=== PATIENT | male | born 1970 | race Caucasian/White ===

== ENCOUNTER 2020-05-02 12:05 | Outpatient (REF) | payer MEDICARE, MEDICAID, SELFPAY ==
--- NOTE | 2020-05-02 12:14 | XR_ITS ---
EXAMINATION: XR HIP, RIGHT CLINICAL INFORMATION: Evaluate for arthritis COMPARISON: Previous x-ray most recent March 2018 TECHNIQUE: Two views the of the right hip and one view of the pelvis. FINDINGS: No fracture or dislocation is seen. There is increasing moderate to severe arthritis of the right hip joint with joint space narrowing, osteophyte formation and subchondral cyst formation. This is significantly increased from 2018 exam. There is mild arthritis at the left hip joint with joint space narrowing and osteophyte formation. Bones of the pelvis are unremarkable. There may be a transitional vertebral body segment or sacralization of the L5 transverse processes. Soft tissues are unremarkable. IMPRESSION: Significant interval increase in right hip arthritis from 2018 exam.
== END 2020-05-02 12:06 | disposition home or self-care (01) ==
LOC: HO.XRAY 12:05
PROVIDERS: PCP Family Medicine; Visit Provider Physical Medicine & Rehabilitation
DX: M16.11 Unilateral primary osteoarthritis, right hip (principal)
CPT/HCPCS: 73502

== ENCOUNTER → 2020-05-22 14:23 | Outpatient (BNVA) | payer MEDICARE, MEDICAID, SELFPAY | PROVIDERS: PCP Family Medicine; Visit Provider Surgery | DX: M25.551 Pain in right hip (principal); G89.29 Other chronic pain; Z87.19 Personal history of other diseases of the digestive system | CPT/HCPCS: 99212 ==

== ENCOUNTER 2020-07-26 19:37 | Emergency (ER) | payer MEDICARE, MEDICAID, SELFPAY ==
--- NOTE | 2020-07-26 | ECG_ITS ---
Test Reason : CP Blood Pressure : / mmHG Vent. Rate : 058 BPM Atrial Rate : 058 BPM P-R Int : 150 ms QRS Dur : 102 ms QT Int : 444 ms P-R-T Axes : 066 044 035 degrees QTc Int : 435 ms Sinus bradycardia Possible Left atrial enlargement Incomplete right bundle branch block Borderline ECG When compared with ECG of 29-SEP-2015 12:39, No significant change was found Referred By: Klesie Bolanos Electronically Signed By:Vin Wright
[2020-07-26 19:41] VITALS: BP 137/79; PULSE 63; RESP 16; TEMP 36.5; O2SAT 97; BMI 25.2
--- NOTE | 2020-07-26 19:42 | XR_ITS ---
EXAMINATION: XR CHEST CLINICAL INFORMATION: Chest pain. COMPARISON: Chest and rib radiographs dated 03/19/2010. TECHNIQUE: Frontal view of the chest was obtained. FINDINGS: No focal airspace consolidation. No pleural effusion or pneumothorax. Unremarkable cardiomediastinal silhouette. No acute osseous abnormality. XR/XR chest 1V IMPRESSION: Unremarkable examination.
--- NOTE | 2020-07-26 19:44 | ED_ITS ---
HPI - Chest Pain General Chief Complaint: Chest Pain Stated Complaint: CP Time Seen by Provider: 07/26/20 19:44 Source: patient and EMS Mode of arrival: EMS Limitations: no limitations History of Present Illness MD complaint: chest pain Pertinent past history: other (started 2 hours after using cocaine) Onset (ago): minute(s) (20 minutes prior to arrival ) Timing of current episode: constant Prior episodes: No Onset: associated with drug use Pain location: left chest Pain radiation: none Severity: moderate Quality: heaviness Relieving factors: nothing Exacerbating factors: nothing Associated symptoms: dyspnea Treatment prior to arrival: aspirin (324mg with EMS) Related Data Home Medications Medication Instructions Recorded Confirmed clonazepam 1 mg tablet 1 mg PO QAM 05/22/20 gabapentin 600 mg tablet 600 mg PO TID 05/22/20 methadone 40 mg soluble tablet 50 mg PO DAILY tab 05/22/20 Allergies Allergy/AdvReac Type Severity Reaction Status Date / Time No Known Allergies Allergy Verified 05/22/20 14:32 Review of Systems Review of Systems: Constitutional : No Weight loss, No Fever, No Chills ENT/Mouth : No sore throat, No Rhinorrhea Eyes: No Eye Pain, No Swelling Cardiovascular : pos Chest Pain, pos SOB, no Dyspnea on Exertion, No Orthopnea, No Edema, No Palpitations Respiratory : No Cough, No Sputum Gastrointestinal : pos Nausea, No Vomiting, No Diarrhea, No abdominal Pain, No Hematochezia, No Melena Genitourinary : No Dysuria, No Urinary Frequency Musculoskeletal : No joint pain, No Myalgias, No Joint Swelling Skin : No Skin Lesions, No rash Neuro : No Weakness, No Numbness, No Dizziness, No Headache Psych : pos Anxiety/Panic, No Depression Heme/Lymph: No Bruising, No Lymphadenopathy Endocrine : No Polyuria, No Polydipsia All other systems reviewed and are negative PMFSH Past Medical History Attestation statement: The following information was validated with the patient. Source: old records reviewed Medical History Anxiety Chronic anemia Chronic back pain Chronic right hip pain Degenerative disc disease History of alcohol abuse History of hepatitis C Surgical History History of laminectomy History of right inguinal hernia repair Social History Social History (Updated 07/26/20 @ 19:45 by Kelsie Bolanos DO) Alcohol intake: former Smoking Status: Current every day smoker Use of substances other than those prescribed or required for medical reasons: Yes Substance Use Type: Amphetamines and Crack/Cocaine Advance Directives: No Advance Directives Information Provided: Yes Physical Exam Vital Signs: Vital Signs: Last Vital Signs Temp 97.5 F 07/26/20 22:36 Pulse 46 L 07/26/20 22:36 Resp 16 07/26/20 22:36 BP 134/74 07/26/20 22:36 Pulse Ox 100 07/26/20 22:36 Body Mass Index 25.2 Appearance: Alert. Oriented X3. No acute distress. Anxious intermittent a gitation Eyes: Pupils equal, round and reactive to light. ENT: Pharynx normal. Neck: Normal inspection. Neck supple. CVS: Normal heart rate and rhythm. Pulses normal. Respiratory: No respiratory distress. Breath sounds normal. Abdomen: Soft and non-tender. Skin: Skin warm and dry. Normal skin color. Normal skin turgor. Extremities: No lower extremity edema. No calf ttp Neuro: Oriented X 3. No motor deficit. No sensory deficit. Course Course Course Narrative: delta troponin negative, stable for DC, improved with ativan MDM - Chest Pain MDM Narrative Medical decision making narrative: 50 yo male with substance abuse issues, chronic pain syndrome, here with chest pain after using cocaine 2 hours ago - his lung are clear VS stable, not tachycardic, given ASA by EMS at this time will obtain troponin x 2, CXR, ddimer, CXR, IV ativan for anxiety, no radiation to pain distal pulses intact dissection seems unlikey and he is not HTNive or tachycardic on arrival Lab Data Result diagrams: 07/26/20 19:50 07/26/20 19:50 Labs: Lab Results 07/26/20 07/26/20 07/26/20 Range/Units 19:50 19:50 19:50 WBC 4.6 L (4.8-10.8) X10*3/uL RBC 4.62 (4.60-5.80) X10*6/uL Hgb 13.8 L (14.0-18.0) g/dl Hct 42.5 (42-52) % MCV 92.0 (80-98) fL MCH 29.9 (27.0-33.0) pg MCHC 32.5 (31.0-36.0) g/dl RDW 11.8 (11.0-16.0) % Plt Count 117 L (160-400) X10*3/uL MPV 10.7 (9.4-12.4) fL Immature Gran % (Auto) 0.7 H (0.0-0.4) % Neut % (Auto) 71.7 (45-73) % Lymph % (Auto) 17.1 L (20-40) % [place] % (Auto) 9.9 (2-11) % Eos % (Auto) 0.4 (0-4) % Baso % (Auto) 0.2 (0-2) % Lymph # (Auto) 0.8 L (1.2-4.9) X10*3/uL [place] # (Auto) 0.5 (0.1-1.2) X10*3/uL Eos # (Auto) 0.0 (0.0-0.4) X10*3/uL Baso # (Auto) 0.0 (0.0-0.2) X10*3/uL Abs Immat Gran (auto) 0.03 (0.00-0.03) X10*3/uL Absolute Neuts (auto) 3.3 (2.0-8.3) X10*3/uL Absolute Nucleated RBC 0.000 (0.0-0.012) X10*3/uL Nucleated RBC % (auto) 0.0 (0.0-0.2) /100WBC Smear Tech's Comments VERIFIED PT Cancelled INR Cancelled APTT Cancelled D-Dimer Cancelled Sodium 141 (135-145) mmol/L Potassium 4.0 (3.3-5.1) mmol/l Chloride 102 (96-108) mmol/L Carbon Dioxide 30 H (22-29) mmol/L Anion Gap 13 (12-20) BUN 14 (9-16) mg/dL Creatinine 1.00 (0.5-1.4) mg/dL Estim Creat Clear Calc 92.0 Estimated GFR > 60 Random Glucose 106 (60-115) mg/dL Calcium 8.8 (8.4-10.2) mg/dL Magnesium 1.6 (1.6-2.6) mg/dL Total Bilirubin < 0.2 (0.0-1.0) mg/dL Direct Bilirubin < 0.2 (0.0-0.5) mg/dL AST 22 (5-37) U/L ALT 17 (0-40) U/L Alkaline Phosphatase 134 H (39-117) U/L Total Creatine Kinase 102 (38-174) U/L Troponin I High Sens (<3.5-35.0) ng/L Total Protein 7.4 (6.5-8.0) g/dL Albumin 4.7 (3.5-5.0) g/dL Lipase 22 (8-78) U/L Ethyl Alcohol mg/dL COVID-19 ([facility]) (Negative) COVID-19 Clin Com 07/26/20 07/26/20 07/26/20 Range/Units 19:50 19:50 19:50 WBC (4.8-10.8) X10*3/uL RBC (4.60-5.80) X10*6/uL Hgb (14.0-18.0) g/dl Hct (42-52) % MCV (80-98) fL MCH (27.0-33.0) pg MCHC (31.0-36.0) g/dl RDW (11.0-16.0) % Plt Count (160-400) X10*3/uL MPV (9.4-12.4) fL Immature Gran % (Auto) (0.0-0.4) % Neut % (Auto) (45-73) % Lymph % (Auto) (20-40) % [place] % (Auto) (2-11) % Eos % (Auto) (0-4) % Baso % (Auto) (0-2) % Lymph # (Auto) (1.2-4.9) X10*3/uL [place] # (Auto) (0.1-1.2) X10*3/uL Eos # (Auto) (0.0-0.4) X10*3/uL Baso # (Auto) (0.0-0.2) X10*3/uL Abs Immat Gran (auto) (0.00-0.03) X10*3/uL Absolute Neuts (auto) (2.0-8.3) X10*3/uL Absolute Nucleated RBC (0.0-0.012) X10*3/uL Nucleated RBC % (auto) (0.0-0.2) /100WBC Smear Tech's Comments PT INR APTT D-Dimer Sodium (135-145) mmol/L Potassium (3.3-5.1) mmol/l Chloride (96-108) mmol/L Carbon Dioxide (22-29) mmol/L Anion Gap (12-20) BUN (9-16) mg/dL Creatinine (0.5-1.4) mg/dL Estim Creat Clear Calc Estimated GFR Random Glucose (60-115) mg/dL Calcium (8.4-10.2) mg/dL Magnesium (1.6-2.6) mg/dL Total Bilirubin (0.0-1.0) mg/dL Direct Bilirubin (0.0-0.5) mg/dL AST (5-37) U/L ALT (0-40) U/L Alkaline Phosphatase (39-117) U/L Total Creatine Kinase (38-174) U/L Troponin I High Sens 4.8 (<3.5-35.0) ng/L Total Protein (6.5-8.0) g/dL Albumin (3.5-5.0) g/dL Lipase (8-78) U/L Ethyl Alcohol < 10 mg/dL COVID-19 ([facility]) Positive A (Negative) COVID-19 Clin Com See Note 07/26/20 07/26/20 Range/Units 20:45 22:43 WBC (4.8-10.8) X10*3/uL RBC (4.60-5.80) X10*6/uL Hgb (14.0-18.0) g/dl Hct (42-52) % MCV (80-98) fL MCH (27.0-33.0) pg MCHC (31.0-36.0) g/dl RDW (11.0-16.0) % Plt Count (160-400) X10*3/uL MPV (9.4-12.4) fL Immature Gran % (Auto) (0.0-0.4) % Neut % (Auto) (45-73) % Lymph % (Auto) (20-40) % [place] % (Auto) (2-11) % Eos % (Auto) (0-4) % Baso % (Auto) (0-2) % Lymph # (Auto) (1.2-4.9) X10*3/uL [place] # (Auto) (0.1-1.2) X10*3/uL Eos # (Auto) (0.0-0.4) X10*3/uL Baso # (Auto) (0.0-0.2) X10*3/uL Abs Immat Gran (auto) (0.00-0.03) X10*3/uL Absolute Neuts (auto) (2.0-8.3) X10*3/uL Absolute Nucleated RBC (0.0-0.012) X10*3/uL Nucleated RBC % (auto) (0.0-0.2) /100WBC Smear Tech's Comments PT 14.4 H INR 1.2 H APTT 32.8 D-Dimer < 200 Sodium (135-145) mmol/L Potassium (3.3-5.1) mmol/l Chloride (96-108) mmol/L Carbon Dioxide (22-29) mmol/L Anion Gap (12-20) BUN (9-16) mg/dL Creatinine (0.5-1.4) mg/dL Estim Creat Clear Calc Estimated GFR Random Glucose (60-115) mg/dL Calcium (8.4-10.2) mg/dL Magnesium (1.6-2.6) mg/dL Total Bilirubin (0.0-1.0) mg/dL Direct Bilirubin (0.0-0.5) mg/dL AST (5-37) U/L ALT (0-40) U/L Alkaline Phosphatase (39-117) U/L Total Creatine Kinase (38-174) U/L Troponin I High Sens 7.0 (<3.5-35.0) ng/L Total Protein (6.5-8.0) g/dL Albumin (3.5-5.0) g/dL Lipase (8-78) U/L Ethyl Alcohol mg/dL COVID-19 ([facility]) (Negative) COVID-19 Clin Com ECG Data ECG #1: Attestation: I personally reviewed and interpreted this ECG as follows: ECG interpretation date: 07/26/20 ECG interpretation time: 19:48 Interpretation: Rate: 58 Rhythm: sinus bradycardia [facility]: normal Normal P waves. Normal EMIR. incomplete RBBB ST T wave : no KARO qTC: normal prior studies: no acute ischemia The study has been interpreted contemporaneously by me. . Discharge Plan Discharge Clinical Impression: Atypical chest pain, COVID-19, Cocaine abuse Patient Disposition: Home, Self-Care Instructions: Chest Pain (ED), Cocaine Abuse (ED), COVID-19 (Coronavirus D isease 2019) (ED) Additional Instructions: return to ED for any worsening symptoms or concerns Prescriptions: No Action clonazepam 1 mg tablet 1 mg PO QAM RF: 0 gabapentin 600 mg tablet 600 mg PO TID RF: 0 methadone 40 mg tablet,soluble 50 mg PO DAILY RF: 0 Stand Alone Forms: Work/School Release
[2020-07-26] MEDS: ondansetron HCL 4 MG/2 ML VIAL IVPUSH (19:52)
[2020-07-26] MEDS: 0.9 % Sodium Chloride 1,000 ML 999 ML IVCONT ×2 (19:52→22:12)
[2020-07-26] MEDS: LORazepam 2 MG/ML VIAL 1 MG IVPUSH (19:53)
[2020-07-26 20:00] LABS: Basophils Percent Auto 0.2 % (0-2); Eosinophils Percent Auto 0.4 % (0-4); Hemoglobin 13.8 g/dl (14.0-18.0); MANUAL DIFF FLAG SCAN; PLT CLUMP 1; Red Cell Distribution Width 11.8 % (11.0-16.0); SCAN SMEAR FLAG 1
[2020-07-26 20:03] LABS: Hematocrit 42.5 % (42-52); Imm Gran Abs Auto 0.03 X10*3/uL (0.00-0.03); Imm Gran Pct Auto 0.7 % (0.0-0.4); Lymphocytes Absolute Auto 0.8 X10*3/uL (1.2-4.9); Lymphocytes Percent Auto 17.1 % (20-40); Mean Corpuscular HGB Conc 32.5 g/dl (31.0-36.0); Mean Corpuscular Hemoglobin 29.9 pg (27.0-33.0); Mean Platelet Volume 10.7 fL (9.4-12.4); Monocytes Absolute Auto 0.5 X10*3/uL (0.1-1.2); Monocytes Percent Auto 9.9 % (2-11); Neutrophils Absolute Auto 3.3 X10*3/uL (2.0-8.3); Neutrophils Percent Auto 71.7 % (45-73); Platelet Count 117 X10*3/uL (160-400); Red Blood Count 4.62 X10*6/uL (4.60-5.80); White Blood Count 4.6 X10*3/uL (4.8-10.8)
[2020-07-26 20:04] LABS: COVID-19 Test Positive (Negative)
[2020-07-26 20:20] LABS: Ethanol < 10 mg/dL
--- NOTE | 2020-07-26 20:21 | MHC.RECOVSUP ---
Reason for consult o Current location: o Identified substance use concern: Cocaine - - - - Support ? Intervention: o o o Community resources provided o Harm reduction discussion ? Plan: o o o Follow up tomorrow o o Patient to follow up with H after discharge ? Additional information: I was able to speak with pt about recovery and harm reduction. pt came in with medical conditions but requested to speak with someone who could identify with him pertaining to his drug use. pt not interested in ATS but was receptive to recovery information and is open to vivitrol. couldn't continue talking with him because he was taken to Covid section.
[2020-07-26 20:31] LABS: Alanine Aminotransferase 17 U/L (0-40); Albumin Level 4.7 g/dL (3.5-5.0); Alkaline Phosphatase 134 U/L (39-117); Anion Gap 13 (12-20); Aspartate Amino Transferase 22 U/L (5-37); Bilirubin Direct < 0.2 mg/dL (0.0-0.5); Bilirubin Total < 0.2 mg/dL (0.0-1.0); Blood Urea Nitrogen 14 mg/dL (9-16); Calcium 8.8 mg/dL (8.4-10.2); Carbon Dioxide 30 mmol/L (22-29); Chloride 102 mmol/L (96-108); Estimated Glomerular Filt Rate > 60; Glucose Random 106 mg/dL (60-115); Lipase 22 U/L (8-78); Magnesium 1.6 mg/dL (1.6-2.6); Sodium 141 mmol/L (135-145); Total Protein 7.4 g/dL (6.5-8.0)
[2020-07-26 20:35] LABS: SLIDE REVIEW VERIFIED; Troponin-I High Sensitivity 4.8 ng/L (<3.5-35.0)
[2020-07-26 20:36] VITALS: BP 112/61; PULSE 45; RESP 14
--- NOTE | 2020-07-26 20:38 | PC.NURSE ---
sleeping after arrival to E3, covid isolation. SB on monitor. skin pwd. no diahoresis. arousable to light touch. pupils 5mm, sluggish. aware of need for lab redraw.
[2020-07-26 20:58] LABS: INTERNATIONAL NORM RATIO 1.2 (0.9-1.1); Prothrombin Time 14.4 SEC (10.8-13.0)
[2020-07-26 21:01] LABS: Partial Thromboplastin Time 32.8 SEC (24.1-38.0)
[2020-07-26 21:06] LABS: D Dimer < 200 NG/ML
[2020-07-26 21:30] VITALS: BP 103/55; PULSE 41; RESP 16; O2SAT 98
--- NOTE | 2020-07-26 22:08 | PC.NURSE ---
sleeping. skin pwd/ arrousable to light touch.
[2020-07-26 22:36] VITALS: BP 134/74; PULSE 46; RESP 16; TEMP 36.4; O2SAT 100
[2020-07-26 23:34] VITALS: BP 126/68; PULSE 47; RESP 16; O2SAT 97
== END 2020-07-26 23:30 | disposition home or self-care (01) ==
PROVIDERS: Emergency Provider Emergency Medicine
DX: U07.1 COVID-19 (principal); R07.89 Other chest pain; F14.10 Cocaine abuse, uncomplicated; F17.200 Nicotine dependence, unspecified, uncomplicated
CPT/HCPCS: 36415; 71045; 80048; 80076; 80320; 82550; 83690; 83735; 84484; 85025; 85379; 85610; 85730; 87635; 93005; 96361; 96374; 96375; 99284; J2060; J2405

== ENCOUNTER 2021-05-29 10:01 | Outpatient (REF) | payer MEDICARE, MEDICAID, SELFPAY | END 2021-05-29 10:02 | disposition home or self-care (01) | LOC: HO.HOSX 10:01 | PROVIDERS: Visit Provider Physician Assistant | DX: Z13.89 Encounter for screening for other disorder (principal) ==

== ENCOUNTER 2021-06-15 13:27 | Emergency (ER) | payer MEDICARE, MEDICAID, SELFPAY ==
--- NOTE | ~2021-06-15 | CT_ITS ---
EXAMINATION: CT HIP WITHOUT CONTRAST, RIGHT CLINICAL INFORMATION: Right hip pain, status post fall. COMPARISON: None TECHNIQUE: 2 minutes thin axial and reformatted 1 mm thin sagittal and coronal images of right hip were obtained. This CT examination was performed using dose optimization techniques as appropriate, variously including the following: *Automated exposure control *Adjustment of mA and/or kV according to patient size (this includes techniques or standardized protocols for targeted exams where dose is matched to indication/reason for exam; i.e. extremities or head) *Use of iterative reconstruction technique DLP: 311 mGy-cm FINDINGS: There is mild loss of right hip joint space with subchondral cystic changes consistent with advanced osteoarthritis. There is no visible acute fracture, dislocation or deformity involving the femoral head. Visualized right pelvic bones and pubic symphysis appears normal. There are hyperdense areas seen in the right lateral hip musculature likely tensor fascia nkechi consistent with hemorrhagic contusion. Also visualized is mild soft tissue edema lateral hip. CT/CT hip RT wo con IMPRESSION: Degenerative arthritic changes right hip joint. No visible acute fracture or dislocation. Hemorrhagic contusion right tensor fascia nkechi and mild soft tissue swelling lateral hip.
[2021-06-15 13:39] VITALS: BP 148/70; PULSE 86; RESP 18; TEMP 36.8; O2SAT 98; BMI 25.1
--- NOTE | 2021-06-15 13:41 | ED_ITS ---
HPI - Fall General Chief Complaint: Fall Stated Complaint: FALL W/R HIP PAIN, HX OF HIP PAIN W/PLANNED SURG Time Seen by Provider: 06/15/21 13:40 Source: patient Mode of arrival: ambulatory Limitations: no limitations History of Present Illness complaint: fall Onset (ago): day(s) (3) Fall from: standing Fall witnessed: no Place fall occurred: home Loss of consciousness: none Prolonged down time: no Symptoms prior to fall: none Context: tripped/slipped Location of injury: pelvis (R hip/ buttock) Severity: moderate Quality: aching Associated symptoms (after fall): other (hard to walk now reports a big bruise in area) Related Data Home Medications Medication Instructions Recorded Confirmed clonazepam 1 mg tablet 1 mg PO QAM 05/22/20 gabapentin 600 mg tablet 600 mg PO TID 05/22/20 methadone 40 mg soluble tablet 50 mg PO DAILY tab 05/22/20 Previous Rx's Medication Instructions Recorded morphine 15 mg immediate release 15 mg PO Q6H PRN 2 Days #8 tab 06/15/21 tablet Allergies Allergy/AdvReac Type Severity Reaction Status Date / Time No Known Allergies Allergy Verified 05/22/20 14:32 Review of Systems Review of Systems: Constitutional : No Fever, No Chills ENT/Mouth : No Ear Pain, No Hoarseness, No sore throat Eyes: No Eye Pain, No Swelling, No Redness, No Foreign Body Cardiovascular : No Chest Pain, No SOB Respiratory : No Cough, No Dyspnea Gastrointestinal : No Nausea, No Vomiting, No Diarrhea, No abdominal Pain Genitourinary : No Dysuria, No Hematuria Musculoskeletal : positive joint pain, No Myalgias, No Joint Swelling Skin : No Skin lacerations, No rash, pos contusion Neuro : No Weakness, No Numbness, No Loss of Consciousness, No Dizziness, No Headache Psych : No Anxiety/Panic, No Depression Heme/Lymph: no easy bruising, no Lymphadenopathy Endocrine : No Polyuria, No Polydipsia All other systems reviewed and are negative [facility] Past Medical History Attestation statement: The following information was validated with the patient. Medical History Anxiety Chronic anemia Chronic back pain Chronic right hip pain Degenerative disc disease History of alcohol abuse History of hepatitis C Surgical History History of laminectomy History of right inguinal hernia repair Social History Social History (Updated 06/15/21 @ 13:42 by Kelsie Bolanos DO) Alcohol intake: never Patient Tobacco Use Status: Tobacco use Unknown Use of substances other than those prescribed or required for medical reasons: No Substance Use Type: Amphetamines and Crack/Cocaine Advance Directives: No Advance Directives Information Provided: No Physical Exam Vital Signs: Vital Signs: Last Vital Signs Temp 98.3 F 06/15/21 13:39 Pulse 86 06/15/21 13:39 Resp 18 06/15/21 13:39 BP 148/70 H 06/15/21 13:39 Pulse Ox 98 06/15/21 13:39 Body Mass Index 25.1 Appearance: Alert. Oriented X3. No acute distress. Eyes: Pupils equal, round and reactive to light. ENT: Pharynx normal. Neck: Normal inspection. Neck supple. CVS: Normal heart rate and rhythm. Pulses normal. Respiratory: No respiratory distress. Breath sounds normal. Abdomen: Soft and nontender. Buttock: large contusion on R buttock near sacrum as well Skin: Skin warm and dry. Normal skin color. Normal skin turgor. Extremities: No lower extremity edema. R hip moderate ttp limping gait Neuro: Oriented X 3. No motor deficit. No sensory deficit. Course Course Course Narrative: no fracture it is a hip contusion, H/H 10.6 no need for transfusion will DC him home and instruct repeat CBC in 48 hours with PCP MDM - Fall MDM Narrative Medical decision making narrative: 51 yo male with PMH of arthritis, hep C, anxiety here after mechanical fall at this time reports R hip pain with contusion will need cbc, CT scan for fracture / hematoma size PO medications he is on methadone at this time. Dispo per results and findings. Lab Data Result diagrams: 06/15/21 13:58 Labs: Lab Results 06/15/21 Range/Units 13:58 WBC 6.0 (4.8-10.8) X10*3/uL RBC 3.63 L (4.60-5.80) X10*6/uL Hgb 10.6 L (14.0-18.0) g/dl Hct 33.2 L (42.0-52.0) % MCV 91.5 (80.0-98.0) fL MCH 29.2 (27.0-33.0) pg MCHC 31.9 (31.0-36.0) g/dl RDW 11.9 (11.0-16.0) % Plt Count 187 (160-400) X10*3/uL MPV 9.8 (9.4-12.4) fL Absolute Nucleated RBC 0.000 (0.0-0.012) X10*3/uL Nucleated RBC % (auto) 0.0 (0.0-0.2) /100WBC Discharge Plan Discharge Clinical Impression: Contusion of hip Qualifiers: Encounter type: initial encounter Laterality: right Qualified Code(s): S70.01XA - Contusion of right hip, initial encounter Patient Disposition: Home, Self-Care Instructions: Hip Contusion (ED) Additional Instructions: return to ED for any worsening symptoms or concerns hemoglobin 10.6 - repeat CBC with primary care in 2 days Prescriptions: New morphine 15 mg tablet 15 mg PO Q6H PRN (Reason: pain) 2 Days Qty: 8 RF: 0 No Action clonazepam 1 mg tablet 1 mg PO QAM RF: 0 gabapentin 600 mg tablet 600 mg PO TID RF: 0 methadone 40 mg tablet,soluble 50 mg PO DAILY RF: 0 Referrals: Zahraa Roca DO [Primary Care Provider] - 2 days
[2021-06-15] MEDS: Morphine Sulfate Immed Release 15 MG TABLET PO (13:54)
[2021-06-15 14:03] LABS: Hematocrit 33.2 % (42.0-52.0); Hemoglobin 10.6 g/dl (14.0-18.0); Mean Corpuscular HGB Conc 31.9 g/dl (31.0-36.0); Mean Corpuscular Hemoglobin 29.2 pg (27.0-33.0); Mean Corpuscular Volume 91.5 fL (80.0-98.0); Mean Platelet Volume 9.8 fL (9.4-12.4); Platelet Count 187 X10*3/uL (160-400); Red Blood Count 3.63 X10*6/uL (4.60-5.80); Red Cell Distribution Width 11.9 % (11.0-16.0)
[2021-06-15] MEDS: clonazePAM 1 MG TABLET PO (15:56)
== END 2021-06-15 17:09 | disposition home or self-care (01) ==
PROVIDERS: Emergency Provider Emergency Medicine; PCP Family Medicine
DX: S70.01XA Contusion of right hip, initial encounter (principal); W19.XXXA Unspecified fall, initial encounter; Y93.9 Activity, unspecified; Y92.039 Unspecified place in apartment as the place of occurrence of the external cause; Y99.9 Unspecified external cause status
CPT/HCPCS: 36415; 73700; 85027; 99284

== ENCOUNTER 2021-06-29 08:33 | Outpatient (REF) | payer MEDICARE, MEDICAID, SELFPAY | END 2021-06-29 08:34 | disposition home or self-care (01) | LOC: HO.HOSX 08:33 | PROVIDERS: Visit Provider Orthopaedic Surgery | DX: Z13.89 Encounter for screening for other disorder (principal) ==

== ENCOUNTER → 2021-07-16 12:51 | Outpatient (BNVA) | payer MEDICARE, MEDICAID, SELFPAY | PROVIDERS: PCP Family Medicine; Visit Provider Orthopaedic Surgery | DX: M16.11 Unilateral primary osteoarthritis, right hip (principal) | CPT/HCPCS: 99202 ==

== ENCOUNTER 2021-10-05 10:59 | Emergency (ER) | payer MEDICARE, MEDICAID, SELFPAY ==
--- NOTE | ~2021-10-05 | XR_ITS ---
EXAMINATION: XR WRIST, RIGHT CLINICAL INFORMATION: Fall. Pain. COMPARISON: Previous x-ray March 2019 TECHNIQUE: PA, lateral, and oblique views of the right wrist. FINDINGS: No acute fracture or dislocation is seen. There is accessory ossification center versus old ununited fracture of the ulnar styloid. There is arthritis at the radiocarpal joint with joint space narrowing and osteophyte formation. There may be dorsal tilt of the lunate and ulnar minus variance. Soft tissues are unremarkable. XR/XR wrist RT 2V IMPRESSION: No acute fracture or dislocation. Degenerative changes at the radiocarpal joint. Question dorsal tilt of the lunate.
[2021-10-05 11:40] VITALS: BP 113/58; RESP 16; TEMP 36.3; O2SAT 97; BMI 25.1
--- NOTE | 2021-10-05 11:41 | ED_ITS ---
HPI - Extremity Problem General Chief complaint: Extremity Injury, Upper Stated complaint: r wrist inj Time Seen by Provider: 10/05/21 11:41 Source: patient Mode of arrival: ambulatory Limitations: no limitations History of Present Illness HPI Narrative: wrist pain 5 months ago, patient fell 5 months ago Complaint: extremity pain Onset (ago): month(s) Pain Consistency: constant Location: right Associated symptoms: denies other symptoms Related Data Home Medications Medication Instructions Recorded Confirmed clonazepam 1 mg tablet 1 mg PO QAM 05/22/20 gabapentin 600 mg tablet 600 mg PO TID 05/22/20 methadone 40 mg soluble tablet 50 mg PO DAILY tab 05/22/20 Previous Rx's Medication Instructions Recorded morphine 15 mg immediate release 15 mg PO Q6H PRN 2 Days #8 tab 06/15/21 tablet naproxen 500 mg tablet (Naprosyn) 500 mg PO BID #20 tab 10/05/21 Allergies Allergy/AdvReac Type Severity Reaction Status Date / Time No Known Allergies Allergy Verified 07/16/21 13:00 Review of Systems Constitutional: Constitutional: Reports no additional constitutional complaints Eyes: Eyes: Reports no additional eye complaints ENT: Denies dizziness Cardiovascular: Cardiovascular: Reports no additional cardiovascular complaints Respiratory: Respiratory: Reports as per HPI Gastrointestinal: Gastrointestinal: Reports no additional gastrointestinal complaints Musculoskeletal: Musculoskeletal: Reports no additional musculoskeletal complaints Integumentary/Breasts: Skin/Breast: Denies rash Neurologic: Reports system reviewed and no additional complaints, except as documented, Denies dizziness and Denies Sensory deficit (Neuro) Psychiatric: Psychiatric: Denies anxiety PMFSH Past Medical History Medical History Anxiety Chronic anemia Chronic back pain Chronic right hip pain Degenerative disc disease History of alcohol abuse History of hepatitis C Surgical History History of laminectomy History of right inguinal hernia repair Social History Social History Alcohol intake: never Patient Tobacco Use Status: Tobacco use Unknown Substance Use Type: Amphetamines and Crack/Cocaine Advance Directives: No Advance Directives Information Provided: No Physical Exam Vital Signs: Vital Signs: Last Vital Signs Temp 97.4 F 10/05/21 11:40 Resp 16 10/05/21 11:40 BP 113/58 L 10/05/21 11:40 Pulse Ox 97 10/05/21 11:40 BMI result Body Mass Index 25.1 Const: General: healthy appearing Nutritional Appearance: average body hab itus Orientation/consciousness: oriented to person and patient oriented x3 Limitations: no limitations HENMT: Head: Yes normal to inspection Ears: external ears normal General nose exam: Normal external nose present Mouth: Normal oral and palatal mucosa present and oropharynx normal Throat: Yes posterior oropharynx normal Eyes: General: appearance normal, both eyes and all related structures Neck: Other: supple Neck: Yes normal visual inspection GI: Inspection: Yes normal to inspection Palpation (GI): Soft to palpation, nontender and No hepatosplenomegaly present Auscultation: normal bowel sounds : General: Yes no CVA tenderness Back/Spine/Pelvis: Back: no CVA tenderness Skin: General skin exam: no rashes or lesions noted Neuro: General: oriented to person and patient oriented x3 Cranial nerves: Yes CN's II-XII intact bilaterally Motor exam (neuro): 5/5 motor strength present throughout Sensory Exam: No Sensory deficit (Neuro) Extrem: Other: right wrist with slight swelling and tenderness, no erythema Psych: Appearance: grossly normal Course Reevaluation(s) Reevaluation #1: No healed fracture. There is arthritis to the wrist Time: 12:37 MDM - Extremity (Nontraumatic) Imaging Data wrist: Radiologist's impression: IMPRESSION: No acute fracture or dislocation. Degenerative changes at the radiocarpal joint. Question dorsal tilt of the lunate. Discharge Plan Discharge Clinical Impression: Arthritis of right wrist Patient Disposition: Home, Self-Care Instructions: Osteoarthritis (DC) Prescriptions: New naproxen [Naprosyn] 500 mg tablet 500 mg PO BID Qty: 20 0RF No Action morphine 15 mg tablet 15 mg PO Q6H PRN (Reason: pain) 2 Days Qty: 8 0RF clonazepam 1 mg tablet 1 mg PO QAM 0RF gabapentin 600 mg tablet 600 mg PO TID 0RF methadone 40 mg tablet,soluble 50 mg PO DAILY 0RF Referrals: Zahraa Roca DO [Primary Care Provider] - 10 days Jones Nichols MD [Physician] - 10 days
== END 2021-10-05 13:10 | disposition home or self-care (01) ==
PROVIDERS: Emergency Provider Emergency Medicine; PCP Family Medicine
DX: M19.031 Primary osteoarthritis, right wrist (principal); M25.531 Pain in right wrist; B19.20 Unspecified viral hepatitis C without hepatic coma; F10.10 Alcohol abuse, uncomplicated; Y90.9 Presence of alcohol in blood, level not specified
CPT/HCPCS: 73100; 99283

== ENCOUNTER → 2021-10-06 09:42 | Outpatient (BNVA) | payer MEDICARE, MEDICAID, SELFPAY | PROVIDERS: PCP Family Medicine; Visit Provider Orthopaedic Surgery | DX: Z13.89 Encounter for screening for other disorder (principal) ==

== ENCOUNTER → 2021-10-22 09:41 | Outpatient (BNVA) | payer MEDICARE, MEDICAID, SELFPAY | PROVIDERS: PCP Family Medicine; Visit Provider Physician Assistant | DX: Z13.89 Encounter for screening for other disorder (principal) ==

== ENCOUNTER 2021-12-23 | Outpatient (REF) | payer MEDICARE, MEDICAID, SELFPAY | END 2021-12-23 00:01 | LOC: CF | PROVIDERS: PCP Family Medicine; Visit Provider Physician Assistant | DX: M16.11 Unilateral primary osteoarthritis, right hip (principal); G89.29 Other chronic pain; M54.9 Dorsalgia, unspecified; F10.11 Alcohol abuse, in remission; F14.20 Cocaine dependence, uncomplicated; Z86.19 Personal history of other infectious and parasitic diseases | CPT/HCPCS: 99212 ==

== ENCOUNTER 2022-04-12 10:55 | Outpatient (REF) | payer MEDICARE, MEDICAID, SELFPAY ==
[2022-04-12 11:17] LABS: MANUAL DIFF FLAG NO
[2022-04-12 11:43] LABS: Basophils Percent Auto 0.3 % (0-2); Eosinophils Percent Auto 0.3 % (0-4); Hemoglobin 12.9 g/dl (14.0-18.0); Imm Gran Abs Auto 0.07 X10*3/uL (0.00-0.03); Imm Gran Pct Auto 0.6 % (0.0-0.4); Lymphocytes Absolute Auto 0.9 X10*3/uL (1.2-4.9); Lymphocytes Percent Auto 7.9 % (20-40); Mean Corpuscular HGB Conc 33.1 g/dl (31.0-36.0); Mean Corpuscular Hemoglobin 29.5 pg (27.0-33.0); Mean Corpuscular Volume 89.2 fL (80.0-98.0); Mean Platelet Volume 10.6 fL (9.4-12.4); Monocytes Absolute Auto 0.6 X10*3/uL (0.1-1.2); Neutrophils Absolute Auto 10.1 x10*3/uL (2.0-8.3); Neutrophils Percent Auto 85.9 % (45-73); Platelet Count 157 X10*3/uL (160-400); Red Blood Count 4.37 X10*6/uL (4.60-5.80); White Blood Count 11.7 X10*3/uL (4.8-10.8)
[2022-04-12 12:08] LABS: Anion Gap 15 (12-20); Blood Urea Nitrogen 16 mg/dL (9-16); Calcium 9.1 mg/dL (8.4-10.2); Carbon Dioxide 25 mmol/L (22-29); Chloride 101 mmol/L (96-108); Estimated Glomerular Filt Rate > 60; Glucose Random 120 mg/dL (60-115); Sodium 137 mmol/L (135-145)
[2022-04-12 12:30] LABS: Amphetamine Screen Urine Not Detected (Not Detect); Barbiturates, Urine Not Detected (Not Detect); Benzodiazepines Screen Urine Not Detected (Not Detect); Cannabinoid Screen Urine POSITIVE (Not Detect); Cocaine Screen Urine Not Detected (Not Detect); Fentanyl, urine Not Detected (Not Detect); Opiate Screen Urine Not Detected (Not Detect); Phencyclidine Screen Urine Not Detected (Not Detect)
== END 2022-04-12 10:56 | disposition home or self-care (01) ==
LOC: HO.LAB 10:55
PROVIDERS: PCP Family Medicine; Visit Provider Orthopaedic Surgery
DX: Z13.89 Encounter for screening for other disorder (principal)
CPT/HCPCS: 80048; 80307; 85025

== ENCOUNTER 2022-04-12 11:26 | Emergency (ER) | payer MEDICARE, MEDICAID, SELFPAY ==
[2022-04-12 11:57] VITALS: BP 112/70; PULSE 65; RESP 18; TEMP 36.6; O2SAT 97; BMI 26.4
[2022-04-12 13:42] LABS: Appearance Urine Cloudy; Color Urine Yellow; Glucose Urine UA Negative (Negative); Leukocyte Esterase Urine Moderate (2+) (Negative); Nitrite Urine Negative (Negative); PH 5.5 (5.0-9.0); Specific Gravity - Urine >= 1.030 (1.005-1.025); UMIC TRIGGER UACC YES; Urine Blood Large (3+) (Negative); Urine Ketones Negative (Negative); Urine Protein 30 (1+) mg/dL (Neg-Trace)
--- NOTE | 2022-04-12 13:57 | ED.MALEGU ---
HPI - Male Genitourinary General Chief complaint: Urogenital-Male Stated complaint: Blood in urine Time Seen by Provider: 04/12/22 13:54 Source: patient Mode of arrival: ambulatory Limitations: no limitations History of Present Illness HPI Narrative: 52-year-old male presents to the ER for evaluation of painless hematuria that started yesterday. He reports his urine was light pain without any clots. He reports increased urinary frequency and urgency but denies any pain or burning sensation when he urinates. He denies any urethral discharge. No abdominal pain, nausea, vomiting, diarrhea, fever, chills. He has never had hematuria before. He is not on anticoagulation. He is anxious and it may be a cancer in his bladder. His roommate had history of the same. He denies any sexual activity. MD Complaint: other ( Hematuria with increased urinary frequency and urgency.) Onset (ago): hour(s) Duration: intermittent Location: penis Severity: moderate Relieving factors: none Exacerbating factors: urination Associated symptoms: Reports blood in urine Related Data Sexually active: No Home Medications Medication Instructions Recorded Confirmed clonazepam 1 mg tablet 1 mg PO QAM 05/22/20 10/06/21 gabapentin 600 mg tablet 600 mg PO TID 05/22/20 10/06/21 acetaminophen 650 mg 650 mg PO Q6H PRN fever 10/06/21 10/06/21 tablet,extended release amitriptyline 50 mg tablet 50 mg PO BEDTIME 10/06/21 10/06/21 cyclobenzaprine 10 mg tablet 10 mg PO TID PRN muscle spasm 10/06/21 10/06/21 diclofenac sodium 1 % topical gel 2 g topical BID pain 10/06/21 10/06/21 melatonin 5 mg tablet 10 mg PO 10/06/21 10/06/21 methadone 40 mg soluble tablet 70 mg PO DAILY 10/06/21 10/06/21 Previous Rx's Medication Instructions Recorded morphine 15 mg immediate release 15 mg PO Q6H PRN pain 2 days #8 06/15/21 tablet tabs naproxen 500 mg tablet (Naprosyn) 500 mg PO BID #20 tabs 10/05/21 cefuroxime axetil 250 mg tablet 250 mg PO BID 7 days #20 tabs 04/12/22 Allergies Allergy/AdvReac Type Severity Reaction Status Date / Time No Known Allergies Allergy Verified 10/22/21 10:00 Review of Systems Review of Systems: Constitutional: No Fever, No Chills Cardiovascular: No Chest Pain, No SOB Gastrointestinal: No Nausea, No Vomiting, No Diarrhea, No abdominal Pain, No Hematochezia, No Melena Genitourinary: No Dysuria, No Urinary Frequency, + Hematuria Musculoskeletal: No joint pain, No Myalgias Skin: No Skin Lesions, No rash Neuro: No Weakness, No Numbness, No Dizziness, No Headache Psych: + Anxiety/Panic, No Depression Heme/Lymph: No Bruising, No Lymphadenopathy Endocrine: No Polyuria, No Polydipsia [facility] Past Medical History Medical History (Updated 04/12/22 @ 14:49 by ENOC Holman) Anxiety Chronic anemia Chronic back pain Chronic right hip pain COVID-19 vaccine series completed Degenerative disc disease History of alcohol abuse History of COVID-19 History of hepatitis C Hx of substance abuse Surgical History History of laminectomy History of right inguinal hernia repair Social History Social History Alcohol intake: never Patient Tobacco Use Status: Tobacco use Unknown Substance Use Type: Amphetamines and Crack/Cocaine Advance Directives: No Advance Directives Information Provided: No Physical Exam Vital Signs: Vital Signs: Last Vital Signs Temp 97.9 F 04/12/22 11:57 Pulse 65 04/12/22 11:57 Resp 18 04/12/22 11:57 BP 112/70 04/12/22 11:57 Pulse Ox 97 04/12/22 11:57 O2 Del Method 04/12/22 11:57 BMI result Body Mass Index 26.4 Appearance: Alert. Oriented X3. No acute distress. HEENT: normal inspection CVS: Normal heart rate and rhythm. Pulses normal. Respiratory: No respiratory distress. Skin: Skin warm and dry. Normal skin color. Normal skin turgor. No rashes. ABD: Soft, nontender, no suprapubic tenderness. Extremities: Normal inspection, no lower extremity edema Neuro: Oriented X 3. No motor deficit. No sensory deficit. Ambulates with a limp due to left hip pain. Course Course Course Narrative: 52-year-old male presents to the ER for evaluation of painless hematuria that started today. He reports his urine is light pink and does not have any clots. He has no dysuria or pain with urination but reports having to urinate more frequently and with more urgency. He has no other symptoms. He is not sexually active. His lab workup today shows a mild leukocytosis with WBC 11.7. He has normal kidney function. His urinalysis is consistent with infection with 3+ blood and 2+ leukocyte esterase. Will plan to treat for UTI. Unable to get to the pharmacy today, so will give 1st dose here. He is worried he may to have bladder cancer so will give him Dr. Bell number to arrange Urology follow-up if symptoms persist despite treatment with antibiotics. He does not want to stay for a CT scan and needs to be at the bus for 3pm. He was counseled to return to the ER or call his doctor if symptoms persist. Stable for d/c home with PO abx and outpatient follow up. MDM - Male Genitourinary Lab Data Labs: Lab Results 04/12/22 Range/Units 13:32 Urine Color Yellow Urine Appearance Cloudy Urine pH 5.5 (5.0-9.0) Ur Specific [place] >= 1.030 H (1.005-1.025) Urine Protein 30 (1+) H (Neg-Trace) mg/dL Urine Glucose (UA) Negative (Negative) mg/dL Urine Ketones Negative (Negative) mg/dL Urine Blood Large (3+) H (Negative) Urine Nitrite Negative (Negative) Ur Leukocyte Esterase Moderate (2+) H (Negative) Discharge Plan Discharge Clinical Impression: Urinary tract infection, Hematuria Patient Disposition: Home, Self-Care Instructions: Urinary Tract Infection in Men (ED), Hematuria (ED) Additional Instructions: Take the prescribed antibiotic as directed. 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 Your given 1st dose today in the ER. Drink plenty of water and stay hydrated. If this does not resolve with antibiotics, recommend following up with Urology for further evaluation. If you develop any new or worsening symptoms call 911 or come back to the ER for further evaluation Prescriptions: New cefuroxime axetil 250 mg tablet 250 mg PO BID 7 Days Qty: 20 0RF No Action morphine 15 mg tablet 15 mg PO Q6H PRN (Reason: pain) 2 Days Qty: 8 0RF naproxen [Naprosyn] 500 mg tablet 500 mg PO BID Qty: 20 0RF clonazepam 1 mg tablet 1 mg PO QAM gabapentin 600 mg tablet 600 mg PO TID methadone 40 mg tablet,soluble 70 mg PO DAILY amitriptyline 50 mg tablet 50 mg PO BEDTIME cyclobenzaprine 10 mg tablet 10 mg PO TID PRN (Reason: muscle spasm) melatonin 5 mg tablet 10 mg PO diclofenac sodium 1 % gel 2 g topical BID acetaminophen 650 mg tablet extended release 650 mg PO Q6H PRN (Reason: fever) Referrals: Eulalio Bell MD [Physician] - Interventions: ED Discharge Assessment Last Done: 04/12/22 15:12 Discharge Date/Time: 04/12/22 15:14
[2022-04-12 15:41] LABS: Bacteria Urine 4+ (None Seen); RBC Urine >20 /HPF (0-2); UACC Culture Trigger YES; WBC Urine >50 /HPF (0-5)
== END 2022-04-12 15:14 | disposition home or self-care (01) ==
PROVIDERS: Emergency Provider Emergency Medicine; PCP Family Medicine
DX: N39.0 Urinary tract infection, site not specified (principal); B96.20 Unspecified Escherichia coli [E. coli] as the cause of diseases classified elsewhere; R31.9 Hematuria, unspecified; F41.9 Anxiety disorder, unspecified; F11.20 Opioid dependence, uncomplicated; F10.11 Alcohol abuse, in remission; Z86.19 Personal history of other infectious and parasitic diseases; Z79.899 Other long term (current) drug therapy
CPT/HCPCS: 80048; 80307; 81001; 85025; 87086; 87088; 87186; 99282; 99283

== ENCOUNTER 2022-06-04 08:58 | Outpatient (REF) | payer MEDICARE, MEDICAID, SELFPAY ==
[2022-06-04 09:17] LABS: MANUAL DIFF FLAG NO
--- NOTE | 2022-06-04 09:21 | ECG_ITS ---
Test Reason : preop Blood Pressure : / mmHG Vent. Rate : 054 BPM Atrial Rate : 054 BPM P-R Int : 150 ms QRS Dur : 096 ms QT Int : 468 ms P-R-T Axes : 073 056 018 degrees QTc Int : 443 ms Sinus bradycardia RSR' or QR pattern in V1 suggests right ventricular conduction delay Otherwise normal ECG When compared with ECG of 26-JUL-2020 19:44, No significant change was found Referred By: Jones Nichols Electronically Signed By:CATIA TRIPATHI MD
[2022-06-04 09:37] LABS: Basophils Percent Auto 0.5 % (0-2); Eosinophils Absolute Auto 0.1 X10*3/uL (0.0-0.4); Eosinophils Percent Auto 2.3 % (0-4); Hematocrit 36.4 % (42.0-52.0); Hemoglobin 11.8 g/dl (14.0-18.0); Imm Gran Abs Auto 0.01 X10*3/uL (0.00-0.03); Imm Gran Pct Auto 0.2 % (0.0-0.4); Lymphocytes Absolute Auto 0.9 X10*3/uL (1.2-4.9); Lymphocytes Percent Auto 20.4 % (20-40); Mean Corpuscular HGB Conc 32.4 g/dl (31.0-36.0); Mean Corpuscular Hemoglobin 28.6 pg (27.0-33.0); Mean Corpuscular Volume 88.3 fL (80.0-98.0); Monocytes Absolute Auto 0.3 X10*3/uL (0.1-1.2); Monocytes Percent Auto 6.1 % (2-11); Neutrophils Absolute Auto 3.1 x10*3/uL (2.0-8.3); Neutrophils Percent Auto 70.5 % (45-73); Platelet Count 194 X10*3/uL (160-400); Red Blood Count 4.12 X10*6/uL (4.60-5.80); Red Cell Distribution Width 12.1 % (11.0-16.0); White Blood Count 4.4 X10*3/uL (4.8-10.8)
[2022-06-04 10:02] LABS: Anion Gap 14 (12-20); Blood Urea Nitrogen 12 mg/dL (9-16); Calcium 9.2 mg/dL (8.4-10.2); Carbon Dioxide 29 mmol/L (22-29); Chloride 100 mmol/L (96-108); Estimated Glomerular Filt Rate > 60; Glucose Random 107 mg/dL (60-115); Potassium 4.1 mmol/L (3.3-5.1); Sodium 139 mmol/L (135-145)
[2022-06-04 10:09] LABS: Amphetamine Screen Urine Not Detected (Not Detect); Barbiturates, Urine Not Detected (Not Detect); Benzodiazepines Screen Urine Not Detected (Not Detect); Cannabinoid Screen Urine POSITIVE (Not Detect); Cocaine Screen Urine Not Detected (Not Detect); Fentanyl, urine Not Detected (Not Detect); Opiate Screen Urine Not Detected (Not Detect); Phencyclidine Screen Urine Not Detected (Not Detect)
== END 2022-06-04 08:59 | disposition home or self-care (01) ==
LOC: HO.LAB 08:58
PROVIDERS: Visit Provider Orthopaedic Surgery
DX: Z01.818 Encounter for other preprocedural examination (principal); F19.11 Other psychoactive substance abuse, in remission
CPT/HCPCS: 80048; 80307; 85025; 93005

== ENCOUNTER 2022-06-15 09:43 | Outpatient (REF) | payer MEDICARE, MEDICAID, SELFPAY ==
[2022-06-15 11:20] LABS: Hematocrit 33.4 % (42.0-52.0); Hemoglobin 10.6 g/dl (14.0-18.0); Mean Corpuscular HGB Conc 31.7 g/dl (31.0-36.0); Mean Corpuscular Hemoglobin 28.5 pg (27.0-33.0); Mean Corpuscular Volume 89.8 fL (80.0-98.0); Mean Platelet Volume 11.5 fL (9.4-12.4); Platelet Count 143 X10*3/uL (160-400); Red Blood Count 3.72 X10*6/uL (4.60-5.80); Red Cell Distribution Width 12.3 % (11.0-16.0); White Blood Count 5.2 X10*3/uL (4.8-10.8)
[2022-06-15 12:01] LABS: Estimated Average Glucose 103 mg/dL; Hemoglobin A1c % 5.2 %
[2022-06-15 12:15] LABS: HBS Num1 5.27 mIU/mL (0-7.99); HIV AB/AG Nonreactive (Nonreactive); HIV Num 1 0.07 S/CO (0.00-0.99); Hepatitis B Surface Antigen Negative (Negative); ~Hepatitis B Surface Antibody NONREACTIVE (Nonreactive)
[2022-06-15 12:56] LABS: Folate 17.6 ng/mL (> or = 4.0); Vitamin B12 656 pg/mL (200-900)
[2022-06-15 13:26] LABS: Alanine Aminotransferase 18 U/L (0-40); Albumin Level 3.6 g/dL (3.5-5.0); Alkaline Phosphatase 104 U/L (39-117); Anion Gap 10 (12-20); Aspartate Amino Transferase 20 U/L (5-37); Bilirubin Direct < 0.2 mg/dL (0.0-0.5); Bilirubin Total 0.3 mg/dL (0.0-1.0); Blood Urea Nitrogen 9 mg/dL (9-16); Calcium 8.6 mg/dL (8.4-10.2); Carbon Dioxide 31 mmol/L (22-29); Chloride 104 mmol/L (96-108); Cholesterol 145 mg/dL; Estimated Glomerular Filt Rate > 60; Ferritin 151 ng/mL (20-250); Glucose Random 94 mg/dL (60-115); HDL Cholesterol 42 mg/dL; Iron 68 mcg/dL (45-160); LDL Cholesterol Calculated 81 mg/dl; Percent Iron Saturation 32 % (15-50); Potassium 3.9 mmol/L (3.3-5.1); Prostate Specific Antigen 0.19 ng/mL (<0.05-4.0); Sodium 141 mmol/L (135-145); Thyroid Stimulating Hormone 0.92 uIU/mL (0.32-4.0); Total Iron Binding Capacity 213 mcg/dL (228-428); Total Protein 6.2 g/dL (6.5-8.0); Triglycerides 113 mg/dL; Unsaturated Iron Binding 145 ug/dL; Vitamin D 25-OH Total 25.8 ng/mL (>30)
[2022-06-15 13:56] LABS: CT PCR NOT DETECTED (Not Detect.); NG PCR NOT DETECTED (Not Detect.)
[2022-06-16 04:22] LABS: Syphilis Screen Nonreactive (Nonreactive)
[2022-06-16 16:46] LABS: HCV Log PCR <1.18 NOT DETECTED Log IU/mL (NOT DETECTED); HepC Viral Load <15 NOT DETECTED IU/mL (NOT DETECTED)
== END 2022-06-15 09:44 | disposition home or self-care (01) ==
LOC: HO.LAB 09:43
PROVIDERS: PCP Family Medicine; Visit Provider Family Medicine
DX: Z01.818 Encounter for other preprocedural examination (principal); Z12.5 Encounter for screening for malignant neoplasm of prostate; Z11.3 Encounter for screening for infections with a predominantly sexual mode of transmission; Z11.4 Encounter for screening for human immunodeficiency virus [HIV]; D64.9 Anemia, unspecified; E55.9 Vitamin D deficiency, unspecified
CPT/HCPCS: 80048; 80061; 80076; 82306; 82607; 82728; 82746; 83036; 83540; 84153; 84439; 84443; 85027; 86706; 86780; 87086; 87340; 87389; 87491; 87522; 87591

== ENCOUNTER 2022-06-24 07:58 | Outpatient (REF) | payer MEDICARE, MEDICAID, SELFPAY ==
--- NOTE | ~2022-06-24 | XR_ITS ---
EXAMINATION: XR HIP, RIGHT CLINICAL INFORMATION: Pain COMPARISON: Previous x-ray April [address] May 2021 TECHNIQUE: Two views of the right hip and one view of the pelvis. FINDINGS: No fracture or dislocation. There is severe arthritis at the right hip joint with joint space narrowing, osteophyte formation and subchondral cyst formation. There is mild to moderate arthritis at the left hip joint. Bones of the pelvis are normal. There are degenerative changes of the lower lumbar spine. There is a linear soft tissue density that projects lateral to the right hip joint or in the buttock on 2 of the 3 views questionable for soft tissue foreign body, a broken needle. This is is not seen on previous exams. XR/XR hip RT w [id number] IMPRESSION: Severe right hip arthritis. Question soft tissue foreign body/broken needle.
== END 2022-06-24 07:59 | disposition home or self-care (01) ==
LOC: HO.HOSX 07:58
PROVIDERS: Visit Provider Physician Assistant
DX: Z01.818 Encounter for other preprocedural examination (principal); M16.11 Unilateral primary osteoarthritis, right hip; Z79.899 Other long term (current) drug therapy
CPT/HCPCS: 73502; 99212

== ENCOUNTER 2022-06-29 07:27 | Inpatient (IN) | payer MEDICARE, MEDICAID, SELFPAY ==
[2022-06-22 12:09] VITALS: BP 98/52; PULSE 78; RESP 20; O2SAT 97; BMI 26.6
--- NOTE | 2022-06-22 12:24 | HO.ANESPROP2 ---
Documented by User: Kathleen Patino NP 06/28/22 08:43 HPI - Anesthesia Eval Consult details Narrative: 52yo M for Right Hip Total Replacement PCP cleared Hx polysub abuse - methadone daily Facial rash and right shoulder rash after shingles vaccine 06/18/22 Mom with pseudocholinesterase deficiency. Pt has had surgery without issue. PMFSH Active Problems Active Problems: All Active Problems (Updated 06/22/22 @ 12:02 by Marbella De La Torre RN) COVID-19 (Acute) Primary osteoarthritis of right hip (Acute) Hx of substance abuse (Acute) Chronic right hip pain (Acute) Degenerative disc disease (Acute) Chronic back pain (Acute) History of hepatitis C (Acute) Chronic anemia (Acute) History of alcohol abuse (Acute) Anxiety (Acute) Past Medical History Medical History Alcohol dependence in remission Anxiety Chronic anemia Chronic back pain Chronic right hip pain Degenerative disc disease Family history of pseudocholinesterase deficiency History of alcohol abuse History of COVID-19 History of hepatitis C Hx of substance abuse Rash Family History Family History Mother Osteoarthritis Family history of problems with anesthesia: Yes (Mother with succinylcholine allergy - difficult to wake up and reverse) Surgical History Surgical History History of laminectomy History of right inguinal hernia repair History of surgery History of Problems with Anesthesia: No Social History Social History Are you a primary career services coordinator to a significant other at home: No Do you presently have visiting nurse or other home services: No Alcohol intake: never Patient Tobacco Use Status: Current everyday Tobacco user Tobacco use type: Cigarette Cigarettes Per Day: 3 Years Smoked: 38 Use of substances other than those prescribed or required for medical reasons: Yes Substance Use Type: Amphetamines and Crack/Cocaine Substance Use Type Other:: current marijuana, prior opiates, heroin, cocaine-on methadone now Have you been hit, kicked, punched, or otherwise hurt by someone within the past year? If so, by whom?: No Are you DNR?: No Advance Directives: No Advance Directives Information Provided: Yes (brochure given) Advance Directives on File: No Recently lost weight without trying: No Eating poorly because of decreased appetite: No Nutrition Risks: No Nutritional Risk Poor oral hygiene: No Narrative Narrative: No recent illness No CP/SOB within limits of pain. Ambulates with crutchs Meds Allergies Allergy/AdvReac Type Severity Reaction Status Date / Time No Known Allergies Allergy Verified 06/24/22 10:34 Home Medications Medication Instructions Recorded Confirmed Last Taken Type clonazepam 1 mg tablet 1 mg PO QAM 05/22/20 06/24/22 06/29/22 04:30 History gabapentin 600 mg tablet 600 mg PO TID 05/22/20 06/24/22 Unknown History acetaminophen 650 mg 650 mg PO Q6H PRN fever 10/06/21 06/24/22 Unknown History tablet,extended release amitriptyline 50 mg tablet 50 mg PO BEDTIME 10/06/21 06/24/22 Unknown History cyclobenzaprine 10 mg tablet 20 mg PO BEDTIME PRN muscle spasm 10/06/21 06/24/22 Unknown History diclofenac sodium 1 % topical gel 2 g topical BID pain 10/06/21 06/24/22 Unknown History melatonin 5 mg tablet 10 mg PO BEDTIME 10/06/21 06/24/22 Unknown History methadone 40 mg soluble tablet 92 mg PO DAILY 10/06/21 06/29/22 06/29/22 04:30 History docusate sodium 100 mg capsule 1 cap PO BID PRN Constipation 06/22/22 06/24/22 Unknown History sennosides 8.6 mg tablet (senna) 2 tab PO DAILY PRN Constipation 06/22/22 06/24/22 Unknown History Exam Exam Date and Time: June 22, 2022 1224 Height,Weight and Vital Signs: Height 5 ft 11 in Weight 86.6 kg Last Vital Signs Pulse 78 06/22/22 12:09 Resp 20 06/22/22 12:09 BP 98/52 L 06/22/22 12:09 Pulse Ox 97 06/22/22 12:09 O2 Del Method 06/22/22 12:09 Pertinent Lab Results Pertinent Lab Results: Laboratory Tests 06/15/22 06/15/22 10:07 10:07 WBC 5.2 Hgb 10.6 L Hct 33.4 L Plt Count 143 L D Sodium 141 Potassium 3.9 Chloride 104 Carbon Dioxide 31 H BUN 9 Creatinine 0.76 Narrative Narrative: EKG 05/2022 Vent. Rate : 054 BPM ? ? Atrial Rate : 054 BPM ?? P-R Int : 150 ms? QRS Dur : 096 ms ? ? QT Int : 468 ms ? ? ? P-R-T Axes : 073 056 018 degrees ?? QTc Int : 443 ms ? Sinus bradycardia RSR' or QR pattern in V1 suggests right ventricular conduction delay Otherwise normal ECG When compared with ECG of 26-JUL-2020 19:44, No significant change was found Airway Mallampati Class: II TM Dist: >3cm Neck ROM: Full Loose/Missing/Broken Teeth: Yes (Molars missing) Heart: RRR Lungs: CTAB Assessment and Plan Assessment Anesthesia Assessment: Anesthesia Plan Discussed, Smoking Cess. Discussed and PAT Visit Final Anesthetic Review Family History of Problems with Anesthesia: Yes (Mother with succinylcholine allergy - difficult to wake up and reverse) History of Problems with Anesthesia: No Documented by User: Jey Oglesby MD 06/29/22 19:34 PMFSH Past Medical History Medical History Alcohol dependence in remission Anxiety Chronic anemia Chronic back pain Chronic right hip pain Degenerative disc disease Family history of pseudocholinesterase deficiency History of alcohol abuse History of COVID-19 History of hepatitis C Hx of substance abuse Rash Family History Family History Mother Osteoarthritis Surgical History Surgical History History of laminectomy History of right inguinal hernia repair History of surgery Social History Social History Are you a primary career services coordinator to a significant other at home: No Do you presently have visiting nurse or other home services: No Alcohol intake: never Patient Tobacco Use Status: Current everyday Tobacco user Tobacco use type: Cigarette Cigarettes Per Day: 3 Years Smoked: 38 Use of substances other than those prescribed or required for medical reasons: Yes Substance Use Type: Amphetamines and Crack/Cocaine Substance Use Type Other:: current marijuana, prior opiates, heroin, cocaine-on methadone now Have you been hit, kicked, punched, or otherwise hurt by someone within the past year? If so, by whom?: No Are you DNR?: No Advance Directives: No Advance Directives Information Provided: Yes (brochure given) Advance Directives on File: No Recently lost weight without trying: No Eating poorly because of decreased appetite: No Nutrition Risks: No Nutritional Risk Poor oral hygiene: No Meds Allergies Allergy/AdvReac Type Severity Reaction Status Date / Time No Known Allergies Allergy Verified 06/24/22 10:34 Home Medications Medication Instructions Recorded Confirmed Last Taken Type clonazepam 1 mg tablet 1 mg PO QAM 05/22/20 06/24/22 06/29/22 04:30 History gabapentin 600 mg tablet 600 mg PO TID 05/22/20 06/24/22 Unknown History acetaminophen 650 mg 650 mg PO Q6H PRN fever 10/06/21 06/24/22 Unknown History tablet,extended release amitriptyline 50 mg tablet 50 mg PO BEDTIME 10/06/21 06/24/22 Unknown History cyclobenzaprine 10 mg tablet 20 mg PO BEDTIME PRN muscle spasm 10/06/21 06/24/22 Unknown History diclofenac sodium 1 % topical gel 2 g topical BID pain 10/06/21 06/24/22 Unknown History melatonin 5 mg tablet 10 mg PO BEDTIME 10/06/21 06/24/22 Unknown History methadone 40 mg soluble tablet 92 mg PO DAILY 10/06/21 06/29/22 06/29/22 04:30 History docusate sodium 100 mg capsule 1 cap PO BID PRN Constipation 06/22/22 06/24/22 Unknown History sennosides 8.6 mg tablet (senna) 2 tab PO DAILY PRN Constipation 06/22/22 06/24/22 Unknown History Exam Airway Loose/Missing/Broken Teeth: Yes (multiple missing teeth , poor dentition overall ) Assessment and Plan Assessment Anesthesia Assessment: Chart Reviewed Final Anesthetic Review NPO: Yes ASA Class: III Final Preanesthetic Review: Meds/Allgs Chart Reviewed, Consent Obtained/Reviewed and Anes Risks/Benef Reviewed Patient Risk: High Procedure Risk: Intermediate Anesthetic Plan Anesthetic Plan: GA Disposition: Standard PACU
[2022-06-22 14:11] LABS: MRSA Nasal PCR NEGATIVE (Negative); SA Nasal PCR POSITIVE (Negative)
[2022-06-22 14:52] LABS: Amphetamine Screen Urine Not Detected (Not Detect); Barbiturates, Urine Not Detected (Not Detect); Benzodiazepines Screen Urine Not Detected (Not Detect); Cannabinoid Screen Urine POSITIVE (Not Detect); Cocaine Screen Urine Not Detected (Not Detect); Fentanyl, urine Not Detected (Not Detect); Opiate Screen Urine Not Detected (Not Detect); Phencyclidine Screen Urine Not Detected (Not Detect)
[2022-06-29] VITALS (12 sets, daily range): BP systolic 82–127; BP diastolic 49–77; PULSE 52–69; RESP 10–18; TEMP 36.2–36.6; O2SAT 95–99
--- NOTE | ~2022-06-29 | XR_ITS ---
EXAMINATION: XR PELVIS CLINICAL INFORMATION: Right hip replacement COMPARISON: Previous x-ray most recent from earlier the same day TECHNIQUE: AP view of the pelvis. FINDINGS: There is a right hip replacement in satisfactory position. No fracture or dislocation. There are postoperative changes to the soft tissues. XR/XR pelvis 1-2V IMPRESSION: Satisfactory appearance of right hip replacement.
--- NOTE | ~2022-06-29 | XR_ITS ---
EXAMINATION: XR PELVIS CLINICAL INFORMATION: Postop COMPARISON: Previous x-ray 06/24/2022 TECHNIQUE: AP view of the pelvis. FINDINGS: There is a new right hip replacement in satisfactory position. No fracture or dislocation. There are postoperative changes to the soft tissues. XR/XR pelvis 1-2V IMPRESSION: Satisfactory appearance of right hip replacement.
--- NOTE | 2022-06-29 06:13 | HE.PHANOTE ---
RE METHADONE FORM RECEIVED. PT GETS 92MG DAILY FROM [facility]MON[facility]
[2022-06-29 08:21] LABS: COVID-19 Test Negative (Negative); IDNOW Serial# 16C4AD1C
[2022-06-29 08:33] LABS: Amphetamine Screen Urine Not Detected (Not Detect); Barbiturates, Urine Not Detected (Not Detect); Benzodiazepines Screen Urine Not Detected (Not Detect); Cannabinoid Screen Urine POSITIVE (Not Detect); Cocaine Screen Urine Not Detected (Not Detect); Fentanyl, urine Not Detected (Not Detect); Opiate Screen Urine Not Detected (Not Detect); Phencyclidine Screen Urine Not Detected (Not Detect)
[2022-06-29 08:51] LABS: Hematocrit 34.7 % (42.0-52.0); Hemoglobin 11.4 g/dl (14.0-18.0)
[2022-06-29] MEDS: oxyCODONE HCl ER 10 MG TAB.ER.12H PO ×2 (10:26→21:19)
[2022-06-29] MEDS: Lactated Ringers 1,000 ML 100 ML IVCONT ×2 (10:56→15:50)
--- NOTE | 2022-06-29 12:39 | P.BOP_ITS ---
Brief Operative Note Date of Service: 06/29/22 Pre-op diagnosis: Right hip OA Post-op diagnosis: same Procedure: Right CORWIN Implants: Sukhdeep Trident2 58/20 deg liner [place] Accolade2 132 deg #7 with +0 36 ceramic femoral head Surgeon: Jones Nichols MD Anesthesia: GETA and local Was an Communications Clerk used for this Procedure?: Yes Communications Clerk: Francisco Crooks Estimated blood loss (mL): 250 IV fluids (mL): 1,000 Pathology: other Condition: stable Disposition: PACU
--- NOTE | 2022-06-29 12:52 | W.PM.OPN ---
Operative Note Operative Note Date of Service: 06/29/22 Narrative: Date of Service: 06/29/22 Pre-op diagnosis: Right hip OA Post-op diagnosis: same Procedure: Right CORWIN Implants: [place] Trident2 58/20 deg liner Sukhdeep Accolade2 132 deg #7 with +0 36 ceramic femoral head? Surgeon: Jones Nichols MD Anesthesia: GETA and local Was an Sales Representative Supervisor used for this Procedure?: Yes Sales Representative Supervisor: Francisco Crooks Estimated blood loss (mL): 250 IV fluids (mL): 1,000 Pathology: other Condition: stable Disposition: PACU Procedure in detail: Patient was brought into the operating room and placed in the left lateral decubitus position. All bony prominences were well padded and the limb was prepped and draped in standard sterile fashion. A time-out was called to identify proper site procedure proper surgeon IV antibiotics and 1 g of transaxemic acid were administered. His hip was chronically flexed approxiamtely 15 deg and It was difficult to extend it when controlling pelvis tile. I began by making a curvilinear incision over the posterolateral aspect of the greater trochanter. Dissection was taken down to the tensor fascia which was incised in line with the incision and a Charnley retractor was placed. Cautery was used to maintain hemostasis. The hip was internally rotated and the external rotators were identified. The vessels were cauterized and a full-thickness capsular/external rotator layer was developed starting just proximal to the piriformis. This layer was tagged and a dull Hohmann retractor was placed underneath the neck in the hip was dislocated. A neck cut was made 1.5 cm proximal to the lesser trochanter and the head and neck were removed and measured 54mm on the back table. The head was defromed and eburnated. then removed the labrum and cauterized the fovea. I started with a 44 reamer and medialized to the inner table. I sequentially reamed up to a size 57 and impacted a 58mm cup at 45 degrees of inclination and 25 degrees of version. I then placed a 20 deg posterior lipped liner and turned my attention to the femur. I identified the piriformis insertion and used this as a starting point for my laury cutter. The medius tendon was protected with a Hibs retractor. A Charnley awl was inserted in the canal and a curved curette used to remove the lateral bone. I irrigated copiously. I then sequentially broached in the patient's natural version to a size 7 and placed my trial implants. I used a #5/132/+0 based on my pre-operative template. Using a trail head I took the hip through range of motion. I was satisfied with the stability. He was still stiff in extension but stable. I removed all instrumentation and copiously irrigated. I placed my final femoral implant and again took the hip through range of motion and was satisfied with the stability and length. The final +0 implant was impacted in place and the hip reduced. I then irrigated for 3 minutes with iodine and placed 1 g of local transaxemic acid. I performed a capsular closure with 2.0 fiberwire, Paulina's fascia with 0 Vicryl, subcuticular with 2-0 Vicryl and the skin with dave. Patient was placed into a sterile dressing. Patient was extubated brought to the recovery room in stable condition. There were no known complications.
[2022-06-29] MEDS: Acetaminophen 1,000 MG/100 ML PIGGYBACK 400 MG IV ×2 (15:50→21:19)
[2022-06-29] MEDS: oxyCODONE HCl Immed Release 5 MG TABLET 10 MG PO (15:50)
[2022-06-29] MEDS: 0.9 % Sodium Chloride Flush 3 ML SYRINGE IVFLUSH (15:51)
--- NOTE | 2022-06-29 15:57 | P.CONIM_ITS ---
History of Present Illness Data of Consult Service Date: 06/29/22 Primary Care Provider: Zahraa Roca DO HPI Reason for consult: opiate dependence 52M with pmh polysbstance dependence, etoh dependence, hcv, presented for elective right hip arthroplasty. Patient is feeling well postoperatively. Denies chest pain, shortness of breath, fever, chills. Review of Systems Review of Systems: Yes all other systems are reviewed and are negative [facility] Medical History Alcohol dependence in remission Anxiety Chronic anemia Chronic back pain Chronic right hip pain Degenerative disc disease Family history of pseudocholinesterase deficiency History of alcohol abuse History of COVID-19 History of hepatitis C Hx of substance abuse Rash Family History Mother Osteoarthritis Surgical History History of laminectomy History of right inguinal hernia repair History of surgery Social History Are you a primary care clinician to a significant other at home: No Do you presently have visiting nurse or other home services: No Alcohol intake: never Patient Tobacco Use Status: Current everyday Tobacco user Tobacco use type: Cigarette Cigarettes Per Day: 3 Years Smoked: 38 Use of substances other than those prescribed or required for medical reasons: Yes Substance Use Type: Amphetamines and Crack/Cocaine Substance Use Type Other:: current marijuana, prior opiates, heroin, cocaine-on methadone now Have you been hit, kicked, punched, or otherwise hurt by someone within the past year? If so, by whom?: No Are you DNR?: No Advance Directives: No Advance Directives Information Provided: Yes (brochure given) Advance Directives on File: No Recently lost weight without trying: No Eating poorly because of decreased appetite: No Nutrition Risks: No Nutritional Risk Poor oral hygiene: No Meds Allergies Allergy/AdvReac Type Severity Reaction Status Date / Time No Known Allergies Allergy Verified 06/24/22 10:34 Active Medications: Current Medications Amitriptyline HCl (Amitriptyline Hcl 50 Mg Tablet) 50 mg PO BEDTIME JAZZY Celecoxib (Celecoxib 200 Mg Capsule) 200 mg PO BID JAZZY Clonazepam (Clonazepam 1 Mg Tablet) 1 mg PO DAILY JAZZY Cyclobenzaprine HCl (Cyclobenzaprine Hcl 10 Mg Tablet) 10 mg PO BEDTIME PRN PRN Reason: muscle spasm Docusate Sodium (Docusate Sodium 100 Mg Capsule) 100 mg PO BID [facility] Gabapentin (Gabapentin 600 Mg Tablet) 600 mg PO DAILY [facility] Hydromorphone HCl (Hydromorphone Hcl 0.5 Mg/0.5 Ml Syringe) 0.25 mg IVPUSH Q5M PRN; Protocol PRN Reason: Pain, Severe (Pain Scale 7-10) Hydromorphone HCl (Hydromorphone Hcl 0.5 Mg/0.5 Ml Syringe) 0.5 mg IVPUSH Q4H PRN; Protocol PRN Reason: Pain, Severe (Pain Scale 7-10) Promethazine HCl 6.25 mg/ (Sodium Chloride) 50.25 mls @ 201 mls/hr IV ONCE PRN PRN Reason: Nausea and Vomiting Lactated Ringer's (Lr) 1,000 mls @ 100 mls/hr IVCONT .Q10H [facility] Stop: 06/30/22 14:58 Last Admin: 06/29/22 15:50 Dose: 100 mls/hr Cefazolin Sodium/Dextrose (Ancef) 2 gm in 50 mls @ 100 mls/hr IV POSTOP ONE Stop: 06/29/22 17:44 Acetaminophen (Ofirmev) 1,000 mg in 100 mls @ 400 mls/hr IV Q6H [facility] Last Admin: 06/29/22 15:50 Dose: 400 mls/hr Melatonin (Melatonin 3 Mg Tablet) 9 mg PO BEDTIME [facility] Methadone HCl (Methadone Hcl 20 Mg/2 Ml Oral.Conc) 92 mg PO DAILY [facility] Ondansetron HCl (Ondansetron Hcl 4 Mg/2 Ml Vial) 4 mg IVPUSH Q8H PRN PRN Reason: Nausea and Vomiting Oxycodone HCl (Oxycodone Hcl Immed Release 5 Mg Tablet) 10 mg PO Q4H PRN PRN Reason: Pain, Moderate (Pain Scale 4-6 Last Admin: 06/29/22 15:50 Dose: 10 mg Oxycodone HCl (Oxycodone Hcl Er 10 Mg Tab.Er.12h) 10 mg PO BID [facility] Sodium Chloride (0.9 % Sodium Chloride Flush 3 Ml Syringe) 3 ml IVFLUSH QSHIFT [facility] Last Admin: 06/29/22 15:51 Dose: 3 ml Home Medications Medication Instructions Recorded Confirmed Last Taken Type clonazepam 1 mg tablet 1 mg PO QAM 05/22/20 06/24/22 06/29/22 04:30 History gabapentin 600 mg tablet 600 mg PO TID 05/22/20 06/24/22 Unknown History acetaminophen 650 mg 650 mg PO Q6H PRN fever 10/06/21 06/24/22 Unknown History tablet,extended release amitriptyline 50 mg tablet 50 mg PO BEDTIME 10/06/21 06/24/22 Unknown History cyclobenzaprine 10 mg tablet 20 mg PO BEDTIME PRN muscle spasm 10/06/21 06/24/22 Unknown History diclofenac sodium 1 % topical gel 2 g topical BID pain 10/06/21 06/24/22 Unknown History melatonin 5 mg tablet 10 mg PO BEDTIME 10/06/21 06/24/22 Unknown History methadone 40 mg soluble tablet 92 mg PO DAILY 10/06/21 06/29/22 06/29/22 04:30 History docusate sodium 100 mg capsule 1 cap PO BID PRN Constipation 06/22/22 06/24/22 Unknown History sennosides 8.6 mg tablet (senna) 2 tab PO DAILY PRN Constipation 06/22/22 06/24/22 Unknown History Physical Exam Vital Signs and Narrative: Vital Signs: Last Vital Signs Temp 97.5 F 06/29/22 14:30 Pulse 59 06/29/22 14:30 Resp 16 06/29/22 14:30 BP 110/57 L 06/29/22 14:30 Pulse Ox 99 06/29/22 14:30 O2 Del Method 06/29/22 14:30 O2 Flow Rate 2 06/29/22 14:00 BMI result Body Mass Index 26.6 General: no acute distress HEENT: atraumatic Neck: normal to visual inspection CVS: S1, S2, RRR Resp: CTA bilateral Chest: non tender GI: soft, non tender, non distended : no CVA tenderness Skin: no rashes Extremities: no edema Neuro: Oriented X3, grossly intact Psych: cooperative Results Labs CBC and Chem 7: 06/29/22 08:30 Labs: Laboratory Results - last 24 hr 06/29/22 06/29/22 07:56 07:56 Urine Opiates Screen Not Detected Urine Fentanyl Screen Not Detected Ur Barbiturates Screen Not Detected Ur Phencyclidine Scrn Not Detected Ur Amphetamines Screen Not Detected U Benzodiazepines Scrn Not Detected Urine Cocaine Screen Not Detected U Marijuana (THC) Screen POSITIVE H COVID-19 (HARLAN) Negative COVID-19 Clin Com See Note Assessment and Plan (1) History of hepatitis C: Status: Acute Plan 52M with pmh polysbstance dependence, etoh dependence, hcv, presented for elective right hip arthroplasty Right hip arthroplasty Management per Orthopedics Alcohol dependence Monitor for withdrawal Polysubstance dependence Resume opiate replacement therapy once confirmed HCV Outpatient management
[2022-06-29] MEDS: clonazePAM 1 MG TABLET PO (18:24)
[2022-06-29] MEDS: ceFAZolin Sodium/Dextrose,Iso 2 GM/50 ML PIGGYBACK IV (18:24)
[2022-06-29] MEDS: HYDROmorphone HCl 0.5 MG/0.5 ML SYRINGE IVPUSH ×2 (19:56→23:56)
[2022-06-29] MEDS: Melatonin 3 MG TABLET 9 MG PO (21:18)
[2022-06-29] MEDS: Amitriptyline HCl 50 MG TABLET PO (21:19)
[2022-06-29] MEDS: Celecoxib 200 MG CAPSULE PO (21:19)
[2022-06-29] MEDS: Docusate Sodium 100 MG CAPSULE PO (21:19)
[2022-06-29] MEDS: Cyclobenzaprine HCl 10 MG TABLET PO (21:22)
[2022-06-30] VITALS (7 sets, daily range): BP systolic 109–149; BP diastolic 58–75; PULSE 65–85; RESP 16–18; TEMP 36.3–36.8; O2SAT 95–100
[2022-06-30] MEDS: Lactated Ringers 1,000 ML 100 ML IVCONT (03:02)
[2022-06-30] MEDS: oxyCODONE HCl Immed Release 5 MG TABLET 10 MG PO ×4 (03:02→16:40)
[2022-06-30] MEDS: Acetaminophen 1,000 MG/100 ML PIGGYBACK 400 MG IV ×3 (03:02→20:24)
[2022-06-30] MEDS: Cyclobenzaprine HCl 10 MG TABLET PO (04:05)
[2022-06-30] MEDS: HYDROmorphone HCl 0.5 MG/0.5 ML SYRINGE IVPUSH ×2 (04:05→22:54)
[2022-06-30 07:12] LABS: MANUAL DIFF FLAG NO
[2022-06-30 07:17] LABS: Basophils Percent Auto 0.1 % (0-2); Hematocrit 30.9 % (42.0-52.0); Imm Gran Abs Auto 0.04 X10*3/uL (0.00-0.03); Imm Gran Pct Auto 0.3 % (0.0-0.4); Lymphocytes Absolute Auto 0.8 X10*3/uL (1.2-4.9); Lymphocytes Percent Auto 7.3 % (20-40); Mean Corpuscular HGB Conc 32.4 g/dl (31.0-36.0); Mean Corpuscular Hemoglobin 28.4 pg (27.0-33.0); Mean Corpuscular Volume 87.8 fL (80.0-98.0); Mean Platelet Volume 10.5 fL (9.4-12.4); Monocytes Absolute Auto 0.8 X10*3/uL (0.1-1.2); Monocytes Percent Auto 7.1 % (2-11); Neutrophils Absolute Auto 9.7 x10*3/uL (2.0-8.3); Neutrophils Percent Auto 85.2 % (45-73); Platelet Count 186 X10*3/uL (160-400); Red Blood Count 3.52 X10*6/uL (4.60-5.80); Red Cell Distribution Width 12.2 % (11.0-16.0); White Blood Count 11.4 X10*3/uL (4.8-10.8)
[2022-06-30] MEDS: clonazePAM 1 MG TABLET PO (07:23)
[2022-06-30] MEDS: Docusate Sodium 100 MG CAPSULE PO ×2 (07:24→20:25)
[2022-06-30] MEDS: Gabapentin 600 MG TABLET PO (07:24)
[2022-06-30] MEDS: Celecoxib 200 MG CAPSULE PO ×2 (07:24→20:25)
[2022-06-30] MEDS: methADONE HCl 20 MG/2 ML ORAL.CONC 92 MG PO (07:25)
[2022-06-30 07:38] LABS: Anion Gap 13 (12-20); Blood Urea Nitrogen 14 mg/dL (9-16); Calcium 8.7 mg/dL (8.4-10.2); Carbon Dioxide 27 mmol/L (22-29); Chloride 103 mmol/L (96-108); Creatinine Clr Calc Pharmacy 118.3; Estimated Glomerular Filt Rate > 60; Glucose Fasting 101 mg/dL (60-99); Potassium 4.2 mmol/L (3.3-5.1); Sodium 139 mmol/L (135-145)
--- NOTE | 2022-06-30 07:51 | P.PNOP_ITS ---
Subjective Subjective Date of Service: 06/30/22 Interval history: POD1 s/p RTHA patient is sitting at the edge of bed. No overnight events. Pain is challenging to manage. However, he reports that he just received his Methadone and is hopeful that this will help with pain. No additional co mplaints. Physical Exam Vital Signs: Vital Signs: Last Vital Signs Temp 97.3 F 06/30/22 07:38 Pulse 80 06/30/22 07:38 Resp 18 06/30/22 07:38 BP 149/75 H 06/30/22 07:38 Pulse Ox 100 06/30/22 07:38 O2 Del Method 06/30/22 07:38 O2 Flow Rate 2 06/29/22 14:00 BMI result Body Mass Index 26.6 Const: General: cooperative, healthy appearing and no acute distress Resp: Effort & Inspection: normal respiratory effort and able to speak in complete sentences Cardio: Rate: regular rate Peripheral pulses: Peripheral pulses 2+ throughout GI: Palpation (GI): Soft to palpation Skin: Lesions: no lesions Rashes: no rashes Extrem: Other: Right hip Aquacel is c/d/i. NVI Procedures Date of Service Date of Service: 06/30/22 Progress Note: A&P Assessment and plan (1) S/P total right hip arthroplasty: Status: Acute Assessment and Plan: Continue pain mgmnt Begin ASA for dvt ppx begin PT for RTHA Dispo planning-Pending PT eval, pain mgmnt Time Spent With Patient Time: Total time spent is greater than 50% in coordination of care (as documented) at patient's floor/unit and/or counseling patient: Quality Stroke Does the patient have a stroke diagnosis?: No VTE Prior VTE?: No VTE Risk Level:: Medical - moderate - high VTE Device Contraindication: N/A - Device Ordered VTE Drug Contraindication: N/A - Med Ordered
[2022-06-30] MEDS: oxyCODONE HCl ER 10 MG TAB.ER.12H PO ×2 (09:01→20:25)
--- NOTE | 2022-06-30 09:10 | HO.POSTANES ---
Post Anesthesia Evaluation Post Anesthesia Evaluation Vital Signs: Vital Signs Temp Pulse Resp BP Pulse Ox O2 Del Method 06/30/22 08:44 80 149/75 H 100 06/30/22 07:38 97.3 F 80 18 149/75 H 100 Room Air 06/30/22 03:17 97.3 F 75 16 128/66 95 Room Air Anesthesia: General Mental Status: Awake Pain Control: Satisfactory Nausea/Vomiting: None Hydration: Adequate Anesthesia-Related Issues: No Anes. Related Issues
--- NOTE | 2022-06-30 10:35 | P.PNIM_ITS ---
Subjective Subjective Date of Service: 06/30/22 Interval History: cc: elective right hip arthroplasty interval history:pain controlled Cardiovascular Cardiovascular: Reports no additional cardiovascular complaints Respiratory Respiratory: Reports no additional respiratory complaints Physical Exam Vital Signs: Vital Signs: Last Vital Signs Temp 97.3 F 06/30/22 07:38 Pulse 80 06/30/22 08:44 Resp 18 06/30/22 07:38 BP 149/75 H 06/30/22 08:44 Pulse Ox 100 06/30/22 08:44 O2 Del Method 06/30/22 07:38 O2 Flow Rate 2 06/29/22 14:00 BMI result Body Mass Index 26.6 General: AO X 3, no acute distress Resp: CTA bilateral, no accessory muscles used CVS: S1,S2,RRR GI: soft, non tender, non distended Neuro: motor grossly intact, alert Psych: appropriate affect, appropriate insight Objective Data Active Medications Amitriptyline HCl (Amitriptyline Hcl 50 Mg Tablet) 50 mg PO BEDTIME [facility] Last Admin: 06/29/22 21:19 Dose: 50 mg Documented By: KILO Aspirin (Aspirin 325 Mg Tablet) 325 mg PO BID [facility] Celecoxib (Celecoxib 200 Mg Capsule) 200 mg PO BID [facility] Last Admin: 06/30/22 07:24 Dose: 200 mg Documented By: FAISAL Clonazepam (Clonazepam 1 Mg Tablet) 1 mg PO DAILY [facility] Last Admin: 06/30/22 07:23 Dose: 1 mg Documented By: FAISAL Cyclobenzaprine HCl (Cyclobenzaprine Hcl 10 Mg Tablet) 10 mg PO BEDTIME PRN PRN Reason: muscle spasm Last Admin: 06/29/22 21:22 Dose: 10 mg Documented By: KILO Docusate Sodium (Docusate Sodium 100 Mg Capsule) 100 mg PO BID [facility] Last Admin: 06/30/22 07:24 Dose: 100 mg Documented By: FAISAL Gabapentin (Gabapentin 600 Mg Tablet) 600 mg PO DAILY [facility] Last Admin: 06/30/22 07:24 Dose: 600 mg Documented By: FAISAL Hydromorphone HCl (Hydromorphone Hcl 0.5 Mg/0.5 Ml Syringe) 0.25 mg IVPUSH Q5M PRN; Protocol PRN Reason: Pain, Severe (Pain Scale 7-10) Hydromorphone HCl (Hydromorphone Hcl 0.5 Mg/0.5 Ml Syringe) 0.5 mg IVPUSH Q4H PRN; Protocol PRN Reason: Pain, Severe (Pain Scale 7-10) Last Admin: 06/30/22 04:05 Dose: 0.5 mg Documented By: KILO Promethazine HCl 6.25 mg/ (Sodium Chloride) 50.25 mls @ 201 mls/hr IV ONCE PRN PRN Reason: Nausea and Vomiting Acetaminophen (Ofirmev) 1,000 mg in 100 mls @ 400 mls/hr IV Q6H [facility] Last Infusion: 06/30/22 08:22 Dose: 400 mls/hr Documented By: FAISAL Melatonin (Melatonin 3 Mg Tablet) 9 mg PO BEDTIME [facility] Last Admin: 06/29/22 21:18 Dose: 9 mg Documented By: KILO Methadone HCl (Methadone Hcl 20 Mg/2 Ml Oral.Conc) 92 mg PO DAILY [facility] Last Admin: 06/30/22 07:25 Dose: 92 mg Documented By: FAISAL Ondansetron HCl (Ondansetron Hcl 4 Mg/2 Ml Vial) 4 mg IVPUSH Q8H PRN PRN Reason: Nausea and Vomiting Oxycodone HCl (Oxycodone Hcl Immed Release 5 Mg Tablet) 10 mg PO Q4H PRN PRN Reason: Pain, Moderate (Pain Scale 4-6 Last Admin: 06/30/22 07:22 Dose: 10 mg Documented By: FAISAL Oxycodone HCl (Oxycodone Hcl Er 10 Mg Tab.Er.12h) 10 mg PO BID [facility] Last Admin: 06/30/22 09:01 Dose: 10 mg Documented By: FAISAL Sodium Chloride (0.9 % Sodium Chloride Flush 3 Ml Syringe) 3 ml IVFLUSH QSHIFT [facility] Last Admin: 06/30/22 08:23 Dose: Not Given Documented By: FAISAL Non-Admin Reason: IV Running Labs CBC & Chem 7: 06/30/22 06:02 06/30/22 06:02 Labs: Laboratory Results - last 24 hr 06/30/22 06/30/22 06:02 06:02 MCV 87.8 MCH 28.4 MCHC 32.4 RDW 12.2 Plt Count 186 D MPV 10.5 Immature Gran % (Auto) 0.3 Neut % (Auto) 85.2 H Lymph % (Auto) 7.3 L [place] % (Auto) 7.1 Eos % (Auto) 0.0 Baso % (Auto) 0.1 Lymph # (Auto) 0.8 L [place] # (Auto) 0.8 Eos # (Auto) 0.0 Baso # (Auto) 0.0 Abs Immat Gran (auto) 0.04 H Absolute Neuts (auto) 9.7 H Absolute Nucleated RBC 0.000 Nucleated RBC % (auto) 0.0 Anion Gap 13 Estim Creat Clear Calc 118.3 Estimated GFR > 60 Fasting Glucose 101 H Calcium 8.7 Assessment and Plan (1) S/P total right hip arthroplasty: Status: Acute Plan 52M with pmh polysbstance dependence, etoh dependence, hcv, presented for elective right hip arthroplasty Right hip arthroplasty pod 1 Management per Orthopedics Alcohol dependence Monitor for withdrawal Polysubstance dependence Resume opiate replacement therapy once confirmed HCV Outpatient management patient appears medically stable, will sign off for now, please recall if needed Quality Stroke Does the patient have a stroke diagnosis?: No VTE Prior VTE?: No VTE Risk Level:: Medical - moderate - high VTE Device Contraindication: N/A - Device Ordered VTE Drug Contraindication: N/A - Med Ordered
[2022-06-30] MEDS: Aspirin 325 MG TABLET PO ×2 (12:37→20:25)
[2022-06-30] MEDS: 0.9 % Sodium Chloride Flush 3 ML SYRINGE IVFLUSH ×2 (16:06→20:26)
[2022-06-30] MEDS: Melatonin 3 MG TABLET 9 MG PO (20:24)
[2022-06-30] MEDS: Amitriptyline HCl 50 MG TABLET PO (20:25)
[2022-07-01 04:00] VITALS: BP 113/64; PULSE 75; RESP 14; TEMP 36.7; O2SAT 99
[2022-07-01] MEDS: HYDROmorphone HCl 0.5 MG/0.5 ML SYRINGE IVPUSH (04:26)
[2022-07-01] MEDS: Acetaminophen 1,000 MG/100 ML PIGGYBACK 400 MG IV ×2 (04:28→08:42)
[2022-07-01 07:19] VITALS: BP 114/59; PULSE 73; RESP 18; TEMP 36.2; O2SAT 99
[2022-07-01 07:27] LABS: MANUAL DIFF FLAG NO
[2022-07-01 07:34] LABS: Basophils Percent Auto 0.3 % (0-2); Eosinophils Absolute Auto 0.2 X10*3/uL (0.0-0.4); Eosinophils Percent Auto 1.6 % (0-4); Hematocrit 30.3 % (42.0-52.0); Hemoglobin 9.7 g/dl (14.0-18.0); Imm Gran Abs Auto 0.05 X10*3/uL (0.00-0.03); Imm Gran Pct Auto 0.5 % (0.0-0.4); Lymphocytes Percent Auto 11.2 % (20-40); Mean Corpuscular Volume 90.4 fL (80.0-98.0); Mean Platelet Volume 10.6 fL (9.4-12.4); Monocytes Absolute Auto 0.8 X10*3/uL (0.1-1.2); Monocytes Percent Auto 8.2 % (2-11); Neutrophils Absolute Auto 7.3 x10*3/uL (2.0-8.3); Neutrophils Percent Auto 78.2 % (45-73); Platelet Count 176 X10*3/uL (160-400); Red Blood Count 3.35 X10*6/uL (4.60-5.80); Red Cell Distribution Width 12.6 % (11.0-16.0); White Blood Count 9.3 X10*3/uL (4.8-10.8)
[2022-07-01 08:18] LABS: Anion Gap 12 (12-20); Blood Urea Nitrogen 16 mg/dL (9-16); Calcium 8.6 mg/dL (8.4-10.2); Carbon Dioxide 27 mmol/L (22-29); Chloride 102 mmol/L (96-108); Creatinine Clr Calc Pharmacy 119.9; Estimated Glomerular Filt Rate > 60; Glucose Fasting 104 mg/dL (60-99); Potassium 4.2 mmol/L (3.3-5.1); Sodium 137 mmol/L (135-145)
[2022-07-01] MEDS: Aspirin 325 MG TABLET PO (08:28)
[2022-07-01] MEDS: Gabapentin 600 MG TABLET PO (08:29)
[2022-07-01] MEDS: Celecoxib 200 MG CAPSULE PO (08:29)
[2022-07-01] MEDS: clonazePAM 1 MG TABLET PO (08:29)
[2022-07-01] MEDS: oxyCODONE HCl ER 10 MG TAB.ER.12H PO (08:29)
[2022-07-01] MEDS: Docusate Sodium 100 MG CAPSULE PO (08:29)
[2022-07-01] MEDS: oxyCODONE HCl Immed Release 5 MG TABLET 10 MG PO (08:30)
[2022-07-01] MEDS: methADONE HCl 20 MG/2 ML ORAL.CONC 92 MG PO (08:31)
[2022-07-01] MEDS: 0.9 % Sodium Chloride Flush 3 ML SYRINGE IVFLUSH (08:42)
[2022-07-01 09:15] VITALS: BP 114/59; PULSE 73; O2SAT 99
--- NOTE | 2022-07-01 12:56 | PM.DS ---
DS: Providers Provider Date of Service: 07/01/22 Date of admission: 06/29/22 07:27 Primary care physician: Zahraa Roca DO Consults: 06/29/22 14:59 Consult to Hospitalist Routine Consulting Provider: Hospitalist Reason For Exam: h/o substance abuse DS: Diagnosis Discharge Diagnosis (1) S/P total right hip arthroplasty: Status: Acute DS: Summary Hospital Course Hospital Course: The patient underwent a successful right total hip arthroplasty, they were transferred to PACU and then to the floor to recover. During their stay, their vitals were stable, afebrile at 97.2. Labs were unremarkable, H/H 9.7/30.3. POD 1 they were started on Aspirin 325mg po bid for DVT ppx, they also received Physical Therapy services twice a day. Prior to discharge, their dressing was changed, incision clean dry and intact, new Aquacel dressing applied and the plan was to be discharged home with VNA services. Time Spent with Patient Time attestation: Total time spent providing and/or coordinating discharge services: Discharge coordination time: Less than 30 minutes Quality: Safe Use of Opioids Does Pt have an Active Cancer Diagnosis on the Problem List?: No Quality: Stroke Does the patient have a stroke diagnosis?: No Physical Exam Vital Signs: Vital Signs: Last Vital Signs Temp 97.2 F 07/01/22 07:19 Pulse 73 07/01/22 09:15 Resp 18 07/01/22 07:19 BP 114/59 L 07/01/22 09:15 Pulse Ox 99 07/01/22 09:15 O2 Del Method 07/01/22 07:19 O2 Flow Rate 2 06/29/22 14:00 BMI result Body Mass Index 26.6 Const: General: cooperative, healthy appearing and no acute distress Resp: Effort & Inspection: normal respiratory effort and able to speak in complete sentences Cardio: Rate: regular rate Peripheral pulses: Peripheral pulses 2+ throughout GI: Palpation (GI): Soft to palpation Skin: Lesions: no lesions Rashes: no rashes Extrem: Other: Right hip incision site is c/d/i. Anjelica intact. No erythema or drainage. NVI. DS: Data Data Completed and Pending Pending studies at discharge: Pending at discharge 06/29/22 12:22 Surgical [PTH] Routine Labs on day of discharge: Laboratory Results - last 24 hr 07/01/22 07/01/22 06:28 06:28 WBC 9.3 RBC 3.35 L Hgb 9.7 L Hct 30.3 L MCV 90.4 MCH 29.0 MCHC 32.0 RDW 12.6 Plt Count 176 MPV 10.6 Immature Gran % (Auto) 0.5 H Neut % (Auto) 78.2 H Lymph % (Auto) 11.2 L [place] % (Auto) 8.2 Eos % (Auto) 1.6 Baso % (Auto) 0.3 Lymph # (Auto) 1.0 L [place] # (Auto) 0.8 Eos # (Auto) 0.2 Baso # (Auto) 0.0 Abs Immat Gran (auto) 0.05 H Absolute Neuts (auto) 7.3 Absolute Nucleated RBC 0.000 Nucleated RBC % (auto) 0.0 Sodium 137 Potassium 4.2 Chloride 102 Carbon Dioxide 27 Anion Gap 12 BUN 16 Creatinine 0.75 Estim Creat Clear Calc 119.9 Estimated GFR > 60 Fasting Glucose 104 H Calcium 8.6 Discharge Plan Discharge Anticipated Discharge Date/Time: 07/01/22 12:56 Patient Disposition: Home Health Service Discharge Diagnosis: s/p RTHA Referrals: Francisco Crooks PA-C [Physician Audio Video Technician] - 2 Weeks (07/15/22 1:30 [facility] Francisco Crooks PA-C) Discharge Medications: New celecoxib 200 mg Capsule 200 mg PO BID 30 Days Qty: 60 0RF aspirin 325 mg Tablet 325 mg PO BID 42 Days Qty: 84 0RF oxycodone 10 mg tablet 10 mg PO Q4H PRN (Reason: Pain, Moderate (Pain Scale 4-6) 7 Days Qty: 42 0RF Rx Instructions: Partial Fill upon patient request. docusate sodium 100 mg Capsule 100 mg PO BID 30 Days Qty: 60 0RF Continued sennosides [senna] 8.6 mg tablet 2 tab PO DAILY PRN (Reason: Constipation) clonazepam 1 mg tablet 1 mg PO QAM gabapentin 600 mg tablet 600 mg PO TID methadone 40 mg tablet,soluble 92 mg PO DAILY amitriptyline 50 mg tablet 50 mg PO BEDTIME cyclobenzaprine 10 mg tablet 20 mg PO BEDTIME PRN (Reason: muscle spasm) melatonin 5 mg tablet 10 mg PO BEDTIME diclofenac sodium 1 % gel 2 g topical BID (DME[facility] See Rx Instructions .MEDSUPPLY Qty: 1 0RF Rx Instructions: Folding Front wheeled walker Discontinued docusate sodium 100 mg capsule 1 cap PO BID PRN (Reason: Constipation) naproxen [Naprosyn] 500 mg tablet 500 mg PO BID Qty: 20 0RF acetaminophen 650 mg tablet extended release 650 mg PO Q6H PRN (Reason: fever) Discharge Orders: Discharge Order (Routine); Ordered 07/01/22 Ordered By: Clara Mckinney Diet: Regular diet Activity on Discharge: Use cane or walker Stand Alone Forms: Patient Portal Discharge page Care Plan Goals: Restore function of joint Health Concerns: none Plan of Treatment: Physical Therapy Pain management DVT prophylaxis Assessment: Physical Therapy for Total hip arthroplasty: wbat, posterior precautions, gait training, ROM, strength Limit stair climbing No showering, no tub bath-keep dressing clean, dry and intact No driving x6 weeks Continue Aspirin twice a day x 6 weeks Follow up with [facility] in 2 weeks: --you will also have your first out patient PT eval on the day of your post op appt-so please plan on being in the office that day for an extended period of time.
--- NOTE | 2022-07-01 12:58 | P.F2F_ITS ---
Service Date Service Date: 07/01/22 Encounter Date of encounter: 07/01/22 Reasons for Services Signs and symptoms assessed: Pt. is considered homebound due to recent surgery. Unable to drive, poor balance, poor gait mechanics. S/p RTHA. Reason for physical therapy: home safety and mobility, therapeutic exercises, restore joint function, gait/transfer training, assess need for DME and ADL training Reason for occupational therapy: home safety and mobility, therapeutic exercises, restore joint function, gait/transfer training, assess need for DME and ADL training Homebound: Leaving the home is medically contraindicated at this time without the asist of a device and/or another person due th the listed conditions above and below. Reason homebound: unsteady gait / fall risk, leg weakness, pain with ambulation, pain with transfers, poor balance / fall risk and unable to drive Certification: Based on the above findings, I certify that this patient is confined to the home and needs intermittent [facility] care, physical therapy and/or speech therapy, or continues to need occupational therapy. The patient is under my care, and I have initiated the establishment of the plan of care. The patient will be followed by a physician who will periodically review the plan of care.
--- NOTE | 2022-07-01 13:20 | MHC.CM.PN ---
PATIENT IS DC HOME WITH [facility]. RN AWARE OF PLAN.
== END 2022-07-01 14:05 | disposition home health service (06) | DRG 470 ==
LOC: HO.SSSA 07:34 → HO.S3 13:27
PROVIDERS: Nurse Practitioner; Physician Assistant; Admitting Provider Orthopaedic Surgery; PCP Family Medicine; Visit Provider Orthopaedic Surgery
PROC: 0SR903A Replacement of Right Hip Joint with Ceramic Synthetic Substitute, Uncemented, Open Approach (ICD-10-PCS; CPT 27130; principal; 2022-06-29 09:40)
DX: M16.11 Unilateral primary osteoarthritis, right hip (principal); F11.20 Opioid dependence, uncomplicated; F19.20 Other psychoactive substance dependence, uncomplicated; F41.9 Anxiety disorder, unspecified; F10.21 Alcohol dependence, in remission; Z20.822 Contact with and (suspected) exposure to COVID-19; Z86.19 Personal history of other infectious and parasitic diseases; Z86.16 Personal history of COVID-19; Z79.899 Other long term (current) drug therapy
CPT/HCPCS: 36415; 72170; 80048; 80307; 85014; 85018; 85025; 86850; 86900; 86901; 87635; 87640; 87641; 88304; 88305; 88311; 97110; 97116; 97162; 97166; C1776; J0131; J0690; J1100; J1170; J2250; J2405; J2795; J3010

== ENCOUNTER → 2022-07-15 13:34 | Outpatient (BNVA) | payer MEDICARE, MEDICAID, SELFPAY | PROVIDERS: PCP Family Medicine; Visit Provider Physician Assistant | DX: Z13.89 Encounter for screening for other disorder (principal) | CPT/HCPCS: 99212 ==

== ENCOUNTER 2022-07-28 13:00 | Outpatient (RCR) | payer MEDICARE, MEDICAID, SELFPAY ==
--- NOTE | 2022-07-15 14:44 | MHC.PT.EP ---
[facility] [place] [facility] [address] Office [place] Office [address] Christina Conner [address] [phone] F: [phone] F: [phone] F: [phone] F: [phone] Physical Therapy Plan of Care Date of Evaluation: Date of Surgery: 06/29/22 Diagnosis: S/P RIGHT POSTERIOR APPROACH CORWIN Assessment: 52 YO MALE REF TO PT S/P RIGHT THR, POSTERIOR APPROACH, ON 06/29/22- HE RESIDES ALONE IN A 2ND FLOOR APT. HE HAS A H/O CERV LAMINECTOMY AND A H/O Rt LE SOFT TISSUE CONTRACTURES TH/OUT. HE IS CURRENTLY AMB W JOCELYNE AXILLARY CRUTCHES . OBJECTIVE FINDINGS: LIMITED SOFT TISSUE MOBILITY IN HIS TRUNK/ Rt HIP/ KNEE/ ANKLE SOFT TISSUES, SIGNIF TIGHT PSOAS MM JOCELYNE AND DECR ANKLE DF JOCELYNE; DECR STRENGTH IN PROX / LUMBOPELVIC AND Rt LE, POST-OP PAIN IN RIGHT KNEE (PER Pt Rt HIP PAIN SIGNIF REDUCED) ,AND HEALING Rt HIP INCISION. FUNCTIONALLY, Pt IS AMB W JOCELYNE CRUTCHES, WBAT Rt LE W Rt LE HIP FLEX AND IR- HE HAS COMPENSATORY GAIT, MODIFIED STAIR MGMT, DECR STANDING, SLEEPING, AND DECR LI TO ADLs . Pt IS A VERY GOOD PT CANDIDATE TO GUIDE HIM IN HIS POST-OP TKR COURSE, ADDRESSING THE ABOVE FINDINGS- ESPEC SOFT TISSUE MOBILIZATION W RESPECT TO POSTERIOR CORWIN, PAIN MGMT, AND MAXIMIZING FUNCTIONAL INDEPENDENCE. Frequency and Duration: The patient will be seen 2 x WK x 10 WKS Short Term Goals: *Pt WILL DEMON EFFICIENT GAIT MECHANICS W LEAST RESTRICTIVE ASST DEVICE ON LEVEL GROUND AND STAIRS *Pt'S RIGHT HIP PAIN WILL DECR TO 2-10/01 *Pt DEMON APPROP BED MOB/ POSITIONING/ SIT <-> STAND/ CAR TRANSFERS, WITH RESPECT TO CORWIN RESTRICTIONS *Pt DEMON IMPROVED Rt HIP EXT/ Rt KNEE AND ANKLE AROM AND REDUCE INFLUENCE OF Rt HIP FLEXOR TISSUE TIGHTNESS W RESPECT TO Rt POSTERIOR APPROACH CORWIN PRECAUTIONS [place] Goals: *Pt WILL IMPROVE LUMBOPELVIC/ Rt LE STRENGTH TO AT LEAST 5-/5 *Pt DEMON OVERALL IMPROVED FUNCTIONAL INDEP/ MOB EVIDENT W IMPROVED LEFI SCORE (AT EVAL 32/80 ) *Pt INDEP W PROGR HEP AND SELF-SX MGMT TECHN Treatment Plan: Modalities to reduce pain, spasms and effusion. Manual therapy to restore motion and function. Therapeutic exercise to improve strength and flexibility. Neuromuscular re-education for posture and balance. Therapeutic activities to return to functional activities of daily living. Electronically signed by: ARI STOCKTON,PT Please sign and return to therapist. Thank you for your referral.
--- NOTE | 2022-09-21 09:30 | MHC.PT.DC ---
[facility] [place] Office [place] Office [place] Office [address] Christina Conner [address] [phone] F: [phone] F: [phone] F: [phone] F: [phone] Physical Therapy Discharge Report Diagnosis: S/P RIGHT POSTERIOR APPROACH CORWIN Date of Surgery: 06/29/22 Date of Evaluation: 07/15/22 Date of Discharge: 09/21/22 Treatments to Date: 3 Cancellations to Date: 4 No Shows to Date: 2 Discharge Status: Visit Non-compliance Discharge Summary: Pt BENEFITTED FROM PT TO ADDRESS HIS GAIT MECH, DEV A HEP, AND ADDRESS SOFT TISSUE MOBILITY- Pt DISCHARGED CURRENTLY DUE TO POOR ATTENDANCE TO SCHED PT APPTS-> A FORMAL REASSESSMENT WAS NOT COMPLETED . Electronically signed by: ARI STOCKTON,PT Please sign and return to therapist. Thank you for your referral.
== END 2022-09-21 09:29 | disposition home or self-care (01) ==
LOC: HO.PT 13:00
PROVIDERS: Visit Provider Physician Assistant
DX: Z96.641 Presence of right artificial hip joint (principal)
CPT/HCPCS: 97110; 97116; 97140; 97163

== ENCOUNTER 2022-12-23 08:42 | Outpatient (REF) | payer MEDICARE, MEDICAID, SELFPAY ==
--- NOTE | ~2022-12-23 | XR_ITS ---
EXAMINATION: XR PELVIS CLINICAL INFORMATION: Hip pain COMPARISON: AP pelvis 06/29/2022 TECHNIQUE: AP view of the pelvis. FINDINGS: There is a total right hip prosthesis in alignment. No periprostatic loosening or fracture. There is moderate loss of left hip joint space with mild deformity of femoral head and subchondral cystic changes suggestive of advanced degenerative arthritic changes. The SI joints are normal. The pelvic bones are grossly unremarkable. XR/XR pelvis 1-2V IMPRESSION: 1. Total right hip prosthesis in alignment. No periprosthetic loosening or fracture. 2. Advanced degenerative arthritic changes left hip joint.
== END 2022-12-23 08:43 | disposition home or self-care (01) ==
LOC: HO.HOSX 08:42
PROVIDERS: Visit Provider Orthopaedic Surgery
DX: M25.551 Pain in right hip (principal); Z96.641 Presence of right artificial hip joint
CPT/HCPCS: 72170; 99212

== ENCOUNTER 2023-01-12 09:05 | Outpatient (REF) | payer MEDICARE, MEDICAID, SELFPAY ==
[2023-01-12 09:55] LABS: MANUAL DIFF FLAG NO
[2023-01-12 10:08] LABS: Basophils Percent Auto 0.5 % (0-2); Eosinophils Absolute Auto 0.2 X10*3/uL (0.0-0.4); Eosinophils Percent Auto 3.3 % (0-4); Hematocrit 37.8 % (42.0-52.0); Hemoglobin 12.1 g/dl (14.0-18.0); Imm Gran Abs Auto 0.03 X10*3/uL (0.00-0.03); Imm Gran Pct Auto 0.5 % (0.0-0.4); Lymphocytes Absolute Auto 1.3 X10*3/uL (1.2-4.9); Lymphocytes Percent Auto 22.8 % (20-40); Mean Corpuscular Hemoglobin 28.3 pg (27.0-33.0); Mean Corpuscular Volume 88.3 fL (80.0-98.0); Mean Platelet Volume 9.7 fL (9.4-12.4); Monocytes Absolute Auto 0.4 X10*3/uL (0.1-1.2); Monocytes Percent Auto 6.8 % (2-11); Neutrophils Absolute Auto 3.8 x10*3/uL (2.0-8.3); Neutrophils Percent Auto 66.1 % (45-73); Platelet Count 192 X10*3/uL (160-400); Red Blood Count 4.28 X10*6/uL (4.60-5.80); Red Cell Distribution Width 12.7 % (11.0-16.0); White Blood Count 5.7 X10*3/uL (4.8-10.8)
[2023-01-12 11:45] LABS: Ferritin 35 ng/mL (20-250); Iron 86 mcg/dL (45-160); Percent Iron Saturation 32 % (15-50); Total Iron Binding Capacity 272 mcg/dL (228-428); Unsaturated Iron Binding 186 ug/dL
== END 2023-01-12 09:06 | disposition home or self-care (01) ==
LOC: HO.LAB 09:05
PROVIDERS: PCP Family Medicine; Visit Provider Physician Assistant
DX: D64.9 Anemia, unspecified (principal)
CPT/HCPCS: 36415; 82728; 83540; 85025; 99202

== ENCOUNTER 2023-01-12 11:00 | Outpatient (RCR) | payer MEDICARE, MEDICAID, SELFPAY ==
--- NOTE | 2023-01-06 13:03 | MHC.PT.EP ---
[facility] [place] Office [place] Office [place] Office [address] Christina Conner [address] [phone] F: [phone] F: [phone] F: [phone] F: [phone] Physical Therapy Plan of Care Date of Evaluation: Date of Surgery: 06/29/22 Diagnosis: Degenerative disc disease S/P R CORWIN 06/29/23 Assessment: Cristobal is a 52 yo male referred to PT for degenerative disc disease S/P R CORWIN 06/29/23. On PT examination, he presented with following impairments- gross limitation in B hip ROM, B gross hip weakness, impaired gait, severe hip flexor tightness, anterior pelvic tilt, LBP, LE tightness, and lateral shift. Functional impairments include difficulty ambulating, difficulty with hip ROM due to tight hip flexors, and difficulty rolling in bed. Pt to benefit from skilled PT to address aforementioned impairments and functional limitations. PT to include LE ROM activities, gait training, pt edu, HEP, LE strengthening, balance activities, providing shoe lift, and postural education. Frequency and Duration: The patient will be seen 2x per week for 6 weeks Short Term Goals: In 3 weeks... 1. Pt will be independent with HEP demonstrated by 100% return demonstration of provided HEP 2. Pt will improved hip extension ROM in order to reduce anterior pelvic tilt to improve gait Fdc Goals: In 6 weeks... 1. Pt will present with increase in hip strength by 1 grade which will help ambulation with less pain and with less deviations 2. Pt will have better seated/standing posture in order to decrease strain and pain in LB. Treatment Plan: Modalities to reduce pain, spasms and effusion. Manual therapy to restore motion and function. Therapeutic exercise to improve strength and flexibility. Neuromuscular re-education for posture and balance. Therapeutic activities to return to functional activities of daily living. Electronically signed by: Cari Ramachandran PT DPT Please sign and return to therapist. Thank you for your referral.
--- NOTE | 2023-02-02 15:38 | MHC.PT.DC ---
[facility] [place] [facility] [place] [employer] [facility] [place] Office [address] Christina Conner [address] [phone] F: [phone] F: [phone] F: [phone] F: [phone] Physical Therapy Discharge Report Diagnosis: Degenerative disc disease S/P R CORWIN 06/29/23 Date of Surgery: 06/29/22 Date of Evaluation: 01/06/23 Date of Discharge: 02/02/23 Treatments to Date: 2 Cancellations to Date: 1 No Shows to Date: 4 Discharge Status: Visit Non-compliance Discharge Summary: Cristobal canceled 1 appointment and no showed for 4 after. He is therefore being d/c from PT for non compliance. Electronically signed by: Cari Ramachandran PT DPT Please sign and return to therapist. Thank you for your referral.
== END 2023-02-02 15:39 | disposition home or self-care (01) ==
LOC: HO.PT 11:00
PROVIDERS: PCP Family Medicine; Visit Provider Orthopaedic Surgery
DX: Z96.641 Presence of right artificial hip joint (principal)
CPT/HCPCS: 97110; 97140; 97162

== ENCOUNTER 2023-03-16 10:25 | Day surgery (SDC) | payer MEDICARE, MEDICAID, SELFPAY ==
[2023-03-14 13:33] VITALS: BMI 25.8
--- NOTE | 2023-03-15 11:56 | HO.ANESPROP2 ---
Documented by User: Kathleen Patino NP 03/15/23 11:57 HPI - Anesthesia Eval Consult details Narrative: 52yo M for Colonoscopy Methadone daily. Hx polysubstance PMFSH Active Problems Active Problems: All Active Problems (Updated 01/12/23 @ 09:25 by Lyric Rodriguez PA-C) Encounter for screening colonoscopy (Acute) S/P total right hip arthroplasty (Acute) COVID-19 (Acute) Primary osteoarthritis of right hip (Acute) Hx of substance abuse (Acute) Chronic right hip pain (Acute) Degenerative disc disease (Acute) Chronic back pain (Acute) Chronic anemia (Acute) History of alcohol abuse (Acute) Anxiety (Acute) Past Medical History Medical History Alcohol dependence in remission Anxiety Chronic anemia Chronic back pain Chronic right hip pain Degenerative disc disease Family history of pseudocholinesterase deficiency History of alcohol abuse History of COVID-19 History of hepatitis C Hx of substance abuse Rash Family History Family History Mother Osteoarthritis Family history of problems with anesthesia: Yes (Mother with succinylcholine allergy - difficult to wake up and reverse) Surgical History Surgical History History of laminectomy History of right inguinal hernia repair History of surgery History of Problems with Anesthesia: No Social History Social History (Updated 01/12/23 @ 09:25 by Lyric Rodriguez PA-C) Are you a primary mall plant caretaker to a significant other at home: No Do you presently have visiting nurse or other home services: No Alcohol intake: never Patient Tobacco Use Status: Current everyday Tobacco user Tobacco use type: Cigarette Cigarettes Per Day: 3 Years Smoked: 38 Substance Use Type: Amphetamines and Crack/Cocaine Advance Directives: No Advance Directives Information Provided: Yes Current occupational status: disabled Meds Allergies Allergy/AdvReac Type Severity Reaction Status Date / Time No Known Allergies Allergy Verified 01/12/23 09:16 Home Medications Medication Instructions Recorded Confirmed Last Taken Type clonazepam 1 mg tablet 1 mg PO QAM 05/22/20 06/24/22 06/29/22 04:30 History gabapentin 600 mg tablet 600 mg PO TID 05/22/20 06/24/22 Unknown History amitriptyline 50 mg tablet 50 mg PO BEDTIME 10/06/21 06/24/22 Unknown History cyclobenzaprine 10 mg tablet 20 mg PO BEDTIME PRN muscle spasm 10/06/21 06/24/22 Unknown History diclofenac sodium 1 % topical gel 2 g topical BID pain 10/06/21 06/24/22 Unknown History melatonin 5 mg tablet 10 mg PO BEDTIME 10/06/21 06/24/22 Unknown History methadone 40 mg soluble tablet 84 mg PO DAILY 12/23/22 Unknown History Exam Exam Date and Time: March 15, 2023 1156 Height,Weight and Vital Signs: Height 5 ft 10 in Weight 81.647 kg Assessment and Plan Assessment Anesthesia Assessment: Chart Reviewed Final Anesthetic Review Family History of Problems with Anesthesia: Yes (Mother with succinylcholine allergy - difficult to wake up and reverse) History of Problems with Anesthesia: No Documented by User: Deon Michaud MD 03/16/23 11:28 [facility] Past Medical History Medical History Alcohol dependence in remission Anxiety Chronic anemia Chronic back pain Chronic right hip pain Degenerative disc disease Family history of pseudocholinesterase deficiency History of alcohol abuse History of COVID-19 History of hepatitis C Hx of substance abuse Rash Family History Family History Mother Osteoarthritis Surgical History Surgical History History of laminectomy History of right inguinal hernia repair History of surgery Social History Social History (Updated 01/12/23 @ 09:25 by Lyric Rodriguez PA-C) Are you a primary mall plant caretaker to a significant other at home: No Do you presently have visiting nurse or other home services: No Alcohol intake: never Patient Tobacco Use Status: Current everyday Tobacco user Tobacco use type: Cigarette Cigarettes Per Day: 3 Years Smoked: 38 Substance Use Type: Amphetamines and Crack/Cocaine Advance Directives: No Advance Directives Information Provided: Yes Current occupational status: disabled Meds Allergies Allergy/AdvReac Type Severity Reaction Status Date / Time No Known Allergies Allergy Verified 01/12/23 09:16 Home Medications Medication Instructions Recorded Confirmed Last Taken Type clonazepam 1 mg tablet 1 mg PO QAM 05/22/20 06/24/22 06/29/22 04:30 History gabapentin 600 mg tablet 600 mg PO TID 05/22/20 06/24/22 Unknown History amitriptyline 50 mg tablet 50 mg PO BEDTIME 10/06/21 06/24/22 Unknown History cyclobenzaprine 10 mg tablet 20 mg PO BEDTIME PRN muscle spasm 10/06/21 06/24/22 Unknown History diclofenac sodium 1 % topical gel 2 g topical BID pain 10/06/21 06/24/22 Unknown History melatonin 5 mg tablet 10 mg PO BEDTIME 10/06/21 06/24/22 Unknown History methadone 40 mg soluble tablet 84 mg PO DAILY 12/23/22 Unknown History Exam Airway Mallampati Class: II TM Dist: >3cm Heart: rrr Lungs: cta cta Assessment and Plan Assessment Anesthesia Assessment: Anesthesia Plan Discussed Final Anesthetic Review NPO: Yes ASA Class: III Final Preanesthetic Review: No Changes in Pt Med Stat, Meds/Allgs Chart Reviewed, Consent Obtained/Reviewed and Anes Risks/Benef Reviewed Patient Risk: Intermediate Procedure Risk: Low Anesthetic Plan Anesthetic Plan: MAC: and Agree w/ Assess. and Plan Disposition: Standard PACU
[2023-03-16 11:37] VITALS: BP 127/95; PULSE 60; RESP 16; TEMP 36.5; O2SAT 94; BMI 25.8
[2023-03-16] MEDS: Lactated Ringers 1,000 ML 100 ML IVCONT (12:10)
--- NOTE | 2023-03-16 12:30 | MHC.SHP ---
Pre-Procedural Eval Section A Date of Service: 03/16/23 Section B Chief Complaint: Screening Relevant Family History (Specify if Yes): No Relevant Social History: Tobacco Use Present Medications: see Short Stay Collaborative assessment Medical History: Significant History (Alcohol dependence in remission Anxiety Chronic anemia Chronic back pain Chronic right hip pain Degenerative disc disease Family history of pseudocholinesterase deficiency History of alcohol abuse History of COVID-19 History of hepatitis C Hx of substance abuse Rash) History of Previous Operations: Relevant previous surgery/procedure and date(s) (History of laminectomy History of right inguinal hernia repair History of surgery) Allergies: Allergies Allergy/AdvReac Type Severity Reaction Status Date / Time No Known Allergies Allergy Verified 01/12/23 09:16 Review of Systems Sugical H&P ROS: Negative: Constitution, Cardiovascular, Respiratory, Neurological, Psychiatric, Hem-Onc, Allergic/Immunologic, Gastrointestinal, Genitourinary, Musculoskeletal, Integumentary, Endocrine and Eyes/Ears/Nose/Throat Exam Surgical H&P Exam: Normal: HEENT, Normal: Heart, Normal: Lungs, Normal: Extremities, Normal: Abdomen, Normal: Skin and Normal: Neurological Plan Diagnosis/Plan: Unchanged I have reviewed the history and physical and performed a pertinent physical examination on my patient. No changes have occurred unless specified. Time Spent With Patient Time: Total time managing care of this patient today ____ minutes.
--- NOTE | 2023-03-16 12:46 | P.OP_ITS ---
Operative Note Operative Note Date of Service: 03/16/23 Narrative: Operative Information Procedure Description: Colonoscopy Indication: screening Anesthesia: MAC COLONOSCOPY Instrument: Olympus variable stiffness pediatric scope 190L Colonoscopy Monitoring: Vital signs and clinical assessment, continuous EKG monitoring, Pulse oximetry, Carbon Dioxide monitoring and blood pressure monitoring were done throughout the procedure. Colon withdrawal time was 11 minutes. Procedure: The patient was placed in the left lateral decubitis position and pre-procedure medications were administered. After a digital rectal examination of the ano-rectum, the video colonoscope was inserted into the rectum and advanced through the colon to the cecum/TI. The colonoscope was slowly withdrawn in a retrograde panoramic fashion and the colon mucosa was carefully examined including a retroflexed view of the rectum. Findings and interventions are described below. Procedure Difficulty: easy Findings: Terminal Ileum-normal Cecum: 4-6 mm sessile polyp removed with cold forceps Ascending Colon: normal Transverse Colon -normal Descending Colon:normal Sigmoid Colon: normal Rectum: Retroflexion with medium sized internal hemorrhoids, grade I, 10 mm sessile polyp at rectosigmoid junction removed with cold snare Anorectum - normal Colon preparation: [place] Bowel Preparation Scale Right colon; 2 Transverse colon: 2 Left colon; 1-2 (0 = Unprepared colon segment with mucosa not seen due to solid stool that cannot be cleared. 1 = Portion of mucosa of the colon segment seen, but other areas of the colon segment not well seen due to staining, residual stool and/or opaque liquid. 2 = Minor amount of residual staining, small fragments of stool and/or opaque liquid, but mucosa of colon segment seen well. 3 = Entire mucosa of colon segment seen well with no residual staining, small fragments of stool or opaque liquid) Impression and Post Procedure Diagnosis: polyps internal hemorrhoids Plan: High fiber diet leaflet Avoid straining at stool, epsom salts and sitz bath, anusol supps or cream Repeat Colonoscopy in 2-3 years due to areas of fair to poor prep in left colon or earlier if clinically indicated Above findings were reviewed with the patient and relevant handouts were provided if indicated.
[2023-03-16 13:15] VITALS: BP 95/52; PULSE 56; RESP 16; TEMP 36.2; O2SAT 95
[2023-03-16 13:30] VITALS: BP 102/57; PULSE 71; RESP 16; O2SAT 99
[2023-03-16 13:45] VITALS: BP 116/74; PULSE 59; RESP 16; TEMP 36.3; O2SAT 99
== END 2023-03-16 14:14 | disposition home or self-care (01) ==
PROVIDERS: PCP Family Medicine; Visit Provider Internal Medicine Gastroenterology
PROC: 0DJD8ZZ Inspection of Lower Intestinal Tract, Via Natural or Artificial Opening Endoscopic (ICD-10-PCS; CPT 45378; principal; 2023-03-16 15:00)
DX: Z12.11 Encounter for screening for malignant neoplasm of colon (principal); D12.0 Benign neoplasm of cecum; K62.1 Rectal polyp; K64.0 First degree hemorrhoids; D64.9 Anemia, unspecified; F11.20 Opioid dependence, uncomplicated; F10.21 Alcohol dependence, in remission; F17.210 Nicotine dependence, cigarettes, uncomplicated; Z86.19 Personal history of other infectious and parasitic diseases; Z79.899 Other long term (current) drug therapy
CPT/HCPCS: 45380; 45385; 88305

== ENCOUNTER → 2023-03-16 10:25 | Outpatient (BNV) | payer MEDICARE, MEDICAID, SELFPAY | PROVIDERS: PCP Family Medicine; Visit Provider Internal Medicine Gastroenterology | DX: Z12.11 Encounter for screening for malignant neoplasm of colon (principal); D12.0 Benign neoplasm of cecum; D12.8 Benign neoplasm of rectum; K64.0 First degree hemorrhoids | CPT/HCPCS: 45380; 45385 ==

== ENCOUNTER 2023-04-11 12:21 | Outpatient (AMB) | payer MEDICARE, MEDICAID, SELFPAY ==
--- NOTE | 2023-04-11 12:24 | A.OFFVIS_ITS ---
Intake Vital Signs 04/11/23 12:25 Height 5 ft 10 in Intake Visit Reasons: NEW PROB- LEFT HIP PAIN Intake Note: The patient agreed to use of a medical record assistant during this encounter. Scribed for Dr. Jones Nichols by Carrie Chapa, medical record assistant, on 04/11/2023 at 12:30 pm EST. Jain is a 53 year old male who presents today for a follow up of his left hip pain. He continues to have pain in the hip that makes daily activities difficult. Allergies No Known Allergies Allergy (Verified 01/12/23 09:16) HPI NEW PROB- LEFT HIP PAIN HPI Details Cristobal Enriquez is a 53 year old male who presents today for a follow up of his left hip pain. He states that he is healing well from his right CORWIN but still is having slight pressure. He is walking better everyday but limited by his left hip. He has groin pain and feels that he cannot engage in daily activities without pain. [facility] Medical History Rash Family history of pseudocholinesterase deficiency Alcohol dependence in remission Hx of substance abuse History of COVID-19 Chronic right hip pain Degenerative disc disease Chronic back pain History of hepatitis C Chronic anemia History of alcohol abuse Anxiety Surgical History Hx of colonoscopy History of surgery History of right inguinal hernia repair History of laminectomy Family History Mother Osteoarthritis Social History Are you a primary career and technology education teacher to a significant other at home: No Do you presently have visiting nurse or other home services: No Alcohol intake: never Patient Tobacco Use Status: Current everyday Tobacco user Tobacco use type: Cigarette Cigarettes Per Day: 3 Years Smoked: 38 Substance Use Type: Amphetamines and Crack/Cocaine Current occupational status: disabled Physical Exam Const Other: Continues to walk with a gate and lower back pain with hyperextension; flexion past 90 degrees. His radiographs on the right show normal or expected position. Extrem Other: No groin pain with right hip ROM Left hip with + impingement and severely limited motion right hip Results Reviewed Results Reviewed: I personally reviewed relevant radiographs. Right CORWIN in expected post operative position with no hardware complications or evidence of loosening Left hip OA Assessment & Plan Assessment & Plan (1) S/P total right hip arthroplasty: Code(s): Z96.641 - Presence of right artificial hip joint Plan: Cristobal is a 53 yo M who has bilateral hip[ OA. He is in recovery and has done very well after his right CORWIN. He would benefit from left CORWIN. I discussed this with him. He continue to wean off Methadone and is taking NSAIDs without benefit. I discussed the risks benefits and alternatives including but not limited to the risk of pain, infection, stiffness, need for further surgery as well as potential medical complications such as blood clots, pulmonary embolism and cardiac complications. We will proceed forward with left CORWIN. (2) Primary osteoarthritis of right hip: Code(s): M16.11 - Unilateral primary osteoarthritis, right hip Coding Level of Care Code Est Pt Level 4 (87887) Diagnoses S/P total right hip arthroplasty Z96.641 Primary osteoarthritis of right hip M16.11
== END 2023-04-11 12:45 | disposition home or self-care (01) ==
PROVIDERS: PCP Family Medicine; Visit Provider Orthopaedic Surgery
DX: M16.11 Unilateral primary osteoarthritis, right hip (principal); Z96.641 Presence of right artificial hip joint
CPT/HCPCS: 99214

== ENCOUNTER → 2023-04-11 12:21 | Outpatient (BNVA) | payer MEDICARE, MEDICAID, SELFPAY | PROVIDERS: PCP Family Medicine; Visit Provider Orthopaedic Surgery | DX: M16.11 Unilateral primary osteoarthritis, right hip (principal); Z96.641 Presence of right artificial hip joint | CPT/HCPCS: 99212 ==

== ENCOUNTER 2023-07-12 10:26 | Outpatient (REF) | payer MEDICARE, MEDICAID, SELFPAY ==
[2023-07-12 11:18] LABS: MANUAL DIFF FLAG NO
[2023-07-12 11:29] LABS: Basophils Percent Auto 0.4 % (0-2); Eosinophils Absolute Auto 0.2 X10*3/uL (0.0-0.4); Eosinophils Percent Auto 4.3 % (0-4); Hematocrit 37.5 % (42.0-52.0); Imm Gran Abs Auto 0.03 X10*3/uL (0.00-0.03); Imm Gran Pct Auto 0.6 % (0.0-0.4); Lymphocytes Absolute Auto 1.4 X10*3/uL (1.2-4.9); Lymphocytes Percent Auto 28.4 % (20-40); Mean Corpuscular Hemoglobin 28.8 pg (27.0-33.0); Mean Corpuscular Volume 89.9 fL (80.0-98.0); Mean Platelet Volume 10.6 fL (9.4-12.4); Monocytes Absolute Auto 0.3 X10*3/uL (0.1-1.2); Monocytes Percent Auto 6.5 % (2-11); Neutrophils Percent Auto 59.8 % (45-73); Platelet Count 158 X10*3/uL (160-400); Red Blood Count 4.17 X10*6/uL (4.60-5.80); Red Cell Distribution Width 12.4 % (11.0-16.0); White Blood Count 5.1 X10*3/uL (4.8-10.8)
[2023-07-12 12:19] LABS: Anion Gap 13 (12-20); Blood Urea Nitrogen 12 mg/dL (9-16); Calcium 8.8 mg/dL (8.4-10.2); Carbon Dioxide 27 mmol/L (22-29); Chloride 105 mmol/L (96-108); Estimated Glomerular Filt Rate > 60; Glucose Random 119 mg/dL (60-115); Potassium 4.3 mmol/L (3.3-5.1); Sodium 141 mmol/L (135-145)
== END 2023-07-12 10:27 | disposition home or self-care (01) ==
LOC: HO.HHCL 10:26
PROVIDERS: Visit Provider Family Medicine
DX: Z01.818 Encounter for other preprocedural examination (principal)
CPT/HCPCS: 36415; 80048; 85025

== ENCOUNTER → 2023-07-15 12:49 | Outpatient (BNV) | payer MEDICARE, MEDICAID, SELFPAY | PROVIDERS: Admitting Provider Orthopaedic Surgery; PCP Family Medicine; Visit Provider Internal Medicine Cardiovascular Disease | DX: R00.1 Bradycardia, unspecified (principal) | CPT/HCPCS: 93010 ==

== ENCOUNTER → 2023-07-21 13:04 | Outpatient (BNVA) | payer MEDICARE, MEDICAID, SELFPAY | PROVIDERS: PCP Family Medicine; Visit Provider Physician Assistant ==

== ENCOUNTER 2023-07-26 06:52 | Inpatient (IN) | payer MEDICARE, MEDICAID, SELFPAY ==
[2023-07-15 12:20] VITALS: BP 123/67; PULSE 63; RESP 20; O2SAT 98; BMI 28.3
--- NOTE | 2023-07-15 12:49 | ECG_ITS ---
Test Reason : preop Blood Pressure : / mmHG Vent. Rate : 057 BPM Atrial Rate : 057 BPM P-R Int : 154 ms QRS Dur : 102 ms QT Int : 440 ms P-R-T Axes : 057 037 029 degrees QTc Int : 428 ms Sinus bradycardia Incomplete right bundle branch block Borderline ECG When compared with ECG of 04-JUN-2022 09:35, No significant change was found Referred By: Francisco Crooks Electronically Signed By:JAY RHOADES MD
[2023-07-15 14:41] LABS: MRSA Nasal PCR NEGATIVE (Negative); SA Nasal PCR NEGATIVE (Negative)
--- NOTE | 2023-07-22 09:22 | HO.ANESPROP2 ---
HPI - Anesthesia Eval Consult details Narrative: 52yo M for Left Hip Total Replacement s/p Right CORWIN 2021 without issue PCP cleared Hx polysub abuse - methadone daily Mom with pseudocholinesterase deficiency. Pt never tested but no hx anesthesia issue. Pt seen in PAT 07/15/[address] Sewell [facility] Active Problems Active Problems: All Active Problems (Updated 07/21/23 @ 13:52 by Francisco Crooks PA-C) Osteoarthritis of left hip (Acute) Encounter for screening colonoscopy (Acute) S/P total right hip arthroplasty (Acute) Primary osteoarthritis of right hip (Acute) COVID-19 (Acute) Hx of substance abuse (Acute) Chronic right hip pain (Acute) Degenerative disc disease (Acute) Chronic back pain (Acute) Chronic anemia (Acute) History of alcohol abuse (Acute) Anxiety (Acute) Past Medical History Medical History Rash Family history of pseudocholinesterase deficiency Alcohol dependence in remission Hx of substance abuse History of COVID-19 Chronic right hip pain Degenerative disc disease Chronic back pain History of hepatitis C Chronic anemia History of alcohol abuse Anxiety Family History Family History Mother Osteoarthritis Family history of problems with anesthesia: Yes (Mother with succinylcholine allergy - difficult to wake up and reverse) Surgical History Surgical History History of total right hip arthroplasty Hx of colonoscopy History of surgery History of right inguinal hernia repair History of laminectomy History of Problems with Anesthesia: No Social History Social History Household Members: None Housing: Apartment Housing Other:: second floor Are you a primary occasional caregiver to a significant other at home: No Do you presently have visiting nurse or other home services: No Alcohol intake: never Comment: Pt. refused supervision/ steady walking with crutches. Patient Tobacco Use Status: Current someday Tobacco user Tobacco use type: Cigarette Cigarettes Per Day: 3 Years Smoked: 39 Substance Use Type: Amphetamines and Crack/Cocaine service: No Current occupational status: disabled Meds Allergies Allergy/AdvReac Type Severity Reaction Status Date / Time No Known Allergies Allergy Verified 07/21/23 13:11 Home Medications Medication Instructions Recorded Confirmed Last Taken Type clonazepam 1 mg tablet 1 mg PO DAILY 05/22/20 07/26/23 07/26/23 06:00 History gabapentin 600 mg tablet 600 mg PO BEDTIME 05/22/20 07/26/23 07/21/23 History cyclobenzaprine 10 mg tablet 20 mg PO BEDTIME PRN muscle spasm 10/06/21 07/26/23 07/21/23 History methadone 40 mg soluble tablet 75 mg PO DAILY 12/23/22 07/15/23 03/16/23 06:30 History amitriptyline 75 mg tablet 75 mg PO BEDTIME 07/26/23 07/26/23 Unknown History calcium polycarbophil 625 mg 625 mg PO DAILY 07/26/23 07/26/23 Unknown History tablet (Fiber-Lax) [id number] 1 tab PO DAILY 07/26/23 07/26/23 Unknown History fumarate 7.5 mg-folic acid 400 mcg tablet oxycodone 5 mg tablet 5 mg PO BEDTIME PRN severe pain 07/26/23 07/26/23 Unknown History Exam Height,Weight and Vital Signs: Height 5 ft 10 in Weight 89.358 kg Last Vital Signs Pulse 63 07/15/23 12:20 Resp 20 07/15/23 12:20 BP 123/67 07/15/23 12:20 Pulse Ox 98 07/15/23 12:20 O2 Del Method Room Air 07/15/23 12:20 Pertinent Lab Results Pertinent Lab Results: Laboratory Tests 07/15/23 07/15/23 12:30 12:58 Nasal Screen MRSA (PCR) NEGATIVE Nasal S. aureus Screen NEGATIVE Nasal MRSA/S.aureus Interp SEE NOTE Blood Type O Positive Antibody Screen NEGATIVE Laboratory Tests 07/12/23 10:32 WBC 5.1 Hgb 12.0 L Hct 37.5 L Plt Count 158 L Sodium 141 Potassium 4.3 Chloride 105 Carbon Dioxide 27 BUN 12 Creatinine 0.83 Narrative Narrative: EKG 06/2023 Vent. Rate : 057 BPM Atrial Rate : 057 BPM P-R Int : 154 ms QRS Dur : 102 ms QT Int : 440 ms P-R-T Axes : 057 037 029 degrees QTc Int : 428 ms Sinus bradycardia Incomplete right bundle branch block Borderline ECG When compared with ECG of 04-JUN-2022 09:35, No significant change was found Assessment and Plan Assessment Anesthesia Assessment: Chart Reviewed Final Anesthetic Review Family History of Problems with Anesthesia: Yes (Mother with succinylcholine allergy - difficult to wake up and reverse) History of Problems with Anesthesia: No
[2023-07-26] VITALS (19 sets, daily range): BP systolic 103–158; BP diastolic 70–109; PULSE 76–100; RESP 10–18; TEMP 36.1–36.9; O2SAT 92–100; BMI 28.3; BMI 28.4
[2023-07-26] MEDS: Lactated Ringers 1,000 ML 100 ML IVCONT ×5 (06:56→22:55)
[2023-07-26] MEDS: oxyCODONE HCl ER 10 MG TAB.ER.12H PO ×2 (06:57→20:15)
--- NOTE | 2023-07-26 07:01 | PHA.MEDREC ---
Pharmacy Consult ? Medication Reconciliation Pharmacy has completed the medication reconciliation. Reviewed med rec done by nursing
--- NOTE | 2023-07-26 07:07 | PC.NURSE ---
called and left message for confirmation of methadone last taken dr sood sts he should get in pacu when he wakes up or in admission room
--- NOTE | 2023-07-26 07:12 | HO.ANESPROP2 ---
ON LICENSE OF [facility] Active Problems Active Problems: All Active Problems (Updated 07/21/23 @ 13:52 by Francisco Crooks PA-C) Osteoarthritis of left hip (Acute) Encounter for screening colonoscopy (Acute) S/P total right hip arthroplasty (Acute) Primary osteoarthritis of right hip (Acute) COVID-19 (Acute) Hx of substance abuse (Acute) Chronic right hip pain (Acute) Degenerative disc disease (Acute) Chronic back pain (Acute) Chronic anemia (Acute) History of alcohol abuse (Acute) Anxiety (Acute) Past Medical History Medical History Rash Family history of pseudocholinesterase deficiency Alcohol dependence in remission Hx of substance abuse History of COVID-19 Chronic right hip pain Degenerative disc disease Chronic back pain History of hepatitis C Chronic anemia History of alcohol abuse Anxiety Functional capacity: independent ambulation Family History Family History Mother Osteoarthritis Family history of problems with anesthesia: Yes (Mother with succinylcholine allergy - difficult to wake up and reverse) Surgical History Surgical History History of total right hip arthroplasty Hx of colonoscopy History of surgery History of right inguinal hernia repair History of laminectomy History of Problems with Anesthesia: No Social History Social History Are you a primary customer care assistant to a significant other at home: No Do you presently have visiting nurse or other home services: No Alcohol intake: never Patient Tobacco Use Status: Current everyday Tobacco user Tobacco use type: Cigarette Cigarettes Per Day: 2 Years Smoked: 39 Use of substances other than those prescribed or required for medical reasons: Yes Substance Use Type: Amphetamines and Crack/Cocaine Substance Use Type Other:: clean since 2010 other than marijuana-taking methadone Substance Use Frequency: Chronic Longstanding Have you been hit, kicked, punched, or otherwise hurt by someone within the past year? If so, by whom?: No Are you DNR?: No Advance Directives: No Advance Directives Information Provided: No (declined form) Advance Directives on File: No Recently lost weight without trying: No Eating poorly because of decreased appetite: No Nutrition Risks: No Nutritional Risk Poor oral hygiene: No (missing teeth-molars) Current occupational status: disabled Meds Allergies Allergy/AdvReac Type Severity Reaction Status Date / Time No Known Allergies Allergy Verified 07/21/23 13:11 Active Medications: Current Medications Cefazolin Sodium/Dextrose (Ancef) 2 gm in 50 mls @ 100 mls/hr IV PREOP ONE Stop: 07/26/23 07:21 Lactated Ringer's (Lr) 1,000 mls @ 100 mls/hr IVCONT .Q10H JAZZY Last Admin: 07/26/23 06:56 Dose: 100 mls/hr Home Medications Medication Instructions Recorded Confirmed Last Taken Type clonazepam 1 mg tablet 1 mg PO QAM 05/22/20 07/15/23 07/26/23 06:00 History gabapentin 600 mg tablet 600 mg PO BEDTIME 05/22/20 07/15/23 07/21/23 History amitriptyline 50 mg tablet 50 mg PO BEDTIME 10/06/21 07/15/23 07/21/23 History cyclobenzaprine 10 mg tablet 20 mg PO BEDTIME PRN muscle spasm 10/06/21 07/15/23 07/21/23 History methadone 40 mg soluble tablet 75 mg PO DAILY 12/23/22 07/15/23 03/16/23 06:30 History aspirin 325 mg tablet 325 mg PO QAM 07/15/23 07/15/23 07/12/23 History Exam Height,Weight and Vital Signs: Height 5 ft 10 in Weight 89.4 kg Last Vital Signs Temp 97 F 07/26/23 06:28 Pulse 90 07/26/23 06:28 Resp 18 07/26/23 06:28 BP 131/93 H 07/26/23 06:28 Pulse Ox 98 07/26/23 06:28 O2 Del Method Room Air 07/26/23 06:28 Pertinent Lab Results Pertinent Lab Results: Laboratory Tests 07/15/23 07/15/23 12:30 12:58 Nasal Screen MRSA (PCR) NEGATIVE Nasal S. aureus Screen NEGATIVE Nasal MRSA/S.aureus Interp SEE NOTE Blood Type O Positive Antibody Screen NEGATIVE Airway Mallampati Class: II TM Dist: >3cm Neck ROM: Full Heart: RRR Lungs: CTA Assessment and Plan Assessment Anesthesia Assessment: Anesthesia Plan Discussed, Smoking Cess. Discussed and Chart Reviewed Final Anesthetic Review Family History of Problems with Anesthesia: Yes (Mother with succinylcholine allergy - difficult to wake up and reverse) History of Problems with Anesthesia: No ASA Class: II Final Preanesthetic Review: Meds/Allgs Chart Reviewed, Consent Obtained/Reviewed and Anes Risks/Benef Reviewed Patient Risk: Intermediate Procedure Risk: Intermediate Anesthetic Plan Anesthetic Plan: GA Disposition: Standard PACU
--- NOTE | 2023-07-26 09:43 | P.BOP_ITS ---
Brief Operative Note Date of Service: 07/26/23 Pre-op diagnosis: Left hip OA Post-op diagnosis: same Procedure: Left CORWIN Implants: [place] Trident2 56/20 deg lip[ Sukhdeep Accolade2#6 132 deg with +2.5 36 ceramic Surgeon: Jones Nichols MD Anesthesia: GETA Was an Lithographic Printing Machinist used for this Procedure?: Yes Lithographic Printing Machinist: Clara Mckinney Estimated blood loss (mL): 250 IV fluids (mL): 1,000 Pathology: other Condition: stable Disposition: PACU
[2023-07-26] MEDS: HYDROmorphone HCl 0.5 MG/0.5 ML SYRINGE IVPUSH ×6 (10:19→20:15)
--- NOTE | 2023-07-26 10:32 | HE.PHANOTE ---
METHADONE CONFIRMATION FORM 75 MG FROM TAKE HOME BOTTLES LAST DOSE 07/25/2023
[2023-07-26] MEDS: methADONE HCl 20 MG/2 ML ORAL.CONC 75 MG PO (10:55)
[2023-07-26] MEDS: oxyCODONE HCl Immed Release 5 MG TABLET 10 MG PO ×3 (12:21→22:54)
[2023-07-26] MEDS: clonazePAM 1 MG TABLET PO (13:08)
[2023-07-26] MEDS: Celecoxib 200 MG CAPSULE PO ×2 (13:08→20:16)
[2023-07-26] MEDS: ceFAZolin Sodium/Dextrose,Iso 2 GM/50 ML PIGGYBACK IV (13:31)
--- NOTE | 2023-07-26 14:54 | PHA.MEDREC ---
Pharmacy Consult ? Medication Reconciliation Pharmacy has completed the medication reconciliation. Spoke to patient.
--- NOTE | 2023-07-26 15:37 | HO.PM.IMCN ---
History of Present Illness Data of Consult Service Date: 07/26/23 Primary Care Provider: Zahraa Roca DO HPI Reason for consult: Medical management postop hip replacement Routine medical consultation for medical management of 53-year-old male with essentially no severe comorbidities who underwent an elective left total hip replacement today without issue. Patient seen in the immediate postop period and was ambulating with walker with physical therapy. Pain control acceptable Review of Systems Review of Systems: Denies chest pain Denies shortness of breath Denies nausea vomiting diarrhea Denies fever chills PMFSH Medical History Rash Family history of pseudocholinesterase deficiency Alcohol dependence in remission Hx of substance abuse History of COVID-19 Chronic right hip pain Degenerative disc disease Chronic back pain History of hepatitis C Chronic anemia History of alcohol abuse Anxiety Functional capacity: independent ambulation Family History Mother Osteoarthritis Surgical History History of total right hip arthroplasty Hx of colonoscopy History of surgery History of right inguinal hernia repair History of laminectomy Social History Are you a primary toddler caregiver to a significant other at home: No Do you presently have visiting nurse or other home services: No Alcohol intake: never Patient Tobacco Use Status: Current everyday Tobacco user Tobacco use type: Cigarette Cigarettes Per Day: 2 Years Smoked: 39 Use of substances other than those prescribed or required for medical reasons: Yes Substance Use Type: Amphetamines and Crack/Cocaine Substance Use Type Other:: clean since 2010 other than marijuana-taking methadone Substance Use Frequency: Chronic Longstanding Have you been hit, kicked, punched, or otherwise hurt by someone within the past year? If so, by whom?: No Are you DNR?: No Advance Directives: No Advance Directives Information Provided: No (declined form) Advance Directives on File: No Recently lost weight without trying: No Eating poorly because of decreased appetite: No Nutrition Risks: No Nutritional Risk Poor oral hygiene: No (missing teeth-molars) Current occupational status: disabled Meds Allergies Allergy/AdvReac Type Severity Reaction Status Date / Time No Known Allergies Allergy Verified 07/21/23 13:11 Active Medications: Current Medications Acetaminophen (Acetaminophen 325 Mg Tablet) 650 mg PO Q6H PRN PRN Reason: Pain, Mild (Pain Scale 1-3) Amitriptyline HCl (Amitriptyline Hcl 50 Mg Tablet) 50 mg PO BEDTIME [facility] Aspirin (Aspirin 325 Mg Tablet) 325 mg PO Q12H [facility] Celecoxib (Celecoxib 200 Mg Capsule) 200 mg PO BID [facility] Last Admin: 07/26/23 13:08 Dose: 200 mg Clonazepam (Clonazepam 1 Mg Tablet) 1 mg PO DAILY [facility] Last Admin: 07/26/23 13:08 Dose: 1 mg Cyclobenzaprine HCl (Cyclobenzaprine Hcl 10 Mg Tablet) 20 mg PO BEDTIME PRN PRN Reason: muscle spasm Gabapentin (Gabapentin 600 Mg Tablet) 600 mg PO BEDTIME [facility] Hydromorphone HCl (Hydromorphone Hcl 0.5 Mg/0.5 Ml Syringe) 0.5 mg IVPUSH Q4H PRN; Protocol PRN Reason: Pain, Severe (Pain Scale 7-10) Lactated Ringer's (Lr) 1,000 mls @ 100 mls/hr IVCONT .Q10H [facility] Last Admin: 07/26/23 13:45 Dose: 100 mls/hr Methadone HCl (Methadone Hcl 20 Mg/2 Ml Oral.Conc) 75 mg PO DAILY [facility] Ondansetron HCl (Ondansetron Hcl 4 Mg/2 Ml Vial) 4 mg IVPUSH ONCE PRN PRN Reason: Nausea and Vomiting Ondansetron HCl (Ondansetron Hcl 4 Mg/2 Ml Vial) 4 mg IVPUSH Q8H PRN PRN Reason: Nausea and Vomiting Oxycodone HCl (Oxycodone Hcl Immed Release 5 Mg Tablet) 10 mg PO Q4H PRN PRN Reason: Pain, Moderate(Pain Scale 4-6) Last Admin: 07/26/23 12:21 Dose: 10 mg Oxycodone HCl (Oxycodone Hcl Er 10 Mg Tab.Er.12h) 10 mg PO BID [facility] Last Admin: 07/26/23 13:03 Dose: Not Given Sodium Chloride (0.9 % Sodium Chloride Flush 3 Ml Syringe) 3 ml IVFLUSH QSHIFT [facility] Last Admin: 07/26/23 14:03 Dose: Not Given Home Medications Medication Instructions Recorded Confirmed Last Taken Type clonazepam 1 mg tablet 1 mg PO DAILY 05/22/20 07/26/23 07/26/23 06:00 History gabapentin 600 mg tablet 600 mg PO BEDTIME 05/22/20 07/26/23 07/21/23 History cyclobenzaprine 10 mg tablet 20 mg PO BEDTIME PRN muscle spasm 10/06/21 07/26/23 07/21/23 History methadone 40 mg soluble tablet 75 mg PO DAILY 12/23/22 07/15/23 03/16/23 06:30 History amitriptyline 75 mg tablet 75 mg PO BEDTIME 07/26/23 07/26/23 Unknown History calcium polycarbophil 625 mg 625 mg PO DAILY 07/26/23 07/26/23 Unknown History tablet (Fiber-Lax) [id number] 1 tab PO DAILY 07/26/23 07/26/23 Unknown History fumarate 7.5 mg-folic acid 400 mcg tablet oxycodone 5 mg tablet 5 mg PO BEDTIME PRN severe pain 07/26/23 07/26/23 Unknown History Physical Exam Vital Signs and Narrative: Vital Signs: Last Vital Signs Temp 97.9 F 07/26/23 15:30 Pulse 81 07/26/23 15:30 Resp 16 07/26/23 15:30 BP 117/77 07/26/23 15:30 Pulse Ox 92 07/26/23 15:30 O2 Del Method Room Air 07/26/23 15:30 O2 Flow Rate 2 07/26/23 11:51 BMI result Body Mass Index 28.4 Assessment and Plan (1) S/P total left hip arthroplasty: Status: Acute Plan 53-year-old male status post elective left hip arthroplasty seen in consultation for routine medical management history is include chronic anemia that is stable and history of substance abuse managed with methadone 1. S/P left hip arthroplasty -no acute issues in the immediate postoperative. -further treatment as per Orthopedics 2. History of opioid abuse -has been stable on 75 mg of methadone daily -continue same 3. Anxiety Will control current therapies -continue Klonopin as ordered
[2023-07-26] MEDS: Amitriptyline HCl 50 MG TABLET PO (20:16)
[2023-07-26] MEDS: Gabapentin 600 MG TABLET PO (20:16)
[2023-07-26] MEDS: Acetaminophen 325 MG TABLET 650 MG PO (23:00)
[2023-07-26] MEDS: Cyclobenzaprine HCl 10 MG TABLET 20 MG PO (23:00)
[2023-07-27] VITALS (9 sets, daily range): BP systolic 93–119; BP diastolic 54–75; PULSE 73–98; RESP 16–20; TEMP 36.2–36.8; O2SAT 94–98
[2023-07-27] MEDS: HYDROmorphone HCl 0.5 MG/0.5 ML SYRINGE IVPUSH ×3 (00:30→05:08)
[2023-07-27] MEDS: LORazepam 2 MG/ML VIAL 1 MG IVPUSH (01:00)
[2023-07-27] MEDS: oxyCODONE HCl Immed Release 5 MG TABLET 10 MG PO (03:04)
[2023-07-27 06:08] LABS: MANUAL DIFF FLAG NO
[2023-07-27 06:17] LABS: Basophils Percent Auto 0.1 % (0-2); Eosinophils Percent Auto 0.4 % (0-4); Hematocrit 27.2 % (42.0-52.0); Hemoglobin 9.1 g/dl (14.0-18.0); Imm Gran Abs Auto 0.03 X10*3/uL (0.00-0.03); Imm Gran Pct Auto 0.3 % (0.0-0.4); Lymphocytes Absolute Auto 1.3 X10*3/uL (1.2-4.9); Lymphocytes Percent Auto 13.9 % (20-40); Mean Corpuscular HGB Conc 33.5 g/dl (31.0-36.0); Mean Corpuscular Hemoglobin 29.2 pg (27.0-33.0); Mean Corpuscular Volume 87.2 fL (80.0-98.0); Mean Platelet Volume 9.8 fL (9.4-12.4); Monocytes Absolute Auto 0.8 X10*3/uL (0.1-1.2); Monocytes Percent Auto 8.1 % (2-11); Neutrophils Absolute Auto 7.2 x10*3/uL (2.0-8.3); Neutrophils Percent Auto 77.2 % (45-73); Platelet Count 128 X10*3/uL (160-400); Red Blood Count 3.12 X10*6/uL (4.60-5.80); Red Cell Distribution Width 12.1 % (11.0-16.0); White Blood Count 9.3 X10*3/uL (4.8-10.8)
[2023-07-27 06:31] LABS: Anion Gap 8 (12-20); Blood Urea Nitrogen 15 mg/dL (9-16); Calcium 8.3 mg/dL (8.4-10.2); Carbon Dioxide 29 mmol/L (22-29); Chloride 105 mmol/L (96-108); Creatinine Clr Calc Pharmacy 109.3; Estimated Glomerular Filt Rate > 60; Glucose Fasting 111 mg/dL (60-99); Potassium 3.5 mmol/L (3.3-5.1); Sodium 138 mmol/L (135-145)
--- NOTE | 2023-07-27 07:27 | PM.PNORT ---
Subjective Subjective Date of Service: 07/27/23 Interval history: POD1 s/p Patient is resting in bed comfortably No overnight events Pain is difficult to control No additional complaints Physical Exam Vital Signs: Vital Signs: Last Vital Signs Temp 97.3 F 07/27/23 03:00 Pulse 73 07/27/23 03:00 Resp 18 07/27/23 03:00 BP 119/67 07/27/23 03:00 Pulse Ox 97 07/27/23 03:00 O2 Del Method Room Air 07/27/23 03:00 O2 Flow Rate 2 07/26/23 11:51 BMI result Body Mass Index 28.4 Const: General: cooperative, healthy appearing and no acute distress Resp: Effort & Inspection: normal respiratory effort and able to speak in complete sentences Cardio: Rate: regular rate Peripheral pulses: Peripheral pulses 2+ throughout GI: Palpation (GI): Soft to palpation Skin: Lesions: no lesions Rashes: no rashes Extrem: Other: left hip dressing is c/d/i. Able to dorsi/plantar flex. Calf is supple and nontender. Sensation intact. Pedal pulse intact. Procedures Date of Service Date of Service: 07/27/23 Progress Note: A&P Assessment and plan (1) S/P total left hip arthroplasty: Status: Acute Plan Continue pain mgmnt Begin ASA for dvt ppx begin PT for LTHA -Posterior precautions Dispo planning- PT, pain mgmnt continued gait training with walker Time Spent With Patient Time: Total time managing care of this patient today ____ minutes. Quality Stroke Does the patient have a stroke diagnosis?: No VTE Prior VTE?: No VTE Risk Level:: Surgical - high VTE Device Contraindication: N/A - Device Ordered VTE Drug Contraindication: N/A - Med Ordered
--- NOTE | 2023-07-27 08:03 | HO.POSTANES ---
Post Anesthesia Evaluation Post Anesthesia Evaluation Date of Service: 07/27/23 Vital Signs: Vital Signs Temp Pulse Resp BP Pulse Ox O2 Del Method 07/27/23 07:30 73 119/67 97 07/27/23 07:29 98 Room Air 07/27/23 07:00 97.3 F 90 20 115/75 94 Room Air 07/27/23 03:00 97.3 F 73 18 119/67 97 Room Air 07/26/23 23:00 98.4 F 76 18 122/72 94 Room Air Anesthesia: General Mental Status: Awake Pain Control: Satisfactory (pain difficult to control. On daily methadone) Nausea/Vomiting: Mild Hydration: Adequate Anesthesia-Related Issues: No Anes. Related Issues
[2023-07-27] MEDS: methADONE HCl 20 MG/2 ML ORAL.CONC 75 MG PO (08:50)
[2023-07-27] MEDS: clonazePAM 1 MG TABLET PO (08:51)
--- NOTE | 2023-07-27 10:29 | MHC.CM.PN ---
PATIENT IS INDEPENDENT WITH CARE. HIS SISTER IS PLANNING TO PROVIDER TRANSPORT HOME AT [place]. HE HAS A WALKER IN PREP FOR THIS SURGERY. REFERRAL TO [facility] PER PROTOCOL, WHO HAVE ACCEPTED. LAST DOSE LETTER COMPLETED. PLAN IS FOR DC TODAY IMM 1/ IN CHART PATIENT DOES NOT WISH TO APPEAL THE DECISION FOR DC.
--- NOTE | 2023-07-27 13:06 | PM.EVENT ---
Event Note Date of Service: 07/27/23 Event Note: No acute medical issues at this time. Will sign off. Call if assistance needed Time Spent With Patient Time: Total time managing care of this patient today ____ minutes.
--- NOTE | 2023-07-27 13:43 | MHC.CM.PN ---
MESSAGE LEFT FOR [facility] @ [phone] AND [facility] @ [phone] FOR A CALL BACK TO THIS SPECIAL EDUCATION TUTOR. ATTEMPTS BEING MADE TO SECURE METHADONE DELIVERY AND HOME P.T. [facility] HAS OFFERED HOME P.T. BUT CANNOT OFFER METHADONE DELIVERY.
--- NOTE | 2023-07-27 13:49 | MHC.CM.PN ---
CALL TO [facility] @ [phone] TO INQUIRE ABOUT HOME P.T. AND METHADONE SERVICES. CM AWAITING CALL BACK.
--- NOTE | 2023-07-27 14:23 | W.PM.OPN ---
Operative Note Operative Note Date of Service: 07/26/23 Narrative: Date of Service: 07/26/23 Pre-op diagnosis: Left hip OA Post-op diagnosis: same Procedure: Left CORWIN Implants: [place] Trident2 56/20 deg lip Sukhdeep Accolade2#6 132 deg with +2.5 36 ceramic Surgeon: Jones Nichols MD Anesthesia: GETA Was an Restaurant Crew Member used for this Procedure?: Yes Restaurant Crew Member: Clara Mckinney Estimated blood loss (mL): 250 IV fluids (mL): 1,000 Pathology: other Condition: stable Disposition: PACU Procedure in detail: Patient was brought into the operating room and placed in the right lateral decubitus position. All bony prominences were well padded and the limb was prepped and draped in standard sterile fashion. A time-out was called to identify proper site procedure proper surgeon IV antibiotics and 1 g of transaxemic acid were administered. I began by making a curvilinear incision over the posterolateral aspect of the greater trochanter. Dissection was taken down to the tensor fascia which was incised in line with the incision and a Charnley retractor was placed. Cautery was used to maintain hemostasis. The hip was internally rotated and the external rotators were identified. The vessels were cauterized and a full-thickness capsular/external rotator layer was developed starting just proximal to the piriformis. This layer was tagged and a dull Hohmann retractor was placed underneath the neck in the hip was dislocated. A neck cut was made 1 cm proximal to the lesser trochanter and the head and neck were removed and measured 52mm on the back table. The head was eburnated. I then removed the labrum and cauterized the fovea. I started with a 46 reamer and medialized to the inner table. I sequentially reamed up to a size 56and impacted a 56mm cup at 45 degrees of inclination and 25 degrees of version. I placed one acetabular screw using standard AO technique. I then placed a 20 deg posterior lipped liner and turned my attention to the femur. I identified the piriformis insertion and used this as a starting point for my laury cutter. The medius tendon was protected with a Hibs retractor. A Charnley awl was inserted in the canal and a curved curette used to remove the lateral bone. I irrigated copiously. I then sequentially broached in the patient's natural version to a size 6and placed my trial implants. I used a #6/132/+2.5 based on my pre-operative template. Using a trail head I took the hip through range of motion. I was satisfied with the stability. I removed all instrumentation and copiously irrigated. I placed my final femoral implant and again took the hip through range of motion and was satisfied with the stability and length. The final 2.5 implant was impacted in place and the hip reduced. I then irrigated for 3 minutes with iodine and placed 1 g of local transaxemic acid. I performed a capsular closure with 2.0 fiberwire, Paulina's fascia with 0 Vicryl, subcuticular with 2-0 Vicryl and the skin with dave. Patient was placed into a sterile dressing. Patient was extubated brought to the recovery room in stable condition. There were no known complications.
--- NOTE | 2023-07-27 15:33 | MHC.CM.PN ---
DETAILED MESSAGE LEFT FOR [facility] @ [phone] CASE MANAGEMENT TRYING TO SECURE HOME P.T. AND 75 MG OF METHADONE DELIVERY THROUGH [facility] , THEY HAVE DONE IN PAST FOR PATIENT. CALL BACK NUMBER LEFT FOR [facility]. PLAN IS DC HOME ON Tuesday07/28/2023
--- NOTE | 2023-07-27 15:55 | MHC.CM.PN ---
[facility] IS ACCEPTING FOR HOME PT AND METHADONE DELIVERY THEY ARE AWARE OF HIS PLANNED DC TUESDAY THEY WILL CONTACT HIS METHADONE CLINIC TOMORROW MORNING AND MAKE ARRANGEMENTS
--- NOTE | 2023-07-27 18:31 | PM.DS ---
DS: Providers Provider Date of Service: 07/28/23 Date of admission: 07/26/23 06:52 Primary care physician: Zahraa Roca DO Consults: 07/26/23 11:51 Consult to Hospitalist Routine Comment: Consulting Provider: Hospitalist Reason For Exam: Routine medical management DS: Diagnosis Discharge Diagnosis (1) S/P total left hip arthroplasty: Status: Acute DS: Summary Hospital Course Hospital Course: The patient underwent a successful left total hip arthroplasty, they were transferred to PACU and then to the floor to recover. During their stay, their vitals were stable, afebrile at 97.8. Labs were unremarkable, H/H 8.3/24.8. POD 1 they were started on Aspirin 325mg po bid for DVT ppx, they also received Physical Therapy services twice a day. Prior to discharge, their dressing was clean dry and intact, and the plan was to be discharged home with VNA services. Time Attestation Discharge coordination time: Less than 30 minutes Quality: Safe Use of Opioids Does Pt have an Active Cancer Diagnosis on the Problem List?: No Quality: Stroke Does the patient have a stroke diagnosis?: No Physical Exam Vital Signs: Vital Signs: Last Vital Signs Temp 98.3 F 07/27/23 15:34 Pulse 80 07/27/23 15:34 Resp 18 07/27/23 15:34 BP 94/54 L 07/27/23 15:34 Pulse Ox 94 07/27/23 15:34 O2 Del Method Room Air 07/27/23 15:34 O2 Flow Rate 2 07/26/23 11:51 BMI result Body Mass Index 28.4 Const: General: cooperative, healthy appearing and no acute distress Resp: Effort & Inspection: normal respiratory effort and able to speak in complete sentences Cardio: Rate: regular rate Peripheral pulses: Peripheral pulses 2+ throughout GI: Palpation (GI): Soft to palpation Skin: Lesions: no lesions Rashes: no rashes Extrem: Other: left hip dressing is c/d/i. Able to dorsi/plantar flex. Calf is supple and nontender. Sensation intact. Pedal pulse intact. DS: Data Data Completed and Pending Completed studies during hospitalization [Text1]: Pending at discharge 07/26/23 09:28 Surgical [PTH] Routine Procedures Replacement of Right Hip Joint with Ceramic Synthetic Substitute, Uncemented, Open Approach (06/29/22) Labs on day of discharge: Laboratory Results - last 24 hr 07/27/23 06:03 WBC 9.3 RBC 3.12 L D Hgb 9.1 L D Hct 27.2 L D MCV 87.2 MCH 29.2 MCHC 33.5 RDW 12.1 Plt Count 128 L MPV 9.8 Immature Gran % (Auto) 0.3 Neut % (Auto) 77.2 H Lymph % (Auto) 13.9 L Jay % (Auto) 8.1 Eos % (Auto) 0.4 Baso % (Auto) 0.1 Lymph # (Auto) 1.3 Jay # (Auto) 0.8 Eos # (Auto) 0.0 Baso # (Auto) 0.0 Abs Immat Gran (auto) 0.03 Absolute Neuts (auto) 7.2 Absolute Nucleated RBC 0.000 Nucleated RBC % (auto) 0.0 Sodium 138 Potassium 3.5 Chloride 105 Carbon Dioxide 29 Anion Gap 8 L BUN 15 Creatinine 0.86 Estim Creat Clear Calc 109.3 Estimated GFR > 60 Fasting Glucose 111 H Calcium 8.3 L Discharge Plan Discharge Anticipated Discharge Date/Time: 07/28/23 15:00 Patient Disposition: Home Health Service Discharge Diagnosis: s/p LT Referrals: Francisco Crooks PA-C [Physician Ships Equipment Engineer] - 08/11/23 12:30 pm Discharge Medications: New celecoxib 200 mg Capsule 200 mg PO BID 30 Days Qty: 60 0RF acetaminophen 325 mg Tablet 650 mg PO Q6H PRN (Reason: Pain, Mild (Pain Scale 1-3)) 30 Days Qty: 240 0RF aspirin 325 mg Tablet 325 mg PO Q12H 42 Days Qty: 84 0RF oxycodone 10 mg tablet 10 mg PO Q4H PRN (Reason: Pain, Moderate(Pain Scale 4-6)) 7 Days Qty: 42 0RF Rx Instructions: Partial Fill upon patient request. Continued amitriptyline 75 mg tablet 75 mg PO BEDTIME calcium polycarbophil [Fiber-Lax] 625 mg tablet 625 mg PO DAILY oxycodone 5 mg tablet 5 mg PO BEDTIME PRN (Reason: severe pain) ywufyery-ulh-kxoe fum-folic ac 7.5 mg iron-400 mcg tablet 1 tab PO DAILY clonazepam 1 mg tablet 1 mg PO DAILY gabapentin 600 mg tablet 600 mg PO BEDTIME methadone 40 mg tablet,soluble 75 mg PO DAILY cyclobenzaprine 10 mg tablet 20 mg PO BEDTIME PRN (Reason: muscle spasm) Discharge Orders: Discharge Order (Routine); Ordered 07/28/23 Ordered By: Clara Mckinney Diet: Advance to usual diet Activity on Discharge: Use cane or walker Stand Alone Forms: Patient Portal Discharge page Care Plan Goals: Restore fxn to left hip Health Concerns: None Plan of Treatment: Physical Therapy for total hip arthroplasty: posterior precautions, gait training, ROM, strength Limit stair climbing No showering, no tub bath-keep dressing clean, dry and intact No driving x6 weeks Continue Aspirin tabs twice a day x 6 weeks Follow up with [facility] in 2 weeks Assessment: Stable for discharge
--- NOTE | 2023-07-27 18:32 | W.MHC.F2F ---
Service Date Service Date: 07/27/23 Encounter Date of encounter: 07/28/23 Reasons for Services Signs and symptoms assessed: s/p LTHA. Pt. is considered homebound due to recent surgery. Unable to drive, poor balance, poor gait mechanics. Reason for physical therapy: home safety and mobility, therapeutic exercises, restore joint function, gait/transfer training, assess need for DME and ADL training Reason for occupational therapy: home safety and mobility, therapeutic exercises, restore joint function, gait/transfer training, assess need for DME and ADL training Homebound: Leaving the home is medically contraindicated at this time without the asist of a device and/or another person due th the listed conditions above and below. Reason homebound: unsteady gait / fall risk, leg weakness, pain with ambulation, pain with transfers, poor balance / fall risk and unable to drive Certification: Based on the above findings, I certify that this patient is confined to the home and needs intermittent residential care, physical therapy and/or speech therapy, or continues to need occupational therapy. The patient is under my care, and I have initiated the establishment of the plan of care. The patient will be followed by a physician who will periodically review the plan of care. Time Spent With Patient Time: Total time managing care of this patient today ____ minutes.
[2023-07-28 03:00] VITALS: BP 112/54; PULSE 89; RESP 18; TEMP 36.6; O2SAT 94
[2023-07-28 06:04] LABS: MANUAL DIFF FLAG NO
[2023-07-28 06:24] LABS: Basophils Percent Auto 0.3 % (0-2); Eosinophils Absolute Auto 0.2 X10*3/uL (0.0-0.4); Eosinophils Percent Auto 2.4 % (0-4); Hematocrit 24.8 % (42.0-52.0); Hemoglobin 8.3 g/dl (14.0-18.0); Imm Gran Abs Auto 0.03 X10*3/uL (0.00-0.03); Imm Gran Pct Auto 0.4 % (0.0-0.4); Lymphocytes Absolute Auto 1.3 X10*3/uL (1.2-4.9); Lymphocytes Percent Auto 17.4 % (20-40); Mean Corpuscular HGB Conc 33.5 g/dl (31.0-36.0); Mean Corpuscular Hemoglobin 29.7 pg (27.0-33.0); Mean Corpuscular Volume 88.9 fL (80.0-98.0); Mean Platelet Volume 10.7 fL (9.4-12.4); Monocytes Absolute Auto 0.7 X10*3/uL (0.1-1.2); Monocytes Percent Auto 8.9 % (2-11); Neutrophils Absolute Auto 5.2 x10*3/uL (2.0-8.3); Neutrophils Percent Auto 70.6 % (45-73); Platelet Count 123 X10*3/uL (160-400); Red Blood Count 2.79 X10*6/uL (4.60-5.80); Red Cell Distribution Width 12.4 % (11.0-16.0); White Blood Count 7.4 X10*3/uL (4.8-10.8)
[2023-07-28 06:28] LABS: Anion Gap 11 (12-20); Blood Urea Nitrogen 14 mg/dL (9-16); Calcium 8.4 mg/dL (8.4-10.2); Carbon Dioxide 27 mmol/L (22-29); Chloride 105 mmol/L (96-108); Creatinine Clr Calc Pharmacy 122.1; Estimated Glomerular Filt Rate > 60; Glucose Fasting 110 mg/dL (60-99); Potassium 3.8 mmol/L (3.3-5.1); Sodium 139 mmol/L (135-145)
[2023-07-28 07:00] VITALS: BP 112/61; PULSE 75; RESP 18; TEMP 36.2; O2SAT 99
[2023-07-28 07:52] VITALS: BP 112/54; PULSE 89; O2SAT 94
--- NOTE | 2023-07-28 08:57 | MHC.CM.PN ---
Addendum entered by Rhonda Fleming 07/28/23 12:17: CM CALLED [facility] [phone] TO CONFIRM THEY RECEIVED PTS DC DOCUMENTS THEY HAD NOT RESPONDED IN [facility] MESSAGE LEFT WITH AMERICANIZATION TEACHER REQUESTING A RETURN CALL Addendum entered by Rhonda Fleming 07/28/23 12:16: LAST DOSE LETTER ALSO FAXED TO [facility] AT [phone] [facility] PHONE: [phone] Addendum entered by Rhonda Fleming 07/28/23 09:14: LAST DOSE LETTER, DCS, AND FACE TO FACE SENT TO [facility]IA [facility] AND FAX Addendum entered by Rhonda Fleming 07/28/23 09:02: FAMILY TO TRANSPORT Original Note: PT WILL DC HOME TODAY WITH [facility] FOR [facility] DELIVERY AND PT
== END 2023-07-28 12:00 | disposition home health service (06) | DRG 470 ==
LOC: HO.SSSA 06:57 → HO.S3 10:30
PROVIDERS: Orthopaedic Surgery; Physician Assistant; Admitting Provider Physician Assistant; PCP Family Medicine; Visit Provider Physician Assistant
PROC: 0SRB0JA Replacement of Left Hip Joint with Synthetic Substitute, Uncemented, Open Approach (ICD-10-PCS; CPT 27130; principal; 2023-07-26 07:30)
DX: M16.12 Unilateral primary osteoarthritis, left hip (principal); F11.20 Opioid dependence, uncomplicated; F41.9 Anxiety disorder, unspecified; F10.21 Alcohol dependence, in remission; Z79.899 Other long term (current) drug therapy
CPT/HCPCS: 27130; 36415; 72170; 80048; 85025; 86850; 86900; 86901; 87640; 87641; 88304; 88311; 93005; 97110; 97116; 97162; 97166; 99024; C1713; C1776; J0131; J0665; J0690; J1100; J1170; J2060; J2250; J2405; J2704; J3010; J7120

== ENCOUNTER → 2023-07-26 06:52 | Outpatient (BNV) | payer MEDICARE, MEDICAID, SELFPAY | PROVIDERS: Admitting Provider Physician Assistant; PCP Family Medicine; Visit Provider Hospitalist | DX: D64.9 Anemia, unspecified (principal); Z96.642 Presence of left artificial hip joint | CPT/HCPCS: 99222; 99499 ==

== ENCOUNTER → 2023-07-26 06:52 | Outpatient (BNV) | payer MEDICARE, MEDICAID, SELFPAY | PROVIDERS: Admitting Provider Physician Assistant; PCP Family Medicine; Visit Provider Orthopaedic Surgery | DX: Z96.642 Presence of left artificial hip joint (principal) | CPT/HCPCS: 27130; 99024 ==

== ENCOUNTER 2023-08-11 12:19 | Outpatient (AMB) | payer MEDICARE, MEDICAID, SELFPAY ==
--- NOTE | 2023-08-11 12:39 | A.OFFVIS_ITS ---
Intake Intake Visit Reasons: PO-LT CORWIN 07/26/22 NE Intake Note: Cristobal a 53 year old male presents today for a post operative left CORWIN on 07/26/23 NE. Patient reports he is doing well, states discomfort with weight bearing. Allergies No Known Allergies Allergy (Verified 08/11/23 12:43) HPI PO-LT CORWIN 07/26/22 NE HPI Details 53-year-old male who returns to the [facility] today for post-op left CORWIN, 07/26/[address] Nichols. He continues to have discomfort with weight bearing but is doing well otherwise. He has no other concerns today. [facility] Medical History Rash Family history of pseudocholinesterase deficiency Alcohol dependence in remission Hx of substance abuse History of COVID-19 Chronic right hip pain Degenerative disc disease Chronic back pain History of hepatitis C Chronic anemia History of alcohol abuse Anxiety Surgical History History of total right hip arthroplasty Hx of colonoscopy History of surgery History of right inguinal hernia repair History of laminectomy Family History Mother Osteoarthritis Social History Household Members: None Housing: Apartment Housing Other:: second floor Are you a primary child care center assistant director to a significant other at home: No Do you presently have visiting nurse or other home services: No Alcohol intake: never Comment: Pt. refused supervision/ steady walking with crutches. Patient Tobacco Use Status: Current someday Tobacco user Tobacco use type: Cigarette Cigarettes Per Day: 3 Years Smoked: 39 Substance Use Type: Amphetamines and Crack/Cocaine service: No Current occupational status: disabled Review of Systems Const All systems reviewed & are unremarkable except as noted in HPI and below Physical Exam Extrem Other: Left hip: Normal to inspection. Incision clean, dry and intact. No erythema or drainage. He has mild discomfort with ROM of hip and hip flexion. NVI. Assessment & Plan Assessment & Plan (1) S/P total left hip arthroplasty: Code(s): Z96.642 - Presence of left artificial hip joint Plan Climax removed, steri strips applied. He will begin to transition to Outpatient PT to continue working on Gait training, ROM and quad strength. No driving for another 4 weeks. He will require ppx abx for dental procedures. He will f/u in 4 weeks, sooner if needed. Patient Instructions: Scribed for Francisco Crooks PA-C, by Jorje Morrow medical office asst, on 08/11/2023 at 12:30 PM EST. I, Francisco Crooks PA-C, have personally reviewed and agree with the information entered by the scribe. Coding Level of Care Code Global (66326) Diagnoses S/P total left hip arthroplasty Z96.642
== END 2023-08-11 13:29 | disposition home or self-care (01) ==
PROVIDERS: PCP Family Medicine; Visit Provider Physician Assistant
DX: Z96.642 Presence of left artificial hip joint (principal)
CPT/HCPCS: 99024

== ENCOUNTER → 2023-08-11 12:19 | Outpatient (BNVA) | payer MEDICARE, MEDICAID, SELFPAY | PROVIDERS: PCP Family Medicine; Visit Provider Physician Assistant | DX: Z47.1 Aftercare following joint replacement surgery (principal); Z96.642 Presence of left artificial hip joint | CPT/HCPCS: 99212 ==

== ENCOUNTER 2023-08-23 11:00 | Outpatient (RCR) | payer MEDICARE, MEDICAID, SELFPAY ==
--- NOTE | 2023-08-11 14:36 | MHC.PT.EP ---
[facility] [place] Office [place] Office [place] Office [address] Christina Conner [address] [phone] F: [phone] F: [phone] F: [phone] F: [phone] Physical Therapy Plan of Care Date of Evaluation: 08/11/23 Date of Surgery: 07/26/23 Diagnosis: Lt CORWIN, POSTERIOR APPROACH PRECAUTIONS Assessment: 53 YO MALE REF TO PT S/P Lt POSTERIOR APPROACH CORWIN ON 07/26/23 AND Rt CORWIN IN 2022- HE RESIDES ALONE IN A 2ND FLOOR APT AND IS CURRENTLY AMB W A CANE. THE Pt DID NOT RECEIVE HOME PT SERVICES. HE HAS A H/O LB SURGERY W COMPENSATORY TRUNK AND HIP POSTURING W RESULTANT SOFT TISSUE RESTRICTION. OBJECTIVE FINDINGS: LIMITED AROM JOCELYNE LE AND TRUNK, INCR TIGHTNESS IN JOCELYNE PSOAS MM JOCELYNE AND DECR ANKLE DF JOCELYNE; DECR POSTURE W SIGNIF COMPENSATION; DECR STRENGTH IN PROX / LUMBOPELVIC AND Lt LE, POST-OP PAIN IN LEFT HIP GIRDLE ,AND HEALING LATERAL POSTERIOR Lt HIP INCISION. FUNCTIONALLY, Pt HAS ALTERED/ COMPENSATORY GAIT,TUG 19 SEC W CANE AND 30 SEC SIT TO STAND x 9REPS; DECR STANDING LI, AND DECR LI TO MORE DYNAMIC ADLs . Pt IS A GOOD PT CANDIDATE TO GUIDE HIM IN HIS POST-OP CORWIN COURSE, REVIEWING CORWIN PRECAUTIONS, ADDRESSING THE ABOVE FINDINGS, PAIN MGMT, AND MAXIMIZING FUNCTIONAL INDEPENDENCE. Frequency and Duration: The patient will be seen 2 x WK x 5 WKS Short Term Goals: *Pt INDEP W CORWIN POSTERIOR APPROACH PRECAUTIONS AND SELF-MGMT OF POST-OP STATUS TO PROMOTE OPTIMAL HEALING *Pt WILL DEMON EFFICIENT GAIT MECHANICS W LEAST RESTRICTIVE ASST DEVICE ON LEVEL GROUND AND STAIRS *Pt'S LEFT HIP PAIN WILL DECR TO 2-3/10 *Pt DEMON APPROP BED MOB/ POSITIONING/ SIT <-> STAND/ CAR TRANSFERS Dobie Man Goals: *Pt WILL IMPROVE LUMBOPELVIC/ Lt LE STRENGTH TO AT LEAST 5-/5 *IMPROVED 30 SEC SIT <-> STAND TEST( 9R W UEs ASSIST AT EVAL) AND TUG (19 SEC W CANE AT EVAL) *Pt REPORT INCREASED ADL/ ACTIVITY LI EVIDENT W IMPROVED LEFI SCORE *Pt INDEP W PROGR HEP AND SELF-SX MGMT TECHN Treatment Plan: Modalities to reduce pain, spasms and effusion. Manual therapy to restore motion and function. Therapeutic exercise to improve strength and flexibility. Neuromuscular re-education for posture and balance. Therapeutic activities to return to functional activities of daily living. Electronically signed by: ARI STOCKTON,PT Please sign and return to therapist. Thank you for your referral.
--- NOTE | 2023-10-07 15:24 | MHC.PT.DC ---
[facility] [place] Office [place] Office [place] Office [address] [phone] F: [phone] F: [phone] F: [phone] F: [phone] Physical Therapy Discharge Report Diagnosis: Lt CORWIN, POSTERIOR APPROACH PRECAUTIONS Date of Surgery: 07/26/23 Date of Evaluation: 08/11/23 Date of Discharge: 10/07/23 Treatments to Date: 3 Cancellations to Date: 1 No Shows to Date: 3 Discharge Status: Patient Elected to Stop Visit Non-compliance Discharge Summary: SHANNON HAD DECR LT ANT HIP TISSUE TENSION AND IMPROVED GAIT WITH GENTLE SOFT TISSUE WORK AND CAUTIOUS THER EXER-HE DID NOT ATTEND HIS LAST FEW SCHED APPTS Electronically signed by: ARI STOCKTONPT Please sign and return to therapist. Thank you for your referral.
== END 2023-10-07 15:25 | disposition home or self-care (01) ==
LOC: HO.PT 11:00
PROVIDERS: PCP Family Medicine; Visit Provider Physician Assistant
DX: Z96.642 Presence of left artificial hip joint (principal)
CPT/HCPCS: 97140; 97162; 97530

== ENCOUNTER 2023-10-24 10:18 | Outpatient (REF) | payer MEDICARE, MEDICAID, SELFPAY ==
[2023-10-24 11:24] LABS: Hematocrit 36.8 % (42.0-52.0); Hemoglobin 11.8 g/dl (14.0-18.0); Mean Corpuscular HGB Conc 32.1 g/dl (31.0-36.0); Mean Corpuscular Hemoglobin 28.1 pg (27.0-33.0); Mean Corpuscular Volume 87.6 fL (80.0-98.0); Mean Platelet Volume 10.2 fL (9.4-12.4); Platelet Count 188 X10*3/uL (160-400); White Blood Count 4.3 X10*3/uL (4.8-10.8)
[2023-10-24 11:37] LABS: Estimated Average Glucose 105 mg/dL; Hemoglobin A1c % 5.3 % (<6.0)
[2023-10-24 11:56] LABS: Prostate Specific Antigen 0.29 ng/mL (<0.05-4.0)
[2023-10-24 14:03] LABS: Alanine Aminotransferase 14 U/L (0-40); Alkaline Phosphatase 125 U/L (39-117); Anion Gap 11 (12-20); Aspartate Amino Transferase 20 U/L (5-37); Bilirubin Direct 0.2 mg/dL (0.0-0.5); Bilirubin Total 0.3 mg/dL (0.0-1.0); Blood Urea Nitrogen 8 mg/dL (9-16); Calcium 9.2 mg/dL (8.4-10.2); Carbon Dioxide 29 mmol/L (22-29); Chloride 105 mmol/L (96-108); Cholesterol 174 mg/dL (<200); Estimated Glomerular Filt Rate > 60; Glucose Random 87 mg/dL (60-115); HDL Cholesterol 52 mg/dL (>40); LDL Cholesterol Calculated 113 mg/dL (<100); Sodium 141 mmol/L (135-145); Total Protein 7.2 g/dL (6.5-8.0); Triglycerides 48 mg/dL (<150)
[2023-10-24 14:11] LABS: Free T4 (Free Thyroxine) 0.96 ng/dL (0.71-1.85); Thyroid Stimulating Hormone 0.95 uIU/mL (0.32-4.0); Vitamin D 25-OH Total 34.2 ng/mL (>30)
[2023-10-24 14:20] LABS: CT PCR NOT DETECTED (Not Detect.); NG PCR NOT DETECTED (Not Detect.)
[2023-10-25 08:35] LABS: HBsAGNum1 0.31 S/CO (0.00-0.99); HIV AB/AG Nonreactive (Nonreactive); HIV Num 1 0.07 S/CO (0.00-0.99); Hepatitis B Surface Antigen Negative (Negative); ~HepC Num1 14.11 S/CO (0.00-0.79); ~Hepatitis B Surface Antibody NONREACTIVE (Nonreactive); ~Hepatitis C Antibody Reactive (Nonreactive)
[2023-10-26 08:43] LABS: RPR Rapid Plasma Reagin NON-REACTIVE (NON-REACTIVE)
[2023-10-27 16:32] LABS: HCV Log PCR <1.18 NOT DETECTED Log IU/mL (NOT DETECTED); HepC Viral Load <15 NOT DETECTED IU/mL (NOT DETECTED)
== END 2023-10-24 10:19 | disposition home or self-care (01) ==
LOC: HO.HHCL 10:18
PROVIDERS: Visit Provider Family Medicine
DX: Z00.00 Encounter for general adult medical examination without abnormal findings (principal); R39.12 Poor urinary stream; Z11.3 Encounter for screening for infections with a predominantly sexual mode of transmission; Z11.59 Encounter for screening for other viral diseases; Z12.5 Encounter for screening for malignant neoplasm of prostate; Z72.89 Other problems related to lifestyle
CPT/HCPCS: 0353U; 36415; 80048; 80061; 80076; 82306; 83036; 84153; 84439; 84443; 85027; 86592; 86706; 86803; 87340; 87389; 87522

== ENCOUNTER 2023-12-13 17:21 | Outpatient (REF) | payer MEDICARE, MEDICAID, SELFPAY ==
--- NOTE | ~2023-12-13 | MR_ITS ---
EXAMINATION: MR LUMBAR SPINE WITHOUT CONTRAST CLINICAL INFORMATION: Low back pain radiating into the lower extremities. COMPARISON: MR lumbar spine 02/21/2020. CT lumbar spine 06/20/2009. TECHNIQUE: MRI of the lumbar spine was obtained using routine sequences without contrast. FINDINGS: Stable chronic deformity of the L2 and L3 vertebral bodies which are chronically fused. There is also chronic anterior wedging of each of these 2 vertebral segments resulting in focal kyphotic angulation at the level of L2-L3. There is grade 1 anterolisthesis of L1 on L2. Grade 1 retrolisthesis of L3 on L4. Vertebral heights are preserved. Type I degenerative endplate changes at L3-L4 and L1-L2. There is loss of intervertebral disc height and T2 signal intensity at multiple levels related to disc degeneration. The tip of the conus medullaris is located at and T12. No mass effect on the conus. Visualized distal cord signal intensity is normal. At L1-L2 there is a diffusely bulging disc. Bilateral facet degenerative change. Severe canal stenosis. Mild mass effect on the left L1 foraminal nerve root. At L2-L3 there is no canal or neuroforaminal compromise. At L3-L4 there is a diffusely bulging disc. Advanced bilateral facet degenerative change. Moderate canal stenosis. Subarticular zone narrowing causes abutment of both traversing L4 nerve roots. No foraminal nerve root compression. At L4-L5 there is a shallow central protrusion superimposed upon a bulging disc. Bilateral facet degenerative change. Moderate canal stenosis. Asymmetric narrowing of the right subarticular zone causing displacement and possible compression of the right traversing L5 nerve roots. Moderate compression of both L4 foraminal nerve roots. L5-S1 there is a slightly bulging disc. Bilateral facet degenerative change. No canal stenosis. No mass effect on the traversing or foraminal nerve roots. Limited visualization of the retroperitoneal anatomy reveals no abnormal finding. Psoas and paraspinal muscle groups are symmetric. MR/MR lumbar spine wo con IMPRESSION: There is a chronic deformity of the L2 and L3 vertebral bodies which are now chronically fused. Chronic anterior wedging of the L2 and L3 vertebral bodies results in focal kyphotic angulation at the level of L2-L3. There is advanced multilevel degenerative spondylosis of the lumbar spine with grade 1 anterolisthesis of L1 on L2 and grade 1 retrolisthesis of L3 on L4. There is severe canal stenosis at L1-L2 and moderate canal stenosis at L3-L4 and L4-L5. There are varying degrees of mass effect on the traversing and foraminal segments of the nerve roots as described above. For instance there is moderate compression of both L4 foraminal nerve roots related to degenerative changes at L4-L5.
== END 2023-12-13 17:22 | disposition home or self-care (01) ==
LOC: HO.MRI 17:21
PROVIDERS: PCP Family Medicine; Visit Provider Family Medicine
DX: M54.50 Low back pain, unspecified (principal); G89.29 Other chronic pain
CPT/HCPCS: 72148

== ENCOUNTER 2024-03-08 10:01 | Outpatient (REF) | payer MEDICARE, MEDICAID, SELFPAY ==
--- NOTE | ~2024-03-08 | XR_ITS ---
EXAMINATION: XR LUMBOSACRAL SPINE CLINICAL INFORMATION: Lower back pain. COMPARISON: Portions of the MRI lumbar spine dated 01/05/2024; lumbar spine radiographs dated 04/17/1988. TECHNIQUE: AP and lateral views of the lumbar spine were obtained. Lateral views were obtained in flexion, extension, and neutral positions. FINDINGS: There is bony demineralization. There is a moderate lumbar rotatory levoscoliosis. Again, there is chronic fusion of the L2 and L3 vertebral bodies, with persistent anterior wedging of each. There is a stable focal kyphosis at L2-3. There is mild disc space narrowing at L3-4. No acute fracture or spondylolisthesis is seen. There is no instability with flexion or extension. There is multi-level lumbar endplate and facet arthropathy. The paravertebral soft tissues are unremarkable. A left hip arthroplasty is noted. XR/XR lumbar spine 4V min IMPRESSION: 1. There is a stable chronic deformity of the L2 and L3 vertebral bodies, with anterior wedging. There is a stable focal kyphosis at L2-3, and a mild lumbar rotatory levoscoliosis is seen. 2. No acute fracture or spondylolisthesis is seen. 3. There is no instability with flexion or extension. 4. There is mild degenerative disc disease at L3-4. Electronically signed by: Gurdeep Crowell MD 04/04/2024 07:55 PM EDT
== END 2024-03-08 10:02 | disposition home or self-care (01) ==
LOC: HO.HOSX 10:01
PROVIDERS: PCP Family Medicine; Visit Provider Physician Assistant
DX: M54.50 Low back pain, unspecified (principal)
CPT/HCPCS: 72110; 99202

== ENCOUNTER 2024-03-08 10:01 | Outpatient (AMB) | payer MEDICARE, MEDICAID, SELFPAY ==
--- NOTE | 2024-03-08 10:18 | HO.SPINEOV ---
Intake Visit Reasons: LBP Intake Note: Mr. Enriquez is here today c/o Low mid back pain. Broadcast Technician Required: No Allergies No Known Allergies Allergy (Verified 03/08/24 10:36) Assessment & Plan Assessment & Plan (1) Lumbago: Code(s): M54.50 - Low back pain, unspecified Category: Medical Plan Dear Dr. Roca, Thank you for referring Cristobal to our office today. He is a pleasant 53 y/o male who comes in today with a chief complaint of low back pain and an inability to stand upright. He reports this has been ongoing for the last 20 years and has been slowly worsening. 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 When describing his pain he runs his hands over the small of his low back. He denies any shooting pains into either leg. He denies any numbness/tingling/weakness. He reports a pertinent past medical history of a laminectomy completed here at [facility] by Dr. Bentley in 2008. He reports he has tried taking several different lhzm-cvg-eofqcco medications in the past including Tylenol, ibuprofen, and lidocaine patches without significant relief of symptoms. He is currently utilizing methadone, cyclobenzaprine, and gabapentin to help alleviate his pain. PMH: Anxiety, chronic constipation, osteoarthritis, hepatitis-C, Achilles tendon repair, C3-7 cervical laminotomy 06/24/2009, inguinal hernia repair, total hip arthroplasty on the right 2021. Social hx: The patient smokes 1/3 pack cigarettes per day, currently on methadone maintenance for opiate use disorder. Medications: Tylenol, amitriptyline, Klonopin, cyclobenzaprine, gabapentin, lactulose, lidocaine patches, methadone (70mg daily), naproxen, senna. Allergies: NKDA Physical exam: The patient is unable to stand completely upright on exam and seems to have a kyphotic deformity in his lumbar spine. He has 5/5 strength in his upper and lower extremities despite this. He has no significant sensational deficits. He is diffusely hyperreflexive, most notably at the right patella. He has bilateral Rubio's. He has 8 beats of clonus in his left ankle, and 4 beats of clonus in his right ankle. His kyphotic lumbar deformity is clearly affecting his gait and causing him to walk unsteadily. (-) Bilateral straight leg raise. Imaging review: MRI of the lumbar spine completed at [facility] shows fairly severe spondylosis of the lumbar spine. There appears to be complete auto fusion between L2-3 from some old longstanding injury. There is severe DDD with severe central canal and bilateral foraminal stenosis at L1-2, and severe bilateral foraminal stenosis noted at L3-4, and L4-5. There is evidence of slight listhesis at L1-2 and L3-4. Impression: Cristobal is a pleasant 53-year-old male who comes in today with a chief complaint of low back pain difficulty standing upright. He states he has had back pain for the past 20 years and is unable to identify any inciting incident aside from a job he had when he was younger. He does have a pertinent medical history of a previous laminectomy from C3-[address] Bentley. This, and his medication regimen may be responsible for his myelopathic reflexes on exam. He has no issues with neck pain, or shooting pains down his bilateral arms. He is most concerned about his back and his inability to stand upright. I will be sending the patient for a set of dynamic lumbar x-rays to fully evaluate for instability as there seems to be a slight listhesis at L1-2 and L3-4. I will have the patient follow up with Dr. Mills after this to discuss the possibility of surgery. It is very likely the patient will need lumbar fusion surgery for correction of both his kyphotic deformity and is low back pain. Thank you for allowing us to care for your patient. The total time spent with this visit with this patient was 45 minutes reviewing history, physical exam, MRI imaging review, and implementation of treatment plan or further diagnostic testing Fabiano Mills MD,PhD [facility] Orders: Orders XR lumbar spine 4V min Today M54.50 - Low back pain, unspecified Coding Level of Care Code New Pt Level 4 (60678) Diagnoses Lumbago M54.50
== END 2024-03-08 11:44 | disposition home or self-care (01) ==
PROVIDERS: PCP Family Medicine; Referring Provider Family Medicine; Visit Provider Physician Assistant
DX: M54.50 Low back pain, unspecified (principal)
CPT/HCPCS: 99204; 99214

== ENCOUNTER 2024-04-13 15:02 | Outpatient (AMB) | payer MEDICARE, MEDICAID, SELFPAY ==
--- NOTE | 2024-04-13 15:04 | HO.SPINEOV ---
Intake Visit Reasons: F/u after CT Intake Note: Mr. Enriquez is here today to F/u on CT results. Client Development Manager Required: No Allergies No Known Allergies Allergy (Verified 03/08/24 10:36) Assessment & Plan Assessment & Plan (1) S/P total left hip arthroplasty: Code(s): Z96.642 - Presence of left artificial hip joint Category: Surgical (2) Lumbago: Code(s): M54.50 - Low back pain, unspecified Category: Medical Qualifiers: Chronicity: chronic Back pain laterality: midline Sciatica presence: without sciatica Qualified Code(s): M54.50 - Low back pain, unspecified; G89.29 - Other chronic pain Plan Dear colleague, On 04/12/2024 my saw for follow-up Cristobal Enriquez for possible deformity correction. He was previously seen by my PA and he is following up with me to discuss CT results. First of all, I do not think his abnormal posterior has anything to do with the lumbar spine. It seems to be more contraction in the hip area that puts his torso forward. His lumbar spine remains aligned. I reviewed the CT scan of the lumbar spine that shows an auto fusion of L2-3 with a mild deformity. Possibly, this is due to an old osteomyelitis. I told the patient that correction of the minor deformity is not going to alleviate his abnormal gait. He wants to be discuss his case with Dr. Nichols who did a bilateral hip replacement. I will call the patient after I spoke to him. I spent 20 minutes in his consult for reviewing imaging discussing plan of care. Simon Mills MD, PhD Spine Fellowship Trained Neurosurgeon Director, [facility] Coding Level of Care Code Est Pt Level 3 (43840) Diagnoses S/P total left hip arthroplasty Z96.642 Chronic midline low back pain without sciatica M54.50; G89.29 Chronicity: chronic Back pain laterality: midline Sciatica presence: without sciatica
== END 2024-04-13 16:10 | disposition home or self-care (01) ==
PROVIDERS: PCP Family Medicine; Visit Provider Neurological Surgery
DX: Z96.642 Presence of left artificial hip joint (principal); M54.50 Low back pain, unspecified; G89.29 Other chronic pain
CPT/HCPCS: 99213

== ENCOUNTER → 2024-04-13 15:02 | Outpatient (BNVA) | payer MEDICARE, MEDICAID, SELFPAY | PROVIDERS: PCP Family Medicine; Visit Provider Neurological Surgery | DX: M54.50 Low back pain, unspecified (principal); G89.29 Other chronic pain; Z96.642 Presence of left artificial hip joint | CPT/HCPCS: 99212 ==

== ENCOUNTER 2024-06-18 14:42 | Outpatient (REF) | payer MEDICARE, MEDICAID, SELFPAY ==
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
== END 2024-06-18 14:43 | disposition home or self-care (01) ==
LOC: HO.US 14:42
PROVIDERS: PCP Family Medicine; Visit Provider Family Medicine
DX: M25.521 Pain in right elbow (principal); M25.421 Effusion, right elbow
CPT/HCPCS: 76882

== ENCOUNTER 2024-07-16 11:19 | Outpatient (AMB) | payer MEDICARE, MEDICAID, SELFPAY ==
--- NOTE | 2024-07-16 11:19 | MHC.OFFVIS ---
Intake Visit Reasons: [facility]/PCP referral for VV Intake Note: New patient presents for VV. Patient has numbness on both legs from the knee down. Patient had both hips done so he believes some of his issues are from that. Bilateral varicose veins. Patient says he has bruising on both lower legs and feet. Accompanied by: Self / Same As Patient Allergies No Known Allergies Allergy (Verified 07/16/24 11:25) HPI HPI [facility]/PCP referral for VV: Details: Cristobal, a pleasant 54yo male patient, is presenting today on a referral from his PCP for numbness/tingling and concerns of varicose veins. Complaints include pain, slight swelling of lower extremities, cramping, fatigue, and heaviness of the lower extremities. It has been affecting their daily activities including walking, standing, and physical activity. It is noted in bilateral legs. He has a hx of JB and states he did use IV heroin in some of the veins in his legs, left more than right. Patient denies any previous venous surgery or injections. Patient denies any history of DVT/ PE. Patient denies any history of phlebitis. Trial of compression includes - nothing They now present for vascular evaluation regarding their varicose veins. [facility] Medical History Rash Family history of pseudocholinesterase deficiency Alcohol dependence in remission Hx of substance abuse History of COVID-19 Chronic right hip pain Degenerative disc disease Chronic back pain History of hepatitis C Chronic anemia History of alcohol abuse Anxiety Surgical History History of total right hip arthroplasty Hx of colonoscopy History of surgery History of right inguinal hernia repair History of laminectomy Family History Mother Osteoarthritis Social History Household Members: None Housing: Apartment Housing Other:: second floor Are you a primary career discovery teacher to a significant other at home: No Do you presently have visiting nurse or other home services: No Alcohol intake: never Comment: Pt. refused supervision/ steady walking with crutches. Patient Tobacco Use Status: Current someday Tobacco user Tobacco use type: Cigarette Cigarettes Per Day: 3 Years Smoked: 39 Substance Use Type: Amphetamines and Crack/Cocaine service: No Current occupational status: disabled Review of Systems Const Reports as per HPI and Denies weakness ENT Reports Normal hearing present and Denies dizziness Card Reports as per HPI, Denies chest pain, Denies chest pain at rest, Denies chest pain with activity, Denies dyspnea and Denies dyspnea on exertion Resp Reports as per HPI, Denies cough, Denies dyspnea and Denies dyspnea on exertion GI Reports as per HPI, Denies abdominal pain, Denies nausea and Denies vomiting Musc Denies numbness Skin/Breast Reports as per HPI, Denies erythema and Denies wounds Neuro Reports Normal hearing present, Denies dizziness, Denies numbness, Denies Sensory deficit (Neuro) and Denies weakness Psych Reports no additional complaints Endo Reports no additional complaints Physical Exam Const General: healthy appearing and no acute distress Orientation/consciousness: patient oriented x3 HEENT Head: Yes normal to inspection Ears: hearing grossly normal bilaterally Mouth: Normal oral and palatal mucosa present Resp Effort & Inspection: normal respiratory effort and able to speak in complete sentences Auscultation: clear to auscultation bilaterally Cardio Jugular venous distension: no JVD Rate: regular rate Rhythm: regular rhythm Heart sounds: S1 normal heart sound present and S2 normal heart sound present Bruits: no abdominal aortic bruits, no carotid bruits, no femoral bruits and no renal bruits Peripheral pulses: Peripheral pulses 2+ throughout GI Inspection: Yes normal to inspection Palpation (GI): No Abdominal aortic bruit present Skin General skin exam: no rashes or lesions noted Wounds: no wounds Hair: normal Neuro General: patient oriented x3 Cranial nerves: Yes Normal hearing present Cognition (Neuro): normal cognition Gait exam (Neuro): Normal gait present Motor exam (neuro): 5/5 motor strength present throughout Sensory Exam: No Sensory deficit (Neuro) Extrem Other: Bilateral lower extremities: small amount of discoloration noted around the lower shins and ankles. Palpable DP pulses. Scarring noted along the track of left GSV, hard to palpation. Spider veins noted in lower extremities. CEAP: C - 4 E - primary A - superficial P - reflux General: Yes normal to inspection, Yes full ROM, Yes capillary refill normal and Yes normal gait Assessment & Plan Assessment & Plan (1) Varicose veins of both lower extremities with inflammation: Code(s): I83.11 - Varicose veins of right lower extremity with inflammation; I83.12 - Varicose veins of left lower extremity with inflammation Category: Medical Plan: Cristobal is presenting today on a referral from his PCP for ongoing varicose veins with cramping, pain, and fatigue. This has been going on for years but getting worse. In short, the patient has evidence of venous insufficiency. I have discussed the pathophysiology with the patient. In addition I have provided informational material regarding venous disease to the patient. We have discussed conservative measures including compression, elevation, and exercise. I have also provided a handout regarding appropriate use of compression stockings and where to purchase good compression stockings as well. I have taken the liberty of ordering venous insufficiency testing with the patient. They will follow up with me after testing. The patient had an opportunity to ask questions regarding the treatment plan. All questions were answered. Imaging studies, laboratory studies and physical exam results were discussed and reviewed in detail. No major barriers to understanding were identified. The patient expressed understanding and agreement with the above treatment plan. The patient is aware they should contact our office by phone for worsening of the current condition or the appearance of new symptoms. Thank you for allowing me to participate in the vascular care of this patient. If you have any questions or concerns regarding the treatment for the above condition please do not hesitate to contact me. The office telephone contact is [phone]. This note is constructed using voice recognition software. While every effort has been made to ensure accuracy, rubber compounder formulator errors may have been included. Thank you for allowing me to participate in the care of your patient. Yours sincerely, ENOC Rogers Orders: Orders US venous duplex LE BI 1 Week I83.11 - Varicose veins of right lower extremity with inflammation, I83.12 - Varicose veins of left lower extremity with inflammation Coding Level of Care Code New Pt Level 4 (91567) Diagnoses Varicose veins of both lower extremities with inflammation I83.11; I83.12
== END 2024-07-16 12:42 | disposition home or self-care (01) ==
PROVIDERS: PCP Family Medicine; Visit Provider Physician Assistant Surgical
DX: I83.11 Varicose veins of right lower extremity with inflammation (principal); I83.12 Varicose veins of left lower extremity with inflammation
CPT/HCPCS: 99204

== ENCOUNTER → 2024-07-16 11:19 | Outpatient (BNVA) | payer MEDICARE, MEDICAID, SELFPAY | PROVIDERS: PCP Family Medicine; Visit Provider Physician Assistant Surgical | DX: I83.11 Varicose veins of right lower extremity with inflammation (principal); I83.12 Varicose veins of left lower extremity with inflammation | CPT/HCPCS: 99202 ==

== ENCOUNTER 2024-07-23 11:03 | Emergency (ER) | payer MEDICARE, MEDICAID, SELFPAY ==
--- NOTE | ~2024-07-23 | US_ITS ---
CLINICAL HISTORY: pain Venous duplex ultrasound right lower extremity COMPARISON: None FINDINGS: The visualized deep veins are fully compressible with normal Doppler color flow and spectral tracings. No popliteal cyst. IMPRESSION: 1. Negative for right lower extremity deep vein thrombosis. This document has been electronically signed by: Gelacio Leone MD on 07/23/2024 17:16:04
[2024-07-23 11:58] VITALS: BP 108/64; PULSE 62; RESP 20; TEMP 36.3; O2SAT 98; BMI 25.8
--- NOTE | 2024-07-23 12:01 | ED.GENADULT ---
HPI - General Adult General Chief complaint: Extremity Problem Stated complaint: R Foot Pain Time Seen by Provider: 07/23/24 15:00 Source: patient, RN notes reviewed and old records reviewed Mode of arrival: ambulatory Limitations: no limitations History of Present Illness ED Provider: OLIVIA WEST PA-C HPI narrative: 54 year old male with pmhx significant for OA, etoh abuse, substance abuse, anxiety, anemia, varicose veins, venous insufficiency and neuropathy presents to the ED today for evaluation of burning pain and numbness to the bottom of his right foot x2 days. Reports shortness of breath 1 month ago for which he was evaluated at [facility] x2 with unremarkable work up. He has since followed up with a new vascular doctor last week (Dr. Lawton) and was diagnosed with venous insufficiency. He has ultrasound of b/l LEs scheduled next week. He also follows with orthopedics outpatient, last appointment was earlier this month, s/p hip replacement x2. 2 days ago he began to have burning pain to the inner aspect of his foot along with numbness. He has attempted to contact his vascular surgeon's office however has not heard back, prompting him to come to the ED for evaluation. At present, he denies any fever, chills, chest pain, palpitations, SOB. No injury/ trauma to the foot. No hx of similar. He has not trialed any OTC medications for pain at home. Related Data Home Medications ?Medication ?Instructions ?Recorded ?Confirmed clonazepam 1 mg tablet 1 mg PO DAILY 05/22/20 07/26/23 cyclobenzaprine 10 mg tablet 20 mg PO BEDTIME PRN muscle spasm 10/06/21 07/26/23 methadone 40 mg soluble tablet 75 mg PO DAILY 12/23/22 07/15/23 calcium polycarbophil 625 mg 625 mg PO DAILY 07/26/23 07/26/23 tablet (Fiber-Lax) [id number] 1 tab PO DAILY 07/26/23 07/26/23 fumarate 7.5 mg-folic acid 400 mcg tablet Previous Rx's ?Medication ?Instructions ?Recorded acetaminophen 325 mg tablet 650 mg (2 x 325 mg) PO Q6H PRN 07/27/23 Pain, Mild (Pain Scale 1-3) 30 days #240 tabs aspirin 325 mg tablet 325 mg PO Q12H 42 days #84 tabs 07/27/23 Elevated toliet seat #1 ea 07/29/23 ketorolac 10 mg tablet 10 mg PO Q8H 5 days #15 tabs 07/23/24 Allergies Allergy/AdvReac Type Severity Reaction Status Date / Time No Known Allergies Allergy Verified 07/23/24 12:01 Review of Systems Review of Systems: Constitutional: No fever, chills, fatigue, night sweats, weight changes ENT/Mouth: No ear pain, hearing loss, nasal congestion, sinus pain, rhinorrhea, sore throat Eyes: No eye pain, swelling, redness, vision changes, discharge Cardio: No chest pain, palpitations, PARKS, orthopnea, peripheral edema Pulm: No SOB, cough, sputum, wheezing, dyspnea, hemoptysis GI: No nausea, vomiting, hematemesis, abdominal pain, diarrhea, constipation, hematochezia, melena : No irregular bleeding, dysuria, frequency, urgency, hesitancy, hematuria, flank pain, urinary flow changes, urinary incontinence or retention MSK: No back pain, neck pain, joint pain, myalgias, +right foot pain Skin: No lesions, rashes Neuro: No weakness, numbness, paresthesias, LOC, dizziness, headache Psych: No anxiety/panic, depression, SI/HI, AH/VH All other systems reviewed and are negative. [facility] Past Medical History Attestation statement: The following information was validated with the patient. Source: old records reviewed and nursing notes reviewed Medical History Rash Family history of pseudocholinesterase deficiency Alcohol dependence in remission Hx of substance abuse History of COVID-19 Chronic right hip pain Degenerative disc disease Chronic back pain History of hepatitis C Chronic anemia History of alcohol abuse Anxiety Surgical History History of total right hip arthroplasty Hx of colonoscopy History of surgery History of right inguinal hernia repair History of laminectomy Family History Family History Mother Osteoarthritis Social History Social History Household Members: None Housing: Apartment Housing Other:: second floor Are you a primary home health aide caregiver to a significant other at home: No Do you presently have visiting nurse or other home services: No Alcohol intake: never Comment: Pt. refused supervision/ steady walking with crutches. Patient Tobacco Use Status: Current someday Tobacco user Tobacco use type: Cigarette Cigarettes Per Day: 3 Years Smoked: 39 Substance Use Type: Amphetamines and Crack/Cocaine Advance Directives: No Advance Directives Information Provided: Yes service: No Current occupational status: disabled Physical Exam ED Vital Signs: Vital Signs - 24 hr 07/23/24 11:58 Temperature 97.3 F Pulse Rate 62 Respiratory Rate 20 Blood Pressure 108/64 Pulse Oximetry 98 Oxygen Delivery Method Room Air BMI result Body Mass Index 25.8 vital signs stable General: Well appearing, in no acute distress. Skin: Warm, dry, intact. No rashes or lesions. Head: Normocephalic, atraumatic. EENT: Hearing is intact b/l. Conjunctiva clear. PERRLA. EOM intact. Moist mucous membranes.? Cardiac: Chest wall symmetric. RRR Lungs: Normal respiratory effort without accessory muscle use. CTA bilaterally Ext: Upper and lower extremities atraumatic, without tenderness, deformity, swelling or erythema. Full ROM throughout. ttp along medial aspect of right foot w/o palpable deformity/ crepitus. Capillary refill <2 seconds in all extremities. Pulses 2+ equal and bilateral. no calf tenderness. no ttp along achilles tendon or plantar fascia. chronic venous changes to b/l LEs. Neuro: AOx3. Normal speech. Strength 5/5 intact throughout. Sensation intact to light touch. NV intact distally. Ambulating with steady gait. Psych: Appropriate mood and affect. Responds appropriately to questions. Course Course Course Narrative: RME, this is a rapid medical exam performed by Octaviano Almaguer please refer to primary provider for complete H&P- 54-year-old male presents for evaluation of burning pain with numbness to the bottom of his right foot. He reports previous hip replacement x2. He also complains of shortness of breath. Plan for labs, INR, ultrasound of the right lower extremity to rule out DVT Reevaluation(s) Reevaluation #1: CBC without leukocytosis or left shift. Normocytic anemia, h&h stable. no concern for active bleeding. h&h above transfusion threshold. Chemistry without acute electrolyte abnormality requiring intervention. No sarah. Liver function wnl. negative covid, flu, rsv. Venous duplex rule without evidence of clot or cyst. Pain improved w/ toradol. No indication for X-rays as patient denies any trauma. Advise nsaids for pain. He has f/u appointment w/ vascular.?Patient has remained stable throughout ED visit today. Discussed worrisome signs and symptoms and when to return to the ED. All questions answered at this time. Patient is agreeable with disposition and stable for discharge. Medications Administered Discontinued Medications Generic Name Dose Route Start Last Admin Trade Name Marisol PRN Reason Stop Dose Admin Ketorolac Tromethamine 30 mg 07/23/24 15:26 07/23/24 16:25 Ketorolac Tromethamine 30 Mg/Ml Vial IM 07/23/24 15:27 30 mg ONCE ONE Administration Medical Decision Making Medical Decision Making [facility] Narrative: 54 year old male with pmhx significant for OA, etoh abuse, substance abuse, anxiety, anemia, varicose veins, venous insufficiency and neuropathy presents to the ED today for evaluation of burning pain and numbness to the bottom of his right foot x2 days. vital signs stable, afebrile, not hypoxic or tachycardic. he is anxious appearing however in NAD. exam showing upper and lower extremities atraumatic, without deformity, swelling or erythema. Full ROM throughout. ttp along medial aspect of right foot w/o palpable deformity/ crepitus. chronic venous changes to b/l LEs. Capillary refill <2 seconds in all extremities. Pulses 2+ equal and bilateral. no calf tenderness. no ttp along achilles tendon or plantar fascia. Differential diagnosis includes contusion, DVT, varicose veins, chronic venous insufficiency. unlikely fracture, subluxation, osteomyelitis, arterial occlusion, nv compromise, or threat to limb. plan for labs, INR, venous duplex, pain control, and re-evaluation. Differential Diagnosis Differential Diagnoses: The differential diagnosis associated with the presentation includes as above Admission/Observation not indicated Lab Data [facility] Lab Attestation statement: I reviewed the patient's lab results. as above. 07/23/24 12:47 07/23/24 12:47 Labs: Lab Results 07/23/24 Range/Units 12:47 WBC 4.9 (4.8-10.8) X10*3/uL RBC 4.20 L (4.60-5.80) X10*6/uL Hgb 12.5 L (14.0-18.0) g/dl Hct 37.2 L (42.0-52.0) % MCV 88.6 (80.0-98.0) fL MCH 29.8 (27.0-33.0) pg MCHC 33.6 (31.0-36.0) g/dl RDW 12.4 (11.0-16.0) % Plt Count 178 (160-400) X10*3/uL MPV 9.9 (9.4-12.4) fL Immature Gran % (Auto) 0.4 (0.0-0.4) % Neut % (Auto) 65.7 (45-73) % Lymph % (Auto) 26.1 (20-40) % [place] % (Auto) 5.8 (2-11) % Eos % (Auto) 1.4 (0-4) % Baso % (Auto) 0.6 (0-2) % Lymph # (Auto) 1.3 (1.2-4.9) X10*3/uL [place] # (Auto) 0.3 (0.1-1.2) X10*3/uL Eos # (Auto) 0.1 (0.0-0.4) X10*3/uL Baso # (Auto) 0.0 (0.0-0.2) X10*3/uL Abs Immat Gran (auto) 0.02 (0.00-0.03) X10*3/uL Absolute Neuts (auto) 3.2 (2.0-8.3) x10*3/uL Absolute Nucleated RBC 0.000 (0.0-0.012) X10*3/uL Nucleated RBC % (auto) 0.0 (0.0-0.2) /100WBC PT 13.9 H (10.9-12.4) SEC INR 1.2 H (0.9-1.1) Sodium 141 (135-145) mmol/L Potassium 3.8 (3.3-5.1) mmol/L Chloride 106 (96-108) mmol/L Carbon Dioxide 29 (22-29) mmol/L Anion Gap 10 L (12-20) BUN 14 (9-16) mg/dL Creatinine 0.83 (0.5-1.4) mg/dL Estim Creat Clear Calc 102.6 Estimated GFR > 60 Random Glucose 94 (60-115) mg/dL Calcium 8.5 D (8.4-10.2) mg/dL Magnesium 1.8 (1.6-2.6) mg/dL Total Bilirubin 0.5 (0.0-1.0) mg/dL AST 21 (5-37) U/L ALT 14 (0-40) U/L Alkaline Phosphatase 116 (39-117) U/L Total Protein 6.8 (6.5-8.0) g/dL Albumin 4.2 (3.5-5.0) g/dL Lipase 12 (8-78) U/L Influenza Type A (PCR) NEGATIVE (Negative) Influenza Type B (PCR) NEGATIVE (Negative) RSV RNA Qual (PCR) NEGATIVE (Negative) SARS-CoV-2 RNA (RT-PCR) NEGATIVE (Negative) Independent Interpretation I performed an independent interpretation of an: Ultrasound Interpretation: us RLE w/o deep venous occlusion Radiology Impression Discussion of test interpretation with radiology: I have reviewed the radiologist's reading. Radiologist Impression: CLINICAL HISTORY: pain Venous duplex ultrasound right lower extremity COMPARISON: None FINDINGS: The visualized deep veins are fully compressible with normal Doppler color flow and spectral tracings. No popliteal cyst. IMPRESSION: 1. Negative for right lower extremity deep vein thrombosis. This document has been electronically signed by: Gelacio Leone MD on 07/23/2024 17:16:04 External Record Review External record reviewed: Inpatient record, Office record, Outpatient record, Prior outpatient labs, Prior outpatient radiology, Primary care record and Outside ED record Tests considered The following testing was considered but not selected: i considered obtaining arterial US however exam is not concerning for acute arterial occlusion. not indicated at this time. Prescription Management I considered prescription management with: Pain Medication Chronic Conditions Patient?s care impacted by: Other (varicose veins, venous infufficiency) Social Determinants Patient?s care significantly limited by Social Determinants of Health including: Other Social Determinant of Health Discharge Plan Discharge Clinical Impression: Venous insufficiency Patient Disposition: Home, Self-Care Instructions: Peripheral Vascular Disease (ED), Venous Insufficiency (DC) Additional Instructions: You were evaluated in the ED today for right foot/ leg pain. Your evaluation has shown no signs of medical conditions requiring emergent intervention at this time. I recommend that you follow up with your primary care provider and vascular surgeon for further evaluation. Toradol has been sent to your pharmacy for you to take as needed for pain. Do not take this with other NSAIDs such as Motrin as this can cause increased risk of GI bleeding/ upset. Return with new or worsening symptoms. In the case of an emergency call 911. Prescriptions: New ketorolac 10 mg tablet 10 mg PO Q8H 5 Days Qty: 15 0RF No Action (DME) Elevated toliet seat See Rx Instructions .ROUTE .MEDSUPPLY Qty: 1 0RF Rx Instructions: As directed calcium polycarbophil [Fiber-Lax] 625 mg tablet 625 mg PO DAILY [id number] fum-folic ac 7.5 mg iron-400 mcg tablet 1 tab PO DAILY acetaminophen 325 mg Tablet 650 mg PO Q6H PRN (Reason: Pain, Mild (Pain Scale 1-3)) 30 Days Qty: 240 0RF aspirin 325 mg Tablet 325 mg PO Q12H 42 Days Qty: 84 0RF clonazepam 1 mg tablet 1 mg PO DAILY methadone 40 mg tablet,soluble 75 mg PO DAILY cyclobenzaprine 10 mg tablet 20 mg PO BEDTIME PRN (Reason: muscle spasm) Referrals: [facility] [place] Vascular Services [Provider Group] Zahraa Roca DO [Primary Care Provider] - Interventions: ED Discharge Assessment Last Done: 07/23/24 18:18 Discharge Date/Time: 07/23/24 18:19 Print Language: Maltese
[2024-07-23 12:56] LABS: MANUAL DIFF FLAG NO
[2024-07-23 12:58] LABS: Basophils Percent Auto 0.6 % (0-2); Eosinophils Absolute Auto 0.1 X10*3/uL (0.0-0.4); Eosinophils Percent Auto 1.4 % (0-4); Hematocrit 37.2 % (42.0-52.0); Hemoglobin 12.5 g/dl (14.0-18.0); Imm Gran Abs Auto 0.02 X10*3/uL (0.00-0.03); Imm Gran Pct Auto 0.4 % (0.0-0.4); Lymphocytes Absolute Auto 1.3 X10*3/uL (1.2-4.9); Lymphocytes Percent Auto 26.1 % (20-40); Mean Corpuscular HGB Conc 33.6 g/dl (31.0-36.0); Mean Corpuscular Hemoglobin 29.8 pg (27.0-33.0); Mean Corpuscular Volume 88.6 fL (80.0-98.0); Mean Platelet Volume 9.9 fL (9.4-12.4); Monocytes Absolute Auto 0.3 X10*3/uL (0.1-1.2); Monocytes Percent Auto 5.8 % (2-11); Neutrophils Absolute Auto 3.2 x10*3/uL (2.0-8.3); Neutrophils Percent Auto 65.7 % (45-73); Platelet Count 178 X10*3/uL (160-400); Red Cell Distribution Width 12.4 % (11.0-16.0); White Blood Count 4.9 X10*3/uL (4.8-10.8)
[2024-07-23 13:03] LABS: INTERNATIONAL NORM RATIO 1.2 (0.9-1.1); Prothrombin Time 13.9 SEC (10.9-12.4)
[2024-07-23 13:11] LABS: Alanine Aminotransferase 14 U/L (0-40); Albumin Level 4.2 g/dL (3.5-5.0); Alkaline Phosphatase 116 U/L (39-117); Anion Gap 10 (12-20); Aspartate Amino Transferase 21 U/L (5-37); Bilirubin Total 0.5 mg/dL (0.0-1.0); Blood Urea Nitrogen 14 mg/dL (9-16); Calcium 8.5 mg/dL (8.4-10.2); Carbon Dioxide 29 mmol/L (22-29); Chloride 106 mmol/L (96-108); Creatinine Clr Calc Pharmacy 102.6; Estimated Glomerular Filt Rate > 60; Glucose Random 94 mg/dL (60-115); Lipase 12 U/L (8-78); Magnesium 1.8 mg/dL (1.6-2.6); Potassium 3.8 mmol/L (3.3-5.1); Sodium 141 mmol/L (135-145); Total Protein 6.8 g/dL (6.5-8.0)
[2024-07-23 13:37] LABS: Influenza A PCR NEGATIVE (Negative); Influenza B PCR NEGATIVE (Negative); Resp Syncy Virus RNA Qual PCR NEGATIVE (Negative); SARS COV2 PCR INHOUSE NEGATIVE (Negative)
[2024-07-23] MEDS: Ketorolac Tromethamine 30 MG/ML VIAL IM (16:25)
[2024-07-23 18:18] VITALS: BP 108/64; PULSE 62; RESP 20; TEMP 36.3; O2SAT 98
== END 2024-07-23 18:19 | disposition home or self-care (01) ==
PROVIDERS: Physician Assistant; Emergency Provider Emergency Medicine; PCP Family Medicine
DX: I87.2 Venous insufficiency (chronic) (peripheral) (principal); M79.671 Pain in right foot; R20.0 Anesthesia of skin; R06.02 Shortness of breath; Z79.899 Other long term (current) drug therapy; Z96.643 Presence of artificial hip joint, bilateral; Z03.818 Encounter for observation for suspected exposure to other biological agents ruled out
CPT/HCPCS: 0241U; 36415; 80053; 83690; 83735; 85025; 85610; 93971; 96372; 99283; 99284; J1885

== ENCOUNTER → 2024-07-23 12:04 | Outpatient (BNV) | payer MEDICARE, MEDICAID, SELFPAY | PROVIDERS: Emergency Provider Emergency Medicine; PCP Family Medicine; Visit Provider Radiology Diagnostic Radiology | DX: M79.604 Pain in right leg (principal) | CPT/HCPCS: 93971 ==

== ENCOUNTER 2024-08-14 12:49 | Outpatient (AMB) | payer MEDICARE, MEDICAID, SELFPAY ==
--- NOTE | 2024-08-14 12:50 | MHC.OFFVIS ---
Vital Signs 08/14/24 13:00 Height 5 ft 10 in Weight 165 lb BMI 23.7 BP 133/67 Blood Pressure Location Rt brachial Position Sitting Pulse 59 Intake Visit Reasons: elbow wound Intake Note: Patient referred by pcp Dr. Cyr for cyst on Rt forearm. Present for 4-5m. Patient c/o: enlarging, tender to touch. Was drained at [facility] 1m ago. Dipper And Drier Required: No Accompanied by: Self / Same As Patient Allergies No Known Allergies Allergy (Verified 08/14/24 12:58) Medication List - Last Reconciled 08/14/24 by Sergei Christine MD acetaminophen 650 mg (2 x 325 mg) PO Q6H PRN 30 days aspirin 325 mg PO Q12H 42 days calcium polycarbophil (Fiber-Lax) 625 mg PO DAILY clonazepam 1 mg PO DAILY cyclobenzaprine 20 mg PO BEDTIME PRN [Elevated toliet seat As directed] ketorolac 10 mg PO Q8H 5 days methadone 75 mg PO DAILY zcgruvfv-dxe-bmgn fum-folic ac 7.5 mg iron-400 mcg 1 tab PO DAILY HPI Comments Details: Patient was sustained an injury to the right elbow at work where he was pale with 2 nails/puncture wounds. He has since had infections and required drainage of the elbow through ER visits. Now presents here because of a persistent discomfort and swelling. He is unclear if there is a retained foreign body in the area. He does not recall ever having an x-ray elbow. His hospitalization/ER visits were all done at [facility] and here.. No no other issues elsewhere. Extremity is working otherwise well. Chart was reviewed and patient evaluated [facility] Medical History Rash Family history of pseudocholinesterase deficiency Alcohol dependence in remission Hx of substance abuse History of COVID-19 Chronic right hip pain Degenerative disc disease Chronic back pain History of hepatitis C Chronic anemia History of alcohol abuse Anxiety Surgical History (Updated 08/14/24 @ 13:16 by Sergei Christine MD) History of left hip replacement History of total right hip arthroplasty Hx of colonoscopy History of surgery History of right inguinal hernia repair History of laminectomy Family History Mother Osteoarthritis Social History Household Members: None Housing: Apartment Housing Other:: second floor Are you a primary post acute care nurse practitioner to a significant other at home: No Do you presently have visiting nurse or other home services: No Alcohol intake: never Comment: Pt. refused supervision/ steady walking with crutches. Patient Tobacco Use Status: Current someday Tobacco user Tobacco use type: Cigarette Cigarettes Per Day: 3 Years Smoked: 39 Substance Use Type: Amphetamines and Crack/Cocaine service: No Current occupational status: disabled Physical Exam Vital Signs: Last Vital Signs Pulse 59 08/14/24 13:00 BP 133/67 08/14/24 13:00 BMI result Body Mass Index 23.7 Extrem Other: Right upper extremities grossly neurovascularly intact. Mild swelling of the elbow. There is some mild resolving erythema of the elbow area. There was also a small lipoma which is palpable. Patient thinks that there is still a retained foreign body in the area. Assessment & Plan Assessment & Plan (1) Foreign body of elbow: Code(s): S50.359A - Superficial foreign body of unspecified elbow, initial encounter Category: Surgical Plan: Current plan is to obtain a plain film of the right elbow 3-0 of foreign body and further interventions studies will be directed by the results of this. Patient understands plan and will see me after this. All questions answered. Orders: Orders XR elbow RT 2V Today S50.359A - Superficial foreign body of unspecified elbow, initial encounter Coding Level of Care Code New Pt Level 4 (83762) Diagnoses Foreign body of elbow S50.359A
[2024-08-14 13:00] VITALS: BP 133/67; PULSE 59; BMI 23.7
== END 2024-08-14 13:12 | disposition home or self-care (01) ==
PROVIDERS: PCP Family Medicine; Visit Provider Surgery
DX: S50.35 Superficial foreign body of elbow (principal)
CPT/HCPCS: 99204

== ENCOUNTER → 2024-08-14 12:49 | Outpatient (BNVA) | payer MEDICARE, MEDICAID, SELFPAY | PROVIDERS: PCP Family Medicine; Visit Provider Surgery | DX: S50.351A Superficial foreign body of right elbow, initial encounter (principal); W45.0XXA Nail entering through skin, initial encounter; Y93.9 Activity, unspecified; Y92.9 Unspecified place or not applicable; Y99.0 Civilian activity done for income or pay | CPT/HCPCS: 99202 ==

== ENCOUNTER 2024-08-15 08:11 | Outpatient (REF) | payer MEDICARE, MEDICAID, SELFPAY ==
--- NOTE | ~2024-08-15 | US_ITS ---
EXAMINATION: US LOWER EXTREMITY VENOUS (REFLUX EXAM), BILATERAL CLINICAL INFORMATION: Varices with inflammation, right lower extremity. COMPARISON: Ultrasound venous duplex right lower extremity dated July 23, 2024. TECHNIQUE: Color flow triplex imaging and compression Doppler was performed to evaluate both the deep and the superficial systems bilaterally. To evaluate the superficial system, the examination was performed in the upright position. Color-flow Doppler ultrasound and compression ultrasound were utilized. In addition, maneuvers were utilized to demonstrate reflux. FINDINGS: 1. DEEP VENOUS ULTRASOUND OF THE RIGHT LOWER EXTREMITY: Common Femoral Vein: Compressible, normal respiratory variation and augmented flow. Femoral Vein: Compressible, normal color flow and augmentation. Popliteal Vein: Compressible, normal augmentation. Deep Reflux: There is no evidence of reflux in the deep system in either the common femoral vein, superficial femoral or the popliteal vein. There is no evidence of a Russo's cyst. Nonspecific prominent 1.3 cm lymph node, right inguinal region. 2. SUPERFICIAL ULTRASOUND WITH DOPPLER OF RIGHT LOWER EXTREMITY: GREAT SAPHENOUS VEIN: Saphenofemoral Junction: 0.8 cm; Reflux: 0 ms Proximal Thigh: 0.6 cm; Reflux: 0 ms Mid Thigh: 0.2 cm; Reflux: More than 2832 ms Distal Thigh: 0.3 cm; Reflux: More than 2672 ms At Knee: 0.2 cm; Reflux: More than 2636 ms Proximal Calf: 0.3 cm; Reflux: More than 3260 ms Mid Calf: 0.2 cm; Reflux: 2732 ms Distal Calf: 0.1 cm; Reflux: 0 ms DUPLICATED MEDIAL GREAT SAPHENOUS VEIN: Diameter: None imaged Reflux: NA DUPLICATED LATERAL GREAT SAPHENOUS VEIN: Diameter: None imaged Reflux: NA SMALL SAPHENOUS VEIN: Saphenopopliteal Junction: 0.2 cm; Reflux: 0 ms Proximal: 0.2 cm; Reflux: 0 ms Distal: 0.2 cm; Reflux: 0 ms VEIN OF GIACOMINI: Size: 0.3 Reflux: NA PERFORATORS: Location: None imaged Size: NA Reflux: NA VARICOSITIES: Location: None imaged. Size: NA Reflux: NA 3. DEEP VENOUS ULTRASOUND OF THE LEFT LOWER EXTREMITY: Common Femoral Vein: Compressible, normal respiratory variation and augmented flow. Femoral Vein: Compressible, normal color flow and augmentation. Popliteal Vein: Compressible, normal augmentation. Deep Reflux: There is no evidence of reflux in the deep system in either the common femoral vein, superficial femoral or the popliteal vein. There is no evidence of a Russo's cyst. 4. SUPERFICIAL ULTRASOUND WITH DOPPLER OF LEFT LOWER EXTREMITY: GREAT SAPHENOUS VEIN: Saphenofemoral Junction: 0.7 cm; Reflux: 0 ms Proximal Thigh: 0.3 cm; Reflux: 0 ms Mid Thigh: 0.2 cm; Reflux: More than 2744 ms Distal Thigh: 0.3 cm; Reflux: More than 2820 ms At Knee: 0.2 cm; Reflux: More than 2568 ms Proximal Calf: 0.3 cm; Reflux: More than 2616 ms Mid Calf: 0.2 cm; Reflux: More than 2752 ms Distal Calf: 0.2 cm; Reflux: More than 2898 ms DUPLICATED MEDIAL GREAT SAPHENOUS VEIN: Diameter: None imaged Reflux: NA DUPLICATED LATERAL GREAT SAPHENOUS VEIN: Diameter: None imaged. Reflux: NA SMALL SAPHENOUS VEIN: Saphenopopliteal Junction: 0.2 cm; Reflux: 0 ms Proximal: 0.2 cm; Reflux: 0 ms Distal: 0.2 cm; Reflux: 0 ms VEIN OF GIACOMINI: Size: 0.3 Reflux: NA PERFORATORS: Location: None imaged Size: NA Reflux: NA VARICOSITIES: Location: None Imaged Size: NA Reflux: NA US/US venous insuf bilat IMPRESSION: Right: Venous insufficiency right greater saphenous vein from the mid thigh to the mid calf. Left: Venous insufficiency left greater saphenous vein from the mid thigh to the ankle. Electronically signed by: Boris Sears MD 08/20/2024 07:40 AM [facility]
--- NOTE | ~2024-08-15 | XR_ITS ---
CLINICAL HISTORY: S50.359A - Superficial foreign body of unspecified elbow, initial encounter 3 views right elbow Comparison: none Findings: No fractures or dislocations No significant arthritic change No radiopaque foreign body A small 1 x 3 mm opacity is present in the region of the distal triceps olecranon attachment may represent calcific tendinitis. Impression: Joint distances are normal. No acute skeletal abnormality. There is soft tissue swelling in the region of the olecranon bursa. This document has been electronically signed by: Shalom Coronado MD on 08/15/2024 22:35:17
--- OUTSIDE RECORDS SUMMARY | 2024-08-15 08:14 | XMS_ITS | Encounter Summary ---
Author Organization [employer] Address [address] [place] [address] 7 [place] [address] Care Team Providers Care Electrical Assembly Technician Name Role Phone Zahraa Roca DO Primary Care Provider + [phone] Christian Soria Unavailable Unavailable Reason for Visit * Reason Onset Date Comments PT-1 04/17/2024 Encounter Details Date Type Department Care Team (Late st Contact Info) Description 04/17/2024 Telephone [facility] MEDICINE [address] [place], [place] [phone] Zahraa Roca DO [address] [place], [place] [phone] PT-1 Social History Tobacco Use Types Packs/Day Years Used Date Smoking Tobacco: Every Day Cigarettes Passive Smoke Exposure: Current Smokeless Tobacco: Current Alcohol Use Standard Drinks/Week Comments Not Currently 0 (1 standard drink = 0.6 oz pur e alcohol) Depression Answer Date Recorded Patient Health Questionnaire-9 Score 0 11/28/2023 Patient Health Questionnaire-9 Score 0 11/28/2023 Last PHQ-9: Questionnaire Data Not on file 0 11/28/2023 Housing Stability Answer Date Recorded What is your housing situation today? I have valentin beaulieu 03/12/[address] you li ve. Do you have problems with any of the following? None of the above 03/12/2024 Food Insecurity Answer Date Recorded Within the past 12 months, y ou worried that your food would run out before you got money to buy more: Sometimes True 2023 Within the past 12 months,th e food you bought just didn't last and you didn't have enough money to get more: Sometimes True 03/12/2024 Transportation Answer Date Recorded In the past 12 months, has l ack of transportation kept you from medical appts, meetings, work or from getting things needed for daily living? Yes, it has kept me from non-medical meetings, work, or getting things that I need 03/12/2024 Utilities Answer Date Recorded In the past 12 months, has t he electric, gas, oil or water company threatened to shut off services in your home? No 03/12/2024 Depression Answer Date Recorded Patient Health Questionnaire-2 Score 0 11/28/2023 Internet Access Answer Date Recorded Internet Access Q1 Yes 03/23/2024 Internet Access Q2 Not on file 03/23/2024 Sex and Gender Information Value Date Recorded Sex Assigned at Male 08/17/2022 10:13 AM EST Legal Sex Male 8:35 PM EDT Gender Identity Male 08/17/2022 10:13 AM EST Sexual Orientation Straight 08/17/2022 10 :13 AM EST documented as of this encounter Miscellaneous Notes * Telephone Encounter - Nigel Michael - 04/17/2024 9:29 AM EDT Patient calling requesting PT1 Home Address verified: Y/N: Yes Provider name or facility name: [facility] Address: [address] [place] [id number] Escort needed: Y/N: No Do you have a wheelchair: Y/N: No If yes- Manual or electric: N/A Visits: Twice a month documented in this encounter Plan of Treatment Upcoming Encounters Date Type Department Care Team ([facility] st Contact Info) Description 08/28/2024 11:30 AM EST Office Visit [facility] CHC MED & PEDS [address] [place] [address] Claus Escobar MD [address] [place] [address] 08/29/2024 10:00 AM EST Clinical Support [facility] MEDICINE [address] [place] [phone] Mere Rios, RN documented as of this encounter Visit Diagnoses Not on filedocumented in this encounter Additional Health Concerns Assessment Noted Time PHQ-9 Depression Total Score: 0 11/28/19 24 11:23 AM EDT documented as of this encounter Care Teams Electrical Assembly Technician Relationship Specialty Start Date End Date Zahraa Roca DO [address] [place] [address] PCP - General Family Medicine 07/25/18 Christian Soria FNP [address] [place] [address] Nurse Practitioner Family Medicine 06/24/23 documented as of this encounter
--- OUTSIDE RECORDS SUMMARY | 2024-08-15 08:14 | XMS_ITS | Encounter Summary ---
Author Organization [employer] Address [address] [place] [address] 7 [place] [address] Care Team Providers Care General Machine Operator Name Role Phone Zahraa Roca DO Primary Care Provider + [phone] Christian Soria Unavailable Unavailable Reason for Visit * Reason Comments Care Coordination CHW outreach for SDO H PT-1 - LVM Encounter Details Date Type Department Care Team (Latest Contact Info) Description 07/17/2024 Patient Outreach [facility] MEDICINE [address] [place], [place] [phone] Zahraa Roca DO [address] [place], [place] [phone] Care Coordination (CHW outreach for SDOH PT-1 - LVM ) Social History Tobacco Use Types Packs/Day Years [...] AM EST documented as of this encounter Progress Notes * Ayan Caro - 07/17/2024 9:29 AM EST CHW Ayan Caro, placed outbound call to patient for assistance with SDOH as a referral was placed by the provider. Patient had screened positive for the following SDOH insecurities. No answer atthis time. Patient's name and were not confirmed. CHW left detailed message and provided contact information requesting return call for assistance. Patient educated on extended clinic hours on Mondays through Wednesdays, and Walk-In Urgent Care Located in [facility]. Patient provided with after-hours line for [facility], , which offer night time triage service and option to transfer toon call provider if needed. documented in this encounter Plan of Treatment Upcoming Encounters Date Type Department Care Team ([facility] st Contact Info) Description 08/28/2024 11:30 AM EST Office Visit [facility] MED & PEDS [address] [place] [address] Claus Escobar MD [address] [place] [address] 08/29/2024 10:00 AM EST Clinical Support [facility] MEDICINE [address] [place] [address] Mere Rios, RN documented as of this encounter Visit Diagnoses Not on filedocumented in this encounter Additional Health Concerns Assessment Noted Time PHQ-9 Depression Total Score: 0 11/28/19 24 11:23 AM EDT documented as of this encounter Care Teams General Machine Operator Relationship Specialty Start Date End Date Zahraa Roca DO [address] [place] [id number] PCP - General Family Medicine 07/25/18 Christian Soria FNP [address] [place] [address] Nurse Practitioner Family Medicine 06/24/23 documented as of this encounter
--- OUTSIDE RECORDS SUMMARY | 2024-08-15 08:14 | XMS_ITS | Encounter Summary ---
Author Organization [employer] Address [address] [facility] 7t [place] [address] Care Team Providers Care Washing Machine Mechanic Name Role Phone Abelino Zahraa Primary Care Provider + [phone] Christian Soria Unavailable Unavailable Encounter Details Date Type Department Care Team (Late st Contact Info) Description 11/03/2023 Orders Only [facility] MEDICINE [address] [place] [address] Provider, MD Hiral Social History Tobacco Use Types Packs/Day Years Used Date Smoking Tobacco: Every Day Cigarettes Passive Smoke Exposure: Current Smokeless Tobacco: Current Alcohol Use Standard Drinks/Week Comments Not Currently 0 (1 standard drink = 0.6 oz pur e alcohol) Depression Answer Date Recorded Patient Health Questionnaire-9 Score 0 09/26/2023 Patient Health Questionnaire-9 Score 0 09/26/2023 Last PHQ-9: Questionnaire Data Not on file 0 09/26/2023 Housing Stability Answer Date Recorded What is your housing situation today? I have valentin beaulieu 05/10/[address] you li ve. Do you have problems with any of the following? None of the above 05/10/2023 Food Insecurity Answer Date Recorded Within the past 12 months, y ou worried that your food would run out before you got money to buy more: Never True 05/10/2023 Within the past 12 months,th e food you bought just didn't last and you didn't have enough money to get more: Never True Transportation Answer Date Recorded In the past 12 months, has l ack of transportation kept you from medical appts, meetings, work or from getting things needed for daily living? No 05/10/2023 Utilities Answer Date Recorded In the past 12 months, has t he electric, gas, oil or water company threatened to shut off services in your home? No 05/10/2023 Depression Answer Date Recorded Patient Health Questionnaire-2 Score 0 09/26/2023 Sex and Gender Information Value Date Recorded Sex Assigned at Male 08/17/2022 10:13 AM EST Legal Sex Male 8:35 PM EDT Gender Identity Male 08/17/2022 10:13 AM EST Sexual Orientation Straight 08/17/2022 10 :13 AM EST documented as of this encounter Plan of Treatment Upcoming Encounters Date Type Department Care Team (Late st Contact Info) Description 08/28/2024 11:30 AM EST Office Visit [facility] CHC MED & PEDS [address] [place], [place] [phone] Claus Escobar MD [address] [place] [address] 08/29/2024 10:00 AM EST Clinical Support [facility] MEDICINE [address] [place] [address] Mere Rios RN documented as of this encounter Procedures Procedure Name Priority Date/Time Associated Diagnosis Comments HM COLONOSCOPY Routine 03/16/2023 9:43 AM EDT documented in this encounter Results * Hm Colonoscopy (03/16/2023 9:43 AM EDT) us Historical Provider HEALTH MAINTENANCE Final Result documented in this encounter Visit Diagnoses Not on filedocumented in this encounter Additional Health Concerns Assessment Noted Time PHQ-9 Depression Total Score: 0 09/26/19 24 11:23 AM EST documented as of this encounter Care Teams Washing Machine Mechanic Relationship Specialty Start Date End Date Zahraa Roca DO [address] [place] [address] PCP - General Family Medicine 07/25/18 Christina Soria FNP [address] [place] [address] Nurse Practitioner Family Medicine 06/24/23 documented as of this encounter
--- OUTSIDE RECORDS SUMMARY | 2024-08-15 08:14 | XMS_ITS | Encounter Summary ---
Author Organization [employer] Address [address] [place] [address] 7 [place] [address] Care Team Providers Care Vocal Music Teacher Name Role Phone Zahraa Roca DO Primary Care Provider + [phone] Christian Soria Unavailable Unavailable Reason for Visit * Reason Onset Date Comments PT1 01/03/2024 Encounter Details Date Type Department Care Team (Late st Contact Info) Description 01/03/2024 Telephone [facility] MEDICINE [address] [place], [place] [phone] Zahraa Roca DO [address] [place], [place] [phone] PT1 Social History Tobacco Use Types Packs/Day Years [...] Recorded Patient Health Questionnaire-2 Score 0 11/28/2023 Sex and Gender Information Value Date Recorded Sex Assigned at Male 08/17/2022 10:13 AM EST Legal Sex Male 8:35 PM EDT Gender Identity Male 08/17/2022 10:13 AM EST Sexual Orientation Straight 08/17/2022 10 :13 AM EST documented as of this encounter Miscellaneous Notes * Telephone Encounter - Alexa Sheehan - 01/03/2024 11:40 AM EDT Patient calling requesting PT1 Home Address verified: Y/N: Yes Provider name [facility] facility [facility] Facility Address: [address] [place] [address] Escort needed: Y/N: No Do you have a wheelchair: Y/N: No If yes- Manual or electric: none Visits: 7 days a week documented in this encounter Plan of Treatment Upcoming Encounters Date Type Department Care Team ([facility] st Contact Info) Description 08/28/2024 11:30 AM EST Office Visit [facility] CHC MED & PEDS [address] [place] [address] Claus Escobar MD [address] [place] [address] 08/29/2024 10:00 AM EST Clinical Support [facility] MEDICINE [address] [place] [address] Mere Rios, HENRIK documented as of this encounter Visit Diagnoses Not on filedocumented in this encounter Additional Health Concerns Assessment Noted Time PHQ-9 Depression Total Score: 0 11/28/19 24 11:23 AM EDT documented as of this encounter Care Teams Vocal Music Teacher Relationship Specialty Start Date End Date Zahraa Roca DO [address] [place] [address] PCP - General Family Medicine 07/25/18 Christian Soria FNP [address] [place] [address] Nurse Practitioner Family Medicine 06/24/23 documented as of this encounter
--- OUTSIDE RECORDS SUMMARY | 2024-08-15 08:14 | XMS_ITS | Encounter Summary ---
Author Organization [employer] Address [address] [place] [address] 7 [place] [address] Care Team Providers Care Education Counselor Name Role Phone Zahraa Roca DO Primary Care Provider + [phone] Christian Soria Unavailable Unavailable Reason for Visit * Reason Onset Date Comments Appointment Request 06/19/2024 Encounter Details Date Type Department Care Team ([facility] st Contact Info) Description 06/19/2024 Telephone [facility] MEDICINE [address] [place], [place] [phone] Zahraa Roca DO [address] [place], [place] [phone] Appointment Request Social History Tobacco Use Types Packs/Day Years [...] encounter Miscellaneous Notes * Telephone Encounter - Lisa Pressley - 06/19/2024 9:45 AM EST Tc from pt calling to r/s today derm appt . States was at the hospital last night and was diagnoseswith pneumonia. documented in this encounter Plan of Treatment Upcoming Encounters Date Type Department Care Team (Late st Contact Info) Description 08/28/2024 11:30 AM EST Office Visit [facility] CHC MED & PEDS [address] [place] [address] Claus Escobar MD [address] [place] [address] 08/29/2024 10:00 AM EST Clinical Support [facility] MEDICINE [address] [place] [address] Mere Rios, RN documented as of this encounter Visit Diagnoses Not on filedocumented in this encounter Additional Health Concerns Assessment Noted Time PHQ-9 Depression Total Score: 0 11/28/19 24 11:23 AM EDT documented as of this encounter Care Teams Education Counselor Relationship Specialty Start Date End Date Zahraa Roca DO [address] [place] [address] PCP - General Family Medicine 07/25/18 Christian Soria FNP [address] [place] [phone] Nurse Practitioner Family Medicine 06/24/23 documented as of this encounter
--- OUTSIDE RECORDS SUMMARY | 2024-08-15 08:14 | XMS_ITS | Encounter Summary ---
Author Organization [employer] Address [address] [facility] 7t [place] [address] Care Team Providers Care Duplicating Machine Mechanic Name Role Phone Abelino Zahraa Primary Care Provider + [phone] Christian Soria Unavailable Unavailable Encounter Details Date Type Department Care Team (Late st Contact Info) Description 07/23/2024 Orders Only GENERIC EXTERNAL DATA DEPARTMENT Provider, Generic External Data Social History Tobacco Use Types Packs/Day Years [...] is your housing situation today? I have valentinrosa maria beaulieu 03/12/[address] you [...] Upcoming Encounters Date Type Department Care Team ([facility] st Contact Info) Description 08/28/2024 11:30 AM EST Office Visit [facility] [address] [place] [address] Claus Escobar MD [address] [place] [address] 08/29/2024 10:00 AM EST Clinical Support [facility] [address] [place], [place] [phone] Mere Rios RN documented as of this encounter Procedures Procedure Name Priority Date/Time Associated Diagnosis Comments US VENOUS DUPLEX LE RT Routine 5:16 PM EST SARS COV2/INFLUENZA A/B AND RSV RNA QL NAAT Routine 07/23/2024 12:47 PM EST CBC WITH AUTO DIFFERENTIAL Routine 07/23/2024 12:47 PM EST PROTHROMBIN TIME-INR Routine 07/23/2024 12:47 PM EST MAGNESIUM Routine 07/23/2024 12:47 PM EST LIPASE Routine 07/23/2024 12:47 PM EST COMPREHENSIVE METABOLIC PANEL Routine 07/23/2024 12:47 PM EST documented in this encounter Results * US VENOUS DUPLEX LE RT (07/23/2024 5:16 PM EST) Anatomical Region Laterality Modality Abdomen Ultrasound 07/23/2024 5:16 PM EST Narrative 07/23/2024 5:17 PM EST ? [facility] ?[address] ?[place] [address] ? Ultrasound Report ? Signed ? Patient: Cristobal Ceron ?MR#: [id number] ?? 54 ? : 1970 ?Acct:[id number] ? Age/Sex: 54 / M ?ADM Date: 07/23/24 ? Loc: HO.ED ? Attending Dr: ? Ordering Physician: Raul Almaguer ?? Date of Service: 07/23/24 ?? Procedure(s): US venous duplex LE RT ?? Accession Number(s): [id number] ? cc: Zahraa Roca DO; Raul Almaguer ? CLINICAL HISTORY: pain ? Venous duplex ultrasound right lower extremity ? COMPARISON: None ? FINDINGS: ?? The visualized deep veins are fully compressible with normal Doppler color ?? flow and spectral tracings. ?? No popliteal cyst. ? IMPRESSION: ?? 1. Negative for right lower extremity deep vein thrombosis. ? This document has been electronically signed by: Gelacio Leone MD on ?? 07/23/2024 17:16:04 ? Dictated By: ?Gelacio Leone MD ? Signed By: ?<Electronically signed by Gelacio Leone MD in OV> ?07/23/24 1717 ? DD/ 1716 ? TD/TT: 07/23/24 1716 ? Consolidator: ? Procedure Note Denys Ervin - 07/23/[address] [address] Ultrasound Report Signed Patient: Cristobal Ceron R#: [id number] 54 : 1970Acct:[id number] Age/Sex: 54 / MADM Date: 07/23/24 Loc: HO.ED Attending Dr: Ordering Physician: Raul Almaguer Date of Service: 07/23/24 Procedure(s): US venous duplex LE RT Accession Number(s): [id number] cc: Zahraa Roca DO; Raul Almaguer CLINICAL HISTORY: pain Venous duplex ultrasound right lower extremity COMPARISON: None FINDINGS: The visualized deep veins are fully compressible with normal Doppler color flow and spectral tracings. No popliteal cyst. IMPRESSION: 1. Negative for right lower extremity deep vein thrombosis. This document has been electronically signed by: Gelacoi Leone MD on 07/23/2024 17:16:04 Dictated By: Gelacio Leone MD Signed By: <Electronically signed by Gelacio Leone MD in OV> 07/23/241716 DD/ 15 TD/TT: 07/23/241715 Consolidator: [facility] External Provider IMG US PROCEDURES Final Result * SARS-CoV-2 RNA, Influenza A/B, and RSV RNA, Ql NAAT (07/23/2024 12:47 PM EST) Influenza A PCR NEGATIVE Negative [facility] Influenza B PCR NEGATIVE Negative [facility] Resp Syncy Virus RNA Qual PCR NEGATIVE Negative [facility] SARS COV2 PCR NEGATIVE Negative [facility] Comment:All test results mus t be correlated with clinical findings.Negative results do not preclude SARS-CoV2, influenza Avirus, influenza B virus and/or RSV infectionand should not be used as the sole basis for treatment orother patient management decisions. Negative results must becombined with clinical observations, patient history, andepidemiological information.This test has not been evaluated for monitoring treatment ofinfection.This test has been authorized by the FDA under an EmergencyUse Authorization (EUA) for use by authorized laboratories.Testing performed on the [employer] GeneXpert utilizingreal-time RT-PCR.All SARS CoV2 and positive influenza A/B results arereported to [facility]. 07/23/2024 12:4 7 PM EST 07/23/2024 12:55 PM EST Generic External Data Provider LAB MICROBIOLOGY - GENERAL ORDERABLES Final Result Performing Organization Address City/[facility]/ZIP Co de Phone Number [facility] [address] [place] [address] [phone] * Lipase (07/23/2024 12:47 PM EST) Pathologist [facility] Lipase 12 8 - 78 U/L [facility] 07/23/2024 12:4 7 PM EST 07/23/2024 12:55 PM EST Generic External Data Provider LAB BLOOD ORDERAB LES Final Result Performing Organization Address [facility]/ZIP Co de Phone Number [facility] [address] [place] [phone] * Magnesium (07/23/2024 12:47 PM EST) [facility] Magnesium 1.8 1.6 - 2.6 mg/dL [facility] 07/23/2024 12:4 7 PM EST 07/23/2024 12:55 PM EST Generic External Data Provider LAB BLOOD ORDERAB LES Final Result Performing Organization Address [facility] Co de Phone Number [facility] [address] [place] [phone] * (ABNORMAL) Comprehensive Metabolic Panel (07/23/2024 12:47 PM EST) [facility] Sodium 141 135 - 145 mmol/L [facility] Potassium 3.8 3.3 - 5.1 mmol/L [facility] Chloride 106 96 - 108 mmol/L [facility] Carbon Dioxide 29 22 - 29 mmol/L [facility] Anion Gap 10(L) 12 - 20 [facility] Urea Nitrogen (BUN) 14 9 - 16 mg/dL [facility] Creatinine, Serum 0.83 0.5 - 1.4 mg/dL [facility] Creatinine Clr Calc Pharmacy 102.6 [facility] Comment:eGFR (calculated fro m the MDRD study equation) and eCrCl(calculated from the Cockcroft-Gault equation) are based ondifferent parameters and may not yield comparable results.If eCrCl result is absurd, please check patient'sheight/weight. Estimated Glomerular Filt Rate >60 [facility] Comment:Chronic Kidney Disea se: Estimated GFR < 60 mL/min/[id number] Kidney Disease: Estimated GFR < 15 mL/min/1.73m2 Glucose 94 60 - 115 mg/dL [facility] Calcium 8.5 8.4 - 10.2 mg/dL [facility] Bilirubin, Total 0.5 0.0 - 1.0 mg/dL [facility] Aspartate Amino Transferase 21 5 - 37 U/L [facility] Alanine Aminotransferase 14 0 - 40 U/L [facility] Total Protein 6.8 6.5 - 8.0 g/dL [facility] Albumin Level 4.2 3.5 - 5.0 g/dL [facility] Alkaline Phosphatase 116 39 - 117 U/L [facility] 07/23/2024 12:4 7 PM EST 07/23/2024 12:55 PM EST us Generic External Data Provider LAB BLOOD ORDERAB LES Final Result Performing Organization Address City/State/[facility] Co de Phone Number [facility] [address] [place] [phone] * (ABNORMAL) Prothrombin Time-INR (07/23/2024 12:47 PM EST) Prothrombin Time 13.9(H) 10.9 - 12.4 SEC [facility] INTERNATIONAL NORM RATIO 1.2(H) 0.9 - 1.1 [facility] Comment:INTERNATIONAL NORMAL IZED RATIO (INR) REFERENCE RANGES Reference RangeFor patients not on anticoagulant therapy: 0.9 - 1.1INR ranges for oral anticoagulanttherapy:For prevention and treatment of venous thrombosis and pulmonary embolism: 2.0 - 3.0For acute myocardial infarction with aspirin therapy: 2.0 - 3.0For acute myocardial infarction without aspirin therapy: 3.0 - 4.0For patients with mechanical prosthetic heart valves: 2.5 - 3.5 07/23/2024 12:4 7 PM EST 07/23/2024 12:55 PM EST us Generic External Data Provider LAB BLOOD ORDERAB LES Final Result [facility] [address] [place] [phone] [phone] * (ABNORMAL) CBC auto differential (07/23/2024 12:47 PM EST) White Blood Count 4.9 4.8 - 10.8 X10*3/uL [facility] Red Blood Count 4.20(L) 4.60 - 5.80 X10*6/uL [facility] Hemoglobin 12.5(L) 14.0 - 18.0 g/dl [facility] Hematocrit 37.2(L) 42.0 - 52.0 % [facility] Mean Corpuscular Volume 88.6 80.0 - 98.0 fL [facility] Mean Corpuscular Hemoglobin 29.8 27.0 - 33.0 pg [facility] Mean Corpuscular HGB Conc 33.6 31.0 - 36.0 g/dl [facility] Red Cell Distribution Width 12.4 11.0 - 16.0 % [facility] Platelet Count 178 160 - 400 X10*3/uL [facility] Mean Platelet Volume 9.9 9.4 - 12.4 fL [facility] Neutrophils Percent Auto 65.7 45 - 73 % [facility] Imm Gran Pct Auto 0.4 0.0 - 0.4 % [facility] Lymphocytes Percent Auto 26.1 20 - 40 % [facility] Monocytes Percent Auto 5.8 2 - 11 % [facility] Eosinophils Percent Auto 1.4 0 - 4 % [facility] Basophils Percent Auto 0.6 0 - 2 % [facility] NRBC Pct Auto 0.0 0.0 - 0.2 /100WBC [facility] Neutrophils Absolute Auto 3.2 2.0 - 8.3 x10*3/uL [facility] Imm Gran Abs Auto 0.02 0.00 - 0.03 X10*3/uL [facility] Lymphocytes Absolute Auto 1.3 1.2 - 4.9 X10*3/uL [facility] Monocytes Absolute Auto 0.3 0.1 - 1.2 X10*3/uL [facility] Eosinophils Absolute Auto 0.1 0.0 - 0.4 X10*3/uL [facility] Basophils Absolute Auto 0.0 0.0 - 0.2 X10*3/uL [facility] NRBC Abs Auto 0.000 0.0 - 0.012 X10*3/uL [facility] 07/23/2024 12:4 7 PM EST 07/23/2024 12:55 PM EST us Generic External Data Provider LAB BLOOD ORDERAB LES Final Result Performing Organization Address City/State/[facility] Co de Phone Number [facility] [address] [place] [phone] documented in this encounter Visit Diagnoses Not on filedocumented in this encounter Additional Health Concerns Assessment Noted Time PHQ-9 Depression Total Score: 0 11/28/19 24 11:23 AM EDT documented as of this encounter Care Teams Duplicating Machine Mechanic Relationship Specialty Start Date End Date Zahraa Roca DO [address] [place] [address] PCP - General Family Medicine 07/25/18 Christian Soria FNP [address] [place] [address] Nurse Practitioner Family Medicine 06/24/23 documented as of this encounter
--- OUTSIDE RECORDS SUMMARY | 2024-08-15 08:14 | XMS_ITS | Encounter Summary ---
Author Organization [employer] Address [address] [place] [address] 7t [place] [address] Care Team Providers Care Topographical Drafter Name Role Phone Abelino Zahraa CANTOR Primary Care Provider + [phone] Christian Soria Unavailable Unavailable Encounter Details Date Type Department Care Team (Late st Contact Info) Description 04/17/2024 Telephone [facility] [address] [place] [address] Lore Vargas DDS [address] [place] [address] Social History Tobacco Use Types Packs/Day Years [...] encounter Miscellaneous Notes * Telephone Encounter - Danica George - 04/17/2024 9:15 AM EDT Good morning doctor , Patient has an coming apt with Dr avila for extraction.patient asking if you can send him antibiotics to his pharmacy thank you . documented in this encounter Plan of Treatment Upcoming Encounters Date Type Department Care Team (Late st Contact Info) Description 08/28/2024 11:30 AM EST Office Visit [facility] [address] [place] [address] Claus Escobar MD [address] [place] [address] 08/29/2024 10:00 AM EST Clinical Support [facility] MEDICINE [address] [place] [address] Mere Rios, RN documented as of this encounter Visit Diagnoses Not on filedocumented in this encounter Additional Health Concerns Assessment Noted Time PHQ-9 Depression Total Score: 0 11/28/19 11:23 AM EDT documented as of this encounter Care Teams Topographical Drafter Relationship Specialty Start Date End Date Zahraa Roca DO [address] [place] [address] PCP - General Family Medicine 07/25/18 Christian Soria FNP [address] [place] [address] Nurse Practitioner Family Medicine 06/24/23 documented as of this encounter
--- OUTSIDE RECORDS SUMMARY | 2024-08-15 08:14 | XMS_ITS | Encounter Summary ---
Author Organization [employer] Address [address] [place] [address] 7 [place] [address] Care Team Providers Care Warehouse Handler Name Role Phone Zahraa Roca DO Primary Care Provider + [phone] Christian Soria Unavailable Unavailable Reason for Visit * Reason Onset Date Comments Appointment Request 08/03/2024 Encounter Details Date Type Department Care Team (Late st Contact Info) Description 08/03/[address] [facility] [address] [place], [place] [phone] Zahraa Roca DO [address] [place], [place] [phone] Appointment Request Social History Tobacco Use Types [...] encounter Miscellaneous Notes * Telephone Encounter - Miya Mcleod - 08/03/2024 3:57 PM EST Tc from pt requesting to r/s today's missed appointment with dermatology. Contact pt at [phone] documented in this encounter Plan of Treatment Upcoming Encounters Date Type Department Care Team (Late st Contact Info) Description 08/28/2024 11:30 AM EST Office Visit [facility] [address] [place] [address] Claus Escobar MD [address] [place] [address] 08/29/2024 10:00 AM EST Clinical Support [facility] [address] [place] [address] Mere Rios, RN documented as of this encounter Visit Diagnoses Not on filedocumented in this encounter Additional Health Concerns Assessment Noted Time PHQ-9 Depression Total Score: 0 11/28/19 24 11:23 AM EDT documented as of this encounter Care Teams Warehouse Handler Relationship Specialty Start Date End Date Zahraa Roca DO [address] [place] [address] PCP - General Family Medicine 07/25/18 Christian Soria FNP [address] [place] [address] Nurse Practitioner Family Medicine 06/24/23 documented as of this encounter
--- OUTSIDE RECORDS SUMMARY | 2024-08-15 08:14 | XMS_ITS | Encounter Summary ---
Author Organization [employer] Address [address] [place] [address] 7 [place] [address] Care Team Providers Care Pearl Glue Operator Name Role Phone Zahraa Roca DO Primary Care Provider + [phone] Christian Soria Unavailable Unavailable Reason for Visit * Reason Onset Date Comments callback requested 07/16/2024 Encounter Details Date Type Department Care Team ([facility] st Contact Info) Description 07/16/2024 Telephone [facility] [address] [place], [place] [phone] Zahraa Roca DO [address] [place], [place] [phone] callback requested Social History Tobacco Use Types Packs/Day Years [...] encounter Miscellaneous Notes * Telephone Encounter - Mere Rios RN - 07/16/2024 1:44 PM EST Return TC to patient, clarified patients date he last picked up his Clonazepam versus date his Clonazepam RX was written. Pt aware his refill is due 07/23/24. * Telephone Encounter - Elan Altamirano - 07/16/2024 1:29 PM EST Tc from pt requesting a call back in regards medication , pt insist for a direct line as I inform pt we don't transfer calls and he verbalized he understands but will like Mere Rios to give him a call. [phone] documented in this encounter Plan of Treatment Upcoming Encounters Date Type Department Care Team (Late st Contact Info) Description 08/28/2024 11:30 AM EST Office Visit [facility] PEDS [address] [place] [address] Claus Escobar MD [address] [place] [phone] 08/29/2024 10:00 AM EST Clinical Support [facility] [address] [place] [address] Mere Rios, RN documented as of this encounter Visit Diagnoses Not on filedocumented in this encounter Additional Health Concerns Assessment Noted Time PHQ-9 Depression Total Score: 0 11/28/19 24 11:23 AM EDT documented as of this encounter Care Teams Pearl Glue Operator Relationship Specialty Start Date End Date Zahraa Roca DO [address] [place] [address] PCP - General Family Medicine 07/25/18 Christian Soria FNP [address] [place] [address] Nurse Practitioner Family Medicine 06/24/23 documented as of this encounter
--- OUTSIDE RECORDS SUMMARY | 2024-08-15 08:14 | XMS_ITS | Encounter Summary ---
Author Organization [employer] Address [address] [place] [address] 7 [place] [address] Care Team Providers Care Human Resources Communications Manager Name Role Phone Zahraa Roca DO Primary Care Provider + [phone] Christian Soira Unavailable Unavailable Reason for Visit * Reason Onset Date Comments PT-1 03/15/2024 Encounter Details Date Type Department Care Team (Late st Contact Info) Description 03/15/2024 Telephone [facility] [address] [place], [place] [phone] Zahraa Roca DO [address] [place], [place] [phone] PT-1 Social History Tobacco Use Types Packs/Day [...] encounter Miscellaneous Notes * Telephone Encounter - John Lane - 03/15/2024 8:58 AM EDT Patient calling requesting PT1 Home Address verified: Y/N: Yes Provider name or facility name: [facility] Address: [address] [place] [address] Escort needed: Y/N: No Do you have a wheelchair: Y/N: No If yes- Manual or electric: no Visits: 3 documented in this encounter Plan of Treatment Upcoming Encounters Date Type Department Care Team (Late st Contact Info) Description 08/28/2024 11:30 AM EST Office Visit [facility] [address] [place] [address] Claus Escobar MD [address] [place] [address] 08/29/2024 10:00 AM EST Clinical Support [facility] [address] [place] [address] Mere Rios RN documented as of this encounter Visit Diagnoses Not on filedocumented in this encounter Additional Health Concerns Assessment Noted Time PHQ-9 Depression Total Score: 0 11/28/19 24 11:23 AM EDT documented as of this encounter Care Teams Human Resources Communications Manager Relationship Specialty Start Date End Date Zahraa Roca DO [address] [place] [address] PCP - General Family Medicine 07/25/18 Christian Soria FNP [address] [place] [address] Nurse Practitioner Family Medicine 06/24/23 documented as of this encounter
--- OUTSIDE RECORDS SUMMARY | 2024-08-15 08:14 | XMS_ITS | Encounter Summary ---
Author Organization [employer] Address [address] [place] [address] 7 [place] [address] Care Team Providers Care Rope Silica Machine Operator Name Role Phone Zahraa Roca DO Primary Care Provider + [phone] Christian Soria Unavailable Unavailable Reason for Visit * Reason Onset Date Comments Appt question 08/09/2024 Encounter Details Date Type Department Care Team (Late st Contact Info) Description 08/09/2024 Telephone [facility] [address] [place], [place] [phone] Zahraa Roca DO [address] [place], [place] [phone] Appt question Social History Tobacco Use Types Packs/Day Years [...] encounter Miscellaneous Notes * Telephone Encounter - Gabbi Arreola - 08/09/2024 10:38 AM EST Tc from pt in regards 08/28 DERM appt. Pt states missed first appt for biopsy and wants to be sure fe appt its for that. Any questions [phone] documented in this encounter Plan of Treatment Upcoming Encounters Date Type Department Care Team ([facility] st Contact Info) Description 08/28/2024 11:30 AM EST Office Visit [facility] [address] [place] [address] Claus Escobar MD [address] [place] [address] 08/29/2024 10:00 AM EST Clinical Support [facility] [address] [place] [address] Mere Rios RN documented as of this encounter Visit Diagnoses Not on filedocumented in this encounter Additional Health Concerns Assessment Noted Time PHQ-9 Depression Total Score: 0 11/28/19 24 11:23 AM EDT documented as of this encounter Care Teams Rope Silica Machine Operator Relationship Specialty Start Date End Date Zahraa Roca DO [address] [place] [address] PCP - General Family Medicine 07/25/18 Christian Soria FNP [address] [place] [address] Nurse Practitioner Family Medicine 06/24/23 documented as of this encounter
--- OUTSIDE RECORDS SUMMARY | 2024-08-15 08:14 | XMS_ITS | Clinical Summary ---
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 [facility] [address] [facility], [place] [address] [facility] [address] [facility] [facility], ([address]) [place] [address] from Last 3 Months or Most Recently Relevant to Health Maintenance Insurance [facility] STANDARD MEDICARE [place] AD[place] Care Teams Space Planner Relationship Specialty Start Date End Date Zahraa Roca DO [address] [place] [address] PCP - General Family Medicine 07/25/18 Christian Soria FNP [address] [place] [address] Nurse Practitioner Family Medicine 06/24/23
--- OUTSIDE RECORDS SUMMARY | 2024-08-15 08:14 | XMS_ITS | Encounter Summary ---
Author Organization [employer] Address [address] [place] [address] 7 [place] [address] Care Team Providers Care Migration Agent Name Role Phone Zahraa Roca DO Primary Care Provider + [phone] Christian Soria Unavailable Unavailable Reason for Visit * Reason Onset Date Comments PT-1 07/13/2024 Encounter Details Date Type Department Care Team (Late st Contact Info) Description 07/13/2024 Telephone [facility] [address] [place], [place] [phone] Zahraa Roca DO [address] [place], [place] [phone] PT-1 Social History Tobacco Use Types Packs/Day [...] encounter Miscellaneous Notes * Telephone Encounter - Go Vasquez - 07/13/2024 11:14 AM EST Patient calling requesting PT1 Home Address verified: Y/N: Yes Provider name or facility name: [address] Escort needed: Y/N: No Do you have a wheelchair: Y/N: No If yes- Manual or electric: Visits: (3x Monthly) Patient calling requesting PT1 Home Address verified: Y/N: Yes Provider name or facility name: [address] Escort needed: Y/N: No Do you have a wheelchair: Y/N: No If yes- Manual or electric: Visits: (3x Monthly) Patient calling requesting PT1 Home Address verified: Y/N: Yes Provider name or facility name: [address] Escort needed: Y/N: No Do you have a wheelchair: Y/N: No If yes- Manual or electric: Visits: (3x Monthly) Patient calling requesting PT1 Home Address verified: Y/N: Yes Provider name or facility name: [address] Escort needed: Y/N: No Do you have a wheelchair: Y/N: No If yes- Manual or electric: Visits: (3x monthly) Patient calling requesting PT1 Home Address verified: Y/N: Yes Provider name or facility name: [address] [place] [address] Escort needed: Y/N: No Do you have a wheelchair: Y/N: No If yes- Manual or electric: Visits: (3x Monthly) documented in this encounter Plan of Treatment Upcoming Encounters Date Type Department Care Team (Late st Contact Info) Description 08/28/2024 11:30 AM EST Office Visit [facility] [address] [place] [address] Claus Escobar MD [address] [place] [address] 08/29/2024 10:00 AM EST Clinical Support [facility] [address] [place] [address] Mere Rios, HENRIK documented as of this encounter Visit Diagnoses Not on filedocumented in this encounter Additional Health Concerns Assessment Noted Time PHQ-9 Depression Total Score: 0 11/28/19 24 11:23 AM EDT documented as of this encounter Care Teams Migration Agent Relationship Specialty Start Date End Date Zahraa Roca DO [address] [place] [address] PCP - General Family Medicine 07/25/18 Christian Soria FNP [address] [place] [address] Nurse Practitioner Family Medicine 06/24/23 documented as of this encounter
--- OUTSIDE RECORDS SUMMARY | 2024-08-15 08:14 | XMS_ITS | Encounter Summary ---
Author Organization [employer] Address [address] [facility] 7t [place] [address] Care Team Providers Care Manager Fund Name Role Phone Zahraa Roca DO Primary Care Provider + [phone] Christian Soria Unavailable Unavailable Encounter Details Date Type Department Care Team ([facility] st Contact Info) Description 08/08/2024 Telephone [facility] [address] [place], [place] [phone] Zahraa Roca DO [address] [place], [place] [phone] Social History Tobacco Use Types Packs/Day Years [...] encounter Miscellaneous Notes * Telephone Encounter - Augusta Kaur RN - 08/08/2024 11:48 AM EST TC placed to pt but no answer and VM box full and unable to receive any messages. Will postpone this message for another attempt * Telephone Encounter - Lisa Pressley - 08/08/2024 11:08 AM EST TC from pt requesting status on autopsy order before coming to next derm appt. Yard Switch Operator was a little confused of pt request. Please call pt to clarify. documented in this encounter Plan of Treatment Upcoming Encounters Date Type Department Care Team (Late st Contact Info) Description 08/28/2024 11:30 AM EST Office Visit [facility] PEDS [address] [place] [address] Claus Escobar MD [address] [place] [address] 08/29/2024 10:00 AM EST Clinical Support [facility] [address] [place] [address] Mere Rios, RN documented as of this encounter Visit Diagnoses Not on filedocumented in this encounter Additional Health Concerns Assessment Noted Time PHQ-9 Depression Total Score: 0 11/28/19 24 11:23 AM EDT documented as of this encounter Care Teams Manager Fund Relationship Specialty Start Date End Date Zahraa Roca DO [address] [place] [address] PCP - General Family Medicine 07/25/18 Christian Soria FNP [address] [place] [address] Nurse Practitioner Family Medicine 06/24/23 documented as of this encounter
--- OUTSIDE RECORDS SUMMARY | 2024-08-15 08:14 | XMS_ITS | Encounter Summary ---
Author Organization [employer] Address [address] [place] [address] 7 [place] [address] Care Team Providers Care Salesperson Furs Name Role Phone Zahraa Roca DO Primary Care Provider +1 [phone] Christian Soria Unavailable Unavailable Reason for Visit * Reason Onset Date Comments Med Refill 07/16/2024 Schedule [facility]ISHED [facility] EXAMINER Initial appt 07/16/2024 Encounter Details Date Type Department Care Team (Late st Contact Info) Description 07/16/2024 Refill [facility] [address] [place], [place] [phone] Zahraa Roca DO [address] [place], [place] [phone] Anxiety Social History Tobacco Use Types Packs/Day Years [...] Encounter - Mere Rios RN - 07/16/2024 10:17 AM EST Return TC to patient, no answer. Unable to leave , mailbox is full. * Telephone Encounter - Miya Mcleod - 07/16/2024 9:52 AM EST Tc from pt requesting to speak to FINISHED CLOTH EXAMINER nurse regarding medication clonazePAM (KlonoPIN) 1 MG tablet * Telephone Encounter - Mere Rios RN - 07/16/2024 9:18 AM EST TC to patient, scheduled for FINISHED CLOTH EXAMINER Initial appt 08/29/24 @ 10am * Telephone Encounter - Gabbi Arreola - 07/16/2024 9:08 AM EST TC from pt requesting medication refill. Medications needing refill : clonazePAM (KlonoPIN) 1 MG tablet To be sent to: [facility] - [place], [place] - [address] [place] [address] documented in this encounter Plan of Treatment Upcoming Encounters Date Type Department Care Team (Late st Contact Info) Description 08/28/2024 11:30 AM EST Office Visit [facility] & [facility]EDS [address] [place] [address] Claus Escobar MD [address] [place], [place] [phone] 08/29/2024 10:00 AM EST Clinical Support [facility] [address] [place] [address] Mere Rios RN documented as of this encounter Visit Diagnoses Diagnosis Anxiety Anxiety state, unspecified documented in this encounter Additional Health Concerns Assessment Noted Time PHQ-9 Depression Total Score: 0 11/28/19 24 11:23 AM EDT documented as of this encounter Care Teams Salesperson Furs Relationship Specialty Start Date End Date Zahraa Roca DO [address] [place] [address] PCP - General Family Medicine 07/25/18 Christian Soria FNP [address] [place] [address] Nurse Practitioner Family Medicine 06/24/23 documented as of this encounter
--- OUTSIDE RECORDS SUMMARY | 2024-08-15 08:14 | XMS_ITS | Encounter Summary ---
Author Organization [employer] Address [address] [place] [address] 7 [place] [address] Care Team Providers Care Prospecting Observer Name Role Phone Zahraa Roca DO Primary Care Provider + [phone] Christian Soria Unavailable Unavailable Reason for Visit * Reason Comments Transition Of Care (Tcm) Encounter Details Date Type Department Care Team ([facility] st Contact Info) Description 07/24/2024 Patient Outreach [facility] & PEDS [address] [place] [address] Zahraa Roac DO [address] [place] [address] Transition Of Care (Tcm) Social History Tobacco Use Types Packs/Day Years [...] as of this encounter Progress Notes * Milana Tierney RN - 07/24/2024 12:50 PM EST 07/24/24 1250 Hospital Discharges and Admission for [facility] Type of Visit Emergency Department Date of Admission/Visit 07/23/24 Date of Discharge 07/23/24 Facility [facility] Diagnosis R foot pain Disposition Discharged Home * Yanira Payne RN - 07/24/2024 12:50 PM EST Transition of Care Note Cristobal is going through a recent transition of care. Hospital Discharges and Admission for [facility] Type of Visit: Emergency Department Date of Admission/Visit: 07/23/24 Date of Discharge: 07/23/24 Facility: [facility] Diagnosis: Peripheral Vascular Disease and Venous insufficiency Disposition: Discharged Home Follow-Up Actions Follow-Up Needed: Specialist appointment Follow-Up Outcome: No Answer/No VM (VM full) Initial Contact Date: 07/26/24 The full discharge summary is as scanned document. Recent Visits Date Type Provider Dept 06/06/24 Office Visit Zahraa Roca DO [facility] Medicine 03/12/24 Office Visit Zahraa Roca DO [facility] Medicine 10/19/23 Office Visit Zahraa Roca DO [facility] Medicine 07/07/23 Office Visit Zahraa Roca DO [facility] Medicine Showing recent visits within past 540 days with a meds authorizing provider and meeting all other requirements Future Appointments Date Type Provider Dept 08/03/24 Appointment Jill Boudreaux MD [facility] Medicine 08/28/24 Appointment Claus Escobar MD [facility] & P[facility] Showing future appointments within next 150 days with a meds authorizing provider and meeting all other requirements TC placed to patient [phone] to status check. Patient presented to [facility] ED on 07/23/24 d/t burning on R foot x2 days and SOB x1 month (seen at [facility] previously for SOB). Per [facility] ED: Your evaluation has shown no signs of medical conditions requiring emergent intervention at this time. I recommend that you follow up with your primary care provider and vascular surgeon for furtherevaluation. Toradol has been sent to your pharmacy for you to take as needed for pain. RN called patient to status check however patient did not answer. RN unable to leave as VM is full. Patient to f/u PRN. documented in this encounter Plan of Treatment Upcoming Encounters Date Type Department Care Team (Late st Contact Info) Description 08/28/2024 11:30 AM EST Office Visit [facility]ED[facility] [address] [place] [address] Claus Escobar MD [address] [place] [address] 08/29/2024 10:00 AM EST Clinical Support [facility] [address] [place] [address] Mere Rios RN documented as of this encounter Visit Diagnoses Not on filedocumented in this encounter Additional Health Concerns Assessment Noted Time PHQ-9 Depression Total Score: 0 11/28/19 24 11:23 AM EDT documented as of this encounter Care Teams Prospecting Observer Relationship Specialty Start Date End Date Zahraa Roca DO [address] [place] [address] PCP - General Family Medicine 07/25/18 Christian Soria FNP [address] [place] [address] Nurse Practitioner Family Medicine 06/24/23 documented as of this encounter
--- OUTSIDE RECORDS SUMMARY | 2024-08-15 08:15 | XMS_ITS | Encounter Summary ---
Author Organization [employer] Address [address] [place] [address] Care Team Providers Care Crane Manager Name Role Phone Zahraa Roca DO Primary Care Provider +[phone] Christian Soria Unavailable Unavailable Encounter Details Date Type Department Care Team (Late st Contact Info) Description 08/31/[address] [address] Zahraa Roca DO [address] [place] [address] Social History Tobacco Use Types Packs/Day Years Used Date Smoking Tobacco: Never Assessed PHQ-2 Answer Date Recorded Patient Health Questionnaire-2 Score 0 08/24/2022 Sex and Gender Information Value Date Recorded Sex Assigned at Male 08/17/2022 10:13 AM EST Legal Sex Male 8:35 PM EDT Gender Identity Male 08/17/2022 10:13 AM EST Sexual Orientation Straight 08/17/2022 10 :13 AM EST documented as of this encounter Plan of Treatment Upcoming Encounters Date Type Department Care Team (Late st Contact Info) Description 08/28/2024 11:30 AM EST Office Visit [facility] & PEDS [address] [place], [place] [phone] Claus Escobar MD [address] [place] [address] 08/29/2024 10:00 AM EST Clinical Support [address] [address] Mere Rios, RN documented as of this encounter Visit Diagnoses Not on filedocumented in this encounter Additional Health Concerns Assessment Noted Time PHQ-9 Depression Total Score: 0 08/24/19 23 2:33 PM EST documented as of this encounter Care Teams Crane Manager Relationship Specialty Start Date End Date Zahraa Roca DO [address] [place] [address] PCP - General Family Medicine 07/25/18 Christian Soria FNP [address] [place] [address] Nurse Practitioner Family Medicine 06/24/23 documented as of this encounter
--- OUTSIDE RECORDS SUMMARY | 2024-08-15 08:15 | XMS_ITS | Encounter Summary ---
Author Organization [employer] Address [address] [place] [address] [place] [address] Care Team Providers Care Duty Officer Name Role Phone SuryaZahraa lee Primary Care Provider + [phone] Christian Soria Unavailable Unavailable Reason for Visit * Reason Comments Med Refill Encounter Details Date Type Department Care Team (Late st Contact Info) Description 12/19/2022 Refill [facility] [address] [place], [place] [phone] Christian Soria FNP Anxiety Social History Tobacco Use Types Packs/Day Years Used Date Smoking Tobacco: Every Day Cigarettes Passive Smoke Exposure: Current Smokeless Tobacco: Current PHQ-2 Answer Date Recorded Patient Health Questionnaire-2 Score 0 08/24/2022 Sex and Gender Information Value Date Recorded Sex Assigned at Male 08/17/2022 10:13 AM EST Legal Sex Male 8:35 PM EDT Gender Identity Male 08/17/2022 10:13 AM EST Sexual Orientation Straight 08/17/2022 10 :13 AM EST COVID-19 Exposure Response Date Recorded In the last 10 days, have yo u been in contact with someone who was confirmed or suspected to have Coronavirus/COVID-19? No / Unsure 11/30/2022 9:47 AM EDT documented as of this encounter Plan of Treatment Upcoming Encounters Date Type Department Care Team (Late st Contact Info) Description 08/28/2024 11:30 AM EST Office Visit [facility] & PEDS [address] [place], [place] [phone] Claus Escobar MD [address] [place] [address] 08/29/2024 10:00 AM EST Clinical Support [facility] [address] [place] [address] Mere Rios, RN documented as of this encounter Visit Diagnoses Diagnosis Anxiety Anxiety state, unspecified documented in this encounter Additional Health Concerns Assessment Noted Time PHQ-9 Depression Total Score: 0 08/24/19 23 2:33 PM EST documented as of this encounter Care Teams Duty Officer Relationship Specialty Start Date End Date Zahraa Roca DO [address] [place] [address] PCP - General Family Medicine 07/25/18 Christian Soria FNP [address] [place] [address] Nurse Practitioner Family Medicine 06/24/23 documented as of this encounter
--- OUTSIDE RECORDS SUMMARY | 2024-08-15 08:15 | XMS_ITS | Encounter Summary ---
Author Organization [employer] Address [address] [place] [address] [place] [address] Care Team Providers Care Reptile Farmer Name Role Phone Zahraa Roca DO Primary Care Provider + [phone] Christian Soria Unavailable Unavailable Encounter Details Date Type Department Care Team (Late Contact Info) Description 08/12/2022 Orders Only [facility] MED & PEDS [address] [place] [address] Zahraa Andino LPN Social History Tobacco Use Types Packs/Day Years Used Date Smoking Tobacco: Never Assessed Sex and Gender Information Value Date Recorded Sex Assigned at Male 08/17/2022 10:13 AM EST Legal Sex Male 8:35 PM EDT Gender Identity Male 08/17/2022 10:13 AM EST Sexual Orientation Straight 08/17/2022 10 :13 AM EST documented as of this encounter Plan of Treatment Upcoming Encounters Date Type Department Care Team (Late Contact Info) Description 08/28/2024 11:30 AM EST Office Visit [facility] MED & PEDS [address] [place] [address] Claus Escobar MD [address] [place] [address] 08/29/2024 10:00 AM EST Clinical Support [facility] [address] [place] [address] Mere Rios RN documented as of this encounter Visit Diagnoses Not on filedocumented in this encounter Care Teams Reptile Farmer Relationship Specialty Start Date End Date Zahraa Roca DO [address] [place] [address] PCP - General Family Medicine 07/25/18 Christian Soria FNP [address] [place] [address] Nurse Practitioner Family Medicine 06/24/23 documented as of this encounter
--- OUTSIDE RECORDS SUMMARY | 2024-08-15 08:15 | XMS_ITS | Encounter Summary ---
Author Organization [employer] Address [address] [place] [address] [address] [place] [address] Care Team Providers Care Pediatric Physical Therapy Assistant Name Role Phone Zahraa Roca DO Primary Care Provider + [phone] Christian Soria Unavailable Unavailable Reason for Visit * Reason Onset Date Comments Med Refill 12/31/2022 Encounter Details Date Type Department Care Team (Late st Contact Info) Description 12/31/2022 Telephone [facility] MEDICINE [address] [place] [address] Zahraa Roca DO [address] [place], [place] [phone] Med Refill Social History Tobacco Use Types Packs/Day Years [...] * Telephone Encounter - Alexa Sheehan - 12/31/2022 10:32 AM EDT Tc from pt requesting medication refill for clonazePAM (KlonoPIN) 1 MG tablet documented in this encounter Plan of Treatment Upcoming Encounters Date Type Department Care Team (Late st Contact Info) Description 08/28/2024 11:30 AM EST Office Visit [facility] MED & PEDS [address] [place], [place] [phone] Claus Escobar MD [address] [place] [address] 08/29/2024 10:00 AM EST Clinical Support [facility] MEDICINE [address] [place] [address] Mere Rios, RN documented as of this encounter Visit Diagnoses Not on filedocumented in this encounter Additional Health Concerns Assessment Noted Time PHQ-9 Depression Total Score: 0 08/24/19 23 2:33 PM EST documented as of this encounter Care Teams Pediatric Physical Therapy Assistant Relationship Specialty Start Date End Date Zahraa Roca DO [address] [place] [address] PCP - General Family Medicine 07/25/18 Christian Soria FNP [address] [place] [address] Nurse Practitioner Family Medicine 06/24/23 documented as of this encounter
--- OUTSIDE RECORDS SUMMARY | 2024-08-15 08:15 | XMS_ITS | Encounter Summary ---
Author Organization [employer] Address [address] [place] [address] [place] [address] Care Team Providers Care Apartment Maintenance Name Role Phone Zahraa Roca DO Primary Care Provider + [phone] Christian Soria Unavailable Unavailable Encounter Details Date Type Department Care Team (Late Contact Info) Description 07/06/2022 Orders Only [facility] MED & PEDS [address] [place] [address] Zahraa Andino LPN Social History Tobacco Use [...] Description 08/28/2024 11:30 AM EST Office Visit [facility] MED & PEDS [address] [place] [address] Claus Escobar MD [address] [place] [address] 08/29/2024 10:00 AM EST Clinical Support [facility] [address] [place] [address] Mere Rios RN documented as of this encounter Visit Diagnoses Not on filedocumented in this encounter Care Teams Apartment Maintenance Relationship Specialty Start Date End Date Zahraa Roca DO [address] [place] [address] PCP - General Family Medicine 07/25/18 Christian Soria FNP [address] [place] [address] Nurse Practitioner Family Medicine 06/24/23 documented as of this encounter
--- OUTSIDE RECORDS SUMMARY | 2024-08-15 08:15 | XMS_ITS | Encounter Summary ---
Author Organization [employer] Address [address] [place] [address] Care Team Providers Care Liquor Blender Name Role Phone YudiZahraa barahona Primary Care Provider + [phone] Christian Soria Unavailable Unavailable Reason for Visit * Reason Comments Med Refill Encounter Details Date Type Department Care Team (Late st Contact Info) Description 12/31/2022 Refill [facility] [address] [place] [address] Christian Soria FNP Anxiety Social History Tobacco [...] 08/28/2024 11:30 AM EST Office Visit [facility] MED & PEDS [address] [place], [place] [phone] Claus Escobar MD 505 [place] [address] 08/29/2024 10:00 AM EST Clinical Support [facility] [address] [place] [address] Mere Rios, HENRIK documented as of this encounter Visit Diagnoses Diagnosis Anxiety Anxiety state, unspecified documented in this encounter Additional Health Concerns Assessment Noted Time PHQ-9 Depression Total Score: 0 08/24/19 23 2:33 PM EST documented as of this encounter Care Teams Liquor Blender Relationship Specialty Start Date End Date Zahraa Roca DO [address] [place] [address] PCP - General Family Medicine 07/25/18 Christian Soria FNP [address] [place] [address] Nurse Practitioner Family Medicine 06/24/23 documented as of this encounter
--- OUTSIDE RECORDS SUMMARY | 2024-08-15 08:15 | XMS_ITS | Encounter Summary ---
Author Organization [employer] Address [address] [place] [address] [facility] [place] [address] Care Team Providers Care Rn Ante Partum Name Role Phone Betzaida Rocafer Primary Care Provider + [phone] Christian Soria Unavailable Unavailable Encounter Details Date Type Department Care Team (Late st Contact Info) Description 10/21/2022 Orders Only [facility] MED & PEDS [address] [place] [address] Zahraa Andino LPN Social History Tobacco Use [...] Description 08/28/2024 11:30 AM EST Office Visit [facility] MED & PEDS [address] [place] [address] Claus Escobar MD 505 [place] [address] 08/29/2024 10:00 AM EST Clinical Support [facility] 230 [place] [address] Mere Rios RN documented as of this encounter Visit Diagnoses Not on filedocumented in this encounter Additional Health Concerns Assessment Noted Time PHQ-9 Depression Total Score: 0 08/24/19 23 2:33 PM EST documented as of this encounter Care Teams Rn Ante Partum Relationship Specialty Start Date End Date Zahraa Roca DO [address] [place] [address] PCP - General Family Medicine 07/25/18 Christian Soria FNP [address] [place] [address] Nurse Practitioner Family Medicine 06/24/23 documented as of this encounter
--- OUTSIDE RECORDS SUMMARY | 2024-08-15 08:15 | XMS_ITS | Encounter Summary ---
Author Organization [employer] Address [address] [place] [address] [facility] [place] [address] Care Team Providers Care Pin Puller Name Role Phone Betzaida Rocafer Primary Care Provider + [phone] Christian Soria Unavailable Unavailable Encounter Details Date Type Department Care Team (Late st Contact Info) Description 09/20/2022 Orders Only [facility] MED & PEDS [address] [place] [address] Zahraa Andino LPN Social History Tobacco Use [...] Description 08/28/2024 11:30 AM EST Office Visit [facility] MED & PEDS [address] [place] [address] Claus Escobar MD 505 [place] [address] 08/29/2024 10:00 AM EST Clinical Support [facility] [address] [place] [address] Mere Rios RN documented as of this encounter Visit Diagnoses Not on filedocumented in this encounter Additional Health Concerns Assessment Noted Time PHQ-9 Depression Total Score: 0 08/24/19 23 2:33 PM EST documented as of this encounter Care Teams Pin Puller Relationship Specialty Start Date End Date Zahraa Roca DO [address] [place] [address] PCP - General Family Medicine 07/25/18 Christian Soria FNP [address] [place] [address] Nurse Practitioner Family Medicine 06/24/23 documented as of this encounter
== END 2024-08-15 08:12 | disposition home or self-care (01) ==
LOC: HO.US 08:11
PROVIDERS: PCP Family Medicine; Visit Provider Physician Assistant Surgical
DX: S50.35 Superficial foreign body of elbow (principal); I83.11 Varicose veins of right lower extremity with inflammation; I83.12 Varicose veins of left lower extremity with inflammation
CPT/HCPCS: 73070; 93970

== ENCOUNTER → 2024-08-15 08:12 | Outpatient (BNV) | payer MEDICARE, MEDICAID, SELFPAY | PROVIDERS: PCP Family Medicine; Visit Provider Radiology Diagnostic Radiology | DX: I83.11 Varicose veins of right lower extremity with inflammation (principal) | CPT/HCPCS: 93970 ==

== ENCOUNTER 2024-08-21 10:31 | Outpatient (AMB) | payer MEDICARE, MEDICAID, SELFPAY ==
--- NOTE | 2024-08-21 10:33 | A.OFFVIS_ITS ---
Intake Visit Reasons: X-ray follow-up Intake Note: Patient here to discuss Rt elbow X-ray results. Reflesher Required: No Accompanied by: Self / Same As Patient Allergies No Known Allergies Allergy (Verified 08/21/24 10:38) HPI Comments Details: Patient presents for follow-up status post right elbow x-ray to rule out any retained foreign bodies. X-ray was negative. In the meantime patient is still has the small elbow lipoma as well as 1 involving the distal volar aspect of his forearm. PFSH Medical History Rash Family history of pseudocholinesterase deficiency Alcohol dependence in remission Hx of substance abuse History of COVID-19 Chronic right hip pain Degenerative disc disease Chronic back pain History of hepatitis C Chronic anemia History of alcohol abuse Anxiety Surgical History (Updated 08/21/24 @ 10:57 by Sergei Christine MD) History of left hip replacement History of total right hip arthroplasty Hx of colonoscopy History of surgery History of right inguinal hernia repair History of laminectomy Family History Mother Osteoarthritis Social History Household Members: None Housing: Apartment Housing Other:: second floor Are you a primary laboratory animal care veterinarian to a significant other at home: No Do you presently have visiting nurse or other home services: No Alcohol intake: never Comment: Pt. refused supervision/ steady walking with crutches. Patient Tobacco Use Status: Current someday Tobacco user Tobacco use type: Cigarette Cigarettes Per Day: 3 Years Smoked: 39 Substance Use Type: Amphetamines and Crack/Cocaine service: No Current occupational status: disabled Physical Exam Extrem Other: Patient was a small 1 x 1 cm lipoma involving the distal forearm near the elbow. He has a 2nd lipoma involving his distal forearm measuring roughly 3 x 2 cm. Assessment & Plan Assessment & Plan (1) Multiple lipomas: Code(s): D17.9 - Benign lipomatous neoplasm, unspecified Category: Surgical Plan As noted above, he would like to have these excised but wishes to do so on a day which is more convenient for him. Arrangements were made for this. He will see me then or p.r.n.. All questions answered Coding Level of Care Code Est Pt Level 4 (94298) Diagnoses Multiple lipomas D17.9
--- OUTSIDE RECORDS SUMMARY | 2024-08-21 11:34 | XMS_ITS | Encounter Summary ---
Author Organization [employer] Address [address] [place] [address] 7 [place] [address] Care Team Providers Care Tie Hacker Name Role Phone Zahraa Roca DO Primary Care Provider + [phone] Christian Soria Unavailable Unavailable Reason for Visit * Reason Onset Date Comments Appointment Request 08/03/2024 Encounter Details Date Type Department Care Team (Late st Contact Info) Description 08/03/2024 Telephone [facility] [address] [place], [place] [phone] Zahraa Roca DO [address] [place], [place] [phone] Appointment Request Social History Tobacco Use Types [...] missed appointment with dermatology. Contact pt at [phone] documented in this encounter Plan of Treatment Upcoming Encounters Date Type Department Care Team (Late st Contact Info) Description 08/28/2024 11:30 AM EST Office Visit [facility] MED & PEDS [address] [place] [address] Claus Escobar MD [address] [place] [address] 08/29/2024 10:00 AM EST Clinical Support [facility] [address] [place] [address] Mere Rios, RN documented as of this encounter Visit Diagnoses Not on filedocumented in this encounter Additional Health Concerns Assessment Noted Time PHQ-9 Depression Total Score: 0 11/28/19 24 11:23 AM EDT documented as of this encounter Care Teams Tie Hacker Relationship Specialty Start Date End Date Zahraa Roca DO [address] [place] [address] PCP - General Family Medicine 07/25/18 Christian Soria FNP [address] [place] [address] Nurse Practitioner Family Medicine 06/24/23 documented as of this encounter
--- OUTSIDE RECORDS SUMMARY | 2024-08-21 11:34 | XMS_ITS | Encounter Summary ---
Author Organization [employer] Address [address] [place] [address] 7 [place] [address] Care Team Providers Care Property Utilization Manager Name Role Phone Zahraa Roca DO Primary Care Provider + [phone] Christian Soria Unavailable Unavailable Reason for Visit * Reason Onset Date Comments PT-1 03/15/2024 Encounter Details Date Type Department Care Team (Late st Contact Info) Description 03/15/2024 Telephone [facility] [address] [place], [place] [phone] Zahraa Roca DO [address] [place], [place] [phone] PT-1 Social History Tobacco Use Types Packs/Day [...] Y/N: Yes Provider name or facility name: [email or web address] Address: [address] [place] [address] Escort needed: Y/N: No Do you have a wheelchair: Y/N: No If yes- Manual or electric: no Visits: 3 documented in this encounter Plan of Treatment Upcoming Encounters Date Type Department Care Team (Late st Contact Info) Description 08/28/2024 11:30 AM EST Office Visit [facility] MED & PEDS [address] [place] [address] Claus Escobar MD [address] [place] [address] 08/29/2024 10:00 AM EST Clinical Support [facility] [address] [place] [address] Mere Rios RN documented as of this encounter Visit Diagnoses Not on filedocumented in this encounter Additional Health Concerns Assessment Noted Time PHQ-9 Depression Total Score: 0 11/28/19 24 11:23 AM EDT documented as of this encounter Care Teams Property Utilization Manager Relationship Specialty Start Date End Date Zahraa Roca DO [address] [place] [address] PCP - General Family Medicine 07/25/18 Christian Soria FNP [address] [place] [address] Nurse Practitioner Family Medicine 06/24/23 documented as of this encounter
--- OUTSIDE RECORDS SUMMARY | 2024-08-21 11:34 | XMS_ITS | Encounter Summary ---
Author Organization [employer] Address [address] [place] [address] 7 [place] [address] Care Team Providers Care Sales And Service Specialist Name Role Phone Zahraa Roca DO Primary Care Provider + [phone] Christian Soria Unavailable Unavailable Reason for Visit * Reason Comments Transition Of Care (Tcm) Encounter Details Date Type Department Care Team ([facility] st Contact Info) Description 07/24/2024 Patient Outreach [facility] MED & PEDS [address] [place] [address] Zahraa Roca DO [address] [place] [address] Transition Of Care (Tcm) Social History Tobacco [...] Admission/Visit 07/23/24 Date of Discharge 07/23/24 Facility [facility] Diagnosis R foot pain Disposition Discharged Home * Yanira Payne RN - 07/24/2024 12:50 PM EST Transition of Care Note Cristobal is going through a recent transition of care. Hospital Discharges and Admission for [facility] Type of Visit: Emergency Department Date of Admission/Visit: 07/23/24 Date of Discharge: 07/23/24 Facility: [facility] Diagnosis: Peripheral Vascular Disease and Venous insufficiency Disposition: Discharged Home Follow-Up Actions Follow-Up Needed: Specialist appointment Follow-Up Outcome: No Answer/No VM (VM full) Initial Contact Date: 07/26/24 The full discharge summary is as scanned document. Recent Visits Date Type Provider Dept 06/06/24 Office Visit Zahraa Roca DO [facility] 03/12/24 Office Visit Zahraa Roca DO [facility] 10/19/23 Office Visit Zahraa Roca DO [facility] 07/07/23 Office Visit Zahraa Roca DO [facility] Medicine Showing recent visits within past 540 days with a meds authorizing provider and meeting all other requirements Future Appointments Date Type Provider Dept 08/03/24 Appointment Jill Boudreaux MD [facility] Medicine 08/28/24 Appointment Claus Escobar MD [facility] Med & Peds Showing future appointments within next 150 days with a meds authorizing provider and meeting all other requirements TC placed to patient [phone] to status check. Patient presented to [facility] ED on 07/23/24 d/t burning on R foot x2 days and SOB x1 month (seen at [facility] previously for SOB). Per [facility] ED: Your evaluation has shown no signs [...] Description 08/28/2024 11:30 AM EST Office Visit [facility] MED & PEDS [address] [place] [address] Claus Escobar MD [address] [place] [address] 08/29/2024 10:00 AM EST Clinical Support [facility] [address] [place] [address] Mere Rios RN documented as of this encounter Visit Diagnoses Not on filedocumented in this encounter Additional Health Concerns Assessment Noted Time PHQ-9 Depression Total Score: 0 11/28/19 24 11:23 AM EDT documented as of this encounter Care Teams Sales And Service Specialist Relationship Specialty Start Date End Date Zahraa Roca DO [address] [place] [address] PCP - General Family Medicine 07/25/18 Christian Soria FNP [address] [place] [address] Nurse Practitioner Family Medicine 06/24/23 documented as of this encounter
--- OUTSIDE RECORDS SUMMARY | 2024-08-21 11:35 | XMS_ITS | Encounter Summary ---
Author Organization [employer] Address [address] [place] [address] 7 [place] [address] Care Team Providers Care District Adviser Name Role Phone Zahraa Roca DO Primary Care Provider + [phone] Christian Soria Unavailable Unavailable Reason for Visit * Reason Onset Date Comments Appointment Request 06/19/2024 Encounter Details Date Type Department Care Team ([facility] st Contact Info) Description 06/19/2024 Telephone [facility] [address] [place], [place] [phone] Zahraa Roca DO [address] [place], [place] [phone] Appointment Request Social History Tobacco Use Types [...] Description 08/28/2024 11:30 AM EST Office Visit [facility] MED & PEDS [address] [place] [address] Claus Escobar MD [address] [place] [address] 08/29/2024 10:00 AM EST Clinical Support [facility] MED[facility]INE [address] [place] [address] Mere Rios, RN documented as of this encounter Visit Diagnoses Not on filedocumented in this encounter Additional Health Concerns Assessment Noted Time PHQ-9 Depression Total Score: 0 11/28/19 24 11:23 AM EDT documented as of this encounter Care Teams District Adviser Relationship Specialty Start Date End Date Zahraa Roca DO [address] [place] [address] PCP - General Family Medicine 07/25/18 Christian Soria FNP [address] [place] [address] Nurse Practitioner Family Medicine 06/24/23 documented as of this encounter
--- OUTSIDE RECORDS SUMMARY | 2024-08-21 11:35 | XMS_ITS | Encounter Summary ---
Author Organization [employer] Address [address] [place] [address] 7 [place] [address] Care Team Providers Care Boiler Fireman Name Role Phone Zahraa Roca DO Primary Care Provider + [phone] Christian Soria Unavailable Unavailable Reason for Visit * Reason Onset Date Comments PT-1 04/17/2024 Encounter Details Date Type Department Care Team (Late st Contact Info) Description 04/17/2024 Telephone [facility] MEDICINE [address] [place], [place] [phone] Zahraa Roca DO [address] [place], [place] [phone] PT-1 Social History Tobacco Use Types Packs/Day [...] Y/N: Yes Provider name or facility name: [facility] Address: [address] [place] [address] Escort needed: Y/N: No Do you have a wheelchair: Y/N: No If yes- Manual or electric: N/A Visits: Twice a month documented in this encounter Plan of Treatment Upcoming Encounters Date Type Department Care Team ([facility] st Contact Info) Description 08/28/2024 11:30 AM EST Office Visit [facility] MED & PEDS [address] [place] [address] Claus Escobar MD [address] [place] [address] 08/29/2024 10:00 AM EST Clinical Support [facility] MEDICINE [address] [place] [phone] Mere Rios, RN documented as of this encounter Visit Diagnoses Not on filedocumented in this encounter Additional Health Concerns Assessment Noted Time PHQ-9 Depression Total Score: 0 11/28/19 24 11:23 AM EDT documented as of this encounter Care Teams Boiler Fireman Relationship Specialty Start Date End Date Zahraa Roca DO [address] [place] [address] PCP - General Family Medicine 07/25/18 Christian Soria FNP [address] [place] [address] Nurse Practitioner Family Medicine 06/24/23 documented as of this encounter
--- OUTSIDE RECORDS SUMMARY | 2024-08-21 11:35 | XMS_ITS | Encounter Summary ---
Author Organization [employer] Address [address] [place] [address] [facility] [place] [address] Care Team Providers Care Cancer Genetics Assistant Name Role Phone Zahraa Roca DO Primary Care Provider + [phone] Christian Soria Unavailable Unavailable Reason for Visit * Reason Onset Date Comments Med Refill 12/31/2022 Encounter Details Date Type Department Care Team (Late st Contact Info) Description 12/31/2022 Telephone [facility] [address] [place] [address] Zahraa Roca DO [address] [place], [place] [phone] Med Refill Social History Tobacco Use Types [...] Description 08/28/2024 11:30 AM EST Office Visit [facility] MED & PEDS [address] [place], [place] [phone] Claus Escobar MD [address] [place] [address] 08/29/2024 10:00 AM EST Clinical Support [facility] [address] [place] [address] Mere Rios, RN documented as of this encounter Visit Diagnoses Not on filedocumented in this encounter Additional Health Concerns Assessment Noted Time PHQ-9 Depression Total Score: 0 08/24/19 23 2:33 PM EST documented as of this encounter Care Teams Cancer Genetics Assistant Relationship Specialty Start Date End Date Zahraa Roca DO [address] [place] [address] PCP - General Family Medicine 07/25/18 Christian Soria FNP [address] [place] [address] Nurse Practitioner Family Medicine 06/24/23 documented as of this encounter
--- OUTSIDE RECORDS SUMMARY | 2024-08-21 11:35 | XMS_ITS | Encounter Summary ---
Author Organization [employer] Address [address] [place] [address] 7t [place] [address] Care Team Providers Care Class B Truck Driver Name Role Phone Abelino Zahraa CANTOR Primary Care Provider + [phone] Christian Soria Unavailable Unavailable Encounter Details Date Type Department Care Team (Late st Contact Info) Description 04/17/[address] [facility] [address] [place] [address] Lore Vargas DDS [address] [place] [address] Social History Tobacco Use Types Packs/Day Years [...] 08/28/2024 11:30 AM EST Office Visit [facility] MED & PEDS [address] [place] [address] Claus Escobar MD [address] [place] [address] 08/29/2024 10:00 AM EST Clinical Support [facility] MEDICINE [address] [place] [address] Mere Rios, RN documented as of this encounter Visit Diagnoses Not on filedocumented in this encounter Additional Health Concerns Assessment Noted Time PHQ-9 Depression Total Score: 0 11/28/19 11:23 AM EDT documented as of this encounter Care Teams Class B Truck Driver Relationship Specialty Start Date End Date Zahraa Roca DO [address] [place] [address] PCP - General Family Medicine 07/25/18 Christian Soria FNP [address] [place] [address] Nurse Practitioner Family Medicine 06/24/23 documented as of this encounter
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
--- OUTSIDE RECORDS SUMMARY | 2024-08-21 11:35 | XMS_ITS | Encounter Summary ---
Author Organization [employer] Address [address] [place] [address] 7 [place] [address] Care Team Providers Care Battery Mechanic Name Role Phone Zahraa Roca DO Primary Care Provider + [phone] Christian Soria Unavailable Unavailable Reason for Visit * Reason Onset Date Comments PT1 01/03/2024 Encounter Details Date Type Department Care Team (Late st Contact Info) Description 01/03/2024 Telephone [facility] MEDICINE [address] [place], [place] [phone] Zahraa Roca DO [address] [place], [place] [phone] PT1 Social History Tobacco Use Types Packs/Day [...] encounter Miscellaneous Notes * Telephone Encounter - Aleax Sheehan - 01/03/2024 11:40 AM EDT Patient calling requesting PT1 Home Address verified: Y/N: Yes Provider name or facility name: [facility] Facility Address: [address] [place] [address] Escort needed: Y/N: No Do you have a wheelchair: Y/N: No If yes- Manual or electric: none Visits: 7 days a week documented in this encounter Plan of Treatment Upcoming Encounters Date Type Department Care Team ([facility] st Contact Info) Description 08/28/2024 11:30 AM EST Office Visit [facility] CHC MED & PEDS [address] [place] [address] lCaus Escobar MD [address] [place] [address] 08/29/2024 10:00 AM EST Clinical Support [facility] MEDICINE [address] [place] [address] Mere Rios, HENRIK documented as of this encounter Visit Diagnoses Not on filedocumented in this encounter Additional Health Concerns Assessment Noted Time PHQ-9 Depression Total Score: 0 11/28/19 24 11:23 AM EDT documented as of this encounter Care Teams Battery Mechanic Relationship Specialty Start Date End Date Zahraa Roca DO [address] [place] [address] PCP - General Family Medicine 07/25/18 Christian Soria FNP [address] [place] [address] Nurse Practitioner Family Medicine 06/24/23 documented as of this encounter
--- OUTSIDE RECORDS SUMMARY | 2024-08-21 11:35 | XMS_ITS | Encounter Summary ---
Author Organization [employer] Address [address] [place] [address] 7 [place] [address] Care Team Providers Care Plan Checker Name Role Phone Zahraa Roca DO Primary Care Provider + [phone] Christian Soria Unavailable Unavailable Reason for Visit * Reason Onset Date Comments Appt question 08/09/2024 Encounter Details Date Type Department Care Team (Late st Contact Info) Description 08/09/2024 Telephone [facility] MEDICINE [address] [place], [place] [phone] Zahraa Roca DO [address] [place], [place] [phone] Appt question Social History Tobacco Use Types [...] fe appt its for that. Any questions [phone] documented in this encounter Plan of Treatment Upcoming Encounters Date Type Department Care Team ([facility] st Contact Info) Description 08/28/2024 11:30 AM EST Office Visit [facility] CHC MED & PEDS [address] [place] [address] Claus Escobar MD 505 [place] [address] 08/29/2024 10:00 AM EST Clinical Support [facility] MEDICINE [address] [place] [address] Mere Rios RN documented as of this encounter Visit Diagnoses Not on filedocumented in this encounter Additional Health Concerns Assessment Noted Time PHQ-9 Depression Total Score: 0 11/28/19 24 11:23 AM EDT documented as of this encounter Care Teams Plan Checker Relationship Specialty Start Date End Date Zahraa Roca DO [address] [place] [address] PCP - General Family Medicine 07/25/18 Christian Soria FNP [address] [place] [address] Nurse Practitioner Family Medicine 06/24/23 documented as of this encounter
--- OUTSIDE RECORDS SUMMARY | 2024-08-21 11:35 | XMS_ITS | Encounter Summary ---
Author Organization [employer] Address [address] [place] [address] [place] [address] Care Team Providers Care Kier Boiler Name Role Phone SuryaZahraa lee Primary Care Provider + [phone] Christian Soria Unavailable Unavailable Reason for Visit * Reason Comments Med Refill Encounter Details Date Type Department Care Team (Late st Contact Info) Description 12/19/2022 Refill [facility] MEDICINE [address] [place], [place] [phone] Christian Soria FNP Anxiety Social History Tobacco [...] Description 08/28/2024 11:30 AM EST Office Visit [facility] CHC MED & PEDS [address] [place], [place] [phone] Claus Escobar MD [address] [place] [address] 08/29/2024 10:00 AM EST Clinical Support [facility] MEDICINE [address] [place] [phone] Mere Rios, RN documented as of this encounter Visit Diagnoses Diagnosis Anxiety Anxiety state, unspecified documented in this encounter Additional Health Concerns Assessment Noted Time PHQ-9 Depression Total Score: 0 08/24/19 23 2:33 PM EST documented as of this encounter Care Teams Kier Boiler Relationship Specialty Start Date End Date Zahraa Roca DO [address] [place] [address] PCP - General Family Medicine 07/25/18 Christian Soria FNP [address] [place] [phone] Nurse Practitioner Family Medicine 06/24/23 documented as of this encounter
--- OUTSIDE RECORDS SUMMARY | 2024-08-21 11:35 | XMS_ITS | Encounter Summary ---
Author Organization [employer] Address [address] [facility] 7t [place] [address] Care Team Providers Care Clammer Name Role Phone Zahraa Roca DO Primary Care Provider + [phone] Christian Soria Unavailable Unavailable Encounter Details Date Type Department Care Team ([facility] st Contact Info) Description 08/08/2024 Telephone [facility] MEDICINE [address] [place], [place] [phone] Zahraa Roca DO [address] [place], [place] [phone] Social History Tobacco Use Types Packs/Day Years [...] order before coming to next derm appt. Business Team Leader was a little confused of pt request. Please call pt to clarify. documented in this encounter Plan of Treatment Upcoming Encounters Date Type Department Care Team (Late st Contact Info) Description 08/28/2024 11:30 AM EST Office Visit [facility] CHC MED & PEDS [address] [place] [address] Claus Escobar MD [address] [place] [address] 08/29/2024 10:00 AM EST Clinical Support [facility] MEDICINE [address] [place] [address] Mree Rios, RN documented as of this encounter Visit Diagnoses Not on filedocumented in this encounter Additional Health Concerns Assessment Noted Time PHQ-9 Depression Total Score: 0 11/28/19 24 11:23 AM EDT documented as of this encounter Care Teams Clammer Relationship Specialty Start Date End Date Zahraa Roca DO [address] [place] [address] PCP - General Family Medicine 07/25/18 Christian Soria FNP [address] [place] [address] Nurse Practitioner Family Medicine 06/24/23 documented as of this encounter
--- OUTSIDE RECORDS SUMMARY | 2024-08-21 11:35 | XMS_ITS | Encounter Summary ---
Author Organization [employer] Address [address] [place] [address] [place] [address] Care Team Providers Care Manuscript Reader Name Role Phone Zahraa Roca DO Primary Care Provider + [phone] Christian Soria Unavailable Unavailable Encounter Details Date Type Department Care Team (Late Contact Info) Description 08/12/2022 Orders Only [facility] MED & PEDS [address] [place] [address] Zahraa Andino LPN Social History Tobacco Use [...] 11:30 AM EST Office Visit [facility] MED & PEDS [address] [place] [address] Claus Escobar MD [address] [place] [address] 08/29/2024 10:00 AM EST Clinical Support [facility] MEDICINE [address] [place] [address] Mere Rios RN documented as of this encounter Visit Diagnoses Not on filedocumented in this encounter Care Teams Manuscript Reader Relationship Specialty Start Date End Date Zahraa Roca DO [address] [place] [address] PCP - General Family Medicine 07/25/18 Christian Soria FNP [address] [place] [address] Nurse Practitioner Family Medicine 06/24/23 documented as of this encounter
--- OUTSIDE RECORDS SUMMARY | 2024-08-21 11:35 | XMS_ITS | Encounter Summary ---
Author Organization [employer] Address [address] [place] [address] [place] [address] Care Team Providers Care Bottom Filler Name Role Phone Zahraa Roca DO Primary Care Provider + [phone] Christian Soria Unavailable Unavailable Encounter Details Date Type Department Care Team (Late Contact Info) Description 07/06/2022 Orders Only [facility] MED & PEDS [address] [place] [address] Zahraa Andino LPN Social History Tobacco Use [...] 08/28/2024 11:30 AM EST Office Visit [facility] MED & PEDS [address] [place] [address] Claus Escobar MD [address] [place] [address] 08/29/2024 10:00 AM EST Clinical Support [facility] MEDICINE [address] [place] [address] Mere Rios RN documented as of this encounter Visit Diagnoses Not on filedocumented in this encounter Care Teams Bottom Filler Relationship Specialty Start Date End Date Zahraa Roca DO [address] [place] [address] PCP - General Family Medicine 07/25/18 Christian Soria FNP [address] [place] [address] Nurse Practitioner Family Medicine 06/24/23 documented as of this encounter
--- OUTSIDE RECORDS SUMMARY | 2024-08-21 11:35 | XMS_ITS | Encounter Summary ---
Author Organization [employer] Address [address] [place] [address] 7 [place] [address] Care Team Providers Care Forest Law And Policy Professor Name Role Phone Zahraa Roca DO Primary Care Provider + [phone] Christian Soria Unavailable Unavailable Reason for Visit * Reason Onset Date Comments PT-1 07/13/2024 Encounter Details Date Type Department Care Team (Late st Contact Info) Description 07/13/2024 Telephone [facility] MEDICINE [address] [place], [place] [phone] Zahraa Roca DO [address] [place], [place] [phone] PT-1 Social History Tobacco Use Types Packs/Day [...] Y/N: Yes Provider name or facility name: [address] [place] [address] Escort needed: Y/N: No Do you have a wheelchair: Y/N: No If yes- Manual or electric: Visits: (3x Monthly) documented in this encounter Plan of Treatment Upcoming Encounters Date Type Department Care Team (Late st Contact Info) Description 08/28/2024 11:30 AM EST Office Visit [facility] CHC MED & PEDS [address] [place] [address] Claus Escobar MD [address] [place] [address] 08/29/2024 10:00 AM EST Clinical Support [facility] MEDICINE [address] [place] [address] Mere Rios, HENRIK documented as of this encounter Visit Diagnoses Not on filedocumented in this encounter Additional Health Concerns Assessment Noted Time PHQ-9 Depression Total Score: 0 11/28/19 24 11:23 AM EDT documented as of this encounter Care Teams Forest Law And Policy Professor Relationship Specialty Start Date End Date Zahraa Roca DO [address] [place] [address] PCP - General Family Medicine 07/25/18 Christian Soria FNP [address] [place] [address] Nurse Practitioner Family Medicine 06/24/23 documented as of this encounter
--- OUTSIDE RECORDS SUMMARY | 2024-08-21 11:35 | XMS_ITS | Encounter Summary ---
Author Organization [employer] Address [address] [place] [address] Care Team Providers Care Fibreglass Lay Up Worker Name Role Phone YudiZahraa barahona Primary Care Provider + [phone] Christian Soria Unavailable Unavailable Reason for Visit * Reason Comments Med Refill Encounter Details Date Type Department Care Team (Late st Contact Info) Description 12/31/2022 Refill [facility] MEDICINE [address] [place] [phone] Christian Soria FNP Anxiety Social History Tobacco [...] 11:30 AM EST Office Visit [facility] MED & PEDS [address] [place], [place] [phone] Claus Escobar MD [address] [place] [address] 08/29/2024 10:00 AM EST Clinical Support [facility] MEDICINE [address] [place] [address] Mere Rios, HENRIK documented as of this encounter Visit Diagnoses Diagnosis Anxiety Anxiety state, unspecified documented in this encounter Additional Health Concerns Assessment Noted Time PHQ-9 Depression Total Score: 0 08/24/19 23 2:33 PM EST documented as of this encounter Care Teams Fibreglass Lay Up Worker Relationship Specialty Start Date End Date Zahraa Roca DO [address] [place] [address] PCP - General Family Medicine 07/25/18 Christian Soria FNP [address] [place] [address] Nurse Practitioner Family Medicine 06/24/23 documented as of this encounter
--- OUTSIDE RECORDS SUMMARY | 2024-08-21 11:36 | XMS_ITS | Encounter Summary ---
Author Organization [employer] Address [address] [facility] 7t [place] [address] Care Team Providers Care Float Operator Name Role Phone Abelino Zahraa Primary Care Provider + [phone] Christian Soria Unavailable Unavailable Encounter Details Date [...] Upcoming Encounters Date Type Department Care Team ([facility] st Contact Info) Description 08/28/2024 11:30 AM EST Office Visit [facility] CH[facility] MED & PEDS [address] [place] [address] Claus Escobar MD [address] [place] [address] 08/29/2024 10:00 AM EST Clinical Support [facility] MEDICINE [address] [place], [place] [phone] Mere Rios RN documented as of this [...] EST documented in this encounter Results * XR Elbow 1-2 Views Right (08/15/2024 10:35 PM EST) Anatomical Region Laterality Modality Upper Extremities, Elbow Right Radiogr aphic Imaging 08/15/2024 10:3 5 PM EST Narrative 08/15/2024 10:37 PM EST ? [facility] ?[address] ?[place] [address] ?XRay Report ? Signed ? Patient: Cristobal Ceron ?MR#: [id number] ?? 54 ? : 1970 ?Acct:[id number] ? Age/Sex: 54 / M ?ADM Date: 08/15/24 ? Loc: HO.US ? Attending Dr: Zamzam Richmond PA-C ? Ordering Physician: Sergei Christine MD ?? Date of Service: 08/15/24 ?? Procedure(s): XR elbow RT 2V ?? Accession Number(s): [id number] ? cc: Zahraa Roca DO; Sergei Christine [...] signed by Shalom Coronado MD in OV> ?08/15/242235 ? DD/ 34 ? TD/TT: 08/15/242234 ? Head Grinder: ? Procedure Note Donotuseinterpreter, Image - 08/15/[address] [address] XRay Report Signed Patient: Cristobal Ceron JMR#: [id number] 54 : 1970Acct:[id number] Age/Sex: 54 / MADM Date: 08/15/24 Loc: HO.US Attending Dr: Zamzam Richmond PA-C Ordering Physician: Sergei Christine MD Date of Service: 08/15/24 Procedure(s): XR elbow RT 2V Accession Number(s): [id number] cc: Zahraa Roca DO; Sergei Christine MD [...] in OV> 08/15/242235 DD/ 34 TD/TT: 08/15/242234 Head Grinder: us [facility] External Provider IMG XR PROCEDURES Edited Result - Final * VASC US Lower Extremity Venous Insufficiency Bilateral (08/15/2024 8:40 AM EST) 08/15/2024 8:40 AM EST Narrative [facility] - 08/20/2024 7:43 AM EST ? [place] [facility] ?[address] ?[place] [address] ? Ultrasound Report ? Signed ? Patient: Szydlo,Cristobal J ?MR#: [id number] ?? 54 ? : 1970 ?Acct:[id number] ? Age/Sex: 54 / M ?ADM Date: 08/15/24 ? Loc: HO.US ? Attending Dr: Zamzam Richmond PA-C ? Ordering Physician: Zamzam Richmond PA-C ?? Date of Service: 08/15/24 ?? Procedure(s): US venous insuf bilat ?? Accession Number(s): [id number] ? cc: Zahraa Roca DO; Zamzam Richmond [...] ?? Size: NA ?? Reflux: NA ? US/ venous insuf bilat ?? IMPRESSION: ?? Right: [...] DD/ 0840 ? TD/TT: 08/15/24 0930 ? Head Grinder: ? Procedure Note Aziza, Image - 08/20/2024 [place] [address] Ultrasound Report Signed Patient: Cristobal Ceron JMR#: [id number] 54 : 1970Acct:[id number] Age/Sex: 54 / MADM Date: 08/15/24 Loc: HO.US Attending Dr: Zamzam Richmond PA-C Ordering Physician: Zamzam Richmond PA-C Date of Service: 08/15/24 Procedure(s): US venous insuf bilat Accession Number(s): [id number] cc: Zahraa Roca DO; Zamzam Richmond PA-C [...] Boris Sears MD 08/20/2024 07:40 AM EST Dictated By: Boris Lovett MD Signed By: <Electronically signed by Boris Bates MDin OV> 08/20/24 0740 DD/ 0840 TD/TT: 08/15/24 0930 Head Grinder: us [facility] External Provider CV VASC ULAR PROCEDURES Edited Result - Final [facility] [address] [place] [phone] * US VENOUS DUPLEX LE RT (07/23/2024 5:16 PM EST) Anatomical Region Laterality Modality Abdomen Ultrasound 07/23/2024 5:16 PM EST Narrative 07/23/2024 5:17 PM EST ? [facility] ?[address] ?[place] [address] ? Ultrasound Report ? Signed ? Patient: Cristobal Ceron J ?MR#: [id number] ?? 54 ? : 1970 ?Acct:[id number] ? Age/Sex: 54 / M ?ADM Date: 07/23/24 ? Loc: HO.ED ? Attending Dr: ? Ordering Physician: Raul Almaguer ?? Date of Service: 07/23/24 ?? Procedure(s): US venous duplex LE RT ?? Accession Number(s): [id number] ? cc: Zahraa Roca DO; Raul Almaguer [...] ? Signed By: ?<Electronically signed by Gelacio Stone, MD in OV> ?07/23/24 171 ? DD/ 15 ? TD/TT: 07/23/241715 ? Head Grinder: ? Procedure Note Denys Ervin - 07/23/[address] [address] Ultrasound Report Signed Patient: Cristobal Ceron R#: [id number] 54 : 1970Acct:[id number] Age/Sex: 54 / MADM Date: 07/23/24 Loc: HO.ED Attending Dr: Ordering Physician: Raul Almaguer Date of Service: 07/23/24 Procedure(s): US venous duplex LE RT Accession Number(s): [id number] cc: Zahraa Roca DO; Raul Almaguer CLINICAL [...] in OV> 07/23/241716 DD/ 15 TD/TT: 07/23/241715 Head Grinder: [facility] External Provider IMG US PROCEDURES Final Result * SARS-CoV-2 RNA, Influenza A/B, and RSV RNA, Ql NAAT (07/23/2024 12:47 PM EST) Influenza A PCR NEGATIVE Negative [facility] Influenza B PCR NEGATIVE Negative [facility] Resp Syncy Virus RNA Qual PCR NEGATIVE Negative [facility] SARS COV2 PCR NEGATIVE Negative [facility] Comment:All test results mus t [...] use by authorized laboratories.Testing performed on the [employer] GeneXpert utilizingreal-time RT-PCR.All SARS CoV2 and positive influenza A/B results arereported to [facility]. 07/23/2024 12:4 7 PM EST 07/23/2024 12:55 PM EST Generic External Data Provider LAB MICROBIOLOGY - GENERAL ORDERABLES Final Result [facility] [address] [place] [phone] * Lipase (07/23/2024 12:47 PM EST) Pathologist [facility] Lipase 12 8 - 78 U/L [facility] 07/23/2024 12:4 7 PM EST 07/23/2024 12:55 PM EST Generic External Data Provider LAB BLOOD ORDERAB LES Final Result Performing Organization Address [facility]/ZIP Co de Phone Number [facility] [address] [place] [phone] * Magnesium (07/23/2024 12:47 PM EST) [facility] Magnesium 1.8 1.6 - 2.6 mg/dL [facility] 07/23/2024 12:4 7 PM EST 07/23/2024 12:55 PM EST Generic External Data Provider LAB BLOOD ORDERAB LES Final Result Performing Organization Address [facility] de Phone Number [facility] [address] [place] [phone] * (ABNORMAL) Comprehensive Metabolic Panel (07/23/2024 12:47 PM EST) [facility] Sodium 141 135 - 145 mmol/L [facility] Potassium 3.8 3.3 - 5.1 mmol/L [facility] Chloride 106 96 - 108 mmol/L [facility] Carbon Dioxide 29 22 - 29 mmol/L [facility] Anion Gap 10(L) 12 - 20 [facility] Urea Nitrogen (BUN) 14 9 - 16 mg/dL [facility] Creatinine, Serum 0.83 0.5 - 1.4 mg/dL [facility] Creatinine Clr Calc Pharmacy 102.6 [facility] Comment:eGFR (calculated fro m the MDRD study equation) and eCrCl(calculated from the Cockcroft-Gault equation) are based ondifferent parameters and may not yield comparable results.If eCrCl result is absurd, please check patient'sheight/weight. Estimated Glomerular Filt Rate >60 [facility] Comment:Chronic Kidney Disea se: Estimated GFR < 60 mL/min/1.17n3Edzoiw Kidney Disease: Estimated GFR < 15 mL/min/1.73m2 Glucose 94 60 - 115 mg/dL [facility] Calcium 8.5 8.4 - 10.2 mg/dL [facility] Bilirubin, Total 0.5 0.0 - 1.0 mg/dL [facility] Aspartate Amino Transferase 21 5 - 37 U/L [facility] Alanine Aminotransferase 14 0 - 40 U/L [facility] Total Protein 6.8 6.5 - 8.0 g/dL [facility] Albumin Level 4.2 3.5 - 5.0 g/dL [facility] Alkaline Phosphatase 116 39 - 117 U/L [facility] 07/23/2024 12:4 7 PM EST 07/23/2024 12:55 PM EST us Generic External Data Provider LAB BLOOD ORDERAB LES Final Result [facility] [address] [place] [phone] * (ABNORMAL) Prothrombin Time-INR (07/23/2024 12:47 PM EST) Prothrombin Time 13.9(H) 10.9 - 12.4 SEC [facility] INTERNATIONAL NORM RATIO 1.2(H) 0.9 - 1.1 [facility] Comment:INTERNATIONAL NORMAL IZED RATIO (INR) [...] LAB BLOOD ORDERAB LES Final Result [facility] [address] [place] [phone] [phone] * (ABNORMAL) CBC auto differential (07/23/2024 12:47 PM EST) White Blood Count 4.9 4.8 - 10.8 X10*3/uL [facility] Red Blood Count 4.20(L) 4.60 - 5.80 X10*6/uL [facility] Hemoglobin 12.5(L) 14.0 - 18.0 g/dl [facility] Hematocrit 37.2(L) 42.0 - 52.0 % [facility] Mean Corpuscular Volume 88.6 80.0 - 98.0 fL [facility] Mean Corpuscular Hemoglobin 29.8 27.0 - 33.0 pg [facility] Mean Corpuscular HGB Conc 33.6 31.0 - 36.0 g/dl [facility] Red Cell Distribution Width 12.4 11.0 - 16.0 % [facility] Platelet Count 178 160 - 400 X10*3/uL [facility] Mean Platelet Volume 9.9 9.4 - 12.4 fL [facility] Neutrophils Percent Auto 65.7 45 - 73 % [facility] Imm Gran Pct Auto 0.4 0.0 - 0.4 % [facility] Lymphocytes Percent Auto 26.1 20 - 40 % [facility] Monocytes Percent Auto 5.8 2 - 11 % [facility] Eosinophils Percent Auto 1.4 0 - 4 % [facility] Basophils Percent Auto 0.6 0 - 2 % [facility] NRBC Pct Auto 0.0 0.0 - 0.2 /100WBC [facility] Neutrophils Absolute Auto 3.2 2.0 - 8.3 x10*3/uL [facility] Imm Gran Abs Auto 0.02 0.00 - 0.03 X10*3/uL [facility] Lymphocytes Absolute Auto 1.3 1.2 - 4.9 X10*3/uL [facility] Monocytes Absolute Auto 0.3 0.1 - 1.2 X10*3/uL [facility] Eosinophils Absolute Auto 0.1 0.0 - 0.4 X10*3/uL [facility] Basophils Absolute Auto 0.0 0.0 - 0.2 X10*3/uL [facility] NRBC Abs Auto 0.000 0.0 - 0.012 X10*3/uL [facility] 07/23/2024 12:4 7 PM EST 07/23/2024 12:55 PM EST us Generic External Data Provider LAB BLOOD ORDERAB LES Final Result [facility] [address] [place] [address] [phone] documented in this encounter Visit Diagnoses Not on filedocumented in this encounter Additional Health Concerns Assessment Noted Time PHQ-9 Depression Total Score: 0 11/28/19 24 11:23 AM EDT documented as of this encounter Care Teams Float Operator Relationship Specialty Start Date End Date Zahraa Roca DO [address] [place] [address] PCP - General Family Medicine 07/25/18 Christian Soria FNP [address] [place] [address] Nurse Practitioner Family Medicine 06/24/23 documented as of this encounter
--- OUTSIDE RECORDS SUMMARY | 2024-08-21 11:36 | XMS_ITS | Encounter Summary ---
Author Organization [employer] Address [address] [place] [address] [address] [place] [address] Care Team Providers Care Plumbing Assembler Installer Name Role Phone Betzaida Rocafer Primary Care Provider + [phone] Christian Soria Unavailable Unavailable Encounter Details Date Type Department Care Team (Late st Contact Info) Description 09/20/2022 Orders Only [facility] MED & PEDS [address] [place] [address] Zahraa Andino LPN Social History Tobacco Use [...] Description 08/28/2024 11:30 AM EST Office Visit [facility] MED & PEDS [address] [place] [address] Claus Escobar MD [address] [place] [address] 08/29/2024 10:00 AM EST Clinical Support [facility] MEDICINE [address] [place] [address] Mere Rios RN documented as of this encounter Visit Diagnoses Not on filedocumented in this encounter Additional Health Concerns Assessment Noted Time PHQ-9 Depression Total Score: 0 08/24/19 23 2:33 PM EST documented as of this encounter Care Teams Plumbing Assembler Installer Relationship Specialty Start Date End Date Zahraa Roca DO [address] [place] [address] PCP - General Family Medicine 07/25/18 Christian Soria FNP [address] [place] [address] Nurse Practitioner Family Medicine 06/24/23 documented as of this encounter
--- OUTSIDE RECORDS SUMMARY | 2024-08-21 11:36 | XMS_ITS | Encounter Summary ---
Author Organization [employer] Address [address] [place] [address] Care Team Providers Care Financial Investigator Name Role Phone Zahraa Roca DO Primary Care Provider +[phone] Christian Soria Unavailable Unavailable Encounter Details Date Type Department Care Team (Late st Contact Info) Description 08/31/[address] [address] Zahraa Roca DO [address] [place] [address] Social History Tobacco Use Types Packs/Day Years [...] Description 08/28/2024 11:30 AM EST Office Visit [facility] CHC MED & PEDS [address] [place], [place] [phone] Claus Escobar MD [address] [place] [address] 08/29/2024 10:00 AM EST Clinical Support [address] [address] Mere Rios, RN documented as of this encounter Visit Diagnoses Not on filedocumented in this encounter Additional Health Concerns Assessment Noted Time PHQ-9 Depression Total Score: 0 08/24/19 23 2:33 PM EST documented as of this encounter Care Teams Financial Investigator Relationship Specialty Start Date End Date Zahraa Roca DO [address] [place] [address] PCP - General Family Medicine 07/25/18 Christian Soria FNP [address] [place] [address] Nurse Practitioner Family Medicine 06/24/23 documented as of this encounter
--- OUTSIDE RECORDS SUMMARY | 2024-08-21 11:36 | XMS_ITS | Encounter Summary ---
Author Organization [employer] Address [address] [facility] [address] 7t [place] [address] Care Team Providers Care Night Warehouse Selector Name Role Phone Abelino Zahraa Primary Care Provider + [phone] Christian Soria Unavailable Unavailable Encounter Details Date Type Department Care Team (Late st Contact Info) Description 11/03/[address] [facility] MEDICINE [address] [place] [address] Provider, MD Hiral Social History Tobacco Use [...] 08/28/2024 11:30 AM EST Office Visit [facility] MED & PEDS [address] [place], [place] [phone] Claus Escobar MD [address] [place] [address] 08/29/2024 10:00 AM EST Clinical Support [facility] [address] [place] [address] Mere Rios RN documented as of this [...] documented as of this encounter Care Teams Night Warehouse Selector Relationship Specialty Start Date End Date Zahraa Roca DO [address] [place] [address] PCP - General Family Medicine 07/25/18 Christian Soria FNP [address] [place] [address] Nurse Practitioner Family Medicine 06/24/23 documented as of this encounter
--- OUTSIDE RECORDS SUMMARY | 2024-08-21 11:36 | XMS_ITS | Encounter Summary ---
Author Organization [employer] Address [address] [place] [address] 7 [place] [address] Care Team Providers Care Furnace Operator Oil Or Gas Name Role Phone Zahraa Roca DO Primary Care Provider + [phone] Christian Soria Unavailable Unavailable Reason for Visit * Reason Onset Date Comments Med Refill 08/20/2024 Encounter Details Date Type Department Care Team (Late st Contact Info) Description 08/20/2024 Refill [facility] [address] [place], [place] [phone] Zahraa Roca DO [address] [place], [place] [phone] Anxiety Social History Tobacco Use Types Packs/Day [...] encounter Miscellaneous Notes * Telephone Encounter - Lupillo Fraser - 08/20/2024 9:16 AM EST TC from pt requesting medication refill. Medications needing refill : clonazePAM (KlonoPIN) 1 MG tablet To be sent to: [facility] - [place], [place] - [address] [place] [address] documented in this encounter Plan of Treatment Upcoming Encounters Date Type Department Care Team ([facility] st Contact Info) Description 08/28/2024 11:30 AM EST Office Visit [facility] MED & PEDS [address] [place] [address] Claus Escobar MD [address] [place] [address] 08/29/2024 10:00 AM EST Clinical Support [facility] MEDIC[facility] [address] [place] [address] Mere Rios RN documented as of this encounter Visit Diagnoses Diagnosis Anxiety Anxiety state, unspecified documented in this encounter Additional Health Concerns Assessment Noted Time PHQ-9 Depression Total Score: 0 11/28/19 24 11:23 AM EDT documented as of this encounter Care Teams Furnace Operator Oil Or Gas Relationship Specialty Start Date End Date Zahraa Roca DO [address] [place] [address] PCP - General Family Medicine 07/25/18 Christian Soria FNP [address] [place] [address] Nurse Practitioner Family Medicine 06/24/23 documented as of this encounter
--- OUTSIDE RECORDS SUMMARY | 2024-08-21 11:36 | XMS_ITS | Encounter Summary ---
Author Organization [employer] Address [address] [place] [address] [facility] [place] [address] Care Team Providers Care Asbestos Abatement Technician Name Role Phone Betzaida Rocafer Primary Care Provider + [phone] Christian Soria Unavailable Unavailable Encounter Details Date Type Department Care Team (Late st Contact Info) Description 10/21/2022 Orders Only [facility]ED[facility] [address] [place] [address] Zahraa Andino LPN Social History Tobacco Use [...] [facility] [address] [place] [address] Claus Escobar MD [address] [place] [address] 08/29/2024 10:00 AM EST Clinical Support [facility] MEDICINE [address] [place] [address] Mere Rios RN documented as of this encounter Visit Diagnoses Not on filedocumented in this encounter Additional Health Concerns Assessment Noted Time PHQ-9 Depression Total Score: 0 08/24/19 23 2:33 PM EST documented as of this encounter Care Teams Asbestos Abatement Technician Relationship Specialty Start Date End Date Zahraa Roca DO [address] [place] [address] PCP - General Family Medicine 07/25/18 Christian Soria FNP [address] [place] [address] Nurse Practitioner Family Medicine 06/24/23 documented as of this encounter
== END 2024-08-21 10:44 | disposition home or self-care (01) ==
PROVIDERS: PCP Family Medicine; Visit Provider Surgery
DX: D17.9 Benign lipomatous neoplasm, unspecified (principal)
CPT/HCPCS: 99214

== ENCOUNTER → 2024-08-21 10:31 | Outpatient (BNVA) | payer MEDICARE, MEDICAID, SELFPAY | PROVIDERS: PCP Family Medicine; Visit Provider Surgery | DX: D17.9 Benign lipomatous neoplasm, unspecified (principal) | CPT/HCPCS: 99212 ==

== ENCOUNTER 2024-09-12 16:40 | Outpatient (REF) | payer MEDICARE, MEDICAID, SELFPAY ==
--- OUTSIDE RECORDS SUMMARY | 2024-09-12 16:44 | XMS_ITS | Encounter Summary ---
Author Organization [employer] Address [address] [place] [address] 7 [place] [address] Care Team Providers Care Frame Table Operator Name Role Phone Zahraa Roca DO Primary Care Provider + [phone] Christian Soria Unavailable Unavailable Reason for Visit * Reason Onset Date Comments PT-1 07/13/2024 Encounter Details Date Type Department Care Team (Late st Contact Info) Description 07/13/2024 Telephone [facility] [address] [place], [place] [phone] Zahraa Roca DO [address] [place], [place] [phone] PT-1 Social History Tobacco Use Types Packs/Day [...] Y/N: Yes Provider name or facility name: [address] Escort needed: Y/N: No Do you have a wheelchair: Y/N: No If yes- Manual or electric: Visits: (3x Monthly) documented in this encounter Plan of Treatment Upcoming Encounters Date Type Department Care Team (Late st Contact Info) Description 10/10/2024 9:00 AM EDT Clinical Support [facility] [address] [place] [address] Mere Rios RN documented as of this encounter Visit Diagnoses Not on filedocumented in this encounter Additional Health Concerns Assessment Noted Time PHQ-9 Depression Total Score: 0 11/28/19 24 11:23 AM EDT documented as of this encounter Care Teams Frame Table Operator Relationship Specialty Start Date End Date Zahraa Roca DO [address] [place] [address] PCP - General Family Medicine 07/25/18 Christian Soria FNP [address] [place] [address] Nurse Practitioner Family Medicine 06/24/23 documented as of this encounter
--- OUTSIDE RECORDS SUMMARY | 2024-09-12 16:44 | XMS_ITS | Encounter Summary ---
Author Organization [employer] Address [address] [place] [address] 7 [place] [address] Care Team Providers Care Communications Writer Name Role Phone Zahraa Roca DO Primary Care Provider + [phone] Christian Soria Unavailable Unavailable Reason for Visit * Reason Onset Date Comments Appt question 08/09/2024 Encounter Details Date Type Department Care Team (Late st Contact Info) Description 08/09/2024 Telephone [facility] MEDICINE [address] [place], [place] [phone] Zahraa Roca DO [address] [place], [place] [phone] Appt question Social History Tobacco Use Types [...] for biopsy and wants to be sure aug appt its for that. Any questions [phone] documented in this encounter Plan of Treatment Upcoming Encounters Date Type Department Care Team (Late st Contact Info) Description 10/10/2024 9:00 AM EDT Clinical Support [facility] [address] [place] [address] Mere Rios RN documented as of this encounter Visit Diagnoses Not on filedocumented in this encounter Additional Health Concerns Assessment Noted Time PHQ-9 Depression Total Score: 0 11/28/19 24 11:23 AM EDT documented as of this encounter Care Teams Communications Writer Relationship Specialty Start Date End Date Zahraa Roca DO [address] [place] [address] PCP - General Family Medicine 07/25/18 Christian Soria FNP [address] [place] [address] Nurse Practitioner Family Medicine 06/24/23 documented as of this encounter
--- OUTSIDE RECORDS SUMMARY | 2024-09-12 16:44 | XMS_ITS | Encounter Summary ---
Author Organization [employer] Address [address] [place] [address] [facility] [place] [address] Care Team Providers Care Indian Trader Name Role Phone Zahraa Roca DO Primary Care Provider + [phone] Christian Soria Unavailable Unavailable Encounter Details Date Type Department Care Team (Late st Contact Info) Description 08/12/2022 Orders Only [facility] MED & PEDS [address] [place] [address] Zahraa Andino LPN Social History Tobacco Use [...] Description 10/10/2024 9:00 AM EDT Clinical Support [facility] MEDICINE [address] [place] [address] Mere Rios RN documented as of this encounter Visit Diagnoses Not on filedocumented in this encounter Care Teams Indian Trader Relationship Specialty Start Date End Date Zahraa Roca DO [address] [place] [address] PCP - General Family Medicine 07/25/18 Christian Soria FNP [address] [place] [address] [place] [address] Nurse Practitioner Family Medicine 06/24/23 documented as of this encounter
--- OUTSIDE RECORDS SUMMARY | 2024-09-12 16:44 | XMS_ITS | Encounter Summary ---
Author Organization [employer] Address [address] [place] [address] 7 [place] [address] Care Team Providers Care Civil Attorney Name Role Phone Zahraa Roca DO Primary Care Provider + [phone] Christian Soria Unavailable Unavailable Encounter Details Date Type Department Care Team (Late st Contact Info) Description 10/21/2022 Orders Only [facility] CHC MED & PEDS [address] [place], [place] [phone] Zahraa Andino LPN Social History Tobacco Use [...] Description 10/10/2024 9:00 AM EDT Clinical Support [facility] MEDICINE [address] [place] [address] Mere Rios RN documented as of this encounter Visit Diagnoses Not on filedocumented in this encounter Additional Health Concerns Assessment Noted Time PHQ-9 Depression Total Score: 0 08/24/19 23 2:33 PM EST documented as of this encounter Care Teams Civil Attorney Relationship Specialty Start Date End Date Zahraa Roca DO [address] [place], [place] [phone] PCP - General Family Medicine 07/25/18 Christian Soria FNP [address] [place] [address] Nurse Practitioner Family Medicine 06/24/23 documented as of this encounter
--- OUTSIDE RECORDS SUMMARY | 2024-09-12 16:44 | XMS_ITS | Encounter Summary ---
Author Organization [employer] Address [address] [place] [address] 7 [place] [address] Care Team Providers Care Data Engineer Name Role Phone SuryaZahraa lee Primary Care Provider + [phone] Christian Soira Unavailable Unavailable Reason for Visit * Reason Comments Med Refill Encounter Details Date Type Department Care Team (Late st Contact Info) Description 12/19/2022 Refill [facility] MEDICINE [address] [place] [address] Christian Soria FNP Anxiety Social History Tobacco [...] Description 10/10/2024 9:00 AM EDT Clinical Support [facility] MEDICINE [address] [place] [address] Mere Rios RN documented as of this encounter Visit Diagnoses Diagnosis Anxiety Anxiety state, unspecified documented in this encounter Additional Health Concerns Assessment Noted Time PHQ-9 Depression Total Score: 0 08/24/19 23 2:33 PM EST documented as of this encounter Care Teams Data Engineer Relationship Specialty Start Date End Date Zahraa Roca DO [address] [place] [address] PCP - General Family Medicine 07/25/18 Christian Soria FNP [address] [place] [address] Nurse Practitioner Family Medicine 06/24/23 documented as of this encounter
--- OUTSIDE RECORDS SUMMARY | 2024-09-12 16:44 | XMS_ITS | Encounter Summary ---
Author Organization [employer] Address [address] [place] [address] [address] [place] [address] Care Team Providers Care Supervisor Hand Silvering Name Role Phone Zahraa Roca DO Primary Care Provider + [phone] Christian Soria Unavailable Unavailable Encounter Details Date Type Department Care Team (Late st Contact Info) Description 07/06/2022 Orders Only [facility] CHC MED & PEDS [address] [place] [address] Zahraa Andino LPN Social History Tobacco Use [...] Description 10/10/2024 9:00 AM EDT Clinical Support [facility] MEDICINE [address] [place] [address] Mere Rios RN documented as of this encounter Visit Diagnoses Not on filedocumented in this encounter Care Teams Supervisor Hand Silvering Relationship Specialty Start Date End Date Zahraa Roca DO [address] [place] [address] PCP - General Family Medicine 07/25/18 Christian Soria FNP [address] [place] [address] [place] [address] Nurse Practitioner Family Medicine 06/24/23 documented as of this encounter
--- OUTSIDE RECORDS SUMMARY | 2024-09-12 16:44 | XMS_ITS | Encounter Summary ---
Author Organization [employer] Address [address] [place] [address] 7 [place] [address] Care Team Providers Care Commercial Property Administrator Name Role Phone Abelino Zahraa Primary Care Provider + [phone] Christian Soria Unavailable Unavailable Reason for Visit * Reason Onset Date Comments MAKEUP INSTRUCTOR Initial completed today 09/12/2024 UTOX Neg BZO. sent out 09/12/2024 Encounter Details Date Type Department Care Team ([facility] st Contact Info) Description 09/12/2024 Telephone [facility] MEDICINE [address] [place] [address] Mere Rios RN MAKEUP INSTRUCTOR Initial completed today; UTOX Neg BZO. sent out Social History Tobacco Use Types Packs/Day Years [...] Telephone Encounter - Mere Rios RN - 09/12/2024 10:05 AM EST Pt had MAKEUP INSTRUCTOR Initial appt today UTOX Neg BZO, sent out for confirmation Pt had 2 Clonazepam remaining, anticipated 4. States he thinks 2 are under his dresser still. documented in this encounter Plan of Treatment Upcoming Encounters Date Type Department Care Team (Late st Contact Info) Description 10/10/2024 9:00 AM EDT Clinical Support [facility] MEDICINE [address] [place] [address] Mere Rios, RN documented as of this encounter Visit Diagnoses Not on filedocumented in this encounter Additional Health Concerns Assessment Noted Time PHQ-9 Depression Total Score: 0 11/28/19 24 11:23 AM EDT documented as of this encounter Care Teams Commercial Property Administrator Relationship Specialty Start Date End Date Zahraa Roca DO [address] [place] [address] PCP - General Family Medicine 07/25/18 Christian Soria FNP [address] [place] [address] Nurse Practitioner Family Medicine 06/24/23 documented as of this encounter
--- OUTSIDE RECORDS SUMMARY | 2024-09-12 16:44 | XMS_ITS | Encounter Summary ---
Author Organization [employer] Address [address] [place] [address] 7 [place] [address] Care Team Providers Care Supervisor Malt House Name Role Phone Abelino Zahraa Primary Care Provider + [phone] Christian Soria Unavailable Unavailable Reason for Visit * Reason Comments SHAPER AND PRESSER Initial SHAPER AND PRESSER Initial Encounter Details Date Type Department Care Team (Latest Contact Info) Description 09/12/2024 9:30 AM EST Clinical Support [facility] MEDICINE [address] [place] [address] Mere Rios RN Anxiety (Primary Dx); Opioid dependence on agonist therapy (CMS/HCC) Social History Tobacco Use Types Packs/Day Years [...] your housing situation today? I have valentin sing 03/12/[address] you li [...] as of this encounter Progress Notes * Mere Rios RN - 09/12/2024 9:30 AM EST S: Pt here for initial SHAPER AND PRESSER Visit. Prescribed Clonazepam 1mg QD. States he has been taking medication as prescribed, last dose taken was yesterday. States he did take an extra dose one day when he felt like he was having a panic attack. Also states that some of his pills fell under his dresser and are not in his bottle. He smokes 1-2 cigarettes daily and has since he was 14 years old. 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 Denies illicit drug use. States he smokes marijuana weekly. He purchaseshis marijuana from a dispensary only and denies having a medical marijuana card. States he used to get marijuana from the street, but one time tested positive for oxycodone and now will only use it from a dispensary. He is apart of a methadone clinic in [place]. O: SHAPER AND PRESSER Tier 1. Pt currently prescribed Clonazepam 1m QD. COPY TECHNICIAN verified today. Rx last filled on 08/20/24. Pill count performed. Pt has 2 pills as this time, 4 at least expected. Reviewed his Clonazepamorder. Pt states he is aware he wont get early refill. He still believes he has 2 Clonazepam under his dresser. UTOX completed. Positive for MTD & THC, Negative for AMP, BAR, BUP, BZO, JYOTI, FTY, M DMA, MET, MOP, OXY, PCP, TCA. UTOX not as expected. Reviewed UTOX results, explained I will send urine out for BZO confirmation at lab and I will call him if his results are abnormal. SIDDHARTHA-7 assessment completed this visit. Pt scored 8. Narcan medication reviewed, how it's administered and when it'sused. Pt stated he understood. Will send request to PCP for Narcan RX, update on UTOX and pill count. Last PCP visit was 06/06/24. A: SHAPER AND PRESSER Contract Initiation Visit, Chronic BZO use r/t anxiety. P: SHAPER AND PRESSER contract reviewed and signed, pt provided copy. Pt to continue taking medication only as prescribed; Next SHAPER AND PRESSER RV appointment scheduled for 10/10/24 @ 9am, F/U sooner PRN. Appointment reminder given. Pt verbalized understanding and agreed to plan. documented in this encounter Plan of Treatment Upcoming Encounters Date Type Department Care Team (Late st Contact Info) Description 10/10/2024 9:00 AM EDT Clinical Support [facility] MEDICINE [address] [place] [phone] Mere Rios, RN Scheduled Orders Name Type Priority Associated Diagnoses Orde r Schedule Drug Monitoring, Benzodiazepines, Quantitative, Urine Lab Routine Anxiety Ordered: 09/12/2024 documented as of this encounter Procedures Procedure Name Priority Date/Time Associated Diagnosis Comments POCT MARIO-14 URINE DRUG SCREEN Routine 09/12/2024 9:54 AM EST Opioid dependence on agonist therapy ([facility]) documented in this encounter Results * (ABNORMAL) POCT MARIO-14 Urine Drug Screen (09/12/2024 9:54 AM EST) THC Positive Benzodiazepines Screen, Urine Negative Methadone Screen, Urine Positive Urine Urine specimen obtained by clean catch procedure / Unknown 09/12/2024 9:54 AM EST Narrative Mere Rios RN - 09/12/2024 9:54 AM EST UTOX cup Lot#[id number] Exp. 03/13/26 Internal Pass Control Zahraa Roca DO POINT OF CARE TEST ENTER/JOANNA T ORDERABLES Final Result documented in this encounter Visit Diagnoses Diagnosis Anxiety- Primary Anxiety state, unspecified Opioid dependence on agonist therapy (CMS/HCC) documented in this encounter Additional Health Concerns Assessment Noted Time PHQ-9 Depression Total Score: 0 11/28/19 24 11:23 AM EDT documented as of this encounter Care Teams Supervisor Malt House Relationship Specialty Start Date End Date Zahraa Roca DO [address] [place] [address] PCP - General Family Medicine 07/25/18 Christian Soria FNP [address] [place] [address] Nurse Practitioner Family Medicine 06/24/23 documented as of this encounter
--- OUTSIDE RECORDS SUMMARY | 2024-09-12 16:44 | XMS_ITS | Encounter Summary ---
Author Organization [employer] Address [address] [place] [address] 7 [place] [address] Care Team Providers Care Mid Level Game Designer Name Role Phone Zahraa Roca DO Primary Care Provider + [phone] Christian Soria Unavailable Unavailable Reason for Visit * Reason Onset Date Comments PT-1 04/17/2024 Encounter Details Date Type Department Care Team (Late st Contact Info) Description 04/17/2024 Telephone [facility] MEDICINE [address] [place], [place] [phone] Zahraa Roca DO [address] [place], [place] [phone] PT-1 Social History Tobacco Use Types Packs/Day [...] Y/N: Yes Provider name or facility name: [facility] Facility Address: [address] [place] [address] Escort needed: Y/N: No Do you have a wheelchair: Y/N: No If yes- Manual or electric: N/A Visits: Twice a month documented in this encounter Plan of Treatment Upcoming Encounters Date Type Department Care Team ([facility] st Contact Info) Description 10/10/2024 9:00 AM EDT Clinical Support [facility] MEDICINE [address] [place] [phone] Mere Rios RN documented as of this encounter Visit Diagnoses Not on filedocumented in this encounter Additional Health Concerns Assessment Noted Time PHQ-9 Depression Total Score: 0 11/28/19 24 11:23 AM EDT documented as of this encounter Care Teams Mid Level Game Designer Relationship Specialty Start Date End Date Zahraa Roca DO [address] [place] [address] PCP - General Family Medicine 07/25/18 Christian Soria FNP [address] [place] [address] Nurse Practitioner Family Medicine 06/24/23 documented as of this encounter
--- OUTSIDE RECORDS SUMMARY | 2024-09-12 16:44 | XMS_ITS | Encounter Summary ---
Author Organization [employer] Address [address] [place] [address] 7 [place] [address] Care Team Providers Care Front End Software Developer Name Role Phone Zahraa Roca DO Primary Care Provider + [phone] Christian Soria Unavailable Unavailable Reason for Visit * Reason Onset Date Comments PT-1 03/15/2024 Encounter Details Date Type Department Care Team (Late st Contact Info) Description 03/15/2024 Telephone [facility] MEDICINE [address] [place], [place] [phone] Zahraa Roca DO [address] [place], [place] [phone] PT-1 Social History Tobacco Use Types Packs/Day [...] Y/N: Yes Provider name or facility name: [facility] Facility Address: [address] [place] [address] Escort needed: Y/N: No Do you have a wheelchair: Y/N: No If yes- Manual or electric: no Visits: 3 documented in this encounter Plan of Treatment Upcoming Encounters Date Type Department Care Team (Late st Contact Info) Description 10/10/2024 9:00 AM EDT Clinical Support [facility] MEDICINE [address] [place] [address] Mere Rios RN documented as of this encounter Visit Diagnoses Not on filedocumented in this encounter Additional Health Concerns Assessment Noted Time PHQ-9 Depression Total Score: 0 11/28/19 24 11:23 AM EDT documented as of this encounter Care Teams Front End Software Developer Relationship Specialty Start Date End Date Zahraa Roca DO [address] [place] [address] PCP - General Family Medicine 07/25/18 Christian Soria FNP [address] [place] [address] Nurse Practitioner Family Medicine 06/24/23 documented as of this encounter
--- OUTSIDE RECORDS SUMMARY | 2024-09-12 16:44 | XMS_ITS | Encounter Summary ---
Author Organization [employer] Address [address] [place] [address] 7 [place] [address] Care Team Providers Care Associate Professor Of Automation Name Role Phone YudiZahraa barahona Primary Care Provider + [phone] Christian Soria Unavailable Unavailable Reason for Visit * Reason Onset Date Comments NCNS EXTERIOR DESIGNER Initial X1 08/29/2024 Encounter Details Date Type Department Care Team (Late st Contact Info) Description 08/29/2024 Telephone [facility] MEDICINE [address] [place] [address] Mere Rios RN NCNS EXTERIOR DESIGNER Initial X1 Social History Tobacco Use Types Packs/Day Years [...] Telephone Encounter - Mere Rios RN - 08/29/2024 10:17 AM EST Pt was NCNS for EXTERIOR DESIGNER Initial appt today. TC to patient, patient apologized for missing appt. States he has many appts currently and he was waiting on his ride. EXTERIOR DESIGNER Initial rescheduled for 09/12/24 @ 9:30am. documented in this encounter Plan of Treatment Upcoming Encounters Date Type Department Care Team (Late st Contact Info) Description 10/10/2024 9:00 AM EDT Clinical Support [facility] MEDICINE [address] [place] [address] Mere Rios, RN documented as of this encounter Visit Diagnoses Not on filedocumented in this encounter Additional Health Concerns Assessment Noted Time PHQ-9 Depression Total Score: 0 11/28/19 24 11:23 AM EDT documented as of this encounter Care Teams Associate Professor Of Automation Relationship Specialty Start Date End Date Zahraa Roca DO [address] [place] [address] PCP - General Family Medicine 07/25/18 Christian Soria FNP [address] [place] [address] Nurse Practitioner Family Medicine 06/24/23 documented as of this encounter
--- OUTSIDE RECORDS SUMMARY | 2024-09-12 16:44 | XMS_ITS | Encounter Summary ---
Author Organization [employer] Address [address] [place] [address] 7 [place] [address] Care Team Providers Care Middle School Science Teacher Name Role Phone Zahraa Roca DO Primary Care Provider + [phone] Christian Soria Unavailable Unavailable Reason for Visit * Reason Onset Date Comments Patient message 09/12/2024 Encounter Details Date Type Department Care Team ([facility] st Contact Info) Description 09/12/2024 Telephone [facility] MEDICINE [address] [place] [address] Zahraa Roca DO [address] [place], [place] [phone] Patient message Social History Tobacco Use Types Packs/Day Years [...] encounter Miscellaneous Notes * Telephone Encounter - Yanira Payne RN - 09/12/2024 1:08 PM EST TC placed to patient [phone] in regards to below message. Patient reports he is seeing his vascular doctor tomorrow at [facility] and he will discuss the spot on the R thigh with the vascular provider.Patient reports he has applied ice to the lump on his back and it has decreased. Patient informed if the lump does not completely resolve or increases in size again, he should come to the [facility] to be evaluated. Patient verbalized understanding. Patient to f/u PRN. * Telephone Encounter - Alejandra High - 09/12/2024 10:05 AM EST Patient walked in wanted to relay a message to PCP. Patient said the spot on right thigh I thought was cancer. I believe is an ulcer from a perforated vain in leg. I have an appointment with Dr. Herring on 09/13/2024 for a surgery date. I also found a lump on my spine, I will go to [facility] for that documented in this encounter Plan of Treatment Upcoming Encounters Date Type Department Care Team (Late st Contact Info) Description 10/10/2024 9:00 AM EDT Clinical Support [facility] MEDICINE [address] [place] [address] Mere Rios, RN documented as of this encounter Visit Diagnoses Not on filedocumented in this encounter Additional Health Concerns Assessment Noted Time PHQ-9 Depression Total Score: 0 11/28/19 24 11:23 AM EDT documented as of this encounter Care Teams Middle School Science Teacher Relationship Specialty Start Date End Date Zahraa Roca DO [address] [place] [address] PCP - General Family Medicine 07/25/18 Christian Soria FNP [address] [place] [address] Nurse Practitioner Family Medicine 06/24/23 documented as of this encounter
--- OUTSIDE RECORDS SUMMARY | 2024-09-12 16:44 | XMS_ITS | Encounter Summary ---
Author Organization [employer] Address [address] [place] [address] [facility] [place] [address] Care Team Providers Care Power Transformer Assembler Name Role Phone Zahraa Roca DO Primary Care Provider + [phone] Christian Soria Unavailable Unavailable Reason for Visit * Reason Onset Date Comments Med Refill 12/31/2022 Encounter Details Date Type Department Care Team (Late st Contact Info) Description 12/31/2022 Telephone [facility] MEDICINE [address] [place] [address] Zahraa Roca DO [address] [place], [place] [phone] Med Refill Social History Tobacco Use Types [...] Description 10/10/2024 9:00 AM EDT Clinical Support [facility] MEDICINE [address] [place] [address] Mere Rios, HENRIK documented as of this encounter Visit Diagnoses Not on filedocumented in this encounter Additional Health Concerns Assessment Noted Time PHQ-9 Depression Total Score: 0 08/24/19 23 2:33 PM EST documented as of this encounter Care Teams Power Transformer Assembler Relationship Specialty Start Date End Date Zahraa Roca DO [address] [place] [address] PCP - General Family Medicine 07/25/18 Christian Soria FNP [address] [place] [address] Nurse Practitioner Family Medicine 06/24/23 documented as of this encounter
--- OUTSIDE RECORDS SUMMARY | 2024-09-12 16:44 | XMS_ITS | Encounter Summary ---
Author Organization [employer] Address [address] [facility] 7t [place] [address] Care Team Providers Care Wood Hacker Name Role Phone Abelino Zahraa Primary Care Provider + [phone] Christian Soria Unavailable Unavailable Reason for Visit * Reason Onset Date Comments Med Refill 09/12/2024 Encounter Details Date Type Department Care Team (Late st Contact Info) Description 09/12/2024 Refill [facility] MEDICINE [address] [place] [address] Mere Rios RN Anxiety Social History Tobacco Use Types Packs/Day [...] Encounter - Mere Rios RN - 09/12/2024 10:03 AM EST Pt had ELEVATING GRADER OPERATOR Initial appt today, Tier 1 UTOX Neg BZO, sent out for confirmation Pt had 2 Clonazepam remaining, anticipated 4. States he thinks 2 are under his dresser still. He attends methadone clinic in [place]. documented in this encounter Plan of Treatment Upcoming Encounters Date Type Department Care Team (Late st Contact Info) Description 10/10/2024 9:00 AM EDT Clinical Support [facility] MEDICINE [address] [place] [address] Mere Rios, RN documented as of this encounter Visit Diagnoses Diagnosis Anxiety Anxiety state, unspecified documented in this encounter Additional Health Concerns Assessment Noted Time PHQ-9 Depression Total Score: 0 11/28/19 24 11:23 AM EDT documented as of this encounter Care Teams Wood Hacker Relationship Specialty Start Date End Date Zahraa Roca DO [address] [place] [address] PCP - General Family Medicine 07/25/18 Christian Soria FNP [address] [place] [address] Nurse Practitioner Family Medicine 06/24/23 documented as of this encounter
--- OUTSIDE RECORDS SUMMARY | 2024-09-12 16:44 | XMS_ITS | Encounter Summary ---
Author Organization [employer] Address [address] [place] [address] 7 [place] [address] Care Team Providers Care Senior Formulation Scientist Name Role Phone Zahraa Roca DO Primary Care Provider + [phone] Christian Soria Unavailable Unavailable Encounter Details Date Type Department Care Team (Late st Contact Info) Description 09/20/2022 Orders Only [facility] CHC MED & PEDS [address] [place], [place] [phone] Zahraa Andino LPN Social History Tobacco Use [...] AM EDT Clinical Support [facility] MEDICINE [address] [place] [address] Mere Rios RN documented as of this encounter Visit Diagnoses Not on filedocumented in this encounter Additional Health Concerns Assessment Noted Time PHQ-9 Depression Total Score: 0 08/24/19 23 2:33 PM EST documented as of this encounter Care Teams Senior Formulation Scientist Relationship Specialty Start Date End Date Zahraa Roca DO [address] [place], [place] [phone] PCP - General Family Medicine 07/25/18 Christian Soria FNP [address] [place] [address] Nurse Practitioner Family Medicine 06/24/23 documented as of this encounter
--- OUTSIDE RECORDS SUMMARY | 2024-09-12 16:44 | XMS_ITS | Encounter Summary ---
Author Organization [employer] Address [address] [place] [address] 7 [place] [address] Care Team Providers Care Food Packer Name Role Phone Zahraa Roca DO Primary Care Provider + [phone] Christian Soria Unavailable Unavailable Reason for Visit * Reason Onset Date Comments Appointment Request 08/03/2024 Encounter Details Date Type Department Care Team (Late st Contact Info) Description 08/03/2024 Telephone [facility] MEDICINE [address] [place], [place] [phone] Zahraa Roca DO [address] [place], [place] [phone] Appointment Request Social History Tobacco Use Types [...] missed appointment with dermatology. Contact pt at [phone] documented in this encounter Plan of Treatment Upcoming Encounters Date Type Department Care Team (Late st Contact Info) Description 10/10/2024 9:00 AM EDT Clinical Support [facility] MEDICINE [address] [place] [address] Mere Rios, HENRIK documented as of this encounter Visit Diagnoses Not on filedocumented in this encounter Additional Health Concerns Assessment Noted Time PHQ-9 Depression Total Score: 0 11/28/19 24 11:23 AM EDT documented as of this encounter Care Teams Food Packer Relationship Specialty Start Date End Date Zahraa Roca DO [address] [place] [address] PCP - General Family Medicine 07/25/18 Christian Soria FNP [address] [place] [address] Nurse Practitioner Family Medicine 06/24/23 documented as of this encounter
--- OUTSIDE RECORDS SUMMARY | 2024-09-12 16:44 | XMS_ITS | Encounter Summary ---
Author Organization [employer] Address [address] [place] [address] 7 [place] [address] Care Team Providers Care Bituminous Paving Machine Operator Name Role Phone Zahraa Roca DO Primary Care Provider + [phone] Christian Soria Unavailable Unavailable Reason for Visit * Reason Comments Med Refill Encounter Details Date Type Department Care Team (Late st Contact Info) Description 12/31/2022 Refill [facility] [address] [place] [address] Christian Soria FNP Anxiety Social History Tobacco [...] Description 10/10/2024 9:00 AM EDT Clinical Support [facility] [address] [place] [address] Mere Rios RN documented as of this encounter Visit Diagnoses Diagnosis Anxiety Anxiety state, unspecified documented in this encounter Additional Health Concerns Assessment Noted Time PHQ-9 Depression Total Score: 0 08/24/19 23 2:33 PM EST documented as of this encounter Care Teams Bituminous Paving Machine Operator Relationship Specialty Start Date End Date Zahraa Roca DO [address] [place] [address] PCP - General Family Medicine 07/25/18 Christian Soria FNP [address] [place] [address] Nurse Practitioner Family Medicine 06/24/23 documented as of this encounter
--- OUTSIDE RECORDS SUMMARY | 2024-09-12 16:44 | XMS_ITS | Encounter Summary ---
Author Organization [employer] Address [address] [facility] 7t [place] [address] Care Team Providers Care Sales Contract Administrator Name Role Phone Abelino Zahraa CANTOR Primary Care Provider + [phone] Christian Soria Unavailable Unavailable Encounter Details Date Type Department Care Team (Late st Contact Info) Description 04/17/2024 Telephone [facility] [address] [place] [address] Lore Vargas DDS [address] [place] [address] Social History Tobacco Use Types Packs/Day Years [...] 9:00 AM EDT Clinical Support [facility] [address] [place] [address] Mere Rios, HENRIK documented as of this encounter Visit Diagnoses Not on filedocumented in this encounter Additional Health Concerns Assessment Noted Time PHQ-9 Depression Total Score: 0 11/28/19 24 11:23 AM EDT documented as of this encounter Care Teams Sales Contract Administrator Relationship Specialty Start Date End Date Zahraa Roca DO [address] [place] [address] PCP - General Family Medicine 07/25/18 Christian Soria FNP [address] [place] [address] Nurse Practitioner Family Medicine 06/24/23 documented as of this encounter
--- OUTSIDE RECORDS SUMMARY | 2024-09-12 16:44 | XMS_ITS | Encounter Summary ---
Author Organization [employer] Address [address] [place] [address] 7 [place] [address] Care Team Providers Care Web Ui Designer Name Role Phone Zahraa Roca DO Primary Care Provider + [phone] Christian Soria Unavailable Unavailable Reason for Visit * Reason Onset Date Comments Appointment Request 06/19/2024 Encounter Details Date Type Department Care Team ([facility] st Contact Info) Description 06/19/2024 Telephone [facility] [address] [place], [place] [phone] Zahraa Roca DO [address] [place], [place] [phone] Appointment Request Social History Tobacco Use Types [...] Description 10/10/2024 9:00 AM EDT Clinical Support [facility] [address] [place] [address] Mere Rios, HENRIK documented as of this encounter Visit Diagnoses Not on filedocumented in this encounter Additional Health Concerns Assessment Noted Time PHQ-9 Depression Total Score: 0 11/28/19 24 11:23 AM EDT documented as of this encounter Care Teams Web Ui Designer Relationship Specialty Start Date End Date Zahraa Roca DO [address] [place] [address] PCP - General Family Medicine 07/25/18 Christian Soria FNP [address] [place] [address] Nurse Practitioner Family Medicine 06/24/23 documented as of this encounter
--- OUTSIDE RECORDS SUMMARY | 2024-09-12 16:44 | XMS_ITS | Encounter Summary ---
Author Organization [employer] Address [address] [place] [address] 7 [place] [address] Care Team Providers Care Biologist Aide Name Role Phone Zahraa Roca DO Primary Care Provider + [phone] Christian Soria Unavailable Unavailable Reason for Visit * Reason Onset Date Comments PT1 01/03/2024 Encounter Details Date Type Department Care Team (Late st Contact Info) Description 01/03/2024 Telephone [facility] MED[facility] [address] [place], [place] [phone] Zahraa Roca DO [address] [place], [place] [phone] PT1 Social History Tobacco Use Types Packs/Day [...] or facility name: [facility] Facility Address: [address] [place] [address] Escort needed: Y/N: No Do you have a wheelchair: Y/N: No If yes- Manual or electric: none Visits: 7 days a week documented in this encounter Plan of Treatment Upcoming Encounters Date Type Department Care Team ([facility] st Contact Info) Description 10/10/2024 9:00 AM EDT Clinical Support [facility] [address] [place] [address] Mere Rios, HENRIK documented as of this encounter Visit Diagnoses Not on filedocumented in this encounter Additional Health Concerns Assessment Noted Time PHQ-9 Depression Total Score: 0 11/28/19 24 11:23 AM EDT documented as of this encounter Care Teams Biologist Aide Relationship Specialty Start Date End Date Zahraa Roca DO [address] [place] [address] PCP - General Family Medicine 07/25/18 Christian Soria FNP [address] [place] [address] Nurse Practitioner Family Medicine 06/24/23 documented as of this encounter
--- OUTSIDE RECORDS SUMMARY | 2024-09-12 16:44 | XMS_ITS | Encounter Summary ---
Author Organization [employer] Address [address] [facility] 7t [place] [address] Care Team Providers Care Scientific Informatics Project Leader Name Role Phone Yudijun Zahraa Primary Care Provider + [phone] Christian Soria Unavailable Unavailable Reason for Visit * Reason Onset Date Comments Recommend LEATHER BELT LOOP CUTTER Tier 1 08/29/2024 Encounter Details Date Type Department Care Team ([facility] st Contact Info) Description 08/29/2024 Telephone [facility] [address] [place] [address] Mere Rios, HENRIK Recommend LEATHER BELT LOOP CUTTER Tier 1 Social History Tobacco Use Types Packs/Day Years [...] Encounter - Mere Rios RN - 08/29/2024 7:21 AM EST What LEATHER BELT LOOP CUTTER Tier would you like this patient to be? I recommend Tier 1, please let me know if you agree or would rather patient be in another LEATHER BELT LOOP CUTTER Tier. Tier 1 = HIGH RISK, Monthly LEATHER BELT LOOP CUTTER visits Tier 2 = MODerate RISK, Q3 Month visits Tier 3 = LOW RISK = Q4-6 month visits documented in this encounter Plan of Treatment Upcoming Encounters Date Type Department Care Team (Late st Contact Info) Description 10/10/2024 9:00 AM EDT Clinical Support [facility] [address] [place] [address] Mere Rios, RN documented as of this encounter Visit Diagnoses Not on filedocumented in this encounter Additional Health Concerns Assessment Noted Time PHQ-9 Depression Total Score: 0 11/28/19 24 11:23 AM EDT documented as of this encounter Care Teams Scientific Informatics Project Leader Relationship Specialty Start Date End Date Zahraa Roca DO [address] [place] [address] PCP - General Family Medicine 07/25/18 Christian Soria FNP [address] [place] [address] Nurse Practitioner Family Medicine 06/24/23 documented as of this encounter
--- OUTSIDE RECORDS SUMMARY | 2024-09-12 16:44 | XMS_ITS | Encounter Summary ---
Author Organization [employer] Address [address] [place] [address] 7 [place] [address] Care Team Providers Care Associate Quality Engineer Name Role Phone Zahraa Roca DO Primary Care Provider [phone] Christian Soria Unavailable Unavailable Encounter Details Date Type Department Care Team (Late st Contact Info) Description 08/31/[address] [address] Zahraa Roca DO [address] [place] [id number] Social History Tobacco Use Types Packs/Day Years [...] Description 10/10/2024 9:00 AM EDT Clinical Support [address] [phone] Mere Rios RN documented as of this encounter Visit Diagnoses Not on filedocumented in this encounter Additional Health Concerns Assessment Noted Time PHQ-9 Depression Total Score: 0 08/24/19 23 2:33 PM EST documented as of this encounter Care Teams Associate Quality Engineer Relationship Specialty Start Date End Date Zahraa Roca DO [address] [place] [address] PCP - General Family Medicine 07/25/18 Christian Soria FNP [address] [place] [address] Nurse Practitioner Family Medicine 06/24/23 documented as of this encounter
--- OUTSIDE RECORDS SUMMARY | 2024-09-12 16:44 | XMS_ITS | Encounter Summary ---
Author Organization [employer] Address [address] [place] [address] 7 [place] [address] Care Team Providers Care Manager Licensing Name Role Phone Zahraa Roac DO Primary Care Provider + [phone] Christian Soria Unavailable Unavailable Reason for Visit * Reason Onset Date Comments Med Refill 08/20/2024 Encounter Details Date Type Department Care Team (Late st Contact Info) Description 08/20/2024 Refill [facility] [address] [place], [place] [phone] Zahraa Roca DO [address] [place], [place] [phone] Anxiety Social History Tobacco Use Types Packs/Day [...] 1 MG tablet To be sent to: [facility] [place], [place] - [address] [place] [address] documented in this encounter Plan of Treatment Upcoming Encounters Date Type Department Care Team (Late st Contact Info) Description 10/10/2024 9:00 AM EDT Clinical Support [facility] [address] [place] [address] Mere Rios RN documented as of this encounter Visit Diagnoses Diagnosis Anxiety Anxiety state, unspecified documented in this encounter Additional Health Concerns Assessment Noted Time PHQ-9 Depression Total Score: 0 11/28/19 24 11:23 AM EDT documented as of this encounter Care Teams Manager Licensing Relationship Specialty Start Date End Date Zahraa Roca DO [address] [place] [address] PCP - General Family Medicine 07/25/18 Christian Soria FNP [address] [place] [address] Nurse Practitioner Family Medicine 06/24/23 documented as of this encounter
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
--- OUTSIDE RECORDS SUMMARY | 2024-09-12 16:44 | XMS_ITS | Encounter Summary ---
Author Organization [employer] Address [address] [place] [address] Care Team Providers Care Beater And Pulper Feeder Name Role Phone Abelino Zahraa Primary Care Provider + [phone] Christian Soria Unavailable Unavailable Encounter Details Date Type Department Care Team (Late st Contact Info) Description 11/03/2023 Orders Only [facility] [address] [place] [address] Provider, MD Hiral Social History Tobacco Use [...] Description 10/10/2024 9:00 AM EDT Clinical Support [facility] [address] [place] [address] Mere Rios RN documented as of this [...] Time PHQ-9 Depression Total Score: 0 09/26/19 11:23 AM EST documented as of this encounter Care Teams Beater And Pulper Feeder Relationship Specialty Start Date End Date [place] [address] PCP - General Family Medicine 07/25/18 Christian Soria FNP [address] [place] [phone] Nurse Practitioner Family Medicine 06/24/23 documented as of this encounter
--- OUTSIDE RECORDS SUMMARY | 2024-09-12 16:44 | XMS_ITS | Encounter Summary ---
Author Organization [employer] Address [address] [facility] 7t [place] [address] Care Team Providers Care Testing Engineer Name Role Phone Abelino Zahraa Primary Care Provider + [phone] Christian Soria Unavailable Unavailable Encounter Details Date Type Department Care Team (Latest Contact Info) Description 09/12/2024 Travel Social History Tobacco Use Types Packs/Day Years [...] Description 10/10/2024 9:00 AM EDT Clinical Support [facility] MEDICINE [address] [place] [address] Mere Rios RN documented as of this encounter Visit Diagnoses Not on filedocumented in this encounter Additional Health Concerns Assessment Noted Time PHQ-9 Depression Total Score: 0 11/28/19 24 11:23 AM EDT documented as of this encounter Care Teams Testing Engineer Relationship Specialty Start Date End Date Zahraa Roca DO [address] [place] [address] PCP - General Family Medicine 07/25/18 Christian Soria FNP [address] [place] [address] Nurse Practitioner Family Medicine 06/24/23 documented as of this encounter
[2024-09-18 10:58] LABS: Alphahydroxymidazolam,GCMS Ur NEGATIVE; Alphahydroxytriazolam, GCMS Ur NEGATIVE; Alprazolam, GCMS Urine NEGATIVE; Aminoclonazepam, GCMS Urine NEGATIVE; Flurazepam Metabolite,GCMS Ur NEGATIVE; Lorazepam GCMS Urine NEGATIVE; Nordiazepam, GCMS Urine NEGATIVE; Oxazepam, GCMS Urine NEGATIVE; Temazepam, GCMS Urine NEGATIVE
== END 2024-09-12 16:41 | disposition home or self-care (01) ==
LOC: HO.HHCLNP 16:40
PROVIDERS: Visit Provider Family Medicine
DX: F41.9 Anxiety disorder, unspecified (principal)
CPT/HCPCS: 80346

== ENCOUNTER 2024-09-13 08:17 | Outpatient (AMB) | payer MEDICARE, MEDICAID, SELFPAY ==
--- OUTSIDE RECORDS SUMMARY | 2024-09-13 08:29 | XMS_ITS | Encounter Summary ---
Author Organization [employer] Address [address] [place] [address] [facility] [place] [address] Care Team Providers Care Appraisal Technician Name Role Phone Zahraa Roca DO Primary Care Provider + [phone] Christian Soria Unavailable Unavailable Reason for Visit * Reason Onset Date Comments Med Refill 12/31/2022 Encounter Details Date Type Department Care Team (Late st Contact Info) Description 12/31/2022 Telephone [facility] MEDICINE 230 [place] [address] Zahraa Roca DO [address] [place], [place] [phone] Med Refill Social History Tobacco Use Types [...] Miscellaneous Notes * Telephone Encounter - Alexa Shehean - 12/31/2022 10:32 AM EDT Tc from pt requesting medication refill for clonazePAM (KlonoPIN) 1 MG tablet documented in this encounter Plan of Treatment Upcoming Encounters Date Type Department Care Team (Late st Contact Info) Description 10/10/2024 9:00 AM EDT Clinical Support [facility] MEDICINE [address] [place] [address] Mere Rios, HENRIK documented as of this encounter Visit Diagnoses Not on filedocumented in this encounter Additional Health Concerns Assessment Noted Time PHQ-9 Depression Total Score: 0 08/24/19 23 2:33 PM EST documented as of this encounter Care Teams Appraisal Technician Relationship Specialty Start Date End Date aZhraa Roca DO [address] [place] [address] PCP - General Family Medicine 07/25/18 Christian Soria FNP [address] [place] [address] Nurse Practitioner Family Medicine 06/24/23 documented as of this encounter
--- OUTSIDE RECORDS SUMMARY | 2024-09-13 08:29 | XMS_ITS | Encounter Summary ---
Author Organization [email or web address] Address [address] [place] [address] 7 [place] [address] Care Team Providers Care Senior Net Software Engineer Name Role Phone Zahraa Roca DO Primary Care Provider + [phone] Christian Soria Unavailable Unavailable Reason for Visit * Reason Onset Date Comments PT-1 04/17/2024 Encounter Details Date Type Department Care Team (Late st Contact Info) Description 04/17/2024 Telephone [facility] MEDICINE 230 [place], [place] [phone] Zahraa Roca DO 230 [place], [place] [phone] PT-1 Social History Tobacco Use Types Packs/Day [...] Y/N: Yes Provider name or facility name: [facility] Facility Address: [address] [place] [address] Escort needed: Y/N: No Do you have a wheelchair: Y/N: No If yes- Manual or electric: N/A Visits: Twice a month documented in this encounter Plan of Treatment Upcoming Encounters Date Type Department Care Team ([facility] st Contact Info) Description 10/10/2024 9:00 AM EDT Clinical Support [facility] MEDICINE [address] [place] [address] [phone] Mere Rios RN documented as of this encounter Visit Diagnoses Not on filedocumented in this encounter Additional Health Concerns Assessment Noted Time PHQ-9 Depression Total Score: 0 11/28/19 24 11:23 AM EDT documented as of this encounter Care Teams Senior Net Software Engineer Relationship Specialty Start Date End Date Zahraa Roca DO [address] [place] [address] PCP - General Family Medicine 07/25/18 Christian Soria FNP [address] [place] [address] Nurse Practitioner Family Medicine 06/24/23 documented as of this encounter
--- OUTSIDE RECORDS SUMMARY | 2024-09-13 08:29 | XMS_ITS | Encounter Summary ---
Author Organization [employer] Address [address] [place] [address] 7 [place] [address] Care Team Providers Care Technology Assistant Name Role Phone Zahraa Roca DO Primary Care Provider + [phone] Christian Soria Unavailable Unavailable Reason for Visit * Reason Onset Date Comments PT1 01/03/2024 Encounter Details Date Type Department Care Team (Late st Contact Info) Description 01/03/2024 Telephone [facility] MEDICINE [address] [place], [place] [phone] Zahraa Roca DO [address] [place], [place] [phone] PT1 Social History Tobacco Use Types Packs/Day [...] or facility name: [facility] Facility Address: [address] [place] [address] Escort needed: Y/N: No Do you have a wheelchair: Y/N: No If yes- Manual or electric: none Visits: 7 days a week documented in this encounter Plan of Treatment Upcoming Encounters Date Type Department Care Team ([facility] st Contact Info) Description 10/10/2024 9:00 AM EDT Clinical Support [facility] MEDICINE [address] [place] [address] Mere Rios, HENRIK documented as of this encounter Visit Diagnoses Not on filedocumented in this encounter Additional Health Concerns Assessment Noted Time PHQ-9 Depression Total Score: 0 11/28/19 24 11:23 AM EDT documented as of this encounter Care Teams Technology Assistant Relationship Specialty Start Date End Date Zahraa Roca DO [address] [place] [address] PCP - General Family Medicine 07/25/18 Christian Soria FNP [address] [place] [address] Nurse Practitioner Family Medicine 06/24/23 documented as of this encounter
--- OUTSIDE RECORDS SUMMARY | 2024-09-13 08:29 | XMS_ITS | Encounter Summary ---
Author Organization [employer] Address [address] [place] [address] 7 [place] [address] Care Team Providers Care Trailer Truck Driver Name Role Phone Zahraa Roca DO Primary Care Provider + [phone] Christian Soria Unavailable Unavailable Reason for Visit * Reason Comments Med Refill Encounter Details Date Type Department Care Team (Late st Contact Info) Description 12/31/2022 Refill [facility] MEDICINE [address] [place] [address] Christian Soria FNP Anxiety Social History Tobacco [...] Description 10/10/2024 9:00 AM EDT Clinical Support [facility] MEDICINE [address] [place] [address] Mere Rios RN documented as of this encounter Visit Diagnoses Diagnosis Anxiety Anxiety state, unspecified documented in this encounter Additional Health Concerns Assessment Noted Time PHQ-9 Depression Total Score: 0 08/24/19 23 2:33 PM EST documented as of this encounter Care Teams Trailer Truck Driver Relationship Specialty Start Date End Date Zahraa Roca DO 230 [place] [address] PCP - General Family Medicine 07/25/18 Christian Soria FNP [address] [place] [address] Nurse Practitioner Family Medicine 06/24/23 documented as of this encounter
--- OUTSIDE RECORDS SUMMARY | 2024-09-13 08:29 | XMS_ITS | Encounter Summary ---
Author Organization [employer] Address [address] [place] [address] 7 [place] [address] Care Team Providers Care Membership Secretary Name Role Phone Zahraa Roca DO Primary Care Provider + [phone] Christian Soria Unavailable Unavailable Reason for Visit * Reason Onset Date Comments Appointment Request 08/03/2024 Encounter Details Date Type Department Care Team (Late st Contact Info) Description 08/03/2024 Telephone [facility] MEDICINE [address] [place], [place] [phone] Zahraa Roca DO 230 [place], [place] [phone] Appointment Request Social History Tobacco Use Types [...] missed appointment with dermatology. Contact pt at [phone] documented in this encounter Plan of Treatment Upcoming Encounters Date Type Department Care Team (Late st Contact Info) Description 10/10/2024 9:00 AM EDT Clinical Support [facility] MEDICINE [address] [place] [address] Mere Rios, HENRIK documented as of this encounter Visit Diagnoses Not on filedocumented in this encounter Additional Health Concerns Assessment Noted Time PHQ-9 Depression Total Score: 0 11/28/19 24 11:23 AM EDT documented as of this encounter Care Teams Membership Secretary Relationship Specialty Start Date End Date Zharaa Roca DO [address] [place] [address] PCP - General Family Medicine 07/25/18 Christian Soria FNP [address] [place] [address] Nurse Practitioner Family Medicine 06/24/23 documented as of this encounter
--- OUTSIDE RECORDS SUMMARY | 2024-09-13 08:29 | XMS_ITS | Encounter Summary ---
Author Organization [employer] Address [address] [place] [address] 7 [place] [address] Care Team Providers Care Ornamental Iron Erector Name Role Phone Zahraa Roca DO Primary Care Provider + [phone] Christian Soria Unavailable Unavailable Reason for Visit * Reason Onset Date Comments Appt question 08/09/2024 Encounter Details Date Type Department Care Team (Late st Contact Info) Description 08/09/2024 Telephone [facility] MEDICINE [address] [place], [place] [phone] Zahraa Roca DO 230 [place], [place] [phone] Appt question Social History Tobacco Use Types [...] aug appt its for that. Any questions [phone] documented in this encounter Plan of Treatment Upcoming Encounters Date Type Department Care Team (Late st Contact Info) Description 10/10/2024 9:00 AM EDT Clinical Support [facility] MEDICINE [address] [place] [address] Mere Rios RN documented as of this encounter Visit Diagnoses Not on filedocumented in this encounter Additional Health Concerns Assessment Noted Time PHQ-9 Depression Total Score: 0 11/28/19 24 11:23 AM EDT documented as of this encounter Care Teams Ornamental Iron Erector Relationship Specialty Start Date End Date Zahraa Roca DO [address] [place] [address] PCP - General Family Medicine 07/25/18 Christian Soria FNP [address] [place] [address] Nurse Practitioner Family Medicine 06/24/23 documented as of this encounter
--- OUTSIDE RECORDS SUMMARY | 2024-09-13 08:29 | XMS_ITS | Encounter Summary ---
Author Organization [employer] Address [address] [facility] 7t [place] [address] Care Team Providers Care Filling Winder Name Role Phone Abelino Zahraa CANTOR Primary Care Provider + [phone] Christian Soria Unavailable Unavailable Encounter Details Date Type Department Care Team (Late st Contact Info) Description 04/17/2024 Telephone [facility] [address] [place] [address] Lore Vargas DDS [address] [place] [address] Social History Tobacco Use Types Packs/Day Years [...] Description 10/10/2024 9:00 AM EDT Clinical Support [facility] MEDICINE [address] [place] [address] Mere Rios, HENRIK documented as of this encounter Visit Diagnoses Not on filedocumented in this encounter Additional Health Concerns Assessment Noted Time PHQ-9 Depression Total Score: 0 11/28/19 24 11:23 AM EDT documented as of this encounter Care Teams Filling Winder Relationship Specialty Start Date End Date Zahraa Roca DO [address] [place] [address] PCP - General Family Medicine 07/25/18 Christian Soria FNP [address] [place] [address] Nurse Practitioner Family Medicine 06/24/23 documented as of this encounter
--- OUTSIDE RECORDS SUMMARY | 2024-09-13 08:29 | XMS_ITS | Encounter Summary ---
Author Organization [employer] Address [address] [place] [address] 7 [place] [address] Care Team Providers Care Linux Administrator Name Role Phone SuryaZahraa lee Primary Care Provider + [phone] Christian Soria Unavailable Unavailable Reason for Visit * Reason Comments Med Refill Encounter Details Date Type Department Care Team (Late st Contact Info) Description 12/19/2022 Refill [facility] MEDICINE [address] [place] [address] Christian Soria FNP Anxiety Social History Tobacco [...] Clinical Support [facility] MEDICINE [address] [place] [address] Mere Rios RN documented as of this encounter Visit Diagnoses Diagnosis Anxiety Anxiety state, unspecified documented in this encounter Additional Health Concerns Assessment Noted Time PHQ-9 Depression Total Score: 0 08/24/19 23 2:33 PM EST documented as of this encounter Care Teams Linux Administrator Relationship Specialty Start Date End Date Zahraa Roca DO [address] [place] [address] PCP - General Family Medicine 07/25/18 Christain Soria FNP [address] [place] [address] Nurse Practitioner Family Medicine 06/24/23 documented as of this encounter
--- OUTSIDE RECORDS SUMMARY | 2024-09-13 08:29 | XMS_ITS | Encounter Summary ---
Author Organization [employer] Address [address] [place] [address] 7 [place] [address] Care Team Providers Care Agricultural Specialist Name Role Phone Zahraa Roca DO Primary Care Provider + [phone] Christian Soria Unavailable Unavailable Reason for Visit * Reason Onset Date Comments PT-1 03/15/2024 Encounter Details Date Type Department Care Team (Late st Contact Info) Description 03/15/2024 Telephone [facility] MEDICINE 230 [place], [place] [phone] Zahraa Roca DO 230 [place], [place] [phone] PT-1 Social History Tobacco Use Types Packs/Day [...] Y/N: Yes Provider name or facility name: [facility] Facility Address: [address] [place] [address] Escort needed: Y/N: No Do you have a wheelchair: Y/N: No If yes- Manual or electric: no Visits: 3 documented in this encounter Plan of Treatment Upcoming Encounters Date Type Department Care Team (Late st Contact Info) Description 10/10/2024 9:00 AM EDT Clinical Support [facility] MEDICINE [address] [place] [address] Mere Rios RN documented as of this encounter Visit Diagnoses Not on filedocumented in this encounter Additional Health Concerns Assessment Noted Time PHQ-9 Depression Total Score: 0 11/28/19 24 11:23 AM EDT documented as of this encounter Care Teams Agricultural Specialist Relationship Specialty Start Date End Date Zahraa Roca DO [address] [place] [address] PCP - General Family Medicine 07/25/18 Christian Soria FNP [address] [place] [address] Nurse Practitioner Family Medicine 06/24/23 documented as of this encounter
--- OUTSIDE RECORDS SUMMARY | 2024-09-13 08:30 | XMS_ITS | Encounter Summary ---
Author Organization [employer] Address [address] [place] [address] [facility] [place] [address] Care Team Providers Care Salon Supervisor Name Role Phone Zahraa Roca DO Primary Care Provider + [phone] Christian Soria Unavailable Unavailable Encounter Details Date Type Department Care Team (Late st Contact Info) Description 07/06/2022 Orders Only [facility] PEDS [address] [place] [address] Zahraa Andino LPN Social History Tobacco Use [...] 9:00 AM EDT Clinical Support [facility] MEDICINE [address] [place] [address] Mere Rios RN documented as of this encounter Visit Diagnoses Not on filedocumented in this encounter Care Teams Salon Supervisor Relationship Specialty Start Date End Date Zahraa Roca DO [address] [place] [address] PCP - General Family Medicine 07/25/18 Christian Soria FNP [address] [place] [address] [place] [address] Nurse Practitioner Family Medicine 06/24/23 documented as of this encounter
--- OUTSIDE RECORDS SUMMARY | 2024-09-13 08:30 | XMS_ITS | Encounter Summary ---
Author Organization [employer] Address [address] [facility] 7t [place] [address] Care Team Providers Care Reinforcing Steel Placer Name Role Phone Yudijun Zahraa Primary Care Provider + [phone] Christian Soria Unavailable Unavailable Reason for Visit * Reason Onset Date Comments Recommend COMMISSIONER OF CONCILIATION Tier 1 08/29/2024 Encounter Details Date Type Department Care Team ([facility] st Contact Info) Description 08/29/2024 Telephone [facility] MEDICINE [address] [place] [address] Mere Rios, HENRIK Recommend COMMISSIONER OF CONCILIATION Tier 1 Social History Tobacco Use Types [...] RN - 08/29/2024 7:21 AM EST What COMMISSIONER OF CONCILIATION Tier would you like this patient to be? I recommend Tier 1, please let me know if you agree or would rather patient be in another COMMISSIONER OF CONCILIATION Tier. Tier 1 = HIGH RISK, Monthly COMMISSIONER OF CONCILIATION visits Tier 2 = MODerate RISK, Q3 Month visits Tier 3 = LOW RISK = Q4-6 month visits documented in this encounter Plan of Treatment Upcoming Encounters Date Type Department Care Team (Late st Contact Info) Description 10/10/2024 9:00 AM EDT Clinical Support [facility] MEDICINE [address] [place] [address] Mere Rios, RN documented as of this encounter Visit Diagnoses Not on filedocumented in this encounter Additional Health Concerns Assessment Noted Time PHQ-9 Depression Total Score: 0 11/28/19 24 11:23 AM EDT documented as of this encounter Care Teams Reinforcing Steel Placer Relationship Specialty Start Date End Date Zahraa Roca DO [address] [place] [address] PCP - General Family Medicine 07/25/18 Christian Soria FNP [address] [place] [address] Nurse Practitioner Family Medicine 06/24/23 documented as of this encounter
--- OUTSIDE RECORDS SUMMARY | 2024-09-13 08:30 | XMS_ITS | Encounter Summary ---
Author Organization [employer] Address [address] [place] [address] 7 [place] [address] Care Team Providers Care Service Desk Director Name Role Phone Abelino Zahraa Primary Care Provider + [phone] Christian Soria Unavailable Unavailable Reason for Visit * Reason Comments DICTAPHONE TRANSCRIBER Initial DICTAPHONE TRANSCRIBER Initial Encounter Details Date Type Department Care Team (Latest Contact Info) Description 09/12/2024 9:30 AM EST Clinical Support [facility] MEDICINE [address] [place] [address] Mere Rios RN Anxiety (Primary Dx); Opioid [...] AM EST S: Pt here for initial DICTAPHONE TRANSCRIBER Visit. Prescribed Clonazepam 1mg QD. States he [...] is apart of a methadone clinic in [place]. O: DICTAPHONE TRANSCRIBER Tier 1. Pt currently prescribed Clonazepam 1m QD. BINDERY MACHINE TENDER verified today. Rx last filled on 08/20/24. [...] count. Last PCP visit was 06/06/24. A: DICTAPHONE TRANSCRIBER Contract Initiation Visit, Chronic BZO use r/t anxiety. P: DICTAPHONE TRANSCRIBER contract reviewed and signed, pt provided copy. Pt to continue taking medication only as prescribed; Next DICTAPHONE TRANSCRIBER RV appointment scheduled for 10/10/24 @ 9am, F/U sooner PRN. Appointment reminder given. Pt verbalized understanding and agreed to plan. documented in this encounter Plan of Treatment Upcoming Encounters Date Type Department Care Team (Late st Contact Info) Description 10/10/2024 9:00 AM EDT Clinical Support [facility] [address] [place] [address] Mere Rios, RN Scheduled Orders Name Type Priority Associated Diagnoses Orde r Schedule Drug Monitoring, Benzodiazepines, Quantitative, Urine Lab Routine Anxiety Ordered: 09/12/2024 documented as of this encounter Procedures Procedure Name Priority Date/Time Associated Diagnosis Comments POCT MARIO-14 URINE DRUG SCREEN Routine 09/12/2024 9:54 AM EST Opioid dependence on agonist therapy ([facility]) documented in this encounter Results * (ABNORMAL) POCT MARIO-14 Urine Drug Screen (09/12/2024 9:54 AM EST) THC Positive Benzodiazepines Screen, Urine Negative Methadone Screen, Urine Positive Urine Urine specimen obtained by clean catch procedure / Unknown 09/12/2024 9:54 AM EST Narrative Mere Rios RN - 09/12/2024 9:54 AM EST UTOX cup Lot#[id number] Exp. 03/13/26 Internal Pass Control Zahraa Roca DO POINT OF CARE TEST ENTER/JOANNA T ORDERABLES Final Result documented in this encounter Visit Diagnoses Diagnosis Anxiety- Primary Anxiety state, unspecified Opioid dependence on agonist therapy (CMS/HCC) documented in this encounter Additional Health Concerns Assessment Noted Time PHQ-9 Depression Total Score: 0 11/28/19 24 11:23 AM EDT documented as of this encounter Care Teams Service Desk Director Relationship Specialty Start Date End Date Zahraa Roca DO [address] [place] [address] PCP - General Family Medicine 07/25/18 Christian Soria FNP [address] [place] [address] Nurse Practitioner Family Medicine 06/24/23 documented as of this encounter
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
--- OUTSIDE RECORDS SUMMARY | 2024-09-13 08:30 | XMS_ITS | Encounter Summary ---
Author Organization [employer] Address [address] [place] [address] 7 [place] [address] Care Team Providers Care Welt Beater Name Role Phone Zahraa Roca DO Primary Care Provider + [phone] Christian Soria Unavailable Unavailable Reason for Visit * Reason Onset Date Comments PT-1 07/13/2024 Encounter Details Date Type Department Care Team (Late st Contact Info) Description 07/13/2024 Telephone [facility] [address] [place], [place] [phone] Zahraa Roca DO [address] [place], [place] [phone] PT-1 Social History Tobacco Use Types Packs/Day [...] [facility] [address] [place] [address] Mere Rios RN documented as of this encounter Visit Diagnoses Not on filedocumented in this encounter Additional Health Concerns Assessment Noted Time PHQ-9 Depression Total Score: 0 11/28/19 24 11:23 AM EDT documented as of this encounter Care Teams Welt Beater Relationship Specialty Start Date End Date Zahraa Roca DO [address] [place] [phone] PCP - General Family Medicine 07/25/18 Christian Soria FNP [address] [place] [phone] Nurse Practitioner Family Medicine 06/24/23 documented as of this encounter
--- OUTSIDE RECORDS SUMMARY | 2024-09-13 08:30 | XMS_ITS | Encounter Summary ---
Author Organization [employer] Address [address] [facility] [address] [place] [address] Care Team Providers Care Anthropological Linguist Name Role Phone Abelino Zahraa Primary Care Provider + [phone] Christian Soria Unavailable Unavailable Reason for Visit * Reason Onset Date Comments Med Refill 09/12/2024 Encounter Details Date Type Department Care Team (Late st Contact Info) Description 09/12/2024 Refill [facility] [address] [place] [address] Mere Rios RN Anxiety Social History Tobacco [...] - 09/12/2024 10:03 AM EST Pt had ARCHITECTURAL PRACTICE MANAGER Initial appt today, Tier 1 UTOX Neg BZO, sent out for confirmation Pt had 2 Clonazepam remaining, anticipated 4. States he thinks 2 are under his dresser still. He attends methadone clinic in [place]. documented in this encounter Plan of Treatment Upcoming Encounters Date Type Department Care Team (Late st Contact Info) Description 10/10/2024 9:00 AM EDT Clinical Support [facility] [address] [place] [address] Mere Rios, RN documented as of this encounter Visit Diagnoses Diagnosis Anxiety Anxiety state, unspecified documented in this encounter Additional Health Concerns Assessment Noted Time PHQ-9 Depression Total Score: 0 11/28/19 24 11:23 AM EDT documented as of this encounter Care Teams Anthropological Linguist Relationship Specialty Start Date End Date Zahraa Roca DO [address] [place] [address] PCP - General Family Medicine 07/25/18 Christian Soria FNP [address] [place] [address] Nurse Practitioner Family Medicine 06/24/23 documented as of this encounter
--- OUTSIDE RECORDS SUMMARY | 2024-09-13 08:30 | XMS_ITS | Encounter Summary ---
Author Organization [employer] Address [address] [place] [address] [place] [address] Care Team Providers Care Acidizer Helper Name Role Phone Zahraa Roca DO Primary Care Provider + [phone] Christian Soria Unavailable Unavailable Encounter Details Date Type Department Care Team (Late st Contact Info) Description 08/12/2022 Orders Only [facility] [address] [place] [address] Zahraa Andino LPN Social History Tobacco Use [...] 9:00 AM EDT Clinical Support [facility] MEDICINE [address] [place] [address] Mere Rios RN documented as of this encounter Visit Diagnoses Not on filedocumented in this encounter Care Teams Acidizer Helper Relationship Specialty Start Date End Date Zahraa Roca DO [address] [place] [address] PCP - General Family Medicine 07/25/18 Christian Soria FNP [address] [place] [address] [place] [address] Nurse Practitioner Family Medicine 06/24/23 documented as of this encounter
--- OUTSIDE RECORDS SUMMARY | 2024-09-13 08:30 | XMS_ITS | Encounter Summary ---
Author Organization [employer] Address [address] [place] [address] 7 h Floor [address] Care Team Providers Care Facilities Clerk Name Role Phone Zahraa Roca DO Primary Care Provider + [phone] Christian Soria Unavailable Unavailable Reason for Visit * Reason Onset Date Comments Appointment Request 06/19/2024 Encounter Details Date Type Department Care Team ([facility] st Contact Info) Description 06/19/2024 Telephone [facility] MED[facility]INE [address] [place], [place] [phone] Zahraa Roca DO [address] [place], [place] [phone] Appointment Request Social History Tobacco Use Types [...] Description 10/10/2024 9:00 AM EDT Clinical Support [facility] [address] [place] [address] Mere Rios, HENRIK documented as of this encounter Visit Diagnoses Not on filedocumented in this encounter Additional Health Concerns Assessment Noted Time PHQ-9 Depression Total Score: 0 11/28/19 24 11:23 AM EDT documented as of this encounter Care Teams Facilities Clerk Relationship Specialty Start Date End Date Zahraa Roca DO [address] [place] [address] PCP - General Family Medicine 07/25/18 Christian Soria FNP [address] [place] [address] Nurse Practitioner Family Medicine 06/24/23 documented as of this encounter
--- OUTSIDE RECORDS SUMMARY | 2024-09-13 08:30 | XMS_ITS | Encounter Summary ---
Author Organization [employer] Address [address] [place] [address] 7 [place] [address] Care Team Providers Care Rehab Therapy Manager Name Role Phone YudiZahraa barahona Primary Care Provider + [phone] Christian Soria Unavailable Unavailable Reason for Visit * Reason Onset Date Comments NCNS BOX MAKER Initial X1 08/29/2024 Encounter Details Date Type Department Care Team (Late st Contact Info) Description 08/29/2024 Telephone [facility] MEDICINE [address] [place] [address] Mere Rios RN NCNS BOX MAKER Initial X1 Social History Tobacco Use Types [...] 10:17 AM EST Pt was NCNS for BOX MAKER Initial appt today. TC to patient, patient apologized for missing appt. States he has many appts currently and he was waiting on his ride. BOX MAKER Initial rescheduled for 09/12/24 @ 9:30am. documented in this encounter Plan of Treatment Upcoming Encounters Date Type Department Care Team (Late st Contact Info) Description 10/10/2024 9:00 AM EDT Clinical Support [facility] MEDICINE [address] [place] [address] Mere Rios, RN documented as of this encounter Visit Diagnoses Not on filedocumented in this encounter Additional Health Concerns Assessment Noted Time PHQ-9 Depression Total Score: 0 11/28/19 24 11:23 AM EDT documented as of this encounter Care Teams Rehab Therapy Manager Relationship Specialty Start Date End Date Zahraa Roca DO [address] [place] [address] PCP - General Family Medicine 07/25/18 Christian Soria FNP [address] [place] [address] Nurse Practitioner Family Medicine 06/24/23 documented as of this encounter
--- OUTSIDE RECORDS SUMMARY | 2024-09-13 08:30 | XMS_ITS | Encounter Summary ---
Author Organization [employer] Address [address] [place] [address] 7 [place] [address] Care Team Providers Care Pipe Manufacture Supervisor Name Role Phone Zahraa Roca DO Primary Care Provider + [phone] Christian Soria Unavailable Unavailable Reason for Visit * Reason Onset Date Comments Patient message 09/12/2024 Encounter Details Date Type Department Care Team ([facility] st Contact Info) Description 09/12/2024 Telephone [facility] MED[facility]INE 230 [place] [address] Zahraa Roca DO [address] [place], [place] [phone] Patient message Social History Tobacco Use Types [...] 1:08 PM EST TC placed to patient [phone] in regards to below message. Patient reports he is seeing his vascular doctor tomorrow at [facility] and he will discuss the spot on the R thigh with the vascular provider.Patient reports he has applied ice to the lump on his back and it has decreased. Patient informed if the lump does not completely resolve or increases in size again, he should come to the [facility] to be evaluated. Patient verbalized [...] on my spine, I will go to [facility] for that documented in this encounter Plan of Treatment Upcoming Encounters Date Type Department Care Team (Late st Contact Info) Description 10/10/2024 9:00 AM EDT Clinical Support [facility] MED[facility]INE [address] [place] [address] Mere Rios, RN documented as of this encounter Visit Diagnoses Not on filedocumented in this encounter Additional Health Concerns Assessment Noted Time PHQ-9 Depression Total Score: 0 11/28/19 24 11:23 AM EDT documented as of this encounter Care Teams Pipe Manufacture Supervisor Relationship Specialty Start Date End Date Zahraa Roca DO [address] [place] [address] PCP - General Family Medicine 07/25/18 Christian Soria FNP [address] [place] [address] Nurse Practitioner Family Medicine 06/24/23 documented as of this encounter
--- OUTSIDE RECORDS SUMMARY | 2024-09-13 08:30 | XMS_ITS | Encounter Summary ---
Author Organization [employer] Address [address] [facility] 7t [place] [address] Care Team Providers Care Physical Therapy Supervisor Name Role Phone Abelino Zahraa Primary Care Provider + [phone] Christian Soria Unavailable Unavailable Encounter Details Date [...] Description 10/10/2024 9:00 AM EDT Clinical Support [facility] MEDICINE [address] [place] [address] Mere Rios RN documented as of this encounter Visit Diagnoses Not on filedocumented in this encounter Additional Health Concerns Assessment Noted Time PHQ-9 Depression Total Score: 0 11/28/19 24 11:23 AM EDT documented as of this encounter Care Teams Physical Therapy Supervisor Relationship Specialty Start Date End Date Zahraa Roca DO [address] [place] [address] PCP - General Family Medicine 07/25/18 Christian Soria FNP [address] [place] [address] Nurse Practitioner Family Medicine 06/24/23 documented as of this encounter
--- OUTSIDE RECORDS SUMMARY | 2024-09-13 08:31 | XMS_ITS | Encounter Summary ---
Author Organization [employer] Address [address] [place] [address] 7 [place] [address] Care Team Providers Care Cupola Patcher Name Role Phone Zahraa Roca DO Primary Care Provider + [phone] Christian Soria Unavailable Unavailable Encounter Details Date Type Department Care Team (Late st Contact Info) Description 10/21/2022 Orders Only [facility] & PEDS [address] [place], [place] [phone] Zahraa Andino LPN Social History Tobacco Use [...] 9:00 AM EDT Clinical Support [facility] MEDICINE 230 [place] [address] Mere Rios RN documented as of this encounter Visit Diagnoses Not on filedocumented in this encounter Additional Health Concerns Assessment Noted Time PHQ-9 Depression Total Score: 0 08/24/19 23 2:33 PM EST documented as of this encounter Care Teams Cupola Patcher Relationship Specialty Start Date End Date Zahraa Roca DO 230 [place], [place] [phone] PCP - General Family Medicine 07/25/18 Christian Soria FNP [address] [place] [address] Nurse Practitioner Family Medicine 06/24/23 documented as of this encounter
--- OUTSIDE RECORDS SUMMARY | 2024-09-13 08:31 | XMS_ITS | Encounter Summary ---
Author Organization [employer] Address [address] [place] [address] 7 [place] [address] Care Team Providers Care Lab Coordinator Name Role Phone Abelino Zahraa Primary Care Provider + [phone] Christian Soria Unavailable Unavailable Reason for Visit * Reason Onset Date Comments REGIONAL SALES DIRECTOR Initial completed today 09/12/2024 UTOX Neg BZO. sent out 09/12/2024 Encounter Details Date Type Department Care Team ([facility] st Contact Info) Description 09/12/2024 Telephone [facility] 230 [place] [address] Mere Rios RN REGIONAL SALES DIRECTOR Initial completed today; UTOX Neg BZO. sent [...] - 09/12/2024 10:05 AM EST Pt had REGIONAL SALES DIRECTOR Initial appt today UTOX Neg BZO, sent out for confirmation Pt had 2 Clonazepam remaining, anticipated 4. States he thinks 2 are under his dresser still. documented in this encounter Plan of Treatment Upcoming Encounters Date Type Department Care Team (Late st Contact Info) Description 10/10/2024 9:00 AM EDT Clinical Support [facility] [address] [place] [address] Mere Rios, RN documented as of this encounter Visit Diagnoses Not on filedocumented in this encounter Additional Health Concerns Assessment Noted Time PHQ-9 Depression Total Score: 0 11/28/19 24 11:23 AM EDT documented as of this encounter Care Teams Lab Coordinator Relationship Specialty Start Date End Date Zahraa Roca DO 230 [place] [address] PCP - General Family Medicine 07/25/18 Christian Soria FNP 230 [place] [address] Nurse Practitioner Family Medicine 06/24/23 documented as of this encounter
--- OUTSIDE RECORDS SUMMARY | 2024-09-13 08:31 | XMS_ITS | Encounter Summary ---
Author Organization [employer] Address [address] [place] [address] 7 [place] [address] Care Team Providers Care Production Expert Name Role Phone Zahraa Roca DO Primary Care Provider [phone] Christian Soria Unavailable Unavailable Encounter Details Date Type Department Care Team (Late st Contact Info) Description 08/31/[address] [address] Zahraa Roca DO [address] [place] [address] Social History Tobacco Use Types Packs/Day Years [...] Description 10/10/2024 9:00 AM EDT Clinical Support [address] [phone] Mere Rios RN documented as of this encounter Visit Diagnoses Not on filedocumented in this encounter Additional Health Concerns Assessment Noted Time PHQ-9 Depression Total Score: 0 08/24/19 23 2:33 PM EST documented as of this encounter Care Teams Production Expert Relationship Specialty Start Date End Date Zahraa Roca DO 230 [place] [address] PCP - General Family Medicine 07/25/18 Christian Soria FNP [address] [place] [address] Nurse Practitioner Family Medicine 06/24/23 documented as of this encounter
--- OUTSIDE RECORDS SUMMARY | 2024-09-13 08:31 | XMS_ITS | Encounter Summary ---
Author Organization [employer] Address [address] [facility] [address] 7t [place] [address] Care Team Providers Care Machine Stemmer Name Role Phone Abelino Zahraa Primary Care Provider + [phone] Christian Soria Unavailable Unavailable Encounter Details Date Type Department Care Team (Late st Contact Info) Description 11/03/2023 Orders Only [facility] MEDICINE 230 [place] [address] Provider, MD Hiral Social History Tobacco Use [...] Description 10/10/2024 9:00 AM EDT Clinical Support [facility] MEDICINE 230 [place] [address] Mere Rios RN documented as of this [...] documented as of this encounter Care Teams Machine Stemmer Relationship Specialty Start Date End Date [place] [address] PCP - General Family Medicine 07/25/18 Christian Soria FNP [address] [place] [address] Nurse Practitioner Family Medicine 06/24/23 documented as of this encounter
--- OUTSIDE RECORDS SUMMARY | 2024-09-13 08:31 | XMS_ITS | Encounter Summary ---
Author Organization [employer] Address [address] [place] [address] 7 [place] [address] Care Team Providers Care Newsagent Name Role Phone Zahraa Roca DO Primary Care Provider + [phone] Christian Soria Unavailable Unavailable Encounter Details Date Type Department Care Team (Late st Contact Info) Description 09/20/2022 Orders Only [facility] MED & PEDS [address] [place], [place] [phone] Zahraa Andino LPN Social History Tobacco Use [...] Description 10/10/2024 9:00 AM EDT Clinical Support [facility] MEDICINE 230 [place] [address] Mere Rios RN documented as of this encounter Visit Diagnoses Not on filedocumented in this encounter Additional Health Concerns Assessment Noted Time PHQ-9 Depression Total Score: 0 08/24/19 23 2:33 PM EST documented as of this encounter Care Teams Newsagent Relationship Specialty Start Date End Date Zahraa Rcoa DO 230 [place], [place] [phone] PCP - General Family Medicine 07/25/18 Christian Soria FNP [address] [place] [address] Nurse Practitioner Family Medicine 06/24/23 documented as of this encounter
--- OUTSIDE RECORDS SUMMARY | 2024-09-13 08:31 | XMS_ITS | Encounter Summary ---
Author Organization [employer] Address [address] [place] [address] 7 [place] [address] Care Team Providers Care Pharmacy Operations Coordinator Name Role Phone Zahraa Roca DO Primary Care Provider + [phone] Christian Soria Unavailable Unavailable Reason for Visit * Reason Onset Date Comments Med Refill 08/20/2024 Encounter Details Date Type Department Care Team (Late st Contact Info) Description 08/20/2024 Refill [facility] MEDICINE [address] [place], [place] [phone] Zahraa Roca DO [address] [place], [place] [phone] Anxiety Social History Tobacco Use Types Packs/Day [...] 1 MG tablet To be sent to: [facility] - [place], [place] - [address] [place] [address] documented in this encounter Plan of Treatment Upcoming Encounters Date Type Department Care Team (Late st Contact Info) Description 10/10/2024 9:00 AM EDT Clinical Support [facility] MEDICINE [address] [place] [address] Mere Rios RN documented as of this encounter Visit Diagnoses Diagnosis Anxiety Anxiety state, unspecified documented in this encounter Additional Health Concerns Assessment Noted Time PHQ-9 Depression Total Score: 0 11/28/19 24 11:23 AM EDT documented as of this encounter Care Teams Pharmacy Operations Coordinator Relationship Specialty Start Date End Date Zahraa Roca DO [address] [place] [address] PCP - General Family Medicine 07/25/18 Christian Soria FNP [address] [place] [address] Nurse Practitioner Family Medicine 06/24/23 documented as of this encounter
[2024-09-13 08:52] VITALS: BMI 23.7
--- NOTE | 2024-09-13 08:52 | A.OFFVIS_ITS ---
Vital Signs 09/13/24 08:52 Height 5 ft 10 in Weight 165 lb BMI 23.7 Intake Visit Reasons: follow up US 08/15/2024 Intake Note: follow up bilateral LE US 08/15/24. Pt states he has coldness and cramping in bilateral LE, also states he gets discoloration on both legs. pt has pain over his right ankle. Sales And Marketing Assistant Required: No Accompanied by: Self / Same As Patient Allergies No Known Allergies Allergy (Verified 09/13/24 08:56) HPI HPI follow up 08/15/2024: Details: Complex 54-year-old gentleman presents for evaluation regarding venous disease and lower extremity swelling. He does have a significant previous complex history including alcohol dependence, chronic anemia, chronic back pain and hip pain for which he is seen orthopedics for as well. He has persistent lower ext remity swelling. He now presents to us for routine follow-up with venous insufficiency testing of note he smokes 1-2 cigarettes a day and is a nondiabetic. Has used compression with minimal relief. [facility] Medical History Rash Family history of pseudocholinesterase deficiency Alcohol dependence in remission Hx of substance abuse History of COVID-19 Chronic right hip pain Degenerative disc disease Chronic back pain History of hepatitis C Chronic anemia History of alcohol abuse Anxiety Surgical History History of left hip replacement History of total right hip arthroplasty Hx of colonoscopy History of surgery History of right inguinal hernia repair History of laminectomy Family History Mother Osteoarthritis Social History Household Members: None Housing: Apartment Housing Other:: second floor Are you a primary child daycare worker to a significant other at home: No Do you presently have visiting nurse or other home services: No Alcohol intake: never Comment: Pt. refused supervision/ steady walking with crutches. Patient Tobacco Use Status: Current someday Tobacco user Tobacco use type: Cigarette Cigarettes Per Day: 3 Years Smoked: 39 Substance Use Type: Amphetamines and Crack/Cocaine service: No Current occupational status: disabled Review of Systems Const Reports as per HPI ENT Reports no additional complaints Card Denies chest pain, Denies chest pain at rest and Denies chest pain with activity Resp Denies chest congestion and Denies cough GI Reports no additional complaints Musc Details: pain over varicosities, aching of lower extremities, swelling, cramping, heaviness and tiredness, itching Denies abnormal gait Skin/Breast Reports pruritus and Denies wounds Neuro Reports no additional complaints and Denies abnormal gait Psych Denies no additional complaints Physical Exam Vital Signs: BMI result Body Mass Index 23.7 Const General: cooperative, healthy appearing and comfortable Orientation/consciousness: oriented to person, oriented to place and oriented to time Neck Carotids: no bruits Chest Chest palpation & inspection: normal inspection of the chest and normal palpation of entire chest wall Resp Effort & Inspection: normal respiratory effort and able to speak in complete sentences Cardio Rate: regular rate Heart sounds: S1 normal heart sound present and S2 normal heart sound present Peripheral pulses: Peripheral pulses 2+ throughout GI Inspection: Yes normal to inspection Skin Other: +2 edema, right greater than left CEAP Classification C4 - skin color changes Ep - Etiology Primary As - superficial veins P - reflux Upon closer exam in the right inguinal region there is a discolored lesion approximately 2 cm x 1 cm with irregular border and discolored. General skin exam: dry skin Neuro General: oriented to person, oriented to place and oriented to time Extrem Right lower extremity: full ROM, normal capillary refill and edema Left lower extremity: full ROM, normal capillary refill and edema Psych Mental Status: mental status grossly normal Results Reviewed Results Reviewed: Brief summary of venous insufficiency testing is as follows: right great saphenous vein: Positive right small saphenous vein: negative right accessory vein: none present left great saphenous vein: Positive left small saphenous vein: negative left accessory vein: none present Please note there is no evidence of any venous aneurysms or significant tortuosity Assessment & Plan Assessment & Plan (1) Varicose veins of right lower extremity with inflammation: Code(s): I83.11 - Varicose veins of right lower extremity with inflammation Category: Medical Plan: In short patient is positive for reflux for bilateral lower extremities. He reports that the right is worse than left. He will require venous ablation is of both great saphenous veins. At the current time I have elected to manage this conservatively with compression elevation and exercise. More concerning is this lesion that I appreciated on physical exam in the right inguinal region. I would like that seen and evaluated before any venous procedure. (2) Mass of right inguinal region: Code(s): R19.09 - Other intra-abdominal and pelvic swelling, mass and lump Category: Medical Plan: Patient has this right inguinal region lesion that is asymmetric and has irregular borders. It has uneven color and the diameter is nearly 2 cm. I did show this to the patient. We are in agreement that this should be evaluated and treated prior to any venous treatment. I will refer him to General surgery as he has seen Dr. Christine in the past for multiple lipomas and a foreign body of the elbow. I requested that he call us and follow up with us once this is all evaluated. Thank you for allowing us to assist in his care. If there are any questions or concerns please do not hesitate to contact us. Orders: Referrals General Surgery Referral R19.09 - Other intra-abdominal and pelvic swelling, mass and lump Coding Level of Care Code Est Pt Level 4 (98278) Diagnoses Varicose veins of right lower extremity with inflammation I83.11 Mass of right inguinal region R19.09
== END 2024-09-13 09:17 | disposition home or self-care (01) ==
PROVIDERS: PCP Family Medicine; Visit Provider Surgery Vascular Surgery
DX: I83.11 Varicose veins of right lower extremity with inflammation (principal); R19.09 Other intra-abdominal and pelvic swelling, mass and lump
CPT/HCPCS: 99214

== ENCOUNTER → 2024-09-13 08:17 | Outpatient (BNVA) | payer MEDICARE, MEDICAID, SELFPAY | PROVIDERS: PCP Family Medicine; Visit Provider Surgery Vascular Surgery | DX: I83.11 Varicose veins of right lower extremity with inflammation (principal); R19.09 Other intra-abdominal and pelvic swelling, mass and lump | CPT/HCPCS: 99212 ==

== ENCOUNTER 2024-09-19 08:34 | Outpatient (REF) | payer MEDICARE, MEDICAID, SELFPAY ==
--- OUTSIDE RECORDS SUMMARY | 2024-09-19 10:30 | XMS_ITS | Encounter Summary ---
Author Organization [employer] Address [address] [place] [address] 7 [place] [address] Care Team Providers Care Carroter Name Role Phone Zahraa Roca DO Primary Care Provider + [phone] Christian Soria Unavailable Unavailable Reason for Visit * Reason Onset Date Comments PT-1 04/17/2024 Encounter Details Date Type Department Care Team (Late st Contact Info) Description 04/17/2024 Telephone [facility] MEDICINE 230 [place], [place] [phone] Zahraa Roca DO 230 [place], [place] [phone] PT-1 Social History Tobacco Use Types Packs/Day [...] Y/N: Yes Provider name or facility name: [facility] Facility Address: [address] [place] [address] Escort needed: Y/N: No Do you have a wheelchair: Y/N: No If yes- Manual or electric: N/A Visits: Twice a month documented in this encounter Plan of Treatment Upcoming Encounters Date Type Department Care Team ([facility] st Contact Info) Description 10/10/2024 9:00 AM EDT Clinical Support [facility] MEDICINE [address] [place] [phone] Mere Rios RN documented as of this encounter Visit Diagnoses Not on filedocumented in this encounter Additional Health Concerns Assessment Noted Time PHQ-9 Depression Total Score: 0 11/28/19 24 11:23 AM EDT documented as of this encounter Care Teams Carroter Relationship Specialty Start Date End Date Zahraa Roca DO 230 [place] [address] PCP - General Family Medicine 07/25/18 Christian Soria FNP 230 [place] [address] Nurse Practitioner Family Medicine 06/24/23 documented as of this encounter
--- OUTSIDE RECORDS SUMMARY | 2024-09-19 10:30 | XMS_ITS | Encounter Summary ---
Author Organization [employer] Address [address] [place] [address] 7 [place] [address] Care Team Providers Care Store Cashier Name Role Phone Zahraa Roca DO Primary Care Provider + [phone] Christian Soria Unavailable Unavailable Reason for Visit * Reason Onset Date Comments Appt question 08/09/2024 Encounter Details Date Type Department Care Team (Late st Contact Info) Description 08/09/2024 Telephone [facility] MEDICINE 230 [place], [place] [phone] Zahraa Roca DO 230 [place], [place] [phone] Appt question Social History Tobacco Use Types [...] aug appt its for that. Any questions [phone] documented in this encounter Plan of Treatment Upcoming Encounters Date Type Department Care Team (Late st Contact Info) Description 10/10/2024 9:00 AM EDT Clinical Support [facility] MEDICINE 230 [place] [address] Mere Rios RN documented as of this encounter Visit Diagnoses Not on filedocumented in this encounter Additional Health Concerns Assessment Noted Time PHQ-9 Depression Total Score: 0 11/28/19 24 11:23 AM EDT documented as of this encounter Care Teams Store Cashier Relationship Specialty Start Date End Date Zahraa Roca DO 230 [place] [address] PCP - General Family Medicine 07/25/18 Christian Soria FNP 230 [place] [address] Nurse Practitioner Family Medicine 06/24/23 documented as of this encounter
--- OUTSIDE RECORDS SUMMARY | 2024-09-19 10:30 | XMS_ITS | Encounter Summary ---
Author Organization [employer] Address [address] [facility] 7t [place] [address] Care Team Providers Care Study Abroad Coordinator Name Role Phone Abelino Zahraa CANTOR Primary Care Provider + [phone] Christian Soria Unavailable Unavailable Encounter Details Date Type Department Care Team (Late st Contact Info) Description 04/17/2024 Telephone [facility] 230 [place] [address] Lore Vargas DDS 230 [place] [address] Social History Tobacco Use Types Packs/Day Years [...] Description 10/10/2024 9:00 AM EDT Clinical Support [facility] MEDICINE 230 [place] [address] Mere Rios, HENRIK documented as of this encounter Visit Diagnoses Not on filedocumented in this encounter Additional Health Concerns Assessment Noted Time PHQ-9 Depression Total Score: 0 11/28/19 24 11:23 AM EDT documented as of this encounter Care Teams Study Abroad Coordinator Relationship Specialty Start Date End Date Zahraa Roca DO 230 [place] [address] PCP - General Family Medicine 07/25/18 Christian Soria FNP 230 [place] [address] Nurse Practitioner Family Medicine 06/24/23 documented as of this encounter
--- OUTSIDE RECORDS SUMMARY | 2024-09-19 10:30 | XMS_ITS | Encounter Summary ---
Author Organization [employer] Address [address] [place] [address] 7located [facility] [place] [address] Care Team Providers Care Fire Prevention Inspector Name Role Phone Zahraa Roca DO Primary Care Provider + [phone] Christian Soria Unavailable Unavailable Reason for Visit * Reason Comments Med Refill Encounter Details Date Type Department Care Team (Late st Contact Info) Description 12/31/2022 Refill [facility] MEDICINE 230 [place] [address] Christian Soria FNP Anxiety Social History Tobacco [...] Description 10/10/2024 9:00 AM EDT Clinical Support [facility] MEDICINE 230 [place] [address] Mere Rios RN documented as of this encounter Visit Diagnoses Diagnosis Anxiety Anxiety state, unspecified documented in this encounter Additional Health Concerns Assessment Noted Time PHQ-9 Depression Total Score: 0 08/24/19 23 2:33 PM EST documented as of this encounter Care Teams Fire Prevention Inspector Relationship Specialty Start Date End Date Zahraa Roca DO 230 [place] [address] PCP - General Family Medicine 07/25/18 Christian Soria FNP 230 [place] [address] Nurse Practitioner Family Medicine 06/24/23 documented as of this encounter
--- OUTSIDE RECORDS SUMMARY | 2024-09-19 10:30 | XMS_ITS | Encounter Summary ---
Author Organization [employer] Address [address] [place] [address] 7 [place] [address] Care Team Providers Care Metal Fabricating Shop Helper Name Role Phone Zahraa Roca DO Primary Care Provider + [phone] Christian Soria Unavailable Unavailable Reason for Visit * Reason Onset Date Comments PT-1 03/15/2024 Encounter Details Date Type Department Care Team (Late st Contact Info) Description 03/15/2024 Telephone [facility] MEDICINE 230 [place], [place] [phone] Zahraa Roca DO 230 [place], [place] [phone] PT-1 Social History Tobacco Use Types Packs/Day [...] Y/N: Yes Provider name or facility name: [facility] Facility Address: [address] [place] [address] Escort needed: Y/N: No Do you have a wheelchair: Y/N: No If yes- Manual or electric: no Visits: 3 documented in this encounter Plan of Treatment Upcoming Encounters Date Type Department Care Team (Late st Contact Info) Description 10/10/2024 9:00 AM EDT Clinical Support [facility] MEDICINE 230 [place] [address] Mere Rios RN documented as of this encounter Visit Diagnoses Not on filedocumented in this encounter Additional Health Concerns Assessment Noted Time PHQ-9 Depression Total Score: 0 11/28/19 24 11:23 AM EDT documented as of this encounter Care Teams Metal Fabricating Shop Helper Relationship Specialty Start Date End Date Zahraa Roca DO 230 [place] [address] PCP - General Family Medicine 07/25/18 Christian Soria FNP 230 [place] [address] Nurse Practitioner Family Medicine 06/24/23 documented as of this encounter
--- OUTSIDE RECORDS SUMMARY | 2024-09-19 10:30 | XMS_ITS | Encounter Summary ---
Author Organization [employer] Address [address] [place] [address] 7 [place] [address] Care Team Providers Care Program Project Manager Name Role Phone Zahraa Roca DO Primary Care Provider + [phone] Christian Soria Unavailable Unavailable Reason for Visit * Reason Onset Date Comments Appointment Request 08/03/2024 Encounter Details Date Type Department Care Team (Late st Contact Info) Description 08/03/2024 Telephone [facility] MEDICINE 230 [place], [place] [phone] Zahraa Roca DO 230 [place], [place] [phone] Appointment Request Social History Tobacco Use Types [...] missed appointment with dermatology. Contact pt at [phone] documented in this encounter Plan of Treatment Upcoming Encounters Date Type Department Care Team (Late st Contact Info) Description 10/10/2024 9:00 AM EDT Clinical Support [facility] MEDICINE 230 [place] [address] Mere Rios, HENRIK documented as of this encounter Visit Diagnoses Not on filedocumented in this encounter Additional Health Concerns Assessment Noted Time PHQ-9 Depression Total Score: 0 11/28/19 24 11:23 AM EDT documented as of this encounter Care Teams Program Project Manager Relationship Specialty Start Date End Date Zahraa Roca DO 230 [place] [address] PCP - General Family Medicine 07/25/18 Christian Soria FNP 230 [place] [address] Nurse Practitioner Family Medicine 06/24/23 documented as of this encounter
--- OUTSIDE RECORDS SUMMARY | 2024-09-19 10:30 | XMS_ITS | Encounter Summary ---
Author Organization [employer] Address [address] [place] [address] 7 [place] [address] Care Team Providers Care Oil Burner Servicer And Installer Name Role Phone Zahraa Roca DO Primary Care Provider + [phone] Christian Soria Unavailable Unavailable Reason for Visit * Reason Onset Date Comments PT1 01/03/2024 Encounter Details Date Type Department Care Team (Late st Contact Info) Description 01/03/2024 Telephone [facility] MEDICINE 230 [place], [place] [phone] Zahraa Roca DO 230 [place], [place] [phone] PT1 Social History Tobacco Use Types Packs/Day [...] or facility name: [facility] Facility Address: [address] [place] [address] Escort needed: Y/N: No Do you have a wheelchair: Y/N: No If yes- Manual or electric: none Visits: 7 days a week documented in this encounter Plan of Treatment Upcoming Encounters Date Type Department Care Team ([facility] st Contact Info) Description 10/10/2024 9:00 AM EDT Clinical Support [facility] MEDICINE 230 [place] [address] Mere Rios, HENRIK documented as of this encounter Visit Diagnoses Not on filedocumented in this encounter Additional Health Concerns Assessment Noted Time PHQ-9 Depression Total Score: 0 11/28/19 24 11:23 AM EDT documented as of this encounter Care Teams Oil Burner Servicer And Installer Relationship Specialty Start Date End Date Zahraa Roca DO 230 [place] [address] PCP - General Family Medicine 07/25/18 Christian Soria FNP 230 [place] [address] Nurse Practitioner Family Medicine 06/24/23 documented as of this encounter
--- OUTSIDE RECORDS SUMMARY | 2024-09-19 10:31 | XMS_ITS | Encounter Summary ---
Author Organization [employer] Address [address] [place] [address] 7 [place] [address] Care Team Providers Care Field Representative Name Role Phone Zahraa Roca DO Primary Care Provider +[phone] Christian Soria Unavailable Unavailable Encounter Details Date Type Department Care Team (Late st Contact Info) Description 08/31/[address] [address] Zahraa Roca DO [address] [place] [address] Social History Tobacco Use Types Packs/Day Years [...] Description 10/10/2024 9:00 AM EDT Clinical Support [address] [phone] Mere Rios RN documented as of this encounter Visit Diagnoses Not on filedocumented in this encounter Additional Health Concerns Assessment Noted Time PHQ-9 Depression Total Score: 0 08/24/19 23 2:33 PM EST documented as of this encounter Care Teams Field Representative Relationship Specialty Start Date End Date Zahraa Roac DO 230 [place] [address] PCP - General Family Medicine 07/25/18 Christian Soria FNP 230 [place] [address] Nurse Practitioner Family Medicine 06/24/23 documented as of this encounter
--- OUTSIDE RECORDS SUMMARY | 2024-09-19 10:31 | XMS_ITS | Encounter Summary ---
Author Organization [employer] Address [address] [facility] [address] 7t [place] [address] Care Team Providers Care Central Stores Attendant Name Role Phone Abelino Zahraa Primary Care Provider + [phone] Christian Soria Unavailable Unavailable Encounter Details Date Type Department Care Team (Late st Contact Info) Description 11/03/2023 Orders Only [facility] MEDICINE 230 [place] [address] Provider, MD Hiral Social History Tobacco Use [...] Description 10/10/2024 9:00 AM EDT Clinical Support [facility] MEDICINE 230 [place] [address] Mere Rios RN documented as of this [...] documented as of this encounter Care Teams Central Stores Attendant Relationship Specialty Start Date End Date [place]ah[place] [address] PCP - General Family Medicine 07/25/18 Christian Soria FNP [address] [place] [address] Nurse Practitioner Family Medicine 06/24/23 documented as of this encounter
--- OUTSIDE RECORDS SUMMARY | 2024-09-19 10:31 | XMS_ITS | Encounter Summary ---
Author Organization [employer] Address [address] [place] [address] 7 [place] [address] Care Team Providers Care Founder Ceo & President Name Role Phone Abelino Zahraa Primary Care Provider + [phone] Christian Soria Unavailable Unavailable Reason for Visit * Reason Onset Date Comments PARTITION SETTER Initial completed today 09/12/2024 UTOX Neg BZO. sent out 09/12/2024 Encounter Details Date Type Department Care Team ([facility] st Contact Info) Description 09/12/2024 Telephone [facility] MEDICINE 230 [place] [address] Mere Rios RN PARTITION SETTER Initial completed today; UTOX Neg BZO. sent [...] - 09/12/2024 10:05 AM EST Pt had PARTITION SETTER Initial appt today UTOX Neg BZO, sent out for confirmation Pt had 2 Clonazepam remaining, anticipated 4. States he thinks 2 are under his dresser still. documented in this encounter Plan of Treatment Upcoming Encounters Date Type Department Care Team (Late st Contact Info) Description 10/10/2024 9:00 AM EDT Clinical Support [facility] MEDICINE 230 [place] [address] Mere Rios, RN documented as of this encounter Visit Diagnoses Not on filedocumented in this encounter Additional Health Concerns Assessment Noted Time PHQ-9 Depression Total Score: 0 11/28/19 24 11:23 AM EDT documented as of this encounter Care Teams Founder Ceo & President Relationship Specialty Start Date End Date Zahraa Roca DO 230 [place] [address] PCP - General Family Medicine 07/25/18 Christian Soria FNP 230 [place] [address] Nurse Practitioner Family Medicine 06/24/23 documented as of this encounter
--- OUTSIDE RECORDS SUMMARY | 2024-09-19 10:31 | XMS_ITS | Encounter Summary ---
Author Organization [employer] Address [address] [place] [address] [facility] [place] [address] Care Team Providers Care Market Research Coordinator Name Role Phone Zahraa Roca DO Primary Care Provider + [phone] Christian Soria Unavailable Unavailable Encounter Details Date Type Department Care Team (Late st Contact Info) Description 07/06/2022 Orders Only [facility]S [address] [place] [address] Zahraa Andino LPN Social History Tobacco Use [...] Description 10/10/2024 9:00 AM EDT Clinical Support [facility] MEDICINE 230 [place] [address] eMre Rios RN documented as of this encounter Visit Diagnoses Not on filedocumented in this encounter Care Teams Market Research Coordinator Relationship Specialty Start Date End Date Zahraa Rcoa DO [address] [place] [address] PCP - General Family Medicine 07/25/18 Christian Soria FNP [address] [place] [address] [place] [address] Nurse Practitioner Family Medicine 06/24/23 documented as of this encounter
--- OUTSIDE RECORDS SUMMARY | 2024-09-19 10:31 | XMS_ITS | Encounter Summary ---
Author Organization [employer] Address [address] [place] [address] [facility] [place] [address] Care Team Providers Care Stove Cleaner Name Role Phone Zahraa Roca DO Primary Care Provider + [phone] Christian Soria Unavailable Unavailable Reason for Visit * Reason Onset Date Comments Med Refill 12/31/2022 Encounter Details Date Type Department Care Team (Late st Contact Info) Description 12/31/2022 Telephone [facility] MEDICINE 230 [place] [address] Zahraa Roca DO 230 [place], [place] [phone] Med Refill Social History Tobacco Use Types [...] 10/10/2024 9:00 AM EDT Clinical Support [facility] MEDICINE [address] [place] [address] Mere Rios, HENRIK documented as of this encounter Visit Diagnoses Not on filedocumented in this encounter Additional Health Concerns Assessment Noted Time PHQ-9 Depression Total Score: 0 08/24/19 23 2:33 PM EST documented as of this encounter Care Teams Stove Cleaner Relationship Specialty Start Date End Date Zahraa Roca DO [address] [place] [address] PCP - General Family Medicine 07/25/18 Christian Soria FNP [address] [place] [address] Nurse Practitioner Family Medicine 06/24/23 documented as of this encounter
--- OUTSIDE RECORDS SUMMARY | 2024-09-19 10:31 | XMS_ITS | Encounter Summary ---
Author Organization [employer] Address [address] [facility] 7t [place] [address] Care Team Providers Care Psychologist Experimental Name Role Phone Yudijun Zahraa Primary Care Provider + [phone] Christian Soria Unavailable Unavailable Reason for Visit * Reason Onset Date Comments Recommend STANDARD MACHINE STITCHER Tier 1 08/29/2024 Encounter Details Date Type Department Care Team ([facility] st Contact Info) Description 08/29/[address] [facility] [address] [place] [address] Mere Rois, HENRIK Recommend STANDARD MACHINE STITCHER Tier 1 Social History Tobacco Use Types [...] RN - 08/29/2024 7:21 AM EST What STANDARD MACHINE STITCHER Tier would you like this patient to be? I recommend Tier 1, please let me know if you agree or would rather patient be in another STANDARD MACHINE STITCHER Tier. Tier 1 = HIGH RISK, Monthly STANDARD MACHINE STITCHER visits Tier 2 = MODerate RISK, Q3 Month visits Tier 3 = LOW RISK = Q4-6 month visits documented in this encounter Plan of Treatment Upcoming Encounters Date Type Department Care Team (Late st Contact Info) Description 10/10/2024 9:00 AM EDT Clinical Support [facility] [address] [place] [address] Mere Rios, RN documented as of this encounter Visit Diagnoses Not on filedocumented in this encounter Additional Health Concerns Assessment Noted Time PHQ-9 Depression Total Score: 0 11/28/19 24 11:23 AM EDT documented as of this encounter Care Teams Psychologist Experimental Relationship Specialty Start Date End Date Zahraa Roca DO [address] [place] [address] PCP - General Family Medicine 07/25/18 Christian Soria FNP [address] [place] [address] Nurse Practitioner Family Medicine 06/24/23 documented as of this encounter
--- OUTSIDE RECORDS SUMMARY | 2024-09-19 10:31 | XMS_ITS | Encounter Summary ---
Author Organization [employer] Address [address] [place] [address] 7 [place] [address] Care Team Providers Care Skirt Trimmer Name Role Phone Zahraa Roca DO Primary Care Provider + [phone] Christian Soria Unavailable Unavailable Reason for Visit * Reason Onset Date Comments PT-1 07/13/2024 Encounter Details Date Type Department Care Team (Late st Contact Info) Description 07/13/2024 Telephone [facility] MEDICINE [address] [place], [place] [phone] Zahraa Roca DO 230 [place], [place] [phone] PT-1 Social History Tobacco Use Types Packs/Day [...] Support [facility] [address] [place] [address] Mere Rios RN documented as of this encounter Visit Diagnoses Not on filedocumented in this encounter Additional Health Concerns Assessment Noted Time PHQ-9 Depression Total Score: 0 11/28/19 24 11:23 AM EDT documented as of this encounter Care Teams Skirt Trimmer Relationship Specialty Start Date End Date Zahraa Roca DO [address] [place] [address] PCP - General Family Medicine 07/25/18 Christian Soria FNP [address] [place] [address] Nurse Practitioner Family Medicine 06/24/23 documented as of this encounter
--- OUTSIDE RECORDS SUMMARY | 2024-09-19 10:31 | XMS_ITS | Encounter Summary ---
Author Organization [employer] Address [address] [facility] 7t [place] [address] Care Team Providers Care Adoption Worker Name Role Phone Abelino Zahraa Primary Care Provider + [phone] Christian Soria Unavailable Unavailable Encounter Details Date [...] Description 10/10/2024 9:00 AM EDT Clinical Support [facility]INE [address] [place] [address] Mere Rios RN documented as of this encounter Visit Diagnoses Not on filedocumented in this encounter Additional Health Concerns Assessment Noted Time PHQ-9 Depression Total Score: 0 11/28/19 24 11:23 AM EDT documented as of this encounter Care Teams Adoption Worker Relationship Specialty Start Date End Date Zahraa Roca DO [address] [place] [address] PCP - General Family Medicine 07/25/18 Christian Soria FNP [address] [place] [address] Nurse Practitioner Family Medicine 06/24/23 documented as of this encounter
--- OUTSIDE RECORDS SUMMARY | 2024-09-19 10:31 | XMS_ITS | Encounter Summary ---
Author Organization [employer] Address [address] [place] [address] 7 [place] [address] Care Team Providers Care Medical Claims Processor Name Role Phone Zahraa Roca DO Primary Care Provider + [phone] Christian Soria Unavailable Unavailable Encounter Details Date Type Department Care Team (Late st Contact Info) Description 10/21/2022 Orders Only [facility] MED & PEDS [address] [place], [place] [phone] Zahraa Andino LPN Social History Tobacco Use [...] Description 10/10/2024 9:00 AM EDT Clinical Support [facility] [address] [place] [address] Mere Rios RN documented as of this encounter Visit Diagnoses Not on filedocumented in this encounter Additional Health Concerns Assessment Noted Time PHQ-9 Depression Total Score: 0 08/24/19 23 2:33 PM EST documented as of this encounter Care Teams Medical Claims Processor Relationship Specialty Start Date End Date Zahraa Roca DO [address] [place], [place] [phone] PCP - General Family Medicine 07/25/18 Christian Soria FNP [address] [place] [address] Nurse Practitioner Family Medicine 06/24/23 documented as of this encounter
--- OUTSIDE RECORDS SUMMARY | 2024-09-19 10:31 | XMS_ITS | Encounter Summary ---
Author Organization [employer] Address [address] [place] [address] 7 [place] [address] Care Team Providers Care Warehouse Inventory Clerk Name Role Phone Zahraa Roca DO Primary Care Provider + [phone] Christian Soria Unavailable Unavailable Reason for Visit * Reason Onset Date Comments Patient message 09/12/2024 Encounter Details Date Type Department Care Team ([facility] st Contact Info) Description 09/12/2024 Telephone [facility] MEDICINE [address] [place] [address] Zahraa Roca DO [address] [place], [place] [phone] Patient message Social History Tobacco Use Types [...] 1:08 PM EST TC placed to patient [phone] in regards to below message. Patient reports he is seeing his vascular doctor tomorrow at [facility] and he will discuss the spot on the R thigh with the vascular provider.Patient reports he has applied ice to the lump on his back and it has decreased. Patient informed if the lump does not completely resolve or increases in size again, he should come to the [facility] to be evaluated. Patient verbalized understanding. Patient to f/u PRN. * Telephone Encounter - Alejandra High - 09/12/2024 10:05 AM EST Patient walked in wanted to relay a message to PCP. Patient said the spot on right thigh I thought was cancer. I believe is an ulcer from a perforated vain in leg. I have an appointment with Dr. Herrign on 09/13/2024 for a surgery date. I also found a lump on my spine, I will go to [facility] for that documented in this encounter Plan of Treatment Upcoming Encounters Date Type Department Care Team (Late st Contact Info) Description 10/10/2024 9:00 AM EDT Clinical Support [facility] MED[facility]INE [address] [place] [address] Mere Rios, RN documented as of this encounter Visit Diagnoses Not on filedocumented in this encounter Additional Health Concerns Assessment Noted Time PHQ-9 Depression Total Score: 0 11/28/19 24 11:23 AM EDT documented as of this encounter Care Teams Warehouse Inventory Clerk Relationship Specialty Start Date End Date Zahraa Roca DO [address] [place] [address] PCP - General Family Medicine 07/25/18 Christian Soria FNP [address] [place] [address] Nurse Practitioner Family Medicine 06/24/23 documented as of this encounter
--- OUTSIDE RECORDS SUMMARY | 2024-09-19 10:31 | XMS_ITS | Encounter Summary ---
Author Organization [employer] Address [address] [place] [address] 7 [place] [address] Care Team Providers Care Supervisor Farm Equipment Maintenance Name Role Phone Zahraa Roca DO Primary Care Provider + [phone] Christian Soria Unavailable Unavailable Reason for Visit * Reason Onset Date Comments Med Refill 08/20/2024 Encounter Details Date Type Department Care Team (Late st Contact Info) Description 08/20/2024 Refill [facility] MEDICINE [address] [place], [place] [phone] Zahraa Roca DO [address] [place], [place] [phone] Anxiety Social History Tobacco Use Types Packs/Day [...] Miscellaneous Notes * Telephone Encounter - Lupillo rFaser - 08/20/2024 9:16 AM EST TC from pt requesting medication refill. Medications needing refill : clonazePAM (KlonoPIN) 1 MG tablet To be sent to: [facility] - [place], [place] - [address] [place] [address] documented in this encounter Plan of Treatment Upcoming Encounters Date Type Department Care Team (Late st Contact Info) Description 10/10/2024 9:00 AM EDT Clinical Support [facility] MEDICINE [address] [place] [address] Mere Rios RN documented as of this encounter Visit Diagnoses Diagnosis Anxiety Anxiety state, unspecified documented in this encounter Additional Health Concerns Assessment Noted Time PHQ-9 Depression Total Score: 0 11/28/19 24 11:23 AM EDT documented as of this encounter Care Teams Supervisor Farm Equipment Maintenance Relationship Specialty Start Date End Date Zahraa Roca DO [address] [place] [address] PCP - General Family Medicine 07/25/18 Christian Soria FNP [address] [place] [address] Nurse Practitioner Family Medicine 06/24/23 documented as of this encounter
--- OUTSIDE RECORDS SUMMARY | 2024-09-19 10:31 | XMS_ITS | Encounter Summary ---
Author Organization [employer] Address [address] [place] [address] 7 [place] [address] Care Team Providers Care Anesthesiology Physician Assistant Name Role Phone SuryaZahraa lee Primary Care Provider + [phone] Christian Soria Unavailable Unavailable Reason for Visit * Reason Comments Med Refill Encounter Details Date Type Department Care Team (Late st Contact Info) Description 12/19/2022 Refill [facility] [address] [place] [address] Christian Soria FNP Anxiety Social History Tobacco [...] Description 10/10/2024 9:00 AM EDT Clinical Support [facility] [address] [place] [address] Mere Rios RN documented as of this encounter Visit Diagnoses Diagnosis Anxiety Anxiety state, unspecified documented in this encounter Additional Health Concerns Assessment Noted Time PHQ-9 Depression Total Score: 0 08/24/19 23 2:33 PM EST documented as of this encounter Care Teams Anesthesiology Physician Assistant Relationship Specialty Start Date End Date Zahraa Roca DO [address] [place] [address] PCP - General Family Medicine 07/25/18 Christian Soria FNP [address] [place] [address] Nurse Practitioner Family Medicine 06/24/23 documented as of this encounter
--- OUTSIDE RECORDS SUMMARY | 2024-09-19 10:31 | XMS_ITS | Encounter Summary ---
Author Organization [employer] Address [address] [place] [address] 7 [place] [address] Care Team Providers Care Grade Checker Name Role Phone Abelino Zahraa Primary Care Provider + [phone] Christian Soria Unavailable Unavailable Reason for Visit * Reason Comments MUSIC VIDEO PRODUCER Initial MUSIC VIDEO PRODUCER Initial Encounter Details Date Type Department Care Team (Latest Contact Info) Description 09/12/2024 9:30 AM EST Clinical Support [facility] MEDICINE [address] [place] [address] Mere Rios RN Anxiety (Primary Dx); Opioid [...] AM EST S: Pt here for initial MUSIC VIDEO PRODUCER Visit. Prescribed Clonazepam 1mg QD. States he [...] is apart of a methadone clinic in [place]. O: MUSIC VIDEO PRODUCER Tier 1. Pt currently prescribed Clonazepam 1m QD. TRAVEL SERVICES PROFESSIONAL verified today. Rx last filled on 08/20/24. [...] count. Last PCP visit was 06/06/24. A: MUSIC VIDEO PRODUCER Contract Initiation Visit, Chronic BZO use r/t anxiety. P: MUSIC VIDEO PRODUCER contract reviewed and signed, pt provided copy. Pt to continue taking medication only as prescribed; Next MUSIC VIDEO PRODUCER RV appointment scheduled for 10/10/24 @ 9am, F/U sooner PRN. Appointment reminder given. Pt verbalized understanding and agreed to plan. documented in this encounter Plan of Treatment Upcoming Encounters Date Type Department Care Team (Late st Contact Info) Description 10/10/2024 9:00 AM EDT Clinical Support [address] [address] Mere Rios, RN documented as of this encounter Procedures Procedure Name Priority Date/Time Associated Diagnosis Comments POCT MARIO-14 URINE DRUG SCREEN Routine 09/12/2024 9:54 AM EST Opioid dependence on agonist therapy ([facility]) DRUG MONITORING, BENZODIAZEPINES, QUANTITATIVE, URINE Routine 09/12/2024 9:30 AM EST Anxiety documented in this encounter Results * (ABNORMAL) POCT MARIO-14 Urine Drug Screen (09/12/2024 9:54 AM EST) THC Positive Benzodiazepines Screen, Urine Negative Methadone Screen, Urine Positive Urine Urine specimen obtained by clean catch procedure / Unknown 09/12/2024 9:54 AM EST Narrative Mere Rios RN - 09/12/2024 9:54 AM EST UTOX cup Lot#[id number] Exp. 03/13/26 Internal Pass Control Zahraa Roca DO POINT OF CARE TEST ENTER/JOANNA T ORDERABLES Final Result * Drug Monitoring, Benzodiazepines, Quantitative, Urine (09/12/2024 9:30 AM EST) Nordiazepam, GCMS Urine NEGATIVE [facility] Oxazepam, GCMS Urine NEGATIVE [facility] Lorazepam GCMS Urine NEGATIVE [facility] Alprazolam, GCMS Urine NEGATIVE [facility] Alphahydroxytriazolam, GCMS Ur NEGATIVE [facility] Temazepam, GCMS Urine NEGATIVE [facility] Alphahydroxymidazolam,GC MS Ur NEGATIVE [facility] Aminoclonazepam, GCMS Urine NEGATIVE [facility] Flurazepam Metabolite,GCMS Ur NEGATIVE [facility] Benzodiazepines Comments SEE NOTE [facility] Comment:This drug testing is for medical treatment only. Analysiswas performed as non-forensic testing and these resultsshould be used only by healthcare providers to renderdiagnosis or treatment, or to monitor progress of medicalconditions.LDT Notes:Confirmation tests were developed and their analyticalperformance characteristics have been determined by [employer] It has not been cleared or approved by the FDA.This assay has been validated pursuant to the CLIAregulations and is used for clinical purposes.Healthcare Providers needing Interpretation assistance,please contact us at [phone] ( ) M-F,8am to 10pm ESTTHIS TEST PERFORMED AT:[facility] [facility] [place] [phone] DIRECTOR: SOCRATES MATHIAS MD Urine (Urine, Random) 09/12/2024 9:30 AM EST 09/12/2024 4:41 PM EST us Zahraa Roca DO LAB URINE ORDERABLES Final R esult [facility] [address] [place] [address] [phone] documented in this encounter Visit Diagnoses Diagnosis Anxiety- Primary Anxiety state, unspecified Opioid dependence on agonist therapy ([facility]) documented in this encounter Additional Health Concerns Assessment Noted Time PHQ-9 Depression Total Score: 0 11/28/19 24 11:23 AM EDT documented as of this encounter Care Teams Grade Checker Relationship Specialty Start Date End Date Zahraa Roca DO [address] [place] [address] PCP - General Family Medicine 07/25/18 Christian Soria FNP [address] [place] [address] Nurse Practitioner Family Medicine 06/24/23 documented as of this encounter
--- OUTSIDE RECORDS SUMMARY | 2024-09-19 10:31 | XMS_ITS | Encounter Summary ---
Author Organization [employer] Address [address] [place] [address] 7 [place] [address] Care Team Providers Care Director Of Teaching And Learning Name Role Phone Zahraa Roca DO Primary Care Provider + [phone] Christian Soria Unavailable Unavailable Encounter Details Date Type Department Care Team (Late st Contact Info) Description 09/20/2022 Orders Only [facility] MED & PEDS [address] [place], [place] [phone] Zahraa Andino LPN Social History Tobacco Use [...] Clinical Support [facility] MEDICINE [address] [place] [address] Mere Rios RN documented as of this encounter Visit Diagnoses Not on filedocumented in this encounter Additional Health Concerns Assessment Noted Time PHQ-9 Depression Total Score: 0 08/24/19 23 2:33 PM EST documented as of this encounter Care Teams Director Of Teaching And Learning Relationship Specialty Start Date End Date Zahraa Roca DO [address] [place], [place] [phone] PCP - General Family Medicine 07/25/18 Christian Soria FNP [address] [place] [address] Nurse Practitioner Family Medicine 06/24/23 documented as of this encounter
--- OUTSIDE RECORDS SUMMARY | 2024-09-19 10:31 | XMS_ITS | Encounter Summary ---
Author Organization [employer] Address [address] [facility] 7t [place] [address] Care Team Providers Care Career Discovery Teacher Name Role Phone Abelino Zahraa Primary Care Provider + [phone] Christian Soria Unavailable Unavailable Reason for Visit * Reason Onset Date Comments Med Refill 09/12/2024 Encounter Details Date Type Department Care Team (Late st Contact Info) Description 09/12/2024 Refill [facility] MEDICINE [address] [place] [address] Mere Rios RN Anxiety Social History Tobacco [...] - 09/12/2024 10:03 AM EST Pt had RADIO/TV TECHNICIAN Initial appt today, Tier 1 UTOX Neg BZO, sent out for confirmation Pt had 2 Clonazepam remaining, anticipated 4. States he thinks 2 are under his dresser still. He attends methadone clinic in [place]. documented in this encounter Plan of Treatment Upcoming Encounters Date Type Department Care Team (Late st Contact Info) Description 10/10/2024 9:00 AM EDT Clinical Support [facility]ICINE [address] [place] [address] Mere Rios, RN documented as of this encounter Visit Diagnoses Diagnosis Anxiety Anxiety state, unspecified documented in this encounter Additional Health Concerns Assessment Noted Time PHQ-9 Depression Total Score: 0 11/28/19 24 11:23 AM EDT documented as of this encounter Care Teams Career Discovery Teacher Relationship Specialty Start Date End Date Zahraa Roca DO [address] [place] [address] PCP - General Family Medicine 07/25/18 Christian Soria FNP [address] [place] [address] Nurse Practitioner Family Medicine 06/24/23 documented as of this encounter
--- OUTSIDE RECORDS SUMMARY | 2024-09-19 10:31 | XMS_ITS | Encounter Summary ---
Author Organization [employer] Address [address] [place] [address] 7 [place] [address] Care Team Providers Care Coordinator Integrated Marketing Name Role Phone YudiZahraa barahona Primary Care Provider + [phone] Christian Soria Unavailable Unavailable Reason for Visit * Reason Onset Date Comments [facility] MANAGER MARKETING COMMUNICATIONS Initial X1 08/29/2024 Encounter Details Date Type Department Care Team (Late st Contact Info) Description 08/29/[address] [facility] MEDICINE [address] [place] [address] Mere Rios RN [facility] MANAGER MARKETING COMMUNICATIONS Initial X1 Social History Tobacco Use Types [...] 10:17 AM EST Pt was [facility] for MANAGER MARKETING COMMUNICATIONS Initial appt today. TC to patient, patient apologized for missing appt. States he has many appts currently and he was waiting on his ride. MANAGER MARKETING COMMUNICATIONS Initial rescheduled for 09/12/24 @ 9:30am. documented in this encounter Plan of Treatment Upcoming Encounters Date Type Department Care Team (Late st Contact Info) Description 10/10/2024 9:00 AM EDT Clinical Support [facility] MEDICINE [address] [place] [address] Mere Riso, RN documented as of this encounter Visit Diagnoses Not on filedocumented in this encounter Additional Health Concerns Assessment Noted Time PHQ-9 Depression Total Score: 0 11/28/19 24 11:23 AM EDT documented as of this encounter Care Teams Coordinator Integrated Marketing Relationship Specialty Start Date End Date Zahraa Roca DO [address] [place] [address] PCP - General Family Medicine 07/25/18 Christian Soria FNP [address] [place] [address] Nurse Practitioner Family Medicine 06/24/23 documented as of this encounter
--- OUTSIDE RECORDS SUMMARY | 2024-09-19 10:31 | XMS_ITS | Encounter Summary ---
Author Organization [employer] Address [address] [place] [address] 7 [place] [address] Care Team Providers Care Power Equipment Technology Instructor Name Role Phone Zahraa Roca DO Primary Care Provider + [phone] Christian Soria Unavailable Unavailable Reason for Visit * Reason Comments Transition Of Care (Tcm) Encounter Details Date Type Department Care Team ([facility] st Contact Info) Description 09/17/2024 Patient Outreach [facility] MEDICINE [address] [place] [address] Zahraa Roca DO [address] [place], [place] [phone] Transition Of Care (Tcm) Social History Tobacco [...] AM EST Hospital Discharges and Admission for [facility] Type of Visit: Emergency Department Date of Admission/Visit: 09/15/24 Date of Discharge: 09/15/24 Facility: [facility] Diagnosis: Viral upper respiratory infection, Costochondritis Disposition: Discharged Home Follow-Up Actions Follow-Up Needed: None/self-monitoring Follow-Up Outcome: Left Voicemail (VM full) Initial Contact Date: 09/17/24 Patient Contacted: Unable to leave message, full Patient Status: unknown, RN was unable to speak to patient The full discharge summary is Is available under media scanned document Review Flowsheet [facility] Transition of Care Documentation Type of Visit Date of Admission/Visit Date of Discharge Facility Diagnosis Disposition 07/29/2023 9:58 AM Hospital Admission 07/26/2023 07/28/2023 [facility] S/P total left hip arthroplastyDischarged Home 07/24/2024 12:50 PM Emergency Department 07/23/2024 07/23/2024 [facility] R foot pain Discharged Home 07/26/2024 9:00 AM Emergency Department 07/23/2024 07/23/2024 [facility] [place]ipheral Vascular Disease and Venous insufficiency Discharged Home 09/17/2024 10:17 AM Emergency Department 09/15/2024 09/15/2024 [facility] Viral upper respiratory infection, Costochondritis Discharged Home Recent Visits Date Type Provider Dept 06/06/24 Office Visit Zahraa oRca, [facility] Medicine 03/12/24 Office Visit Zahraa Roca, [facility] Medicine 10/19/23 Office Visit Zahraa Roca DO [facility] Medicine Showing recent visits within past 365 [...] 9:00 AM EDT Clinical Support [facility] MEDICINE [address] [place] [address] Mere Rios RN documented as of this encounter Visit Diagnoses Not on filedocumented in this encounter Additional Health Concerns Assessment Noted Time PHQ-9 Depression Total Score: 0 11/28/19 24 11:23 AM EDT documented as of this encounter Care Teams Power Equipment Technology Instructor Relationship Specialty Start Date End Date Zahraa Roca DO [address] [place] [address] PCP - General Family Medicine 07/25/18 Christian Soria FNP [address] [place] [address] Nurse Practitioner Family Medicine 06/24/23 documented as of this encounter
--- OUTSIDE RECORDS SUMMARY | 2024-09-19 10:31 | XMS_ITS | Encounter Summary ---
Author Organization [facility] [employer] Address [address] [place] [address] 7 [place] [address] Care Team Providers Care Head Counselor Name Role Phone Zahraa Roac DO Primary Care Provider + [phone] Christian Sorai Unavailable Unavailable Reason for Visit * Reason Onset Date Comments Appointment Request 06/19/2024 Encounter Details Date Type Department Care Team ([facility] st Contact Info) Description 06/19/2024 Telephone [facility] [address] [place], [place] [phone] Zahraa Roca DO [address] [place], [place] [phone] Appointment Request Social History Tobacco Use Types [...] [facility] [address] [place] [address] Mere Rios, HENRIK documented as of this encounter Visit Diagnoses Not on filedocumented in this encounter Additional Health Concerns Assessment Noted Time PHQ-9 Depression Total Score: 0 11/28/19 24 11:23 AM EDT documented as of this encounter Care Teams Head Counselor Relationship Specialty Start Date End Date Zahraa Roca DO [address] [place] [address] PCP - General Family Medicine 07/25/18 Christian Soria FNP [address] [place] [address] Nurse Practitioner Family Medicine 06/24/23 documented as of this encounter
--- OUTSIDE RECORDS SUMMARY | 2024-09-19 10:31 | XMS_ITS | Encounter Summary ---
Author Organization [employer] Address [address] [place] [address] [facility] [place] [address] Care Team Providers Care Greens Or Grounds Superintendent Name Role Phone Zahraa Roca DO Primary Care Provider + [phone] Christian Soria Unavailable Unavailable Encounter Details Date Type Department Care Team (Late st Contact Info) Description 08/12/2022 Orders Only [facility] [address] [place] [address] Zahraa Andino LPN Social History Tobacco Use [...] Description 10/10/2024 9:00 AM EDT Clinical Support [facility] [address] [place] [address] Mere Rios RN documented as of this encounter Visit Diagnoses Not on filedocumented in this encounter Care Teams Greens Or Grounds Superintendent Relationship Specialty Start Date End Date Zahraa Roca DO [address] [place] [phone] PCP - General Family Medicine 07/25/18 Christian Soria FNP [address] [place] [address] [place] [address] Nurse Practitioner Family Medicine 06/24/23 documented as of this encounter
--- OUTSIDE RECORDS SUMMARY | 2024-09-19 10:31 | XMS_ITS | Clinical Summary ---
Author Organization [employer] Address [address] [place] [address] 7 [place] [address] Care Team Providers Care Horse Farm Manager Name Role Phone Abelino Zahraa Primary Care Provider + [phone] Christian Soria Unavailable Unavailable Allergies No known [...] any issues or concerns, he should contact [facility]. All his questions were answered. He [...] Department Care Team Description 09/17/2024 Patient Outreach [address] [address] Zahraa Roca DO Transition Of Care (Tcm) 09/12/2024 9:30 AM EST Clinical Support [address] [address] Mere Rios, RN Anxiety (Primary Dx); Opioid dependence on agonist therapy (CMS/HCC) 09/12/[address] [address] Zahraa Roca DO Patient message 09/12/[address] [address] Mere Rios, HENRIK FIRE SAFETY MANAGER Initial completed today; UTOX Neg BZO. sent out 09/12/2024 Refill [facility] MED[facility] [address] [place], [place] [address], [place] [address] Mere Rios, HENRIK Anxiety 09/12/2024 Travel 08/29/2024 Telephone [facility] [address] [place] [address] Mere Rios, RN NCNS FIRE SAFETY MANAGER Initial X1 08/29/2024 Telephone [facility] [address] [place] [address] Mere Rios, HENRIK Recommend FIRE SAFETY MANAGER Tier 1 08/20/2024 Refill [facility] [address] [place] [address] Zahraa Roca DO Anxiety 08/09/[address] [address] Zahraa Roca DO Appt question 08/08/[address] [address] Zahraa Roca DO 08/03/[address] [address] Zahraa Roca DO Appointment Request 07/24/2024 Patient Outreach [facility] [address] [place] [address] Zahraa Roca DO Transition Of Care (Tcm) 07/23/2024 Orders Only GENERIC EXTERNAL DATA DEPARTMENT Provider, Generic External Data 07/17/2024 Patient Outreach [address] [address] Zahraa Roca DO Care Coordination (CHW outreach for SDOH PT-1 - LVM ) 07/16/[address] [address] Zahraa Roca DO callback requested 07/16/2024 Refill [facility] [address] [place] [address] Zahraa Roca DO Anxiety 07/13/[address] [address] Zahraa Roca DO PT-1 07/13/[address] [place] [address] Zahraa Roca DO Nurse Triage 07/12/2024 Telephone [facility] [place] [address] Zahraa Roca DO 07/10/2024 Orders Only [facility] [place] [place] [address] Zahraa Roca DO Lesion of subcutaneous tissue (Primary Dx) 07/03/2024 [address] [place] [address] Yanira Payne, RN Appt r/s 06/19/[address] [place] [address] Yanira Payne, RN Results 06/19/[address] [place] [address] Zahraa Roca DO ER Follow-up 06/19/[address] [place] [address] Zahraa Roca DO Appointment Request from Last [...] Clinical Support [facility] [address] [place] [address] Mere Rios, RN Health Maintenance Due Date [...] - 09/12/2024 9:54 AM EST UTOX cup Lot#[id number] Exp. 03/13/26 Internal Pass Control Zahraa Roca DO POINT OF CARE TEST ENTER/JOANNA T ORDERABLES Final Result * Drug Monitoring, Benzodiazepines, Quantitative, Urine (09/12/2024 9:30 AM EST) Nordiazepam, GCMS Urine NEGATIVE [facility] Oxazepam, GCMS Urine NEGATIVE [facility] Lorazepam GCMS Urine NEGATIVE [facility] Alprazolam, GCMS Urine NEGATIVE [facility] Alphahydroxytriazolam, GCMS Ur NEGATIVE [facility] Temazepam, GCMS Urine NEGATIVE [facility] Alphahydroxymidazolam,GC MS Ur NEGATIVE [facility] Aminoclonazepam, GCMS Urine NEGATIVE [facility] Flurazepam Metabolite,GCMS Ur NEGATIVE [facility] Benzodiazepines Comments SEE NOTE [facility] Comment:This drug testing is for medical treatment only. Analysiswas performed as non-forensic testing and these resultsshould be used only by healthcare providers to renderdiagnosis or treatment, or to monitor progress of medicalconditions.LDT Notes:Confirmation tests were developed and their analyticalperformance characteristics have been determined by [employer]. It has not been cleared or approved by the FDA.This assay has been validated pursuant to the CLIAregulations and is used for clinical purposes.Healthcare Providers needing Interpretation assistance,please contact us at [phone] ( ) M-F,8am to 10pm ESTTHIS TEST PERFORMED AT:[employer] [address] [phone] DIRECTOR: SOCRATES MATHIAS MD Urine (Urine, Random) 09/12/2024 9:30 AM EST 09/12/2024 4:41 PM EST us Zahraa Roca DO LAB URINE ORDERABLES Final R esult [facility] [address] [place] [address] [phone] * XR Elbow 1-2 Views Right (08/15/2024 10:35 PM EST) Anatomical Region Laterality Modality Upper Extremities, Elbow Right Radiogr aphic Imaging 08/15/2024 10:3 5 PM EST Narrative 08/15/2024 10:37 PM EST ? [facility] ?[address] ?[place] [address] ?XRay Report ? Signed ? Patient: ZoeCristobal Monae ?MR#: [id number] ?? 54 ? : 1970 ?Acct:[id number] ? Age/Sex: 54 / M ?ADM Date: 08/15/24 ? Loc: HO.US ? Attending Dr: Zamzam Richmond PA-C ? Ordering Physician: Sergei Christine MD ?? Date of Service: 08/15/24 ?? Procedure(s): XR elbow RT 2V ?? Accession Number(s): [id number] ? cc: Zahraa Roca DO; Sergei Christine [...] ? DD/ 34 ? TD/TT: 08/15/242234 ? Chief Minister: ? Procedure Note Donmaddie, Image - 08/15/[address] [address] XRay Report Signed Patient: Cristobal Enriquez JMR#: [id number] 54 : 1970Acct:[id number] Age/Sex: 54 / MADM Date: 08/15/24 Loc: HO.US Attending Dr: Zamzam Richmond PA-C Ordering Physician: Sergei Christine MD Date of Service: 08/15/24 Procedure(s): XR elbow RT 2V Accession Number(s): [id number] cc: Zahraa Roca DO; Sergei Christine MD [...] in OV> 08/15/242235 DD/ 34 TD/TT: 08/15/242234 Chief Minister: us [facility] External Provider IMG XR PROCEDURES Edited Result - Final * VASC US Lower Extremity Venous Insufficiency Bilateral (08/15/2024 8:40 AM EST) 08/15/2024 8:40 AM EST Narrative [facility] - 08/20/2024 7:43 AM EST ? [facility] ?[address] ?[place], [place] [address] ? Ultrasound Report ? Signed ? Patient: Cristobal Enriquez ?MR#: [id number] ?? 54 ? : 1970 ?Acct:[id number] ? Age/Sex: 54 / M ?ADM Date: 08/15/24 ? Loc: HO.US ? Attending Dr: Zamzam Richmond PA-C ? Ordering Physician: Zamzam Richmond PA-C ?? Date of Service: 08/15/24 ?? Procedure(s): US venous insuf bilat ?? Accession Number(s): [id number] ? cc: Zahraa Roca DO; Zamzam Richmond [...] DD/ 0840 ? TD/TT: 08/15/24 0930 ? Chief Minister: ? Procedure Note Denys Ervin - 08/20/[address] [place] [address] Ultrasound Report Signed Patient: Cristobal Enriquez JMR#: [id number] 54 : 1970Acct:[id number] Age/Sex: 54 / MADM Date: 08/15/24 Loc: . Attending Dr: Zamzam Richmond PA-C Ordering Physician: Zamzam Richmond PA-C Date of Service: 08/15/24 Procedure(s): US venous insuf bilat Accession Number(s): [id number] cc: Zahraa Roca DO; Zamzam Richmond PA-C [...] by: Boris Sears MD 08/20/2024 07:40 AM [facility] Dictated By: Boris Lovett MD Signed By: <Electronically signed by Boris Bates MDin OV> 08/20/24 0740 DD/ 0840 TD/TT: 08/15/24 0930 Chief Minister: [facility] External Provider CV VASC ULAR PROCEDURES Edited Result - Final [facility] [address] [facility] [place] [address] * US VENOUS DUPLEX LE RT (07/23/2024 5:16 PM EST) Anatomical Region Laterality Modality Abdomen Ultrasound 07/23/2024 5:16 PM EST Narrative 07/23/2024 5:17 PM EST ? [facility] ?[address] ?[place] [address] ? Ultrasound Report ? Signed ? Patient: Cristobal Enriquez ?MR#: [id number] ?? 54 ? : 1970 ?Acct:[id number] ? Age/Sex: 54 / M ?ADM Date: 07/23/24 ? Loc: HO.ED ? Attending Dr: ? Ordering Physician: Raul Almaguer ?? Date of Service: 07/23/24 ?? Procedure(s): US venous duplex LE RT ?? Accession Number(s): [id number] ? cc: Zahraa Roca DO; Raul Almaguer [...] DD/ 1716 ? TD/TT: 07/23/24 1716 ? Chief Minister: ? Procedure Note Aziza, Denys - 07/23/[address] [address] Ultrasound Report Signed Patient: Cristobal Enriquez JMR#: [id number] 54 : 1970Acct:[id number] Age/Sex: 54 / MADM Date: 07/23/24 Loc: .ED Attending Dr: Ordering Physician: Raul Almaguer Date of Service: 07/23/24 Procedure(s): US venous duplex LE RT Accession Number(s): [id number] cc: Zahraa Roca DO; Raul Almaguer CLINICAL [...] in OV> 07/23/247 DD/ 15 TD/TT: 07/23/241715 Chief Minister: [facility] External Provider IMG US PROCEDURES Final Result * SARS-CoV-2 RNA, Influenza A/B, and RSV RNA, Ql NAAT (07/23/2024 12:47 PM EST) Influenza A PCR NEGATIVE Negative [facility] Influenza B PCR NEGATIVE Negative [facility] Resp Syncy Virus RNA Qual PCR NEGATIVE Negative [facility] SARS COV2 PCR NEGATIVE Negative [facility] Comment:All test results mus t be [...] use by authorized laboratories.Testing performed on the [employer] GeneXpert utilizingreal-time RT-PCR.All SARS CoV2 and positive influenza A/B results arereported to [facility]. 07/23/2024 12:4 7 PM EST 07/23/2024 12:55 PM EST us Generic External Data Provider LAB MICROBIOLOGY - GENERAL ORDERABLES Final Result [facility] [address] [place] [phone] * (ABNORMAL) CBC auto differential (07/23/2024 12:47 PM EST) White Blood Count 4.9 4.8 - 10.8 X10*3/uL [facility] Red Blood Count 4.20(L) 4.60 - 5.80 X10*6/uL [facility] Hemoglobin 12.5(L) 14.0 - 18.0 g/dl [facility] Hematocrit 37.2(L) 42.0 - 52.0 % [facility] Mean Corpuscular Volume 88.6 80.0 - 98.0 fL [facility] Mean Corpuscular Hemoglobin 29.8 27.0 - 33.0 pg [facility] Mean Corpuscular HGB Conc 33.6 31.0 - 36.0 g/dl [facility] Red Cell Distribution Width 12.4 11.0 - 16.0 % [facility] Platelet Count 178 160 - 400 X10*3/uL [facility] Mean Platelet Volume 9.9 9.4 - 12.4 fL [facility] Neutrophils Percent Auto 65.7 45 - 73 % [facility] Imm Gran Pct Auto 0.4 0.0 - 0.4 % [facility] Lymphocytes Percent Auto 26.1 20 - 40 % [facility] Monocytes Percent Auto 5.8 2 - 11 % [facility] Eosinophils Percent Auto 1.4 0 - 4 % [facility] Basophils Percent Auto 0.6 0 - 2 % [facility] NRBC Pct Auto 0.0 0.0 - 0.2 /100WBC [facility] Neutrophils Absolute Auto 3.2 2.0 - 8.3 x10*3/uL [facility] Imm Gran Abs Auto 0.02 0.00 - 0.03 X10*3/uL [facility] Lymphocytes Absolute Auto 1.3 1.2 - 4.9 X10*3/uL [facility] Monocytes Absolute Auto 0.3 0.1 - 1.2 X10*3/uL [facility] Eosinophils Absolute Auto 0.1 0.0 - 0.4 X10*3/uL [facility] Basophils Absolute Auto 0.0 0.0 - 0.2 X10*3/uL [facility] NRBC Abs Auto 0.000 0.0 - 0.012 X10*3/uL [facility] 07/23/2024 12:4 7 PM EST 07/23/2024 12:55 PM EST us Generic External Data Provider LAB BLOOD ORDERAB LES Final Result Performing Organization Address City/State/[facility] Co de Phone Number [facility] [address] [place] [phone] * (ABNORMAL) Prothrombin Time-INR (07/23/2024 12:47 PM EST) Prothrombin Time 13.9(H) 10.9 - 12.4 SEC [facility] INTERNATIONAL NORM RATIO 1.2(H) 0.9 - 1.1 [facility] Comment:INTERNATIONAL NORMAL IZED RATIO (INR) [...] ORDERAB LES Final Result Performing Organization Address [facility] Co de Phone Number [facility] [address] [place] [phone] * Magnesium (07/23/2024 12:47 PM EST) Pathologist [facility] Magnesium 1.8 1.6 - 2.6 mg/dL [facility] 07/23/2024 12:4 7 PM EST 07/23/2024 12:55 PM EST Generic External Data Provider LAB BLOOD ORDERAB LES Final Result Performing Organization Address [facility] Co ri Phone Number [facility] [address] [place] [phone] * Lipase (07/23/2024 12:47 PM EST) Pathologist [facility] Lipase 12 8 - 78 U/L [facility] 07/23/2024 12:4 7 PM EST 07/23/2024 12:55 PM EST Generic External Data Provider LAB BLOOD ORDERAB LES Final Result Performing Organization Address [facility] de Phone Number [facility] [address] [place] [phone] * (ABNORMAL) Comprehensive Metabolic Panel (07/23/2024 12:47 PM EST) Pathologist [facility] Sodium 141 135 - 145 mmol/L [facility] Potassium 3.8 3.3 - 5.1 mmol/L [facility] Chloride 106 96 - 108 mmol/L [facility] Carbon Dioxide 29 22 - 29 mmol/L [facility] Anion Gap 10(L) 12 - 20 [facility] Urea Nitrogen (BUN) 14 9 - 16 mg/dL [facility] Creatinine, Serum 0.83 0.5 - 1.4 mg/dL [facility] Creatinine Clr Calc Pharmacy 102.6 [facility] Comment:eGFR (calculated fro m the MDRD study equation) and eCrCl(calculated from the Cockcroft-Gault equation) are based ondifferent parameters and may not yield comparable results.If eCrCl result is absurd, please check patient'sheight/weight. Estimated Glomerular Filt Rate >60 [facility] Comment:Chronic Kidney Disea se: Estimated GFR < 60 mL/min/1.75f0Fwwfzx Kidney Disease: Estimated GFR < 15 mL/min/1.73m2 Glucose 94 60 - 115 mg/dL [facility] Calcium 8.5 8.4 - 10.2 mg/dL [facility] Bilirubin, Total 0.5 0.0 - 1.0 mg/dL [facility] Aspartate Amino Transferase 21 5 - 37 U/L [facility] Alanine Aminotransferase 14 0 - 40 U/L [facility] Total Protein 6.8 6.5 - 8.0 g/dL [facility] Albumin Level 4.2 3.5 - 5.0 g/dL [facility] Alkaline Phosphatase 116 39 - 117 U/L [facility] 07/23/2024 12:4 7 PM EST 07/23/2024 12:55 PM EST us Generic External Data Provider LAB BLOOD ORDERAB LES Final Result [facility] [address] [place] [phone] * HIV-1/2 Antigen and Antibodies, Fourth Generation, with Reflexes (10/24/2023 10:26 AM EDT) HIV AB/AG Nonreactive Nonreactive [facility] Comment:HIV-1 p24 Ag and/or HIV-1/HIV-2 Ab not detected.A test result that is nonreactive does not exclude thepossibility of exposure to or infection with HIV-1 and/orHIV-2. Nonreactive results in this assay for individualswith prior exposure to HIV-1 and/or HIV-2 may be due toantigen and antibody levels that are below the limit ofdetection of this assay.The [employer] HIV Ag/Ab Combo assay result andsupplemental assay results should be interpreted inconjunction with the patient's clinical presentation,history and other laboratory results. If the results areinconsistent with clinical evidence, additional testing issuggested to confirm the result. Blood Venous blood specimen / Unknown 10/24/2023 10:26 AM EDT 10/24/2023 11:09 AM EDT us Zahraa Roca DO LAB BLOOD ORDERABLES Final R esult [facility] [address] [place] [phone] * (ABNORMAL) Lipid Panel, Standard (10/24/2023 10:26 AM EDT) Triglycerides 48 <150 mg/dL [facility] Comment:Desirable Triglyceri de: less than 150 mg/dLBorderline High Triglyceride 150-199 mg/dLHigh Triglyceride: 200-499 mg/dLVery High Triglyceride: greater than or equal to 5OO mg/dL Cholesterol 174 <200 mg/dL [facility] Comment:Desirable Cholestero l: less than 200 mg/dLBorderline High Cholesterol: 200-239 mg/dLHigh Cholesterol: greater than 239 mg/dL LDL Cholesterol Calculated 113(H) <100 mg/dL [facility] Comment:Desirable LDL: less than 100 mg/dLNear Optimal/Above Optimal LDL: 110- 129 mg/dLBorderline High LDL: 130-159 mg/dLHigh LDL: 160-189 mg/dLVery High LDL: greater than or equal to 190 mg/dL HDL Cholesterol 52 >40 mg/dL [facility] Comment:Desirable HDL: great er than 40 mg/dL Note: This HDL assay may give artificially low results in patients with liver disease. Blood Venous blood specimen / Unknown 10/24/2023 10:26 AM EDT 10/24/2023 1:07 PM EDT Zahraa Roca DO LAB BLOOD ORDERABLES Final R esult [facility] [address] [place] [phone] * Hm Colonoscopy (03/16/2023 9:43 AM EDT) Historical Provider HEALTH MAINTENANCE Final Result * Fecal Globin by Immunochemistry (07/13/2022 12:00 AM EST) Fecal Globin By Immunochemistry SEE NOTE [employer] [place] [employer] Comment: ??FECAL GLOBIN BY IMMUNOCHEMISTRY ?Micro Number: ?[id number] ??Test Status: ? Final ??Specimen Source: ?? Insure (tm) fobt test card ??Specimen Quality: ??Adequate ??Fecal Globin: ?Not Detected 07/13/2022 07/28/2022 8:2 7 AM EST Zahraa Abelino DO LAB BODY FLUIDS AND STOOLS O RDERABLES Final Result Performing Organization Address [facility] Co de Phone Number [facility] [address], [place] [address] [employer] [place] [facility] [facility] [address], ([address]) [place] [address] from Last 3 Months or Most Recently Relevant to Health Maintenance Insurance [facility] STANDARD MEDICARE DENTAL-[facility] MEDICAID STAND ADULT Care Teams Horse Farm Manager Relationship Specialty Start Date End Date Zahraa Roca DO [address] [place] [phone] PCP - General Family Medicine 07/25/18 Christian Soria FNP [address] [place] [phone] Nurse Practitioner Family Medicine 06/24/23
== END 2024-09-19 08:35 | disposition home or self-care (01) ==
LOC: HO.LNP 08:34
PROVIDERS: PCP Family Medicine; Referring Provider Surgery Vascular Surgery; Visit Provider Surgery
DX: D04.71 Carcinoma in situ of skin of right lower limb, including hip (principal); L82.1 Other seborrheic keratosis; L91.8 Other hypertrophic disorders of the skin
CPT/HCPCS: 11102; 11604; 88304; 88305; 99212; J2004

== ENCOUNTER 2024-09-19 08:34 | Outpatient (AMB) | payer MEDICARE, MEDICAID, SELFPAY ==
--- NOTE | 2024-09-19 08:35 | A.OFFVIS_ITS ---
Vital Signs 09/19/24 08:40 Height 5 ft 10 in Weight 165 lb BMI 23.7 BP 122/68 Blood Pressure Location Rt brachial Position Sitting Pulse 68 Intake Visit Reasons: Lesion/mass~ Rt inguinal region Intake Note: Patient referred by Dr. Lawton for lesion/ mass noted on Rt inguinal region. Noticed 2yrs ago. At first it looked like a skin tag. 2nd concern: lump on back. Patient c/o: started getting darker a few months ago. No personal hx of skin CA. Mother with hx of nmsc. Bilingual Teacher Assistant Required: No Accompanied by: Self / Same As Patient Allergies No Known Allergies Allergy (Verified 09/19/24 08:39) Medication List - Last Reconciled 09/19/24 by Sergei Christine MD acetaminophen 650 mg (2 x 325 mg) PO Q6H PRN 30 days calcium polycarbophil (Fiber-Lax) 625 mg PO DAILY clonazepam 1 mg PO DAILY [Elevated toliet seat As directed] methadone 75 mg PO DAILY xsoamzad-ygx-npmi fum-folic ac 7.5 mg iron-400 mcg 1 tab PO DAILY HPI Comments Details: Patient whom I know from the past who was seen by vascular surgeon regarding varicose veins and was found to have a suspicious growth/skin lesion of his right groin. Was re-referred to me for further evaluation/excision of this process. Patient was states he has had this for several years time and is increasing in size. He would like to have it removed. [facility] Medical History Rash Family history of pseudocholinesterase deficiency Alcohol dependence in remission Hx of substance abuse History of COVID-19 Chronic right hip pain Degenerative disc disease Chronic back pain History of hepatitis C Chronic anemia History of alcohol abuse Anxiety Surgical History History of left hip replacement History of total right hip arthroplasty Hx of colonoscopy History of surgery History of right inguinal hernia repair History of laminectomy Family History Mother Osteoarthritis Social History Household Members: None Housing: Apartment Housing Other:: second floor Are you a primary pet caregiver to a significant other at home: No Do you presently have visiting nurse or other home services: No Alcohol intake: never Comment: Pt. refused supervision/ steady walking with crutches. Patient Tobacco Use Status: Current someday Tobacco user Tobacco use type: Cigarette Cigarettes Per Day: 3 Years Smoked: 39 Substance Use Type: Amphetamines and Crack/Cocaine service: No Current occupational status: disabled Physical Exam Vital Signs: Last Vital Signs Pulse 68 09/19/24 08:40 BP 122/68 09/19/24 08:40 BMI result Body Mass Index 23.7 Extrem Other: Right groin demonstrates a superficial roughly 3 x 3 cm seborrheic keratotic type growth involving the right groin. Just lateral to this is a fibroepithelial polyp measuring 0.5 cm. Office Procedures Excision Details: Risks, benefits, alternatives of excision of seborrheic keratotic lesion and fibroepithelial polyp of right groin were reviewed with the patient and included but not limited to bleeding, infection, recurrence, numbness, pain, scarring the patient wished to proceed. All questions answered. Consent signed. After appropriate positioning, patient underwent 1% lidocaine and Betadine prep and 1. Oblique by elliptical incision around seborrheic keratotic lesion measuring roughly 4 x 3 cm to grossly clear margins. Specimen sent to pathology. Wound was irrigated, secured hemostasis, and closed using running subcuticular 3-0 Vicryl suture followed by Steri-Strips and sterile dressings. 2. Uneventful tangential excision of fibroepithelial polyp of right groin. Bacitracin and sterile dressing applied. Patient tolerated procedure well 65962-osgwf/arms/legs < 0.5cm 99145-bdfvk/arms/legs 3.1-4cm Procedure code (CPT) selection complete Office Meds lidocaine 1 %-epinephrine 1:100,000 injection solution Performing Provider: Sergei Christine MD Performing Location: [facility] General Surgeons Administered by: Sergei Christine MD on 09/19/24 09:19 Dose Route Admin Location Dispensed Lot Number Expiration Date [facility] External Auditor 10 mL Infiltration 10 mL Assessment & Plan Assessment & Plan (1) Raised seborrheic keratosis: Code(s): L82.1 - Other seborrheic keratosis Category: Surgical Plan: Patient was been given local wound instructions including ice periodically 20 minutes on and off, Tylenol or Motrin p.r.n. pain, may shower in 2 days removing only outside dressing leaving Steri-Strips intact, and no strenuous activities. All questions answered. Patient was see me as directed or p.r.n. 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
[2024-09-19 08:40] VITALS: BP 122/68; PULSE 68; BMI 23.7
--- OUTSIDE RECORDS SUMMARY | 2024-09-19 09:07 | XMS_ITS | Encounter Summary ---
Author Organization [employer] Address [address] [place] [address] 7 [place] [address] Care Team Providers Care Grout Machine Operator Name Role Phone Zahraa Roca DO Primary Care Provider + [phone] Christian Soria Unavailable Unavailable Reason for Visit * Reason Onset Date Comments Appointment Request 08/03/2024 Encounter Details Date Type Department Care Team (Late st Contact Info) Description 08/03/2024 Telephone [facility] [address] [place], [place] [phone] Zahraa Roca DO [address] [place], [place] [phone] Appointment Request Social History Tobacco Use Types [...] missed appointment with dermatology. Contact pt at [phone] documented in this encounter Plan of Treatment Upcoming Encounters Date Type Department Care Team (Late st Contact Info) Description 10/10/2024 9:00 AM EDT Clinical Support [facility] [address] [place] [address] Mere Rios, HENRIK documented as of this encounter Visit Diagnoses Not on filedocumented in this encounter Additional Health Concerns Assessment Noted Time PHQ-9 Depression Total Score: 0 11/28/19 24 11:23 AM EDT documented as of this encounter Care Teams Grout Machine Operator Relationship Specialty Start Date End Date Zahraa Roca DO [address] [place] [address] PCP - General Family Medicine 07/25/18 Christian Soria FNP [address] [place] [address] Nurse Practitioner Family Medicine 06/24/23 documented as of this encounter
--- OUTSIDE RECORDS SUMMARY | 2024-09-19 09:07 | XMS_ITS | Encounter Summary ---
Author Organization [employer] Address [address] [place] [address] 7 [place] [address] Care Team Providers Care Aircraft Dispatcher Name Role Phone Zahraa Roca DO Primary Care Provider + [phone] Christian Soria Unavailable Unavailable Reason for Visit * Reason Onset Date Comments PT-1 03/15/2024 Encounter Details Date Type Department Care Team (Late st Contact Info) Description 03/15/2024 Telephone [facility] [address] [place], [place] [phone] Zahraa Roca DO [address] [place], [place] [phone] PT-1 Social History Tobacco Use Types Packs/Day [...] Y/N: Yes Provider name or facility name: [facility] Facility Address: [address] [place] [address] Escort needed: Y/N: No Do you have a wheelchair: Y/N: No If yes- Manual or electric: no Visits: 3 documented in this encounter Plan of Treatment Upcoming Encounters Date Type Department Care Team (Late st Contact Info) Description 10/10/2024 9:00 AM EDT Clinical Support [facility] [address] [place] [address] Mere Rios RN documented as of this encounter Visit Diagnoses Not on filedocumented in this encounter Additional Health Concerns Assessment Noted Time PHQ-9 Depression Total Score: 0 11/28/19 24 11:23 AM EDT documented as of this encounter Care Teams Aircraft Dispatcher Relationship Specialty Start Date End Date Zahraa Roca DO [address] [place] [address] PCP - General Family Medicine 07/25/18 Christian Soria FNP [address] [place] [address] Nurse Practitioner Family Medicine 06/24/23 documented as of this encounter
--- OUTSIDE RECORDS SUMMARY | 2024-09-19 09:08 | XMS_ITS | Encounter Summary ---
Author Organization [employer] Address [address] [place] [address] 7 [place] [address] Care Team Providers Care Grind Operator Name Role Phone Zahraa Roca DO Primary Care Provider + [phone] Christian Soria Unavailable Unavailable Reason for Visit * Reason Onset Date Comments PT-1 04/17/2024 Encounter Details Date Type Department Care Team (Late st Contact Info) Description 04/17/2024 Telephone [facility] [address] [place], [place] [phone] Zahraa Roca DO [address] [place], [place] [phone] PT-1 Social History Tobacco Use Types Packs/Day [...] Y/N: Yes Provider name or facility name: [facility] Facility Address: [address] [place] [address] Escort needed: Y/N: No Do you have a wheelchair: Y/N: No If yes- Manual or electric: N/A Visits: Twice a month documented in this encounter Plan of Treatment Upcoming Encounters Date Type Department Care Team ([facility] st Contact Info) Description 10/10/2024 9:00 AM EDT Clinical Support [facility] [address] [place] [phone] Mere Rios RN documented as of this encounter Visit Diagnoses Not on filedocumented in this encounter Additional Health Concerns Assessment Noted Time PHQ-9 Depression Total Score: 0 11/28/19 24 11:23 AM EDT documented as of this encounter Care Teams Grind Operator Relationship Specialty Start Date End Date Zahraa Roca DO [address] [place] [address] PCP - General Family Medicine 07/25/18 Christian Soria FNP [address] [place] [address] Nurse Practitioner Family Medicine 06/24/23 documented as of this encounter
--- OUTSIDE RECORDS SUMMARY | 2024-09-19 09:08 | XMS_ITS | Encounter Summary ---
Author Organization [employer] Address [address] [place] [address] [address] [address] Care Team Providers Care Environmental Compliance Engineer Name Role Phone Zahraa Roca DO Primary Care Provider + [phone] Christian Soria Unavailable Unavailable Encounter Details Date Type Department Care Team (Late st Contact Info) Description 08/12/2022 Orders Only [facility] [address] [place] [address] Zahraa Andino LPN Social History Tobacco Use [...] 9:00 AM EDT Clinical Support [facility] [address] [place] [address] Mere Rios RN documented as of this encounter Visit Diagnoses Not on filedocumented in this encounter Care Teams Environmental Compliance Engineer Relationship Specialty Start Date End Date Zahraa Roca DO [address] [place] [address] PCP - General Family Medicine 07/25/18 Christian Soria FNP [address] [place] [address] [place] [address] Nurse Practitioner Family Medicine 06/24/23 documented as of this encounter
--- OUTSIDE RECORDS SUMMARY | 2024-09-19 09:08 | XMS_ITS | Encounter Summary ---
Author Organization [employer] Address [address] [place] [address] 7 [place] [address] Care Team Providers Care Taker Off Braker Machine Name Role Phone Abelino Zahraa Primary Care Provider + [phone] Christian Soria Unavailable Unavailable Reason for Visit * Reason Comments TENT FINISHER Initial TENT FINISHER Initial Encounter Details Date Type Department Care Team (Latest Contact Info) Description 09/12/2024 9:30 AM EST Clinical Support [facility] MED[facility] [address] [place] [address] Mere Rios RN Anxiety (Primary Dx); Opioid [...] AM EST S: Pt here for initial TENT FINISHER Visit. Prescribed Clonazepam 1mg QD. States he [...] is apart of a methadone clinic in [place]. O: TENT FINISHER Tier 1. Pt currently prescribed Clonazepam 1m QD. RELIEF MASTER verified today. Rx last filled on 08/20/24. [...] count. Last PCP visit was 06/06/24. A: TENT FINISHER Contract Initiation Visit, Chronic BZO use r/t anxiety. P: TENT FINISHER contract reviewed and signed, pt provided copy. Pt to continue taking medication only as prescribed; Next TENT FINISHER RV appointment scheduled for 10/10/24 @ 9am, F/U sooner PRN. Appointment reminder given. Pt verbalized understanding and agreed to plan. documented in this encounter Plan of Treatment Upcoming Encounters Date Type Department Care Team (Late st Contact Info) Description 10/10/2024 9:00 AM EDT Clinical Support [address] [address] Mere Rios, RN documented as of this encounter Procedures Procedure Name Priority Date/Time Associated Diagnosis Comments POCT MARIO-14 URINE DRUG SCREEN Routine 09/12/2024 9:54 AM EST Opioid dependence on agonist therapy ([facility]) DRUG MONITORING, BENZODIAZEPINES, QUANTITATIVE, URINE Routine 09/12/2024 9:30 AM EST Anxiety documented in this encounter Results * (ABNORMAL) POCT MARIO-14 Urine Drug Screen (09/12/2024 9:54 AM EST) THC Positive Benzodiazepines Screen, Urine Negative Methadone Screen, Urine Positive Urine Urine specimen obtained by clean catch procedure / Unknown 09/12/2024 9:54 AM EST Narrative Mere Rios RN - 09/12/2024 9:54 AM EST UTOX cup Lot#[id number] Exp. 03/13/26 Internal Pass Control Zahraa Roca DO POINT OF CARE TEST ENTER/JOANNA T ORDERABLES Final Result * Drug Monitoring, Benzodiazepines, Quantitative, Urine (09/12/2024 9:30 AM EST) Nordiazepam, GCMS Urine NEGATIVE [facility] Oxazepam, GCMS Urine NEGATIVE [facility] Lorazepam GCMS Urine NEGATIVE [facility] Alprazolam, GCMS Urine NEGATIVE [facility] Alphahydroxytriazolam, GCMS Ur NEGATIVE [facility] Temazepam, GCMS Urine NEGATIVE [facility] Alphahydroxymidazolam,GC MS Ur NEGATIVE [facility] Aminoclonazepam, GCMS Urine NEGATIVE [facility] Flurazepam Metabolite,GCMS Ur NEGATIVE [facility] Benzodiazepines Comments SEE NOTE [facility] Comment:This drug testing is for medical treatment only. Analysiswas performed as non-forensic testing and these resultsshould be used only by healthcare providers to renderdiagnosis or treatment, or to monitor progress of medicalconditions.LDT Notes:Confirmation tests were developed and their analyticalperformance characteristics have been determined by [employer]. It has not been cleared or approved by the FDA.This assay has been validated pursuant to the CLIAregulations and is used for clinical purposes.Healthcare Providers needing Interpretation assistance,please contact us at [phone] ( ) M-F,8am to 10pm ESTTHIS TEST PERFORMED AT:[facility] [place] [phone] DIRECTOR: SOCARTES MATHIAS MD Urine (Urine, Random) 09/12/2024 9:30 AM EST 09/12/2024 4:41 PM EST us Zahraa Roca DO LAB URINE ORDERABLES Final R esult [facility] [address] [place] [address] [phone] documented in this encounter Visit Diagnoses Diagnosis Anxiety- Primary Anxiety state, unspecified Opioid dependence on agonist therapy ([facility]) documented in this encounter Additional Health Concerns Assessment Noted Time PHQ-9 Depression Total Score: 0 11/28/19 24 11:23 AM EDT documented as of this encounter Care Teams Taker Off Braker Machine Relationship Specialty Start Date End Date Zahraa Roca DO [address] [place] [address] PCP - General Family Medicine 07/25/18 Christian Soria FNP [address] [place] [phone] Nurse Practitioner Family Medicine 06/24/23 documented as of this encounter
--- OUTSIDE RECORDS SUMMARY | 2024-09-19 09:08 | XMS_ITS | Clinical Summary ---
Author Organization [employer] Address [address] [place] [address] 7 [place] [address] Care Team Providers Care Fairing Worker Name Role Phone Abelino Zahraa Primary Care Provider + [phone] Christian Soria Unavailable Unavailable Allergies No known [...] any issues or concerns, he should contact [facility]. All his questions were answered. He [...] organization. Date Type Department Care Team Description 09/17/2024 Patient Outreach [address] [address] Zahraa Roca DO Transition Of Care (Tcm) 09/12/2024 9:30 AM EST Clinical Support [address] [address] Mere Rios, RN Anxiety (Primary Dx); Opioid dependence on agonist therapy (CMS/HCC) 09/12/[address] [address] Zahraa Roca DO Patient message 09/12/[address] [address] Mere Rios, HENRIK PAPER HANGER Initial completed today; UTOX Neg BZO. sent out 09/12/2024 Refill [facility] [address] [place], [place] [address], [place] [address] Mere Rios, HENRIK Anxiety 09/12/2024 Travel 08/29/2024 Telephone [facility] [address] [facility] [place] [address] Mere Rios, RN NCNS PAPER HANGER Initial X1 08/29/2024 Telephone [facility] [address] [place] [address] Mere Rios, HENRIK Recommend PAPER HANGER Tier 1 08/20/2024 Refill [facility] [address] [facility] [place] [address] Zahraa Roca DO Anxiety 08/09/[address] [address] Zahraa Roca DO Appt question 08/08/[address] [address] Zahraa Roca DO 08/03/[address] [address] Zahraa Roca DO Appointment Request 07/24/2024 Patient Outreach [facility] [address] [place] [address] Zahraa Roca DO Transition Of Care (Tcm) 07/23/2024 Orders Only GENERIC EXTERNAL DATA DEPARTMENT Provider, Generic External Data 07/17/2024 Patient Outreach [address] [address] Zahraa Roca DO Care Coordination (CHW outreach for SDOH PT-1 - LVM ) 07/16/[address] [address] Zahraa Roca DO callback requested 07/16/2024 Refill [facility] [address] [place] [address] Zahraa Roca DO Anxiety 07/13/[address] [address] Zahraa Roca DO PT-1 07/13/[address] [place] [address] Zahraa Roca DO Nurse Triage 07/12/2024 Telephone [facility] [place] [address] Zahraa Roca DO 07/10/2024 Orders Only [facility] [place] [address] Zahraa Roca DO Lesion of subcutaneous tissue (Primary Dx) 07/03/2024 [address] [place] [address] Yanira Payne, RN Appt r/s 06/19/[address] [place] [address] Yanira Payne, RN Results 06/19/[address] [place] [address] Zahraa Roca DO ER Follow-up 06/19/[address] [place] [address] Zahraa Roca DO Appointment Request from Last [...] Description 10/10/2024 9:00 AM EDT Clinical Support [facility] [address] [place] [address] Mere Rios, RN Health Maintenance Due Date [...] AM EST Opioid dependence on agonist therapy (CMS/HCC) DRUG MONITORING, BENZODIAZEPINES, QUANTITATIVE, URINE Routine 09/12/2024 9:30 AM EST Anxiety XR ELBOW 1-2 VIEWS RIGHT Routine 08/15/2024 [...] QL NAAT Routine 07/23/2024 12:47 PM EST INTRAORAL - COMPLETE SERIES OF [...] / Unknown 09/12/2024 9:54 AM EST Mere Smalls RN - 09/12/2024 9:54 AM EST UTOX cup Lot#[id number] Exp. 03/13/26 Internal Pass Control Zahraa Roca DO POINT OF CARE TEST ENTER/JOANNA T ORDERABLES Final Result * Drug Monitoring, Benzodiazepines, Quantitative, Urine (09/12/2024 9:30 AM EST) Nordiazepam, GCMS Urine NEGATIVE [facility] Oxazepam, GCMS Urine NEGATIVE [facility] Lorazepam GCMS Urine NEGATIVE [facility] Alprazolam, GCMS Urine NEGATIVE [facility] Alphahydroxytriazolam, GCMS Ur NEGATIVE [facility] Temazepam, GCMS Urine NEGATIVE [facility] Alphahydroxymidazolam,GC MS Ur NEGATIVE [facility] Aminoclonazepam, GCMS Urine NEGATIVE [facility] Flurazepam Metabolite,GCMS Ur NEGATIVE [facility] Benzodiazepines Comments SEE NOTE [facility] Comment:This drug testing is for medical treatment only. Analysiswas performed as non-forensic testing and these resultsshould be used only by healthcare providers to renderdiagnosis or treatment, or to monitor progress of medicalconditions.LDT Notes:Confirmation tests were developed and their analyticalperformance characteristics have been determined by [employer]. It has not been cleared or approved by the FDA.This assay has been validated pursuant to the CLIAregulations and is used for clinical purposes.Healthcare Providers needing Interpretation assistance,please contact us at [phone] ( ) M-F,8am to 10pm ESTTHIS TEST PERFORMED AT:[facility] [address] [phone] DIRECTOR: SOCRATES MATHIAS MD Urine (Urine, Random) 09/12/2024 9:30 AM EST 09/12/2024 4:41 PM EST us Zahraa Roca DO LAB URINE ORDERABLES Final R esult [facility] [address] [place] [address] [phone] * XR Elbow 1-2 Views Right (08/15/2024 10:35 PM EST) Anatomical Region Laterality Modality Upper Extremities, Elbow Right Radiogr aphic Imaging 08/15/2024 10:3 5 PM EST Narrative 08/15/2024 10:37 PM EST ? [facility] ?[address] ?[place] [address] ?XRay Report ? Signed ? Patient: ZoeCristobal Monae ?MR#: [id number] ?? 54 ? : 1970 ?Acct:[id number] ? Age/Sex: 54 / M ?ADM Date: 08/15/24 ? Loc: HO.US ? Attending Dr: Zamzam Richmond PA-C ? Ordering Physician: Sergei Christine MD ?? Date of Service: 08/15/24 ?? Procedure(s): XR elbow RT 2V ?? Accession Number(s): [id number] ? cc: Zahraa Roca DO; Sergei Christine [...] ? DD/ 34 ? TD/TT: 08/15/242234 ? Mucker Cofferdam: ? Procedure Note Donmaddie, Image - 08/15/[address] [address] XRay Report Signed Patient: Cristobal Enriquez JMR#: [id number] 54 : 1970Acct:[id number] Age/Sex: 54 / MADM Date: 08/15/24 Loc: HO.US Attending Dr: Zamzam Richmond PA-C Ordering Physician: Sergei Christine MD Date of Service: 08/15/24 Procedure(s): XR elbow RT 2V Accession Number(s): [id number] cc: Zahraa Roca DO; Sergei Christine MD [...] in OV> 08/15/242235 DD/ 34 TD/TT: 08/15/242234 Mucker Cofferdam: us [facility] External Provider IMG XR PROCEDURES Edited Result - Final * VASC US Lower Extremity Venous Insufficiency Bilateral (08/15/2024 8:40 AM EST) 08/15/2024 8:40 AM EST Narrative [facility] - 08/20/2024 7:43 AM EST ? [facility] ?[address] ?[place], [place] [address] ? Ultrasound Report ? Signed ? Patient: Cristobal Enriquez ?MR#: [id number] ?? 54 ? : 1970 ?Acct:[id number] ? Age/Sex: 54 / M ?ADM Date: 08/15/24 ? Loc: HO.US ? Attending Dr: Zamzam Richmond PA-C ? Ordering Physician: Zamzam Richmond PA-C ?? Date of Service: 08/15/24 ?? Procedure(s): US venous insuf bilat ?? Accession Number(s): [id number] ? cc: Zahraa Roca DO; Zamzam Richmond [...] DD/ 0840 ? TD/TT: 08/15/24 0930 ? Mucker Cofferdam: ? Procedure Note Denys Ervin - 08/20/[address] [place] [address] Ultrasound Report Signed Patient: Cristobal Enriquez JMR#: [id number] 54 : 1970Acct:[id number] Age/Sex: 54 / MADM Date: 08/15/24 Loc: . Attending Dr: Zamzam Richmond PA-C Ordering Physician: Zamzam Richmond PA-C Date of Service: 08/15/24 Procedure(s): US venous insuf bilat Accession Number(s): [id number] cc: Zahraa Roca DO; Zamzam Richmond PA-C [...] by: Boris Sears MD 08/20/2024 07:40 AM [facility] Dictated By: Boris Lovett MD Signed By: <Electronically signed by Boris Bates MDin OV> 08/20/24 0740 DD/ 0840 TD/TT: 08/15/24 0930 Mucker Cofferdam: [facility] External Provider CV VASC ULAR PROCEDURES Edited Result - Final [facility] [address] [facility] [place] [address] * US VENOUS DUPLEX LE RT (07/23/2024 5:16 PM EST) Anatomical Region Laterality Modality Abdomen Ultrasound 07/23/2024 5:16 PM EST Narrative 07/23/2024 5:17 PM EST ? [facility] ?[address] ?[place] [address] ? Ultrasound Report ? Signed ? Patient: Cristobal Enriquez ?MR#: [id number] ?? 54 ? : 1970 ?Acct:[id number] ? Age/Sex: 54 / M ?ADM Date: 07/23/24 ? Loc: HO.ED ? Attending Dr: ? Ordering Physician: Raul Almaguer ?? Date of Service: 07/23/24 ?? Procedure(s): US venous duplex LE RT ?? Accession Number(s): [id number] ? cc: Zahraa Roca DO; Raul Almaguer [...] DD/ 1716 ? TD/TT: 07/23/24 1716 ? Mucker Cofferdam: ? Procedure Note Aziza, Denys - 07/23/[address] [address] Ultrasound Report Signed Patient: Cristobal Enriquez JMR#: [id number] 54 : 1970Acct:[id number] Age/Sex: 54 / MADM Date: 07/23/24 Loc: .ED Attending Dr: Ordering Physician: Raul Almaguer Date of Service: 07/23/24 Procedure(s): US venous duplex LE RT Accession Number(s): [id number] cc: Zahraa Roca DO; Raul Almaguer CLINICAL [...] signed by Gelacio Leone MD in OV> 07/23/247 DD/ 15 TD/TT: 07/23/241715 Mucker Coffer[place]: [facility] External Provider IMG US PROCEDURES Final Result * SARS-CoV-2 RNA, Influenza A/B, and RSV RNA, Ql NAAT (07/23/2024 12:47 PM EST) Influenza A PCR NEGATIVE Negative [facility] Influenza B PCR NEGATIVE Negative [facility] Resp Syncy Virus RNA Qual PCR NEGATIVE Negative [facility] SARS COV2 PCR NEGATIVE Negative [facility] Comment:All test results mus t be [...] use by authorized laboratories.Testing performed on the [employer] GeneXpert utilizingreal-time RT-PCR.All SARS CoV2 and positive influenza A/B results arereported to [facility]. 07/23/2024 12:4 7 PM EST 07/23/2024 12:55 PM EST us Generic External Data Provider LAB MICROBIOLOGY - GENERAL ORDERABLES Final Result [facility] [address] [place] [phone] * (ABNORMAL) CBC auto differential (07/23/2024 12:47 PM EST) White Blood Count 4.9 4.8 - 10.8 X10*3/uL [facility] Red Blood Count 4.20(L) 4.60 - 5.80 X10*6/uL [facility] Hemoglobin 12.5(L) 14.0 - 18.0 g/dl [facility] Hematocrit 37.2(L) 42.0 - 52.0 % [facility] Mean Corpuscular Volume 88.6 80.0 - 98.0 fL [facility] Mean Corpuscular Hemoglobin 29.8 27.0 - 33.0 pg [facility] Mean Corpuscular HGB Conc 33.6 31.0 - 36.0 g/dl [facility] Red Cell Distribution Width 12.4 11.0 - 16.0 % [facility] Platelet Count 178 160 - 400 X10*3/uL [facility] Mean Platelet Volume 9.9 9.4 - 12.4 fL [facility] Neutrophils Percent Auto 65.7 45 - 73 % [facility] Imm Gran Pct Auto 0.4 0.0 - 0.4 % [facility] Lymphocytes Percent Auto 26.1 20 - 40 % [facility] Monocytes Percent Auto 5.8 2 - 11 % [facility] Eosinophils Percent Auto 1.4 0 - 4 % [facility] Basophils Percent Auto 0.6 0 - 2 % [facility] NRBC Pct Auto 0.0 0.0 - 0.2 /100WBC [facility] Neutrophils Absolute Auto 3.2 2.0 - 8.3 x10*3/uL [facility] Imm Gran Abs Auto 0.02 0.00 - 0.03 X10*3/uL [facility] Lymphocytes Absolute Auto 1.3 1.2 - 4.9 X10*3/uL [facility] Monocytes Absolute Auto 0.3 0.1 - 1.2 X10*3/uL [facility] Eosinophils Absolute Auto 0.1 0.0 - 0.4 X10*3/uL [facility] Basophils Absolute Auto 0.0 0.0 - 0.2 X10*3/uL [facility] NRBC Abs Auto 0.000 0.0 - 0.012 X10*3/uL [facility] 07/23/2024 12:4 7 PM EST 07/23/2024 12:55 PM EST us Generic External Data Provider LAB BLOOD ORDERAB LES Final Result Performing Organization Address City/State/[facility] Co de Phone Number [facility] [address] [place] [phone] * (ABNORMAL) Prothrombin Time-INR (07/23/2024 12:47 PM EST) Prothrombin Time 13.9(H) 10.9 - 12.4 SEC [facility] INTERNATIONAL NORM RATIO 1.2(H) 0.9 - 1.1 [facility] Comment:INTERNATIONAL NORMAL IZED RATIO (INR) [...] ORDERAB LES Final Result Performing Organization Address [facility] Co de Phone Number [facility] [address] [place] [phone] * Magnesium (07/23/2024 12:47 PM EST) Pathologist [facility] Magnesium 1.8 1.6 - 2.6 mg/dL [facility] 07/23/2024 12:4 7 PM EST 07/23/2024 12:55 PM EST Generic External Data Provider LAB BLOOD ORDERAB LES Final Result Performing Organization Address [facility] Co nh Phone Number [facility] [address] [place] [phone] * Lipase (07/23/2024 12:47 PM EST) Pathologist [facility] Lipase 12 8 - 78 U/L [facility] 07/23/2024 12:4 7 PM EST 07/23/2024 12:55 PM EST Generic External Data Provider LAB BLOOD ORDERAB LES Final Result Performing Organization Address [facility] de Phone Number [facility] [address] [place] [phone] * (ABNORMAL) Comprehensive Metabolic Panel (07/23/2024 12:47 PM EST) Pathologist [facility] Sodium 141 135 - 145 mmol/L [facility] Potassium 3.8 3.3 - 5.1 mmol/L [facility] Chloride 106 96 - 108 mmol/L [facility] Carbon Dioxide 29 22 - 29 mmol/L [facility] Anion Gap 10(L) 12 - 20 [facility] Urea Nitrogen (BUN) 14 9 - 16 mg/dL [facility] Creatinine, Serum 0.83 0.5 - 1.4 mg/dL [facility] Creatinine Clr Calc Pharmacy 102.6 [facility] Comment:eGFR (calculated fro m the MDRD study equation) and eCrCl(calculated from the Cockcroft-Gault equation) are based ondifferent parameters and may not yield comparable results.If eCrCl result is absurd, please check patient'sheight/weight. Estimated Glomerular Filt Rate >60 [facility] Comment:Chronic Kidney Disea se: Estimated GFR < 60 mL/min/1.53k7Eozngl Kidney Disease: Estimated GFR < 15 mL/min/1.73m2 Glucose 94 60 - 115 mg/dL [facility] Calcium 8.5 8.4 - 10.2 mg/dL [facility] Bilirubin, Total 0.5 0.0 - 1.0 mg/dL [facility] Aspartate Amino Transferase 21 5 - 37 U/L [facility] Alanine Aminotransferase 14 0 - 40 U/L [facility] Total Protein 6.8 6.5 - 8.0 g/dL [facility] Albumin Level 4.2 3.5 - 5.0 g/dL [facility] Alkaline Phosphatase 116 39 - 117 U/L [facility] 07/23/2024 12:4 7 PM EST 07/23/2024 12:55 PM EST us Generic External Data Provider LAB BLOOD ORDERAB LES Final Result [facility] [address] [place] [phone] * HIV-1/2 Antigen and Antibodies, Fourth Generation, with Reflexes (10/24/2023 10:26 AM EDT) HIV AB/AG Nonreactive Nonreactive [facility] Comment:HIV-1 p24 Ag and/or HIV-1/HIV-2 Ab not detected.A test result that is nonreactive does not exclude thepossibility of exposure to or infection with HIV-1 and/orHIV-2. Nonreactive results in this assay for individualswith prior exposure to HIV-1 and/or HIV-2 may be due toantigen and antibody levels that are below the limit ofdetection of this assay.The [employer] HIV Ag/Ab Combo assay result andsupplemental assay results should be interpreted inconjunction with the patient's clinical presentation,history and other laboratory results. If the results areinconsistent with clinical evidence, additional testing issuggested to confirm the result. Blood Venous blood specimen / Unknown 10/24/2023 10:26 AM EDT 10/24/2023 11:09 AM EDT us Zahraa Roca DO LAB BLOOD ORDERABLES Final R esult [facility] [address] [place] [phone] * (ABNORMAL) Lipid Panel, Standard (10/24/2023 10:26 AM EDT) Triglycerides 48 <150 mg/dL [facility] Comment:Desirable Triglyceri de: less than 150 mg/dLBorderline High Triglyceride 150-199 mg/dLHigh Triglyceride: 200-499 mg/dLVery High Triglyceride: greater than or equal to 5OO mg/dL Cholesterol 174 <200 mg/dL [facility] Comment:Desirable Cholestero l: less than 200 mg/dLBorderline High Cholesterol: 200-239 mg/dLHigh Cholesterol: greater than 239 mg/dL LDL Cholesterol Calculated 113(H) <100 mg/dL [facility] Comment:Desirable LDL: less than 100 mg/dLNear Optimal/Above Optimal LDL: 110- 129 mg/dLBorderline High LDL: 130-159 mg/dLHigh LDL: 160-189 mg/dLVery High LDL: greater than or equal to 190 mg/dL HDL Cholesterol 52 >40 mg/dL [facility] Comment:Desirable HDL: great er than 40 mg/dL Note: This HDL assay may give artificially low results in patients with liver disease. Blood Venous blood specimen / Unknown 10/24/2023 10:26 AM EDT 10/24/2023 1:07 PM EDT Zahraa Roca DO LAB BLOOD ORDERABLES Final R esult [facility] [address] [place] [phone] * Hm Colonoscopy (03/16/2023 9:43 AM EDT) Historical Provider HEALTH MAINTENANCE Final Result * Fecal Globin by Immunochemistry (07/13/2022 12:00 AM EST) Fecal Globin By Immunochemistry SEE NOTE [facility] Comment: ??FECAL GLOBIN BY IMMUNOCHEMISTRY ?Micro Number: ?[id number] ??Test Status: ? Final ??Specimen Source: ?? Insure (tm) fobt test card ??Specimen Quality: ??Adequate ??Fecal Globin: ?Not Detected 07/13/2022 07/28/2022 8:2 7 AM EST Zahraa Abelino DO LAB BODY FLUIDS AND STOOLS O RDERABLES Final Result Performing Organization Address [facility] Co de Phone Number [facility] [address], [place] [address] [facility] [address], ([address]) [place] [address] from Last 3 Months or Most Recently Relevant to Health Maintenance Insurance [facility] STANDARD MEDICARE DENTAL-[facility] MEDICAID STAND ADULT Care Teams Fairing Worker Relationship Specialty Start Date End Date Zahraa Roca DO [address] [place] [phone] PCP - General Family Medicine 07/25/18 Christian Soria FNP [address] [place] [phone] Nurse Practitioner Family Medicine 06/24/23
--- OUTSIDE RECORDS SUMMARY | 2024-09-19 09:08 | XMS_ITS | Encounter Summary ---
Author Organization [email or web address] Address [address] [place] [address] Care Team Providers Care Psychologist Private Practice Name Role Phone Yudijun Zahraa Primary Care Provider + [phone] Christian Soria Unavailable Unavailable Reason for Visit * Reason Onset Date Comments Recommend AUTOMATION DEVELOPER Tier 1 08/29/2024 Encounter Details Date Type Department Care Team ([facility] st Contact Info) Description 08/29/2024 Telephone [facility] [address] [place] [address] Mere Rios, HENRIK Recommend AUTOMATION DEVELOPER Tier 1 Social History Tobacco Use Types [...] RN - 08/29/2024 7:21 AM EST What AUTOMATION DEVELOPER Tier would you like this patient to be? I recommend Tier 1, please let me know if you agree or would rather patient be in another AUTOMATION DEVELOPER Tier. Tier 1 = HIGH RISK, Monthly AUTOMATION DEVELOPER visits Tier 2 = MODerate RISK, Q3 Month visits Tier 3 = LOW RISK = Q4-6 month visits documented in this encounter Plan of Treatment Upcoming Encounters Date Type Department Care Team (Late st Contact Info) Description 10/10/2024 9:00 AM EDT Clinical Support [facility] [address] [place] [address] Mere Rios, RN documented as of this encounter Visit Diagnoses Not on filedocumented in this encounter Additional Health Concerns Assessment Noted Time PHQ-9 Depression Total Score: 0 11/28/19 24 11:23 AM EDT documented as of this encounter Care Teams Psychologist Private Practice Relationship Specialty Start Date End Date Zahraa Roca DO [address] [place] [address] PCP - General Family Medicine 07/25/18 Christian Soria FNP [address] [place] [address] Nurse Practitioner Family Medicine 06/24/23 documented as of this encounter
--- OUTSIDE RECORDS SUMMARY | 2024-09-19 09:08 | XMS_ITS | Encounter Summary ---
Author Organization [employer] Address [address] [place] [address] 7 [place] [address] Care Team Providers Care Laundry Room Attendant Name Role Phone Zahraa Roca DO Primary Care Provider + [phone] Christian Soria Unavailable Unavailable Reason for Visit * Reason Onset Date Comments Appt question 08/09/2024 Encounter Details Date Type Department Care Team (Late st Contact Info) Description 08/09/2024 Telephone [facility] [address] [place], [place] [phone] Zahraa Roca DO [address] [place], [place] [phone] Appt question Social History Tobacco Use Types [...] aug appt its for that. Any questions [phone] documented in this encounter Plan of Treatment Upcoming Encounters Date Type Department Care Team (Late st Contact Info) Description 10/10/2024 9:00 AM EDT Clinical Support [facility] [address] [place] [address] Mere Rios RN documented as of this encounter Visit Diagnoses Not on filedocumented in this encounter Additional Health Concerns Assessment Noted Time PHQ-9 Depression Total Score: 0 11/28/19 24 11:23 AM EDT documented as of this encounter Care Teams Laundry Room Attendant Relationship Specialty Start Date End Date Zahraa Roac DO [address] [place] [address] PCP - General Family Medicine 07/25/18 Christian Soria FNP [address] [place] [address] Nurse Practitioner Family Medicine 06/24/23 documented as of this encounter
--- OUTSIDE RECORDS SUMMARY | 2024-09-19 09:08 | XMS_ITS | Encounter Summary ---
Author Organization [employer] Address [address] [place] [address] 7 [place] [address] Care Team Providers Care Mortgage Servicing Specialist Name Role Phone Abelino Zahraa Primary Care Provider + [phone] Christian Soria Unavailable Unavailable Reason for Visit * Reason Onset Date Comments CABLE SPLICING TECHNICIAN Initial completed today 09/12/2024 UTOX Neg BZO. sent out 09/12/2024 Encounter Details Date Type Department Care Team ([facility] st Contact Info) Description 09/12/[address] [facility] MEDICINE [address] [place] [address] Mere Rios RN CABLE SPLICING TECHNICIAN Initial completed today; UTOX Neg BZO. sent [...] - 09/12/2024 10:05 AM EST Pt had CABLE SPLICING TECHNICIAN Initial appt today UTOX Neg BZO, sent out for confirmation Pt had 2 Clonazepam remaining, anticipated 4. States he thinks 2 are under his dresser still. documented in this encounter Plan of Treatment Upcoming Encounters Date Type Department Care Team (Late st Contact Info) Description 10/10/2024 9:00 AM EDT Clinical Support [facility] MEDICINE [address] [place] [address] Mere Rios, RN documented as of this encounter Visit Diagnoses Not on filedocumented in this encounter Additional Health Concerns Assessment Noted Time PHQ-9 Depression Total Score: 0 11/28/19 24 11:23 AM EDT documented as of this encounter Care Teams Mortgage Servicing Specialist Relationship Specialty Start Date End Date Zahraa Roca DO [address] [place] [address] PCP - General Family Medicine 07/25/18 Christian Soria FNP [address] [place] [address] Nurse Practitioner Family Medicine 06/24/23 documented as of this encounter
--- OUTSIDE RECORDS SUMMARY | 2024-09-19 09:08 | XMS_ITS | Encounter Summary ---
Author Organization [employer] Address [address] [place] [address] 7 [place] [address] Care Team Providers Care Puppy Sitter Name Role Phone Zahraa Roca DO Primary Care Provider + [phone] Christian Soria Unavailable Unavailable Reason for Visit * Reason Onset Date Comments Patient message 09/12/2024 Encounter Details Date Type Department Care Team ([facility] st Contact Info) Description 09/12/2024 Telephone [facility] MEDICINE [address] [place] [address] Zahraa Roca DO [address] [place], [place] [phone] Patient message Social History Tobacco Use Types [...] 1:08 PM EST TC placed to patient [phone] in regards to below message. Patient reports he is seeing his vascular doctor tomorrow at [facility] and he will discuss the spot on the R thigh with the vascular provider.Patient reports he has applied ice to the lump on his back and it has decreased. Patient informed if the lump does not completely resolve or increases in size again, he should come to the [facility] to be evaluated. Patient verbalized understanding. Patient [...] on my spine, I will go to [facility] for that documented in this encounter Plan of Treatment Upcoming Encounters Date Type Department Care Team (Late st Contact Info) Description 10/10/2024 9:00 AM EDT Clinical Support [facility] MEDICINE [address] [place] [address] Mere Rios, RN documented as of this encounter Visit Diagnoses Not on filedocumented in this encounter Additional Health Concerns Assessment Noted Time PHQ-9 Depression Total Score: 0 11/28/19 24 11:23 AM EDT documented as of this encounter Care Teams Puppy Sitter Relationship Specialty Start Date End Date Zahraa Roca DO [address] [place] [address] PCP - General Family Medicine 07/25/18 Christian Soria FNP [address] [place] [address] Nurse Practitioner Family Medicine 06/24/23 documented as of this encounter
--- OUTSIDE RECORDS SUMMARY | 2024-09-19 09:08 | XMS_ITS | Encounter Summary ---
Author Organization [employer] Address [address] [place] [address] 7 [place] [address] Care Team Providers Care Credit Correspondence Clerk Name Role Phone Zahraa Roca DO Primary Care Provider + [phone] Christian Soria Unavailable Unavailable Reason for Visit * Reason Comments Transition Of Care (Tcm) Encounter Details Date Type Department Care Team ([facility] st Contact Info) Description 09/17/2024 Patient Outreach [facility] MEDICINE [address] [place] [address] Zahraa Roca DO [address] [place], [place] [phone] Transition Of Care (Tcm) Social History Tobacco [...] as of this encounter Progress Notes * Ingris Leroy RN - 09/17/2024 10:17 AM EST Transition of Care Note Cristobal Dov Enriquez is going through a recent transition of care. * Yanira Payne RN - 09/17/2024 10:17 AM EST Hospital Discharges and Admission for [facility] Type of Visit: Emergency Department Date of Admission/Visit: 09/15/24 Date of Discharge: 09/15/24 Facility[place] [facility] Diagnosis: Viral upper respiratory infection, Costochondritis Disposition: Discharged Home Follow-Up Actions Follow-Up Needed: None/self-monitoring Follow-Up Outcome: Left Voicemail (VM full) Initial Contact Date: 09/17/24 Patient Contacted: Unable to leave message, full Patient Status: unknown, RN was unable to speak to patient The full discharge summary is Is available under media scanned document Review Flowsheet [facility] Transition of Care Documentation Type of Visit Date of Admission/Visit Date of Discharge Facility Diagnosis Disposition 07/29/2023 9:58 AM Hospital Admission 07/26/2023 07/28/2023 [facility] S/P total left hip arthroplastyDischarged Home 07/24/2024 12:50 PM Emergency Department 07/23/2024 07/23/2024 [facility] R foot pain Discharged Home 07/26/2024 9:00 AM Emergency Department 07/23/2024 07/23/2024 [facility] Peripheral Vascular Disease and Venous insufficiency Discharged Home 09/17/2024 10:17 AM Emergency Department 09/15/2024 09/15/2024 [facility] Viral upper respiratory infection, Costochondritis Discharged Home Recent Visits Date Type Provider Dept 06/06/24 Office Visit Zahraa Roca, [facility] Medicine 03/12/24 Office Visit Zahraa Roca, [facility] Medicine 10/19/23 Office Visit Zahraa Roca DO [facility] Medicine Showing recent visits within past 365 days with a meds authorizing provider and meeting all other requirements Future Appointments No visits were found meeting these conditions. Showing future appointments within next 150 days with a meds authorizing provider and meeting all other requirements Patient was not educated on hours of operation as RN did not speak to the patient. documented in this encounter Plan of Treatment Upcoming Encounters Date Type Department Care Team (Late st Contact Info) Description 10/10/2024 9:00 AM EDT Clinical Support [facility] MEDICINE [address] [place] [address] Mere Rios RN documented as of this encounter Visit Diagnoses Not on filedocumented in this encounter Additional Health Concerns Assessment Noted Time PHQ-9 Depression Total Score: 0 11/28/19 24 11:23 AM EDT documented as of this encounter Care Teams Credit Correspondence Clerk Relationship Specialty Start Date End Date Zahraa Roca DO [address] [place] [address] PCP - General Family Medicine 07/25/18 Christian Soria FNP [address] [place] [address] Nurse Practitioner Family Medicine 06/24/23 documented as of this encounter
--- OUTSIDE RECORDS SUMMARY | 2024-09-19 09:08 | XMS_ITS | Encounter Summary ---
Author Organization [employer] Address [address] [facility] 7t [place] [address] Care Team Providers Care Installer Technician Name Role Phone Abelino Zahraa CANTOR Primary Care Provider + [phone] Christian Soria Unavailable Unavailable Encounter Details Date Type Department Care Team (Late st Contact Info) Description 04/17/2024 Telephone [facility] ADULT DENTAL [address] [place] [address] Lore Vargas DDS [address] [place] [address] Social History Tobacco Use Types Packs/Day Years [...] Description 10/10/2024 9:00 AM EDT Clinical Support [facility] MEDICINE [address] [place] [address] Mere Rios, HENRIK documented as of this encounter Visit Diagnoses Not on filedocumented in this encounter Additional Health Concerns Assessment Noted Time PHQ-9 Depression Total Score: 0 11/28/19 24 11:23 AM EDT documented as of this encounter Care Teams Installer Technician Relationship Specialty Start Date End Date Zahraa Roca DO [address] [place] [address] PCP - General Family Medicine 07/25/18 Christian Soria FNP [address] [place] [address] Nurse Practitioner Family Medicine 06/24/23 documented as of this encounter
--- OUTSIDE RECORDS SUMMARY | 2024-09-19 09:08 | XMS_ITS | Encounter Summary ---
Author Organization [employer] Address [address] [place] [address] 7 [place] [address] Care Team Providers Care Centrifugal Machine Tender Name Role Phone YudiZahraa barahona Primary Care Provider + [phone] Christian Soria Unavailable Unavailable Reason for Visit * Reason Onset Date Comments [facility] FREELANCE DATA ENTRY Initial X1 08/29/2024 Encounter Details Date Type Department Care Team (Late st Contact Info) Description 08/29/2024 Telephone [facility] MEDICINE [address] [place] [address] Mere Rios RN NCNS FREELANCE DATA ENTRY Initial X1 Social History Tobacco Use Types [...] 10:17 AM EST Pt was NCNS for FREELANCE DATA ENTRY Initial appt today. TC to patient, patient apologized for missing appt. States he has many appts currently and he was waiting on his ride. FREELANCE DATA ENTRY Initial rescheduled for 09/12/24 @ 9:30am. documented in this encounter Plan of Treatment Upcoming Encounters Date Type Department Care Team (Late st Contact Info) Description 10/10/2024 9:00 AM EDT Clinical Support [facility] MEDICINE [address] [place] [address] Mere Rios, RN documented as of this encounter Visit Diagnoses Not on filedocumented in this encounter Additional Health Concerns Assessment Noted Time PHQ-9 Depression Total Score: 0 11/28/19 24 11:23 AM EDT documented as of this encounter Care Teams Centrifugal Machine Tender Relationship Specialty Start Date End Date Zahraa Roca DO [address] [place] [address] PCP - General Family Medicine 07/25/18 Christian Soria FNP 230 [place] [address] Nurse Practitioner Family Medicine 06/24/23 documented as of this encounter
--- OUTSIDE RECORDS SUMMARY | 2024-09-19 09:08 | XMS_ITS | Encounter Summary ---
Author Organization [employer] Address [address] [facility] 7t [place] [address] Care Team Providers Care Lieutenant Governor Name Role Phone Abelino Zahraa Primary Care Provider + [phone] Christian Soria Unavailable Unavailable Reason for Visit * Reason Onset Date Comments Med Refill 09/12/2024 Encounter Details Date Type Department Care Team (Late st Contact Info) Description 09/12/2024 Refill [facility] MEDICINE [address] [place] [address] Mere Rios RN Anxiety Social History Tobacco [...] - 09/12/2024 10:03 AM EST Pt had NUCLEAR EQUIPMENT DESIGN ENGINEER Initial appt today, Tier 1 UTOX Neg BZO, sent out for confirmation Pt had 2 Clonazepam remaining, anticipated 4. States he thinks 2 are under his dresser still. He attends methadone clinic in [place]. documented in this encounter Plan of Treatment Upcoming Encounters Date Type Department Care Team (Late st Contact Info) Description 10/10/2024 9:00 AM EDT Clinical Support [facility] MEDICINE [address] [place] [address] Mere Rios, RN documented as of this encounter Visit Diagnoses Diagnosis Anxiety Anxiety state, unspecified documented in this encounter Additional Health Concerns Assessment Noted Time PHQ-9 Depression Total Score: 0 11/28/19 24 11:23 AM EDT documented as of this encounter Care Teams Lieutenant Governor Relationship Specialty Start Date End Date Zahraa Roca DO 230 [place] [address] PCP - General Family Medicine 07/25/18 Christian Soria FNP [address] [place] [address] Nurse Practitioner Family Medicine 06/24/23 documented as of this encounter
--- OUTSIDE RECORDS SUMMARY | 2024-09-19 09:08 | XMS_ITS | Encounter Summary ---
Author Organization [employer] Address [address] [place] [address] 7 [place] [address] Care Team Providers Care Singer And Unloader Name Role Phone Zahraa Roca DO Primary Care Provider + [phone] Christian Soria Unavailable Unavailable Encounter Details Date Type Department Care Team (Late st Contact Info) Description 10/21/2022 Orders Only [facility] CHC MED & PEDS [address] [place], [place] [phone] Zahraa Andino LPN Social History Tobacco Use [...] 9:00 AM EDT Clinical Support [facility] MEDICINE [address] [place] [address] Mere Rios RN documented as of this encounter Visit Diagnoses Not on filedocumented in this encounter Additional Health Concerns Assessment Noted Time PHQ-9 Depression Total Score: 0 08/24/19 23 2:33 PM EST documented as of this encounter Care Teams Singer And Unloader Relationship Specialty Start Date End Date Zahraa Roca DO [address] [place], [place] [phone] PCP - General Family Medicine 07/25/18 Christian Soria FNP [address] [place] [address] Nurse Practitioner Family Medicine 06/24/23 documented as of this encounter
--- OUTSIDE RECORDS SUMMARY | 2024-09-19 09:08 | XMS_ITS | Encounter Summary ---
Author Organization [employer] Address [address] [place] [address] 7 [place] [address] Care Team Providers Care Nursing Services Manager Name Role Phone Zahraa Roca DO Primary Care Provider + [phone] Christian Soria Unavailable Unavailable Reason for Visit * Reason Onset Date Comments Appointment Request 06/19/2024 Encounter Details Date Type Department Care Team ([facility] st Contact Info) Description 06/19/2024 Telephone [facility] MEDICINE [address] [place], [place] [phone] Zahraa Roca DO [address] [place], [place] [phone] Appointment Request Social History Tobacco Use Types [...] Description 10/10/2024 9:00 AM EDT Clinical Support [facility] MEDICINE [address] [place] [address] Mere Rios, HENRIK documented as of this encounter Visit Diagnoses Not on filedocumented in this encounter Additional Health Concerns Assessment Noted Time PHQ-9 Depression Total Score: 0 11/28/19 24 11:23 AM EDT documented as of this encounter Care Teams Nursing Services Manager Relationship Specialty Start Date End Date Zahraa Roca DO [address] [place] [address] PCP - General Family Medicine 07/25/18 Christian Soria FNP [address] [place] [address] Nurse Practitioner Family Medicine 06/24/23 documented as of this encounter
--- OUTSIDE RECORDS SUMMARY | 2024-09-19 09:08 | XMS_ITS | Encounter Summary ---
Author Organization [employer] Address [address] [place] [address] [facility] [place] [address] Care Team Providers Care Hotel Maid Name Role Phone Zahraa Roca DO Primary Care Provider + [phone] Christian Soria Unavailable Unavailable Reason for Visit * Reason Comments Med Refill Encounter Details Date Type Department Care Team (Late st Contact Info) Description 12/31/2022 Refill [facility] MEDICINE [address] [place] [address] Christian Soria FNP Anxiety Social History Tobacco [...] AM EDT Clinical Support [facility] MEDICINE [address] [place] [address] Mere Rios RN documented as of this encounter Visit Diagnoses Diagnosis Anxiety Anxiety state, unspecified documented in this encounter Additional Health Concerns Assessment Noted Time PHQ-9 Depression Total Score: 0 08/24/19 23 2:33 PM EST documented as of this encounter Care Teams Hotel Maid Relationship Specialty Start Date End Date Zahraa Roca DO [address] [place] [address] PCP - General Family Medicine 07/25/18 Christian Soria FNP [address] [place] [address] Nurse Practitioner Family Medicine 06/24/23 documented as of this encounter
--- OUTSIDE RECORDS SUMMARY | 2024-09-19 09:08 | XMS_ITS | Encounter Summary ---
Author Organization [employer] Address [address] [place] [address] 7 [place] [address] Care Team Providers Care Transmission Calibration Engineer Name Role Phone SuryaZahraa lee Primary Care Provider + [phone] Christian Soria Unavailable Unavailable Reason for Visit * Reason Comments Med Refill Encounter Details Date Type Department Care Team (Late st Contact Info) Description 12/19/2022 Refill [facility] MEDICINE [address] [place] [address] Christian Soria FNP Anxiety Social History Tobacco [...] Description 10/10/2024 9:00 AM EDT Clinical Support [facility] MEDICINE [address] [place] [address] Mere Rios RN documented as of this encounter Visit Diagnoses Diagnosis Anxiety Anxiety state, unspecified documented in this encounter Additional Health Concerns Assessment Noted Time PHQ-9 Depression Total Score: 0 08/24/19 23 2:33 PM EST documented as of this encounter Care Teams Transmission Calibration Engineer Relationship Specialty Start Date End Date Zahraa Roca DO [address] [place] [address] PCP - General Family Medicine 07/25/18 Christian Soria FNP [address] [place] [address] Nurse Practitioner Family Medicine 06/24/23 documented as of this encounter
--- OUTSIDE RECORDS SUMMARY | 2024-09-19 09:08 | XMS_ITS | Encounter Summary ---
Author Organization [employer] Address [address] [facility] 7t [place] [address] Care Team Providers Care Carpet Mechanic Name Role Phone Abelino Zahraa Primary Care Provider + [phone] Christian Soria Unavailable Unavailable Encounter Details Date [...] 10/10/2024 9:00 AM EDT Clinical Support [facility] MEDICINE [address] [place] [address] Mere Rios RN documented as of this encounter Visit Diagnoses Not on filedocumented in this encounter Additional Health Concerns Assessment Noted Time PHQ-9 Depression Total Score: 0 11/28/19 24 11:23 AM EDT documented as of this encounter Care Teams Carpet Mechanic Relationship Specialty Start Date End Date Zahraa Roca DO [address] [place] [address] PCP - General Family Medicine 07/25/18 Christian Soria FNP [address] [place] [address] Nurse Practitioner Family Medicine 06/24/23 documented as of this encounter
--- OUTSIDE RECORDS SUMMARY | 2024-09-19 09:08 | XMS_ITS | Encounter Summary ---
Author Organization [employer] Address [address] [place] [address] 7 [place] [address] Care Team Providers Care Windows Security Analyst Name Role Phone Zahraa Roca DO Primary Care Provider + [phone] Christian Soria Unavailable Unavailable Reason for Visit * Reason Onset Date Comments PT-1 07/13/2024 Encounter Details Date Type Department Care Team (Late st Contact Info) Description 07/13/2024 Telephone [facility] MEDICINE [address] [place], [place] [phone] Zahraa Roca DO [address] [place], [place] [phone] PT-1 Social History Tobacco Use Types Packs/Day [...] Clinical Support [facility] MEDICINE [address] [place] [address] Mere Rios RN documented as of this encounter Visit Diagnoses Not on filedocumented in this encounter Additional Health Concerns Assessment Noted Time PHQ-9 Depression Total Score: 0 11/28/19 24 11:23 AM EDT documented as of this encounter Care Teams Windows Security Analyst Relationship Specialty Start Date End Date Zahraa Roca DO [address] [place] [address] PCP - General Family Medicine 07/25/18 Christian Soria FNP [address] [place] [address] Nurse Practitioner Family Medicine 06/24/23 documented as of this encounter
--- OUTSIDE RECORDS SUMMARY | 2024-09-19 09:08 | XMS_ITS | Encounter Summary ---
Author Organization [employer] Address [address] [facility] [address] 7t [place] [address] Care Team Providers Care Sighter Name Role Phone Abelino Zahraa Primary Care Provider + [phone] Christian Soria Unavailable Unavailable Encounter Details Date Type Department Care Team (Late st Contact Info) Description 11/03/2023 Orders Only [facility] MEDICINE [address] [place] [address] Provider, MD Hiral Social History Tobacco Use [...] Clinical Support [facility] MEDICINE [address] [place] [address] Mere Rios RN documented as of this [...] documented as of this encounter Care Teams Sighter Relationship Specialty Start Date End Date [place] [address] PCP - General Family Medicine 07/25/18 Christian Soria FNP [address] [place] [address] Nurse Practitioner Family Medicine 06/24/23 documented as of this encounter
--- OUTSIDE RECORDS SUMMARY | 2024-09-19 09:08 | XMS_ITS | Encounter Summary ---
Author Organization [email or web address] Address [address] [place] [address] [facility] [place] [address] Care Team Providers Care Water Plant Pump Operator Supervisor Name Role Phone Zahraa Roca DO Primary Care Provider + [phone] Christian Soria Unavailable Unavailable Reason for Visit * Reason Onset Date Comments Med Refill 12/31/2022 Encounter Details Date Type Department Care Team (Late st Contact Info) Description 12/31/2022 Telephone [facility] MEDICINE [address] [place] [address] Zahraa Roca DO 230 [place], [place] [phone] Med Refill Social History Tobacco Use Types [...] Description 10/10/2024 9:00 AM EDT Clinical Support [facility] MEDICINE [address] [place] [address] Mere Rios, HENRIK documented as of this encounter Visit Diagnoses Not on filedocumented in this encounter Additional Health Concerns Assessment Noted Time PHQ-9 Depression Total Score: 0 08/24/19 23 2:33 PM EST documented as of this encounter Care Teams Water Plant Pump Operator Supervisor Relationship Specialty Start Date End Date Zahraa Roca DO [address] [place] [address] PCP - General Family Medicine 07/25/18 Christian Soria FNP [address] [place] [address] Nurse Practitioner Family Medicine 06/24/23 documented as of this encounter
--- OUTSIDE RECORDS SUMMARY | 2024-09-19 09:08 | XMS_ITS | Encounter Summary ---
Author Organization [employer] Address [address] [place] [address] [facility] [place] [address] Care Team Providers Care Manager Route Name Role Phone Zahraa Roca DO Primary Care Provider + [phone] Christian Soria Unavailable Unavailable Encounter Details Date Type Department Care Team (Late st Contact Info) Description 07/06/2022 Orders Only [facility] CHC MED & PEDS [address] [place] [address] Zahraa Andino LPN Social History Tobacco Use [...] 10/10/2024 9:00 AM EDT Clinical Support [facility] MEDICINE [address] [place] [address] Mere Rios RN documented as of this encounter Visit Diagnoses Not on filedocumented in this encounter Care Teams Manager Route Relationship Specialty Start Date End Date Zahraa Roca DO [address] [place] [address] PCP - General Family Medicine 07/25/18 Christian Soria FNP [address] [place] [address] [place] [address] Nurse Practitioner Family Medicine 06/24/23 documented as of this encounter
--- OUTSIDE RECORDS SUMMARY | 2024-09-19 09:08 | XMS_ITS | Encounter Summary ---
Author Organization [employer] Address [address] [place] [address] 7 [place] [address] Care Team Providers Care Nc[employer] Compliance Internship Name Role Phone Zahraa Roca DO Primary Care Provider + [phone] Christian Soria Unavailable Unavailable Reason for Visit * Reason Onset Date Comments PT1 01/03/2024 Encounter Details Date Type Department Care Team (Late st Contact Info) Description 01/03/2024 Telephone [facility] MEDICINE 230 [place], [place] [phone] Zahraa Roca DO 230 [place], [place] [phone] PT1 Social History Tobacco Use Types Packs/Day [...] facility name: [facility] clinic Facility Address: [address] [place] [address] Escort needed: Y/N: No Do you have a wheelchair: Y/N: No If yes- Manual or electric: none Visits: 7 days a week documented in this encounter Plan of Treatment Upcoming Encounters Date Type Department Care Team ([facility] st Contact Info) Description 10/10/2024 9:00 AM EDT Clinical Support [facility] MEDICINE 230 [place] [address] Mere Rios, HENRIK documented as of this encounter Visit Diagnoses Not on filedocumented in this encounter Additional Health Concerns Assessment Noted Time PHQ-9 Depression Total Score: 0 11/28/19 24 11:23 AM EDT documented as of this encounter Care Teams [employer] Compliance Internship Relationship Specialty Start Date End Date Zahraa Roca DO 230 [place] [address] PCP - General Family Medicine 07/25/18 Christian Soria FNP 230 [place] [address] Nurse Practitioner Family Medicine 06/24/23 documented as of this encounter
--- OUTSIDE RECORDS SUMMARY | 2024-09-19 09:08 | XMS_ITS | Encounter Summary ---
Author Organization [employer] Address [address] [place] [address] 7 [place] [address] Care Team Providers Care Blow Mold Operator Name Role Phone Zahraa Roca DO Primary Care Provider + [phone] Christian Soria Unavailable Unavailable Reason for Visit * Reason Onset Date Comments Med Refill 08/20/2024 Encounter Details Date Type Department Care Team (Late st Contact Info) Description 08/20/2024 Refill [facility] MEDICINE 230 [place], [place] [phone] Zahraa Roca DO 230 [place], [place] [phone] Anxiety Social History Tobacco Use Types Packs/Day [...] 1 MG tablet To be sent to: [facility] - [place], [place] - [address] [place] [address] documented in this encounter Plan of Treatment Upcoming Encounters Date Type Department Care Team (Late st Contact Info) Description 10/10/2024 9:00 AM EDT Clinical Support [facility] MEDICINE 230 [place] [address] Mere Rios RN documented as of this encounter Visit Diagnoses Diagnosis Anxiety Anxiety state, unspecified documented in this encounter Additional Health Concerns Assessment Noted Time PHQ-9 Depression Total Score: 0 11/28/19 24 11:23 AM EDT documented as of this encounter Care Teams Blow Mold Operator Relationship Specialty Start Date End Date Zahraa Roca DO 230 [place] [address] PCP - General Family Medicine 07/25/18 Christian Soria FNP 230 [place] [address] Nurse Practitioner Family Medicine 06/24/23 documented as of this encounter
--- OUTSIDE RECORDS SUMMARY | 2024-09-19 09:08 | XMS_ITS | Encounter Summary ---
Author Organization [employer] Address [address] [place] [address] 7 [place] [address] Care Team Providers Care Comp Field Case Manager Name Role Phone Zahraa Roca DO Primary Care Provider + [phone] Christian Soria Unavailable Unavailable Encounter Details Date Type Department Care Team (Late st Contact Info) Description 09/20/2022 Orders Only [facility] [address] [place], [place] [phone] Zahraa Andino LPN Social History Tobacco Use [...] 9:00 AM EDT Clinical Support [facility] MEDICINE 230 [place] [address] Mere Rios RN documented as of this encounter Visit Diagnoses Not on filedocumented in this encounter Additional Health Concerns Assessment Noted Time PHQ-9 Depression Total Score: 0 08/24/19 23 2:33 PM EST documented as of this encounter Care Teams Comp Field Case Manager Relationship Specialty Start Date End Date Zahraa Roca DO 230 [place], [place] [phone] PCP - General Family Medicine 07/25/18 Christian Soria FNP [address] [place] [address] Nurse Practitioner Family Medicine 06/24/23 documented as of this encounter
--- OUTSIDE RECORDS SUMMARY | 2024-09-19 09:08 | XMS_ITS | Encounter Summary ---
Author Organization [employer] Address [address] [place] [address] 7 [place] [address] Care Team Providers Care Nutrition Faculty Member Name Role Phone Zahraa Roca DO Primary Care Provider +1 [phone] Christian Soria Unavailable Unavailable Encounter Details Date Type Department Care Team (Late st Contact Info) Description 08/31/[address] [address] Zahraa Roca DO [address] [place] [address] Social History Tobacco Use Types Packs/Day Years [...] Description 10/10/2024 9:00 AM EDT Clinical Support [address] [phone] Mere Rios RN documented as of this encounter Visit Diagnoses Not on filedocumented in this encounter Additional Health Concerns Assessment Noted Time PHQ-9 Depression Total Score: 0 08/24/19 23 2:33 PM EST documented as of this encounter Care Teams Nutrition Faculty Member Relationship Specialty Start Date End Date Zahraa Roca DO 230 [place] [address] PCP - General Family Medicine 07/25/18 Christian Soria FNP 230 [place] [address] Nurse Practitioner Family Medicine 06/24/23 documented as of this encounter
== END 2024-09-19 09:02 | disposition home or self-care (01) ==
PROVIDERS: PCP Family Medicine; Referring Provider Surgery Vascular Surgery; Visit Provider Surgery
DX: D04.71 Carcinoma in situ of skin of right lower limb, including hip (principal); L91.8 Other hypertrophic disorders of the skin
CPT/HCPCS: 11102; 11604; 99214

== ENCOUNTER 2024-10-04 09:28 | Outpatient (AMB) | payer MEDICARE, MEDICAID, SELFPAY ==
--- NOTE | 2024-10-04 09:43 | A.OFFVIS_ITS ---
Intake Visit Reasons: s/p excision lesion Intake Note: Patient here s/p WLE X2 lesions. 1. Rt hip 2. Sup to Rt hip lesion. Reports incision healing well. Patient c/o: no concerns. WLE: 09-19-24. Tree Deadener Required: No Accompanied by: Self / Same As Patient Allergies No Known Allergies Allergy (Verified 10/04/24 09:45) HPI Comments Details: Patient presents for follow-up. He has no wound issues or complaints. Pathology results demonstrated microscopic positive margins. [facility] Medical History Rash Family history of pseudocholinesterase deficiency Alcohol dependence in remission Hx of substance abuse History of COVID-19 Chronic right hip pain Degenerative disc disease Chronic back pain History of hepatitis C Chronic anemia History of alcohol abuse Anxiety Surgical History History of left hip replacement History of total right hip arthroplasty Hx of colonoscopy History of surgery History of right inguinal hernia repair History of laminectomy Family History Mother Osteoarthritis Social History Household Members: None Housing: Apartment Housing Other:: second floor Are you a primary daytime caregiver to a significant other at home: No Do you presently have visiting nurse or other home services: No Alcohol intake: never Comment: Pt. refused supervision/ steady walking with crutches. Patient Tobacco Use Status: Current someday Tobacco user Tobacco use type: Cigarette Cigarettes Per Day: 3 Years Smoked: 39 Substance Use Type: Amphetamines and Crack/Cocaine service: No Current occupational status: disabled Physical Exam Skin Other: Right groin incision clean dry and intact Assessment & Plan Assessment & Plan (1) Squamous cell carcinoma of skin: Code(s): C44.92 - Squamous cell carcinoma of skin, unspecified Category: Surgical Plan Current recommendation is to have a formal wide local excision for clear margins. Patient agrees with this. Risks, benefits, alternatives of excision of right groin squamous cell carcinoma of the skin were reviewed with the patient and included but not limited to bleeding, infection, recurrence, numbness, pain, scarring the patient wished to proceed. All questions answered. Arrangements were made for this on a day which is convenient for him. Coding Level of Care Code Est Pt Level 5 (33163) Diagnoses Squamous cell carcinoma of skin C44.92
--- OUTSIDE RECORDS SUMMARY | 2024-10-04 11:08 | XMS_ITS | Encounter Summary ---
Author Organization [employer] Address [address] [place] [address] [place] [address] Care Team Providers Care Quality Compliance Coordinator Name Role Phone Zahraa Roca DO Primary Care Provider [phone] Christian Soria Unavailable Unavailable Encounter Details Date Type Department Care Team (Late st Contact Info) Description 07/06/2022 Orders Only [facility] MED & PEDS [address] [place] [address] Zahraa Andino LPN Social History Tobacco Use [...] Care Team (Late st Contact Info) Description 10/11/2024 10:30 AM EDT Clinical Support [facility] MEDICINE [address] [place] [address] Mere Rios, RN documented as of this encounter Visit Diagnoses Not on filedocumented in this encounter Care Teams Quality Compliance Coordinator Relationship Specialty Start Date End Date Zahraa Roca DO [address] [place] [id number] PCP - General Family Medicine 07/25/18 Christian Soria FNP [address] [place] [phone] Nurse Practitioner Family Medicine 06/24/23 documented as of this encounter
--- OUTSIDE RECORDS SUMMARY | 2024-10-04 11:08 | XMS_ITS | Encounter Summary ---
Author Organization [employer] Address [address] [place] [address] [place] [address] Care Team Providers Care Bank And Savings Securities Trader Name Role Phone Zahraa Roca DO Primary Care Provider [phone] Christian Soria Unavailable Unavailable Reason for Visit * Reason Onset Date Comments Med Refill 12/31/2022 Encounter Details Date Type Department Care Team (Late st Contact Info) Description 12/31/2022 Telephone [facility] MEDICINE [address] [place] [address] Zahraa Roca DO [address] [place], [place] [phone] Med Refill Social History Tobacco Use Types [...] Description 10/11/2024 10:30 AM EDT Clinical Support [facility] MEDICINE [address] [place] [address] Mere Rios, HENRIK documented as of this encounter Visit Diagnoses Not on filedocumented in this encounter Additional Health Concerns Assessment Noted Time PHQ-9 Depression Total Score: 0 08/24/19 23 2:33 PM EST documented as of this encounter Care Teams Bank And Savings Securities Trader Relationship Specialty Start Date End Date Zahraa Roca DO [address] [place] [id number] PCP - General Family Medicine 07/25/18 Christian Soria FNP [address] [place] [phone] Nurse Practitioner Family Medicine 06/24/23 documented as of this encounter
--- OUTSIDE RECORDS SUMMARY | 2024-10-04 11:08 | XMS_ITS | Encounter Summary ---
Author Organization [employer] Address [address] [place] [address] [address] [place] [address] Care Team Providers Care Stone Derrickman And Rigger Name Role Phone Zahraa Roca DO Primary Care Provider + [phone] Christian Soria Unavailable Unavailable Reason for Visit * Reason Onset Date Comments PT-1 04/17/2024 Encounter Details Date Type Department Care Team (Late st Contact Info) Description 04/17/2024 Telephone [facility] MEDICINE [address] [place] [address] Zahraa Roca DO [address] [place], [place] [phone] PT-1 Social History Tobacco Use Types Packs/Day [...] Y/N: Yes Provider name or facility name: [facility] Address: [address] [place] [id number] Escort needed: Y/N: No Do you have a wheelchair: Y/N: No If yes- Manual or electric: N/A Visits: Twice a month documented in this encounter Plan of Treatment Upcoming Encounters Date Type Department Care Team ([facility] st Contact Info) Description 10/11/2024 10:30 AM EDT Clinical Support [facility] MEDICINE [address] [place] [address] Mere Rios RN documented as of this encounter Visit Diagnoses Not on filedocumented in this encounter Additional Health Concerns Assessment Noted Time PHQ-9 Depression Total Score: 0 11/28/19 11:23 AM EDT documented as of this encounter Care Teams Stone Derrickman And Rigger Relationship Specialty Start Date End Date Zahraa Roca DO [address] [place] [address] PCP - General Family Medicine 07/25/18 Christian Soria FNP [address] [place] [phone] Nurse Practitioner Family Medicine 06/24/23 documented as of this encounter
--- OUTSIDE RECORDS SUMMARY | 2024-10-04 11:08 | XMS_ITS | Encounter Summary ---
Author Organization [employer] Address [address] [place] [address] 7 [place] [address] Care Team Providers Care Retail Route Supervisor Name Role Phone Zahraa Roca DO Primary Care Provider + [phone] Christian Soria Unavailable Unavailable Reason for Visit * Reason Onset Date Comments PT-1 07/13/2024 Encounter Details Date Type Department Care Team (Late st Contact Info) Description 07/13/2024 Telephone [facility] MEDICINE [address] [place] [address] Zahraa Roca DO [address] [place], [place] [phone] PT-1 Social History Tobacco Use Types Packs/Day [...] Miscellaneous Notes * Telephone Encounter - Go Reidnandez - 07/13/2024 11:14 AM EST Patient calling [...] Description 10/11/2024 10:30 AM EDT Clinical Support [facility] MEDICINE [address] [place] [address] Mere Rios, HENRIK documented as of this encounter Visit Diagnoses Not on filedocumented in this encounter Additional Health Concerns Assessment Noted Time PHQ-9 Depression Total Score: 0 11/28/19 24 11:23 AM EDT documented as of this encounter Care Teams Retail Route Supervisor Relationship Specialty Start Date End Date Zahraa Roca DO [address] [place] [phone] PCP - General Family Medicine 07/25/18 Christian Soria FNP [address] [place] [phone] Nurse Practitioner Family Medicine 06/24/23 documented as of this encounter
--- OUTSIDE RECORDS SUMMARY | 2024-10-04 11:08 | XMS_ITS | Encounter Summary ---
Author Organization [employer] Address [address] [place] [address] [address], [place] [address] Care Team Providers Care Director Speech And Hearing Name Role Phone Zahraa Roca DO Primary Care Provider +1 [phone] Christian Soria Unavailable Unavailable Encounter Details Date Type Department Care Team (Late st Contact Info) Description 08/12/2022 Orders Only [facility] CHC MED & PEDS [address] [place] [address] Zahraa Andino LPN Social History Tobacco Use [...] Description 10/11/2024 10:30 AM EDT Clinical Support [facility] MEDICINE [address] [place] [address] Mere Rios, HENRIK documented as of this encounter Visit Diagnoses Not on filedocumented in this encounter Care Teams Director Speech And Hearing Relationship Specialty Start Date End Date Zahraa Roca DO [address] [place] [id number] PCP - General Family Medicine 07/25/18 Christian Soria FNP [address] [place] [address] Nurse Practitioner Family Medicine 06/24/23 documented as of this encounter
--- OUTSIDE RECORDS SUMMARY | 2024-10-04 11:08 | XMS_ITS | Clinical Summary ---
Author Organization [employer] Address [address] [place] [address] 7[address] [place] [address] Care Team Providers Care Fly Frame Tender Name Role Phone Zahraa Roca DO Primary Care Provider + [phone] Christian Soria Unavailable Unavailable Allergies No known [...] any issues or concerns, he should contact [facility]. All his questions were answered. He [...] organization. Date Type Department Care Team Description 10/03/[address] [address] Zahraa Roca DO Appointment Request 10/02/2024 Patient Outreach [address] [address] Zahraa Roca DO Care Coordination (CHW outreach for SDOH PT-1 - LVM ) 10/02/[address] [address] Zahraa Roca DO PT-1 10/01/2024 Patient Outreach [address] [address] Zahraa Roca DO Care Coordination (CHW outreach for SDOH PT-1 and food needs-referral completed /) 10/01/2024 Telephone [address] [place] [address] Zahraa Roca DO PT-1 (/) 09/21/2024 Telephone [facility] [place] [address] Zahraa Roca DO Recall Letter (Recall Letter sent 09/21/24.) 09/20/2024 Telephone [facility] [place] [address] Mere Rios, HENRIK UTOX confirmation Neg BZO 09/19/2024 Orders Only GENERIC EXTERNAL DATA DEPARTMENT Provider, Generic External Data 09/17/2024 Patient Outreach [facility] [place] [address] Zahraa Roca DO Transition Of Care (Tcm) 09/12/2024 9:30 AM EST Clinical Support [facility] [place] [address] Mere Rios, HENRIK Anxiety (Primary Dx); Opioid dependence on agonist therapy ([facility]/H[facility]) 09/12/2024 Telephone [facility] [place] [address] Zahraa Roca DO Patient message 09/12/2024 Telephone [facility] [place] [address] Mere Rios, RN SHIELD RUNNER Initial completed today; UTOX Neg BZO. sent out 09/12/2024 Refill [facility] [place] [address] Mere Rios RN Anxiety 09/12/2024 Travel 08/29/2024 Telephone [facility] [place] [address] Mere Rios, RN NCNS SHIELD RUNNER Initial X1 08/29/2024 Telephone [facility] [place] [address] Mere Rios, HENRIK Recommend SHIELD RUNNER Tier 1 08/20/2024 Refill [facility] [place] [address] Zahraa Roca DO Anxiety 08/09/2024 Telephone [facility] [place] [address] Zahraa Roca DO Appt question 08/08/[address] [address] Zahraa Roca DO 08/03/[address] [address] Zahraa Roca DO Appointment Request 07/24/2024 Patient Outreach [facility] [address] [place] [address] Zahraa Roca DO Transition Of Care (Tcm) 07/23/2024 Orders Only GENERIC EXTERNAL DATA DEPARTMENT Provider, Generic External Data 07/17/2024 Patient Outreach [address] [address] Zahraa Roca DO Care Coordination (CHW outreach for SDOH PT-1 - LVM ) 07/16/[address] [address] Zahraa Roca DO callback requested 07/16/[address] [place] [address] Zahraa Roca DO Anxiety 07/13/[address] [address] Zahraa Roca DO PT-1 07/13/[address] [address] Zahraa Roca DO Nurse Triage 07/12/[address] [address] Zahraa Roca DO 07/10/2024 Orders Only [address] [address] Zahraa Roca DO Lesion of subcutaneous tissue (Primary Dx) from Last 3 Months Immunizations Name Administration [...] your housing situation today? I have valentin brittnee 03/12/[address] you li [...] Description 10/11/2024 10:30 AM EDT Clinical Support [facility] [address] [place] [address] Mere Rios, RN Health Maintenance Due Date [...] Procedure Name Priority Date/Time Associated Diagnosis Comments GROSS AND MICROSCOPIC LEVEL 3 Routine 09/19/2024 9:00 AM EST POCT MARIO-14 URINE DRUG SCREEN Routine 09/12/2024 [...] Recently Relevant to Health Maintenance Results * Gross and Microscopic Level 3 (09/19/2024 9:00 AM EST) 09/19/2024 9:00 AM EST 09/19/2024 12:05 PM EST [facility] - 09/20/2024 3:24 PM EST ----- ------- Name: Cristobal Enriquez ? Age/Sex: 54/M ? : 1970 Unit#: [id number] ?? Attend Dr: Sergei Christine MD ?Re09/19/24 ?Status: DEP REF ? Location: HO.LNP ?Disch: ? ----- ------- SPEC : [id number] ? RECD: 09/19/24-1204 ? STATUS: ??SOUT ? REQ NUM: [id number] ? NGA: 09/19/24 ? SUBM DR: Sergei Christine MD ? ENTERED: ??09/19/24-1208 ?SP TYPE: Surgical ? OTHR DR: Zahraa Roca DO ? ORDERED: ??Gross Micro L3/2 ? Diagnosis ?? A. ??Skin, right hip irregular lesion, excision: ?? -Squamous cell carcinoma in situ. ?-Peripheral margin is focally positive for tumor. ?-Deep margin is free of tumor. ? B. Skin, superior to right hip lesion, excision: ?? -Benign fibroepithelial polyp. ?Clinical History A. Lesion-irregular border, change in color B. Superior to right hip lesion FEP ?Microscopic Description Microscopic sections show Part A has acanthotic squamous epithelium with full-thickness keratinocyte atypia. ??The crowded cells have enlarged, irregular nuclei with many mitoses and apoptosis. ??No invasion is identified. ? Material Received ?? A. Right hip irregular lesion ?? B. Superior to right hip lesion FEP ? Gross Description Received in two parts. Part A: ??Received in formalin labeled ?right hip? is a 2.5 x 1.4 unoriented elliptical portion of sánchez and subcutaneous tissue excised to a maximum depth of 0.35 cm. ??The skin surface displays a central peripherally well-demarcated, focally hypopigmented, focally keratotic sánchez-white and sánchez-brown lesion measuring 1.5 x 1.4 x 0.2 cm which focally abuts the peripheral margins of resection and is located 0.5 cm from the nearest tip margins. ??The margins are inked and the specimen is serially sectioned to reveal homogeneous sánchez-white subjacent fibrous dermal tissue. ??Cross-sections through the width of the specimen, to include the entire lesion, are submitted in cassette A1. ??The tip portions are retained in formalin. Part B: ??Received in formalin labeled ?superior lesion right hip? is 0.3 cm sánchez elliptical- papular fragment of skin and subjacent fibrous dermal tissue, submitted in toto in a cassette labeled B. ? CONTINUED ON NEXT PAGE ----- ------- Name: BarringtontyEitanCristobal J ? Age/Sex: 54/M ? : 1970 Unit#: [id number] ?? Attend Dr: Sergei Christine MD ?Re09/19/24 ?Status: DEP REF ? Location: HO.LNP ?Disch: ? ----- ------- SPEC : [id number] ? RECD: 09/19/24 ? STATUS: ??SOUT ? REQ NUM: [id number] ? NGA: 09/19/24 ? SUBM DR: Sergei Christine MD ? ENTERED: ??09/19/24 ?SP TYPE: Surgical ? OTHR DR: Zahraa Roca DO ? ORDERED: ??Gross Micro L3/2 ? Gross Description ?(Continued) CEDS This case was reviewed intradepartmentally. ??Results given to Dr. Christine by secure text by Dr. Naik on 09/20/24 at 3:22 pm. Copies To: ?? Zahraa Roca DO ?? [facility] ?? [address] [facility] ?? [place] [address] ?? [phone] ?? Sergei Christine MD ?? [facility] ?? [address] ?? [place] ?? [phone] ?? [email or web address] ----- ------- Signed (signature on file) Lore Naik 09/20/24 1524 ? ----- ------- ? END OF REPORT ? us Generic External Data Provider LAB CYTOLOGY ORDE RABTAMI Final Result [facility] [address] [place] [place], [place] [phone] * (ABNORMAL) POCT MARIO-14 Urine Drug Screen (09/12/2024 9:54 AM EST) THC Positive Benzodiazepines Screen, Urine Negative Methadone Screen, Urine Positive Urine Urine specimen obtained by clean catch procedure / Unknown 09/12/2024 9:54 AM EST Mere Smalls RN - 09/12/2024 9:54 AM EST UTOX cup Lot#[id number] Exp. 03/13/26 Internal Pass Control Zahraa Roca DO POINT OF CARE TEST ENTER/JOANNA T ORDERABLES Final Result * Drug Monitoring, Benzodiazepines, Quantitative, Urine (09/12/2024 9:30 AM EST) Nordiazepam, GCMS Urine NEGATIVE [facility] Oxazepam, GCMS Urine NEGATIVE [facility] Lorazepam GCMS Urine NEGATIVE [facility] Alprazolam, GCMS Urine NEGATIVE [facility] Alphahydroxytriazolam, GCMS Ur NEGATIVE [facility] Temazepam, GCMS Urine NEGATIVE [facility] Alphahydroxymidazolam,GC MS Ur NEGATIVE [facility] Aminoclonazepam, GCMS Urine NEGATIVE [facility] Flurazepam Metabolite,GCMS Ur NEGATIVE [facility] Benzodiazepines Comments SEE NOTE [facility] Comment:This drug testing is for medical treatment only. Analysiswas performed as non-forensic testing and these resultsshould be used only by healthcare providers to renderdiagnosis or treatment, or to monitor progress of medicalconditions.LDT Notes:Confirmation tests were developed and their analyticalperformance characteristics have been determined by [employer]. It has not been cleared or approved by the FDA.This assay has been validated pursuant to the CLIAregulations and is used for clinical purposes.Healthcare Providers needing Interpretation assistance,please contact us at [phone] ( ) M-F,8am to 10pm ESTTHIS TEST PERFORMED AT:[facility] [place] [phone] DIRECTOR: SOCRATES MATHIAS MD Urine (Urine, Random) 09/12/2024 9:30 AM EST 09/12/2024 4:41 PM EST us Zahraa Roca DO LAB URINE ORDERABLES Final R esult [facility] [address] [place] [address] [phone] * XR Elbow 1-2 Views Right (08/15/2024 10:35 PM EST) Anatomical Region Laterality Modality Upper Extremities, Elbow Right Radiogr aphic Imaging 08/15/2024 10:3 5 PM EST Narrative 08/15/2024 10:37 PM EST ? [facility] ?[address] ?[place] [address] ?XRay Report ? Signed ? Patient: Cristobal Enriquez ?MR#: [id number] ?? 54 ? : 1970 ?Acct:[id number] ? Age/Sex: 54 / M ?ADM Date: 08/15/24 ? Loc: HO.US ? Attending Dr: Zamzam Richmond PA-C ? Ordering Physician: Sergei Christine MD ?? Date of Service: 08/15/24 ?? Procedure(s): XR elbow RT 2V ?? Accession Number(s): [id number] ? cc: Zahraa Roca DO; Sergei Christine [...] ? DD/ 34 ? TD/TT: 08/15/242234 ? Boathouse Keeper: ? Procedure Note Donlaytonter, Image - 08/15/[address] [address] XRay Report Signed Patient: Cristobal Enriquez JMR#: [id number] 54 : 1970Acct:[id number] Age/Sex: 54 / MADM Date: 08/15/24 Loc: HO.US Attending Dr: Zamzam Richmond PA-C Ordering Physician: Sergei Christine MD Date of Service: 08/15/24 Procedure(s): XR elbow RT 2V Accession Number(s): [id number] cc: Zahraa Roca DO; Sergei Christine MD [...] in OV> 08/15/242235 DD/ 34 TD/TT: 08/15/242234 Boathouse Keeper: [facility] External Provider IMG XR PROCEDURES Edited Result - Final * VASC US Lower Extremity Venous Insufficiency Bilateral (08/15/2024 8:40 AM EST) 08/15/2024 8:40 AM EST Narrative [facility] - 08/20/2024 7:43 AM EST ? [facility] ?[address] ?[place] [address] ? Ultrasound Report ? Signed ? Patient: Szydlo,Cristobal J ?MR#: [id number] ?? 54 ? : 1970 ?Acct:[id number] ? Age/Sex: 54 / M ?ADM Date: 08/15/24 ? Loc: HO.US ? Attending Dr: Zamzam Richmond PA-C ? Ordering Physician: Zamzam Richmond PA-C ?? Date of Service: 08/15/24 ?? Procedure(s): US venous insuf bilat ?? Accession Number(s): [id number] ? cc: Zahraa Roca DO; Zamzam Richmond [...] Sears MD ??08/20/2024 07:40 AM ?? EST ? Dictated By: ?Boris Lovett MD ? Signed By: ?<Electronically signed by Boris Bates MD in OV> ? 08/20/24 0740 ? DD/ 0840 ? TD/TT: 08/15/24 0930 ? Boathouse Keeper: ? Procedure Note Aziza, Image - 08/20/[address] [address] Ultrasound Report Signed Patient: Cristobal Enriquez R#: [id number] 54 : 1970Acct:[id number] Age/Sex: 54 / MADM Date: 08/15/24 Loc: HO. Attending Dr: Zamzam Richmond PA-C Ordering Physician: Zamzam Richmond PA-C Date of Service: 08/15/24 Procedure(s): US venous insuf bilat Accession Number(s): [id number] cc: Zahraa Roca DO; Zamzam Richmond PA-C [...] OV> 08/20/24 0740 DD/ 0840 TD/TT: 08/15/24 0925 Boathouse Keeper: us [facility] External Provider CV VASC ULAR PROCEDURES Edited Result - Final [facility] [address] [place] [address] * US VENOUS DUPLEX LE RT (07/23/2024 5:16 PM EST) Anatomical Region Laterality Modality Abdomen Ultrasound 07/23/2024 5:16 PM EST Narrative 07/23/2024 5:17 PM EST ? [facility] ?[address] ?[place] [address] ? Ultrasound Report ? Signed ? Patient: Cristobal Enriquez J ?MR#: [id number] ?? 54 ? : 1970 ?Acct:[id number] ? Age/Sex: 54 / M ?ADM Date: 07/23/24 ? Loc: HO.ED ? Attending Dr: ? Ordering Physician: Raul Almaguer ?? Date of Service: 07/23/24 ?? Procedure(s): US venous duplex LE RT ?? Accession Number(s): [id number] ? cc: Zahraa Roca DO; Raul Almaguer [...] MD in OV> ?07/23/24 1717 ? DD/ 171 ? TD/TT: 07/23/241715 ? Boathouse Keeper: ? Procedure Note Denys Ervin - 07/23/[address] [address] Ultrasound Report Signed Patient: Cristobal Enriquez R#: [id number] 54 : 1970Acct:[id number] Age/Sex: 54 / MADM Date: 07/23/24 Loc: HO.ED Attending Dr: Ordering Physician: Raul Almaguer Date of Service: 07/23/24 Procedure(s): US venous duplex LE RT Accession Number(s): [id number] cc: Zahraa Roca DO; Raul Almaguer CLINICAL [...] in OV> 07/23/241716 DD/ 15 TD/TT: 07/23/241715 Boathouse Keeper: [facility] External Provider IMG US PROCEDURES Final Result * SARS-CoV-2 RNA, Influenza A/B, and RSV RNA, Ql NAAT (07/23/2024 12:47 PM EST) Influenza A PCR NEGATIVE Negative [facility] Influenza B PCR NEGATIVE Negative [facility] Resp Syncy Virus RNA Qual PCR NEGATIVE Negative [facility] SARS COV2 PCR NEGATIVE Negative [facility] Comment:All test results mus t [...] use by authorized laboratories.Testing performed on the [employer] GeneXpert utilizingreal-time RT-PCR.All SARS CoV2 and positive influenza A/B results arereported to [facility]. 07/23/2024 12:4 7 PM EST 07/23/2024 12:55 PM EST us Generic External Data Provider LAB MICROBIOLOGY - GENERAL ORDERABLES Final Result [facility] [address] [place], [place] [phone] * (ABNORMAL) CBC auto differential (07/23/2024 12:47 PM EST) White Blood Count 4.9 4.8 - 10.8 X10*3/uL [facility] Red Blood Count 4.20(L) 4.60 - 5.80 X10*6/uL [facility] Hemoglobin 12.5(L) 14.0 - 18.0 g/dl [facility] Hematocrit 37.2(L) 42.0 - 52.0 % [facility] Mean Corpuscular Volume 88.6 80.0 - 98.0 fL [facility] Mean Corpuscular Hemoglobin 29.8 27.0 - 33.0 pg [facility] Mean Corpuscular HGB Conc 33.6 31.0 - 36.0 g/dl [facility] Red Cell Distribution Width 12.4 11.0 - 16.0 % [facility] Platelet Count 178 160 - 400 X10*3/uL [facility] Mean Platelet Volume 9.9 9.4 - 12.4 fL [facility] Neutrophils Percent Auto 65.7 45 - 73 % [facility] Imm Gran Pct Auto 0.4 0.0 - 0.4 % [facility] Lymphocytes Percent Auto 26.1 20 - 40 % [facility] Monocytes Percent Auto 5.8 2 - 11 % [facility] Eosinophils Percent Auto 1.4 0 - 4 % [facility] Basophils Percent Auto 0.6 0 - 2 % [facility] NRBC Pct Auto 0.0 0.0 - 0.2 /100WBC [facility] Neutrophils Absolute Auto 3.2 2.0 - 8.3 x10*3/uL [facility] Imm Gran Abs Auto 0.02 0.00 - 0.03 X10*3/uL [facility] Lymphocytes Absolute Auto 1.3 1.2 - 4.9 X10*3/uL [facility] Monocytes Absolute Auto 0.3 0.1 - 1.2 X10*3/uL [facility] Eosinophils Absolute Auto 0.1 0.0 - 0.4 X10*3/uL [facility] Basophils Absolute Auto 0.0 0.0 - 0.2 X10*3/uL [facility] NRBC Abs Auto 0.000 0.0 - 0.012 X10*3/uL [facility] 07/23/2024 12:4 7 PM EST 07/23/2024 12:55 PM EST Generic External Data Provider LAB BLOOD ORDERAB LES Final Result Performing Organization Address [facility] de Phone Number [facility] [address] [place] [phone] * (ABNORMAL) Prothrombin Time-INR (07/23/2024 12:47 PM EST) Prothrombin Time 13.9(H) 10.9 - 12.4 SEC [facility] INTERNATIONAL NORM RATIO 1.2(H) 0.9 - 1.1 [facility] Comment:INTERNATIONAL NORMAL IZED RATIO (INR) [...] ORDERAB LES Final Result Performing Organization Address [facility] de Phone Number [facility] [address] [place] [phone] * Magnesium (07/23/2024 12:47 PM EST) Pathologist [facility] Magnesium 1.8 1.6 - 2.6 mg/dL [facility] 07/23/2024 12:4 7 PM EST 07/23/2024 12:55 PM EST us Generic External Data Provider LAB BLOOD ORDERAB LES Final Result Performing Organization Address City/[facility]/ZIP Co de Phone Number [facility] [address] [place] [phone] * Lipase (07/23/2024 12:47 PM EST) Pathologist [facility] Lipase 12 8 - 78 U/L [facility] 07/23/2024 12:4 7 PM EST 07/23/2024 12:55 PM EST Generic External Data Provider LAB BLOOD ORDERAB LES Final Result Performing Organization Address City/[facility]/ZIP Co de Phone Number [facility] [address] [place] [phone] * (ABNORMAL) Comprehensive Metabolic Panel (07/23/2024 12:47 PM EST) [facility] Sodium 141 135 - 145 mmol/L [facility] Potassium 3.8 3.3 - 5.1 mmol/L [facility] Chloride 106 96 - 108 mmol/L [facility] Carbon Dioxide 29 22 - 29 mmol/L [facility] Anion Gap 10(L) 12 - 20 [facility] Urea Nitrogen (BUN) 14 9 - 16 mg/dL [facility] Creatinine, Serum 0.83 0.5 - 1.4 mg/dL [facility] Creatinine Clr Calc Pharmacy 102.6 [facility] Comment:eGFR (calculated fro m the MDRD study equation) and eCrCl(calculated from the Cockcroft-Gault equation) are based ondifferent parameters and may not yield comparable results.If eCrCl result is absurd, please check patient'sheight/weight. Estimated Glomerular Filt Rate >60 [facility] Comment:Chronic Kidney Disea se: Estimated GFR < 60 mL/min/1.21e0Agiyxe Kidney Disease: Estimated GFR < 15 mL/min/1.73m2 Glucose 94 60 - 115 mg/dL [facility] Calcium 8.5 8.4 - 10.2 mg/dL [facility] Bilirubin, Total 0.5 0.0 - 1.0 mg/dL [facility] Aspartate Amino Transferase 21 5 - 37 U/L [facility] Alanine Aminotransferase 14 0 - 40 U/L [facility] Total Protein 6.8 6.5 - 8.0 g/dL [facility] Albumin Level 4.2 3.5 - 5.0 g/dL [facility] Alkaline Phosphatase 116 39 - 117 U/L [facility] 07/23/2024 12:4 7 PM EST 07/23/2024 12:55 PM EST us Generic External Data Provider LAB BLOOD ORDERAB LES Final Result [facility] [address] [place] [address] [phone] * HIV-1/2 Antigen and Antibodies, Fourth Generation, with Reflexes (10/24/2023 10:26 AM EDT) HIV AB/AG Nonreactive Nonreactive [facility] Comment:HIV-1 p24 Ag and/or HIV-1/HIV-2 Ab not detected.A test result that is nonreactive does not exclude thepossibility of exposure to or infection with HIV-1 and/orHIV-2. Nonreactive results in this assay for individualswith prior exposure to HIV-1 and/or HIV-2 may be due toantigen and antibody levels that are below the limit ofdetection of this assay.The [employer] HIV Ag/Ab Combo assay result andsupplemental assay results should be interpreted inconjunction with the patient's clinical presentation,history and other laboratory results. If the results areinconsistent with clinical evidence, additional testing issuggested to confirm the result. Blood Venous blood specimen / Unknown 10/24/2023 10:26 AM EDT 10/24/2023 11:09 AM EDT Zahraa Abelino LAB BLOOD ORDERABLES Final R esult Performing Organization Address [facility] Co de Phone Number [facility] [address] [place] [address] [phone] * (ABNORMAL) Lipid Panel, Standard (10/24/2023 10:26 AM EDT) Triglycerides 48 <150 mg/dL [facility] Comment:Desirable Triglyceri de: less than 150 mg/dLBorderline High Triglyceride 150-199 mg/dLHigh Triglyceride: 200-499 mg/dLVery High Triglyceride: greater than or equal to 5OO mg/dL Cholesterol 174 <200 mg/dL [facility] Comment:Desirable Cholestero l: less than 200 mg/dLBorderline High Cholesterol: 200-239 mg/dLHigh Cholesterol: greater than 239 mg/dL LDL Cholesterol Calculated 113(H) <100 mg/dL [facility] Comment:Desirable LDL: less than 100 mg/dLNear Optimal/Above Optimal LDL: 110- 129 mg/dLBorderline High LDL: 130-159 mg/dLHigh LDL: 160-189 mg/dLVery High LDL: greater than or equal to 190 mg/dL HDL Cholesterol 52 >40 mg/dL [facility] Comment:Desirable HDL: great er than 40 mg/dL Note: This HDL assay may give artificially low results in patients with liver disease. Blood Venous blood specimen / Unknown 10/24/2023 10:26 AM EDT 10/24/2023 1:07 PM EDT Zahraa Roca DO LAB BLOOD ORDERABLES Final R esult Performing Organization Address City/[facility]/ZIP Co de Phone Number [facility] [address] [place] [phone] * Hm Colonoscopy (03/16/2023 9:43 AM EDT) Historical Provider HEALTH MAINTENANCE Final Result * Fecal Globin by Immunochemistry (07/13/2022 12:00 AM EST) Fecal Globin By Immunochemistry SEE NOTE [facility] Comment: ??FECAL GLOBIN BY IMMUNOCHEMISTRY ?Micro Number: ?[id number] ??Test Status: ? Final ??Specimen Source: ?? Insure (tm) fobt test card ??Specimen Quality: ??Adequate ??Fecal Globin: ?Not Detected 07/13/2022 07/28/2022 8:2 7 AM EST Zahraa Roca DO LAB BODY FLUIDS AND STOOLS O RDERABLES Final Result [facility] [address] [place] [address] [facility] [place] [employer] [address] [facility], ([address]) [place] [phone] from Last 3 Months or Most Recently Relevant to Health Maintenance Insurance [facility] STANDARD MEDICARE [facility] STAND ADULT Care Teams Fly Frame Tender Relationship Specialty Start Date End Date Zahraa Roca DO [address] [place] [phone] PCP - General Family Medicine 07/25/18 Christian Soria FNP [address] [place] [address] Nurse Practitioner Family Medicine 06/24/23
--- OUTSIDE RECORDS SUMMARY | 2024-10-04 11:08 | XMS_ITS | Encounter Summary ---
Author Organization [employer] Address [address] [place] [address] 7 [place] [address] Care Team Providers Care Pipe Insulator Name Role Phone Zahraa Roca DO Primary Care Provider + [phone] Christian Soria Unavailable Unavailable Reason for Visit * Reason Onset Date Comments Appointment Request 06/19/2024 Encounter Details Date Type Department Care Team ([facility] st Contact Info) Description 06/19/2024 Telephone [facility] [address] [place] [address] Zahraa Roca DO 230 [place], [place] [phone] Appointment Request Social History Tobacco Use Types [...] Description 10/11/2024 10:30 AM EDT Clinical Support [facility] [address] [place] [address] Mere Rios, HENRIK documented as of this encounter Visit Diagnoses Not on filedocumented in this encounter Additional Health Concerns Assessment Noted Time PHQ-9 Depression Total Score: 0 11/28/19 24 11:23 AM EDT documented as of this encounter Care Teams Pipe Insulator Relationship Specialty Start Date End Date Zahraa Roca DO 230 [place] [address] PCP - General Family Medicine 07/25/18 Christian Soria FNP [address] [place] [address] Nurse Practitioner Family Medicine 06/24/23 documented as of this encounter
--- OUTSIDE RECORDS SUMMARY | 2024-10-04 11:08 | XMS_ITS | Encounter Summary ---
Author Organization [employer] Address [address] [facility] 7t [place] [address] Care Team Providers Care Mononitrotoluene Operator Name Role Phone Zahraa Roca DO Primary Care Provider + [phone] Christian Soria Unavailable Unavailable Encounter Details Date Type Department Care Team (Late st Contact Info) Description 04/17/2024 Telephone [facility] 230 [place] [address] Lore Vargas DDS 230 [place] [address] Social History Tobacco Use Types Packs/Day Years [...] Description 10/11/2024 10:30 AM EDT Clinical Support [facility] 230 [place] [address] Mere Rios RN documented as of this encounter Visit Diagnoses Not on filedocumented in this encounter Additional Health Concerns Assessment Noted Time PHQ-9 Depression Total Score: 0 11/28/19 11:23 AM EDT documented as of this encounter Care Teams Mononitrotoluene Operator Relationship Specialty Start Date End Date Zahraa Roca DO 230 [place] [address] PCP - General Family Medicine 07/25/18 Christian Soria FNP 230 [place] [address] Nurse Practitioner Family Medicine 06/24/23 documented as of this encounter
--- OUTSIDE RECORDS SUMMARY | 2024-10-04 11:08 | XMS_ITS | Encounter Summary ---
Author Organization [employer] Address [address] [place] [address] [address], [place] [address] Care Team Providers Care Palletizer Name Role Phone Zahraa Roca DO Primary Care Provider + [phone] Christian Soria Unavailable Unavailable Reason for Visit * Reason Comments Med Refill Encounter Details Date Type Department Care Team (Late st Contact Info) Description 12/31/2022 Refill [facility] 230 [place] [address] Christian Soria FNP Anxiety Social History Tobacco [...] Description 10/11/2024 10:30 AM EDT Clinical Support [facility] [address] [place] [address] Mere Rios RN documented as of this encounter Visit Diagnoses Diagnosis Anxiety Anxiety state, unspecified documented in this encounter Additional Health Concerns Assessment Noted Time PHQ-9 Depression Total Score: 0 08/24/19 23 2:33 PM EST documented as of this encounter Care Teams Palletizer Relationship Specialty Start Date End Date Zahraa Roca DO 230 [place] [address] PCP - General Family Medicine 07/25/18 Christian Soria FNP [address] [place] [address] Nurse Practitioner Family Medicine 06/24/23 documented as of this encounter
--- OUTSIDE RECORDS SUMMARY | 2024-10-04 11:08 | XMS_ITS | Encounter Summary ---
Author Organization [employer] Address [address] [place] [address] [address], [place] [address] Care Team Providers Care Broth Mixer Name Role Phone Abelino Zahraa Primary Care Provider + [phone] Christian Soria Unavailable Unavailable Reason for Visit * Reason Comments Med Refill Encounter Details Date Type Department Care Team (Late st Contact Info) Description 12/19/2022 Refill [facility] 230 [place] [address] Christian Soria FNP Anxiety Social History Tobacco [...] Description 10/11/2024 10:30 AM EDT Clinical Support [facility] [address] [place] [address] Mere Rios RN documented as of this encounter Visit Diagnoses Diagnosis Anxiety Anxiety state, unspecified documented in this encounter Additional Health Concerns Assessment Noted Time PHQ-9 Depression Total Score: 0 08/24/19 23 2:33 PM EST documented as of this encounter Care Teams Broth Mixer Relationship Specialty Start Date End Date Zahraa Roca DO 230 [place] [address] PCP - General Family Medicine 07/25/18 Christian Soria FNP [address] [place] [address] Nurse Practitioner Family Medicine 06/24/23 documented as of this encounter
--- OUTSIDE RECORDS SUMMARY | 2024-10-04 11:08 | XMS_ITS | Encounter Summary ---
Author Organization [employer] Address [address] [place] [address] 7 [place] [address] Care Team Providers Care Investment Accountant Name Role Phone Zahraa Roca DO Primary Care Provider + [phone] Christian Soria Unavailable Unavailable Reason for Visit * Reason Onset Date Comments PT-1 03/15/2024 Encounter Details Date Type Department Care Team (Late st Contact Info) Description 03/15/2024 Telephone [facility] [address] [place] [address] Zahraa Roca DO [address] [place], [place] [phone] PT-1 Social History Tobacco Use Types Packs/Day [...] Y/N: Yes Provider name or facility name: [facility] Facility Address: [address] [place] [address] Escort needed: Y/N: No Do you have a wheelchair: Y/N: No If yes- Manual or electric: no Visits: 3 documented in this encounter Plan of Treatment Upcoming Encounters Date Type Department Care Team (Late st Contact Info) Description 10/11/2024 10:30 AM EDT Clinical Support [facility] [address] [place] [address] Mere Rios RN documented as of this encounter Visit Diagnoses Not on filedocumented in this encounter Additional Health Concerns Assessment Noted Time PHQ-9 Depression Total Score: 0 11/28/19 24 11:23 AM EDT documented as of this encounter Care Teams Investment Accountant Relationship Specialty Start Date End Date Zahraa Roca DO [address] [place] [address] PCP - General Family Medicine 1/1/19 Christian Soria FNP [address] [place] [address] Nurse Practitioner Family Medicine 06/24/23 documented as of this encounter
--- OUTSIDE RECORDS SUMMARY | 2024-10-04 11:08 | XMS_ITS | Encounter Summary ---
Author Organization [employer] Address [address] [place] [address] 7 [place] [address] Care Team Providers Care Flame Planer Name Role Phone Zahraa Roca DO Primary Care Provider + [phone] Christian Soria Unavailable Unavailable Reason for Visit * Reason Onset Date Comments Appointment Request 08/03/2024 Encounter Details Date Type Department Care Team ([facility] st Contact Info) Description 08/03/2024 Telephone [facility] 230 [place] [address] Zahraa Roca DO 230 [place], [place] [phone] Appointment Request Social History Tobacco Use Types [...] missed appointment with dermatology. Contact pt at [phone] documented in this encounter Plan of Treatment Upcoming Encounters Date Type Department Care Team (Late st Contact Info) Description 10/11/2024 10:30 AM EDT Clinical Support [facility] [address] [place] [address] Mere Rios, HENRIK documented as of this encounter Visit Diagnoses Not on filedocumented in this encounter Additional Health Concerns Assessment Noted Time PHQ-9 Depression Total Score: 0 11/28/19 24 11:23 AM EDT documented as of this encounter Care Teams Flame Planer Relationship Specialty Start Date End Date Zahraa Roca DO [address] [place] [address] PCP - General Family Medicine 07/25/18 Christian Soria FNP [address] [place] [address] Nurse Practitioner Family Medicine 06/24/23 documented as of this encounter
--- OUTSIDE RECORDS SUMMARY | 2024-10-04 11:08 | XMS_ITS | Encounter Summary ---
Author Organization [employer] Address [address] [place] [address] 7 [place] [address] Care Team Providers Care Auto Painter Helper Name Role Phone Zahraa Roca DO Primary Care Provider + [phone] Christian Soria Unavailable Unavailable Reason for Visit * Reason Comments RUSTIC TERRAZZO SETTER Initial RUSTIC TERRAZZO SETTER Initial Encounter Details Date Type Department Care Team (Latest Contact Info) Description 09/12/2024 9:30 AM EST Clinical Support [facility] [address] [place] [address] Mere Rios RN Anxiety (Primary Dx); Opioid [...] AM EST S: Pt here for initial RUSTIC TERRAZZO SETTER Visit. Prescribed Clonazepam 1mg QD. States he [...] is apart of a methadone clinic in [place]. O: RUSTIC TERRAZZO SETTER Tier 1. Pt currently prescribed Clonazepam 1m QD. SPRAY OPERATOR verified today. Rx last filled on 08/20/24. [...] count. Last PCP visit was 06/06/24. A: RUSTIC TERRAZZO SETTER Contract Initiation Visit, Chronic BZO use r/t anxiety. P: RUSTIC TERRAZZO SETTER contract reviewed and signed, pt provided copy. Pt to continue taking medication only as prescribed; Next RUSTIC TERRAZZO SETTER RV appointment scheduled for 10/10/24 @ 9am, F/U sooner PRN. Appointment reminder given. Pt verbalized understanding and agreed to plan. documented in this encounter Plan of Treatment Upcoming Encounters Date Type Department Care Team (Late st Contact Info) Description 10/11/2024 10:30 AM EDT Clinical Support [address] [phone] Mere Rios, RN documented as of this encounter Procedures Procedure Name Priority Date/Time Associated Diagnosis Comments POCT MARIO-14 URINE DRUG SCREEN Routine 09/12/2024 9:54 AM EST Opioid dependence on agonist therapy ([facility]) DRUG MONITORING, BENZODIAZEPINES, QUANTITATIVE, URINE Routine 09/12/2024 9:30 AM EST Anxiety documented in this encounter Results * (ABNORMAL) POCT MARIO-14 Urine Drug Screen (09/12/2024 9:54 AM EST) THC Positive Benzodiazepines Screen, Urine Negative Methadone Screen, Urine Positive Urine Urine specimen obtained by clean catch procedure / Unknown 09/12/2024 9:54 AM EST Narrative Mere Rios RN - 09/12/2024 9:54 AM EST UTOX cup Lot#[id number] Exp. 03/13/26 Internal Pass Control us Zahraa Roca DO POINT OF CARE TEST ENTER/JOANNA T ORDERABLES Final Result * Drug Monitoring, Benzodiazepines, Quantitative, Urine (09/12/2024 9:30 AM EST) Nordiazepam, GCMS Urine NEGATIVE [facility] Oxazepam, GCMS Urine NEGATIVE [facility] Lorazepam GCMS Urine NEGATIVE [facility] Alprazolam, GCMS Urine NEGATIVE [facility] Alphahydroxytriazolam, GCMS Ur NEGATIVE [facility] Temazepam, GCMS Urine NEGATIVE [facility] Alphahydroxymidazolam,GC MS Ur NEGATIVE [facility] Aminoclonazepam, GCMS Urine NEGATIVE [facility] Flurazepam Metabolite,GCMS Ur NEGATIVE [facility] Benzodiazepines Comments SEE NOTE [facility] Comment:This drug testing is for medical treatment only. Analysiswas performed as non-forensic testing and these resultsshould be used only by healthcare providers to renderdiagnosis or treatment, or to monitor progress of medicalconditions.LDT Notes:Confirmation tests were developed and their analyticalperformance characteristics have been determined by [employer]. It has not been cleared or approved by the FDA.This assay has been validated pursuant to the CLIAregulations and is used for clinical purposes.Healthcare Providers needing Interpretation assistance,please contact us at [phone] ( ) M-F,8am to 10pm ESTTHIS TEST PERFORMED AT:[facility] [address] [phone] DIRECTOR: SOCRATES MATHIAS MD Urine (Urine, Random) 09/12/2024 9:30 AM EST 09/12/2024 4:41 PM EST us Zahraa Roca DO LAB URINE ORDERABLES Final R esult [facility] [address] [place] [address] [phone] documented in this encounter Visit Diagnoses Diagnosis Anxiety- Primary Anxiety state, unspecified Opioid dependence on agonist therapy (CMS/HCC) documented in this encounter Additional Health Concerns Assessment Noted Time PHQ-9 Depression Total Score: 0 11/28/19 24 11:23 AM EDT documented as of this encounter Care Teams Auto Painter Helper Relationship Specialty Start Date End Date Zahraa Roca DO [address] [place] [address] PCP - General Family Medicine 07/25/18 Christian Soria FNP [address] [place] [address] Nurse Practitioner Family Medicine 06/24/23 documented as of this encounter
--- OUTSIDE RECORDS SUMMARY | 2024-10-04 11:08 | XMS_ITS | Encounter Summary ---
Author Organization [employer] Address [address] [place] [address] 7 [place] [address] Care Team Providers Care Cork Insulator Name Role Phone Zahraa Roca DO Primary Care Provider + [phone] Christian Soria Unavailable Unavailable Reason for Visit * Reason Onset Date Comments Appt question 08/09/2024 Encounter Details Date Type Department Care Team (Late st Contact Info) Description 08/09/2024 Telephone [facility] [address] [place] [address] Zahraa Roca DO [address] [place], [place] [phone] Appt question Social History Tobacco Use Types [...] aug appt its for that. Any questions [phone] documented in this encounter Plan of Treatment Upcoming Encounters Date Type Department Care Team (Late st Contact Info) Description 10/11/2024 10:30 AM EDT Clinical Support [facility] [address] [place] [address] Mere Rios RN documented as of this encounter Visit Diagnoses Not on filedocumented in this encounter Additional Health Concerns Assessment Noted Time PHQ-9 Depression Total Score: 0 11/28/19 24 11:23 AM EDT documented as of this encounter Care Teams Cork Insulator Relationship Specialty Start Date End Date Zahraa Roca DO [address] [place] [address] PCP - General Family Medicine 07/25/18 Christian Soria FNP [address] [place] [address] Nurse Practitioner Family Medicine 06/24/23 documented as of this encounter
--- OUTSIDE RECORDS SUMMARY | 2024-10-04 11:08 | XMS_ITS | Encounter Summary ---
Author Organization [employer] Address [address] [place] [address] 7 [place] [address] Care Team Providers Care Transcription Manager Name Role Phone Zahraa Roca DO Primary Care Provider + [phone] Christian Soria Unavailable Unavailable Reason for Visit * Reason Onset Date Comments PT1 01/03/2024 Encounter Details Date Type Department Care Team (Late st Contact Info) Description 01/03/2024 Telephone [facility] 230 [place] [address] Zahraa Roca DO 230 [place], [place] [phone] PT1 Social History Tobacco Use Types Packs/Day [...] or facility name: methadone clinic Facility Address: [address] [place] [address] Escort needed: Y/N: No Do you have a wheelchair: Y/N: No If yes- Manual or electric: none Visits: 7 days a week documented in this encounter Plan of Treatment Upcoming Encounters Date Type Department Care Team (Late st Contact Info) Description 10/11/2024 10:30 AM EDT Clinical Support [facility] [address] [place] [address] Mere Rios, HENRIK documented as of this encounter Visit Diagnoses Not on filedocumented in this encounter Additional Health Concerns Assessment Noted Time PHQ-9 Depression Total Score: 0 11/28/19 11:23 AM EDT documented as of this encounter Care Teams Transcription Manager Relationship Specialty Start Date End Date Zahraa Roca DO [address] [place] [address] PCP - General Family Medicine 07/25/18 Christian Soria FNP [address] [place] [address] Nurse Practitioner Family Medicine 06/24/23 documented as of this encounter
--- OUTSIDE RECORDS SUMMARY | 2024-10-04 11:09 | XMS_ITS | Encounter Summary ---
Author Organization [employer] Address [address] [place] [address] 7 [place] [address] Care Team Providers Care Coach Cleaner Name Role Phone Zahraa Roca DO Primary Care Provider +[phone] Christian Soria Unavailable Unavailable Reason for Visit * Reason Onset Date Comments Recall Letter 09/21/2024 Recall Letter se nt 09/21/24. Encounter Details Date Type Department Care Team ([facility] st Contact Info) Description 09/21/2024 Telephone [facility] 230 [place], [place] [phone] Zahraa Roca DO 230 [place], [place] [phone] Recall Letter (Recall Letter sent 09/21/24.) Social History Tobacco Use Types Packs/Day Years [...] the past 12 months, has t he [employer], gas, oil or water [employer] threatened to shut off services in your [...] encounter Miscellaneous Notes * Telephone Encounter - Zulma Minor [place] - 09/21/2024 2:36 PM EST .Telephone call to patient to schedule a recall 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 No answer, unable to leave voicemail (mailbox full).. Recall letter sent. Visit type: Office visit Appointment notes: due: August With: Mc Please schedule appointment above if patient returns call documented in this encounter Plan of Treatment Upcoming Encounters Date Type Department Care Team (Late st Contact Info) Description 10/11/2024 10:30 AM EDT Clinical Support [facility] [address] [place] [address] Mere Rios, RN documented as of this encounter Visit Diagnoses Not on filedocumented in this encounter Additional Health Concerns Assessment Noted Time PHQ-9 Depression Total Score: 0 11/28/19 24 11:23 AM EDT documented as of this encounter Care Teams Coach Cleaner Relationship Specialty Start Date End Date Zahraa Roca DO [address] [place] [address] PCP - General Family Medicine 07/25/18 Christian Soria FNP [address] [place] [address] Nurse Practitioner Family Medicine 06/24/23 documented as of this encounter
--- OUTSIDE RECORDS SUMMARY | 2024-10-04 11:09 | XMS_ITS | Encounter Summary ---
Author Organization [employer] Address [address] [place] [address] 7 [place] [address] Care Team Providers Care Slasher Runner Name Role Phone Zahraa Roca DO Primary Care Provider + [phone] Christian Soria Unavailable Unavailable Reason for Visit * Reason Comments Transition Of Care (Tcm) Encounter Details Date Type Department Care Team ([facility] st Contact Info) Description 09/17/2024 Patient Outreach [facility] [address] [place] [address] Zahraa Roca DO [address] [place], [place] [phone] Transition Of Care (Tcm) Social History Tobacco [...] AM EST Hospital Discharges and Admission for [facility] Type of Visit: Emergency Department Date of Admission/Visit: 09/15/24 Date of Discharge: 09/15/24 Facility: [facility] Diagnosis: Viral upper respiratory infection, Costochondritis Disposition: Discharged Home Follow-Up Actions Follow-Up Needed: None/self-monitoring Follow-Up Outcome: Left Voicemail (VM full) Initial Contact Date: 09/17/24 Patient Contacted: Unable to leave message, full Patient Status: unknown, RN was unable to speak to patient The full discharge summary is Is available under media scanned document Review Flowsheet [facility] Transition of Care Documentation Type of Visit Date of Admission/Visit Date of Discharge Facility Diagnosis Disposition 07/29/2023 9:58 AM Hospital Admission 07/26/2023 07/28/2023 [facility] S/P total left hip arthroplastyDischarged Home 07/24/2024 12:50 PM Emergency Department 07/23/2024 07/23/2024 [facility] R foot pain Discharged Home 07/26/2024 9:00 AM Emergency Department 07/23/2024 07/23/2024 [facility] Peripheral Vascular Disease and Venous insufficiency Discharged Home 09/17/2024 10:17 AM Emergency Department 09/15/2024 09/15/2024 [facility] Viral upper respiratory infection, Costochondritis Discharged Home Recent Visits Date Type Provider Dept 06/06/24 Office Visit Zahraa Roca, [facility] Medicine 03/12/24 Office Visit Zahraa Roca, [facility] Medicine 10/19/23 Office Visit Zahraa Roca, [facility] Medicine Showing recent visits within past [...] Clinical Support [facility] [address] [place] [address] Mere Rios, HENRIK documented as of this encounter Visit Diagnoses Not on filedocumented in this encounter Additional Health Concerns Assessment Noted Time PHQ-9 Depression Total Score: 0 11/28/19 24 11:23 AM EDT documented as of this encounter Care Teams Slasher Runner Relationship Specialty Start Date End Date Zahraa Roca DO [address] [place] [address] PCP - General Family Medicine 07/25/18 Christian Soria FNP [address] [place] [address] Nurse Practitioner Family Medicine 06/24/23 documented as of this encounter
--- OUTSIDE RECORDS SUMMARY | 2024-10-04 11:09 | XMS_ITS | Encounter Summary ---
Author Organization [employer] Address [address] [facility] 7 [place] [address] Care Team Providers Care Professor Of Journalism Name Role Phone Zahraa Roca DO Primary Care Provider + [phone] Christian Soria Unavailable Unavailable Reason for Visit * Reason Comments Care Coordination CHW outreach for SDO H PT-1 - LVM Encounter Details Date Type Department Care Team (Latest Contact Info) Description 10/02/2024 Patient Outreach [facility] [address] [place] [address] Zahraa Roca DO 230 [place], [place] [phone] Care Coordination (CHW outreach for SDOH PT-1 [...] the past 12 months, has t he [employer], gas, oil or water company threatened to [...] encounter Progress Notes * Ayan Caro - 10/02/2024 10:12 AM EDT CHW Ayan Caro, placed outbound call to patient for assistance with SDOH as a referral was placed by the provider. Patient had screened positive for the following SDOH insecurities; ----. No answer at this time. Patient's name and were not confirmed. CHW left detailed message and provided contact information requesting return call for assistance. Patient educated on extended clinic hourson Mondays through Wednesdays, and Walk-In Urgent Care Located in [facility]. Patient provided with after-hours line for [facility], , which offer night time triage service and option to transfer to occupational health nursing director provider if needed. documented in this encounter Plan of Treatment Upcoming Encounters Date Type Department Care Team ([facility] st Contact Info) Description 10/11/2024 10:30 AM EDT Clinical Support [facility] [address] [place] [address] Mere Rios, RN documented as of this encounter Visit Diagnoses Not on filedocumented in this encounter Additional Health Concerns Assessment Noted Time PHQ-9 Depression Total Score: 0 11/28/19 24 11:23 AM EDT documented as of this encounter Care Teams Professor Of Journalism Relationship Specialty Start Date End Date Zahraa Roca DO 230 [place] [address] PCP - General Family Medicine 07/25/18 Christian Soria FNP [address] [place] [address] Nurse Practitioner Family Medicine 06/24/23 documented as of this encounter
--- OUTSIDE RECORDS SUMMARY | 2024-10-04 11:09 | XMS_ITS | Encounter Summary ---
Author Organization [employer] Address [address] [place] [address] 7 [place] [address] Care Team Providers Care Veterans Services Specialist Name Role Phone Zahraa Roca DO Primary Care Provider + [phone] Christian Soria Unavailable Unavailable Reason for Visit * Reason Onset Date Comments PT-1 10/02/2024 Encounter Details Date Type Department Care Team (Late st Contact Info) Description 10/02/2024 Telephone [facility] MEDICINE [address] [place] [address] Zahraa Roca DO [address] [place], [place] [phone] PT-1 Social History Tobacco Use Types Packs/Day [...] * Telephone Encounter - Go Vasquez - 10/02/2024 9:06 AM EDT Patient calling requesting PT1 Home Address verified: Y/N: Yes Provider name or facility name: [address] [address] Escort needed: Y/N: No Do you have a wheelchair: Y/N: No If yes- Manual or electric: Visits: (7 Days x Weekly) documented in this encounter Plan of Treatment Upcoming Encounters Date Type Department Care Team ([facility] Contact Info) Description 10/11/2024 10:30 AM EDT Clinical Support [facility] MEDICINE [address] [place] [address] [phone] Mere Rios RN documented as of this encounter Visit Diagnoses Not on filedocumented in this encounter Additional Health Concerns Assessment Noted Time PHQ-9 Depression Total Score: 0 11/28/19 11:23 AM EDT documented as of this encounter Care Teams Veterans Services Specialist Relationship Specialty Start Date End Date Zahraa Roca DO 230 [place] [address] PCP - General Family Medicine 07/25/18 Christian Soria FNP [address] [place] [address] Nurse Practitioner Family Medicine 06/24/23 documented as of this encounter
--- OUTSIDE RECORDS SUMMARY | 2024-10-04 11:09 | XMS_ITS | Encounter Summary ---
Author Organization [employer] Address [address] [place] [address] 7 [place] [address] Care Team Providers Care Pilot Submersible Name Role Phone Zahraa Roca DO Primary Care Provider + [phone] Christian Soria Unavailable Unavailable Reason for Visit * Reason Onset Date Comments Patient message 09/12/2024 Encounter Details Date Type Department Care Team ([facility] st Contact Info) Description 09/12/2024 Telephone [facility] MEDICINE [address] [place] [address] Zahraa Roca DO 230 [place], [place] [phone] Patient message Social History Tobacco Use Types [...] 1:08 PM EST TC placed to patient [phone] in regards to below message. Patient reports he is seeing his vascular doctor tomorrow at [facility] and he will discuss the spot on the R thigh with the vascular provider.Patient reports he has applied ice to the lump on his back and it has decreased. Patient informed if the lump does not completely resolve or increases in size again, he should come to the [facility] to be evaluated. Patient verbalized understanding. [...] on my spine, I will go to [facility] for that documented in this encounter Plan of Treatment Upcoming Encounters Date Type Department Care Team (Late st Contact Info) Description 10/11/2024 10:30 AM EDT Clinical Support [facility] MEDICINE [address] [place] [address] Mere Rios, RN documented as of this encounter Visit Diagnoses Not on filedocumented in this encounter Additional Health Concerns Assessment Noted Time PHQ-9 Depression Total Score: 0 11/28/19 24 11:23 AM EDT documented as of this encounter Care Teams Pilot Submersible Relationship Specialty Start Date End Date Zahraa Roca DO [address] [place] [address] PCP - General Family Medicine 07/25/18 Christian Soria FNP [address] [place] [address] Nurse Practitioner Family Medicine 06/24/23 documented as of this encounter
--- OUTSIDE RECORDS SUMMARY | 2024-10-04 11:09 | XMS_ITS | Encounter Summary ---
Author Organization [employer] Address [address] [facility] 7t [place] [address] Care Team Providers Care Layup Worker Name Role Phone Zahraa Roca DO Primary Care Provider + [phone] Christian Soria Unavailable Unavailable Encounter Details Date Type Department Care Team (Late st Contact Info) Description 11/03/2023 Orders Only [facility] MEDICINE [address] [place] [address] ProviderHiral MD Social History Tobacco Use Types Packs/Day Years [...] Description 10/11/2024 10:30 AM EDT Clinical Support [facility] MED[facility]INE [address] [place] [address] Mere Rios RN documented as of this [...] documented as of this encounter Care Teams Layup Worker Relationship Specialty Start Date End Date Zahraa Roca DO [address] [place] [address] PCP - General Family Medicine 07/25/18 Christian Soria FNP [address] [place] [address] Nurse Practitioner Family Medicine 06/24/23 documented as of this encounter
--- OUTSIDE RECORDS SUMMARY | 2024-10-04 11:09 | XMS_ITS | Encounter Summary ---
Author Organization [employer] Address [address] [place] [address] [address] [place] [address] Care Team Providers Care Operational Intelligence Officer Name Role Phone Zahraa Roca DO Primary Care Provider +[phone] Christian Soria Unavailable Unavailable Encounter Details Date Type Department Care Team (Late st Contact Info) Description 08/31/2022 Abstract [facility] MEDICINE [address] [place] [id number] Zahraa Roca DO [address] [place] [address] Social History Tobacco Use Types Packs/Day Years [...] Description 10/11/2024 10:30 AM EDT Clinical Support [address] [phone] Mere Rios RN documented as of this encounter Visit Diagnoses Not on filedocumented in this encounter Additional Health Concerns Assessment Noted Time PHQ-9 Depression Total Score: 0 08/24/19 23 2:33 PM EST documented as of this encounter Care Teams Operational Intelligence Officer Relationship Specialty Start Date End Date Zahraa Roca DO 230 [place] [address] PCP - General Family Medicine 07/25/18 Christian Soria FNP 230 [place] [address] Nurse Practitioner Family Medicine 06/24/23 documented as of this encounter
--- OUTSIDE RECORDS SUMMARY | 2024-10-04 11:09 | XMS_ITS | Encounter Summary ---
Author Organization [employer] Address [address] [facility] 7 [place] [address] Care Team Providers Care Book Binder Name Role Phone Zahraa Roca DO Primary Care Provider + [phone] Christian Soria Unavailable Unavailable Reason for Visit * Reason Onset Date Comments Med Refill 09/12/2024 Encounter Details Date Type Department Care Team (Late st Contact Info) Description 09/12/2024 Refill [facility] MEDICINE [address] [place] [address] Mere Rios, RN Anxiety Social History Tobacco Use Types [...] - 09/12/2024 10:03 AM EST Pt had GROUP TESTER Initial appt today, Tier 1 UTOX Neg BZO, sent out for confirmation Pt had 2 Clonazepam remaining, anticipated 4. States he thinks 2 are under his dresser still. He attends methadone clinic in [place]. documented in this encounter Plan of Treatment Upcoming Encounters Date Type Department Care Team (Late st Contact Info) Description 10/11/2024 10:30 AM EDT Clinical Support [facility] MEDICINE [address] [place] [address] Mere Rios, RN documented as of this encounter Visit Diagnoses Diagnosis Anxiety Anxiety state, unspecified documented in this encounter Additional Health Concerns Assessment Noted Time PHQ-9 Depression Total Score: 0 11/28/19 24 11:23 AM EDT documented as of this encounter Care Teams Book Binder Relationship Specialty Start Date End Date Zahraa Roca DO 230 [place] [address] PCP - General Family Medicine 07/25/18 Christian Soria FNP [address] [place] [address] Nurse Practitioner Family Medicine 06/24/23 documented as of this encounter
--- OUTSIDE RECORDS SUMMARY | 2024-10-04 11:09 | XMS_ITS | Encounter Summary ---
Author Organization [email or web address] Address [address] [place] [address] 7 [place] [address] Care Team Providers Care Pencils Washer Name Role Phone Zahraa Roca DO Primary Care Provider + [phone] Christian Soria Unavailable Unavailable Encounter Details Date Type Department Care Team (Late st Contact Info) Description 10/21/2022 Orders Only [facility]S [address] [place] [address] Zahraa Andino LPN Social History Tobacco Use [...] Clinical Support [facility] MEDICINE [address] [place] [address] Mere Rios RN documented as of this encounter Visit Diagnoses Not on filedocumented in this encounter Additional Health Concerns Assessment Noted Time PHQ-9 Depression Total Score: 0 08/24/19 23 2:33 PM EST documented as of this encounter Care Teams Pencils Washer Relationship Specialty Start Date End Date Zahraa Roca DO 230 [place] [address] PCP - General Family Medicine 07/25/18 Christian Soria FNP [address] [place] [address] Nurse Practitioner Family Medicine 06/24/23 documented as of this encounter
--- OUTSIDE RECORDS SUMMARY | 2024-10-04 11:09 | XMS_ITS | Encounter Summary ---
Author Organization [employer] Address [address] [place] [address] 7 [place] [address] Care Team Providers Care Operational Intelligence Analyst Name Role Phone Zahraa Roca DO Primary Care Provider + [phone] Christian Soria Unavailable Unavailable Encounter Details Date Type Department Care Team (Late st Contact Info) Description 09/20/2022 Orders Only [facility]S [address] [place] [address] Zahraa Andino LPN Social History Tobacco Use [...] Description 10/11/2024 10:30 AM EDT Clinical Support [facility] MEDICINE [address] [place] [address] Mere Rios RN documented as of this encounter Visit Diagnoses Not on filedocumented in this encounter Additional Health Concerns Assessment Noted Time PHQ-9 Depression Total Score: 0 08/24/19 23 2:33 PM EST documented as of this encounter Care Teams Operational Intelligence Analyst Relationship Specialty Start Date End Date Zahraa Roca DO 230 [place] [address] PCP - General Family Medicine 07/25/18 Christian Soria FNP [address] [place] [address] Nurse Practitioner Family Medicine 06/24/23 documented as of this encounter
--- OUTSIDE RECORDS SUMMARY | 2024-10-04 11:09 | XMS_ITS | Encounter Summary ---
Author Organization [employer] Address [address] [place] [address] 7 [place] [address] Care Team Providers Care Test Car Driver Name Role Phone Zahraa Roca DO Primary Care Provider + [phone] Christian Soria Unavailable Unavailable Reason for Visit * Reason Onset Date Comments BULB WEEDER Initial completed today 09/12/2024 UTOX Neg BZO. sent out 09/12/2024 Encounter Details Date Type Department Care Team ([facility] st Contact Info) Description 09/12/2024 Telephone [facility] MEDICINE [address] [place] [address] Mere Rios RN BULB WEEDER Initial completed today; UTOX Neg BZO. sent [...] - 09/12/2024 10:05 AM EST Pt had BULB WEEDER Initial appt today UTOX Neg BZO, sent out for confirmation Pt had 2 Clonazepam remaining, anticipated 4. States he thinks 2 are under his dresser still. documented in this encounter Plan of Treatment Upcoming Encounters Date Type Department Care Team (Late st Contact Info) Description 10/11/2024 10:30 AM EDT Clinical Support [facility] MEDICINE [address] [place] [address] Mere Rios, RN documented as of this encounter Visit Diagnoses Not on filedocumented in this encounter Additional Health Concerns Assessment Noted Time PHQ-9 Depression Total Score: 0 11/28/19 24 11:23 AM EDT documented as of this encounter Care Teams Test Car Driver Relationship Specialty Start Date End Date Zahraa Roca DO 230 [place] [address] PCP - General Family Medicine 07/25/18 Crhistian Soria FNP [address] [place] [address] Nurse Practitioner Family Medicine 06/24/23 documented as of this encounter
--- OUTSIDE RECORDS SUMMARY | 2024-10-04 11:09 | XMS_ITS | Encounter Summary ---
Author Organization [employer] Address [address] [place] [address] 7 [place] [address] Care Team Providers Care Urologic Surgeon Name Role Phone Zahraa Roca DO Primary Care Provider + [phone] Christian Soria Unavailable Unavailable Reason for Visit * Reason Onset Date Comments Appointment Request 10/03/2024 Encounter Details Date Type Department Care Team ([facility] st Contact Info) Description 10/03/2024 Telephone [facility] MEDICINE [address] [place] [address] Zahraa Roca DO [address] [place], [place] [phone] Appointment Request Social History Tobacco Use Types [...] Telephone Encounter - Mere Rios RN - 10/03/2024 10:35 AM EDT Return TC to patient, pt stated he moved and he has to wait for his PT1 to clear him for his new address. SENIOR LEAD SOFTWARE ENGINEER RV rescheduled for 10/11/24 @ 10:30am * Telephone Encounter - Gabbi Arreola - 10/03/2024 9:19 AM EDT Tc from pt requesting a call back to r/s appt. Pt canc. 10/10 appt because has no ride. documented in this encounter Plan of Treatment Upcoming Encounters Date Type Department Care Team (Late st Contact Info) Description 10/11/2024 10:30 AM EDT Clinical Support [address] [address] Mere Rios, RN documented as of this encounter Visit Diagnoses Not on filedocumented in this encounter Additional Health Concerns Assessment Noted Time PHQ-9 Depression Total Score: 0 11/28/19 24 11:23 AM EDT documented as of this encounter Care Teams Urologic Surgeon Relationship Specialty Start Date End Date Zahraa Roca DO 230 [place] [address] PCP - General Family Medicine 07/25/18 Christian Soria FNP 230 [place] [address] Nurse Practitioner Family Medicine 06/24/23 documented as of this encounter
--- OUTSIDE RECORDS SUMMARY | 2024-10-04 11:09 | XMS_ITS | Encounter Summary ---
Author Organization [employer] Address [address] [facility] 7 [place] [address] Care Team Providers Care Executive Sales Manager Name Role Phone Zahraa Roca DO Primary Care Provider + [phone] Christian Soria Unavailable Unavailable Reason for Visit * Reason Comments Care Coordination CHW outreach for SDO H PT-1 and food needs-referral completed Encounter Details Date Type Department Care Team (Latest Contact Info) Description 10/01/2024 Patient Outreach [facility] MEDICINE [address] [place] [address] Zahraa Roca DO 230 [place], [place] [phone] Care Coordination (CHW outreach for SDOH PT-1 and food needs-referral completed /) Social History Tobacco Use Types Packs/Day Years [...] encounter Progress Notes * Ayan Caro - 10/01/2024 1:17 PM EDT CHW Ayan Caro, placed outbound call to patient for assistance with SDOH as a referral was received by the provider. Patient's name and were confirmed. Patient screened positive for the following SDOH food insecurities. CHW referral patient to the local list of pantries in the area for help. PT-1 requested was send out in behalf of patient for futures appt. Patient verbalizes understandin g, and able to agree with plan to follow up. Patient educated on extended clinic hours on Mondays through Wednesdays, and Walk-In Urgent Care Located in [facility]. Patient provided with after-hours line for [facility], , which offer night time triage service and option to transfer to harpooner provider if needed. documented in this encounter Plan of Treatment Upcoming Encounters Date Type Department Care Team (Late st Contact Info) Description 10/11/2024 10:30 AM EDT Clinical Support [facility] MEDICINE [address] [place] [address] Mere Rios, HENRIK documented as of this encounter Visit Diagnoses Not on filedocumented in this encounter Additional Health Concerns Assessment Noted Time PHQ-9 Depression Total Score: 0 11/28/19 24 11:23 AM EDT documented as of this encounter Care Teams Executive Sales Manager Relationship Specialty Start Date End Date Zahraa Roca DO [address] [place] [address] PCP - General Family Medicine 07/25/18 Christian Soria FNP [address] [place] [address] Nurse Practitioner Family Medicine 06/24/23 documented as of this encounter
--- OUTSIDE RECORDS SUMMARY | 2024-10-04 11:09 | XMS_ITS | Encounter Summary ---
Author Organization [employer] Address [address] [place] [address] 7 [place] [address] Care Team Providers Care Manipulator Operator Name Role Phone Zahraa Roca DO Primary Care Provider + [phone] Christian Soria Unavailable Unavailable Reason for Visit * Reason Onset Date Comments PT-1 10/01/2024 Encounter Details Date Type Department Care Team (Late st Contact Info) Description 10/01/2024 Telephone [facility] MEDICINE [address] [place] [address] Zahraa Roca DO 230 [place], [place] [phone] PT-1 (/) Social History Tobacco Use Types Packs/Day Years [...] * Telephone Encounter - Go Vasquez - 10/01/2024 12:24 PM EDT Tc from pt requesting for the Occupational Therapy Asst locations for all his Pt 1 to be changed to [address] [place] [address]. If any questions contact pt at [phone] documented in this encounter Plan of Treatment Upcoming Encounters Date Type Department Care Team (Late st Contact Info) Description 10/11/2024 10:30 AM EDT Clinical Support [facility] MEDICINE [address] [place] [address] Mere Rios, HENRIK documented as of this encounter Visit Diagnoses Not on filedocumented in this encounter Additional Health Concerns Assessment Noted Time PHQ-9 Depression Total Score: 0 11/28/19 24 11:23 AM EDT documented as of this encounter Care Teams Manipulator Operator Relationship Specialty Start Date End Date Zahraa Roca DO 230 [place] [address] PCP - General Family Medicine 07/25/18 Christian Soria FNP [address] [place] [address] Nurse Practitioner Family Medicine 06/24/23 documented as of this encounter
--- OUTSIDE RECORDS SUMMARY | 2024-10-04 11:09 | XMS_ITS | Encounter Summary ---
Author Organization [employer] Address [address] [facility] 7t [place] [address] Care Team Providers Care Lead Burner Apprentice Name Role Phone Abelino Zahraa CANTOR Primary Care Provider + [phone] Christian Soria Unavailable Unavailable Encounter Details Date [...] Description 10/11/2024 10:30 AM EDT Clinical Support [facility] MEDICINE 230 [place] [address] Mere Rios RN documented as of this encounter Visit Diagnoses Not on filedocumented in this encounter Additional Health Concerns Assessment Noted Time PHQ-9 Depression Total Score: 0 11/28/19 11:23 AM EDT documented as of this encounter Care Teams Lead Burner Apprentice Relationship Specialty Start Date End Date Zahraa Roca DO [address] [place] [address] PCP - General Family Medicine 07/25/18 Christian Soria FNP [address] [place] [address] Nurse Practitioner Family Medicine 06/24/23 documented as of this encounter
--- OUTSIDE RECORDS SUMMARY | 2024-10-04 11:09 | XMS_ITS | Encounter Summary ---
Author Organization [employer] Address [address] [facility] 7t [place] [address] Care Team Providers Care Geographic Information System Analyst Name Role Phone Abelino Zahraa CANTOR Primary Care Provider + [phone] Christian Soria Unavailable Unavailable Encounter Details Date Type Department Care Team (Late st Contact Info) Description 09/19/2024 Orders Only GENERIC EXTERNAL DATA DEPARTMENT [...] Description 10/11/2024 10:30 AM EDT Clinical Support [address] [address] Mere Rios RN documented as of this encounter Procedures Procedure Name Priority Date/Time Associated Diagnosis Comments GROSS AND MICROSCOPIC LEVEL 3 Routine 09/19/2024 9:00 AM EST documented in this encounter Results * Gross and Microscopic Level 3 (09/19/2024 9:00 AM EST) 09/19/2024 9:00 AM EST 09/19/2024 12:05 PM EST [facility] LABS - 09/20/2024 3:24 PM EST ----- ------- Name: Cristobal Enriquez ? Age/Sex: 54/M ? : 1970 Unit#: [id number] ?? Attend Dr: Sergei Christine MD ?Re09/19/24 ?Status: DEP REF ? Location: HO.LNP ?Disch: ? ----- ------- SPEC : [id number] ? RECD: 09/19/24-1204 ? STATUS: ??SOUT ? REQ NUM: [id number] ? NGA: 09/19/24 ? SUBM DR: Sergei [...] CONTINUED ON NEXT PAGE ----- ------- Name: Cristobal Enriquez ? Age/Sex: 54/M ? : 1970 Unit#: [id number] ?? Attend Dr: Sergei Christine MD ?Re09/19/24 ?Status: DEP REF ? Location: HO.LNP ?Disch: ? ----- ------- SPEC : [id number] ? RECD: 09/19/24-1204 ? STATUS: ??SOUT ? REQ NUM: [id number] ? NGA: 09/19/24-899 ? SUBM DR: Sergei Christine MD ? ENTERED: ??09/19/24-1208 ?SP TYPE: Surgical ? OTHR DR: Zahraa Roca DO ? ORDERED: ??Gross Micro L3/2 ? Gross Description ?(Continued) CEDS This case was reviewed intradepartmentally. ??Results given to Dr. Christine by secure text by Dr. Naik on 09/20/24 at 3:22 pm. Copies To: ?? Zahraa Roca DO ?? [facility] ?? [address] [facility] ?? [place] [address] ?? [phone] ?? Sergei Christine MD ?? [facility] General Surgeons ?? [address] ?? [place] [address] ?? [phone] ?? [email or web address] ----- ------- Signed (signature on file) Lore Draper 09/20/24 1524 ? ----- ------- ? END OF REPORT ? us Generic External Data Provider LAB CYTOLOGY KIMBERLYE DANIEL Final Result [facility] [address] [place] [address] [phone] documented in this encounter Visit Diagnoses Not on filedocumented in this encounter Additional Health Concerns Assessment Noted Time PHQ-9 Depression Total Score: 0 11/28/19 24 11:23 AM EDT documented as of this encounter Care Teams Geographic Information System Analyst Relationship Specialty Start Date End Date Zahraa Roca DO 230 [place] [address] PCP - General Family Medicine 07/25/18 Christian Soria FNP [address] [place] [address] Nurse Practitioner Family Medicine 06/24/23 documented as of this encounter
--- OUTSIDE RECORDS SUMMARY | 2024-10-04 11:09 | XMS_ITS | Encounter Summary ---
Author Organization [employer] Address [address] [place] [address] 7 [place] [address] Care Team Providers Care Tank Inspector Name Role Phone Abelino Zahraa CANTOR Primary Care Provider + [phone] Christian Soria Unavailable Unavailable Reason for Visit * Reason Onset Date Comments UTOX confirmation Neg BZO 09/20/2024 Encounter Details Date Type Department Care Team ([facility] st Contact Info) Description 09/20/2024 Telephone [facility] MEDICINE [address] [place] [address] Mere Rios, HENRIK UTOX confirmation Neg BZO Social History Tobacco Use Types Packs/Day Years [...] Telephone Encounter - Mere Rios RN - 09/20/2024 2:19 PM EST Pt had CLINICAL APPLICATION CONSULTANT RV appt 09/12/24. UTOX was Neg BZO, sent out for confirmation. Confirmation returned 09/18/24, was Negative for BZO as well. Pt stated he has been taking his medication as prescribed. At same visit, pt had Clonazepam count discrepancy, he had 2, expected 4. Please advise of any changes to plan documented in this encounter Plan of Treatment Upcoming Encounters Date Type Department Care Team (Late st Contact Info) Description 10/11/2024 10:30 AM EDT Clinical Support [facility] MEDICINE [address] [place] [address] Mere Rios RN documented as of this encounter Visit Diagnoses Not on filedocumented in this encounter Additional Health Concerns Assessment Noted Time PHQ-9 Depression Total Score: 0 11/28/19 24 11:23 AM EDT documented as of this encounter Care Teams Tank Inspector Relationship Specialty Start Date End Date Zahraa Roca DO [address] [place] [address] PCP - General Family Medicine 07/25/18 Christian Soria FNP [address] [place] [address] Nurse Practitioner Family Medicine 06/24/23 documented as of this encounter
== END 2024-10-04 09:49 | disposition home or self-care (01) ==
LOC: HO.HGS 09:28
PROVIDERS: PCP Family Medicine; Visit Provider Surgery
DX: C44.92 Squamous cell carcinoma of skin, unspecified (principal)
CPT/HCPCS: 99214

== ENCOUNTER → 2024-10-04 09:28 | Outpatient (BNVA) | payer MEDICARE, MEDICAID, SELFPAY | PROVIDERS: PCP Family Medicine; Visit Provider Surgery | DX: C44.92 Squamous cell carcinoma of skin, unspecified (principal) | CPT/HCPCS: 99212 ==

== ENCOUNTER 2024-10-05 09:42 | Outpatient (REF) | payer MEDICARE, MEDICAID, SELFPAY ==
--- NOTE | ~2024-10-05 | XR_ITS ---
EXAMINATION: XR PELVIS 1-2 VIEWS HISTORY: fell 1 year ago, has had right buttock pain since. COMPARISON: Comparison is made with the prior examination dated 07/26/2023. FINDINGS: Two AP views of the pelvis are submitted. The patient is status post bilateral total hip arthroplasty. The orthopedic elements are unchanged in position. There is no radiographic evidence of loosening on these AP views. There is no fracture or dislocation. XR/XR pelvis 1-2V IMPRESSION: Status post bilateral total hip arthroplasty. Electronically signed by: Wilfredo Han MD 10/05/2024 12:19 PM EDT
--- NOTE | ~2024-10-05 | XR_ITS ---
EXAMINATION: XR LUMBOSACRAL SPINE CLINICAL INFORMATION: has ? lumbar spine promience at left spinous process mid lumbat spine. Chronic low back pain left side. COMPARISON: 03/08/2024. TECHNIQUE: Three views of the lumbosacral spine. FINDINGS: There is a mild to moderate levoconvex scoliosis centered at L2. There is a minimal reversal of the normal lordosis centered at L2. There is a moderate chronic compression deformity of L2. No additional compression deformities. No acute fractures. No suspicious bone lesion. There is a 4 mm anterolisthesis of L1 on L2. There is a 6 mm retrolisthesis of L3 on L4. Trace retrolisthesis L4 on L5. Severe loss of L2-3 disc space with a central uncl-py-vizh appearance. Moderate loss at L1-2 and L3-4 with disc vacuum phenomenon. There are degenerative hypertrophic facet changes left greater than right spanning L2-S1. The SI joints and sacrum appear normal. There are bilateral partially imaged hip arthroplasties. The soft tissues appear normal. XR/XR lumbar spine 2-3V IMPRESSION: 1. Chronic compression deformity at L2, with a focal kyphotic and levoscoliotic abnormality. No acute bony abnormalities. 2. Moderate to advanced multilevel spondylosis most significant at L1-2 through L3-4. Electronically signed by: Joao Pickett MD 10/05/2024 12:17 PM EDT
--- OUTSIDE RECORDS SUMMARY | 2024-10-05 10:42 | XMS_ITS | Encounter Summary ---
Author Organization [employer] Address [address] [facility] [address] 7t [place] [address] Care Team Providers Care Forensic Manager Name Role Phone YudiZahraa barahona Primary Care Provider + [phone] Christian Soria Unavailable Unavailable Encounter Details Date Type Department Care Team (Latest Contact Info) Description 10/05/2024 Travel Social History Tobacco Use Types Packs/Day [...] Support [facility] MEDICINE 230 [place] [address] Mere Rios RN documented as of this encounter Visit Diagnoses Not on filedocumented in this encounter Additional Health Concerns Assessment Noted Time PHQ-9 Depression Total Score: 0 11/28/19 24 11:23 AM EDT documented as of this encounter Care Teams Forensic Manager Relationship Specialty Start Date End Date Zahraa Roca DO 230 [place] [address] PCP - General Family Medicine 07/25/18 Christian Soria FNP [address] [place] [address] Nurse Practitioner Family Medicine 06/24/23 documented as of this encounter
--- OUTSIDE RECORDS SUMMARY | 2024-10-05 10:42 | XMS_ITS | Encounter Summary ---
Author Organization [employer] Address 75 [facility] 7t [place] [address] Care Team Providers Care Sales Apprentice Name Role Phone AbelinoZahraa Primary Care Provider + [phone] Christian Soria Unavailable Unavailable Encounter Details Date Type Department Care Team ([facility] st Contact Info) Description 10/05/2024 Population Health Risk Score [facility] () Department [address] [phone] Provider, Population Health Generic Social History Tobacco Use Types Packs/Day Years [...] 10/11/2024 10:30 AM EDT Clinical Support [facility] MEDICINE 230 [place] [address] Mere Rios RN documented as of this encounter Visit Diagnoses Not on filedocumented in this encounter Additional Health Concerns Assessment Noted Time PHQ-9 Depression Total Score: 0 11/28/19 11:23 AM EDT documented as of this encounter Care Teams Sales Apprentice Relationship Specialty Start Date End Date Zahraa Roca DO [address] [place] [address] PCP - General Family Medicine 07/25/18 Christian Soria FNP [address] [place] [address] Nurse Practitioner Family Medicine 06/24/23 documented as of this encounter
--- OUTSIDE RECORDS SUMMARY | 2024-10-05 10:42 | XMS_ITS | Encounter Summary ---
Author Organization [employer] Address 75 [facility] 7t [place] [address] Care Team Providers Care Obstetrics Teacher Name Role Phone Zahraa Roca DO Primary Care Provider + [phone] Christian Soria Unavailable Unavailable Reason for Visit * Reason Onset Date Comments Nurse Triage 10/04/2024 Encounter Details Date Type Department Care Team ([facility] st Contact Info) Description 10/04/2024 Telephone [facility] MEDICINE 230 [place], [place] [phone] Zahraa Roca DO 230 [place], [place] [phone] Nurse Triage Social History Tobacco Use Types Packs/Day Years [...] encounter Miscellaneous Notes * Telephone Encounter - Rolanda Keita LPN - 10/04/2024 11:39 AM EDT Triage call returned to patient who reports that he has some antoni rectal irritation. Patient does not feel skin lump or protrusion from rectum Patient reports he is not sure if it is caused by ridinghis bike daily. No active bleeding. Has had blood on outside of stool in the past last approx. Three months ago. Patient anxious as he has had a skin cancer identified on right upper thigh and is under care with . 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 Is not takingdaily stool softener. Patient wants to be seen for this concern. Disposition reviewed with patient in agreement with plan. No PCP or Team appts. Available at time of call. [facility] Walk In Center hours and availability provided for patient evaluation. Triage nurse informed the patient may have a wait of1-2 hours because Walk In Clinic may have delays due to patient volume or symptom acuity. Insuranceverified as active. Protocol Used: Rectal Symptoms (Adult) Protocol-Based Disposition: See in Office or Video Visit Today or Tomorrow Positive Triage Question: * Patient wants to be seen * All higher-acuity triage questions were negative Care Advice Discussed: * Stool Softener (Colace) for Hard Bowel Movements * Preventing Constipation * Reasons To Call Back - You become worse * Telephone Encounter - Go Vasquez - 10/04/2024 11:20 AM EDT Symptoms: Rectal Symptoms - Not Bleeding, Skin Lump Outcome: Schedule an appointment to be seen within 3 days Reason: Caller denied all higher acuity questions The caller accepted this outcome. Contact pt at [phone] documented in this encounter Plan of Treatment Upcoming Encounters Date Type Department Care Team (Late st Contact Info) Description 10/11/2024 10:30 AM EDT Clinical Support [facility] MEDICINE [address] [place] [address] Mere Rios RN documented as of this encounter Visit Diagnoses Not on filedocumented in this encounter Additional Health Concerns Assessment Noted Time PHQ-9 Depression Total Score: 0 11/28/19 24 11:23 AM EDT documented as of this encounter Care Teams Obstetrics Teacher Relationship Specialty Start Date End Date Zahraa Roca DO [address] [place] [address] PCP - General Family Medicine 07/25/18 Christian Soria FNP [address] [place] [address] Nurse Practitioner Family Medicine 06/24/23 documented as of this encounter
--- OUTSIDE RECORDS SUMMARY | 2024-10-05 10:43 | XMS_ITS | Encounter Summary ---
Author Organization [employer] Address [address] [place] [address] 7t [place] [address] Care Team Providers Care Ad Writer Name Role Phone Zahraa Roca DO Primary Care Provider + [phone] Christian Soria Unavailable Unavailable Reason for Visit * Reason Onset Date Comments Med Refill 12/31/2022 Encounter Details Date Type Department Care Team (Late st Contact Info) Description 12/31/[address] [facility] MEDICINE 230 [place], [place] [phone] Zahraa Roca DO 230 [place], [place] [phone] Med Refill Social History Tobacco Use Types [...] Description 10/11/2024 10:30 AM EDT Clinical Support [facility] MEDICINE 230 [place] [address] Mere Rios, HENRIK documented as of this encounter Visit Diagnoses Not on filedocumented in this encounter Additional Health Concerns Assessment Noted Time PHQ-9 Depression Total Score: 0 08/24/19 23 2:33 PM EST documented as of this encounter Care Teams Ad Writer Relationship Specialty Start Date End Date Zahraa Roca DO [address] [place] [address] PCP - General Family Medicine 07/25/18 Christian Soria FNP [address] [place] [address] Nurse Practitioner Family Medicine 06/24/23 documented as of this encounter
--- OUTSIDE RECORDS SUMMARY | 2024-10-05 10:43 | XMS_ITS | Encounter Summary ---
Author Organization [employer] Address [address] [facility] [address] 7t [place] [address] Care Team Providers Care Snap Shearer Name Role Phone YudiZahraa barahona Primary Care Provider + [phone] Christian Soria Unavailable Unavailable Encounter Details Date [...] Description 10/11/2024 10:30 AM EDT Clinical Support [address] [address] Mere Rios RN documented as of this encounter Procedures Procedure Name Priority Date/Time Associated Diagnosis Comments GROSS AND MICROSCOPIC LEVEL 3 Routine 09/19/2024 9:00 AM EST documented in this encounter Results * Gross and Microscopic Level 3 (09/19/2024 9:00 AM EST) 09/19/2024 9:00 AM EST 09/19/2024 12:05 PM EST [facility] - 09/20/2024 3:24 PM EST ----- ------- Name: Cristobal Enriquez ? Age/Sex: 54/M ? : 1970 Unit#: [id number] ?? Attend Dr: Sergei Christine MD ?Re09/19/24 ?Status: DEP REF ? Location: HO.LNP ?Disch: ? ----- ------- SPEC : [id number] ? RECD: 09/19/24-1204 ? STATUS: ??SOUT ? REQ NUM: [id number] ? NGA: 09/19/24-899 ? SUBM DR: Sergei [...] ? Age/Sex: 54/M ? : 1970 Unit#: [id number] ?? Attend Dr: Sergei Chritsine MD ?Re09/19/24 ?Status: DEP REF ? Location: HO.LNP ?Disch: ? ----- ------- SPEC : [id number] ? RECD: 09/19/24 ? STATUS: ??SOUT ? REQ NUM: [id number] ? NGA: 09/19/24 ? SUBM DR: Sergei Christine MD ? ENTERED: ??09/19/24 ?SP TYPE: Surgical ? OTHR DR: Zahraa Roca DO ? ORDERED: ??Gross Micro L3/2 ? Gross Description ?(Continued) CEDS This case was reviewed intradepartmentally. ??Results given to Dr. Christine by secure text by Dr. Naik on 09/20/24 at 3:22 pm. Copies To: ?? Zahraa Roca DO ?? [facility] ?? [address] [facility] ?? [place] [address] ?? [phone] ?? Sergei Christine MD ?? [facility] ?? [address] ?? [place] [address] ?? [phone] ?? [email or web address] ----- ------- Signed (signature on file) Lore Naik 09/20/24 1524 ? ----- ------- ? END OF REPORT ? us Generic External Data Provider LAB CYTOLOGY BRIAN SANCHEZ Final Result [facility] [address] [place] [phone] documented in this encounter Visit Diagnoses Not on filedocumented in this encounter Additional Health Concerns Assessment Noted Time PHQ-9 Depression Total Score: 0 11/28/19 24 11:23 AM EDT documented as of this encounter Care Teams Snap Shearer Relationship Specialty Start Date End Date Zahraa Roca DO 230 [place] [address] PCP - General Family Medicine 07/25/18 Christian Soria FNP 230 [place] [address] Nurse Practitioner Family Medicine 06/24/23 documented as of this encounter
--- OUTSIDE RECORDS SUMMARY | 2024-10-05 10:43 | XMS_ITS | Encounter Summary ---
Author Organization [employer] Address 75 [facility] 7t [place] [address] Care Team Providers Care Artificial Leather Calender Operator Name Role Phone Zahraa Roca DO Primary Care Provider + [phone] Christian Soria Unavailable Unavailable Reason for Visit * Reason Onset Date Comments PT-1 10/01/2024 Encounter Details Date Type Department Care Team ([facility] st Contact Info) Description 10/01/2024 Telephone [facility] MEDICINE 230 [place], [place] [phone] Zahraa Roca DO 230 [place], [place] [phone] PT-1 (/) Social History Tobacco Use Types [...] EDT Tc from pt requesting for the Auto Transport Driver locations for all his Pt 1 to be changed to [address] [place] [address]. If any questions contact pt at [phone] documented in this encounter Plan of Treatment Upcoming Encounters Date Type Department Care Team (Late st Contact Info) Description 10/11/2024 10:30 AM EDT Clinical Support [facility] MEDICINE 230 [place] [address] Mere Rios, HENRIK documented as of this encounter Visit Diagnoses Not on filedocumented in this encounter Additional Health Concerns Assessment Noted Time PHQ-9 Depression Total Score: 0 11/28/19 24 11:23 AM EDT documented as of this encounter Care Teams Artificial Leather Calender Operator Relationship Specialty Start Date End Date Zahraa Roca DO 230 [place] [address] PCP - General Family Medicine 07/25/18 Christian Soria FNP 230 [place] [address] Nurse Practitioner Family Medicine 06/24/23 documented as of this encounter
--- OUTSIDE RECORDS SUMMARY | 2024-10-05 10:43 | XMS_ITS | Encounter Summary ---
Author Organization [employer] Address 75 [facility] 7t [place] [address] Care Team Providers Care Clinical Researcher Name Role Phone SuryaZahraa lee Primary Care Provider + [phone] Christian Soria Unavailable Unavailable Reason for Visit * Reason Onset Date Comments UTOX confirmation Neg BZO 09/20/2024 Encounter Details Date Type Department Care Team (Late st Contact Info) Description 09/20/2024 Telephone [facility] MEDICINE 230 [place] [address] Mere Rios, HENRIK UTOX confirmation Neg BZO [...] - 09/20/2024 2:19 PM EST Pt had [employer] RV appt 09/12/24. UTOX was Neg BZO, [...] 10:30 AM EDT Clinical Support [facility] MEDICINE [address] [place] [address] Mere Rios, RN documented as of this encounter Visit Diagnoses Not on filedocumented in this encounter Additional Health Concerns Assessment Noted Time PHQ-9 Depression Total Score: 0 11/28/19 24 11:23 AM EDT documented as of this encounter Care Teams Clinical Researcher Relationship Specialty Start Date End Date Zahraa Roca DO 230 [place] [address] PCP - General Family Medicine 1/1/19 Christian Soria FNP 230 [place] [address] Nurse Practitioner Family Medicine 06/24/23 documented as of this encounter
--- OUTSIDE RECORDS SUMMARY | 2024-10-05 10:43 | XMS_ITS | Encounter Summary ---
Author Organization [employer] Address [address] [facility] [address] 7t [place] [address] Care Team Providers Care Supervisor Silvering Department Name Role Phone SuryaZahraa lee Primary Care Provider + [phone] Christian Soria Unavailable Unavailable Reason for Visit * Reason Onset Date Comments LUNG PULLER Initial completed today 09/12/2024 UTOX Neg BZO. sent out 09/12/2024 Encounter Details Date Type Department Care Team ([facility] st Contact Info) Description 09/12/2024 Telephone [facility] MEDICINE 230 [place] [address] Mere Rios, HENRIK LUNG PULLER Initial completed today; UTOX Neg BZO. sent [...] - 09/12/2024 10:05 AM EST Pt had LUNG PULLER Initial appt today UTOX Neg BZO, sent out for confirmation Pt had 2 Clonazepam remaining, anticipated 4. States he thinks 2 are under his dresser still. documented in this encounter Plan of Treatment Upcoming Encounters Date Type Department Care Team (Late st Contact Info) Description 10/11/2024 10:30 AM EDT Clinical Support [facility] MEDICINE [address] [place] [address] Mere Rios, RN documented as of this encounter Visit Diagnoses Not on filedocumented in this encounter Additional Health Concerns Assessment Noted Time PHQ-9 Depression Total Score: 0 11/28/19 24 11:23 AM EDT documented as of this encounter Care Teams Supervisor Silvering Department Relationship Specialty Start Date End Date Zahraa Roca DO 230 [place] [address] PCP - General Family Medicine 07/25/18 Christian Soria FNP 230 [place] [address] Nurse Practitioner Family Medicine 06/24/23 documented as of this encounter
--- OUTSIDE RECORDS SUMMARY | 2024-10-05 10:43 | XMS_ITS | Encounter Summary ---
Author Organization [employer] Address 75 [facility] 7t [place] [address] Care Team Providers Care Multiple Drum Sander Helper Name Role Phone Zahraa Roca DO Primary Care Provider + [phone] Christian Soria Unavailable Unavailable Reason for Visit * Reason Onset Date Comments PT1 01/03/2024 Encounter Details Date Type Department Care Team ([facility] st Contact Info) Description 01/03/2024 Telephone [facility] MEDICINE 230 [place], [place] [phone] Zahraa Roca DO 230 [place], [place] [phone] PT1 Social History Tobacco Use Types Packs/Day [...] or facility name: meth[facility]one clinic Facility Address: [address] [place] [address] Escort needed: Y/N: No Do you have a wheelchair: Y/N: No If yes- Manual or electric: none Visits: 7 days a week documented in this encounter Plan of Treatment Upcoming Encounters Date Type Department Care Team ([facility] Contact Info) Description 10/11/2024 10:30 AM EDT Clinical Support [facility] MEDICINE [address] [place] [address] Mere Rios RN documented as of this encounter Visit Diagnoses Not on filedocumented in this encounter Additional Health Concerns Assessment Noted Time PHQ-9 Depression Total Score: 0 11/28/19 11:23 AM EDT documented as of this encounter Care Teams Multiple Drum Sander Helper Relationship Specialty Start Date End Date Zahraa Roca DO 230 [place] [address] PCP - General Family Medicine 07/25/18 Christian Soria FNP 230 [place] [address] Nurse Practitioner Family Medicine 06/24/23 documented as of this encounter
--- OUTSIDE RECORDS SUMMARY | 2024-10-05 10:43 | XMS_ITS | Encounter Summary ---
Author Organization [employer] Address 75 [facility] 7t [place] [address] Care Team Providers Care Rooming House Keeper Name Role Phone Zahraa Roca DO Primary Care Provider + [phone] Christian Soria Unavailable Unavailable Reason for Visit * Reason Onset Date Comments Patient message 09/12/2024 Encounter Details Date Type Department Care Team ([facility] Contact Info) Description 09/12/2024 Telephone [facility] MEDICINE 230 [place], [place] [phone] Zahraa Roca DO 230 [place], [place] [phone] Patient message Social History Tobacco Use Types [...] 1:08 PM EST TC placed to patient [phone] in regards to below message. Patient reports he is seeing his vascular doctor tomorrow at [facility] and he will discuss the spot on the R thigh with the vascular provider.Patient reports he has applied ice to the lump on his back and it has decreased. Patient informed if the lump does not completely resolve or increases in size again, he should come to the [facility] to be evaluated. Patient verbalized understanding. [...] on my spine, I will go to [facility] for that documented in this encounter Plan of Treatment Upcoming Encounters Date Type Department Care Team (Late st Contact Info) Description 10/11/2024 10:30 AM EDT Clinical Support [facility] MEDICINE 230 [place] [address] Mere Rios, HENRIK documented as of this encounter Visit Diagnoses Not on filedocumented in this encounter Additional Health Concerns Assessment Noted Time PHQ-9 Depression Total Score: 0 11/28/19 24 11:23 AM EDT documented as of this encounter Care Teams Rooming House Keeper Relationship Specialty Start Date End Date Zahraa Roca DO [address] [place] [address] PCP - General Family Medicine 07/25/18 Christian Soria FNP [address] [place] [address] Nurse Practitioner Family Medicine 06/24/23 documented as of this encounter
--- OUTSIDE RECORDS SUMMARY | 2024-10-05 10:43 | XMS_ITS | Encounter Summary ---
Author Organization [employer] Address 75 [facility] 7t [place] [address] Care Team Providers Care Proof Inspector Name Role Phone Zahraa Roca DO Primary Care Provider + [phone] Christian Soria Unavailable Unavailable Reason for Visit * Reason Onset Date Comments Appointment Request 10/03/2024 Encounter Details Date Type Department Care Team ([facility] Contact Info) Description 10/03/2024 Telephone [facility] MEDICINE 230 [place], [place] [phone] Zahraa Roca DO 230 [place], [place] [phone] Appointment Request Social History Tobacco Use Types [...] to clear him for his new address. [employer] RV rescheduled for 10/11/24 @ 10:30am * Telephone Encounter - Gabbi Arreola - 10/03/2024 9:19 AM EDT Tc from pt requesting a call back to r/s appt. Pt canc. 10/10 appt because has no ride. documented in this encounter Plan of Treatment Upcoming Encounters Date Type Department Care Team (Late st Contact Info) Description 10/11/2024 10:30 AM EDT Clinical Support [address] [address] Mere Rios, HENRIK documented as of this encounter Visit Diagnoses Not on filedocumented in this encounter Additional Health Concerns Assessment Noted Time PHQ-9 Depression Total Score: 0 11/28/19 24 11:23 AM EDT documented as of this encounter Care Teams Proof Inspector Relationship Specialty Start Date End Date Zahraa Roca DO 230 [place] [address] PCP - General Family Medicine 07/25/18 Christian Soria FNP [address] [place] [address] Nurse Practitioner Family Medicine 06/24/23 documented as of this encounter
--- OUTSIDE RECORDS SUMMARY | 2024-10-05 10:43 | XMS_ITS | Encounter Summary ---
Author Organization [employer] Address 75 [facility] 7t [place] [address] Care Team Providers Care Colorman Name Role Phone Zahraa Roca DO Primary Care Provider + [phone] Christian Soria Unavailable Unavailable Reason for Visit * Reason Onset Date Comments PT-1 04/17/2024 Encounter Details Date Type Department Care Team ([facility] st Contact Info) Description 04/17/2024 Telephone [facility] MEDICINE 230 [place], [place] [phone] Zahraa Roca DO 230 [place], [place] [phone] PT-1 Social History Tobacco Use Types Packs/Day [...] Y/N: Yes Provider name or facility name: [facility] Facility Address: [address] [place] [address] Escort needed: Y/N: No Do you have a wheelchair: Y/N: No If yes- Manual or electric: N/A Visits: Twice a month documented in this encounter Plan of Treatment Upcoming Encounters Date Type Department Care Team (Late st Contact Info) Description 10/11/2024 10:30 AM EDT Clinical Support [facility] MEDICINE 230 [place] [address] Mere Rios RN documented as of this encounter Visit Diagnoses Not on filedocumented in this encounter Additional Health Concerns Assessment Noted Time PHQ-9 Depression Total Score: 0 11/28/19 11:23 AM EDT documented as of this encounter Care Teams Colorman Relationship Specialty Start Date End Date Zahraa Roca DO 230 [place] [address] PCP - General Family Medicine 07/25/18 Christian Soria FNP [address] [place] [address] JAN[place] Merchant [address] Nurse Practitioner Family Medicine 06/24/23 documented as of this encounter
--- OUTSIDE RECORDS SUMMARY | 2024-10-05 10:43 | XMS_ITS | Encounter Summary ---
Author Organization [employer] Address [address] [place] [address] Care Team Providers Care Record Label Internship Name Role Phone Betzaida Rocafer Primary Care Provider + [phone] Christian Soria Unavailable Unavailable Reason for Visit * Reason Comments Rectal Pain Encounter Details Date Type Department Care Team (Late st Contact Info) Description 10/05/2024 9:00 AM EDT Office Visit [facility] [address] [address] Chronic left-sided low back pain without sciatica (Primary Dx); Right buttock pain; Elevated blood pressure reading in office without diagnosis of hypertension Social History Tobacco Use Types Packs/Day Years [...] AM EST documented as of this encounter Last Filed Vital Signs Vital Sign Reading Time Taken Comments Blood Pressure 159/87 10/05/2024 8:51 AM EDT Pulse 63 10/05/2024 8:51 AM EDT Temperature 36.2 ??C (97.2 ??F) 10/05/2024 8:51 AM ED T Respiratory Rate 18 10/05/2024 8:51 AM EDT Oxygen Saturation 98% 10/05/2024 8:51 AM EDT Inhaled Oxygen Concentration - - Weight 76.8 kg (169 lb 6.4 oz) 10/05/2024 8:51 A M EDT Height - - Body Mass Index 23.63 06/06/2024 11:24 AM EST documented in this encounter Plan of Treatment Upcoming Encounters Date Type Department Care Team (Late st Contact Info) Description 10/11/2024 10:30 AM EDT Clinical Support [facility] [address] [place] [id number] Mere Rios, HENRIK Scheduled Orders Name Type Priority Associated Diagnoses Orde r Schedule XR Lumbar Spine 2-3 Views Imaging Routine Chronic left-sided low back pain without sciatica Expected: 10/05/2024, Expires: 10/05/2025 XR Pelvis 1-2 Views Imaging Routine Right buttock pain Expected: 10/05/2024, Expires: 10/05/2025 documented as of this encounter Visit Diagnoses Diagnosis Chronic left-sided low back pain without sciatica- Primary Right buttock pain Unspecified myalgia and myositis Elevated blood pressure reading in office without diagnosis of hypertension documented in this encounter Administered Medications Inactive Administered Medications - up to 3 most recent administrations Medication Order MAR Action Action Date Dose Rate Site ketorolac (Toradol) injection 30 mg 30 mg, Intramuscular, Once, On Tue10/05/24 at 0945, For 1 doseIndications:Chronic left-sided low back pain without sciatica Given 10/05/2024 9:45 AM EDT 30 mg L eft Deltoid documented in this encounter Additional Health Concerns Assessment Noted Time PHQ-9 Depression Total Score: 0 11/28/19 24 11:23 AM EDT documented as of this encounter Care Teams Record Label Internship Relationship Specialty Start Date End Date Zahraa Roca DO [address] [place] [address] PCP - General Family Medicine 07/25/18 Christian Soria FNP [address] [place] [address] Nurse Practitioner Family Medicine 06/24/23 documented as of this encounter
--- OUTSIDE RECORDS SUMMARY | 2024-10-05 10:43 | XMS_ITS | Encounter Summary ---
Author Organization [employer] Address [address] [facility] [address] [place] [address] Care Team Providers Care Dental Associate Name Role Phone Zahraa Roca DO Primary Care Provider + [phone] Christian Soria Unavailable Unavailable Reason for Visit * Reason Onset Date Comments PT-1 03/15/2024 Encounter Details Date Type Department Care Team ([facility] st Contact Info) Description 03/15/2024 Telephone [facility] [address] [place], [place] [phone] Zahraa Roca DO [address] [place], [place] [phone] PT-1 Social History Tobacco Use Types Packs/Day [...] Y/N: Yes Provider name or facility name: [facility] Facility Address: [address] [place] [address] Escort needed: Y/N: No Do you have a wheelchair: Y/N: No If yes- Manual or electric: no Visits: 3 documented in this encounter Plan of Treatment Upcoming Encounters Date Type Department Care Team (Late st Contact Info) Description 10/11/2024 10:30 AM EDT Clinical Support [facility] [address] [place] [address] Mere Rios RN documented as of this encounter Visit Diagnoses Not on filedocumented in this encounter Additional Health Concerns Assessment Noted Time PHQ-9 Depression Total Score: 0 11/28/19 24 11:23 AM EDT documented as of this encounter Care Teams Dental Associate Relationship Specialty Start Date End Date Zahraa Roca DO [address] [place] [address] PCP - General Family Medicine 07/25/18 Christian Soria FNP [address] [place] [address] Nurse Practitioner Family Medicine 06/24/23 documented as of this encounter
--- OUTSIDE RECORDS SUMMARY | 2024-10-05 10:43 | XMS_ITS | Encounter Summary ---
Author Organization [employer] Address [address] [facility] [address] [place] [address] Care Team Providers Care Outreach Professional Name Role Phone Zahraa Roca DO Primary Care Provider + [phone] Christian Soria Unavailable Unavailable Reason for Visit * Reason Comments Care Coordination CHW outreach for SDO H PT-1 and food needs-referral completed Encounter Details Date Type Department Care Team (Latest Contact Info) Description 10/01/2024 Patient Outreach [facility] [address] [place] [address] Zahraa Roca DO [address] [place], [place] [phone] Care Coordination (CHW outreach for SDOH PT-1 [...] send out [facility]. Patient verbalizes understandin g, and able to agree with plan to follow up. Patient educated on extended clinic hours on Mondays through Wednesdays, and Walk-In Urgent Care Located in [facility] of [facility]. Patient provided with after-hours line for [facility], , which offer night time triage service and option to transfer to corporate relations director provider if needed. documented in this encounter Plan of Treatment Upcoming Encounters Date Type Department Care Team (Late st Contact Info) Description 10/11/2024 10:30 AM EDT Clinical Support [facility] [address] [place] [address] Mere Rios, HENRIK documented as of this encounter Visit Diagnoses Not on filedocumented in this encounter Additional Health Concerns Assessment Noted Time PHQ-9 Depression Total Score: 0 11/28/19 24 11:23 AM EDT documented as of this encounter Care Teams Outreach Professional Relationship Specialty Start Date End Date Zahraa Roca DO [address] [place] [phone] PCP - General Family Medicine 07/25/18 Christian Soria FNP [address] [place] [phone] Nurse Practitioner Family Medicine 06/24/23 documented as of this encounter
--- OUTSIDE RECORDS SUMMARY | 2024-10-05 10:43 | XMS_ITS | Encounter Summary ---
Author Organization [employer] Address [address] [facility] [address] [place] [address] Care Team Providers Care Derrick Worker Name Role Phone SuryaZahraa lee Primary Care Provider + [phone] Christian Soria Unavailable Unavailable Reason for Visit * Reason Comments HEAD BANDER AND LINER OPERATOR Initial HEAD BANDER AND LINER OPERATOR Initial Encounter Details Date Type Department Care Team (Latest Contact Info) Description 09/12/2024 9:30 AM EST Clinical Support [facility] [address] [place] [address] Mere Rios RN Anxiety (Primary Dx); Opioid [...] AM EST S: Pt here for initial HEAD BANDER AND LINER OPERATOR Visit. Prescribed Clonazepam 1mg QD. States he [...] is apart of a methadone clinic in [place]. O: HEAD BANDER AND LINER OPERATOR Tier 1. Pt currently prescribed Clonazepam 1m QD. MACHINE II COREM[employer]ER verified today. Rx last filled on 08/20/24. [...] count. Last PCP visit was 06/06/24. A: HEAD BANDER AND LINER OPERATOR Contract Initiation Visit, Chronic BZO use r/t anxiety. P: HEAD BANDER AND LINER OPERATOR contract reviewed and signed, pt provided copy. Pt to continue taking medication only as prescribed; Next HEAD BANDER AND LINER OPERATOR RV appointment scheduled for 10/10/24 @ 9am, F/U sooner PRN. Appointment reminder given. Pt verbalized understanding and agreed to plan. documented in this encounter Plan of Treatment Upcoming Encounters Date Type Department Care Team (Late st Contact Info) Description 10/11/2024 10:30 AM EDT Clinical Support [address] [address] Mere Rios, RN documented as of this encounter Procedures Procedure Name Priority Date/Time Associated Diagnosis Comments POCT MARIO-14 URINE DRUG SCREEN Routine 09/12/2024 9:54 AM EST Opioid dependence on agonist therapy ([facility]) DRUG MONITORING, BENZODIAZEPINES, QUANTITATIVE, URINE [...] - 09/12/2024 9:54 AM EST UTOX cup Lot#[id number] Exp. 03/13/26 Internal Pass Control Zahraa Roca DO POINT OF CARE TEST ENTER/JOANNA T ORDERABLES Final Result * Drug Monitoring, Benzodiazepines, Quantitative, Urine (09/12/2024 9:30 AM EST) Nordiazepam, GCMS Urine NEGATIVE [facility] Oxazepam, GCMS Urine NEGATIVE [facility] Lorazepam GCMS Urine NEGATIVE [facility] Alprazolam, GCMS Urine NEGATIVE [facility] Alphahydroxytriazolam, GCMS Ur NEGATIVE [facility] Temazepam, GCMS Urine NEGATIVE [facility] Alphahydroxymidazolam,GC MS Ur NEGATIVE [facility] Aminoclonazepam, GCMS Urine NEGATIVE [facility] Flurazepam Metabolite,GCMS Ur NEGATIVE [facility] Benzodiazepines Comments SEE NOTE [facility] Comment:This drug testing is for medical treatment only. Analysiswas performed as non-forensic testing and these resultsshould be used only by healthcare providers to renderdiagnosis or treatment, or to monitor progress of medicalconditions.LDT Notes:Confirmation tests were developed and their analyticalperformance characteristics have been determined by [employer]. It has not been cleared or approved by the FDA.This assay has been validated pursuant to the CLIAregulations and is used for clinical purposes.Healthcare Providers needing Interpretation assistance,please contact us at [phone] ( ) M-F,8am to 10pm ESTTHIS TEST PERFORMED AT:[facility] [employer] [place] [phone] DIRECTOR: SOCRATES MATHIAS MD Urine (Urine, Random) 09/12/2024 9:30 AM EST 09/12/2024 4:41 PM EST us Zahraa Roca DO LAB URINE ORDERABLES Final R esult [facility] [address] [place] [phone] documented in this encounter Visit Diagnoses Diagnosis Anxiety- Primary Anxiety state, unspecified Opioid dependence on agonist therapy (CMS/HCC) documented in this encounter Additional Health Concerns Assessment Noted Time PHQ-9 Depression Total Score: 0 11/28/19 24 11:23 AM EDT documented as of this encounter Care Teams Derrick Worker Relationship Specialty Start Date End Date Zahraa Roca DO [address] [place] [address] PCP - General Family Medicine 07/25/18 Christian Soria FNP [address] [place] [address] Nurse Practitioner Family Medicine 06/24/23 documented as of this encounter
--- OUTSIDE RECORDS SUMMARY | 2024-10-05 10:43 | XMS_ITS | Clinical Summary ---
Author Organization [employer] Address [address] [facility] [address] [place] [address] Care Team Providers Care Marine Water Tender Name Role Phone Abelino Zahraa Primary Care Provider + [phone] Christian Soria Unavailable Unavailable Allergies No known [...] 2 each 3 09/12/19 25 026 Active Blood Pressure kit 1 each 2 times daily. 1 kit 10/06/19 25 026 Active clonazePAM (KlonoPIN) 1 MG tabletIndicat ions:Anxiety Take 1 tablet (1 mg) by mouth Once per day for 28 days. 28 tablet 08/20/19 25 025 Discontinued(Re order (will not trigger notification to Pharmacy)) Hospital, Clinic, or Other Facility Administered Medication Ordered Dose Route Frequency Start Date End Date Status ketorolac (Toradol) injection 30 mgIndications:Chronic left-sided low back pain without sciatica 30 mg IM Once 10/05/2024 10/05/2024 Ended Active Problems Problem Noted Date Diagnosed Date [...] any issues or concerns, he should contact [facility]. All his questions were answered. [...] organization. Date Type Department Care Team Description 10/05/2024 9:00 AM EDT Office Visit [facility] [address] [place] [address] Chronic left-sided low back pain without sciatica (Primary Dx); Right buttock pain; Elevated blood pressure reading in office without diagnosis of hypertension 10/05/2024 Population Health Risk Score [facility] ([facility] Department [address] [phone] Provider, Population Health Generic 10/05/2024 Travel 10/04/[address] [address] Zahraa Roca DO Nurse Triage 10/03/[address] [address] Zahraa Roca DO Appointment Request 10/02/2024 Patient Outreach [address] [address] Zahraa Roca DO Care Coordination (CHW outreach for SDOH PT-1 - LVM ) 10/02/[address] [address] Zahraa Roca DO PT-1 10/01/2024 Patient Outreach [address] [address] Zahraa Roca DO Care Coordination (CHW outreach for SDOH PT-1 and food needs-referral completed /) 10/01/[address] [address] Zahraa Roca DO PT-1 (/) 09/21/[address] [address] Zahraa Roca DO Recall Letter (Recall Letter sent 09/21/24.) 09/20/[address] [address] Mere Rios RN UTOX confirmation Neg BZO 09/19/2024 Orders Only GENERIC EXTERNAL DATA DEPARTMENT Provider, Generic External Data 09/17/2024 Patient Outreach [address] [address] Zahraa Roca DO Transition Of Care (Tcm) 09/12/2024 9:30 AM EST Clinical Support [address] [address] Mere Rios RN Anxiety (Primary Dx); Opioid dependence on agonist therapy (CMS/HCC) 09/12/[address] [address] Zahraa Roca DO Patient message 09/12/2024 Telephone [facility] [address] [facility] [place] [address] Mere Rios, RN BRAKE SPECIALIST Initial completed today; UTOX Ashkan BZO. sent out 09/12/2024 Refill [facility] [address] [facility] [place] [address] Mere Rios, RN Anxiety 09/12/2024 Travel 08/29/2024 Telephone [facility] MED[facility] [address] [place] [address] Mere Rios, RN NCNS BRAKE SPECIALIST Initial X1 08/29/2024 Telephone [facility] MED[facility]INE [address] [place] [address] Mere Rios, HENRIK Recommend BRAKE SPECIALIST Tier 1 08/20/2024 Refill [facility] [place] [address] Zahraa Roca DO Anxiety 08/09/2024 Telephone [facility] [address] [place] [address] Zahraa Roca DO Appt question 08/08/2024 Telephone [facility] [address] [place] [address] Zahraa Roca DO 08/03/2024 Telephone [facility] [address] [place] [address] Zahraa Roca DO Appointment Request 07/24/2024 Patient Outreach [facility] [address] [place], [place] [phone] Zahraa Roca DO Transition Of Care (Tcm) 07/23/2024 Orders Only GENERIC EXTERNAL DATA DEPARTMENT Provider, Generic External Data 07/17/2024 Patient Outreach [facility] [address] [place] [address] Zahraa Roca DO Care Coordination (CHW outreach for SDOH PT-1 - LVM ) 07/16/2024 Telephone [facility] MEDICINE [address] [place] [address] Zahraa Roca DO callback requested 07/16/2024 Refill [facility] [address] [place] [address] Zahraa Roca, DO Anxiety 07/13/[address] [facility] [address] [facility], [place] [phone] Zahraa Roca, DO PT-1 07/13/[address] [facility] [address] [place] [address] Zahraa Roca, DO Nurse Triage 07/12/[address], [place] [phone] Zahraa Roca, DO 07/10/2024 Orders Only [address] [place] [address] Zahraa Roca, DO Lesion of subcutaneous tissue (Primary Dx) [...] oz) 10/05/2024 8:51 A M EDT Height 180.3 cm (5' 11 ) 06/06/2024 11:24 AM EST Body Mass Index 23.63 06/06/2024 11:24 AM EST Plan of Treatment Upcoming Encounters Date Type Department Care Team (Late st Contact Info) Description 10/11/2024 10:30 AM EDT Clinical Support [facility] [address] [place] [address] [phone] Mere Rios, HENRIK Health Maintenance Due Date [...] X-Ray: Bitewings 03/20/2025 03/19/2024, 10/10 Tobacco Screening 10/05/2025 10/05/2024 Colonoscopy 03/16/2026 03/16/2023 Colorectal Cancer Screening 03/16/2026 [...] 9:00 AM EST 09/19/2024 12:05 PM EST [facility] - 09/20/2024 3:24 PM EST ----- ------- Name: Cristobal Enriquez ? Age/Sex: 54/M ? : 1970 Unit#: [id number] ?? Attend Dr: Sergei Christine MD ?Re09/19/24 ?Status: DEP REF ? Location: HO.LNP ?Disch: ? ----- ------- SPEC : [id number] ? RECD: 09/19/24-1204 ? STATUS: ??SOUT ? REQ NUM: [id number] ? NGA: 09/19/24-09 ? SUBM DR: Sergei Christine MD ? ENTERED: ??09/19/24-1209 ?SP TYPE: Surgical ? OTHR DR: Zahraa [...] ? Age/Sex: 54/M ? : 1970 Unit#: [id number] ?? Attend Dr: Sergei Christine MD ?Re09/19/24 ?Status: DEP REF ? Location: HO.LNP ?Disch: ? ----- ------- SPEC : [id number] ? RECD: 09/19/24-1204 ? STATUS: ??SOUT ? REQ NUM: [id number] ? NGA: 09/19/24-0900 ? SUBM DR: Sergei Christine MD ? ENTERED: ??09/19/24-1208 ?SP TYPE: Surgical ? OTHR DR: Zahraa Roca DO ? ORDERED: ??Gross Micro L3/2 ? Gross Description ?(Continued) CEDS This case was reviewed intradepartmentally. ??Results given to Dr. Christine by secure text by Dr. Naik on 09/20/24 at 3:22 pm. Copies To: ?? Zahraa Roca DO ?? [facility] ?? [address] [facility] ?? [place] [address] ?? [phone] ?? Sergei Christine MD ?? [facility] ?? [address] ?? [place] [address] ?? [phone] ?? [email or web address] ----- ------- Signed (signature on file) Lore Castaic 09/20/24 1524 ? ----- ------- ? END OF REPORT ? us Generic External Data Provider LAB CYTOLOGY KIMBERLYKate PORTERTAMI Final Result [facility] [address] [place] [phone] * (ABNORMAL) POCT MARIO-14 Urine Drug Screen (09/12/2024 9:54 AM EST) THC Positive Benzodiazepines Screen, Urine Negative Methadone Screen, Urine Positive Urine Urine specimen obtained by clean catch procedure / Unknown 09/12/2024 9:54 AM EST Mere Smalls RN - 09/12/2024 9:54 AM EST UTOX cup Lot#[id number] Exp. 03/13/26 Internal Pass Control Zahraa Roca DO POINT OF CARE TEST ENTER/JOANNA T ORDERABLES Final Result * Drug Monitoring, Benzodiazepines, Quantitative, Urine (09/12/2024 9:30 AM EST) Nordiazepam, GCMS Urine NEGATIVE [facility] Oxazepam, GCMS Urine NEGATIVE [facility] Lorazepam GCMS Urine NEGATIVE [facility] Alprazolam, GCMS Urine NEGATIVE [facility] Alphahydroxytriazolam, GCMS Ur NEGATIVE [facility] Temazepam, GCMS Urine NEGATIVE [facility] Alphahydroxymidazolam,GC MS Ur NEGATIVE [facility] Aminoclonazepam, GCMS Urine NEGATIVE [facility] Flurazepam Metabolite,GCMS Ur NEGATIVE [facility] Benzodiazepines Comments SEE NOTE [facility] Comment:This drug testing is for medical treatment only. Analysiswas performed as non-forensic testing and these resultsshould be used only by healthcare providers to renderdiagnosis or treatment, or to monitor progress of medicalconditions.LDT Notes:Confirmation tests were developed and their analyticalperformance characteristics have been determined by [employer]. It has not been cleared or approved by the FDA.This assay has been validated pursuant to the CLIAregulations and is used for clinical purposes.Healthcare Providers needing Interpretation assistance,please contact us at [phone] ( ) M-F,8am to 10pm ESTTHIS TEST PERFORMED AT:[facility] [address] [phone] DIRECTOR: SOCRATES MATHIAS MD Urine (Urine, Random) 09/12/2024 9:30 AM EST 09/12/2024 4:41 PM EST us Zahraa Roca DO LAB URINE ORDERABLES Final R esult [facility] [address] [place] [address] [phone] * XR Elbow 1-2 Views Right (08/15/2024 10:35 PM EST) Anatomical Region Laterality Modality Upper Extremities, Elbow Right Radiogr aphic Imaging 08/15/2024 10:3 5 PM EST Narrative 08/15/2024 10:37 PM EST ? [facility] ?[address] ?[place] [address] ?XRay Report ? Signed ? Patient: Szydlo,Cristobal J ?MR#: [id number] ?? 54 ? : 1970 ?Acct:[id number] ? Age/Sex: 54 / M ?ADM Date: 01/22/25 ? Loc: HO.US ? Attending Dr: Zamzam Richmond PA-C ? Ordering Physician: Sergei Christine MD ?? Date of Service: 08/15/24 ?? Procedure(s): XR elbow RT 2V ?? Accession Number(s): [id number] ? cc: Zahraa Roca DO; Sergei Christine [...] ? DD/ 34 ? TD/TT: 08/15/242234 ? Supervisor [employer]: ? Procedure Note Aziza, Image - 08/15/[address] [address] XRay Report Signed Patient: Cristobal Enriquez JMR#: [id number] 54 : 1970Acct:[id number] Age/Sex: 54 / MADM Date: 08/15/24 Loc: HO.US Attending Dr: Zamzam Richmond PA-C Ordering Physician: Sergei Christine MD Date of Service: 08/15/24 Procedure(s): XR elbow RT 2V Accession Number(s): [id number] cc: Zahraa Roca DO; Sergei Christine MD [...] MD Signed By: <Electronically signed by Shalom Cornoado MD in OV> 08/15/242235 DD/ 34 TD/TT: 08/15/242234 Supervisor [employer]: [facility] External Provider IMG XR PROCEDURES Edited Result - Final * VASC Lower Extremity Venous Insufficiency Bilateral (08/15/2024 8:40 AM EST) 08/15/2024 8:40 AM EST Narrative [facility] - 08/20/2024 7:43 AM EST ? [facility] ?[address] ?[place] [address] ? Ultrasound Report ? Signed ? Patient: Cristobal Enriquez ?MR#: [id number] ?? 54 ? : 1970 ?Acct:[id number] ? Age/Sex: 54 / M ?ADM Date: 08/15/24 ? Loc: HO.US ? Attending Dr: Zamzam Richmond PA-C ? Ordering Physician: Zamzam Richmond PA-C ?? Date of Service: 08/15/24 ?? Procedure(s): US venous insuf bilat ?? Accession Number(s): [id number] ? cc: Zahraa Roca DO; Zamzam Richmond [...] DD/ 0840 ? TD/TT: 08/15/24 0930 ? Supervisor [employer]: ? Procedure Note Donlaytonter, Image - 08/20/[address] [address] Ultrasound Report Signed Patient: Cristobal Enriquez JMR#: [id number] 54 : 1970Acct:[id number] Age/Sex: 54 / MADM Date: 08/15/24 Loc: .US Attending Dr: Zamzam Richmond PA-C Ordering Physician: Zamzam Richmond PA-C Date of Service: 08/15/24 Procedure(s): US venous insuf bilat Accession Number(s): [id number] cc: Zahraa Roca DO; Zamzam Richmond PA-C [...] 08/20/24 0740 DD/ 0840 TD/TT: 08/15/24 0930 Supervisor [employer]: [facility] External Provider CV VASC ULAR PROCEDURES Edited Result - Final [facility] [address] [place] [address] * US VENOUS DUPLEX LE RT (07/23/2024 5:16 PM EST) Anatomical Region Laterality Modality Abdomen Ultrasound 07/23/2024 5:16 PM EST Narrative 07/23/2024 5:17 PM EST ? [facility] ?[address] ?[place] [address] ? Ultrasound Report ? Signed ? Patient: Cristobal Enriquez ?MR#: [id number] ?? 54 ? : 1970 ?Acct:[id number] ? Age/Sex: 54 / M ?ADM Date: 12/30/24 ? Loc: HO.ED ? Attending Dr: ? Ordering Physician: Raul Almaguer ?? Date of Service: 07/23/24 ?? Procedure(s): US venous duplex LE RT ?? Accession Number(s): [id number] ? cc: Zahraa Roca DO; Raul Almaguer [...] OV> ?07/23/24 1717 ? DD/ ? TD/TT: 07/23/24 1716 ? Supervisor [employer]: ? Procedure Note Donotclauinterpreter, Image - 07/23/2024 [place] [address] Ultrasound Report Signed Patient: Cristobal Enriquez JMR#: [id number] 54 : 1970Acct:[id number] Age/Sex: 54 / MADM Date: 07/23/24 Loc: HO.ED Attending Dr: Ordering Physician: Raul Almaguer Date of Service: 07/23/24 Procedure(s): US venous duplex LE RT Accession Number(s): [id number] cc: Zahraa Roca DO; Raul Almaguer CLINICAL [...] in OV> 07/23/241716 DD/ 15 TD/TT: 07/23/241715 Supervisor [employer]: [facility] External Provider IMG US PROCEDURES Final Result * SARS-CoV-2 RNA, Influenza A/B, and RSV RNA, Ql NAAT (07/23/2024 12:47 PM EST) Influenza A PCR NEGATIVE Negative [facility] Influenza B PCR NEGATIVE Negative [facility] Resp Syncy Virus RNA Qual PCR NEGATIVE Negative [facility] SARS COV2 PCR NEGATIVE Negative [facility] Comment:All test results mus [...] use by authorized laboratories.Testing performed on the [employer] GeneXpert utilizingreal-time RT-PCR.All SARS CoV2 and positive influenza A/B results arereported to [facility]. 07/23/2024 12:4 7 PM EST 07/23/2024 12:55 PM EST us Generic External Data Provider LAB MICROBIOLOGY - GENERAL ORDERABLES Final Result [facility] [address] [place] [address] [phone] * (ABNORMAL) CBC auto differential (07/23/2024 12:47 PM EST) White Blood Count 4.9 4.8 - 10.8 X10*3/uL [facility] Red Blood Count 4.20(L) 4.60 - 5.80 X10*6/uL [facility] Hemoglobin 12.5(L) 14.0 - 18.0 g/dl [facility] Hematocrit 37.2(L) 42.0 - 52.0 % [facility] Mean Corpuscular Volume 88.6 80.0 - 98.0 fL [facility] Mean Corpuscular Hemoglobin 29.8 27.0 - 33.0 pg [facility] Mean Corpuscular HGB Conc 33.6 31.0 - 36.0 g/dl [facility] Red Cell Distribution Width 12.4 11.0 - 16.0 % [facility] Platelet Count 178 160 - 400 X10*3/uL [facility] Mean Platelet Volume 9.9 9.4 - 12.4 fL [facility] Neutrophils Percent Auto 65.7 45 - 73 % [facility] Imm Gran Pct Auto 0.4 0.0 - 0.4 % [facility] Lymphocytes Percent Auto 26.1 20 - 40 % [facility] Monocytes Percent Auto 5.8 2 - 11 % [facility] Eosinophils Percent Auto 1.4 0 - 4 % [facility] Basophils Percent Auto 0.6 0 - 2 % [facility] NRBC Pct Auto 0.0 0.0 - 0.2 /100WBC [facility] Neutrophils Absolute Auto 3.2 2.0 - 8.3 x10*3/uL [facility] Imm Gran Abs Auto 0.02 0.00 - 0.03 X10*3/uL [facility] Lymphocytes Absolute Auto 1.3 1.2 - 4.9 X10*3/uL [facility] Monocytes Absolute Auto 0.3 0.1 - 1.2 X10*3/uL [facility] Eosinophils Absolute Auto 0.1 0.0 - 0.4 X10*3/uL [facility] Basophils Absolute Auto 0.0 0.0 - 0.2 X10*3/uL [facility] NRBC Abs Auto 0.000 0.0 - 0.012 X10*3/uL [facility] 07/23/2024 12:4 7 PM EST 07/23/2024 12:55 PM EST us Generic External Data Provider LAB BLOOD ORDERAB LES Final Result [facility] [address] [place] [phone] * (ABNORMAL) Prothrombin Time-INR (07/23/2024 12:47 PM EST) Prothrombin Time 13.9(H) 10.9 - 12.4 SEC [facility] INTERNATIONAL NORM RATIO 1.2(H) 0.9 - 1.1 [facility] Comment:INTERNATIONAL NORMAL IZED RATIO (INR) [...] ORDERAB LES Final Result Performing Organization Address [facility] Co de Phone Number [facility] [address] [place] [phone] * Magnesium (07/23/2024 12:47 PM EST) Magnesium 1.8 1.6 - 2.6 mg/dL [facility] 07/23/2024 12:4 7 PM EST 07/23/2024 12:55 PM EST us Generic External Data Provider LAB BLOOD ORDERAB LES Final Result Performing Organization Address [facility] Co de Phone Number [facility] [address] [place] [phone] * Lipase (07/23/2024 12:47 PM EST) Lipase 12 8 - 78 U/L [facility] 07/23/2024 12:4 7 PM EST 07/23/2024 12:55 PM EST us Generic External Data Provider LAB BLOOD ORDERAB LES Final Result Performing Organization Address [facility]/ZIP Co de Phone Number [facility] [address] [place] [phone] * (ABNORMAL) Comprehensive Metabolic Panel (07/23/2024 12:47 PM EST) Sodium 141 135 - 145 mmol/L [facility] Potassium 3.8 3.3 - 5.1 mmol/L [facility] Chloride 106 96 - 108 mmol/L [facility] Carbon Dioxide 29 22 - 29 mmol/L [facility] Anion Gap 10(L) 12 - 20 [facility] Urea Nitrogen (BUN) 14 9 - 16 mg/dL [facility] Creatinine, Serum 0.83 0.5 - 1.4 mg/dL [facility] Creatinine Clr Calc Pharmacy 102.6 [facility] Comment:eGFR (calculated fro m the MDRD study equation) and eCrCl(calculated from the Cockcroft-Gault equation) are based ondifferent parameters and may not yield comparable results.If eCrCl result is absurd, please check patient'sheight/weight. Estimated Glomerular Filt Rate >60 [facility] Comment:Chronic Kidney Disea se: Estimated GFR < 60 mL/min/1.93m6Ncssba Kidney Disease: Estimated GFR < 15 mL/min/1.73m2 Glucose 94 60 - 115 mg/dL [facility] Calcium 8.5 8.4 - 10.2 mg/dL [facility] Bilirubin, Total 0.5 0.0 - 1.0 mg/dL [facility] Aspartate Amino Transferase 21 5 - 37 U/L [facility] Alanine Aminotransferase 14 0 - 40 U/L [facility] Total Protein 6.8 6.5 - 8.0 g/dL [facility] Albumin Level 4.2 3.5 - 5.0 g/dL [facility] Alkaline Phosphatase 116 39 - 117 U/L [facility] 07/23/2024 12:4 7 PM EST 07/23/2024 12:55 PM EST us Generic External Data Provider LAB BLOOD ORDERAB LES Final Result [facility] [address] [place] [phone] [phone] * HIV-1/2 Antigen and Antibodies, Fourth Generation, with Reflexes (10/24/2023 10:26 AM EDT) HIV AB/AG Nonreactive Nonreactive [facility] Comment:HIV-1 p24 Ag and/or HIV-1/HIV-2 Ab not detected.A test result that is nonreactive does not exclude thepossibility of exposure to or infection with HIV-1 and/orHIV-2. Nonreactive results in this assay for individualswith prior exposure to HIV-1 and/or HIV-2 may be due toantigen and antibody levels that are below the limit ofdetection of this assay.The [employer] HIV Ag/Ab Combo assay result andsupplemental assay results should be interpreted inconjunction with the patient's clinical presentation,history and other laboratory results. If the results areinconsistent with clinical evidence, additional testing issuggested to confirm the result. Blood Venous blood specimen / Unknown 10/24/2023 10:26 AM EDT 10/24/2023 11:09 AM EDT us Zahraa Roca DO LAB BLOOD ORDERABLES Final R esult [facility] [address] [place] [phone] * (ABNORMAL) Lipid Panel, Standard (10/24/2023 10:26 AM EDT) Triglycerides 48 <150 mg/dL [facility] Comment:Desirable Triglyceri de: less than 150 mg/dLBorderline High Triglyceride 150-199 mg/dLHigh Triglyceride: 200-499 mg/dLVery High Triglyceride: greater than or equal to 5OO mg/dL Cholesterol 174 <200 mg/dL [facility] Comment:Desirable Cholestero l: less than 200 mg/dLBorderline High Cholesterol: 200-239 mg/dLHigh Cholesterol: greater than 239 mg/dL LDL Cholesterol Calculated 113(H) <100 mg/dL [facility] Comment:Desirable LDL: less than 100 mg/dLNear Optimal/Above Optimal LDL: 110- 129 mg/dLBorderline High LDL: 130-159 mg/dLHigh LDL: 160-189 mg/dLVery High LDL: greater than or equal to 190 mg/dL HDL Cholesterol 52 >40 mg/dL [facility] Comment:Desirable HDL: great er than 40 mg/dL Note: This HDL assay may give artificially low results in patients with liver disease. Blood Venous blood specimen / Unknown 10/24/2023 10:26 AM EDT 10/24/2023 1:07 PM EDT Zahraa Roca DO LAB BLOOD ORDERABLES Final R esult Performing Organization Address [facility] Co de Phone Number [facility] [address] [place] [phone] * Colonoscopy (03/16/2023 9:43 AM EDT) Historical Provider HEALTH MAINTENANCE Final Result * Fecal Globin by Immunochemistry (07/13/2022 12:00 AM EST) Fecal Globin By Immunochemistry SEE NOTE [employer] Comment: ??FECAL GLOBIN BY IMMUNOCHEMISTRY ?Micro Number: ?[id number] ??Test Status: ? Final ??Specimen Source: ?? Insure (tm) fobt test card ??Specimen Quality: ??Adequate ??Fecal Globin: ?Not Detected 07/13/2022 07/28/2022 8:2 7 AM EST Zahraa Roca DO LAB BODY FLUIDS AND STOOLS O RDERABLES Final Result Performing Organization Address [facility] Co de Phone Number [facility] [address] [facility] [place] [address] [employer] [address] [facility], ([address]) [place] [address] from Last 3 Months or Most Recently Relevant to Health Maintenance Insurance [facility] STANDARD MEDICARE DENTAL-[facility] MEDICAID STAND ADULT Care Teams Marine Water Tender Relationship Specialty Start Date End Date Zahraa Roca DO [address] [place] [address] PCP - General Family Medicine 07/25/18 Christian Soria FNP [address] [place] [address] Nurse Practitioner Family Medicine 06/24/23
--- OUTSIDE RECORDS SUMMARY | 2024-10-05 10:43 | XMS_ITS | Encounter Summary ---
Author Organization [employer] Address [address] [facility] [employer] 7t [place] [address] Care Team Providers Care Emulsification Operator Name Role Phone Zahraa Roca DO Primary Care Provider + [phone] Christian Soria Unavailable Unavailable Reason for Visit * Reason Onset Date Comments PT-1 07/13/2024 Encounter Details Date Type Department Care Team ([facility] st Contact Info) Description 07/13/2024 Telephone [facility] MEDICINE [address] [place], [place] [phone] Zahraa Roca DO [address] [place], [place] [phone] PT-1 Social History Tobacco Use Types Packs/Day [...] Yes Provider name or facility name: [address] Escort needed: Y/N: No Do you have a wheelchair: Y/N: No If yes- Manual or electric: Visits: (3x monthly) Patient calling requesting PT1 Home Address verified: Y/N: Yes Provider name or facility name: [facility] Escort needed: Y/N: No Do you have a wheelchair: Y/N: No If yes- Manual or electric: Visits: (3x Monthly) documented in this encounter Plan of Treatment Upcoming Encounters Date Type Department Care Team (Late st Contact Info) Description 10/11/2024 10:30 AM EDT Clinical Support [facility] MEDICINE [address] [place] [address] Mere Rios, HENRIK documented as of this encounter Visit Diagnoses Not on filedocumented in this encounter Additional Health Concerns Assessment Noted Time PHQ-9 Depression Total Score: 0 11/28/19 24 11:23 AM EDT documented as of this encounter Care Teams Emulsification Operator Relationship Specialty Start Date End Date Zahraa Roca DO [address] [place] [address] PCP - General Family Medicine 07/25/18 Christian Soria FNP [address] [place] [address] Nurse Practitioner Family Medicine 06/24/23 documented as of this encounter
--- OUTSIDE RECORDS SUMMARY | 2024-10-05 10:43 | XMS_ITS | Encounter Summary ---
Author Organization [employer] Address [address] [place] [address] 7 [place] [address] Care Team Providers Care Csr Name Role Phone Zahraa Roca DO Primary Care Provider + [phone] Christian Soria Unavailable Unavailable Encounter Details Date Type Department Care Team (Late st Contact Info) Description 07/06/2022 Orders Only [facility] CHC MED & PEDS [address] [place] [address] Zahraa Andino LPN Social History Tobacco Use [...] Support [facility] MEDICINE 230 [place] [address] Mere Rios RN documented as of this encounter Visit Diagnoses Not on filedocumented in this encounter Care Teams Csr Relationship Specialty Start Date End Date Zahraa Roca DO [address] [place] [address] PCP - General Family Medicine 07/25/18 Christian Soria FNP [address] [place] [address] Nurse Practitioner Family Medicine 06/24/23 documented as of this encounter
--- OUTSIDE RECORDS SUMMARY | 2024-10-05 10:43 | XMS_ITS | Encounter Summary ---
Author Organization [employer] Address [address] [facility] [address] 7t [place] [address] Care Team Providers Care Greenhouse Worker Name Role Phone YudiZahraa barahona Primary Care Provider + [phone] Christian Soria Unavailable Unavailable Encounter Details Date [...] 10/11/2024 10:30 AM EDT Clinical Support [facility] MEDICINE [address] [place] [address] Mere Rios RN documented as of this encounter Visit Diagnoses Not on filedocumented in this encounter Additional Health Concerns Assessment Noted Time PHQ-9 Depression Total Score: 0 11/28/19 24 11:23 AM EDT documented as of this encounter Care Teams Greenhouse Worker Relationship Specialty Start Date End Date Zahraa Roca DO 230 [place] [address] PCP - General Family Medicine 07/25/18 Christian Soria FNP [address] [place] [address] Nurse Practitioner Family Medicine 06/24/23 documented as of this encounter
--- OUTSIDE RECORDS SUMMARY | 2024-10-05 10:43 | XMS_ITS | Encounter Summary ---
Author Organization [employer] Address [address] [place] [address] 7t [place] [address] Care Team Providers Care Diving Judge Name Role Phone SuryaZahraa lee Primary Care Provider + [phone] Christian Soria Unavailable Unavailable Reason for Visit * Reason Comments Med Refill Encounter Details Date Type Department Care Team (Late st Contact Info) Description 12/19/2022 Refill [facility] MEDICINE [address] [place], [place] [phone] Christian Soria FNP Anxiety Social History Tobacco [...] Description 10/11/2024 10:30 AM EDT Clinical Support [facility] MEDICINE [address] [place] [address] Mere Rios RN documented as of this encounter Visit Diagnoses Diagnosis Anxiety Anxiety state, unspecified documented in this encounter Additional Health Concerns Assessment Noted Time PHQ-9 Depression Total Score: 0 08/24/19 23 2:33 PM EST documented as of this encounter Care Teams Diving Judge Relationship Specialty Start Date End Date Zahraa Roca DO 230 [place] [address] PCP - General Family Medicine 07/25/18 Christian Soria FNP [address] [place] [address] Nurse Practitioner Family Medicine 06/24/23 documented as of this encounter
--- OUTSIDE RECORDS SUMMARY | 2024-10-05 10:43 | XMS_ITS | Encounter Summary ---
Author Organization [employer] Address [address] [place] [address] 7 [place] [address] Care Team Providers Care Boardmarker Name Role Phone Zahraa Roca DO Primary Care Provider + [phone] Christian Soria Unavailable Unavailable Reason for Visit * Reason Comments Med Refill Encounter Details Date Type Department Care Team (Late st Contact Info) Description 12/31/2022 Refill [facility] [address] [place] [phone] Christian Soria FNP Anxiety Social History Tobacco [...] 10:30 AM EDT Clinical Support [facility] [address] [place] [address] Mere Rios RN documented as of this encounter Visit Diagnoses Diagnosis Anxiety Anxiety state, unspecified documented in this encounter Additional Health Concerns Assessment Noted Time PHQ-9 Depression Total Score: 0 08/24/19 23 2:33 PM EST documented as of this encounter Care Teams Boardmarker Relationship Specialty Start Date End Date Zahraa Roca DO [address] [place] [address] PCP - General Family Medicine 07/25/18 Christian Soria FNP [address] [place] [address] Nurse Practitioner Family Medicine 06/24/23 documented as of this encounter
--- OUTSIDE RECORDS SUMMARY | 2024-10-05 10:43 | XMS_ITS | Encounter Summary ---
Author Organization [employer] Address [address] [facility] 7t [place] [address] Care Team Providers Care Edge Cutter Name Role Phone Zahraa Roca DO Primary Care Provider + [phone] Christian Soria Unavailable Unavailable Reason for Visit * Reason Onset Date Comments Recall Letter 09/21/2024 Recall Letter se nt 09/21/24. Encounter Details Date Type Department Care Team ([facility] Contact Info) Description 09/21/2024 Telephone [facility] MEDICINE [address] [place], [place] [phone] Zahraa Roca DO [address] [place], [place] [phone] Recall Letter (Recall Letter sent 09/21/24.) Social [...] Description 10/11/2024 10:30 AM EDT Clinical Support [facility] MEDICINE [address] [place] [address] Mere Rios RN documented as of this encounter Visit Diagnoses Not on filedocumented in this encounter Additional Health Concerns Assessment Noted Time PHQ-9 Depression Total Score: 0 11/28/19 24 11:23 AM EDT documented as of this encounter Care Teams Edge Cutter Relationship Specialty Start Date End Date Zahraa Roca DO [address] [place] [address] PCP - General Family Medicine 07/25/18 Christian Soria FNP [address] [place] [address] Nurse Practitioner Family Medicine 06/24/23 documented as of this encounter
--- OUTSIDE RECORDS SUMMARY | 2024-10-05 10:43 | XMS_ITS | Encounter Summary ---
Author Organization [employer] Address [address] [place] [address] 7 [place] [address] Care Team Providers Care Learning Consultant Name Role Phone Zahraa Roca DO Primary Care Provider + [phone] Christian Soria Unavailable Unavailable Encounter Details Date Type Department Care Team (Late st Contact Info) Description 08/12/2022 Orders Only [facility] CHC MED & PEDS [address] [place] [address] Zahraa Andino LPN Social History Tobacco Use [...] Description 10/11/2024 10:30 AM EDT Clinical Support [facility] MEDICINE [address] [place] [address] Mere Rios RN documented as of this encounter Visit Diagnoses Not on filedocumented in this encounter Care Teams Learning Consultant Relationship Specialty Start Date End Date Zahraa Roca DO [address] [place] [address] PCP - General Family Medicine 07/25/18 Christian Soria FNP [address] [place] [address] Nurse Practitioner Family Medicine 06/24/23 documented as of this encounter
--- OUTSIDE RECORDS SUMMARY | 2024-10-05 10:43 | XMS_ITS | Encounter Summary ---
Author Organization [employer] Address [address] [facility] 7t [place] [address] Care Team Providers Care Ferruler Name Role Phone Zahraa Roca DO Primary Care Provider + [phone] Christian Soria Unavailable Unavailable Reason for Visit * Reason Onset Date Comments Appointment Request 06/19/2024 Encounter Details Date Type Department Care Team ([facility] Contact Info) Description 06/19/2024 Telephone [facility] MEDICINE [address] [place], [place] [phone] Zahraa Roca DO [address] [place], [place] [phone] Appointment Request Social History Tobacco Use Types [...] Description 10/11/2024 10:30 AM EDT Clinical Support [facility] MEDICINE [address] [place] [address] Mere Rios RN documented as of this encounter Visit Diagnoses Not on filedocumented in this encounter Additional Health Concerns Assessment Noted Time PHQ-9 Depression Total Score: 0 11/28/19 11:23 AM EDT documented as of this encounter Care Teams Ferruler Relationship Specialty Start Date End Date Zahraa Roca DO [address] [place] [address] PCP - General Family Medicine 07/25/18 Christian Soria FNP [address] [place] [address] Nurse Practitioner Family Medicine 06/24/23 documented as of this encounter
--- OUTSIDE RECORDS SUMMARY | 2024-10-05 10:43 | XMS_ITS | Encounter Summary ---
Author Organization [employer] Address [address] [facility] 7t [place] [address] Care Team Providers Care Riverboat Captain Name Role Phone Zahraa Roca DO Primary Care Provider + [phone] Christian Soria Unavailable Unavailable Reason for Visit * Reason Onset Date Comments Appt question 08/09/2024 Encounter Details Date Type Department Care Team ([facility] st Contact Info) Description 08/09/[address] [facility] MEDICINE [address] [place], [place] [phone] Zahraa Roca DO [address] [place], [place] [phone] Appt question Social History Tobacco Use Types [...] aug appt its for that. Any questions [phone] documented in this encounter Plan of Treatment Upcoming Encounters Date Type Department Care Team (Late st Contact Info) Description 10/11/2024 10:30 AM EDT Clinical Support [facility] MEDICINE [address] [place] [address] Mere Rios RN documented as of this encounter Visit Diagnoses Not on filedocumented in this encounter Additional Health Concerns Assessment Noted Time PHQ-9 Depression Total Score: 0 11/28/19 24 11:23 AM EDT documented as of this encounter Care Teams Riverboat Captain Relationship Specialty Start Date End Date Zahraa Roca DO [address] [place] [address] PCP - General Family Medicine 07/25/18 Christian Soria FNP [address] [place] [address] Nurse Practitioner Family Medicine 06/24/23 documented as of this encounter
--- OUTSIDE RECORDS SUMMARY | 2024-10-05 10:43 | XMS_ITS | Encounter Summary ---
Author Organization [employer] Address [address] [facility] [address] 7t [place] [address] Care Team Providers Care Senior Research Scientist Name Role Phone Zahraa Roca DO Primary Care Provider + [phone] Christian Soria Unavailable Unavailable Encounter Details Date Type Department Care Team (Late st Contact Info) Description 04/17/2024 Telephone [facility] [address] [place], [place] [phone] Lore Vargas DDS 230 [place] [address] Social History Tobacco Use Types Packs/Day Years [...] 10/11/2024 10:30 AM EDT Clinical Support [facility] [address] [place] [address] Mere Rios RN documented as of this encounter Visit Diagnoses Not on filedocumented in this encounter Additional Health Concerns Assessment Noted Time PHQ-9 Depression Total Score: 0 11/28/19 11:23 AM EDT documented as of this encounter Care Teams Senior Research Scientist Relationship Specialty Start Date End Date Zahraa Roca DO 230 [place] [address] PCP - General Family Medicine 07/25/18 Christian Soria FNP [address] [place] [address] Nurse Practitioner Family Medicine 06/24/23 documented as of this encounter
--- OUTSIDE RECORDS SUMMARY | 2024-10-05 10:43 | XMS_ITS | Encounter Summary ---
Author Organization [employer] Address [address] [facility] 7t [place] [address] Care Team Providers Care Haulage Engine Operator Name Role Phone Zahraa Roca DO Primary Care Provider + [phone] Christian Soria Unavailable Unavailable Reason for Visit * Reason Onset Date Comments Appointment Request 08/03/2024 Encounter Details Date Type Department Care Team ([facility] Contact Info) Description 08/03/2024 Telephone [facility] MEDICINE [address] [place], [place] [phone] Zahraa Roca DO [address] [place], [place] [phone] Appointment Request Social History Tobacco Use Types [...] missed appointment with dermatology. Contact pt at [phone] documented in this encounter Plan of Treatment Upcoming Encounters Date Type Department Care Team (Late st Contact Info) Description 10/11/2024 10:30 AM EDT Clinical Support [facility] MEDICINE [address] [place] [address] Mere Rios RN documented as of this encounter Visit Diagnoses Not on filedocumented in this encounter Additional Health Concerns Assessment Noted Time PHQ-9 Depression Total Score: 0 11/28/19 24 11:23 AM EDT documented as of this encounter Care Teams Haulage Engine Operator Relationship Specialty Start Date End Date Zahraa Roca DO [address] [place] [address] PCP - General Family Medicine 07/25/18 Christian Soria FNP [address] [place] [address] Nurse Practitioner Family Medicine 06/24/23 documented as of this encounter
--- OUTSIDE RECORDS SUMMARY | 2024-10-05 10:43 | XMS_ITS | Encounter Summary ---
Author Organization [employer] Address [address] [facility] 7t [place] [address] Care Team Providers Care Exerciser Horse Name Role Phone Zahraa Roca DO Primary Care Provider + [phone] Christian Soria Unavailable Unavailable Reason for Visit * Reason Onset Date Comments PT-1 10/02/2024 Encounter Details Date Type Department Care Team ([facility] st Contact Info) Description 10/02/2024 Telephone [facility] MEDICINE [address] [place], [place] [phone] Zahraa Roca DO [address] [place], [place] [phone] PT-1 Social History Tobacco Use Types Packs/Day [...] Y/N: Yes Provider name or facility name: [facility] [address] [address] Escort needed: Y/N: No Do you have a wheelchair: Y/N: No If yes- Manual or electric: Visits: (7 Days x Weekly) documented in this encounter Plan of Treatment Upcoming Encounters Date Type Department Care Team (Late st Contact Info) Description 10/11/2024 10:30 AM EDT Clinical Support [facility] MEDICINE [address] [place] [address] Mere Rios RN documented as of this encounter Visit Diagnoses Not on filedocumented in this encounter Additional Health Concerns Assessment Noted Time PHQ-9 Depression Total Score: 0 11/28/19 11:23 AM EDT documented as of this encounter Care Teams Exerciser Horse Relationship Specialty Start Date End Date Zahraa Roca DO [address] [place] [address] PCP - General Family Medicine 07/25/18 Christian Soria FNP [address] [place] [address] Nurse Practitioner Family Medicine 06/24/23 documented as of this encounter
--- OUTSIDE RECORDS SUMMARY | 2024-10-05 10:43 | XMS_ITS | Encounter Summary ---
Author Organization [employer] Address [address] [facility] 7t [place] [address] Care Team Providers Care Rabbit Dresser Name Role Phone Zahraa Roca DO Primary Care Provider + [phone] Christian Soria Unavailable Unavailable Reason for Visit * Reason Comments Care Coordination CHW outreach for SDO H PT-1 - LVM Encounter Details Date Type Department Care Team (Latest Contact Info) Description 10/02/2024 Patient Outreach [facility] MEDICINE [address] [place] [address] Zahraa Roca DO 230 [place] [address] Care Coordination (CHW outreach for SDOH PT-1 [...] Wednesdays, and Walk-In Urgent Care Located in [facility]. Patient provided with after-hours line for [facility], , which offer night time triage service and option to transfer to television director provider if needed. documented in this encounter Plan of Treatment Upcoming Encounters Date Type Department Care Team ([facility] st Contact Info) Description 10/11/2024 10:30 AM EDT Clinical Support [facility] MEDICINE [address] [place] [address] Blanca, Mere, RN documented as of this encounter Visit Diagnoses Not on filedocumented in this encounter Additional Health Concerns Assessment Noted Time PHQ-9 Depression Total Score: 0 11/28/19 24 11:23 AM EDT documented as of this encounter Care Teams Rabbit Dresser Relationship Specialty Start Date End Date Zahraa Roca DO 230 [place] [address] PCP - General Family Medicine 07/25/18 Christian Soria FNP [address] [place] [address] Nurse Practitioner Family Medicine 06/24/23 documented as of this encounter
--- OUTSIDE RECORDS SUMMARY | 2024-10-05 10:43 | XMS_ITS | Encounter Summary ---
Author Organization [employer] Address [address] [facility] 7t [place] [address] Care Team Providers Care Digital Forensics Investigator Name Role Phone SuryaZahraa lee Primary Care Provider + [phone] Christian Soria Unavailable Unavailable Reason for Visit * Reason Onset Date Comments Med Refill 09/12/2024 Encounter Details Date Type Department Care Team ([facility] st Contact Info) Description 09/12/2024 Refill [facility] MEDICINE 230 [place] [address] Mere Rios RN Anxiety Social History Tobacco [...] - 09/12/2024 10:03 AM EST Pt had DIRECTOR IMAGING Initial appt today, Tier 1 UTOX Neg BZO, sent out for confirmation Pt had 2 Clonazepam remaining, anticipated 4. States he thinks 2 are under his dresser still. He attends methadone clinic in [place]. documented in this encounter Plan of Treatment Upcoming Encounters Date Type Department Care Team (Late st Contact Info) Description 10/11/2024 10:30 AM EDT Clinical Support [facility] MEDICINE 230 [place] [address] Mere Rios, HENRIK documented as of this encounter Visit Diagnoses Diagnosis Anxiety Anxiety state, unspecified documented in this encounter Additional Health Concerns Assessment Noted Time PHQ-9 Depression Total Score: 0 11/28/19 24 11:23 AM EDT documented as of this encounter Care Teams Digital Forensics Investigator Relationship Specialty Start Date End Date Zahraa Roca DO 230 [place] [address] PCP - General Family Medicine 07/25/18 Christian Soria FNP [address] [place] [address] Nurse Practitioner Family Medicine 06/24/23 documented as of this encounter
--- OUTSIDE RECORDS SUMMARY | 2024-10-05 10:44 | XMS_ITS | Encounter Summary ---
Author Organization [employer] Address [address] [place] [address] 7t [place] [address] Care Team Providers Care Biofuels Production Manager Name Role Phone Zahraa Roca DO Primary Care Provider + [phone] Christian Soria Unavailable Unavailable Encounter Details Date Type Department Care Team (Late Contact Info) Description 09/20/2022 Orders Only [facility] CHC MED & PEDS [address] [place] [address] Zahraa Andino LPN Social History Tobacco Use [...] Support [facility] MEDICINE 230 [place] [address] Mere Rios RN documented as of this encounter Visit Diagnoses Not on filedocumented in this encounter Additional Health Concerns Assessment Noted Time PHQ-9 Depression Total Score: 0 08/24/19 23 2:33 PM EST documented as of this encounter Care Teams Biofuels Production Manager Relationship Specialty Start Date End Date Zahraa Roca DO [address] [place] [address] PCP - General Family Medicine 07/25/18 Christian Soria FNP [address] [place] [address] Nurse Practitioner Family Medicine 06/24/23 documented as of this encounter
--- OUTSIDE RECORDS SUMMARY | 2024-10-05 10:44 | XMS_ITS | Encounter Summary ---
Author Organization [employer] Address [address] [facility] 7t [place] [address] Care Team Providers Care Coil Inspector Name Role Phone Zahraa Roca DO Primary Care Provider + [phone] Christian Soria Unavailable Unavailable Reason for Visit * Reason Comments Transition Of Care (Tcm) Encounter Details Date Type Department Care Team ([facility] st Contact Info) Description 09/17/2024 Patient Outreach [facility] MEDICINE 230 [place], [place] [phone] Zahraa Roca DO 230 [place] [address] Transition Of Care (Tcm) Social History Tobacco [...] AM EST Transition of Care Note Cristobal Monae Kyarawillow is going through a recent transition of care. * Yanira Payne RN - 09/17/2024 10:17 AM EST Hospital Discharges and Admission for [facility] Type of Visit: Emergency Department Date of Admission/Visit: 09/15/24 Date of Discharge: 09/15/24 Facility[facility] Diagnosis: Viral upper respiratory infection, Costochondritis Disposition: Discharged Home Follow-Up Actions Follow-Up Needed: None/self-monitoring Follow-Up Outcome: Left Voicemail (VM full) Initial Contact Date: 09/17/24 Patient Contacted: Unable to leave message, full Patient Status: unknown, RN was unable to speak to patient The full discharge summary is Is available under media scanned document Review Flowsheet [facility] Transition of Care Documentation Type of Visit Date of Admission/Visit Date of Discharge Facility Diagnosis Disposition 07/29/2023 9:58 AM Hospital Admission 07/26/2023 07/28/2023 [facility] S/P total left hip arthroplastyDischarged Home 07/24/2024 12:50 PM Emergency Department 07/23/2024 07/23/2024 [facility] R foot pain Discharged Home 07/26/2024 9:00 AM Emergency Department 07/23/2024 07/23/2024 [facility] Peripheral Vascular Disease and Venous insufficiency Discharged Home 09/17/2024 10:17 AM Emergency Department 09/15/2024 09/15/2024 [facility] Viral upper respiratory infection, Costochondritis Discharged Home Recent Visits Date Type Provider Dept 06/06/24 Office Visit Zahraa Roca DO [facility] Medicine 03/12/24 Office Visit Zahraa Roca DO [facility] Medicine 10/19/23 Office Visit Zahraa Roca DO [facility] Medicine Showing recent visits within past [...] Description 10/11/2024 10:30 AM EDT Clinical Support [facility] MEDICINE [address] [place] [address] Mere Rios, HENRIK documented as of this encounter Visit Diagnoses Not on filedocumented in this encounter Additional Health Concerns Assessment Noted Time PHQ-9 Depression Total Score: 0 11/28/19 11:23 AM EDT documented as of this encounter Care Teams Coil Inspector Relationship Specialty Start Date End Date Zahraa Roca DO 230 [place] [address] PCP - General Family Medicine 07/25/18 Christian Soria FNP 230 [place] [address] Nurse Practitioner Family Medicine 06/24/23 documented as of this encounter
--- OUTSIDE RECORDS SUMMARY | 2024-10-05 10:44 | XMS_ITS | Encounter Summary ---
Author Organization [employer] Address [address] [place] [address] 7 [place] [address] Care Team Providers Care Product Support Engineer Name Role Phone Zahraa Roca DO Primary Care Provider + [phone] Christian Soria Unavailable Unavailable Encounter Details Date Type Department Care Team (Late st Contact Info) Description 08/31/2022 Abstract [facility] MEDICINE [address] [place] [address] Zahraa Roca DO [address] [place] [address] Social History Tobacco Use Types Packs/Day Years [...] Description 10/11/2024 10:30 AM EDT Clinical Support [facility] [address] [place] [address] Mere Rios RN documented as of this encounter Visit Diagnoses Not on filedocumented in this encounter Additional Health Concerns Assessment Noted Time PHQ-9 Depression Total Score: 0 08/24/19 23 2:33 PM EST documented as of this encounter Care Teams Product Support Engineer Relationship Specialty Start Date End Date Zahraa Roca DO 230 [place] [address] PCP - General Family Medicine 07/25/18 Christian Soria FNP [address] [place] [address] Nurse Practitioner Family Medicine 06/24/23 documented as of this encounter
--- OUTSIDE RECORDS SUMMARY | 2024-10-05 10:44 | XMS_ITS | Encounter Summary ---
Author Organization [employer] Address [address] [place] [address] 7t [place] [address] Care Team Providers Care Nurse Wound Name Role Phone Zahraa Roca DO Primary Care Provider + [phone] Christian Soria Unavailable Unavailable Encounter Details Date Type Department Care Team (Late Contact Info) Description 10/21/2022 Orders Only [facility] MED & PEDS [address] [place] [address] Zahraa Andino LPN Social History Tobacco Use [...] 10/11/2024 10:30 AM EDT Clinical Support [facility] MEDICINE 230 [place] [address] Mere Rios RN documented as of this encounter Visit Diagnoses Not on filedocumented in this encounter Additional Health Concerns Assessment Noted Time PHQ-9 Depression Total Score: 0 08/24/19 23 2:33 PM EST documented as of this encounter Care Teams Nurse Wound Relationship Specialty Start Date End Date Zahraa Roca DO 230 [place] [address] PCP - General Family Medicine 07/25/18 Christian Soria FNP [address] [place] [address] Nurse Practitioner Family Medicine 06/24/23 documented as of this encounter
--- OUTSIDE RECORDS SUMMARY | 2024-10-05 10:44 | XMS_ITS | Encounter Summary ---
Author Organization [employer] Address [address] [facility] [address] [address] 7t [place] [address] Care Team Providers Care Academic Affairs Dean Name Role Phone AbelinoZahraa Primary Care Provider + [phone] Christian Soria Unavailable Unavailable Encounter Details Date Type Department Care Team (Late st Contact Info) Description 11/03/2023 Orders Only [facility] MEDICINE 230 [place], [place] [phone] ProviderHiral MD Social History Tobacco Use Types [...] [facility] 230 [place] [address] Mere Rios RN documented as of this [...] documented as of this encounter Care Teams Academic Affairs Dean Relationship Specialty Start Date End Date Zahraa Roca DO 230 [place] [address] PCP - General Family Medicine 07/25/18 Christian Soria FNP [address] [place] [address] Nurse Practitioner Family Medicine 06/24/23 documented as of this encounter
== END 2024-10-05 09:43 | disposition home or self-care (01) ==
LOC: HO.HHCX 09:42
PROVIDERS: Visit Provider Emergency Medicine
DX: M54.50 Low back pain, unspecified (principal); M79.18 Myalgia, other site; G89.29 Other chronic pain
CPT/HCPCS: 72100; 72170

== ENCOUNTER → 2024-10-05 09:43 | Outpatient (BNV) | payer MEDICARE, MEDICAID, SELFPAY | PROVIDERS: Visit Provider Radiology Diagnostic Radiology | DX: M54.50 Low back pain, unspecified (principal) | CPT/HCPCS: 72100; 72170 ==

== ENCOUNTER 2024-10-11 18:25 | Outpatient (REF) | payer MEDICARE, MEDICAID, SELFPAY ==
[2024-10-11 20:05] LABS: Oxycodone Screen Urine Positive (Not Detect)
[2024-10-16 11:29] LABS: Alphahydroxymidazolam,GCMS Ur NEGATIVE; Alphahydroxytriazolam, GCMS Ur NEGATIVE; Alprazolam, GCMS Urine NEGATIVE; Aminoclonazepam, GCMS Urine 66; Flurazepam Metabolite,GCMS Ur NEGATIVE; Lorazepam GCMS Urine NEGATIVE; Nordiazepam, GCMS Urine NEGATIVE; Oxazepam, GCMS Urine NEGATIVE; Temazepam, GCMS Urine NEGATIVE
== END 2024-10-11 18:26 | disposition home or self-care (01) ==
LOC: HO.HHCLNP 18:25
PROVIDERS: Visit Provider Family Medicine
DX: M54.59 Other low back pain (principal); G89.29 Other chronic pain
CPT/HCPCS: 80307; 80346

== ENCOUNTER → 2024-10-15 12:29 | Outpatient (BNV) | payer MEDICARE, MEDICAID, SELFPAY | PROVIDERS: PCP Family Medicine; Visit Provider Internal Medicine Cardiovascular Disease | DX: R94.31 Abnormal electrocardiogram [ECG] [EKG] (principal); Z01.810 Encounter for preprocedural cardiovascular examination | CPT/HCPCS: 93010 ==

== ENCOUNTER 2024-10-16 13:32 | Outpatient (REF) | payer MEDICARE, MEDICAID, SELFPAY ==
--- NOTE | ~2024-10-16 | XR_ITS ---
EXAMINATION: XR THORACIC SPINE CLINICAL INFORMATION: PAIN COMPARISON: June 24, 2009 is not available on PACS. TECHNIQUE: 3 views of the thoracic spine were obtained. FINDINGS: S-shaped curvature of the lower thoracic thoracolumbar junction. No acute cortical disruption or gross malalignment. Mild multilevel marginal osteophyte formation. No lytic or blastic lesions. XR/XR thoracic spine 2V IMPRESSION: Mild scoliosis, thoracolumbar junction. Mild multilevel thoracic spondylosis. Electronically signed by: Boris Sears MD 10/16/2024 02:19 PM EDT
--- OUTSIDE RECORDS SUMMARY | 2024-10-16 16:41 | XMS_ITS | Encounter Summary ---
Author Organization [employer] Address [address] [place] [address] Care Team Providers Care Primer Powder Blender Wet Name Role Phone Zahraa Roca DO Primary Care Provider + [phone] Christian Soria Unavailable Unavailable Reason for Visit * Reason Onset Date Comments PT-1 04/17/2024 Encounter Details Date Type Department Care Team ([facility] st Contact Info) Description 04/17/2024 Telephone [facility] MEDICINE [address] [place], [place] [phone] Zahraa Roca DO [address] [place], [place] [phone] PT-1 Social History Tobacco Use Types Packs/Day [...] Y/N: Yes Provider name or facility name: [facility] Facility Address: [address] [place] [id number] Escort needed: Y/N: No Do you have a wheelchair: Y/N: No If yes- Manual or electric: N/A Visits: Twice a month documented in this encounter Plan of Treatment Upcoming Encounters Date Type Department Care Team (Late st Contact Info) Description 11/13/2024 1:00 PM EDT Clinical Support [facility] MEDICINE [address] [place] [address] 11/23/2024 1:30 PM EDT Office Visit [facility] ADULT DENTAL [address] [place] [address] Cristian Finley DDS [address] [place] [address] 12/26/2024 9:00 AM EDT Office Visit [facility] ADULT DENTAL [address] [place] [address] Elis Arce documented as of this encounter Visit Diagnoses Not on filedocumented in this encounter Additional Health Concerns Assessment Noted Time PHQ-9 Depression Total Score: 0 11/28/19 24 11:23 AM EDT documented as of this encounter Care Teams Primer Powder Blender Wet Relationship Specialty Start Date End Date Zahraa Roca DO [address] [place] [address] PCP - General Family Medicine 07/25/18 Christian Soria FNP [address] [place] [address] Nurse Practitioner Family Medicine 06/24/23 documented as of this encounter
--- OUTSIDE RECORDS SUMMARY | 2024-10-16 16:41 | XMS_ITS | Clinical Summary ---
Author Organization [employer] Address [address] [facility] [address] [place] [address] Care Team Providers Care Account Executive Trainee Name Role Phone YudiZahraa barahona Primary Care Provider + [phone] Christian Soria Unavailable Unavailable Allergies No known active allergies Medications * This document contains information received from the source organization and may not represent a complete record from that organization. methadone (Dolophine) 10 MG/5ML solution Take 50 mg by mouth Once per day. Active naloxone (Narcan) 4 mg/0.1 mL nasal sprayIndicati ons:Anxiety Administer 1 spray (4 mg) into affected nostril(s) if needed for opioid reversal. May repeat every 2-3 minutes if needed, alternating nostrils, until medical assistance becomes available. 2 each 3 09/12/19 25 026 Active Blood Pressure kit 1 each 2 times daily. 1 kit 10/06/19 25 026 Active gabapentin (Neurontin) 300 MG capsule Take 1 capsule by mouth at bedtime. 10/08/19 25 Active clonazePAM (KlonoPIN) 1 MG tabletIndicat ions:Anxiety Take 1 tablet (1 mg) by mouth Once per day for 28 days. Do not start before October 15, 2024. 28 tablet 10/16/19 25 025 Active Multiple Vitamins-Mine rals (multivitamin with minerals) tablet TAKE 1 TABLET BY MOUTH EVERY DAY WITH FOOD 90 tablet 3 01/01/20 23 025 Discontinued(Me d list cleanup (will not trigger notification to Pharmacy)) acetaminophen (Tylenol 8 Hour) 650 MG ER tablet TAKE 1 TABLET BY MOUTH EVERY 6 HOURS NEEDED FOR MILD PAIN 100 tablet 2 03/18/20 23 025 Discontinued(Me d list cleanup (will not trigger notification to Pharmacy)) cyclobenzapri ne (Flexeril) 10 MG tabletIndicat ions:Chronic neck pain TAKE 1 TABLET BY MOUTH THREE TIMES DAILY NEEDED FOR MUSCLE SPASMS OR PAIN 60 tablet 3 07/13/20 23 025 Discontinued(Me d list cleanup (will not trigger notification to Pharmacy)) amitriptyline (Elavil) 75 MG tabletIndicat ions:Chronic neck pain TAKE 1 TABLET BY MOUTH EVERY DAY AT BEDTIME 30 tablet 3 12/16/19 24 025 Discontinued(Me d list cleanup (will not trigger notification to Pharmacy)) gabapentin (Neurontin) 600 MG tabletIndicat ions:Chronic neck pain TAKE 1 TABLET BY MOUTH EVERY MORNING 30 tablet 3 12/16/19 24 025 Discontinued(Me d list cleanup (will not trigger notification to Pharmacy)) ibuprofen 600 MG tablet Take 1 tablet (600 mg) by mouth every 6 (six) hours if needed for mild pain for up to 20 doses. 20 tablet 05/03/20 24 025 Discontinued(Me d list cleanup (will not trigger notification to Pharmacy)) acetaminophen (Tylenol) 500 MG tablet Take 1 tablet (500 mg) by mouth every 6 (six) hours if needed for mild pain for up to 20 doses. 20 tablet 05/03/20 24 025 Discontinued(Me d list cleanup (will not trigger notification to Pharmacy)) clonazePAM (KlonoPIN) 1 MG tabletIndicat ions:Anxiety Take 1 tablet (1 mg) by mouth Once per day for 28 days. Do not start before September 17, 2024. 28 tablet 09/17/19 25 025 Discontinued(Re order (will not trigger notification to Pharmacy)) Hospital, Clinic, or Other Facility Administered Medication Ordered Dose Route Frequency Start Date End Date Status ketorolac (Toradol) injection 30 mgIndications:Chronic left-sided low back pain without sciatica 30 mg IM Once 10/05/2024 10/05/2024 Ended Active Problems Problem Noted Date Diagnosed Date Status post left hip replacement 10/16/2024 Severe dental caries 05/03/2024 Excessive attrition of [...] any issues or concerns, he should contact [facility]. All his questions were answered. He agrees [...] Colon Cancer screening Hesitancy of micturition 11/01/2022 04/ Colon cancer screening 11/01/202202/28 Opioid dependence 04/05/2016 08/24/2022 Cocaine dependence 04/05/2016 3 Encounters * This document contains information received from the source organization and may not represent a complete record from that organization. Date Type Department Care Team Description 10/16/2024 11:45 AM EDT Office Visit [address] [address] Zahraa Roca DO Chronic bilateral low back pain, unspecified whether sciatica present (Primary Dx) 10/16/2024 Travel 10/15/2024 Orders Only GENERIC EXTERNAL DATA DEPARTMENT Provider, Generic External Data 10/11/2024 10:30 AM EDT Clinical Support [address] [address] eMre Rios RN Chronic left-sided low back pain without sciatica (Primary Dx) 10/11/2024 Orders Only [address] [address] Zahraa Roca DO 10/11/[address] [address] Mere Rios RN Anxiety 10/11/2024 Travel 10/10/2024 Orders Only [address] [address] Zahraa Roca DO 10/09/2024 Patient Outreach [address] [address] Zahraa Roca DO Care Coordination (CH[facility] outreach for SDOH PT-1 and food needs-referral completed /) 10/08/2024 Patient Outreach [address] [address] Zahraa Roca DO Transition Of Care (Tcm) (HDF- Rescheduled HDF appt) 10/08/2024 Patient Outreach [address] [address] Zahraa Roca DO Transition Of Care (Tcm) (HDF- scheduled and SDOH screening negative and Tobacco screening positive) 10/07/2024 Telephone [facility] [address] [place] [address] Renate Solorzano MD 10/05/2024 9:00 AM EDT Office Visit [facility] [address] [place] [address] Marcos Mckeon MD Chronic left-sided low back pain without sciatica (Primary Dx); Right buttock pain; Elevated blood pressure reading in office without diagnosis of hypertension 10/05/2024 Telephone [facility] [address] [place] [address] Marcos Mckeon MD 10/05/2024 Population Health Risk Score [facility] () Department [address] [place] [phone] Provider, Population Health Generic 10/05/2024 Travel 10/04/[address] [address] Zahraa Roca DO Nurse Triage 10/03/[address] [address] Zahraa Roca DO Appointment Request 10/02/2024 Patient Outreach [address] [address] Zahraa Roca DO Care Coordination (CHW outreach for SDOH PT-1 - LVM ) 10/02/[address] [address] Zahraa Roca DO PT-1 10/01/2024 Patient Outreach [address] [address] Zahraa Roca DO Care Coordination (CHW outreach for SDOH PT-1 and food needs-referral completed /) 10/01/[address] [address] Zahraa Roca DO PT-1 (/) 09/21/[address] [address] Zahraa Roca DO Recall Letter (Recall Letter sent 09/21/24.) 09/20/2024 Telephone [facility] [place] [address] Mere Rios, HENRIK UTOX confirmation Neg BZO 09/19/2024 Orders Only GENERIC EXTERNAL DATA DEPARTMENT Provider, Generic External Data 09/17/2024 Patient Outreach [facility] [place] [address] Zahraa Roca DO Transition Of Care (Tcm) 09/12/2024 9:30 AM EST Clinical Support [facility] MED[facility] [place], [place] [address] Mere Rios, HENRIK Anxiety (Primary Dx); Opioid dependence on agonist therapy (CMS/HCC) 09/12/2024 Telephone [facility] [place] [address] Zahraa Roca DO Patient message 09/12/2024 Telephone [facility] [place] [address] Mere Rios, HENRIK SLIP FEEDER Initial completed today; UTOX Neg BZO. sent out 09/12/2024 Refill [facility] [place] [address] Mere Rios RN Anxiety 09/12/2024 Travel 08/29/2024 Telephone [facility] [place] [address] Mere Rios, RN NCNS SLIP FEEDER Initial X1 08/29/2024 Telephone [facility] [place] [address] Mere Rios, HENRIK Recommend SLIP FEEDER Tier 1 08/20/2024 Refill [facility] [place] [address] Zahraa Roca DO Anxiety 08/09/2024 Telephone [facility] [place] [address] Zahraa Roca DO Appt question 08/08/2024 Telephone [facility] [place] [address] Zahraa Roca DO 08/03/2024 Telephone [facility] [place] [address] Zahraa Roca, DO Appointment Request 07/24/2024 Patient Outreach [facility] MED & PEDS [address] [place] [address] Zahraa Roca DO Transition Of Care (Tcm) 07/23/2024 Orders Only GENERIC EXTERNAL DATA DEPARTMENT Provider, Generic External Data from Last 3 Months Immunizations Name Administration Dates Next Due Hep A, Adult 07/06/2018,11/19/2010 Hep B, adult 10/09/2014, 4,02/11/2014,12/24/2010,11/20/19 11 Td (adult), unspecified 02/01/2000 Tdap 06/06/2024,05/14/2014 Zoster, Recombinant 03/29/2023,06/08/2022 Social History Tobacco Use Types Packs/Day Years Used Date Smoking Tobacco: Every Day Cigarettes Passive Smoke Exposure: Current Smokeless Tobacco: Current Tobacco Cessation:Ready to Q uit: Not Asked; Counseling Given: Not Answered Alcohol Use Standard Drinks/Week Comments Not Currently 0 (1 standard drink = 0.6 oz pur e alcohol) Depression Answer Date Recorded Patient Health Questionnaire-9 Score 16 10/16/2024 Patient Health Questionnaire-9 Score 16 10/16/2024 Last PHQ-9: Questionnaire Data Not on file 0 10/16/2024 Housing Stability Answer Date Recorded What is [...] got money to buy more: Never True 10/08/2024 Within the past 12 months,th e food you bought just didn't last and you didn't have enough money to get more: Never True Transportation Answer Date Recorded In the past 12 months, has l ack of transportation kept you from medical appts, meetings, work or from getting things needed for daily living? No 10/08/2024 Utilities Answer Date Recorded In the past 12 months, has t he electric, gas, oil or water company threatened to shut off services in your home? No 03/12/2024 Depression Answer Date Recorded Patient Health Questionnaire-2 Score 3 10/16/2024 Internet Access Answer Date Recorded Internet Access Q1 No 10/08/2024 Internet Access Q2 I cannot afford it 10/08/2024 Sex and Gender Information Value Date Recorded Sex Assigned at Male 08/17/2022 10:13 AM EST Legal Sex Male 8:35 PM EDT Gender Identity Male 08/17/2022 10:13 AM EST Sexual Orientation Straight 08/17/2022 10 :13 AM EST Last Filed Vital Signs Vital Sign Reading Time Taken Comments Blood Pressure 120/70 10/16/2024 3:07 PM EDT Pulse 50 10/16/2024 3:07 PM EDT Temperature 36.2 ??C (97.1 ??F) 10/16/2024 3:07 PM ED T Respiratory Rate 21 10/16/2024 3:07 PM EDT Oxygen Saturation 96% 10/16/2024 3:07 PM EDT Inhaled Oxygen Concentration - - Weight 81.6 kg (180 lb) 10/16/2024 3:07 PM EDT Height 177.8 cm (5' 10 ) 10/16/2024 3:07 PM EDT Body Mass Index 25.83 10/16/2024 3:07 PM EDT Plan of Treatment Upcoming Encounters Date Type Department Care Team (Late st Contact Info) Description 11/13/2024 1:00 PM EDT Clinical Support [facility] MEDICINE [address] [place] [address] 11/23/2024 1:30 PM EDT Office Visit [facility] ADULT DENTAL [address] [place] [address] Cristian Finley DDS [address] [place] [address] 12/26/2024 9:00 AM EDT Office Visit [facility] ADULT DENTAL [address] [place] [address] Elis Arce Health Maintenance Due Date Last Done Comments CT Colonography 1970 Dental Prophylaxis 1970 FIT DNA/Cologuard 1970 Sigmoidoscopy 1970 Pneumococcal Vaccine: 50+ Years (1 of 2 - PCV) 1987 FIT 07/13/2023 07/13/2022 FOBT 07/13/2023 07/13/2022 COVID-19 Vaccine ( season) 2024 Influenza Vaccine (#1) 2024 Dental Oral Exam 09/20/2024 03/19/2024 Dental X-Ray: Bitewings 03/20/2025 03/19/2024, 10/10 Depression Monitoring (PHQ-9) 04/18/2025 10/16/2024, 10/16/2024 SDOH Screening 10/08/2025 10/08/2024 Alcohol/Substance Use Screening 10/16/2025 10/16/2024 Depression Screening 10/16/2025 10/16/2024, 10/17/19 Tobacco Screening 10/16/2025 10/16/2024 Colonoscopy 03/16/2026 03/16/2023 Colorectal Cancer Screening 03/16/2026 Dental X-Ray: Full Mouth 03/20/2027 03/19/2024 Lipid Panel 10/23/2028 10/24/2023, 10/09/2020 DTaP/Tdap/Td Vaccines (3 - Td or Tdap) 06/06/2034 06/06/2024, 05/14/2014, 02/01/2000 RSV Patients and Patients Aged 60 years [...] Name Priority Date/Time Associated Diagnosis Comments XR THORACIC SPINE 2 VIEWS Routine 10/16/2024 1:36 PM EDT Chronic bilateral low back pain, unspecified whether sciatica present BASIC METABOLIC PANEL Routine 10/15/2024 12:57 PM EDT CBC Routine 10/15/2024 12:57 PM EDT POCT MARIO-14 URINE DRUG SCREEN Routine 10/11/2024 11:01 AM EDT Chronic left-sided low back pain without sciatica DRUG MONITORING, BENZODIAZEPINES, QUANTITATIVE, URINE Routine 10/11/2024 10:30 AM EDT OXYCODONE SCREEN, URINE Routine 10/12/19 10:30 AM EDT Chronic left-sided low back pain without sciatica XR PELVIS 1-2 VIEWS Routine 10/05/2024 9 :43 AM EDT Right buttock pain XR LUMBAR SPINE 2-3 VIEWS Routine 10/05/2024 9:43 AM EDT Chronic left-sided low back pain without sciatica GROSS AND MICROSCOPIC LEVEL 3 Routine 09/19/2024 9:00 AM EST POCT MARIO-14 URINE DRUG SCREEN Routine 09/12/2024 9:54 AM EST Opioid dependence on agonist therapy ([facility]) DRUG MONITORING, BENZODIAZEPINES, QUANTITATIVE, URINE Routine 09/12/2024 [...] Relevant to Health Maintenance Results * XR Thoracic Spine 2 Views (10/16/2024 1:36 PM EDT) Anatomical Region Laterality Modality Spine, T-spine Radiographic Nara ging 10/16/2024 1:36 PM EDT Narrative 10/16/2024 2:21 PM EDT ?[facility] ?[address] ?[place] [address] ?XRay Report ? Signed ? Patient: Szydlo,Cristobal J ?MR#: [id number] ?? 54 ? : 1970 ?Acct:[id number] ? Age/Sex: 54 / M ?ADM Date: 03/25/25 ? Loc: HO.HHCX ? Attending Dr: Zahraa Roca DO ? Ordering Physician: Zahraa Roca DO ?? Date of Service: 10/16/24 ?? Procedure(s): XR thoracic spine 2V ?? Accession Number(s): [id number] ? cc: Zahraa Roca DO ? EXAMINATION: ?? XR THORACIC SPINE ? CLINICAL INFORMATION: ?? PAIN ? COMPARISON: ?? June 24, 2009 is not available on PACS. ? TECHNIQUE: ?? 3 views of the thoracic spine were obtained. ? FINDINGS: ?? S-shaped curvature of the lower thoracic thoracolumbar junction. No ?? acute cortical disruption or gross malalignment. Mild multilevel ?? marginal osteophyte formation. No lytic or blastic lesions. ? XR/XR thoracic spine 2V ?? IMPRESSION: ?? Mild scoliosis, thoracolumbar junction. ?? Mild multilevel thoracic spondylosis. ? Electronically signed by: ??Boris Sears MD ??10/16/2024 02:19 PM ?? EDT RP ? Dictated By: ?Boris Lovett MD ? Signed By: ?<Electronically signed by Boris Bates MD in OV> ? 10/16/24 1419 ? DD/ 1336 ? TD/TT: 10/16/24 1400 ? Cattle Knocker: ? Procedure Note Aziza, Image - 10/16/[address] [address] XRay Report Signed Patient: Cristobal Enriquez JMR#: [id number] 54 : 1970Acct:[id number] Age/Sex: 54 / MADM Date: 10/16/24 Loc: HO.HHCX Attending Dr: Zahraa Roca DO Ordering Physician: Zahraa Roca DO Date of Service: 10/16/24 Procedure(s): XR thoracic spine 2V Accession Number(s): [id number] cc: Zahraa Roca DO EXAMINATION: XR THORACIC SPINE CLINICAL INFORMATION: PAIN COMPARISON: June 24, 2009 is not available on PACS. TECHNIQUE: 3 views of the thoracic spine were obtained. FINDINGS: S-shaped curvature of the lower thoracic thoracolumbar junction. No acute cortical disruption or gross malalignment. Mild multilevel marginal osteophyte formation. No lytic or blastic lesions. XR/XR thoracic spine 2V IMPRESSION: Mild scoliosis, thoracolumbar junction. Mild multilevel thoracic spondylosis. Electronically signed by: Boris Sears MD 10/16/2024 02:19 PM EDT RP Dictated By: Boris Lovett MD Signed By: <Electronically signed by Boris Bates MDin OV> 10/16/24 1419 DD/ 1336 TD/TT: 10/16/24 1400 Cattle Knocker: us Zahraa Roca DO IMG XR PROCEDURES Edited Res ult - Final * (ABNORMAL) CBC (10/15/2024 12:57 PM EDT) White Blood Count 7.6 4.8 - 10.8 X10*3/uL [facility] Red Blood Count 3.80(L) 4.60 - 5.80 X10*6/uL [facility] Hemoglobin 11.3(L) 14.0 - 18.0 g/dl [facility] Hematocrit 35.3(L) 42.0 - 52.0 % [facility] Mean Corpuscular Volume 92.9 80.0 - 98.0 fL [facility] Mean Corpuscular Hemoglobin 29.7 27.0 - 33.0 pg [facility] Mean Corpuscular HGB Conc 32.0 31.0 - 36.0 g/dl [facility] Red Cell Distribution Width 12.1 11.0 - 16.0 % [facility] Platelet Count 184 160 - 400 X10*3/uL [facility] Mean Platelet Volume 11.2 9.4 - 12.4 fL [facility] NRBC Pct Auto 0.0 0.0 - 0.2 /100WBC [facility] NRBC Abs Auto 0.000 0.0 - 0.012 X10*3/uL [facility] 10/15/2024 12:5 7 PM EDT 10/15/2024 12:57 PM EDT us Generic External Data Provider LAB BLOOD ORDERAB LES Final Result Performing Organization Address City/[facility]/ZIP Co de Phone Number [facility] [address] [place] [address] [phone] * (ABNORMAL) Basic Metabolic Panel (10/15/2024 12:57 PM EDT) Sodium 139 135 - 145 mmol/L [facility] Potassium 4.0 3.3 - 5.1 mmol/L [facility] Chloride 104 96 - 108 mmol/L [facility] Carbon Dioxide 30(H) 22 - 29 mmol/L [facility] Anion Gap 9(L) 12 - 20 [facility] Urea Nitrogen (BUN) 13 9 - 16 mg/dL [facility] Creatinine, Serum 0.79 0.5 - 1.4 mg/dL [facility] Creatinine Clr Calc Pharmacy 107.8 [facility] Comment:eGFR (calculated fro m the MDRD study equation) and eCrCl(calculated from the Cockcroft-Gault equation) are based ondifferent parameters and may not yield comparable results.If eCrCl result is absurd, please check patient'sheight/weight. Estimated Glomerular Filt Rate >60 [facility] Comment:Chronic Kidney Disea se: Estimated GFR < 60 mL/min/1.35i0Bhsknw Kidney Disease: Estimated GFR < 15 mL/min/1.73m2 Glucose 102 60 - 115 mg/dL [facility] Calcium 8.7 8.4 - 10.2 mg/dL [facility] 10/15/2024 12:5 7 PM EDT 10/15/2024 12:57 PM EDT us Generic External Data Provider LAB BLOOD ORDERAB LES Final Result [facility] [address] [place] [address] [phone] * (ABNORMAL) POCT MARIO-14 Urine Drug Screen (10/11/2024 11:01 AM EDT) Only the most recent of2 resultswithin the time period is included. THC Positive Benzodiazepines Screen, Urine Negative Methadone Screen, Urine Positive Oxycodone Screen, Urine Positive Urine Urine specimen obtained by clean catch procedure / Unknown 10/11/2024 11:01 AM EDT Mere Smalls RN - 10/11/2024 11:01 AM EDT UTOX cup Lot#[id number] Exp. 03/13/26 Internal Pass Control Zahraa Roca DO POINT OF CARE TEST ENTER/JOANNA T ORDERABLES Final Result * Drug Monitoring, Benzodiazepines, Quantitative, Urine (10/11/2024 10:30 AM EDT) Only the most recent of2 resultswithin the time period is included. Nordiazepam, GCMS Urine NEGATIVE [facility] Oxazepam, GCMD Urine NEGATIVE [facility] Lorazepam GCMS Urine NEGATIVE [facility] Alprazolam, GCMS Urine NEGATIVE [facility] Alphahydroxytriazolam , GCMS Ur NEGATIVE [facility] Temazepam, GCMS Urine NEGATIVE [facility] Alphahydroxymidazolam ,GCMS Ur NEGATIVE [facility] Aminoclonazepam, GCMS Urine 66 [facility] Comment:REFERENCE RANGE: <25 ng/mL Flurazepam Metabolite,GCMS Ur NEGATIVE [facility] Benzodiazepines Comments SEE NOTE [facility] Comment:This drug testing is for medical treatment only. Analysiswas performed as non-forensic testing and these resultsshould be used only by healthcare providers to renderdiagnosis or treatment, or to monitor progress of medicalconditions.Benzodiazepines Notes:Aminoclonazepam detected is consistent with the use of thedrug Clonazepam.LDT Notes:Confirmation tests were developed and their analyticalperformance characteristics have been determined by [employer]. It has not been cleared or approved by the FDA.This assay has been validated pursuant to the CLIAregulations and is used for clinical purposes.Healthcare Providers needing Interpretation assistance,please contact us at [phone] ( ) M-F,8am to 10pm ESTTHIS TEST PERFORMED AT:[facility] [employer] [address] [phone] DIRECTOR: SOCRATES MATHIAS MD 10/11/2024 10:3 0 AM EDT 10/11/2024 7:21 PM EDT Zahraa Roca LAB URINE ORDERABLES Final R esult Performing Organization Address [facility]/ZIP Co de Phone Number [facility] [address] [place] [phone] * (ABNORMAL) Oxycodone Screen, Urine (10/11/2024 10:30 AM EDT) Oxycodone Urine Screen Positive( A) Not Detect ng/mL [facility] Comment:Oxycodone cut-off is 100 ng/mL.Positive results are unconfirmed and should not be used fornon-medical purposes. Urine 10/11/2024 10:3 0 AM EDT 10/11/2024 7:25 PM EDT Zahraa Roca LAB URINE ORDERABLES Final R esult Performing Organization Address [facility]/ZIP Co de Phone Number [facility] [address] [place] [phone] * XR Pelvis 1-2 Views (10/05/2024 9:43 AM EDT) Anatomical Region Laterality Modality Body, Pelvis Radiographic Nara ging 10/05/2024 9:43 AM EDT Narrative 10/05/2024 12:22 PM EDT ?[facility] ?[address] ?[place] [address] ?XRay Report ? Signed ? Patient: Szydlo,Cristobal J ?MR#: [id number] ?? 54 ? : 1970 ?Acct:[id number] ? Age/Sex: 54 / M ?ADM Date: 10/05/24 ? Loc: HO.HHCX ? Attending Dr: Marcos Mckeon MD ? Ordering Physician: MARCOS MCKEON MD ?? Date of Service: 10/05/24 ?? Procedure(s): XR pelvis 1-2V ?? Accession Number(s): [id number] ? cc: MARCOS MCKEON MD ? EXAMINATION: ??XR PELVIS 1-2 VIEWS [...] DD/ 0943 ? TD/TT: 10/05/24 1000 ? Cattle Knocker: ? Procedure Note Aziza, Image - 10/05/2024 [facility] [address] [place] [address] XRay Report Signed Patient: Cristobal Enriquez JMR#: [id number] 54 : 1970Acct:[id number] Age/Sex: 54 / MADM Date: 10/05/24 Loc: HO.HHCX Attending Dr: Marcos Mckeon MD Ordering Physician: MARCOS MCKEON MD Date of Service: 10/05/24 Procedure(s): XR pelvis 1-2V Accession Number(s): [id number] cc: MARCOS MCKEON MD EXAMINATION: XR PELVIS 1-2 VIEWS HISTORY: [...] 10/05/24 1219 DD/ 0943 TD/TT: 10/05/24 1000 Cattle Knocker: us Marcos Mckeon MD IMG XR PROCEDURES Final Result * XR Lumbar Spine 2-3 Views (10/05/2024 9:43 AM EDT) Anatomical Region Laterality Modality Spine, L-spine Radiographic Nara ging 10/05/2024 9:43 AM EDT Narrative 10/05/2024 12:20 PM EDT ?[facility] ?[address] ?[place] [address] ?XRay Report ? Signed ? Patient: Cristobal Enriquez ?MR#: [id number] ?? 54 ? : 1970 ?Acct:[id number] ? Age/Sex: 54 / M ?ADM Date: 03/14/25 ? Loc: HO.HHCX ? Attending Dr: Marcos Mckeon MD ? Ordering Physician: MARCOS MCKEON MD ?? Date of Service: 10/05/24 ?? Procedure(s): XR lumbar spine 2-3V ?? Accession Number(s): [id number] ? cc: MARCOS MCKEON MD ? EXAMINATION: ?? XR LUMBOSACRAL SPINE [...] of L2-3 disc space with a central [id number] appearance. ?? Moderate loss at L1-2 and [...] Pickett MD ??10/05/2024 12:17 PM EDT RP ?? Workstation: [id number] ? Dictated By: ?Joao Pickett MD ? Signed By: ?<Electronically signed by Joao Pickett MD in OV> ?10/05/24 1217 ? DD/ 0943 ? TD/TT: 10/05/24 1000 ? Cattle Knocker: ? Procedure Note Denys Ervin - 10/05/[address] [address] XRay Report Signed Patient: Cristobal Enriquez JMR#: [id number] 54 : 1970Acct:[id number] Age/Sex: 54 / MADM Date: 10/05/24 Loc: HO.HHCX Attending Dr: Marcos Mckeon MD Ordering Physician: MARCOS MCKEON MD Date of Service: 10/05/24 Procedure(s): XR lumbar spine 2-3V Accession Number(s): [id number] cc: MARCOS MCKEON MD EXAMINATION: XR LUMBOSACRAL SPINE CLINICAL INFORMATION: [...] of L2-3 disc space with a central uova-ae-cfmx appearance. Moderate loss at L1-2 and L3-4 [...] 10/05/24 1217 DD/ 0943 TD/TT: 10/05/24 1000 Cattle Knocker: Marcos Mckeon MD IMG XR PROCEDURES Final Result * Gross and Microscopic Level 3 (09/19/2024 9:00 AM EST) 09/19/2024 9:00 AM EST 09/19/2024 12:05 PM EST Narrative [facility] - 09/20/2024 3:24 PM EST ----- ------- Name: Cristobal Enriquez ? Age/Sex: 54/M ? : 1970 Unit#: [id number] ?? Attend Dr: Sergei Christine MD ?Re09/19/24 ?Status: DEP REF ? Location: HO.LNP ?Disch: ? ----- ------- SPEC : [id number] ? RECD: 09/19/24-1204 ? STATUS: ??SOUT ? REQ NUM: [id number] ? NGA: 09/19/24-899 ? SUBM DR: Sergei Christine MD ? ENTERED: ??09/19/24-1208 ?SP TYPE: Surgical ? OTHR : Zahraa Roca DO ? ORDERED: ??Gross Micro [...] ? Age/Sex: 54/M ? : 1970 Unit#: [id number] ?? Attend Dr: Sergei Christine MD ?Re09/19/24 ?Status: DEP REF ? Location: HO.LNP ?Disch: ? ----- ------- SPEC : [id number] ? RECD: 09/19/24-1204 ? STATUS: ??SOUT ? REQ NUM: [id number] ? NGA: 09/19/24-09 ? SUBM DR: Sergei Christine MD ? ENTERED: ??09/19/24-1209 ?SP TYPE: Surgical ? OTHR DR: Zahraa Roca DO ? ORDERED: ??Gross Micro L3/2 ? Gross Description ?(Continued) CEDS This case was reviewed intradepartmentally. ??Results given to Dr. Christine by secure text by Dr. Naik on 09/20/24 at 3:22 pm. Copies To: ?? Zahraa Roca DO ?? [facility] ?? [address] ?? [place] [address] ?? [phone] ?? Sergei Christine MD ?? [facility] ?? [address] ?? [place] [address] ?? [phone] ?? [email or web address] ----- ------- Signed (signature on file) Lore Naik 09/20/24 1524 ? ----- ------- ? END OF REPORT ? us Generic External Data Provider LAB CYTOLOGY BRIAN SANCHEZ Final Result Performing Organization Address [facility]/State/ZIP Co de Phone Number [facility] [address] [place] [address] [phone] * XR Elbow 1-2 Views Right (08/15/2024 10:35 PM EST) Anatomical Region Laterality Modality Upper Extremities, Elbow Right Radiogr aphic Imaging 08/15/2024 10:3 5 PM EST Narrative 08/15/2024 10:37 PM EST ? [facility] ?[address] ?[place] [address] ?XRay Report ? Signed ? Patient: Cristobal Enriquez ?MR#: [id number] ?? 54 ? : 1970 ?Acct:[id number] ? Age/Sex: 54 / M ?ADM Date: 08/15/24 ? Loc: HO.US ? Attending Dr: Zamzam Richmond PA-C ? Ordering Physician: Sergei Christine MD ?? Date of Service: 08/15/24 ?? Procedure(s): XR elbow RT 2V ?? Accession Number(s): [id number] ? cc: Zahraa Roca DO; Sergei Christine [...] ? DD/ 34 ? TD/TT: 08/15/242234 ? Cattle Knocker: ? Procedure Note Aziza, Image - 08/15/[address] [address] XRay Report Signed Patient: Cristobal Enriquez JMR#: [id number] 54 : 1970Acct:[id number] Age/Sex: 54 / MADM Date: 08/15/24 Loc: . Attending Dr: Zamzam Richmond PA-C Ordering Physician: Sergei Christine MD Date of Service: 08/15/24 Procedure(s): XR elbow RT 2V Accession Number(s): [id number] cc: Zahraa Roca DO; Sergei Christine MD [...] in OV> 08/15/242235 DD/ 34 TD/TT: 08/15/242234 Cattle Knocker: [facility] External Provider IMG XR PROCEDURES Edited Result - Final * VAS US Lower Extremity Venous Insufficiency Bilateral (08/15/2024 8:40 AM EST) 08/15/2024 8:40 AM EST Narrative [facility] - 08/20/2024 7:43 AM EST ? [facility] ?[address] ?[place] [address] ? Ultrasound Report ? Signed ? Patient: Cristobal Enriquez ?MR#: [id number] ?? 54 ? : 1970 ?Acct:[id number] ? Age/Sex: 54 / M ?ADM Date: 08/15/24 ? Loc: HO.US ? Attending Dr: Zamzam Richmond PA-C ? Ordering Physician: Zamzam Richmond PA-C ?? Date of Service: 08/15/24 ?? Procedure(s): US venous insuf bilat ?? Accession Number(s): [id number] ? cc: Zahraa Roca DO; Zamzam Richmond [...] DD/ 0840 ? TD/TT: 08/15/24 0930 ? Cattle Knocker: ? Procedure Note Denys Ervin - 08/20/[address] [address] Ultrasound Report Signed Patient: Cristobal Enriquez JMR#: [id number] 54 : 1970Acct:[id number] Age/Sex: 54 / MADM Date: 08/15/24 Loc: HO.US Attending Dr: Zamzam Richmond PA-C Ordering Physician: Zamzam Richmond PA-C Date of Service: 08/15/24 Procedure(s): US venous insuf j[place] Accession Number(s): [id number] cc: Zahraa Roca DO; Zamzam Richmond PA-C [...] OV> 08/20/24 0740 DD/ 0840 TD/TT: 08/15/24 0978 Cattle Knocker: us [facility] External Provider CV VASC ULAR PROCEDURES Edited Result - Final [facility] [address] [place] [address] * US VENOUS DUPLEX LE RT (07/23/2024 5:16 PM EST) Anatomical Region Laterality Modality Abdomen Ultrasound 07/23/2024 5:16 PM EST Narrative 07/23/2024 5:17 PM EST ? [facility] ?[address] ?[place] [address] ? Ultrasound Report ? Signed ? Patient: Cristobal Enriquez ?MR#: [id number] ?? 54 ? : 1970 ?Acct:[id number] ? Age/Sex: 54 / M ?ADM Date: 07/23/24 ? Loc: HO.ED ? Attending Dr: ? Ordering Physician: Raul Almaguer ?? Date of Service: 07/23/24 ?? Procedure(s): US venous duplex LE RT ?? Accession Number(s): [id number] ? cc: Zahraa Roca DO; Raul Almaguer [...] signed by Gelacio Leone MD in OV> ?07/23/241716 ? DD/ 15 ? TD/TT: 07/23/241715 ? Cattle Knocker: ? Procedure Note Denys Ervin - 07/23/[address] [address] Ultrasound Report Signed Patient: Cristobal Enriquez R#: [id number] 54 : 1970Acct:[id number] Age/Sex: 54 / MADM Date: 07/23/24 Loc: HO.ED Attending Dr: Ordering Physician: Raul Almaguer Date of Service: 07/23/24 Procedure(s): US venous duplex LE RT Accession Number(s): [id number] cc: Zahraa Roca DO; Raul Almaguer CLINICAL [...] in OV> 07/23/241716 DD/ 15 TD/TT: 07/23/241715 Cattle Knocker: [facility] External Provider IMG US PROCEDURES Final Result * SARS-CoV-2 RNA, Influenza A/B, and RSV RNA, Ql NAAT (07/23/2024 12:47 PM EST) Influenza A PCR NEGATIVE Negative [facility] Influenza B PCR NEGATIVE Negative [facility] Resp Syncy Virus RNA Qual PCR NEGATIVE Negative [facility] SARS COV2 PCR NEGATIVE Negative [facility] Comment:All test results mus t [...] use by authorized laboratories.Testing performed on the [employer] GeneXpert utilizingreal-time RT-PCR.All SARS CoV2 and positive influenza A/B results arereported to [facility]. 07/23/2024 12:4 7 PM EST 07/23/2024 12:55 PM EST us Generic External Data Provider LAB MICROBIOLOGY - GENERAL ORDERABLES Final Result [facility] [address] [place] [address] [phone] * (ABNORMAL) CBC auto differential (07/23/2024 12:47 PM EST) White Blood Count 4.9 4.8 - 10.8 X10*3/uL [facility] Red Blood Count 4.20(L) 4.60 - 5.80 X10*6/uL [facility] Hemoglobin 12.5(L) 14.0 - 18.0 g/dl [facility] Hematocrit 37.2(L) 42.0 - 52.0 % [facility] Mean Corpuscular Volume 88.6 80.0 - 98.0 fL [facility] Mean Corpuscular Hemoglobin 29.8 27.0 - 33.0 pg [facility] Mean Corpuscular HGB Conc 33.6 31.0 - 36.0 g/dl [facility] Red Cell Distribution Width 12.4 11.0 - 16.0 % [facility] Platelet Count 178 160 - 400 X10*3/uL [facility] Mean Platelet Volume 9.9 9.4 - 12.4 fL [facility] Neutrophils Percent Auto 65.7 45 - 73 % [facility] Imm Gran Pct Auto 0.4 0.0 - 0.4 % [facility] Lymphocytes Percent Auto 26.1 20 - 40 % [facility] Monocytes Percent Auto 5.8 2 - 11 % [facility] Eosinophils Percent Auto 1.4 0 - 4 % [facility] Basophils Percent Auto 0.6 0 - 2 % [facility] NRBC Pct Auto 0.0 0.0 - 0.2 /100WBC [facility] Neutrophils Absolute Auto 3.2 2.0 - 8.3 x10*3/uL [facility] Imm Gran Abs Auto 0.02 0.00 - 0.03 X10*3/uL [facility] Lymphocytes Absolute Auto 1.3 1.2 - 4.9 X10*3/uL [facility] Monocytes Absolute Auto 0.3 0.1 - 1.2 X10*3/uL [facility] Eosinophils Absolute Auto 0.1 0.0 - 0.4 X10*3/uL [facility] Basophils Absolute Auto 0.0 0.0 - 0.2 X10*3/uL [facility] NRBC Abs Auto 0.000 0.0 - 0.012 X10*3/uL [facility] 07/23/2024 12:4 7 PM EST 07/23/2024 12:55 PM EST us Generic External Data Provider LAB BLOOD ORDERAB LES Final Result Performing Organization Address [facility] Co de Phone Number [facility] [address] [place] [phone] * (ABNORMAL) Prothrombin Time-INR (07/23/2024 12:47 PM EST) Prothrombin Time 13.9(H) 10.9 - 12.4 SEC [facility] INTERNATIONAL NORM RATIO 1.2(H) 0.9 - 1.1 [facility] Comment:INTERNATIONAL NORMAL IZED RATIO (INR) REFERENCE [...] ORDERAB LES Final Result Performing Organization Address [facility] Co de Phone Number [facility] [address] [place] [phone] * Magnesium (07/23/2024 12:47 PM EST) Pathologist [facility] Magnesium 1.8 1.6 - 2.6 mg/dL [facility] 07/23/2024 12:4 7 PM EST 07/23/2024 12:55 PM EST Generic External Data Provider LAB BLOOD ORDERAB LES Final Result [facility] [address] [place] [phone] * Lipase (07/23/2024 12:47 PM EST) Pathologist [facility] Lipase 12 8 - 78 U/L [facility] 07/23/2024 12:4 7 PM EST 07/23/2024 12:55 PM EST Generic External Data Provider LAB BLOOD ORDERAB LES Final Result Performing Organization Address City/[facility]/ZIP Co de Phone Number [facility] [address] [place] [phone] * (ABNORMAL) Comprehensive Metabolic Panel (07/23/2024 12:47 PM EST) [facility] Sodium 141 135 - 145 mmol/L [facility] Potassium 3.8 3.3 - 5.1 mmol/L [facility] Chloride 106 96 - 108 mmol/L [facility] Carbon Dioxide 29 22 - 29 mmol/L [facility] Anion Gap 10(L) 12 - 20 [facility] Urea Nitrogen (BUN) 14 9 - 16 mg/dL [facility] Creatinine, Serum 0.83 0.5 - 1.4 mg/dL [facility] Creatinine Clr Calc Pharmacy 102.6 [facility] Comment:eGFR (calculated fro m the MDRD study equation) and eCrCl(calculated from the Cockcroft-Gault equation) are based ondifferent parameters and may not yield comparable results.If eCrCl result is absurd, please check patient'sheight/weight. Estimated Glomerular Filt Rate >60 [facility] Comment:Chronic Kidney Disea se: Estimated GFR < 60 mL/min/1.26n5Axqjgq Kidney Disease: Estimated GFR < 15 mL/min/1.73m2 Glucose 94 60 - 115 mg/dL [facility] Calcium 8.5 8.4 - 10.2 mg/dL [facility] Bilirubin, Total 0.5 0.0 - 1.0 mg/dL [facility] Aspartate Amino Transferase 21 5 - 37 U/L [facility] Alanine Aminotransferase 14 0 - 40 U/L [facility] Total Protein 6.8 6.5 - 8.0 g/dL [facility] Albumin Level 4.2 3.5 - 5.0 g/dL [facility] Alkaline Phosphatase 116 39 - 117 U/L [facility] 07/23/2024 12:4 7 PM EST 07/23/2024 12:55 PM EST us Generic External Data Provider LAB BLOOD ORDERAB LES Final Result [facility] [address] [place] [phone] * HIV-1/2 Antigen and Antibodies, Fourth Generation, with Reflexes (10/24/2023 10:26 AM EDT) HIV AB/AG Nonreactive Nonreactive [facility] Comment:HIV-1 p24 Ag and/or HIV-1/HIV-2 Ab not detected.A test result that is nonreactive does not exclude thepossibility of exposure to or infection with HIV-1 and/orHIV-2. Nonreactive results in this assay for individualswith prior exposure to HIV-1 and/or HIV-2 may be due toantigen and antibody levels that are below the limit ofdetection of this assay.The [employer] HIV Ag/Ab Combo assay result andsupplemental assay results should be interpreted inconjunction with the patient's clinical presentation,history and other laboratory results. If the results areinconsistent with clinical evidence, additional testing issuggested to confirm the result. Blood Venous blood specimen / Unknown 10/24/2023 10:26 AM EDT 10/24/2023 11:09 AM EDT Zahraa Roca DO LAB BLOOD ORDERABLES Final R esult Performing Organization Address [facility] Co de Phone Number [facility] [address] [place] [phone] * (ABNORMAL) Lipid Panel, Standard (10/24/2023 10:26 AM EDT) Triglycerides 48 <150 mg/dL [facility] Comment:Desirable Triglyceri de: less than 150 mg/dLBorderline High Triglyceride 150-199 mg/dLHigh Triglyceride: 200-499 mg/dLVery High Triglyceride: greater than or equal to 5OO mg/dL Cholesterol 174 <200 mg/dL [facility] Comment:Desirable Cholestero l: less than 200 mg/dLBorderline High Cholesterol: 200-239 mg/dLHigh Cholesterol: greater than 239 mg/dL LDL Cholesterol Calculated 113(H) <100 mg/dL [facility] Comment:Desirable LDL: less than 100 mg/dLNear Optimal/Above Optimal LDL: 110- 129 mg/dLBorderline High LDL: 130-159 mg/dLHigh LDL: 160-189 mg/dLVery High LDL: greater than or equal to 190 mg/dL HDL Cholesterol 52 >40 mg/dL [facility] Comment:Desirable HDL: great er than 40 mg/dL Note: This HDL assay may give artificially low results in patients with liver disease. Blood Venous blood specimen / Unknown 10/24/2023 10:26 AM EDT 10/24/2023 1:07 PM EDT us Zahraa Roca DO LAB BLOOD ORDERABLES Final R esult Performing Organization Address [facility]/ZIP Co de Phone Number [facility] [address] [place] [phone] * Colonoscopy (03/16/2023 9:43 AM EDT) Historical Provider HEALTH MAINTENANCE Final Result * Fecal Globin by Immunochemistry (07/13/2022 12:00 AM EST) Fecal Globin By Immunochemistry SEE NOTE [facility] Comment: ??FECAL GLOBIN BY IMMUNOCHEMISTRY ?Micro Number: ?[id number] ??Test Status: ? Final ??Specimen Source: ?? Insure (tm) fobt test card ??Specimen Quality: ??Adequate ??Fecal Globin: ?Not Detected 07/13/2022 07/28/2022 8:2 7 AM EST Zahraa Roca DO LAB BODY FLUIDS AND STOOLS O RDERABLES Final Result [facility] [address], [place] [address] [email or web address] [address] [facility], ([address]) [place] [address] from Last 3 Months or Most Recently Relevant to Health Maintenance Insurance [facility] STANDARD MEDICARE D[facility]AL-[facility] MEDICAID STAND ADULT Member Subscriber Plan / Payer (Ef fective 2008-Present) Name:Cristobal Enriquez Relation to Subscriber:Self Name:Zoe Cristobal Monae Payer ID:Not on file Group ID:Not on file Type:Not on file Address: [place] [phone] Care Teams Account Executive Trainee Relationship Specialty Start Date End Date Zahraa Roca DO [facility] [place] [address] PCP - General Family Medicine 07/25/18 Christian Soria FNP [address] [place] [address] Nurse Practitioner Family Medicine 06/24/23
--- OUTSIDE RECORDS SUMMARY | 2024-10-16 16:41 | XMS_ITS | Encounter Summary ---
Author Organization [employer] Address [address] [place] [address] Care Team Providers Care Field Crop Technical Officer Name Role Phone YudiZahraa barahona Primary Care Provider + [phone] Christian Soria Unavailable Unavailable Encounter Details Date [...] Description 11/13/2024 1:00 PM EDT Clinical Support [facility] [address] [place] [address] 11/23/2024 1:30 PM EDT Office Visit [facility] [address] [place] [address] Cristian Finley DDS [address] [place] [address] 12/26/2024 9:00 AM EDT Office Visit [facility] [address] [place] [address] Elis Arce documented as of this encounter Visit Diagnoses Not on filedocumented in this encounter Additional Health Concerns Assessment Noted Time PHQ-9 Depression Total Score: 0 11/28/19 24 11:23 AM EDT documented as of this encounter Care Teams Field Crop Technical Officer Relationship Specialty Start Date End Date Zahraa Roca DO [address] [place] [phone] PCP - General Family Medicine 07/25/18 Christian Soria FNP [address] [place] [phone] Nurse Practitioner Family Medicine 06/24/23 documented as of this encounter
--- OUTSIDE RECORDS SUMMARY | 2024-10-16 16:41 | XMS_ITS | Encounter Summary ---
Author Organization [employer] Address [address] [facility] [address] [place] [address] Care Team Providers Care Icing Mixer Name Role Phone Zahraa Roca DO Primary Care Provider + [phone] Christian Soria Unavailable Unavailable Reason for Visit * Reason Onset Date Comments PT-1 03/15/2024 Encounter Details Date Type Department Care Team ([facility] st Contact Info) Description 03/15/2024 Telephone [facility] [address] [place], [place] [phone] Zahraa Roca DO [address] [place], [place] [phone] PT-1 Social History Tobacco Use Types Packs/Day [...] Y/N: Yes Provider name or facility name: [facility] Facility Address: [address] [place] [address] Escort needed: Y/N: No Do you have a wheelchair: Y/N: No If yes- Manual or electric: no Visits: 3 documented in this encounter Plan of Treatment Upcoming Encounters Date Type Department Care Team (Late st Contact Info) Description 11/13/2024 1:00 PM EDT Clinical Support [facility] [address] [place] [address] 11/23/2024 1:30 PM EDT Office Visit [facility] ADULT [facility] [address] [place] [address] Cristian Finley DDS [address] [place] [address] 12/26/2024 9:00 AM EDT Office Visit [facility] [address] [place] [address] Elis Arce documented as of this encounter Visit Diagnoses Not on filedocumented in this encounter Additional Health Concerns Assessment Noted Time PHQ-9 Depression Total Score: 0 11/28/19 24 11:23 AM EDT documented as of this encounter Care Teams Icing Mixer Relationship Specialty Start Date End Date Zahraa Roca DO [address] [place] [address] PCP - General Family Medicine 07/25/18 Christian Soria FNP [address] [place] [address] Nurse Practitioner Family Medicine 06/24/23 documented as of this encounter
--- OUTSIDE RECORDS SUMMARY | 2024-10-16 16:41 | XMS_ITS | Encounter Summary ---
Author Organization [employer] Address [address] 7t [place] [address] Care Team Providers Care Public Defender Name Role Phone Abelino Zahraa Primary Care Provider + [phone] Christian Soria Unavailable Unavailable Reason for Visit * Reason Comments Rectal Pain Encounter Details Date Type Department Care Team (Late st Contact Info) Description 10/05/2024 9:00 AM EDT Office Visit [facility] [address] [place] [address] Marcos Patrick MD [address] [place] [address] Chronic left-sided low back pain without sciatica [...] left lower back when he was admitted [facility] for pneumonia. No drainage, fever, chills. [...] hip replacement Opioid dependence on agonist therapy ([facility]) History of hepatitis C History of tobacco [...] Description 11/13/2024 1:00 PM EDT Clinical Support [facility] MED[facility] [address] [place] [address] 11/23/2024 1:30 PM EDT Office Visit [facility] ADULT DENTAL [address] [place] [address] Cristian Finley DDS [address] [place] [address] 12/26/2024 9:00 AM EDT Office Visit [facility] [address] [place] [address] Elis Arce documented as of this encounter Procedures Procedure [...] AM EDT Narrative 10/05/2024 12:22 PM EDT ?[facility] ?[address] ?[place] [address] ?XRay Report ? Signed ? Patient: Cristobal Enriquez J ?MR#: [id number] ?? 54 ? : 1970 ?Acct:[id number] ? Age/Sex: 54 / M ?ADM Date: 10/05/24 ? Loc: HO.HHCX ? Attending Dr: Marcos Patrick MD ? Ordering Physician: MARCOS PATRICK MD ?? Date of Service: 10/05/24 ?? Procedure(s): XR pelvis 1-2V ?? Accession Number(s): [id number] ? cc: MARCOS PATRICK MD ? EXAMINATION: [...] DD/ 0943 ? TD/TT: 10/05/24 1000 ? Management Trainee Program Stores: ? Procedure Note Denys Ervin - 10/05/[address] [address] XRay Report Signed Patient: Cristobal Enriquez JMR#: [id number] 54 : 1970Acct:[id number] Age/Sex: 54 / MADM Date: 10/05/24 Loc: HO.HHCX Attending Dr: Marcos Patrick MD Ordering Physician: MARCOS PATRICK MD Date of Service: 10/05/24 Procedure(s): XR pelvis 1-2V Accession Number(s): [id number] cc: MARCOS PATRICK MD EXAMINATION: XR PELVIS [...] 10/05/24 1219 DD/ 0943 TD/TT: 10/05/24 1000 Management Trainee Program Stores: us Marcos Patrick MD IMG XR PROCEDURES Final Result * XR Lumbar Spine 2-3 Views (10/05/2024 9:43 AM EDT) Anatomical Region Laterality Modality Spine, L-spine Radiographic Nara ging 10/05/2024 9:43 AM EDT Narrative 10/05/2024 12:20 PM EDT ?[facility] ?[address] ?[place] [address] ?XRay Report ? Signed ? Patient: Cristobal Enriquez ?MR#: [id number] ?? 54 ? : 1970 ?Acct:[id number] ? Age/Sex: 54 / M ?ADM Date: 03/14/25 ? Loc: HO.HHCX ? Attending Dr: Marcos Patrick MD ? Ordering Physician: MARCOS PATRICK MD ?? Date of Service: 10/05/24 ?? Procedure(s): XR lumbar spine 2-3V ?? Accession Number(s): [id number] ? cc: MARCOS PATRICK MD ? EXAMINATION: [...] of L2-3 disc space with a central cmzd-eg-ctyx appearance. ?? Moderate loss at L1-2 and [...] ??10/05/2024 12:17 PM EDT RP ?? Workstation: [id number] ? Dictated By: ?Joao Pickett MD ? Signed By: ?<Electronically signed by Joao Pickett MD in OV> ?10/05/24 1217 ? DD/ 0943 ? TD/TT: 10/05/24 1000 ? Management Trainee Program Stores: ? Procedure Note Denys Ervin - 10/05/2024 [facility] [address] [place] [address] XRay Report Signed Patient: Cristobal Enriquez JMR#: [id number] 54 : 1970Acct:[id number] Age/Sex: 54 / MADM Date: 10/05/24 Loc: HO.HHCX Attending Dr: Marcos Patrick MD Ordering Physician: MARCOS PATRICK MD Date of Service: 10/05/24 Procedure(s): XR lumbar spine 2-3V Accession Number(s): [id number] cc: MARCOS PATRICK MD EXAMINATION: XR LUMBOSACRAL [...] of L2-3 disc space with a central nskd-ev-iuob appearance. Moderate loss at L1-2 and L3-4 [...] 10/05/24 1217 DD/ 0943 TD/TT: 10/05/24 1000 Management Trainee Program Stores: Marcos Patrick MD IMG XR PROCEDURES Final [...] documented as of this encounter Care Teams Public Defender Relationship Specialty Start Date End Date Zahraa Roca DO [address] [place] [address] PCP - General Family Medicine 07/25/18 Christian Soria FNP [address] [place] [address] Nurse Practitioner Family Medicine 06/24/23 documented as of this encounter
--- OUTSIDE RECORDS SUMMARY | 2024-10-16 16:41 | XMS_ITS | Encounter Summary ---
Author Organization [employer] Address [address] [facility] 7t [place] [address] Care Team Providers Care Can Striper Name Role Phone Zahraa Roca DO Primary Care Provider + [phone] Christian Soria Unavailable Unavailable Reason for Visit * Reason Onset Date Comments PT1 01/03/2024 Encounter Details Date Type Department Care Team ([facility] st Contact Info) Description 01/03/2024 Telephone [facility] MEDICINE [address] [place], [place] [phone] Zahraa Roca DO [address] [place], [place] [phone] PT1 Social History Tobacco Use Types Packs/Day [...] or facility name: methadone clinic Facility Address: [address] [place] [address] Escort needed: Y/N: No Do you have a wheelchair: Y/N: No If yes- Manual or electric: none Visits: 7 days a week documented in this encounter Plan of Treatment Upcoming Encounters Date Type Department Care Team ([facility] Contact Info) Description 11/13/2024 1:00 PM EDT Clinical Support [facility] MEDICINE [address] [place] [address] 11/23/2024 1:30 PM EDT Office Visit [facility] ADULT DENTAL [address] [place] [address] Cristian Finley DDS [address] [place] [address] 12/26/2024 9:00 AM EDT Office Visit [facility] AD[facility] [address] [place] [address] Elis Arce documented as of this encounter Visit Diagnoses Not on filedocumented in this encounter Additional Health Concerns Assessment Noted Time PHQ-9 Depression Total Score: 0 11/28/19 24 11:23 AM EDT documented as of this encounter Care Teams Can Striper Relationship Specialty Start Date End Date Zahraa Roca DO [address] [place] [address] PCP - General Family Medicine 07/25/18 Christian Soria FNP [address] [place] [address] Nurse Practitioner Family Medicine 06/24/23 documented as of this encounter
--- OUTSIDE RECORDS SUMMARY | 2024-10-16 16:41 | XMS_ITS | Encounter Summary ---
Author Organization [employer] Address [address] 7t [place] [address] Care Team Providers Care Weaving Supervisor Name Role Phone Zahraa Roca DO Primary Care Provider + [phone] Christian Soria Unavailable Unavailable Encounter Details Date Type Department Care Team (Late st Contact Info) Description 04/17/2024 Telephone [facility] ADULT DENT[facility] [address] [place], [place] [phone] Lore Vargas DDS [address] [place] [address] Social History Tobacco Use Types Packs/Day Years [...] Description 11/13/2024 1:00 PM EDT Clinical Support [facility] [address] [place] [address] 11/23/2024 1:30 PM EDT Office Visit [facility]ULT [facility] [address] [place] [address] Cristian Finley DDS [address] [place] [address] 12/26/2024 9:00 AM EDT Office Visit [facility]ULT [facility] [address] [place] [address] Elis Arce documented as of this encounter Visit Diagnoses Not on filedocumented in this encounter Additional Health Concerns Assessment Noted Time PHQ-9 Depression Total Score: 0 05/06/20 24 11:23 AM EDT documented as of this encounter Care Teams Weaving Supervisor Relationship Specialty Start Date End Date Zahraa Roca DO [address] [place] [address] PCP - General Family Medicine 07/25/18 Christian Soria FNP [address] [place] [address] Nurse Practitioner Family Medicine 06/24/23 documented as of this encounter
--- OUTSIDE RECORDS SUMMARY | 2024-10-16 16:41 | XMS_ITS | Encounter Summary ---
Author Organization [employer] Address [address] [facility] 7t [place] [address] Care Team Providers Care Extension Worker Name Role Phone AbelinoZahraa Primary Care Provider + [phone] Christian Soria Unavailable Unavailable Encounter Details Date Type Department Care Team ([facility] st Contact Info) Description 10/05/2024 Population Health Risk Score [facility] () Department [address] [phone] Provider, Population Health Generic Social History Tobacco [...] Description 11/13/2024 1:00 PM EDT Clinical Support [facility] MEDICINE [address] [place] [address] 11/23/2024 1:30 PM EDT Office Visit [facility] ADULT DENTAL [address] [place] [address] Cristian Finley DDS [address] [place] [address] 12/26/2024 9:00 AM EDT Office Visit [facility] ADULT [facility] [address] [place] [address] Elis Arce documented as of this encounter Visit Diagnoses Not on filedocumented in this encounter Additional Health Concerns Assessment Noted Time PHQ-9 Depression Total Score: 0 11/28/19 24 11:23 AM EDT documented as of this encounter Care Teams Extension Worker Relationship Specialty Start Date End Date Zahraa Roca DO [address] [place] [address] PCP - General Family Medicine 07/25/18 Christian Soria FNP [address] [place] [address] Nurse Practitioner Family Medicine 06/24/23 documented as of this encounter
--- OUTSIDE RECORDS SUMMARY | 2024-10-16 16:41 | XMS_ITS | Encounter Summary ---
Author Organization [employer] Address [address] [facility] 7t [place] [address] Care Team Providers Care Adobe Ball Mixer Name Role Phone Zahraa Roca DO Primary Care Provider + [phone] Christian Soria Unavailable Unavailable Reason for Visit * Reason Onset Date Comments Nurse Triage 10/04/2024 Encounter Details Date Type Department Care Team ([facility] st Contact Info) Description 10/04/2024 Telephone [facility] MEDICINE [address] [place], [place] [phone] Zahraa Roca DO [address] [place], [place] [phone] Nurse Triage Social History Tobacco Use Types [...] Team appts. Available at time of call. [facility] Walk In Center hours and availability provided [...] caller accepted this outcome. Contact pt at [phone] documented in this encounter Plan of Treatment Upcoming Encounters Date Type Department Care Team (Late st Contact Info) Description 11/13/2024 1:00 PM EDT Clinical Support [facility] MEDICINE [address] [place] [address] 11/23/2024 1:30 PM EDT Office Visit [facility] ADULT DENTAL [address] [place] [address] Cristian Finley DDS [address] [place] [address] 12/26/2024 9:00 AM EDT Office Visit [facility] ADULT DENTAL [address] [place] [address] Elis Arce documented as of this encounter Visit Diagnoses Not on filedocumented in this encounter Additional Health Concerns Assessment Noted Time PHQ-9 Depression Total Score: 0 11/28/19 24 11:23 AM EDT documented as of this encounter Care Teams Adobe Ball Mixer Relationship Specialty Start Date End Date Zahraa Roca DO [address] [place] [address] PCP - General Family Medicine 07/25/18 Christian Soria FNP [address] [place] [address] Nurse Practitioner Family Medicine 06/24/23 documented as of this encounter
--- OUTSIDE RECORDS SUMMARY | 2024-10-16 16:42 | XMS_ITS | Encounter Summary ---
Author Organization [employer] Address [address] [facility] 7t [place] [address] Care Team Providers Care Inclinometer Tester Name Role Phone Zahraa Roca DO Primary Care Provider + [phone] Christian Soria Unavailable Unavailable Reason for Visit * Reason Onset Date Comments Appointment Request 06/19/2024 Encounter Details Date Type Department Care Team ([facility] Contact Info) Description 06/19/2024 Telephone [facility] MEDICINE [address] [place], [place] [phone] Zahraa Roca DO [address] [place], [place] [phone] Appointment Request Social History Tobacco Use Types [...] Support [facility] [address] [place] [address] 11/23/2024 1:30 PM EDT Office Visit [facility] ADULT DENT[facility] [address] [place] [address] Cristian Finley DDS [address] [place] [address] 12/26/2024 9:00 AM EDT Office Visit [facility] ADULT DENTAL [address] [place] [address] Elis Arec documented as of this encounter Visit Diagnoses Not on filedocumented in this encounter Additional Health Concerns Assessment Noted Time PHQ-9 Depression Total Score: 0 11/28/19 24 11:23 AM EDT documented as of this encounter Care Teams Inclinometer Tester Relationship Specialty Start Date End Date Zahraa Roca DO [address] [place] [address] PCP - General Family Medicine 07/25/18 Christian Soria FNP [address] [place] [address] Nurse Practitioner Family Medicine 06/24/23 documented as of this encounter
--- OUTSIDE RECORDS SUMMARY | 2024-10-16 16:42 | XMS_ITS | Encounter Summary ---
Author Organization [employer] Address [address] [facility] 7t [place] [address] Care Team Providers Care Smooth And Burr Worker Composites Name Role Phone Zahraa Roca DO Primary Care Provider + [phone] Christian Soria Unavailable Unavailable Encounter Details Date Type Department Care Team (Late st Contact Info) Description 09/20/2022 Orders Only [facility] MED & PEDS [address] [place] [address] Zahraa Andino LPN Social History Tobacco Use [...] Description 11/13/2024 1:00 PM EDT Clinical Support [facility] MEDICINE [address] [place] [address] 11/23/2024 1:30 PM EDT Office Visit [facility] ADULT DENTAL [address] [place] [address] Cristian Finley DDS [address] [place] [address] 12/26/2024 9:00 AM EDT Office Visit [facility] ADULT DENTAL [address] [place], [place] [phone] Elis Arce documented as of this encounter Visit Diagnoses Not on filedocumented in this encounter Additional Health Concerns Assessment Noted Time PHQ-9 Depression Total Score: 0 08/24/19 23 2:33 PM EST documented as of this encounter Care Teams Smooth And Burr Worker Composites Relationship Specialty Start Date End Date Zahraa Roca DO [address] [place], [place] [phone] PCP - General Family Medicine 07/25/18 Christian Soria FNP [address] [place] [address] Nurse Practitioner Family Medicine 06/24/23 documented as of this encounter
--- OUTSIDE RECORDS SUMMARY | 2024-10-16 16:42 | XMS_ITS | Encounter Summary ---
Author Organization [employer] Address [address] [facility] [address] [address] 7t [place] [address] Care Team Providers Care Wafer Fab Operator Name Role Phone YudiZahraa barahona Primary Care Provider + [phone] Christian Soria Unavailable Unavailable Encounter Details Date Type Department Care Team (Late st Contact Info) Description 11/03/2023 Orders Only [facility] MEDICINE [address] [place], [place] [phone] ProviderHiral MD Social History Tobacco Use Types [...] Description 11/13/2024 1:00 PM EDT Clinical Support [facility] MEDICINE [address] [place] [address] 11/23/2024 1:30 PM EDT Office Visit [facility] ADULT DENTAL [address] [place] [address] Cristian Finley DDS [address] [place] [address] 12/26/2024 9:00 AM EDT Office Visit [facility] ADULT DENTAL [address] [place] [address] Elis Arce documented as of this encounter Procedures Procedure Name Priority Date/Time Associated Diagnosis Comments HM COLONOSCOPY Routine 03/16/2023 9:43 AM EDT documented in this encounter Results * Hm Colonoscopy (03/16/2023 9:43 AM EDT) Historical Provider HEALTH MAINTENANCE Final Result documented in this encounter Visit Diagnoses Not on filedocumented in this encounter Additional Health Concerns Assessment Noted Time PHQ-9 Depression Total Score: 0 09/26/19 24 11:23 AM EST documented as of this encounter Care Teams Wafer Fab Operator Relationship Specialty Start Date End Date Zahraa Roca DO [address] [place] [address] PCP - General Family Medicine 07/25/18 Christian Soria FNP [address] [place] [address] Nurse Practitioner Family Medicine 06/24/23 documented as of this encounter
--- OUTSIDE RECORDS SUMMARY | 2024-10-16 16:42 | XMS_ITS | Encounter Summary ---
Author Organization [employer] Address [address] [facility] 7t [place] [address] Care Team Providers Care Sill Worker Name Role Phone Zahraa Roca DO Primary Care Provider + [phone] Christian Soria Unavailable Unavailable Reason for Visit * Reason Onset Date Comments PT-1 10/01/2024 Encounter Details Date Type Department Care Team ([facility] st Contact Info) Description 10/01/2024 Telephone [facility] MEDICINE [address] [place], [place] [phone] Zahraa Roca DO [address] [place], [place] [phone] PT-1 (/) Social History Tobacco Use Types [...] EDT Tc from pt requesting for the [employer] locations for all his Pt 1 to be changed to [address] [place] [address]. If any questions contact pt at [phone] documented in this encounter Plan of Treatment Upcoming Encounters Date Type Department Care Team (Late st Contact Info) Description 11/13/2024 1:00 PM EDT Clinical Support [facility] MEDICINE [address] [place] [address] 11/23/2024 1:30 PM EDT Office Visit [facility] ADULT DENTAL [address] [place] [address] Cristian Finley DDS [address] [place] [address] 12/26/2024 9:00 AM EDT Office Visit [facility] ADULT DENTAL [address] [place] [address] Elis Arce documented as of this encounter Visit Diagnoses Not on filedocumented in this encounter Additional Health Concerns Assessment Noted Time PHQ-9 Depression Total Score: 0 11/28/19 24 11:23 AM EDT documented as of this encounter Care Teams Sill Worker Relationship Specialty Start Date End Date Zahraa Roca DO [address] [place] [address] PCP - General Family Medicine 07/25/18 Christian Soria FNP [address] [place] [address] Nurse Practitioner Family Medicine 06/24/23 documented as of this encounter
--- OUTSIDE RECORDS SUMMARY | 2024-10-16 16:42 | XMS_ITS | Encounter Summary ---
Author Organization [employer] Address [address] [facility] 7t [place] [address] Care Team Providers Care Engineering Professor Name Role Phone Zahraa Roca DO Primary Care Provider + [phone] Christian Soria Unavailable Unavailable Reason for Visit * Reason Onset Date Comments Appt question 08/09/2024 Encounter Details Date Type Department Care Team ([facility] st Contact Info) Description 08/09/2024 Telephone [facility] MEDICINE [address] [place], [place] [phone] Zahraa Roca DO [address] [place], [place] [phone] Appt question Social History Tobacco Use Types [...] aug appt its for that. Any questions [phone] documented in this encounter Plan of Treatment Upcoming Encounters Date Type Department Care Team (Late st Contact Info) Description 11/13/2024 1:00 PM EDT Clinical Support [facility] MEDICINE [address] [place] [address] 11/23/2024 1:30 PM EDT Office Visit [facility] ADULT DENTAL [address] [place] [address] Cristian Finley DDS [address] [place] [address] 12/26/2024 9:00 AM EDT Office Visit [facility] ADULT DENTAL [address] [place] [address] Arce, Elis documented as of this encounter Visit Diagnoses Not on filedocumented in this encounter Additional Health Concerns Assessment Noted Time PHQ-9 Depression Total Score: 0 11/28/19 24 11:23 AM EDT documented as of this encounter Care Teams Engineering Professor Relationship Specialty Start Date End Date Zahraa Roca DO [address] [place] [address] PCP - General Family Medicine 07/25/18 Christian Soria FNP [address] [place] [address] Nurse Practitioner Family Medicine 06/24/23 documented as of this encounter
--- OUTSIDE RECORDS SUMMARY | 2024-10-16 16:42 | XMS_ITS | Encounter Summary ---
Author Organization [employer] Address [address] [facility] 7t [place] [address] Care Team Providers Care Rate Supervisor Name Role Phone Abelino Zahraa Primary Care Provider + [phone] Christian Soria Unavailable Unavailable Encounter Details Date Type Department Care Team ([facility] Contact Info) Description 10/07/2024 Telephone [facility] MED & PEDS [address] [place], [place] [phone] Renate Solorzano MD [address] [place] [address] Social History Tobacco Use Types Packs/Day Years [...] encounter Miscellaneous Notes * Telephone Encounter - Jose Domingo RN - 10/08/2024 2:15 PM EDT Below message addressed in previous encounter. 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) he will discharge patient on short course of gabapentin only for his disciitis of back but would like patient to be seen this week by PCP or covering provider for back pain med control.Please schedule patient for f/u [facility] eval.THanks documented in this encounter Plan of Treatment Upcoming Encounters Date Type Department Care Team (Late st Contact Info) Description 11/13/2024 1:00 PM EDT Clinical Support [facility] MEDICINE [address] [place] [address] 11/23/2024 1:30 PM EDT Office Visit [facility] ADULT DENTAL [address] [place] [address] Cristian Finley DDS [address] [place] [address] 12/26/2024 9:00 AM EDT Office Visit [facility] ADULT DENTAL [address] [place] [address] Elis Arce documented as of this encounter Visit Diagnoses Not on filedocumented in this encounter Additional Health Concerns Assessment Noted Time PHQ-9 Depression Total Score: 0 11/28/19 24 11:23 AM EDT documented as of this encounter Care Teams Rate Supervisor Relationship Specialty Start Date End Date Zahraa Roca DO [address] [place] [address] PCP - General Family Medicine 07/25/18 Christian Soria FNP [address] [place] [address] Nurse Practitioner Family Medicine 06/24/23 documented as of this encounter
--- OUTSIDE RECORDS SUMMARY | 2024-10-16 16:42 | XMS_ITS | Encounter Summary ---
Author Organization [employer] Address [address] [place] [address] 7t [place] [address] Care Team Providers Care Core Setter Name Role Phone Zahraa Roca DO Primary Care Provider + [phone] Christian Soria Unavailable Unavailable Encounter Details Date Type Department Care Team (Late st Contact Info) Description 07/06/2022 Orders Only [facility] CHC MED & PEDS [address] [place] [address] Zahraa Andino LPN Social History Tobacco Use [...] Description 11/13/2024 1:00 PM EDT Clinical Support [facility] MEDICINE [address] [place] [address] 11/23/2024 1:30 PM EDT Office Visit [facility] ADULT DENTAL [address] [place] [address] Cristian Finley DDS [address] [place] [address] 12/26/2024 9:00 AM EDT Office Visit [facility] ADULT DENTAL [address] [place] [address] Elis Arce documented as of this encounter Visit Diagnoses Not on filedocumented in this encounter Care Teams Core Setter Relationship Specialty Start Date End Date Zahraa Roca DO [address] [place] [address] PCP - General Family Medicine 07/25/18 Christian Soria FNP [address] [place] [address] Nurse Practitioner Family Medicine 06/24/23 documented as of this encounter
--- OUTSIDE RECORDS SUMMARY | 2024-10-16 16:42 | XMS_ITS | Encounter Summary ---
Author Organization [employer] Address [address] [facility] 7t [place] [address] Care Team Providers Care Delicatessen Department Manager Name Role Phone Zahraa Roca DO Primary Care Provider + [phone] Christian Soria Unavailable Unavailable Reason for Visit * Reason Onset Date Comments Recall Letter 09/21/2024 Recall Letter se nt 09/21/24. Encounter Details Date Type Department Care Team ([facility] Contact Info) Description 09/21/2024 Telephone [facility] MEDICINE [address] [place], [place] [phone] Zahraa Roca DO [address] [place], [place] [phone] Recall Letter (Recall Letter sent 09/21/24.) Social [...] sent. Visit type: Office visit Appointment notes: Anxiety due: August With: Mc Please schedule appointment above if patient returns call documented in this encounter Plan of Treatment Upcoming Encounters Date Type Department Care Team (Late st Contact Info) Description 11/13/2024 1:00 PM EDT Clinical Support [facility] MEDICINE [address] [place] [address] 11/23/2024 1:30 PM EDT Office Visit [facility] ADULT DENTAL [address] [place] [address] Cristian Finley DDS [address] [place] [address] 12/26/2024 9:00 AM EDT Office Visit [facility] ADULT DENTAL [address] [place] [address] Elis Arce documented as of this encounter Visit Diagnoses Not on filedocumented in this encounter Additional Health Concerns Assessment Noted Time PHQ-9 Depression Total Score: 0 11/28/19 24 11:23 AM EDT documented as of this encounter Care Teams Delicatessen Department Manager Relationship Specialty Start Date End Date Zahraa Roca DO [address] [place] [address] PCP - General Family Medicine 07/25/18 Christian Soria FNP [address] [place] [address] Nurse Practitioner Family Medicine 06/24/23 documented as of this encounter
--- OUTSIDE RECORDS SUMMARY | 2024-10-16 16:42 | XMS_ITS | Encounter Summary ---
Author Organization [employer] Address [address] [facility] 7t [place] [address] Care Team Providers Care Neuroradiologist Name Role Phone Zahraa Roca DO Primary Care Provider + [phone] Christian Sorai Unavailable Unavailable Reason for Visit * Reason Onset Date Comments PT-1 07/13/2024 Encounter Details Date Type Department Care Team ([facility] st Contact Info) Description 07/13/2024 Telephone [facility] MEDICINE [address] [place], [place] [phone] Zahraa Roca DO 230 [place], [place] [phone] PT-1 Social History Tobacco Use Types Packs/Day [...] Yes Provider name or facility name: [id number] Escort needed: Y/N: No Do you have a wheelchair: Y/N: No If yes- Manual or electric: Visits: (3x Monthly) documented in this encounter Plan of Treatment Upcoming Encounters Date Type Department Care Team (Late st Contact Info) Description 11/13/2024 1:00 PM EDT Clinical Support [facility] MEDICINE [address] [place] [address] 11/23/2024 1:30 PM EDT Office Visit [facility] ADULT DENTAL [address] [place] [address] Cristian Finley DDS [address] [place] [address] 12/26/2024 9:00 AM EDT Office Visit [facility] ADULT DENTAL [address] [place] [address] Elis Arce documented as of this encounter Visit Diagnoses Not on filedocumented in this encounter Additional Health Concerns Assessment Noted Time PHQ-9 Depression Total Score: 0 11/28/19 24 11:23 AM EDT documented as of this encounter Care Teams Neuroradiologist Relationship Specialty Start Date End Date Zahraa Roca DO [address] [place] [address] PCP - General Family Medicine 07/25/18 Chritsian Soria FNP [address] [place] [address] Nurse Practitioner Family Medicine 06/24/23 documented as of this encounter
--- OUTSIDE RECORDS SUMMARY | 2024-10-16 16:42 | XMS_ITS | Encounter Summary ---
Author Organization [employer] Address [address] [facility] [address] 7t [place] [address] Care Team Providers Care Golf Club Maker Name Role Phone SuryaZahraa lee Primary Care Provider + [phone] Christian Soria Unavailable Unavailable Encounter Details Date [...] Description 11/13/2024 1:00 PM EDT Clinical Support [facility]INE [address] [place] [address] 11/23/2024 1:30 PM EDT Office Visit [facility] ADULT DENTAL [address] [place] [address] Cristian Finley DDS [address] [place] [address] 12/26/2024 9:00 AM EDT Office Visit [facility] ADULT DENTAL [address] [place] [address] Elis Arce documented as of this encounter Procedures Procedure Name Priority Date/Time Associated Diagnosis Comments GROSS AND MICROSCOPIC LEVEL 3 Routine 09/19/2024 9:00 AM EST documented in this encounter Results * Gross and Microscopic Level 3 (09/19/2024 9:00 AM EST) 09/19/2024 9:00 AM EST 09/19/2024 12:05 PM EST [facility] - 09/20/2024 3:24 PM EST ----- ------- Name: Cristobal Enriquez ? Age/Sex: 54/M ? : 1970 Unit#: [id number] ?? Attend Dr: Sergei Christine MD ?Re09/19/24 ?Status: DEP REF ? Location: HO.LNP ?Disch: ? ----- ------- SPEC : [id number] ? RECD: 09/19/24 ? STATUS: ??SOUT ? REQ NUM: [id number] ? NGA: 09/19/24 ? SUBM DR: Sergei [...] ? Age/Sex: 54/M ? : 1970 Unit#: [id number] ?? Attend Dr: Sergei Christine MD ?Re09/19/24 ?Status: DEP REF ? Location: HO.LNP ?Disch: ? ----- ------- SPEC : [id number] ? RECD: 09/19/24-1204 ? STATUS: ??SOUT ? REQ NUM: [id number] ? NGA: 09/19/24-899 ? SUBM DR: Sergei Christine MD ? ENTERED: ??09/19/24-1208 ?SP TYPE: Surgical ? OTHR DR: Zahraa Roca DO ? ORDERED: ??Gross Micro L3/2 ? Gross Description ?(Continued) CEDS This case was reviewed intradepartmentally. ??Results given to Dr. Christine by secure text by Dr. Naik on 09/20/24 at 3:22 pm. Copies To: ?? Zahraa Roca DO ?? [facility] ?? [address] ?? [place] [address] ?? [phone] ?? Sergei Christine MD ?? [facility] Sur[facility] ?? [address] ?? [place] [address] ?? [phone] ?? [email or web address] ----- ------- Signed (signature on file) Lore Naik 09/20/24 1524 ? ----- ------- ? END OF REPORT ? us Generic External Data Provider LAB CYTOLOGY ORDE RABTAMI Final Result [facility] [address] [place] [address] [phone] documented in this encounter Visit Diagnoses Not on filedocumented in this encounter Additional Health Concerns Assessment Noted Time PHQ-9 Depression Total Score: 0 11/28/19 24 11:23 AM EDT documented as of this encounter Care Teams Golf Club Maker Relationship Specialty Start Date End Date Zahraa Roca DO [address] [place] [address] PCP - General Family Medicine 07/25/18 Christian Soria FNP 230 [place] [address] Nurse Practitioner Family Medicine 06/24/23 documented as of this encounter
--- OUTSIDE RECORDS SUMMARY | 2024-10-16 16:42 | XMS_ITS | Encounter Summary ---
Author Organization [employer] Address [address] [facility] 7t [place] [address] Care Team Providers Care Crime Investigator Special Agent Name Role Phone Zahraa Roca DO Primary Care Provider + [phone] Christian Soria Unavailable Unavailable Reason for Visit * Reason Comments Care Coordination CHW outreach for SDO H PT-1 - LVM Encounter Details Date Type Department Care Team (Latest Contact Info) Description 10/02/2024 Patient Outreach [facility] MEDICINE [address] [place] [address] Zahraa Roca DO 230 [place] [address] Care Coordination (CHW outreach for SDOH PT-1 [...] Wednesdays, and Walk-In Urgent Care Located in [facility]. Patient provided with after-hours line for [facility], , which offer night time triage service and option to transfer to telecommunications line installer provider if needed. documented in this encounter Plan of Treatment Upcoming Encounters Date Type Department Care Team ([facility] st Contact Info) Description 11/13/2024 1:00 PM EDT Clinical Support [facility] MEDICINE [address] [place] [address] 11/23/2024 1:30 PM EDT Office Visit [facility] ADULT DENTAL [address] [place] [address] Cristian Finley DDS [address] [place] [address] 12/26/2024 9:00 AM EDT Office Visit [facility] ADULT DENTAL [address] [place] [address] Elis Arce documented as of this encounter Visit Diagnoses Not on filedocumented in this encounter Additional Health Concerns Assessment Noted Time PHQ-9 Depression Total Score: 0 11/28/19 24 11:23 AM EDT documented as of this encounter Care Teams Crime Investigator Special Agent Relationship Specialty Start Date End Date Zahraa Roca DO [address] [place] [address] PCP - General Family Medicine 07/25/18 Christian Soria FNP [address] [place] [address] Nurse Practitioner Family Medicine 06/24/23 documented as of this encounter
--- OUTSIDE RECORDS SUMMARY | 2024-10-16 16:42 | XMS_ITS | Encounter Summary ---
Author Organization [employer] Address [address] [facility] 7t [place] [address] Care Team Providers Care Responder Name Role Phone Zahraa Roca DO Primary Care Provider + [phone] Christian Soria Unavailable Unavailable Reason for Visit * Reason Comments Care Coordination CHW outreach for SDO H PT-1 and food needs-referral completed Encounter Details Date Type Department Care Team (Latest Contact Info) Description 10/01/2024 Patient Outreach [facility] MEDICINE [address] [place] [address] Zahraa Roca DO [address] [place], [place] [phone] Care Coordination (CHW outreach for SDOH PT-1 [...] send out in behalf of patient for [facility] appt. Patient verbalizes understandin g, and able to agree with plan to follow up. Patient educated on extended clinic hours on Mondays through Wednesdays, and Walk-In Urgent Care Located in [facility]. Patient provided with after-hours line for [facility], , which offer night time triage service and option to transfer to applications administrator provider if needed. documented in this encounter Plan of Treatment Upcoming Encounters Date Type Department Care Team (Late st Contact Info) Description 11/13/2024 1:00 PM EDT Clinical Support [facility] MEDICINE [address] [place] [address] 11/23/2024 1:30 PM EDT Office Visit [facility] ADULT DENTAL [address] [place] [address] Cristian Finley DDS [address] [place] [address] 12/26/2024 9:00 AM EDT Office Visit [facility] ADULT DENTAL [address] [place] [address] Elis Arce documented as of this encounter Visit Diagnoses Not on filedocumented in this encounter Additional Health Concerns Assessment Noted Time PHQ-9 Depression Total Score: 0 11/28/19 24 11:23 AM EDT documented as of this encounter Care Teams Responder Relationship Specialty Start Date End Date [place] [address] PCP - General Family Medicine 07/25/18 Christian Soria FNP [address] [place] [address] Nurse Practitioner Family Medicine 06/24/23 documented as of this encounter
--- OUTSIDE RECORDS SUMMARY | 2024-10-16 16:42 | XMS_ITS | Encounter Summary ---
Author Organization [employer] Address [address] [place] [address] 7t [place] [address] Care Team Providers Care Broke Beater Name Role Phone Zahraa Roca DO Primary Care Provider + [phone] Christian Soria Unavailable Unavailable Encounter Details Date Type Department Care Team (Late st Contact Info) Description 08/12/2022 Orders Only [facility] MED & PEDS [address] [place] [address] Zahraa Andino LPN Social History Tobacco Use [...] Description 11/13/2024 1:00 PM EDT Clinical Support [facility] MEDICINE [address] [place] [address] 11/23/2024 1:30 PM EDT Office Visit [facility] ADULT DENTAL [address] [place] [address] Cristian Fniley DDS [address] [place] [address] 12/26/2024 9:00 AM EDT Office Visit [facility] ADULT DENTAL [address] [place] [address] Elis Arce documented as of this encounter Visit Diagnoses Not on filedocumented in this encounter Care Teams Broke Beater Relationship Specialty Start Date End Date Zahraa Roca DO [address] [place] [address] PCP - General Family Medicine 07/25/18 Christian Soria FNP [address] [place] [address] Nurse Practitioner Family Medicine 06/24/23 documented as of this encounter
--- OUTSIDE RECORDS SUMMARY | 2024-10-16 16:42 | XMS_ITS | Encounter Summary ---
Author Organization [employer] Address [address] [facility] 7t [place] [address] Care Team Providers Care Regional Truck Driver Name Role Phone Zahraa Roca DO Primary Care Provider + [phone] Christian Soria Unavailable Unavailable Reason for Visit * Reason Onset Date Comments PT-1 10/02/2024 Encounter Details Date Type Department Care Team ([facility] st Contact Info) Description 10/02/2024 Telephone [facility] MEDICINE [address] [place], [place] [phone] Zahraa Roca DO 230 [place], [place] [phone] PT-1 Social History Tobacco Use Types Packs/Day [...] * Telephone Encounter - Go Vasquez - 10/09/2024 9:28 AM EDT Tc from pt stating that hiwot neds the pt 1 to be able to go to his pill count. Pt will not be able to make it with out transportation. Pt is requesting status of Pt 1 Contact pt at [phone] * Telephone Encounter - Go Vasquez - 10/02/2024 9:06 AM EDT Patient calling requesting PT1 Home Address verified: Y/N: Yes Provider name or facility name: [facility] Care Resource [address] [address] Escort needed: Y/N: No Do you have a wheelchair: Y/N: No If yes- Manual or electric: Visits: (7 Days x Weekly) documented in this encounter Plan of Treatment Upcoming Encounters Date Type Department Care Team ([facility] st Contact Info) Description 11/13/2024 1:00 PM EDT Clinical Support [facility] MEDICINE [address] [place] [address] 11/23/2024 1:30 PM EDT Office Visit [facility] ADULT DENTAL [address] [place] [address] Cristian Finley DDS [address] [place] [address] 12/26/2024 9:00 AM EDT Office Visit [facility] ADULT DENTAL [address] [place] [address] Elis Arce documented as of this encounter Visit Diagnoses Not on filedocumented in this encounter Additional Health Concerns Assessment Noted Time PHQ-9 Depression Total Score: 0 11/28/19 24 11:23 AM EDT documented as of this encounter Care Teams Regional Truck Driver Relationship Specialty Start Date End Date Zahraa Roca DO [address] [place] [address] PCP - General Family Medicine 07/25/18 Christian Soria FNP [address] [place] [address] Nurse Practitioner Family Medicine 06/24/23 documented as of this encounter
--- OUTSIDE RECORDS SUMMARY | 2024-10-16 16:42 | XMS_ITS | Encounter Summary ---
Author Organization [employer] Address [address] [facility] 7t [place] [address] Care Team Providers Care Recreational Vehicle Resort Manager Name Role Phone Zahraa Roca DO Primary Care Provider + [phone] Christian Soria Unavailable Unavailable Reason for Visit * Reason Onset Date Comments Appointment Request 08/03/2024 Encounter Details Date Type Department Care Team ([facility] Contact Info) Description 08/03/2024 Telephone [facility] MEDICINE [address] [place], [place] [phone] Zahraa Roca DO [address] [place], [place] [phone] Appointment Request Social History Tobacco Use Types [...] missed appointment with dermatology. Contact pt at [phone] documented in this encounter Plan of Treatment Upcoming Encounters Date Type Department Care Team (Late st Contact Info) Description 11/13/2024 1:00 PM EDT Clinical Support [facility] MEDICINE [address] [place] [address] 11/23/2024 1:30 PM EDT Office Visit [facility] ADULT DENTAL [address] [place] [address] Cristian Finley DDS [address] [place] [address] 12/26/2024 9:00 AM EDT Office Visit [facility] ADULT DENTAL [address] [place] [address] Elis Arce documented as of this encounter Visit Diagnoses Not on filedocumented in this encounter Additional Health Concerns Assessment Noted Time PHQ-9 Depression Total Score: 0 11/28/19 24 11:23 AM EDT documented as of this encounter Care Teams Recreational Vehicle Resort Manager Relationship Specialty Start Date End Date Zahraa Roca DO [address] [place] [address] PCP - General Family Medicine 07/25/18 Christian Soria FNP [address] [place] [address] Nurse Practitioner Family Medicine 06/24/23 documented as of this encounter
--- OUTSIDE RECORDS SUMMARY | 2024-10-16 16:42 | XMS_ITS | Encounter Summary ---
Author Organization [employer] Address [address] [facility] 7t [place] [address] Care Team Providers Care Mold Tooler Name Role Phone YudiZahraa barahona Primary Care Provider + [phone] Christian Soria Unavailable Unavailable Reason for Visit * Reason Onset Date Comments Med Refill 10/11/2024 UTOX Neg BZO, Pos OXY 10/11/2024 Encounter Details Date Type Department Care Team (Late st Contact Info) Description 10/11/2024 Refill [facility] MEDICINE [address] [place] [address] Mere Rios, HENRIK Anxiety Social History Tobacco Use Types Packs/Day [...] Telephone Encounter - Mere Rios RN - 10/11/2024 11:16 AM EDT Pt had [employer] WORK[employer] appt today UTOX was Neg BZO, Pos OXY. Stated he received OXY at [facility] this past weekend. Pt scheduled with PCP 10/16/24. documented in this encounter Plan of Treatment Upcoming Encounters Date Type Department Care Team (Late st Contact Info) Description 11/13/2024 1:00 PM EDT Clinical Support [facility] MEDICINE [address] [place] [address] 11/23/2024 1:30 PM EDT Office Visit [facility] ADULT DENTAL [address] [place] [address] Cristian Finley DDS [address] [place] [address] 12/26/2024 9:00 AM EDT Office Visit [facility] ADULT DENTAL [address] [place] [address] Elis Arce documented as of this encounter Visit Diagnoses Diagnosis Anxiety Anxiety state, unspecified documented in this encounter Additional Health Concerns Assessment Noted Time PHQ-9 Depression Total Score: 0 11/28/19 11:23 AM EDT documented as of this encounter Care Teams Mold Tooler Relationship Specialty Start Date End Date Zahraa Roca DO [address] [place] [address] PCP - General Family Medicine 07/25/18 Christian Soria FNP [address] [place] [address] Nurse Practitioner Family Medicine 06/24/23 documented as of this encounter
--- OUTSIDE RECORDS SUMMARY | 2024-10-16 16:42 | XMS_ITS | Encounter Summary ---
Author Organization [employer] Address [address] [facility] 7t [place] [address] Care Team Providers Care Toll Transmission Worker Name Role Phone Zahraa Roca DO Primary Care Provider + [phone] Christian Soria Unavailable Unavailable Reason for Visit * Reason Comments Transition Of Care (Tcm) HDF- Reschedule d HDF appt Encounter Details Date Type Department Care Team (Late st Contact Info) Description 10/08/2024 Patient Outreach [facility] MEDICINE [address] [place] [address] Zahraa Roca DO [address] [place], [place] [phone] Transition Of Care (Tcm) (HDF- Rescheduled HDF appt) Social History Tobacco Use Types Packs/Day Years [...] as of this encounter Progress Notes * Salud Ernst - 10/08/2024 10:03 AM EDT CC Salud returning patient's call. Patient has surgery on 10/19/2024 with and unable to keep 10/19/2024 HDF. CC rescheduled HDF appointment for 10/23/2024 at 9:15am with . Message sent to Izzy as UMAIR. documented in this encounter Plan of Treatment Upcoming Encounters Date Type Department Care Team (Late st Contact Info) Description 11/13/2024 1:00 PM EDT Clinical Support [facility] MEDICINE [address] [place] [address] 11/23/2024 1:30 PM EDT Office Visit [facility] ADULT DENTAL [address] [place] [address] Cristian Finley DDS [address] [place] [address] 12/26/2024 9:00 AM EDT Office Visit [facility] ADULT DENTAL [address] [place] [address] Elis Arce documented as of this encounter Visit Diagnoses Not on filedocumented in this encounter Additional Health Concerns Assessment Noted Time PHQ-9 Depression Total Score: 0 11/28/19 24 11:23 AM EDT documented as of this encounter Care Teams Toll Transmission Worker Relationship Specialty Start Date End Date Zahraa Roca DO 230 [place] [address] PCP - General Family Medicine 07/25/18 Christian Soria FNP [address] [place] [address] Nurse Practitioner Family Medicine 06/24/23 documented as of this encounter
--- OUTSIDE RECORDS SUMMARY | 2024-10-16 16:42 | XMS_ITS | Encounter Summary ---
Author Organization [employer] Address [address] [facility] [address] 7t [place] [address] Care Team Providers Care Physical Therapy Resident Name Role Phone YudiZahraa barahona Primary Care Provider + [phone] Christian Soria Unavailable Unavailable Encounter Details Date Type Department Care Team (Late st Contact Info) Description 10/15/2024 Orders Only GENERIC EXTERNAL DATA DEPARTMENT [...] the past 12 months, has t he [employer], gas, oil or water company threatened to [...] Description 11/13/2024 1:00 PM EDT Clinical Support [facility] MEDICINE [address] [place] [address] 11/23/2024 1:30 PM EDT Office Visit [facility] ADULT DENTAL [address] [place] [address] Cristian Finley DDS [address] [place] [address] 12/26/2024 9:00 AM EDT Office Visit [facility] ADULT DENTAL [address] [place] [address] Elis Arce documented as of this encounter Procedures Procedure Name Priority Date/Time Associated Diagnosis Comments CBC Routine 10/15/2024 12:57 PM EDT BASIC METABOLIC PANEL Routine 10/15/2024 12:57 PM EDT documented in this encounter Results * (ABNORMAL) Basic Metabolic Panel (10/15/2024 12:57 PM EDT) Sodium 139 135 - 145 mmol/L [facility] Potassium 4.0 3.3 - 5.1 mmol/L [facility] Chloride 104 96 - 108 mmol/L [facility] Carbon Dioxide 30(H) 22 - 29 mmol/L [facility] Anion Gap 9(L) 12 - 20 [facility] Urea Nitrogen (BUN) 13 9 - 16 mg/dL [facility] Creatinine, Serum 0.79 0.5 - 1.4 mg/dL [facility] Creatinine Clr Calc Pharmacy 107.8 [facility] Comment:eGFR (calculated fro m the MDRD study equation) and eCrCl(calculated from the Cockcroft-Gault equation) are based ondifferent parameters and may not yield comparable results.If eCrCl result is absurd, please check patient'sheight/weight. Estimated Glomerular Filt Rate >60 [facility] Comment:Chronic Kidney Disea se: Estimated GFR < 60 mL/min/1.97g0Pzdsqm Kidney Disease: Estimated GFR < 15 mL/min/1.73m2 Glucose 102 60 - 115 mg/dL [facility] Calcium 8.7 8.4 - 10.2 mg/dL [facility] 10/15/2024 12:5 7 PM EDT 10/15/2024 12:57 PM EDT us Generic External Data Provider LAB BLOOD ORDERAB LES Final Result [facility] [address] [place] [address] [phone] * (ABNORMAL) CBC (10/15/2024 12:57 PM EDT) White Blood Count 7.6 4.8 - 10.8 X10*3/uL [facility] Red Blood Count 3.80(L) 4.60 - 5.80 X10*6/uL [facility] Hemoglobin 11.3(L) 14.0 - 18.0 g/dl [facility] Hematocrit 35.3(L) 42.0 - 52.0 % [facility] Mean Corpuscular Volume 92.9 80.0 - 98.0 fL [facility] Mean Corpuscular Hemoglobin 29.7 27.0 - 33.0 pg [facility] Mean Corpuscular HGB Conc 32.0 31.0 - 36.0 g/dl [facility] Red Cell Distribution Width 12.1 11.0 - 16.0 % [facility] Platelet Count 184 160 - 400 X10*3/uL [facility] Mean Platelet Volume 11.2 9.4 - 12.4 fL [facility] NRBC Pct Auto 0.0 0.0 - 0.2 /100WBC [facility] NRBC Abs Auto 0.000 0.0 - 0.012 X10*3/uL [facility] 10/15/2024 12:5 7 PM EDT 10/15/2024 12:57 PM EDT us Generic External Data Provider LAB BLOOD ORDERAB LES Final Result Performing Organization Address City/State/RUST Co de Phone Number [facility] [address] [place] [address] [phone] documented in this encounter Visit Diagnoses Not on filedocumented in this encounter Additional Health Concerns Assessment Noted Time PHQ-9 Depression Total Score: 0 11/28/19 24 11:23 AM EDT documented as of this encounter Care Teams Physical Therapy Resident Relationship Specialty Start Date End Date Zahraa Roca DO [address] [place] [address] PCP - General Family Medicine 07/25/18 Christian Soria FNP [address] [place] [address] Nurse Practitioner Family Medicine 06/24/23 documented as of this encounter
--- OUTSIDE RECORDS SUMMARY | 2024-10-16 16:42 | XMS_ITS | Encounter Summary ---
Author Organization [email or web address] Address [address] [facility] 7t [place] [address] Care Team Providers Care Thermal Engineer Name Role Phone SuryaZahraa lee Primary Care Provider + [phone] Christian Soria Unavailable Unavailable Reason for Visit * Reason Onset Date Comments UTOX confirmation Neg BZO 09/20/2024 Encounter Details Date Type Department Care Team (Late st Contact Info) Description 09/20/2024 Telephone [facility] MEDICINE [address] [place] [address] Mere Rios, HENRIK UTOX confirmation Neg BZO [...] - 09/20/2024 2:19 PM EST Pt had DONOR SERVICES MANAGER RV appt 09/12/24. UTOX was Neg BZO, [...] Description 11/13/2024 1:00 PM EDT Clinical Support [facility] [address] [place] [address] 11/23/2024 1:30 PM EDT Office Visit [facility] ADULT DENTAL [address] [place] [address] Cristian Finley DDS [address] [place] [address] 12/26/2024 9:00 AM EDT Office Visit [facility] ADULT DENTAL [address] [place] [address] Elis Arce documented as of this encounter Visit Diagnoses Not on filedocumented in this encounter Additional Health Concerns Assessment Noted Time PHQ-9 Depression Total Score: 0 11/28/19 24 11:23 AM EDT documented as of this encounter Care Teams Thermal Engineer Relationship Specialty Start Date End Date Zahraa Roca DO [address] [place] [address] PCP - General Family Medicine 07/25/18 Christian Soria FNP [address] [place] [address] Nurse Practitioner Family Medicine 06/24/23 documented as of this encounter
--- OUTSIDE RECORDS SUMMARY | 2024-10-16 16:42 | XMS_ITS | Encounter Summary ---
Author Organization [employer] Address [address] [facility] 7t [place] [address] Care Team Providers Care Logistics Technician Name Role Phone Zahraa Roca DO Primary Care Provider + [phone] Christian Soria Unavailable Unavailable Encounter Details Date Type Department Care Team (Late st Contact Info) Description 10/16/2024 11:45 AM EDT Office Visit [facility] MEDICINE [address] [place], [place] [phone] Zahraa Roca DO [address] [place], [place] [phone] Chronic bilateral low back pain, unspecified whether sciatica present (Primary Dx) Social History Tobacco Use Types Packs/Day Years [...] Mass Index 25.83 10/16/2024 3:07 PM EDT documented in this encounter Plan of Treatment Upcoming Encounters Date Type Department Care Team (Late st Contact Info) Description 11/13/2024 1:00 PM EDT Clinical Support [facility] MEDICINE [address] [place] [address] 11/23/2024 1:30 PM EDT Office Visit [facility] ADULT DENTAL [address] [place] [address] Cristian Finley DDS [address] [place] [address] 12/26/2024 9:00 AM EDT Office Visit [facility] ADULT DENTAL [address] [place] [address] Elis Arce documented as of this encounter Procedures Procedure Name Priority Date/Time Associated Diagnosis Comments XR THORACIC SPINE 2 VIEWS Routine 10/16/2024 1:36 PM EDT Chronic bilateral low back pain, unspecified whether sciatica present documented in this encounter Results * XR Thoracic Spine 2 Views (10/16/2024 1:36 PM EDT) Anatomical Region Laterality Modality Spine, T-spine Radiographic Nara ging 10/16/2024 1:36 PM EDT Narrative 10/16/2024 2:21 PM EDT ?[facility] ?[address] ?[place] [address] ?XRay Report ? Signed ? Patient: Cristobal Enriquez ?MR#: [id number] ?? 54 ? : 1970 ?Acct:[id number] ? Age/Sex: 54 / M ?ADM Date: 10/16/24 ? Loc: HO.HHCX ? Attending Dr: Zahraa Roca DO ? Ordering Physician: Zahraa Roca DO ?? Date of Service: 10/16/24 ?? Procedure(s): XR thoracic spine 2V ?? Accession Number(s): [id number] ? cc: Zahraa Roca DO ? EXAMINATION: [...] DD/ 1336 ? TD/TT: 10/16/24 1400 ? Keymodule Assembly Supervisor: ? Procedure Note Aziza, Image - 10/16/[address] [address] XRay Report Signed Patient: Cristobal Enriquez JMR#: [id number] 54 : 1970Acct:[id number] Age/Sex: 54 / MADM Date: 10/16/24 Loc: HO.HHCX Attending Dr: Zahraa Roca DO Ordering Physician: Zahraa Roca DO Date of Service: 10/16/24 Procedure(s): XR thoracic spine 2V Accession Number(s): [id number] cc: Zahraa Roca DO EXAMINATION: XR THORACIC [...] Boris Sears MD 10/16/2024 02:19 PM EDT Dictated By: Boris Lovett MD Signed By: <Electronically signed by Boris Bates MDin OV> 10/16/24 1419 DD/ 1336 TD/TT: 10/16/24 1400 Ke[employer] Assembly Supervisor: Zahraa Roca DO IMG XR PROCEDURES Edited Res ult - Final documented in this encounter Visit Diagnoses Diagnosis Chronic bilateral low back pain, unspecified whether sciatica present- Primary documented in this encounter Additional Health Concerns Assessment Noted Time PHQ-9 Depression Total Score: 16 10/16/ 025 3:09 PM EDT documented as of this encounter Care Teams Logistics Technician Relationship Specialty Start Date End Date Zahraa Roca DO [address] [place] [address] PCP - General Family Medicine 07/25/18 Christian Soria FNP [address] [place] [address] Nurse Practitioner Family Medicine 06/24/23 documented as of this encounter
--- OUTSIDE RECORDS SUMMARY | 2024-10-16 16:42 | XMS_ITS | Encounter Summary ---
Author Organization [employer] Address [address] [facility] 7t [place] [address] Care Team Providers Care Electrical Engineer Name Role Phone Zahraa Roca DO Primary Care Provider + [phone] Christian Soria Unavailable Unavailable Reason for Referral * Consultation (Routine) - Authorized Specialty Diagnoses / Procedures Referred By Contac t Referred To Contact Pain Medicine Diagnoses Chronic left-sided low back pain without sciatica Marcos Mckeon MD [address] [place] [address] Phone: tel: fax: [address] Phone: tel: fax: Referral ID Status Reason Start Date Expiration Date Visits Requested Visits Authorized [id number] Authorized Specialty Services Required 10/05/2024 10/05/2025 1 1 * Consultation (Routine) - Closed Specialty Diagnoses / Procedures Referred By Contac t Referred To Contact General Surgery Diagnoses Right buttock pain Marcos Mckeon MD [address] [place] [address] Phone: tel: fax: Sergei Christine MD [address] [place] [address] Phone: tel: fax: Referral ID Status Reason Start Date Expiration Date V isits Requested Visits Authorized [id number] Closed Specialty Services Required 10/05/2024 10/05/2025 1 1 Encounter Details Date Type Department Care Team (Late st Contact Info) Description 10/05/2024 Telephone [facility] [address] [place] [address] Marcos Mckeon MD [address] [place] [address] Social History Tobacco Use Types Packs/Day Years [...] he started experiencing chest pain after the [facility] visit; I advised returning to [facility] or going to the ED now for evaluation. documented in this encounter Plan of Treatment Upcoming Encounters Date Type Department Care Team (Late st Contact Info) Description 11/13/2024 1:00 PM EDT Clinical Support [facility] MEDICINE [address] [place] [address] 11/23/2024 1:30 PM EDT Office Visit [facility] ADULT DENTAL [address] [place] [address] Cristian Finley DDS [address] [place] [address] 12/26/2024 9:00 AM EDT Office Visit [facility] ADULT DENTAL [address] [place] [address] Elis Arce Scheduled Referrals Name Type Priority Associated Diagnoses [...] as of this encounter Care Teams Electrical Engineer Relationship Specialty Start Date End Date Zahraa Roca DO [address] [place] [address] PCP - General Family Medicine 07/25/18 Christian Soria FNP [address] [place] [address] Nurse Practitioner Family Medicine 06/24/23 documented as of this encounter
--- OUTSIDE RECORDS SUMMARY | 2024-10-16 16:42 | XMS_ITS | Encounter Summary ---
Author Organization [employer] Address [address] [place] [address] 7t [place] [address] Care Team Providers Care Guest Relation Officer Name Role Phone Zahraa Roca DO Primary Care Provider +[phone] Christian Soria Unavailable Unavailable Encounter Details Date Type Department Care Team (Late st Contact Info) Description 08/31/2022 Abstract [facility] MEDICINE [address] [place] [address] Zahraa Roca DO [address] [place] [address] Social History Tobacco Use Types Packs/Day Years [...] Description 11/13/2024 1:00 PM EDT Clinical Support [facility] MEDICINE [address] [place], [place] [phone] 11/23/2024 1:30 PM EDT Office Visit [facility] ADULT DENTAL [address] [place] [address] Cristian Finley DDS [address] [place], [place] [phone] 12/26/2024 9:00 AM EDT Office Visit [facility] ADULT DENTAL [address] [place] [address] Elis Arce documented as of this encounter Visit Diagnoses Not on filedocumented in this encounter Additional Health Concerns Assessment Noted Time PHQ-9 Depression Total Score: 0 08/24/19 23 2:33 PM EST documented as of this encounter Care Teams Guest Relation Officer Relationship Specialty Start Date End Date Zahraa Roca DO [address] [place] [address] PCP - General Family Medicine 07/25/18 Christian Soria FNP [address] [place] [address] Nurse Practitioner Family Medicine 06/24/23 documented as of this encounter
--- OUTSIDE RECORDS SUMMARY | 2024-10-16 16:42 | XMS_ITS | Encounter Summary ---
Author Organization [employer] Address [address] [facility] [address] 7t [place] [address] Care Team Providers Care Putty And Caulking Supervisor Name Role Phone YudiZahraa barahona Primary Care Provider + [phone] Christian Soria Unavailable Unavailable Encounter Details Date Type Department Care Team (Latest Contact Info) Description 10/11/2024 Travel Social History Tobacco Use Types Packs/Day [...] Description 11/13/2024 1:00 PM EDT Clinical Support [facility] MEDICINE [address] [place] [address] 11/23/2024 1:30 PM EDT Office Visit [facility] ADULT DENTAL [address] [place] [address] Cristian Finley DDS [address] [place] [address] 12/26/2024 9:00 AM EDT Office Visit [facility] ADULT DENTAL [address] [place] [address] Elis Arce documented as of this encounter Visit Diagnoses Not on filedocumented in this encounter Additional Health Concerns Assessment Noted Time PHQ-9 Depression Total Score: 0 11/28/19 24 11:23 AM EDT documented as of this encounter Care Teams Putty And Caulking Supervisor Relationship Specialty Start Date End Date Zahraa Roca DO [address] [place] [address] PCP - General Family Medicine 07/25/18 Christian Soria FNP [address] [place] [address] Nurse Practitioner Family Medicine 06/24/23 documented as of this encounter
--- OUTSIDE RECORDS SUMMARY | 2024-10-16 16:42 | XMS_ITS | Encounter Summary ---
Author Organization [employer] Address [address] [place] [address] 7 [place] [address] Care Team Providers Care Furnace Repairer Name Role Phone SuryaZahraa lee Primary Care Provider + [phone] Christian Soria Unavailable Unavailable Reason for Visit * Reason Comments Med Refill Encounter Details Date Type Department Care Team (Late st Contact Info) Description 12/31/2022 Refill [facility] MEDICINE [address] [place] [address] Christian Soria FNP Anxiety Social History Tobacco [...] Description 11/13/2024 1:00 PM EDT Clinical Support [facility] MEDICINE [address] [place] [address] 11/23/2024 1:30 PM EDT Office Visit [facility] ADULT DENTAL [address] [place] [address] Cristian Finley DDS [address] [place] [address] 12/26/2024 9:00 AM EDT Office Visit [facility] ADULT DENTAL [address] [place] [address] Elis Arce documented as of this encounter Visit Diagnoses Diagnosis Anxiety Anxiety state, unspecified documented in this encounter Additional Health Concerns Assessment Noted Time PHQ-9 Depression Total Score: 0 08/24/19 23 2:33 PM EST documented as of this encounter Care Teams Furnace Repairer Relationship Specialty Start Date End Date Zahraa Roca DO [address] [place] [address] PCP - General Family Medicine 07/25/18 Christian Soria FNP [address] [place] [address] Nurse Practitioner Family Medicine 06/24/23 documented as of this encounter
--- OUTSIDE RECORDS SUMMARY | 2024-10-16 16:42 | XMS_ITS | Encounter Summary ---
Author Organization [employer] Address [address] [facility] [address] 7t [place] [address] Care Team Providers Care Ekg Monitor Tech Name Role Phone YudiZahraa barahona Primary Care Provider + [phone] Christian Soria Unavailable Unavailable Encounter Details Date Type Department Care Team (Latest Contact Info) Description 10/16/2024 Travel Social History Tobacco Use Types Packs/Day [...] Description 11/13/2024 1:00 PM EDT Clinical Support [facility] MEDICINE [address] [place] [address] 11/23/2024 1:30 PM EDT Office Visit [facility] ADULT DENTAL [address] [place] [address] Cristian Finley DDS [address] [place] [address] 12/26/2024 9:00 AM EDT Office Visit [facility] ADULT DENTAL [address] [place] [address] Elis Arce documented as of this encounter Visit Diagnoses Not on filedocumented in this encounter Additional Health Concerns Assessment Noted Time PHQ-9 Depression Total Score: 16 025 3:09 PM EDT documented as of this encounter Care Teams Ekg Monitor Tech Relationship Specialty Start Date End Date Zahraa Roca DO [address] [place] [address] PCP - General Family Medicine 07/25/18 Christian Soria FNP [address] [place] [address] Nurse Practitioner Family Medicine 06/24/23 documented as of this encounter
--- OUTSIDE RECORDS SUMMARY | 2024-10-16 16:42 | XMS_ITS | Encounter Summary ---
Author Organization [employer] Address [address] [facility] 7t [place] [address] Care Team Providers Care Script Supervisor Name Role Phone Zahraa Roca DO Primary Care Provider + [phone] Chrsitian Soria Unavailable Unavailable Reason for Visit * Reason Onset Date Comments Appointment Request 10/03/2024 Encounter Details Date Type Department Care Team ([facility] Contact Info) Description 10/03/2024 Telephone [facility] MED[facility] [address] [place], [place] [phone] Zahraa Roca DO [address] [place], [place] [phone] Appointment Request Social History Tobacco Use Types [...] to clear him for his new address. [employer] OPERATOR HELPER RV rescheduled for 10/11/24 @ 10:30am * Telephone Encounter - Gabbi Arreola - 10/03/2024 9:19 AM EDT Tc from pt requesting a call back to r/s appt. Pt canc. 10/10 appt because has no ride. documented in this encounter Plan of Treatment Upcoming Encounters Date Type Department Care Team (Late st Contact Info) Description 11/13/2024 1:00 PM EDT Clinical Support [facility] MEDICINE [address] [place] [address] 11/23/2024 1:30 PM EDT Office Visit [facility] ADULT DENTAL [address] [place] [address] Cristian Finley DDS [address] [place] [address] 12/26/2024 9:00 AM EDT Office Visit [facility] ADULT DENTAL [address] [place] [address] Elis Arce documented as of this encounter Visit Diagnoses Not on filedocumented in this encounter Additional Health Concerns Assessment Noted Time PHQ-9 Depression Total Score: 0 11/28/19 24 11:23 AM EDT documented as of this encounter Care Teams Script Supervisor Relationship Specialty Start Date End Date Zahraa Roca DO [address] [place] [address] PCP - General Family Medicine 07/25/18 Christian Soria FNP [address] [place] [address] Nurse Practitioner Family Medicine 06/24/23 documented as of this encounter
--- OUTSIDE RECORDS SUMMARY | 2024-10-16 16:42 | XMS_ITS | Encounter Summary ---
Author Organization [employer] Address [address] [place] [address] 7t [place] [address] Care Team Providers Care Electrician Helper Name Role Phone SuryaZahraa lee Primary Care Provider + [phone] Christian Soria Unavailable Unavailable Reason for Visit * Reason Comments Med Refill Encounter Details Date Type Department Care Team (Late st Contact Info) Description 12/19/2022 Refill [facility] MEDICINE [address] [place] [phone] Christian Soria FNP Anxiety Social History Tobacco [...] Support [facility] MEDICINE [address] [place], [place] [phone] 11/23/2024 1:30 PM EDT Office Visit [facility] ADULT DENTAL [address] [place] [phone] Cristian Finley DDS [address] [place] [address] 12/26/2024 9:00 AM EDT Office Visit [facility] ADULT DENTAL [address] [place] [address] Elis Arce documented as of this encounter Visit Diagnoses Diagnosis Anxiety Anxiety state, unspecified documented in this encounter Additional Health Concerns Assessment Noted Time PHQ-9 Depression Total Score: 0 08/24/19 23 2:33 PM EST documented as of this encounter Care Teams Electrician Helper Relationship Specialty Start Date End Date Zahraa Roca DO [address] [place] [address] PCP - General Family Medicine 07/25/18 Christian Soria FNP [address] [place] [address] Nurse Practitioner Family Medicine 06/24/23 documented as of this encounter
--- OUTSIDE RECORDS SUMMARY | 2024-10-16 16:42 | XMS_ITS | Encounter Summary ---
Author Organization [employer] Address [address] [facility] 7t [place] [address] Care Team Providers Care Staff Nuclear Weapons Officer Name Role Phone Zahraa Roca DO Primary Care Provider + [phone] Christian Soria Unavailable Unavailable Encounter Details Date Type Department Care Team (Late st Contact Info) Description 10/21/2022 Orders Only [facility] [address] [place] [address] Zahraa Andino LPN Social History Tobacco Use [...] Description 11/13/2024 1:00 PM EDT Clinical Support [facility] MEDICINE [address] [place] [address] 11/23/2024 1:30 PM EDT Office Visit [facility] ADULT DENTAL [address] [place] [address] Cristian Finley DDS [address] [place] [address] 12/26/2024 9:00 AM EDT Office Visit [facility] ADULT DENTAL [address] [place], [place] [phone] Elis Arce documented as of this encounter Visit Diagnoses Not on filedocumented in this encounter Additional Health Concerns Assessment Noted Time PHQ-9 Depression Total Score: 0 08/24/19 23 2:33 PM EST documented as of this encounter Care Teams Staff Nuclear Weapons Officer Relationship Specialty Start Date End Date Zahraa Roca DO [address] [place], [place] [phone] PCP - General Family Medicine 07/25/18 Christian Soria FNP [address] [place] [address] Nurse Practitioner Family Medicine 06/24/23 documented as of this encounter
--- OUTSIDE RECORDS SUMMARY | 2024-10-16 16:42 | XMS_ITS | Encounter Summary ---
Author Organization [email or web address] Address [address] [place] [address] 7 [place] [address] Care Team Providers Care Emr Implementation Specialist Name Role Phone Zahraa Roca DO Primary Care Provider + [phone] Christian Soria Unavailable Unavailable Reason for Visit * Reason Onset Date Comments Med Refill 12/31/2022 Encounter Details Date Type Department Care Team (Late st Contact Info) Description 12/31/[address] [facility] [address] [place], [place] [phone] Zahraa Roca DO [address] [place], [place] [phone] Med Refill Social History Tobacco Use Types [...] Description 11/13/2024 1:00 PM EDT Clinical Support [facility] [address] [place] [address] 11/23/2024 1:30 PM EDT Office Visit [facility] AD[facility] DENTAL [address] [place] [address] Cristian Finley DDS [address] [place] [address] 12/26/2024 9:00 AM EDT Office Visit [facility] [address] [place] [address] Elis Arce documented as of this encounter Visit Diagnoses Not on filedocumented in this encounter Additional Health Concerns Assessment Noted Time PHQ-9 Depression Total Score: 0 08/24/19 23 2:33 PM EST documented as of this encounter Care Teams Emr Implementation Specialist Relationship Specialty Start Date End Date [place] [address] PCP - General Family Medicine 07/25/18 Christian Soria FNP [address] [place] [address] Nurse Practitioner Family Medicine 06/24/23 documented as of this encounter
--- OUTSIDE RECORDS SUMMARY | 2024-10-16 16:42 | XMS_ITS | Encounter Summary ---
Author Organization [employer] Address [address] [facility] 7t [place] [address] Care Team Providers Care Medicaid Analyst Name Role Phone SuryaZahraa lee Primary Care Provider + [phone] Christian Soria Unavailable Unavailable Reason for Visit * Reason Comments DIE CUTTER DIAMOND RV DIE CUTTER DIAMOND RV Encounter Details Date Type Department Care Team (Latest Contact Info) Description 10/11/2024 10:30 AM EDT Clinical Support [address] [address] Mere Rios RN Chronic left-sided low back pain without sciatica (Primary Dx) Social History Tobacco Use Types [...] Progress Notes * Mere Rios RN - 10/11/2024 10:30 AM EDT S: Pt here for DIE CUTTER DIAMOND Revisit. Prescribed Clonazepam 1mg QD. States he has been taking medication as prescribed, last dose taken was this morning. He smokes 1-2 cigarettes daily and has since he was 14 years old. 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 Denies illicit drug use. States he smokes marijuana weekly. He purchases his marijuana from a dispensary only and denies having a medical marijuana card. He is apart of a methadone clinic in [place]. O: DIE CUTTER DIAMOND Tier 1. Pt currently prescribed Clonazepam 1m QD. [employer] verified today. Rx last filled on 09/17/24. Pill count performed. Pt has 3 pills as this time, 3 at least expected. Medication is not over used by patient. UTOX completed. Positive for MTD, OXY & THC, Negative for AMP, BAR, BUP, BZO, JYOTI, FTY, MDMA, MET, MOP, PCP, TCA UTOX not as expected. Reviewed UTOX results with patient. Explained his urine did not show BZO and did show OXY. Pt then stated he was given oxycodone at ER on 10/07/24. Was able to find records from [facility] confirming oxycodone was administered 10/07/24 - see [facility] records uploaded under [employer]. Reviewed with patient his last UTOX from 09/12/24 also was neg BZO and came back from lab as negative BZO as well. Explained to patient he likely will be addressing his u rines at his next PCP visit next week. Will send Clonazepam refill request to PCP and update on UTOX results. Pt asking if he could have another Toradol injection for his pain. Explained to patient he would need to be seen in [facility] to discuss that. Last PCP visit was 06/06/24, scheduled next 10/16/24. A: DIE CUTTER DIAMOND Revisit, Chronic BZO use r/t anxiety. P: Pt to continue taking medication only as prescribed; Next DIE CUTTER DIAMOND RV appointment scheduled for 11/13/24 @ 1pm, F/U sooner PRN. Appointment reminder given. Pt verbalized understanding and agreed to plan. documented in this encounter Plan of Treatment Upcoming Encounters Date Type Department Care Team (Late st Contact Info) Description 11/13/2024 1:00 PM EDT Clinical Support [facility] MEDICINE [address] [place] [address] 11/23/2024 1:30 PM EDT Office Visit [facility] ADULT DENTAL [address] [place] [address] Cristian Finley DDS [address] [place] [address] 12/26/2024 9:00 AM EDT Office Visit [facility] ADULT DENTAL [address] [place] [address] Elis Arce Scheduled Orders Name Type Priority Associated Diagnoses Orde r Schedule Clonazepam And Metabolite Screen, Urine Lab Routine Chronic left-sided low back pain without sciatica Ordered: 10/11/2024 documented as of this encounter Procedures Procedure Name Priority Date/Time Associated Diagnosis Comments POCT MARIO-14 URINE DRUG SCREEN Routine 10/11/2024 11:01 AM EDT Chronic left-sided low back pain without sciatica OXYCODONE SCREEN, URINE Routine 10/11/2024 10:30 AM EDT Chronic left-sided low back pain without sciatica documented in this encounter Results * (ABNORMAL) POCT MARIO-14 Urine Drug Screen (10/11/2024 11:01 AM EDT) THC Positive Benzodiazepines Screen, Urine Negative Methadone Screen, Urine Positive Oxycodone Screen, Urine Positive Urine Urine specimen obtained by clean catch procedure / Unknown 10/11/2024 11:01 AM EDT Narrative Mere Rios RN - 10/11/2024 11:01 AM EDT UTOX cup Lot#[id number] Exp. 03/13/26 Internal Pass Control Zahraa Roca DO POINT OF CARE TEST ENTER/JOANNA T ORDERABLES Final Result * (ABNORMAL) Oxycodone Screen, Urine (10/11/2024 10:30 AM EDT) Oxycodone Urine Screen Positive( A) Not Detect ng/mL [facility] Comment:Oxycodone cut-off is 100 ng/mL.Positive results are unconfirmed and should not be used fornon-medical purposes. Urine 10/11/2024 10:3 0 AM EDT 10/11/2024 7:25 PM EDT Zahraa Roca DO LAB URINE ORDERABLES Final R esult [facility] [address] [place] [address] [phone] documented in this encounter Visit Diagnoses Diagnosis Chronic left-sided low back pain without sciatica- Primary documented in this encounter Additional Health Concerns Assessment Noted Time PHQ-9 Depression Total Score: 0 11/28/19 24 11:23 AM EDT documented as of this encounter Care Teams Medicaid Analyst Relationship Specialty Start Date End Date Zahraa Roca DO [address] [place] [address] PCP - General Family Medicine 07/25/18 Christian Soria FNP [address] [place] [address] Nurse Practitioner Family Medicine 06/24/23 documented as of this encounter
--- OUTSIDE RECORDS SUMMARY | 2024-10-16 16:42 | XMS_ITS | Encounter Summary ---
Author Organization [employer] Address [address] [facility] 7t [place] [address] Care Team Providers Care Sheet Hanger Name Role Phone Zahraa Roca DO Primary Care Provider + [phone] Christian Soria Unavailable Unavailable Reason for Visit * Reason Comments Care Coordination CHW outreach for SDO H PT-1 and food needs-referral completed Encounter Details Date Type Department Care Team (Latest Contact Info) Description 10/09/2024 Patient Outreach [facility] MEDICINE [address] [place] [address] Zahraa Roca DO [address] [place], [place] [phone] Care Coordination (CHW outreach for SDOH PT-1 [...] encounter Progress Notes * Ayan Caro - 10/09/2024 9:56 AM EDT CHW Ayan Caro, placed outbound call to patient for assistance with SDOH as a referral was received by the provider. Patient's name and were confirmed. Patient screened positive for the following SDOH food insecurities. Patient states family in on SNAP program at this time. CHW referral patient to the local list of pantries in the area for help. PT-1 requested was send out in behalf of patient for futures appt. [facility]one Clinic [address] [place] [address]. Patient verbalizes understanding, and able to agree with plan to follow up. documented in this encounter Plan of Treatment Upcoming Encounters Date Type Department Care Team (Late st Contact Info) Description 11/13/2024 1:00 PM EDT Clinical Support [facility] MEDICINE [address] [place] [address] 11/23/2024 1:30 PM EDT Office Visit [facility] ADULT DENTAL [address] [place] [address] Cristian Finley DDS [address] [place] [address] 12/26/2024 9:00 AM EDT Office Visit [facility] ADULT DENTAL [address] [place] [address] Elis Arce documented as of this encounter Visit Diagnoses Not on filedocumented in this encounter Additional Health Concerns Assessment Noted Time PHQ-9 Depression Total Score: 0 11/28/19 24 11:23 AM EDT documented as of this encounter Care Teams Sheet Hanger Relationship Specialty Start Date End Date Zahraa Roca DO [address] [place] [address] PCP - General Family Medicine 07/25/18 Christian Soria FNP [address] [place] [address] Nurse Practitioner Family Medicine 06/24/23 documented as of this encounter
--- OUTSIDE RECORDS SUMMARY | 2024-10-16 16:42 | XMS_ITS | Encounter Summary ---
Author Organization [employer] Address [address] [facility] [address]t [place] [address] Care Team Providers Care Rn Cardiovascular Icu Name Role Phone Zahraa Roca DO Primary Care Provider + [phone] Christian Soria Unavailable Unavailable Encounter Details Date Type Department Care Team (Late st Contact Info) Description 10/10/2024 Orders Only [facility] [address] [place], [place] [phone] Zahraa Roca DO [address] [place] [address] Social History Tobacco Use Types Packs/Day Years [...] EDT Clinical Support [facility] [address] [place] [address] 11/23/2024 1:30 PM EDT Office Visit [facility] ADULT DENTAL [address] [place] [address] Cristian Finley DDS [address] [place] [address] 12/26/2024 9:00 AM EDT Office Visit [facility] ADULT [facility] [address] [place] [address] Elis Arce documented as of this encounter Visit Diagnoses Not on filedocumented in this encounter Additional Health Concerns Assessment Noted Time PHQ-9 Depression Total Score: 0 11/28/19 24 11:23 AM EDT documented as of this encounter Care Teams Rn Cardiovascular Icu Relationship Specialty Start Date End Date Zahraa Roca DO [address] [place] [address] PCP - General Family Medicine 07/25/18 Christian Soria FNP [address] [place] [address] Nurse Practitioner Family Medicine 06/24/23 documented as of this encounter
--- OUTSIDE RECORDS SUMMARY | 2024-10-16 16:42 | XMS_ITS | Encounter Summary ---
Author Organization [employer] Address [address] [facility] 7t [place] [address] Care Team Providers Care Drug Abuse Worker Name Role Phone Zahraa Roca DO Primary Care Provider + [phone] Christian Soria Unavailable Unavailable Reason for Visit * Reason Comments Transition Of Care (Tcm) HDF- scheduled and SDOH screening negative and Tobacco screening positive Encounter Details Date Type Department Care Team ([facility] st Contact Info) Description 10/08/2024 Patient Outreach [facility] MEDICINE [address] [place] [address] Zahraa Roca DO [address] [place], [place] [phone] Transition Of Care (Tcm) (HDF- scheduled and SDOH screening negative and Tobacco screening positive) Social History Tobacco Use Types Packs/Day Years [...] as of this encounter Progress Notes * Jose Domingo RN - 10/08/2024 8:27 AM EDT TC placed to patient in regards to below message. Patient reported no pain relief with taking Gabapentin 300 mg at bedtime prescribed from [facility] hospitalization. Patient also looking for VNA services due to not wanting to come in for [facility] appts. Pt would like VNA to count pills and also reports having increased amount of upcoming appts therefore looking to eliminate [facility] appointments. Pt also lookingfor a referral to PT. Pt advised PT referral and VNA discussion to be held at 10/19/24 appointment as chart notes are required. Pt advised that RN will talk to PCP regarding pain medications POC and return call to patient. Pt verbalized understanding. No questions or concerns at this time. Pt will F/U PRN. * Jose Domingo RN - 10/08/2024 8:27 AM EDT TC placed to patient [phone] in regards to scheduled appt to be changed to 10/16/24 at 1145am with PCP. Due to needing to discuss pain medication, patient reported no pain relief while taking prescribed Gabapentin. Per PCP patient needs an appt to discuss further alternative pain medications. Pt to F/U PRN. documented in this encounter Miscellaneous Notes * Significant Event - Salud Ernst - 10/08/2024 8:41 AM EDT 10/08/24 0828 Hospital Discharges and Admission for [facility] Type of Visit Hospital Admission Date of Admission/Visit 10/06/24 Date of Discharge 10/07/24 Facility [facility] Diagnosis Lumbar radiculopathy, chronic, Opioid use disorder in remission, Bilateral hydrocele Disposition Discharged Home Follow-Up Actions Follow-Up Needed Provider appointment Follow-Up Outcome Spoke to Patient;Booked Appointment Initial Contact Date 10/08/24 CC Salud Henao placed outbound call to patient for HDF outreach. Patient's name and were confirmed. Patient educated on the importance of follow up with provider following inpatient admission. Patient offered an HDF appt. Patient is agreeable to an appointment and has been scheduled for 10/19/2024t 1:30pm with . Insurance verified prior to scheduling. Patient advised to bring to appointment a photo id and insurance card. [facility] also [facility] will be reaching out to them via telephone prior to their scheduled appointment in order to review their medications in preparation for their 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 Patient provided with education on contacting the Health Center with any questions or concerns prior to the scheduled 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 Patient educated on extended clinic hours on Mondays and Wednesdays, and Walk-In Urgent Care Located in [facility] of [facility]. Patient provided with after-hours line for [facility], , which offer night time triage service and option to transfer to automotive airconditioning mechanic provider if needed. CC scanned discharge summary into patient's chart . Biggest concern for appointment at this time is requesting pain meds, physical therapy and VNA services. Patient requesting a call from nurse. Message sent to team nurses to follow up with patient.Appropriate screenings completed in anticipation of 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 documented in this encounter Plan of Treatment Upcoming Encounters Date Type Department Care Team (Late st Contact Info) Description 11/13/2024 1:00 PM EDT Clinical Support [facility] MEDICINE [address] [place] [address] 11/23/2024 1:30 PM EDT Office Visit [facility] ADULT DENTAL [address] [place] [address] Cristian Finley DDS [address] [place] [address] 12/26/2024 9:00 AM EDT Office Visit [facility] ADULT DENTAL [address] [place] [address] Elis Arce documented as of this encounter Visit Diagnoses Not on filedocumented in this encounter Additional Health Concerns Assessment Noted Time PHQ-9 Depression Total Score: 0 11/28/19 24 11:23 AM EDT documented as of this encounter Care Teams Drug Abuse Worker Relationship Specialty Start Date End Date Zahraa Roca DO [address] [place] [address] PCP - General Family Medicine 07/25/18 Christian Soria FNP [address] [place] [address] Nurse Practitioner Family Medicine 06/24/23 documented as of this encounter
--- OUTSIDE RECORDS SUMMARY | 2024-10-16 16:42 | XMS_ITS | Encounter Summary ---
Author Organization [employer] Address [address] [facility] [address] 7t [place] [address] Care Team Providers Care Elevator Operator Name Role Phone Zahraa Roca DO Primary Care Provider + [phone] Christian Soria Unavailable Unavailable Encounter Details Date Type Department Care Team (Late st Contact Info) Description 10/11/2024 Orders Only [facility] MEDICINE [address] [place], [place] [phone] Zahraa Roca DO [address] [place] [address] Social History Tobacco Use Types Packs/Day Years [...] 11/13/2024 1:00 PM EDT Clinical Support [facility] MEDICINE [address] [place] [address] 11/23/2024 1:30 PM EDT Office Visit [facility] ADULT DENTAL [address] [place] [address] Cristian Finley, BANDAR [address] [place] [address] 12/26/2024 9:00 AM EDT Office Visit [facility] ADULT DENTAL [address] [place] [address] Elis Arce documented as of this encounter Procedures Procedure Name Priority Date/Time Associated Diagnosis Comments DRUG MONITORING, BENZODIAZEPINES, QUANTITATIVE, URINE Routine 10/11/2024 10:30 AM EDT documented in this encounter Results * Drug Monitoring, Benzodiazepines, Quantitative, Urine (10/11/2024 10:30 AM EDT) Nordiazepam, GCMS Urine NEGATIVE [facility] Oxazepam, GCMS Urine NEGATIVE [facility] Lorazepam GCMS Urine NEGATIVE [facility] Alprazolam, GCMS Urine NEGATIVE [facility] Alphahydroxytriazolam , GCMS Ur NEGATIVE [facility] Temazepam, GCMS Urine NEGATIVE [facility] Alphahydroxymidazolam ,GCMS Ur NEGATIVE [facility] Aminoclonazepam, GCMS Urine 66 [facility] Comment:REFERENCE RANGE: <25 ng/mL Flurazepam Metabolite,GCMS Ur NEGATIVE [facility] Benzodiazepines Comments SEE NOTE [facility] Comment:This drug testing is for medical treatment only. Analysiswas performed as non-forensic testing and these resultsshould be used only by healthcare providers to renderdiagnosis or treatment, or to monitor progress of medicalconditions.Benzodiazepines Notes:Aminoclonazepam detected is consistent with the use of thedrug Clonazepam.LDT Notes:Confirmation tests were developed and their analyticalperformance characteristics have been determined by [employer]. It has not been cleared or approved by the FDA.This assay has been validated pursuant to the CLIAregulations and is used for clinical purposes.Healthcare Providers needing Interpretation assistance,please contact us at [phone] ( ) M-F,8am to 10pm ESTTHIS TEST PERFORMED AT:[facility] [address] [phone] DIRECTOR: SOCRATES MATHIAS MD 10/11/2024 10:3 0 AM EDT 10/11/2024 7:21 PM EDT us Zahraa Roca DO LAB URINE ORDERABLES Final R esult [facility] [address] [place] [address] [phone] documented in this encounter Visit Diagnoses Not on filedocumented in this encounter Additional Health Concerns Assessment Noted Time PHQ-9 Depression Total Score: 0 11/28/19 24 11:23 AM EDT documented as of this encounter Care Teams Elevator Operator Relationship Specialty Start Date End Date Zahraa Roca DO [address] [place] [phone] PCP - General Family Medicine 07/25/18 Christian Soria FNP [address] [place] [address] Nurse Practitioner Family Medicine 06/24/23 documented as of this encounter
--- OUTSIDE RECORDS SUMMARY | 2024-10-16 16:42 | XMS_ITS | Encounter Summary ---
Author Organization [employer] Address [address] [facility] 7t [place] [address] Care Team Providers Care Forge Helper Name Role Phone Zahraa Roca DO Primary Care Provider + [phone] Christian Soria Unavailable Unavailable Reason for Visit * Reason Comments Transition Of Care (Tcm) Encounter Details Date Type Department Care Team ([facility] st Contact Info) Description 09/17/2024 Patient Outreach [facility] MEDICINE [address] [place], [place] [phone] Zahraa Roca DO [address] [place] [address] Transition Of Care (Tcm) Social History Tobacco [...] a recent transition of care. * Yanira Panye RN - 09/17/2024 10:17 AM EST Hospital Discharges and Admission for [facility] Type of Visit: Emergency Department Date of Admission/Visit: 09/15/24 Date of Discharge: 09/15/24 Facility: [facility] Diagnosis: Viral upper respiratory infection, Costochondritis Disposition: Discharged Home Follow-Up Actions Follow-Up Needed: None/self-monitoring Follow-Up Outcome: Left Voicemail (VM full) Initial Contact Date: 09/17/24 Patient Contacted: Unable to leave message, full Patient Status: unknown, RN was unable to speak to patient The full discharge summary is Is available under media scanned document Review Flowsheet [facility] Transition of Care Documentation Type of Visit Date of Admission/Visit Date of Discharge Facility Diagnosis Disposition 07/29/2023 9:58 AM Hospital Admission 07/26/2023 07/28/2023 [facility] S/P total left hip arthroplastyDischarged Home 07/24/2024 12:50 PM Emergency Department 07/23/2024 07/23/2024 [facility] R foot pain Discharged Home 07/26/2024 9:00 AM Emergency Department 07/23/2024 07/23/2024 [facility] Peripheral Vascular Disease and Venous insufficiency Discharged Home 09/17/2024 10:17 AM Emergency Department 09/15/2024 09/15/2024 [facility] Viral upper respiratory infection, Costochondritis Discharged Home Recent Visits Date Type Provider Dept 06/06/24 Office Visit Zahraa Roca DO [facility] Medicine 03/12/24 Office Visit Zahraa Roca DO [facility] Medicine 10/19/23 Office Visit Zahraa Roca DO [facility] Medicine Showing recent visits within past [...] Description 11/13/2024 1:00 PM EDT Clinical Support [facility] MEDICINE [address] [place] [address] 11/23/2024 1:30 PM EDT Office Visit [facility] ADULT DENTAL [address] [place] [address] Cristian Finley DDS [address] [place] [address] 12/26/2024 9:00 AM EDT Office Visit [facility] ADULT DENTAL [address] [place] [address] Elis Arce documented as of this encounter Visit Diagnoses Not on filedocumented in this encounter Additional Health Concerns Assessment Noted Time PHQ-9 Depression Total Score: 0 11/28/19 11:23 AM EDT documented as of this encounter Care Teams Forge Helper Relationship Specialty Start Date End Date Zahraa Roca DO [address] [place] [address] PCP - General Family Medicine 07/25/18 Christian Soria FNP [address] [place] [address] Nurse Practitioner Family Medicine 06/24/23 documented as of this encounter
== END 2024-10-16 13:33 | disposition home or self-care (01) ==
LOC: HO.HHCX 13:32
PROVIDERS: Visit Provider Family Medicine
DX: M54.50 Low back pain, unspecified (principal); G89.29 Other chronic pain
CPT/HCPCS: 72070

== ENCOUNTER → 2024-10-16 13:36 | Outpatient (BNV) | payer MEDICARE, MEDICAID, SELFPAY | PROVIDERS: Visit Provider Radiology Diagnostic Radiology | DX: M54.6 Pain in thoracic spine (principal) | CPT/HCPCS: 72070 ==

== ENCOUNTER 2024-10-19 09:13 | Day surgery (SDC) | payer MEDICARE, MEDICAID, SELFPAY ==
--- OUTSIDE RECORDS SUMMARY | 2024-10-05 16:17 | XMS_ITS | Encounter Summary ---
Author Organization [employer] Address [address] 7t [place] [address] Care Team Providers Care Word Processing Operator Name Role Phone YudiZahraa barahona Primary Care Provider + [phone] Christian Soria Unavailable Unavailable Encounter Details Date [...] 10:30 AM EDT Clinical Support [facility] MEDICINE 230 [place] [address] Mere Rios RN documented as of this encounter Visit Diagnoses Not on filedocumented in this encounter Additional Health Concerns Assessment Noted Time PHQ-9 Depression Total Score: 0 11/28/19 24 11:23 AM EDT documented as of this encounter Care Teams Word Processing Operator Relationship Specialty Start Date End Date Zahraa Roca DO 230 [place] [address] PCP - General Family Medicine 07/25/18 Christian Soria FNP [address] [place] [address] Nurse Practitioner Family Medicine 06/24/23 documented as of this encounter
--- OUTSIDE RECORDS SUMMARY | 2024-10-05 16:17 | XMS_ITS | Encounter Summary ---
Author Organization [employer] Address [address] [facility] 7t [place] [address] Care Team Providers Care Bend Up Name Role Phone AbelinoZahraa Primary Care Provider + [phone] Christian Soria Unavailable Unavailable Encounter Details Date Type Department Care Team ([facility] st Contact Info) Description 10/05/2024 Population Health Risk Score [facility] () Department [address] [phone] Provider, Population Health Generic Social History Tobacco [...] 10:30 AM EDT Clinical Support [facility] MEDICINE 230 [place] [address] Mere Rios RN documented as of this encounter Visit Diagnoses Not on filedocumented in this encounter Additional Health Concerns Assessment Noted Time PHQ-9 Depression Total Score: 0 11/28/19 11:23 AM EDT documented as of this encounter Care Teams Bend Up Relationship Specialty Start Date End Date Zahraa Roca DO [address] [place] [address] PCP - General Family Medicine 07/25/18 Christian Soria FNP [address] [place] [address] Nurse Practitioner Family Medicine 06/24/23 documented as of this encounter
--- OUTSIDE RECORDS SUMMARY | 2024-10-05 16:17 | XMS_ITS | Encounter Summary ---
Author Organization [employer] Address 75 [facility] 7t [place] [address] Care Team Providers Care Machine Filler Shredder Name Role Phone Zahraa Roca DO Primary Care Provider + [phone] Christian Soria Unavailable Unavailable Reason for Visit * Reason Onset Date Comments Nurse Triage 10/04/2024 Encounter Details Date Type Department Care Team ([facility] st Contact Info) Description 10/04/2024 Telephone [facility] MEDICINE 230 [place], [place] [phone] Zahraa Roca DO 230 [place], [place] [phone] Nurse Triage Social History Tobacco Use Types [...] Team appts. Available at time of call. [facility] hours and availability provided [...] caller accepted this outcome. Contact pt at [phone] documented in this encounter Plan of Treatment Upcoming Encounters Date Type Department Care Team (Late st Contact Info) Description 10/11/2024 10:30 AM EDT Clinical Support [facility] MEDICINE [address] [place] [address] Mere Rios RN documented as of this encounter Visit Diagnoses Not on filedocumented in this encounter Additional Health Concerns Assessment Noted Time PHQ-9 Depression Total Score: 0 11/28/19 24 11:23 AM EDT documented as of this encounter Care Teams Machine Filler Shredder Relationship Specialty Start Date End Date Zahraa Roca DO [address] [place] [address] PCP - General Family Medicine 07/25/18 Christian Soria FNP [address] [place] [address] Nurse Practitioner Family Medicine 06/24/23 documented as of this encounter
--- OUTSIDE RECORDS SUMMARY | 2024-10-05 16:18 | XMS_ITS | Encounter Summary ---
Author Organization [employer] Address [address] [facility] 7t [place] [address] Care Team Providers Care Battalion Fire Chief Name Role Phone Zahraa Roca DO Primary Care Provider + [phone] Christian Soria Unavailable Unavailable Reason for Visit * Reason Onset Date Comments PT-1 03/15/2024 Encounter Details Date Type Department Care Team ([facility] st Contact Info) Description 03/15/2024 Telephone [facility] MEDICINE 230 [place], [place] [phone] Zahraa Roca DO 230 [place], [place] [phone] PT-1 Social History Tobacco Use Types Packs/Day [...] Y/N: Yes Provider name or facility name: [facility] Facility Address: [address] [place] [address] Escort needed: Y/N: No Do you have a wheelchair: Y/N: No If yes- Manual or electric: no Visits: 3 documented in this encounter Plan of Treatment Upcoming Encounters Date Type Department Care Team (Late st Contact Info) Description 10/11/2024 10:30 AM EDT Clinical Support [facility] MEDICINE 230 [place] [address] Mere Rios RN documented as of this encounter Visit Diagnoses Not on filedocumented in this encounter Additional Health Concerns Assessment Noted Time PHQ-9 Depression Total Score: 0 11/28/19 24 11:23 AM EDT documented as of this encounter Care Teams Battalion Fire Chief Relationship Specialty Start Date End Date Zahraa Roca DO 230 [place] [address] PCP - General Family Medicine 07/25/18 Christian Soria FNP [address] [place] [address] Nurse Practitioner Family Medicine 06/24/23 documented as of this encounter
--- OUTSIDE RECORDS SUMMARY | 2024-10-05 16:18 | XMS_ITS | Encounter Summary ---
Author Organization [employer] 2014[employer] Address [address] [facility] [address] 7t [place] [address] Care Team Providers Care Call Or Contact Centre Operator Name Role Phone YudiZahraa barahnoa Primary Care Provider + [phone] Christian Soria Unavailable Unavailable Encounter Details Date [...] 10/11/2024 10:30 AM EDT Clinical Support [address] [address] Mere Rios RN documented as of this encounter Procedures Procedure Name Priority Date/Time Associated Diagnosis Comments GROSS AND MICROSCOPIC LEVEL 3 Routine 09/19/2024 9:00 AM EST documented in this encounter Results * Gross and Microscopic Level 3 (09/19/2024 9:00 AM EST) 09/19/2024 9:00 AM EST 09/19/2024 12:05 PM EST [facility]S - 09/20/2024 3:24 PM EST ----- ------- Name: Cristobal Enriquez ? Age/Sex: 54/M ? : 1970 Unit#: [id number] ?? Attend Dr: Sergei Christine MD ?Re09/19/24 ?Status: DEP REF ? Location: HO.LNP ?Disch: ? ----- ------- SPEC : [id number] ? RECD: 09/19/24-1204 ? STATUS: ??SOUT ? REQ NUM: [id number] ? NGA: 09/19/24-899 ? SUBM DR: Sergei [...] ? Age/Sex: 54/M ? : 1970 Unit#: [id number] ?? Attend Dr: Sergei Christine MD ?Re09/19/24 ?Status: DEP REF ? Location: HO.LNP ?Disch: ? ----- ------- SPEC : [id number] ? RECD: 09/19/24 ? STATUS: ??SOUT ? REQ NUM: [id number] ? NGA: 09/19/24 ? SUBM DR: Sergei Christine MD ? ENTERED: ??09/19/24 ?SP TYPE: Surgical ? OTHR DR: Zahraa Roca DO ? ORDERED: ??Gross Micro L3/2 ? Gross Description ?(Continued) CEDS This case was reviewed intradepartmentally. ??Results given to Dr. Christine by secure text by Dr. Naik on 09/20/24 at 3:22 pm. Copies To: ?? Zahraa Roca DO ?? [facility] ?? [address] [facility] ?? [place] [employer] [address] ?? [phone] ?? Sergei Christine MD ?? [facility] ?? [address] ?? [place] [address] ?? [phone] ?? [email or web address] ----- ------- Signed (signature on file) Lore Naik 09/20/24 1524 ? ----- ------- ? END OF REPORT ? us Generic External Data Provider LAB CYTOLOGY BRIAN SANCHEZ Final Result [facility] [address] [facility] [place] [address] [phone] documented in this encounter Visit Diagnoses Not on filedocumented in this encounter Additional Health Concerns Assessment Noted Time PHQ-9 Depression Total Score: 0 11/28/19 24 11:23 AM EDT documented as of this encounter Care Teams Call Or Contact Centre Operator Relationship Specialty Start Date End Date Zahraa Roca DO 230 [place] [address] PCP - General Family Medicine 07/25/18 Christian Soria FNP 230 [place] [address] Nurse Practitioner Family Medicine 06/24/23 documented as of this encounter
--- OUTSIDE RECORDS SUMMARY | 2024-10-05 16:18 | XMS_ITS | Encounter Summary ---
Author Organization [employer] Address [address] [place] [address] 7 [place] [address] Care Team Providers Care Washtub Worker Name Role Phone Zahraa Roca DO Primary Care Provider + [phone] Christian Soria Unavailable Unavailable Encounter Details Date Type Department Care Team (Late st Contact Info) Description 08/31/2022 Abstract [facility] MEDICINE [address] [place] [address] Zahraa Roca DO [address] [place] [address] Social History Tobacco Use Types Packs/Day Years [...] Description 10/11/2024 10:30 AM EDT Clinical Support [facility] MEDICINE [address] [place] [address] Mere Rios RN documented as of this encounter Visit Diagnoses Not on filedocumented in this encounter Additional Health Concerns Assessment Noted Time PHQ-9 Depression Total Score: 0 08/24/19 23 2:33 PM EST documented as of this encounter Care Teams Washtub Worker Relationship Specialty Start Date End Date Zahraa Roca DO 230 [place] [address] PCP - General Family Medicine 07/25/18 Christian Soria FNP [address] [place] [address] Nurse Practitioner Family Medicine 06/24/23 documented as of this encounter
--- OUTSIDE RECORDS SUMMARY | 2024-10-05 16:18 | XMS_ITS | Encounter Summary ---
Author Organization [employer] Address [address] [facility] 7t [place] [address] Care Team Providers Care Oncology Technician Name Role Phone Zahraa Roca DO Primary Care Provider + [phone] Christian Soria Unavailable Unavailable Reason for Visit * Reason Comments Care Coordination CHW outreach for SDO H PT-1 and food needs-referral completed Encounter Details Date Type Department Care Team (Latest Contact Info) Description 10/01/2024 Patient Outreach [facility] MEDICINE 230 [place] [address] Zahraa Roca DO 230 [place], [place] [phone] Care Coordination (CHW outreach for SDOH PT-1 [...] send out in behalf of patient for [facility] appt. Patient verbalizes understandin g, and able to agree with plan to follow up. Patient educated on extended clinic hours on Mondays through Wednesdays, and Walk-In Urgent Care Located in [facility] of [facility]. Patient provided with after-hours line for [facility], , which offer night time triage service and option to transfer to medicaid collection specialist provider if needed. documented in this encounter Plan of Treatment Upcoming Encounters Date Type Department Care Team (Late st Contact Info) Description 10/11/2024 10:30 AM EDT Clinical Support [facility] MEDICINE 230 [place] [address] Mere Rios, HENRIK documented as of this encounter Visit Diagnoses Not on filedocumented in this encounter Additional Health Concerns Assessment Noted Time PHQ-9 Depression Total Score: 0 11/28/19 24 11:23 AM EDT documented as of this encounter Care Teams Oncology Technician Relationship Specialty Start Date End Date Zahraa Roca DO [address] [place] [address] PCP - General Family Medicine 07/25/18 Christian Soria FNP [address] [place] [address] Nurse Practitioner Family Medicine 06/24/23 documented as of this encounter
--- OUTSIDE RECORDS SUMMARY | 2024-10-05 16:18 | XMS_ITS | Encounter Summary ---
Author Organization [employer] Address 75 [facility] 7t [place] [address] Care Team Providers Care Criminal Justice Department Chair Name Role Phone Zahraa Roca DO Primary Care Provider + [phone] Christian Soria Unavailable Unavailable Reason for Visit * Reason Onset Date Comments PT-1 10/02/2024 Encounter Details Date Type Department Care Team ([facility] st Contact Info) Description 10/02/[address] [facility] MEDICINE 230 [place], [place] [phone] Zahraa Roca DO 230 [place], [place] [phone] PT-1 Social History Tobacco Use Types Packs/Day [...] Y/N: Yes Provider name or facility name: [facility] [address] [address] Escort needed: Y/N: No Do you have a wheelchair: Y/N: No If yes- Manual or electric: Visits: (7 Days x Weekly) documented in this encounter Plan of Treatment Upcoming Encounters Date Type Department Care Team (Late st Contact Info) Description 10/11/2024 10:30 AM EDT Clinical Support [facility] MEDICINE 230 [place] [address] Mere Rios RN documented as of this encounter Visit Diagnoses Not on filedocumented in this encounter Additional Health Concerns Assessment Noted Time PHQ-9 Depression Total Score: 0 11/28/19 11:23 AM EDT documented as of this encounter Care Teams Criminal Justice Department Chair Relationship Specialty Start Date End Date Zahraa Roca DO 230 [place] [address] PCP - General Family Medicine 07/25/18 Christian Soria FNP 230 [place] [address] Nurse Practitioner Family Medicine 06/24/23 documented as of this encounter
--- OUTSIDE RECORDS SUMMARY | 2024-10-05 16:18 | XMS_ITS | Encounter Summary ---
Author Organization [employer] Address 75 [facility] 7t [place] [address] Care Team Providers Care Auto Bench Mechanic Name Role Phone Zahraa Roca DO Primary Care Provider + [phone] Christian Soria Unavailable Unavailable Reason for Referral * Consultation (Routine) - Authorized Specialty Diagnoses / Procedures Referred By Contac t Referred To Contact Pain Medicine Diagnoses Chronic left-sided low back pain without sciatica Marcos Mckeon MD [address] [place] [address] Phone: tel: fax: [address] Phone: tel: fax: Referral ID Status Reason Start Date Expiration Date Visits Requested Visits Authorized [id number] Authorized Specialty Services Required 10/05/2024 10/05/2025 1 1 * Consultation (Routine) - Closed Specialty Diagnoses / Procedures Referred By Contac t Referred To Contact General Surgery Diagnoses Right buttock pain Marcos Mckeon MD [address] [place] [address] Phone: tel: fax: Sergei Christine MD [address] [place] [address] Phone: tel: fax: Referral ID Status Reason Start Date Expiration Date V isits Requested Visits Authorized [id number] Closed Specialty Services Required 10/05/2024 10/05/2025 1 1 Encounter Details Date Type Department Care Team (Late st Contact Info) Description 10/05/2024 Telephone [facility] 230 [place] [address] Marcos Mckeon MD 230 [place] [address] Social History Tobacco Use Types Packs/Day Years [...] encounter Miscellaneous Notes * Telephone Encounter - Marcos Mckeon MD - 10/05/2024 2:29 PM EDT I notified Cristobal of today's x-ray reports, and referred him to pain management and also Dr. Christine regarding the buttock pain. Cristobal said that he started experiencing chest pain after the [facility] visit; I advised returning to [facility] or going to the ED now for evaluation. documented in this encounter Plan of Treatment Upcoming Encounters Date Type Department Care Team (Late st Contact Info) Description 10/11/2024 10:30 AM EDT Clinical Support [facility] MEDICINE 230 [place] [address] Mere Rios RN Scheduled Referrals Name Type Priority Associated Diagnoses Orde r Schedule Referral to General Surgery Outpatient Referral Routine Right buttock pain Expected: 10/05/2024 (Approximate), Expires: 10/05/2025 Referral to Pain Medicine Outpatient Referral Routine Chronic left-sided low back pain without sciatica Expected: 10/05/2024 (Approximate), Expires: 10/05/2025 documented as of this encounter Visit Diagnoses Diagnosis Chronic left-sided low back pain without sciatica- Primary Right buttock pain Unspecified myalgia and myositis documented in this encounter Additional Health Concerns Assessment Noted Time PHQ-9 Depression Total Score: 0 11/28/19 24 11:23 AM EDT documented as of this encounter Care Teams Auto Bench Mechanic Relationship Specialty Start Date End Date Zahraa Roca DO 230 [place] [address] PCP - General Family Medicine 07/25/18 Christian Soria FNP [address] [place] [address] Nurse Practitioner Family Medicine 06/24/23 documented as of this encounter
--- OUTSIDE RECORDS SUMMARY | 2024-10-05 16:18 | XMS_ITS | Encounter Summary ---
Author Organization [employer] Address 75 [facility] 7t [place] [address] Care Team Providers Care Wholesale Agronomist Name Role Phone Zahraa Roca DO Primary Care Provider + [phone] Christian Soria Unavailable Unavailable Reason for Visit * Reason Onset Date Comments Appointment Request 06/19/2024 Encounter Details Date Type Department Care Team ([facility] Contact Info) Description 06/19/2024 Telephone [facility] 230 [place], [place] [phone] Zahraa Roca DO 230 [place], [place] [phone] Appointment Request Social History Tobacco Use Types [...] EDT Clinical Support [facility] [address] [place] [address] Mere Rios RN documented as of this encounter Visit Diagnoses Not on filedocumented in this encounter Additional Health Concerns Assessment Noted Time PHQ-9 Depression Total Score: 0 11/28/19 11:23 AM EDT documented as of this encounter Care Teams Wholesale Agronomist Relationship Specialty Start Date End Date Zahraa Roca DO 230 [place] [address] PCP - General Family Medicine 07/25/18 Christian Soria FNP 230 [place] [address] Nurse Practitioner Family Medicine 06/24/23 documented as of this encounter
--- OUTSIDE RECORDS SUMMARY | 2024-10-05 16:18 | XMS_ITS | Encounter Summary ---
Author Organization [employer] Address 75 [facility] 7t [place] [address] Care Team Providers Care Vocational Nurse Name Role Phone Zahraa Roca DO Primary Care Provider + [phone] Christian Soria Unavailable Unavailable Reason for Visit * Reason Onset Date Comments PT-1 07/13/2024 Encounter Details Date Type Department Care Team ([facility] st Contact Info) Description 07/13/2024 Telephone [facility] MEDICINE 230 [place], [place] [phone] Zahraa Roca DO 230 [place], [place] [phone] PT-1 Social History Tobacco Use Types Packs/Day [...] Yes Provider name or facility name: [facility] Escort needed: Y/N: No Do you have a wheelchair: Y/N: No If yes- Manual or electric: Visits: (3x Monthly) documented in this encounter Plan of Treatment Upcoming Encounters Date Type Department Care Team (Late st Contact Info) Description 10/11/2024 10:30 AM EDT Clinical Support [facility] MEDICINE 230 [place] [address] Mere Rios, HENRIK documented as of this encounter Visit Diagnoses Not on filedocumented in this encounter Additional Health Concerns Assessment Noted Time PHQ-9 Depression Total Score: 0 11/28/19 24 11:23 AM EDT documented as of this encounter Care Teams Vocational Nurse Relationship Specialty Start Date End Date Zahraa Roca DO [address] [place] [address] PCP - General Family Medicine 07/25/18 Christian Soria FNP 230 [place] [address] Nurse Practitioner Family Medicine 06/24/23 documented as of this encounter
--- OUTSIDE RECORDS SUMMARY | 2024-10-05 16:18 | XMS_ITS | Encounter Summary ---
Author Organization [employer] Address [address] [facility] [address] [place] [address] Care Team Providers Care Winding Lathe Operator Name Role Phone Zahraa Roca DO Primary Care Provider + [phone] Christian Soria Unavailable Unavailable Reason for Visit * Reason Onset Date Comments Appt question 08/09/2024 Encounter Details Date Type Department Care Team ([facility] st Contact Info) Description 08/09/2024 Telephone [facility] [address], [place] [phone] Zahraa Roca DO [address] [place], [place] [phone] Appt question Social History Tobacco Use Types [...] aug appt its for that. Any questions [phone] documented in this encounter Plan of Treatment Upcoming Encounters Date Type Department Care Team (Late st Contact Info) Description 10/11/2024 10:30 AM EDT Clinical Support [facility] [address] [place] [address] Mere Rios RN documented as of this encounter Visit Diagnoses Not on filedocumented in this encounter Additional Health Concerns Assessment Noted Time PHQ-9 Depression Total Score: 0 11/28/19 24 11:23 AM EDT documented as of this encounter Care Teams Winding Lathe Operator Relationship Specialty Start Date End Date Zahraa Roca DO [address] [place] [address] PCP - General Family Medicine 07/25/18 Christian Soria FNP [address] [place] [address] Nurse Practitioner Family Medicine 06/24/23 documented as of this encounter
--- OUTSIDE RECORDS SUMMARY | 2024-10-05 16:18 | XMS_ITS | Encounter Summary ---
Author Organization [employer] Address [address] [facility] [address] [facility] [address] [place] [address] Care Team Providers Care Oven Worker Name Role Phone AbelinoZahraa Primary Care Provider + [phone] Christian Soria Unavailable Unavailable Encounter Details Date Type Department Care Team (Late st Contact Info) Description 11/03/2023 Orders Only [facility] [address] [place], [place] [phone] ProviderHiral MD Social History Tobacco Use Types [...] Description 10/11/2024 10:30 AM EDT Clinical Support [facility] [address] [place] [address] Mere Rios RN documented as of this [...] documented as of this encounter Care Teams Oven Worker Relationship Specialty Start Date End Date Zahraa Roca DO [address] [place] [address] PCP - General Family Medicine 07/25/18 Christian Soria FNP [address] [place] [id number] Nurse Practitioner Family Medicine 06/24/23 documented as of this encounter
--- OUTSIDE RECORDS SUMMARY | 2024-10-05 16:18 | XMS_ITS | Clinical Summary ---
Author Organization [employer] Address [address] [facility] 7[address] [place] [address] Care Team Providers Care Net Washer Name Role Phone Abelino Zahraa Primary Care Provider + [phone] Christian Soria Unavailable Unavailable Allergies No known [...] any issues or concerns, he should contact [facility]. All his questions were answered. He [...] Description 10/05/2024 9:00 AM EDT Office Visit [facility] [address] [place] [address] Marcos Patrick MD Chronic left-sided low back pain without sciatica (Primary Dx); Right buttock pain; Elevated blood pressure reading in office without diagnosis of hypertension 10/05/2024 Telephone [facility] [address] [place] [address] Marcos Patrick MD 10/05/2024 Population Health Risk Score Community Care [facility] (C3) [address] [phone] Provider, Population Health Generic 10/05/2024 Travel 10/04/[address] [address] Zahraa Roca DO Nurse Triage 10/03/[address] [address] Zahraa Roca DO Appointment Request 10/02/2024 Patient Outreach [address] [address] Zahraa Roca DO Care Coordination (CHW outreach for SDOH PT-1 - LVM ) 10/02/[address] [address] Zahraa Roca DO PT-1 10/01/2024 Patient Outreach [address] [address] Zahraa Roca DO Care Coordination (CHW outreach for SDOH PT-1 and food needs-referral completed /) 10/01/[address] [address] Zahraa Roca DO PT-1 (/) 09/21/[address] [address] Zahraa Roca DO Recall Letter (Recall Letter sent 09/21/24.) 09/20/[address] [address] Mere Rios, HENRIK UTOX confirmation Neg BZO 09/19/2024 Orders Only GENERIC EXTERNAL DATA DEPARTMENT Provider, Generic External Data 09/17/2024 Patient Outreach [address] [address] Zahraa Roca DO Transition Of Care (Tcm) 09/12/2024 9:30 AM EST Clinical Support [address] [address] Mere Rios RN Anxiety (Primary Dx); Opioid dependence on agonist therapy (CMS/HCC) 09/12/2024 Telephone [facility] [address] [place] [address] Zahraa Roca DO Patient message 09/12/[address] [address] Mere Rios, RN SKEIN [employer] Initial completed today; UTOX Neg BZO. sent out 09/12/2024 Refill [facility] [address] [place] [address] Mere Rios, RN Anxiety 09/12/2024 Travel 08/29/[address] [address] Mere Rios, HENRIK NCNS [employer] Initial X1 08/29/[address] [address] Mere Rios, HENRIK Recommend [employer] Tier 1 08/20/[address] [address] Zahraa Roca DO Anxiety 08/09/[address] [address] Zahraa Roca DO Appt question 08/08/[address] [address] Zahraa Roca DO 08/03/[address] [address] Zahraa Roca DO Appointment Request 07/24/2024 Patient Outreach [facility] [address] [place], [place] [phone] Zahraa Roca DO Transition Of Care (Tcm) 07/23/2024 Orders Only GENERIC EXTERNAL DATA DEPARTMENT Provider, Generic External Data 07/17/2024 Patient Outreach [address] [address] Zahraa Roca DO Care Coordination (CHW outreach for SDOH PT-1 - LVM ) 07/16/[address] [address] Zahraa Roca, callback requested 07/16/2024 Refill [facility] [address] [place] [address] Zahraa Roca, Anxiety 07/13/[address] [place] [address] Zahraa Roca, PT-1 07/13/[address] [place] [address] Zahraa Roca, Nurse Triage 07/12/[address] [place] [address] Zahraa Roca, 07/10/2024 Orders Only [address] [place] [address] Zahraa Roca, Lesion of subcutaneous tissue (Primary Dx) from [...] the past 12 months, has t he [employer] gas, oil or water company threatened to [...] Support [facility] [address] [place] [address] Mere Rios, RN Health Maintenance Due Date [...] Name Priority Date/Time Associated Diagnosis Comments XR PELVIS 1-2 VIEWS Routine 10/05/2024 9 :43 AM EDT Right buttock pain XR LUMBAR SPINE 2-3 VIEWS Routine 10/05/2024 9:43 AM EDT Chronic left-sided low back pain without sciatica GROSS AND MICROSCOPIC LEVEL 3 Routine 09/19/2024 [...] Relevant to Health Maintenance Results * XR Pelvis 1-2 Views (10/05/2024 9:43 AM EDT) Anatomical Region Laterality Modality Body, Pelvis Radiographic Nara ging 10/05/2024 9:43 AM EDT Narrative 10/05/2024 12:22 PM EDT ?[facility] ?[address] ?[place] [address] ?XRay Report ? Signed ? Patient: Cristobal Enriquez ?MR#: [id number] ?? 54 ? : 1970 ?Acct:[id number] ? Age/Sex: 54 / M ?ADM Date: 10/05/24 ? Loc: HO.HHCX ? Attending Dr: Marcos Patrick MD ? Ordering Physician: MARCOS PATRICK MD ?? Date of Service: 10/05/24 ?? Procedure(s): XR pelvis 1-2V ?? Accession Number(s): [id number] ? cc: MARCOS PATRICK MD ? EXAMINATION: ??XR PELVIS 1-2 VIEWS ? HISTORY: fell 1 year ago, has had right buttock pain since. ? COMPARISON: Comparison is made with the prior examination dated ?? 07/26/2023. ? FINDINGS: ??Two AP views of the pelvis are submitted. The patient is ?? status post bilateral total hip arthroplasty. The orthopedic elements ?? are unchanged in position. There is no radiographic evidence of ?? loosening on these AP views. There is no fracture or dislocation. ? XR/XR pelvis 1-2V ?? IMPRESSION: ?? Status post bilateral total hip arthroplasty. ? Electronically signed by: ??Wilfredo Han MD ??10/05/2024 12:19 PM EDT ?? RP ? Dictated By: ?Wilfredo Han MD ? Signed By: ?<Electronically signed by Wilfredo Han MD in OV> ?10/05/24 1219 ? DD/ 0943 ? TD/TT: 10/05/24 1000 ? Drier And Evaporator Operator: ? Procedure Note Donotuseinterpreter, Image - 10/05/[address] [address] XRay Report Signed Patient: Cristobal Enriquez JMR#: [id number] 54 : 1970Acct:[id number] Age/Sex: 54 / MADM Date: 10/05/24 Loc: HO.HHCX Attending Dr: Marcos Patrick MD Ordering Physician: MARCOS PATRICK MD Date of Service: 10/05/24 Procedure(s): XR pelvis 1-2V Accession Number(s): [id number] cc: MARCOS PATRICK MD EXAMINATION: XR PELVIS 1-2 VIEWS HISTORY: fell 1 year ago, has had right buttock pain since. COMPARISON: Comparison is made with the prior examination dated 07/26/2023. FINDINGS: Two AP views of the pelvis are submitted. The patient is status post bilateral total hip arthroplasty. The orthopedic elements are unchanged in position. There is no radiographic evidence of loosening on these AP views. There is no fracture or dislocation. XR/XR pelvis 1-2V IMPRESSION: Status post bilateral total hip arthroplasty. Electronically signed by: Wilfredo Han MD 10/05/2024 12:19 PM EDT RP Dictated By: Wilfredo Han MD Signed By: <Electronically signed by Wilfredo Han MD in OV> 10/05/24 1219 DD/ 0943 TD/TT: 10/05/24 1000 Drier And Evaporator Operator: Marcos Patrick MD IMG XR PROCEDURES Final Result * XR Lumbar Spine 2-3 Views (10/05/2024 9:43 AM EDT) Anatomical Region Laterality Modality Spine, L-spine Radiographic Nara ging 10/05/2024 9:43 AM EDT Narrative 10/05/2024 12:20 PM EDT ?[facility] ?[address] ?[place] [address] ?XRay Report ? Signed ? Patient: Cristobal Enriquez J ?MR#: [id number] ?? 54 ? : 1970 ?Acct:[id number] ? Age/Sex: 54 / M ?ADM Date: 10/05/24 ? Loc: HO.HHCX ? Attending Dr: Marcos Patrick MD ? Ordering Physician: MARCOS PATRIKC MD ?? Date of Service: 10/05/24 ?? Procedure(s): XR lumbar spine 2-3V ?? Accession Number(s): [id number] ? cc: MARCOS PATRICK MD ? EXAMINATION: ?? XR LUMBOSACRAL SPINE ? CLINICAL INFORMATION: ?? has ? lumbar spine promience at left spinous process mid lumbat spine. ?? Chronic low back pain left side. ? COMPARISON: ?? 03/08/2024. ? TECHNIQUE: ?? Three views of the lumbosacral spine. ? FINDINGS: ?? There is a mild to moderate levoconvex scoliosis centered at L2. There ?? is a minimal reversal of the normal lordosis centered at L2. ?? There is a moderate chronic compression deformity of L2. No additional ?? compression deformities. No acute fractures. No suspicious bone lesion. ?? There is a 4 mm anterolisthesis of L1 on L2. There is a 6 mm ?? retrolisthesis of L3 on L4. Trace retrolisthesis L4 on L5. ?? Severe loss of L2-3 disc space with a central lthr-er-boyf appearance. ?? Moderate loss at L1-2 and L3-4 with disc vacuum phenomenon. ?? There are degenerative hypertrophic facet changes left greater than ?? right spanning L2-S1. ? The SI joints and sacrum appear normal. There are bilateral partially ?? imaged hip arthroplasties. ?? The soft tissues appear normal. ? XR/XR lumbar spine 2-3V ?? IMPRESSION: ?? 1. Chronic compression deformity at L2, with a focal kyphotic and ?? levoscoliotic abnormality. No acute bony abnormalities. ?? 2. Moderate to advanced multilevel spondylosis most significant at L1-2 ?? through L3-4. ? Electronically signed by: ??Joao Pickett MD ??10/05/2024 12:17 PM EDT RP ? Dictated By: ?Joao Pickett MD ? Signed By: ?<Electronically signed by Joao Pickett MD in OV> ?10/05/24 1217 ? DD/ ? TD/TT: 10/05/24 1000 ? Drier And Evaporator Operator: ? Procedure Note Donotuseinterpreter, Image - 10/05/[address] [address] XRay Report Signed Patient: Cristobal Enriquez JMR#: [id number] 54 : 1970Acct:[id number] Age/Sex: 54 / MADM Date: 10/05/24 Loc: HO.HHCX Attending Dr: Marcos Patrick MD Ordering Physician: MARCOS PATRICK MD Date of Service: 10/05/24 Procedure(s): XR lumbar spine 2-3V Accession Number(s): [id number] cc: MARCOS PATRICK MD EXAMINATION: XR LUMBOSACRAL SPINE CLINICAL INFORMATION: has ? lumbar spine promience at left spinous process mid lumbat spine. Chronic low back pain left side. COMPARISON: 03/08/2024. TECHNIQUE: Three views of the lumbosacral spine. FINDINGS: There is a mild to moderate levoconvex scoliosis centered at L2. There is a minimal reversal of the normal lordosis centered at L2. There is a moderate chronic compression deformity of L2. No additional compression deformities. No acute fractures. No suspicious bone lesion. There is a 4 mm anterolisthesis of L1 on L2. There is a 6 mm retrolisthesis of L3 on L4. Trace retrolisthesis L4 on L5. Severe loss of L2-3 disc space with a central fzmt-yw-usmy appearance. Moderate loss at L1-2 and L3-4 with disc vacuum phenomenon. There are degenerative hypertrophic facet changes left greater than right spanning L2-S1. The SI joints and sacrum appear normal. There are bilateral partially imaged hip arthroplasties. The soft tissues appear normal. XR/XR lumbar spine 2-3V IMPRESSION: 1. Chronic compression deformity at L2, with a focal kyphotic and levoscoliotic abnormality. No acute bony abnormalities. 2. Moderate to advanced multilevel spondylosis most significant at L1-2 through L3-4. Electronically signed by: Joao Pickett MD 10/05/2024 12:17 PM EDT Dictated By: Joao Pickett MD Signed By: <Electronically signed by Joao Pickett MD in OV> 10/05/24 1217 DD/ 0943 TD/TT: 10/05/24 1000 Drier And Evaporator Operator: Marcos Patrick MD IMG XR PROCEDURES Final Result * Gross and Microscopic Level 3 (09/19/2024 9:00 AM EST) 09/19/2024 9:00 AM EST 09/19/2024 12:05 PM EST [facility] - 09/20/2024 3:24 PM EST ----- ------- Name: Cristobal Enriquez ? Age/Sex: 54/M ? : 1970 Unit#: [id number] ?? Attend Dr: Sergei Christine MD ?Re09/19/24 ?Status: DEP REF ? Location: HO.LNP ?Disch: ? ----- ------- SPEC : [id number] ? RECD: 09/19/24 ? STATUS: ??SOUT ? REQ NUM: [id number] ? NGA: 09/19/24 ? SUBM DR: Sergei [...] ? Age/Sex: 54/M ? : 1970 Unit#: [id number] ?? Attend Dr: Sergei Christine MD ?Re09/19/24 ?Status: DEP REF ? Location: HO.LNP ?Disch: ? ----- ------- SPEC : [id number] ? RECD: 09/19/24-1204 ? STATUS: ??SOUT ? REQ NUM: [id number] ? NGA: 09/19/24 ? SUBM DR: Sergei [...] DO ?? [facility] ?? [address] ?? [place] [address] ?? [phone] ?? Sergei Christine MD ?? [facility] ?? [address] ?? [place] ?? [phone] ?? [email or web address] ------- Signed (signature on file) [employer] 09/20/24 1524 ? ----- ------- ? END OF REPORT ? us Generic External Data Provider LAB CYTOLOGY BRIAN SANCHEZ Final Result [facility] [address] [place] [phone] * (ABNORMAL) POCT MARIO-14 Urine Drug Screen (09/12/2024 9:54 AM EST) THC Positive Benzodiazepines Screen, Urine Negative Methadone Screen, Urine Positive Urine Urine specimen obtained by clean catch procedure / Unknown 09/12/2024 9:54 AM EST Mere Smalls RN - 09/12/2024 9:54 AM EST UTOX cup Lot#[id number] Exp. 03/13/26 Internal Pass Control us Zahraa Roca DO POINT OF CARE TEST ENTER/JOANNA T ORDERABLES Final Result * Drug Monitoring, Benzodiazepines, Quantitative, Urine (09/12/2024 9:30 AM EST) Nordiazepam, GCMS Urine NEGATIVE [facility] Oxazepam, GCMS Urine NEGATIVE [facility] Lorazepam GCMS Urine NEGATIVE [facility] Alprazolam, GCMS Urine NEGATIVE [facility] Alphahydroxytriazolam, GCMS Ur NEGATIVE [facility] Temazepam, GCMS Urine NEGATIVE [facility] Alphahydroxymidazolam,GC MS Ur NEGATIVE [facility] Aminoclonazepam, GCMS Urine NEGATIVE [facility] Flurazepam Metabolite,GCMS Ur NEGATIVE [facility] Benzodiazepines Comments SEE NOTE [facility] Comment:This drug testing is for medical treatment only. Analysiswas performed as non-forensic testing and these resultsshould be used only by healthcare providers to renderdiagnosis or treatment, or to monitor progress of medicalconditions.LDT Notes:Confirmation tests were developed and their analyticalperformance characteristics have been determined by [employer]. It has not been cleared or approved by the FDA.This assay has been validated pursuant to the CLIAregulations and is used for clinical purposes.Healthcare Providers needing Interpretation assistance,please contact us at [phone] ( ) M-F,8am to 10pm ESTTHIS TEST PERFORMED AT:[facility] [place] [phone] DIRECTOR: SOCRATES MATHIAS MD Urine (Urine, Random) 09/12/2024 9:30 AM EST 09/12/2024 4:41 PM EST Zahraa Roca DO LAB URINE ORDERABLES Final R esult [facility] [address] [place] [phone] * XR Elbow 1-2 Views Right (08/15/2024 10:35 PM EST) Anatomical Region Laterality Modality Upper Extremities, Elbow Right Radiogr aphic Imaging 08/15/2024 10:3 5 PM EST Narrative 08/15/2024 10:37 PM EST ? [facility] ?[address] ?[place] [address] ?XRay Report ? Signed ? Patient: Cristobal Enriquez ?MR#: [id number] ?? 54 ? : 1970 ?Acct:[id number] ? Age/Sex: 54 / M ?ADM Date: 08/15/24 ? Loc: HO.US ? Attending Dr: Zamzam Richmond PA-C ? Ordering Physician: Sergei Christnie MD ?? Date of Service: 08/15/24 ?? Procedure(s): XR elbow RT 2V ?? Accession Number(s): [id number] ? cc: Zahraa Roca DO; Sergei Christine [...] ? Signed By: ?<Electronically signed by Shalom Coroando MD in OV> ?08/15/242235 ? DD/ 34 ? TD/TT: 08/15/242234 ? Drier And Evaporator Operator: ? Procedure Note Denys Ervin - 08/15/2024 [facility] [address] [place] [address] XRay Report Signed Patient: Cristobal Enriquez JMR#: [id number] 54 : 1970Acct:[id number] Age/Sex: 54 / MADM Date: 08/15/24 Loc: HO.US Attending Dr: Zamzam Richmond PA-C Ordering Physician: Sergei Christine MD Date of Service: 08/15/24 Procedure(s): XR elbow RT 2V Accession Number(s): [id number] cc: Zahraa Roca DO; Sergei Christine MD [...] in OV> 08/15/242235 DD/ 34 TD/TT: 08/15/242234 Drier And Evaporator Operator: [facility] External Provider IMG XR PROCEDURES Edited Result - Final * VASC Lower Extremity Venous Insufficiency Bilateral (08/15/2024 8:40 AM EST) 08/15/2024 8:40 AM EST Narrative [facility] - 08/20/2024 7:43 AM EST ? [facility] ?[address] ?[place] [address] ? Ultrasound Report ? Signed ? Patient: Szydlo,Cristobal J ?MR#: [id number] ?? 54 ? : 1970 ?Acct:[id number] ? Age/Sex: 54 / M ?ADM Date: 01/22/25 ? Loc: HO.US ? Attending Dr: Zamzam Richmond PA-C ? Ordering Physician: Zamzam Richmond PA-C ?? Date of Service: 08/15/24 ?? Procedure(s): US venous insuf bilat ?? Accession Number(s): [id number] ? cc: Zahraa Roca DO; Zamzam Richmond [...] DD/ 0840 ? TD/TT: 08/15/24 0930 ? Drier And Evaporator Operator: ? Procedure Note Aziza, Image - 08/20/2024 [place] [address] Ultrasound Report Signed Patient: Cristobal Enriquez JMR#: [id number] 54 : 1970Acct:[id number] Age/Sex: 54 / MADM Date: 08/15/24 Loc: HO.US Attending Dr: Zamzam Richmond PA-C Ordering Physician: Zamzam Richmond PA-C Date of Service: 08/15/24 Procedure(s): US venous insuf bilat Accession Number(s): [id number] cc: Zahraa Roca DO; Zamzam Richmond PA-C [...] 08/20/24 0740 DD/ 0840 TD/TT: 08/15/24 0930 Drier And Evaporator Operator: [facility] External Provider CV VASC ULAR PROCEDURES Edited Result - Final [facility] [address] [place] [phone] * US VENOUS DUPLEX LE RT (07/23/2024 5:16 PM EST) Anatomical Region Laterality Modality Abdomen Ultrasound 07/23/2024 5:16 PM EST Narrative 07/23/2024 5:17 PM EST ? [place] [facility] ?[address] ?[place] [address] ? Ultrasound Report ? Signed ? Patient: Szydlo,Cristobal J ?MR#: [id number] ?? 54 ? : 1970 ?Acct:[id number] ? Age/Sex: 54 / M ?ADM Date: 07/23/24 ? Loc: HO.ED ? Attending Dr: ? Ordering Physician: Raul Almaguer ?? Date of Service: 07/23/24 ?? Procedure(s): US venous duplex LE RT ?? Accession Number(s): [id number] ? cc: Zahraa Roca DO; Raul Almaguer [...] ? DD/ 15 ? TD/TT: 07/23/241715 ? Drier And Evaporator Operator: ? Procedure Note Aziza, Image - 07/23/2024 [place] [address] Ultrasound Report Signed Patient: Cristobal Enriquez JMR#: [id number] 54 : 1970Acct:[id number] Age/Sex: 54 / MADM Date: 07/23/24 Loc: HO.ED Attending Dr: Ordering Physician: Raul Almaguer Date of Service: 07/23/24 Procedure(s): US venous duplex LE RT Accession Number(s): [id number] cc: Zahraa Roca DO; Raul Almaguer CLINICAL [...] MD Signed By: <Electronically signed by Gelacio Leoen MD in OV> 07/23/24 171 DD/ 15 TD/TT: 07/23/241715 Drier And Evaporator Operator: [facility] External Provider IMG US PROCEDURES Final Result * SARS-CoV-2 RNA, Influenza A/B, and RSV RNA, Ql NAAT (07/23/2024 12:47 PM EST) Influenza A PCR NEGATIVE Negative [facility] Influenza B PCR NEGATIVE Negative [facility] Resp Syncy Virus RNA Qual PCR NEGATIVE Negative [facility] SARS COV2 PCR NEGATIVE Negative [facility] Comment:All test results mus t [...] use by authorized laboratories.Testing performed on the [employer] GeneXpert utilizingreal-time RT-PCR.All SARS CoV2 and positive influenza A/B results arereported to [facility]. 07/23/2024 12:4 7 PM EST 07/23/2024 12:55 PM EST Generic External Data Provider LAB MICROBIOLOGY - GENERAL ORDERABLES Final Result [facility] [address] [place] [address] [phone] * (ABNORMAL) CBC auto differential (07/23/2024 12:47 PM EST) White Blood Count 4.9 4.8 - 10.8 X10*3/uL [facility] Red Blood Count 4.20(L) 4.60 - 5.80 X10*6/uL [facility] Hemoglobin 12.5(L) 14.0 - 18.0 g/dl [facility] Hematocrit 37.2(L) 42.0 - 52.0 % [facility] Mean Corpuscular Volume 88.6 80.0 - 98.0 fL [facility] Mean Corpuscular Hemoglobin 29.8 27.0 - 33.0 pg [facility] Mean Corpuscular HGB Conc 33.6 31.0 - 36.0 g/dl [facility] Red Cell Distribution Width 12.4 11.0 - 16.0 % [facility] Platelet Count 178 160 - 400 X10*3/uL [facility] Mean Platelet Volume 9.9 9.4 - 12.4 fL [facility] Neutrophils Percent Auto 65.7 45 - 73 % [facility] Imm Gran Pct Auto 0.4 0.0 - 0.4 % [facility] Lymphocytes Percent Auto 26.1 20 - 40 % [facility] Monocytes Percent Auto 5.8 2 - 11 % [facility] Eosinophils Percent Auto 1.4 0 - 4 % [facility] Basophils Percent Auto 0.6 0 - 2 % [facility] NRBC Pct Auto 0.0 0.0 - 0.2 /100WBC [facility] Neutrophils Absolute Auto 3.2 2.0 - 8.3 x10*3/uL [facility] Imm Gran Abs Auto 0.02 0.00 - 0.03 X10*3/uL [facility] Lymphocytes Absolute Auto 1.3 1.2 - 4.9 X10*3/uL [facility] Monocytes Absolute Auto 0.3 0.1 - 1.2 X10*3/uL [facility] Eosinophils Absolute Auto 0.1 0.0 - 0.4 X10*3/uL [facility] Basophils Absolute Auto 0.0 0.0 - 0.2 X10*3/uL [facility] NRBC Abs Auto 0.000 0.0 - 0.012 X10*3/uL [facility] 07/23/2024 12:4 7 PM EST 07/23/2024 12:55 PM EST us Generic External Data Provider LAB BLOOD ORDERAB LES Final Result Performing Organization Address [facility] Co de Phone Number [facility] [address] [place] [phone] * (ABNORMAL) Prothrombin Time-INR (07/23/2024 12:47 PM EST) Prothrombin Time 13.9(H) 10.9 - 12.4 SEC [facility] INTERNATIONAL NORM RATIO 1.2(H) 0.9 - 1.1 [facility] Comment:INTERNATIONAL NORMAL IZED RATIO (INR) [...] Final Result Performing Organization Address [facility] Co de Phone Number [facility] [address] [place] [phone] * Magnesium (07/23/2024 12:47 PM EST) Magnesium 1.8 1.6 - 2.6 mg/dL [facility] 07/23/2024 12:4 7 PM EST 07/23/2024 12:55 PM EST Generic External Data Provider LAB BLOOD ORDERAB LES Final Result Performing Organization Address [facility] Co de Phone Number [facility] [address] [place] [phone] * Lipase (07/23/2024 12:47 PM EST) Lipase 12 8 - 78 U/L [facility] 07/23/2024 12:4 7 PM EST 07/23/2024 12:55 PM EST us Generic External Data Provider LAB BLOOD ORDERAB LES Final Result [facility] [address] [place] [phone] * (ABNORMAL) Comprehensive Metabolic Panel (07/23/2024 12:47 PM EST) Sodium 141 135 - 145 mmol/L [facility] Potassium 3.8 3.3 - 5.1 mmol/L [facility] Chloride 106 96 - 108 mmol/L [facility] Carbon Dioxide 29 22 - 29 mmol/L [facility] Anion Gap 10(L) 12 - 20 [facility] Urea Nitrogen (BUN) 14 9 - 16 mg/dL [facility] Creatinine, Serum 0.83 0.5 - 1.4 mg/dL [facility] Creatinine Clr Calc Pharmacy 102.6 [facility] Comment:eGFR (calculated fro m the MDRD study equation) and eCrCl(calculated from the Cockcroft-Gault equation) are based ondifferent parameters and may not yield comparable results.If eCrCl result is absurd, please check patient'sheight/weight. Estimated Glomerular Filt Rate >60 [facility] Comment:Chronic Kidney Disea se: Estimated GFR < 60 mL/min/1.48a6Mdyjel Kidney Disease: Estimated GFR < 15 mL/min/1.73m2 Glucose 94 60 - 115 mg/dL [facility] Calcium 8.5 8.4 - 10.2 mg/dL [facility] Bilirubin, Total 0.5 0.0 - 1.0 mg/dL [facility] Aspartate Amino Transferase 21 5 - 37 U/L [facility] Alanine Aminotransferase 14 0 - 40 U/L [facility] Total Protein 6.8 6.5 - 8.0 g/dL [facility] Albumin Level 4.2 3.5 - 5.0 g/dL [facility] Alkaline Phosphatase 116 39 - 117 U/L [facility] 07/23/2024 12:4 7 PM EST 07/23/2024 12:55 PM EST us Generic External Data Provider LAB BLOOD ORDERAB LES Final Result Performing Organization Address [facility]/ZIP Co de Phone Number [facility] [address] [place] [phone] * HIV-1/2 Antigen and Antibodies, Fourth Generation, with Reflexes (10/24/2023 10:26 AM EDT) HIV AB/AG Nonreactive Nonreactive [facility] Comment:HIV-1 p24 Ag and/or HIV-1/HIV-2 Ab not detected.A test result that is nonreactive does not exclude thepossibility of exposure to or infection with HIV-1 and/orHIV-2. Nonreactive results in this assay for individualswith prior exposure to HIV-1 and/or HIV-2 may be due toantigen and antibody levels that are below the limit ofdetection of this assay.The [employer] HIV Ag/Ab Combo assay result andsupplemental assay results should be interpreted inconjunction with the patient's clinical presentation,history and other laboratory results. If the results areinconsistent with clinical evidence, additional testing issuggested to confirm the result. Blood Venous blood specimen / Unknown 10/24/2023 10:26 AM EDT 10/24/2023 11:09 AM EDT us Zahraa Roca DO LAB BLOOD ORDERABLES Final R esult Performing Organization Address [facility]/ZIP Co de Phone Number [facility] [address] [place] [address] [phone] * (ABNORMAL) Lipid Panel, Standard (10/24/2023 10:26 AM EDT) Triglycerides 48 <150 mg/dL [facility] Comment:Desirable Triglyceri de: less than 150 mg/dLBorderline High Triglyceride 150-199 mg/dLHigh Triglyceride: 200-499 mg/dLVery High Triglyceride: greater than or equal to 5OO mg/dL Cholesterol 174 <200 mg/dL [facility] Comment:Desirable Cholestero l: less than 200 mg/dLBorderline High Cholesterol: 200-239 mg/dLHigh Cholesterol: greater than 239 mg/dL LDL Cholesterol Calculated 113(H) <100 mg/dL [facility] Comment:Desirable LDL: less than 100 mg/dLNear Optimal/Above Optimal LDL: 110- 129 mg/dLBorderline High LDL: 130-159 mg/dLHigh LDL: 160-189 mg/dLVery High LDL: greater than or equal to 190 mg/dL HDL Cholesterol 52 >40 mg/dL [facility] Comment:Desirable HDL: great er than 40 mg/dL Note: This HDL assay may give artificially low results in patients with liver disease. Blood Venous blood specimen / Unknown 10/24/2023 10:26 AM EDT 10/24/2023 1:07 PM EDT Zahraa Roca DO LAB BLOOD ORDERABLES Final R esult [facility] [address], [place] [phone] * Colonoscopy (03/16/2023 9:43 AM EDT) us Historical Provider HEALTH MAINTENANCE Final Result * Fecal Globin by Immunochemistry (07/13/2022 12:00 AM EST) Fecal Globin By Immunochemistry SEE NOTE [email or web address] Comment: ??FECAL GLOBIN BY IMMUNOCHEMISTRY ?Micro Number: ?[id number] ??Test Status: ? Final ??Specimen Source: ?? Insure (tm) fobt test card ??Specimen Quality: ??Adequate ??Fecal Globin: ?Not Detected 07/13/2022 07/28/2022 8:2 7 AM EST Zahraa Abelino DO LAB BODY FLUIDS AND STOOLS O RDERABLES Final Result [facility] [address] [facility], [facility], [place] [address] [facility] [address] [facility], ([address]) [place] [address] from Last 3 Months or Most Recently Relevant to Health Maintenance Insurance [facility] STANDARD MEDICARE DENTAL-[facility] MED[facility] STAND ADULT Care Teams Net Washer Relationship Specialty Start Date End Date Zahraa Roca DO [address] [place] [address] PCP - General Family Medicine 07/25/18 Christian Soria FNP [address] [place] [address] Nurse Practitioner Family Medicine 06/24/23
--- OUTSIDE RECORDS SUMMARY | 2024-10-05 16:18 | XMS_ITS | Encounter Summary ---
Author Organization [employer] Address [address] [facility] [address] 7t [place] [address] Care Team Providers Care Head Neck Surgeon Name Role Phone Zahraa Roca DO Primary Care Provider + [phone] Christian Soria Unavailable Unavailable Encounter Details Date Type Department Care Team (Late st Contact Info) Description 04/17/2024 Telephone [facility] ADULT DENTAL [address] [place], [place] [phone] Lore Vargas DDS [address] [place] [address] Social History Tobacco Use Types Packs/Day Years [...] encounter Miscellaneous Notes * Telephone Encounter - aDnica George - 04/17/2024 9:15 AM EDT Good morning doctor , Patient has an coming apt with Dr avila for extraction.patient asking if you can send him antibiotics to his pharmacy thank you . documented in this encounter Plan of Treatment Upcoming Encounters Date Type Department Care Team (Late st Contact Info) Description 10/11/2024 10:30 AM EDT Clinical Support [facility] MEDICINE [address] [place] [address] Mere Rios RN documented as of this encounter Visit Diagnoses Not on filedocumented in this encounter Additional Health Concerns Assessment Noted Time PHQ-9 Depression Total Score: 0 11/28/19 11:23 AM EDT documented as of this encounter Care Teams Head Neck Surgeon Relationship Specialty Start Date End Date Zahraa Roca DO [address] [place] [address] PCP - General Family Medicine 07/25/18 Christian Soria FNP [address] [place] [address] Nurse Practitioner Family Medicine 06/24/23 documented as of this encounter
--- OUTSIDE RECORDS SUMMARY | 2024-10-05 16:18 | XMS_ITS | Encounter Summary ---
Author Organization [employer] Address [address] 7t [place] [address] Care Team Providers Care Truck Car And Bus Cleaner Name Role Phone SuryaZahraa lee Primary Care Provider + [phone] Christian Soria Unavailable Unavailable Reason for Visit * Reason Onset Date Comments TRANSFER IRON OPERATOR Initial completed today 09/12/2024 UTOX Neg BZO. sent out 09/12/2024 Encounter Details Date Type Department Care Team ([facility] st Contact Info) Description 09/12/2024 Telephone [facility] MEDICINE [address] [place] [address] Mere Rios, HENRIK TRANSFER IRON OPERATOR Initial completed today; UTOX Neg BZO. sent [...] - 09/12/2024 10:05 AM EST Pt had TRANSFER IRON OPERATOR Initial appt today UTOX Neg BZO, sent out for confirmation Pt had 2 Clonazepam remaining, anticipated 4. States he thinks 2 are under his dresser still. documented in this encounter Plan of Treatment Upcoming Encounters Date Type Department Care Team (Late st Contact Info) Description 10/11/2024 10:30 AM EDT Clinical Support [facility] MEDICINE [address] [place] [address] Mere Rios, RN documented as of this encounter Visit Diagnoses Not on filedocumented in this encounter Additional Health Concerns Assessment Noted Time PHQ-9 Depression Total Score: 0 11/28/19 24 11:23 AM EDT documented as of this encounter Care Teams Truck Car And Bus Cleaner Relationship Specialty Start Date End Date Zahraa Roca DO [address] [place] [address] PCP - General Family Medicine 07/25/18 Christian Soria FNP [address] [place] [address] Nurse Practitioner Family Medicine 06/24/23 documented as of this encounter
--- OUTSIDE RECORDS SUMMARY | 2024-10-05 16:18 | XMS_ITS | Encounter Summary ---
Author Organization [employer] Address [address] [facility] 7t [place] [address] Care Team Providers Care Consolidator Name Role Phone Zahraa Roca DO Primary Care Provider + [phone] Christian Soria Unavailable Unavailable Reason for Visit * Reason Onset Date Comments Appointment Request 08/03/2024 Encounter Details Date Type Department Care Team ([facility] Contact Info) Description 08/03/2024 Telephone [facility] MED[facility] [address] [place], [place] [phone] Zahraa Roca DO [address] [place], [place] [phone] Appointment Request Social History Tobacco Use Types [...] missed appointment with dermatology. Contact pt at [phone] documented in this encounter Plan of Treatment Upcoming Encounters Date Type Department Care Team (Late st Contact Info) Description 10/11/2024 10:30 AM EDT Clinical Support [facility] MEDICINE [address] [place] [address] Mere Rios RN documented as of this encounter Visit Diagnoses Not on filedocumented in this encounter Additional Health Concerns Assessment Noted Time PHQ-9 Depression Total Score: 0 11/28/19 24 11:23 AM EDT documented as of this encounter Care Teams Consolidator Relationship Specialty Start Date End Date Zahraa Roca DO [address] [place] [address] PCP - General Family Medicine 07/25/18 Christian Soria FNP [address] [place] [address] Nurse Practitioner Family Medicine 06/24/23 documented as of this encounter
--- OUTSIDE RECORDS SUMMARY | 2024-10-05 16:18 | XMS_ITS | Encounter Summary ---
Author Organization [employer] Address [address] [place] [address] 7t [place] [address] Care Team Providers Care Structural Architect Name Role Phone Zahraa Roca DO Primary Care Provider + [phone] Christian Soria Unavailable Unavailable Encounter Details Date Type Department Care Team (Late Contact Info) Description 09/20/2022 Orders Only [facility] CHC MED & PEDS [address] [place] [address] Zahraa Andino LPN Social History Tobacco Use [...] Description 10/11/2024 10:30 AM EDT Clinical Support [facility] MEDICINE [address] [place] [address] Mere Rios RN documented as of this encounter Visit Diagnoses Not on filedocumented in this encounter Additional Health Concerns Assessment Noted Time PHQ-9 Depression Total Score: 0 08/24/19 23 2:33 PM EST documented as of this encounter Care Teams Structural Architect Relationship Specialty Start Date End Date Zahraa Roca DO [address] [place] [address] PCP - General Family Medicine 07/25/18 Christian Soria FNP [address] [place] [address] Nurse Practitioner Family Medicine 06/24/23 documented as of this encounter
--- OUTSIDE RECORDS SUMMARY | 2024-10-05 16:18 | XMS_ITS | Encounter Summary ---
Author Organization [employer] Address [address] [place] [address] 7 [place] [address] Care Team Providers Care Compliance Auditor Name Role Phone Zahraa Roca DO Primary Care Provider + [phone] Christian Soria Unavailable Unavailable Encounter Details Date Type Department Care Team (Late st Contact Info) Description 07/06/2022 Orders Only [facility] CHC MED & PEDS [address] [place] [address] Zahraa Andino LPN Social History Tobacco Use [...] 10/11/2024 10:30 AM EDT Clinical Support [facility] MEDICINE [address] [place] [address] Mere Rios RN documented as of this encounter Visit Diagnoses Not on filedocumented in this encounter Care Teams Compliance Auditor Relationship Specialty Start Date End Date Zahraa Roca DO [address] [place] [address] PCP - General Family Medicine 07/25/18 Christian Soria FNP [address] [place] [address] Nurse Practitioner Family Medicine 06/24/23 documented as of this encounter
--- OUTSIDE RECORDS SUMMARY | 2024-10-05 16:18 | XMS_ITS | Encounter Summary ---
Author Organization [employer] Address [address] [place] [address] 7 [place] [address] Care Team Providers Care Canal Structure Operator Name Role Phone Zahraa Roca DO Primary Care Provider + [phone] Christian Soria Unavailable Unavailable Reason for Visit * Reason Comments Med Refill Encounter Details Date Type Department Care Team (Late st Contact Info) Description 12/31/2022 Refill [facility] MEDICINE [address] [place] [address] Christian Soria FNP Anxiety Social History Tobacco [...] 10:30 AM EDT Clinical Support [facility] MEDICINE [address] [place] [address] Mere Rios RN documented as of this encounter Visit Diagnoses Diagnosis Anxiety Anxiety state, unspecified documented in this encounter Additional Health Concerns Assessment Noted Time PHQ-9 Depression Total Score: 0 08/24/19 23 2:33 PM EST documented as of this encounter Care Teams Canal Structure Operator Relationship Specialty Start Date End Date Zahraa Roca DO [address] [place] [address] PCP - General Family Medicine 07/25/18 Christian Soria FNP [address] [place] [address] Nurse Practitioner Family Medicine 06/24/23 documented as of this encounter
--- OUTSIDE RECORDS SUMMARY | 2024-10-05 16:18 | XMS_ITS | Encounter Summary ---
Author Organization [employer] Address [address] [facility] 7t [place] [address] Care Team Providers Care Fast Brim Pouncer Name Role Phone Zahraa Roca DO Primary Care Provider + [phone] Christian Soria Unavailable Unavailable Reason for Visit * Reason Comments Care Coordination CHW outreach for SDO H PT-1 - LVM Encounter Details Date Type Department Care Team (Latest Contact Info) Description 10/02/2024 Patient Outreach [facility] MEDICINE [address] [place] [address] Zahraa Roca DO [address] [place] [address] Care Coordination (CHW outreach for SDOH PT-1 [...] Wednesdays, and Walk-In Urgent Care Located in [facility]. Patient provided with after-hours line for [facility], , which offer night time triage service and option to transfer to sanitation truck driver provider if needed. documented in this encounter Plan of Treatment Upcoming Encounters Date Type Department Care Team ([facility] st Contact Info) Description 10/11/2024 10:30 AM EDT Clinical Support [facility] MEDICINE [address] [place] [address] Blanca, Mere, RN documented as of this encounter Visit Diagnoses Not on filedocumented in this encounter Additional Health Concerns Assessment Noted Time PHQ-9 Depression Total Score: 0 11/28/19 24 11:23 AM EDT documented as of this encounter Care Teams Fast Brim Pouncer Relationship Specialty Start Date End Date Zahraa Roca DO [address] [place] [address] PCP - General Family Medicine 07/25/18 Christian Soria FNP [address] [place] [address] Nurse Practitioner Family Medicine 06/24/23 documented as of this encounter
--- OUTSIDE RECORDS SUMMARY | 2024-10-05 16:18 | XMS_ITS | Encounter Summary ---
Author Organization [employer] Address [address] [facility] 7t [place] [address] Care Team Providers Care Proced Tech Name Role Phone Zahraa Roca DO Primary Care Provider + [phone] Christian Soria Unavailable Unavailable Reason for Visit * Reason Onset Date Comments PT-1 10/01/2024 Encounter Details Date Type Department Care Team ([facility] st Contact Info) Description 10/01/2024 Telephone [facility] MEDICINE [address] [place], [place] [phone] Zahraa Roca DO [address] [place], [place] [phone] PT-1 (/) Social History Tobacco Use Types [...] EDT Tc from pt requesting for the Finisher Denture locations for all his Pt 1 to be changed to [address] [place] [address]. If any questions contact pt at [phone] documented in this encounter Plan of Treatment Upcoming Encounters Date Type Department Care Team (Late st Contact Info) Description 10/11/2024 10:30 AM EDT Clinical Support [facility] MEDICINE [address] [place] [address] Mere Rios, HENRIK documented as of this encounter Visit Diagnoses Not on filedocumented in this encounter Additional Health Concerns Assessment Noted Time PHQ-9 Depression Total Score: 0 11/28/19 24 11:23 AM EDT documented as of this encounter Care Teams Proced Tech Relationship Specialty Start Date End Date Zahraa Roca DO [address] [place] [address] PCP - General Family Medicine 07/25/18 Christian Soria FNP [address] [place] [address] Nurse Practitioner Family Medicine 06/24/23 documented as of this encounter
--- OUTSIDE RECORDS SUMMARY | 2024-10-05 16:18 | XMS_ITS | Encounter Summary ---
Author Organization [employer] Address [address] [facility] 7t [place] [address] Care Team Providers Care Stakeholder Manager Name Role Phone Zahraa Roca DO Primary Care Provider + [phone] Christian Soria Unavailable Unavailable Reason for Visit * Reason Onset Date Comments PT-1 04/17/2024 Encounter Details Date Type Department Care Team ([facility] st Contact Info) Description 04/17/2024 Telephone [facility] MEDICINE [address] [place], [place] [phone] Zahraa Roca DO [address] [place], [place] [phone] PT-1 Social History Tobacco Use Types Packs/Day [...] Yes Provider name or facility name: [facility] Facility Address: [address] [place] [address] Escort needed: Y/N: No Do you have a wheelchair: Y/N: No If yes- Manual or electric: N/A Visits: Twice a month documented in this encounter Plan of Treatment Upcoming Encounters Date Type Department Care Team (Late st Contact Info) Description 10/11/2024 10:30 AM EDT Clinical Support [facility] MEDICINE [address] [place] [address] Mere Rios RN documented as of this encounter Visit Diagnoses Not on filedocumented in this encounter Additional Health Concerns Assessment Noted Time PHQ-9 Depression Total Score: 0 11/28/19 11:23 AM EDT documented as of this encounter Care Teams Stakeholder Manager Relationship Specialty Start Date End Date Zahraa Roca DO [address] [place] [address] PCP - General Family Medicine 07/25/18 Christian Soria FNP [address] [place] [address] JANICE Merchant [address] Nurse Practitioner Family Medicine 06/24/23 documented as of this encounter
--- OUTSIDE RECORDS SUMMARY | 2024-10-05 16:18 | XMS_ITS | Encounter Summary ---
Author Organization [employer] Address [address] [facility] 7t [place] [address] Care Team Providers Care Waste Hand Name Role Phone Zahraa Roca DO Primary Care Provider + [phone] Christian Soria Unavailable Unavailable Reason for Visit * Reason Onset Date Comments Appointment Request 10/03/2024 Encounter Details Date Type Department Care Team ([facility] Contact Info) Description 10/03/2024 Telephone [facility] MEDICINE [address] [place], [place] [phone] Zahraa Roca DO [address] [place], [place] [phone] Appointment Request Social History Tobacco Use Types [...] to clear him for his new address. [employer] rescheduled for 10/11/24 @ 10:30am * Telephone Encounter - Gabbi Arreola - 10/03/2024 9:19 AM EDT Tc from pt requesting a call back to r/s appt. Pt canc. 10/10 appt because has no ride. documented in this encounter Plan of Treatment Upcoming Encounters Date Type Department Care Team (Late st Contact Info) Description 10/11/2024 10:30 AM EDT Clinical Support [address] [address] Mere Rios, HENRIK documented as of this encounter Visit Diagnoses Not on filedocumented in this encounter Additional Health Concerns Assessment Noted Time PHQ-9 Depression Total Score: 0 11/28/19 24 11:23 AM EDT documented as of this encounter Care Teams Waste Hand Relationship Specialty Start Date End Date Zahraa Roca DO [address] [place] [address] PCP - General Family Medicine 07/25/18 Christian Soria FNP [address] [place] [address] Nurse Practitioner Family Medicine 06/24/23 documented as of this encounter
--- OUTSIDE RECORDS SUMMARY | 2024-10-05 16:18 | XMS_ITS | Encounter Summary ---
Author Organization [employer] Address [address] [facility] 7t [place] [address] Care Team Providers Care Otr Tanker Truck Driver Name Role Phone Zahraa Roca DO Primary Care Provider + [phone] Christian Soria Unavailable Unavailable Reason for Visit * Reason Onset Date Comments Patient message 09/12/2024 Encounter Details Date Type Department Care Team ([facility] Contact Info) Description 09/12/2024 Telephone [facility] MEDICINE [address] [place], [place] [phone] Zahraa Roca DO [address] [place], [place] [phone] Patient message Social History Tobacco Use Types [...] 1:08 PM EST TC placed to patient [phone] in regards to below message. Patient reports he is seeing his vascular doctor tomorrow at [facility] and he will discuss the spot on the R thigh with the vascular provider.Patient reports he has applied ice to the lump on his back and it has decreased. Patient informed if the lump does not completely resolve or increases in size again, he should come to the [facility] to be evaluated. Patient verbalized understanding. [...] on my spine, I will go to [facility] for that documented in this encounter Plan of Treatment Upcoming Encounters Date Type Department Care Team (Late st Contact Info) Description 10/11/2024 10:30 AM EDT Clinical Support [facility] MEDICINE [address] [place] [address] Mere Rios, HENRIK documented as of this encounter Visit Diagnoses Not on filedocumented in this encounter Additional Health Concerns Assessment Noted Time PHQ-9 Depression Total Score: 0 11/28/19 24 11:23 AM EDT documented as of this encounter Care Teams Otr Tanker Truck Driver Relationship Specialty Start Date End Date Zahraa Roca DO [address] [place] [address] PCP - General Family Medicine 07/25/18 Christian Soria FNP [address] [place] [address] Nurse Practitioner Family Medicine 06/24/23 documented as of this encounter
--- OUTSIDE RECORDS SUMMARY | 2024-10-05 16:18 | XMS_ITS | Encounter Summary ---
Author Organization [employer] Address [address] [place] [address] 7t [place] [address] Care Team Providers Care Helpdesk Administrator Name Role Phone SuryaZahraa lee Primary Care Provider + [phone] Christian Soria Unavailable Unavailable Reason for Visit * Reason Comments Med Refill Encounter Details Date Type Department Care Team (Late st Contact Info) Description 12/19/2022 Refill [facility] MEDICINE [address] [place], [place] [phone] Christian Soria FNP Anxiety Social History Tobacco [...] Description 10/11/2024 10:30 AM EDT Clinical Support [facility] MEDICINE [address] [place] [address] Meer Rios RN documented as of this encounter Visit Diagnoses Diagnosis Anxiety Anxiety state, unspecified documented in this encounter Additional Health Concerns Assessment Noted Time PHQ-9 Depression Total Score: 0 08/24/19 23 2:33 PM EST documented as of this encounter Care Teams Helpdesk Administrator Relationship Specialty Start Date End Date Zahraa Roca DO [address] [place] [address] PCP - General Family Medicine 07/25/18 Christian Soria FNP [address] [place] [address] Nurse Practitioner Family Medicine 06/24/23 documented as of this encounter
--- OUTSIDE RECORDS SUMMARY | 2024-10-05 16:18 | XMS_ITS | Encounter Summary ---
Author Organization [employer] Address [address] [place] [address] 7t [place] [address] Care Team Providers Care Control Area Operator Name Role Phone Zahraa Roca DO Primary Care Provider + [phone] Christian Soria Unavailable Unavailable Reason for Visit * Reason Onset Date Comments Med Refill 12/31/2022 Encounter Details Date Type Department Care Team (Late st Contact Info) Description 12/31/2022 Telephone [facility] MEDICINE [address] [place], [place] [phone] Zahraa Roca DO [address] [place], [place] [phone] Med Refill Social History Tobacco Use Types [...] Support [facility] MEDICINE [address] [place] [address] Mere Rios, HENRIK documented as of this encounter Visit Diagnoses Not on filedocumented in this encounter Additional Health Concerns Assessment Noted Time PHQ-9 Depression Total Score: 0 08/24/19 23 2:33 PM EST documented as of this encounter Care Teams Control Area Operator Relationship Specialty Start Date End Date Zahraa Roca DO [address] [place] [address] PCP - General Family Medicine 07/25/18 Christian Soria FNP [address] [place] [address] Nurse Practitioner Family Medicine 06/24/23 documented as of this encounter
--- OUTSIDE RECORDS SUMMARY | 2024-10-05 16:18 | XMS_ITS | Encounter Summary ---
Author Organization [employer] Address [address] [facility] 7t [place] [address] Care Team Providers Care Track And Field Coach Name Role Phone Zahraa Roca DO Primary Care Provider + [phone] Christian Soria Unavailable Unavailable Reason for Visit * Reason Onset Date Comments PT1 01/03/2024 Encounter Details Date Type Department Care Team ([facility] st Contact Info) Description 01/03/2024 Telephone [facility] MEDICINE [address] [place], [place] [phone] Zahraa Roca DO [address] [place], [place] [phone] PT1 Social History Tobacco Use Types Packs/Day [...] or facility name: methadone clinic Facility Address: [address] [place] [address] Escort needed: Y/N: No Do you have a wheelchair: Y/N: No If yes- Manual or electric: none Visits: 7 days a week documented in this encounter Plan of Treatment Upcoming Encounters Date Type Department Care Team ([facility] Contact Info) Description 10/11/2024 10:30 AM EDT Clinical Support [facility] [address] [place] [address] Mere Rios RN documented as of this encounter Visit Diagnoses Not on filedocumented in this encounter Additional Health Concerns Assessment Noted Time PHQ-9 Depression Total Score: 0 11/28/19 11:23 AM EDT documented as of this encounter Care Teams Track And Field Coach Relationship Specialty Start Date End Date Zahraa Roca DO [address] [place] [address] PCP - General Family Medicine 07/25/18 Christian Soria FNP [address] [place] [address] Nurse Practitioner Family Medicine 06/24/23 documented as of this encounter
--- OUTSIDE RECORDS SUMMARY | 2024-10-05 16:18 | XMS_ITS | Encounter Summary ---
Author Organization [employer] Address [address] [place] [address] 7t [place] [address] Care Team Providers Care Warp Dyeing Vat Tender Name Role Phone Zahraa Roca DO Primary Care Provider + [phone] Christian Soria Unavailable Unavailable Encounter Details Date Type Department Care Team (Late Contact Info) Description 10/21/2022 Orders Only [facility] [address] [place] [address] Zahraa Andino LPN Social History Tobacco Use [...] Description 10/11/2024 10:30 AM EDT Clinical Support [facility] [address] [place] [address] Mere Rios RN documented as of this encounter Visit Diagnoses Not on filedocumented in this encounter Additional Health Concerns Assessment Noted Time PHQ-9 Depression Total Score: 0 08/24/19 23 2:33 PM EST documented as of this encounter Care Teams Warp Dyeing Vat Tender Relationship Specialty Start Date End Date Zahraa Roca DO [address] [place] [address] PCP - General Family Medicine 07/25/18 Christian Soria FNP [address] [place] [address] Nurse Practitioner Family Medicine 06/24/23 documented as of this encounter
--- OUTSIDE RECORDS SUMMARY | 2024-10-05 16:18 | XMS_ITS | Encounter Summary ---
Author Organization [employer] Address [address] [place] [address] 7 [place] [address] Care Team Providers Care Information Services Assistant Name Role Phone Zahraa Roca DO Primary Care Provider + [phone] Christian Soria Unavailable Unavailable Encounter Details Date Type Department Care Team (Late st Contact Info) Description 08/12/2022 Orders Only [facility] [address] [place] [address] Zahraa Andino LPN Social History Tobacco Use [...] Description 10/11/2024 10:30 AM EDT Clinical Support [facility] [address] [place] [address] Mere Rios RN documented as of this encounter Visit Diagnoses Not on filedocumented in this encounter Care Teams Information Services Assistant Relationship Specialty Start Date End Date Zahraa Roca DO [address] [place] [address] PCP - General Family Medicine 07/25/18 Christian Soria FNP [address] [place] [address] Nurse Practitioner Family Medicine 06/24/23 documented as of this encounter
--- OUTSIDE RECORDS SUMMARY | 2024-10-05 16:18 | XMS_ITS | Encounter Summary ---
Author Organization [employer] Address 75 [facility] 7t [place] [address] Care Team Providers Care Trailhead Maintenance Worker Name Role Phone SuryaZahraa lee Primary Care Provider + [phone] Christian Soria Unavailable Unavailable Reason for Visit * Reason Onset Date Comments Med Refill 09/12/2024 Encounter Details Date Type Department Care Team ([facility] st Contact Info) Description 09/12/2024 Refill [facility] MEDICINE [address] [place] [address] Mere Rios RN Anxiety Social History Tobacco [...] - 09/12/2024 10:03 AM EST Pt had HEARINGS REPORTER Initial appt today, Tier 1 UTOX Neg BZO, sent out for confirmation Pt had 2 Clonazepam remaining, anticipated 4. States he thinks 2 are under his dresser still. He attends methadone clinic in [place]. documented in this encounter Plan of Treatment Upcoming Encounters Date Type Department Care Team (Late st Contact Info) Description 10/11/2024 10:30 AM EDT Clinical Support [facility] MED[facility]INE [address] [place] [address] Mere Rios, HENRIK documented as of this encounter Visit Diagnoses Diagnosis Anxiety Anxiety state, unspecified documented in this encounter Additional Health Concerns Assessment Noted Time PHQ-9 Depression Total Score: 0 11/28/19 24 11:23 AM EDT documented as of this encounter Care Teams Trailhead Maintenance Worker Relationship Specialty Start Date End Date Zahraa Roca DO [address] [place] [address] PCP - General Family Medicine 07/25/18 Christian Soria FNP [address] [place] [address] Nurse Practitioner Family Medicine 06/24/23 documented as of this encounter
--- OUTSIDE RECORDS SUMMARY | 2024-10-05 16:18 | XMS_ITS | Encounter Summary ---
Author Organization [employer] Address [address] [facility] [address] 7t [place] [address] Care Team Providers Care Edging Machine Setter Name Role Phone Abelino Zahraa Primary Care Provider + [phone] Christian Soria Unavailable Unavailable Reason for Visit * Reason Comments Rectal Pain Encounter Details Date Type Department Care Team (Late st Contact Info) Description 10/05/2024 9:00 AM EDT Office Visit [facility] [address] [place] [id number] Marcos Patrick MD [address] [place] [address] Chronic left-sided low back pain without sciatica [...] 11:24 AM EST documented in this encounter Progress Notes * Marcos Patrick MD - 10/05/2024 9:00 AM EDT Images from the original note were not included. Subjective Patient ID: Cristobal Enriquez is a 54 y.o. male. HPI 2 months ago Cristobal noted a painless lump over left lower back when he was admitted [facility] for pneumonia. No drainage, fever, chills. States h/o chronic LBP that is located across lower back just below lump. He also has had 1 year h/o right buttock pain that has been worsening for past few months, comes and goes. Started when he fell on buttocks. Tylenol, lidocaine patches have not helped. No NSAIDS. No bleeding. States had colonoscopy 1 year ago, states polypectomy results were normal. Had h/o constipation from methadone. Lives alone. Not employed. Smokes 1-3 cigarettes/day. Declines NRT. In methadone program. Patient Active Problem List Diagnosis Anxiety Chronic neck pain Methadone maintenance therapy patient (CMS/HCC) Chronic constipation Anemia Osteoarthritis Spinal stenosis of lumbar region Chronic low back pain Status post right hip replacement Opioid dependence on agonist therapy ([facility]) History of hepatitis C History of tobacco use History of alcohol abuse Degeneration of intervertebral disc History of COVID-19 Severe dental caries Excessive attrition of teeth, limited to enamel Bruxism (teeth grinding) The following portions of the chart were reviewed this encounter and updated as appropriate: Tobacco Allergies Meds Problems Med Hx Surg Hx Fam Hx Review of systems: Negative for shortness of breath, chest pain, fever, weakness, numbness, abdominal pain. Objective Physical Exam Constitutional: Appearance: Normal appearance. HENT: Right Ear: Tympanic membrane, ear canal and external ear normal. Left Ear: Tympanic membrane, ear canal and external ear normal. Nose: Nose normal. Mouth/Throat: Mouth: Mucous membranes are moist. Pharynx: Oropharynx is clear. Eyes: Conjunctiva/sclera: Conjunctivae normal. Pupils: Pupils are equal, round, and reactive to light. Cardiovascular: Rate and Rhythm: Normal rate and regular rhythm. Heart sounds: No murmur heard. Pulmonary: Effort: Pulmonary effort is normal. Breath sounds: Normal breath sounds. Genitourinary: Comments: Mild tenderness to palpation over the right medial buttock area caudal and distal to the anus. No palpable mass, redness. Anus appears normal. Musculoskeletal: General: Normal range of motion. Arms: Cervical back: No tenderness. Comments: Exam of the lower back reveals a nontender, firm, bony like, small mass near the left side of the lumbar spinous processes. Skin: Findings: No rash. Neurological: Mental Status: He is alert. Gait: Gait is intact. Psychiatric: Mood and Affect: Mood normal. Behavior: Behavior normal. Procedures Assessment/Plan Diagnoses and all orders for this visit: Chronic left-sided low back pain without sciatica X-rays of lumbar spine ordered. Will call patient with report. Return to clinic if not improving - XR Lumbar Spine 2-3 Views; Future - ketorolac (Toradol) injection 30 mg Right buttock pain Given Toradol 30 mg IM at patient's request. Pelvis x-rays ordered. Will call patient with results. Return to clinic if not improving. - XR Pelvis 1-2 Views; Future Elevated blood pressure reading in office without diagnosis of hypertension Prescribed home BP monitor. Reviewed BP parameters, given written BP log that includes BP parameters, to keep daily. Call if BP readings are elevated. Other orders - Blood Pressure kit; 1 each 2 times daily. documented in this encounter Plan of Treatment Upcoming Encounters Date Type Department Care Team (Late st Contact Info) Description 10/11/2024 10:30 AM EDT Clinical Support [address] [address] Mere Rios RN documented as of this encounter Procedures Procedure Name Priority Date/Time Associated Diagnosis Comments XR PELVIS 1-2 VIEWS Routine 10/05/2024 9 :43 AM EDT Right buttock pain XR LUMBAR SPINE 2-3 VIEWS Routine 10/05/2024 9:43 AM EDT Chronic left-sided low back pain without sciatica documented in this encounter Results * XR Pelvis 1-2 Views (10/05/2024 9:43 AM EDT) Anatomical Region Laterality Modality Body, Pelvis Radiographic Nara ging 10/05/2024 9:43 AM EDT Narrative 10/05/2024 12:22 PM EDT ?[facility] ?[address] ?[place] [address] ?XRay Report ? Signed ? Patient: Szydlo,Cristobal J ?MR#: [id number] ?? 54 ? : 1970 ?Acct:[id number] ? Age/Sex: 54 / M ?ADM Date: 03/14/25 ? Loc: HO.HHCX ? Attending Dr: Marcos Patrick MD ? Ordering Physician: MARCOS PATRICK MD ?? Date of Service: 10/05/24 ?? Procedure(s): XR pelvis 1-2V ?? Accession Number(s): [id number] ? cc: MARCOS PATRICK MD ? EXAMINATION: [...] ??Wilfredo Han MD ??10/05/2024 12:19 PM EDT ? Dictated By: ?Wilfredo Han MD ? Signed By: ?<Electronically signed by Wilfredo Han MD in OV> ?10/05/24 1219 ? DD/ 0943 ? TD/TT: 10/05/24 1000 ? Chief Maintenance Supervisor: ? Procedure Note Aziza, Denys - 10/05/2024 [place] [address] XRay Report Signed Patient: Cristobal Enriquez R#: [id number] 54 : 1970Acct:[id number] Age/Sex: 54 / MADM Date: 10/05/24 Loc: HO.HHCX Attending Dr: Marcos Patrick MD Ordering Physician: MARCOS PATRICK MD Date of Service: 10/05/24 Procedure(s): XR pelvis 1-2V Accession Number(s): [id number] cc: MARCOS PATRICK MD EXAMINATION: XR PELVIS [...] 10/05/24 1219 DD/ 0943 TD/TT: 10/05/24 1000 Chief Maintenance Supervisor: Marcos Patrick MD IMG XR PROCEDURES Final Result * XR Lumbar Spine 2-3 Views (10/05/2024 9:43 AM EDT) Anatomical Region Laterality Modality Spine, L-spine Radiographic Nara ging 10/05/2024 9:43 AM EDT Narrative 10/05/2024 12:20 PM EDT ?[facility] ?[address] ?[place] [address] ?XRay Report ? Signed ? Patient: Cristobal Enriquez ?MR#: [id number] ?? 54 ? : 1970 ?Acct:[id number] ? Age/Sex: 54 / M ?ADM Date: 10/05/24 ? Loc: HO.HHCX ? Attending Dr: Marcos Patrick MD ? Ordering Physician: MARCOS PATRICK MD ?? Date of Service: 10/05/24 ?? Procedure(s): XR lumbar spine 2-3V ?? Accession Number(s): [id number] ? cc: MARCOS PATRICK MD ? EXAMINATION: [...] of L2-3 disc space with a central olkv-vo-necz appearance. ?? Moderate loss at L1-2 and [...] MD in OV> ?10/05/24 1217 ? DD/ 0943 ? TD/TT: 10/05/24 1000 ? Chief Maintenance Supervisor: ? Procedure Note Ushater, Image - 10/05/[address] [address] XRay Report Signed Patient: Cristobal Enriquez JMR#: [id number] 54 : 1970Acct:[id number] Age/Sex: 54 / MADM Date: 10/05/24 Loc: HO.HHCX Attending Dr: Marcos Patrick MD Ordering Physician: MARCOS PATRICK MD Date of Service: 10/05/24 Procedure(s): XR lumbar spine 2-3V Accession Number(s): [id number] cc: MARCOS PATRICK MD EXAMINATION: XR LUMBOSACRAL [...] of L2-3 disc space with a central fxam-wc-jcfq appearance. Moderate loss at L1-2 and L3-4 [...] 10/05/24 1217 DD/ 0943 TD/TT: 10/05/24 1000 Chief Maintenance Supervisor: Marcos Patrick MD IMG XR PROCEDURES Final Result documented in this encounter Visit Diagnoses Diagnosis Chronic left-sided [...] documented as of this encounter Care Teams Edging Machine Setter Relationship Specialty Start Date End Date Zahraa Roca DO [address] [place] [address] PCP - General Family Medicine 07/25/18 Christian Soria FNP [address] [place] [address] Nurse Practitioner Family Medicine 06/24/23 documented as of this encounter
--- OUTSIDE RECORDS SUMMARY | 2024-10-05 16:18 | XMS_ITS | Encounter Summary ---
Author Organization [employer] Address [address] [facility] [address] 7t [place] [address] Care Team Providers Care Chancellor Name Role Phone YudiZahraa barahona Primary Care Provider + [phone] Christian Soria Unavailable Unavailable Encounter Details Date [...] Description 10/11/2024 10:30 AM EDT Clinical Support [facility] [address] [place] [address] Mere Rios RN documented as of this encounter Visit Diagnoses Not on filedocumented in this encounter Additional Health Concerns Assessment Noted Time PHQ-9 Depression Total Score: 0 11/28/19 24 11:23 AM EDT documented as of this encounter Care Teams Chancellor Relationship Specialty Start Date End Date Zahraa Roca DO [address] [place] [address] PCP - General Family Medicine 07/25/18 Christian Soria FNP [address] [place] [address] Nurse Practitioner Family Medicine 06/24/23 documented as of this encounter
--- OUTSIDE RECORDS SUMMARY | 2024-10-05 16:18 | XMS_ITS | Encounter Summary ---
Author Organization [employer] Address 75 [facility] 7t [place] [address] Care Team Providers Care Brake Mechanic Name Role Phone SuryaZahraa lee Primary Care Provider + [phone] Christian Soria Unavailable Unavailable Reason for Visit * Reason Onset Date Comments UTOX confirmation Neg BZO 09/20/2024 Encounter Details Date Type Department Care Team (Late st Contact Info) Description 09/20/2024 Telephone [facility] MEDICINE [address] [place] [address] Mere Rios, HENRIK UTOX confirmation Neg BZO [...] - 09/20/2024 2:19 PM EST Pt had PRIZE FIGHTER RV appt 09/12/24. UTOX was Neg BZO, [...] Description 10/11/2024 10:30 AM EDT Clinical Support [facility] MED[facility]INE [address] [place] [address] Mere Rios, RN documented as of this encounter Visit Diagnoses Not on filedocumented in this encounter Additional Health Concerns Assessment Noted Time PHQ-9 Depression Total Score: 0 11/28/19 24 11:23 AM EDT documented as of this encounter Care Teams Brake Mechanic Relationship Specialty Start Date End Date Zahraa Roca DO [address] [place] [address] PCP - General Family Medicine 1/1/19 Christian Soria FNP [address] [place] [address] Nurse Practitioner Family Medicine 06/24/23 documented as of this encounter
--- OUTSIDE RECORDS SUMMARY | 2024-10-05 16:18 | XMS_ITS | Encounter Summary ---
Author Organization [employer] Address [address] [facility] 7t [place] [address] Care Team Providers Care Chipper Machine Operator Name Role Phone Zahraa Roca DO Primary Care Provider + [phone] Christian Soria Unavailable Unavailable Reason for Visit * Reason Onset Date Comments Recall Letter 09/21/2024 Recall Letter se nt 09/21/24. Encounter Details Date Type Department Care Team ([facility] Contact Info) Description 09/21/2024 Telephone [facility] MEDICINE [address] [place], [place] [phone] Zahraa Roca DO [address] [place], [place] [phone] Recall Letter (Recall Letter sent 09/21/24.) Social [...] Clinical Support [facility]INE [address] [place] [address] Mere Rios RN documented as of this encounter Visit Diagnoses Not on filedocumented in this encounter Additional Health Concerns Assessment Noted Time PHQ-9 Depression Total Score: 0 11/28/19 24 11:23 AM EDT documented as of this encounter Care Teams Chipper Machine Operator Relationship Specialty Start Date End Date Zahraa Roca DO [address] [place] [address] PCP - General Family Medicine 07/25/18 Christian Soria FNP [address] [place] [address] Nurse Practitioner Family Medicine 06/24/23 documented as of this encounter
--- OUTSIDE RECORDS SUMMARY | 2024-10-05 16:18 | XMS_ITS | Encounter Summary ---
Author Organization [employer] Address 75 [facility] 7t [place] [address] Care Team Providers Care Director Of Quantitative Research Name Role Phone SuryaZahraa lee Primary Care Provider + [phone] Christian Soria Unavailable Unavailable Reason for Visit * Reason Comments ANESTHESIOLOGIST/PHYSICIAN Initial ANESTHESIOLOGIST/PHYSICIAN Initial Encounter Details Date Type Department Care Team (Latest Contact Info) Description 09/12/2024 9:30 AM EST Clinical Support [facility] MEDICINE [address] [place] [address] Mere Rios RN Anxiety (Primary Dx); Opioid [...] AM EST S: Pt here for initial ANESTHESIOLOGIST/PHYSICIAN Visit. Prescribed Clonazepam 1mg QD. States he [...] is apart of a methadone clinic in [place]. O: ANESTHESIOLOGIST/PHYSICIAN Tier 1. Pt currently prescribed Clonazepam 1m QD. RADIOLOGIST verified today. Rx last filled on 08/20/24. [...] count. Last PCP visit was 06/06/24. A: ANESTHESIOLOGIST/PHYSICIAN Contract Initiation Visit, Chronic BZO use r/t anxiety. P: ANESTHESIOLOGIST/PHYSICIAN contract reviewed and signed, pt provided copy. Pt to continue taking medication only as prescribed; Next ANESTHESIOLOGIST/PHYSICIAN RV appointment scheduled for 10/10/24 @ 9am, F/U sooner PRN. Appointment reminder given. Pt verbalized understanding and agreed to plan. documented in this encounter Plan of Treatment Upcoming Encounters Date Type Department Care Team (Late st Contact Info) Description 10/11/2024 10:30 AM EDT Clinical Support [address] [address] Mere Rios, RN documented as of this encounter Procedures Procedure Name Priority Date/Time Associated Diagnosis Comments POCT MARIO-14 URINE DRUG SCREEN Routine 09/12/2024 9:54 AM EST Opioid dependence on agonist therapy ([facility]) DRUG MONITORING, BENZODIAZEPINES, QUANTITATIVE, URINE Routine 09/12/2024 9:30 AM EST Anxiety documented in this encounter Results * (ABNORMAL) POCT MARIO-14 Urine Drug Screen (09/12/2024 9:54 AM EST) THC Positive Benzodiazepines Screen, Urine Negative Methadone Screen, Urine Positive Urine Urine specimen obtained by clean catch procedure / Unknown 09/12/2024 9:54 AM EST Narrative Mere Rios RN - 09/12/2024 9:54 AM EST UTOX cup Lot#[id number] Exp. 03/13/26 Internal Pass Control Zahraa Roca DO POINT OF CARE TEST ENTER/JOANNA T ORDERABLES Final Result * Drug Monitoring, Benzodiazepines, Quantitative, Urine (09/12/2024 9:30 AM EST) Nordiazepam, GCMS Urine NEGATIVE [facility] Oxazepam, GCMS Urine NEGATIVE [facility] Lorazepam GCMS Urine NEGATIVE [facility] Alprazolam, GCMS Urine NEGATIVE [facility] Alphahydroxytriazolam, GCMS Ur NEGATIVE [facility] Temazepam, GCMS Urine NEGATIVE [facility] Alphahydroxymidazolam,GC MS Ur NEGATIVE [facility] Aminoclonazepam, GCMS Urine NEGATIVE [facility] Flurazepam Metabolite,GCMS Ur NEGATIVE [facility] Benzodiazepines Comments SEE NOTE [facility] Comment:This drug testing is for medical treatment only. Analysiswas performed as non-forensic testing and these resultsshould be used only by healthcare providers to renderdiagnosis or treatment, or to monitor progress of medicalconditions.LDT Notes:Confirmation tests were developed and their analyticalperformance characteristics have been determined by [email or web address]. It has not been cleared or approved by the FDA.This assay has been validated pursuant to the CLIAregulations and is used for clinical purposes.Healthcare Providers needing Interpretation assistance,please contact us at [phone] ( ) M-F,8am to 10pm ESTTHIS TEST PERFORMED AT:[facility] [place] [phone] DIRECTOR: SOCRATES MATHIAS MD Urine (Urine, Random) 09/12/2024 9:30 AM EST 09/12/2024 4:41 PM EST us Zahraa Roca DO LAB URINE ORDERABLES Final R esult [facility] [address] [place] [phone] documented in this encounter Visit Diagnoses Diagnosis Anxiety- Primary Anxiety state, unspecified Opioid dependence on agonist therapy (CMS/HCC) documented in this encounter Additional Health Concerns Assessment Noted Time PHQ-9 Depression Total Score: 0 11/28/19 24 11:23 AM EDT documented as of this encounter Care Teams Director Of Quantitative Research Relationship Specialty Start Date End Date Zahraa Roca DO [address] [place] [address] PCP - General Family Medicine 07/25/18 Christian Soria FNP [address] [place] [address] Nurse Practitioner Family Medicine 06/24/23 documented as of this encounter
--- OUTSIDE RECORDS SUMMARY | 2024-10-05 16:19 | XMS_ITS | Encounter Summary ---
Author Organization [employer] Address [address] [facility] [address] [place] [address] Care Team Providers Care Marbleizing Machine Tender Name Role Phone Zahraa Roca DO Primary Care Provider + [phone] Christian Soria Unavailable Unavailable Reason for Visit * Reason Comments Transition Of Care (Tcm) Encounter Details Date Type Department Care Team ([facility] st Contact Info) Description 09/17/2024 Patient Outreach [facility] [address] [place], [place] [phone] Zahraa Roca DO [address] [place] [address] Transition Of Care (Tcm) Social History Tobacco [...] your housing situation today? I have valentin ebaulieu 03/12/[address] you li [...] AM EST Hospital Discharges and Admission for [facility] Type of Visit: Emergency Department Date of Admission/Visit: 09/15/24 Date of Discharge: 09/15/24 [place] [facility] [place]: Viral upper respiratory infection, Costochondritis Disposition: Discharged Home Follow-Up Actions Follow-Up Needed: None/self-monitoring Follow-Up Outcome: Left Voicemail (VM full) Initial Contact Date: 09/17/24 Patient Contacted: Unable to leave message, full Patient Status: unknown, RN was unable to speak to patient The full discharge summary is Is available under media scanned document Review Flowsheet [facility] Transition of Care Documentation Type of Visit Date of Admission/Visit Date of Discharge Facility Diagnosis Disposition 07/29/2023 9:58 AM Hospital Admission 07/26/2023 07/28/2023 [facility] S/P total left hip arthroplastyDischarged Home 07/24/2024 12:50 PM Emergency Department 07/23/2024 07/23/2024 [facility] R foot pain Discharged Home 07/26/2024 9:00 AM Emergency Department 07/23/2024 07/23/2024 [facility] [place] V[place] Disease and Venous insufficiency Discharged Home 09/17/2024 10:17 AM Emergency Department 09/15/2024 09/15/2024 [facility] Viral upper respiratory infection, Costochondritis Discharged Home Recent Visits Date Type Provider Dept 06/06/24 Office Visit Zahraa Roca DO [facility] Medicine 03/12/24 Office Visit Zahraa Roca DO [facility] Medicine 10/19/23 Office Visit Zahraa Roca DO [facility] Medicine Showing recent visits within past [...] Description 10/11/2024 10:30 AM EDT Clinical Support [facility] [address] [place] [address] Mere Rios, HENRIK documented as of this encounter Visit Diagnoses Not on filedocumented in this encounter Additional Health Concerns Assessment Noted Time PHQ-9 Depression Total Score: 0 11/28/19 11:23 AM EDT documented as of this encounter Care Teams Marbleizing Machine Tender Relationship Specialty Start Date End Date Zahraa Roca DO [address] [place] [address] PCP - General Family Medicine 07/25/18 Christian Soria FNP [address] [place] [address] Nurse Practitioner Family Medicine 06/24/23 documented as of this encounter
[2024-10-15 12:16] VITALS: BP 92/52; PULSE 59; RESP 18; O2SAT 97; BMI 24.8
--- NOTE | 2024-10-15 12:29 | ECG_ITS ---
Test Reason : PRE OP Blood Pressure : */* mmHG Vent. Rate : 49 BPM Atrial Rate : 49 BPM P-R Int : 148 ms QRS Dur : 94 ms QT Int : 484 ms P-R-T Axes : -59 60 53 degrees QTcB Int : 437 ms Unusual P axis, possible ectopic atrial bradycardia with undetermined rhythm irregularity Abnormal ECG When compared with ECG of 15-Jul-2023 12:59, Ectopic atrial rhythm has replaced Sinus rhythm Referred By: Billie Dozier Electronically Signed By: JAY RHOADES MD
[2024-10-15 14:31] LABS: Hematocrit 35.3 % (42.0-52.0); Hemoglobin 11.3 g/dl (14.0-18.0); Mean Corpuscular Hemoglobin 29.7 pg (27.0-33.0); Mean Corpuscular Volume 92.9 fL (80.0-98.0); Mean Platelet Volume 11.2 fL (9.4-12.4); Platelet Count 184 X10*3/uL (160-400); Red Cell Distribution Width 12.1 % (11.0-16.0); White Blood Count 7.6 X10*3/uL (4.8-10.8)
[2024-10-15 15:06] LABS: Anion Gap 9 (12-20); Blood Urea Nitrogen 13 mg/dL (9-16); Calcium 8.7 mg/dL (8.4-10.2); Carbon Dioxide 30 mmol/L (22-29); Chloride 104 mmol/L (96-108); Creatinine Clr Calc Pharmacy 107.8; Estimated Glomerular Filt Rate > 60; Glucose Random 102 mg/dL (60-115); Sodium 139 mmol/L (135-145)
--- NOTE | 2024-10-18 12:06 | P.HPSUR_ITS ---
Pre-Procedural Eval Section A - 24 Hr Update-Section A only Date of Service: 10/19/24 The patient is an INPATIENT: No Changes since office visit: No Cold of Flu in the past 2 weeks, No New Medical Problems, No Changes in Medication and No Patient answered all questions Section B - Complete if H&P > 30 days Chief Complaint: Squamous cell carcinoma of skin, unspecified Allergies: Allergies Allergy/AdvReac Type Severity Reaction Status Date / Time No Known Allergies Allergy Verified 10/04/24 09:45 Review of Systems Sugical H&P ROS: Negative: Constitution, Cardiovascular, Respiratory, Neurological, Psychiatric, Hem-Onc, Allergic/Immunologic, Gastrointestinal, Genitourinary, Musculoskeletal, Integumentary, Endocrine and Eyes/E ars/Nose/Throat Exam Surgical H&P Exam: Normal: HEENT, Normal: Heart, Normal: Lungs, Normal: Extremities, Normal: Abdomen, Normal: Skin and Normal: Neurological Plan I have reviewed the history and physical and performed a pertinent physical examination on my patient. No changes have occurred unless specified. Time Spent With Patient Time: Total time managing care of this patient today ____ minutes.
[2024-10-19 09:37] VITALS: BP 132/82; PULSE 53; RESP 16; TEMP 36.8; O2SAT 95; BMI 23.8
[2024-10-19 10:04] LABS: Amphetamine Screen Urine Not Detected (Not Detect); Barbiturates, Urine Not Detected (Not Detect); Benzodiazepines Screen Urine Not Detected (Not Detect); Buprenorphine Scr Not Detected (Not Detect); Cannabinoid Screen Urine POSITIVE (Not Detect); Cocaine Screen Urine POSITIVE (Not Detect); Fentanyl, urine Not Detected (Not Detect); Methadone Screen, Urine Positive (Not Detect); Opiate Screen Urine Not Detected (Not Detect); Oxycodone Screen Urine Not Detected (Not Detect); Phencyclidine Screen Urine Not Detected (Not Detect)
--- NOTE | 2024-10-19 10:35 | P.CONAN_ITS ---
Documented by User: Kathleen Patino NP 10/18/24 12:43 HPI - Anesthesia Eval Consult details Narrative: 54yo M for Right Wide Local Excision groin Squamous Cell Carcinoma PAT 10/15/[address] Jacoby BOSTON Active Problems Active Problems: All Active Problems Squamous cell carcinoma of skin (Acute) Fibroepithelial polyp (Acute) Raised seborrheic keratosis (Acute) Mass of right inguinal region (Acute) Varicose veins of right lower extremity with inflammation (Acute) Multiple lipomas (Acute) Foreign body of elbow (Acute) Varicose veins of both lower extremities with inflammation (Acute) Degenerative scoliosis (Acute) Lumbago (Acute) S/P total left hip arthroplasty (Acute) Osteoarthritis of left hip (Acute) Encounter for screening colonoscopy (Acute) S/P total right hip arthroplasty (Acute) Primary osteoarthritis of right hip (Acute) COVID-19 (Acute) History of alcohol abuse (Acute) Hx of substance abuse (Acute) Chronic right hip pain (Acute) Degenerative disc disease (Acute) Chronic back pain (Acute) Chronic anemia (Acute) Anxiety (Acute) Past Medical History Medical History (Updated 10/15/24 @ 12:50 by Marbella De La Torre RN) Pneumonia Low BP Rash Family history of pseudocholinesterase deficiency Alcohol dependence in remission Hx of substance abuse Chronic right hip pain Degenerative disc disease Chronic back pain History of hepatitis C Chronic anemia Anxiety Family History Family History Mother Osteoarthritis Family history of problems with anesthesia: Yes Surgical History Surgical History (Updated 10/15/24 @ 12:00 by Marbella De La Torre RN) History of left hip replacement History of total right hip arthroplasty Hx of colonoscopy History of surgery History of right inguinal hernia repair History of laminectomy History of Problems with Anesthesia: No Social History Social History Household Members: None Housing: Apartment Housing Other:: second floor Are you a primary medication care manager to a significant other at home: No Do you presently have visiting nurse or other home services: No Alcohol intake: never Comment: Pt. refused supervision/ steady walking with crutches. Patient Tobacco Use Status: Current everyday Tobacco user Tobacco use type: Cigarette Cigarettes Per Day: 3 Years Smoked: 40 Smoked in Last 30 Days: Yes Substance Use Type: Amphetamines and Crack/Cocaine Substance Use Type Other:: current marijuana Q2 days/cocaine & alcohol has not used since 01/2024 Have you been hit, kicked, punched, or otherwise hurt by someone within the past year? If so, by whom?: No Spiritual Healthcare Practices: none Anabaptist Healthcare Practices: Scientology Cultural Healthcare Practices: none Are you DNR?: No Advance Directives: No (mother is primary contact) Advance Directives Information Provided: Yes Advance Directives on File: No Recently lost weight without trying: No Eating poorly because of decreased appetite: No Nutrition Risks: No Nutritional Risk Poor oral hygiene: Yes (missing/broken teeth-no loose teeth) service: No Current occupational status: disabled Meds Allergies Allergy/AdvReac Type Severity Reaction Status Date / Time No Known Allergies Allergy Verified 10/04/24 09:45 Home Medications ?Medication ?Instructions ?Recorded ?Confirmed ?Last Taken ?Type clonazepam 1 mg tablet 1 mg PO QAM 05/22/20 10/15/24 07/26/23 06:00 History rfzcejnhbcux-sstkmthp-izqg 1 tab PO DAILY 07/26/23 10/15/24 Unknown History fumarate 7.5 mg-folic acid 400 mcg tablet albuterol sulfate 90 mcg/actuation 2 puff inhalation Q4-6H PRN 10/15/24 10/15/24 Unknown History aerosol inhaler (Ventolin HFA) Shortness Of Breath Or Wheezing gabapentin 300 mg capsule 300 mg PO BEDTIME 10/15/24 10/15/24 Unknown History methadone 10 mg/mL oral concentrate 70 mg PO QAM 10/15/24 10/15/24 Unknown History Exam Height,Weight and Vital Signs: Height 5 ft 10 in Weight 78.471 kg Last Vital Signs Pulse 59 10/15/24 12:16 Resp 18 10/15/24 12:16 BP 92/52 L 10/15/24 12:16 Pulse Ox 97 10/15/24 12:16 O2 Del Method Room Air 10/15/24 12:16 Pertinent Lab Results Pertinent Lab Results: Laboratory Tests 10/15/24 12:57 WBC 7.6 RBC 3.80 L Hgb 11.3 L Hct 35.3 L MCV 92.9 MCH 29.7 MCHC 32.0 RDW 12.1 Plt Count 184 MPV 11.2 Absolute Nucleated RBC 0.000 Nucleated RBC % (auto) 0.0 Sodium 139 Potassium 4.0 Chloride 104 Carbon Dioxide 30 H Anion Gap 9 L BUN 13 Creatinine 0.79 Estim Creat Clear Calc 107.8 Estimated GFR > 60 Random Glucose 102 Calcium 8.7 Narrative Narrative: EKG 09/2024 Vent. Rate : 49 BPM Atrial Rate : 49 BPM P-R Int : 148 ms QRS Dur : 94 ms QT Int : 484 ms P-R-T Axes : -59 60 53 degrees QTcB Int : 437 ms Unusual P axis, possible ectopic atrial bradycardia with undetermined rhythm irregularity Abnormal ECG When compared with ECG of 15-Jul-2023 12:59, Ectopic atrial rhythm has replaced Sinus rhythm Assessment and Plan Assessment Anesthesia Assessment: Chart Reviewed Final Anesthetic Review Family History of Problems with Anesthesia: Yes History of Problems with Anesthesia: No Documented by User: Shelli Arnett DO 10/19/24 10:41 HPI - Anesthesia Eval Consult details Narrative: 54yo M for Right Wide Local Excision groin Squamous Cell Carcinoma Patient tested positive for cocaine, THC, and methadone on day of surgery. Patient denied any use of cocaine for 11 years and reports that his marijuana may have been mixed with it. He had a similar event happen when tested at the methadone clinic - positive for THC and cocaine. Currently on methadone 70 mg daily. [facility] Past Medical History Medical History (Updated 10/15/24 @ 12:50 by Marbella De La Torre RN) Pneumonia Low BP Rash Family history of pseudocholinesterase deficiency Alcohol dependence in remission Hx of substance abuse Chronic right hip pain Degenerative disc disease Chronic back pain History of hepatitis C Chronic anemia Anxiety Family History Family History Mother Osteoarthritis Family history of problems with anesthesia: No Surgical History Surgical History (Updated 10/15/24 @ 12:00 by Marbella De La Torre RN) History of left hip replacement History of total right hip arthroplasty Hx of colonoscopy History of surgery History of right inguinal hernia repair History of laminectomy History of Problems with Anesthesia: No Social History Social History Household Members: None Housing: Apartment Housing Other:: second floor Are you a primary medication care manager to a significant other at home: No Do you presently have visiting nurse or other home services: No Alcohol intake: never Comment: Pt. refused supervision/ steady walking with crutches. Patient Tobacco Use Status: Current everyday Tobacco user Tobacco use type: Cigarette Cigarettes Per Day: 3 Years Smoked: 40 Smoked in Last 30 Days: Yes Substance Use Type: Amphetamines and Crack/Cocaine Substance Use Type Other:: current marijuana Q2 days/cocaine & alcohol has not used since 01/2024 Have you been hit, kicked, punched, or otherwise hurt by someone within the past year? If so, by whom?: No Spiritual Healthcare Practices: none Anabaptist Healthcare Practices: Scientology Cultural Healthcare Practices: none Are you DNR?: No Advance Directives: No (mother is primary contact) Advance Directives Information Provided: Yes Advance Directives on File: No Recently lost weight without trying: No Eating poorly because of decreased appetite: No Nutrition Risks: No Nutritional Risk Poor oral hygiene: Yes (missing/broken teeth-no loose teeth) service: No Current occupational status: disabled Meds Allergies Allergy/AdvReac Type Severity Reaction Status Date / Time No Known Allergies Allergy Verified 10/04/24 09:45 Home Medications ?Medication ?Instructions ?Recorded ?Confirmed ?Last Taken ?Type clonazepam 1 mg tablet 1 mg PO QAM 05/22/20 10/15/24 07/26/23 06:00 History xebeltjwadjl-fppsqalx-ezwl 1 tab PO DAILY 07/26/23 10/15/24 Unknown History fumarate 7.5 mg-folic acid 400 mcg tablet albuterol sulfate 90 mcg/actuation 2 puff inhalation Q4-6H PRN 10/15/24 10/15/24 Unknown History aerosol inhaler (Ventolin HFA) Shortness Of Breath Or Wheezing gabapentin 300 mg capsule 300 mg PO BEDTIME 10/15/24 10/15/24 Unknown History methadone 10 mg/mL oral concentrate 70 mg PO QAM 10/15/24 10/15/24 Unknown History Exam Exam Date and Time: 10/19/24 1030 Airway Mallampati Class: II TM Dist: >3cm Neck ROM: Full Loose/Missing/Broken Teeth: Yes (multiple missing and broken teeth) Heart: S1S2 Lungs: CTAB Assessment and Plan Assessment Anesthesia Assessment: Anesthesia Plan Discussed and Chart Reviewed Final Anesthetic Review Family History of Problems with Anesthesia: No History of Problems with Anesthesia: No NPO: Yes ASA Class: III Final Preanesthetic Review: No Changes in Pt Med Stat, Meds/Allgs Chart Reviewed, Consent Obtained/Reviewed and Anes Risks/Benef Reviewed Patient Risk: Intermediate Procedure Risk: Low Anesthetic Plan Anesthetic Plan: GA (vs MAC) and Agree w/ Assess. and Plan Disposition: Standard PACU
--- NOTE | 2024-10-19 12:04 | W.PM.OPN ---
Operative Note Operative Note Date of Service: 10/19/24 Narrative: Preoperative diagnosis: [] Squamous cell carcinoma right groin Postop diagnosis: [] The same Procedure [] wide local excision squamous carcinoma right groin Surgeon: [] Emmett Conference Specialist: [] Type of Anesthesia: [] MAC Indication for surgery: [] Patient underwent prior office excisional biopsy of right groin lesion. This showed a squamous cell carcinoma with positive margins. Patient now presents for wide local excision. Final specimen measured roughly 8 x 5 cm. Findings: [] Patient was brought to the operating room, placed on operative table supine position, after an adequate level of MAC anesthesia was induced, the right groin was prepped and draped in usual sterile fashion. Using a transverse bi- elliptical incision encompassing the prior incision site to grossly clear margins, this carried down through skin, subcutaneous tissue,excised, tagged and sent to pathology for permanent specimen. Wound was irrigated, secured hemostasis, and closed using interrupted inverted dermal 3-0 Vicryl sutures followed by Steri-Strips and sterile dressings. Wound was infiltrated at the beginning and at the end of the case with 0.5% Marcaine/1% lidocaine. Sponge, needle, and instrument counts were reported correct. Patient tolerated the procedure well and emerged from anesthesia stable condition. EBL minimal
[2024-10-19 12:15] VITALS: BP 97/56; PULSE 50; RESP 16; TEMP 36.2; O2SAT 99
[2024-10-19 12:20] VITALS: BP 98/56; PULSE 46; RESP 17; O2SAT 99
[2024-10-19 12:30] VITALS: BP 105/66; PULSE 45; RESP 16; O2SAT 94
[2024-10-19 12:45] VITALS: BP 104/67; PULSE 53; RESP 18; TEMP 36.2; O2SAT 96
== END 2024-10-19 13:36 | disposition home or self-care (01) ==
PROVIDERS: Anesthesiology; Nurse Practitioner; PCP Family Medicine; Visit Provider Surgery
PROC: (CPT 11606; principal; 2024-10-19 11:30)
DX: C44.529 Squamous cell carcinoma of skin of other part of trunk (principal); L90.5 Scar conditions and fibrosis of skin; F15.90 Other stimulant use, unspecified, uncomplicated; F14.90 Cocaine use, unspecified, uncomplicated; F10.21 Alcohol dependence, in remission; F17.210 Nicotine dependence, cigarettes, uncomplicated; Z98.890 Other specified postprocedural states
CPT/HCPCS: 11606; 36415; 80048; 80307; 85027; 88305; 93005; J0690; J2003; J2405; J2704; J3010

== ENCOUNTER → 2024-10-19 09:13 | Outpatient (BNV) | payer MEDICARE, MEDICAID, SELFPAY | PROVIDERS: PCP Family Medicine; Visit Provider Surgery | DX: C44.722 Squamous cell carcinoma of skin of right lower limb, including hip (principal) | CPT/HCPCS: 11606 ==

== ENCOUNTER 2024-10-29 11:49 | Outpatient (AMB) | payer MEDICARE, MEDICAID, SELFPAY ==
--- NOTE | 2024-10-29 11:58 | MHC.OFFVIS ---
Intake Visit Reasons: wound check Intake Note: Patient called to be seen c/o wound infection. Hx wide local excision squamous carcinoma right thigh. Patient c/o: redness, inflammation. WLE: 10-19-2024 Glass Washer Required: No Accompanied by: Self / Same As Patient Allergies No Known Allergies Allergy (Verified 10/04/24 09:45) HPI Comments Details: Patient presents for follow-up. Aside from incisional discomfort which is improving he is otherwise doing well. Pathology shows complete excision of the squamous cell carcinoma. [facility] Medical History (Updated 10/15/24 @ 12:50 by Marbella De La Torre RN) Pneumonia Low BP Rash Family history of pseudocholinesterase deficiency Alcohol dependence in remission Hx of substance abuse Chronic right hip pain Degenerative disc disease Chronic back pain History of hepatitis C Chronic anemia Anxiety Surgical History (Updated 10/29/24 @ 12:04 by Sergei Christine MD) History of left hip replacement History of total right hip arthroplasty Hx of colonoscopy History of surgery History of right inguinal hernia repair History of laminectomy Family History Mother Osteoarthritis Social History Household Members: None Housing: Apartment Housing Other:: second floor Are you a primary patient care associate to a significant other at home: No Do you presently have visiting nurse or other home services: No Alcohol intake: never Comment: Pt. refused supervision/ steady walking with crutches. Patient Tobacco Use Status: Current everyday Tobacco user Tobacco use type: Cigarette Cigarettes Per Day: 3 Years Smoked: 40 Substance Use Type: Amphetamines and Crack/Cocaine service: No Current occupational status: disabled Physical Exam Extrem Other: Groin incision clean dry and intact healing uneventfully Assessment & Plan Assessment & Plan (1) Encounter for postoperative wound check: Code(s): Z48.89 - Encounter for other specified surgical aftercare Category: Surgical Plan Patient was been given local instructions and will otherwise follow-up p.r.n.. He was subcuticular sutures which will require 4-6 weeks before they dissolve. All questions answered. I recommend he undergo dermatologic annual evaluation per through his medical doctor for skin cancer surveillance. Coding Level of Care Code Global (63079) Diagnoses Encounter for postoperative wound check Z48.89
--- OUTSIDE RECORDS SUMMARY | 2024-10-29 14:17 | XMS_ITS | Encounter Summary ---
Author Organization [employer] Address [address] [place] [address] Care Team Providers Care Ferry Terminal Agent Name Role Phone Zahraa Roca DO Primary Care Provider + [phone] Christian Soria Unavailable Unavailable Encounter Details Date Type Department Care Team (Late st Contact Info) Description 08/12/2022 Orders Only [facility] MED & PEDS [address] [place] [address] Zahraa Andino LPN Social History Tobacco Use [...] Description 11/13/2024 1:00 PM EDT Clinical Support [facility] MEDICINE [address] [place] [address] 11/23/2024 1:30 PM EDT Office Visit [facility] ADULT DENTAL [address] [place] [address] Cristian Finley DDS [address] [place] [address] 12/26/2024 9:00 AM EDT Office Visit [facility] ADULT DENTAL [address] [place] [address] Elis Arce documented as of this encounter Visit Diagnoses Not on filedocumented in this encounter Care Teams Ferry Terminal Agent Relationship Specialty Start Date End Date Zahraa Roca DO [address] [place] [address] PCP - General Family Medicine 07/25/18 Christian Soria FNP [address] [place] [address] Nurse Practitioner Family Medicine 06/24/23 documented as of this encounter
--- OUTSIDE RECORDS SUMMARY | 2024-10-29 14:17 | XMS_ITS | Encounter Summary ---
Author Organization [employer] Address [address] [facility] [address] [place] [address] Care Team Providers Care Lineman Apprentice Name Role Phone Zahraa Roca DO Primary Care Provider + [phone] Christian Soria Unavailable Unavailable Reason for Visit * Reason Onset Date Comments PT-1 03/15/2024 Encounter Details Date Type Department Care Team ([facility] st Contact Info) Description 03/15/2024 Telephone [facility] [address] [place], [place] [phone] Zahraa Roca DO [address] [place], [place] [phone] PT-1 Social History Tobacco Use Types Packs/Day [...] Y/N: Yes Provider name or facility name: [facility] Facility Address: [address] [place] [address] Escort needed: Y/N: No Do you have a wheelchair: Y/N: No If yes- Manual or electric: no Visits: 3 documented in this encounter Plan of Treatment Upcoming Encounters Date Type Department Care Team (Late st Contact Info) Description 11/13/2024 1:00 PM EDT Clinical Support [facility] [address] [place] [address] 11/23/2024 1:30 PM EDT Office Visit [facility] ADULT [facility]ENTAL [address] [place] [address] Cristian Finley DDS [address] [place] [address] 12/26/2024 9:00 AM EDT Office Visit [facility] [address] [place] [address] Elis Arce documented as of this encounter Visit Diagnoses Not on filedocumented in this encounter Additional Health Concerns Assessment Noted Time PHQ-9 Depression Total Score: 0 11/28/19 24 11:23 AM EDT documented as of this encounter Care Teams Lineman Apprentice Relationship Specialty Start Date End Date Zahraa Roca DO [address] [place] [address] PCP - General Family Medicine 07/25/18 Christian Soria FNP [address] [place] [address] Nurse Practitioner Family Medicine 06/24/23 documented as of this encounter
--- OUTSIDE RECORDS SUMMARY | 2024-10-29 14:17 | XMS_ITS | Encounter Summary ---
Author Organization [employer] Address [address] [facility] [address] [place] [address] Care Team Providers Care Outside Machinist Helper Name Role Phone Zahraa Roca DO Primary Care Provider + [phone] Christian Soria Unavailable Unavailable Reason for Visit * Reason Onset Date Comments PT1 01/03/2024 Encounter Details Date Type Department Care Team ([facility] st Contact Info) Description 01/03/2024 Telephone [facility] MEDICINE [address] [place], [place] [phone] Zahraa Roca DO [address] [place], [place] [phone] PT1 Social History Tobacco Use Types Packs/Day [...] facility name: [facility] clinic Facility Address: [address] [place] [address] Escort needed: Y/N: No Do you have a wheelchair: Y/N: No If yes- Manual or electric: none Visits: 7 days a week documented in this encounter Plan of Treatment Upcoming Encounters Date Type Department Care Team ([facility] Contact Info) Description 11/13/2024 1:00 PM EDT Clinical Support [facility] MEDICINE [address] [place] [address] 11/23/2024 1:30 PM EDT Office Visit [facility] ADULT DENTAL [address] [place] [address] Cristian Finley DDS [address] [place] [address] 12/26/2024 9:00 AM EDT Office Visit [facility] ADULT DENTAL [address] [place] [address] Elis Arce documented as of this encounter Visit Diagnoses Not on filedocumented in this encounter Additional Health Concerns Assessment Noted Time PHQ-9 Depression Total Score: 0 11/28/19 24 11:23 AM EDT documented as of this encounter Care Teams Outside Machinist Helper Relationship Specialty Start Date End Date Zahraa Roca DO [address] [place] [address] PCP - General Family Medicine 07/25/18 Christian Soria FNP [address] [place] [address] Nurse Practitioner Family Medicine 06/24/23 documented as of this encounter
--- OUTSIDE RECORDS SUMMARY | 2024-10-29 14:17 | XMS_ITS | Encounter Summary ---
Author Organization [employer] Address [address] [facility] [address] [place] [address] Care Team Providers Care Manager Knowledge Name Role Phone Zahraa Roca DO Primary Care Provider + [phone] Christian Soria Unavailable Unavailable Reason for Visit * Reason Onset Date Comments PT-1 04/17/2024 Encounter Details Date Type Department Care Team ([facility] st Contact Info) Description 04/17/2024 Telephone [facility] MEDICINE [address] [place], [place] [phone] Zahraa Roca DO [address] [place], [place] [phone] PT-1 Social History Tobacco Use Types Packs/Day [...] Yes Provider name or facility name: [facility] Facility Address: [address] [place] [address] Escort needed: Y/N: No Do you have a wheelchair: Y/N: No If yes- Manual or electric: N/A Visits: Twice a month documented in this encounter Plan of Treatment Upcoming Encounters Date Type Department Care Team (Late st Contact Info) Description 11/13/2024 1:00 PM EDT Clinical Support [facility] MEDICINE [address] [place] [address] 11/23/2024 1:30 PM EDT Office Visit [facility] ADULT DENTAL [address] [place] [address] Cristian Finley DDS [address] [place] [address] 12/26/2024 9:00 AM EDT Office Visit [facility] ADULT DENTAL [address] [place] [address] Elis Arce documented as of this encounter Visit Diagnoses Not on filedocumented in this encounter Additional Health Concerns Assessment Noted Time PHQ-9 Depression Total Score: 0 11/28/19 24 11:23 AM EDT documented as of this encounter Care Teams Manager Knowledge Relationship Specialty Start Date End Date Zahraa Roca DO [address] [place] [address] PCP - General Family Medicine 07/25/18 Christian Soria FNP [address] [place] [address] Nurse Practitioner Family Medicine 06/24/23 documented as of this encounter
--- OUTSIDE RECORDS SUMMARY | 2024-10-29 14:17 | XMS_ITS | Encounter Summary ---
Author Organization [employer] Address [address] [facility] [address] [place] [address] Care Team Providers Care Superintendent Cemetery Name Role Phone Zahraa Roca DO Primary Care Provider + [phone] Christian Soria Unavailable Unavailable Encounter Details Date Type Department Care Team (Late st Contact Info) Description 07/06/2022 Orders Only [facility] CHC MED & PEDS [address] [place] [address] Zahraa Andino LPN Social History Tobacco Use [...] Description 11/13/2024 1:00 PM EDT Clinical Support [facility] MEDICINE [address] [place] [address] 11/23/2024 1:30 PM EDT Office Visit [facility] ADULT DENTAL [address] [place] [address] Cristian Finley DDS [address] [place] [address] 12/26/2024 9:00 AM EDT Office Visit [facility] ADULT DENTAL [address] [place] [address] Elis Arce documented as of this encounter Visit Diagnoses Not on filedocumented in this encounter Care Teams Superintendent Cemetery Relationship Specialty Start Date End Date Zahraa Roca DO [address] [place] [address] PCP - General Family Medicine 07/25/18 Christian Soria FNP [address] [place] [address] Nurse Practitioner Family Medicine 06/24/23 documented as of this encounter
--- OUTSIDE RECORDS SUMMARY | 2024-10-29 14:17 | XMS_ITS | Encounter Summary ---
Author Organization [email or web address] Address [address] [place] [address] Care Team Providers Care Fisheries Officer Name Role Phone Zahraa Roca DO Primary Care Provider + [phone] Christian Soria Unavailable Unavailable Encounter Details Date Type Department Care Team (Late st Contact Info) Description 04/17/2024 Telephone [facility] ADULT DENTAL [address] [place], [place] [phone] Lore Vargas DDS [address] [place] [address] Social History Tobacco Use Types Packs/Day Years [...] Support [facility] MEDICINE [address] [place] [address] 11/23/2024 1:30 PM EDT Office Visit [facility] ADULT DENTAL [address] [place] [address] Cristian Finley DDS [address] [place] [address] 12/26/2024 9:00 AM EDT Office Visit [facility] ADULT DENTAL [address] [place] [address] Elis Arce documented as of this encounter Visit Diagnoses Not on filedocumented in this encounter Additional Health Concerns Assessment Noted Time PHQ-9 Depression Total Score: 0 05/06/20 24 11:23 AM EDT documented as of this encounter Care Teams Fisheries Officer Relationship Specialty Start Date End Date Zahraa Roca DO [address] [place] [address] PCP - General Family Medicine 07/25/18 Christian Soria FNP [address] [place] [address] Nurse Practitioner Family Medicine 06/24/23 documented as of this encounter
--- OUTSIDE RECORDS SUMMARY | 2024-10-29 14:17 | XMS_ITS | Encounter Summary ---
Author Organization [employer] Address [address] [facility] [address] [place] [address] Care Team Providers Care Heddler Tier Name Role Phone Zahraa Roca DO Primary Care Provider + [phone] Christian Soria Unavailable Unavailable Reason for Visit * Reason Onset Date Comments Appointment Request 06/19/2024 Encounter Details Date Type Department Care Team ([facility] Contact Info) Description 06/19/2024 Telephone [facility] [address] [place], [place] [phone] Zahraa Roca DO [address] [place], [place] [phone] Appointment Request Social History Tobacco Use Types [...] 11/13/2024 1:00 PM EDT Clinical Support [facility] [address] [place] [address] 11/23/2024 1:30 PM EDT Office Visit [facility] [address] [place] [address] Cristian Finley DDS [address] [place] [address] 12/26/2024 9:00 AM EDT Office Visit [facility] [address] [place] [address] Elis Arce documented as of this encounter Visit Diagnoses Not on filedocumented in this encounter Additional Health Concerns Assessment Noted Time PHQ-9 Depression Total Score: 0 11/28/19 24 11:23 AM EDT documented as of this encounter Care Teams Heddler Tier Relationship Specialty Start Date End Date Zahraa Roca DO [address] [place] [address] PCP - General Family Medicine 07/25/18 Christian Soria FNP [address] [place] [address] Nurse Practitioner Family Medicine 06/24/23 documented as of this encounter
--- OUTSIDE RECORDS SUMMARY | 2024-10-29 14:17 | XMS_ITS | Clinical Summary ---
Author Organization [employer] Address [address] [facility] [address] [place] [address] Care Team Providers Care Curtain Fitter Name Role Phone AbelinoZahraa Primary Care Provider + [phone] Christian Soria Unavailable Unavailable Allergies No known [...] 2024. 28 tablet 10/16/19 25 025 Active methocarbamol (Robaxin) 750 MG tablet Take 1 tablet (750 mg) by mouth if needed in the morning, at noon, and at bedtime for muscle spasms. 60 tablet 3 10/19/19 25 025 Active amitriptyline (Elavil) 10 MG tablet Take 1 tablet (10 mg) by mouth at bedtime. 30 tablet 3 10/20/19 025 Active Multiple Vitamins-Mine rals (multivitamin with minerals) tablet TAKE 1 TABLET BY MOUTH EVERY DAY WITH FOOD 90 tablet 3 01/01/20 025 Discontinued(Me d list cleanup (will not trigger notification to Pharmacy)) acetaminophen (Tylenol 8 Hour) 650 MG ER tablet TAKE 1 TABLET BY MOUTH EVERY 6 HOURS NEEDED FOR MILD PAIN 100 tablet 2 03/18/20 025 Discontinued(Me d list cleanup (will not trigger notification to Pharmacy)) cyclobenzapri ne (Flexeril) 10 MG tabletIndicat ions:Chronic neck pain TAKE 1 TABLET BY MOUTH THREE TIMES DAILY NEEDED FOR MUSCLE SPASMS OR PAIN 60 tablet 3 07/13/20 025 Discontinued(Me d list cleanup (will not trigger notification to Pharmacy)) amitriptyline (Elavil) 75 MG tabletIndicat ions:Chronic neck pain TAKE 1 TABLET BY MOUTH EVERY DAY AT BEDTIME 30 tablet 3 12/16/19 025 Discontinued(Me d list cleanup (will not trigger notification to Pharmacy)) gabapentin (Neurontin) 600 MG tabletIndicat ions:Chronic neck pain TAKE 1 TABLET BY MOUTH EVERY MORNING 30 tablet 3 12/16/19 025 Discontinued(Me d list cleanup (will not trigger notification to Pharmacy)) ibuprofen 600 MG tablet Take 1 tablet (600 mg) by mouth every 6 (six) hours if needed for mild pain for up to 20 doses. 20 tablet 05/03/20 025 Discontinued(Me d list cleanup (will not trigger notification to Pharmacy)) acetaminophen (Tylenol) 500 MG tablet Take 1 tablet (500 mg) by mouth every 6 (six) hours if needed for mild pain for up to 20 doses. 20 tablet 05/03/20 025 Discontinued(Me d list cleanup (will not trigger notification to Pharmacy)) clonazePAM (KlonoPIN) 1 MG tabletIndicat ions:Anxiety Take 1 tablet (1 mg) by mouth Once per day for 28 days. Do not start before September 17, 2024. 28 tablet 09/17/19 25 025 Discontinued(Re order (will not trigger notification to Pharmacy)) amitriptyline (Elavil) 10 MG tablet Take 1 tablet (10 mg) by mouth at bedtime. 30 tablet 3 10/19/19 25 025 Discontinued Hospital, Clinic, or Other Facility Administered Medication [...] any issues or concerns, he should contact [facility]. All his questions were answered. [...] Opioid dependence 04/05/2016 08/24/2022 Cocaine dependence 04/05/2016 Encounters * This document contains information received from the source organization and may not represent a complete record from that organization. Date Type Department Care Team Description 10/29/2024 Telephone [facility] [place] [address] Zahraa Roca DO Med Refill 10/24/2024 Patient Outreach [facility] [place] [address] Zahraa Roca DO Care Coordination (CHW outreach for SDOH PT-1 and food needs-referral completed /) 10/24/2024 Telephone [facility] [place] [address] Zahraa Roca DO PT1 10/19/2024 Orders Only GENERIC EXTERNAL DATA DEPARTMENT Provider, Generic External Data 10/18/2024 Refill [facility] [place] [address] Zahraa Roca DO 10/18/2024 Refill [facility] [place] [address] Zahraa Roca DO 10/16/2024 11:45 AM EDT Office Visit [facility] [place] [address] Zahraa Roca DO Chronic bilateral low back pain, unspecified whether sciatica present (Primary Dx) 10/16/2024 Travel 10/15/2024 Orders Only GENERIC EXTERNAL DATA DEPARTMENT Provider, Generic External Data 10/11/2024 10:30 AM EDT Clinical Support [address] [address] Mere Rios RN Chronic left-sided low back pain without sciatica (Primary Dx) 10/11/2024 Orders Only [address] [address] Zahraa Roca DO 10/11/[address] [address] Mere Rios RN Anxiety 10/11/2024 Travel 10/10/2024 Orders Only [address] [address] Zahraa Roca DO 10/09/2024 Patient Outreach [address] [address] Zahraa Roca DO Care Coordination (CHW outreach for SDOH PT-1 and food needs-referral completed /) 10/08/2024 Patient Outreach [address] [address] Zahraa Roca DO Transition Of Care (Tcm) (HDF- Rescheduled HDF appt) 10/08/2024 Patient Outreach [address] [address] Zahraa Roca DO Transition Of Care (Tcm) (HDF- scheduled and SDOH screening negative and Tobacco screening positive) 10/07/2024 Telephone [facility] [address] [place], [place] [phone] Renate Solorzano MD 10/05/2024 9:00 AM EDT Office Visit [facility] [address] [place] [address] [phone] Marcos Mckeon MD Chronic left-sided low back pain without sciatica (Primary Dx); Right buttock pain; Elevated blood pressure reading in office without diagnosis of hypertension 10/05/2024 Telephone [facility] [address] [place] [address] [phone] Marcos Mckeon MD 10/05/2024 Population Health Risk Score [facility] Department [address] [place] [phone] Provider, Population Health Generic 10/05/2024 Travel 10/04/[address] [address] Zahraa Roca DO Nurse Triage 10/03/[address] [address] Zahraa Roca DO Appointment Request 10/02/2024 Patient Outreach [address] [address] Zahraa Roca DO Care Coordination (CHW outreach for SDOH PT-1 - LVM ) 10/02/[address] [address] Zahraa Roca DO PT-1 10/01/2024 Patient Outreach [address] [address] Zahraa Roca DO Care Coordination (CHW outreach for SDOH PT-1 and food needs-referral completed /) 10/01/[address] [address] Zahraa Roca DO PT-1 (/) 09/21/[address] [address] Zahraa Roca DO Recall Letter (Recall Letter sent 09/21/24.) 09/20/[address] [address] Mere Rios RN UTOX confirmation Neg BZO 09/19/2024 Orders Only GENERIC EXTERNAL DATA DEPARTMENT Provider, Generic External Data 09/17/2024 Patient Outreach [address] [address] Zahraa Roca DO Transition Of Care (Tcm) 09/12/2024 9:30 AM EST Clinical Support [address] [address] Mere Rios RN Anxiety (Primary Dx); Opioid dependence on agonist therapy (CMS/HCC) 09/12/2024 Telephone [facility] [address] [place] [address] Zahraa Roca DO Patient message 09/12/2024 Telephone [facility] [address] [place] [address] Mere Rios, HENRIK VAMP MARKER Initial completed today; UTOX Neg BZO. sent out 09/12/2024 Refill [facility] [address] [place] [address] Mere Rios RN Anxiety 09/12/2024 Travel 08/29/2024 Telephone [facility] [address] [place] [phone] Mere Rios, HENRIK NCNS VAMP MARKER Initial X1 08/29/2024 Telephone [facility] [address] [place] [phone] Mere Rios RN Recommend VAMP MARKER Tier 1 08/20/2024 Refill [facility] [address] [place] [address] Zahraa Roca DO Anxiety 08/09/2024 Telephone [facility] [address] [place] [address] Zahraa Roca DO Appt question 08/08/2024 Telephone [facility] [address] [place] [address] Zahraa Roca DO 08/03/2024 Telephone [facility] [address] [place] [phone] Zahraa Roca DO Appointment Request from Last [...] Description 11/13/2024 1:00 PM EDT Clinical Support [facility] [address] [place] [address] 11/23/2024 1:30 PM EDT Office Visit [facility] [address] [place] [address] Cristian Finley DDS [address] [place] [address] 12/26/2024 9:00 AM EDT Office Visit [facility] [address] [place] [address] Elis Arce Health Maintenance Due Date Last [...] Associated Diagnosis Comments GROSS AND MICROSCOPIC LEVEL 4 Routine 10/19/2024 11:50 AM EDT DRUG MONITOR, PANEL 1, SCREEN, URINE Routine 10/19/2024 9:30 AM EDT XR THORACIC SPINE 2 VIEWS Routine 10/16/2024 [...] AM EST Opioid dependence on agonist therapy ([facility]) DRUG MONITORING, BENZODIAZEPINES, QUANTITATIVE, URINE Routine 09/12/2024 9:30 AM EST Anxiety XR ELBOW 1-2 VIEWS RIGHT Routine 08/15/2024 10:35 PM EST VASC US LOWER EXTREMITY VENOUS INSUFFICIENCY BILATERAL Routine 08/15/2024 8:40 AM EST INTRAORAL - COMPLETE SERIES OF RADIOGRAPHIC [...] Maintenance Results * Gross and Microscopic Level 4 (10/19/2024 11:50 AM EDT) 10/19/2024 11:5 0 AM EDT 10/19/2024 1:05 PM EDT [facility] - 10/22/2024 2:46 PM EDT ----- ------- Name: Cristobal Enriquez ? Age/Sex: 54/M ? : 1970 Unit#: [id number] ?? Attend Dr: Sergei Christine MD ?Re10/19/24 ?Status: DEP SDC ? Location: HO.SSS ?Disch: ? ----- ------- SPEC : [id number] ? RECD: 10/19/24-1304 ? STATUS: ??SOUT ? REQ NUM: [id number] ? NGA: 10/19/24-1150 ? SUBM DR: Sergei Christine MD ? ENTERED: ??10/19/24-1321 ?SP TYPE: Surgical ? OTHR DR: Zahraa Roca DO ? ORDERED: ??Gross Micro L4 ? Diagnosis ?? Skin, right groin, re-excision: ??Skin and subcutaneous tissue with dermal scar and ?? previous biopsy site changes; no residual in situ carcinoma seen. ?Clinical History SCC right groin ?Microscopic Description Microscopic sections reviewed. ? Material Received ?? Re-excision SCC right groin short superior long lateral ? Gross Description Received in formalin labeled ?re-excision SCC right groin? is an ellipse of skin measuring 5.5 x 2.1 cm in greatest dimension which has been excised to a depth of 0.6 cm. ??The skin surface is sánchez-white and smooth. ??A healed linear incision measuring 2.6 cm in length runs the midline of the specimen from pole to pole. ??A short black suture is noted on 1 margin of the specimen and indicates the superior margin as stated on the specimen requisition. ??A long black suture is noted at 1 pole of the specimen and is stated on the requisition to indicate the lateral aspect. ??The margins are inked as follows. ??The superolateral quadrant is inked yellow. ??The superomedial quadrant is inked red. ??The infero lateral quadrant is inked orange. ??The inferomedial quadrant is inked blue. ??The longitudinal poles are submitted for microscopic examination in cassette A1, 2 pieces. ??The remainder of the specimen is serially sectioned across the short axis beginning at the lateral margin and entirely submitted in cassettes A2 through A8, 2 pieces each. ??([facility]) Copies To: ?? Zahraa Roca DO ?? [facility] ?? [address] ?? [place] [address] ?? [phone] ?? Sergei Christine MD ?? [facility] ?? [address] ?? [place] [address] ?? [phone] ? CONTINUED ON NEXT PAGE ----- ------- Name: Cristobal Enriquez ? Age/Sex: 54/M ? : 1970 Unit#: [id number] ?? Attend Dr: Sergei Christine MD ?Re10/19/24 ?Status: DEP SDC ? Location: HO.SSS ?Disch: ? ----- ------- SPEC : [id number] ? RECD: 10/19/24-3674 ? STATUS: ??SOUT ? REQ NUM: [id number] ? NGA: 10/19/24-1150 ? SUBM DR: Sergei Christine MD ? ENTERED: ??10/19/24-1321 ?SP TYPE: Surgical ? OTHR DR: Zahraa Roca DO ? ORDERED: ??Gross Micro L4 ? Copies To: ??(Continued) ?? [email or web address] ----- ------- Signed (signature on file) Mai Astudillo MD 10/22/24 5630 ? ----- ------- ? END OF REPORT ? us Generic External Data Provider LAB CYTOLOGY BRIAN SANCHEZ Final Result [facility] [address] [place] [address] [phone] * (ABNORMAL) Drug Monitoring, Panel 1, Screen, Urine (10/19/2024 9:30 AM EDT) Opiate Screen Urine Not Detected Not Detect [facility] Comment:Opiate cut-off is 30 0 ng/mL.Positive results are unconfirmed and should not be used fornon-medical purposes. Barbiturates, Urine Not Detected Not Detect [facility] Comment:Barbiturate cut-off is 200 ng/mL.Positive results are unconfirmed and should not be used fornon-medical purposes. Phencyclidine Screen Urine Not Detected Not Detect [facility] Comment:Phencyclidine cut-of f is 25 ng/mL.Positive results are unconfirmed and should not be used fornon-medical purposes. Amphetamine Screen Urine Not Detected Not Detect [facility] Comment:Amphetamine cut-off is 1000 ng/mL.Positive results are unconfirmed and should not be used fornon-medical purposes. Benzodiazepines Screen Urine Not Detected Not Detect [facility] Comment:Benzodiazepine cut-o ff is 200 ng/mL.Positive results are unconfirmed and should not be used fornon-medical purposes. Cocaine Screen Urine POSITIVE(A) Not Detect [facility] Comment:Cocaine cut-off is 3 00 ng/mL.Positive results are unconfirmed and should not be used fornon-medical purposes. Cannabinoid Screen Urine POSITIVE(A) Not Detect [facility] Comment:Cannabinoid cut-off is 50 ng/mL.Positive results are unconfirmed and should not be used fornon-medical purposes. Methadone Screen, Urine Positive(A) Not Detect ng/mL [facility] Comment:Methadone cut-off is 300 ng/mL.Positive results are unconfirmed and should not be used fornon-medical purposes. FENTANYL URINE Not Detected Not Detect [facility] Comment:Fentanyl cut-off is 1 ng/mL.Positive results are unconfirmed and should not be used fornon-medical purposes. Oxycodone Urine Screen Not Detected Not Detect ng/mL [facility] Comment:Oxycodone cut-off is 100 ng/mL.Positive results are unconfirmed and should not be used fornon-medical purposes. Buprenorphine Screen Not Detected Not Detect ng/mL [facility] Comment:Buprenorphine cut-of f is 5 ng/mL.Positive results are unconfirmed and should not be used fornon-medical purposes. 10/19/2024 9:30 AM EDT 10/19/2024 9:48 AM EDT us Generic External Data Provider LAB URINE ORDERAB LES Final Result Performing Organization Address City/State/[facility] Co de Phone Number [facility] [address] [place] [address] [phone] * XR Thoracic Spine 2 Views (10/16/2024 1:36 PM EDT) Anatomical Region Laterality Modality Spine, T-spine Radiographic Nara ging 10/16/2024 1:36 PM EDT Narrative 10/16/2024 2:21 PM EDT ?[facility] ?[address] ?[place] [address] ?XRay Report ? Signed ? Patient: KyararemediostyCristobal Monae ?MR#: [id number] ?? 54 ? : 1970 ?Acct:[id number] ? Age/Sex: 54 / M ?ADM Date: 10/16/ ? Loc: HO.HHCX ? Attending Dr: Zahraa Roca DO ? Ordering Physician: Zahraa Roca DO ?? Date of Service: 10/16/24 ?? Procedure(s): XR thoracic spine 2V ?? Accession Number(s): [id number] ? cc: Zahraa Roca DO ? EXAMINATION: [...] DD/ 1336 ? TD/TT: 10/16/24 1400 ? Data Analytics Analyst: ? Procedure Note Aziza, Image - 10/16/2024 [place] [address] XRay Report Signed Patient: Cristobal Enriquez JMR#: [id number] 54 : 1970Acct:[id number] Age/Sex: 54 / MADM Date: 10/16/24 Loc: HO.HHCX Attending Dr: Zahraa Roca DO Ordering Physician: Zarhaa Roca DO Date of Service: 10/16/24 Procedure(s): XR thoracic spine 2V Accession Number(s): [id number] cc: Zahraa Roca DO EXAMINATION: XR THORACIC [...] 10/16/24 1419 DD/ 1336 TD/TT: 10/16/24 1400 Data Analytics Analyst: us Zahraa Abelino DO IMG XR PROCEDURES Edited Res ult - Final * (ABNORMAL) CBC (10/15/2024 12:57 PM EDT) White Blood Count 7.6 4.8 - 10.8 X10*3/uL [facility] Red Blood Count 3.80(L) 4.60 - 5.80 X10*6/uL [facility] Hemoglobin 11.3(L) 14.0 - 18.0 g/dl [facility] Hematocrit 35.3(L) 42.0 - 52.0 % [facility] Mean Corpuscular Volume 92.9 80.0 - 98.0 fL [facility] Mean Corpuscular Hemoglobin 29.7 27.0 - 33.0 pg [facility] Mean Corpuscular HGB Conc 32.0 31.0 - 36.0 g/dl [facility] Red Cell Distribution Width 12.1 11.0 - 16.0 % [facility] Platelet Count 184 160 - 400 X10*3/uL [facility] Mean Platelet Volume 11.2 9.4 - 12.4 fL [facility] NRBC Pct Auto 0.0 0.0 - 0.2 /100WBC [facility] NRBC Abs Auto 0.000 0.0 - 0.012 X10*3/uL [facility] 10/15/2024 12:5 7 PM EDT 10/15/2024 12:57 PM EDT us Generic External Data Provider LAB BLOOD ORDERAB LES Final Result [facility] [address] [place] [address] [phone] * (ABNORMAL) Basic Metabolic Panel (10/15/2024 12:57 PM EDT) Sodium 139 135 - 145 mmol/L [facility] Potassium 4.0 3.3 - 5.1 mmol/L [facility] Chloride 104 96 - 108 mmol/L [facility] Carbon Dioxide 30(H) 22 - 29 mmol/L [facility] Anion Gap 9(L) 12 - 20 [facility] Urea Nitrogen (BUN) 13 9 - 16 mg/dL [facility] Creatinine, Serum 0.79 0.5 - 1.4 mg/dL [facility] Creatinine Clr Calc Pharmacy 107.8 [facility] Comment:eGFR (calculated fro m the MDRD study equation) and eCrCl(calculated from the Cockcroft-Gault equation) are based ondifferent parameters and may not yield comparable results.If eCrCl result is absurd, please check patient'sheight/weight. Estimated Glomerular Filt Rate >60 [facility] Comment:Chronic Kidney Disea se: Estimated GFR < 60 mL/min/1.64n0Fhdxpd Kidney Disease: Estimated GFR < 15 mL/min/1.73m2 Glucose 102 60 - 115 mg/dL [facility] Calcium 8.7 8.4 - 10.2 mg/dL [facility] 10/15/2024 12:5 7 PM EDT 10/15/2024 12:57 PM EDT us Generic External Data Provider LAB BLOOD ORDERAB LES Final Result [facility] [address] [place] [phone] * (ABNORMAL) POCT MARIO-14 Urine Drug Screen (10/11/2024 11:01 AM EDT) Only the most recent of2 resultswithin the time period is included. THC Positive Benzodiazepines Screen, Urine Negative Methadone Screen, Urine Positive Oxycodone Screen, Urine Positive Urine Urine specimen obtained by clean catch procedure / Unknown 10/11/2024 11:01 AM EDT Narrative Mere Rios, RN - 10/11/2024 11:01 AM EDT UTOX cup Lot#[id number] Exp. 03/13/26 Internal Pass Control Zahraa Roca DO POINT OF CARE TEST ENTER/JOANNA T ORDERABLES Final Result * Drug Monitoring, Benzodiazepines, Quantitative, Urine (10/11/2024 10:30 AM EDT) Only the most recent of2 resultswithin the time period is included. Nordiazepam, GCMS Urine NEGATIVE [facility] Oxazepam, GCMS Urine NEGATIVE [facility] Lorazepam GCMS Urine NEGATIVE [facility] Alprazolam, GCMS Urine NEGATIVE [facility] Alphahydroxytriazolam , GCMS Ur NEGATIVE [facility] Temazepam, GCMS Urine NEGATIVE [facility] Alphahydroxymidazolam ,GCMS Ur NEGATIVE [facility] Aminoclonazepam, GCMS Urine 66 [facility] Comment:REFERENCE RANGE: <25 ng/mL Flurazepam Metabolite,GCMS Ur NEGATIVE [facility] Benzodiazepines Comments SEE NOTE [facility] Comment:This drug testing is for medical treatment only. Analysiswas performed as non-forensic testing and these resultsshould be used only by healthcare providers to renderdiagnosis or treatment, or to monitor progress of medicalconditions.Benzodiazepines Notes:Aminoclonazepam detected is consistent with the use of thedrug Clonazepam.LDT Notes:Confirmation tests were developed and their analyticalperformance characteristics have been determined by [employer]. It has not been cleared or approved by the FDA.This assay has been validated pursuant to the CLIAregulations and is used for clinical purposes.Healthcare Providers needing Interpretation assistance,please contact us at [phone] ( ) M-F,8am to 10pm ESTTHIS TEST PERFORMED AT:[facility] [address] [phone] DIRECTOR: SOCRATES MATHIAS MD 10/11/2024 10:3 0 AM EDT 10/11/2024 7:21 PM EDT Zahraa Jurjesus DO LAB URINE ORDERABLES Final R esult Performing Organization Address [facility] de Phone Number [facility] [address] [place] [address] [phone] * (ABNORMAL) Oxycodone Screen, Urine (10/11/2024 10:30 AM EDT) Oxycodone Urine Screen Positive( A) Not Detect ng/mL [facility] Comment:Oxycodone cut-off is 100 ng/mL.Positive results are unconfirmed and should not be used fornon-medical purposes. Urine 10/11/2024 10:3 0 AM EDT 10/11/2024 7:25 PM EDT Zahraa Roca DO LAB URINE ORDERABLES Final R esult Performing Organization Address [facility] de Phone Number [facility] [address] [place] [address] [phone] * XR Pelvis 1-2 Views (10/05/2024 9:43 AM EDT) Anatomical Region Laterality Modality Body, Pelvis Radiographic Nara ging 10/05/2024 9:43 AM EDT Narrative 10/05/2024 12:22 PM EDT ?[facility] ?[address] ?[place] [address] ?XRay Report ? Signed ? Patient: Cristobal Enriquez ?MR#: [id number] ?? 54 ? : 1970 ?Acct:[id number] ? Age/Sex: 54 / M ?ADM Date: 03/14/25 ? Loc: HO.HHCX ? Attending Dr: Marcos Mckeon MD ? Ordering Physician: MARCOS MCKEON MD ?? Date of Service: 10/05/24 ?? Procedure(s): XR pelvis 1-2V ?? Accession Number(s): [id number] ? cc: MARCOS MCKEON MD ? EXAMINATION: [...] DD/ 0943 ? TD/TT: 10/05/24 1000 ? Data Analytics Analyst: ? Procedure Note Aziza, Image - 10/05/[address] [address] XRay Report Signed Patient: Cristobal Enriquez JMR#: [id number] 54 : 1970Acct:[id number] Age/Sex: 54 / MADM Date: 10/05/24 Loc: HO.HHCX Attending Dr: Marcos Mckeon MD Ordering Physician: MARCOS MCKEON MD Date of Service: 10/05/24 Procedure(s): XR pelvis 1-2V Accession Number(s): [id number] cc: MARCOS MCKEON MD EXAMINATION: XR PELVIS [...] Wilfredo Han MD 10/05/2024 12:19 PM EDT Dictated By: Wilfredo Han MD Signed By: <Electronically signed by Wilfredo Han MD in OV> 10/05/24 1219 DD/ 0943 TD/TT: 10/05/24 1000 Data Analytics Analyst: us Marcos Mckeon MD IMG XR PROCEDURES Final Result * XR Lumbar Spine 2-3 Views (10/05/2024 9:43 AM EDT) Anatomical Region Laterality Modality Spine, L-spine Radiographic Nara ging 10/05/2024 9:43 AM EDT Narrative 10/05/2024 12:20 PM EDT ?[facility] ?[address] ?[place] [address] ?XRay Report ? Signed ? Patient: Cristobal Enriquez ?MR#: [id number] ?? 54 ? : 1970 ?Acct:[id number] ? Age/Sex: 54 / M ?ADM Date: 10/05/24 ? Loc: HO.HHCX ? Attending Dr: Marcos Mckeon MD ? Ordering Physician: MARCOS MCKEON MD ?? Date of Service: 10/05/24 ?? Procedure(s): XR lumbar spine 2-3V ?? Accession Number(s): [id number] ? cc: MARCOS MKCEON MD ? EXAMINATION: ?? XR LUMBOSACRAL SPINE [...] of L2-3 disc space with a central redz-xc-igsa appearance. ?? Moderate loss at L1-2 and [...] ??10/05/2024 12:17 PM EDT RP ?? Workstation: [id number] ? Dictated By: ?Joao Pickett MD ? Signed By: ?<Electronically signed by Joao Pickett MD in OV> ?10/05/24 1217 ? DD/ 0943 ? TD/TT: 10/05/24 1000 ? Data Analytics Analyst: ? Procedure Note Aziza, Image - 10/05/2024 [place] [address] XRay Report Signed Patient: Cristobal Enriquez JMR#: [id number] 54 : 1970Acct:[id number] Age/Sex: 54 / MADM Date: 10/05/24 Loc: HO.HHCX Attending Dr: Marcos Mckeon MD Ordering Physician: MARCOS MCKEON MD Date of Service: 10/05/24 Procedure(s): XR lumbar spine 2-3V Accession Number(s): [id number] cc: MARCOS MCKEON MD EXAMINATION: XR LUMBOSACRAL [...] of L2-3 disc space with a central dmga-ux-effz appearance. Moderate loss at L1-2 and L3-4 [...] 10/05/24 1217 DD/ 0943 TD/TT: 10/05/24 1000 Data Analytics Analyst: Marcos Mckeon MD IMG XR PROCEDURES Final Result * Gross and Microscopic Level 3 (09/19/2024 9:00 AM EST) 09/19/2024 9:00 AM EST 09/19/2024 12:05 PM EST Narrative [facility] - 09/20/2024 3:24 PM EST ----- ------- Name: Cristobal Enriquez ? Age/Sex: 54/M ? : 1970 Unit#: [id number] ?? Attend Dr: Sergei Christine MD ?Re09/19/24 ?Status: DEP REF ? Location: HO.LNP ?Disch: ? ----- ------- SPEC : [id number] ? RECD: 09/19/24 ? STATUS: ??SOUT ? REQ NUM: [id number] ? NGA: 09/19/24 ? SUBM DR: Sergei [...] ? Age/Sex: 54/M ? : 1970 Unit#: [id number] ?? Attend Dr: Sergei Christine MD ?Re09/19/24 ?Status: DEP REF ? Location: HO.LNP ?Disch: ? ----- ------- SPEC : [id number] ? RECD: 09/19/24 ? STATUS: ??SOUT ? REQ NUM: [id number] ? NGA: 09/19/24 ? SUBM DR: Sergei Christine MD ? ENTERED: ??09/19/24 ?SP TYPE: Surgical ? OTHR DR: Zahraa Roca DO ? ORDERED: ??Gross Micro L3/2 ? Gross Description ?(Continued) CEDS This case was reviewed intradepartmentally. ??Results given to Dr. Christine by secure text by Dr. Naik on 09/20/24 at 3:22 pm. Copies To: ?? Zahraa Roca DO ?? [facility] ?? [address] ?? [place] [address] ?? [phone] ?? Sergei Christine MD ?? [facility] ?? [address] ?? [place] [address] ?? [phone] ?? [email or web address] ----- ------- Signed (signature on file) Lore Naik 09/20/24 1524 ? ----- ------- ? END OF REPORT ? us Generic External Data Provider LAB CYTOLOGY BRIAN SANCHEZ Final Result [facility] [address] [place] [address] [phone] * XR Elbow 1-2 Views Right (08/15/2024 10:35 PM EST) Anatomical Region Laterality Modality Upper Extremities, Elbow Right Radiogr aphic Imaging 08/15/2024 10:3 5 PM EST Narrative 08/15/2024 10:37 PM EST ? [facility] ?[address] ?[place] [address] ?XRay Report ? Signed ? Patient: Cristobal Enriquez ?MR#: [id number] ?? 54 ? : 1970 ?Acct:[id number] ? Age/Sex: 54 / M ?ADM Date: 08/15/24 ? Loc: HO.US ? Attending Dr: Zamzam Richmond PA-C ? Ordering Physician: Sergei Christine MD ?? Date of Service: 08/15/24 ?? Procedure(s): XR elbow RT 2V ?? Accession Number(s): [id number] ? cc: Zahraa Roca DO; Sergei Christine [...] ? DD/ 34 ? TD/TT: 08/15/242234 ? Data Analytics Analyst: ? Procedure Note Aziza, Image - 08/15/2024 [facility] [address] [address] XRay Report Signed Patient: Cristobal Enriquez JMR#: [id number] 54 : 1970Acct:[id number] Age/Sex: 54 / MADM Date: 08/15/24 Loc: HO.US Attending Dr: Zamzam Richmond PA-C Ordering Physician: Sergei Christine MD Date of Service: 08/15/24 Procedure(s): XR elbow RT 2V Accession Number(s): [id number] cc: Zahraa Roca DO; Sergei Christine MD [...] in OV> 08/15/242235 DD/ 34 TD/TT: 08/15/242234 Data Analytics Analyst: [facility] External Provider IMG XR PROCEDURES Edited Result - Final * VASC Lower Extremity Venous Insufficiency Bilateral (08/15/2024 8:40 AM EST) 08/15/2024 8:40 AM EST Narrative [facility] - 08/20/2024 7:43 AM EST ? [facility] ?[address] ?[place] [address] ? Ultrasound Report ? Signed ? Patient: Cristobal Enriquez J ?MR#: [id number] ?? 54 ? : 1970 ?Acct:[id number] ? Age/Sex: 54 / M ?ADM Date: /22/25 ? Loc: HO.US ? Attending Dr: Zamzam Richmond PA-C ? Ordering Physician: Zamzam Richmond PA-C ?? Date of Service: 08/15/24 ?? Procedure(s): US venous insuf bilat ?? Accession Number(s): [id number] ? cc: Zahraa Roca DO; Zamzam Richmond [...] DD/ 0840 ? TD/TT: 08/15/24 0930 ? Data Analytics Analyst: ? Procedure Note Donlaytonter, Image - 08/20/2024 [place] [address] Ultrasound Report Signed Patient: Cristobal Enriquez JMR#: [id number] 54 : 1970Acct:[id number] Age/Sex: 54 / MADM Date: 08/15/24 Loc: HO.US Attending Dr: Zamzam Richmond PA-C Ordering Physician: Zamzam Richmond PA-C Date of Service: 08/15/24 Procedure(s): US venous insuf bilat Accession Number(s): [id number] cc: Zahraa Roca DO; Zamzam Richmond PA-C [...] by: Boris Sears MD 08/20/2024 07:40 AM [facility] Dictated By: Boris Lovett MD Signed By: <Electronically signed by Boris Bates MDin OV> 08/20/24 0740 DD/ 0840 TD/TT: 08/15/24 0930 Data Analytics Analyst: us [facility] External Provider CV VASC ULAR PROCEDURES Edited Result - Final [facility] [address] [place] [address] * HIV-1/2 Antigen and Antibodies, Fourth Generation, with Reflexes (10/24/2023 10:26 AM EDT) HIV AB/AG Nonreactive Nonreactive [facility] Comment:HIV-1 p24 Ag and/or HIV-1/HIV-2 Ab not detected.A test result that is nonreactive does not exclude thepossibility of exposure to or infection with HIV-1 and/orHIV-2. Nonreactive results in this assay for individualswith prior exposure to HIV-1 and/or HIV-2 may be due toantigen and antibody levels that are below the limit ofdetection of this assay.The [employer] HIV Ag/Ab Combo assay result andsupplemental assay results should be interpreted inconjunction with the patient's clinical presentation,history and other laboratory results. If the results areinconsistent with clinical evidence, additional testing issuggested to confirm the result. Blood Venous blood specimen / Unknown 10/24/2023 10:26 AM EDT 10/24/2023 11:09 AM EDT us Zahraa Roca DO LAB BLOOD ORDERABLES Final R esult [facility] [address] [place], [place] [phone] * (ABNORMAL) Lipid Panel, Standard (10/24/2023 10:26 AM EDT) Triglycerides 48 <150 mg/dL [facility] Comment:Desirable Triglyceri de: less than 150 mg/dLBorderline High Triglyceride 150-199 mg/dLHigh Triglyceride: 200-499 mg/dLVery High Triglyceride: greater than or equal to 5OO mg/dL Cholesterol 174 <200 mg/dL [facility] Comment:Desirable Cholestero l: less than 200 mg/dLBorderline High Cholesterol: 200-239 mg/dLHigh Cholesterol: greater than 239 mg/dL LDL Cholesterol Calculated 113(H) <100 mg/dL [facility] Comment:Desirable LDL: less than 100 mg/dLNear Optimal/Above Optimal LDL: 110- 129 mg/dLBorderline High LDL: 130-159 mg/dLHigh LDL: 160-189 mg/dLVery High LDL: greater than or equal to 190 mg/dL HDL Cholesterol 52 >40 mg/dL [facility] Comment:Desirable HDL: great er than 40 mg/dL Note: This HDL assay may give artificially low results in patients with liver disease. Blood Venous blood specimen / Unknown 10/24/2023 10:26 AM EDT 10/24/2023 1:07 PM EDT Zahraa Roca DO LAB BLOOD ORDERABLES Final R esult [facility] [address] [place] [address] [phone] * Colonoscopy (03/16/2023 9:43 AM EDT) Historical Provider HEALTH MAINTENANCE Final Result * Fecal Globin by Immunochemistry (07/13/2022 12:00 AM EST) Fecal Globin By Immunochemistry SEE NOTE [employer] Comment: ??FECAL GLOBIN BY IMMUNOCHEMISTRY ?Micro Number: ?[id number] ??Test Status: ? Final ??Specimen Source: ?? Insure (tm) fobt test card ??Specimen Quality: ??Adequate ??Fecal Globin: ?Not Detected 07/13/2022 07/28/2022 8:2 7 AM EST Zahraa Roca DO LAB BODY FLUIDS AND STOOLS O RDERABLES Final Result Performing Organization Address [facility] Co de Phone Number [facility] [address], [place] [address] [employer] [place] [employer] [address] [facility], (N[address]) [place] [address] from Last 3 Months or Most Recently Relevant to Health Maintenance Insurance [facility] STANDARD MEDICARE DENTAL-[facility] MEDICAID [facility] ADULT Care Teams Curtain Fitter Relationship Specialty Start Date End Date Zahraa Roca DO [address] [place] [address] PCP - General Family Medicine 07/25/18 Christian Soria FNP [address] [place] [address] Nurse Practitioner Family Medicine 06/24/23
--- OUTSIDE RECORDS SUMMARY | 2024-10-29 14:17 | XMS_ITS | Encounter Summary ---
Author Organization [employer] Address [address] [facility] 7t [place] [address] Care Team Providers Care Vice President For Instruction Name Role Phone Zahraa Roca DO Primary Care Provider + [phone] Christian Soria Unavailable Unavailable Reason for Visit * Reason Onset Date Comments PT-1 10/01/2024 Encounter Details Date Type Department Care Team ([facility] st Contact Info) Description 10/01/2024 Telephone [facility] [address] [place], [place] [phone] Zahraa Roca DO [address] [place], [place] [phone] PT-1 (/) Social History Tobacco Use Types [...] EDT Tc from pt requesting for the Footwear Sales Coordinator locations for all his Pt 1 to be changed to [address] [place] [address]. If any questions contact pt at [phone] documented in this encounter Plan of Treatment Upcoming Encounters Date Type Department Care Team (Late st Contact Info) Description 11/13/2024 1:00 PM EDT Clinical Support [facility] [address] [place] [address] 11/23/2024 1:30 PM EDT Office Visit [facility] ADULT DENTAL [address] [place] [address] Cristian Finley DDS [address] [place] [address] 12/26/2024 9:00 AM EDT Office Visit [facility] ADULT DENTAL [address] [place] [address] Elis Arce documented as of this encounter Visit Diagnoses Not on filedocumented in this encounter Additional Health Concerns Assessment Noted Time PHQ-9 Depression Total Score: 0 11/28/19 24 11:23 AM EDT documented as of this encounter Care Teams Vice President For Instruction Relationship Specialty Start Date End Date Zahraa Roca DO [address] [place] [address] PCP - General Family Medicine 07/25/18 Christian Soria FNP [address] [place] [address] Nurse Practitioner Family Medicine 06/24/23 documented as of this encounter
--- OUTSIDE RECORDS SUMMARY | 2024-10-29 14:17 | XMS_ITS | Encounter Summary ---
Author Organization [employer] Address [address] [facility] 7t [place] [address] Care Team Providers Care Senior Game Designer Name Role Phone Zahraa Roca DO Primary Care Provider + [phone] Christian Soria Unavailable Unavailable Reason for Visit * Reason Onset Date Comments PT-1 07/13/2024 Encounter Details Date Type Department Care Team ([facility] st Contact Info) Description 07/13/2024 Telephone [facility] [address] [place], [place] [phone] Zahraa Roca DO [address] [place], [place] [phone] PT-1 Social History Tobacco Use Types Packs/Day [...] Yes Provider name or facility name: [facility] Escort needed: Y/N: No Do you have a wheelchair: Y/N: No If yes- Manual or electric: Visits: (3x Monthly) documented in this encounter Plan of Treatment Upcoming Encounters Date Type Department Care Team (Late st Contact Info) Description 11/13/2024 1:00 PM EDT Clinical Support [facility] [address] [place] [address] 11/23/2024 1:30 PM EDT Office Visit [facility] ADULT DENTAL [address] [place] [address] Cristian Finley DDS [address] [place] [address] 12/26/2024 9:00 AM EDT Office Visit [facility] ADULT D[facility] [address] [place] [address] Elis Arce documented as of this encounter Visit Diagnoses Not on filedocumented in this encounter Additional Health Concerns Assessment Noted Time PHQ-9 Depression Total Score: 0 11/28/19 24 11:23 AM EDT documented as of this encounter Care Teams Senior Game Designer Relationship Specialty Start Date End Date Zahraa Roca DO [address] [place] [address] PCP - General Family Medicine 07/25/18 Christian Soria FNP [address] [place] [address] Nurse Practitioner Family Medicine 06/24/23 documented as of this encounter
--- OUTSIDE RECORDS SUMMARY | 2024-10-29 14:18 | XMS_ITS | Encounter Summary ---
Author Organization [employer] Address [address] [facility] 7t [place] [address] Care Team Providers Care Tool Designer Name Role Phone Zahraa Roca DO Primary Care Provider + [phone] Christian Soria Unavailable Unavailable Reason for Visit * Reason Onset Date Comments Med Refill 10/29/2024 Encounter Details Date Type Department Care Team ([facility] st Contact Info) Description 10/29/2024 Telephone [facility] MEDICINE [address] [place], [place] [phone] Zahraa Roca DO [address] [place], [place] [phone] Med Refill Social History Tobacco Use Types [...] * Telephone Encounter - Gabbi Arreola - 10/29/2024 1:19 PM EDT TC from pt requesting medication refill. Medications needing refill : clonazePAM (KlonoPIN) 1 MG tablet To be sent to: [facility] PT states he's taking 2 tablets by mouth once per day, states it was change on the 24 after office visit. last office visit 10/16 HDF with pcp. documented in this encounter Plan of Treatment Upcoming Encounters Date Type Department Care Team (Late st Contact Info) Description 11/13/2024 1:00 PM EDT Clinical Support [facility] [address] [place] [address] 11/23/2024 1:30 PM EDT Office Visit [facility] ADULT DENTAL [address] [place] [address] Cristian Finley DDS [address] [place] [address] 12/26/2024 9:00 AM EDT Office Visit [facility] ADULT DENTAL [address] [place], [place] [phone] Elis Arce documented as of this encounter Visit Diagnoses Not on filedocumented in this encounter Additional Health Concerns Assessment Noted Time PHQ-9 Depression Total Score: 16 025 3:09 PM EDT documented as of this encounter Care Teams Tool Designer Relationship Specialty Start Date End Date Zahraa Roca DO [address] [place], [place] [phone] PCP - General Family Medicine 07/25/18 Christian Soria FNP [address] [place] [address] Nurse Practitioner Family Medicine 06/24/23 documented as of this encounter
--- OUTSIDE RECORDS SUMMARY | 2024-10-29 14:18 | XMS_ITS | Encounter Summary ---
Author Organization [email or web address] Address [address] [facility] 7t [place] [address] Care Team Providers Care Wallpaper Remover Steam Name Role Phone Zahraa Roca DO Primary Care Provider + [phone] Christian Soria Unavailable Unavailable Encounter Details Date Type Department Care Team (Late st Contact Info) Description 10/21/2022 Orders Only [facility] [address] [place] [address] Zahraa Andino LPN Social History Tobacco Use [...] [facility] [address] [place] [address] 11/23/2024 1:30 PM EDT Office Visit [facility] ADULT DENTAL [address] [place] [address] Cristian Finley DDS [address] [place] [address] 12/26/2024 9:00 AM EDT Office Visit [facility] ADULT DENTAL [address] [place], [place] [phone] Elis Arce documented as of this encounter Visit Diagnoses Not on filedocumented in this encounter Additional Health Concerns Assessment Noted Time PHQ-9 Depression Total Score: 0 08/24/19 23 2:33 PM EST documented as of this encounter Care Teams Wallpaper Remover Steam Relationship Specialty Start Date End Date Zahraa Roca DO [address] [place], [place] [phone] PCP - General Family Medicine 07/25/18 Christian Soria FNP [address] [place] [address] Nurse Practitioner Family Medicine 06/24/23 documented as of this encounter
--- OUTSIDE RECORDS SUMMARY | 2024-10-29 14:18 | XMS_ITS | Encounter Summary ---
Author Organization [employer] Address [address] [place] [address] 7t [place] [address] Care Team Providers Care Drilling Engineering Manager Name Role Phone SuryaZahraa lee Primary Care Provider + [phone] Christian Soria Unavailable Unavailable Reason for Visit * Reason Comments Med Refill Encounter Details Date Type Department Care Team (Late st Contact Info) Description 12/19/2022 Refill [facility] MED[facility] [address] [place] [address] Christian Soria FNP Anxiety Social History Tobacco [...] Clinical Support [facility] [address] [place], [place] [phone] 11/23/2024 1:30 PM EDT Office Visit [facility] ADULT DENTAL [address] [place] [phone] Cristian Finley DDS [address] [place] [address] 12/26/2024 9:00 AM EDT Office Visit [facility] ADULT DENTAL [address] [place] [address] Elis Arce documented as of this encounter Visit Diagnoses Diagnosis Anxiety Anxiety state, unspecified documented in this encounter Additional Health Concerns Assessment Noted Time PHQ-9 Depression Total Score: 0 08/24/19 23 2:33 PM EST documented as of this encounter Care Teams Drilling Engineering Manager Relationship Specialty Start Date End Date Zahraa Roca DO [address] [place] [address] PCP - General Family Medicine 07/25/18 Christian Soria FNP [address] [place] [address] Nurse Practitioner Family Medicine 06/24/23 documented as of this encounter
--- OUTSIDE RECORDS SUMMARY | 2024-10-29 14:18 | XMS_ITS | Encounter Summary ---
Author Organization [employer] Address [address] [facility] 7t [place] [address] Care Team Providers Care School Cafeteria Cook Name Role Phone Zahraa Roca DO Primary Care Provider + [phone] Christian Soria Unavailable Unavailable Reason for Visit * Reason Onset Date Comments PT1 10/24/2024 Encounter Details Date Type Department Care Team ([facility] st Contact Info) Description 10/24/2024 Telephone [facility] [address] [place], [place] [phone] Zahraa Roca DO [address] [place], [place] [phone] PT1 Social History Tobacco Use Types Packs/Day [...] * Telephone Encounter - Lisa Pressley - 10/24/2024 9:06 AM EDT 1.)Patient calling requesting PT1 Home Address verified: Y/N: Yes Provider name or facility name: Mayur harrington Facility Address: [address] [facility] Escort needed: Y/N: No Do you have a wheelchair: Y/N: No If yes- Manual or electric: no Visits:3x a month for 1 year 2.)Patient calling requesting PT1 Home Address verified: Y/N: Yes Provider name or facility name: Dr latonya Christine Facility Address: [address] [facility] [address] Escort needed: Y/N: No Visits: 3x a month for 1 year 3.) Patient calling requesting PT1 Home Address verified: Y/N: Yes Provider name or facility name: Everton Lawton MD Facility Address: [address] [facility], [place] [address] Escort needed: Y/N: No Visits: 3 x a month for 1 year 4.) Patient calling requesting PT1 Home Address verified: Y/N: Yes Provider name or facility name: PCP and dental appt Facility Address: [address] [facility] [place] [address] Escort needed: Y/N: No Visits: 4x a month for 1 year documented in this encounter Plan of Treatment Upcoming Encounters Date Type Department Care Team (Late st Contact Info) Description 11/13/2024 1:00 PM EDT Clinical Support [facility] MED[facility] [address] [place] [address] 11/23/2024 1:30 PM EDT Office Visit [facility] ADULT DENTAL [address] [place] [address] Cristian Finley DDS [address] [place] [address] 12/26/2024 9:00 AM EDT Office Visit [facility] ADULT DENTAL [address] [place] [address] Elis Arce documented as of this encounter Visit Diagnoses Not on filedocumented in this encounter Additional Health Concerns Assessment Noted Time PHQ-9 Depression Total Score: 16 10/16/2 025 3:09 PM EDT documented as of this encounter Care Teams School Cafeteria Cook Relationship Specialty Start Date End Date Zahraa Roca DO [address] [place] [address] PCP - General Family Medicine 07/25/18 Christian Soria FNP [address] [place] [address] Nurse Practitioner Family Medicine 06/24/23 documented as of this encounter
--- OUTSIDE RECORDS SUMMARY | 2024-10-29 14:18 | XMS_ITS | Encounter Summary ---
Author Organization [employer] Address [address] [facility] 7t [place] [address] Care Team Providers Care Behavioral Medical Director Name Role Phone Zahraa Roca DO Primary Care Provider + [phone] Christian Soria Unavailable Unavailable Reason for Visit * Reason Onset Date Comments Appt question 08/09/2024 Encounter Details Date Type Department Care Team ([facility] st Contact Info) Description 08/09/2024 Telephone [facility]INE [address] [place], [place] [phone] Zahraa Roca DO [address] [place], [place] [phone] Appt question Social History Tobacco Use Types [...] aug appt its for that. Any questions [phone] documented in this encounter Plan of Treatment Upcoming Encounters Date Type Department Care Team (Late st Contact Info) Description 11/13/2024 1:00 PM EDT Clinical Support [facility] [address] [place] [address] 11/23/2024 1:30 PM EDT Office Visit [facility] ADULT DENTAL [address] [place] [address] Cristian Finley DDS [address] [place] [address] 12/26/2024 9:00 AM EDT Office Visit [facility] ADULT DENTAL [address] [place] [address] Arce, Elis documented as of this encounter Visit Diagnoses Not on filedocumented in this encounter Additional Health Concerns Assessment Noted Time PHQ-9 Depression Total Score: 0 11/28/19 24 11:23 AM EDT documented as of this encounter Care Teams Behavioral Medical Director Relationship Specialty Start Date End Date Zahraa Roca DO [address] [place] [address] PCP - General Family Medicine 07/25/18 Christian Soria FNP [address] [place] [address] Nurse Practitioner Family Medicine 06/24/23 documented as of this encounter
--- OUTSIDE RECORDS SUMMARY | 2024-10-29 14:18 | XMS_ITS | Encounter Summary ---
Author Organization [employer] Address [address] [facility] 7t [place] [address] Care Team Providers Care Healthcare Interpreter Name Role Phone Zahraa Roca DO Primary Care Provider + [phone] Christian Soria Unavailable Unavailable Reason for Visit * Reason Onset Date Comments Appointment Request 08/03/2024 Encounter Details Date Type Department Care Team ([facility] Contact Info) Description 08/03/2024 Telephone [facility] [address] [place], [place] [phone] Zahraa Roca DO [address] [place], [place] [phone] Appointment Request Social History Tobacco Use Types [...] missed appointment with dermatology. Contact pt at [phone] documented in this encounter Plan of Treatment Upcoming Encounters Date Type Department Care Team (Late st Contact Info) Description 11/13/2024 1:00 PM EDT Clinical Support [facility] [address] [place] [address] 11/23/2024 1:30 PM EDT Office Visit [facility] ADULT DENTAL [address] [place] [address] Cristian Finley DDS [address] [place] [address] 12/26/2024 9:00 AM EDT Office Visit [facility] ADULT DENTAL [address] [place] [address] Elis Arce documented as of this encounter Visit Diagnoses Not on filedocumented in this encounter Additional Health Concerns Assessment Noted Time PHQ-9 Depression Total Score: 0 11/28/19 24 11:23 AM EDT documented as of this encounter Care Teams Healthcare Interpreter Relationship Specialty Start Date End Date Zahraa Roca DO [address] [place] [address] PCP - General Family Medicine 07/25/18 Christian Soria FNP [address] [place] [address] Nurse Practitioner Family Medicine 06/24/23 documented as of this encounter
--- OUTSIDE RECORDS SUMMARY | 2024-10-29 14:18 | XMS_ITS | Encounter Summary ---
Author Organization [employer] Address [address] [facility] [facility] [address] 7t [place] [address] Care Team Providers Care Gun Club Manager Name Role Phone Zahraa Roca DO Primary Care Provider + [phone] Christian Soria Unavailable Unavailable Encounter Details Date Type Department Care Team (Late st Contact Info) Description 10/10/2024 Orders Only [facility] MEDICINE 230 [place], [place] [phone] Zahraa Roca DO 230 [place] [address] Social History Tobacco Use Types Packs/Day Years [...] [facility] MED[facility]INE 230 [place] [address] 11/23/2024 1:30 PM EDT Office Visit [facility] ADULT DENTAL 230 [place] [address] Cristian Finley DDS 230 [place] [address] 12/26/2024 9:00 AM EDT Office Visit [facility] ADULT DENTAL 230 [place] [address] Elis Arce documented as of this encounter Visit Diagnoses Not on filedocumented in this encounter Additional Health Concerns Assessment Noted Time PHQ-9 Depression Total Score: 0 11/28/19 24 11:23 AM EDT documented as of this encounter Care Teams Gun Club Manager Relationship Specialty Start Date End Date Zahraa Roca DO [address] [place] [address] PCP - General Family Medicine 07/25/18 Christian Soria FNP [address] [place] [address] Nurse Practitioner Family Medicine 06/24/23 documented as of this encounter
--- OUTSIDE RECORDS SUMMARY | 2024-10-29 14:18 | XMS_ITS | Encounter Summary ---
Author Organization [employer] Address 75 [facility] 7t [place] [address] Care Team Providers Care Renewals Manager Name Role Phone Zahraa Roca DO Primary Care Provider +1 [phone] Christian Soria Unavailable Unavailable Encounter Details Date Type Department Care Team (Late st Contact Info) Description 08/31/2022 Abstract [facility] MEDICINE 230 [place] [address] Zahraa Roca DO 230 [place] [address] Social History Tobacco Use Types Packs/Day Years [...] 11/13/2024 1:00 PM EDT Clinical Support [facility] MEDICINE 230 [place], [place] [phone] 11/23/2024 1:30 PM EDT Office Visit [facility] ADULT DENTAL 230 [place] [address] Cristian Finley DDS [address] [place], [place] [phone] 12/26/2024 9:00 AM EDT Office Visit [facility] ADULT DENTAL 230 [place] [address] Elis Arce documented as of this encounter Visit Diagnoses Not on filedocumented in this encounter Additional Health Concerns Assessment Noted Time PHQ-9 Depression Total Score: 0 08/24/19 23 2:33 PM EST documented as of this encounter Care Teams Renewals Manager Relationship Specialty Start Date End Date Zahraa Roca DO 230 [place] [address] PCP - General Family Medicine 07/25/18 Christian Soria FNP 230 [place] [address] Nurse Practitioner Family Medicine 06/24/23 documented as of this encounter
--- OUTSIDE RECORDS SUMMARY | 2024-10-29 14:18 | XMS_ITS | Encounter Summary ---
Author Organization [employer] Address [address] [facility] 7t [place] [address] Care Team Providers Care Candy Cutter Hand Name Role Phone Zahraa Roca DO Primary Care Provider + [phone] Christian Soria Unavailable Unavailable Reason for Visit * Reason Onset Date Comments PT-1 10/02/2024 Encounter Details Date Type Department Care Team ([facility] st Contact Info) Description 10/02/2024 Telephone [facility] MEDICINE 230 [place], [place] [phone] Zahraa Roca DO 230 [place], [place] [phone] PT-1 Social History Tobacco Use Types Packs/Day [...] status of Pt 1 Contact pt at [phone] * Telephone Encounter - Go Vasquez - 10/02/2024 9:06 AM EDT Patient calling requesting PT1 Home Address verified: Y/N: Yes Provider name or facility name: [facility] Care Resource [address] [address] Escort needed: Y/N: No Do you have a wheelchair: Y/N: No If yes- Manual or electric: Visits: (7 Days x Weekly) documented in this encounter Plan of Treatment Upcoming Encounters Date Type Department Care Team ([facility] st Contact Info) Description 11/13/2024 1:00 PM EDT Clinical Support [facility] MEDICINE 230 [place] [address] 11/23/2024 1:30 PM EDT Office Visit [facility] ADULT DENTAL 230 [place] [address] Cristian Finley DDS 230 [place] [address] 12/26/2024 9:00 AM EDT Office Visit [facility] ADULT DENTAL 230 [place] [address] Elis Arce documented as of this encounter Visit Diagnoses Not on filedocumented in this encounter Additional Health Concerns Assessment Noted Time PHQ-9 Depression Total Score: 0 11/28/19 24 11:23 AM EDT documented as of this encounter Care Teams Candy Cutter Hand Relationship Specialty Start Date End Date Zahraa oRca DO [address] [place] [address] PCP - General Family Medicine 07/25/18 Christian Soria FNP [address] [place] [address] Nurse Practitioner Family Medicine 06/24/23 documented as of this encounter
--- OUTSIDE RECORDS SUMMARY | 2024-10-29 14:18 | XMS_ITS | Encounter Summary ---
Author Organization [employer] Address [address] [place] [address] 7t [place] [address] Care Team Providers Care Rubber Cutter Name Role Phone Zahraa Roca DO Primary Care Provider + [phone] Christian Soria Unavailable Unavailable Reason for Visit * Reason Onset Date Comments Med Refill 12/31/2022 Encounter Details Date Type Department Care Team (Late st Contact Info) Description 12/31/2022 Telephone [facility] MEDICINE 230 [place], [place] [phone] Zahraa Roca DO 230 [place], [place] [phone] Med Refill Social History Tobacco Use Types [...] EDT Clinical Support [facility] MEDICINE 230 [place] [address] 11/23/2024 1:30 PM EDT Office Visit [facility] ADULT DENTAL 230 [place] [address] Cristian Finley DDS 230 [place] [address] 12/26/2024 9:00 AM EDT Office Visit [facility] ADULT DENTAL 230 [place] [address] Elis Arce documented as of this encounter Visit Diagnoses Not on filedocumented in this encounter Additional Health Concerns Assessment Noted Time PHQ-9 Depression Total Score: 0 08/24/19 23 2:33 PM EST documented as of this encounter Care Teams Rubber Cutter Relationship Specialty Start Date End Date [place] [address] PCP - General Family Medicine 07/25/18 Christian Soria FNP [address] [place] [address] Nurse Practitioner Family Medicine 06/24/23 documented as of this encounter
--- OUTSIDE RECORDS SUMMARY | 2024-10-29 14:18 | XMS_ITS | Encounter Summary ---
Author Organization [employer] Address [address] [facility] 7t [place] [address] Care Team Providers Care Claims Adjustor Name Role Phone Zahraa Roca DO Primary Care Provider + [phone] Christian Soria Unavailable Unavailable Reason for Visit * Reason Comments Care Coordination CHW outreach for SDO H PT-1 and food needs-referral completed Encounter Details Date Type Department Care Team (Latest Contact Info) Description 10/24/2024 Patient Outreach [facility] MEDICINE 230 [place] [address] Zahraa Roca DO 230 [place], [place] [phone] Care Coordination (CHW outreach for SDOH PT-1 [...] encounter Progress Notes * Ayan Caro - 10/24/2024 9:57 AM EDT CHW Ayan Caro, placed outbound call to patient for assistance with SDOH as a referral was received by the provider. Patient's name and were confirmed. Patient screened positive for the following SDOH food insecurities. CHW referral patient to the local list of pantries in the area for help. PT-1 requested was send out in behalf of patient for futures appt. at the [facility] and few location at [facility]. Patient verbalizes understanding, and able to agree with plan to follow up. Patient educated on extended clinic hours on Mondays through Wednesdays, and Walk-In Urgent Care Located in [facility] of [facility]. Patient provided with after-hours line for [facility], , which offer night time triage service and option to transfer to gas station attendant provider if needed. documented in this encounter Plan of Treatment Upcoming Encounters Date Type Department Care Team (Late st Contact Info) Description 11/13/2024 1:00 PM EDT Clinical Support [facility] MEDICINE 230 [place] [address] 11/23/2024 1:30 PM EDT Office Visit [facility] ADULT DENTAL [address] [place] [address] Cristian Finley DDS [address] [place] [address] 12/26/2024 9:00 AM EDT Office Visit [facility] ADULT DENTAL [address] [place] [address] Elis Arce documented as of this encounter Visit Diagnoses Not on filedocumented in this encounter Additional Health Concerns Assessment Noted Time PHQ-9 Depression Total Score: 16 10/16/ 025 3:09 PM EDT documented as of this encounter Care Teams Claims Adjustor Relationship Specialty Start Date End Date Zahraa Roca DO [address] [place] [address] PCP - General Family Medicine 07/25/18 Christian Soria FNP [address] [place] [address] Nurse Practitioner Family Medicine 06/24/23 documented as of this encounter
--- OUTSIDE RECORDS SUMMARY | 2024-10-29 14:18 | XMS_ITS | Encounter Summary ---
Author Organization [employer] Address [address] 7t [place] [address] Care Team Providers Care Jute Bag Cutting Machine Operator Name Role Phone YudiZahraa barahona Primary Care Provider + [phone] Christian Soria Unavailable Unavailable Encounter Details Date Type Department Care Team (Late st Contact Info) Description 11/03/2023 Orders Only [facility] MEDICINE 230 [place], [place] [phone] ProviderHiral MD Social History Tobacco Use Types [...] EDT Clinical Support [facility] MEDICINE [address] [place] [address] 11/23/2024 1:30 PM EDT Office Visit [facility] ADULT DENTAL [address] [place] [address] Cristian Finley DDS 230 [place] [address] 12/26/2024 9:00 AM EDT Office Visit [facility] ADULT DENTAL [address] [place] [address] Elis Arce documented as of this encounter [...] documented as of this encounter Care Teams Jute Bag Cutting Machine Operator Relationship Specialty Start Date End Date Zahraa Roca DO [address] [place] [address] PCP - General Family Medicine 07/25/18 Christian Soria FNP [address] [place] [address] Nurse Practitioner Family Medicine 06/24/23 documented as of this encounter
--- OUTSIDE RECORDS SUMMARY | 2024-10-29 14:18 | XMS_ITS | Encounter Summary ---
Author Organization [employer] Address [address] [facility] 7t [place] [address] Care Team Providers Care Plant Assigner Name Role Phone Zahraa Roca DO Primary Care Provider + [phone] Christian Soria Unavailable Unavailable Encounter Details Date Type Department Care Team (Late st Contact Info) Description 09/20/2022 Orders Only [facility] MED & PEDS [address] [place] [address] Zahraa Andino LPN Social History Tobacco Use [...] Description 11/13/2024 1:00 PM EDT Clinical Support [facility] MEDICINE 230 [place] [address] 11/23/2024 1:30 PM EDT Office Visit [facility] ADULT DENTAL [address] [place] [address] Cristian Finley DDS [address] [place] [address] 12/26/2024 9:00 AM EDT Office Visit [facility] ADULT DENTAL 230 [place], [place] [phone] Elis Arce documented as of this encounter Visit Diagnoses Not on filedocumented in this encounter Additional Health Concerns Assessment Noted Time PHQ-9 Depression Total Score: 0 08/24/19 23 2:33 PM EST documented as of this encounter Care Teams Plant Assigner Relationship Specialty Start Date End Date Zahraa Roca DO 230 [place], [place] [phone] PCP - General Family Medicine 07/25/18 Christian Soria FNP 230 [place] [address] Nurse Practitioner Family Medicine 06/24/23 documented as of this encounter
--- OUTSIDE RECORDS SUMMARY | 2024-10-29 14:18 | XMS_ITS | Encounter Summary ---
Author Organization [employer] Address [address] [place] [address] 7t [place] [address] Care Team Providers Care Salvager Name Role Phone SuryaZahraa lee Primary Care Provider + [phone] Christian Soria Unavailable Unavailable Reason for Visit * Reason Comments Med Refill Encounter Details Date Type Department Care Team (Late st Contact Info) Description 12/31/2022 Refill [facility] MEDICINE 230 [place] [address] Christian Soria FNP Anxiety Social History Tobacco [...] Description 11/13/2024 1:00 PM EDT Clinical Support [facility] MEDICINE [address] [place] [address] 11/23/2024 1:30 PM EDT Office Visit [facility] ADULT DENTAL [address] [place] [address] Cristian Finley DDS 230 [place] [address] 12/26/2024 9:00 AM EDT Office Visit [facility] ADULT DENTAL [address] [place] [address] Elis Arce documented as of this encounter Visit Diagnoses Diagnosis Anxiety Anxiety state, unspecified documented in this encounter Additional Health Concerns Assessment Noted Time PHQ-9 Depression Total Score: 0 08/24/19 23 2:33 PM EST documented as of this encounter Care Teams Salvager Relationship Specialty Start Date End Date Zahraa Roca DO 230 [place] [address] PCP - General Family Medicine 07/25/18 Christian Soria FNP 230 [place] [address] Nurse Practitioner Family Medicine 06/24/23 documented as of this encounter
== END 2024-10-29 12:16 | disposition home or self-care (01) ==
LOC: HO.HGS 11:49
PROVIDERS: PCP Family Medicine; Visit Provider Surgery
DX: Z48.89 Encounter for other specified surgical aftercare (principal)
CPT/HCPCS: 99024

== ENCOUNTER → 2024-10-29 11:49 | Outpatient (BNVA) | payer MEDICARE, MEDICAID, SELFPAY | PROVIDERS: PCP Family Medicine; Visit Provider Surgery | DX: Z08 Encounter for follow-up examination after completed treatment for malignant neoplasm (principal); Z85.828 Personal history of other malignant neoplasm of skin; Z98.890 Other specified postprocedural states | CPT/HCPCS: 99212 ==

== ENCOUNTER → 2024-11-08 09:58 | Outpatient (BNVA) | payer MEDICARE, MEDICAID, SELFPAY | PROVIDERS: PCP Family Medicine; Visit Provider Surgery Vascular Surgery ==

== ENCOUNTER 2024-11-19 17:29 | Outpatient (REF) | payer MEDICARE, MEDICAID, SELFPAY ==
--- OUTSIDE RECORDS SUMMARY | 2024-11-19 19:13 | XMS_ITS | Encounter Summary ---
Author Organization [employer] Address [address] [facility] 7t [place] [address] Care Team Providers Care Fish Processor Name Role Phone Zahraa Roca DO Primary Care Provider + [phone] Christian Soria Unavailable Unavailable Reason for Visit * Reason Onset Date Comments PT-1 10/01/2024 Encounter Details Date Type Department Care Team ([facility] st Contact Info) Description 10/01/2024 Telephone [facility] MEDICINE 230 [place], [place] [phone] Zahraa Roca DO 230 [place], [place] [phone] PT-1 (/) Social History Tobacco Use Types [...] EDT Tc from pt requesting for the Carton Filler locations for all his Pt 1 to be changed to [address] [place] [address]. If any questions contact pt at [phone] documented in this encounter Plan of Treatment Upcoming Encounters Date Type Department Care Team (Late st Contact Info) Description 12/20/2024 10:30 AM EDT Clinical Support [facility] MEDICINE 230 [place] [address] Mere Rios, HENRIK 12/26/2024 9:00 AM EDT Office Visit [facility] ADULT DENTAL 230 [place] [address] Elis Arce documented as of this encounter Visit Diagnoses Not on filedocumented in this encounter Additional Health Concerns Assessment Noted Time PHQ-9 Depression Total Score: 0 11/28/19 24 11:23 AM EDT documented as of this encounter Care Teams Fish Processor Relationship Specialty Start Date End Date Zahraa Roca DO 230 [place] [address] PCP - General Family Medicine 07/25/18 Christian Soria FNP [address] [place] [address] Nurse Practitioner Family Medicine 06/24/23 documented as of this encounter
--- OUTSIDE RECORDS SUMMARY | 2024-11-19 19:13 | XMS_ITS | Encounter Summary ---
Author Organization [employer] Address [address] [facility] 7t [place] [address] Care Team Providers Care Assistant Men'S Soccer Coach Name Role Phone Zahraa Roca DO Primary Care Provider + [phone] Christian Soria Unavailable Unavailable Reason for Visit * Reason Onset Date Comments PT1 01/03/2024 Encounter Details Date Type Department Care Team ([facility] st Contact Info) Description 01/03/2024 Telephone [facility] MEDICINE 230 [place], [place] [phone] Zahraa Roca DO 230 [place], [place] [phone] PT1 Social History Tobacco Use Types Packs/Day [...] or facility name: [facility] Facility Address: [address] [place] [address] Escort needed: Y/N: No Do you have a wheelchair: Y/N: No If yes- Manual or electric: none Visits: 7 days a week documented in this encounter Plan of Treatment Upcoming Encounters Date Type Department Care Team ([facility] Contact Info) Description 12/20/2024 10:30 AM EDT Clinical Support [facility] MEDICINE 230 [place] [address] Mere Rios RN 12/26/2024 9:00 AM EDT Office Visit [facility] ADULT DENTAL 230 [place] [address] Elis Arce documented as of this encounter Visit Diagnoses Not on filedocumented in this encounter Additional Health Concerns Assessment Noted Time PHQ-9 Depression Total Score: 0 11/28/19 24 11:23 AM EDT documented as of this encounter Care Teams Assistant Men'S Soccer Coach Relationship Specialty Start Date End Date Zahraa Roca DO 230 [place] [address] PCP - General Family Medicine 07/25/18 Christian Soria FNP 230 [place] [address] Nurse Practitioner Family Medicine 06/24/23 documented as of this encounter
--- OUTSIDE RECORDS SUMMARY | 2024-11-19 19:13 | XMS_ITS | Encounter Summary ---
Author Organization [employer] Address [address] [facility] 7t [place] [address] Care Team Providers Care Window Air Conditioner Installer Name Role Phone Zahraa Roca DO Primary Care Provider + [phone] Christian Soria Unavailable Unavailable Reason for Visit * Reason Onset Date Comments Appointment Request 06/19/2024 Encounter Details Date Type Department Care Team ([facility] Contact Info) Description 06/19/2024 Telephone [facility] MEDICINE 230 [place], [place] [phone] Zahraa Roca DO 230 [place], [place] [phone] Appointment Request Social History Tobacco Use Types [...] your housing situation today? I have valentin bealuieu 03/12/[address] you li [...] Description 12/20/2024 10:30 AM EDT Clinical Support [facility] MEDICINE 230 [place] [address] Mere Rios RN 12/26/2024 9:00 AM EDT Office Visit [facility] ADULT DENTAL 230 [place] [address] Elis Arce documented as of this encounter Visit Diagnoses Not on filedocumented in this encounter Additional Health Concerns Assessment Noted Time PHQ-9 Depression Total Score: 0 11/28/19 24 11:23 AM EDT documented as of this encounter Care Teams Window Air Conditioner Installer Relationship Specialty Start Date End Date Zahraa Roca DO 230 [place] [address] PCP - General Family Medicine 07/25/18 Christian Soria FNP 230 [place] [address] Nurse Practitioner Family Medicine 06/24/23 documented as of this encounter
--- OUTSIDE RECORDS SUMMARY | 2024-11-19 19:13 | XMS_ITS | Encounter Summary ---
Author Organization [employer] Address [address] [facility] 7t [place] [address] Care Team Providers Care Hot Header Operator Name Role Phone Zahraa Roca DO Primary Care Provider + [phone] Christian Soria Unavailable Unavailable Encounter Details Date Type Department Care Team (Late st Contact Info) Description 09/20/2022 Orders Only [facility] MED & PEDS [address] [place] [address] Zahraa Andino LPN Social History Tobacco Use [...] Description 12/20/2024 10:30 AM EDT Clinical Support [facility] MEDICINE 230 [place] [address] Mere Rios RN 12/26/2024 9:00 AM EDT Office Visit [facility] ADULT DENTAL [address] [place] [address] Elis Arce documented as of this encounter Visit Diagnoses Not on filedocumented in this encounter Additional Health Concerns Assessment Noted Time PHQ-9 Depression Total Score: 0 08/24/19 23 2:33 PM EST documented as of this encounter Care Teams Hot Header Operator Relationship Specialty Start Date End Date Zahraa Roca DO 230 [place] [address] PCP - General Family Medicine 07/25/18 Christian Soria FNP 230 [place] [address] Nurse Practitioner Family Medicine 06/24/23 documented as of this encounter
--- OUTSIDE RECORDS SUMMARY | 2024-11-19 19:13 | XMS_ITS | Encounter Summary ---
Author Organization [employer] Address [address] [place] [address] 7t [place] [address] Care Team Providers Care Sales Representative Supervisor Name Role Phone Zahraa Roca DO Primary Care Provider + [phone] Christian Soria Unavailable Unavailable Encounter Details Date Type Department Care Team (Late st Contact Info) Description 08/31/2022 Abstract [facility] MEDICINE [address] [place] [phone] Zahraa Roca DO [address] [place] [address] [phone] Social History Tobacco Use Types Packs/Day Years [...] Description 12/20/2024 10:30 AM EDT Clinical Support [facility] MEDICINE [address] [place] [address] Mere Rios RN 12/26/2024 9:00 AM EDT Office Visit [facility] ADULT DENTAL [address] [place] [address] [phone] Elis Arce documented as of this encounter Visit Diagnoses Not on filedocumented in this encounter Additional Health Concerns Assessment Noted Time PHQ-9 Depression Total Score: 0 08/24/19 2:33 PM EST documented as of this encounter Care Teams Sales Representative Supervisor Relationship Specialty Start Date End Date Zahraa Roca DO 230 [place] [address] PCP - General Family Medicine 07/25/18 Christian Soria FNP [address] [place] [address] Nurse Practitioner Family Medicine 06/24/23 documented as of this encounter
--- OUTSIDE RECORDS SUMMARY | 2024-11-19 19:13 | XMS_ITS | Encounter Summary ---
Author Organization [employer] Address 75 [facility] 7t [place] [address] Care Team Providers Care Labor Relations Worker Name Role Phone Zahraa Roca DO Primary Care Provider + [phone] Christian Soria Unavailable Unavailable Reason for Visit * Reason Onset Date Comments PT-1 04/17/2024 Encounter Details Date Type Department Care Team ([facility] st Contact Info) Description 04/17/2024 Telephone [facility] MEDICINE 230 [place], [place] [phone] Zahraa Roca DO 230 [place], [place] [phone] PT-1 Social History Tobacco Use Types Packs/Day [...] name: [facility] Address: [address] [place] [address] Escort needed: Y/N: No Do you have a wheelchair: Y/N: No If yes- Manual or electric: N/A Visits: Twice a month documented in this encounter Plan of Treatment Upcoming Encounters Date Type Department Care Team (Late st Contact Info) Description 12/20/2024 10:30 AM EDT Clinical Support [facility] MEDICINE [address] [place] [address] Mere Rios RN 12/26/2024 9:00 AM EDT Office Visit [facility] ADULT DENTAL [address] [place] [address] Elis Arce documented as of this encounter Visit Diagnoses Not on filedocumented in this encounter Additional Health Concerns Assessment Noted Time PHQ-9 Depression Total Score: 0 11/28/19 24 11:23 AM EDT documented as of this encounter Care Teams Labor Relations Worker Relationship Specialty Start Date End Date Zahraa Roca DO 230 [place] [address] PCP - General Family Medicine 07/25/18 Christian Soria FNP [address] [place] [address] Nurse Practitioner Family Medicine 06/24/23 documented as of this encounter
--- OUTSIDE RECORDS SUMMARY | 2024-11-19 19:13 | XMS_ITS | Encounter Summary ---
Author Organization [employer] Address [address] [facility] 7t [place] [address] Care Team Providers Care Ductfixing Plumber Name Role Phone Zahraa Roca DO Primary Care Provider + [phone] Christian Soria Unavailable Unavailable Reason for Visit * Reason Onset Date Comments PT-1 07/13/2024 Encounter Details Date Type Department Care Team ([facility] st Contact Info) Description 07/13/2024 Telephone [facility] MEDICINE [address] [place], [place] [phone] Zahraa Roca DO [address] [place], [place] [phone] PT-1 Social History Tobacco Use Types Packs/Day [...] Yes Provider name or facility name: [facility] Escort needed: Y/N: No Do you have a wheelchair: Y/N: No If yes- Manual or electric: Visits: (3x Monthly) documented in this encounter Plan of Treatment Upcoming Encounters Date Type Department Care Team (Late st Contact Info) Description 12/20/2024 10:30 AM EDT Clinical Support [facility] MEDICINE [address] [place] [address] Mere Rios RN 12/26/2024 9:00 AM EDT Office Visit [facility] ADULT DENTAL [address] [place] [address] Elis Arce documented as of this encounter Visit Diagnoses Not on filedocumented in this encounter Additional Health Concerns Assessment Noted Time PHQ-9 Depression Total Score: 0 11/28/19 24 11:23 AM EDT documented as of this encounter Care Teams Ductfixing Plumber Relationship Specialty Start Date End Date Zahraa Roca DO [address] [place] [id number] PCP - General Family Medicine 07/25/18 Christian Soria FNP [address] [place] [address] Nurse Practitioner Family Medicine 06/24/23 documented as of this encounter
--- OUTSIDE RECORDS SUMMARY | 2024-11-19 19:13 | XMS_ITS | Encounter Summary ---
Author Organization [employer] Address [address] [facility] 7t [place] [address] Care Team Providers Care Diesel Technician Name Role Phone Zahraa Roca DO Primary Care Provider + [phone] Christian Soria Unavailable Unavailable Reason for Visit * Reason Onset Date Comments PT-1 03/15/2024 Encounter Details Date Type Department Care Team ([facility] st Contact Info) Description 03/15/2024 Telephone [facility] MEDICINE [address] [place], [place] [phone] Zahraa Roca DO [address] [place], [place] [phone] PT-1 Social History Tobacco Use Types Packs/Day [...] Y/N: Yes Provider name or facility name: [facility] Facility Address: [address] [place] [address] Escort needed: Y/N: No Do you have a wheelchair: Y/N: No If yes- Manual or electric: no Visits: 3 documented in this encounter Plan of Treatment Upcoming Encounters Date Type Department Care Team (Late st Contact Info) Description 12/20/2024 10:30 AM EDT Clinical Support [facility] MEDICINE [address] [place] [address] Mere Rios RN 12/26/2024 9:00 AM EDT Office Visit [facility] ADULT DENTAL [address] [place] [address] Elis Arce documented as of this encounter Visit Diagnoses Not on filedocumented in this encounter Additional Health Concerns Assessment Noted Time PHQ-9 Depression Total Score: 0 11/28/19 24 11:23 AM EDT documented as of this encounter Care Teams Diesel Technician Relationship Specialty Start Date End Date Zahraa Roca DO [address] [place] [address] PCP - General Family Medicine 07/25/18 Christian Soria FNP [address] [place] [address] Nurse Practitioner Family Medicine 06/24/23 documented as of this encounter
--- OUTSIDE RECORDS SUMMARY | 2024-11-19 19:13 | XMS_ITS | Encounter Summary ---
Author Organization [employer] Address [address] [place] [address] 7t [place] [address] Care Team Providers Care Metal Engraver Name Role Phone Zahraa Roca DO Primary Care Provider + [phone] Christian Soria Unavailable Unavailable Encounter Details Date Type Department Care Team (Late st Contact Info) Description 08/12/2022 Orders Only [facility] MED & PEDS [address] [place] [address] Zahraa Andino LPN Social History Tobacco Use [...] Description 12/20/2024 10:30 AM EDT Clinical Support [facility] MEDICINE [address] [place] [address] Mere Rios RN 12/26/2024 9:00 AM EDT Office Visit [facility] ADULT DENTAL [address] [place] [address] Elis Arce documented as of this encounter Visit Diagnoses Not on filedocumented in this encounter Care Teams Metal Engraver Relationship Specialty Start Date End Date Zahraa Roca DO [address] [place] [address] PCP - General Family Medicine 07/25/18 Christian Soria FNP [address] [place] [id number] Nurse Practitioner Family Medicine 06/24/23 documented as of this encounter
--- OUTSIDE RECORDS SUMMARY | 2024-11-19 19:13 | XMS_ITS | Encounter Summary ---
Author Organization [employer] Address [address] [facility] 7t [place] [address] Care Team Providers Care Optical Goods Worker Name Role Phone Zahraa Roca DO Primary Care Provider + [phone] Christian Soria Unavailable Unavailable Encounter Details Date Type Department Care Team (Late st Contact Info) Description 10/21/2022 Orders Only [facility] MED & PEDS [address] [place] [address] Zahraa Andino LPN Social History Tobacco Use [...] Description 12/20/2024 10:30 AM EDT Clinical Support [facility] MEDICINE [address] [place] [address] Mere Rios RN 12/26/2024 9:00 AM EDT Office Visit [facility] ADULT DENTAL [address] [place] [address] Elis Arce documented as of this encounter Visit Diagnoses Not on filedocumented in this encounter Additional Health Concerns Assessment Noted Time PHQ-9 Depression Total Score: 0 08/24/19 23 2:33 PM EST documented as of this encounter Care Teams Optical Goods Worker Relationship Specialty Start Date End Date Zahraa Roca DO [address] [place] [address] PCP - General Family Medicine 07/25/18 Christian Soria FNP [address] [place] [address] Nurse Practitioner Family Medicine 06/24/23 documented as of this encounter
--- OUTSIDE RECORDS SUMMARY | 2024-11-19 19:13 | XMS_ITS | Encounter Summary ---
Author Organization [employer] Address [address] [facility] 7t [place] [address] Care Team Providers Care Bowling Alley Refinisher Name Role Phone Zahraa Roca DO Primary Care Provider + [phone] Christian Soria Unavailable Unavailable Reason for Visit * Reason Onset Date Comments Appt question 08/09/2024 Encounter Details Date Type Department Care Team ([facility] st Contact Info) Description 08/09/2024 Telephone [facility] MEDICINE [address] [place], [place] [phone] Zahraa Roca DO [address] [place], [place] [phone] Appt question Social History Tobacco Use Types [...] aug appt its for that. Any questions [phone] documented in this encounter Plan of Treatment Upcoming Encounters Date Type Department Care Team (Late st Contact Info) Description 12/20/2024 10:30 AM EDT Clinical Support [facility] MEDICINE [address] [place] [address] Mere Rios RN 12/26/2024 9:00 AM EDT Office Visit [facility] ADULT DENTAL [address] [place] [address] Elis Arce documented as of this encounter Visit Diagnoses Not on filedocumented in this encounter Additional Health Concerns Assessment Noted Time PHQ-9 Depression Total Score: 0 11/28/19 24 11:23 AM EDT documented as of this encounter Care Teams Bowling Alley Refinisher Relationship Specialty Start Date End Date Zahraa Roca DO [address] [place] [address] PCP - General Family Medicine 07/25/18 Christian Soria FNP [address] [place] [address] Nurse Practitioner Family Medicine 06/24/23 documented as of this encounter
--- OUTSIDE RECORDS SUMMARY | 2024-11-19 19:13 | XMS_ITS | Encounter Summary ---
Author Organization [employer] Address [address] [place] [address] 7t [place] [address] Care Team Providers Care Graduate Studies Dean Name Role Phone SuryaZahraa lee Primary Care Provider + [phone] Christian Soria Unavailable Unavailable Reason for Visit * Reason Comments Med Refill Encounter Details Date Type Department Care Team (Late st Contact Info) Description 12/19/2022 Refill [facility] MEDICINE [address] [place] [phone] Christian Soria FNP Anxiety Social History Tobacco [...] Description 12/20/2024 10:30 AM EDT Clinical Support [facility] MEDICINE [address] [place] [phone] Mere Rios RN 12/26/2024 9:00 AM EDT Office Visit [facility] ADULT DENTAL [address] [place] [phone] Elis Arce documented as of this encounter Visit Diagnoses Diagnosis Anxiety Anxiety state, unspecified documented in this encounter Additional Health Concerns Assessment Noted Time PHQ-9 Depression Total Score: 0 08/24/19 23 2:33 PM EST documented as of this encounter Care Teams Graduate Studies Dean Relationship Specialty Start Date End Date Zahraa Roca DO [address] [place] [address] PCP - General Family Medicine 07/25/18 Christian Soria FNP [address] [place] [address] Nurse Practitioner Family Medicine 06/24/23 documented as of this encounter
--- OUTSIDE RECORDS SUMMARY | 2024-11-19 19:13 | XMS_ITS | Encounter Summary ---
Author Organization [employer] Address [address] [facility] 7t [place] [address] Care Team Providers Care Remedial Teacher Name Role Phone Zahraa Roca DO Primary Care Provider + [phone] Christian Soria Unavailable Unavailable Reason for Visit * Reason Onset Date Comments Appointment Request 08/03/2024 Encounter Details Date Type Department Care Team ([facility] Contact Info) Description 08/03/2024 Telephone [facility] MEDICINE [address] [place], [place] [phone] Zahraa Roca DO [address] [place], [place] [phone] Appointment Request Social History Tobacco Use Types [...] Miscellaneous Notes * Telephone Encounter - Miya Mcloed - 08/03/2024 3:57 PM EST Tc from pt requesting to r/s today's missed appointment with dermatology. Contact pt at [phone] documented in this encounter Plan of Treatment Upcoming Encounters Date Type Department Care Team (Late st Contact Info) Description 12/20/2024 10:30 AM EDT Clinical Support [facility] MEDICINE [address] [place] [address] Mere Rios RN 12/26/2024 9:00 AM EDT Office Visit [facility] ADULT DENTAL [address] [place] [address] Elis Arce documented as of this encounter Visit Diagnoses Not on filedocumented in this encounter Additional Health Concerns Assessment Noted Time PHQ-9 Depression Total Score: 0 11/28/19 24 11:23 AM EDT documented as of this encounter Care Teams Remedial Teacher Relationship Specialty Start Date End Date Zahraa Roca DO [address] [place] [address] PCP - General Family Medicine 07/25/18 Christian Soria FNP [address] [place] [address] Nurse Practitioner Family Medicine 06/24/23 documented as of this encounter
--- OUTSIDE RECORDS SUMMARY | 2024-11-19 19:13 | XMS_ITS | Clinical Summary ---
Author Organization [employer] Address [address] [facility] [address] [place] [address] Care Team Providers Care Product Communications Manager Name Role Phone AbelinoZahraa Primary Care Provider + [phone] Christian Soria Unavailable Unavailable Allergies No known [...] by mouth at bedtime. 10/08/19 25 Active methocarbamol (Robaxin) 750 MG tablet Take 1 tablet (750 mg) by mouth if needed in the morning, at noon, and at bedtime for muscle spasms. 60 tablet 3 10/19/19 25 025 Active amitriptyline (Elavil) 10 MG tablet Take 1 tablet (10 mg) by mouth at bedtime. 30 tablet 3 10/20/19 25 025 Active clonazePAM (KlonoPIN) 1 MG tabletIndicat ions:Anxiety Take 1 tablet (1 mg) by mouth if needed in the morning and at bedtime for anxiety for up to 28 days. 56 tablet 11/02/19 25 025 Active clonazePAM (KlonoPIN) 1 MG tabletIndicat ions:Anxiety Take 1 tablet (1 mg) by mouth Once per day for 28 days. Do not start before October 15, 2024. 28 tablet 10/16/19 25 025 Discontinued(Re order (will not trigger [...] any issues or concerns, he should contact [facility]. All his questions were answered. He [...] organization. Date Type Department Care Team Description 11/19/2024 2:00 PM EDT Clinical Support [address] [address] Yanira Payne, RN Anxiety; Chronic left-sided low back pain without sciatica 11/19/2024 Travel 11/13/[address] [address] Zahraa Roca DO Appointment Request 11/01/[address] [address] Zahraa Roca DO Medication Question 10/30/[address] [address] Zahraa Roca DO Medication Question; Med Refill 10/29/[address] [address] Zahraa Roca DO Anxiety 10/24/2024 Patient Outreach [address] [address] Zahraa Roca DO Care Coordination ([facility] outreach for SDOH PT-1 and food needs-referral completed /) 10/24/[address] [address] Zahraa Roca DO PT1 10/19/2024 Orders Only GENERIC EXTERNAL DATA DEPARTMENT Provider, Generic External Data 10/18/2024 Refill [facility] [place] [address] Zahraa Roca, 10/18/2024 Refill [facility] [place] [address] Zahraa Roca, 10/16/2024 11:45 AM EDT Office Visit [facility] [place] [address] Zahraa Roca, Chronic bilateral low back pain, unspecified whether sciatica present (Primary Dx) 10/16/2024 Travel 10/15/2024 Orders Only GENERIC EXTERNAL DATA DEPARTMENT Provider, Generic External Data 10/11/2024 10:30 AM EDT Clinical Support [place] [address] Mere Rios RN Chronic left-sided low back pain without sciatica (Primary Dx) 10/11/2024 Orders Only [facility] [place] [address] Zahraa Roca, 10/11/2024 Refill [facility] [place] [address] Mere Rios RN Anxiety 10/11/2024 Travel 10/10/2024 Orders Only [facility] [place] [address] Zahraa Roca DO 10/09/2024 Patient Outreach [place] [address] Zahraa Roca DO Care Coordination (CH[facility] outreach for SDOH PT-1 and food needs-referral completed /) 10/08/2024 Patient Outreach [place] [address] Zahraa Roca DO Transition Of Care (Tcm) (HDF- Rescheduled HDF appt) 10/08/2024 Patient Outreach [place] [address] Zahraa Roca DO Transition Of Care (Tcm) (HDF- scheduled and SDOH screening negative and Tobacco screening positive) 10/07/2024 Telephone [facility] [address] [place] [address] Renate Solorzano MD 10/05/2024 9:00 AM EDT Office Visit [facility] [address] [place] [address] Marcos Mckeon MD Chronic left-sided low back pain without sciatica (Primary Dx); Right buttock pain; Elevated blood pressure reading in office without diagnosis of hypertension 10/05/2024 Telephone [facility] [address] [place] [address] Marcos Mckeon MD 10/05/2024 Population Health Risk Score [facility] () [address] [phone] Provider, Population Health Generic 10/05/2024 Travel 10/04/[address] [address] Zahraa Roca DO Nurse Triage 10/03/[address] [address] Zahraa Roca DO Appointment Request 10/02/2024 Patient Outreach [address] [address] Zahraa Roca DO Care Coordination (CHW outreach for SDOH PT-1 - LVM ) 10/02/[address] [address] Zahraa Roca DO PT-1 10/01/2024 Patient Outreach [address] [address] Zahraa Roca DO Care Coordination (CHW outreach for SDOH PT-1 and food needs-referral completed /) 10/01/[address] [address] Zahraa Roca DO PT-1 (/) 09/21/[address] [address] Zahraa Roca DO Recall Letter (Recall Letter sent 09/21/24.) 09/20/2024 Telephone [facility] [place] [address] Mere Rios, HENRIK UTOX confirmation Neg BZO 09/19/2024 Orders Only GENERIC EXTERNAL DATA DEPARTMENT Provider, Generic External Data 09/17/2024 Patient Outreach [facility] [place] [address] Zahraa Roca DO Transition Of Care (Tcm) 09/12/2024 9:30 AM EST Clinical Support [facility] [place] [address] Mere Rios, HENRIK Anxiety (Primary Dx); Opioid dependence on agonist therapy (CMS/HCC) 09/12/2024 Telephone [facility] [place] [place] [address] Zahraa Roca DO Patient message 09/12/2024 [address] [place] [address] Mere Rios, HENRIK 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 from Last 3 Months Immunizations Name Administration [...] Description 12/20/2024 10:30 AM EDT Clinical Support [facility] [address] [place] [address] Mere Rios RN 12/26/2024 9:00 AM EDT Office Visit [facility] [address] [place] [address] Elis Arce Health Maintenance Due Date Last Done Comments CT Colonography 1970 Dental Prophylaxis 1970 FIT DNA/Cologuard 1970 Sigmoidoscopy 1970 Pneumococcal Vaccine: 50+ Years (1 of 2 - PCV) 1987 FIT 07/13/2023 07/13/2022 FOBT 07/13/2023 07/13/2022 COVID-19 Vaccine ( - season) 2024 Influenza Vaccine (#1) 2024 Dental Oral Exam 09/20/2024 03/19/2024 Dental X-Ray: [facility]ings 03/20/2025 03/19/2024, 10/10 SDOH Screening 10/08/2025 10/08/2024 Alcohol/Substance Use Screening [...] Comments POCT MARIO-14 URINE DRUG SCREEN Routine 11/19/2024 2:28 PM EDT Anxiety Chronic left-sided low back pain without sciatica GROSS AND MICROSCOPIC LEVEL 4 Routine 10/19/2024 [...] AM EST Opioid dependence on agonist therapy ([facility]/HCC) DRUG MONITORING, BENZODIAZEPINES, QUANTITATIVE, URINE Routine 09/12/2024 9:30 AM EST Anxiety INTRAORAL - COMPLETE SERIES OF RADIOGRAPHIC IMAGES [...] Recently Relevant to Health Maintenance Results * POCT MARIO-14 Urine Drug Screen (11/19/2024 2:28 PM EDT) Only the most recent of3 resultswithin the time period is included. THC Positive Cocaine Screen, Urine Negative Opiate Screen, Urine Negative Methamphetamine Screen Urine Negative Amphetamine Screen, Urine Negative Benzodiazepines Screen, Urine Negative Barbiturate Screen, Urine Negative Methadone Screen, Urine Positive Buprenophine Screen, Urine Negative TCA, Urine Negative MDMA Urine Negative ng/mL Oxycodone Screen, Urine Negative Phencyclidine (PCP), Urine Negative Propoxyphene, Urine Negative Fentanyl, Urine Negative QC Media Lot # [id number] Lot# Expiration Date Urine Urine specimen obtained by clean catch procedure / Unknown 11/19/2024 2:28 PM EDT Yanira Siddiqi, HENRIK - 11/19/2024 2:30 PM EDT UTOX cup Lot#[id number] Exp. 03/13/26 Internal Pass Control Zahraa Roca DO POINT OF CARE TEST ENTER/JOANNA T ORDERABLES Final Result * Gross and Microscopic Level 4 (10/19/2024 11:50 AM EDT) 10/19/2024 11:5 0 AM EDT 10/19/2024 1:05 PM EDT Rey [facility] - 10/22/2024 2:46 PM EDT ----- ------- Name: Cristobal Enriquez ? Age/Sex: 54/M ? : 1970 Unit#: [id number] ?? Attend Dr: Sergei Christine MD ?Re10/19/24 ?Status: DEP SDC ? Location: HO.SSS ?Disch: ? ----- ------- SPEC : [id number] ? RECD: 10/19/24 ? STATUS: ??SOUT ? REQ NUM: [id number] ? NGA: 10/19/24-1150 ? SUBM DR: Sergei Christine MD ? ENTERED: ??10/19/24 ?SP TYPE: Surgical ? OTHR DR: Zahraa [...] cassettes A2 through A8, 2 pieces each. ??([facility]) Copies To: ?? Zahraa Roca DO ?? [facility] ?? [address] ?? [place] [address] ?? [phone] ?? Sergei Christine MD ?? [facility] General Surgeons ?? [address] ?? [place] [address] ?? [phone] ? CONTINUED ON NEXT PAGE ----- ------- Name: Cristobal Enriquez ? Age/Sex: 54/M ? : 1970 Unit#: [id number] ?? Attend Dr: Sergei Christine MD ?Re10/19/24 ?Status: DEP SDC ? Location: HO.SSS ?Disch: ? ----- ------- SPEC : [id number] ? RECD: 10/19/24-2335 ? STATUS: ??SOUT ? REQ NUM: [id number] ? NGA: 10/19/24-1150 ? SUBM DR: Sergei Christine MD ? ENTERED: ??10/19/24-1321 ?SP TYPE: Surgical ? OTHR DR: Zahraa Roca DO ? ORDERED: ??Gross Micro L4 ? Copies To: ??(Continued) ?? [email or web address] ----- ------- Signed (signature on file) Mai Astudillo MD 10/22/24 1446 ? ----- ------- ? END OF REPORT ? us Generic External Data Provider LAB CYTOLOGY BRIAN SANCHEZ Final Result Performing Organization Address City/State/[facility] Co de Phone Number [facility] [address] [place] [phone] * (ABNORMAL) Drug Monitoring, Panel 1, Screen, Urine (10/19/2024 9:30 AM EDT) Pathologist [facility] Opiate Screen Urine Not Detected Not Detect [facility] Comment:Opiate cut-off is 30 0 ng/mL.Positive results are unconfirmed and should not be used fornon-medical purposes. Barbiturates, Urine Not Detected Not Detect [facility] Comment:Barbiturate cut-off is 200 ng/mL.Positive results are unconfirmed and should not be used fornon-medical purposes. Phencyclidine Screen Urine Not Detected Not Detect [facility] Comment:Phencyclidine cut-of f is 25 ng/mL.Positive results are unconfirmed and should not be used fornon-medical purposes. Amphetamine Screen Urine Not Detected Not Detect [facility] Comment:Amphetamine cut-off is 1000 ng/mL.Positive results are unconfirmed and should not be used fornon-medical purposes. Benzodiazepines Screen Urine Not Detected Not Detect [facility] Comment:Benzodiazepine cut-o ff is 200 ng/mL.Positive results are unconfirmed and should not be used fornon-medical purposes. Cocaine Screen Urine POSITIVE(A) Not Detect [facility] Comment:Cocaine cut-off is 3 00 ng/mL.Positive results are unconfirmed and should not be used fornon-medical purposes. Cannabinoid Screen Urine POSITIVE(A) Not Detect [facility] Comment:Cannabinoid cut-off is 50 ng/mL.Positive results are unconfirmed and should not be used fornon-medical purposes. Methadone Screen, Urine Positive(A) Not Detect ng/mL [facility] Comment:Methadone cut-off is 300 ng/mL.Positive results are unconfirmed and should not be used fornon-medical purposes. FENTANYL URINE Not Detected Not Detect [facility] Comment:Fentanyl cut-off is 1 ng/mL.Positive results are unconfirmed and should not be used fornon-medical purposes. Oxycodone Urine Screen Not Detected Not Detect ng/mL [facility] Comment:Oxycodone cut-off is 100 ng/mL.Positive results are unconfirmed and should not be used fornon-medical purposes. Buprenorphine Screen Not Detected Not Detect ng/mL [facility] Comment:Buprenorphine cut-of f is 5 ng/mL.Positive results are unconfirmed and should not be used fornon-medical purposes. 10/19/2024 9:30 AM EDT 10/19/2024 9:48 AM EDT us Generic External Data Provider LAB URINE ORDERAB LES Final Result Performing Organization Address City/State/[facility] Co de Phone Number [facility] [address] [place] [phone] * XR Thoracic Spine 2 Views (10/16/2024 1:36 PM EDT) Anatomical Region Laterality Modality Spine, T-spine Radiographic Nara ging 10/16/2024 1:36 PM EDT Narrative 10/16/2024 2:21 PM EDT ?[facility] ?[address] ?[place] [address] ?XRay Report ? Signed ? Patient: Szydlo,Cristobal J ?MR#: [id number] ?? 54 ? : 1970 ?Acct:[id number] ? Age/Sex: 54 / M ?ADM Date: 10/16/24 ? Loc: HO.HHCX ? Attending Dr: Zahraa Roca DO ? Ordering Physician: Zahraa Roca DO ?? Date of Service: 10/16/24 ?? Procedure(s): XR thoracic spine 2V ?? Accession Number(s): [id number] ? cc: Zahraa Roca DO ? EXAMINATION: [...] DD/ 1336 ? TD/TT: 10/16/24 1400 ? Docketing Specialist: ? Procedure Note Denys Ervin - 10/16/[address] [address] XRay Report Signed Patient: Cristobal Enriquez JMR#: [id number] 54 : 1970Acct:[id number] Age/Sex: 54 / MADM Date: 10/16/24 Loc: HO.HHCX Attending Dr: Zahraa Roca DO Ordering Physician: Zahraa Roca DO Date of Service: 10/16/24 Procedure(s): XR thoracic spine 2V Accession Number(s): [id number] cc: Zahraa Roca DO EXAMINATION: XR THORACIC [...] 10/16/24 1419 DD/ 1336 TD/TT: 10/16/24 1400 Docketing Specialist: Zahraa Roca DO IMG XR PROCEDURES Edited Res ult - Final * (ABNORMAL) CBC (10/15/2024 12:57 PM EDT) White Blood Count 7.6 4.8 - 10.8 X10*3/uL [facility] Red Blood Count 3.80(L) 4.60 - 5.80 X10*6/uL [facility] Hemoglobin 11.3(L) 14.0 - 18.0 g/dl [facility] Hematocrit 35.3(L) 42.0 - 52.0 % [facility] Mean Corpuscular Volume 92.9 80.0 - 98.0 fL [facility] Mean Corpuscular Hemoglobin 29.7 27.0 - 33.0 pg [facility] Mean Corpuscular HGB Conc 32.0 31.0 - 36.0 g/dl [facility] Red Cell Distribution Width 12.1 11.0 - 16.0 % [facility] Platelet Count 184 160 - 400 X10*3/uL [facility] Mean Platelet Volume 11.2 9.4 - 12.4 fL [facility] NRBC Pct Auto 0.0 0.0 - 0.2 /100WBC [facility] NRBC Abs Auto 0.000 0.0 - 0.012 X10*3/uL [facility] 10/15/2024 12:5 7 PM EDT 10/15/2024 12:57 PM EDT us Generic External Data Provider LAB BLOOD ORDERAB LES Final Result [facility] [address] [place] [phone] [phone] * (ABNORMAL) Basic Metabolic Panel (10/15/2024 12:57 PM EDT) Sodium 139 135 - 145 mmol/L [facility] Potassium 4.0 3.3 - 5.1 mmol/L [facility] Chloride 104 96 - 108 mmol/L [facility] Carbon Dioxide 30(H) 22 - 29 mmol/L [facility] Anion Gap 9(L) 12 - 20 [facility] Urea Nitrogen (BUN) 13 9 - 16 mg/dL [facility] Creatinine, Serum 0.79 0.5 - 1.4 mg/dL [facility] Creatinine Clr Calc Pharmacy 107.8 [facility] Comment:eGFR (calculated fro m the MDRD study equation) and eCrCl(calculated from the Cockcroft-Gault equation) are based ondifferent parameters and may not yield comparable results.If eCrCl result is absurd, please check patient'sheight/weight. Estimated Glomerular Filt Rate >60 [facility] Comment:Chronic Kidney Disea se: Estimated GFR < 60 mL/min/1.32c1Eueezq Kidney Disease: Estimated GFR < 15 mL/min/1.73m2 Glucose 102 60 - 115 mg/dL [facility] Calcium 8.7 8.4 - 10.2 mg/dL [facility] 10/15/2024 12:5 7 PM EDT 10/15/2024 12:57 PM EDT us Generic External Data Provider LAB BLOOD ORDERAB LES Final Result [facility] [address] [place] [phone] [phone] * Drug Monitoring, Benzodiazepines, Quantitative, Urine (10/11/2024 10:30 AM EDT) Only the most recent of2 resultswithin the time period is included. Nordiazepam, GCMS Urine NEGATIVE [facility] Oxazepam, GCMS Urine NEGATIVE [facility] Lorazepam GCMS Urine NEGATIVE [facility] Alprazolam, GCMS Urine NEGATIVE [facility] Alphahydroxytriazolam , GCMS Ur NEGATIVE [facility] Temazepam, GCMS Urine NEGATIVE [facility] Alphahydroxymidazolam ,GCMS Ur NEGATIVE [facility] Aminoclonazepam, GCMS Urine 66 [facility] Comment:REFERENCE RANGE: <25 ng/mL Flurazepam Metabolite,GCMS Ur NEGATIVE [facility] Benzodiazepines Comments SEE NOTE [facility] Comment:This drug testing is for medical treatment only. Analysiswas performed as non-forensic testing and these resultsshould be used only by healthcare providers to renderdiagnosis or treatment, or to monitor progress of medicalconditions.Benzodiazepines Notes:Aminoclonazepam detected is consistent with the use of thedrug Clonazepam.LDT Notes:Confirmation tests were developed and their analyticalperformance characteristics have been determined by [employer]. It has not been cleared or approved by the FDA.This assay has been validated pursuant to the CLIAregulations and is used for clinical purposes.Healthcare Providers needing Interpretation assistance,please contact us at [phone] ( ) M-F,8am to 10pm ESTTHIS TEST PERFORMED AT:[employer] [place] [phone] DIRECTOR: SOCRATES MATHIAS MD 10/11/2024 10:3 0 AM EDT 10/11/2024 7:21 PM EDT Zahraabuck Londonjesus DO LAB URINE ORDERABLES Final R esult Performing Organization Address [facility] de Phone Number [facility] [address] [place] [phone] * (ABNORMAL) Oxycodone Screen, Urine (10/11/2024 10:30 AM EDT) Oxycodone Urine Screen Positive( A) Not Detect ng/mL [facility] Comment:Oxycodone cut-off is 100 ng/mL.Positive results are unconfirmed and should not be used fornon-medical purposes. Urine 10/11/2024 10:3 0 AM EDT 10/11/2024 7:25 PM EDT Zahraa Abelino DO LAB URINE ORDERABLES Final R esult Performing Organization Address [facility] de Phone Number [facility] [address] [place] [phone] * XR Pelvis 1-2 Views (10/05/2024 9:43 AM EDT) Anatomical Region Laterality Modality Body, Pelvis Radiographic Nara ging 10/05/2024 9:43 AM EDT Narrative 10/05/2024 12:22 PM EDT ?[facility] ?[address] ?[place] [address] ?XRay Report ? Signed ? Patient: Cristobal Enriquez ?MR#: [id number] ?? 54 ? : 1970 ?Acct:[id number] ? Age/Sex: 54 / M ?ADM Date: 03/14/25 ? Loc: HO.HHCX ? Attending Dr: Marcos Mckeon MD ? Ordering Physician: MARCOS MCKEON MD ?? Date of Service: 10/05/24 ?? Procedure(s): XR pelvis 1-2V ?? Accession Number(s): [id number] ? cc: MARCOS MCKEON MD ? EXAMINATION: [...] DD/ 0943 ? TD/TT: 10/05/24 1000 ? Docketing Specialist: ? Procedure Note Denys Ervin - 10/05/[address] [address] XRay Report Signed Patient: Cristobal Enriquez JMR#: [id number] 54 : 1970Acct:[id number] Age/Sex: 54 / MADM Date: 10/05/24 Loc: HO.HHCX Attending Dr: Marcos Mckeon MD Ordering Physician: MARCOS MCKEON MD Date of Service: 10/05/24 Procedure(s): XR pelvis 1-2V Accession Number(s): [id number] cc: MARCOS MCKEON MD EXAMINATION: XR PELVIS [...] 10/05/24 1219 DD/ 0943 TD/TT: 10/05/24 1000 Docketing Specialist: us Marcos Mckeon MD IMG XR PROCEDURES Final Result * XR Lumbar Spine 2-3 Views (10/05/2024 9:43 AM EDT) Anatomical Region Laterality Modality Spine, L-spine Radiographic Nara ging 10/05/2024 9:43 AM EDT Narrative 10/05/2024 12:20 PM EDT ?[facility] ?[address] ?[place] [address] ?XRay Report ? Signed ? Patient: Cristobal Enriquez ?MR#: [id number] ?? 54 ? : 1970 ?Acct:[id number] ? Age/Sex: 54 / M ?ADM Date: 10/05/24 ? Loc: HO.HHCX ? Attending Dr: Marcos Mckeon MD ? Ordering Physician: MARCOS MCKEON MD ?? Date of Service: 10/05/24 ?? Procedure(s): XR lumbar spine 2-3V ?? Accession Number(s): [id number] ? cc: MARCOS MCKEON MD ? EXAMINATION: [...] of L2-3 disc space with a central vucf-iy-wxxu appearance. ?? Moderate loss at L1-2 and [...] DD/ 0943 ? TD/TT: 10/05/24 1000 ? Docketing Specialist: ? Procedure Note Donlaytonter, Image - 10/05/2024 [place] [address] XRay Report Signed Patient: Cristobal Enriquez JMR#: [id number] 54 : 1970Acct:[id number] Age/Sex: 54 / MADM Date: 10/05/24 Loc: HO.HHCX Attending Dr: Marcos Mckeon MD Ordering Physician: MARCOS MCKEON MD Date of Service: 10/05/24 Procedure(s): XR lumbar spine 2-3V Accession Number(s): [id number] cc: MARCOS MCKEON MD EXAMINATION: XR LUMBOSACRAL [...] of L2-3 disc space with a central yole-kb-albk appearance. Moderate loss at L1-2 and L3-4 [...] 10/05/24 1217 DD/ 0943 TD/TT: 10/05/24 1000 Docketing Specialist: Marcos Mckeon MD IMG XR PROCEDURES Final Result * Gross and Microscopic Level 3 (09/19/2024 9:00 AM EST) 09/19/2024 9:00 AM EST 09/19/2024 12:05 PM EST [facility] - 09/20/2024 3:24 PM EST ----- ------- Name: Cristobal Enriquez ? Age/Sex: 54/M ? : 1970 Unit#: [id number] ?? Attend Dr: Sergei Christine MD ?Re09/19/24 ?Status: DEP REF ? Location: HO.LNP ?Disch: ? ----- ------- SPEC : [id number] ? RECD: 09/19/24-1204 ? STATUS: ??SOUT ? REQ NUM: [id number] ? NGA: 09/19/24 ? SUBM DR: Sergei [...] ? Age/Sex: 54/M ? : 1970 Unit#: [id number] ?? Attend Dr: Sergei Christine MD ?Re09/19/24 ?Status: DEP REF ? Location: HO.LNP ?Disch: ? ----- ------- SPEC : [id number] ? RECD: 09/19/24 ? STATUS: ??SOUT ? REQ NUM: [id number] ? NGA: 09/19/24 ? SUBM DR: Sergei Christine MD ? ENTERED: ??09/19/24 ?SP TYPE: Surgical ? OTHR DR: Zahraa Roca DO ? ORDERED: ??Gross Micro L3/2 ? Gross Description ?(Continued) CEDS This case was reviewed intradepartmentally. ??Results given to Dr. Christine by secure text by Dr. Naik on 09/20/24 at 3:22 pm. Copies To: ?? Zahraa Roca DO ?? [facility] ?? [address] ?? [place] [address] ?? [phone] ?? Sergei Christine MD ?? [facility] General Surgeons ?? [address] ?? [place] [address] ?? [phone] ?? [email or web address] ----- ------- Signed (signature on file) Lore Naik 09/20/24 1524 ? ----- ------- ? END OF REPORT ? us Generic External Data Provider LAB CYTOLOGY BRIAN SANCHEZ Final Result [facility] [address] [place], [place] [phone] * HIV-1/2 Antigen and Antibodies, Fourth Generation, with Reflexes (10/24/2023 10:26 AM EDT) Pathologist [facility] HIV AB/AG Nonreactive Nonreactive [facility] Comment:HIV-1 p24 Ag and/or HIV-1/HIV-2 Ab not detected.A test result that is nonreactive does not exclude thepossibility of exposure to or infection with HIV-1 and/orHIV-2. Nonreactive results in this assay for individualswith prior exposure to HIV-1 and/or HIV-2 may be due toantigen and antibody levels that are below the limit ofdetection of this assay.[employer] HIV Ag/Ab Combo assay result andsupplemental assay results should be interpreted inconjunction with the patient's clinical presentation,history and other laboratory results. If the results areinconsistent with clinical evidence, additional testing issuggested to confirm the result. Blood Venous blood specimen / Unknown 10/24/2023 10:26 AM EDT 10/24/2023 11:09 AM EDT us Zahraa Roca DO LAB BLOOD ORDERABLES Final R esult [facility] [address] [place] [address] [phone] * (ABNORMAL) Lipid Panel, Standard (10/24/2023 10:26 AM EDT) Triglycerides 48 <150 mg/dL [facility] Comment:Desirable Triglyceri de: less than 150 mg/dLBorderline High Triglyceride 150-199 mg/dLHigh Triglyceride: 200-499 mg/dLVery High Triglyceride: greater than or equal to 5OO mg/dL Cholesterol 174 <200 mg/dL [facility] Comment:Desirable Cholestero l: less than 200 mg/dLBorderline High Cholesterol: 200-239 mg/dLHigh Cholesterol: greater than 239 mg/dL LDL Cholesterol Calculated 113(H) <100 mg/dL [facility] Comment:Desirable LDL: less than 100 mg/dLNear Optimal/Above Optimal LDL: 110- 129 mg/dLBorderline High LDL: 130-159 mg/dLHigh LDL: 160-189 mg/dLVery High LDL: greater than or equal to 190 mg/dL HDL Cholesterol 52 >40 mg/dL [facility] Comment:Desirable HDL: great er than 40 mg/dL Note: This HDL assay may give artificially low results in patients with liver disease. Blood Venous blood specimen / Unknown 10/24/2023 10:26 AM EDT 10/24/2023 1:07 PM EDT Zahraa Roca DO LAB BLOOD ORDERABLES Final R esult Performing Organization Address [facility] Co de Phone Number [facility] [address] [place] [phone] * Hm Colonoscopy (03/16/2023 9:43 AM EDT) Historical Provider HEALTH MAINTENANCE Final Result * Fecal Globin by Immunochemistry (07/13/2022 12:00 AM EST) Fecal Globin By Immunochemistry SEE NOTE [employer] Comment: ??FECAL GLOBIN BY IMMUNOCHEMISTRY ?Micro Number: ?[id number] ??Test Status: ? Final ??Specimen Source: ?? Insure (tm) fobt test card ??Specimen Quality: ??Adequate ??Fecal Globin: ?Not Detected 07/13/2022 07/28/2022 8:2 7 AM EST Zahraa Roca DO LAB BODY FLUIDS AND STOOLS O RDERABLES Final Result Performing Organization Address [facility] Co de Phone Number [employer] [address] [facility] [place] [address] [employer] [place] [employer] [address] [facility], ([address]) [place] [address] from Last 3 Months or Most Recently Relevant to Health Maintenance Insurance [facility] STANDARD MEDICARE DENTAL-[facility] MEDICAID STAND ADULT Care Teams Product Communications Manager Relationship Specialty Start Date End Date Zahraa Roca DO [address] [place] [address] PCP - General Family Medicine 07/25/18 Christian Soria FNP [address] [place] [address] Nurse Practitioner Family Medicine 06/24/23
--- OUTSIDE RECORDS SUMMARY | 2024-11-19 19:13 | XMS_ITS | Encounter Summary ---
Author Organization [email or web address] Address [address] [place] [address] 7 [place] [address] Care Team Providers Care [place]staff Name Role Phone SuryaZahraa lee Primary Care Provider + [phone] Christian Soria Unavailable Unavailable Reason for Visit * Reason Comments Med Refill Encounter Details Date Type Department Care Team (Late st Contact Info) Description 12/31/2022 Refill [facility] [address] [place] [phone] Christian Soria FNP Anxiety Social History Tobacco [...] Description 12/20/2024 10:30 AM EDT Clinical Support [facility] [address] [place] [address] Mere Rios RN 12/26/2024 9:00 AM EDT Office Visit [facility] [address] [place] [phone] Elis Arce documented as of this encounter Visit Diagnoses Diagnosis Anxiety Anxiety state, unspecified documented in this encounter Additional Health Concerns Assessment Noted Time PHQ-9 Depression Total Score: 0 08/24/19 23 2:33 PM EST documented as of this encounter Care Teams [place]staff Relationship Specialty Start Date End Date Zahraa Roca DO [address] [place] [address] PCP - General Family Medicine 07/25/18 Christian Soria FNP [address] [place] [address] Nurse Practitioner Family Medicine 06/24/23 documented as of this encounter
--- OUTSIDE RECORDS SUMMARY | 2024-11-19 19:13 | XMS_ITS | Encounter Summary ---
Author Organization [employer] Address [address] [facility] 7t [place] [address] Care Team Providers Care Desktop Support Technician Name Role Phone AbelinoZahraa Primary Care Provider + [phone] Christian Soria Unavailable Unavailable Reason for Visit * Reason Comments [employer] Encounter Details Date Type Department Care Team (Latest Contact Info) Description 11/19/2024 2:00 PM EDT Clinical Support [facility] [address] [place] [address] Yanira Payne, RN [address] [place] [address] Anxiety; Chronic left-sided low back pain without sciatica Social History Tobacco Use Types Packs/Day Years [...] as of this encounter Progress Notes * Yanira Payne, HENRIK - 11/19/2024 2:00 PM EDT SUBJECTIVE: Cristobal Enriquez is a 54 y.o. year old male who presents for [employer] [facility] Preferred language for medical information: Colombian Interpreted needed: No Current Outpatient Medications Medication Sig Dispense Refill amitriptyline (Elavil) 10 MG tablet Take 1 tablet (10 mg) by mouth at bedtime. 30 tablet 3 Blood Pressure kit 1 each 2 times daily. 1 kit 0 clonazePAM (KlonoPIN) 1 MG tablet Take 1 tablet (1 mg) by mouth if needed in the morning and at bedtime for anxiety for up to 28 days. 56 tablet 0 gabapentin (Neurontin) 300 MG capsule Take 1 capsule by mouth at bedtime. methadone (Dolophine) 10 MG/5ML solution Take 50 mg by mouth Once per day. methocarbamol (Robaxin) 750 MG tablet Take 1 tablet (750 mg) by mouth if needed in the morning, at noon, and at bedtime for muscle spasms. 60 tablet 3 naloxone (Narcan) 4 mg/0.1 mL nasal spray Administer 1 spray (4 mg) into affected nostril(s) if needed for opioid reversal. May repeat every 2-3 minutes if needed, alternating nostrils, until medicalassistance becomes available. 2 each 3 No current facility-administered medications for this visit. Patient Active Problem List Diagnosis Date Noted Status post left hip replacement 10/16/2024 Severe dental caries 05/03/2024 Excessive attrition of teeth, limited to enamel 05/03/2024 Bruxism (teeth grinding) 05/03/2024 History of alcohol abuse 07/07/2023 Degeneration of intervertebral disc 07/07/2023 History of COVID-19 07/07/2023 Status post right hip replacement 02/28/2023 Opioid dependence on agonist therapy ([facility]) 02/28/2023 History of hepatitis C 02/28/2023 History of tobacco use 02/28/2023 Chronic constipation 07/22/2022 Anemia 07/22/2022 Osteoarthritis 07/22/2022 Spinal stenosis of lumbar region 07/22/2022 Anxiety 04/05/2016 Chronic neck pain 04/05/2016 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 The patient last took the prescribed dose on: 11/19/24 in the AM. 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 Patient is aware he will NOT receive an early refill (medication is due on 11/30). Patient is aware of the directions of the medication and how to take it properly. Patient reports he has used a couple extra pills d/t recent dx of cancer (last month) and having 2 recent procedures for removal of cancer. Patient reports he cannot receive any pain medication d/t prior abuse hx. Patient reports he is has been very stressed regarding cancer dx and reports he is coping alone. Patient also reports he counted his medication prior to coming to [employer] appointment and 2 of the pills dropped under his dresser and he is unable to lift the dresser alone to retrieve the 2 pills. Patient also reports using marijuana daily which he was previously obtaining from a dispensary however he ran into financial trouble and purchased some from his friends and off of the street. Patientreports his recent urine at outside offices tested positive for cocaine (on 11/14/24). Patient was informed by methadone clinic. Patient was educated to obtain marijuana from dispensary again by methadone clinic as it is a safer/hall cleaner option. Patient reports he has returned to obtaining marijuana from dispensary as of 2 weeks ago. Patient reports he speaks to a therapist every other week on for an hour (Pancho Gomez thru [facility]). Patient reports he receives methadone from [facility] in [place] and they recently increased his methadone dose from 40mg to 80mg (3 weeks ago) due to recent cancer dx as well. UTOX should have been positive for BXO d/t clonazepam, RN will send urine out for confirmatory testing. RN will also notify PCP of pill count discrepancy. SIDDHARTHA-7 Total Score: 16 (10/16/2024 3:10 PM) Lab Results Component Value Date POCTHC Positive 11/19/2024 POCDOAUR Negative 11/19/2024 POCDOAUR Negative 11/19/2024 POCDOAUR Negative 11/19/2024 POCDOAUR Negative 11/19/2024 POCDOAUR Positive 11/19/2024 DOAUR Negative 11/19/2024 DOAUR Negative 11/19/2024 POCAMPHETAMI Negative 11/19/2024 POCBARBSCRN Negative 11/19/2024 POCBUPSCRN Negative 11/19/2024 POCMDMAUR Negative 11/19/2024 POCOXYCODONE Negative 11/19/2024 PROPOXUR Negative 11/19/2024 FENTANYLURIN Negative 11/19/2024 ASSESSMENT: Chronic opioid use related to pain Chronic benzo use related to anxiety PLAN: [employer] contract reviewed and signed. A copy was given to the patient and the PCP was made aware. Ana Enriquez will continue taking medications as prescribed. Next [employer] appointment scheduled [x] Future Appointments Date Time Provider Department Center 12/20/2024 10:30 AM Mere Rios RN MEDICINE [facility] 12/26/2024 9:00 AM Elis CHAKRABORTY [facility] Yanira Payne RN documented in this encounter Plan of Treatment Upcoming Encounters Date Type Department Care Team (Late st Contact Info) Description 12/20/2024 10:30 AM EDT Clinical Support [facility] [address] [place] [address] Mere Rios RN 12/26/2024 9:00 AM EDT Office Visit [facility] [address] [place] [address] Elis Arce Scheduled Orders Name Type Priority Associated Diagnoses Orde r Schedule Drug Monitoring, Benzodiazepines, Quantitative, Urine Lab Routine Anxiety Chronic left-sided low back pain without sciatica Ordered: 11/19/2024 documented as of this encounter Procedures Procedure Name Priority Date/Time Associated Diagnosis Comments POCT MARIO-14 URINE DRUG SCREEN Routine 11/19/2024 2:28 PM EDT Anxiety Chronic left-sided low back pain without sciatica documented in this encounter Results * POCT MARIO-14 Urine Drug Screen (11/19/2024 2:28 PM EDT) THC Positive Cocaine Screen, Urine Negative Opiate Screen, Urine Negative Methamphetamine Screen Urine Negative Amphetamine Screen, Urine Negative Benzodiazepines Screen, Urine Negative Barbiturate Screen, Urine Negative Methadone Screen, Urine Positive Buprenophine Screen, Urine Negative TCA, Urine Negative MDMA Urine Negative ng/mL Oxycodone Screen, Urine Negative Phencyclidine (PCP), Urine Negative Propoxyphene, Urine Negative Fentanyl, Urine Negative QC Media Lot # [id number] Lot# Expiration Date Urine Urine specimen obtained by clean catch procedure / Unknown 11/19/2024 2:28 PM EDT Yanira Siddiqi RN - 11/19/2024 2:30 PM EDT UTOX cup Lot#[id number] Exp. 03/13/26 Internal Pass Control Zahraa Roca DO POINT OF CARE TEST ENTER/JOANNA T ORDERABLES Final Result documented in this encounter Visit Diagnoses Diagnosis Anxiety Anxiety state, unspecified Chronic left-sided low back pain without sciatica documented in this encounter Additional Health Concerns Assessment Noted Time PHQ-9 Depression Total Score: 16 10/16/ 025 3:09 PM EDT documented as of this encounter Care Teams Desktop Support Technician Relationship Specialty Start Date End Date Zahraa Roca DO [address] [place] [address] PCP - General Family Medicine 07/25/18 Christian Soria FNP [address] [place] [address] Nurse Practitioner Family Medicine 06/24/23 documented as of this encounter
--- OUTSIDE RECORDS SUMMARY | 2024-11-19 19:13 | XMS_ITS | Encounter Summary ---
Author Organization [employer] Address [address] 7[address] [place] [address] Care Team Providers Care Senior Associate Name Role Phone Zahraa Roca DO Primary Care Provider + [phone] Christian Soria Unavailable Unavailable Encounter Details Date Type Department Care Team (Late st Contact Info) Description 04/17/2024 Telephone [facility] [address] [place], [place] [phone] Lore Vargas DDS [address] [place] [address] Social History Tobacco Use Types Packs/Day Years [...] Description 12/20/2024 10:30 AM EDT Clinical Support [facility] [address] [place] [address] Mere Rios RN 12/26/2024 9:00 AM EDT Office Visit [facility] [address] [place] [address] Elis Arce documented as of this encounter Visit Diagnoses Not on filedocumented in this encounter Additional Health Concerns Assessment Noted Time PHQ-9 Depression Total Score: 0 11/28/19 24 11:23 AM EDT documented as of this encounter Care Teams Senior Associate Relationship Specialty Start Date End Date Zahraa Roca DO [address] [place] [address] PCP - General Family Medicine 1/1/19 Christian Soria FNP [address] [place] [address] Nurse Practitioner Family Medicine 06/24/23 documented as of this encounter
--- OUTSIDE RECORDS SUMMARY | 2024-11-19 19:13 | XMS_ITS | Encounter Summary ---
Author Organization [employer] Address [address] [place] [address] 7t [place] [address] Care Team Providers Care Marketing Assistant Retail Division Name Role Phone Zahraa Roca DO Primary Care Provider + [phone] Christian Soria Unavailable Unavailable Encounter Details Date Type Department Care Team (Late st Contact Info) Description 07/06/2022 Orders Only [facility] [address] [place] [address] Zahraa Andino LPN Social History Tobacco Use [...] Description 12/20/2024 10:30 AM EDT Clinical Support [facility] [address] [place] [address] Mere Rios, HENRIK 12/26/2024 9:00 AM EDT Office Visit [facility] [address] [place] [address] Elis Arce documented as of this encounter Visit Diagnoses Not on filedocumented in this encounter Care Teams Marketing Assistant Retail Division Relationship Specialty Start Date End Date Zahraa Roca DO [address] [place] [address] PCP - General Family Medicine 07/25/18 Christian Soria FNP [address] [place] [address] Nurse Practitioner Family Medicine 06/24/23 documented as of this encounter
--- OUTSIDE RECORDS SUMMARY | 2024-11-19 19:13 | XMS_ITS | Encounter Summary ---
Author Organization [employer] Address [address] [facility] 7t [place] [address] Care Team Providers Care Marketing Manager Health Communications Name Role Phone Zahraa Roca DO Primary Care Provider + [phone] Christian Soria Unavailable Unavailable Reason for Visit * Reason Onset Date Comments PT-1 10/02/2024 Encounter Details Date Type Department Care Team ([facility] st Contact Info) Description 10/02/2024 Telephone [facility] [address] [place], [place] [phone] Zahraa Roca DO [address] [place], [place] [phone] PT-1 Social History Tobacco Use Types Packs/Day [...] status of Pt 1 Contact pt at [phone] * Telephone Encounter - Go Vasquez - 10/02/2024 9:06 AM EDT Patient calling requesting PT1 Home Address verified: Y/N: Yes Provider name or facility name: [facility] Care Resource [address] [address] Escort needed: Y/N: No Do you have a wheelchair: Y/N: No If yes- Manual or electric: Visits: (7 Days x Weekly) documented in this encounter Plan of Treatment Upcoming Encounters Date Type Department Care Team ([facility] st Contact Info) Description 12/20/2024 10:30 AM EDT Clinical Support [facility] [address] [place] [address] Mere Rios, HENRIK 12/26/2024 9:00 AM EDT Office Visit [facility] [address] [place] [address] Elis Arce documented as of this encounter Visit Diagnoses Not on filedocumented in this encounter Additional Health Concerns Assessment Noted Time PHQ-9 Depression Total Score: 0 11/28/19 24 11:23 AM EDT documented as of this encounter Care Teams Marketing Manager Health Communications Relationship Specialty Start Date End Date Zahraa Roca DO [address] [place] [address] PCP - General Family Medicine 07/25/18 Christian Soria FNP [address] [place] [address] Nurse Practitioner Family Medicine 06/24/23 documented as of this encounter
--- OUTSIDE RECORDS SUMMARY | 2024-11-19 19:13 | XMS_ITS | Encounter Summary ---
Author Organization [employer] Address [address] [facility] 7t [place] [address] Care Team Providers Care Box Lidder Name Role Phone Zahraa Roca DO Primary Care Provider + [phone] Christian Soria Unavailable Unavailable Reason for Visit * Reason Onset Date Comments PT1 10/24/2024 Encounter Details Date Type Department Care Team ([facility] st Contact Info) Description 10/24/2024 Telephone [facility] [address] [place], [place] [phone] Zahraa Roca DO [address] [place], [place] [phone] PT1 Social History Tobacco Use Types Packs/Day [...] facility name: May[facility] Facility Address: [address] [facility] [address] [facility] Escort needed: Y/N: No Do you have a wheelchair: Y/N: No If yes- Manual or electric: no Visits:3x a month for 1 year 2.)Patient calling requesting PT1 Home Address verified: Y/N: Yes Provider name or facility name: Dr latonya Christine Facility Address: [address] [facility] [address] Escort needed: Y/N: No Visits: 3x a month for 1 year 3.) Patient calling requesting PT1 Home Address verified: Y/N: Yes Provider name or facility name: Everton Lawton MD Facility Address: [address], [place] [address] Escort needed: Y/N: No Visits: 3 x a month for 1 year 4.) Patient calling requesting PT1 Home Address verified: Y/N: Yes Provider name or facility name: PCP and dental appt Facility Address: [address] [facility] [address] Escort needed: Y/N: No Visits: 4x a month for 1 year documented in this encounter Plan of Treatment Upcoming Encounters Date Type Department Care Team (Late st Contact Info) Description 12/20/2024 10:30 AM EDT Clinical Support [facility] [address] [place] [address] Mere Rios RN 12/26/2024 9:00 AM EDT Office Visit [facility] [address] [place] [address] Elis Arce documented as of this encounter Visit Diagnoses Not on filedocumented in this encounter Additional Health Concerns Assessment Noted Time PHQ-9 Depression Total Score: 16 10/16/ 025 3:09 PM EDT documented as of this encounter Care Teams Box Lidder Relationship Specialty Start Date End Date Zahraa Roca DO [address] [place] [phone] PCP - General Family Medicine 07/25/18 Christian Soria FNP [address] [place] [address] Nurse Practitioner Family Medicine 06/24/23 documented as of this encounter
--- OUTSIDE RECORDS SUMMARY | 2024-11-19 19:13 | XMS_ITS | Encounter Summary ---
Author Organization [employer] Address [address] [facility] [address] 7t [place] [address] Care Team Providers Care Tubular Splitting Machine Tender Name Role Phone YudiZahraa barahona Primary Care Provider + [phone] Christian Soria Unavailable Unavailable Encounter Details Date Type Department Care Team (Latest Contact Info) Description 11/19/2024 Travel Social History Tobacco Use Types Packs/Day [...] EDT Clinical Support [facility] [address] [place] [address] Mere Rios RN 12/26/2024 9:00 AM EDT Office Visit [facility] [address] [place] [address] Elis Arce documented as of this encounter Visit Diagnoses Not on filedocumented in this encounter Additional Health Concerns Assessment Noted Time PHQ-9 Depression Total Score: 16 025 3:09 PM EDT documented as of this encounter Care Teams Tubular Splitting Machine Tender Relationship Specialty Start Date End Date Zahraa Roca DO [address] [place] [address] PCP - General Family Medicine 07/25/18 Christian Soria FNP [address] [place] [address] Nurse Practitioner Family Medicine 06/24/23 documented as of this encounter
--- OUTSIDE RECORDS SUMMARY | 2024-11-19 19:13 | XMS_ITS | Encounter Summary ---
Author Organization [employer] Address [address] [address] [facility] 7t [place] [address] Care Team Providers Care Mass Communications Instructor Name Role Phone Zahraa Roca DO Primary Care Provider + [phone] Christian Soria Unavailable Unavailable Encounter Details Date Type Department Care Team (Late st Contact Info) Description 10/10/2024 Orders Only [facility] [address] [place], [place] [phone] Zahraa Roca DO [address] [place] [address] Social History Tobacco Use Types Packs/Day Years [...] Description 12/20/2024 10:30 AM EDT Clinical Support [facility] [address] [place] [address] Mere Rios RN 12/26/2024 9:00 AM EDT Office Visit [facility] [address] [place] [address] Elis Arce documented as of this encounter Visit Diagnoses Not on filedocumented in this encounter Additional Health Concerns Assessment Noted Time PHQ-9 Depression Total Score: 0 11/28/19 24 11:23 AM EDT documented as of this encounter Care Teams Mass Communications Instructor Relationship Specialty Start Date End Date Zahraa Roca DO [address] [place] [address] PCP - General Family Medicine 07/25/18 Christian Soria FNP [address] [place] [address] Nurse Practitioner Family Medicine 06/24/23 documented as of this encounter
--- OUTSIDE RECORDS SUMMARY | 2024-11-19 19:13 | XMS_ITS | Encounter Summary ---
Author Organization [employer] Address [address] [place] [address] 7t [place] [address] Care Team Providers Care Group Cio Name Role Phone Zahraa Roca DO Primary Care Provider + [phone] Christian Soria Unavailable Unavailable Reason for Visit * Reason Onset Date Comments Med Refill 12/31/2022 Encounter Details Date Type Department Care Team (Late st Contact Info) Description 12/31/2022 Telephone [facility] [address] [place], [place] [phone] Zahraa Roca DO [address] [place], [place] [phone] Med Refill Social History Tobacco Use Types [...] Description 12/20/2024 10:30 AM EDT Clinical Support [facility] [address] [place] [address] Mere Rios RN 12/26/2024 9:00 AM EDT Office Visit [facility] [address] [place] [address] Elis Arce documented as of this encounter Visit Diagnoses Not on filedocumented in this encounter Additional Health Concerns Assessment Noted Time PHQ-9 Depression Total Score: 0 08/24/19 23 2:33 PM EST documented as of this encounter Care Teams Group Cio Relationship Specialty Start Date End Date Zahraa Roca DO [address] [place] [address] PCP - General Family Medicine 07/25/18 Christian Soria FNP [address] [place] [address] Nurse Practitioner Family Medicine 06/24/23 documented as of this encounter
--- OUTSIDE RECORDS SUMMARY | 2024-11-19 19:13 | XMS_ITS | Encounter Summary ---
Author Organization [employer] Address [address] [facility] [address] [place] [address] Care Team Providers Care Principal Accounts Clerk Name Role Phone YudiZahraa barahona Primary Care Provider + [phone] Christian Soria Unavailable Unavailable Encounter Details Date Type Department Care Team (Late st Contact Info) Description 11/03/2023 Orders Only [facility] MEDICINE [address] [place], [place] [phone] ProviderHiral MD Social History Tobacco Use Types [...] Description 12/20/2024 10:30 AM EDT Clinical Support [facility] MEDICINE [address] [place] [address] Mere Rios RN 12/26/2024 9:00 AM EDT Office Visit [facility] ADULT DENTAL [address] [place] [address] Elis Arce documented as of this encounter [...] documented as of this encounter Care Teams Principal Accounts Clerk Relationship Specialty Start Date End Date Zahraa Roca DO [address] [place] [address] PCP - General Family Medicine 07/25/18 Christian Soria FNP [address] [place] [address] Nurse Practitioner Family Medicine 06/24/23 documented as of this encounter
[2024-11-26 10:39] LABS: Aminoclonazepam, GCMS Urine 229; Lorazepam GCMS Urine NEGATIVE; Nordiazepam, GCMS Urine NEGATIVE; Oxazepam, GCMS Urine NEGATIVE
[2024-11-26 10:40] LABS: Alphahydroxymidazolam,GCMS Ur NEGATIVE; Alphahydroxytriazolam, GCMS Ur NEGATIVE; Alprazolam, GCMS Urine NEGATIVE; Flurazepam Metabolite,GCMS Ur NEGATIVE; Temazepam, GCMS Urine NEGATIVE
== END 2024-11-19 17:30 | disposition home or self-care (01) ==
LOC: HO.HHCLNP 17:29
PROVIDERS: Visit Provider Family Medicine
DX: F41.9 Anxiety disorder, unspecified (principal); M54.50 Low back pain, unspecified; G89.29 Other chronic pain
CPT/HCPCS: 80346

== ENCOUNTER 2024-11-20 13:53 | Outpatient (AMB) | payer MEDICARE, MEDICAID, SELFPAY ==
--- NOTE | 2024-11-20 13:58 | A.OFFVIS_ITS ---
Intake Visit Reasons: follow up US s/p gen sx ref Intake Note: Patient presents for follow up. Patient was diagnosed with skin cancer, states it is taken care of. Accompanied by: Self / Same As Patient Allergies No Known Allergies Allergy (Verified 11/20/24 13:59) HPI HPI follow up US s/p gen sx ref: Details: The patient is a 54-year-old male presenting with concerns of varicose veins and venous insufficiency predominantly affecting the left leg but also involving the right. He reports visible veins with fluctuating prominence, associated with oc casional swelling and discomfort exacerbated by prolonged physical activity. His venous issues are likely exacerbated by a past history of heavy lifting during occupational duties, where he managed to carry significant weights over shoulders for extensive periods. 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 Upon discussion with him he reports that the left is worse than the right at the current time. [facility] Medical History Pneumonia Low BP Rash Family history of pseudocholinesterase deficiency Alcohol dependence in remission Hx of substance abuse Chronic right hip pain Degenerative disc disease Chronic back pain History of hepatitis C Chronic anemia Anxiety Surgical History History of left hip replacement History of total right hip arthroplasty Hx of colonoscopy History of surgery History of right inguinal hernia repair History of laminectomy Family History Mother Osteoarthritis Social History Household Members: None Housing: Apartment Housing Other:: second floor Are you a primary medicare insurance specialist to a significant other at home: No Do you presently have visiting nurse or other home services: No Alcohol intake: never Comment: Pt. refused supervision/ steady walking with crutches. Patient Tobacco Use Status: Current everyday Tobacco user Tobacco use type: Cigarette Cigarettes Per Day: 3 Years Smoked: 40 Substance Use Type: Amphetamines and Crack/Cocaine service: No Current occupational status: disabled Review of Systems Const Reports as per HPI ENT Reports no additional complaints Card Denies chest pain, Denies chest pain at rest and Denies chest pain with activity Resp Denies chest congestion and Denies cough GI Reports no additional complaints Musc Details: pain over varicosities, aching of lower extremities, swelling, cramping, heaviness and tiredness, itching Denies abnormal gait Skin/Breast Reports pruritus and Denies wounds Neuro Reports no additional complaints and Denies abnormal gait Psych Denies no additional complaints Physical Exam Const General: cooperative, healthy appearing and comfortable Orientation/consciousness: oriented to person, oriented to place and oriented to time Neck Carotids: no bruits Chest Chest palpation & inspection: normal inspection of the chest and normal palpation of entire chest wall Resp Effort & Inspection: normal respiratory effort and able to speak in complete sentences Cardio Rate: regular rate Heart sounds: S1 normal heart sound present and S2 normal heart sound present Peripheral pulses: Peripheral pulses 2+ throughout GI Inspection: Yes normal to inspection Skin Other: +2 edema, large rope-like varicosities greater than 4 mm CEAP Classification C4 - skin color changes Ep - Etiology Primary As - superficial veins P - reflux General skin exam: dry skin Neuro General: oriented to person, oriented to place and oriented to time Extrem Right lower extremity: full ROM, normal capillary refill and edema Left lower extremity: full ROM, normal capillary refill and edema Psych Mental Status: mental status grossly normal Results Reviewed Results Reviewed: Brief summary of venous insufficiency testing is as follows: right great saphenous vein: Positive right small saphenous vein: negative right accessory vein: none present left great saphenous vein: Positive left small saphenous vein: negative left accessory vein: none present Please note there is no evidence of any venous aneurysms or significant tortuosity Assessment & Plan Assessment & Plan (1) Varicose veins of left lower extremity with inflammation: Code(s): I83.12 - Varicose veins of left lower extremity with inflammation Category: Medical Plan: This patient has varicose veins with inflammation. They continue to be a source of discomfort for the patient. The patient has tried conservative treatment with compression, leg elevation and exercise program for over 3 months time. They have been compliant with all treatment. This has provided minimal relief for the patient. I do not anticipate this course of treatment will alter the underlying etiology. The patient has been scheduled for lower extremity venous treatment inclusive of --- left great saphenous vein Cyanoacralate ablation. Risks, benefits, and complications of this procedure has been discussed in detail with the patient including but not limited to bleeding, infection, and the development of a DVT. The patient has demonstrated a clear understanding and has consented. We will schedule the patient as soon as possible. Thank you for allowing us to participate in this patient's care. If there are any questions or concerns please do not hesitate to contact us. Coding Level of Care Code Est Pt Level 4 (93553) Diagnoses Varicose veins of left lower extremity with inflammation I83.12
--- OUTSIDE RECORDS SUMMARY | 2024-11-20 16:02 | XMS_ITS | Encounter Summary ---
Author Organization [email or web address] Address [address] [place] [address] 7 [place] [address] Care Team Providers Care School Psychologist Name Role Phone Zahraa Roca DO Primary Care Provider + [phone] Christian Soria Unavailable Unavailable Reason for Visit * Reason Onset Date Comments Med Refill 12/31/2022 Encounter Details Date Type Department Care Team (Late st Contact Info) Description 12/31/2022 Telephone [facility] MEDICINE [address] [place], [place] [phone] Zahraa Roca DO [address] [place], [place] [phone] Med Refill Social History Tobacco Use Types [...] Description 12/20/2024 10:30 AM EDT Clinical Support [facility] MEDICINE [address] [place] [address] Mere Rios RN 12/26/2024 9:00 AM EDT Office Visit [facility] ADULT DENTAL [address] [place] [address] Elis Arce documented as of this encounter Visit Diagnoses Not on filedocumented in this encounter Additional Health Concerns Assessment Noted Time PHQ-9 Depression Total Score: 0 08/24/19 23 2:33 PM EST documented as of this encounter Care Teams School Psychologist Relationship Specialty Start Date End Date Zahraa Roca DO [address] [place] [address] PCP - General Family Medicine 07/25/18 Christian Soria FNP [address] [place] [address] Nurse Practitioner Family Medicine 06/24/23 documented as of this encounter
--- OUTSIDE RECORDS SUMMARY | 2024-11-20 16:02 | XMS_ITS | Encounter Summary ---
Author Organization [employer] Address [address] [facility] [address] [place] [address] Care Team Providers Care Thai Masseur Name Role Phone YudiZahraa barahona Primary Care Provider + [phone] Christian Soria Unavailable Unavailable Encounter Details Date Type Department Care Team (Late st Contact Info) Description 11/03/2023 Orders Only [facility] MEDICINE [address] [place], [place] [phone] ProviderHiral MD Social History Tobacco Use Types [...] [facility] [address] [place] [address] Mere Rios RN 12/26/2024 9:00 AM EDT Office Visit [facility] ADULT DENTAL [address] [place] [address] Elis Arce documented as of this encounter [...] documented as of this encounter Care Teams Thai Masseur Relationship Specialty Start Date End Date Zahraa Roca DO [address] [place] [address] PCP - General Family Medicine 07/25/18 Christian Soria FNP [address] [place] [address] Nurse Practitioner Family Medicine 06/24/23 documented as of this encounter
--- OUTSIDE RECORDS SUMMARY | 2024-11-20 16:02 | XMS_ITS | Encounter Summary ---
Author Organization [employer] Address [address] [facility] 7t [place] [address] Care Team Providers Care Dairy Hand Name Role Phone Zahraa Roca DO Primary Care Provider + [phone] Christian Soria Unavailable Unavailable Reason for Visit * Reason Onset Date Comments PT-1 04/17/2024 Encounter Details Date Type Department Care Team ([facility] st Contact Info) Description 04/17/2024 Telephone [facility] MEDICINE [address] [place], [place] [phone] Zahraa Roca DO [address] [place], [place] [phone] PT-1 Social History Tobacco Use Types Packs/Day [...] Y/N: Yes Provider name or facility name: [facility] Facility Address: [address] [place] [address] Escort needed: Y/N: No Do you have a wheelchair: Y/N: No If yes- Manual or electric: N/A Visits: Twice a month documented in this encounter Plan of Treatment Upcoming Encounters Date Type Department Care Team (Late st Contact Info) Description 12/20/2024 10:30 AM EDT Clinical Support [facility] MEDICINE [address] [place] [address] Mere Rios RN 12/26/2024 9:00 AM EDT Office Visit [facility] ADULT DENTAL [address] [place] [address] Elis Arce documented as of this encounter Visit Diagnoses Not on filedocumented in this encounter Additional Health Concerns Assessment Noted Time PHQ-9 Depression Total Score: 0 11/28/19 24 11:23 AM EDT documented as of this encounter Care Teams Dairy Hand Relationship Specialty Start Date End Date Zahraa Roca DO [address] [place] [address] PCP - General Family Medicine 07/25/18 Christian Soria FNP [address] [place] [address] Nurse Practitioner Family Medicine 06/24/23 documented as of this encounter
--- OUTSIDE RECORDS SUMMARY | 2024-11-20 16:02 | XMS_ITS | Encounter Summary ---
Author Organization [employer] Address 75 [facility] 7t [place] [address] Care Team Providers Care Inside Finisher Name Role Phone AbelinoZahraa Primary Care Provider + [phone] Christian Soria Unavailable Unavailable Reason for Visit * Reason Comments CUSTOMER SERVICE TECHNICIAN RV Encounter Details Date Type Department Care Team (Latest Contact Info) Description 11/19/2024 2:00 PM EDT Clinical Support [facility] MEDICINE [address] [place] [address] Yanira Payne, RN [address] [place] [address] Anxiety; Chronic left-sided low back pain without [...] y.o. 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 The patient last took the prescribed dose on: 11/19/24 in the AM. 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 Patient reports he has returned to obtaining marijuana from dispensary as of 2 weeks ago. Patient reports he speaks to a therapist every other week on for an hour (Pancho Gomez thru [facility]). Patient reports he receives methadone from [facility] in [place] and they recently increased his methadone dose [...] Chronic benzo use related to anxiety PLAN: CUSTOMER SERVICE TECHNICIAN contract reviewed and signed. A copy was given to the patient and the PCP was made aware. Ana Enriquez will continue taking medications as prescribed. Next CUSTOMER SERVICE TECHNICIAN appointment scheduled [x] Future Appointments Date Time Provider Department Center 12/20/2024 10:30 AM Mere Rios RN MEDICINE [facility] 12/26/2024 9:00 AM Elis CHAKRABORTY [facility] Yanira Payne RN documented in this encounter Plan of Treatment Upcoming Encounters Date Type Department Care Team (Late st Contact Info) Description 12/20/2024 10:30 AM EDT Clinical Support [facility] MEDICINE [address] [place] [address] Mere Rios RN 12/26/2024 9:00 AM EDT Office Visit [facility] ADULT DENTAL [address] [place] [address] Elis Arce Scheduled Orders Name Type Priority [...] Fentanyl, Urine Negative QC Media Lot # [id number] Lot# Expiration Date Urine Urine specimen obtained by clean catch procedure / Unknown 11/19/2024 2:28 PM EDT Yanira Siddiqi RN - 11/19/2024 2:30 PM EDT UTOX cup Lot#[id number] Exp. 03/13/26 Internal Pass Control Zahraa Roca DO POINT OF CARE TEST ENTER/JOANNA T ORDERABLES Final Result documented in this encounter Visit Diagnoses Diagnosis Anxiety Anxiety state, unspecified Chronic left-sided low back pain without sciatica documented in this encounter Additional Health Concerns Assessment Noted Time PHQ-9 Depression Total Score: 16 10/16/ 025 3:09 PM EDT documented as of this encounter Care Teams Inside Finisher Relationship Specialty Start Date End Date Zahraa Roca DO [address] [place] [address] PCP - General Family Medicine 07/25/18 Christian Soria FNP [address] [place] [address] Nurse Practitioner Family Medicine 06/24/23 documented as of this encounter
--- OUTSIDE RECORDS SUMMARY | 2024-11-20 16:02 | XMS_ITS | Encounter Summary ---
Author Organization [employer] Address [address] [place] [address] 7 [place] [address] Care Team Providers Care Interior Design Professional Name Role Phone SuryaZahraa lee Primary Care Provider + [phone] Christian Soria Unavailable Unavailable Reason for Visit * Reason Comments Med Refill Encounter Details Date Type Department Care Team (Late st Contact Info) Description 12/31/2022 Refill [facility] MEDICINE [address] [place] [address] Christian Soria FNP Anxiety Social History Tobacco [...] Description 12/20/2024 10:30 AM EDT Clinical Support [facility] MEDICINE [address] [place] [address] Mere Rios RN 12/26/2024 9:00 AM EDT Office Visit [facility] ADULT DENTAL [address] [place] [address] Elis Arce documented as of this encounter Visit Diagnoses Diagnosis Anxiety Anxiety state, unspecified documented in this encounter Additional Health Concerns Assessment Noted Time PHQ-9 Depression Total Score: 0 08/24/19 23 2:33 PM EST documented as of this encounter Care Teams Interior Design Professional Relationship Specialty Start Date End Date Zahraa Roca DO [address] [place] [address] PCP - General Family Medicine 07/25/18 Christian Soria FNP [address] [place] [address] Nurse Practitioner Family Medicine 06/24/23 documented as of this encounter
--- OUTSIDE RECORDS SUMMARY | 2024-11-20 16:02 | XMS_ITS | Encounter Summary ---
Author Organization [employer] Address [address] [facility] 7t [place] [address] Care Team Providers Care Film Composer Name Role Phone Zahraa Roca DO Primary Care Provider + [phone] Christian Soria Unavailable Unavailable Reason for Visit * Reason Onset Date Comments PT1 10/24/2024 Encounter Details Date Type Department Care Team ([facility] st Contact Info) Description 10/24/2024 Telephone [facility] MEDICINE [address] [place], [place] [phone] Zahraa Roca DO [address] [place], [place] [phone] PT1 Social History Tobacco Use Types Packs/Day [...] facility name: [facility] Facility Address: [address] [facility] Escort needed: Y/N: No Do you have a wheelchair: Y/N: No If yes- Manual or electric: no Visits:3x a month for 1 year 2.)Patient calling requesting PT1 Home Address verified: Y/N: Yes Provider name or facility name: Dr latonya Christine Facility Address: [address] [facility] [address] Escort needed: Y/N: No Visits: 3x a month for 1 year 3.) Patient calling requesting PT1 Home Address verified: Y/N: Yes Provider name or facility name: Everton Lawton MD Facility Address: [address], [place] [address] Escort needed: Y/N: No Visits: 3 x a month for 1 year 4.) Patient calling requesting PT1 Home Address verified: Y/N: Yes Provider name or facility name: PCP and dental appt Facility Address: [address] [facility] [address] Escort needed: Y/N: No Visits: 4x a month for 1 year documented in this encounter Plan of Treatment Upcoming Encounters Date Type Department Care Team (Late st Contact Info) Description 12/20/2024 10:30 AM EDT Clinical Support [facility] MEDICINE [address] [place] [address] Mere Rios RN 12/26/2024 9:00 AM EDT Office Visit [facility] ADULT DENTAL [address] [place] [address] Elis Arce documented as of this encounter Visit Diagnoses Not on filedocumented in this encounter Additional Health Concerns Assessment Noted Time PHQ-9 Depression Total Score: 16 10/16/ 025 3:09 PM EDT documented as of this encounter Care Teams Film Composer Relationship Specialty Start Date End Date Zahraa Roca DO [address] [place] [address] PCP - General Family Medicine 07/25/18 Christian Soria FNP [address] [place] [address] Nurse Practitioner Family Medicine 06/24/23 documented as of this encounter
--- OUTSIDE RECORDS SUMMARY | 2024-11-20 16:02 | XMS_ITS | Encounter Summary ---
Author Organization [employer] Address [address] [place] [address] 7t [place] [address] Care Team Providers Care Criminal Researcher Name Role Phone Zahraa Roca DO Primary Care Provider + [phone] Christian Soria Unavailable Unavailable Encounter Details Date Type Department Care Team (Late st Contact Info) Description 08/12/2022 Orders Only [facility] [address] [place] [address] Zahraa Andino LPN Social History Tobacco Use [...] 12/20/2024 10:30 AM EDT Clinical Support [facility] MEDICINE [address] [place] [address] Mere Rios RN 12/26/2024 9:00 AM EDT Office Visit [facility] ADULT DENTAL [address] [place] [address] Elis Arce documented as of this encounter Visit Diagnoses Not on filedocumented in this encounter Care Teams Criminal Researcher Relationship Specialty Start Date End Date Zahraa Roca DO [address] [place] [address] PCP - General Family Medicine 07/25/18 Christian Sorai FNP [address] [place] [address] Nurse Practitioner Family Medicine 06/24/23 documented as of this encounter
--- OUTSIDE RECORDS SUMMARY | 2024-11-20 16:02 | XMS_ITS | Encounter Summary ---
Author Organization [employer] Address [address] [facility] [facility] [address] 7t [place] [address] Care Team Providers Care Federal Air Marshal Name Role Phone Zahraa Roca DO Primary Care Provider + [phone] Christian Soria Unavailable Unavailable Encounter Details Date Type Department Care Team (Late st Contact Info) Description 04/17/2024 Telephone [facility] ADULT DENTAL 230 [place], [place] [phone] Lore Vargas DDS [address] [place] [address] Social History Tobacco Use Types Packs/Day Years [...] Description 12/20/2024 10:30 AM EDT Clinical Support [facility] MEDICINE [address] [place] [address] Mere Rios RN 12/26/2024 9:00 AM EDT Office Visit [facility] ADULT DENTAL [address] [place] [address] Elis Arce documented as of this encounter Visit Diagnoses Not on filedocumented in this encounter Additional Health Concerns Assessment Noted Time PHQ-9 Depression Total Score: 0 11/28/19 24 11:23 AM EDT documented as of this encounter Care Teams Federal Air Marshal Relationship Specialty Start Date End Date Zahraa Roca DO [address] [place] [address] PCP - General Family Medicine 1/1/19 Christian Soria FNP [address] [place] [address] Nurse Practitioner Family Medicine 06/24/23 documented as of this encounter
--- OUTSIDE RECORDS SUMMARY | 2024-11-20 16:02 | XMS_ITS | Clinical Summary ---
Author Organization [employer] Address [address] [facility] [address] [place] [address] Care Team Providers Care Buffer Chrome Name Role Phone AbelinoZahraa Primary Care Provider + [phone] Christian Soria Unavailable Unavailable Allergies No known [...] any issues or concerns, he should contact [facility]. All his questions were answered. He agrees [...] Description 11/19/2024 2:00 PM EDT Clinical Support [address] [address] Yanira Payne, RN Anxiety; Chronic left-sided low back pain without sciatica 11/19/2024 Travel 11/13/[address] [address] Zahraa Roca DO Appointment Request 11/01/[address] [address] Zahraa Roca DO Medication Question 10/30/[address] [address] Zahraa Roca DO Medication Question; Med Refill 10/29/[address] [address] Zahraa Roca DO Anxiety 10/24/2024 Patient Outreach [address] [address] Zahraa Roca DO Care Coordination (CHW outreach for SDOH PT-1 and food needs-referral completed /) 10/24/[address] [address] Zahraa Roca DO PT1 10/19/2024 Orders Only GENERIC EXTERNAL DATA DEPARTMENT Provider, Generic External Data 10/18/2024 Refill [facility] [place] [address] Zahraa Roca, 10/18/2024 Refill [facility] [place] [address] Zahraa Roca, 10/16/2024 11:45 AM EDT Office Visit [facility] [place] [address] Zahraa Roca, Chronic bilateral low back pain, unspecified whether sciatica present (Primary Dx) 10/16/2024 Travel 10/15/2024 Orders Only GENERIC EXTERNAL DATA DEPARTMENT Provider, Generic External Data 10/11/2024 10:30 AM EDT Clinical Support [facility] [place] [address] Mere Rios RN Chronic left-sided low back pain without sciatica (Primary Dx) 10/11/2024 Orders Only [facility] [place] [address] Zahraa Roca, 10/11/2024 Refill [facility] [place] [address] Mere Rios RN Anxiety 10/11/2024 Travel 10/10/2024 Orders Only [facility] [place] [address] Zahraa Roca DO 10/09/2024 Patient Outreach [facility] [place] [address] Zahraa Roca DO Care Coordination (CHW outreach for SDOH PT-1 and food needs-referral completed /) 10/08/2024 Patient Outreach [facility] [place] [address] Zahraa Roca DO Transition Of Care (Tcm) (HDF- Rescheduled HDF appt) 10/08/2024 Patient Outreach [facility] [place] [address] Zahraa Roca DO Transition Of Care (Tcm) (HDF- scheduled and SDOH screening negative and Tobacco screening positive) 10/07/2024 Telephone [facility] [address] [place] [address] Renate Solorzano MD 10/05/2024 9:00 AM EDT Office Visit [facility] W[facility] [address] [place] [address] Marcos Mckeon MD Chronic left-sided low back pain without sciatica (Primary Dx); Right buttock pain; Elevated blood pressure reading in office without diagnosis of hypertension 10/05/2024 Telephone [facility] [address] [place] [address] Marcos Mckeon MD 10/05/2024 Population Health Risk Score [facility] () [address] [phone] Provider, Population Health Generic 10/05/2024 Travel 10/04/[address] [address] Zahraa Roca DO Nurse Triage 10/03/[address] [address] Zahraa Roca DO Appointment Request 10/02/2024 Patient Outreach [address] [address] Zahraa Roca DO Care Coordination (CHW outreach for SDOH PT-1 - LVM ) 10/02/[address] [address] Zahraa Roca DO PT-1 10/01/2024 Patient Outreach [address] [address] Zahraa Roca DO Care Coordination (CHW outreach for SDOH PT-1 and food needs-referral completed /) 10/01/[address] [address] Zahraa Roca DO PT-1 (/) 09/21/[address] [address] Zahraa Roca DO Recall Letter (Recall Letter sent 09/21/24.) 09/20/2024 Telephone [facility] [place] [address] Mere Rios, HENRIK UTOX confirmation Neg BZO 09/19/2024 Orders Only GENERIC EXTERNAL DATA DEPARTMENT Provider, Generic External Data 09/17/2024 Patient Outreach [facility] [place] [address] Zahraa Roca DO Transition Of Care (Tcm) 09/12/2024 9:30 AM EST Clinical Support [facility] [place] [address] Mere Rios, HENRIK Anxiety (Primary Dx); Opioid dependence on agonist therapy (CMS/HCC) 09/12/2024 Telephone [facility] [place] [address] Zahraa Roca DO Patient message 09/12/2024 [address] [place] [address] Mere Rios, HENRIK LINOTYPIST Initial completed today; UTOX Neg BZO. sent out 09/12/2024 Refill [facility] [place] [address] Mere Rios, HENRIK Anxiety 09/12/2024 Travel 08/29/2024 Telephone [facility] [place] [address] Mere Rios, HENRIK NCNS LINOTYPIST Initial X1 08/29/[address] [address] Mere Rios, HENRIK Recommend LINOTYPIST Tier 1 from Last 3 Months Immunizations [...] Description 12/20/2024 10:30 AM EDT Clinical Support [facility] MEDICINE [address] [place] [address] Mere Rios RN 12/26/2024 9:00 AM EDT Office Visit [facility] ADULT DENTAL [address] [place] [address] Elis Arce Health Maintenance Due Date Last [...] AM EST Opioid dependence on agonist therapy ([facility]/HCC) DRUG MONITORING, BENZODIAZEPINES, QUANTITATIVE, URINE Routine [...] Fentanyl, Urine Negative QC Media Lot # [id number] Lot# Expiration Date Urine Urine specimen obtained by clean catch procedure / Unknown 11/19/2024 2:28 PM EDT Yanira Siddiqi, HENRIK - 11/19/2024 2:30 PM EDT UTOX cup Lot#[id number] Exp. 03/13/26 Internal Pass Control Zahraa Roca DO POINT OF CARE TEST ENTER/JOANNA T ORDERABLES Final Result * Gross and Microscopic Level 4 (10/19/2024 11:50 AM EDT) 10/19/2024 11:5 0 AM EDT 10/19/2024 1:05 PM EDT Rey [facility] - 10/22/2024 2:46 PM EDT ----- ------- Name: Cristobal Enriquez ? Age/Sex: 54/M ? : 1970 Unit#: [id number] ?? Attend Dr: Sergei Christine MD ?Re10/19/24 ?Status: DEP SDC ? Location: HO.SSS ?Disch: ? ----- ------- SPEC : [id number] ? RECD: 10/19/24 ? STATUS: ??SOUT ? REQ NUM: [id number] ? NGA: 10/19/24-1150 ? SUBM DR: Sergei [...] cassettes A2 through A8, 2 pieces each. ??([facility]) Copies To: ?? Zahraa Roca DO ?? [facility] ?? [address] ?? [place] [address] ?? [phone] ?? Sergei Christine MD ?? [facility] ?? [address] ?? [place] [address] ?? [phone] ? CONTINUED ON NEXT PAGE ----- ------- Name: Cristobal Enriquez ? Age/Sex: 54/M ? : 1970 Unit#: [id number] ?? Attend Dr: Sergei Christine MD ?Re10/19/24 ?Status: DEP SDC ? Location: HO.SSS ?Disch: ? ----- ------- SPEC : [id number] ? RECD: 10/19/24-7125 ? STATUS: ??SOUT ? REQ NUM: [id number] ? NGA: 10/19/24-1150 ? SUBM DR: Seregi Christine MD ? ENTERED: ??10/19/24-1321 ?SP TYPE: Surgical ? OTHR DR: Zahraa Roca DO ? ORDERED: ??Gross Micro L4 ? Copies To: ??(Continued) ?? [email or web address] ----- ------- Signed (signature on file) Mai Astudillo MD 10/22/24 1446 ? ----- ------- ? END OF REPORT ? us Generic External Data Provider LAB CYTOLOGY BRIAN SANCHEZ Final Result Performing Organization Address City/State/[facility] Co de Phone Number [facility] [address] [place] [phone] * (ABNORMAL) Drug Monitoring, Panel 1, Screen, Urine (10/19/2024 9:30 AM EDT) Pathologist [facility] Opiate Screen Urine Not Detected Not Detect [facility] Comment:Opiate cut-off is 30 0 ng/mL.Positive results are unconfirmed and should not be used fornon-medical purposes. Barbiturates, Urine Not Detected Not Detect [facility] Comment:Barbiturate cut-off is 200 ng/mL.Positive results are unconfirmed and should not be used fornon-medical purposes. Phencyclidine Screen Urine Not Detected Not Detect [facility] Comment:Phencyclidine cut-of f is 25 ng/mL.Positive results are unconfirmed and should not be used fornon-medical purposes. Amphetamine Screen Urine Not Detected Not Detect [facility] Comment:Amphetamine cut-off is 1000 ng/mL.Positive results are unconfirmed and should not be used fornon-medical purposes. Benzodiazepines Screen Urine Not Detected Not Detect [facility] Comment:Benzodiazepine cut-o ff is 200 ng/mL.Positive results are unconfirmed and should not be used fornon-medical purposes. Cocaine Screen Urine POSITIVE(A) Not Detect [facility] Comment:Cocaine cut-off is 3 00 ng/mL.Positive results are unconfirmed and should not be used fornon-medical purposes. Cannabinoid Screen Urine POSITIVE(A) Not Detect [facility] Comment:Cannabinoid cut-off is 50 ng/mL.Positive results are unconfirmed and should not be used fornon-medical purposes. Methadone Screen, Urine Positive(A) Not Detect ng/mL [facility] Comment:Methadone cut-off is 300 ng/mL.Positive results are unconfirmed and should not be used fornon-medical purposes. FENTANYL URINE Not Detected Not Detect [facility] Comment:Fentanyl cut-off is 1 ng/mL.Positive results are unconfirmed and should not be used fornon-medical purposes. Oxycodone Urine Screen Not Detected Not Detect ng/mL [facility] Comment:Oxycodone cut-off is 100 ng/mL.Positive results are unconfirmed and should not be used fornon-medical purposes. Buprenorphine Screen Not Detected Not Detect ng/mL [facility] Comment:Buprenorphine cut-of f is 5 ng/mL.Positive results are unconfirmed and should not be used fornon-medical purposes. 10/19/2024 9:30 AM EDT 10/19/2024 9:48 AM EDT us Generic External Data Provider LAB URINE ORDERAB LES Final Result Performing Organization Address City/State/[facility] Co de Phone Number [facility] [address] [place] [phone] * XR Thoracic Spine 2 Views (10/16/2024 1:36 PM EDT) Anatomical Region Laterality Modality Spine, T-spine Radiographic Nara ging 10/16/2024 1:36 PM EDT Narrative 10/16/2024 2:21 PM EDT ?[facility] ?[address] ?[place] [address] ?XRay Report ? Signed ? Patient: Szydlo,Cristobal J ?MR#: [id number] ?? 54 ? : 1970 ?Acct:[id number] ? Age/Sex: 54 / M ?ADM Date: 10/16/24 ? Loc: HO.HHCX ? Attending Dr: Zahraa Roca DO ? Ordering Physician: Zahraa Roca DO ?? Date of Service: 10/16/24 ?? Procedure(s): XR thoracic spine 2V ?? Accession Number(s): [id number] ? cc: Zahraa Roca DO ? EXAMINATION: [...] DD/ 1336 ? TD/TT: 10/16/24 1400 ? Sprinkler Installer: ? Procedure Note Denys Ervin - 10/16/[address] [address] XRay Report Signed Patient: Cristobal Enriquez JMR#: [id number] 54 : 1970Acct:[id number] Age/Sex: 54 / MADM Date: 10/16/24 Loc: HO.HHCX Attending Dr: Zahraa Roca DO Ordering Physician: Zahraa Roca DO Date of Service: 10/16/24 Procedure(s): XR thoracic spine 2V Accession Number(s): [id number] cc: Zahraa Roca DO EXAMINATION: XR THORACIC [...] 10/16/24 1419 DD/ 1336 TD/TT: 10/16/24 1400 Sprinkler Installer: Zahraa Roca DO IMG XR PROCEDURES Edited Res ult - Final * (ABNORMAL) CBC (10/15/2024 12:57 PM EDT) White Blood Count 7.6 4.8 - 10.8 X10*3/uL [facility] Red Blood Count 3.80(L) 4.60 - 5.80 X10*6/uL [facility] Hemoglobin 11.3(L) 14.0 - 18.0 g/dl [facility] Hematocrit 35.3(L) 42.0 - 52.0 % [facility] Mean Corpuscular Volume 92.9 80.0 - 98.0 fL [facility] Mean Corpuscular Hemoglobin 29.7 27.0 - 33.0 pg [facility] Mean Corpuscular HGB Conc 32.0 31.0 - 36.0 g/dl [facility] Red Cell Distribution Width 12.1 11.0 - 16.0 % [facility] Platelet Count 184 160 - 400 X10*3/uL [facility] Mean Platelet Volume 11.2 9.4 - 12.4 fL [facility] NRBC Pct Auto 0.0 0.0 - 0.2 /100WBC [facility] NRBC Abs Auto 0.000 0.0 - 0.012 X10*3/uL [facility] 10/15/2024 12:5 7 PM EDT 10/15/2024 12:57 PM EDT us Generic External Data Provider LAB BLOOD ORDERAB LES Final Result [facility] [address] [place] [phone] [phone] * (ABNORMAL) Basic Metabolic Panel (10/15/2024 12:57 PM EDT) Sodium 139 135 - 145 mmol/L [facility] Potassium 4.0 3.3 - 5.1 mmol/L [facility] Chloride 104 96 - 108 mmol/L [facility] Carbon Dioxide 30(H) 22 - 29 mmol/L [facility] Anion Gap 9(L) 12 - 20 [facility] Urea Nitrogen (BUN) 13 9 - 16 mg/dL [facility] Creatinine, Serum 0.79 0.5 - 1.4 mg/dL [facility] Creatinine Clr Calc Pharmacy 107.8 [facility] Comment:eGFR (calculated fro m the MDRD study equation) and eCrCl(calculated from the Cockcroft-Gault equation) are based ondifferent parameters and may not yield comparable results.If eCrCl result is absurd, please check patient'sheight/weight. Estimated Glomerular Filt Rate >60 [facility] Comment:Chronic Kidney Disea se: Estimated GFR < 60 mL/min/1.38j0Foczbv Kidney Disease: Estimated GFR < 15 mL/min/1.73m2 Glucose 102 60 - 115 mg/dL [facility] Calcium 8.7 8.4 - 10.2 mg/dL [facility] 10/15/2024 12:5 7 PM EDT 10/15/2024 12:57 PM EDT us Generic External Data Provider LAB BLOOD ORDERAB LES Final Result [facility] [address] [place] [phone] * Drug Monitoring, Benzodiazepines, Quantitative, Urine (10/11/2024 10:30 AM EDT) Only the most recent of2 resultswithin the time period is included. Nordiazepam, GCMS Urine NEGATIVE [facility] Oxazepam, GCMS Urine NEGATIVE [facility] Lorazepam GCMS Urine NEGATIVE [facility] Alprazolam, GCMS Urine NEGATIVE [facility] Alphahydroxytriazolam , GCMS Ur NEGATIVE [facility] Temazepam, GCMS Urine NEGATIVE [facility] Alphahydroxymidazolam ,GCMS Ur NEGATIVE [facility] Aminoclonazepam, GCMS Urine 66 [facility] Comment:REFERENCE RANGE: <25 ng/mL Flurazepam Metabolite,GCMS Ur NEGATIVE [facility] Benzodiazepines Comments SEE NOTE [facility] Comment:This drug testing is for medical treatment only. Analysiswas performed as non-forensic testing and these resultsshould be used only by healthcare providers to renderdiagnosis or treatment, or to monitor progress of medicalconditions.Benzodiazepines Notes:Aminoclonazepam detected is consistent with the use of thedrug Clonazepam.LDT Notes:Confirmation tests were developed and their analyticalperformance characteristics have been determined by [employer]. It has not been cleared or approved by the FDA.This assay has been validated pursuant to the CLIAregulations and is used for clinical purposes.Healthcare Providers needing Interpretation assistance,please contact us at [phone] ( ) M-F,8am to 10pm ESTTHIS TEST PERFORMED AT:[employer] [place] [phone] DIRECTOR: SOCRATES MATHIAS MD 10/11/2024 10:3 0 AM EDT 10/11/2024 7:21 PM EDT Zahraabuck Londonjesus DO LAB URINE ORDERABLES Final R esult Performing Organization Address [facility] de Phone Number [facility] [address] [place] [phone] [phone] * (ABNORMAL) Oxycodone Screen, Urine (10/11/2024 10:30 AM EDT) Oxycodone Urine Screen Positive( A) Not Detect ng/mL [facility] Comment:Oxycodone cut-off is 100 ng/mL.Positive results are unconfirmed and should not be used fornon-medical purposes. Urine 10/11/2024 10:3 0 AM EDT 10/11/2024 7:25 PM EDT Zahraa Abelino DO LAB URINE ORDERABLES Final R esult Performing Organization Address [facility] de Phone Number [facility] [address] [place] [phone] * XR Pelvis 1-2 Views (10/05/2024 9:43 AM EDT) Anatomical Region Laterality Modality Body, Pelvis Radiographic Nara ging 10/05/2024 9:43 AM EDT Narrative 10/05/2024 12:22 PM EDT ?[facility] ?[address] ?[place] [address] ?XRay Report ? Signed ? Patient: Cristobal Enriquez ?MR#: [id number] ?? 54 ? : 1970 ?Acct:[id number] ? Age/Sex: 54 / M ?ADM Date: 03/14/25 ? Loc: HO.HHCX ? Attending Dr: Marcos Mckeon MD ? Ordering Physician: MARCOS MCKEON MD ?? Date of Service: 10/05/24 ?? Procedure(s): XR pelvis 1-2V ?? Accession Number(s): [id number] ? cc: MARCOS MCKEON MD ? EXAMINATION: [...] DD/ 0943 ? TD/TT: 10/05/24 1000 ? Sprinkler Installer: ? Procedure Note Denys Ervin - 10/05/[address] [address] XRay Report Signed Patient: Cristobal Enriquez JMR#: [id number] 54 : 1970Acct:[id number] Age/Sex: 54 / MADM Date: 10/05/24 Loc: HO.HHCX Attending Dr: Marcos Mckeon MD Ordering Physician: MARCOS MCKEON MD Date of Service: 10/05/24 Procedure(s): XR pelvis 1-2V Accession Number(s): [id number] cc: MARCOS MCKEON MD EXAMINATION: XR PELVIS [...] 10/05/24 1219 DD/ 0943 TD/TT: 10/05/24 1000 Sprinkler Installer: us Marcos Mckeon MD IMG XR PROCEDURES Final Result * XR Lumbar Spine 2-3 Views (10/05/2024 9:43 AM EDT) Anatomical Region Laterality Modality Spine, L-spine Radiographic Nara ging 10/05/2024 9:43 AM EDT Narrative 10/05/2024 12:20 PM EDT ?[facility] ?[address] ?[place] [address] ?XRay Report ? Signed ? Patient: Cristobal Enriquez ?MR#: [id number] ?? 54 ? : 1970 ?Acct:[id number] ? Age/Sex: 54 / M ?ADM Date: 10/05/24 ? Loc: HO.HHCX ? Attending Dr: Marcos Mckeon MD ? Ordering Physician: MARCOS MCKEON MD ?? Date of Service: 10/05/24 ?? Procedure(s): XR lumbar spine 2-3V ?? Accession Number(s): [id number] ? cc: MARCOS MCKEON MD ? EXAMINATION: [...] of L2-3 disc space with a central qhtv-ga-zhjb appearance. ?? Moderate loss at L1-2 and [...] DD/ 0943 ? TD/TT: 10/05/24 1000 ? Sprinkler Installer: ? Procedure Note Donlaytonter, Image - 10/05/2024 [place] [address] XRay Report Signed Patient: Cristobal Enriquez JMR#: [id number] 54 : 1970Acct:[id number] Age/Sex: 54 / MADM Date: 10/05/24 Loc: HO.HHCX Attending Dr: Marcos Mckeon MD Ordering Physician: MARCOS MCKEON MD Date of Service: 10/05/24 Procedure(s): XR lumbar spine 2-3V Accession Number(s): [id number] cc: MARCOS MCKEON MD EXAMINATION: XR LUMBOSACRAL [...] of L2-3 disc space with a central zvfi-cz-bqaj appearance. Moderate loss at L1-2 and L3-4 [...] 10/05/24 1217 DD/ 0943 TD/TT: 10/05/24 1000 Sprinkler Installer: Marcos Mckeon MD IMG XR PROCEDURES Final Result * Gross and Microscopic Level 3 (09/19/2024 9:00 AM EST) 09/19/2024 9:00 AM EST 09/19/2024 12:05 PM EST [facility] - 09/20/2024 3:24 PM EST ----- ------- Name: Cristobal Enriquez ? Age/Sex: 54/M ? : 1970 Unit#: [id number] ?? Attend Dr: Sergei Christine MD ?Re09/19/24 ?Status: DEP REF ? Location: HO.LNP ?Disch: ? ----- ------- SPEC : [id number] ? RECD: 09/19/24-1204 ? STATUS: ??SOUT ? REQ NUM: [id number] ? NGA: 09/19/24 ? SUBM DR: Sergei [...] ? Age/Sex: 54/M ? : 1970 Unit#: [id number] ?? Attend Dr: Sergei Christine MD ?Re09/19/24 ?Status: DEP REF ? Location: HO.LNP ?Disch: ? ----- ------- SPEC : [id number] ? RECD: 09/19/24 ? STATUS: ??SOUT ? REQ NUM: [id number] ? NGA: 09/19/24 ? SUBM DR: Sergei Christine MD ? ENTERED: ??09/19/24 ?SP TYPE: Surgical ? OTHR DR: Zahraa Roca DO ? ORDERED: ??Gross Micro L3/2 ? Gross Description ?(Continued) CEDS This case was reviewed intradepartmentally. ??Results given to Dr. Christine by secure text by Dr. Naik on 09/20/24 at 3:22 pm. Copies To: ?? Zahraa Roca DO ?? [facility] ?? [address] ?? [place] [address] ?? [phone] ?? Sergei Christine MD ?? [facility] ?? [address] ?? [place] [address] ?? [phone] ?? [email or web address] ----- ------- Signed (signature on file) Lore Naik 09/20/24 1524 ? ----- ------- ? END OF REPORT ? us Generic External Data Provider LAB CYTOLOGY BRIAN SANCHEZ Final Result [facility] [address] [place], [place] [phone] * HIV-1/2 Antigen and Antibodies, Fourth Generation, with Reflexes (10/24/2023 10:26 AM EDT) Pathologist [facility] HIV AB/AG Nonreactive Nonreactive [facility] Comment:HIV-1 p24 Ag and/or HIV-1/HIV-2 Ab not detected.A test result that is nonreactive does not exclude thepossibility of exposure to or infection with HIV-1 and/orHIV-2. Nonreactive results in this assay for individualswith prior exposure to HIV-1 and/or HIV-2 may be due toantigen and antibody levels that are below the limit ofdetection of this assay.The PDV HIV Ag/Ab Combo assay result andsupplemental assay results should be interpreted inconjunction with the patient's clinical presentation,history and other laboratory results. If the results areinconsistent with clinical evidence, additional testing issuggested to confirm the result. Blood Venous blood specimen / Unknown 10/24/2023 10:26 AM EDT 10/24/2023 11:09 AM EDT us Zahraa Roca DO LAB BLOOD ORDERABLES Final R esult [facility] [address] [place] [phone] [phone] * (ABNORMAL) Lipid Panel, Standard (10/24/2023 10:26 AM EDT) Triglycerides 48 <150 mg/dL [facility] Comment:Desirable Triglyceri de: less than 150 mg/dLBorderline High Triglyceride 150-199 mg/dLHigh Triglyceride: 200-499 mg/dLVery High Triglyceride: greater than or equal to 5OO mg/dL Cholesterol 174 <200 mg/dL [facility] Comment:Desirable Cholestero l: less than 200 mg/dLBorderline High Cholesterol: 200-239 mg/dLHigh Cholesterol: greater than 239 mg/dL LDL Cholesterol Calculated 113(H) <100 mg/dL [facility] Comment:Desirable LDL: less than 100 mg/dLNear Optimal/Above Optimal LDL: 110- 129 mg/dLBorderline High LDL: 130-159 mg/dLHigh LDL: 160-189 mg/dLVery High LDL: greater than or equal to 190 mg/dL HDL Cholesterol 52 >40 mg/dL [facility] Comment:Desirable HDL: great er than 40 mg/dL Note: This HDL assay may give artificially low results in patients with liver disease. Blood Venous blood specimen / Unknown 10/24/2023 10:26 AM EDT 10/24/2023 1:07 PM EDT Zahraa Roca DO LAB BLOOD ORDERABLES Final R esult Performing Organization Address [facility] Co de Phone Number [facility] [address] [place] [phone] * Hm Colonoscopy (03/16/2023 9:43 AM EDT) Historical Provider HEALTH MAINTENANCE Final Result * Fecal Globin by Immunochemistry (07/13/2022 12:00 AM EST) Fecal Globin By Immunochemistry SEE NOTE [employer]! Comment: ??FECAL GLOBIN BY IMMUNOCHEMISTRY ?Micro Number: ?[id number] ??Test Status: ? Final ??Specimen Source: ?? Insure (tm) fobt test card ??Specimen Quality: ??Adequate ??Fecal Globin: ?Not Detected 07/13/2022 07/28/2022 8:2 7 AM EST Zahraa Roca DO LAB BODY FLUIDS AND STOOLS O RDERABLES Final Result Performing Organization Address [facility] Co de Phone Number [employer] [address] [place] [address] [employer] [place] [employer] [address]) [place] [phone] from Last 3 Months or Most Recently Relevant to Health Maintenance Insurance [facility] STANDARD MEDICARE DENTAL-[facility] MEDICAID STAND ADULT Care Teams Buffer Chrome Relationship Specialty Start Date End Date Zahraa Roca DO [address] [place] [address] PCP - General Family Medicine 07/25/18 Christian Soria FNP [address] [place] [address] Nurse Practitioner Family Medicine 06/24/23
--- OUTSIDE RECORDS SUMMARY | 2024-11-20 16:02 | XMS_ITS | Encounter Summary ---
Author Organization [employer] Address [address] [facility] [address] 7t [place] [address] Care Team Providers Care Form Builder Name Role Phone Zahraa Roca DO Primary Care Provider + [phone] Christian Soria Unavailable Unavailable Encounter Details Date Type Department Care Team (Late st Contact Info) Description 10/10/2024 Orders Only [facility] MEDICINE [address] [place], [place] [phone] Zahraa Roca DO 230 [place] [address] Social History Tobacco Use Types Packs/Day Years [...] Description 12/20/2024 10:30 AM EDT Clinical Support [facility] MEDICINE [address] [place] [address] Mere Rios RN 12/26/2024 9:00 AM EDT Office Visit [facility] ADULT DENTAL [address] [place] [address] El[place] Arce documented as of this encounter Visit Diagnoses Not on filedocumented in this encounter Additional Health Concerns Assessment Noted Time PHQ-9 Depression Total Score: 0 11/28/19 24 11:23 AM EDT documented as of this encounter Care Teams Form Builder Relationship Specialty Start Date End Date Zahraa Roca DO [address] [place] [address] PCP - General Family Medicine 07/25/18 Christian Soria FNP [address] [place] [address] Nurse Practitioner Family Medicine 06/24/23 documented as of this encounter
--- OUTSIDE RECORDS SUMMARY | 2024-11-20 16:02 | XMS_ITS | Encounter Summary ---
Author Organization [employer] Address [address] [facility] 7t [place] [address] Care Team Providers Care Doctor Naturopathic Name Role Phone Zahraa Roca DO Primary Care Provider + [phone] Christian Soria Unavailable Unavailable Reason for Visit * Reason Onset Date Comments PT-1 07/13/2024 Encounter Details Date Type Department Care Team ([facility] st Contact Info) Description 07/13/2024 Telephone [facility] MED[facility] 230 [place], [place] [phone] Zahraa Roca DO 230 [place], [place] [phone] PT-1 Social History Tobacco Use Types Packs/Day [...] Yes Provider name or facility name: [facility] Escort needed: Y/N: No Do you have a wheelchair: Y/N: No If yes- Manual or electric: Visits: (3x Monthly) documented in this encounter Plan of Treatment Upcoming Encounters Date Type Department Care Team (Late st Contact Info) Description 12/20/2024 10:30 AM EDT Clinical Support [facility] MEDICINE [address] [place] [address] Mere Rios RN 12/26/2024 9:00 AM EDT Office Visit [facility] ADULT DENTAL [address] [place] [address] Elis Arce documented as of this encounter Visit Diagnoses Not on filedocumented in this encounter Additional Health Concerns Assessment Noted Time PHQ-9 Depression Total Score: 0 11/28/19 24 11:23 AM EDT documented as of this encounter Care Teams Doctor Naturopathic Relationship Specialty Start Date End Date Zahraa Roca DO [address] [place] [address] PCP - General Family Medicine 07/25/18 Christian Soria FNP [address] [place] [address] Nurse Practitioner Family Medicine 06/24/23 documented as of this encounter
--- OUTSIDE RECORDS SUMMARY | 2024-11-20 16:02 | XMS_ITS | Encounter Summary ---
Author Organization [employer] Address [address] [place] [address] 7t [place] [address] Care Team Providers Care Investigations Manager Name Role Phone Zahraa Roca DO Primary Care Provider + [phone] Christian Soria Unavailable Unavailable Encounter Details Date Type Department Care Team (Late st Contact Info) Description 08/31/2022 Abstract [facility] MEDICINE [address] [place] [address] [phone] Zahraa Roca DO [address] [place] [address] [phone] Social History Tobacco Use Types Packs/Day Years [...] Description 12/20/2024 10:30 AM EDT Clinical Support [facility] MEDICINE [address] [place] [address] Mere Rios RN 12/26/2024 9:00 AM EDT Office Visit [facility] ADULT DENTAL [address] [place] [address] [phone] Elis Arce documented as of this encounter Visit Diagnoses Not on filedocumented in this encounter Additional Health Concerns Assessment Noted Time PHQ-9 Depression Total Score: 0 08/24/19 2:33 PM EST documented as of this encounter Care Teams Investigations Manager Relationship Specialty Start Date End Date Zahraa Roca DO 230 [place] [address] PCP - General Family Medicine 07/25/18 Christian Soria FNP [address] [place] [address] Nurse Practitioner Family Medicine 06/24/23 documented as of this encounter
--- OUTSIDE RECORDS SUMMARY | 2024-11-20 16:02 | XMS_ITS | Encounter Summary ---
Author Organization [employer] Address [address] [facility] 7t [place] [address] Care Team Providers Care Long Wall Mining Machine Tender Name Role Phone Zahraa Roca DO Primary Care Provider + [phone] Christian Soria Unavailable Unavailable Reason for Visit * Reason Onset Date Comments Appt question 08/09/2024 Encounter Details Date Type Department Care Team ([facility] st Contact Info) Description 08/09/2024 Telephone [facility] MEDICINE 230 [place], [place] [phone] Zahraa Roca DO 230 [place], [place] [phone] Appt question Social History Tobacco Use Types [...] aug appt its for that. Any questions [phone] documented in this encounter Plan of Treatment Upcoming Encounters Date Type Department Care Team (Late st Contact Info) Description 12/20/2024 10:30 AM EDT Clinical Support [facility] MEDICINE 230 [place] [address] Mere Rios RN 12/26/2024 9:00 AM EDT Office Visit [facility] ADULT DENTAL 230 [place] [address] Elis Arce documented as of this encounter Visit Diagnoses Not on filedocumented in this encounter Additional Health Concerns Assessment Noted Time PHQ-9 Depression Total Score: 0 11/28/19 24 11:23 AM EDT documented as of this encounter Care Teams Long Wall Mining Machine Tender Relationship Specialty Start Date End Date Zahraa Roca DO 230 [place] [address] PCP - General Family Medicine 07/25/18 Christian Soria FNP 230 [place] [address] Nurse Practitioner Family Medicine 06/24/23 documented as of this encounter
--- OUTSIDE RECORDS SUMMARY | 2024-11-20 16:02 | XMS_ITS | Encounter Summary ---
Author Organization [employer] Address [address] [place] [address] 7t [place] [address] Care Team Providers Care Data Analytics Specialist Name Role Phone Zahraa Roca DO Primary Care Provider + [phone] Christian Soria Unavailable Unavailable Encounter Details Date Type Department Care Team (Late st Contact Info) Description 07/06/2022 Orders Only [facility] [address] [place] [address] Zahraa Andino LPN Social History Tobacco Use [...] 12/20/2024 10:30 AM EDT Clinical Support [facility] MEDICINE 230 [place] [address] Mere Rios, HENRIK 12/26/2024 9:00 AM EDT Office Visit [facility] ADULT DENTAL 230 [place] [address] Elis Arce documented as of this encounter Visit Diagnoses Not on filedocumented in this encounter Care Teams Data Analytics Specialist Relationship Specialty Start Date End Date Zahraa Roca DO 230 [place] [address] PCP - General Family Medicine 07/25/18 Christian Soria FNP [address] [place] [address] Nurse Practitioner Family Medicine 06/24/23 documented as of this encounter
--- OUTSIDE RECORDS SUMMARY | 2024-11-20 16:02 | XMS_ITS | Encounter Summary ---
Author Organization [employer] Address [address] [facility] 7t [place] [address] Care Team Providers Care Homebirth Midwife Name Role Phone Zahraa Roca DO Primary Care Provider + [phone] Christian Soria Unavailable Unavailable Reason for Visit * Reason Onset Date Comments PT-1 10/02/2024 Encounter Details Date Type Department Care Team ([facility] st Contact Info) Description 10/02/2024 Telephone [facility] MEDICINE 230 [place], [place] [phone] Zahraa Roca DO 230 [place], [place] [phone] PT-1 Social History Tobacco Use Types Packs/Day [...] status of Pt 1 Contact pt at [phone] * Telephone Encounter - Go Vasquez - 10/02/2024 9:06 AM EDT Patient calling requesting PT1 Home Address verified: Y/N: Yes Provider name or facility name: [facility] Care Resource [address] [address] Escort needed: Y/N: No Do you have a wheelchair: Y/N: No If yes- Manual or electric: Visits: (7 Days x Weekly) documented in this encounter Plan of Treatment Upcoming Encounters Date Type Department Care Team ([facility] st Contact Info) Description 12/20/2024 10:30 AM EDT Clinical Support [facility] MEDICINE [address] [place] [address] Mere Rios, HENRIK 12/26/2024 9:00 AM EDT Office Visit [facility] ADULT DENTAL [address] [place] [address] Elis Arce documented as of this encounter Visit Diagnoses Not on filedocumented in this encounter Additional Health Concerns Assessment Noted Time PHQ-9 Depression Total Score: 0 11/28/19 24 11:23 AM EDT documented as of this encounter Care Teams Homebirth Midwife Relationship Specialty Start Date End Date Zahraa Roca DO [address] [place] [address] PCP - General Family Medicine 07/25/18 Christian Soria FNP [address] [place] [address] Nurse Practitioner Family Medicine 06/24/23 documented as of this encounter
--- OUTSIDE RECORDS SUMMARY | 2024-11-20 16:02 | XMS_ITS | Encounter Summary ---
Author Organization [employer] Address 75 [facility] 7t [place] [address] Care Team Providers Care Labor Commissioner Name Role Phone Zahraa Roca DO Primary Care Provider + [phone] Christian Soria Unavailable Unavailable Encounter Details Date Type Department Care Team (Late st Contact Info) Description 10/21/2022 Orders Only [facility] 505 [place] [address] Zahraa Andino LPN Social History Tobacco Use [...] Description 12/20/2024 10:30 AM EDT Clinical Support [facility] MEDICINE 230 [place] [address] Mere Rios RN 12/26/2024 9:00 AM EDT Office Visit [facility] ADULT DENTAL 230 [place] [address] Elis Arce documented as of this encounter Visit Diagnoses Not on filedocumented in this encounter Additional Health Concerns Assessment Noted Time PHQ-9 Depression Total Score: 0 08/24/19 23 2:33 PM EST documented as of this encounter Care Teams Labor Commissioner Relationship Specialty Start Date End Date Zahraa Roca DO 230 [place] [address] PCP - General Family Medicine 07/25/18 Christian Soria FNP 230 [place] [address] Nurse Practitioner Family Medicine 06/24/23 documented as of this encounter
--- OUTSIDE RECORDS SUMMARY | 2024-11-20 16:02 | XMS_ITS | Encounter Summary ---
Author Organization [email or web address] Address [address] [facility] 7t [place] [address] Care Team Providers Care Double Reamer Operator Name Role Phone Zahraa Roca DO Primary Care Provider + [phone] Christian Soria Unavailable Unavailable Encounter Details Date Type Department Care Team (Late st Contact Info) Description 09/20/2022 Orders Only [facility]S 505 [place] [address] Zahraa Andino LPN Social History Tobacco Use [...] Description 12/20/2024 10:30 AM EDT Clinical Support [facility] MEDICINE 230 [place] [address] Mere Rios RN 12/26/2024 9:00 AM EDT Office Visit [facility] ADULT DENTAL 230 [place] [address] Elis Arce documented as of this encounter Visit Diagnoses Not on filedocumented in this encounter Additional Health Concerns Assessment Noted Time PHQ-9 Depression Total Score: 0 08/24/19 23 2:33 PM EST documented as of this encounter Care Teams Double Reamer Operator Relationship Specialty Start Date End Date Zahraa Roca DO 230 [place] [address] PCP - General Family Medicine 07/25/18 Christian Soria FNP 230 [place] [address] Nurse Practitioner Family Medicine 06/24/23 documented as of this encounter
--- OUTSIDE RECORDS SUMMARY | 2024-11-20 16:02 | XMS_ITS | Encounter Summary ---
Author Organization [employer] Address [address] [facility] 7t [place] [address] Care Team Providers Care Barber Name Role Phone Zahraa Roca DO Primary Care Provider + [phone] Christian Soria Unavailable Unavailable Reason for Visit * Reason Onset Date Comments PT1 01/03/2024 Encounter Details Date Type Department Care Team ([facility] st Contact Info) Description 01/03/2024 Telephone [facility] MEDICINE 230 [place], [place] [phone] Zahraa Roca DO 230 [place], [place] [phone] PT1 Social History Tobacco Use Types Packs/Day [...] or facility name[facility] Facility Address: [address] [place] [address] Escort needed: Y/N: No Do you have a wheelchair: Y/N: No If yes- Manual or electric: none Visits: 7 days a week documented in this encounter Plan of Treatment Upcoming Encounters Date Type Department Care Team ([facility] Contact Info) Description 12/20/2024 10:30 AM EDT Clinical Support [facility] MEDICINE 230 [place] [address] Mere Rios RN 12/26/2024 9:00 AM EDT Office Visit [facility] ADULT DENTAL 230 [place] [address] Elis Arce documented as of this encounter Visit Diagnoses Not on filedocumented in this encounter Additional Health Concerns Assessment Noted Time PHQ-9 Depression Total Score: 0 11/28/19 24 11:23 AM EDT documented as of this encounter Care Teams Barber Relationship Specialty Start Date End Date Zahraa Roca DO 230 [place] [address] PCP - General Family Medicine 07/25/18 Christian Soria FNP [address] [place] [address] Nurse Practitioner Family Medicine 06/24/23 documented as of this encounter
--- OUTSIDE RECORDS SUMMARY | 2024-11-20 16:02 | XMS_ITS | Encounter Summary ---
Author Organization [employer] Address 75 [facility] 7t [place] [address] Care Team Providers Care Receiver Dispatcher Name Role Phone Zahraa Roca DO Primary Care Provider + [phone] Christian Soria Unavailable Unavailable Reason for Visit * Reason Onset Date Comments PT-1 03/15/2024 Encounter Details Date Type Department Care Team ([facility] st Contact Info) Description 03/15/2024 Telephone [facility] MEDICINE 230 [place], [place] [phone] Zahraa Roca DO 230 [place], [place] [phone] PT-1 Social History Tobacco Use Types Packs/Day [...] Y/N: Yes Provider name or facility name: [email or web address] Facility Address: [address] [place] [address] Escort needed: Y/N: No Do you have a wheelchair: Y/N: No If yes- Manual or electric: no Visits: 3 documented in this encounter Plan of Treatment Upcoming Encounters Date Type Department Care Team (Late st Contact Info) Description 12/20/2024 10:30 AM EDT Clinical Support [facility] MEDICINE 230 [place] [address] Mere Rios RN 12/26/2024 9:00 AM EDT Office Visit [facility] ADULT DENTAL [address] [place] [address] Elis Arce documented as of this encounter Visit Diagnoses Not on filedocumented in this encounter Additional Health Concerns Assessment Noted Time PHQ-9 Depression Total Score: 0 11/28/19 24 11:23 AM EDT documented as of this encounter Care Teams Receiver Dispatcher Relationship Specialty Start Date End Date Zahraa Roca DO 230 [place] [address] PCP - General Family Medicine 07/25/18 Christian Soria FNP [address] [place] [address] Nurse Practitioner Family Medicine 06/24/23 documented as of this encounter
--- OUTSIDE RECORDS SUMMARY | 2024-11-20 16:02 | XMS_ITS | Encounter Summary ---
Author Organization [employer] Address 75 [facility] 7t [place] [address] Care Team Providers Care Tile And Marble Setter Name Role Phone Zahraa Roca DO Primary Care Provider + [phone] Christian Soria Unavailable Unavailable Reason for Visit * Reason Onset Date Comments Appointment Request 08/03/2024 Encounter Details Date Type Department Care Team ([facility] Contact Info) Description 08/03/2024 Telephone [facility] MEDICINE 230 [place], [place] [phone] Zahraa Roca DO 230 [place], [place] [phone] Appointment Request Social History Tobacco Use Types [...] missed appointment with dermatology. Contact pt at [phone] documented in this encounter Plan of Treatment Upcoming Encounters Date Type Department Care Team (Late st Contact Info) Description 12/20/2024 10:30 AM EDT Clinical Support [facility] MEDICINE [address] [place] [address] Mere Rios RN 12/26/2024 9:00 AM EDT Office Visit [facility] ADULT DENTAL 230 [place] [address] Elis Arce documented as of this encounter Visit Diagnoses Not on filedocumented in this encounter Additional Health Concerns Assessment Noted Time PHQ-9 Depression Total Score: 0 11/28/19 24 11:23 AM EDT documented as of this encounter Care Teams Tile And Marble Setter Relationship Specialty Start Date End Date Zahraa Roca DO 230 [place] [address] PCP - General Family Medicine 07/25/18 Christian Soria FNP [address] [place] [address] Nurse Practitioner Family Medicine 06/24/23 documented as of this encounter
--- OUTSIDE RECORDS SUMMARY | 2024-11-20 16:02 | XMS_ITS | Encounter Summary ---
Author Organization [employer] Address [address] [facility] [address] 7t [place] [address] Care Team Providers Care Door To Door Salesperson Name Role Phone YudiZahraa barahona Primary Care Provider + [phone] Christian Soria Unavailable Unavailable Encounter Details Date [...] 12/20/2024 10:30 AM EDT Clinical Support [facility] MEDICINE 230 [place] [address] Mere Rios RN 12/26/2024 9:00 AM EDT Office Visit [facility] ADULT DENTAL [address] [place] [address] Elis Arce documented as of this encounter Visit Diagnoses Not on filedocumented in this encounter Additional Health Concerns Assessment Noted Time PHQ-9 Depression Total Score: 16 025 3:09 PM EDT documented as of this encounter Care Teams Door To Door Salesperson Relationship Specialty Start Date End Date Zahraa Roca DO [address] [place] [address] PCP - General Family Medicine 07/25/18 Christian Soria FNP [address] [place] [address] Nurse Practitioner Family Medicine 06/24/23 documented as of this encounter
--- OUTSIDE RECORDS SUMMARY | 2024-11-20 16:02 | XMS_ITS | Encounter Summary ---
Author Organization [employer] Address 75 [facility] 7t [place] [address] Care Team Providers Care Lathe Spotter Name Role Phone Zahraa Roca DO Primary Care Provider + [phone] Christian Soria Unavailable Unavailable Reason for Visit * Reason Onset Date Comments Appointment Request 06/19/2024 Encounter Details Date Type Department Care Team ([facility] Contact Info) Description 06/19/2024 Telephone [facility] MEDICINE 230 [place], [place] [phone] Zahraa Roca DO [address] [place], [place] [phone] Appointment Request Social History Tobacco Use Types [...] Description 12/20/2024 10:30 AM EDT Clinical Support [facility] MEDICINE [address] [place] [address] Mere Rios RN 12/26/2024 9:00 AM EDT Office Visit [facility] ADULT DENTAL 230 [place] [address] Elis Arce documented as of this encounter Visit Diagnoses Not on filedocumented in this encounter Additional Health Concerns Assessment Noted Time PHQ-9 Depression Total Score: 0 11/28/19 24 11:23 AM EDT documented as of this encounter Care Teams Lathe Spotter Relationship Specialty Start Date End Date Zahraa Roca DO 230 [place] [address] PCP - General Family Medicine 07/25/18 Christian Soria FNP [address] [place] [address] Nurse Practitioner Family Medicine 06/24/23 documented as of this encounter
--- OUTSIDE RECORDS SUMMARY | 2024-11-20 16:02 | XMS_ITS | Encounter Summary ---
Author Organization [employer] Address [address] [place] [address] 7t [place] [address] Care Team Providers Care Improvement Lead Name Role Phone SuryaZahraa lee Primary Care Provider + [phone] Christian Soria Unavailable Unavailable Reason for Visit * Reason Comments Med Refill Encounter Details Date Type Department Care Team (Late st Contact Info) Description 12/19/2022 Refill [facility] MEDICINE [address] [place] [address] Christian Soria FNP Anxiety Social History Tobacco [...] 12/20/2024 10:30 AM EDT Clinical Support [facility] MEDICINE [address] [place] [address] Mere Rios RN 12/26/2024 9:00 AM EDT Office Visit [facility] ADULT DENTAL [address] [place] [address] Elis Arce documented as of this encounter Visit Diagnoses Diagnosis Anxiety Anxiety state, unspecified documented in this encounter Additional Health Concerns Assessment Noted Time PHQ-9 Depression Total Score: 0 08/24/19 23 2:33 PM EST documented as of this encounter Care Teams Improvement Lead Relationship Specialty Start Date End Date Zahraa Roca DO [address] [place] [address] PCP - General Family Medicine 07/25/18 Christian Soria FNP [address] [place] [address] Nurse Practitioner Family Medicine 06/24/23 documented as of this encounter
--- OUTSIDE RECORDS SUMMARY | 2024-11-20 16:02 | XMS_ITS | Encounter Summary ---
Author Organization [employer] Address 75 [facility] 7t [place] [address] Care Team Providers Care Utility Tech Name Role Phone Zahraa Roca DO Primary Care Provider + [phone] Christian Soria Unavailable Unavailable Reason for Visit * Reason Onset Date Comments PT-1 10/01/2024 Encounter Details Date Type Department Care Team ([facility] st Contact Info) Description 10/01/2024 Telephone [facility] MEDICINE [address] [place], [place] [phone] Zahraa Roca DO [address] [place], [place] [phone] PT-1 (/) Social History Tobacco Use Types [...] EDT Tc from pt requesting for the Dry Yard Worker locations for all his Pt 1 to be changed to [address] [place] [address]. If any questions contact pt at [phone] documented in this encounter Plan of Treatment Upcoming Encounters Date Type Department Care Team (Late st Contact Info) Description 12/20/2024 10:30 AM EDT Clinical Support [facility] MEDICINE [address] [place] [address] Mere Rios, HENRIK 12/26/2024 9:00 AM EDT Office Visit [facility] ADULT DENTAL [address] [place] [address] Elis Arce documented as of this encounter Visit Diagnoses Not on filedocumented in this encounter Additional Health Concerns Assessment Noted Time PHQ-9 Depression Total Score: 0 11/28/19 24 11:23 AM EDT documented as of this encounter Care Teams Utility Tech Relationship Specialty Start Date End Date Zahraa Roca DO [address] [place] [address] PCP - General Family Medicine 07/25/18 Christian Soria FNP [address] [place] [address] Nurse Practitioner Family Medicine 06/24/23 documented as of this encounter
== END 2024-11-20 14:19 | disposition home or self-care (01) ==
LOC: HO.HVS 13:54
PROVIDERS: PCP Family Medicine; Visit Provider Surgery Vascular Surgery
DX: I83.12 Varicose veins of left lower extremity with inflammation (principal)
CPT/HCPCS: 99214

== ENCOUNTER → 2024-11-20 13:53 | Outpatient (BNVA) | payer MEDICARE, MEDICAID, SELFPAY | PROVIDERS: PCP Family Medicine; Visit Provider Surgery Vascular Surgery | DX: I83.12 Varicose veins of left lower extremity with inflammation (principal); F17.210 Nicotine dependence, cigarettes, uncomplicated; Z85.828 Personal history of other malignant neoplasm of skin | CPT/HCPCS: 99212 ==

== ENCOUNTER 2024-12-14 10:11 | Outpatient (AMB) | payer MEDICARE, MEDICAID, SELFPAY ==
--- OUTSIDE RECORDS SUMMARY | 2024-12-14 10:26 | XMS_ITS | Encounter Summary ---
Author Organization [employer] Address [address] [place] [address] Care Team Providers Care Metal Fence Erector Name Role Phone Betzaida Rocafer Primary Care Provider [phone] Christian Soria Unavailable Unavailable Encounter Details Date Type Department Care Team (Late st Contact Info) Description 11/28/2024 Telephone [facility] ADULT DENTAL [address] [place], [place] [phone] Ronak Munoz, POLLY [address] [place] [address] Social History Tobacco Use Types Packs/Day Years [...] Description 12/20/2024 10:30 AM EDT Clinical Support [facility] MEDICINE [address] [place] [address] Mere Rios RN 12/26/2024 9:00 AM EDT Office Visit [facility] ADULT DENTAL [address] [place] [address] Elis Arce 01/15/2025 10:30 AM EDT Office Visit [facility] ADULT DENTAL [address] [place] [address] Cristian Finley DDS [address] [place] [address] documented as of this encounter Visit Diagnoses Not on filedocumented in this encounter Additional Health Concerns Assessment Noted Time PHQ-9 Depression Total Score: 16 025 3:09 PM EDT documented as of this encounter Care Teams Metal Fence Erector Relationship Specialty Start Date End Date Zahraa Roca DO [address] [place] [id number] PCP - General Family Medicine 07/25/18 Christian Soria FNP [address] [place] [address] Nurse Practitioner Family Medicine 06/24/23 documented as of this encounter
--- NOTE | 2024-12-14 11:01 | A.OFFVIS_ITS ---
Intake Visit Reasons: Left GSV Venaseal Intake Note: Patient presents for left gsv rfa. Accompanied by: Self / Same As Patient Allergies No Known Allergies Allergy (Verified 12/14/24 11:02) PFSH Medical History Pneumonia Low BP Rash Family history of pseudocholinesterase deficiency Alcohol dependence in remission Hx of substance abuse Chronic right hip pain Degenerative disc disease Chronic back pain History of hepatitis C Chronic anemia Anxiety Surgical History History of left hip replacement History of total right hip arthroplasty Hx of colonoscopy History of surgery History of right inguinal hernia repair History of laminectomy Family History Mother Osteoarthritis Social History Household Members: None Housing: Apartment Housing Other:: second floor Are you a primary manager medicare to a significant other at home: No Do you presently have visiting nurse or other home services: No Alcohol intake: never Comment: Pt. refused supervision/ steady walking with crutches. Patient Tobacco Use Status: Current everyday Tobacco user Tobacco use type: Cigarette Cigarettes Per Day: 3 Years Smoked: 40 Substance Use Type: Amphetamines and Crack/Cocaine service: No Current occupational status: disabled Office Procedures Vascular Office Procedure Details Details: Diagnosis: Left Leg varicose veins with inflammation Procedure: Endovenous Ablation of the left Great Saphenous Vein with VenaSeal Closure System Anesthesia: Local infiltration 5 cc, Estimated Blood Loss: min Specimen: none Duplex ultrasound was used to map out the insufficient saphenous vein, and access was determined and marked on the overlying skin. The depth and diameter of the vein(s) to be treated was documented. The patient was placed supine on the procedure table and the leg was prepped and draped using sterile technique. Ultasound guidance was again used to localize the access site. 1% lidocaine was injected as a local anesthetic in the subcutaneous tissues at the target location in the GSV in the lower leg. Using ultrasound guidance, access was gained at this location with the 19 gauge thin walled access needle and followed by introduction of a short guidewire, location confirmed with ultrasound. A small, 3 mm incision was made at the access site to allow for introduction and placement of the 7 Fr x7cm introducer/dilator. The dilator and guidewire were removed. The 0.035 guidewire from the VenaSeal kit was then introduced and positioned at the saphenofemoral junction using ultrasound guidance. The 80 cm 7 Fr introducer sheath/dilator was positioned 5cm from the saphenofemoral junction. The guidewire and dilator were removed, and the remaining sheath was flushed with sterile saline, with the syringe remaining in place prior to the next steps. The cyanoacrylate adhesive was precisely primed into the 5 F delivery catheter and this catheter/syringe combination was attached within the dispenser gun. This assembly was introduced through the 7F sheath and positioned 5 cm caudal of the saphenofemoral junction under ultrasound guidance. The steps from the IFU were followed for dispensing amounts, locations and compression times, 2 aliquots proximally with 3 minutes of compression, and 1 aliquot every 3 cm distally with 30 sec of compression along the course of the vessel. Following the last injection and compression sequence, the catheter and introducer sheath were pulled out from the access site. Hemostasis was achieved with manual compression and an adhesive bandage was applied to the incision. Ultrasound confirmed complete coaptation and closure of the treated segments of the GSV, and the absence of any DVT at the saphenofemoral junction. Treatment time was approximately 5 minutes and the vein length treated was 35 cm. The drapes were removed and the patient cleaned and prepared for discharge. Post op ultrasound check is scheduled for 48-72 hours and the patient was given written post-op instructions. 28811 - Endoven Ther Chem Adhes 1st All charges added?: Procedure code (CPT) selection complete Assessment & Plan Assessment & Plan (1) Varicose veins of left lower extremity with inflammation: Comment: 12/14/2024 - left great saphenous vein Cyanoacralate ablation Code(s): I83.12 - Varicose veins of left lower extremity with inflammation Category: Medical Plan: See op note Coding Level of Care Code Procedure Only Diagnoses Varicose veins of left lower extremity with inflammation I83.12 CPT Codes Details - Vascular 3: 99275 - Endoven Ther Chem Adhes 1st ([id number])
== END 2024-12-14 12:00 | disposition home or self-care (01) ==
LOC: HO.HVS 10:12
PROVIDERS: PCP Family Medicine; Visit Provider Surgery Vascular Surgery
DX: I83.12 Varicose veins of left lower extremity with inflammation (principal)
CPT/HCPCS: 36482

== ENCOUNTER → 2024-12-14 10:11 | Outpatient (BNVA) | payer MEDICARE, MEDICAID, SELFPAY | PROVIDERS: PCP Family Medicine; Visit Provider Surgery Vascular Surgery | DX: I83.12 Varicose veins of left lower extremity with inflammation (principal) | CPT/HCPCS: 36482; J2003 ==

== ENCOUNTER 2024-12-20 16:21 | Outpatient (REF) | payer MEDICARE, MEDICAID, SELFPAY ==
--- OUTSIDE RECORDS SUMMARY | 2024-12-20 16:24 | XMS_ITS | Encounter Summary ---
Author Organization [employer] Address [address] [place] [address] Care Team Providers Care Carpenter Assistant Name Role Phone Betzaida Rocafer Primary Care Provider [phone] Christian Soria Unavailable Unavailable Encounter Details Date Type Department Care Team (Late st Contact Info) Description 11/28/2024 Telephone [facility] ADULT DENTAL [address] [place], [place] [phone] Ronak Munoz, POLLY [address] [place] [address] Social History Tobacco Use Types Packs/Day Years [...] Care Team (Late st Contact Info) Description 12/26/2024 9:00 AM EDT Office Visit [facility] ADULT DENTAL [address] [place] [address] Elis Arce 01/15/2025 10:30 AM EDT Office Visit [facility] ADULT DENTAL [address] [place] [address] Cristian Finley DDS [address] [place] [address] 01/23/2025 10:00 AM EDT Clinical Support [facility] MEDICINE [address] [place] [address] Mere Rios, HENRIK documented as of this encounter Visit Diagnoses Not on filedocumented in this encounter Additional Health Concerns Assessment Noted Time PHQ-9 Depression Total Score: 16 025 3:09 PM EDT documented as of this encounter Care Teams Carpenter Assistant Relationship Specialty Start Date End Date Zahraa Roca DO [address] [place] [id number] PCP - General Family Medicine 07/25/18 Christian Soria FNP [address] [place] [address] Nurse Practitioner Family Medicine 06/24/23 documented as of this encounter
[2024-12-25 11:10] LABS: Aminoclonazepam, GCMS Urine 151
[2024-12-25 11:11] LABS: Alphahydroxymidazolam,GCMS Ur NEGATIVE; Alphahydroxytriazolam, GCMS Ur NEGATIVE; Alprazolam, GCMS Urine NEGATIVE; Flurazepam Metabolite,GCMS Ur NEGATIVE; Lorazepam GCMS Urine NEGATIVE; Nordiazepam, GCMS Urine NEGATIVE; Oxazepam, GCMS Urine NEGATIVE; Temazepam, GCMS Urine NEGATIVE
== END 2024-12-20 16:22 | disposition home or self-care (01) ==
LOC: HO.HHCLNP 16:21
PROVIDERS: Visit Provider Family Medicine
DX: Z79.899 Other long term (current) drug therapy (principal)
CPT/HCPCS: 80346

== ENCOUNTER 2025-01-23 16:29 | Outpatient (REF) | payer MEDICARE, MEDICAID, SELFPAY ==
[2025-01-28 10:49] LABS: Lorazepam GCMS Urine NEGATIVE; Nordiazepam, GCMS Urine NEGATIVE; Oxazepam, GCMS Urine NEGATIVE
[2025-01-28 10:50] LABS: Alprazolam, GCMS Urine NEGATIVE
[2025-01-28 10:51] LABS: Alphahydroxymidazolam,GCMS Ur NEGATIVE; Alphahydroxytriazolam, GCMS Ur NEGATIVE; Temazepam, GCMS Urine NEGATIVE
[2025-01-28 10:52] LABS: Aminoclonazepam, GCMS Urine 43; Flurazepam Metabolite,GCMS Ur NEGATIVE
== END 2025-01-23 16:30 | disposition home or self-care (01) ==
LOC: HO.HHCLNP 16:29
PROVIDERS: Visit Provider Family Medicine
DX: Z79.899 Other long term (current) drug therapy (principal)
CPT/HCPCS: 80346

== ENCOUNTER 2025-01-29 10:06 | Outpatient (AMB) | payer MEDICARE, MEDICAID, SELFPAY ==
--- NOTE | 2025-01-29 10:08 | MHC.OFFVIS ---
Intake Visit Reasons: overdue 2w follow up s/p L GSV Venaseal 12/14/24 Intake Note: follow up for Left LE GSV Venaseal 12/14/24. Pt states he still has some VV on the Left LE but overall swelling has decreased. States that the right LE does have some painfull VV and swelling. Accompanied by: Self / Same As Patient Allergies No Known Allergies Allergy (Verified 01/29/25 10:12) HPI HPI overdue 2w follow up s/p L GSV Venaseal 12/14/24: Details: 54-year-old gentleman presents for follow-up regarding left great saphenous vein ablation. He was lost to follow-up and finally returned. He now presents for routine follow-up. Reports left leg is doing better pain has resolved. He does have occasional concern about the right lower extremity. It has been a source of pain and discomfort for him. He has been compliant with his compression stockings. Now presents for routine follow-up. [facility] Medical History Pneumonia Low BP Rash Family history of pseudocholinesterase deficiency Alcohol dependence in remission Hx of substance abuse Chronic right hip pain Degenerative disc disease Chronic back pain History of hepatitis C Chronic anemia Anxiety Surgical History History of left hip replacement History of total right hip arthroplasty Hx of colonoscopy History of surgery History of right inguinal hernia repair History of laminectomy Family History Mother Osteoarthritis Social History Household Members: None Housing: Apartment Housing Other:: second floor Are you a primary dialysis patient care technician to a significant other at home: No Do you presently have visiting nurse or other home services: No Alcohol intake: never Comment: Pt. refused supervision/ steady walking with crutches. Patient Tobacco Use Status: Current everyday Tobacco user Tobacco use type: Cigarette Cigarettes Per Day: 3 Years Smoked: 40 Substance Use Type: Amphetamines and Crack/Cocaine service: No Current occupational status: disabled Review of Systems Const Reports as per HPI ENT Reports no additional complaints Card Denies chest pain, Denies chest pain at rest and Denies chest pain with activity Resp Denies chest congestion and Denies cough GI Reports no additional complaints Musc Details: pain over varicosities, aching of lower extremities, swelling, cramping, heaviness and tiredness, itching Denies abnormal gait Skin/Breast Reports pruritus and Denies wounds Neuro Reports no additional complaints and Denies abnormal gait Psych Denies no additional complaints Physical Exam Const General: cooperative, healthy appearing and comfortable Orientation/consciousness: oriented to person, oriented to place and oriented to time Neck Carotids: no bruits Chest Chest palpation & inspection: normal inspection of the chest and normal palpation of entire chest wall Resp Effort & Inspection: normal respiratory effort and able to speak in complete sentences Cardio Rate: regular rate Heart sounds: S1 normal heart sound present and S2 normal heart sound present Peripheral pulses: Peripheral pulses 2+ throughout GI Inspection: Yes normal to inspection Skin Other: +2 edema, large rope-like varicosities greater than 4 mm CEAP Classification C4 - skin color changes Ep - Etiology Primary As - superficial veins P - reflux General skin exam: dry skin Neuro General: oriented to person, oriented to place and oriented to time Extrem Right lower extremity: full ROM, normal capillary refill and edema Left lower extremity: full ROM, normal capillary refill and edema Psych Mental Status: mental status grossly normal Results Reviewed Results Reviewed: Brief summary of venous insufficiency testing is as follows: right great saphenous vein: Positive right small saphenous vein: negative right accessory vein: none present left great saphenous vein: Ablated left small saphenous vein: negative left accessory vein: none present Please note there is no evidence of any venous aneurysms or significant tortuosity Assessment & Plan Assessment & Plan (1) Varicose veins of left lower extremity with inflammation: Comment: 12/14/2024 - left great saphenous vein Cyanoacralate ablation Code(s): I83.12 - Varicose veins of left lower extremity with inflammation Category: Medical Plan: Patient appears to be doing relatively well with the left will treat right (2) Varicose veins of right lower extremity with inflammation: Code(s): I83.11 - Varicose veins of right lower extremity with inflammation Category: Medical Plan: This patient has varicose veins with inflammation. They continue to be a source of discomfort for the patient. The patient has tried conservative treatment with compression, leg elevation and exercise program for over 3 months time. They have been compliant with all treatment. This has provided minimal relief for the patient. I do not anticipate this course of treatment will alter the underlying etiology. The patient has been scheduled for lower extremity venous treatment inclusive of --- right great saphenous vein Cyanoacralate ablation. Risks, benefits, and complications of this procedure has been discussed in detail with the patient including but not limited to bleeding, infection, and the development of a DVT. The patient has demonstrated a clear understanding and has consented. We will schedule the patient as soon as possible. Thank you for allowing us to participate in this patient's care. If there are any questions or concerns please do not hesitate to contact us. Coding Level of Care Code Est Pt Level 4 (78314) Complex EM visit Add On G2211 Diagnoses Varicose veins of left lower extremity with inflammation I83.12 Varicose veins of right lower extremity with inflammation I83.11
--- OUTSIDE RECORDS SUMMARY | 2025-01-29 10:52 | XMS_ITS | Encounter Summary ---
Author Organization [employer] Address [address] [place] [address] Care Team Providers Care Entry Table Operator Name Role Phone Betzaida Rocafer Primary Care Provider [phone] Christian Soria Unavailable Unavailable Encounter Details Date Type Department Care Team (Late st Contact Info) Description 11/28/2024 Telephone [facility] ADULT DENTAL [address] [place], [place] [phone] Ronak Munoz, POLLY [address] [place] [address] Social History Tobacco Use Types Packs/Day Years [...] Care Team (Late st Contact Info) Description 02/26/2025 9:30 AM EDT Clinical Support [facility] MEDICINE [address] [place] [address] Mere Rios RN documented as of this encounter Visit Diagnoses Not on filedocumented in this encounter Additional Health Concerns Assessment Noted Time PHQ-9 Depression Total Score: 16 025 3:09 PM EDT documented as of this encounter Care Teams Entry Table Operator Relationship Specialty Start Date End Date Zahraa Roca DO [address] [place] [address] PCP - General Family Medicine 07/25/18 Christian Soria FNP [address] [place] [id number] Nurse Practitioner Family Medicine 06/24/23 documented as of this encounter
== END 2025-01-29 10:30 | disposition home or self-care (01) ==
LOC: HO.HVS 10:07
PROVIDERS: PCP Family Medicine; Visit Provider Surgery Vascular Surgery
DX: I83.12 Varicose veins of left lower extremity with inflammation (principal); I83.11 Varicose veins of right lower extremity with inflammation
CPT/HCPCS: 99214; G2211

== ENCOUNTER → 2025-01-29 10:06 | Outpatient (BNVA) | payer MEDICARE, MEDICAID, SELFPAY | PROVIDERS: PCP Family Medicine; Visit Provider Surgery Vascular Surgery | DX: I83.12 Varicose veins of left lower extremity with inflammation (principal); I83.11 Varicose veins of right lower extremity with inflammation | CPT/HCPCS: 99212 ==

== ENCOUNTER 2025-03-13 10:44 | Outpatient (REF) | payer MEDICARE, MEDICAID, SELFPAY ==
--- NOTE | ~2025-03-13 | XR_ITS ---
EXAMINATION: XR FACIAL BONES CLINICAL INFORMATION: R infraorbital/ R cheek pain s/p fall 1 mos ago COMPARISON: None available. TECHNIQUE: AP, lateral, Todd and Perez projection FINDINGS: No acute cortical disruption. No gross metallic or radiopaque foreign body within the orbits. The paranasal sinuses are well pneumatized and aerated without gross air-fluid levels.. XR/XR facial bones min 3V IMPRESSION: No acute fracture based upon x-ray. No metallic or radiopaque foreign body, orbits. Electronically signed by: Boris Sears MD 03/13/2025 12:27 PM EDT
--- NOTE | ~2025-03-13 | XR_ITS ---
EXAMINATION: XR WRIST, RIGHT CLINICAL INFORMATION: R wrist swelling and pain COMPARISON: 10/05/2021. TECHNIQUE: PA, lateral, oblique, and scaphoid views of the right wrist. FINDINGS: No fracture, dislocation, or suspicious bone lesion. There is mild to moderate dorsal lunate tilt. Severe radiocarpal joint space narrowing with [id number] appearance. There is a subchondral cyst in the medial radial articular surface. Negative ulnar variance with spurring of the ulnar styloid. Prominence of the scapholunate interval measuring up to 5 mm. Scapholunate ligament injury is not excluded. Moderate osteoarthrosis in the first CMC joint and STT joints. No soft tissue abnormalities. XR/XR wrist RT min 3V IMPRESSION: 1. No acute bony findings of the right wrist. 2. Severe radiocarpal joint space loss with mild widening of the scapholunate interval. Cannot exclude scapholunate ligament injury. 3. Dorsal tilt of the lunate suggestive of DISI. 4. Degenerative arthritis of the first CMC joint and STT joints. 5. Overall worsening of arthritic findings since the 10/05/2021. Electronically signed by: Joao Pickett MD 03/13/2025 12:29 PM EDT
--- NOTE | ~2025-03-13 | XR_ITS ---
EXAMINATION: XR HAND, RIGHT CLINICAL INFORMATION: R wrist/hand pain swelling COMPARISON: October 05, 2021. TECHNIQUE: PA, lateral, and oblique views of the right hand. FINDINGS: Sclerosis and joint space narrowing along the articular surface of the radiocarpal joint with the volume loss of the scaphoid and lunate. The metacarpal bones are intact. Degenerative changes in the first metacarpophalangeal joint and the distal interphalangeal joint of the second digit and the proximal interphalangeal joint of the fifth digit. Phalanges are intact with normal alignment. No metallic or radiopaque foreign body. No subcutaneous emphysema. XR/XR hand RT min 3V IMPRESSION: Severe osteoarthrosis/osteoarthritis, radiocarpal joint and carpal/wrist. Electronically signed by: Boris Sears MD 03/13/2025 12:29 PM EDT
--- OUTSIDE RECORDS SUMMARY | 2025-03-13 12:06 | XMS_ITS | Encounter Summary ---
Author Organization [employer] Address [address] [facility] 7 [place] [address] Care Team Providers Care Heavy Media Operator Name Role Phone Zahraa Roca DO Primary Care Provider [phone] Christian Soria Unavailable Unavailable Reason for Visit * Reason Onset Date Comments PT-1 03/15/2024 Encounter Details Date Type Department Care Team ([facility] st Contact Info) Description 03/15/2024 Telephone [facility] MEDICINE [address] [place], [place] [phone] Zahraa Roca DO [address] [place], [place] [phone] PT-1 Social History Tobacco Use Types Packs/Day [...] Y/N: Yes Provider name or facility name: [facility] Facility Address: [address] [place] [address] Escort needed: Y/N: No Do you have a wheelchair: Y/N: No If yes- Manual or electric: no Visits: 3 documented in this encounter Plan of Treatment Upcoming Encounters Date Type Department Care Team (Late st Contact Info) Description 03/18/2025 10:00 AM EDT Clinical Support [facility] MEDICINE [address] [place] [address] Mere Rios, HENRIK documented as of this encounter Visit Diagnoses Not on filedocumented in this encounter Additional Health Concerns Assessment Noted Time PHQ-9 Depression Total Score: 0 11/28/19 24 11:23 AM EDT documented as of this encounter Care Teams Heavy Media Operator Relationship Specialty Start Date End Date Zahraa Roca DO [address] [place] [address] PCP - General Family Medicine 07/25/18 Christian Soria FNP [address] [place] [address] Nurse Practitioner Family Medicine 06/24/23 documented as of this encounter
[2025-03-13 12:24] LABS: MANUAL DIFF FLAG NO
[2025-03-13 12:27] LABS: Hematocrit 36.5 % (42.0-52.0); Hemoglobin 12.0 g/dl (14.0-18.0); Imm Gran Abs Auto 0.02 X10*3/uL (0.00-0.03); Imm Gran Pct Auto 0.4 % (0.0-0.4); Lymphocytes Absolute Auto 1.1 X10*3/uL (1.2-4.9); Mean Corpuscular HGB Conc 32.9 g/dl (31.0-36.0); Mean Corpuscular Hemoglobin 29.6 pg (27.0-33.0); Mean Corpuscular Volume 89.9 fL (80.0-98.0); NRBC Abs Auto 0.000 X10*3/uL (0.0-0.012); NRBC Pct Auto 0.0 /100WBC (0.0-0.2); Platelet Count 151 X10*3/uL (160-400); Red Blood Count 4.06 X10*6/uL (4.60-5.80); White Blood Count 5.2 X10*3/uL (4.8-10.8)
[2025-03-13 12:34] LABS: Hemoglobin A1C 117.7889 umol/L; Total Hemoglobin (HGBA1C) 3235.8947 umol/L
[2025-03-13 13:17] LABS: Alanine Aminotransferase 16 U/L (0-40); Albumin Level 4.1 g/dL (3.5-5.0); Alkaline Phosphatase 116 U/L (39-117); Anion Gap 11 (12-20); Aspartate Amino Transferase 25 U/L (5-37); Blood Urea Nitrogen 17 mg/dL (9-16); Calcium 8.7 mg/dL (8.4-10.2); Carbon Dioxide 27 mmol/L (22-29); Chloride 104 mmol/L (96-108); Cholesterol 150 mg/dL (<200); Estimated Glomerular Filt Rate > 60; HDL Cholesterol 48 mg/dL (>40); Potassium 4.2 mmol/L (3.3-5.1); Sodium 138 mmol/L (135-145); Total Protein 6.5 g/dL (6.5-8.0); Triglycerides 68 mg/dL (<150)
[2025-03-13 13:18] LABS: Free T4 (Free Thyroxine) 1.01 ng/dL (0.71-1.85); Thyroid Stimulating Hormone 2.23 uIU/mL (0.32-4.0)
[2025-03-14 08:47] LABS: HBS Num1 4.76 mIU/mL (0-7.99); HBsAGNum1 0.39 S/CO (0.00-0.99); HIV Num 1 0.07 S/CO (0.00-0.99); Hepatitis B Surface Antigen Negative (Negative); ~Hepatitis B Surface Antibody NONREACTIVE (Nonreactive)
[2025-03-15 13:04] LABS: HCV Log PCR <1.18 NOT DETECTED Log IU/mL (NOT DETECTED); HepC Viral Load <15 NOT DETECTED IU/mL (NOT DETECTED)
== END 2025-03-13 10:45 | disposition home or self-care (01) ==
LOC: HO.HHCL 10:44
PROVIDERS: PCP Family Medicine; Visit Provider Family Medicine
DX: Z00.00 Encounter for general adult medical examination without abnormal findings (principal); Z11.59 Encounter for screening for other viral diseases; Z11.3 Encounter for screening for infections with a predominantly sexual mode of transmission; Z11.4 Encounter for screening for human immunodeficiency virus [HIV]; K59.03 Drug induced constipation; M25.551 Pain in right hip; F41.9 Anxiety disorder, unspecified; I83.819 Varicose veins of unspecified lower extremity with pain; H43.391 Other vitreous opacities, right eye; M54.50 Low back pain, unspecified; G89.29 Other chronic pain; R51.9 Headache, unspecified; M25.531 Pain in right wrist; K76.9 Liver disease, unspecified; K76.89 Other specified diseases of liver; R79.9 Abnormal finding of blood chemistry, unspecified; R53.83 Other fatigue; Z72.89 Other problems related to lifestyle
CPT/HCPCS: 36415; 70150; 73110; 73130; 80048; 80061; 80076; 82306; 83036; 84439; 84443; 85025; 86592; 86706; 87340; 87389; 87522

== ENCOUNTER → 2025-03-13 11:12 | Outpatient (BNV) | payer MEDICARE, MEDICAID, SELFPAY | PROVIDERS: PCP Family Medicine; Visit Provider Radiology Diagnostic Radiology | DX: M19.031 Primary osteoarthritis, right wrist (principal) | CPT/HCPCS: 73110 ==

== ENCOUNTER 2025-05-06 15:59 | Outpatient (REF) | payer MEDICARE, MEDICAID, SELFPAY ==
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
--- OUTSIDE RECORDS SUMMARY | 2025-05-06 16:02 | XMS_ITS | Encounter Summary ---
Author Organization [employer] Address 75 [facility] 7 [place] [address] Care Team Providers Care Armature Rewinder Name Role Phone Zahraa Roca DO Primary Care Provider [phone] Christian Soria Unavailable Unavailable Reason for Visit * Reason Onset Date Comments PT-1 10/01/2024 Encounter Details Date Type Department Care Team (Late st Contact Info) Description 10/01/2024 Telephone [facility] MEDICINE [address] [place], [place] [phone] Zahraa Roca DO [address] [place], [place] [phone] PT-1 (/) Social History Tobacco Use Types [...] EDT Tc from pt requesting for the Real Estate Professional locations for all his Pt 1 to be changed to [address] [place] [address]. If any questions contact pt at [phone] documented in this encounter Plan of Treatment Upcoming Encounters Date Type Department Care Team (Late st Contact Info) Description 06/06/2025 10:30 AM EST Clinical Support [facility] MEDICINE [address] [place] [address] Mere Rios, HENRIK documented as of this encounter Visit Diagnoses Not on filedocumented in this encounter Additional Health Concerns Assessment Noted Time PHQ-9 Depression Total Score: 0 11/28/19 24 11:23 AM EDT documented as of this encounter Care Teams Armature Rewinder Relationship Specialty Start Date End Date Zahraa Roca DO [address] [place] [address] PCP - General Family Medicine 07/25/18 Christian Soria FNP [address] [place] [address] Nurse Practitioner Family Medicine 06/24/23 documented as of this encounter
--- OUTSIDE RECORDS SUMMARY | 2025-05-06 16:02 | XMS_ITS | Encounter Summary ---
Author Organization [employer] Address [address] [facility] [address] [place] [address] Care Team Providers Care Mud Mixer Name Role Phone AbelinoZahraa Primary Care Provider + [phone] Christian Soria Unavailable Unavailable Encounter Details Date Type Department Care Team (Late st Contact Info) Description 04/17/2024 Telephone [facility] ADULT DENTAL [address] [place] [address] Lore Vargas DDS Social History Tobacco Use Types Packs/Day Years [...] Description 06/06/2025 10:30 AM EST Clinical Support [facility] MEDICINE [address] [place] [address] Mere Rios RN documented as of this encounter Visit Diagnoses Not on filedocumented in this encounter Additional Health Concerns Assessment Noted Time PHQ-9 Depression Total Score: 0 11/28/19 24 11:23 AM EDT documented as of this encounter Care Teams Mud Mixer Relationship Specialty Start Date End Date Zahraa Roca DO [address] [place] [address] PCP - General Family Medicine 07/25/18 Christian Soria FNP [address] [place] [address] Nurse Practitioner Family Medicine 06/24/23 documented as of this encounter
--- OUTSIDE RECORDS SUMMARY | 2025-05-06 16:02 | XMS_ITS | Encounter Summary ---
Author Organization [employer] Address 75 [facility] 7t [place] [address] Care Team Providers Care Boom Man Name Role Phone AbelinoZahraa Primary Care Provider Christian Soria Unavailable Unavailable Encounter Details Date Type Department Care Team (Latest Contact Info) Description 05/06/2025 Travel Social History Tobacco Use Types Packs/Day [...] or on edge 2 04/24 10:13 AM EDT Mere Rios RN Not being able to stop or co ntrol worrying 0 05/06/2025 10:13 AM EDT Mere Rios R N Worrying too much about diff erent things 1 05/06/2025 10:13 AM EDT Mere Rios R N Trouble relaxing 3 05/06/2025 10:13 AM Mere Carson RN Being so restless that it is hard to sit still 2 05/06/2025 10:13 AM MEGHANT Mere Rios R N Becoming easily annoyed or irritable 2 04/24 10:13 AM Mere Carson RN Feeling afraid as if somethi ng awful might happen 1 05/06/2025 10:13 AM EDMere Cotto R N SIDDHARTHA-7 Total Score 11 05/06/2025 10:13 AM EDT Mere Rios RN documented as of this encounter Plan of Treatment Upcoming Encounters Date Type Department Care Team (Late st Contact Info) Description 06/06/2025 10:30 AM EST Clinical Support [facility] MEDICINE [address] [place] [phone] Mere Rios RN documented as of this encounter Visit Diagnoses Not on filedocumented in this encounter Additional Health Concerns Assessment Noted Time PHQ-9 Depression Total Score: 16 10/16/ 025 3:09 PM EDT documented as of this encounter Care Teams Boom Man Relationship Specialty Start Date End Date Zahraa Roca DO [address] [place] [address] PCP - General Family Medicine 07/25/18 Christian Soria FNP [address] [place] [address] Nurse Practitioner Family Medicine 06/24/23 documented as of this encounter
--- OUTSIDE RECORDS SUMMARY | 2025-05-06 16:02 | XMS_ITS | Encounter Summary ---
Author Organization [employer] Address 75 [facility] 7 [place] [address] Care Team Providers Care Adult Education Teacher Name Role Phone Zahraa Roca DO Primary Care Provider [phone] Christian Soria Unavailable Unavailable Reason for Visit * Reason Onset Date Comments PT1 01/03/2024 Encounter Details Date Type Department Care Team ([facility] st Contact Info) Description 01/03/2024 Telephone [facility] MEDICINE [address] [place], [place] [phone] Zahraa Roca DO [address] [place], [place] [phone] PT1 Social History Tobacco Use Types Packs/Day [...] facility name: methadone clinic Facility Address: [address] [place] [address] Escort needed: Y/N: No Do you have a wheelchair: Y/N: No If yes- Manual or electric: none Visits: 7 days a week documented in this encounter Plan of Treatment Upcoming Encounters Date Type Department Care Team ([facility] Contact Info) Description 06/06/2025 10:30 AM EST Clinical Support [facility] MEDICINE [address] [place] [address] Mere Rios RN documented as of this encounter Visit Diagnoses Not on filedocumented in this encounter Additional Health Concerns Assessment Noted Time PHQ-9 Depression Total Score: 0 11/28/19 24 11:23 AM EDT documented as of this encounter Care Teams Adult Education Teacher Relationship Specialty Start Date End Date Zahraa Roca DO [address] [place] [address] PCP - General Family Medicine 07/25/18 Christian Soria FNP [address] [place] [address] Nurse Practitioner Family Medicine 06/24/23 documented as of this encounter
--- OUTSIDE RECORDS SUMMARY | 2025-05-06 16:02 | XMS_ITS | Encounter Summary ---
Author Organization [employer] Address 75 [facility] 7 [place] [address] Care Team Providers Care Communication Spec Name Role Phone Zahraa Roca DO Primary Care Provider [phone] Christian Soria Unavailable Unavailable Reason for Visit * Reason Onset Date Comments PT-1 10/02/2024 Encounter Details Date Type Department Care Team ([facility] st Contact Info) Description 10/02/2024 Telephone [facility] MEDICINE [address] [place], [place] [phone] Zahraa Roca DO [address] [place], [place] [phone] PT-1 Social History Tobacco Use Types Packs/Day [...] status of Pt 1 Contact pt at [phone] * Telephone Encounter - Go Vasquez - 10/02/2024 9:06 AM EDT Patient calling requesting PT1 Home Address verified: Y/N: Yes Provider name or facility name: [facility] Care Resource [address] [address] Escort needed: Y/N: No Do you have a wheelchair: Y/N: No If yes- Manual or electric: Visits: (7 Days x Weekly) documented in this encounter Plan of Treatment Upcoming Encounters Date Type Department Care Team ([facility] st Contact Info) Description 06/06/2025 10:30 AM EST Clinical Support [address] [address] Mere Rios, RN documented as of this encounter Visit Diagnoses Not on filedocumented in this encounter Additional Health Concerns Assessment Noted Time PHQ-9 Depression Total Score: 0 11/28/19 24 11:23 AM EDT documented as of this encounter Care Teams Communication Spec Relationship Specialty Start Date End Date Zahraa Roca DO [address] [place] [address] PCP - General Family Medicine 07/25/18 Christian Soria FNP [address] [place] [address] Nurse Practitioner Family Medicine 06/24/23 documented as of this encounter
--- OUTSIDE RECORDS SUMMARY | 2025-05-06 16:02 | XMS_ITS | Encounter Summary ---
Author Organization [employer] Address 75 [facility] 7t [place] [address] Care Team Providers Care Senior Windows Administrator Name Role Phone AbelinoZahraa Primary Care Provider + [phone] Christian Soria Unavailable Unavailable Encounter Details Date Type Department Care Team (Late st Contact Info) Description 11/03/20[address] Orders [address] [facility] MEDICINE [address] [place] [address] Provider, MD Hiral Social History Tobacco Use [...] Description 06/06/2025 10:30 AM EST Clinical Support [facility] MEDICINE [address] [place] [address] Mere Rios RN documented as of this encounter Procedures Procedure Name Priority Date/Time Associated Diagnosis Comments COLONOSCOPY Routine 03/16/2023 9:43 AM EDT documented in this encounter Results * Hm Colonoscopy (03/16/2023 9:43 AM EDT) us Historical Provider HEALTH MAINTENANCE Final Result documented in this encounter Visit Diagnoses Not on filedocumented in this encounter Additional Health Concerns Assessment Noted Time PHQ-9 Depression Total Score: 0 09/26/19 11:23 AM EST documented as of this encounter Care Teams Senior Windows Administrator Relationship Specialty Start Date End Date Zahraa Roca DO [address] [place] [address] PCP - General Family Medicine 07/25/18 Christian Soria FNP [address] [place] [address] Nurse Practitioner Family Medicine 06/24/23 documented as of this encounter
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
--- OUTSIDE RECORDS SUMMARY | 2025-05-06 16:02 | XMS_ITS | Encounter Summary ---
Author Organization [employer] Address 75 [facility] 7 [place] [address] Care Team Providers Care Wafer Fab Operator Name Role Phone Zahraa Roca DO Primary Care Provider [phone] Christian Soria Unavailable Unavailable Reason for Visit * Reason Onset Date Comments PT-1 07/13/2024 Encounter Details Date Type Department Care Team ([facility] st Contact Info) Description 07/13/2024 Telephone [facility] MEDICINE [address] [place], [place] [phone] Zahraa Roca DO [address] [place], [place] [phone] PT-1 Social History Tobacco Use Types Packs/Day [...] Yes Provider name or facility name: [address] [facility] Escort needed: Y/N: No Do you have a wheelchair: Y/N: No If yes- Manual or electric: Visits: (3x Monthly) documented in this encounter Plan of Treatment Upcoming Encounters Date Type Department Care Team (Late st Contact Info) Description 06/06/2025 10:30 AM EST Clinical Support [facility] MEDICINE [address] [place] [address] Mere Rios, RN documented as of this encounter Visit Diagnoses Not on filedocumented in this encounter Additional Health Concerns Assessment Noted Time PHQ-9 Depression Total Score: 0 11/28/19 24 11:23 AM EDT documented as of this encounter Care Teams Wafer Fab Operator Relationship Specialty Start Date End Date Zahraa Roca DO [address] [place] [address] PCP - General Family Medicine 07/25/18 Christian Soria FNP [address] [place] [address] Nurse Practitioner Family Medicine 06/24/23 documented as of this encounter
--- OUTSIDE RECORDS SUMMARY | 2025-05-06 16:02 | XMS_ITS | Encounter Summary ---
Author Organization [employer] Address [address] [place] [address] Care Team Providers Care Publicity Consultant Name Role Phone YudiZahraa barahona Primary Care Provider [phone] Christian Soria Unavailable Unavailable Reason for Visit * Reason Onset Date Comments SIDDHARTHA scoring 05/06/2025 UTOX Pos JYOTI 05/06/2025 Encounter Details Date Type Department Care Team (Late st Contact Info) Description 05/06/2025 Telephone [facility] [address] [place] [id number] Mere Rios, HENRIK SIDDHARTHA scoring; UTOX Pos JYOTI Social History Tobacco Use Types Packs/Day Years [...] Telephone Encounter - Mere Rios RN - 05/06/2025 10:15 AM EDT 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 Reviewd UTOX results. Pt stated he has used marijuana from the street and its often laced with other things. Reviewed with patient the dangers of using drugs from the street. UTOX sent for confirmation. SIDDHARTHA-7 Total Score: 11 (05/06/2025 10:13 AM) Previous SIDDHARTHA-7 done: 09/12/2024, score: 8 documented in this encounter Plan of Treatment Upcoming Encounters Date Type Department Care Team (Late st Contact Info) Description 06/06/2025 10:30 AM EST Clinical Support [facility] [address] [place] [phone] Mere Rios, HENRIK documented as of this encounter Visit Diagnoses Not on filedocumented in this encounter Additional Health Concerns Assessment Noted Time PHQ-9 Depression Total Score: 16 10/16/ 025 3:09 PM EDT documented as of this encounter Care Teams Publicity Consultant Relationship Specialty Start Date End Date Zahraa Roca DO [address] [place] [id number] PCP - General Family Medicine 07/25/18 Christian Soria FNP [address] [place] [id number] Nurse Practitioner Family Medicine 06/24/23 documented as of this encounter
--- OUTSIDE RECORDS SUMMARY | 2025-05-06 16:02 | XMS_ITS | Clinical Summary ---
Author Organization [employer] Address [address] [facility] [address] [place] [address] Care Team Providers Care [facility]er Name Role Phone AbelinoZahraa Primary Care Provider [phone] Christian Soria Unavailable Unavailable Allergies No known [...] daily. 1 kit 10/06/19 25 026 Active docusate sodium (Colace) 100 MG capsule Take 1 capsule (100 mg) by mouth 2 times daily. 180 capsule 3 03/13/20 25 026 Active polycarbophil (Fibercon) 625 MG tablet Take 1 tablet (625 mg) by mouth 2 times daily. 180 tablet 3 03/13/20 25 026 Active polyethylene glycol, PEG, 3350 (MiraLax) 17 GM/SCOOP powder Take 17 g by mouth if needed each day (constipation) . 527 g 2 03/13/20 25 026 Active dextran 70-hypromello se (artificial tears) 0.1-0.3 % ophthalmic solution Administer 1 drop into the left eye if needed in the morning, at noon, in the evening, and at bedtime for dry eyes. 30 mL 1 03/13/20 25 026 Active amitriptyline (Elavil) 10 MG tablet Take 1 tablet (10 mg) by mouth at bedtime. 30 tablet 3 03/13/20 25 025 Active gabapentin (Neurontin) 300 MG capsule Take 1 capsule (300 mg) by mouth at bedtime. 30 capsule 3 03/13/20 25 Active methocarbamol (Robaxin) 750 MG tablet Take 1 tablet (750 mg) by mouth if needed in the morning, at noon, and at bedtime for muscle spasms. 60 tablet 3 03/14/20 25 026 Active hydrocortison e 1 % cream Apply topically if needed in the morning and at bedtime for rash or irritation. 28 g 1 03/14/20 25 Active clonazePAM (KlonoPIN) 1 MG tabletIndicat ions:Anxiety Take 1 tablet (1 mg) by mouth if needed in the morning and at bedtime for anxiety for up to 7 days. 14 tablet 05/03/20 25 025 Active acetaminophen (Tylenol 8 Hour) 650 MG ER tablet Take 1 tablet (650 mg) by mouth every 8 (eight) hours if needed for mild pain. Do not crush, chew, or split. 40 tablet 1 03/13/20 25 025 clonazePAM (KlonoPIN) 1 MG tabletIndicat ions:Anxiety TAKE 1 TABLET BY MOUTH TWICE DAILY IN THE MORNING AND AT BEDTIME NEEDED FOR ANXIETY 56 tablet 03/22/20 25 025 Discontinued(Re order (will not trigger notification to Pharmacy)) clonazePAM (KlonoPIN) 1 MG tabletIndicat ions:Anxiety Take 1 tablet (1 mg) by mouth if needed in the morning and at bedtime for anxiety for up to 14 days. 28 tablet 04/18/20 25 025 Discontinued(Re order (will not trigger notification to Pharmacy)) Active Problems Problem Noted Date Diagnosed Date Long-term current use of benzodiazepine 12/21/19 Status post left hip replacement 10/16/2024 Severe dental caries 05/03/2024 Excessive attrition of teeth, limited to enamel 05/03/2024 Bruxism (teeth grinding) 05/03/2024 History of alcohol abuse 07/07/2023 023 Degeneration of intervertebral disc 07/07/2023 07/07/2023 History of COVID-19 07/07/2023 Status post right hip replacement 02/28/2023 Opioid dependence on agonist therapy (CMS/HCC) 0 02/28/2023 History of hepatitis C 02/28/2023 History [...] Encounters Date Type Department Care Team Description 05/06/2025 9:30 AM EDT Clinical Support [facility] [address] [place] [phone] Mere Rios, RN Long-term current use of benzodiazepine (Primary Dx) 05/06/[address] [address] Mere Rios, RN SIDDHARTHA scoring; UTOX Pos JYOTI 05/06/2025 Travel 05/03/[address] [address] Zahraa Roca, Nurse Triage 05/03/[address] [address] Zahraa Roca, Anxiety 04/29/[address] [address] Mere Rios, [employer] RV today 04/18/[address] [address] Zahraa Roca, Anxiety 04/09/[address] [address] Zahraa Roca, Appointment Request 04/08/[address] [address] Zahraa Roca, Referral 03/20/[address] [address] Zahraa Roca DO Refrerral questions 03/20/[address] [address] Zahraa Roca, Anxiety 03/18/2025 3:30 PM EDT Office Visit [facility] [address] [place] [address] Tarka, Leela, OD Vitreous floaters of right eye (Primary Dx); Anatomical narrow angle of both eyes; Presbyopia 03/18/2025 Travel 03/13/2025 10:00 AM EDT Office Visit [address] [address] Zahraa Roca DO Anxiety (Primary Dx); Chronic bilateral low back pain, unspecified whether sciatica present; Chronic right hip pain; Chronic daily headache; Drug-induced constipation; Varicose veins of lower extremity with pain, unspecified laterality; Vitreous floaters of right eye; Right wrist pain; Pain of cheek; Healthcare maintenance; Other specified diseases of liver; Liver disease, unspecified; Abnormal finding of blood chemistry, unspecified; Encounter for screening for other viral diseases; Encounter for screening for infections with a predominantly sexual mode of transmission; Other fatigue; Encounter for immunization; Squamous cell carcinoma of skin of right lower extremity; Paresthesia of skin 03/13/2025 Telephone [facility] [address] [place] [address] Leela Stauffer, OD 03/13/[address] [address] Mere Rios RN Per PCP cancel B[employer]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 03/13/2025 Travel 03/12/[address] [address] Zahraa Roca DO Chart Prep 03/06/2025 Patient Outreach [address] [address] Zahraa Roca DO Pre-visit Planning (SDOH screening completed on 10/08/24 ) 03/04/[address] [address] Zahraa Roca DO PT1 02/28/[address] [address] Zahraa Roca DO Chart Prep 02/26/[address] [address] Mere Rios, [employer] SETTER RV today 02/21/[address] [address] Zahraa Roca, DO Anxiety 02/15/2025 Telephone [facility] [address] [place], [place] [phone] Zahraa Roca, DO Med Refill 02/14/2025 Refill [facility] [address] [place], [place] [phone] Zahraa Roca, DO Anxiety 02/14/2025 Telephone [facility] [address], [place] [phone] Zahraa Roca, DO Medication Question from Last 3 Months Immunizations Immunization Administration Dates Next Due Hep A, Adult 07/06/2018,11/19/2010 Hep B, adult 10/09/2014, 4,02/11/2014,12/24/2010, Pneumococcal Conjugate PCV 20 03/13/2025 Td (adult), unspecified 02/01/2000 Tdap 06/06/2024,05/14/2014 Zoster, [...] Sign Reading Time Taken Comments Blood Pressure 126/70 03/13/2025 9:44 AM EDT Pulse 65 03/13/2025 9:44 AM EDT Temperature 36.9 C (98.4 F) 03/13/2025 9:44 AM EDT Respiratory Rate 18 03/13/2025 9:44 AM EDT Oxygen Saturation 98% 03/13/2025 9:44 AM EDT Inhaled Oxygen Concentration - - Weight 79.8 kg (176 lb) 03/13/2025 9:44 AM EDT Height 177.8 cm (5' 10 ) 03/13/2025 9:44 AM EDT Body Mass Index 25.25 03/13/2025 9:44 AM EDT Plan of Treatment Upcoming Encounters Date Type Department Care Team (Late st Contact Info) Description 06/06/2025 10:30 AM EST Clinical Support [facility] [address] [place] [phone] Mere Rios, RN Health Maintenance Due Date Last Done Comments CT Colonography 1968 Dental Prophylaxis 1968 FIT DNA/Cologuard 1968 Sigmoidoscopy 1968 Derm Melanoma Skin Check 1968 FIT 07/13/2023 07/13/2022 FOBT 07/13/2023 07/13/2022 Dental Oral Exam 09/20/2024 03/19/2024 Dental X-Ray: Bitewings 03/20/2025 03/19/2024, 10/10 COVID-19 Vaccine ( season) 2025 Influenza Vaccine (#1) 2025 Depression Monitoring 04/18/2025 10/16/2024, 025 SDOH Screening 10/08/2025 10/08/2024 Alcohol/Substance Use Screening 10/16/2025 10/16/2024 Disability Screening 10/16/2025 10/16/2024 Colonoscopy 03/16/2026 03/16/2023 Colorectal Cancer Screening 03/16/2026 Tobacco Screening 03/18/2026 03/18/2025 Dental X-Ray: Full Mouth 03/20/2027 03/19/2024 Lipid Panel 03/13/2030 03/13/2025, 04/0 07/2023, 10/09/2020 DTaP/Tdap/Td Vaccines (3 - Td or Tdap) 06/06/2034 06/06/2024, 05/14/2014, 02/01/2000 RSV Patients and Patients Aged 60 years or older (1 - 1-dose 75+ series) 2043 Hepatitis B Vaccines Completed 10/09/2014, 04/22/2014, 02/11/2014, Additional history exists Hepatitis A Vaccines Completed 07/06/2018, 11/20/19 11 Zoster Vaccines Completed 03/29/2023, 06/08/2022 HIV Screening Completed 03/13/2025, 04/0 07/2023, 06/15/2022, Additional history exists Pneumococcal Vaccine: 50+ Years Completed 03/13/2025 HIB Vaccines Aged Out No longer eligi ble based on patient's age to complete this topic HPV Vaccines Aged Out No longer eligi ble based on patient's age to complete this topic IPV Vaccines Aged Out No longer eligi ble based on patient's age to complete this topic Meningococcal B Vaccine Aged Out No l onger eligible based on patient's age to complete [...] AM EDT Long-term current use of benzodiazepine CBC WITH AUTO DIFFERENTIAL Routine 03/13/2025 10:55 AM EDT Anxiety Chronic bilateral low back pain, unspecified whether sciatica present Chronic right hip pain Chronic daily headache Drug-induced constipation Varicose veins of lower extremity with pain, unspecified laterality Vitreous floaters of right eye Right wrist pain Pain of cheek Healthcare maintenance HEPATITIS C VIRAL RNA, QUANTITATIVE, REAL-TIME PCR Routine 03/13/2025 10:55 AM EDT Anxiety Chronic bilateral low back pain, unspecified whether sciatica present Chronic right hip pain Chronic daily headache Drug-induced constipation Varicose veins of lower extremity with pain, unspecified laterality Vitreous floaters of right eye Right wrist pain Pain of cheek Healthcare maintenance HEPATITIS B SURFACE ANTIBODY, QUALITATIVE Routine 03/13/2025 10:55 AM EDT Anxiety Chronic bilateral low back pain, unspecified whether sciatica present Chronic right hip pain Chronic daily headache Drug-induced constipation Varicose veins of lower extremity with pain, unspecified laterality Vitreous floaters of right eye Right wrist pain Pain of cheek Healthcare maintenance Encounter for screening for other viral diseases RPR (MONITOR) W/REFL TITER Routine 03/13/2025 10:55 AM EDT Anxiety Chronic bilateral low back pain, unspecified whether sciatica present Chronic right hip pain Chronic daily headache Drug-induced constipation Varicose veins of lower extremity with pain, unspecified laterality Vitreous floaters of right eye Right wrist pain Pain of cheek Healthcare maintenance Encounter for screening for infections with a predominantly sexual mode of transmission HIV 1/2 ANTIGEN/ANTIBODY, FOURTH GENERATION W/RFL Routine 03/13/2025 10:55 AM EDT Anxiety Chronic bilateral low back pain, unspecified whether sciatica present Chronic right hip pain Chronic daily headache Drug-induced constipation Varicose veins of lower extremity with pain, unspecified laterality Vitreous floaters of right eye Right wrist pain Pain of cheek Healthcare maintenance Other fatigue HEPATITIS B SURFACE ANTIGEN, EIA Routine 03/13/2025 10:55 AM EDT Anxiety Chronic bilateral low back pain, unspecified whether sciatica present Chronic right hip pain Chronic daily headache Drug-induced constipation Varicose veins of lower extremity with pain, unspecified laterality Vitreous floaters of right eye Right wrist pain Pain of cheek Healthcare maintenance Encounter for screening for other viral diseases BASIC METABOLIC PANEL Routine 03/13/2025 10:55 AM EDT Anxiety Chronic bilateral low back pain, unspecified whether sciatica present Chronic right hip pain Chronic daily headache Drug-induced constipation Varicose veins of lower extremity with pain, unspecified laterality Vitreous floaters of right eye Right wrist pain Pain of cheek Healthcare maintenance HEMOGLOBIN A1C Routine 03/13/2025 10:55 AM EDT Anxiety Chronic bilateral low back pain, unspecified whether sciatica present Chronic right hip pain Chronic daily headache Drug-induced constipation Varicose veins of lower extremity with pain, unspecified laterality Vitreous floaters of right eye Right wrist pain Pain of cheek Healthcare maintenance Abnormal finding of blood chemistry, unspecified HEPATIC FUNCTION PANEL Routine 10:55 AM EDT Anxiety Chronic bilateral low back pain, unspecified whether sciatica present Chronic right hip pain Chronic daily headache Drug-induced constipation Varicose veins of lower extremity with pain, unspecified laterality Vitreous floaters of right eye Right wrist pain Pain of cheek Healthcare maintenance VITAMIN D,25-OH,TOTAL,IA Routine 03/13/2025 10:55 AM EDT Anxiety Chronic bilateral low back pain, unspecified whether sciatica present Chronic right hip pain Chronic daily headache Drug-induced constipation Varicose veins of lower extremity with pain, unspecified laterality Vitreous floaters of right eye Right wrist pain Pain of cheek Healthcare maintenance Liver disease, unspecified TSH Routine 03/13/2025 10:55 AM EDT Anxiety Chronic bilateral low back pain, unspecified whether sciatica present Chronic right hip pain Chronic daily headache Drug-induced constipation Varicose veins of lower extremity with pain, unspecified laterality Vitreous floaters of right eye Right wrist pain Pain of cheek Healthcare maintenance LIPID PANEL, STANDARD Routine 03/13/2025 10:55 AM EDT Anxiety Chronic bilateral low back pain, unspecified whether sciatica present Chronic right hip pain Chronic daily headache Drug-induced constipation Varicose veins of lower extremity with pain, unspecified laterality Vitreous floaters of right eye Right wrist pain Pain of cheek Healthcare maintenance Other specified diseases of liver T4, FREE Routine 03/13/2025 10:55 AM EDT Anxiety Chronic bilateral low back pain, unspecified whether sciatica present Chronic right hip pain Chronic daily headache Drug-induced constipation Varicose veins of lower extremity with pain, unspecified laterality Vitreous floaters of right eye Right wrist pain Pain of cheek Healthcare maintenance XR FACIAL BONES 3+ VIEWS Routine 03/13/2025 10:46 AM EDT Pain of cheek XR WRIST 3+ VIEWS RIGHT Routine 03/13/2025 10:42 AM EDT Right wrist pain XR HAND 3+ VIEWS RIGHT Routine 10:40 AM EDT Right wrist pain INTRAORAL - COMPLETE SERIES OF RADIOGRAPHIC IMAGES Routine 03/19/2024 10:30 AM EDT COMPREHENSIVE ORAL EVALUATION - NEW OR ESTABLISHED PATIENT Routine 03/19/2024 10:30 AM EDT HM COLONOSCOPY Routine 03/16/2023 9:43 AM EDT [...] procedure / Unknown 05/06/2025 10:52 AM EDT Narrative Mere Rios RN - 05/06/2025 10:52 AM EDT UTOX cup Lot#[id number] Exp. 04/30/26 Internal Pass Control Zahraa Roca DO POINT OF CARE TEST ENTER/JOANNA T ORDERABLES Final Result * Vitamin D, 25-Hydroxy, Total, Immunoassay (03/13/2025 10:55 AM EDT) Vitamin D 25-OH Total 37.0 >30 ng/mL [facility] Comment: Health Based Reference Values*< 20 ng/mL Talfungsw91-82 ng/mL Insufficient> 30 ng/mL Sufficient*Sissy JONAS. N Engl J Med. 2007;357:266-280There is no well-established upper level of normal vitamin Dlevels. Some laboratories use 50 ng/mL as an upper limit ofnormal. However, toxicity is patient-dependent and may occurat any level. Careful correlation with the patient'spresentation is necessary and, if there is concern forvitamin D toxicity, treatment should be consideredirrespective of the serum level.Care must be taken in interpreting Vitamin D results fromdifferent laboratories and methodologies. Published datademonstrated that results from patients undergoinghemodialysis may show a negative bias when tested withvarious automated 25-OH vitamin D assays when compared toLC-MS/MS.When testing samples from patients whose predominant form ofVitamin D is Vitamin D2, such as patients receiving VitaminD2 supplementation, results that are subtherapeutic shouldbe confirmed with another method such as LC-MS/MS. Blood Venous blood specimen / Unknown 03/13/2025 10:55 AM EDT 03/13/2025 12:29 PM EDT Zahraa Roca DO LAB BLOOD ORDERABLES Final R esult [facility] [address] [place] [phone] * Hepatitis C Viral RNA, Quantitative, Real-Time PCR (03/13/2025 10:55 AM EDT) Pathologist [facility] Hepatitis C Viral Load <15 NOT DETECTED NOT DETECTED IU/mL [facility] HCV Log PCR <1.18 NOT DETECTED NOT DETECTED Log IU/mL [facility] Comment:For additional infor dorothy, please refer [email or web address](This link is being provided for informational/educational purposes only.)THIS TEST WAS PERFORMED AT:[facility] [place] [phone] MATHIAS MD Blood Venous blood specimen / Unknown 03/13/2025 10:55 AM EDT 03/13/2025 12:24 PM EDT Zahraa Roca DO LAB BLOOD ORDERABLES Final R esult [facility] [address] [place] [phone] * (ABNORMAL) CBC auto differential (03/13/2025 10:55 AM EDT) [facility] White Blood Count 5.2 4.8 - 10.8 X10*3/uL [facility] Red Blood Count 4.06(L) 4.60 - 5.80 X10*6/uL [facility] Hemoglobin 12.0(L) 14.0 - 18.0 g/dl [facility] Hematocrit 36.5(L) 42.0 - 52.0 % [facility] Mean Corpuscular Volume 89.9 80.0 - 98.0 fL [facility] Mean Corpuscular Hemoglobin 29.6 27.0 - 33.0 pg [facility] Mean Corpuscular HGB Conc 32.9 31.0 - 36.0 g/dl [facility] Red Cell Distribution Width 12.0 11.0 - 16.0 % [facility] Platelet Count 151(L) 160 - 400 X10*3/uL [facility] Mean Platelet Volume 11.1 9.4 - 12.4 fL [facility] Neutrophils Percent Auto 68.9 45 - 73 % [facility] Imm Gran Pct Auto 0.4 0.0 - 0.4 % [facility] Lymphocytes Percent Auto 20.9 20 - 40 % [facility] Monocytes Percent Auto 6.7 2 - 11 % [facility] Eosinophils Percent Auto 2.5 0 - 4 % [facility] Basophils Percent Auto 0.6 0 - 2 % [facility] NRBC Pct Auto 0.0 0.0 - 0.2 /100WBC [facility] Neutrophils Absolute Auto 3.6 2.0 - 8.3 x10*3/uL [facility] Imm Gran Abs Auto 0.02 0.00 - 0.03 X10*3/uL [facility] Lymphocytes Absolute Auto 1.1(L) 1.2 - 4.9 X10*3/uL [facility] Monocytes Absolute Auto 0.4 0.1 - 1.2 X10*3/uL [facility] Eosinophils Absolute Auto 0.1 0.0 - 0.4 X10*3/uL [facility] Basophils Absolute Auto 0.0 0.0 - 0.2 X10*3/uL [facility] NRBC Abs Auto 0.000 0.0 - 0.012 X10*3/uL [facility] Blood Venous blood specimen / Unknown 03/13/2025 10:55 AM EDT 03/13/2025 12:19 PM EDT us Zahraa Roca DO LAB BLOOD ORDERABLES Final R esult [facility] [address] [place] [phone] * Hepatitis B surface antigen, EIA (03/13/2025 10:55 AM EDT) Hepatitis B Surface Ag Negative Negative [facility] Blood Venous blood specimen / Unknown 03/13/2025 10:55 AM EDT 03/13/2025 12:24 PM EDT Zahraa Abelino DO LAB BLOOD ORDERABLES Final R esult Performing Organization Address [facility] Co de Phone Number [facility] [address] [place] [phone] * RPR (Monitor) with Reflex to??Titer (03/13/2025 10:55 AM EDT) RPR (Monitor) w/Refl Titer NON-REACTI VE NON-REACT OTONIEL [facility] Comment:THIS TEST WAS PERFOR MED AT:[facility] [place] [id number] MATHIAS MD Rapid Plasma Reagin Ab Titer TNP [facility] Blood Venous blood specimen / Unknown 03/13/2025 10:55 AM EDT 03/13/2025 12:24 PM EDT Zahraa Roca DO LAB BLOOD ORDERABLES Final R esult Performing Organization Address [facility] Co de Phone Number [facility] [address] [place] [phone] * HIV-1/2 Antigen and Antibodies, Fourth Generation, with Reflexes (03/13/2025 10:55 AM EDT) HIV AB/AG Nonreactive Nonreactive [facility] Comment:HIV-1 p24 Ag and/or HIV-1/HIV-2 Ab not detected.A test result that is nonreactive does not exclude thepossibility of exposure to or infection with HIV-1 and/orHIV-2. Nonreactive results in this assay for individualswith prior exposure to HIV-1 and/or HIV-2 may be due toantigen and antibody levels that are below the limit ofdetection of this assay.The 800APP HIV Ag/Ab Combo assay result andsupplemental assay results should be interpreted inconjunction with the patient's clinical presentation,history and other laboratory results. If the results areinconsistent with clinical evidence, additional testing issuggested to confirm the result. Blood Venous blood specimen / Unknown 03/13/2025 10:55 AM EDT 03/13/2025 12:24 PM EDT Zahraa Roca DO LAB BLOOD ORDERABLES Final R esult Performing Organization Address City/[facility]/ZIP Co de Phone Number [facility] [address] [place] [phone] * Hepatitis B Surface Antibody, Qualitative (03/13/2025 10:55 AM EDT) ~Hepatitis B Surface Antibody NONREACTIVE Nonreactive [facility] Comment:Nonreactive: < 8.00 mIU/mL Blood Venous blood specimen / Unknown 03/13/2025 10:55 AM EDT 03/13/2025 12:24 PM EDT Zahraa Roca DO LAB BLOOD ORDERABLES Final R esult Performing Organization Address [facility] Co de Phone Number [facility] [address] [place] [phone] * TSH (03/13/2025 10:55 AM EDT) Thyroid Stimulating Hormone 2.23 0.32 - 4.0 uIU/mL [facility] Comment:TSH 3rd Generation ( [facility]) Blood Venous blood specimen / Unknown 03/13/2025 10:55 AM EDT 03/13/2025 12:29 PM EDT Zahraa Roca DO LAB BLOOD ORDERABLES Final R esult Performing Organization Address [facility] Co de Phone Number [facility] [address] [place] [phone] * T4, Free (03/13/2025 10:55 AM EDT) Free T4 (Free Thyroxine) 1.01 0.71 - 1.85 ng/dL [facility] Blood Venous blood specimen / Unknown 03/13/2025 10:55 AM EDT 03/13/2025 12:29 PM EDT Zahraa Abelino DO LAB BLOOD ORDERABLES Final R esult [facility] [address] [place] [phone] * Hemoglobin A1c (03/13/2025 10:55 AM EDT) Pathologist [facility] Hemoglobin A1c 5.5 <6.0 % [facility] Comment:Hemoglobin A1C Refer ence Range Adults: 4.8 - 6.0 % Non diabetic: < 6.0 % Goal: < 7.0 %Additional Action Suggested: > 8.0 %Note: Hemoglobin A1c results are invalid for patients with abnormal amounts of HbF. Blood transfusions may impact the HbA1c concentration in the patient sample. Estimated Average Glucose 111 mg/dL [facility] Comment:eAG = Estimated ave rage glucose which is %A1C expressed asaverage glucose, using the formula of the F2R-SekrrxoOsxxzkr Glucose study (ADAG), Diabetes Care, Vol.31,#8,Feb. 2007 Blood Venous blood specimen / Unknown 03/13/2025 10:55 AM EDT 03/13/2025 12:19 PM EDT Zahraa Abelino DO LAB BLOOD ORDERABLES Final R esult Performing Organization Address City/[facility]/ZIP Co de Phone Number [facility] [address] [place] [phone] * Hepatic Function Panel (03/13/2025 10:55 AM EDT) Bilirubin, Total 0.3 0.0 - 1.0 mg/dL [facility] Bilirubin, Direct 0.1 0.0 - 0.5 mg/dL [facility] Aspartate Amino Transferase 25 5 - 37 U/L [facility] Alanine Aminotransferase 16 0 - 40 U/L [facility] Total Protein 6.5 6.5 - 8.0 g/dL [facility] Albumin Level 4.1 3.5 - 5.0 g/dL [facility] Alkaline Phosphatase 116 39 - 117 U/L [facility] Blood Venous blood specimen / Unknown 03/13/2025 10:55 AM EDT 03/13/2025 12:29 PM EDT us Zahraa Roca DO LAB BLOOD ORDERABLES Final R esult [facility] [address] [place] [address] [phone] * Lipid Panel, Standard (03/13/2025 10:55 AM EDT) Triglycerides 68 <150 mg/dL [facility] Comment:Desirable Triglyceri de: less than 150 mg/dLBorderline High Triglyceride 150-199 mg/dLHigh Triglyceride: 200-499 mg/dLVery High Triglyceride: greater than or equal to 5OO mg/dL Cholesterol 150 <200 mg/dL [facility] Comment:Desirable Cholestero l: less than 200 mg/dLBorderline High Cholesterol: 200-239 mg/dLHigh Cholesterol: greater than 239 mg/dL LDL Cholesterol Calculated 89 <100 mg/dL [facility] Comment:Desirable LDL: less than 100 mg/dLNear Optimal/Above Optimal LDL: 110- 129 mg/dLBorderline High LDL: 130-159 mg/dLHigh LDL: 160-189 mg/dLVery High LDL: greater than or equal to 190 mg/dL HDL Cholesterol 48 >40 mg/dL [facility] Comment:Desirable HDL: great er than 40 mg/dL Note: This HDL assay may give artificially low results in patients with liver disease. Blood Venous blood specimen / Unknown 03/13/2025 10:55 AM EDT 03/13/2025 12:29 PM EDT us Zahraa Abelino DO LAB BLOOD ORDERABLES Final R esult Performing Organization Address City/[facility]/ZIP Co de Phone Number [facility] [address] [place] [address] [phone] * (ABNORMAL) Basic Metabolic Panel (03/13/2025 10:55 AM EDT) Sodium 138 135 - 145 mmol/L [facility] Potassium 4.2 3.3 - 5.1 mmol/L [facility] Chloride 104 96 - 108 mmol/L [facility] Carbon Dioxide 27 22 - 29 mmol/L [facility] Anion Gap 11(L) 12 - 20 [facility] Urea Nitrogen (BUN) 17(H) 9 - 16 mg/dL [facility] Creatinine, Serum 0.72 0.5 - 1.4 mg/dL [facility] Estimated Glomerular Filt Rate >60 [facility] Comment:Chronic Kidney Disea se: Estimated GFR < 60 mL/min/[id number] Kidney Disease: Estimated GFR < 15 mL/min/1.73m2 Glucose 92 60 - 115 mg/dL [facility] Calcium 8.7 8.4 - 10.2 mg/dL [facility] Blood Venous blood specimen / Unknown 03/13/2025 10:55 AM EDT 03/13/2025 12:29 PM EDT us Zahraa Roca DO LAB BLOOD ORDERABLES Final R esult [facility] [address] [place] [address] [phone] * XR Facial Bones 3+ Views (03/13/2025 10:46 AM EDT) Anatomical Region Laterality Modality Head, Neck, Facial bones Radiogr aphic Imaging 03/13/2025 10:4 6 AM EDT Narrative 03/13/2025 12:30 PM EDT [address] [address] XRay Report Signed Patient: Cristobal Enriquez MR#: [id number] 54 : 1970 Acct:[id number] Age/Sex: 54 / M ADM Date: 03/13/25 Loc: [facility] Attending Dr: Zahraa Roca DO Ordering Physician: Zahraa Roca DO Date of Service: 03/13/25 Procedure(s): XR facial bones min 3V Accession Number(s): [id number] cc: Zahraa Roca DO EXAMINATION: XR FACIAL BONES CLINICAL INFORMATION: R infraorbital/ R cheek pain s/p fall 1 mos ago COMPARISON: None available. TECHNIQUE: AP, lateral, Todd and Perez projection FINDINGS: No acute cortical disruption. No gross metallic or radiopaque foreign body within the orbits. The paranasal sinuses are well pneumatized and aerated without gross air-fluid levels.. XR/XR facial bones min 3V IMPRESSION: No acute fracture based upon x-ray. No metallic or radiopaque foreign body, orbits. Electronically signed by: Boris Sears MD 03/13/2025 12:27 PM EDT Dictated By: Boris Lovett MD Signed By: <Electronically signed by Boris Bates MD in OV> 03/13/25 1227 DD/ 1046 TD/TT: 03/13/25 1100 Customer Counter Associate: Procedure Note Donotuseinterpreter, Image - 03/13/[address] [address] XRay Report Signed Patient: Cristobal Enriquez JMR#: [id number] 54 : 1970Acct:[id number] Age/Sex: 54 / MADM Date: 03/13/25 Loc: [facility] Attending Dr: Zahraa Roca DO Ordering Physician: Zahraa Roca DO Date of Service: 03/13/25 Procedure(s): XR facial bones min 3V Accession Number(s): [id number] cc: Zahraa Roca DO EXAMINATION: XR FACIAL BONES CLINICAL INFORMATION: R infraorbital/ R cheek pain s/p fall 1 mos ago COMPARISON: None available. TECHNIQUE: AP, lateral, Todd and Perez projection FINDINGS: No acute cortical disruption. No gross metallic or radiopaque foreign body within the orbits. The paranasal sinuses are well pneumatized and aerated without gross air-fluid levels.. XR/XR facial bones min 3V IMPRESSION: No acute fracture based upon x-ray. No metallic or radiopaque foreign body, orbits. Electronically signed by: Boris Sears MD 03/13/2025 12:27 PM EDT Dictated By: Boris Lovett MD Signed By: <Electronically signed by Boris Bates MDin OV> 03/13/25 1227 DD/ 1046 TD/TT: 03/13/25 1100 Customer Counter Associate: us Zahraa Roca DO IMG XR PROCEDURES Final Resu lt * XR Wrist 3+ Views Right (03/13/2025 10:42 AM EDT) Anatomical Region Laterality Modality Upper Extremities, Wrist Right Radiogr aphic Imaging 03/13/2025 10:4 2 AM EDT Narrative 03/13/2025 12:32 PM EDT [address] [address] XRay Report Signed Patient: Cristobal Enriquez MR#: [id number] 54 : 1970 Acct:[id number] Age/Sex: 54 / M ADM Date: 03/13/25 Loc: [facility] Attending Dr: Zahraa Roca DO Ordering Physician: Zahraa Roca DO Date of Service: 03/13/25 Procedure(s): XR wrist RT min 3V Accession Number(s): [id number] cc: Zahraa Roca DO EXAMINATION: XR WRIST, RIGHT CLINICAL INFORMATION: R wrist swelling and pain COMPARISON: 10/05/2021. TECHNIQUE: PA, lateral, oblique, and scaphoid views of the right wrist. FINDINGS: No fracture, dislocation, or suspicious bone lesion. There is mild to moderate dorsal lunate tilt. Severe radiocarpal joint space narrowing with qzax-fi-jcig appearance. There is a subchondral cyst in the medial radial articular surface. Negative ulnar variance with spurring of the ulnar styloid. Prominence of the scapholunate interval measuring up to 5 mm. Scapholunate ligament injury is not excluded. Moderate osteoarthrosis in the first CMC joint and STT joints. No soft tissue abnormalities. XR/XR wrist RT min 3V IMPRESSION: 1. No acute bony findings of the right wrist. 2. Severe radiocarpal joint space loss with mild widening of the scapholunate interval. Cannot exclude scapholunate ligament injury. 3. Dorsal tilt of the lunate suggestive of DISI. 4. Degenerative arthritis of the first CMC joint and STT joints. 5. Overall worsening of arthritic findings since the 10/05/2021. Electronically signed by: Joao Pickett MD 03/13/2025 12:29 PM EDT Dictated By: Joao Pickett MD Signed By: <Electronically signed by Joao Pickett MD in OV> 03/13/25 1229 DD/ 1042 TD/TT: 03/13/25 1100 Customer Counter Associate: Procedure Note Donotuseinterpreter, Image - 03/13/[address] [address] XRay Report Signed Patient: Cristobal Enriquez JMR#: [id number] 54 : 1970Acct:[id number] Age/Sex: 54 / MADM Date: 03/13/25 Loc: HO.[facility] Attending Dr: Zahraa Roca DO Ordering Physician: Zahraa Roca DO Date of Service: 03/13/25 Procedure(s): XR wrist RT min 3V Accession Number(s): [id number] cc: Zahraa Roca DO EXAMINATION: XR WRIST, RIGHT CLINICAL INFORMATION: R wrist swelling and pain COMPARISON: 10/05/2021. TECHNIQUE: PA, lateral, oblique, and scaphoid views of the right wrist. FINDINGS: No fracture, dislocation, or suspicious bone lesion. There is mild to moderate dorsal lunate tilt. Severe radiocarpal joint space narrowing with thed-kh-jeha appearance. There is a subchondral cyst in the medial radial articular surface. Negative ulnar variance with spurring of the ulnar styloid. Prominence of the scapholunate interval measuring up to 5 mm. Scapholunate ligament injury is not excluded. Moderate osteoarthrosis in the first CMC joint and STT joints. No soft tissue abnormalities. XR/XR wrist RT min 3V IMPRESSION: 1. No acute bony findings of the right wrist. 2. Severe radiocarpal joint space loss with mild widening of the scapholunate interval. Cannot exclude scapholunate ligament injury. 3. Dorsal tilt of the lunate suggestive of DISI. 4. Degenerative arthritis of the first CMC joint and STT joints. 5. Overall worsening of arthritic findings since the 10/05/2021. Electronically signed by: Joao Pickett MD 03/13/2025 12:29 PM EDT Dictated By: Joao Pickett MD Signed By: <Electronically signed by Joao Pickett MD in OV> 03/13/25 1229 DD/ 1042 TD/TT: 03/13/25 1100 Customer Counter Associate: us Zahraa Roca DO IMG XR PROCEDURES Final Resu lt * XR Hand 3+ Views Right (03/13/2025 10:40 AM EDT) Anatomical Region Laterality Modality Upper Extremities, Hand Right Radiogra phic Imaging 03/13/2025 10:4 0 AM EDT Narrative 03/13/2025 12:32 PM EDT [address] [address] XRay Report Signed Patient: Cristobal Enriquez MR#: [id number] 54 : 1970 Acct:[id number] Age/Sex: 54 / M ADM Date: 03/13/25 Loc: [facility] Attending Dr: Zahraa Roca DO Ordering Physician: Zahraa Roca DO Date of Service: 03/13/25 Procedure(s): XR hand RT min 3V Accession Number(s): [id number] cc: Zahraa Roca DO EXAMINATION: XR HAND, RIGHT CLINICAL INFORMATION: R wrist/hand pain swelling COMPARISON: October 05, 2021. TECHNIQUE: PA, lateral, and oblique views of the right hand. FINDINGS: Sclerosis and joint space narrowing along the articular surface of the radiocarpal joint with the volume loss of the scaphoid and lunate. The metacarpal bones are intact. Degenerative changes in the first metacarpophalangeal joint and the distal interphalangeal joint of the second digit and the proximal interphalangeal joint of the fifth digit. Phalanges are intact with normal alignment. No metallic or radiopaque foreign body. No subcutaneous emphysema. XR/XR hand RT min 3V IMPRESSION: Severe osteoarthrosis/osteoarthritis, radiocarpal joint and carpal/wrist. Electronically signed by: Boris Sears MD 03/13/2025 12:29 PM EDT RP Dictated By: Boris Lovett MD Signed By: <Electronically signed by Boris Bates MD in OV> 03/13/25 1229 DD/ 1040 TD/TT: 03/13/25 1100 Customer Counter Associate: Procedure Note Donotuseinterpreter, Image - 03/13/[address] [address] XRay Report Signed Patient: Cristobal Enriquez JMR#: [id number] 54 : 1970Acct:[id number] Age/Sex: 54 / MADM Date: 03/13/25 Loc: [facility] Attending Dr: Zahraa Roca DO Ordering Physician: Zahraa Roca DO Date of Service: 03/13/25 Procedure(s): XR hand RT min 3V Accession Number(s): [id number] cc: Zahraa Roca DO EXAMINATION: XR HAND, RIGHT CLINICAL INFORMATION: R wrist/hand pain swelling COMPARISON: October 05, 2021. TECHNIQUE: PA, lateral, and oblique views of the right hand. FINDINGS: Sclerosis and joint space narrowing along the articular surface of the radiocarpal joint with the volume loss of the scaphoid and lunate. The metacarpal bones are intact. Degenerative changes in the first metacarpophalangeal joint and the distal interphalangeal joint of the second digit and the proximal interphalangeal joint of the fifth digit. Phalanges are intact with normal alignment. No metallic or radiopaque foreign body. No subcutaneous emphysema. XR/XR hand RT min 3V IMPRESSION: Severe osteoarthrosis/osteoarthritis, radiocarpal joint and carpal/wrist. Electronically signed by: Boris Sears MD 03/13/2025 12:29 PM EDT RP Dictated By: Boris Lovett MD Signed By: <Electronically signed by Boris Bates MDin OV> 03/13/25 1229 DD/ 1040 TD/TT: 03/13/25 1100 Customer Counter Associate: us Zahraa Roca DO IMG XR PROCEDURES Final Resu lt * Hm Colonoscopy (03/16/2023 9:43 AM EDT) Historical Provider HEALTH MAINTENANCE Final Result * Fecal Globin by Immunochemistry (07/13/2022 12:00 AM EST) Fecal Globin By Immunochemistry SEE NOTE [employer] [facility] Propertiest Comment: FECAL GLOBIN BY IMMUNOCHEMISTRY Micro Number: [id number] Test Status: Final Specimen Source: Insure (tm) fobt test card Specimen Quality: Adequate Fecal Globin: Not Detected 07/13/2022 07/28/2022 8:2 7 AM EST us Zahraa Roca DO LAB BODY FLUIDS AND STOOLS O RDERABLES Final Result [facility] [address] [facility], [place] [address] [facility] [address] , ([address]) [place] [address] from Last 3 Months or Most Recently Relevant to Health Maintenance Insurance [facility] STANDARD MEDICARE DENTAL-[facility] MEDICAID STAND ADULT Care Teams Cone Sewer Relationship Specialty Start Date End Date Zahraa Roca DO [address] [place] [address] PCP - General Family Medicine 07/25/18 Christian Soria FNP [address] [place] [address] Nurse Practitioner Family Medicine 06/24/23
--- OUTSIDE RECORDS SUMMARY | 2025-05-06 16:02 | XMS_ITS | Encounter Summary ---
Author Organization [employer] Address [address] [facility] 7t [place] [address] Care Team Providers Care Coil Winding Machines Set Up Mechanic Name Role Phone Zahraa Roca DO Primary Care Provider [phone] Christian Soria Unavailable Unavailable Reason for Visit * Reason Onset Date Comments Med Refill 05/03/2025 Encounter Details Date Type Department Care Team (Late st Contact Info) Description 05/03/2025 Refill [facility] [address] [place], [place] [phone] Zahraa Roca DO [address] [place], [place] [phone] Anxiety Social History Tobacco Use Types Packs/Day [...] encounter Miscellaneous Notes * Telephone Encounter - Emiliana Hidalgo - 05/06/2025 8:08 AM EDT TC from patient stating that someone called him and informed him that he was all set with his medication until today's 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 However, patient stated that he has been out of medication for 4 days. * Telephone Encounter - Emiliana Hidalgo - 05/03/2025 8:17 AM EDT TC from pt requesting medication refill. Medications needing refill : clonazePAM (KlonoPIN) 1 MG tablet To be sent to: [facility] - [place], [place] - [address] [facility] Pt is complete e out of medication documented in this encounter Plan of Treatment Upcoming Encounters Date Type Department Care Team (Late st Contact Info) Description 06/06/2025 10:30 AM EST Clinical Support [facility] [address] [place] [address] Mere Rios RN documented as of this encounter Visit Diagnoses Diagnosis Anxiety Anxiety state, unspecified documented in this encounter Additional Health Concerns Assessment Noted Time PHQ-9 Depression Total Score: 16 10/16/2 025 3:09 PM EDT documented as of this encounter Care Teams Coil Winding Machines Set Up Mechanic Relationship Specialty Start Date End Date Zahraa Roca DO [address] [place] [address] PCP - General Family Medicine 07/25/18 Christian Soria FNP [address] [place] [address] Nurse Practitioner Family Medicine 06/24/23 documented as of this encounter
--- OUTSIDE RECORDS SUMMARY | 2025-05-06 16:02 | XMS_ITS | Encounter Summary ---
Author Organization [employer] Address [address] [facility] 7 [place] [address] Care Team Providers Care Jewish History Professor Name Role Phone Zahraa Roca DO Primary Care Provider [phone] Christian Soria Unavailable Unavailable Reason for Visit * Reason Onset Date Comments PT-1 03/15/2024 Encounter Details Date Type Department Care Team ([facility] st Contact Info) Description 03/15/2024 Telephone [facility] [address] [place], [place] [phone] Zahraa Roca DO [address] [place], [place] [phone] PT-1 Social History Tobacco Use Types Packs/Day [...] your housing situation today? I have valentin beualieu 03/12/[address] you li [...] Y/N: Yes Provider name or facility name: [facility] Facility Address: [address] [place] [address] Escort needed: Y/N: No Do you have a wheelchair: Y/N: No If yes- Manual or electric: no Visits: 3 documented in this encounter Plan of Treatment Upcoming Encounters Date Type Department Care Team (Late st Contact Info) Description 06/06/2025 10:30 AM EST Clinical Support [facility] [address] [place] [address] Mere Rios, HENRIK documented as of this encounter Visit Diagnoses Not on filedocumented in this encounter Additional Health Concerns Assessment Noted Time PHQ-9 Depression Total Score: 0 11/28/19 24 11:23 AM EDT documented as of this encounter Care Teams Jewish History Professor Relationship Specialty Start Date End Date Zahraa Roca DO [address] [place] [address] PCP - General Family Medicine 07/25/18 Christian Soria FNP [address] [place] [address] Nurse Practitioner Family Medicine 06/24/23 documented as of this encounter
--- OUTSIDE RECORDS SUMMARY | 2025-05-06 16:02 | XMS_ITS | Encounter Summary ---
Author Organization [employer] Address [address] [facility] 7 [place] [address] Care Team Providers Care Command And Control Officer Name Role Phone Zahraa Roca DO Primary Care Provider [phone] Christian Soria Unavailable Unavailable Reason for Visit * Reason Onset Date Comments Referral 04/08/2025 Encounter Details Date Type Department Care Team ([facility] st Contact Info) Description 04/08/2025 Telephone [facility] [address] [place], [place] [phone] Zahraa Roca DO [address] [place], [place] [phone] Referral Social History Tobacco Use Types Packs/Day Years [...] encounter Miscellaneous Notes * Telephone Encounter - Bradley Bustillos - 04/08/2025 12:28 PM EDT Tc from pt requesting a VNA referral so they can do Medication count with the pt at home. Contact pt at [phone] Pt is requesting to speak with a nurse regarding referral. documented in this encounter Plan of Treatment Upcoming Encounters Date Type Department Care Team (Late st Contact Info) Description 06/06/2025 10:30 AM EST Clinical Support [facility] [address] [place] [address] Mere Rios RN documented as of this encounter Visit Diagnoses Not on filedocumented in this encounter Additional Health Concerns Assessment Noted Time PHQ-9 Depression Total Score: 16 025 3:09 PM EDT documented as of this encounter Care Teams Command And Control Officer Relationship Specialty Start Date End Date Zahraa Roca DO [address] [place] [address] PCP - General Family Medicine 07/25/18 Christian Soria FNP [address] [place] [address] Nurse Practitioner Family Medicine 06/24/23 documented as of this encounter
--- OUTSIDE RECORDS SUMMARY | 2025-05-06 16:02 | XMS_ITS | Encounter Summary ---
Author Organization [employer] Address [address] [place] [address] 7 [place] [address] Care Team Providers Care Base Manager Name Role Phone Zahraa Roca DO Primary Care Provider [phone] Christian Soria Unavailable Unavailable Encounter Details Date Type Department Care Team (Late st Contact Info) Description 07/06/2022 Orders Only [facility] [address] [place] [address] Zahraa Andino LPN Social History Tobacco Use [...] Clinical Support [facility] [address] [place] [address] Mere Rios, RN documented as of this encounter Visit Diagnoses Not on filedocumented in this encounter Care Teams Base Manager Relationship Specialty Start Date End Date Zahraa Roca DO [address] [place] [address] PCP - General Family Medicine 07/25/18 Christian Soria FNP [address] [place] [address] Nurse Practitioner Family Medicine 06/24/23 documented as of this encounter
--- OUTSIDE RECORDS SUMMARY | 2025-05-06 16:02 | XMS_ITS | Encounter Summary ---
Author Organization [employer] Address [address] [place] [address] [address] [place] [address] Care Team Providers Care Petroleum Inspector Name Role Phone Zahraa Roca DO Primary Care Provider + [phone] Christian Soria Unavailable Unavailable Encounter Details Date Type Department Care Team (Late st Contact Info) Description 08/12/2022 Orders Only [facility] [address] [place] [address] Zahraa Andino LPN Social History Tobacco Use [...] Description 06/06/2025 10:30 AM EST Clinical Support [facility] [address] [place] [address] Mere Rios, RN documented as of this encounter Visit Diagnoses Not on filedocumented in this encounter Care Teams Petroleum Inspector Relationship Specialty Start Date End Date Zahraa Roca DO [address] [place] [address] PCP - General Family Medicine 07/25/18 Christian Soria FNP [address] [place] [address] Nurse Practitioner Family Medicine 06/24/23 documented as of this encounter
--- OUTSIDE RECORDS SUMMARY | 2025-05-06 16:02 | XMS_ITS | Encounter Summary ---
Author Organization [employer] Address [address] [facility] 7 [place] [address] Care Team Providers Care Jewel Bearing Broacher Name Role Phone Zahraa Roca DO Primary Care Provider [phone] Christian Soria Unavailable Unavailable Reason for Visit * Reason Onset Date Comments PT-1 04/17/2024 Encounter Details Date Type Department Care Team ([facility] st Contact Info) Description 04/17/2024 Telephone [facility] [address] [place], [place] [phone] Zharaa Roca DO [address] [place], [place] [phone] PT-1 Social History Tobacco Use Types Packs/Day [...] Y/N: Yes Provider name or facility name: [facility] Facility Address: [address] [place] [address] Escort needed: Y/N: No Do you have a wheelchair: Y/N: No If yes- Manual or electric: N/A Visits: Twice a month documented in this encounter Plan of Treatment Upcoming Encounters Date Type Department Care Team (Late st Contact Info) Description 06/06/2025 10:30 AM EST Clinical Support [facility] [address] [place] [address] Mere Rios RN documented as of this encounter Visit Diagnoses Not on filedocumented in this encounter Additional Health Concerns Assessment Noted Time PHQ-9 Depression Total Score: 0 11/28/19 11:23 AM EDT documented as of this encounter Care Teams Jewel Bearing Broacher Relationship Specialty Start Date End Date Zahraa Roca DO [address] [place] [address] PCP - General Family Medicine 07/25/18 Christian Soria FNP [address] [place] [address] Nurse Practitioner Family Medicine 06/24/23 documented as of this encounter
--- OUTSIDE RECORDS SUMMARY | 2025-05-06 16:02 | XMS_ITS | Encounter Summary ---
Author Organization [employer] Address [address] [facility] 7 [place] [address] Care Team Providers Care Research Neuropsychologist Name Role Phone Zahraa Roca DO Primary Care Provider [phone] Christian Soria Unavailable Unavailable Reason for Visit * Reason Onset Date Comments Appointment Request 06/19/2024 Encounter Details Date Type Department Care Team ([facility] st Contact Info) Description 06/19/2024 Telephone [facility] MEDICINE [address] [place], [place] [phone] Zahraa Roca DO [address] [place], [place] [phone] Appointment Request Social History Tobacco Use Types [...] Description 06/06/2025 10:30 AM EST Clinical Support [facility] MEDICINE [address] [place] [address] Mere Rios RN documented as of this encounter Visit Diagnoses Not on filedocumented in this encounter Additional Health Concerns Assessment Noted Time PHQ-9 Depression Total Score: 0 11/28/19 24 11:23 AM EDT documented as of this encounter Care Teams Research Neuropsychologist Relationship Specialty Start Date End Date Zahraa Roca DO [address] [place] [address] PCP - General Family Medicine 07/25/18 Christian Soria FNP [address] [place] [address] Nurse Practitioner Family Medicine 06/24/23 documented as of this encounter
--- OUTSIDE RECORDS SUMMARY | 2025-05-06 16:03 | XMS_ITS | Encounter Summary ---
Author Organization [employer] Address [address] [place] [address] 7 [place] [address] Care Team Providers Care Diesel Crane Operator Name Role Phone SuryaZahraa lee Primary Care Provider + [phone] Christian Soria Unavailable Unavailable Reason for Visit * Reason Comments Med Refill Encounter Details Date Type Department Care Team (Late st Contact Info) Description 12/19/2022 Refill [facility] MEDICINE [address] [place], [place] [phone] Christian Soria FNP Anxiety Social History Tobacco [...] 06/06/2025 10:30 AM EST Clinical Support [facility] MEDICINE [address] [place] [address] Mere Rios RN documented as of this encounter Visit Diagnoses Diagnosis Anxiety Anxiety state, unspecified documented in this encounter Additional Health Concerns Assessment Noted Time PHQ-9 Depression Total Score: 0 08/24/19 2:33 PM EST documented as of this encounter Care Teams Diesel Crane Operator Relationship Specialty Start Date End Date Zahraa Roca DO [address] [place] [address] PCP - General Family Medicine 07/25/18 Christian Soria FNP [address] [place] [address] Nurse Practitioner Family Medicine 06/24/23 documented as of this encounter
--- OUTSIDE RECORDS SUMMARY | 2025-05-06 16:03 | XMS_ITS | Encounter Summary ---
Author Organization [email or web address] Address [address] [place] [address] 7 [place] [address] Care Team Providers Care Real Estate Agency Licensee Name Role Phone Zahraa Roca DO Primary Care Provider + [phone] Christian Soria Unavailable Unavailable Encounter Details Date Type Department Care Team ([facility] Contact Info) Description 08/31/[address] [facility] MEDICINE [address] [place] [address] Zahraa Roca DO [address] [place] [address] Social History Tobacco Use Types Packs/Day Years [...] 06/06/2025 10:30 AM EST Clinical Support [facility] MEDICINE [address] [place] [address] Mere Rios RN documented as of this encounter Visit Diagnoses Not on filedocumented in this encounter Additional Health Concerns Assessment Noted Time PHQ-9 Depression Total Score: 0 08/24/19 23 2:33 PM EST documented as of this encounter Care Teams Real Estate Agency Licensee Relationship Specialty Start Date End Date Zahraa Roca DO [address] [place] [address], [place] [address] PCP - General Family Medicine 07/25/18 Christian Soria FNP 230 [place] [address] Nurse Practitioner Family Medicine 06/24/23 documented as of this encounter
--- OUTSIDE RECORDS SUMMARY | 2025-05-06 16:03 | XMS_ITS | Encounter Summary ---
Author Organization [employer] Address [address] [facility] 7t [place] [address] Care Team Providers Care Physical Therapist Technician Name Role Phone Zahraa Roca DO Primary Care Provider [phone] Christian Soria Unavailable Unavailable Reason for Visit * Reason Onset Date Comments Appt question 08/09/2024 Encounter Details Date Type Department Care Team ([facility] st Contact Info) Description 08/09/2024 Telephone [facility] MEDICINE 230 [place], [place] [phone] Zahraa Roca DO [address] [place], [place] [phone] Appt question Social History Tobacco Use Types [...] aug appt its for that. Any questions [phone] documented in this encounter Plan of Treatment Upcoming Encounters Date Type Department Care Team (Late st Contact Info) Description 06/06/2025 10:30 AM EST Clinical Support [facility] MEDICINE 230 [place] [address] Mere Rios, HENRIK documented as of this encounter Visit Diagnoses Not on filedocumented in this encounter Additional Health Concerns Assessment Noted Time PHQ-9 Depression Total Score: 0 11/28/19 24 11:23 AM EDT documented as of this encounter Care Teams Physical Therapist Technician Relationship Specialty Start Date End Date Zahraa Roca DO [address] [place] [address] PCP - General Family Medicine 07/25/18 Christian Soria FNP [address] [place] [address] Nurse Practitioner Family Medicine 06/24/23 documented as of this encounter
--- OUTSIDE RECORDS SUMMARY | 2025-05-06 16:03 | XMS_ITS | Encounter Summary ---
Author Organization [employer] Address [address] [place] [address] 7 [place] [address] Care Team Providers Care Canine Deputy Name Role Phone Zahraa Roca DO Primary Care Provider + [phone] Christian Soria Unavailable Unavailable Reason for Visit * Reason Comments Med Refill Encounter Details Date Type Department Care Team (Late st Contact Info) Description 12/31/2022 Refill [facility] MEDICINE 230 [place] [address] Christian Soria FNP Anxiety Social History Tobacco [...] Description 06/06/2025 10:30 AM EST Clinical Support [facility] MEDICINE [address] [place] [address] Mere Rios RN documented as of this encounter Visit Diagnoses Diagnosis Anxiety Anxiety state, unspecified documented in this encounter Additional Health Concerns Assessment Noted Time PHQ-9 Depression Total Score: 0 08/24/19 23 2:33 PM EST documented as of this encounter Care Teams Canine Deputy Relationship Specialty Start Date End Date Zahraa Roca DO 230 [place] [address] PCP - General Family Medicine 07/25/18 Christian Soria FNP [address] [place] [address] JANICE Merchant [address] Nurse Practitioner Family Medicine 06/24/23 documented as of this encounter
--- OUTSIDE RECORDS SUMMARY | 2025-05-06 16:03 | XMS_ITS | Encounter Summary ---
Author Organization [employer] Address [address] [place] [address] 7t [place] [address] Care Team Providers Care Industrial Hygiene Manager Name Role Phone Zahraa Roca DO Primary Care Provider + [phone] Christian Soria Unavailable Unavailable Encounter Details Date Type Department Care Team (Late Contact Info) Description 10/21/2022 Orders Only [facility] MED & PEDS [address] [place], [place] [phone] Zahraa Andino LPN Social History Tobacco Use [...] [facility] [address] [place] [address] Mere Rios RN documented as of this encounter Visit Diagnoses Not on filedocumented in this encounter Additional Health Concerns Assessment Noted Time PHQ-9 Depression Total Score: 0 08/24/19 23 2:33 PM EST documented as of this encounter Care Teams Industrial Hygiene Manager Relationship Specialty Start Date End Date Zahraa Roca DO 230 [place] [address] PCP - General Family Medicine 07/25/18 Christian Soria FNP [address] [place] [address] Nurse Practitioner Family Medicine 06/24/23 documented as of this encounter
--- OUTSIDE RECORDS SUMMARY | 2025-05-06 16:03 | XMS_ITS | Encounter Summary ---
Author Organization [employer] Address [address] [facility] 7 [place] [address] Care Team Providers Care Pelt Shearer Name Role Phone Zarhaa Roca DO Primary Care Provider [phone] Christian Soria Unavailable Unavailable Reason for Visit * Reason Onset Date Comments Appointment Request 08/03/2024 Encounter Details Date Type Department Care Team ([facility] st Contact Info) Description 08/03/2024 Telephone [facility] MEDICINE [address] [place], [place] [phone] Zahraa Roac DO [address] [place], [place] [phone] Appointment Request Social History Tobacco Use Types [...] missed appointment with dermatology. Contact pt at [phone] documented in this encounter Plan of Treatment Upcoming Encounters Date Type Department Care Team (Late st Contact Info) Description 06/06/2025 10:30 AM EST Clinical Support [facility] MEDICINE [address] [place] [address] Mere Rios RN documented as of this encounter Visit Diagnoses Not on filedocumented in this encounter Additional Health Concerns Assessment Noted Time PHQ-9 Depression Total Score: 0 11/28/19 24 11:23 AM EDT documented as of this encounter Care Teams Pelt Shearer Relationship Specialty Start Date End Date Zahraa Roca DO [address] [place] [address] PCP - General Family Medicine 07/25/18 Christian Soria FNP [address] [place] [address] Nurse Practitioner Family Medicine 06/24/23 documented as of this encounter
--- OUTSIDE RECORDS SUMMARY | 2025-05-06 16:03 | XMS_ITS | Encounter Summary ---
Author Organization [employer] Address [address] [facility] 7t [place] [address] Care Team Providers Care Materials Intern Name Role Phone Zahraa Roca DO Primary Care Provider [phone] Christian Soria Unavailable Unavailable Reason for Visit * Reason Comments Med Refill Encounter Details Date Type Department Care Team ([facility] st Contact Info) Description 02/14/2025 Refill [facility] MEDICINE [address] [place], [place] [phone] Zahraa Roca DO [address] [place], [place] [phone] Anxiety Social History Tobacco Use Types Packs/Day [...] Description 06/06/2025 10:30 AM EST Clinical Support [facility] MEDICINE [address] [place] [address] Mere Rios, HENRIK documented as of this encounter Visit Diagnoses Diagnosis Anxiety Anxiety state, unspecified documented in this encounter Additional Health Concerns Assessment Noted Time PHQ-9 Depression Total Score: 16 025 3:09 PM EDT documented as of this encounter Care Teams Materials Intern Relationship Specialty Start Date End Date Zahraa Roca DO [address] [place] [address] PCP - General Family Medicine 07/25/18 Christian Soria FNP [address] [place] [address] Nurse Practitioner Family Medicine 06/24/23 documented as of this encounter
--- OUTSIDE RECORDS SUMMARY | 2025-05-06 16:03 | XMS_ITS | Encounter Summary ---
Author Organization [employer] Address [address] [facility] 7t [place] [address] Care Team Providers Care Architectural Superintendent Name Role Phone Zahraa Roca DO Primary Care Provider + [phone] Christian Soria Unavailable Unavailable Encounter Details Date Type Department Care Team (Late st Contact Info) Description 10/10/2024 Orders Only [facility] MEDICINE [address] [place], [place] [phone] Zahraa Roca DO 230 [place] [address] Social History Tobacco Use Types Packs/Day Years [...] Description 06/06/2025 10:30 AM EST Clinical Support [facility] MEDICINE [address] [place] [address] Mere Rios RN documented as of this encounter Visit Diagnoses Not on filedocumented in this encounter Additional Health Concerns Assessment Noted Time PHQ-9 Depression Total Score: 0 11/28/19 24 11:23 AM EDT documented as of this encounter Care Teams Architectural Superintendent Relationship Specialty Start Date End Date Zahraa Roca DO [address] [place] [address] PCP - General Family Medicine 07/25/18 Christian Soria FNP [address] [place] [address] Nurse Practitioner Family Medicine 06/24/23 documented as of this encounter
--- OUTSIDE RECORDS SUMMARY | 2025-05-06 16:03 | XMS_ITS | Encounter Summary ---
Author Organization [employer] Address [address] [place] [address] 7t [place] [address] Care Team Providers Care Tumbler Plater Name Role Phone Zahraa Roca DO Primary Care Provider + [phone] Christian Soria Unavailable Unavailable Encounter Details Date Type Department Care Team (Late Contact Info) Description 09/20/2022 Orders Only [facility] CHC MED & PEDS [address] [place], [place] [phone] Zahraa Andino LPN Social History Tobacco Use [...] Description 06/06/2025 10:30 AM EST Clinical Support [facility] MEDICINE 230 [place] [address] Mere Rios RN documented as of this encounter Visit Diagnoses Not on filedocumented in this encounter Additional Health Concerns Assessment Noted Time PHQ-9 Depression Total Score: 0 08/24/19 23 2:33 PM EST documented as of this encounter Care Teams Tumbler Plater Relationship Specialty Start Date End Date Zahraa Roca DO [address] [place] [address] PCP - General Family Medicine 07/25/18 Christian Soria FNP [address] [place] [address] Nurse Practitioner Family Medicine 06/24/23 documented as of this encounter
--- OUTSIDE RECORDS SUMMARY | 2025-05-06 16:03 | XMS_ITS | Encounter Summary ---
Author Organization [employer] Address [address] [facility] 7 [place] [address] Care Team Providers Care Air Motor Repairer Name Role Phone Zahraa Roca DO Primary Care Provider [phone] Christian Soria Unavailable Unavailable Reason for Visit * Reason Onset Date Comments PT1 10/24/2024 Encounter Details Date Type Department Care Team ([facility] st Contact Info) Description 10/24/2024 Telephone [facility] MEDICINE 230 [place], [place] [phone] Zahraa Roca DO 230 [place], [place] [phone] PT1 Social History Tobacco Use Types Packs/Day [...] facility name: Mayur harrington Facility Address: [address] [facility] Escort needed: Y/N: No Do you have a wheelchair: Y/N: No If yes- Manual or electric: no Visits:3x a month for 1 year 2.)Patient calling requesting PT1 Home Address verified: Y/N: Yes Provider name or facility name: Dr latonya Christine Facility Address: [address] [facility] [address] Escort needed: Y/N: No Visits: 3x a month for 1 year 3.) Patient calling requesting PT1 Home Address verified: Y/N: Yes Provider name or facility name: Everton Lawton MD Facility Address: [address], [place] [address] Escort needed: Y/N: No Visits: 3 x a month for 1 year 4.) Patient calling requesting PT1 Home Address verified: Y/N: Yes Provider name or facility name: PCP and dental appt Facility Address: [address] [facility] [address] Escort needed: Y/N: No Visits: 4x a month for 1 year documented in this encounter Plan of Treatment Upcoming Encounters Date Type Department Care Team (Late st Contact Info) Description 06/06/2025 10:30 AM EST Clinical Support [facility] MEDICINE [address] [place] [address] Mere Rios, HENRIK documented as of this encounter Visit Diagnoses Not on filedocumented in this encounter Additional Health Concerns Assessment Noted Time PHQ-9 Depression Total Score: 16 025 3:09 PM EDT documented as of this encounter Care Teams Air Motor Repairer Relationship Specialty Start Date End Date Zahraa Roca DO [address] [place] [address] PCP - General Family Medicine 07/25/18 Christian Soria FNP [address] [place] [address] Nurse Practitioner Family Medicine 06/24/23 documented as of this encounter
--- OUTSIDE RECORDS SUMMARY | 2025-05-06 16:03 | XMS_ITS | Encounter Summary ---
Author Organization [employer] Address [address] [place] [address] 7 [place] [address] Care Team Providers Care Lead Software Tester Name Role Phone Zahraa Roca DO Primary Care Provider [phone] Christian Soria Unavailable Unavailable Reason for Visit * Reason Onset Date Comments Med Refill 12/31/2022 Encounter Details Date Type Department Care Team (Late st Contact Info) Description 12/31/2022 Telephone [facility] MEDICINE 230 [place], [place] [phone] Zahraa Roca DO 230 [place], [place] [phone] Med Refill Social History Tobacco Use Types [...] Support [facility] MEDICINE [address] [place] [address] Mere Rios, HENRIK documented as of this encounter Visit Diagnoses Not on filedocumented in this encounter Additional Health Concerns Assessment Noted Time PHQ-9 Depression Total Score: 0 08/24/19 23 2:33 PM EST documented as of this encounter Care Teams Lead Software Tester Relationship Specialty Start Date End Date Zahraa Roca DO [address] [place] [phone] PCP - General Family Medicine 07/25/18 Christian Soria FNP [address] [place] [address] Nurse Practitioner Family Medicine 06/24/23 documented as of this encounter
== END 2025-05-06 16:00 | disposition home or self-care (01) ==
LOC: HO.HHCLNP 15:59
PROVIDERS: Visit Provider Family Medicine
DX: Z51.81 Encounter for therapeutic drug level monitoring (principal); Z79.899 Other long term (current) drug therapy
CPT/HCPCS: 36415; 80353

== ENCOUNTER 2025-05-20 16:28 | Outpatient (REF) | payer MEDICARE, MEDICAID, SELFPAY ==
--- OUTSIDE RECORDS SUMMARY | 2025-05-20 11:00 | XMS_ITS | Encounter Summary ---
Author Organization [employer] Address [address] [facility] 7t [place] [address] Care Team Providers Care Data Management Associate Name Role Phone YudiZahraa barahona Primary Care Provider + [phone] Christian Soria Unavailable Unavailable Reason for Visit * Reason Comments Random FITNESS PLAN COORDINATOR RV Encounter Details Date Type Department Care Team (Latest Contact Info) Description 05/20/2025 11:00 AM EDT Clinical Support [facility] MEDICINE [address] [place] [address] Mere Rios RN Long-term current use of [...] Progress Notes * Mere Rios RN - 05/20/2025 11:00 AM EDT SUBJECTIVE: Cristobal Enriquez is a 55 y.o. year old male who presents for Random FITNESS PLAN COORDINATOR RV Preferred language for medical information: Romanian Cristobal Enriquez does report adherence to Clonazepam (Klonopin) 1 mg, take 1 tablet every 12 hours PRN, last refilled 05/13/2025. The patient last took Clonazepam (Klonopin) on: 05/20/2025 Medication effective: Yes Sleep habits: ok Therapist: Yes OBJECTIVE: PCU RN checked: 05/20/2025 Pill count not completed for Clonazepam (Klonopin), patient did not have his Clonazepam with him. Agreed to call him this afternoon for his pill count since he has not forgotten his medication before. Anticipated count should be 41 Last PCP visit: 03/13/2025 SIDDHARTHA-7 Total Score: 11 (05/06/2025 10:13 AM) Controlled substance agreement signed: Controlled Substance Agreement 09/12/2024 FITNESS PLAN COORDINATOR Tier: 1 Current Medications[1] Smoking status: Denies ETOH use: Denies Illicit substances: Denies Marijuana use: Yes , Marijuana card: No , Marijuana Acquired from: Street, dangers of obtaining marijuana from the streets was discussed Lab Results Component Value Date POCTHC Positive (A) 05/20/2025 POCCOCAINEUR Positive (A) 05/20/2025 POCOPIATEUR Negative 05/20/2025 DOAUR Negative 05/20/2025 POCAMPHETAMI Negative 05/20/2025 POCBENZODIUR Negative 05/20/2025 POCBARBSCRN Negative 05/20/2025 POCMETHADOUR Positive (A) 05/20/2025 POCBUPSCRN Negative 05/20/2025 POCTCAUR Positive (A) 05/20/2025 POCMDMAUR Negative 05/20/2025 POCOXYCODONE Negative 05/20/2025 POCPHENCYCUR Negative 05/20/2025 PROPOXUR Negative 05/20/2025 FENTANYLURIN Positive (A) 05/20/2025 Reviewed UTOX results with patient. Patent stated he's still using the same marijuana from the street that he was using during his 05/06/25 FITNESS PLAN COORDINATOR 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 Reminded patient of his 05/06/25 UTOX was also Pos for FENT & JYOTI. Explained to patient he needs to stop smoking marijuana from the streetnow. Explained I would send his UTOX out for confirmation again. Pt requesting PCP be notified thathe intends to stop smoking marijuana today. ASSESSMENT: Encounter Diagnosis Name Primary? Long-term current use of benzodiazepine Yes PLAN: Information on acupuncture given: Previously discussed Narcan education provided: Previously discussed Narcan prescription: active Will update PCP on todays UTOX results and Clonazepam count done over phone. Cristobal Enriquez will continue taking medication as prescribed and follow up at the next FITNESS PLAN COORDINATOR visit orsooner if needed. Cristobal Enriquez has verbalized understanding of care plan. Future Appointments Date Time Provider Department Center 06/03/2025 9:00 AM Mere Rios RN MEDICINE [facility] Mere Rios RN TC to patient @ 4pm, no answer. L/M asking him to call back 05/21/25 with his Clonazepam count. [1] Current Outpatient Medications: clonazePAM (KlonoPIN) 1 MG tablet, Take 1 tablet (1 mg) by mouth if needed in the morning and at bedtime for anxiety for up to 28 days. Do not start before May 13, 2025., Disp: 56 tablet, Rfl: 0 amitriptyline (Elavil) 10 MG [...] Care Team (Late st Contact Info) Description 06/03/2025 9:00 AM EST Clinical Support [address] [address] Mere Rios RN Scheduled Orders Name Type Priority Associated Diagnoses Orde r Schedule Drug Monitoring, Fentanyl, with Confirmation, Urine Lab Routine Long-term current use of benzodiazepine Ordered: 05/20/2025 Drug Monitoring, Benzodiazepines, Quantitative, Urine Lab Routine Long-term current use of benzodiazepine Ordered: 05/20/2025 Drug Monitoring, Cocaine Metabolite, Quantitative, Urine Lab Routine Long-term current use of benzodiazepine Ordered: 05/20/2025 documented as of this encounter Procedures Procedure Name Priority Date/Time Associated Diagnosis Comments POCT MARIO-14 URINE DRUG SCREEN Routine 05/20/2025 1:03 PM EDT Long-term current use of benzodiazepine METHADONE SCREEN, URINE Routine 05/20/2025 12:30 PM EDT Long-term current use of benzodiazepine documented in this encounter Results * (ABNORMAL) POCT MARIO-14 Urine Drug Screen (05/20/2025 1:03 PM EDT) THC Positive(A) Negative Cocaine Screen, Urine Positive(A) Negative Opiate Screen, Urine Negative Negative Methamphetamine Screen Urine Negative Negative Amphetamine Screen, Urine Negative Negative Benzodiazepines Screen, Urine Negative Negative Comment:FITNESS PLAN COORDINATOR pt, on Clonazepa m Barbiturate Screen, Urine Negative Negative Methadone Screen, Urine Positive(A) Negative Buprenophine Screen, Urine Negative Negative TCA, Urine Positive(A) Negative MDMA Urine Negative Negative ng/mL Oxycodone Screen, Urine Negative Negative Phencyclidine (PCP), Urine Negative Negative Propoxyphene, Urine Negative Negative Fentanyl, Urine Positive(A) Negative Urine Urine specimen obtained by clean catch procedure / Unknown 05/20/2025 1:03 PM EDT Mere Smalls RN - 05/20/2025 1:03 PM EDT UTOX cup Lot#[id number] Exp. 04/30/26 Internal Pass Control Zahraa Roca DO POINT OF CARE TEST ENTER/JOANNA T ORDERABLES Final Result * (ABNORMAL) Drug Monitoring, Methadone Metabolite, Screen, Urine (05/20/2025 12:30 PM EDT) Methadone Screen, Urine Positive( A) Not Detect ng/mL [facility] Comment:Methadone cut-off is 300 ng/mL.Positive results are unconfirmed and should not be used fornon-medical purposes. Urine (Urine, Random) 05/20/2025 12:30 PM EDT 05/20/2025 4:29 PM EDT us Zahraa Roca DO LAB URINE ORDERABLES Final R esult [facility] [address] [place] [address] [phone] documented in this encounter Visit Diagnoses Diagnosis Long-term current use of benzodiazepine- Primary documented in this encounter Additional Health Concerns Assessment Noted Time PHQ-9 Depression Total Score: 16 10/16/ 025 3:09 PM EDT documented as of this encounter Care Teams Data Management Associate Relationship Specialty Start Date End Date Zahraa Roca DO [address] [place] [address] PCP - General Family Medicine 07/25/18 Christian Soria FNP [address] [place] [address] Nurse Practitioner Family Medicine 06/24/23 documented as of this encounter
--- OUTSIDE RECORDS SUMMARY | 2025-05-20 19:15 | XMS_ITS | Encounter Summary ---
Author Organization [employer] Address [address] [facility] 7 [place] [address] Care Team Providers Care Nurse Practitioner Manager Name Role Phone Zahraa Roca DO Primary Care Provider [phone] Christian Soria Unavailable Unavailable Reason for Visit * Reason Onset Date Comments PT1 01/03/2024 Encounter Details Date Type Department Care Team ([facility] st Contact Info) Description 01/03/2024 Telephone [facility] [address] [place], [place] [phone] Zahraa Roca DO [address] [place], [place] [phone] PT1 Social History Tobacco Use Types Packs/Day [...] or facility name: meth[facility]one clinic Facility Address: [address] [place] [address] Escort needed: Y/N: No Do you have a wheelchair: Y/N: No If yes- Manual or electric: none Visits: 7 days a week documented in this encounter Plan of Treatment Upcoming Encounters Date Type Department Care Team ([facility] Contact Info) Description 06/03/2025 9:00 AM EST Clinical Support [facility] [address] [place] [address] Mere Rios RN documented as of this encounter Visit Diagnoses Not on filedocumented in this encounter Additional Health Concerns Assessment Noted Time PHQ-9 Depression Total Score: 0 11/28/19 24 11:23 AM EDT documented as of this encounter Care Teams Nurse Practitioner Manager Relationship Specialty Start Date End Date Zahraa Roca DO 230 [place] [address] PCP - General Family Medicine 07/25/18 Christian Soria FNP [address] [place] [address] Nurse Practitioner Family Medicine 06/24/23 documented as of this encounter
--- OUTSIDE RECORDS SUMMARY | 2025-05-20 19:15 | XMS_ITS | Encounter Summary ---
Author Organization [employer] Address [address] [facility] 7 [place] [address] Care Team Providers Care Sanitation Worker Cleaning Equipment Name Role Phone Zahraa Roca DO Primary Care Provider [phone] Christian Soria Unavailable Unavailable Reason for Visit * Reason Onset Date Comments PT1 10/24/2024 Encounter Details Date Type Department Care Team ([facility] st Contact Info) Description 10/24/2024 Telephone [facility] 230 [place], [place] [phone] Zahraa Roca DO 230 [place], [place] [phone] PT1 Social History Tobacco Use Types Packs/Day [...] Address: [address] [facility] Escort needed: Y/N: No Do you have a wheelchair: Y/N: No If yes- Manual or electric: no Visits:3x a month for 1 year 2.)Patient calling requesting PT1 Home Address verified: Y/N: Yes Provider name or facility name: Dr latonya Christine Facility Address: [address] [facility] [address] Escort needed: Y/N: No Visits: 3x a month for 1 year 3.) Patient calling requesting PT1 Home Address verified: Y/N: Yes Provider name or facility name: Everton Lawton MD Facility Address: [address], [place] [address] Escort needed: Y/N: No Visits: 3 x a month for 1 year 4.) Patient calling requesting PT1 Home Address verified: Y/N: Yes Provider name or facility name: PCP and dental appt Facility Address: [address] [facility] [address] Escort needed: Y/N: No Visits: 4x a month for 1 year documented in this encounter Plan of Treatment Upcoming Encounters Date Type Department Care Team (Late st Contact Info) Description 06/03/2025 9:00 AM EST Clinical Support [facility] [address] [place] [address] Mere Rios, HENRIK documented as of this encounter Visit Diagnoses Not on filedocumented in this encounter Additional Health Concerns Assessment Noted Time PHQ-9 Depression Total Score: 16 025 3:09 PM EDT documented as of this encounter Care Teams Sanitation Worker Cleaning Equipment Relationship Specialty Start Date End Date Zahraa Roca DO [address] [place] [address] PCP - General Family Medicine 07/25/18 Christian Soria FNP [address] [place] [address] Nurse Practitioner Family Medicine 06/24/23 documented as of this encounter
--- OUTSIDE RECORDS SUMMARY | 2025-05-20 19:15 | XMS_ITS | Encounter Summary ---
Author Organization [employer] Address [address] [facility] 7t [place] [address] Care Team Providers Care Die Maker Electronic Name Role Phone Zahraa Roca DO Primary Care Provider [phone] Christian Soria Unavailable Unavailable Reason for Visit * Reason Onset Date Comments Appt question 08/09/2024 Encounter Details Date Type Department Care Team ([facility] st Contact Info) Description 08/09/2024 Telephone [facility] MED[facility] 230 [place], [place] [phone] Zahraa Roca DO [address] [place], [place] [phone] Appt question Social History Tobacco Use Types [...] aug appt its for that. Any questions [phone] documented in this encounter Plan of Treatment Upcoming Encounters Date Type Department Care Team (Late st Contact Info) Description 06/03/2025 9:00 AM EST Clinical Support [facility]INE [address] [place] [address] Mere Rios, HENRIK documented as of this encounter Visit Diagnoses Not on filedocumented in this encounter Additional Health Concerns Assessment Noted Time PHQ-9 Depression Total Score: 0 11/28/19 24 11:23 AM EDT documented as of this encounter Care Teams Die Maker Electronic Relationship Specialty Start Date End Date Zahraa Roca DO [address] [place] [address] PCP - General Family Medicine 07/25/18 Christian Soria FNP [address] [place] [address] Nurse Practitioner Family Medicine 06/24/23 documented as of this encounter
--- OUTSIDE RECORDS SUMMARY | 2025-05-20 19:15 | XMS_ITS | Encounter Summary ---
Author Organization [employer] Address [address] [place] [address] 7 [place] [address] Care Team Providers Care Medical Technologist Chemistry Name Role Phone Zahraa Roca DO Primary Care Provider + [phone] Christian Soria Unavailable Unavailable Encounter Details Date Type Department Care Team (Late st Contact Info) Description 07/06/2022 Orders Only [facility] CHC MED & PEDS [address] [place] [address] Zahraa Andino LPN Social History Tobacco Use [...] Description 06/03/2025 9:00 AM EST Clinical Support [facility] MEDICINE [address] [place] [address] Mere Rios, RN documented as of this encounter Visit Diagnoses Not on filedocumented in this encounter Care Teams Medical Technologist Chemistry Relationship Specialty Start Date End Date Zahraa Roca DO [address] [place] [address] PCP - General Family Medicine 07/25/18 Christian Soria FNP [address] [place] [address] Nurse Practitioner Family Medicine 06/24/23 documented as of this encounter
--- OUTSIDE RECORDS SUMMARY | 2025-05-20 19:15 | XMS_ITS | Encounter Summary ---
Author Organization [employer] Address [address] [facility] 7 [place] [address] Care Team Providers Care Computer Network Support Specialist Name Role Phone Zahraa Roca DO Primary Care Provider [phone] Christian Soria Unavailable Unavailable Reason for Visit * Reason Onset Date Comments Appointment Request 08/03/2024 Encounter Details Date Type Department Care Team ([facility] st Contact Info) Description 08/03/2024 Telephone [facility] MED[facility]INE [address] [place], [place] [phone] Zahraa Roca DO [address] [place], [place] [phone] Appointment Request Social History Tobacco Use Types [...] missed appointment with dermatology. Contact pt at [phone] documented in this encounter Plan of Treatment Upcoming Encounters Date Type Department Care Team (Late st Contact Info) Description 06/03/2025 9:00 AM EST Clinical Support [facility] [address] [place] [address] Mere Rios RN documented as of this encounter Visit Diagnoses Not on filedocumented in this encounter Additional Health Concerns Assessment Noted Time PHQ-9 Depression Total Score: 0 11/28/19 24 11:23 AM EDT documented as of this encounter Care Teams Computer Network Support Specialist Relationship Specialty Start Date End Date Zahraa Roca DO [address] [place] [address] PCP - General Family Medicine 07/25/18 Christian oSria FNP [address] [place] [address] Nurse Practitioner Family Medicine 06/24/23 documented as of this encounter
--- OUTSIDE RECORDS SUMMARY | 2025-05-20 19:15 | XMS_ITS | Encounter Summary ---
Author Organization [employer] Address [address] [place] [address] 7t [place] [address] Care Team Providers Care Developing Machine Operator Name Role Phone Zahraa Roca DO Primary Care Provider + [phone] Christian Soria Unavailable Unavailable Encounter Details Date Type Department Care Team (Late Contact Info) Description 10/21/2022 Orders Only [facility] CHC MED & PEDS [address] [place], [place] [phone] Zahraa Andino LPN Social History Tobacco Use [...] Description 06/03/2025 9:00 AM EST Clinical Support [facility] MEDICINE 230 [place] [address] Mere Rios RN documented as of this encounter Visit Diagnoses Not on filedocumented in this encounter Additional Health Concerns Assessment Noted Time PHQ-9 Depression Total Score: 0 08/24/19 23 2:33 PM EST documented as of this encounter Care Teams Developing Machine Operator Relationship Specialty Start Date End Date Zahraa Roca DO [address] [place] [address] PCP - General Family Medicine 07/25/18 Christian Soria FNP [address] [place] [address] Nurse Practitioner Family Medicine 06/24/23 documented as of this encounter
--- OUTSIDE RECORDS SUMMARY | 2025-05-20 19:15 | XMS_ITS | Encounter Summary ---
Author Organization [employer] Address [address] [facility] 7 [place] [address] Care Team Providers Care Blend Technician Name Role Phone Zahraa Roca DO Primary Care Provider [phone] Christian Soria Unavailable Unavailable Reason for Visit * Reason Onset Date Comments Appointment Request 06/19/2024 Encounter Details Date Type Department Care Team ([facility] st Contact Info) Description 06/19/2024 Telephone [facility] MEDICINE [address] [place], [place] [phone] Zahraa Roca DO [address] [place], [place] [phone] Appointment Request Social History Tobacco Use Types [...] 9:00 AM EST Clinical Support [facility] MED[facility]INE [address] [place] [address] Mere Rios RN documented as of this encounter Visit Diagnoses Not on filedocumented in this encounter Additional Health Concerns Assessment Noted Time PHQ-9 Depression Total Score: 0 11/28/19 24 11:23 AM EDT documented as of this encounter Care Teams Blend Technician Relationship Specialty Start Date End Date Zahraa Roca DO [address] [place] [address] PCP - General Family Medicine 07/25/18 Christian Soria FNP [address] [place] [address] Nurse Practitioner Family Medicine 06/24/23 documented as of this encounter
--- OUTSIDE RECORDS SUMMARY | 2025-05-20 19:15 | XMS_ITS | Encounter Summary ---
Author Organization [employer] Address [address] [place] [address] 7 [place] [address] Care Team Providers Care Door Assembler Name Role Phone Zahraa Roca DO Primary Care Provider + [phone] Christian Soria Unavailable Unavailable Encounter Details Date Type Department Care Team ([facility] Contact Info) Description 08/31/2022 Abstract [facility] MEDICINE [address] [place] [phone] Zahraa Roca DO [address] [place] [address] Social History Tobacco Use Types Packs/Day Years [...] Description 06/03/2025 9:00 AM EST Clinical Support [facility] [address] [place] [address] Mere Rios RN documented as of this encounter Visit Diagnoses Not on filedocumented in this encounter Additional Health Concerns Assessment Noted Time PHQ-9 Depression Total Score: 0 08/24/19 23 2:33 PM EST documented as of this encounter Care Teams Door Assembler Relationship Specialty Start Date End Date Zahraa Roca DO [address] [place] [address], [place] [address] PCP - General Family Medicine 07/25/18 Christian Soria FNP [address] [place] [address] Nurse Practitioner Family Medicine 06/24/23 documented as of this encounter
--- OUTSIDE RECORDS SUMMARY | 2025-05-20 19:15 | XMS_ITS | Encounter Summary ---
Author Organization [employer] Address [address] [place] [address] 7 [place] [address] Care Team Providers Care Multiple Needle Stitcher Name Role Phone Zahraa Roca DO Primary Care Provider + [phone] Christian Soria Unavailable Unavailable Encounter Details Date Type Department Care Team (Late st Contact Info) Description 08/12/2022 Orders Only [facility] CHC MED & PEDS [address] [place] [address] Zahraa Andino LPN Social History Tobacco Use [...] Description 06/03/2025 9:00 AM EST Clinical Support [facility] 230 [place] [address] Mree Rios, RN documented as of this encounter Visit Diagnoses Not on filedocumented in this encounter Care Teams Multiple Needle Stitcher Relationship Specialty Start Date End Date Zahraa Roca DO [address] [place] [address] PCP - General Family Medicine 07/25/18 Christian oSria FNP [address] [place] [address] Nurse Practitioner Family Medicine 06/24/23 documented as of this encounter
--- OUTSIDE RECORDS SUMMARY | 2025-05-20 19:15 | XMS_ITS | Encounter Summary ---
Author Organization [employer] Address [address] [facility] [address] 7[address] [place] [address] Care Team Providers Care Retail Wireless Sales Consultant Name Role Phone AbelinoZahraa Primary Care Provider + [phone] Christian Soria Unavailable Unavailable Encounter Details Date Type Department Care Team (Late st Contact Info) Description 04/17/2024 Telephone [facility] [address] [place] [address] Lore Vargas DDS Social History Tobacco Use [...] AM EST Clinical Support [facility] [address] [place] [address] Mere Rios RN documented as of this encounter Visit Diagnoses Not on filedocumented in this encounter Additional Health Concerns Assessment Noted Time PHQ-9 Depression Total Score: 0 11/28/19 24 11:23 AM EDT documented as of this encounter Care Teams Retail Wireless Sales Consultant Relationship Specialty Start Date End Date Zahraa Roca DO 230 [place] [address] PCP - General Family Medicine 07/25/18 Christian Soria FNP [address] [place] [address] Nurse Practitioner Family Medicine 06/24/23 documented as of this encounter
--- OUTSIDE RECORDS SUMMARY | 2025-05-20 19:15 | XMS_ITS | Clinical Summary ---
Author Organization [employer] Address [address] [facility] [address] [place] [address] Care Team Providers Care Business Dean Name Role Phone AbelinoZahraa Primary Care Provider [phone] Christian Soria Unavailable Unavailable Allergies No known [...] days. Do not start before May 13, 2025. 56 tablet 05/13/20 25 025 Active clonazePAM (KlonoPIN) 1 MG [...] 7 days. 14 tablet 05/03/20 25 025 Discontinued(Re order (will not trigger [...] any issues or concerns, he should contact [facility]. All his questions were answered. He [...] Encounters Date Type Department Care Team Description 05/20/2025 11:00 AM EDT Clinical Support [facility] [address] [place] [address] Mere Rios, HENRIK Long-term current use of benzodiazepine (Primary Dx) 05/20/[address] [address] Mere Rios, RN Clonazepam count 05/20/[address] [address] Mere Rios, HENRIK Random TRAY PACKER RV today; UTOX Pos JYOTI, FENT, Neg BZO 05/20/2025 Travel 05/20/[address] [address] Zahraa Roca DO Appointment Request 05/14/2025 Outside Procedure [facility] [address] [place] [address] Gama, Aniyah, OD Presbyopia (Primary Dx) 05/09/2025 Refill [facility] [address] [place] [address] Zahraa Roca DO Anxiety 05/09/[address] [address] Zahraa oRca DO Anxiety 05/06/2025 1:00 PM EDT Office Visit [facility] [address] [place] [address] Gama, Aniyah, OD Hyperopia of both eyes (Primary Dx) 05/06/2025 9:30 AM EDT Clinical Support [facility] [address] [place] [phone] Mere Rios, RN Long-term current use of benzodiazepine (Primary Dx) 05/06/2025 Telephone [facility] [address] [place] [address] Mere Rios, HENRIK SIDDHARTHA scoring; UTOX Pos JYOTI 05/06/2025 Travel 05/03/[address] [address] Zahraa Roca DO Nurse Triage 05/03/2025 Refill [facility] [address] [place] [address] [place] [address] Zahraa Roca DO Anxiety 04/29/[address] [address] Mere Rios RN NCNS TRAY PACKER RV today 04/18/2025 Refill [facility] [address] [place] [address] Zahraa Roca DO Anxiety 04/09/[address] [address] Zahraa Roca DO Appointment Request 04/08/[address] [address] Zahraa Roca, Referral 03/20/[address] [address] Zahraa Roca DO Refrerral questions 03/20/[address] [address] Zahraa Roca DO Anxiety 03/18/2025 3:30 PM EDT Office Visit [facility] [address] [place] [address] Leela Stauffer, OD Vitreous floaters of right eye (Primary Dx); Anatomical narrow angle of both eyes; Presbyopia 03/18/2025 Travel 03/13/2025 10:00 AM EDT Office Visit [facility] [address] [place] [address] Zahraa Roca DO Anxiety (Primary Dx); Chronic [...] lower extremity; Paresthesia of skin 03/13/2025 Telephone [facility] [address] [place] [address] Leela Stauffer, OD 03/13/2025 Telephone [facility] [address] [place] [address] Mere Rios, HENRIK Per PCP cancel TRAY PACKER this month 03/13/2025 Travel 03/12/[address] [address] Zahraa Roca DO Chart Prep 03/06/2025 Patient Outreach [address] [address] Zahraa Roca DO Pre-visit Planning (SDOH screening completed on 10/08/24 ) 03/04/[address] [address] Zahraa Roca DO PT1 02/28/[address] [address] Zahraa Roca DO Chart Prep 02/26/[address] [address] Mere Rios, HENRIK NCNS TRAY PACKER RV today 02/21/[address] [address] Zahraa Roca, Anxiety from Last 3 Months Immunizations Immunization Administration [...] Description 06/03/2025 9:00 AM EST Clinical Support [facility] [address] [place] [address] Mere Rios, RN Health Maintenance Due Date [...] PM EDT Long-term current use of benzodiazepine POCT MARIO-14 URINE DRUG SCREEN Routine 05/06/2025 10:52 AM EDT Long-term current use of benzodiazepine DRUG MONITOR, COCAINE METAB, QN, URINE Routine 05/06/2025 10:45 AM EDT Long-term current use of benzodiazepine [...] Urine Drug Screen (05/20/2025 1:03 PM EDT) Only the most recent of2 resultswithin the time period is included. THC Positive(A) Negative Cocaine Screen, Urine Positive(A) Negative Opiate Screen, Urine Negative Negative Methamphetamine Screen Urine Negative Negative Amphetamine Screen, Urine Negative Negative Benzodiazepines Screen, Urine Negative Negative Comment:TRAY PACKER pt, on Clonazepa m Barbiturate Screen, Urine Negative Negative Methadone Screen, Urine Positive(A) Negative Buprenophine Screen, Urine Negative Negative TCA, Urine Positive(A) Negative MDMA Urine Negative Negative ng/mL Oxycodone Screen, Urine Negative Negative Phencyclidine (PCP), Urine Negative Negative Propoxyphene, Urine Negative Negative Fentanyl, Urine Positive(A) Negative Urine Urine specimen obtained by clean catch procedure / Unknown 05/20/2025 1:03 PM EDT Mere Smalls, HENRIK - 05/20/2025 1:03 PM EDT UTOX cup Lot#[id number] Exp. 04/30/26 Internal Pass Control Zahraa Roca DO POINT OF CARE TEST ENTER/JOANNA T ORDERABLES Final Result * (ABNORMAL) Drug Monitoring, Methadone Metabolite, Screen, Urine (05/20/2025 12:30 PM EDT) Methadone Screen, Urine Positive( A) Not Detect ng/mL [facility] Comment:Methadone cut-off is 300 ng/mL.Positive results are unconfirmed and should not be used fornon-medical purposes. Urine (Urine, Random) 05/20/2025 12:30 PM EDT 05/20/2025 4:29 PM EDT Zahraa Roca DO LAB URINE ORDERABLES Final R esult [facility] [address] [place] [address] [phone] * Drug Monitoring, Cocaine Metabolite, Quantitative, Urine (05/06/2025 10:45 AM EDT) Benzoylecgonine 4348 [facility] Comment:CUTOFF 100 NG/MLPERF ORMING SITE:[facility] [employer] [facility], [address] [place] [phone] Manager Fine: SOCRATES MATHIAS MD, CLIA:[id number] Cocaine Comments SEE NOTE [facility] Comment:NOTES AND COMMENTSTh is drug testing is for medical treatment only. Analysiswas performed as non-forensic testing and these resultsshould be used only by healthcare providers to renderdiagnosis or treatment, or to monitor progress of medicalconditions.Cocaine Notes:Benzoylecgonine detected is consistent with the use of thedrug Cocaine.LDT Notes:Confirmation tests were developed and their analyticalperformance characteristics have been determined by [employer]. It has not been cleared or approved by the FDA.This assay has been validated pursuant to the CLIAregulations and is used for clinical purposes.Healthcare Providers needing Interpretation assistance,please contact us at [phone] ( ) M-F,8am to 10pm EST Urine (Urine, Random) 05/06/2025 10:45 AM EDT 05/06/2025 4:00 PM EDT Zahraa Roca DO LAB URINE ORDERABLES Final R esult Performing Organization Address City/[facility]/ZIP Co de Phone Number [facility] [address] [place] [phone] * Vitamin D, 25-Hydroxy, Total, Immunoassay (03/13/2025 10:55 AM EDT) Vitamin D 25-OH Total 37.0 >30 ng/mL [facility] Comment: Health Based Reference Values*< 20 ng/mL Koxhmcaep44-62 ng/mL Insufficient> 30 ng/mL Sufficient*Sissy JONAS. N [...] ORDERABLES Final R esult Performing Organization Address [facility]/ZIP Co de Phone Number [facility] [address] [place] [phone] * Hepatitis C Viral RNA, Quantitative, Real-Time PCR (03/13/2025 10:55 AM EDT) Hepatitis C Viral Load <15 NOT DETECTED NOT DETECTED IU/mL [facility] HCV Log PCR <1.18 NOT DETECTED NOT DETECTED Log IU/mL [facility] Comment:For additional infor dorothy, please refer tohttp://education.Runteq/faq/TNV86r6(This link is being provided for informational/educational purposes only.)THIS TEST WAS PERFORMED AT:[facility] [place] [phone] MATHIAS MD Blood Venous blood specimen / Unknown 03/13/2025 10:55 AM EDT 03/13/2025 12:24 PM EDT us Zahraa Roca DO LAB BLOOD ORDERABLES Final R esult [facility] [address] [place] [phone] * (ABNORMAL) CBC auto differential (03/13/2025 10:55 AM EDT) White Blood Count 5.2 4.8 - 10.8 X10*3/uL [facility] Red Blood Count 4.06(L) 4.60 - 5.80 X10*6/uL [facility] Hemoglobin 12.0(L) 14.0 - 18.0 g/dl [facility] Hematocrit 36.5(L) 42.0 - 52.0 % [facility] Mean Corpuscular Volume 89.9 80.0 - 98.0 fL [facility] Mean Corpuscular Hemoglobin 29.6 27.0 - 33.0 pg [facility] Mean Corpuscular HGB Conc 32.9 31.0 - 36.0 g/dl [facility] Red Cell Distribution Width 12.0 11.0 - 16.0 % [facility] Platelet Count 151(L) 160 - 400 X10*3/uL [facility] Mean Platelet Volume 11.1 9.4 - 12.4 fL [facility] Neutrophils Percent Auto 68.9 45 - 73 % [facility] Imm Gran Pct Auto 0.4 0.0 - 0.4 % [facility] Lymphocytes Percent Auto 20.9 20 - 40 % [facility] Monocytes Percent Auto 6.7 2 - 11 % [facility] Eosinophils Percent Auto 2.5 0 - 4 % [facility] Basophils Percent Auto 0.6 0 - 2 % [facility] NRBC Pct Auto 0.0 0.0 - 0.2 /100WBC [facility] Neutrophils Absolute Auto 3.6 2.0 - 8.3 x10*3/uL [facility] Imm Gran Abs Auto 0.02 0.00 - 0.03 X10*3/uL [facility] Lymphocytes Absolute Auto 1.1(L) 1.2 - 4.9 X10*3/uL [facility] Monocytes Absolute Auto 0.4 0.1 - 1.2 X10*3/uL [facility] Eosinophils Absolute Auto 0.1 0.0 - 0.4 X10*3/uL [facility] Basophils Absolute Auto 0.0 0.0 - 0.2 X10*3/uL [facility] NRBC Abs Auto 0.000 0.0 - 0.012 X10*3/uL [facility] Blood Venous blood specimen / Unknown 03/13/2025 10:55 AM EDT 03/13/2025 12:19 PM EDT Zahraa Roca DO LAB BLOOD ORDERABLES Final R esult Performing Organization Address City/[facility]/ZIP Co de Phone Number [facility] [address] [place] [phone] * Hepatitis B surface antigen, EIA (03/13/2025 10:55 AM EDT) Hepatitis B Surface Ag Negative Negative [facility] Blood Venous blood specimen / Unknown 03/13/2025 10:55 AM EDT 03/13/2025 12:24 PM EDT Zahraa Roca WOMN LAB BLOOD ORDERABLES Final R esult [facility] [address] [place] [address] [phone] * RPR (Monitor) with Reflex to??Titer (03/13/2025 10:55 AM EDT) RPR (Monitor) w/Refl Titer NON-REACTI VE NON-REACT OTONIEL [facility] Comment:THIS TEST WAS PERFOR MED AT:[facility] [place] [phone] MATHIAS MD Rapid Plasma Reagin Ab Titer TNP [facility] Blood Venous blood specimen / Unknown 03/13/2025 10:55 AM EDT 03/13/2025 12:24 PM EDT Zahraa Roca DO LAB BLOOD ORDERABLES Final R esult Performing Organization Address [facility] de Phone Number [facility] [address] [place] [address] [phone] * HIV-1/2 Antigen and Antibodies, Fourth Generation, with Reflexes (03/13/2025 10:55 AM EDT) Pathologist [facility] [place] HIV AB/AG Nonreactive Nonreactive [facility] Comment:HIV-1 p24 Ag and/or HIV-1/HIV-2 Ab not detected.A test result that is nonreactive does not exclude thepossibility of exposure to or infection with HIV-1 and/orHIV-2. Nonreactive results in this assay for individualswith prior exposure to HIV-1 and/or HIV-2 may be due toantigen and antibody levels that are below the limit ofdetection of this assay.[employer] HIV Ag/Ab Combo assay result andsupplemental assay results should be interpreted inconjunction with the patient's clinical presentation,history and other laboratory results. If the results areinconsistent with clinical evidence, additional testing issuggested to confirm the result. Blood Venous blood specimen / Unknown 03/13/2025 10:55 AM EDT 03/13/2025 12:24 PM EDT Zahraa Roca DO LAB BLOOD ORDERABLES Final R esult Performing Organization Address [facility]/ZIP Co de Phone Number [facility] [address] [place] [phone] * Hepatitis B Surface Antibody, Qualitative (03/13/2025 10:55 AM EDT) ~Hepatitis B Surface Antibody NONREACTIVE Nonreactive [facility] Comment:Nonreactive: < 8.00 mIU/mL Blood Venous blood specimen / Unknown 03/13/2025 10:55 AM EDT 03/13/2025 12:24 PM EDT Zahraa Roca DO LAB BLOOD ORDERABLES Final R esult Performing Organization Address [facility] Co de Phone Number [facility] [address] [place] [phone] * TSH (03/13/2025 10:55 AM EDT) Pathologist [facility] Thyroid Stimulating Hormone 2.23 0.32 - 4.0 uIU/mL [facility] Comment:TSH 3rd Generation ( [facility]) Blood Venous blood specimen / Unknown 03/13/2025 10:55 AM EDT 03/13/2025 12:29 PM EDT Zahraa Roca DO LAB BLOOD ORDERABLES Final R esult Performing Organization Address [facility] Co de Phone Number [facility] [address] [place] [phone] * T4, Free (03/13/2025 10:55 AM EDT) Free T4 (Free Thyroxine) 1.01 0.71 - 1.85 ng/dL [facility] Blood Venous blood specimen / Unknown 03/13/2025 10:55 AM EDT 03/13/2025 12:29 PM EDT us Zahraa Roca DO LAB BLOOD ORDERABLES Final R esult Performing Organization Address City/[facility]/ZIP Co de Phone Number [facility] [address] [place] [phone] * Hemoglobin A1c (03/13/2025 10:55 AM EDT) Hemoglobin A1c 5.5 <6.0 % [facility] Comment:Hemoglobin A1C Refer ence Range Adults: 4.8 - 6.0 % Non diabetic: < 6.0 % Goal: < 7.0 %Additional Action Suggested: > 8.0 %Note: Hemoglobin A1c results are invalid for patients with abnormal amounts of HbF. Blood transfusions may impact the HbA1c concentration in the patient sample. Estimated Average Glucose 111 mg/dL [facility] Comment:eAG = Estimated ave rage glucose which is %A1C expressed asaverage glucose, using the formula of the E0Q-QpygafsSuqogfw Glucose study (ADAG), Diabetes Care, Vol.31,#8,Feb. 2007 Blood Venous blood specimen / Unknown 03/13/2025 10:55 AM EDT 03/13/2025 12:19 PM EDT us Zahraa Roca DO LAB BLOOD ORDERABLES Final R esult Performing Organization Address City/[facility]/ZIP Co de Phone Number [facility] [address] [place] [phone] * Hepatic Function Panel (03/13/2025 10:55 AM EDT) Bilirubin, Total 0.3 0.0 - 1.0 mg/dL [facility] Bilirubin, Direct 0.1 0.0 - 0.5 mg/dL [facility] Aspartate Amino Transferase 25 5 - 37 U/L [facility] Alanine Aminotransferase 16 0 - 40 U/L [facility] Total Protein 6.5 6.5 - 8.0 g/dL [facility] Albumin Level 4.1 3.5 - 5.0 g/dL [facility] Alkaline Phosphatase 116 39 - 117 U/L [facility] Blood Venous blood specimen / Unknown 03/13/2025 10:55 AM EDT 03/13/2025 12:29 PM EDT Zahraa Roca DO LAB BLOOD ORDERABLES Final R esult Performing Organization Address [facility] Co de Phone Number [facility] [address] [place] [phone] * Lipid Panel, Standard (03/13/2025 10:55 AM EDT) Triglycerides 68 <150 mg/dL [facility] Comment:Desirable Triglyceri de: less than 150 mg/dLBorderline High Triglyceride 150-199 mg/dLHigh Triglyceride: 200-499 mg/dLVery High Triglyceride: greater than or equal to 5OO mg/dL Cholesterol 150 <200 mg/dL [facility] Comment:Desirable Cholestero l: less than 200 mg/dLBorderline High Cholesterol: 200-239 mg/dLHigh Cholesterol: greater than 239 mg/dL LDL Cholesterol Calculated 89 <100 mg/dL [facility] Comment:Desirable LDL: less than 100 mg/dLNear Optimal/Above Optimal LDL: 110- 129 mg/dLBorderline High LDL: 130-159 mg/dLHigh LDL: 160-189 mg/dLVery High LDL: greater than or equal to 190 mg/dL HDL Cholesterol 48 >40 mg/dL [facility] Comment:Desirable HDL: great er than 40 mg/dL Note: This HDL assay may give artificially low results in patients with liver disease. Blood Venous blood specimen / Unknown 03/13/2025 10:55 AM EDT 03/13/2025 12:29 PM EDT Zahraa Roca DO LAB BLOOD ORDERABLES Final R esult Performing Organization Address [facility]/ZIP Co de Phone Number [facility] [address] [place] [phone] * (ABNORMAL) Basic Metabolic Panel (03/13/2025 10:55 AM EDT) Sodium 138 135 - 145 mmol/L [facility] Potassium 4.2 3.3 - 5.1 mmol/L [facility] Chloride 104 96 - 108 mmol/L [facility] Carbon Dioxide 27 22 - 29 mmol/L [facility] Anion Gap 11(L) 12 - 20 [facility] Urea Nitrogen (BUN) 17(H) 9 - 16 mg/dL [facility] Creatinine, Serum 0.72 0.5 - 1.4 mg/dL [facility] Estimated Glomerular Filt Rate >60 [facility] Comment:Chronic Kidney Disea se: Estimated GFR < 60 mL/min/1.06p9Fcbxmf Kidney Disease: Estimated GFR < 15 mL/min/1.73m2 Glucose 92 60 - 115 mg/dL [facility] Calcium 8.7 8.4 - 10.2 mg/dL [facility] Blood Venous blood specimen / Unknown 03/13/2025 10:55 AM EDT 03/13/2025 12:29 PM EDT us Zahraa Roca DO LAB BLOOD ORDERABLES Final R esult [facility] [address] [place] [address] [phone] * XR Facial Bones 3+ Views (03/13/2025 10:46 AM EDT) Anatomical Region Laterality Modality Head, Neck, Facial bones Radiogr aphic Imaging 03/13/2025 10:4 6 AM EDT Narrative 03/13/2025 12:30 PM EDT [address] [address] XRay Report Signed Patient: Cristobal Enriquez MR#: [id number] 54 : 1970 Acct:[id number] Age/Sex: 54 / M ADM Date: 03/13/25 Loc: [facility] Attending Dr: Zahraa Roca DO Ordering Physician: Zahraa Rcoa DO Date of Service: 03/13/25 Procedure(s): XR facial bones min 3V Accession Number(s): [id number] cc: Zahraa Roca DO EXAMINATION: XR FACIAL [...] Boris Sears MD 03/13/2025 12:27 PM EDT RP Dictated By: Boris Lovett MD Signed By: <Electronically signed by Boris Bates MD in OV> 03/13/25 1227 DD/ 1046 TD/TT: 03/13/25 1100 Shotweld Operator: Procedure Note Donotuseinterpreter, Image - 03/13/2025 [place] [address] XRay Report Signed Patient: Cristobal Enriquez JMR#: [id number] 54 : 1970Acct:[id number] Age/Sex: 54 / MADM Date: 03/13/25 Loc: [facility] Attending Dr: Zahraa Roca DO Ordering Physician: Zahraa Roca DO Date of Service: 03/13/25 Procedure(s): XR facial bones min 3V Accession Number(s): [id number] cc: Zahraa Roca DO EXAMINATION: XR FACIAL [...] Boris Sears MD 03/13/2025 12:27 PM EDT RP Dictated By: Boris Lovett MD Signed By: <Electronically signed by Boris Bates MDin OV> 03/13/25 1227 DD/ 1046 TD/TT: 03/13/25 1100 Shotweld Operator: Zahraa Roca DO IMG XR PROCEDURES Final Resu lt * XR Wrist 3+ Views Right (03/13/2025 10:42 AM EDT) Anatomical Region Laterality Modality Upper Extremities, Wrist Right Radiogr aphic Imaging 03/13/2025 10:4 2 AM EDT Narrative 03/13/2025 12:32 PM EDT [place] [address] XRay Report Signed Patient: Cristobal Enriquez MR#: [id number] 54 : 1970 Acct:[id number] Age/Sex: 54 / M ADM Date: 03/13/25 Loc: [facility] Attending Dr: Zahraa Roca DO Ordering Physician: Zahraa Roca DO Date of Service: 03/13/25 Procedure(s): XR wrist RT min 3V Accession Number(s): [id number] cc: Zahraa Roca DO EXAMINATION: XR WRIST, RIGHT CLINICAL INFORMATION: R wrist swelling and pain COMPARISON: 10/05/2021. TECHNIQUE: PA, lateral, oblique, and scaphoid views of the right wrist. FINDINGS: No fracture, dislocation, or suspicious bone lesion. There is mild to moderate dorsal lunate tilt. Severe radiocarpal joint space narrowing with xmbz-gc-rfnx appearance. There is a subchondral cyst in [...] 03/13/25 1229 DD/ 1042 TD/TT: 03/13/25 1100 Shotweld Operator: Procedure Note Donotuseinterpreter, Image - 03/13/[address] [address] XRay Report Signed Patient: Cristobal Enriquez JMR#: [id number] 54 : 1970Acct:[id number] Age/Sex: 54 / MADM Date: 03/13/25 Loc: .[facility] Attending Dr: Zahraa Roca DO Ordering Physician: Zahraa Roca DO Date of Service: 03/13/25 Procedure(s): XR wrist RT min 3V Accession Number(s): [id number] cc: Zahraa Roca DO EXAMINATION: XR WRIST, RIGHT CLINICAL INFORMATION: R wrist swelling and pain COMPARISON: 10/05/2021. TECHNIQUE: PA, lateral, oblique, and scaphoid views of the right wrist. FINDINGS: No fracture, dislocation, or suspicious bone lesion. There is mild to moderate dorsal lunate tilt. Severe radiocarpal joint space narrowing with trvl-nz-eszk appearance. There is a subchondral cyst in [...] 03/13/25 1229 DD/ 1042 TD/TT: 03/13/25 1100 Shotweld Operator: us Zahraa Roca DO IMG XR PROCEDURES Final Resu lt * XR Hand 3+ Views Right (03/13/2025 10:40 AM EDT) Anatomical Region Laterality Modality Upper Extremities, Hand Right Radiogra phic Imaging 03/13/2025 10:4 0 AM EDT Narrative 03/13/2025 12:32 PM EDT [address] [address] XRay Report Signed Patient: Cristobal Enriquez MR#: [id number] 54 : 1970 Acct:[id number] Age/Sex: 54 / M ADM Date: 03/13/25 Loc: [facility] Attending Dr: Zahraa Roca DO Ordering Physician: Zahraa Roca DO Date of Service: 03/13/25 Procedure(s): XR hand RT min 3V Accession Number(s): [id number] cc: Jurcsak,Zahraa A DO EXAMINATION: XR HAND, RIGHT CLINICAL INFORMATION: [...] 03/13/25 1229 DD/ 1040 TD/TT: 03/13/25 1100 Shotweld Operator: Procedure Note Donotuseinterpreter, Image - 03/13/2025 [place] [address] XRay Report Signed Patient: Cristobal Enriquez JMR#: [id number] 54 : 1970Acct:[id number] Age/Sex: 54 / MADM Date: 03/13/25 Loc: [facility] Attending Dr: Zahraa Roca DO Ordering Physician: Zahraa Roca DO Date of Service: 03/13/25 Procedure(s): XR hand RT min 3V Accession Number(s): [id number] cc: Zahraa Roca DO EXAMINATION: XR HAND, [...] Boris Sears MD 03/13/2025 12:29 PM EDT Dictated By: Boris Lovett MD Signed By: <Electronically signed by Boris Bates MDin OV> 03/13/25 1229 DD/ 1040 TD/TT: 03/13/25 1100 Shotweld Operator: Zahraa Roca DO IMG XR PROCEDURES Final Resu lt * Hm Colonoscopy (03/16/2023 9:43 AM EDT) Historical Provider HEALTH MAINTENANCE Final Result * Fecal Globin by Immunochemistry (07/13/2022 12:00 AM EST) Fecal Globin By Immunochemistry SEE NOTE [employer] Comment: FECAL GLOBIN BY IMMUNOCHEMISTRY Micro Number: [id number] Test Status: Final Specimen Source: Insure (tm) fobt test card Specimen Quality: Adequate Fecal Globin: Not Detected 07/13/2022 07/28/2022 8:2 7 AM EST Zahraa Roca DO LAB BODY FLUIDS AND STOOLS O RDERABLES Final Result [facility] [address] [place] [address], [place] [phone] [employer] [address] [facility], ([address]) [place] [phone] from Last 3 Months or Most Recently Relevant to Health Maintenance Insurance [facility] STANDARD MEDICARE [place] [phone] DENTAL-[facility] MEDICAID STAND ADULT Care Teams Business Dean Relationship Specialty Start Date End Date Zahraa Roca DO [address] [place] [address] PCP - General Family Medicine 07/25/18 Christian Soria FNP [address] [place] [address] Nurse Practitioner Family Medicine 06/24/23
--- OUTSIDE RECORDS SUMMARY | 2025-05-20 19:15 | XMS_ITS | Encounter Summary ---
Author Organization [employer] Address 75 [facility] 7t [place] [address] Care Team Providers Care Manager Publishing Name Role Phone AbelinoZahraa Primary Care Provider + [phone] Christian Soria Unavailable Unavailable Encounter Details Date Type Department Care Team (Late st Contact Info) Description 11/03/2023 Orders Only [facility] MEDICINE [address] [place] [address] Provider, MD Hiral Social History Tobacco Use [...] Description 06/03/2025 9:00 AM EST Clinical Support [facility] [address] [place] [address] Mere Rios RN documented as of this [...] as of this encounter Care Teams Manager Publishing Relationship Specialty Start Date End Date Zahraa Roca DO 230 [place] [address] PCP - General Family Medicine 07/25/18 Christian Soria FNP [address] [place] [address] Nurse Practitioner Family Medicine 06/24/23 documented as of this encounter
--- OUTSIDE RECORDS SUMMARY | 2025-05-20 19:15 | XMS_ITS | Encounter Summary ---
Author Organization [employer] Address 75 [facility] 7t [place] [address] Care Team Providers Care Drywall Application Supervisor Name Role Phone AbelinoZahraa Primary Care Provider + [phone] Christian Soria Unavailable Unavailable Reason for Visit * Reason Onset Date Comments Clonazepam count 05/20/2025 Encounter Details Date Type Department Care Team ([facility] st Contact Info) Description 05/20/2025 Telephone [facility] MEDICINE [address] [place] [address] Mere Rios, HENRIK Clonazepam count Social History Tobacco Use Types Packs/Day Years [...] Telephone Encounter - Mere Rios RN - 05/20/2025 3:55 PM EDT TC to patient to get his Clonazepam count. No answer. L/M asking him to call me back tomorrow. documented in this encounter Plan of Treatment Upcoming Encounters Date Type Department Care Team (Late st Contact Info) Description 06/03/2025 9:00 AM EST Clinical Support [facility] MED[facility]INE [address] [place] [address] Mere Rios, RN documented as of this encounter Visit Diagnoses Not on filedocumented in this encounter Additional Health Concerns Assessment Noted Time PHQ-9 Depression Total Score: 16 025 3:09 PM EDT documented as of this encounter Care Teams Drywall Application Supervisor Relationship Specialty Start Date End Date Zahraa Roca DO [address] [place] [address] PCP - General Family Medicine 07/25/18 Christian Soria FNP [address] [place] [address] Nurse Practitioner Family Medicine 06/24/23 documented as of this encounter
--- OUTSIDE RECORDS SUMMARY | 2025-05-20 19:15 | XMS_ITS | Encounter Summary ---
Author Organization [employer] Address 75 [facility] 7 [place] [address] Care Team Providers Care Basketball Coach Name Role Phone Zahraa Roca DO Primary Care Provider [phone] Christian Soria Unavailable Unavailable Reason for Visit * Reason Onset Date Comments PT-1 07/13/2024 Encounter Details Date Type Department Care Team ([facility] st Contact Info) Description 07/13/2024 Telephone [facility] MEDICINE [address] [place], [place] [phone] Zahraa Roca DO [address] [place], [place] [phone] PT-1 Social History Tobacco Use Types Packs/Day [...] Yes Provider name or facility name: [address] [facility] Escort needed: Y/N: No Do you have a wheelchair: Y/N: No If yes- Manual or electric: Visits: (3x Monthly) documented in this encounter Plan of Treatment Upcoming Encounters Date Type Department Care Team (Late st Contact Info) Description 06/03/2025 9:00 AM EST Clinical Support [facility] MEDICINE [address] [place] [address] Mere Rios, RN documented as of this encounter Visit Diagnoses Not on filedocumented in this encounter Additional Health Concerns Assessment Noted Time PHQ-9 Depression Total Score: 0 11/28/19 24 11:23 AM EDT documented as of this encounter Care Teams Basketball Coach Relationship Specialty Start Date End Date Zahraa Roca DO [address] [place] [address] PCP - General Family Medicine 07/25/18 Christian Soria FNP [address] [place] [address] Nurse Practitioner Family Medicine 06/24/23 documented as of this encounter
--- OUTSIDE RECORDS SUMMARY | 2025-05-20 19:15 | XMS_ITS | Encounter Summary ---
Author Organization [employer] Address 75 [facility] 7 [place] [address] Care Team Providers Care Fruit Or Nut Farmer Name Role Phone Zahraa Roca DO Primary Care Provider [phone] Christian Soria Unavailable Unavailable Reason for Visit * Reason Onset Date Comments PT-1 10/01/2024 Encounter Details Date Type Department Care Team (Late st Contact Info) Description 10/01/2024 Telephone [facility] 230 [place], [place] [phone] Zahraa Roca DO [address] [place], [place] [phone] PT-1 (/) Social History Tobacco Use Types [...] EDT Tc from pt requesting for the Forensic Toxicologist locations for all his Pt 1 to be changed to [address] [place] [address]. If any questions contact pt at [phone] documented in this encounter Plan of Treatment Upcoming Encounters Date Type Department Care Team (Late st Contact Info) Description 06/03/2025 9:00 AM EST Clinical Support [facility] [address] [place] [address] Mere Rios, HENRIK documented as of this encounter Visit Diagnoses Not on filedocumented in this encounter Additional Health Concerns Assessment Noted Time PHQ-9 Depression Total Score: 0 11/28/19 24 11:23 AM EDT documented as of this encounter Care Teams Fruit Or Nut Farmer Relationship Specialty Start Date End Date Zahraa Roca DO [address] [place] [address] PCP - General Family Medicine 07/25/18 Christian Soria FNP [address] [place] [address] Nurse Practitioner Family Medicine 06/24/23 documented as of this encounter
--- OUTSIDE RECORDS SUMMARY | 2025-05-20 19:15 | XMS_ITS | Encounter Summary ---
Author Organization [employer] Address 75 [facility] 7 [place] [address] Care Team Providers Care System Administration Manager Name Role Phone Zahraa Roca DO Primary Care Provider [phone] Christian Soria Unavailable Unavailable Reason for Visit * Reason Onset Date Comments Referral 04/08/2025 Encounter Details Date Type Department Care Team ([facility] st Contact Info) Description 04/08/[address] [facility] MEDICINE 230 [place], [place] [phone] Zahraa Roca DO [address] [place], [place] [phone] Referral Social History Tobacco Use Types Packs/Day [...] the pt at home. Contact pt at [phone] Pt is requesting to speak with a nurse regarding referral. documented in this encounter Plan of Treatment Upcoming Encounters Date Type Department Care Team (Late st Contact Info) Description 06/03/2025 9:00 AM EST Clinical Support [facility] MEDICINE [address] [place] [address] Mere Rios RN documented as of this encounter Visit Diagnoses Not on filedocumented in this encounter Additional Health Concerns Assessment Noted Time PHQ-9 Depression Total Score: 16 025 3:09 PM EDT documented as of this encounter Care Teams System Administration Manager Relationship Specialty Start Date End Date Zahraa Roca DO [address] [place] [address] PCP - General Family Medicine 07/25/18 Christian Soria FNP [address] [place] [address] Nurse Practitioner Family Medicine 06/24/23 documented as of this encounter
--- OUTSIDE RECORDS SUMMARY | 2025-05-20 19:15 | XMS_ITS | Encounter Summary ---
Author Organization [employer] Address 75 [facility] 7 [place] [address] Care Team Providers Care Self Pay Collector Name Role Phone Zahraa Roca DO Primary Care Provider [phone] Christian Soria Unavailable Unavailable Reason for Visit * Reason Onset Date Comments PT-1 03/15/2024 Encounter Details Date Type Department Care Team ([facility] st Contact Info) Description 03/15/2024 Telephone [facility] MEDICINE 230 [place], [place] [phone] Zahraa Roca DO 230 [place], [place] [phone] PT-1 Social History Tobacco Use Types Packs/Day [...] Y/N: Yes Provider name or facility name: [facility] Facility Address: [address] [place] [address] Escort needed: Y/N: No Do you have a wheelchair: Y/N: No If yes- Manual or electric: no Visits: 3 documented in this encounter Plan of Treatment Upcoming Encounters Date Type Department Care Team (Late st Contact Info) Description 06/03/2025 9:00 AM EST Clinical Support [facility] MEDICINE [address] [place] [address] Mere Rios, HENRIK documented as of this encounter Visit Diagnoses Not on filedocumented in this encounter Additional Health Concerns Assessment Noted Time PHQ-9 Depression Total Score: 0 11/28/19 24 11:23 AM EDT documented as of this encounter Care Teams Self Pay Collector Relationship Specialty Start Date End Date Zahraa Roca DO 230 [place] [address] PCP - General Family Medicine 07/25/18 Christian Soria FNP 230 [place] [address] Nurse Practitioner Family Medicine 06/24/23 documented as of this encounter
--- OUTSIDE RECORDS SUMMARY | 2025-05-20 19:15 | XMS_ITS | Encounter Summary ---
Author Organization [employer] Address 75 [facility] 7 [place] [address] Care Team Providers Care Conservation Specialist Name Role Phone Zahraa Roca DO Primary Care Provider [phone] Christian Soria Unavailable Unavailable Reason for Visit * Reason Onset Date Comments Nurse Triage 05/03/2025 Encounter Details Date Type Department Care Team ([facility] st Contact Info) Description 05/03/2025 Telephone [facility] MEDICINE 230 [place], [place] [phone] Zahraa Roca DO 230 [place], [place] [phone] Nurse Triage Social History Tobacco Use Types [...] this time as he had 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 Pt states rescheduled to Tuesday but [...] caller accepted this outcome. Contact pt at [phone] documented in this encounter Plan of Treatment Upcoming Encounters Date Type Department Care Team (Late st Contact Info) Description 06/03/2025 9:00 AM EST Clinical Support [facility] MEDICINE [address] [place] [address] Mere Rios, HENRIK documented as of this encounter Visit Diagnoses Not on filedocumented in this encounter Additional Health Concerns Assessment Noted Time PHQ-9 Depression Total Score: 16 10/16/2 025 3:09 PM EDT documented as of this encounter Care Teams Conservation Specialist Relationship Specialty Start Date End Date Zahraa Roca DO [address] [place] [address] PCP - General Family Medicine 07/25/18 Christian Soria FNP [address] [place] [address] Nurse Practitioner Family Medicine 06/24/23 documented as of this encounter
--- OUTSIDE RECORDS SUMMARY | 2025-05-20 19:15 | XMS_ITS | Encounter Summary ---
Author Organization [employer] Address 75 [facility] 7 [place] [address] Care Team Providers Care Play Reader Name Role Phone Zahraa Roca DO Primary Care Provider [phone] Christian Soria Unavailable Unavailable Reason for Visit * Reason Onset Date Comments PT-1 10/02/2024 Encounter Details Date Type Department Care Team ([facility] st Contact Info) Description 10/02/2024 Telephone [facility] MEDICINE 230 [place], [place] [phone] Zahraa Roca DO 230 [place], [place] [phone] PT-1 Social History Tobacco Use Types Packs/Day [...] status of Pt 1 Contact pt at [phone] * Telephone Encounter - Go Vasquez - 10/02/2024 9:06 AM EDT Patient calling requesting PT1 Home Address verified: Y/N: Yes Provider name or facility name: [facility] [address] [address] Escort needed: Y/N: No Do you have a wheelchair: Y/N: No If yes- Manual or electric: Visits: (7 Days x Weekly) documented in this encounter Plan of Treatment Upcoming Encounters Date Type Department Care Team ([facility] st Contact Info) Description 06/03/2025 9:00 AM EST Clinical Support [address] [address] Mere Rios, RN documented as of this encounter Visit Diagnoses Not on filedocumented in this encounter Additional Health Concerns Assessment Noted Time PHQ-9 Depression Total Score: 0 11/28/19 24 11:23 AM EDT documented as of this encounter Care Teams Play Reader Relationship Specialty Start Date End Date Zahraa Roca DO 230 [place] [address] PCP - General Family Medicine 07/25/18 Christian Soria FNP [address] [place] [address] Nurse Practitioner Family Medicine 06/24/23 documented as of this encounter
--- OUTSIDE RECORDS SUMMARY | 2025-05-20 19:15 | XMS_ITS | Encounter Summary ---
Author Organization [employer] Address 75 [facility] 7 [place] [address] Care Team Providers Care Mechanical Press Operator Name Role Phone Zahraa Roca DO Primary Care Provider [phone] Christian Soria Unavailable Unavailable Reason for Visit * Reason Onset Date Comments PT-1 04/17/2024 Encounter Details Date Type Department Care Team ([facility] st Contact Info) Description 04/17/2024 Telephone [facility] MEDICINE 230 [place], [place] [phone] Zahraa Roca DO 230 [place], [place] [phone] PT-1 Social History Tobacco Use Types Packs/Day [...] facility name: [facility] Facility Address: [address] [place] [address] Escort needed: Y/N: No Do you have a wheelchair: Y/N: No If yes- Manual or electric: N/A Visits: Twice a month documented in this encounter Plan of Treatment Upcoming Encounters Date Type Department Care Team (Late st Contact Info) Description 06/03/2025 9:00 AM EST Clinical Support [facility] MEDICINE [address] [place] [address] Mere Rios RN documented as of this encounter Visit Diagnoses Not on filedocumented in this encounter Additional Health Concerns Assessment Noted Time PHQ-9 Depression Total Score: 0 11/28/19 11:23 AM EDT documented as of this encounter Care Teams Mechanical Press Operator Relationship Specialty Start Date End Date Zahraa Roca DO [address] [place] [address] PCP - General Family Medicine 07/25/18 Christian Soria FNP [address] [place] [address] Nurse Practitioner Family Medicine 06/24/23 documented as of this encounter
--- OUTSIDE RECORDS SUMMARY | 2025-05-20 19:15 | XMS_ITS | Encounter Summary ---
Author Organization [employer] Address [address] [place] [address] 7t [place] [address] Care Team Providers Care Property Developer Name Role Phone Zahraa Roca DO Primary Care Provider + [phone] Christian Soria Unavailable Unavailable Encounter Details Date Type Department Care Team (Late Contact Info) Description 09/20/2022 Orders Only [facility] [address] [place], [place] [phone] Zahraa Andino LPN Social History Tobacco Use [...] Description 06/03/2025 9:00 AM EST Clinical Support [facility] MEDICINE [address] [place] [address] Mere Rios RN documented as of this encounter Visit Diagnoses Not on filedocumented in this encounter Additional Health Concerns Assessment Noted Time PHQ-9 Depression Total Score: 0 08/24/19 23 2:33 PM EST documented as of this encounter Care Teams Property Developer Relationship Specialty Start Date End Date Zahraa Roca DO 230 [place] [address] PCP - General Family Medicine 07/25/18 Christian Soria FNP [address] [place] [address] Nurse Practitioner Family Medicine 06/24/23 documented as of this encounter
--- OUTSIDE RECORDS SUMMARY | 2025-05-20 19:16 | XMS_ITS | Encounter Summary ---
Author Organization [employer] Address [address] [facility] 7t [place] [address] Care Team Providers Care Instrument Engineer Name Role Phone Zahraa Roca DO Primary Care Provider + [phone] Christian Soria Unavailable Unavailable Reason for Visit * Reason Comments Med Refill Encounter Details Date Type Department Care Team ([facility] st Contact Info) Description 05/09/2025 Refill [facility] MEDICINE 230 [place], [place] [phone] Zahraa Roca DO [address] [place], [place] [phone] Anxiety Social History Tobacco Use Types Packs/Day [...] Description 06/03/2025 9:00 AM EST Clinical Support [facility] MEDICINE [address] [place] [address] Mere Rios, HENRIK documented as of this encounter Visit Diagnoses Diagnosis Anxiety Anxiety state, unspecified documented in this encounter Additional Health Concerns Assessment Noted Time PHQ-9 Depression Total Score: 16 025 3:09 PM EDT documented as of this encounter Care Teams Instrument Engineer Relationship Specialty Start Date End Date Zahraa Roca DO [address] [place] [address] PCP - General Family Medicine 07/25/18 Christian Soria FNP [address] [place] [address] Nurse Practitioner Family Medicine 06/24/23 documented as of this encounter
--- OUTSIDE RECORDS SUMMARY | 2025-05-20 19:16 | XMS_ITS | Encounter Summary ---
Author Organization [employer] Address [address] [place] [address] 7 [place] [address] Care Team Providers Care Cake Washer Name Role Phone Zahraa Roca DO Primary Care Provider + [phone] Christian Soria Unavailable Unavailable Reason for Visit * Reason Comments Med Refill Encounter Details Date Type Department Care Team (Late st Contact Info) Description 12/31/2022 Refill [facility] MEDICINE [address] [place] [address] Christian Soria FNP Anxiety Social History Tobacco [...] 9:00 AM EST Clinical Support [facility] MEDICINE [address] [place] [address] Mere Rios RN documented as of this encounter Visit Diagnoses Diagnosis Anxiety Anxiety state, unspecified documented in this encounter Additional Health Concerns Assessment Noted Time PHQ-9 Depression Total Score: 0 08/24/19 23 2:33 PM EST documented as of this encounter Care Teams Cake Washer Relationship Specialty Start Date End Date Zahraa Roca DO [address] [place] [address] PCP - General Family Medicine 07/25/18 Christian Soria FNP [address] [place] [address] JANICE Merchant [address] Nurse Practitioner Family Medicine 06/24/23 documented as of this encounter
--- OUTSIDE RECORDS SUMMARY | 2025-05-20 19:16 | XMS_ITS | Encounter Summary ---
Author Organization [employer] Address 75 [facility] 7t [place] [address] Care Team Providers Care Quality Assurance Monitor Chassis Name Role Phone AbelinoZahraa Primary Care Provider [phone] Christian Soria Unavailable Unavailable Encounter Details Date Type Department Care Team (Latest Contact Info) Description 05/20/2025 Travel Social History Tobacco Use Types Packs/Day [...] Description 06/03/2025 9:00 AM EST Clinical Support [facility] MEDICINE [address] [place] [address] Mere Rios RN documented as of this encounter Visit Diagnoses Not on filedocumented in this encounter Additional Health Concerns Assessment Noted Time PHQ-9 Depression Total Score: 16 025 3:09 PM EDT documented as of this encounter Care Teams Quality Assurance Monitor Chassis Relationship Specialty Start Date End Date Zahraa Roca DO [address] [place] [address] PCP - General Family Medicine 07/25/18 Christian Soria FNP [address] [place] [address] Nurse Practitioner Family Medicine 06/24/23 documented as of this encounter
--- OUTSIDE RECORDS SUMMARY | 2025-05-20 19:16 | XMS_ITS | Encounter Summary ---
Author Organization [employer] Address [address] [place] [address] 7 [place] [address] Care Team Providers Care Marketing Traffic Manager Name Role Phone SuryaZahraa lee Primary Care Provider + [phone] Christian Soria Unavailable Unavailable Reason for Visit * Reason Comments Med Refill Encounter Details Date Type Department Care Team (Late st Contact Info) Description 12/19/2022 Refill [facility] MEDICINE 230 [place], [place] [phone] Christian Soria FNP Anxiety Social History Tobacco [...] 9:00 AM EST Clinical Support [facility] MEDICINE [address] [place] [address] Mere Rios RN documented as of this encounter Visit Diagnoses Diagnosis Anxiety Anxiety state, unspecified documented in this encounter Additional Health Concerns Assessment Noted Time PHQ-9 Depression Total Score: 0 08/24/19 2:33 PM EST documented as of this encounter Care Teams Marketing Traffic Manager Relationship Specialty Start Date End Date Zahraa Roca DO [address] [place] [address] PCP - General Family Medicine 07/25/18 Christian Soria FNP [address] [place] [address] Nurse Practitioner Family Medicine 06/24/23 documented as of this encounter
--- OUTSIDE RECORDS SUMMARY | 2025-05-20 19:16 | XMS_ITS | Encounter Summary ---
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 Reviewed UTOX results with patient. Patent stated he's still using the same marijuana from the street that he was using during his 05/06/25 LITHOGRAPHIC PRINTING MACHINIST 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 Reminded patient of his 05/06/25 UTOX was also Pos for JYOTI. Explained to patient he needs to stop smoking marijuana from the street now. Explained I would send his UTOX out for confirmation again. Pt requesting PCP be notified that he intendsto stop smoking marijuana today. Will call him this afternoon for his Clonazepam count. documented in this encounter Plan of Treatment Upcoming Encounters Date Type Department Care Team (Late st Contact Info) Description 06/03/2025 9:00 AM EST Clinical Support [facility] MEDICINE [address] [place] [address] Mere Rios, RN documented as of this encounter Visit Diagnoses Not on filedocumented in this encounter Additional Health Concerns Assessment Noted Time PHQ-9 Depression Total Score: 16 10/16/2 025 3:09 PM EDT documented as of this encounter Care Teams Synchronizer Relationship Specialty Start Date End Date Zahraa Roca DO [address] [place] [address] PCP - General Family Medicine 07/25/18 Christian Soria FNP [address] [place] [address] Nurse Practitioner Family Medicine 06/24/23 documented as of this encounter
--- OUTSIDE RECORDS SUMMARY | 2025-05-20 19:16 | XMS_ITS | Encounter Summary ---
Author Organization [employer] Address [address] [place] [address] 7 [place] [address] Care Team Providers Care Pigment Grinder Name Role Phone Zahraa Roca DO Primary Care Provider [phone] Christian Soria Unavailable Unavailable Reason for Visit * Reason Onset Date Comments Med Refill 12/31/2022 Encounter Details Date Type Department Care Team (Late st Contact Info) Description 12/31/2022 Telephone [facility] MEDICINE 230 [place], [place] [phone] Zahraa Roca DO 230 [place], [place] [phone] Med Refill Social History Tobacco Use Types [...] Description 06/03/2025 9:00 AM EST Clinical Support [facility] MEDICINE [address] [place] [address] Mere Rios, HENRIK documented as of this encounter Visit Diagnoses Not on filedocumented in this encounter Additional Health Concerns Assessment Noted Time PHQ-9 Depression Total Score: 0 08/24/19 23 2:33 PM EST documented as of this encounter Care Teams Pigment Grinder Relationship Specialty Start Date End Date Zahraa Roca DO [address] [place] [address] PCP - General Family Medicine 07/25/18 Christian Soria FNP [address] [place] [address] Nurse Practitioner Family Medicine 06/24/23 documented as of this encounter
--- OUTSIDE RECORDS SUMMARY | 2025-05-20 19:16 | XMS_ITS | Encounter Summary ---
Author Organization [employer] Address [address] [facility] 7t [place] [address] Care Team Providers Care Service Order Taker Name Role Phone Zahraa Roca DO Primary Care Provider + [phone] Christian Soria Unavailable Unavailable Reason for Visit * Reason Comments Med Refill Encounter Details Date Type Department Care Team ([facility] st Contact Info) Description 02/14/2025 Refill [facility] MEDICINE 230 [place], [place] [phone] Zahraa Roca DO 230 [place], [place] [phone] Anxiety Social History Tobacco Use Types Packs/Day [...] Description 06/03/2025 9:00 AM EST Clinical Support [facility] MEDICINE 230 [place] [address] Mere Rios, HENRIK documented as of this encounter Visit Diagnoses Diagnosis Anxiety Anxiety state, unspecified documented in this encounter Additional Health Concerns Assessment Noted Time PHQ-9 Depression Total Score: 16 025 3:09 PM EDT documented as of this encounter Care Teams Service Order Taker Relationship Specialty Start Date End Date Zahraa Roca DO [address] [place] [address] PCP - General Family Medicine 07/25/18 Christian Soria FNP [address] [place] [address] Nurse Practitioner Family Medicine 06/24/23 documented as of this encounter
--- OUTSIDE RECORDS SUMMARY | 2025-05-20 19:16 | XMS_ITS | Encounter Summary ---
Author Organization [email or web address] Address 75 [facility] 7t [place] [address] Care Team Providers Care Guard Museum Name Role Phone Zahraa Roca DO Primary Care Provider + [phone] Christian Soria Unavailable Unavailable Encounter Details Date Type Department Care Team (Late st Contact Info) Description 10/10/2024 Orders Only [facility] MEDICINE 230 [place], [place] [phone] Zahraa Roca DO 230 [place] [address] Social History Tobacco Use Types Packs/Day Years [...] Description 06/03/2025 9:00 AM EST Clinical Support [facility] MEDICINE [address] [place] [address] Mere Rios RN documented as of this encounter Visit Diagnoses Not on filedocumented in this encounter Additional Health Concerns Assessment Noted Time PHQ-9 Depression Total Score: 0 11/28/19 24 11:23 AM EDT documented as of this encounter Care Teams Guard Museum Relationship Specialty Start Date End Date Zahraa Roca DO [address] [place] [address] PCP - General Family Medicine 07/25/18 Christian Soria FNP [address] [place] [address] Nurse Practitioner Family Medicine 06/24/23 documented as of this encounter
--- OUTSIDE RECORDS SUMMARY | 2025-05-20 19:16 | XMS_ITS | Encounter Summary ---
Author Organization [email or web address] Address [address] [facility] 7 [place] [address] Care Team Providers Care Track Laying Machine Operator Name Role Phone Zahraa Roca DO Primary Care Provider [phone] Christian Soria Unavailable Unavailable Reason for Visit * Reason Onset Date Comments Appointment Request 05/20/2025 Encounter Details Date Type Department Care Team ([facility] st Contact Info) Description 05/20/[address] [facility] MEDICINE 230 [place], [place] [phone] Zahraa Roca DO 230 [place], [place] [phone] Appointment Request Social History Tobacco Use Types [...] Encounter - Mere Rios RN - 05/20/2025 11:26 AM EDT TC to patient, no answer. L/M asking him to call back when he's available. * Telephone Encounter - Bradley Bustillos - 05/20/2025 8:50 AM EDT Tc from pt requesting to r/s superintendent plant protection apt due to having a radiology apt at [facility]. Contact pt at [phone] documented in this encounter Plan of Treatment Upcoming Encounters Date Type Department Care Team (Late st Contact Info) Description 06/03/2025 9:00 AM EST Clinical Support [facility] MEDICINE 230 [place] [address] Mere Rios, RN documented as of this encounter Visit Diagnoses Not on filedocumented in this encounter Additional Health Concerns Assessment Noted Time PHQ-9 Depression Total Score: 16 025 3:09 PM EDT documented as of this encounter Care Teams Track Laying Machine Operator Relationship Specialty Start Date End Date Zahara Roca DO 230 [place] [address] PCP - General Family Medicine 07/25/18 Christian Soria FNP [address] [place] [address] Nurse Practitioner Family Medicine 06/24/23 documented as of this encounter
[2025-05-23 11:34] LABS: Lorazepam GCMS Urine NEGATIVE; Nordiazepam, GCMS Urine NEGATIVE; Oxazepam, GCMS Urine NEGATIVE
[2025-05-23 11:35] LABS: Alphahydroxymidazolam,GCMS Ur NEGATIVE; Alphahydroxytriazolam, GCMS Ur NEGATIVE; Alprazolam, GCMS Urine NEGATIVE; Temazepam, GCMS Urine NEGATIVE
[2025-05-23 11:36] LABS: Aminoclonazepam, GCMS Urine 140; Flurazepam Metabolite,GCMS Ur NEGATIVE
[2025-05-27 08:27] LABS: Fentanyl, Ur NEGATIVE; Norfentanyl, Ur NEGATIVE
== END 2025-05-20 16:29 | disposition home or self-care (01) ==
LOC: HO.HHCLNP 16:28
PROVIDERS: Visit Provider Family Medicine
DX: Z51.81 Encounter for therapeutic drug level monitoring (principal); Z79.899 Other long term (current) drug therapy
CPT/HCPCS: 80307; 80346; 80353; 80354

== ENCOUNTER 2025-05-29 11:09 | Emergency (ER) | payer MEDICARE, MEDICAID, SELFPAY ==
--- NOTE | ~2025-05-29 | XR_ITS ---
EXAMINATION: XR RIBS 3 VIEWS MINIMUM WITH CHEST LEFT HISTORY: left rib injury COMPARISON: Correlation is made with AP portable views of the chest dated 07/26/2020. FINDINGS: A single PA view of the chest and 4 views of the left ribs are submitted. The lungs are expanded and clear. There is no pleural effusion, pneumothorax, or pulmonary vascular congestion. The heart is normal in size. There is a minimally displaced fracture of the anterior aspect of the left 7th rib. XR/XR ribs LT min 3V w CXR1V IMPRESSION: Minimally displaced fracture of the anterior aspect of the left 7th rib. Electronically signed by: Wilfredo Han MD 05/29/2025 11:55 AM EST
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
[2025-05-29 11:23] VITALS: BP 138/84; BP 142/92; PULSE 74; PULSE 82; RESP 15; TEMP 36.6; O2SAT 97; O2SAT 99; BMI 23.7
[2025-05-29] MEDS: Lidocaine 4 % Patch ADH..PATCH 1 PATCH TRANSDERMA (11:50)
--- OUTSIDE RECORDS SUMMARY | 2025-05-29 14:36 | XMS_ITS | Encounter Summary ---
Author Organization [email or web address] Address [address] [place] [address] 7 [place] [address] Care Team Providers Care Design Engineer Agricultural Equipment Name Role Phone Zahraa Roca DO Primary Care Provider + [phone] Christian Soria Unavailable Unavailable Encounter Details Date Type Department Care Team (Late st Contact Info) Description 08/12/2022 Orders Only [facility] [address] [place] [address] Zahraa Andino LPN Social History Tobacco Use [...] EST Clinical Support [facility] MEDICINE 230 [place] [address] Mere Rios, RN documented as of this encounter Visit Diagnoses Not on filedocumented in this encounter Care Teams Design Engineer Agricultural Equipment Relationship Specialty Start Date End Date Zahraa Roca DO 230 [place] [address] PCP - General Family Medicine 07/25/18 Christian Soria FNP [address] [place] [address] Nurse Practitioner Family Medicine 06/24/23 documented as of this encounter
--- OUTSIDE RECORDS SUMMARY | 2025-05-29 14:36 | XMS_ITS | Encounter Summary ---
Author Organization [employer] Address 75 [facility] 7 [place] [address] Care Team Providers Care Haulage Boss Name Role Phone Zahraa Roca DO Primary Care Provider [phone] Christian Soria Unavailable Unavailable Reason for Visit * Reason Onset Date Comments PT-1 03/15/2024 Encounter Details Date Type Department Care Team ([facility] st Contact Info) Description 03/15/2024 Telephone [facility] MEDICINE 230 [place], [place] [phone] Zahraa Roca DO 230 [place], [place] [phone] PT-1 Social History Tobacco Use Types Packs/Day [...] Y/N: Yes Provider name or facility name: [facility] Facility Address: [address] [place] [address] Escort needed: Y/N: No Do you have a wheelchair: Y/N: No If yes- Manual or electric: no Visits: 3 documented in this encounter Plan of Treatment Upcoming Encounters Date Type Department Care Team (Late st Contact Info) Description 06/03/2025 9:00 AM EST Clinical Support [facility] MEDICINE [address] [place] [address] Mere Rios, HENRIK documented as of this encounter Visit Diagnoses Not on filedocumented in this encounter Additional Health Concerns Assessment Noted Time PHQ-9 Depression Total Score: 0 11/28/19 24 11:23 AM EDT documented as of this encounter Care Teams Haulage Boss Relationship Specialty Start Date End Date Zahraa Roca DO 230 [place] [address] PCP - General Family Medicine 07/25/18 Christian Soria FNP [address] [place] [address] Nurse Practitioner Family Medicine 06/24/23 documented as of this encounter
--- OUTSIDE RECORDS SUMMARY | 2025-05-29 14:36 | XMS_ITS | Encounter Summary ---
Author Organization [email or web address] Address 75 [facility] 7 [place] [address] Care Team Providers Care Barber Instructor Name Role Phone Zahraa Roca DO Primary Care Provider [phone] Christian Soria Unavailable Unavailable Reason for Visit * Reason Onset Date Comments Nurse Triage 05/03/2025 Encounter Details Date Type Department Care Team ([facility] st Contact Info) Description 05/03/2025 Telephone [facility] MEDICINE 230 [place], [place] [phone] Zahraa Roca DO 230 [place], [place] [phone] Nurse Triage Social History Tobacco Use Types [...] this time as he had 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 Pt states rescheduled to Tuesday but [...] caller accepted this outcome. Contact pt at [phone] documented in this encounter Plan of Treatment Upcoming Encounters Date Type Department Care Team (Late st Contact Info) Description 06/03/2025 9:00 AM EST Clinical Support [facility] MEDICINE [address] [place] [address] Mere Rios, HENRIK documented as of this encounter Visit Diagnoses Not on filedocumented in this encounter Additional Health Concerns Assessment Noted Time PHQ-9 Depression Total Score: 16 10/16/2 025 3:09 PM EDT documented as of this encounter Care Teams Barber Instructor Relationship Specialty Start Date End Date Zahraa Roca DO [address] [place] [address] PCP - General Family Medicine 07/25/18 Christian Soria FNP [address] [place] [address] Nurse Practitioner Family Medicine 06/24/23 documented as of this encounter
--- OUTSIDE RECORDS SUMMARY | 2025-05-29 14:36 | XMS_ITS | Encounter Summary ---
Author Organization [employer] Address 75 [facility] 7 [place] [address] Care Team Providers Care Toxicology Supervisor Name Role Phone Zahraa Roca DO Primary Care Provider [phone] Christian Soria Unavailable Unavailable Reason for Visit * Reason Onset Date Comments PT-1 04/17/2024 Encounter Details Date Type Department Care Team ([facility] st Contact Info) Description 04/17/2024 Telephone [facility] MEDICINE 230 [place], [place] [phone] Zahraa Roca DO 230 [place], [place] [phone] PT-1 Social History Tobacco Use Types Packs/Day [...] Y/N: Yes Provider name or facility name: [facility] Facility Address: [address] [place] [address] Escort needed: Y/N: No Do you have a wheelchair: Y/N: No If yes- Manual or electric: N/A Visits: Twice a month documented in this encounter Plan of Treatment Upcoming Encounters Date Type Department Care Team (Late st Contact Info) Description 06/03/2025 9:00 AM EST Clinical Support [facility] MEDICINE [address] [place] [address] Mere Rios RN documented as of this encounter Visit Diagnoses Not on filedocumented in this encounter Additional Health Concerns Assessment Noted Time PHQ-9 Depression Total Score: 0 11/28/19 11:23 AM EDT documented as of this encounter Care Teams Toxicology Supervisor Relationship Specialty Start Date End Date Zahraa Roca DO [address] [place] [address] PCP - General Family Medicine 07/25/18 Christian Soria FNP [address] [place] [address] Nurse Practitioner Family Medicine 06/24/23 documented as of this encounter
--- OUTSIDE RECORDS SUMMARY | 2025-05-29 14:36 | XMS_ITS | Encounter Summary ---
Author Organization [email or web address] Address 75 [facility] 7 [place] [address] Care Team Providers Care Sample Weaver Name Role Phone Zahraa Roca DO Primary Care Provider [phone] Christian Soria Unavailable Unavailable Reason for Visit * Reason Onset Date Comments PT1 01/03/2024 Encounter Details Date Type Department Care Team ([facility] st Contact Info) Description 01/03/2024 Telephone [facility] MEDICINE 230 [place], [place] [phone] Zahraa Roca DO 230 [place], [place] [phone] PT1 Social History Tobacco Use Types Packs/Day [...] housing situation today? I have valentin bealuieu 05/10/[address] you li [...] or facility name[facility] Facility Address: [address] [place] [address] Escort needed: Y/N: No Do you have a wheelchair: Y/N: No If yes- Manual or electric: none Visits: 7 days a week documented in this encounter Plan of Treatment Upcoming Encounters Date Type Department Care Team ([facility] Contact Info) Description 06/03/2025 9:00 AM EST Clinical Support [facility] MEDICINE [address] [place] [address] Mere Rios RN documented as of this encounter Visit Diagnoses Not on filedocumented in this encounter Additional Health Concerns Assessment Noted Time PHQ-9 Depression Total Score: 0 11/28/19 24 11:23 AM EDT documented as of this encounter Care Teams Sample Weaver Relationship Specialty Start Date End Date Zahraa Roca DO 230 [place] [address] PCP - General Family Medicine 07/25/18 Christian Soria FNP [address] [place] [address] Nurse Practitioner Family Medicine 06/24/23 documented as of this encounter
--- OUTSIDE RECORDS SUMMARY | 2025-05-29 14:36 | XMS_ITS | Encounter Summary ---
Author Organization [employer] Address 75 [facility] 7 [place] [address] Care Team Providers Care Route Delivery Service Driver Name Role Phone Zahraa Roca DO Primary Care Provider [phone] Christian Soria Unavailable Unavailable Reason for Visit * Reason Onset Date Comments PT-1 10/01/2024 Encounter Details Date Type Department Care Team (Late st Contact Info) Description 10/01/2024 Telephone [facility] MEDICINE 230 [place], [place] [phone] Zahraa Roca DO 230 [place], [place] [phone] PT-1 (/) Social History Tobacco Use Types [...] EDT Tc from pt requesting for the Machine Joint Cutter locations for all his Pt 1 to be changed to [address] [place] [address]. If any questions contact pt at [phone] documented in this encounter Plan of Treatment Upcoming Encounters Date Type Department Care Team (Late st Contact Info) Description 06/03/2025 9:00 AM EST Clinical Support [facility] MEDICINE [address] [place] [address] Mere Rios, HENRIK documented as of this encounter Visit Diagnoses Not on filedocumented in this encounter Additional Health Concerns Assessment Noted Time PHQ-9 Depression Total Score: 0 11/28/19 24 11:23 AM EDT documented as of this encounter Care Teams Route Delivery Service Driver Relationship Specialty Start Date End Date Zahraa Roca DO 230 [place] [address] PCP - General Family Medicine 07/25/18 Christian Soria FNP 230 [place] [address] Nurse Practitioner Family Medicine 06/24/23 documented as of this encounter
--- OUTSIDE RECORDS SUMMARY | 2025-05-29 14:36 | XMS_ITS | Encounter Summary ---
Author Organization [employer] Address [address] [place] [address] 7 [place] [address] Care Team Providers Care Flow Coordinator Name Role Phone Zahraa Roca DO Primary Care Provider + [phone] Christian Soria Unavailable Unavailable Encounter Details Date Type Department Care Team (Late st Contact Info) Description 07/06/2022 Orders Only [facility] [address] [place] [address] Zahraa Andino LPN Social History Tobacco Use [...] Support [facility] MEDICINE [address] [place] [address] Mere Rios, RN documented as of this encounter Visit Diagnoses Not on filedocumented in this encounter Care Teams Flow Coordinator Relationship Specialty Start Date End Date Zahraa Roca DO [address] [place] [address] PCP - General Family Medicine 07/25/18 Christian Soria FNP [address] [place] [address] Nurse Practitioner Family Medicine 06/24/23 documented as of this encounter
--- OUTSIDE RECORDS SUMMARY | 2025-05-29 14:36 | XMS_ITS | Clinical Summary ---
Author Organization [employer] Address [address] [facility] 7[address] [place] [address] Care Team Providers Care Outbound Sales Professional Name Role Phone AbelinoZahraa Primary Care Provider [phone] Christian Soria Unavailable Unavailable Allergies No known [...] any issues or concerns, he should contact [facility]. All his questions were answered. He [...] Encounters Date Type Department Care Team Description 05/29/2025 Orders Only [facility] External Provider, [facility] 05/22/2025 Telephone [facility] [address] [place] [address] Zahraa Roca DO Med Refill 05/20/2025 11:00 AM EDT Clinical Support [facility] [address] [place] [phone] Mere Rios, HENRIK Long-term current use of benzodiazepine (Primary Dx) 05/20/[address] [address] Mere Rios, HENRIK Clonazepam count 05/20/[address] [address] Mere Rios, HENRIK Random [employer]PIPE TEND[employer] RV today; UTOX Pos JOYTI, FENT, Neg BZO; UTOX Confirmation 05/20/2025 Travel 05/20/[address] [address] Zahraa Roca DO Appointment Request 05/14/2025 Outside Procedure [facility] [address] [place] [phone] Gmaa, Aniyah, OD Presbyopia (Primary Dx) 05/09/2025 Refill [facility] [address] [place] [address] Zahraa Roca DO Anxiety 05/09/[address] [address] Zahraa Roca DO Anxiety 05/06/2025 1:00 PM EDT Office Visit [facility] [address] [place] [phone] Gama, Aniyah, OD Hyperopia of both eyes (Primary Dx) 05/06/2025 9:30 AM EDT Clinical Support [address] [address] Mere Rios, RN Long-term current use of benzodiazepine (Primary Dx) 05/06/2025 Telephone [facility] [address] [place] [address] Mere Rios, HENRIK SIDDHARTHA scoring; UTOX Pos JYOTI 05/06/2025 Travel 05/03/2025 Telephone [facility] [address] [place] [address] Zahraa Roca DO Nurse Triage 05/03/2025 Refill [facility] [address] [place] [address] Zahraa Roca, Anxiety 04/29/[address] [address] Mere Rios RN NCNS [employer]PIPE TEND[employer] RV today 04/18/2025 Refill [facility] [address] [place] [address] Zahraa Roca, Anxiety 04/09/[address] [address] Zahraa Roca DO Appointment Request 04/08/[address] [address] Zahraa Roca DO Referral 03/20/[address] [address] Zahraa Roca DO Refrerral questions 03/20/[address] [address] Zahraa Roca DO Anxiety 03/18/2025 3:30 PM EDT Office Visit [facility] [address] [place] [address] TarLeela malik, OD Vitreous floaters of right eye (Primary Dx); Anatomical narrow angle of both eyes; Presbyopia 03/18/2025 Travel 03/13/2025 10:00 AM EDT Office Visit [facility] [address] [place] [address] Zahraa Roca DO Anxiety (Primary Dx); Chronic [...] lower extremity; Paresthesia of skin 03/13/2025 Telephone [facility] [address] [place] [address] Leela Stauffer, OD 03/13/2025 Telephone [facility] [address] [place] [address] Mere Rios, HENRIK Per PCP cancel [employer]PIPE TENDER this month 03/13/2025 Travel 03/12/2025 Telephone [facility] [address] [place] [address] Zahraa Roca DO Chart Prep 03/06/2025 Patient Outreach [address] [address] Zahraa Roca DO Pre-visit Planning (SDOH screening completed on 10/08/24 ) 03/04/[address] [address] Zahraa Roca DO PT1 02/28/[address] [address] Zahraa Roca DO Chart Prep 02/26/[address] [address] Mere Rios, HENRIK NCNS [employer]PIPE T[employer] RV today from Last 3 Months Immunizations Immunization Administration [...] Description 06/03/2025 9:00 AM EST Clinical Support [address] [phone] Mere Rios, RN Health Maintenance Due Date [...] Completed 03/29/2023, 06/08/2022 HIV Screening Completed 03/13/2025, 07/2023, 06/15/2022, Additional history exists Pneumococcal Vaccine: [...] Name Priority Date/Time Associated Diagnosis Comments XR RIBS 3 VIEWS LEFT W CHEST Routine 05/29/2025 11:52 AM EST POCT MARIO-14 URINE DRUG SCREEN Routine 05/20/2025 1:03 PM EDT Long-term current use of benzodiazepine DRUG MONITOR, COCAINE METAB, QN, URINE Routine 05/20/2025 12:30 PM EDT Long-term current use of benzodiazepine DRUG MONITORING, BENZODIAZEPINES, QUANTITATIVE, URINE Routine 05/20/2025 12:30 PM EDT Long-term current use of benzodiazepine METHADONE SCREEN, URINE Routine 05/20/2025 12:30 PM EDT Long-term current use of benzodiazepine DRUG MONITOR, FENTANYL, W/CONF, URINE Routine 05/20/2025 12:30 PM EDT Long-term [...] Relevant to Health Maintenance Results * XR Ribs 3 Views Left w/ Chest (05/29/2025 11:52 AM EST) Anatomical Region Laterality Modality Radiographic Nara ging 05/29/2025 11:5 2 AM EST Narrative 05/29/2025 11:58 AM EST [address] [address] XRay Report Signed Patient: Cristobal Enriquez MR#: [id number] [birth year] : 1970 Acct:[id number] Age/Sex: 55 / M ADM Date: 05/29/25 Loc: HO.ED Attending Dr: Ordering Physician: Lynnette Rosado DO Date of Service: 05/29/25 Procedure(s): XR ribs LT min 3V w CXR1V Accession Number(s): [id number] cc: Lynnette Rosado DO; Zahraa Roca DO Reason for Exam: left rib injury EXAMINATION: XR RIBS 3 VIEWS MINIMUM WITH CHEST LEFT HISTORY: left rib injury COMPARISON: Correlation is made with AP portable views of the chest dated 07/26/2020. FINDINGS: A single PA view of the chest and 4 views of the left ribs are submitted. The lungs are expanded and clear. There is no pleural effusion, pneumothorax, or pulmonary vascular congestion. The heart is normal in size. There is a minimally displaced fracture of the anterior aspect of the left 7th rib. XR/XR ribs LT min 3V w CXR1V IMPRESSION: Minimally displaced fracture of the anterior aspect of the left 7th rib. Electronically signed by: Wilfredo Han MD 05/29/2025 11:55 AM EST Dictated By: Wilfredo Han MD Signed By: <Electronically signed by Wilfredo Han MD in OV> 05/29/25 1155 DD/ 1152 TD/TT: 05/29/25 1150 Ripshear Operator: Procedure Note Donotuseinterpreter, Image - 05/29/2025 [place] [address] XRay Report Signed Patient: Cristobal Enriquez JMR#: [id number] 54 : 1970Acct:[id number] Age/Sex: 55 / MADM Date: 05/29/25 Loc: HO.ED Attending Dr: Ordering Physician: Lynnette Rosado DO Date of Service: 05/29/25 Procedure(s): XR ribs LT min 3V w CXR1V Accession Number(s): [id number] cc: Lynnette Rosado DO; Zahraa Roca DO Reason for Exam: left rib injury EXAMINATION: XR RIBS 3 VIEWS MINIMUM WITH CHEST LEFT HISTORY: left rib injury COMPARISON: Correlation is made with AP portable views of the chest dated 07/26/2020. FINDINGS: A single PA view of the chest and 4 views of the left ribs are submitted. The lungs are expanded and clear. There is no pleural effusion, pneumothorax, or pulmonary vascular congestion. The heart is normal in size. There is a minimally displaced fracture of the anterior aspect of the left 7th rib. XR/XR ribs LT min 3V w CXR1V IMPRESSION: Minimally displaced fracture of the anterior aspect of the left 7th rib. Electronically signed by: Wilfredo Han MD 05/29/2025 11:55 AM EST Dictated By: Wilfredo Han MD Signed By: <Electronically signed by Wilfredo Han MD in OV> 05/29/25 1155 DD/ 1152 TD/TT: 05/29/25 1150 Ripshear Operator: [facility] External Provider IMG XR PROCEDURES Final Result * (ABNORMAL) POCT MARIO-14 Urine Drug Screen (05/20/2025 1:03 PM EDT) Only the most recent of2 resultswithin the time period is included. 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 04/30/26 Internal Pass Control Zahraa Roca DO POINT OF CARE TEST ENTER/JOANNA T ORDERABLES Final Result * Drug Monitoring, Benzodiazepines, Quantitative, Urine (05/20/2025 12:30 PM EDT) Nordiazepam, GCMS Urine NEGATIVE [facility] Comment:CUTOFF 50 NG/ML Oxazepam, GCMS Urine NEGATIVE [facility] Comment:CUTOFF 50 NG/ML Lorazepam GCMS Urine NEGATIVE [facility] Comment:CUTOFF 50 NG/ML Alprazolam, GCMS Urine NEGATIVE [facility] Comment:CUTOFF 25 NG/ML Alphahydroxytriazolam, GCMS Ur NEGATIVE [facility] Comment:CUTOFF 50 NG/ML Temazepam, GCMS Urine NEGATIVE [facility] Comment:CUTOFF 50 NG/ML Alphahydroxymidazolam, GCMS Ur NEGATIVE [facility] Comment:CUTOFF 50 NG/ML Aminoclonazepam, GCMS Urine 140 [facility] Comment:CUTOFF 25 NG/ML Flurazepam Metabolite,GCMS Ur NEGATIVE [facility] Comment:CUTOFF 50 NG/ML Benzodiazepines Comments SEE NOTE [facility] Comment:This drug testing is for medical treatment only. Analysiswas performed as non-forensic testing and these resultsshould be used only by healthcare providers to renderdiagnosis or treatment, or to monitor progress of medicalconditions.Benzodiazepines Notes:Aminoclonazepam detected is consistent with the use of thedrug ClonazepamLDT Notes:Confirmation tests were developed and their analyticalperformance characteristics have been determined by [employer]. It has not been cleared or approved by the FDA.This assay has been validated pursuant to the CLIAregulations and is used for clinical purposes.Healthcare Providers needing Interpretation assistance,please contact us at [phone] ( ) M-F,8am to 10pm ESTPERFORMING SITE:[facility] [employer] [facility], [address] [place] [phone] Preschool Adviser: SOCRATES MATHIAS MD, CLIA:[id number] Urine (Urine, Random) 05/20/2025 12:30 PM EDT 05/20/2025 4:29 PM EDT us Zahraa Roca DO LAB URINE ORDERABLES Final R esult [facility] [address] [place] [phone] * Drug Monitoring, Fentanyl, with Confirmation, Urine (05/20/2025 12:30 PM EDT) Fentanyl, Ur NEGATIVE [facility] Comment:CUTOFF 0.5 NG/ML Norfentanyl, Ur NEGATIVE [facility] Comment:CUTOFF 0.5 NG/ML Fentanyl Note SEE NOTE [facility] Comment: NOTES AND COMMENTSThis drug testing is for medical treatment only. Analysiswas performed as non-forensic testing and these resultsshould be used only by healthcare providers to renderdiagnosis or treatment, or to monitor progress of medicalconditions. LDT Notes: Confirmation tests were developed andtheir analytical performance characteristics have beendetermined by [employer]. It has not been cleared orapproved by the FDA. This assay has been validated pursuantto the CLIA regulations and is used for clinical purposes.Healthcare Providers needing Interpretation assistance,please contact us at [phone] ( ) M-F,8am to 10pm ESTThis drug testing is for medical treatment only. Analysiswas performed as non-forensic testing and these resultsshould be used only by healthcare providers to renderdiagnosis or treatment, or to monitor progress of medicalconditions.PERFORMING SITE:[facility] [employer] [phone] LaboratoryDirector: FER ARREAGA MD, CLIA: [id number] Urine (Urine, Random) 05/20/2025 12:30 PM EDT 05/20/2025 4:29 PM EDT us Zahraa Roca DO LAB URINE ORDERABLES Final R esult [facility] [address] [place] [address] [phone] * Drug Monitoring, Cocaine Metabolite, Quantitative, Urine (05/20/2025 12:30 PM EDT) Only the most recent of2 resultswithin the time period is included. Benzoylecgonine [address] [facility] Comment:CUTOFF 100 NG/ML Cocaine Comments SEE NOTE [facility] Comment:This drug testing is for medical treatment only. Analysiswas performed as non-forensic testing and these resultsshould be used only by healthcare providers torender diagnosis or treatment, or to monitor progress ofmedical conditions.Cocaine Notes:Benzoylecgonine detected is consistent with the use of thedrug Cocaine.LDT Notes:Confirmation tests were developed and their analyticalperformance characteristics have been determined by [employer]. It has not been cleared or approved by the FDA.This assay has been validated pursuant to the CLIAregulations and is used for clinical purposes.Healthcare Providers needing Interpretation assistance,please contact us at [phone] ( ) M-F,8am to 10pm EST Urine (Urine, Random) 05/20/2025 12:30 PM EDT 05/20/2025 4:29 PM EDT us Zahraa Roca DO LAB URINE ORDERABLES Final R esult [facility] [address] [place] [phone] * (ABNORMAL) Drug Monitoring, Methadone Metabolite, Screen, Urine (05/20/2025 12:30 PM EDT) Methadone Screen, Urine Positive( A) Not Detect ng/mL [facility] Comment:Methadone cut-off is 300 ng/mL.Positive results are unconfirmed and should not be used fornon-medical purposes. Urine (Urine, Random) 05/20/2025 12:30 PM EDT 05/20/2025 4:29 PM EDT us Zahraa Abelino DO LAB URINE ORDERABLES Final R esult [facility] [address] [place] [phone] * Vitamin D, 25-Hydroxy, Total, Immunoassay (03/13/2025 10:55 AM EDT) Vitamin D 25-OH Total 37.0 >30 ng/mL [facility] Comment: Health Based Reference Values*< 20 ng/mL Onxqmogws61-24 ng/mL Insufficient> 30 ng/mL Sufficient*Sissy JONAS. N [...] ORDERABLES Final R esult Performing Organization Address City/[facility]/ZIP Co de Phone Number [facility] [address] [place] [address] [phone] * Hepatitis C Viral RNA, Quantitative, Real-Time PCR (03/13/2025 10:55 AM EDT) Hepatitis C Viral Load <15 NOT DETECTED NOT DETECTED IU/mL [facility] HCV Log PCR <1.18 NOT DETECTED NOT DETECTED Log IU/mL [facility] Comment:For additional infor dorothy, please refer tohttp://education.[email or web address]/faq/CPE99o8(This link is being provided for informational/educational purposes only.)THIS TEST WAS PERFORMED AT:[facility] [place] [phone] MATHIAS MD Blood Venous blood specimen / Unknown 03/13/2025 10:55 AM EDT 03/13/2025 12:24 PM EDT us Zahraa Roca DO LAB BLOOD ORDERABLES Final R esult [facility] [address] [place] [phone] * (ABNORMAL) CBC auto differential (03/13/2025 10:55 AM EDT) White Blood Count 5.2 4.8 - 10.8 X10*3/uL [facility] Red Blood Count 4.06(L) 4.60 - 5.80 X10*6/uL [facility] Hemoglobin 12.0(L) 14.0 - 18.0 g/dl [facility] Hematocrit 36.5(L) 42.0 - 52.0 % [facility] Mean Corpuscular Volume 89.9 80.0 - 98.0 fL [facility] Mean Corpuscular Hemoglobin 29.6 27.0 - 33.0 pg [facility] Mean Corpuscular HGB Conc 32.9 31.0 - 36.0 g/dl [facility] Red Cell Distribution Width 12.0 11.0 - 16.0 % [facility] Platelet Count 151(L) 160 - 400 X10*3/uL [facility] Mean Platelet Volume 11.1 9.4 - 12.4 fL [facility] Neutrophils Percent Auto 68.9 45 - 73 % [facility] Imm Gran Pct Auto 0.4 0.0 - 0.4 % [facility] Lymphocytes Percent Auto 20.9 20 - 40 % [facility] Monocytes Percent Auto 6.7 2 - 11 % [facility] Eosinophils Percent Auto 2.5 0 - 4 % [facility] Basophils Percent Auto 0.6 0 - 2 % [facility] NRBC Pct Auto 0.0 0.0 - 0.2 /100WBC [facility] Neutrophils Absolute Auto 3.6 2.0 - 8.3 x10*3/uL [facility] Imm Gran Abs Auto 0.02 0.00 - 0.03 X10*3/uL [facility] Lymphocytes Absolute Auto 1.1(L) 1.2 - 4.9 X10*3/uL [facility] Monocytes Absolute Auto 0.4 0.1 - 1.2 X10*3/uL [facility] Eosinophils Absolute Auto 0.1 0.0 - 0.4 X10*3/uL [facility] Basophils Absolute Auto 0.0 0.0 - 0.2 X10*3/uL [facility] NRBC Abs Auto 0.000 0.0 - 0.012 X10*3/uL [facility] Blood Venous blood specimen / Unknown 03/13/2025 10:55 AM EDT 03/13/2025 12:19 PM EDT Zahraa Roca DO LAB BLOOD ORDERABLES Final R esult [facility] [address] [place] [phone] * Hepatitis B surface antigen, EIA (03/13/2025 10:55 AM EDT) Hepatitis B Surface Ag Negative Negative [facility] Blood Venous blood specimen / Unknown 03/13/2025 10:55 AM EDT 03/13/2025 12:24 PM EDT Zahraa Roca DO LAB BLOOD ORDERABLES Final R esult Performing Organization Address [facility]/ZIP Co de Phone Number [facility] [address] [place] [address] [phone] * RPR (Monitor) with Reflex to??Titer (03/13/2025 10:55 AM EDT) RPR (Monitor) w/Refl Titer NON-REACTI VE NON-REACT OTONIEL [facility] Comment:THIS TEST WAS PERFOR MED AT:[facility] [place] [id number] MATHIAS MD Rapid Plasma Reagin Ab Titer TNP [facility] Blood Venous blood specimen / Unknown 03/13/2025 10:55 AM EDT 03/13/2025 12:24 PM EDT Zahraa Roca LAB BLOOD ORDERABLES Final R esult Performing Organization Address [facility] Co de Phone Number [facility] [address] [place] [phone] * HIV-1/2 Antigen and Antibodies, Fourth Generation, with Reflexes (03/13/2025 10:55 AM EDT) HIV AB/AG Nonreactive Nonreactive [facility] Comment:HIV-1 p24 Ag and/or HIV-1/HIV-2 Ab not detected.A test result that is nonreactive does not exclude thepossibility of exposure to or infection with HIV-1 and/orHIV-2. Nonreactive results in this assay for individualswith prior exposure to HIV-1 and/or HIV-2 may be due toantigen and antibody levels that are below the limit ofdetection of this assay.The [employer] HIV Ag/Ab Combo assay result andsupplemental assay results should be interpreted inconjunction with the patient's clinical presentation,history and other laboratory results. If the results areinconsistent with clinical evidence, additional testing issuggested to confirm the result. Blood Venous blood specimen / Unknown 03/13/2025 10:55 AM EDT 03/13/2025 12:24 PM EDT Zahraa Abelino DO LAB BLOOD ORDERABLES Final R esult Performing Organization Address City/[facility]/ZIP Co de Phone Number [facility] [address] [place] [phone] * Hepatitis B Surface Antibody, Qualitative (03/13/2025 10:55 AM EDT) ~Hepatitis B Surface Antibody NONREACTIVE Nonreactive [facility] Comment:Nonreactive: < 8.00 mIU/mL Blood Venous blood specimen / Unknown 03/13/2025 10:55 AM EDT 03/13/2025 12:24 PM EDT Zahraa Roca DO LAB BLOOD ORDERABLES Final R esult Performing Organization Address [facility]/ZIP Co de Phone Number [facility] [address] [place] [phone] * TSH (03/13/2025 10:55 AM EDT) Pathologist [facility] Thyroid Stimulating Hormone 2.23 0.32 - 4.0 uIU/mL [facility] Comment:TSH 3rd Generation ( [facility]) Blood Venous blood specimen / Unknown 03/13/2025 10:55 AM EDT 03/13/2025 12:29 PM EDT us Zahraa Abelino DO LAB BLOOD ORDERABLES Final R esult Performing Organization Address City/[facility]/ZIP Co de Phone Number [facility] [address] [place] [phone] * T4, Free (03/13/2025 10:55 AM EDT) Free T4 (Free Thyroxine) 1.01 0.71 - 1.85 ng/dL [facility] Blood Venous blood specimen / Unknown 03/13/2025 10:55 AM EDT 03/13/2025 12:29 PM EDT Zahraa Abelino DO LAB BLOOD ORDERABLES [facility] Performing Organization Address [facility] Co de Phone Number [facility] [address] [place] [phone] * Hemoglobin A1c (03/13/2025 10:55 AM EDT) Hemoglobin A1c 5.5 <6.0 % [facility] Comment:Hemoglobin A1C Refer ence Range Adults: 4.8 - 6.0 % Non diabetic: < 6.0 % Goal: < 7.0 %Additional Action Suggested: > 8.0 %Note: Hemoglobin A1c results are invalid for patients with abnormal amounts of HbF. Blood transfusions may impact the HbA1c concentration in the patient sample. Estimated Average Glucose 111 mg/dL [facility] Comment:eAG = Estimated ave rage glucose which is %A1C expressed asaverage glucose, using the formula of the S8W-XdrroqwXoixolg Glucose study (ADAG), Diabetes Care, Vol.31,#8,2007 Blood Venous blood specimen / Unknown 03/13/2025 10:55 AM EDT 03/13/2025 12:19 PM EDT Zahraa Roca DO LAB BLOOD ORDERABLES Final R [facility] Performing Organization Address City/[facility] Co de Phone Number [facility] [address] [place] [phone] * Hepatic Function Panel (03/13/2025 10:55 AM EDT) Bilirubin, Total 0.3 0.0 - 1.0 mg/dL [facility] Bilirubin, Direct 0.1 0.0 - 0.5 mg/dL [facility] Aspartate Amino Transferase 25 5 - 37 U/L [facility] Alanine Aminotransferase 16 0 - 40 U/L [facility] Total Protein 6.5 6.5 - 8.0 g/dL [facility] Albumin Level 4.1 3.5 - 5.0 g/dL [facility] Alkaline Phosphatase 116 39 - 117 U/L [facility] Blood Venous blood specimen / Unknown 03/13/2025 10:55 AM EDT 03/13/2025 12:29 PM EDT Zahraa Roca DO LAB BLOOD ORDERABLES Final R esult Performing Organization Address [facility] Co de Phone Number [facility] [address] [place] [phone] * Lipid Panel, Standard (03/13/2025 10:55 AM EDT) Triglycerides 68 <150 mg/dL [facility] Comment:Desirable Triglyceri de: less than 150 mg/dLBorderline High Triglyceride 150-199 mg/dLHigh Triglyceride: 200-499 mg/dLVery High Triglyceride: greater than or equal to 5OO mg/dL Cholesterol 150 <200 mg/dL [facility] Comment:Desirable Cholestero l: less than 200 mg/dLBorderline High Cholesterol: 200-239 mg/dLHigh Cholesterol: greater than 239 mg/dL LDL Cholesterol Calculated 89 <100 mg/dL [facility] Comment:Desirable LDL: less than 100 mg/dLNear Optimal/Above Optimal LDL: 110- 129 mg/dLBorderline High LDL: 130-159 mg/dLHigh LDL: 160-189 mg/dLVery High LDL: greater than or equal to 190 mg/dL HDL Cholesterol 48 >40 mg/dL [facility] Comment:Desirable HDL: great er than 40 mg/dL Note: This HDL assay may give artificially low results in patients with liver disease. Blood Venous blood specimen / Unknown 03/13/2025 10:55 AM EDT 03/13/2025 12:29 PM EDT Zahraa Roca DO LAB BLOOD ORDERABLES Final R esult Performing Organization Address City/[facility]/ZIP Co de Phone Number [facility] [address] [place] [phone] * (ABNORMAL) Basic Metabolic Panel (03/13/2025 10:55 AM EDT) Sodium 138 135 - 145 mmol/L [facility] Potassium 4.2 3.3 - 5.1 mmol/L [facility] Chloride 104 96 - 108 mmol/L [facility] Carbon Dioxide 27 22 - 29 mmol/L [facility] Anion Gap 11(L) 12 - 20 [facility] Urea Nitrogen (BUN) 17(H) 9 - 16 mg/dL [facility] Creatinine, Serum 0.72 0.5 - 1.4 mg/dL [facility] Estimated Glomerular Filt Rate >60 [facility] Comment:Chronic Kidney Disea se: Estimated GFR < 60 mL/min/1.14z1Qllflp Kidney Disease: Estimated GFR < 15 mL/min/1.73m2 Glucose 92 60 - 115 mg/dL [facility] Calcium 8.7 8.4 - 10.2 mg/dL [facility] Blood Venous blood specimen / Unknown 03/13/2025 10:55 AM EDT 03/13/2025 12:29 PM EDT us Zahraa Roca DO LAB BLOOD ORDERABLES Final R esult [facility] [address] [place] [phone] * XR Facial Bones 3+ Views (03/13/2025 10:46 AM EDT) Anatomical Region Laterality Modality Head, Neck, Facial bones Radiogr aphic Imaging 03/13/2025 10:4 6 AM EDT Narrative 03/13/2025 12:30 PM EDT [address] [address] XRay Report Signed Patient: Cristobal Enriquez MR#: [id number] 54 : 1970 Acct:[id number] Age/Sex: 54 / M ADM Date: 03/13/25 Loc: [facility] Attending Dr: Zahraa Roca DO Ordering Physician: Zahraa Roca DO Date of Service: 03/13/25 Procedure(s): XR facial bones min 3V Accession Number(s): [id number] cc: Zahraa Roca DO EXAMINATION: XR FACIAL [...] 03/13/25 1227 DD/ 1046 TD/TT: 03/13/25 1100 Ripshear Operator: Procedure Note Donotuseinterpreter, Image - 03/13/2025 [place] [address] XRay Report Signed Patient: Cristobal Enriquez JMR#: [id number] 54 : 1970Acct:[id number] Age/Sex: 54 / MADM Date: 03/13/25 Loc: [facility] Attending Dr: Zahraa Roca DO Ordering Physician: Zahraa Roca DO Date of Service: 03/13/25 Procedure(s): XR facial bones min 3V Accession Number(s): [id number] cc: Zahraa Roca DO EXAMINATION: XR FACIAL [...] 03/13/25 1227 DD/ 1046 TD/TT: 03/13/25 1100 Ripshear Operator: us Zahraa Roca DO IMG XR PROCEDURES Final Resu lt * XR Wrist 3+ Views Right (03/13/2025 10:42 AM EDT) Anatomical Region Laterality Modality Upper Extremities, Wrist Right Radiogr aphic Imaging 03/13/2025 10:4 2 AM EDT Narrative 03/13/2025 12:32 PM EDT [place] [address] XRay Report Signed Patient: Cristobal Enriquez MR#: [id number] 54 : 1970 Acct:[id number] Age/Sex: 54 / M ADM Date: 03/13/25 Loc: [facility] Attending Dr: Zahraa Roca DO Ordering Physician: Zahraa Roca DO Date of Service: 03/13/25 Procedure(s): XR wrist RT min 3V Accession Number(s): [id number] cc: Zahraa Roca DO EXAMINATION: XR WRIST, RIGHT CLINICAL INFORMATION: R wrist swelling and pain COMPARISON: 10/05/2021. TECHNIQUE: PA, lateral, oblique, and scaphoid views of the right wrist. FINDINGS: No fracture, dislocation, or suspicious bone lesion. There is mild to moderate dorsal lunate tilt. Severe radiocarpal joint space narrowing with nrty-rr-caoa appearance. There is a subchondral cyst in [...] 03/13/25 1229 DD/ 1042 TD/TT: 03/13/25 1100 Ripshear Operator: Procedure Note Donotuseinterpreter, Image - 03/13/2025 [place] [address] XRay Report Signed Patient: Cristobal Enriquez JMR#: [id number] 54 : 1970Acct:[id number] Age/Sex: 54 / MADM Date: 03/13/25 Loc: [facility] Attending Dr: Zahraa Roca DO Ordering Physician: Zahraa Roca DO Date of Service: 03/13/25 Procedure(s): XR wrist RT min 3V Accession Number(s): [id number] cc: Zahraa Roca DO EXAMINATION: XR WRIST, RIGHT CLINICAL INFORMATION: R wrist swelling and pain COMPARISON: 10/05/2021. TECHNIQUE: PA, lateral, oblique, and scaphoid views of the right wrist. FINDINGS: No fracture, dislocation, or suspicious bone lesion. There is mild to moderate dorsal lunate tilt. Severe radiocarpal joint space narrowing with khtd-wr-gzfr appearance. There is a subchondral cyst in [...] 03/13/25 1229 DD/ 1042 TD/TT: 03/13/25 1100 Ripshear Operator: Zahraa Rcoa DO IMG XR PROCEDURES Final Resu lt * XR Hand 3+ Views Right (03/13/2025 10:40 AM EDT) Anatomical Region Laterality Modality Upper Extremities, Hand Right Radiogra phic Imaging 03/13/2025 10:4 0 AM EDT Narrative 03/13/2025 12:32 PM EDT [address] [address] XRay Report Signed Patient: Cristobal Enriquez MR#: [id number] 54 : 1970 Acct:[id number] Age/Sex: 54 / M ADM Date: 03/13/25 Loc: .[facility] Attending Dr: Zahraa Roca DO Ordering Physician: Zahraa Roca DO Date of Service: 03/13/25 Procedure(s): XR hand RT min 3V Accession Number(s): [id number] cc: Zahraa Roca DO EXAMINATION: XR HAND, [...] 03/13/25 1229 DD/ 1040 TD/TT: 03/13/25 1100 Ripshear Operator: Procedure Note Donotuseinterpreter, Image - 03/13/[address] [address] XRay Report Signed Patient: Cristobal Enriquez JMR#: [id number] 54 : 1970Acct:[id number] Age/Sex: 54 / MADM Date: 03/13/25 Loc: [facility] Attending Dr: Zahraa Roca DO Ordering Physician: Zahraa Roca DO Date of Service: 03/13/25 Procedure(s): XR hand RT min 3V Accession Number(s): [id number] cc: Zahraa Roca DO EXAMINATION: XR HAND, [...] 03/13/25 1229 DD/ 1040 TD/TT: 03/13/25 1100 Ripshear Operator: Zahraa Roca DO IMG XR PROCEDURES Final Resu lt * Hm Colonoscopy (03/16/2023 9:43 AM EDT) Historical Provider HEALTH MAINTENANCE Final Result * Fecal Globin by Immunochemistry (07/13/2022 12:00 AM EST) Fecal Globin By Immunochemistry SEE NOTE [employer] Comment: FECAL GLOBIN BY IMMUNOCHEMISTRY Micro Number: [id number] Test Status: Final Specimen Source: Insure (tm) fobt test card Specimen Quality: Adequate Fecal Globin: Not Detected 07/13/2022 07/28/2022 8:2 7 AM EST Zahraa Roca DO LAB BODY FLUIDS AND STOOLS O RDERABLES Final Result [address], [facility], [place] [address] [employer] [address] [facility], ([address]) [place] [address] from Last 3 Months or Most Recently Relevant to Health Maintenance Insurance [facility] STANDARD [place] [phone] DENTAL-[facility] MEDICAID STAND ADULT Care Teams Outbound Sales Professional Relationship Specialty Start Date End Date Zahraa Roca DO [address] [place] [address] PCP - General Family Medicine 07/25/18 Christian Soria FNP [address] [place] [address] Nurse Practitioner Family Medicine 06/24/23
--- OUTSIDE RECORDS SUMMARY | 2025-05-29 14:36 | XMS_ITS | Encounter Summary ---
Author Organization [employer] Address [address] [facility] 7 [place] [address] Care Team Providers Care Cutter Out Name Role Phone Zahraa Roca DO Primary Care Provider [phone] Christian Soria Unavailable Unavailable Reason for Visit * Reason Onset Date Comments Appointment Request 06/19/2024 Encounter Details Date Type Department Care Team ([facility] st Contact Info) Description 06/19/2024 Telephone [facility] [address] [place], [place] [phone] Zahraa Roca DO [address] [place], [place] [phone] Appointment Request Social History Tobacco Use Types [...] Description 06/03/2025 9:00 AM EST Clinical Support [facility] [address] [place] [address] Mere Rios RN documented as of this encounter Visit Diagnoses Not on filedocumented in this encounter Additional Health Concerns Assessment Noted Time PHQ-9 Depression Total Score: 0 11/28/19 24 11:23 AM EDT documented as of this encounter Care Teams Cutter Out Relationship Specialty Start Date End Date Zahraa Roca DO [address] [place] [address] PCP - General Family Medicine 07/25/18 Christian Soria FNP [address] [place] [address] Nurse Practitioner Family Medicine 06/24/23 documented as of this encounter
--- OUTSIDE RECORDS SUMMARY | 2025-05-29 14:36 | XMS_ITS | Encounter Summary ---
Author Organization [employer] Address [address] [facility] 7 [place] [address] Care Team Providers Care Clerk Checker Name Role Phone Zahraa Roca DO Primary Care Provider [phone] Christian Soria Unavailable Unavailable Reason for Visit * Reason Onset Date Comments Referral 04/08/2025 Encounter Details Date Type Department Care Team ([facility] st Contact Info) Description 04/08/2025 Telephone [facility] [address] [place], [place] [phone] Zahraa Roca DO [address] [place], [place] [phone] Referral Social History Tobacco Use Types Packs/Day [...] the pt at home. Contact pt at [phone] Pt is requesting to speak with a nurse regarding referral. documented in this encounter Plan of Treatment Upcoming Encounters Date Type Department Care Team (Late st Contact Info) Description 06/03/2025 9:00 AM EST Clinical Support [facility] [address] [place] [address] Mere Rios RN documented as of this encounter Visit Diagnoses Not on filedocumented in this encounter Additional Health Concerns Assessment Noted Time PHQ-9 Depression Total Score: 16 025 3:09 PM EDT documented as of this encounter Care Teams Clerk Checker Relationship Specialty Start Date End Date Zahraa Roca DO [address] [place] [address] PCP - General Family Medicine 07/25/18 Christian Soria FNP [address] [place] [address] Nurse Practitioner Family Medicine 06/24/23 documented as of this encounter
--- OUTSIDE RECORDS SUMMARY | 2025-05-29 14:36 | XMS_ITS | Encounter Summary ---
Author Organization [employer] Address [address] [facility] [address] 7t [place] [address] Care Team Providers Care Fishing Captain Name Role Phone AbelinoZahraa Primary Care Provider + [phone] Christian Soria Unavailable Unavailable Encounter Details Date Type Department Care Team (Late st Contact Info) Description 04/17/2024 Telephone [facility] [address] [place] [address] Lore Vargas DDS Social History Tobacco Use [...] Description 06/03/2025 9:00 AM EST Clinical Support [facility] [address] [place] [address] Mere Rios RN documented as of this encounter Visit Diagnoses Not on filedocumented in this encounter Additional Health Concerns Assessment Noted Time PHQ-9 Depression Total Score: 0 11/28/19 24 11:23 AM EDT documented as of this encounter Care Teams Fishing Captain Relationship Specialty Start Date End Date Zahraa Roca DO [address] [place] [address] PCP - General Family Medicine 07/25/18 Christian Soria FNP [address] [place] [address] Nurse Practitioner Family Medicine 06/24/23 documented as of this encounter
--- OUTSIDE RECORDS SUMMARY | 2025-05-29 14:36 | XMS_ITS | Encounter Summary ---
Author Organization [employer] Address [address] [facility] 7 [place] [address] Care Team Providers Care Pbx Operator Name Role Phone Zahraa Roca DO Primary Care Provider [phone] Christian Soria Unavailable Unavailable Reason for Visit * Reason Onset Date Comments PT-1 07/13/2024 Encounter Details Date Type Department Care Team ([facility] st Contact Info) Description 07/13/2024 Telephone [facility] [address] [place], [place] [phone] Zahraa Roca DO 230 [place], [place] [phone] PT-1 Social History Tobacco Use Types Packs/Day [...] Yes Provider name or facility name: [facility] Escort needed: Y/N: No Do you have a wheelchair: Y/N: No If yes- Manual or electric: Visits: (3x Monthly) documented in this encounter Plan of Treatment Upcoming Encounters Date Type Department Care Team (Late st Contact Info) Description 06/03/2025 9:00 AM EST Clinical Support [facility] [address] [place] [address] Mere Rios, RN documented as of this encounter Visit Diagnoses Not on filedocumented in this encounter Additional Health Concerns Assessment Noted Time PHQ-9 Depression Total Score: 0 11/28/19 24 11:23 AM EDT documented as of this encounter Care Teams Pbx Operator Relationship Specialty Start Date End Date Zahraa Roca DO [address] [place] [address] PCP - General Family Medicine 07/25/18 Christian Soria FNP [address] [place] [address] Nurse Practitioner Family Medicine 06/24/23 documented as of this encounter
--- OUTSIDE RECORDS SUMMARY | 2025-05-29 14:37 | XMS_ITS | Encounter Summary ---
Author Organization [employer] Address [address] [facility] 7t [place] [address] Care Team Providers Care Electrical Engineering Technologist Name Role Phone AbelinoZahraa Primary Care Provider +[phone] Christian Soria Unavailable Unavailable Encounter Details Date Type Department Care Team (Late st Contact Info) Description 05/29/2025 Orders Only [facility] External Provider, [facility] Social History Tobacco Use Types Packs/Day Years [...] the past 12 months, has t he [employer], gas, oil or water company threatened to [...] Description 06/03/2025 9:00 AM EST Clinical Support [facility] [address] [place] [address] Mere Rios RN documented as of this encounter Procedures Procedure Name Priority Date/Time Associated Diagnosis Comments XR RIBS 3 VIEWS LEFT W CHEST Routine 05/29/2025 11:52 AM EST documented in this encounter Results * XR Ribs 3 Views Left w/ Chest (05/29/2025 11:52 AM EST) Anatomical Region Laterality Modality Radiographic Nara ging 05/29/2025 11:5 2 AM EST Narrative 05/29/2025 11:58 AM EST [address] [address] XRay Report Signed Patient: Cristobal Enriquez MR#: [id number] 54 : 1970 Acct:[id number] Age/Sex: 55 / M ADM Date: 05/29/25 Loc: HO.ED Attending Dr: Ordering Physician: Lynnette Rosado DO Date of Service: 05/29/25 Procedure(s): XR ribs LT min 3V w CXR1V Accession Number(s): [id number] cc: Lynnette Rosado DO; Zahraa Roca DO [...] 05/29/25 1155 DD/ 1152 TD/TT: 05/29/25 1150 Escrow Representative: Procedure Note Donotuseinterpreter, Image - 05/29/2025 [place] [address] XRay Report Signed Patient: Cristobal Enriquez JMR#: [id number] 54 : 1970Acct:[id number] Age/Sex: 55 / MADM Date: 05/29/25 Loc: .ED Attending Dr: Ordering Physician: Lynnette Rosado DO Date of Service: 05/29/25 Procedure(s): XR ribs LT min 3V w CXR1V Accession Number(s): [id number] cc: Lynnette Rosado DO; Zahraa Roca DO [...] Wilfredo Han MD 05/29/2025 11:55 AM EST RP Dictated By: Wilfredo Han MD Signed By: <Electronically signed by Wilfredo Han MD in OV> 05/29/25 1155 DD/ 1152 TD/TT: 05/29/25 1150 Escrow Representative: [facility] External Provider IMG XR PROCEDURES Final Result documented in this encounter Visit Diagnoses Not on filedocumented in this encounter Additional Health Concerns Assessment Noted Time PHQ-9 Depression Total Score: 16 10/16/2 025 3:09 PM EDT documented as of this encounter Care Teams Electrical Engineering Technologist Relationship Specialty Start Date End Date Zahraa Roca DO [address] [place] [address] PCP - General Family Medicine 07/25/18 Christian Soria FNP [address] [place] [address] Nurse Practitioner Family Medicine 06/24/23 documented as of this encounter
--- OUTSIDE RECORDS SUMMARY | 2025-05-29 14:37 | XMS_ITS | Encounter Summary ---
Author Organization [employer] Address [address] [place] [address] 7t [place] [address] Care Team Providers Care Candy Decorator Name Role Phone Zahraa Roca DO Primary Care Provider + [phone] Christian Soria Unavailable Unavailable Encounter Details Date Type Department Care Team (Late Contact Info) Description 09/20/2022 Orders Only [facility] & PEDS [address] [place], [place] [phone] Zahraa Andino LPN Social History Tobacco Use [...] 06/03/2025 9:00 AM EST Clinical Support [facility] MED[facility]INE [address] [place] [address] Mere Rios RN documented as of this encounter Visit Diagnoses Not on filedocumented in this encounter Additional Health Concerns Assessment Noted Time PHQ-9 Depression Total Score: 0 08/24/19 23 2:33 PM EST documented as of this encounter Care Teams Candy Decorator Relationship Specialty Start Date End Date Zahraa Roca DO [address] [place] [address] PCP - General Family Medicine 07/25/18 Christian Soria FNP [address] [place] [address] Nurse Practitioner Family Medicine 06/24/23 documented as of this encounter
--- OUTSIDE RECORDS SUMMARY | 2025-05-29 14:37 | XMS_ITS | Encounter Summary ---
Author Organization [employer] Address [address] [place] [address] 7t [place] [address] Care Team Providers Care Black Jack Dealer Name Role Phone Zahraa Roca DO Primary Care Provider + [phone] Christian Soria Unavailable Unavailable Encounter Details Date Type Department Care Team (Late Contact Info) Description 10/21/2022 Orders Only [facility] PEDS [address] [place], [place] [phone] Zahraa Andino LPN Social History Tobacco Use [...] Description 06/03/2025 9:00 AM EST Clinical Support [facility] 230 [place] [address] Mere Rios RN documented as of this encounter Visit Diagnoses Not on filedocumented in this encounter Additional Health Concerns Assessment Noted Time PHQ-9 Depression Total Score: 0 08/24/19 23 2:33 PM EST documented as of this encounter Care Teams Black Jack Dealer Relationship Specialty Start Date End Date Zahraa Roca DO [address] [place] [address] PCP - General Family Medicine 07/25/18 Christian Soria FNP [address] [place] [address] Nurse Practitioner Family Medicine 06/24/23 documented as of this encounter
--- OUTSIDE RECORDS SUMMARY | 2025-05-29 14:37 | XMS_ITS | Encounter Summary ---
Author Organization [employer] Address [address] [place] [address] 7 [place] [address] Care Team Providers Care Production Team Leader Name Role Phone SuryaZahraa lee Primary Care Provider + [phone] Christian Soria Unavailable Unavailable Reason for Visit * Reason Comments Med Refill Encounter Details Date Type Department Care Team (Late st Contact Info) Description 12/19/2022 Refill [facility] 230 [place], [place] [phone] Christian Soria FNP Anxiety Social History Tobacco [...] Description 06/03/2025 9:00 AM EST Clinical Support [facility] [address] [place] [address] Mere Rios RN documented as of this encounter Visit Diagnoses Diagnosis Anxiety Anxiety state, unspecified documented in this encounter Additional Health Concerns Assessment Noted Time PHQ-9 Depression Total Score: 0 08/24/19 2:33 PM EST documented as of this encounter Care Teams Production Team Leader Relationship Specialty Start Date End Date Zahraa Roca DO [address] [place] [address] PCP - General Family Medicine 07/25/18 Christian Soria FNP [address] [place] [address] Nurse Practitioner Family Medicine 06/24/23 documented as of this encounter
--- OUTSIDE RECORDS SUMMARY | 2025-05-29 14:37 | XMS_ITS | Encounter Summary ---
Author Organization [employer] Address [address] [facility] 7t [place] [address] Care Team Providers Care Slot Floor Supervisor Name Role Phone Zahraa Roca DO Primary Care Provider + [phone] Christian Soria Unavailable Unavailable Reason for Visit * Reason Comments Med Refill Encounter Details Date Type Department Care Team ([facility] st Contact Info) Description 02/14/2025 Refill [facility] [address] [place], [place] [phone] Zahraa Roca DO [address] [place], [place] [phone] Anxiety Social History Tobacco Use Types Packs/Day [...] 9:00 AM EST Clinical Support [facility] 230 [place] [address] Mere Rios, HENRIK documented as of this encounter Visit Diagnoses Diagnosis Anxiety Anxiety state, unspecified documented in this encounter Additional Health Concerns Assessment Noted Time PHQ-9 Depression Total Score: 16 025 3:09 PM EDT documented as of this encounter Care Teams Slot Floor Supervisor Relationship Specialty Start Date End Date Zahraa Roca DO [address] [place] [address] PCP - General Family Medicine 07/25/18 Christian Soria FNP [address] [place] [address] Nurse Practitioner Family Medicine 06/24/23 documented as of this encounter
--- OUTSIDE RECORDS SUMMARY | 2025-05-29 14:37 | XMS_ITS | Encounter Summary ---
Author Organization [employer] Address [address] [facility] 7t [place] [address] Care Team Providers Care Wire Weaver Helper Name Role Phone AbelinoZahraa Primary Care Provider + [phone] Christian Soria Unavailable Unavailable Encounter Details Date Type Department Care Team (Late st Contact Info) Description 11/03/2023 Orders Only [facility] [address] [place] [address] Provider, MD Hiral Social History Tobacco Use [...] 9:00 AM EST Clinical Support [facility] [address] [place] [address] Mere Rios RN documented as of this [...] documented as of this encounter Care Teams Wire Weaver Helper Relationship Specialty Start Date End Date Zahraa Roca DO [address] [place] [address] PCP - General Family Medicine 07/25/18 Christian Soria FNP [address] [place] [address] Nurse Practitioner Family Medicine 06/24/23 documented as of this encounter
--- OUTSIDE RECORDS SUMMARY | 2025-05-29 14:37 | XMS_ITS | Encounter Summary ---
Author Organization [employer] Address [address] [place] [address] 7 [place] [address] Care Team Providers Care Pipe Stem Aligner Name Role Phone Zahraa Roca DO Primary Care Provider + [phone] Christian Soria Unavailable Unavailable Encounter Details Date Type Department Care Team ([facility] Contact Info) Description 08/31/2022 Abstract [facility]INE [address] [place] [address] Zahraa Roca DO [address] [place] [address] Social History Tobacco Use Types Packs/Day Years [...] Clinical Support [facility] [address] [place] [address] Mere Rios RN documented as of this encounter Visit Diagnoses Not on filedocumented in this encounter Additional Health Concerns Assessment Noted Time PHQ-9 Depression Total Score: 0 08/24/19 23 2:33 PM EST documented as of this encounter Care Teams Pipe Stem Aligner Relationship Specialty Start Date End Date Zahraa Roca DO [address] [place] [address], [place] [address] PCP - General Family Medicine 07/25/18 Christian Soria FNP [address] [place] [address] Nurse Practitioner Family Medicine 06/24/23 documented as of this encounter
--- OUTSIDE RECORDS SUMMARY | 2025-05-29 14:37 | XMS_ITS | Encounter Summary ---
Author Organization [employer] Address [address] [facility] 7t [place] [address] Care Team Providers Care Embroidery Assistant Name Role Phone Zahraa Roca DO Primary Care Provider + [phone] Christian Soria Unavailable Unavailable Encounter Details Date Type Department Care Team (Late st Contact Info) Description 10/10/2024 Orders Only [facility] 230 [place], [place] [phone] Zahraa Roca DO [address] [place] [address] Social History Tobacco Use Types Packs/Day Years [...] Description 06/03/2025 9:00 AM EST Clinical Support [facility] MEDICINE [address] [place] [address] Mere Rios RN documented as of this encounter Visit Diagnoses Not on filedocumented in this encounter Additional Health Concerns Assessment Noted Time PHQ-9 Depression Total Score: 0 11/28/19 24 11:23 AM EDT documented as of this encounter Care Teams Embroidery Assistant Relationship Specialty Start Date End Date Zahraa Roca DO [address] [place] [phone] PCP - General Family Medicine 07/25/18 Christian Soria FNP [address] [place] [address] Nurse Practitioner Family Medicine 06/24/23 documented as of this encounter
--- OUTSIDE RECORDS SUMMARY | 2025-05-29 14:37 | XMS_ITS | Encounter Summary ---
Author Organization [employer] Address [address] [place] [address] 7 [place] [address] Care Team Providers Care Branch Credit Counselor Name Role Phone Zahraa Roca DO Primary Care Provider + [phone] Christian Soria Unavailable Unavailable Reason for Visit * Reason Comments Med Refill Encounter Details Date Type Department Care Team (Late st Contact Info) Description 12/31/2022 Refill [facility] MEDICINE [address] [place] [address] Christian Soria FNP Anxiety Social History Tobacco [...] Description 06/03/2025 9:00 AM EST Clinical Support [facility] MED[facility]INE [address] [place] [address] Mere Rios RN documented as of this encounter Visit Diagnoses Diagnosis Anxiety Anxiety state, unspecified documented in this encounter Additional Health Concerns Assessment Noted Time PHQ-9 Depression Total Score: 0 08/24/19 23 2:33 PM EST documented as of this encounter Care Teams Branch Credit Counselor Relationship Specialty Start Date End Date Zahraa Roca DO 230 [place] [address] PCP - General Family Medicine 07/25/18 Christian Soria FNP [address] [place] [address] JANICE Merchant [address] Nurse Practitioner Family Medicine 06/24/23 documented as of this encounter
--- OUTSIDE RECORDS SUMMARY | 2025-05-29 14:37 | XMS_ITS | Encounter Summary ---
Author Organization [employer] Address [address] [facility] 7 [place] [address] Care Team Providers Care Extraction Operator Name Role Phone Zahraa Roca DO Primary Care Provider [phone] Christian Soria Unavailable Unavailable Reason for Visit * Reason Onset Date Comments PT1 10/24/2024 Encounter Details Date Type Department Care Team ([facility] st Contact Info) Description 10/24/2024 Telephone [facility] MEDICINE 230 [place], [place] [phone] Zahraa Roca DO [address], [place] [phone] PT1 Social History Tobacco Use Types Packs/Day [...] facility name: Mayur harrington Facility Address: [address] [facility] Escort needed: Y/N: No Do you have a wheelchair: Y/N: No If yes- Manual or electric: no Visits:3x a month for 1 year 2.)Patient calling requesting PT1 Home Address verified: Y/N: Yes Provider name or facility name: Dr latonya Christine Facility Address: [address] [facility] [address] Escort needed: Y/N: No Visits: 3x a month for 1 year 3.) Patient calling requesting PT1 Home Address verified: Y/N: Yes Provider name or facility name: Everton Lawton MD Facility Address: [address], [place] [address] Escort needed: Y/N: No Visits: 3 x a month for 1 year 4.) Patient calling requesting PT1 Home Address verified: Y/N: Yes Provider name or facility name: PCP and dental appt Facility Address: [address] [facility] [address] Escort needed: Y/N: No Visits: 4x a month for 1 year documented in this encounter Plan of Treatment Upcoming Encounters Date Type Department Care Team (Late st Contact Info) Description 06/03/2025 9:00 AM EST Clinical Support [facility] MEDICINE [address] [place] [address] Mere Rios, HENRIK documented as of this encounter Visit Diagnoses Not on filedocumented in this encounter Additional Health Concerns Assessment Noted Time PHQ-9 Depression Total Score: 16 025 3:09 PM EDT documented as of this encounter Care Teams Extraction Operator Relationship Specialty Start Date End Date Zahraa Roca DO [address] [place] [address] PCP - General Family Medicine 07/25/18 Christian Soria FNP [address] [place] [address] Nurse Practitioner Family Medicine 06/24/23 documented as of this encounter
--- OUTSIDE RECORDS SUMMARY | 2025-05-29 14:37 | XMS_ITS | Encounter Summary ---
Author Organization [employer] Address 75 [facility] 7t [place] [address] Care Team Providers Care Informatica Developer Name Role Phone Zahraa Roca DO Primary Care Provider [phone] Christian Soria Unavailable Unavailable Reason for Visit * Reason Onset Date Comments Appt question 08/09/2024 Encounter Details Date Type Department Care Team ([facility] st Contact Info) Description 08/09/2024 Telephone [facility] MEDICINE 230 [place], [place] [phone] Zahraa Roca DO 230 [place], [place] [phone] Appt question Social History Tobacco Use Types [...] aug appt its for that. Any questions [phone] documented in this encounter Plan of Treatment Upcoming Encounters Date Type Department Care Team (Late st Contact Info) Description 06/03/2025 9:00 AM EST Clinical Support [facility] MEDICINE 230 [place] [address] Mere Rios, HENRIK documented as of this encounter Visit Diagnoses Not on filedocumented in this encounter Additional Health Concerns Assessment Noted Time PHQ-9 Depression Total Score: 0 11/28/19 24 11:23 AM EDT documented as of this encounter Care Teams Informatica Developer Relationship Specialty Start Date End Date Zahraa Roca DO [address] [place] [address] PCP - General Family Medicine 07/25/18 Christian Soria FNP [address] [place] [address] Nurse Practitioner Family Medicine 06/24/23 documented as of this encounter
--- OUTSIDE RECORDS SUMMARY | 2025-05-29 14:37 | XMS_ITS | Encounter Summary ---
Author Organization [employer] Address 75 [facility] 7t [place] [address] Care Team Providers Care Hydrological Technical Officer Name Role Phone AbelinoZahraa Primary Care Provider [phone] Christian Soria Unavailable Unavailable Reason for Visit * Reason Onset Date Comments Random HANDBAG DESIGNER RV today 05/20/2025 UTOX Pos JYOTI, FENT, Neg BZO 05/20/2025 UTOX Confirmation 05/20/2025 Encounter Details Date Type Department Care Team (Late st Contact Info) Description 05/20/2025 Telephone [facility] MEDICINE [address] [place] [address] Mere Rios RN Random HANDBAG DESIGNER RV today; UTOX Pos JYOTI, FENT, Neg BZO; UTOX Confirmation Social History Tobacco Use Types Packs/Day Years [...] Telephone Encounter - Mere Rios RN - 05/27/2025 10:41 AM EST UTOX confirmation returned Pos JYOTI & Pos Bzo, Neg FENT. Pt had random HANDBAG DESIGNER done 05/20/25 - as he was in the building. He did not have his Clonazepam with him. Have called him and left 3 messages since then for his Clonazepam count, no response. Please advise * Telephone Encounter - Mere Rios RN - 05/20/2025 1:15 PM EDT Pt came in and had random HANDBAG DESIGNER RV appointment today UTOX Was pos JYOTI, FENT, negative BZO. Reviewed UTOX results with patient. Patent stated he's still using the same marijuana from the street that he was using during his 05/06/25 HANDBAG DESIGNER 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 Reminded patient of his 05/06/25 UTOX [...] Description 06/03/2025 9:00 AM EST Clinical Support [facility] MEDICINE [address] [place] [address] Mere Rios, RN documented as of this encounter Visit Diagnoses Not on filedocumented in this encounter Additional Health Concerns Assessment Noted Time PHQ-9 Depression Total Score: 16 025 3:09 PM EDT documented as of this encounter Care Teams Hydrological Technical Officer Relationship Specialty Start Date End Date Zahraa Roca DO [address] [place] [address] PCP - General Family Medicine 07/25/18 Christian Soria FNP [address] [place] [address] Nurse Practitioner Family Medicine 06/24/23 documented as of this encounter
--- OUTSIDE RECORDS SUMMARY | 2025-05-29 14:37 | XMS_ITS | Encounter Summary ---
Author Organization [employer] Address 75 [facility] 7 [place] [address] Care Team Providers Care Video Production Engineer Name Role Phone Zahraa Roca DO Primary Care Provider [phone] Christian Soria Unavailable Unavailable Reason for Visit * Reason Onset Date Comments Appointment Request 08/03/2024 Encounter Details Date Type Department Care Team ([facility] st Contact Info) Description 08/03/2024 Telephone [facility] MEDICINE [address] [place], [place] [phone] Zahraa Roca DO 230 [place], [place] [phone] Appointment Request Social History Tobacco Use Types [...] missed appointment with dermatology. Contact pt at [phone] documented in this encounter Plan of Treatment Upcoming Encounters Date Type Department Care Team (Late st Contact Info) Description 06/03/2025 9:00 AM EST Clinical Support [facility] MEDICINE [address] [place] [address] Mere Rios RN documented as of this encounter Visit Diagnoses Not on filedocumented in this encounter Additional Health Concerns Assessment Noted Time PHQ-9 Depression Total Score: 0 11/28/19 24 11:23 AM EDT documented as of this encounter Care Teams Video Production Engineer Relationship Specialty Start Date End Date Zahraa Roca DO 230 [place] [address] PCP - General Family Medicine 07/25/18 Christian Soria FNP [address] [place] [address] Nurse Practitioner Family Medicine 06/24/23 documented as of this encounter
--- OUTSIDE RECORDS SUMMARY | 2025-05-29 14:37 | XMS_ITS | Encounter Summary ---
Author Organization [employer] Address 75 [facility] 7t [place] [address] Care Team Providers Care Payloader Operator Name Role Phone Zahraa Roca DO Primary Care Provider + [phone] Christian Soria Unavailable Unavailable Reason for Visit * Reason Comments Med Refill Encounter Details Date Type Department Care Team ([facility] st Contact Info) Description 05/09/[address] [facility] MEDICINE [address] [place], [place] [phone] Zahraa Roca DO 230 [place], [place] [phone] Anxiety Social History Tobacco Use Types Packs/Day [...] [facility] MEDICINE 230 [place] [address] Mere Rios, HENRIK documented as of this encounter Visit Diagnoses Diagnosis Anxiety Anxiety state, unspecified documented in this encounter Additional Health Concerns Assessment Noted Time PHQ-9 Depression Total Score: 16 025 3:09 PM EDT documented as of this encounter Care Teams Payloader Operator Relationship Specialty Start Date End Date Zahraa Roca DO [address] [place] [address] PCP - General Family Medicine 07/25/18 Christian Soria FNP [address] [place] [address] Nurse Practitioner Family Medicine 06/24/23 documented as of this encounter
--- OUTSIDE RECORDS SUMMARY | 2025-05-29 14:37 | XMS_ITS | Encounter Summary ---
Author Organization [employer] Address 75 [facility] 7 [place] [address] Care Team Providers Care Cardiology Manager Name Role Phone Zahraa Roca DO Primary Care Provider [phone] Christian Soria Unavailable Unavailable Reason for Visit * Reason Onset Date Comments PT-1 10/02/2024 Encounter Details Date Type Department Care Team ([facility] st Contact Info) Description 10/02/2024 Telephone [facility] MEDICINE 230 [place], [place] [phone] Zahraa Roca DO 230 [place], [place] [phone] PT-1 Social History Tobacco Use Types Packs/Day [...] status of Pt 1 Contact pt at [phone] * Telephone Encounter - Go Vasquez - 10/02/2024 9:06 AM EDT Patient calling requesting PT1 Home Address verified: Y/N: Yes Provider name or facility name: [facility] Care Resource [address] [address] Escort needed: Y/N: No Do you have a wheelchair: Y/N: No If yes- Manual or electric: Visits: (7 Days x Weekly) documented in this encounter Plan of Treatment Upcoming Encounters Date Type Department Care Team ([facility] st Contact Info) Description 06/03/2025 9:00 AM EST Clinical Support [address] [address] Mere Rios, RN documented as of this encounter Visit Diagnoses Not on filedocumented in this encounter Additional Health Concerns Assessment Noted Time PHQ-9 Depression Total Score: 0 11/28/19 24 11:23 AM EDT documented as of this encounter Care Teams Cardiology Manager Relationship Specialty Start Date End Date Zahraa Roca DO 230 [place] [address] PCP - General Family Medicine 07/25/18 Christian Soria FNP 230 [place] [address] Nurse Practitioner Family Medicine 06/24/23 documented as of this encounter
--- OUTSIDE RECORDS SUMMARY | 2025-05-29 14:37 | XMS_ITS | Encounter Summary ---
Author Organization [employer] Address [address] [place] [address] 7 [place] [address] Care Team Providers Care Kindergarten Teacher Name Role Phone Zahraa Roca DO Primary Care Provider [phone] Christian Soria Unavailable Unavailable Reason for Visit * Reason Onset Date Comments Med Refill 12/31/2022 Encounter Details Date Type Department Care Team (Late st Contact Info) Description 12/31/2022 Telephone [facility] MEDICINE 230 [place], [place] [phone] Zahraa Roca DO 230 [place], [place] [phone] Med Refill Social History Tobacco Use Types [...] 9:00 AM EST Clinical Support [facility] MEDICINE 230 [place] [address] Mere Rios, HENRIK documented as of this encounter Visit Diagnoses Not on filedocumented in this encounter Additional Health Concerns Assessment Noted Time PHQ-9 Depression Total Score: 0 08/24/19 23 2:33 PM EST documented as of this encounter Care Teams Kindergarten Teacher Relationship Specialty Start Date End Date Zahraa Roca DO [address] [place] [address] PCP - General Family Medicine 07/25/18 Christian Soria FNP [address] [place] [address] Nurse Practitioner Family Medicine 06/24/23 documented as of this encounter
--- NOTE | 2025-05-29 14:56 | MHC.CARE ---
T/W spoke with Pt at bedside as he requested to speak with CARE team in regard to OP resources. 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 Pt declined a referral to detox and also declined a referral to [facility] so he could obtain OP providers. Pt was provided with an extensive amount of pamphlets and a patient resource guide to navigate on his own. Pt will D/C.
[2025-05-29 15:28] VITALS: BP 96/57; PULSE 69; RESP 18; TEMP 36.5; O2SAT 96
[2025-05-29 15:29] VITALS: BP 96/57; PULSE 69; RESP 18; TEMP 36.5; O2SAT 96
== END 2025-05-29 15:29 | disposition home or self-care (01) ==
PROVIDERS: Emergency Provider Student in an Organized Health Care Education/Training Program; PCP Family Medicine
DX: S22.32XA Fracture of one rib, left side, initial encounter for closed fracture (principal); V18.4XXA Pedal cycle driver injured in noncollision transport accident in traffic accident, initial encounter; Y93.9 Activity, unspecified; Y92.9 Unspecified place or not applicable; F17.200 Nicotine dependence, unspecified, uncomplicated; Z71.6 Tobacco abuse counseling; F11.90 Opioid use, unspecified, uncomplicated
CPT/HCPCS: 71101; 99283; 99284

== ENCOUNTER → 2025-05-29 11:26 | Outpatient (BNV) | payer MEDICARE, MEDICAID, SELFPAY | PROVIDERS: Emergency Provider Student in an Organized Health Care Education/Training Program; PCP Family Medicine; Visit Provider Radiology Diagnostic Radiology | DX: S22.32XA Fracture of one rib, left side, initial encounter for closed fracture (principal) | CPT/HCPCS: 71101 ==

== ENCOUNTER 2025-06-01 15:46 | Emergency (ER) | payer MEDICARE, MEDICAID, SELFPAY ==
--- NOTE | 2025-06-01 | ECG_ITS ---
Test Reason : CHEST PAIN Blood Pressure : */* mmHG Vent. Rate : 55 BPM Atrial Rate : 55 BPM P-R Int : 148 ms QRS Dur : 86 ms QT Int : 454 ms P-R-T Axes : 64 50 51 degrees QTcB Int : 434 ms Sinus bradycardia Otherwise normal ECG When compared with ECG of 15-Oct-2024 12:39, Sinus rhythm has replaced Ectopic atrial rhythm Referred By: Generic ED Physician Electronically Signed By: Vin Wright
--- NOTE | ~2025-06-01 | CT_ITS ---
CLINICAL HISTORY: Sudden onset chest pain, SOB, R O PE CT angiography chest with contrast. 3D Postprocessing. Comparison: None Findings: Normal heart size. No pericardial effusion. Normal caliber thoracic aorta. No findings of aortic dissection. No threshold enlarged thoracic lymph node by CT size criteria. Normal diameter main pulmonary trunk. No pulmonary artery filling defect. Lungs and pleural spaces clear. No acute finding in the partially visualized upper abdomen. No acute or suspicious bone finding. IMPRESSION: 1. No pulmonary embolism or other acute finding in the chest. 2. Moderate coronary calcification. This document has been electronically signed by: Kobe Jung MD on 06/01/2025 20:27:37
--- NOTE | ~2025-06-01 | XR_ITS ---
CLINICAL HISTORY: CP 1 view chest x-ray. Comparison: 05/29/2025 Findings: No consolidation or effusion. Cardiac and mediastinal contours appear unremarkable. Bones unremarkable. Impression: 1. No acute pulmonary disease. This document has been electronically signed by: Mc Reyes MD on 06/01/2025 17:15:30
[2025-06-01 16:00] VITALS: BP 110/60; PULSE 68; PULSE 70; RESP 17; TEMP 36.6; O2SAT 100; O2SAT 98; BMI 22.9
--- OUTSIDE RECORDS SUMMARY | 2025-06-01 16:22 | XMS_ITS | Encounter Summary ---
Author Organization [employer] Address 75 [facility] 7 [place] [address] Care Team Providers Care Certified Registered Locksmith Name Role Phone Zahraa Roca DO Primary Care Provider [phone] Christian Soria Unavailable Unavailable Reason for Visit * Reason Onset Date Comments PT-1 04/17/2024 Encounter Details Date Type Department Care Team ([facility] st Contact Info) Description 04/17/2024 Telephone [facility] MEDICINE 230 [place], [place] [phone] Zahraa Roca DO 230 [place], [place] [phone] PT-1 Social History Tobacco Use Types Packs/Day [...] Y/N: Yes Provider name or facility name: [facility] Facility Address: [address] [place] [address] Escort needed: Y/N: No Do you have a wheelchair: Y/N: No If yes- Manual or electric: N/A Visits: Twice a month documented in this encounter Plan of Treatment Upcoming Encounters Date Type Department Care Team (Late st Contact Info) Description 06/03/2025 9:00 AM EST Clinical Support [facility] MEDICINE 230 [place] [address] Mere Rios RN documented as of this encounter Visit Diagnoses Not on filedocumented in this encounter Additional Health Concerns Assessment Noted Time PHQ-9 Depression Total Score: 0 11/28/19 11:23 AM EDT documented as of this encounter Care Teams Certified Registered Locksmith Relationship Specialty Start Date End Date Zahraa Roca DO [address] [place] [address] PCP - General Family Medicine 07/25/18 Christian Soria FNP [address] [place] [address] Nurse Practitioner Family Medicine 06/24/23 documented as of this encounter
--- OUTSIDE RECORDS SUMMARY | 2025-06-01 16:22 | XMS_ITS | Encounter Summary ---
Author Organization [employer] Address [address] [facility] [address] 7t [place] [address] Care Team Providers Care Tire Manager Name Role Phone AbelinoZahraa Primary Care Provider + [phone] Christian Soria Unavailable Unavailable Encounter Details Date Type Department Care Team (Late st Contact Info) Description 04/17/2024 Telephone [facility] 230 [place] [address] Lore Vargas DDS Social History Tobacco Use [...] AM EST Clinical Support [facility] MEDICINE [address] [place] [address] Mere Rios RN documented as of this encounter Visit Diagnoses Not on filedocumented in this encounter Additional Health Concerns Assessment Noted Time PHQ-9 Depression Total Score: 0 11/28/19 24 11:23 AM EDT documented as of this encounter Care Teams Tire Manager Relationship Specialty Start Date End Date Zahraa Roca DO 230 [place] [address] PCP - General Family Medicine 07/25/18 Christian Soria FNP [address] [place] [address] Nurse Practitioner Family Medicine 06/24/23 documented as of this encounter
--- OUTSIDE RECORDS SUMMARY | 2025-06-01 16:22 | XMS_ITS | Encounter Summary ---
Author Organization [employer] Address 75 [facility] 7 [place] [address] Care Team Providers Care Fuel Island Attendant Name Role Phone Zahraa Roca DO Primary Care Provider Christian Soria Unavailable Unavailable Reason for Visit * Reason Onset Date Comments Nurse Triage 05/03/2025 Encounter Details Date Type Department Care Team ([facility] st Contact Info) Description 05/03/2025 Telephone [facility] MEDICINE 230 [place], [place] [phone] Zahraa Roca DO 230 [place], [place] [phone] Nurse Triage Social History Tobacco Use Types [...] this time as he had missedhis last BAR USEFUL OR BUSSER 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 Pt states rescheduled to Tuesday but [...] caller accepted this outcome. Contact pt at [phone] documented in this encounter Plan of Treatment Upcoming Encounters Date Type Department Care Team (Late st Contact Info) Description 06/03/2025 9:00 AM EST Clinical Support [facility] MEDICINE [address] [place] [address] Mere Rios, HENRIK documented as of this encounter Visit Diagnoses Not on filedocumented in this encounter Additional Health Concerns Assessment Noted Time PHQ-9 Depression Total Score: 16 10/16/2 025 3:09 PM EDT documented as of this encounter Care Teams Fuel Island Attendant Relationship Specialty Start Date End Date Zahraa Roca DO [address] [place] [address] PCP - General Family Medicine 07/25/18 Christian Soria FNP [address] [place] [address] Nurse Practitioner Family Medicine 06/24/23 documented as of this encounter
--- OUTSIDE RECORDS SUMMARY | 2025-06-01 16:22 | XMS_ITS | Encounter Summary ---
Author Organization [employer] Address 75 [facility] 7 [place] [address] Care Team Providers Care Narrow Fabrics Weaver Name Role Phone Zahraa Roca DO Primary Care Provider [phone] Christian Soria Unavailable Unavailable Reason for Visit * Reason Onset Date Comments PT1 01/03/2024 Encounter Details Date Type Department Care Team ([facility] st Contact Info) Description 01/03/2024 Telephone [facility] MEDICINE 230 [place], [place] [phone] Zahraa Roca DO 230 [place], [place] [phone] PT1 Social History Tobacco Use Types Packs/Day [...] or facility name: [facility] Facility Address: [address] [place] [address] Escort needed: Y/N: No Do you have a wheelchair: Y/N: No If yes- Manual or electric: none Visits: 7 days a week documented in this encounter Plan of Treatment Upcoming Encounters Date Type Department Care Team ([facility] Contact Info) Description 06/03/2025 9:00 AM EST Clinical Support [facility] MEDICINE 230 [place] [address] Mere Rios RN documented as of this encounter Visit Diagnoses Not on filedocumented in this encounter Additional Health Concerns Assessment Noted Time PHQ-9 Depression Total Score: 0 11/28/19 24 11:23 AM EDT documented as of this encounter Care Teams Narrow Fabrics Weaver Relationship Specialty Start Date End Date Zahraa Roca DO 230 [place] [address] PCP - General Family Medicine 07/25/18 Christian Soria FNP [address] [place] [address] Nurse Practitioner Family Medicine 06/24/23 documented as of this encounter
--- OUTSIDE RECORDS SUMMARY | 2025-06-01 16:22 | XMS_ITS | Encounter Summary ---
Author Organization [employer] Address 75 [facility] 7 [place] [address] Care Team Providers Care Cereal Miller Name Role Phone Zahraa Roca DO Primary Care Provider [phone] Christian Soria Unavailable Unavailable Reason for Visit * Reason Onset Date Comments PT-1 03/15/2024 Encounter Details Date Type Department Care Team ([facility] st Contact Info) Description 03/15/2024 Telephone [facility] MEDICINE 230 [place], [place] [phone] Zahraa Roca DO 230 [place], [place] [phone] PT-1 Social History Tobacco Use Types Packs/Day [...] Y/N: Yes Provider name or facility name: [facility] Facility Address: [address] [place] [address] Escort needed: Y/N: No Do you have a wheelchair: Y/N: No If yes- Manual or electric: no Visits: 3 documented in this encounter Plan of Treatment Upcoming Encounters Date Type Department Care Team (Late st Contact Info) Description 06/03/2025 9:00 AM EST Clinical Support [facility] MEDICINE [address] [place] [address] Mere Rios, HENRIK documented as of this encounter Visit Diagnoses Not on filedocumented in this encounter Additional Health Concerns Assessment Noted Time PHQ-9 Depression Total Score: 0 11/28/19 24 11:23 AM EDT documented as of this encounter Care Teams Cereal Miller Relationship Specialty Start Date End Date Zahraa Roca DO 230 [place] [address] PCP - General Family Medicine 07/25/18 Christian Soria FNP 230 [place] [address] Nurse Practitioner Family Medicine 06/24/23 documented as of this encounter
--- OUTSIDE RECORDS SUMMARY | 2025-06-01 16:22 | XMS_ITS | Encounter Summary ---
Author Organization [employer] Address [address] [facility] 7 [place] [address] Care Team Providers Care Vigoureux Printer Name Role Phone Zahraa Roca DO Primary Care Provider [phone] Christian Soria Unavailable Unavailable Reason for Visit * Reason Onset Date Comments Referral 04/08/2025 Encounter Details Date Type Department Care Team ([facility] st Contact Info) Description 04/08/2025 Telephone [facility] [address] [place], [place] [phone] Zahraa Roca DO 230 [place], [place] [phone] Referral Social History Tobacco Use Types Packs/Day [...] the pt at home. Contact pt at [phone] Pt is requesting to speak with a nurse regarding referral. documented in this encounter Plan of Treatment Upcoming Encounters Date Type Department Care Team (Late st Contact Info) Description 06/03/2025 9:00 AM EST Clinical Support [facility] [address] [place] [address] Mere Rios RN documented as of this encounter Visit Diagnoses Not on filedocumented in this encounter Additional Health Concerns Assessment Noted Time PHQ-9 Depression Total Score: 16 025 3:09 PM EDT documented as of this encounter Care Teams Vigoureux Printer Relationship Specialty Start Date End Date Zahraa Roca DO [address] [place] [phone] PCP - General Family Medicine 07/25/18 Christian Soria FNP [address] [place] [address] Nurse Practitioner Family Medicine 06/24/23 documented as of this encounter
--- OUTSIDE RECORDS SUMMARY | 2025-06-01 16:23 | XMS_ITS | Encounter Summary ---
Author Organization [employer] Address [address] [facility] [address] 7t [place] [address] Care Team Providers Care Commercial Loan Manager Name Role Phone AbelinoZahraa Primary Care Provider + [phone] Christian Soria Unavailable Unavailable Encounter Details Date Type Department Care Team (Late st Contact Info) Description 11/03/2023 Orders Only [facility] [address] [place] [address] Provider, MD Hiral Social History Tobacco Use [...] Clinical Support [facility] [address] [place] [address] Mere Rios RN documented as of this [...] as of this encounter Care Teams Commercial Loan Manager Relationship Specialty Start Date End Date Zahraa Roca DO [address] [place] [address] PCP - General Family Medicine 07/25/18 Christian Soria FNP [address] [place] [address] Nurse Practitioner Family Medicine 06/24/23 documented as of this encounter
--- OUTSIDE RECORDS SUMMARY | 2025-06-01 16:23 | XMS_ITS | Encounter Summary ---
Author Organization [employer] Address [address] [place] [address] 7 [place] [address] Care Team Providers Care Manager Epic Name Role Phone SuryaZahraa lee Primary Care Provider + [phone] Christian Soria Unavailable Unavailable Reason for Visit * Reason Comments Med Refill Encounter Details Date Type Department Care Team (Late st Contact Info) Description 12/19/2022 Refill [facility] MED[facility]INE [address] [place], [place] [phone] Christian Soria FNP Anxiety Social History Tobacco [...] Description 06/03/2025 9:00 AM EST Clinical Support [facility] MED[facility]INE [address] [place] [address] Mere Rios RN documented as of this encounter Visit Diagnoses Diagnosis Anxiety Anxiety state, unspecified documented in this encounter Additional Health Concerns Assessment Noted Time PHQ-9 Depression Total Score: 0 08/24/19 2:33 PM EST documented as of this encounter Care Teams Manager Epic Relationship Specialty Start Date End Date Zahraa Roca DO 230 [place] [address] PCP - General Family Medicine 07/25/18 Christian Soria FNP 230 [place] [address] Nurse Practitioner Family Medicine 06/24/23 documented as of this encounter
--- OUTSIDE RECORDS SUMMARY | 2025-06-01 16:23 | XMS_ITS | Encounter Summary ---
Author Organization [employer] Address [address] [facility] 7t [place] [address] Care Team Providers Care Java User Interface Developer Name Role Phone Zahraa Roca DO Primary Care Provider + [phone] Christian Soria Unavailable Unavailable Reason for Visit * Reason Comments Med Refill Encounter Details Date Type Department Care Team ([facility] st Contact Info) Description 05/09/2025 Refill [facility] [address] [place], [place] [phone] Zahraa Roca DO 230 [place], [place] [phone] Anxiety Social History Tobacco Use Types Packs/Day [...] [facility] [address] [place] [address] Mere Rios, HENRIK documented as of this encounter Visit Diagnoses Diagnosis Anxiety Anxiety state, unspecified documented in this encounter Additional Health Concerns Assessment Noted Time PHQ-9 Depression Total Score: 16 025 3:09 PM EDT documented as of this encounter Care Teams Java User Interface Developer Relationship Specialty Start Date End Date Zahraa Roca DO [address] [place] [phone] PCP - General Family Medicine 07/25/18 Christian Soria FNP [address] [place] [phone] Nurse Practitioner Family Medicine 06/24/23 documented as of this encounter
--- OUTSIDE RECORDS SUMMARY | 2025-06-01 16:23 | XMS_ITS | Encounter Summary ---
Author Organization [employer] Address [address] [facility] 7t [place] [address] Care Team Providers Care Mine Deputy Name Role Phone Zahraa Roca DO Primary Care Provider + [phone] Christian Soria Unavailable Unavailable Reason for Visit * Reason Comments Med Refill Encounter Details Date Type Department Care Team ([facility] st Contact Info) Description 02/14/2025 Refill [facility] MEDICINE 230 [place], [place] [phone] Zahraa Roca DO 230 [place], [place] [phone] Anxiety Social History Tobacco Use Types Packs/Day [...] 06/03/2025 9:00 AM EST Clinical Support [facility] [address] [place] [address] Mere Rios, HENRIK documented as of this encounter Visit Diagnoses Diagnosis Anxiety Anxiety state, unspecified documented in this encounter Additional Health Concerns Assessment Noted Time PHQ-9 Depression Total Score: 16 025 3:09 PM EDT documented as of this encounter Care Teams Mine Deputy Relationship Specialty Start Date End Date Zahraa Roca DO [address] [place] [address] PCP - General Family Medicine 07/25/18 Christian Soria FNP [address] [place] [phone] Nurse Practitioner Family Medicine 06/24/23 documented as of this encounter
--- OUTSIDE RECORDS SUMMARY | 2025-06-01 16:23 | XMS_ITS | Encounter Summary ---
Author Organization [employer] Address [address] [facility] [address] 7[address] [place] [address] Care Team Providers Care Peanut Cleaner Name Role Phone Zahraa Roca DO Primary Care Provider + [phone] Christian Soria Unavailable Unavailable Encounter Details Date Type Department Care Team (Late st Contact Info) Description 10/10/2024 Orders Only [facility] MED[facility]INE 230 [place], [place] [phone] Zahraa Roca DO 230 [place] [address] Social History Tobacco Use Types Packs/Day Years [...] Description 06/03/2025 9:00 AM EST Clinical Support [facility] [address] [place] [address] Mere Rios RN documented as of this encounter Visit Diagnoses Not on filedocumented in this encounter Additional Health Concerns Assessment Noted Time PHQ-9 Depression Total Score: 0 11/28/19 24 11:23 AM EDT documented as of this encounter Care Teams Peanut Cleaner Relationship Specialty Start Date End Date Zahraa Roca DO [address] [place] [address] PCP - General Family Medicine 07/25/18 Christian Soria FNP [address] [place] [phone] Nurse Practitioner Family Medicine 06/24/23 documented as of this encounter
--- OUTSIDE RECORDS SUMMARY | 2025-06-01 16:23 | XMS_ITS | Encounter Summary ---
Author Organization [employer] Address [address] [facility] 7t [place] [address] Care Team Providers Care Regasification Plant Operator Name Role Phone Zahraa Roca DO Primary Care Provider [phone] Christian Soria Unavailable Unavailable Reason for Visit * Reason Onset Date Comments Appt question 08/09/2024 Encounter Details Date Type Department Care Team ([facility] st Contact Info) Description 08/09/2024 Telephone [facility] MED[facility]INE 230 [place], [place] [phone] Zahraa Roca DO 230 [place], [place] [phone] Appt question Social History Tobacco Use Types [...] aug appt its for that. Any questions [phone] documented in this encounter Plan of Treatment Upcoming Encounters Date Type Department Care Team (Late st Contact Info) Description 06/03/2025 9:00 AM EST Clinical Support [facility] [address] [place] [address] Mere Rios, HENRIK documented as of this encounter Visit Diagnoses Not on filedocumented in this encounter Additional Health Concerns Assessment Noted Time PHQ-9 Depression Total Score: 0 11/28/19 24 11:23 AM EDT documented as of this encounter Care Teams Regasification Plant Operator Relationship Specialty Start Date End Date Zahraa Roca DO 230 [place] [address] PCP - General Family Medicine 07/25/18 Christian Soria FNP [address] [place] [address] Nurse Practitioner Family Medicine 06/24/23 documented as of this encounter
--- OUTSIDE RECORDS SUMMARY | 2025-06-01 16:23 | XMS_ITS | Clinical Summary ---
Author Organization [employer] Address [address] [facility] 7t [place] [address] Care Team Providers Care Pole Inspector Name Role Phone AbelinoZahraa Primary Care Provider [phone] Christian Soria Unavailable Unavailable Allergies No known [...] any issues or concerns, he should contact [facility]. All his questions were answered. [...] Encounters Date Type Department Care Team Description 05/31/2025 Telephone [facility] MEDIC[facility] [address] [place] [address] Zahraa Roca DO 05/29/2025 Orders Only [facility] External Provider, [facility] 05/22/[address] [address] Zahraa Roca DO Med Refill 05/20/2025 11:00 AM EDT Clinical Support [address] [address] Mere Rios, HENRIK Long-term current use of benzodiazepine (Primary Dx) 05/20/[address] [address] Mere Riso, HENRIK Clonazepam count 05/20/[address] [address] Mere Rios RN Random BATTERY TECHNICIAN RV today; UTOX Pos JYOTI, FENT, Neg BZO; UTOX Confirmation 05/20/2025 Travel 05/20/[address] [address] Zahraa Roca DO Appointment Request 05/14/2025 Outside Procedure [facility] [address] [place] [phone] Garo Malloyn, OD Presbyopia (Primary Dx) 05/09/[address] [address] Zahraa Roca DO Anxiety 05/09/[address] [address] Zahraa Roca DO Anxiety 05/06/2025 1:00 PM EDT Office Visit [facility] [address] [place] [address] Aniyah Malloy, OD Hyperopia of both eyes (Primary Dx) 05/06/2025 9:30 AM EDT Clinical Support [address] [address] Mere Rios, HENRIK Long-term current use of benzodiazepine (Primary Dx) 05/06/2025 Telephone [facility] [address] [place] [address] Mere Rios, HENRIK SIDDHARTHA scoring; UTOX Pos JYOTI 05/06/2025 Travel 05/03/[address] [address] Zahraa Roca, Nurse Triage 05/03/[address] [address] Zahraa Roca, Anxiety 04/29/[address] [address] Mere Rios, HENRIK NCNS BATTERY TECHNICIAN RV today 04/18/[address] [address] Zahraa Roca, Anxiety 04/09/[address] [address] Zahraa Roca DO Appointment Request 04/08/[address] [address] Zahraa Roca DO Referral 03/20/[address] [address] Zahraa Roca DO Refrerral questions 03/20/[address] [address] Zahraa Roca DO Anxiety 03/18/2025 3:30 PM EDT Office Visit [facility] [address] [place] [address] Tarka, Leela, OD Vitreous floaters of right eye (Primary Dx); Anatomical narrow angle of both eyes; Presbyopia 03/18/2025 Travel 03/13/2025 10:00 AM EDT Office Visit [facility] [address] [place] [address] Zahraa Roca DO Anxiety (Primary Dx); Chronic [...] lower extremity; Paresthesia of skin 03/13/2025 Telephone [facility] [address] [place], [place] [phone] Brandon Staufferssica, OD 03/13/2025 Telephone [facility] [address] [place] [address] Mere Rios RN Per PCP cancel BATTERY TECHNICIAN this month 03/13/2025 Travel 03/12/2025 Telephone [facility] [address] [place] [address] Zahraa Roca DO Chart Prep 03/06/2025 Patient Outreach [address] [address] Zahraa Roca DO Pre-visit Planning (SDOH screening completed on 10/08/24 ) 03/04/[address] [address] Zahraa Roca DO PT1 from Last 3 Months Immunizations Immunization Administration [...] Description 06/03/2025 9:00 AM EST Clinical Support [facility] [address] [place] [phone] Mere Rios, RN Health Maintenance Due Date [...] AM EST Narrative 05/29/2025 11:58 AM EST [address] [address] XRay Report Signed Patient: Cristobal Enriquez MR#: [id number] 54 : 1970 Acct:[id number] Age/Sex: 55 / M ADM Date: 05/29/25 Loc: HO.ED Attending Dr: Ordering Physician: Lynnette Rosado DO Date of Service: 05/29/25 Procedure(s): XR ribs LT min 3V w CXR1V Accession Number(s): [id number] cc: Lynnette Rosado DO; Zahraa Roca DO [...] 05/29/25 1155 DD/ 1152 TD/TT: 05/29/25 1150 [employer] Distributor: Procedure Note Donotuseinterpreter, Image - 05/29/2025 [place] [address] XRay Report Signed Patient: Cristobal Enriquez JMR#: [id number] 54 : 1970Acct:[id number] Age/Sex: 55 / MADM Date: 05/29/25 Loc: HO.ED Attending Dr: Ordering Physician: Lynnette Rosado DO Date of Service: 05/29/25 Procedure(s): XR ribs LT min 3V w CXR1V Accession Number(s): [id number] cc: Lynnette Rosado DO; Zahraa Roca DO [...] 05/29/25 1155 DD/ 1152 TD/TT: 05/29/25 1150 [employer] Distributor: [facility] External Provider IMG XR PROCEDURES Final Result * (ABNORMAL) POCT MARIO-14 Urine Drug Screen (05/20/2025 1:03 PM EDT) Only the most recent of2 resultswithin the time period is included. THC Positive(A) Negative Cocaine Screen, Urine Positive(A) Negative Opiate Screen, Urine Negative Negative Methamphetamine Screen Urine Negative Negative Amphetamine Screen, Urine Negative Negative Benzodiazepines Screen, Urine Negative Negative Comment:BATTERY TECHNICIAN pt, on Clonazepa m Barbiturate Screen, Urine [...] - 05/20/2025 1:03 PM EDT UTOX cup Lot#[id number] Exp. 04/30/26 Internal Pass Control Zahraa Roca DO POINT OF CARE TEST ENTER/JOANNA T ORDERABLES Final Result * Drug Monitoring, Benzodiazepines, Quantitative, Urine (05/20/2025 12:30 PM EDT) Nordiazepam, GCMS Urine NEGATIVE [facility] Comment:CUTOFF 50 NG/ML Oxazepam, GCMS Urine NEGATIVE [facility] Comment:CUTOFF 50 NG/ML Lorazepam GCMS Urine NEGATIVE [facility] Comment:CUTOFF 50 NG/ML Alprazolam, GCMS Urine NEGATIVE [facility] Comment:CUTOFF 25 NG/ML Alphahydroxytriazolam, GCMS Ur NEGATIVE [facility] Comment:CUTOFF 50 NG/ML Temazepam, GCMS Urine NEGATIVE [facility] Comment:CUTOFF 50 NG/ML Alphahydroxymidazolam, GCMS Ur NEGATIVE [facility] Comment:CUTOFF 50 NG/ML Aminoclonazepam, GCMS Urine 140 [facility] Comment:CUTOFF 25 NG/ML Flurazepam Metabolite,GCMS Ur NEGATIVE [facility] Comment:CUTOFF 50 NG/ML Benzodiazepines Comments SEE NOTE [facility] Comment:This drug testing is for medical treatment only. Analysiswas performed as non-forensic testing and these resultsshould be used only by healthcare providers to renderdiagnosis or treatment, or to monitor progress of medicalconditions.Benzodiazepines Notes:Aminoclonazepam detected is consistent with the use of thedrug ClonazepamLDT Notes:Confirmation tests were developed and their analyticalperformance characteristics have been determined by [employer]. It has not been cleared or approved by the FDA.This assay has been validated pursuant to the CLIAregulations and is used for clinical purposes.Healthcare Providers needing Interpretation assistance,please contact us at [phone] ( ) M-F,8am to 10pm ESTPERFORMING SITE:[facility] MicroEval [facility], [address] [place] [phone] Fashion Photographer: SOCRATES MATHIAS MD, CLIA:[id number] Urine (Urine, Random) 05/20/2025 12:30 PM EDT 05/20/2025 4:29 PM EDT us Zahraa Roca DO LAB URINE ORDERABLES Final R esult [facility] [address] [place] [address] [phone] * Drug Monitoring, Fentanyl, with Confirmation, Urine (05/20/2025 12:30 PM EDT) Fentanyl, Ur NEGATIVE [facility] Comment:CUTOFF 0.5 NG/ML Norfentanyl, Ur NEGATIVE [facility] Comment:CUTOFF 0.5 NG/ML Fentanyl Note SEE NOTE [facility] Comment: NOTES AND COMMENTSThis drug testing is for medical treatment only. Analysiswas performed as non-forensic testing and these resultsshould be used only by healthcare providers to renderdiagnosis or treatment, or to monitor progress of medicalconditions. LDT Notes: Confirmation tests were developed andtheir analytical performance characteristics have beendetermined by [employer]. It has not been cleared orapproved by the FDA. This assay has been validated pursuantto the CLIA regulations and is used for clinical purposes.Healthcare Providers needing Interpretation assistance,please contact us at [phone] ( ) M-F,8am to 10pm ESTThis drug testing is for medical treatment only. Analysiswas performed as non-forensic testing and these resultsshould be used only by healthcare providers to renderdiagnosis or treatment, or to monitor progress of medicalconditions.PERFORMING SITE:[facility] [employer] [phone] LaboratoryDirector: FER ARREAGA MD, CLIA: [id number] Urine (Urine, Random) 05/20/2025 12:30 PM EDT 05/20/2025 4:29 PM EDT us Zahraa Roca DO LAB URINE ORDERABLES Final R esult [facility] [address] [place] [address] [phone] * Drug Monitoring, Cocaine Metabolite, Quantitative, Urine (05/20/2025 12:30 PM EDT) Only the most recent of2 resultswithin the time period is included. Benzoylecgonine [address] [facility] Comment:CUTOFF 100 NG/ML Cocaine Comments SEE NOTE [facility] Comment:This drug testing is for medical treatment only. Analysiswas performed as non-forensic testing and these resultsshould be used only by healthcare providers torender diagnosis or treatment, or to monitor progress ofmedical conditions.Cocaine Notes:Benzoylecgonine detected is consistent with the use of thedrug Cocaine.LDT Notes:Confirmation tests were developed and their analyticalperformance characteristics have been determined by [employer]. It has not been cleared or approved by the FDA.This assay has been validated pursuant to the CLIAregulations and is used for clinical purposes.Healthcare Providers needing Interpretation assistance,please contact us at [phone] ( ) M-F,8am to 10pm EST Urine (Urine, Random) 05/20/2025 12:30 PM EDT 05/20/2025 4:29 PM EDT Zahraa [employer] [facility] URINE ORDERABLES Final R [facility] Performing Organization Address [facility] Co de Phone Number [facility] [address] [place] [phone] * (ABNORMAL) Drug Monitoring, Methadone Metabolite, Screen, Urine (05/20/2025 12:30 PM EDT) Methadone Screen, Urine Positive( A) Not Detect ng/mL [facility] Comment:Methadone cut-off is 300 ng/mL.Positive results are unconfirmed and should not be used fornon-medical purposes. Urine (Urine, Random) 05/20/2025 12:30 PM EDT 05/20/2025 4:29 PM EDT [facility]a [employer] [facility] [facility] URINE ORDERABLES Final R esult Performing Organization Address City/[facility] Co de Phone Number [facility] [address] [place] [address] [phone] * Vitamin D, 25-Hydroxy, Total, Immunoassay (03/13/2025 10:55 AM EDT) Vitamin D 25-OH Total 37.0 >30 ng/mL [facility] Comment: Health Based Reference Values*< 20 ng/mL Mjsjalxbg69-73 ng/mL Insufficient> 30 ng/mL Sufficient*Sissy JONAS. N [...] EDT 03/13/2025 12:29 PM EDT us Zahraa Rcoa DO LAB BLOOD ORDERABLES Final R esult [facility] [address] [place] [address] [phone] * Hepatitis C Viral RNA, Quantitative, Real-Time PCR (03/13/2025 10:55 AM EDT) Pathologist [facility] Hepatitis C Viral Load <15 NOT DETECTED NOT DETECTED IU/mL [facility] HCV Log PCR <1.18 NOT DETECTED NOT DETECTED Log IU/mL [facility] Comment:For additional infor dorothy, please refer tohttp://education.[email or web address]/faq/PVV85r1(This link is being provided for informational/educational purposes only.)THIS TEST WAS PERFORMED AT:[facility] [place] [phone] MATHIAS MD Blood Venous blood specimen / Unknown 03/13/2025 10:55 AM EDT 03/13/2025 12:24 PM EDT us Zahraa Roca DO LAB BLOOD ORDERABLES Final R esult [facility] [address] [place] [address] [phone] * (ABNORMAL) CBC auto differential (03/13/2025 10:55 AM EDT) White Blood Count 5.2 4.8 - 10.8 X10*3/uL [facility] Red Blood Count 4.06(L) 4.60 - 5.80 X10*6/uL [facility] Hemoglobin 12.0(L) 14.0 - 18.0 g/dl [facility] Hematocrit 36.5(L) 42.0 - 52.0 % [facility] Mean Corpuscular Volume 89.9 80.0 - 98.0 [facility] Mean Corpuscular Hemoglobin 29.6 27.0 - 33.0 pg [facility] Mean Corpuscular HGB Conc 32.9 31.0 - 36.0 g/dl [facility] Red Cell Distribution Width 12.0 11.0 - 16.0 % [facility] Platelet Count 151(L) 160 - 400 X10*3/uL [facility] Mean Platelet Volume 11.1 9.4 - 12.4 [facility] Neutrophils Percent Auto 68.9 45 - 73 % [facility] Imm Gran Pct Auto 0.4 0.0 - 0.4 % [facility] Lymphocytes Percent Auto 20.9 20 - 40 % [facility] Monocytes Percent Auto 6.7 2 - 11 % [facility] Eosinophils Percent Auto 2.5 0 - 4 % [facility] Basophils Percent Auto 0.6 0 - 2 % [facility] NRBC Pct Auto 0.0 0.0 - 0.2 /100WBC [facility] Neutrophils Absolute Auto 3.6 2.0 - 8.3 x10*3/uL [facility] Imm Gran Abs Auto 0.02 0.00 - 0.03 X10*3/uL [facility] Lymphocytes Absolute Auto 1.1(L) 1.2 - 4.9 X10*3/uL [facility] Monocytes Absolute Auto 0.4 0.1 - 1.2 X10*3/uL [facility] Eosinophils Absolute Auto 0.1 0.0 - 0.4 X10*3/uL [facility] Basophils Absolute Auto 0.0 0.0 - 0.2 X10*3/uL [facility] NRBC Abs Auto 0.000 0.0 - 0.012 X10*3/uL [facility] Blood Venous blood specimen / Unknown 03/13/2025 10:55 AM EDT 03/13/2025 12:19 PM EDT Zahraa Roca LAB BLOOD ORDERABLES Final R esult Performing Organization Address City/[facility] Co de Phone Number [facility] [address] [place] [phone] * Hepatitis B surface antigen, EIA (03/13/2025 10:55 AM EDT) Hepatitis B Surface Ag Negative Negative [facility] Blood Venous blood specimen / Unknown 03/13/2025 10:55 AM EDT 03/13/2025 12:24 PM EDT Zahraa Roca LAB BLOOD ORDERABLES Final R esult Performing Organization Address City/[facility] Co de Phone Number [facility] [address] [place] [address] [phone] * RPR (Monitor) with Reflex to??Titer (03/13/2025 10:55 AM EDT) RPR (Monitor) w/Refl Titer NON-REACTI VE NON-REACT OTONIEL [facility] Comment:THIS TEST WAS PERFOR MED AT:[facility] [place] [phone] MATHIAS MD Rapid Plasma Reagin Ab Titer TNP [facility] Blood Venous blood specimen / Unknown 03/13/2025 10:55 AM EDT 03/13/2025 12:24 PM EDT Zahraa Roca DO LAB BLOOD ORDERABLES Final R esult [facility] [address] [place] [address] [phone] * HIV-1/2 Antigen and Antibodies, Fourth Generation, with Reflexes (03/13/2025 10:55 AM EDT) HIV AB/AG Nonreactive Nonreactive [facility] Comment:HIV-1 p24 Ag and/or HIV-1/HIV-2 Ab not detected.A test result that is nonreactive does not exclude thepossibility of exposure to or infection with HIV-1 and/orHIV-2. Nonreactive results in this assay for individualswith prior exposure to HIV-1 and/or HIV-2 may be due toantigen and antibody levels that are below the limit ofdetection of this assay.[facility] HIV Ag/Ab Combo assay result andsupplemental assay results should be interpreted inconjunction with the patient's clinical presentation,history and other laboratory results. If the results areinconsistent with clinical evidence, additional testing issuggested to confirm the result. Blood Venous blood specimen / Unknown 03/13/2025 10:55 AM EDT 03/13/2025 12:24 PM EDT Zahraa Londonjaspaljun DO LAB BLOOD ORDERABLES Final R esult Performing Organization Address [facility] Co de Phone Number [facility] [address] [place] [phone] * Hepatitis B Surface Antibody, Qualitative (03/13/2025 10:55 AM EDT) ~Hepatitis B Surface Antibody NONREACTIVE Nonreactive [facility] Comment:Nonreactive: < 8.00 mIU/mL Blood Venous blood specimen / Unknown 03/13/2025 10:55 AM EDT 03/13/2025 12:24 PM EDT Zahraa Londonjaspaljun DO LAB BLOOD ORDERABLES Final R esult Performing Organization Address [facility] Co de Phone Number [facility] [address] [place] [phone] * TSH (03/13/2025 10:55 AM EDT) Thyroid Stimulating Hormone 2.23 0.32 - 4.0 uIU/mL [facility] Comment:TSH 3rd Generation ( [facility]) Blood Venous blood specimen / Unknown 03/13/2025 10:55 AM EDT 03/13/2025 12:29 PM EDT Zahraa Londonjaspaljun DO LAB BLOOD ORDERABLES Final R esult Performing Organization Address [facility] Co de Phone Number [facility] [address] [place] [phone] * T4, Free (03/13/2025 10:55 AM EDT) Free T4 (Free Thyroxine) 1.01 0.71 - 1.85 ng/dL [facility] Blood Venous blood specimen / Unknown 03/13/2025 10:55 AM EDT 03/13/2025 12:29 PM EDT Zahraa Abelino DO LAB BLOOD ORDERABLES Final R esult [facility] [address] [place] [phone] * Hemoglobin A1c (03/13/2025 10:55 AM EDT) Hemoglobin A1c 5.5 <6.0 % [facility] Comment:Hemoglobin A1C Refer ence Range Adults: 4.8 - 6.0 % Non diabetic: < 6.0 % Goal: < 7.0 %Additional Action Suggested: > 8.0 %Note: Hemoglobin A1c results are invalid for patients with abnormal amounts of HbF. Blood transfusions may impact the HbA1c concentration in the patient sample. Estimated Average Glucose 111 mg/dL [facility] Comment:eAG = Estimated ave rage glucose which is %A1C expressed asaverage glucose, using the formula of the Y4Q-ZowolnzUzboxbg Glucose study (ADAG), Diabetes Care, Vol.31,#8,Feb. 2007 Blood Venous blood specimen / Unknown 03/13/2025 10:55 AM EDT 03/13/2025 12:19 PM EDT Zahraa Yudijun DO LAB BLOOD ORDERABLES Final R esult [facility] [address] [place] [phone] * Hepatic Function Panel (03/13/2025 10:55 AM EDT) Bilirubin, Total 0.3 0.0 - 1.0 mg/dL [facility] Bilirubin, Direct 0.1 0.0 - 0.5 mg/dL [facility] Aspartate Amino Transferase 25 5 - 37 U/L [facility] Alanine Aminotransferase 16 0 - 40 U/L [facility] Total Protein 6.5 6.5 - 8.0 g/dL [facility] Albumin Level 4.1 3.5 - 5.0 g/dL [facility] Alkaline Phosphatase 116 39 - 117 U/L [facility] Blood Venous blood specimen / Unknown 03/13/2025 10:55 AM EDT 03/13/2025 12:29 PM EDT Zahraa Roca DO LAB BLOOD ORDERABLES Final R esult Performing Organization Address [facility] Co de Phone Number [facility] [address] [place] [phone] * Lipid Panel, Standard (03/13/2025 10:55 AM EDT) Triglycerides 68 <150 mg/dL [facility] Comment:Desirable Triglyceri de: less than 150 mg/dLBorderline High Triglyceride 150-199 mg/dLHigh Triglyceride: 200-499 mg/dLVery High Triglyceride: greater than or equal to 5OO mg/dL Cholesterol 150 <200 mg/dL [facility] Comment:Desirable Cholestero l: less than 200 mg/dLBorderline High Cholesterol: 200-239 mg/dLHigh Cholesterol: greater than 239 mg/dL LDL Cholesterol Calculated 89 <100 mg/dL [facility] Comment:Desirable LDL: less than 100 mg/dLNear Optimal/Above Optimal LDL: 110- 129 mg/dLBorderline High LDL: 130-159 mg/dLHigh LDL: 160-189 mg/dLVery High LDL: greater than or equal to 190 mg/dL HDL Cholesterol 48 >40 mg/dL [facility] Comment:Desirable HDL: great er than 40 mg/dL Note: This HDL assay may give artificially low results in patients with liver disease. Blood Venous blood specimen / Unknown 03/13/2025 10:55 AM EDT 03/13/2025 12:29 PM EDT us Zahraa Roca DO LAB BLOOD ORDERABLES Final R esult Performing Organization Address [facility]/ZIP Co de Phone Number [facility] [address] [place] [phone] * (ABNORMAL) Basic Metabolic Panel (03/13/2025 10:55 AM EDT) Sodium 138 135 - 145 mmol/L [facility] Potassium 4.2 3.3 - 5.1 mmol/L [facility] Chloride 104 96 - 108 mmol/L [facility] Carbon Dioxide 27 22 - 29 mmol/L [facility] Anion Gap 11(L) 12 - 20 [facility] Urea Nitrogen (BUN) 17(H) 9 - 16 mg/dL [facility] Creatinine, Serum 0.72 0.5 - 1.4 mg/dL [facility] Estimated Glomerular Filt Rate >60 [facility] Comment:Chronic Kidney Disea se: Estimated GFR < 60 mL/min/1.18m9Ebdfyx Kidney Disease: Estimated GFR < 15 mL/min/1.73m2 Glucose 92 60 - 115 mg/dL [facility] Calcium 8.7 8.4 - 10.2 mg/dL [facility] Blood Venous blood specimen / Unknown 03/13/2025 10:55 AM EDT 03/13/2025 12:29 PM EDT us Zahraa Roca DO LAB BLOOD ORDERABLES Final R esult [facility] [address] [place] [address] [phone] * XR Facial Bones 3+ Views (03/13/2025 10:46 AM EDT) Anatomical Region Laterality Modality Head, Neck, Facial bones Radiogr aphic Imaging 03/13/2025 10:4 6 AM EDT Narrative 03/13/2025 12:30 PM EDT [address] [address] XRay Report Signed Patient: Cristobal Enriquez MR#: [id number] 54 : 1970 Acct:[id number] Age/Sex: 54 / M ADM Date: 03/13/25 Loc: [facility] Attending Dr: Zahraa Roca DO Ordering Physician: Zahraa Roca DO Date of Service: 03/13/25 Procedure(s): XR facial bones min 3V Accession Number(s): [id number] cc: Zahraa Roca DO EXAMINATION: XR FACIAL [...] 03/13/25 1227 DD/ 1046 TD/TT: 03/13/25 1100 [employer] Distributor: Procedure Note Donotuseinterpreter, Image - 03/13/[address] [address] XRay Report Signed Patient: Cristobal Enriquez JMR#: [id number] 54 : 1970Acct:[id number] Age/Sex: 54 / MADM Date: 03/13/25 Loc: HO.[facility]CL Attending Dr: Zahraa Roca DO Ordering Physician: Zahraa Roca DO Date of Service: 03/13/25 Procedure(s): XR facial bones min 3V Accession Number(s): [id number] cc: Zahraa Roca DO EXAMINATION: XR FACIAL [...] 03/13/25 1227 DD/ 1046 TD/TT: 03/13/25 1100 [employer] Distributor: us Zahraa Roca DO IMG XR PROCEDURES Final Resu lt * XR Wrist 3+ Views Right (03/13/2025 10:42 AM EDT) Anatomical Region Laterality Modality Upper Extremities, Wrist Right Radiogr aphic Imaging 03/13/2025 10:4 2 AM EDT Narrative 03/13/2025 12:32 PM EDT [place] [address] XRay Report Signed Patient: Cristobal Enriquez MR#: [id number] 54 : 1970 Acct:[id number] Age/Sex: 54 / M ADM Date: 03/13/25 Loc: [facility] Attending Dr: Zahraa Roca DO Ordering Physician: Zahraa Roca DO Date of Service: 03/13/25 Procedure(s): XR wrist RT min 3V Accession Number(s): [id number] cc: Zahraa Roca DO EXAMINATION: XR WRIST, RIGHT CLINICAL INFORMATION: R wrist swelling and pain COMPARISON: 10/05/2021. TECHNIQUE: PA, lateral, oblique, and scaphoid views of the right wrist. FINDINGS: No fracture, dislocation, or suspicious bone lesion. There is mild to moderate dorsal lunate tilt. Severe radiocarpal joint space narrowing with [id number] appearance. There is a subchondral cyst in [...] 03/13/25 1229 DD/ 1042 TD/TT: 03/13/25 1100 [employer] Distributor: Procedure Note Donotuseinterpreter, Image - 03/13/[address] [address] XRay Report Signed Patient: Cristobal Enriquez JMR#: [id number] 54 : 1970Acct:[id number] Age/Sex: 54 / MADM Date: 03/13/25 Loc: [facility] Attending Dr: Zahraa Roca DO Ordering Physician: Zahraa Roca DO Date of Service: 03/13/25 Procedure(s): XR wrist RT min 3V Accession Number(s): [id number] cc: Zahraa Roca DO EXAMINATION: XR WRIST, RIGHT CLINICAL INFORMATION: R wrist swelling and pain COMPARISON: 10/05/2021. TECHNIQUE: PA, lateral, oblique, and scaphoid views of the right wrist. FINDINGS: No fracture, dislocation, or suspicious bone lesion. There is mild to moderate dorsal lunate tilt. Severe radiocarpal joint space narrowing with [id number] appearance. There is a subchondral cyst in [...] 03/13/25 1229 DD/ 1042 TD/TT: 03/13/25 1100 Recyclable Materials Distributor: us Zahraa Roca DO IMG XR PROCEDURES Final Resu lt * XR Hand 3+ Views Right (03/13/2025 10:40 AM EDT) Anatomical Region Laterality Modality Upper Extremities, Hand Right Radiogra phic Imaging 03/13/2025 10:4 0 AM EDT Narrative 03/13/2025 12:32 PM EDT [place] [address] XRay Report Signed Patient: Cristobal Enriquez MR#: [id number] 54 : 1970 Acct:[id number] Age/Sex: 54 / M ADM Date: 03/13/25 Loc: [facility] Attending Dr: Zahraa Roca DO Ordering Physician: Zahraa Roca DO Date of Service: 03/13/25 Procedure(s): XR hand RT min 3V Accession Number(s): [id number] cc: Zahraa Roca DO EXAMINATION: XR HAND, [...] 03/13/25 1229 DD/ 1040 TD/TT: 03/13/25 1100 Recyclable Materials Distributor: Procedure Note Donotuseinterpreter, Image - 03/13/[address] [address] XRay Report Signed Patient: Cristobal Enriquez JMR#: [id number] 54 : 1970Acct:[id number] Age/Sex: 54 / MADM Date: 03/13/25 Loc: [facility] Attending Dr: Zahraa Roca DO Ordering Physician: Zahraa Roca DO Date of Service: 03/13/25 Procedure(s): XR hand RT min 3V Accession Number(s): [id number] cc: Zahraa Roca DO EXAMINATION: XR HAND, [...] 03/13/25 1229 DD/ 1040 TD/TT: 03/13/25 1100 Recyclable Materials Distributor: Zahraa Roca DO IMG XR PROCEDURES Final Resu lt * Hm Colonoscopy (03/16/2023 9:43 AM EDT) Historical Provider HEALTH MAINTENANCE Final Result * Fecal Globin by Immunochemistry (07/13/2022 12:00 AM EST) Fecal Globin By Immunochemistry SEE NOTE [employer] [place] [employer] Comment: FECAL GLOBIN BY IMMUNOCHEMISTRY Micro Number: [id number] Test Status: Final Specimen Source: Insure (tm) fobt test card Specimen Quality: Adequate Fecal Globin: Not Detected 07/13/2022 07/28/2022 8:2 7 AM EST Zahraa Roca DO LAB BODY FLUIDS AND STOOLS O RDERABLES Final Result [employer] [address] [place] [address], [place] [address] [employer] [place] [employer] [address] [facility], ([address]) [place] [address] from Last 3 Months or Most Recently Relevant to Health Maintenance Insurance [facility] STANDARD MEDICARE DENTAL-[facility] MEDICAID STAND ADULT Care Teams Pole Inspector Relationship Specialty Start Date End Date Zahraa Roca DO [address] [place] [address] PCP - General Family Medicine 07/25/18 Christian Soria FNP [address] [place] [address] Nurse Practitioner Family Medicine 06/24/23
--- OUTSIDE RECORDS SUMMARY | 2025-06-01 16:23 | XMS_ITS | Encounter Summary ---
Author Organization [employer] Address [address] [facility] 7 [place] [address] Care Team Providers Care Cnc Mill Programmer Name Role Phone Zahraa Roca DO Primary Care Provider [phone] Christian Soria Unavailable Unavailable Reason for Visit * Reason Onset Date Comments Appointment Request 06/19/2024 Encounter Details Date Type Department Care Team ([facility] st Contact Info) Description 06/19/2024 Telephone [facility] MEDICINE [address] [place], [place] [phone] Zahraa Roca DO [address] [place], [place] [phone] Appointment Request Social History Tobacco Use Types [...] 9:00 AM EST Clinical Support [facility] MEDICINE [address] [place] [address] Mere Rios RN documented as of this encounter Visit Diagnoses Not on filedocumented in this encounter Additional Health Concerns Assessment Noted Time PHQ-9 Depression Total Score: 0 11/28/19 24 11:23 AM EDT documented as of this encounter Care Teams Cnc Mill Programmer Relationship Specialty Start Date End Date Zahraa Roca DO [address] [place] [address] PCP - General Family Medicine 07/25/18 Christian Soria FNP [address] [place] [address] Nurse Practitioner Family Medicine 06/24/23 documented as of this encounter
--- OUTSIDE RECORDS SUMMARY | 2025-06-01 16:23 | XMS_ITS | Encounter Summary ---
Author Organization [employer] Address [address] [place] [address] 7 [place] [address] Care Team Providers Care C Iron Worker Name Role Phone Zahraa Roca DO Primary Care Provider + [phone] Christian Soria Unavailable Unavailable Reason for Visit * Reason Comments Med Refill Encounter Details Date Type Department Care Team (Late st Contact Info) Description 12/31/2022 Refill [facility] MEDICINE [address] [place] [address] Christian Soria FNP Anxiety Social History Tobacco [...] 9:00 AM EST Clinical Support [facility] MEDICINE [address] [place] [address] Mere Rios RN documented as of this encounter Visit Diagnoses Diagnosis Anxiety Anxiety state, unspecified documented in this encounter Additional Health Concerns Assessment Noted Time PHQ-9 Depression Total Score: 0 08/24/19 23 2:33 PM EST documented as of this encounter Care Teams C Iron Worker Relationship Specialty Start Date End Date Zahraa Roca DO [address] [place] [address] PCP - General Family Medicine 07/25/18 Christian Soria FNP [address] [place] [address] JANICE Merchant [address] Nurse Practitioner Family Medicine 06/24/23 documented as of this encounter
--- OUTSIDE RECORDS SUMMARY | 2025-06-01 16:23 | XMS_ITS | Encounter Summary ---
Author Organization [employer] Address [address] [facility] 7t [place] [address] Care Team Providers Care Tellers Supervisor Name Role Phone AbelinoZahraa Primary Care Provider [phone] Christian Soria Unavailable Unavailable Reason for Visit * Reason Onset Date Comments Random AIRLINE ATTENDANT RV today 05/20/2025 UTOX Pos JYOTI, FENT, Neg BZO 05/20/2025 UTOX Confirmation 05/20/2025 Encounter Details Date Type Department Care Team (Late st Contact Info) Description 05/20/2025 Telephone [facility] MEDICINE [address] [place] [address] eMre Rios RN Random AIRLINE ATTENDANT RV today; UTOX Pos JYOTI, FENT, Neg [...] Pos Bzo, Neg FENT. Pt had random AIRLINE ATTENDANT done 05/20/25 - as he was in the building. He did not have his Clonazepam with him. Have called him and left 3 messages since then for his Clonazepam count, no response. Please advise * Telephone Encounter - Mere Rios RN - 05/20/2025 1:15 PM EDT Pt came in and had random AIRLINE ATTENDANT RV appointment today UTOX Was pos JYOTI, FENT, negative BZO. Reviewed UTOX results with patient. Patent stated he's still using the same marijuana from the street that he was using during his 05/06/25 AIRLINE ATTENDANT 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 Reminded patient of his 05/06/25 UTOX [...] Description 06/03/2025 9:00 AM EST Clinical Support [facility] MEDICINE [address] [place] [address] Mere Rios, RN documented as of this encounter Visit Diagnoses Not on filedocumented in this encounter Additional Health Concerns Assessment Noted Time PHQ-9 Depression Total Score: 16 025 3:09 PM EDT documented as of this encounter Care Teams Tellers Supervisor Relationship Specialty Start Date End Date Zahraa Roca DO [address] [place] [address] PCP - General Family Medicine 07/25/18 Christian Soria FNP [address] [place] [address] Nurse Practitioner Family Medicine 06/24/23 documented as of this encounter
--- OUTSIDE RECORDS SUMMARY | 2025-06-01 16:23 | XMS_ITS | Encounter Summary ---
Author Organization [employer] Address [address] [place] [address] 7t [place] [address] Care Team Providers Care Director Digital Name Role Phone Zahraa Roca DO Primary Care Provider + [phone] Christian Soria Unavailable Unavailable Encounter Details Date Type Department Care Team (Late Contact Info) Description 10/21/2022 Orders Only [facility] CHC MED & PEDS [address] [place], [place] [phone] Zahraa Andino LPN Social History Tobacco Use [...] Support [facility] MEDICINE [address] [place] [address] Mere Rios RN documented as of this encounter Visit Diagnoses Not on filedocumented in this encounter Additional Health Concerns Assessment Noted Time PHQ-9 Depression Total Score: 0 08/24/19 23 2:33 PM EST documented as of this encounter Care Teams Director Digital Relationship Specialty Start Date End Date Zahraa Roca DO [address] [place] [address] PCP - General Family Medicine 07/25/18 Christian Soria FNP [address] [place] [address] Nurse Practitioner Family Medicine 06/24/23 documented as of this encounter
--- OUTSIDE RECORDS SUMMARY | 2025-06-01 16:23 | XMS_ITS | Encounter Summary ---
Author Organization [employer] Address 75 [facility] 7 [place] [address] Care Team Providers Care Door Machine Operator Name Role Phone Zahraa Roca DO Primary Care Provider [phone] Christian Soria Unavailable Unavailable Reason for Visit * Reason Onset Date Comments PT1 10/24/2024 Encounter Details Date Type Department Care Team ([facility] st Contact Info) Description 10/24/2024 Telephone [facility] MEDICINE [address] [place], [place] [phone] Zahraa Roca DO 230 [place], [place] [phone] PT1 Social History Tobacco Use Types Packs/Day [...] facility name: Mayur harrington Facility Address: [address] [facility] Escort needed: Y/N: No Do you have a wheelchair: Y/N: No If yes- Manual or electric: no Visits:3x a month for 1 year 2.)Patient calling requesting PT1 Home Address verified: Y/N: Yes Provider name or facility name: Dr latonya Christine Facility Address: [address] [facility] [address] Escort needed: Y/N: No Visits: 3x a month for 1 year 3.) Patient calling requesting PT1 Home Address verified: Y/N: Yes Provider name or facility name: Everton Lawton MD Facility Address: [address] [facility] [address], [place] [address] Escort needed: Y/N: No Visits: 3 x a month for 1 year 4.) Patient calling requesting PT1 Home Address verified: Y/N: Yes Provider name or facility name: PCP and dental appt Facility Address: [address] [facility] [address] Escort needed: Y/N: No Visits: 4x a month for 1 year documented in this encounter Plan of Treatment Upcoming Encounters Date Type Department Care Team (Late st Contact Info) Description 06/03/2025 9:00 AM EST Clinical Support [facility] MEDICINE [address] [place] [address] Mere Rios, HENRIK documented as of this encounter Visit Diagnoses Not on filedocumented in this encounter Additional Health Concerns Assessment Noted Time PHQ-9 Depression Total Score: 16 025 3:09 PM EDT documented as of this encounter Care Teams Door Machine Operator Relationship Specialty Start Date End Date Zahraa Roca DO [address] [place] [address] PCP - General Family Medicine 07/25/18 Christian Soria FNP [address] [place] [address] Nurse Practitioner Family Medicine 06/24/23 documented as of this encounter
--- OUTSIDE RECORDS SUMMARY | 2025-06-01 16:23 | XMS_ITS | Encounter Summary ---
Author Organization [employer] Address [address] [facility] 7 [place] [address] Care Team Providers Care Pallet Stone Positioner Name Role Phone Zahraa Roca DO Primary Care Provider [phone] Christian Soria Unavailable Unavailable Reason for Visit * Reason Onset Date Comments PT-1 10/01/2024 Encounter Details Date Type Department Care Team (Late st Contact Info) Description 10/01/2024 Telephone [facility] MEDICINE [address] [place], [place] [phone] Zahraa Roca DO [address] [place], [place] [phone] PT-1 (/) Social History Tobacco Use Types [...] EDT Tc from pt requesting for the Slitter Creaser Slotter Operator locations for all his Pt 1 to be changed to [address] [place] [address]. If any questions contact pt at [phone] documented in this encounter Plan of Treatment Upcoming Encounters Date Type Department Care Team (Late st Contact Info) Description 06/03/2025 9:00 AM EST Clinical Support [facility] MEDICINE [address] [place] [address] Mere Rios, HENRIK documented as of this encounter Visit Diagnoses Not on filedocumented in this encounter Additional Health Concerns Assessment Noted Time PHQ-9 Depression Total Score: 0 11/28/19 24 11:23 AM EDT documented as of this encounter Care Teams Pallet Stone Positioner Relationship Specialty Start Date End Date Zahraa Roca DO [address] [place] [address] PCP - General Family Medicine 07/25/18 Christian Soria FNP [address] [place] [address] Nurse Practitioner Family Medicine 06/24/23 documented as of this encounter
--- OUTSIDE RECORDS SUMMARY | 2025-06-01 16:23 | XMS_ITS | Encounter Summary ---
Author Organization [employer] Address 75 [facility] 7t [place] [address] Care Team Providers Care Ornamental Painter Name Role Phone Zahraa Roca DO Primary Care Provider + [phone] Christian Soria Unavailable Unavailable Encounter Details Date Type Department Care Team (Late st Contact Info) Description 05/31/2025 Telephone [facility] MEDICINE [address] [place], [place] [phone] Zahraa Roca DO [address] [place], [place] [phone] Social History Tobacco Use Types Packs/Day Years [...] encounter Miscellaneous Notes * Telephone Encounter - Zahraa Roca DO - 05/31/2025 2:29 PM EST Pt seen in [facility] 2 days ago with rib fracture. Pt also NS to ROVING CAN TENDER RN pill count. Left message for pt to contact [facility] for f/u. documented in this encounter Plan of Treatment Upcoming Encounters Date Type Department Care Team (Late st Contact Info) Description 06/03/2025 9:00 AM EST Clinical Support [facility] MEDICINE [address] [place] [address] Mere Rios RN documented as of this encounter Visit Diagnoses Not on filedocumented in this encounter Additional Health Concerns Assessment Noted Time PHQ-9 Depression Total Score: 16 025 3:09 PM EDT documented as of this encounter Care Teams Ornamental Painter Relationship Specialty Start Date End Date Zahraa Roca DO [address] [place] [address] PCP - General Family Medicine 07/25/18 Christian Soria FNP [address] [place] [address] Nurse Practitioner Family Medicine 06/24/23 documented as of this encounter
--- OUTSIDE RECORDS SUMMARY | 2025-06-01 16:23 | XMS_ITS | Encounter Summary ---
Author Organization [employer] Address 75 [facility] 7 [place] [address] Care Team Providers Care Waffle Machine Operator Name Role Phone Zahraa Roca DO Primary Care Provider [phone] Christian Soria Unavailable Unavailable Reason for Visit * Reason Onset Date Comments PT-1 10/02/2024 Encounter Details Date Type Department Care Team ([facility] st Contact Info) Description 10/02/[address] [facility] MEDICINE [address] [place], [place] [phone] Zahraa Roca DO [address] [place], [place] [phone] PT-1 Social History Tobacco Use Types Packs/Day [...] status of Pt 1 Contact pt at [phone] * Telephone Encounter - Go Vasquez - 10/02/2024 9:06 AM EDT Patient calling requesting PT1 Home Address verified: Y/N: Yes Provider name or facility name: [facility] [address] [address] Escort needed: Y/N: No Do you have a wheelchair: Y/N: No If yes- Manual or electric: Visits: (7 Days x Weekly) documented in this encounter Plan of Treatment Upcoming Encounters Date Type Department Care Team ([facility] st Contact Info) Description 06/03/2025 9:00 AM EST Clinical Support [address] [address] Mere Rios, RN documented as of this encounter Visit Diagnoses Not on filedocumented in this encounter Additional Health Concerns Assessment Noted Time PHQ-9 Depression Total Score: 0 11/28/19 24 11:23 AM EDT documented as of this encounter Care Teams Waffle Machine Operator Relationship Specialty Start Date End Date Zahraa Roca DO [address] [place] [address] PCP - General Family Medicine 07/25/18 Christian Soria FNP [address] [place] [address] Nurse Practitioner Family Medicine 06/24/23 documented as of this encounter
--- OUTSIDE RECORDS SUMMARY | 2025-06-01 16:23 | XMS_ITS | Encounter Summary ---
Author Organization [employer] Address [address] [place] [address] 7 [place] [address] Care Team Providers Care Snaker Driving Horses Name Role Phone Zahraa Roca DO Primary Care Provider [phone] Christian Soria Unavailable Unavailable Reason for Visit * Reason Onset Date Comments Med Refill 12/31/2022 Encounter Details Date Type Department Care Team (Late st Contact Info) Description 12/31/2022 Telephone [facility] MEDICINE 230 [place], [place] [phone] Zahraa Roca DO [address] [place], [place] [phone] Med Refill Social History Tobacco Use Types [...] Description 06/03/2025 9:00 AM EST Clinical Support [facility] MEDICINE [address] [place] [address] Mere Rios, HENRIK documented as of this encounter Visit Diagnoses Not on filedocumented in this encounter Additional Health Concerns Assessment Noted Time PHQ-9 Depression Total Score: 0 08/24/19 23 2:33 PM EST documented as of this encounter Care Teams Snaker Driving Horses Relationship Specialty Start Date End Date Zahraa Roca DO [address] [place] [address] PCP - General Family Medicine 07/25/18 Christian Soria FNP [address] [place] [address] Nurse Practitioner Family Medicine 06/24/23 documented as of this encounter
--- OUTSIDE RECORDS SUMMARY | 2025-06-01 16:23 | XMS_ITS | Encounter Summary ---
Author Organization [employer] Address [address] [place] [address] 7 [place] [address] Care Team Providers Care Supervisor Home Energy Consultant Name Role Phone Zahraa Roca DO Primary Care Provider + [phone] Christian Soria Unavailable Unavailable Encounter Details Date Type Department Care Team (Late st Contact Info) Description 07/06/2022 Orders Only [facility] CHC MED & PEDS [address] [place] [address] Zahraa Andino LPN Social History Tobacco Use [...] Description 06/03/2025 9:00 AM EST Clinical Support [facility] MEDICINE [address] [place] [address] Mere Rios, RN documented as of this encounter Visit Diagnoses Not on filedocumented in this encounter Care Teams Supervisor Home Energy Consultant Relationship Specialty Start Date End Date Zahraa Roca DO [address] [place] [address] PCP - General Family Medicine 07/25/18 Christian Soria FNP [address] [place] [address] Nurse Practitioner Family Medicine 06/24/23 documented as of this encounter
--- OUTSIDE RECORDS SUMMARY | 2025-06-01 16:23 | XMS_ITS | Encounter Summary ---
Author Organization [employer] Address [address] [facility] 7 [place] [address] Care Team Providers Care Visual Coordinator Name Role Phone Zahraa Roca DO Primary Care Provider [phone] Christian Soria Unavailable Unavailable Reason for Visit * Reason Onset Date Comments Appointment Request 08/03/2024 Encounter Details Date Type Department Care Team ([facility] st Contact Info) Description 08/03/2024 Telephone [facility] MEDICINE [address] [place], [place] [phone] Zahraa Roca DO [address] [place], [place] [phone] Appointment Request Social History Tobacco Use Types [...] missed appointment with dermatology. Contact pt at [phone] documented in this encounter Plan of Treatment Upcoming Encounters Date Type Department Care Team (Late st Contact Info) Description 06/03/2025 9:00 AM EST Clinical Support [facility] MEDICINE [address] [place] [address] Mere Rios RN documented as of this encounter Visit Diagnoses Not on filedocumented in this encounter Additional Health Concerns Assessment Noted Time PHQ-9 Depression Total Score: 0 11/28/19 24 11:23 AM EDT documented as of this encounter Care Teams Visual Coordinator Relationship Specialty Start Date End Date Zahraa Roca DO [address] [place] [address] PCP - General Family Medicine 07/25/18 Christian Soria FNP [address] [place] [address] Nurse Practitioner Family Medicine 06/24/23 documented as of this encounter
--- OUTSIDE RECORDS SUMMARY | 2025-06-01 16:23 | XMS_ITS | Encounter Summary ---
Author Organization [employer] Address [address] [place] [address] 7t [place] [address] Care Team Providers Care Fluxer Name Role Phone Zahraa Roca DO Primary Care Provider + [phone] Christian Soria Unavailable Unavailable Encounter Details Date Type Department Care Team (Late st Contact Info) Description 08/12/2022 Orders Only [facility] CHC MED & PEDS [address] [place] [address] Zahraa Andino LPN Social History Tobacco Use [...] [facility] MEDICINE [address] [place] [address] Mere Rios, RN documented as of this encounter Visit Diagnoses Not on filedocumented in this encounter Care Teams Fluxer Relationship Specialty Start Date End Date Zahraa Roca DO [address] [place] [address] PCP - General Family Medicine 07/25/18 Christian Soria FNP [address] [place] [address] Nurse Practitioner Family Medicine 06/24/23 documented as of this encounter
--- OUTSIDE RECORDS SUMMARY | 2025-06-01 16:23 | XMS_ITS | Encounter Summary ---
Author Organization [employer] Address [address] [place] [address] 7t [place] [address] Care Team Providers Care Access Coordinator Name Role Phone Zahraa Roca DO Primary Care Provider + [phone] Christian Soria Unavailable Unavailable Encounter Details Date Type Department Care Team (Late Contact Info) Description 09/20/2022 Orders Only [facility] CHC MED & PEDS [address] [place], [place] [phone] Zahraa Andino LPN Social History Tobacco Use [...] Description 06/03/2025 9:00 AM EST Clinical Support [facility] MEDICINE [address] [place] [address] Mere Rios RN documented as of this encounter Visit Diagnoses Not on filedocumented in this encounter Additional Health Concerns Assessment Noted Time PHQ-9 Depression Total Score: 0 08/24/19 23 2:33 PM EST documented as of this encounter Care Teams Access Coordinator Relationship Specialty Start Date End Date Zahraa Roca DO [address] [place] [address] PCP - General Family Medicine 07/25/18 Christian Soria FNP [address] [place] [address] Nurse Practitioner Family Medicine 06/24/23 documented as of this encounter
--- OUTSIDE RECORDS SUMMARY | 2025-06-01 16:23 | XMS_ITS | Encounter Summary ---
Author Organization [employer] Address [address] [facility] 7t [place] [address] Care Team Providers Care Pump Operator Byproducts Name Role Phone AbelinoZahraa Primary Care Provider [phone] Christian Soria Unavailable Unavailable Encounter Details Date Type Department Care Team (Late st Contact Info) Description 05/29/2025 Orders Only [facility] External Provider, [facility] Social History Tobacco Use Types Packs/Day Years [...] the past 12 months, has t he [employer] gas, oil or water company threatened to [...] Description 06/03/2025 9:00 AM EST Clinical Support [facility] [address] [place] [phone] Mere Rios RN documented as of this encounter Procedures Procedure Name Priority Date/Time Associated Diagnosis Comments XR RIBS 3 VIEWS LEFT W CHEST Routine 05/29/2025 11:52 AM EST documented in this encounter Results * XR Ribs 3 Views Left w/ Chest (05/29/2025 11:52 AM EST) Anatomical Region Laterality Modality Radiographic Nara ging 05/29/2025 11:5 2 AM EST Narrative 05/29/2025 11:58 AM EST [address] [address] XRay Report Signed Patient: Cristobal Enriquez MR#: [id number] 54 : 1970 Acct:[id number] Age/Sex: 55 / M ADM Date: 05/29/25 Loc: HO.ED Attending Dr: Ordering Physician: Lynnette Rosado DO Date of Service: 05/29/25 Procedure(s): XR ribs LT min 3V w CXR1V Accession Number(s): [id number] cc: Lynnette Rosado DO; Zahraa Roca DO [...] 05/29/25 1155 DD/ 1152 TD/TT: 05/29/25 1150 Parts Inspector: Procedure Note Donotuseinterpreter, Image - 05/29/2025 [place] [id number] XRay Report Signed Patient: Cristobal Enriquez JMR#: [id number] 54 : 1970Acct:[id number] Age/Sex: 55 / MADM Date: 05/29/25 Loc: .ED Attending Dr: Ordering Physician: Lynnette Rosado DO Date of Service: 05/29/25 Procedure(s): XR ribs LT min 3V w CXR1V Accession Number(s): [id number] cc: Lynnette Rosado DO; Zahraa Roca DO [...] 05/29/25 1155 DD/ 1152 TD/TT: 05/29/25 1150 Parts Inspector: [facility] External Provider IMG XR PROCEDURES Final Result documented in this encounter Visit Diagnoses Not on filedocumented in this encounter Additional Health Concerns Assessment Noted Time PHQ-9 Depression Total Score: 16 10/16/2 025 3:09 PM EDT documented as of this encounter Care Teams Pump Operator Byproducts Relationship Specialty Start Date End Date Zahraa Roca DO [address] [place] [address] PCP - General Family Medicine 07/25/18 Christian Soria FNP [address] [place] [address] Nurse Practitioner Family Medicine 06/24/23 documented as of this encounter
--- OUTSIDE RECORDS SUMMARY | 2025-06-01 16:23 | XMS_ITS | Encounter Summary ---
Author Organization [employer] Address [address] [facility] 7 [place] [address] Care Team Providers Care Mural Artist Name Role Phone Zahraa Roca DO Primary Care Provider [phone] Christian Soria Unavailable Unavailable Reason for Visit * Reason Onset Date Comments PT-1 07/13/2024 Encounter Details Date Type Department Care Team ([facility] st Contact Info) Description 07/13/2024 Telephone [facility] [address] [place], [place] [phone] Zahraa Roca DO [address] [place], [place] [phone] PT-1 Social History Tobacco Use Types Packs/Day [...] Yes Provider name or facility name: [id number] [facility] Escort needed: Y/N: No Do you have a wheelchair: Y/N: No If yes- Manual or electric: Visits: (3x Monthly) documented in this encounter Plan of Treatment Upcoming Encounters Date Type Department Care Team (Late st Contact Info) Description 06/03/2025 9:00 AM EST Clinical Support [facility] [address] [place] [address] Mere Rios, RN documented as of this encounter Visit Diagnoses Not on filedocumented in this encounter Additional Health Concerns Assessment Noted Time PHQ-9 Depression Total Score: 0 11/28/19 24 11:23 AM EDT documented as of this encounter Care Teams Mural Artist Relationship Specialty Start Date End Date Zahraa Roca DO [address] [place] [phone] PCP - General Family Medicine 07/25/18 Christian Soria FNP [address] [place] [address] Nurse Practitioner Family Medicine 06/24/23 documented as of this encounter
--- OUTSIDE RECORDS SUMMARY | 2025-06-01 16:23 | XMS_ITS | Encounter Summary ---
Author Organization [employer] Address [address] [place] [address] 7 [place] [address] Care Team Providers Care Usability Strategist Name Role Phone Zahraa Roca DO Primary Care Provider [phone] Christian Soria Unavailable Unavailable Encounter Details Date Type Department Care Team ([facility] Contact Info) Description 08/31/2022 Abstract [facility] [address] [place] [phone] Zharaa Roca DO [address] [place] [phone] Social History Tobacco Use Types Packs/Day Years [...] 06/03/2025 9:00 AM EST Clinical Support [facility] [address] [place] [phone] Mere Rios RN documented as of this encounter Visit Diagnoses Not on filedocumented in this encounter Additional Health Concerns Assessment Noted Time PHQ-9 Depression Total Score: 0 08/24/19 23 2:33 PM EST documented as of this encounter Care Teams Usability Strategist Relationship Specialty Start Date End Date Zahraa Roca DO [address] [place] [address], [place] [address] PCP - General Family Medicine 07/25/18 Christian Soria FNP [address] [place] [address] Nurse Practitioner Family Medicine 06/24/23 documented as of this encounter
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
[2025-06-01 17:09] VITALS: PULSE 60; RESP 23; O2SAT 100
[2025-06-01] MEDS: Albuterol Sulfate 2.5 MG, Albuterol/Iprat 2.5/0.5MG 3 ML 3 ML INHALE (17:13)
[2025-06-01 18:01] LABS: MANUAL DIFF FLAG NO
[2025-06-01 18:10] LABS: D Dimer High Sensitivity 363 NG/ML
[2025-06-01 18:15] LABS: Alanine Aminotransferase 17 U/L (0-40); Albumin Level 4.3 g/dL (3.5-5.0); Alkaline Phosphatase 127 U/L (39-117); Anion Gap 14 (12-20); Aspartate Amino Transferase 25 U/L (5-37); Blood Urea Nitrogen 15 mg/dL (9-16); Calcium 9.2 mg/dL (8.4-10.2); Carbon Dioxide 27 mmol/L (22-29); Chloride 103 mmol/L (96-108); Creatinine Clr Calc Pharmacy 124.6; Estimated Glomerular Filt Rate > 60; Lipase 15 U/L (8-78); Potassium 3.5 mmol/L (3.3-5.1); Sodium 140 mmol/L (135-145); Total Protein 7.3 g/dL (6.5-8.0)
[2025-06-01 18:29] LABS: Troponin-I High Sensitivity < 2.7 ng/L (<3.5-35.0)
[2025-06-01 18:39] LABS: Cannabinoid Screen Urine POSITIVE (Not Detect)
[2025-06-01] MEDS: iohexoL 350 MG/ML 100 ML INFUS..BTL IV (19:10)
[2025-06-01 20:09] VITALS: BP 112/60; PULSE 73; RESP 16; TEMP 36.6; O2SAT 97
[2025-06-01 20:15] LABS: Hematocrit 37.4 % (42.0-52.0); Hemoglobin 12.3 g/dl (14.0-18.0); Imm Gran Abs Auto 0.01 X10*3/uL (0.00-0.03); Imm Gran Pct Auto 0.2 % (0.0-0.4); Lymphocytes Absolute Auto 1.0 X10*3/uL (1.2-4.9); Mean Corpuscular HGB Conc 32.9 g/dl (31.0-36.0); Mean Corpuscular Hemoglobin 29.5 pg (27.0-33.0); Mean Corpuscular Volume 89.7 fL (80.0-98.0); NRBC Abs Auto 0.000 X10*3/uL (0.0-0.012); NRBC Pct Auto 0.0 /100WBC (0.0-0.2); Platelet Count 188 X10*3/uL (160-400); Red Blood Count 4.17 X10*6/uL (4.60-5.80); White Blood Count 4.6 X10*3/uL (4.8-10.8)
[2025-06-01 22:02] LABS: Troponin-I High Sensitivity < 2.7 ng/L (<3.5-35.0)
[2025-06-01 23:09] VITALS: BP 109/63; PULSE 69; RESP 16; TEMP 36.8; O2SAT 99
== END 2025-06-01 23:10 | disposition home or self-care (01) ==
PROVIDERS: Emergency Provider Emergency Medicine
DX: J20.9 Acute bronchitis, unspecified (principal); S22.32XD Fracture of one rib, left side, subsequent encounter for fracture with routine healing; X58.XXXD Exposure to other specified factors, subsequent encounter
CPT/HCPCS: 36415; 71045; 71275; 80048; 80076; 80307; 82550; 83605; 83690; 84484; 85025; 85379; 87040; 93005; 94640; 96365; 99285; J0696; Q9967

== ENCOUNTER → 2025-06-01 16:31 | Outpatient (BNV) | payer MEDICARE, MEDICAID, SELFPAY | PROVIDERS: Emergency Provider Emergency Medicine; Visit Provider Internal Medicine Cardiovascular Disease | DX: R00.1 Bradycardia, unspecified (principal) | CPT/HCPCS: 93010 ==

== ENCOUNTER → 2025-06-01 16:40 | Outpatient (BNV) | payer MEDICARE, MEDICAID, SELFPAY | PROVIDERS: Emergency Provider Emergency Medicine; Visit Provider Radiology Diagnostic Radiology | DX: I25.84 Coronary atherosclerosis due to calcified coronary lesion (principal) | CPT/HCPCS: 71275 ==

== ENCOUNTER 2025-06-06 10:21 | Outpatient (REF) | payer MEDICARE, MEDICAID, SELFPAY ==
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
--- OUTSIDE RECORDS SUMMARY | 2025-06-05 09:30 | XMS_ITS | Encounter Summary ---
Author Organization [employer] Address [address] [place] [address] 7 [place] [address] Care Team Providers Care Consumer Science Teacher Name Role Phone Zahraa Roca DO Primary Care Provider [phone] Christian Soria Unavailable Unavailable Reason for Referral * Medications - Closed Specialty Diagnoses / Procedures Referred By Contac t Referred To Contact Diagnoses Closed fracture of one rib of left side, initial encounter Zahraa Roca DO [address] [place] [address] Phone: tel: fax: Referral ID Status Reason Start Date Expiration Date Visits Re quested Visits Authorized [id number] Closed 1 1 Encounter Details Date Type Department Care Team (Late st Contact Info) Description 06/05/2025 9:30 AM EST Office Visit [facility] MEDICINE [address] [place], [place] [phone] Zahraa Roca DO [address] [place] [address] Closed fracture of one rib of left side, initial encounter (Primary Dx); Anxiety Social History Tobacco Use Types Packs/Day [...] Sign Reading Time Taken Comments Blood Pressure 126/80 06/05/2025 9:36 AM EST Pulse 66 06/05/2025 9:36 AM EST Temperature 36.1 C (96.9 F) 06/05/2025 9:36 AM EST Respiratory Rate 21 06/05/2025 9:36 AM EST Oxygen Saturation 99% 06/05/2025 9:36 AM EST Inhaled Oxygen Concentration - - Weight 76.7 kg (169 lb) 06/05/2025 9:36 AM EST Height 177.8 cm (5' 10 ) 06/05/2025 9:36 AM EST Body Mass Index 24.25 06/05/2025 9:36 AM EST documented in this encounter Plan of Treatment Upcoming Encounters Date Type Department Care Team (Late st Contact Info) Description 06/17/2025 8:30 AM EST Clinical Support [facility] [place] [address] Mere Rios, HENRIK 07/01/2025 9:30 AM EST Clinical Support [facility] Reinier Ji, JANICE [address] Mere Rios, HENRIK 07/08/2025 10:30 AM EST Clinical Support [facility] [place] [address] Mere Rios, HENRIK 07/15/2025 8:30 AM EST Clinical Support [facility] [place], JAN[place] [address] Mere Rios, HENRIK 07/15/2025 9:30 AM EST Clinical Support [facility] [place], [place] [address] Mere Rios, HENRIK 07/22/2025 8:30 AM EST Clinical Support [facility] [place] [address] Mere Rios, HENRIK 07/29/2025 8:30 AM EST Clinical Support [facility] [place] [address] Mere Rios, RN documented as of this encounter Visit Diagnoses Diagnosis Closed fracture of one rib of left side, initial encounter- Primary Anxiety Anxiety state, unspecified documented in this encounter Administered Medications Inactive Administered Medications - up to 3 most recent administrations Medication Order MAR Action Action Date Dose Rate Site ketorolac (Toradol) injection 30 mg 30 mg, Intramuscular, Once, On Tue06/05/25 at 1000, For 1 doseIndications:Closed fracture of one rib of left side, initial encounter Given 06/05/2025 10:00 AM EST 30 mg Left Deltoid documented in this encounter Additional Health Concerns Assessment Noted Time PHQ-9 Depression Total Score: 16 10/16/2 025 3:09 PM EDT documented as of this encounter Care Teams Consumer Science Teacher Relationship Specialty Start Date End Date Zahraa Roca DO [facility] [place] [facility] [place] [address] PCP - General Family Medicine 07/25/18 Christian Soria FNP [address] [place] [address] Nurse Practitioner Family Medicine 06/24/23 documented as of this encounter
--- NOTE | ~2025-06-06 | US_ITS ---
EXAMINATION: US LOWER EXTREMITY VENOUS (REFLUX EXAM), BILATERAL CLINICAL INFORMATION: I83.11 - Varicose veins of right lower extremity with inflammation. Post Venaseal procedure left greater saphenous vein COMPARISON: Previous exam July 2024 TECHNIQUE: Color flow triplex imaging and compression Doppler was performed to evaluate both the deep and the superficial systems bilaterally. To evaluate the superficial system, the examination was performed in the upright position. Color-flow Doppler ultrasound and compression ultrasound were utilized. In addition, maneuvers were utilized to demonstrate reflux. FINDINGS: 1. DEEP VENOUS ULTRASOUND OF THE RIGHT LOWER EXTREMITY: Common Femoral Vein: Compressible, normal respiratory variation and augmented flow. Femoral Vein: Compressible, normal color flow and augmentation. Popliteal Vein: Compressible, normal augmentation. Deep Reflux: There is no evidence of reflux in the deep system in either the common femoral vein, superficial femoral or the popliteal vein. There is no evidence of a Russo's cyst. Small right inguinal lymph node. 2. SUPERFICIAL ULTRASOUND WITH DOPPLER OF RIGHT LOWER EXTREMITY: GREAT SAPHENOUS VEIN: Saphenofemoral Junction: 0.8 cm; Reflux: Greater than 2400 ms Proximal Thigh: 0.5 cm; Reflux: 0 ms Mid Thigh: 0.5 cm; Reflux: Greater than 2650 ms Distal Thigh: 0.4 cm; Reflux: Greater than 3180 ms At Knee: 0.4 cm; Reflux: Greater than 3120 ms Proximal Calf: 0.4 cm; Reflux: Greater than 08/25/2007 ms Mid Calf: 0.2 cm; Reflux: 860 ms Distal Calf: 0.2 cm; Reflux: 1008 ms DUPLICATED MEDIAL GREAT SAPHENOUS VEIN: Diameter: None imaged Reflux: NA DUPLICATED LATERAL GREAT SAPHENOUS VEIN: Diameter: None imaged Reflux: NA SMALL SAPHENOUS VEIN: Saphenopopliteal Junction: 0.4 cm; Reflux: 0 ms Proximal: 0.2 cm; Reflux: 0 ms Distal: 0.2 cm; Reflux: 0 ms VEIN OF GIACOMINI: Size: 0.2 cm Reflux: NA PERFORATORS: Location: Mid and proximal calf Size: 0.2 to 0.3 cm Reflux: NA VARICOSITIES: Location: Mid calf Size: 0.3 cm Reflux: 1112 ms 3. DEEP VENOUS ULTRASOUND OF THE LEFT LOWER EXTREMITY: Common Femoral Vein: Compressible, normal respiratory variation and augmented flow. Femoral Vein: Compressible, normal color flow and augmentation. Popliteal Vein: Compressible, normal augmentation. Deep Reflux: There is no evidence of reflux in the deep system in either the common femoral vein, superficial femoral or the popliteal vein. There is no evidence of a Russo's cyst. There is a small left inguinal lymph node. 4. SUPERFICIAL ULTRASOUND WITH DOPPLER OF LEFT LOWER EXTREMITY: GREAT SAPHENOUS VEIN: Saphenofemoral Junction: 1 cm; Reflux: 0 ms Proximal Thigh: 0.5 cm; Reflux: 0 ms. Post venous field changes Mid Thigh: 0.2 cm; Reflux: 0 ms Distal Thigh: 0.3 cm; Reflux: 0 ms post venous field changes At Knee: 0.4 cm; Reflux: Greater than 2884 ms Proximal Calf: 0.1 cm; Reflux: 0 ms Mid Calf: 0.1 cm; Reflux: 0 ms Distal Calf: 0.2 cm; Reflux: 1464 ms DUPLICATED MEDIAL GREAT SAPHENOUS VEIN: Diameter: None imaged Reflux: NA DUPLICATED LATERAL GREAT SAPHENOUS VEIN: Diameter: 0.2 centimeters Reflux: NA SMALL SAPHENOUS VEIN: Saphenopopliteal Junction: 0.5 cm; Reflux: 0 ms Proximal: 0.2 cm; Reflux: 0 ms Distal: 0.2 cm; Reflux: 0 ms VEIN OF GIACOMINI: Size: NA Reflux: NA PERFORATORS: Location: Near the distal lesser saphenous vein, at the knee and mid calf. Size: 0.2, 0.1 and 0.3 cm Reflux: NA VARICOSITIES: Location: Proximal calf Size: 0.3 cm Reflux: Greater than 3016 ms reflux US/US venous insuf bilat IMPRESSION: Right: No evidence of DVT or deep venous reflux. Right greater saphenous vein reflux measuring maximum greater than 3180 ms above the knee. Small perforators and varicosities without reflux. Left: No evidence of DVT or deep venous reflux. Post venous tilt changes in the left greater saphenous vein. Left greater saphenous vein appears patent at the knee with 2.9 second reflux and patent below the knee with 1.5 second reflux at the ankle. Small varicosity in the calf with greater than 3 second reflux. Electronically signed by: Nancie Neil MD 06/06/2025 12:26 PM [facility]
--- OUTSIDE RECORDS SUMMARY | 2025-06-06 12:37 | XMS_ITS | Encounter Summary ---
Author Organization [employer] Address [address] [facility] [address] 7t [place] [address] Care Team Providers Care Fire Coordinator Name Role Phone Abelino Zahraa Primary Care Provider + [phone] Christian Soria Unavailable Unavailable Encounter Details Date Type Department Care Team (Late st Contact Info) Description 04/17/2024 Telephone [facility] ADULT DENTAL [address] [place] [address] Lore Vargas DDS Social History Tobacco Use [...] Description 06/17/2025 8:30 AM EST Clinical Support [facility] MEDICINE [address] [place] [address] Mere Rios, RN 07/01/2025 9:30 AM EST Clinical Support [address] [address] Mere Rios, RN 07/08/2025 10:30 AM EST Clinical Support [facility] MEDICINE [address] [place] [address] Mere Rios, RN 07/15/2025 8:30 AM EST Clinical Support [facility] MEDICINE [address] [place] [address] Mere Rios, RN 07/15/2025 9:30 AM EST Clinical Support [address] [address] Mere Rios, RN 07/22/2025 8:30 AM EST Clinical Support [facility] MEDICINE [address] [place] [address] Mere Rios, RN 07/29/2025 8:30 AM EST Clinical Support [facility] MEDICINE [address] [facility] [place] [address] Mere Rios, RN documented as of this encounter Visit Diagnoses Not on filedocumented in this encounter Additional Health Concerns Assessment Noted Time PHQ-9 Depression Total Score: 0 11/28/19 24 11:23 AM EDT documented as of this encounter Care Teams Fire Coordinator Relationship Specialty Start Date End Date Zahraa Roca DO [facility] [place] [address] PCP - General Family Medicine 07/25/18 Christian [place] [address] Nurse Practitioner Family Medicine 06/24/23 documented as of this encounter
--- OUTSIDE RECORDS SUMMARY | 2025-06-06 12:37 | XMS_ITS | Encounter Summary ---
Author Organization [employer] Address [address] [facility] [address] 7t [place] [address] Care Team Providers Care Admissions Director Name Role Phone AbelinoZahraa Primary Care Provider [phone] Christian Soria Unavailable Unavailable Encounter Details Date Type Department Care Team (Latest Contact Info) Description 06/05/2025 Travel Social History Tobacco Use Types Packs/Day [...] Description 06/17/2025 8:30 AM EST Clinical Support [address] [address] Mere Rios, HENRIK 07/01/2025 9:30 AM EST Clinical Support [address] [address] Mere Rios, HENRIK 07/08/2025 10:30 AM EST Clinical Support [address] [address] Mere Rios, HENRIK 07/15/2025 8:30 AM EST Clinical Support [address] [address] Mere Rios, RN 07/15/2025 9:30 AM EST Clinical Support [address] [address] Mere Rios, RN 07/22/2025 8:30 AM EST Clinical Support [address] [address] Mere Rios, RN 07/29/2025 8:30 AM EST Clinical Support [address] [address] Mere Rios, RN documented as of this encounter Visit Diagnoses Not on filedocumented in this encounter Additional Health Concerns Assessment Noted Time PHQ-9 Depression Total Score: 16 10/16/ 025 3:09 PM EDT documented as of this encounter Care Teams Admissions Director Relationship Specialty Start Date End Date Zahraa Roca DO [address] [place] [address] PCP - General Family Medicine 07/25/18 Christian Soria FNP [address] [place], [place] [address] [address] Nurse Practitioner Family Medicine 06/24/23 documented as of this encounter
--- OUTSIDE RECORDS SUMMARY | 2025-06-06 12:37 | XMS_ITS | Encounter Summary ---
Author Organization [employer] Address 75 [facility] 7 [place] [address] Care Team Providers Care Surgical Garment Assembly Supervisor Name Role Phone Zahraa Roca DO Primary Care Provider [phone] Christian Soria Unavailable Unavailable Reason for Visit * Reason Onset Date Comments PT1 01/03/2024 Encounter Details Date Type Department Care Team ([facility] st Contact Info) Description 01/03/2024 Telephone [facility] MED[facility]INE [address] [place], [place] [phone] Zahraa Roca DO [address] [place], [place] [phone] PT1 Social History Tobacco Use Types Packs/Day [...] or facility name: [facility] clinic Facility Address: [address] [place] [address] Escort needed: Y/N: No Do you have a wheelchair: Y/N: No If yes- Manual or electric: none Visits: 7 days a week documented in this encounter Plan of Treatment Upcoming Encounters Date Type Department Care Team ([facility] Contact Info) Description 06/17/2025 8:30 AM EST Clinical Support [address] [address] Mere Rios, RN 07/01/2025 9:30 AM EST Clinical Support [address] [address] Mere Rios, RN 07/08/2025 10:30 AM EST Clinical Support [address] [address] Mere Rios, RN 07/15/2025 8:30 AM EST Clinical Support [address] [address] Mere Rios, RN 07/15/2025 9:30 AM EST Clinical Support [address] [place] [address] Mere Rios, HENRIK 07/22/2025 8:30 AM EST Clinical Support [facility] [place] [address] Mere Rios, RN 07/29/2025 8:30 AM EST Clinical Support [facility] [place] [address] Mere Rios, RN documented as of this encounter Visit Diagnoses Not on filedocumented in this encounter Additional Health Concerns Assessment Noted Time PHQ-9 Depression Total Score: 0 11/28/19 24 11:23 AM EDT documented as of this encounter Care Teams Surgical Garment Assembly Supervisor Relationship Specialty Start Date End Date Zahraa Roca DO [facility] [place] [address] PCP - General Family Medicine 07/25/18 Christian Soria FNP [address] [place] [address] Nurse Practitioner Family Medicine 06/24/23 documented as of this encounter
--- OUTSIDE RECORDS SUMMARY | 2025-06-06 12:37 | XMS_ITS | Encounter Summary ---
Author Organization [employer] Address 75 [facility] 7 [place] [address] Care Team Providers Care Outbound Sales Consultant Name Role Phone Zahraa Roca DO Primary Care Provider [phone] Christian Soria Unavailable Unavailable Reason for Visit * Reason Onset Date Comments PT-1 03/15/2024 Encounter Details Date Type Department Care Team ([facility] st Contact Info) Description 03/15/2024 Telephone [facility] MEDICINE [address] [place], [place] [phone] Zahraa Roca DO [address] [place], [place] [phone] PT-1 Social History Tobacco Use Types Packs/Day [...] Y/N: Yes Provider name or facility name: [facility] Facility Address: [address] [place] [address] Escort needed: Y/N: No Do you have a wheelchair: Y/N: No If yes- Manual or electric: no Visits: 3 documented in this encounter Plan of Treatment Upcoming Encounters Date Type Department Care Team (Late st Contact Info) Description 06/17/2025 8:30 AM EST Clinical Support [facility] MEDICINE [address] [place] [address] Mere Rios, RN 07/01/2025 9:30 AM EST Clinical Support [facility] MEDICINE [address] [place] [address] Mere Rios, RN 07/08/2025 10:30 AM EST Clinical Support [facility] MEDICINE [address] [place] [address] Mere Rios, RN 07/15/2025 8:30 AM EST Clinical Support [facility] MEDICINE [address] [place] [address] Mere Rios, RN 07/15/2025 9:30 AM EST Clinical Support [address] [address] Mere Rios, HENRIK 07/22/2025 8:30 AM EST Clinical Support [address] [address] Mere Rios, HENRIK 07/29/2025 8:30 AM EST Clinical Support [address] [address] Mere Rios, RN documented as of this encounter Visit Diagnoses Not on filedocumented in this encounter Additional Health Concerns Assessment Noted Time PHQ-9 Depression Total Score: 0 11/28/19 24 11:23 AM EDT documented as of this encounter Care Teams Outbound Sales Consultant Relationship Specialty Start Date End Date Zahraa Roca DO [address] [place] [address] PCP - General Family Medicine 07/25/18 Christian Soria FNP [address] [place] [address] Nurse Practitioner Family Medicine 06/24/23 documented as of this encounter
--- OUTSIDE RECORDS SUMMARY | 2025-06-06 12:37 | XMS_ITS | Encounter Summary ---
Author Organization [employer] Address 75 [facility] 7 [place] [address] Care Team Providers Care Outreach Counselor Name Role Phone Zahraa Roca DO Primary Care Provider [phone] Christian Soria Unavailable Unavailable Reason for Visit * Reason Onset Date Comments Referral 04/08/2025 Encounter Details Date Type Department Care Team ([facility] st Contact Info) Description 04/08/2025 Telephone [facility] MEDICINE [address] [place], [place] [phone] Zahraa Roca DO [address] [place], [place] [phone] Referral Social History Tobacco Use Types Packs/Day [...] the pt at home. Contact pt at [phone] Pt is requesting to speak with a nurse regarding referral. documented in this encounter Plan of Treatment Upcoming Encounters Date Type Department Care Team (Late st Contact Info) Description 06/17/2025 8:30 AM EST Clinical Support [facility] MEDICINE [address] [place] [address] Mere Rios, HENRIK 07/01/2025 9:30 AM EST Clinical Support [facility] MEDICINE [address] [place] [address] Mere Rios, HENRIK 07/08/2025 10:30 AM EST Clinical Support [facility] MEDICINE [address] [place] [address] Mere Rios, RN 07/15/2025 8:30 AM EST Clinical Support [address] [address] Mere Rios, RN 07/15/2025 9:30 AM EST Clinical Support [address] [address] Mere Rios, HENRIK 07/22/2025 8:30 AM EST Clinical Support [facility] [place] [address] Mere Rios, HENRIK 07/29/2025 8:30 AM EST Clinical Support [facility] [place] [address] Mere Rios, RN documented as of this encounter Visit Diagnoses Not on filedocumented in this encounter Additional Health Concerns Assessment Noted Time PHQ-9 Depression Total Score: 16 025 3:09 PM EDT documented as of this encounter Care Teams Outreach Counselor Relationship Specialty Start Date End Date Zahraa Roca DO [facility] [place] [address] PCP - General Family Medicine 07/25/18 Christian Soria FNP [address] [place] [address] Nurse Practitioner Family Medicine 06/24/23 documented as of this encounter
--- OUTSIDE RECORDS SUMMARY | 2025-06-06 12:37 | XMS_ITS | Encounter Summary ---
Author Organization [employer] Address 75 [facility] 7 [place] [address] Care Team Providers Care Resourcing Consultant Name Role Phone Zahraa Roca DO Primary Care Provider [phone] Christian Soria Unavailable Unavailable Reason for Visit * Reason Onset Date Comments PT-1 04/17/2024 Encounter Details Date Type Department Care Team ([facility] st Contact Info) Description 04/17/2024 Telephone [facility] [address] [place], [place] [phone] Zahraa Roca DO 230 [place], [place] [phone] PT-1 Social History Tobacco Use Types Packs/Day [...] Y/N: Yes Provider name or facility name: [facility] Facility Address: [address] [place] [address] Escort needed: Y/N: No Do you have a wheelchair: Y/N: No If yes- Manual or electric: N/A Visits: Twice a month documented in this encounter Plan of Treatment Upcoming Encounters Date Type Department Care Team (Late st Contact Info) Description 06/17/2025 8:30 AM EST Clinical Support [facility] [address] [place] [address] Mere Rios, RN 07/01/2025 9:30 AM EST Clinical Support [facility] [address] [place] [address] Mere Rios, RN 07/08/2025 10:30 AM EST Clinical Support [address] [address] Mere Rios, RN 07/15/2025 8:30 AM EST Clinical Support [facility] [place] [address] Mere Rios, HENRIK 07/15/2025 9:30 AM EST Clinical Support [facility] [place] [address] Mere Rios, RN 07/22/2025 8:30 AM EST Clinical Support [facility] [place] [address] Mere Rios, HENRIK 07/29/2025 8:30 AM EST Clinical Support [facility] [place] [address] Mere Rios, RN documented as of this encounter Visit Diagnoses Not on filedocumented in this encounter Additional Health Concerns Assessment Noted Time PHQ-9 Depression Total Score: 0 11/28/19 24 11:23 AM EDT documented as of this encounter Care Teams Resourcing Consultant Relationship Specialty Start Date End Date [place] [address] PCP - General Family Medicine 07/25/18 [place] [address] Nurse Practitioner Family Medicine 06/24/23 documented as of this encounter
--- OUTSIDE RECORDS SUMMARY | 2025-06-06 12:37 | XMS_ITS | Encounter Summary ---
Author Organization [employer] Address [address] [facility] [address] 7t [place] [address] Care Team Providers Care Manager Clinical Name Role Phone AbelinoZahraa Primary Care Provider Christian Soria Unavailable Unavailable Reason for Visit * Reason Onset Date Comments NCNS AD COMPOSITOR RV 06/03/2025 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 06/03/2025 Pt cancelled AD COMPOSITOR RV same day 06/05/2025 Encounter Details Date Type Department Care Team (Late st Contact Info) Description 06/03/2025 Telephone [facility] 230 [place] [address] Mere Rios RN NCNS AD COMPOSITOR RV; 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; Pt cancelled AD COMPOSITOR RV same day Social History Tobacco Use Types Packs/Day Years [...] Telephone Encounter - Mere Rios RN - 06/05/2025 9:11 AM EST Pt cancelled today's AD COMPOSITOR RV appointment same day. Return TC to patient, no answer. Unable to leave message, phone just keeps ringing. * Telephone Encounter - Pascual Valenzuela - 06/05/2025 8:05 AM EST Tc from pt requesting a call back stating he is unable to make apt that was scheduled today , requesting to speak with AD COMPOSITOR nurse Contact pt at [phone] * Telephone Encounter - Mere Rios RN - 06/03/2025 10:29 AM EST Pt was NCNS for AD COMPOSITOR RV today TC to patient, pt stated he just woke up. 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 Asked why patient did not call back for his pill count on 05/20/25, pt stated he has to many appointments. Pt indicated that his provider wont give him Clonazepam anymore anyway's. Reviewed with patient that his provider will not stop prescribing his Clonazepam over night, that if she was to take him off of it, she would wean him down slowly so he doesn't go through withdrawal. Encouraged patient to keep his AD COMPOSITOR appointment, rescheduled for 06/05/15 @ 9:30am. documented in this encounter Plan of Treatment Upcoming Encounters Date Type Department Care Team (Late st Contact Info) Description 06/17/2025 8:30 AM EST Clinical Support [address] [address] Mere Rios, HENRIK 07/01/2025 9:30 AM EST Clinical Support [address] [address] Mere Rios, HENRIK 07/08/2025 10:30 AM EST Clinical Support [address] [address] Mere Rios, HENRIK 07/15/2025 8:30 AM EST Clinical Support [address] [address] Mere Rios, HENRIK 07/15/2025 9:30 AM EST Clinical Support [address] [address] Mere Rios, HENRIK 07/22/2025 8:30 AM EST Clinical Support [address] [address] Mere Rios, HENRIK 07/29/2025 8:30 AM EST Clinical Support [address] [address] Mere Rios, RN documented as of this encounter Visit Diagnoses Not on filedocumented in this encounter Additional Health Concerns Assessment Noted Time PHQ-9 Depression Total Score: 16 10/16/ 025 3:09 PM EDT documented as of this encounter Care Teams Manager Clinical Relationship Specialty Start Date End Date Zahraa Roca DO [address] [place] [address] PCP - General Family Medicine 07/25/18 Christian Soria FNP [address] [place] [address] Nurse Practitioner Family Medicine 06/24/23 documented as of this encounter
--- OUTSIDE RECORDS SUMMARY | 2025-06-06 12:37 | XMS_ITS | Encounter Summary ---
Author Organization [employer] Address 75 [facility] 7 [place] [address] Care Team Providers Care Bindery Worker Name Role Phone Zahraa Roca DO Primary Care Provider [phone] Christian Soria Unavailable Unavailable Reason for Visit * Reason Onset Date Comments Nurse Triage 05/03/2025 Encounter Details Date Type Department Care Team ([facility] st Contact Info) Description 05/03/2025 Telephone [facility] 230 [place], [place] [phone] Zahraa Roca DO 230 [place], [place] [phone] Nurse Triage Social History Tobacco Use Types [...] this time as 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 Pt states rescheduled to Tuesday but [...] caller accepted this outcome. Contact pt at [phone] documented in this encounter Plan of Treatment Upcoming Encounters Date Type Department Care Team (Late st Contact Info) Description 06/17/2025 8:30 AM EST Clinical Support [facility] [address] [place] [address], [place] [address] Mere Rios, HENRIK 07/01/2025 9:30 AM EST Clinical Support [address] [place] [address] Mere Rios, RN 07/08/2025 10:30 AM EST Clinical Support [facility] [address] [place] [address], [place] [address] Mere Rios, RN 07/15/2025 8:30 AM EST Clinical Support [facility] [address] [place] [address], [place] [address] Mree Rios, RN 07/15/2025 9:30 AM EST Clinical Support [address] [place] [address] Mere Rios, RN 07/22/2025 8:30 AM EST Clinical Support [address] [place] [address] Mere Rios, RN 07/29/2025 8:30 AM EST Clinical Support [facility] [address] [facility] [place] [address] Mere Rios, RN documented as of this encounter Visit Diagnoses Not on filedocumented in this encounter Additional Health Concerns Assessment Noted Time PHQ-9 Depression Total Score: 16 10/16/ 025 3:09 PM EDT documented as of this encounter Care Teams Bindery Worker Relationship Specialty Start Date End Date Zahraa Roca DO [address] [facility] [place] [address] PCP - General Family Medicine 07/25/18 Christian Soria FNP [address] [place] [address] Nurse Practitioner Family Medicine 06/24/23 documented as of this encounter
--- OUTSIDE RECORDS SUMMARY | 2025-06-06 12:38 | XMS_ITS | Encounter Summary ---
Author Organization [employer] Address [address] [facility] [address] 7t [place] [address] Care Team Providers Care Note Taker Name Role Phone Abelino Zahraa Primary Care Provider + [phone] Christian Soria Unavailable Unavailable Encounter Details Date Type Department Care Team (Late st Contact Info) Description 11/03/2023 Orders Only [facility] MED[facility]INE 230 [place] [address] Provider, MD Hiral Social History Tobacco Use [...] Description 06/17/2025 8:30 AM EST Clinical Support [address] [address] Mere Rios, HENRIK 07/01/2025 9:30 AM EST Clinical Support [address] [address] Mere Rios, HENRIK 07/08/2025 10:30 AM EST Clinical Support [address] [address] Mere Rios, HENRIK 07/15/2025 8:30 AM EST Clinical Support [address] [address] Mere Rios, RN 07/15/2025 9:30 AM EST Clinical Support [address] [address] Mere Rios, RN 07/22/2025 8:30 AM EST Clinical Support [address] [address] Mere Rios, RN 07/29/2025 8:30 AM EST Clinical Support [address] [address] Mere Rios, RN documented as of this [...] documented as of this encounter Care Teams Note Taker Relationship Specialty Start Date End Date Zahraa Roca DO 230 [place] [address] PCP - General Family Medicine 07/25/18 Christian Soria FNP 230 [place] [address] Nurse Practitioner Family Medicine 06/24/23 documented as of this encounter
--- OUTSIDE RECORDS SUMMARY | 2025-06-06 12:38 | XMS_ITS | Encounter Summary ---
Author Organization [employer] Address [address] [place] [address] 7t [place] [address] Care Team Providers Care Parts Sales Advisor Name Role Phone YudiZahraa barahona Primary Care Provider [phone] Christian Soria Unavailable Unavailable Reason for Visit * Reason Comments Med Refill Encounter Details Date Type Department Care Team (Late st Contact Info) Description 12/31/2022 Refill [facility] [address] [place] [address] Christian Soria FNP Anxiety Social History Tobacco [...] Description 06/17/2025 8:30 AM EST Clinical Support [facility] [address] [place] [address] Mere Rios, HENRIK 07/01/2025 9:30 AM EST Clinical Support [facility] [address] [place] [address] Mere Rios, HENRIK 07/08/2025 10:30 AM EST Clinical Support [facility] [address] [place] [address] Mere Rios, HENRIK 07/15/2025 8:30 AM EST Clinical Support [facility] [address] Mere Rios, HENRIK 07/15/2025 9:30 AM EST Clinical Support [facility] [place] [address] Mere Rios, HENRIK 07/22/2025 8:30 AM EST Clinical Support [facility] [place] [address] Mere Rios, HENRIK 07/29/2025 8:30 AM EST Clinical Support [facility] [place] [address] Mere Rios, RN documented as of this encounter Visit Diagnoses Diagnosis Anxiety Anxiety state, unspecified documented in this encounter Additional Health Concerns Assessment Noted Time PHQ-9 Depression Total Score: 0 08/24/19 23 2:33 PM EST documented as of this encounter Care Teams Parts Sales Advisor Relationship Specialty Start Date End Date Zahraa Roca DO [facility] [place] [address] PCP - General Family Medicine 07/25/18 [place] [address] Nurse Practitioner Family Medicine 06/24/23 documented as of this encounter
--- OUTSIDE RECORDS SUMMARY | 2025-06-06 12:38 | XMS_ITS | Encounter Summary ---
Author Organization [employer] Address 75 [facility] 7t [place] [address] Care Team Providers Care First Officer And Flight Instructor Name Role Phone Zahraa Roca DO Primary Care Provider [phone] Christian Soria Unavailable Unavailable Reason for Visit * Reason Onset Date Comments PT-1 07/13/2024 Encounter Details Date Type Department Care Team ([facility] st Contact Info) Description 07/13/2024 Telephone [facility] 230 [place], [place] [phone] Zahraa Roca DO 230 [place], [place] [phone] PT-1 Social History Tobacco Use Types Packs/Day [...] Yes Provider name or facility name: [address] [place] [address] Escort needed: Y/N: No Do you have a wheelchair: Y/N: No If yes- Manual or electric: Visits: (3x Monthly) documented in this encounter Plan of Treatment Upcoming Encounters Date Type Department Care Team (Late st Contact Info) Description 06/17/2025 8:30 AM EST Clinical Support [address] [address] Mere Rios, HENRIK 07/01/2025 9:30 AM EST Clinical Support [address] [address] Mere Rios, HENRIK 07/08/2025 10:30 AM EST Clinical Support [address] [address] Mere Rios, HENRIK 07/15/2025 8:30 AM EST Clinical Support [address] [address] Mere Rios, HENRIK 07/15/2025 9:30 AM EST Clinical Support [address] [address] Mere Rios, RN 07/22/2025 8:30 AM EST Clinical Support [address] [address] Mere Rios, HENRIK 07/29/2025 8:30 AM EST Clinical Support [address] [address] Mere Rios, RN documented as of this encounter Visit Diagnoses Not on filedocumented in this encounter Additional Health Concerns Assessment Noted Time PHQ-9 Depression Total Score: 0 11/28/19 24 11:23 AM EDT documented as of this encounter Care Teams First Officer And Flight Instructor Relationship Specialty Start Date End Date Zahraa oRca DO [address] [place] [address] PCP - General Family Medicine 07/25/18 Christian Soria FNP 230 [place] [address] Nurse Practitioner Family Medicine 06/24/23 documented as of this encounter
--- OUTSIDE RECORDS SUMMARY | 2025-06-06 12:38 | XMS_ITS | Encounter Summary ---
Author Organization [employer] Address 75 [facility] 7t [place] [address] Care Team Providers Care Groutman Name Role Phone Abelino Zahraa Primary Care Provider Christian Soria Unavailable Unavailable Encounter Details Date Type Department Care Team (Late st Contact Info) Description 10/21/2022 Orders Only [facility] [address] [place] [address] Zahraa Andino LPN Social History Tobacco Use [...] Description 06/17/2025 8:30 AM EST Clinical Support [address] [address] Mere Rios, HENRIK 07/01/2025 9:30 AM EST Clinical Support [address] [address] Mere Rios, RN 07/08/2025 10:30 AM EST Clinical Support [address] [address] Mere Rios, RN 07/15/2025 8:30 AM EST Clinical Support [address] [address] Mere Rios, RN 07/15/2025 9:30 AM EST Clinical Support [facility] [place] [address] Mere Rios, RN 07/22/2025 8:30 AM EST Clinical Support [facility] [place] [address] Mere Rios, RN 07/29/2025 8:30 AM EST Clinical Support [facility] [place] [address] Mere Rios, RN documented as of this encounter Visit Diagnoses Not on filedocumented in this encounter Additional Health Concerns Assessment Noted Time PHQ-9 Depression Total Score: 0 08/24/19 23 2:33 PM EST documented as of this encounter Care Teams Groutman Relationship Specialty Start Date End Date Zahraa Roca DO [facility] [place] [address] PCP - General Family Medicine 07/25/18 Christian Soria [place] [address] Nurse Practitioner Family Medicine 06/24/23 documented as of this encounter
--- OUTSIDE RECORDS SUMMARY | 2025-06-06 12:38 | XMS_ITS | Encounter Summary ---
Author Organization [employer] Address [address] [facility] [address] 7t [place] [address] Care Team Providers Care Carpenter Cradle And Dolly Name Role Phone Zahraa Roca DO Primary Care Provider + [phone] Christian Soria Unavailable Unavailable Encounter Details Date Type Department Care Team (Late st Contact Info) Description 10/10/2024 Orders Only [facility]INE 230 [place], [place] [phone] Zahraa Roca DO 230 [place] [address] Social History Tobacco Use Types Packs/Day Years [...] Description 06/17/2025 8:30 AM EST Clinical Support [address] [address] Mere Rios, RN 07/01/2025 9:30 AM EST Clinical Support [address] [place] [address] Mere Rios, RN 07/08/2025 10:30 AM EST Clinical Support [address] [place] [address] Mere Rios, RN 07/15/2025 8:30 AM EST Clinical Support [address] [address] Mere Rios, RN 07/15/2025 9:30 AM EST Clinical Support [address] [place] [address] Mere Rios, RN 07/22/2025 8:30 AM EST Clinical Support [address] [place] [address] Mere Rios, RN 07/29/2025 8:30 AM EST Clinical Support [address] [place] [address] Mere Rios, RN documented as of this encounter Visit Diagnoses Not on filedocumented in this encounter Additional Health Concerns Assessment Noted Time PHQ-9 Depression Total Score: 0 11/28/19 24 11:23 AM EDT documented as of this encounter Care Teams Carpenter Cradle And Dolly Relationship Specialty Start Date End Date Zahraa Roca DO 230 [place] [address] PCP - General Family Medicine 07/25/18 Christian Soria FNP 230 [place] [address] Nurse Practitioner Family Medicine 06/24/23 documented as of this encounter
--- OUTSIDE RECORDS SUMMARY | 2025-06-06 12:38 | XMS_ITS | Encounter Summary ---
Author Organization [employer] Address 75 [facility] 7 [place] [address] Care Team Providers Care Employment Case Manager Name Role Phone Zahraa Roca DO Primary Care Provider [phone] Christian Soria Unavailable Unavailable Reason for Visit * Reason Onset Date Comments Appointment Request 06/19/2024 Encounter Details Date Type Department Care Team ([facility] st Contact Info) Description 06/19/2024 Telephone [facility] MEDICINE [address] [place], [place] [phone] Zahraa Roca DO 230 [place], [place] [phone] Appointment Request Social History Tobacco Use Types [...] Description 06/17/2025 8:30 AM EST Clinical Support [facility] MEDICINE [address] [place] [address], [place] [address] Mere Rios, HENRIK 07/01/2025 9:30 AM EST Clinical Support [facility] MEDICINE [address] [place] [address], [place] [address] Mere Rios, RN 07/08/2025 10:30 AM EST Clinical Support [facility] MEDICINE [address] [place] [address], [place] [address] Mere Rios, RN 07/15/2025 8:30 AM EST Clinical Support [address] [place] [address] Mere Rios, RN 07/15/2025 9:30 AM EST Clinical Support [address] [place] [address] Mere Rios, HENRIK 07/22/2025 8:30 AM EST Clinical Support [facility] [place] [address] Mere Rios, RN 07/29/2025 8:30 AM EST Clinical Support [facility] [place] [address] Mere Rios, RN documented as of this encounter Visit Diagnoses Not on filedocumented in this encounter Additional Health Concerns Assessment Noted Time PHQ-9 Depression Total Score: 0 11/28/19 24 11:23 AM EDT documented as of this encounter Care Teams Employment Case Manager Relationship Specialty Start Date End Date [place] [address] PCP - General Family Medicine 07/25/18 Christian [place] [address] Nurse Practitioner Family Medicine 06/24/23 documented as of this encounter
--- OUTSIDE RECORDS SUMMARY | 2025-06-06 12:38 | XMS_ITS | Encounter Summary ---
Author Organization [employer] Address 75 [facility] 7t [place] [address] Care Team Providers Care Preparation Plant Repairer Name Role Phone AbelinoZahraa Primary Care Provider [phone] Christian Soria Unavailable Unavailable Encounter Details Date Type Department Care Team (Late st Contact Info) Description 08/12/2022 Orders Only [facility] [address] [place], [place] [phone] Zahraa Andino LPN Social History Tobacco Use [...] Description 06/17/2025 8:30 AM EST Clinical Support [facility] MEDICINE [address] [place] [address] Mere Rios, HENRIK 07/01/2025 9:30 AM EST Clinical Support [address] [address] Mere Rios, HENRIK 07/08/2025 10:30 AM EST Clinical Support [address] [address] Mere Rios, HENRIK 07/15/2025 8:30 AM EST Clinical Support [address] [address] Mere Rios, HENRIK 07/15/2025 9:30 AM EST Clinical Support [address] [address] Mere Rios, HENRIK 07/22/2025 8:30 AM EST Clinical Support [address] [address] Mere Rios, HENRIK 07/29/2025 8:30 AM EST Clinical Support [address] [address] Mere Rios, RN documented as of this encounter Visit Diagnoses Not on filedocumented in this encounter Care Teams Preparation Plant Repairer Relationship Specialty Start Date End Date [place] [address] PCP - General Family Medicine 07/25/18 Christian Soria FNP [address] [place] [address] Nurse Practitioner Family Medicine 06/24/23 documented as of this encounter
--- OUTSIDE RECORDS SUMMARY | 2025-06-06 12:38 | XMS_ITS | Encounter Summary ---
Author Organization [email or web address] Address 75 [facility] 7t [place] [address] Care Team Providers Care Manager Recruiting Name Role Phone AbelinoZahraa Primary Care Provider [phone] Christian Soria Unavailable Unavailable Encounter Details Date Type Department Care Team (Late st Contact Info) Description 07/06/2022 Orders Only [facility]S [address] [place], [place] [phone] Zahraa Andino LPN Social History Tobacco Use [...] 8:30 AM EST Clinical Support [facility] MEDICINE [address] [place] [address] Mere Rios, HENRIK 07/01/2025 9:30 AM EST Clinical Support [address] [address] Mere Rios, HENRIK 07/08/2025 10:30 AM EST Clinical Support [address] [address] Mree Rios, HENRIK 07/15/2025 8:30 AM EST Clinical Support [address] [address] Mere Rios, HENRIK 07/15/2025 9:30 AM EST Clinical Support [address] [address] Mere Rios, HENRIK 07/22/2025 8:30 AM EST Clinical Support [address] [address] Mere Rios, HENRIK 07/29/2025 8:30 AM EST Clinical Support [address] [address] Mere Rios, RN documented as of this encounter Visit Diagnoses Not on filedocumented in this encounter Care Teams Manager Recruiting Relationship Specialty Start Date End Date [place] [address] PCP - General Family Medicine 07/25/18 Christian Soria FNP [address] [place] [address] Nurse Practitioner Family Medicine 06/24/23 documented as of this encounter
--- OUTSIDE RECORDS SUMMARY | 2025-06-06 12:38 | XMS_ITS | Encounter Summary ---
Author Organization [employer] Address [address] [place] [address] 7t [place] [address] Care Team Providers Care Credit Or Loans Officer Name Role Phone YudiZahraa barahona Primary Care Provider + [phone] Christian Soria Unavailable Unavailable Reason for Visit * Reason Comments Med Refill Encounter Details Date Type Department Care Team (Late st Contact Info) Description 12/19/2022 Refill [facility] MEDICINE [address] [place] [phone] Christian Soria FNP Anxiety Social History Tobacco [...] Description 06/17/2025 8:30 AM EST Clinical Support [facility] MEDICINE [address] [place] [phone] Mere Rios RN 07/01/2025 9:30 AM EST Clinical Support [facility] MEDICINE [address] [place] [address] Mere Rios, HENRIK 07/08/2025 10:30 AM EST Clinical Support [facility] [place] [address] Mere Rios, HENRIK 07/15/2025 8:30 AM EST Clinical Support [facility] [place] [address] Mere Rios, HENRIK 07/15/2025 9:30 AM EST Clinical Support [facility] [place] [address] Mere Rios, HENRIK 07/22/2025 8:30 AM EST Clinical Support [facility] [place] [address] Mere Rios, HENRIK 07/29/2025 8:30 AM EST Clinical Support [facility] [place] [address] Mere Rios, RN documented as of this encounter Visit Diagnoses Diagnosis Anxiety Anxiety state, unspecified documented in this encounter Additional Health Concerns Assessment Noted Time PHQ-9 Depression Total Score: 0 08/24/19 23 2:33 PM EST documented as of this encounter Care Teams Credit Or Loans Officer Relationship Specialty Start Date End Date [place] [address] PCP - General Family Medicine 07/25/18 Christian Soria FNP [address] [place] [address] Nurse Practitioner Family Medicine 06/24/23 documented as of this encounter
--- OUTSIDE RECORDS SUMMARY | 2025-06-06 12:38 | XMS_ITS | Encounter Summary ---
Author Organization [employer] Address [address] 7t [place] [address] Care Team Providers Care Assembler Dc Field Ring Name Role Phone Zahraa Roca DO Primary Care Provider [phone] Christian Soria Unavailable Unavailable Reason for Visit * Reason Onset Date Comments Appt question 08/09/2024 Encounter Details Date Type Department Care Team ([facility] st Contact Info) Description 08/09/2024 Telephone [facility] MEDICINE [address] [place], [place] [phone] Zahraa Roca DO [address] [place], [place] [phone] Appt question Social History Tobacco Use Types [...] aug appt its for that. Any questions [phone] documented in this encounter Plan of Treatment Upcoming Encounters Date Type Department Care Team (Late st Contact Info) Description 06/17/2025 8:30 AM EST Clinical Support [facility] MEDICINE [address] [place] [address], [place] [address] Mere Rios, HENRIK 07/01/2025 9:30 AM EST Clinical Support [facility] MEDICINE [address] [place] [address], [place] [address] Mere Rios, HENRIK 07/08/2025 10:30 AM EST Clinical Support [facility] MEDICINE [address] [place] [address], [place] [address] Mere Rios, HENRIK 07/15/2025 8:30 AM EST Clinical Support [address] [place] [address] Mere Rios RN 07/15/2025 9:30 AM EST Clinical Support [address] [address] Mere Rios, RN 07/22/2025 8:30 AM EST Clinical Support [address] [address] Mere Rios, RN 07/29/2025 8:30 AM EST Clinical Support [address] [address] Mere Rios, RN documented as of this encounter Visit Diagnoses Not on filedocumented in this encounter Additional Health Concerns Assessment Noted Time PHQ-9 Depression Total Score: 0 11/28/19 24 11:23 AM EDT documented as of this encounter Care Teams Assembler Dc Field Ring Relationship Specialty Start Date End Date Zahraa Roca DO [address] [place] [address] PCP - General Family Medicine 07/25/18 Christian Soria FNP [address] [place] [address] Nurse Practitioner Family Medicine 06/24/23 documented as of this encounter
--- OUTSIDE RECORDS SUMMARY | 2025-06-06 12:38 | XMS_ITS | Encounter Summary ---
Author Organization [employer] Address [address] [facility] 7 [place] [address] Care Team Providers Care Brush Maker Name Role Phone Zahraa Roca DO Primary Care Provider [phone] Christian Soria Unavailable Unavailable Reason for Visit * Reason Onset Date Comments PT1 10/24/2024 Encounter Details Date Type Department Care Team ([facility] st Contact Info) Description 10/24/2024 Telephone [facility] MEDICINE [address] [place], [place] [phone] Zahraa Roca DO [address] [place], [place] [phone] PT1 Social History Tobacco Use Types Packs/Day [...] name: Dr latonya Christine Facility Address: [address] [facility] [address] Escort needed: Y/N: No Visits: 3x a month for 1 year 3.) Patient calling requesting PT1 Home Address verified: Y/N: Yes Provider name or facility name: Evertno Lawton MD Facility Address: [address], [place] [address] Escort needed: Y/N: No Visits: 3 x a month for 1 year 4.) Patient calling requesting PT1 Home Address verified: Y/N: Yes Provider name or facility name: PCP and dental appt Facility Address: [address] [facility] [address] Escort needed: Y/N: No Visits: 4x a month for 1 year documented in this encounter Plan of Treatment Upcoming Encounters Date Type Department Care Team (Late st Contact Info) Description 06/17/2025 8:30 AM EST Clinical Support [facility] [place] [address] Mere Rios, HENRIK 07/01/2025 9:30 AM EST Clinical Support [facility] [place] [address] Mere Rios, HENRIK 07/08/2025 10:30 AM EST Clinical Support [facility] [place] [address] Mere Rois, HENRIK 07/15/2025 8:30 AM EST Clinical Support [facility] [place] [address] Mere Rios, HENRIK 07/15/2025 9:30 AM EST Clinical Support [facility] [place] [address] Mere Rios, HENRIK 07/22/2025 8:30 AM EST Clinical Support [facility] [place] [address] Mere Rios, RN 07/29/2025 8:30 AM EST Clinical Support [facility] [place] [address] Mere Rios, RN documented as of this encounter Visit Diagnoses Not on filedocumented in this encounter Additional Health Concerns Assessment Noted Time PHQ-9 Depression Total Score: 16 10/16/ 025 3:09 PM EDT documented as of this encounter Care Teams Brush Maker Relationship Specialty Start Date End Date [place] [address] PCP - General Family Medicine 07/25/18 Christian Soria FNP [facility] [place] [address] Nurse Practitioner Family Medicine 06/24/23 documented as of this encounter
--- OUTSIDE RECORDS SUMMARY | 2025-06-06 12:38 | XMS_ITS | Encounter Summary ---
Author Organization [employer] Address [address] [facility] 7 [place] [address] Care Team Providers Care Flight Operations Inspector Name Role Phone Zahraa Roca DO Primary Care Provider [phone] Christian Soria Unavailable Unavailable Reason for Visit * Reason Onset Date Comments Appointment Request 08/03/2024 Encounter Details Date Type Department Care Team ([facility] st Contact Info) Description 08/03/2024 Telephone [facility] MEDICINE [address] [place], [place] [phone] Zahraa Roca DO [address] [place], [place] [phone] Appointment Request Social History Tobacco Use Types [...] missed appointment with dermatology. Contact pt at [phone] documented in this encounter Plan of Treatment Upcoming Encounters Date Type Department Care Team (Late st Contact Info) Description 06/17/2025 8:30 AM EST Clinical Support [address] [address] Mere Rios, HENRIK 07/01/2025 9:30 AM EST Clinical Support [address] [address] Mere Rios, RN 07/08/2025 10:30 AM EST Clinical Support [address] [address] Mere Rios, RN 07/15/2025 8:30 AM EST Clinical Support [address] [address] Mere Rios, RN 07/15/2025 9:30 AM EST Clinical Support [address] [address] Mere Rios, RN 07/22/2025 8:30 AM EST Clinical Support [address] [address] Mere Rios, RN 07/29/2025 8:30 AM EST Clinical Support [address] [address] Mere Rios, RN documented as of this encounter Visit Diagnoses Not on filedocumented in this encounter Additional Health Concerns Assessment Noted Time PHQ-9 Depression Total Score: 0 11/28/19 24 11:23 AM EDT documented as of this encounter Care Teams Flight Operations Inspector Relationship Specialty Start Date End Date Zahraa Roca DO [address] [place] [address] PCP - General Family Medicine 07/25/18 Christian Soria FNP [address] [place] [address] Nurse Practitioner Family Medicine 06/24/23 documented as of this encounter
--- OUTSIDE RECORDS SUMMARY | 2025-06-06 12:38 | XMS_ITS | Encounter Summary ---
Author Organization [employer] Address [address] [facility] 7 [place] [address] Care Team Providers Care Financial Services Officer Name Role Phone Zahraa Roca DO Primary Care Provider [phone] Christian Soria Unavailable Unavailable Reason for Visit * Reason Onset Date Comments PT-1 10/01/2024 Encounter Details Date Type Department Care Team (Late st Contact Info) Description 10/01/2024 Telephone [facility] MEDICINE [address] [place], [place] [phone] Zahraa Roca DO [address] [place], [place] [phone] PT-1 (/) Social History Tobacco Use Types [...] EDT Tc from pt requesting for the Senior Court Office Assistant locations for all his Pt 1 to be changed to [address] [place] [address]. If any questions contact pt at [phone] documented in this encounter Plan of Treatment Upcoming Encounters Date Type Department Care Team (Late st Contact Info) Description 06/17/2025 8:30 AM EST Clinical Support [facility] MEDICINE [address] [place] [address], [place] [address] Mere Rios, HENRIK 07/01/2025 9:30 AM EST Clinical Support [address] [address] Mere Rios, RN 07/08/2025 10:30 AM EST Clinical Support [address] [address] Mere Rios, HENRIK 07/15/2025 8:30 AM EST Clinical Support [address] [address] Mere Rios, RN 07/15/2025 9:30 AM EST Clinical Support [address] [address] Mere Rios, HENRIK 07/22/2025 8:30 AM EST Clinical Support [address] [address] Mere Rios, RN 07/29/2025 8:30 AM EST Clinical Support [address] [address] Mere Rios, RN documented as of this encounter Visit Diagnoses Not on filedocumented in this encounter Additional Health Concerns Assessment Noted Time PHQ-9 Depression Total Score: 0 11/28/19 24 11:23 AM EDT documented as of this encounter Care Teams Financial Services Officer Relationship Specialty Start Date End Date Zahraa Roca DO [address] [place] [address] PCP - General Family Medicine 07/25/18 Christian Soria FNP [address] [place] [address] Nurse Practitioner Family Medicine 06/24/23 documented as of this encounter
--- OUTSIDE RECORDS SUMMARY | 2025-06-06 12:38 | XMS_ITS | Encounter Summary ---
Author Organization [employer] Address [address] [facility] 7t [place] [address] Care Team Providers Care Mechanical Assembly Technician Name Role Phone Zahraa Roca DO Primary Care Provider [phone] Christian Soria Unavailable Unavailable Encounter Details Date Type Department Care Team (Late st Contact Info) Description 08/31/[address] [address] Zahraa Roca DO [address] [place] [address] Social History Tobacco Use Types Packs/Day Years [...] Description 06/17/2025 8:30 AM EST Clinical Support [address] [address] Mere Rios, HENRIK 07/01/2025 9:30 AM EST Clinical Support [address] [address] Mere Rios, HENRIK 07/08/2025 10:30 AM EST Clinical Support [address] [address] Mere Rios, RN 07/15/2025 8:30 AM EST Clinical Support [address] [address] Mere Rios, HENRIK 07/15/2025 9:30 AM EST Clinical Support [address] [address] Mere Rios, HENRIK 07/22/2025 8:30 AM EST Clinical Support [address] [address] Mere Rios, HENRIK 07/29/2025 8:30 AM EST Clinical Support [address] [address] Mere Rios, RN documented as of this encounter Visit Diagnoses Not on filedocumented in this encounter Additional Health Concerns Assessment Noted Time PHQ-9 Depression Total Score: 0 08/24/19 23 2:33 PM EST documented as of this encounter Care Teams Mechanical Assembly Technician Relationship Specialty Start Date End Date Zahraa Roca DO [address] [place] [address] PCP - General Family Medicine 07/25/18 Christian Soria FNP [address] [place] [address] Nurse Practitioner Family Medicine 06/24/23 documented as of this encounter
--- OUTSIDE RECORDS SUMMARY | 2025-06-06 12:38 | XMS_ITS | Clinical Summary ---
Author Organization [employer] Address [address] [facility] [address] [place] [address] Care Team Providers Care Tea Tree Farmer Name Role Phone AbelinoZahraa Primary Care Provider [phone] Christian Soria Unavailable Unavailable Allergies No known [...] Take 1 tablet (1 mg) by mouth 2 times daily. 28 tablet 5 12:26 PM EST 06/05/20 025 Active hydrOXYzine pamoate (Vistaril) 25 MG capsuleIndica tions:Anxiety Take 1 capsule (25 mg) by mouth every 6 (six) hours if needed for anxiety. 30 capsule 1 5 12:26 PM EST 06/05/20 026 Active lidocaine (Lidoderm) 5 % patchIndicati ons:Closed fracture of one rib of left side, initial encounter Apply 1 patch topically if needed each day for mild pain. Remove & discard patch within 12 hours or as directed by MD. 30 patch 1 06/05/20 25 Active clonazePAM (KlonoPIN) 1 MG tabletIndicat [...] 13, 2025. 56 tablet 05/13/20 25 025 Discontinued(Re order (will not trigger notification to Pharmacy)) Hospital, Clinic, or Other Facility Administered Medication Ordered Dose Route Frequency Start Date End Date Status ketorolac (Toradol) injection 30 mgIndications:Closed fracture of one rib of left side, initial encounter 30 mg IM Once 06/05/2025 06/05/2025 E nded Active Problems Problem Noted Date Diagnosed Date [...] any issues or concerns, he should contact [facility]. All his questions were answered. [...] Encounters Date Type Department Care Team Description 06/05/2025 9:30 AM EST Office Visit [address] [address] Zahraa Roca DO Closed fracture of one rib of left side, initial encounter (Primary Dx); Anxiety 06/05/2025 9:30 AM EST Clinical Support [address] [address] Mere Rios, RN Long-term current use of benzodiazepine (Primary Dx) 06/05/2025 Travel 06/03/[address] [address] Mere Rios, HENRIK [facility] [employer] CONSULTANT RV; 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; Pt cancelled [employer] CONSULTANT RV same day 05/31/[address] [address] Zahraa Roca DO 05/29/2025 Orders Only [facility] External Provider, [facility] 05/22/[address] [address] Zahraa Roca DO Med Refill 05/20/2025 11:00 AM EDT Clinical Support [address] [address] Mere Rios, RN Long-term current use of benzodiazepine (Primary Dx) 05/20/2025 Telephone [facility] MEDICINE [address] [place] [phone] Mere Rios, HENRIK Clonazepam count 05/20/2025 Telephone [facility] MEDICINE [address] [place] [phone] Mere Rios, HENRIK Random [employer] CONSULTANT RV today; UTOX Pos JYOTI, FENT, Neg BZO; UTOX Confirmation 05/20/2025 Travel 05/20/[address] [address] Zahraa Roca DO Appointment Request 05/14/2025 Outside Procedure [facility] OPTOMETRY [address] [place] [phone] Garo Malloyn, OD Presbyopia (Primary Dx) 05/09/2025 Refill [facility] MEDICINE [address] [place] [phone] Zahraa Roca DO Anxiety 05/09/[address] [address] Zahraa Roca DO Anxiety 05/06/2025 1:00 PM EDT Office Visit [facility] OPTOMETRY [address] [place] [phone] GamaAniyah canada, OD Hyperopia of both eyes (Primary Dx) 05/06/2025 9:30 AM EDT Clinical Support [facility] MEDICINE [address] [place] [address] Mere Rios, RN Long-term current use of benzodiazepine (Primary Dx) 05/06/2025 Telephone [facility] MEDICINE [address] [place] [phone] Mere Rios, RN SIDDHARTHA scoring; UTOX Pos JYOTI 05/06/2025 Travel 05/03/2025 Telephone [facility] MEDICINE [address] [place] [phone] Zahraa Roca DO Nurse Triage 05/03/2025 Refill [facility] MEDICINE [address] [place] [address] Zahraa Roca DO Anxiety 04/29/[address] [address] Mere Rios RN [facility] [employer] CONSULTANT RV today 04/18/[address] [address] Zahraa Roca, Anxiety 04/09/[address] [address] Zahraa Roca DO Appointment Request 04/08/[address] [address] Zahraa Roca DO Referral 03/20/[address] [address] Zahraa Roca, Refrerral questions 03/20/[address] [address] Zahraa Roca DO Anxiety 03/18/2025 3:30 PM EDT Office Visit [facility] OPTOMETRY [address] [place] [address] Leela Stauffer, OD Vitreous floaters of right eye (Primary Dx); Anatomical narrow angle of both eyes; Presbyopia 03/18/2025 Travel 03/13/2025 10:00 AM EDT Office Visit [address] [address] Zahraa Roca DO Anxiety (Primary Dx); Chronic [...] lower extremity; Paresthesia of skin 03/13/2025 Telephone [facility] OPTOMETRY [address] [place] [phone] Leela Stauffer, OD 03/13/[address] [address] Mere Rios, HENRIK Per PCP cancel [employer]400 CONSULTANT this month 03/13/2025 Travel 03/12/2025 Telephone [facility] MEDICINE [address] [place] [address] Zahraa Roca, Chart Prep 03/06/2025 Patient Outreach [facility] MEDICINE [address] [place] [address] Zahraa Roca, Pre-visit Planning (SDOH screening completed on 10/08/24 ) from Last 3 Months Immunizations Immunization Administration [...] Mass Index 24.25 06/05/2025 9:36 AM EST Plan of Treatment Upcoming Encounters Date Type Department Care Team (Late st Contact Info) Description 06/17/2025 8:30 AM EST Clinical Support [address] [place] [address] Mere Rios, HENRIK 07/01/2025 9:30 AM EST Clinical Support [address] [place] [address] Mere Rios, HENRIK 07/08/2025 10:30 AM EST Clinical Support [address] [place] [address] Mere Rios, HENRIK 07/15/2025 8:30 AM EST Clinical Support [address] [address] Mere Rios, HENRKI 07/15/2025 9:30 AM EST Clinical Support [facility] [address] [place] [address] Mere Rios RN 07/22/2025 8:30 AM EST Clinical Support [facility] [address] [facility] [place] [address] Mere Rios, HENRIK 07/29/2025 8:30 AM EST Clinical Support [facility] [place] [address] Mere Rios, RN Health Maintenance Due Date Last Done Comments CT Colonography 1968 Dental Prophylaxis 1968 FIT DNA/Cologuard 1968 Sigmoidoscopy 1970 Derm Melanoma Skin Check 1968 RSV Patients and Patients Aged 60 years or older (1 - Risk 50-74 years 1-dose series) 2018 FIT 07/13/2023 07/13/2022 FOBT 07/13/2023 07/13/2022 Dental Oral Exam 09/20/2024 03/19/2024 Dental X-Ray: Bitewings 03/20/2025 03/19/2024, 10/10 COVID-19 Vaccine ( season) 2025 Influenza Vaccine (#1) 2025 Depression Monitoring 04/18/2025 10/16/2024, 025 SDOH Screening 10/08/2025 10/08/2024 Alcohol/Substance Use Screening 10/16/2025 10/16/2024 Disability Screening 10/16/2025 10/16/2024 Colonoscopy 03/16/2026 03/16/2023 Colorectal Cancer Screening 03/16/2026 Tobacco Screening 06/05/2026 06/05/2025 Dental X-Ray: Full Mouth 03/20/2027 03/19/2024 Lipid Panel 03/13/2030 03/13/2025, 04/0 07/2023, 10/09/2020 DTaP/Tdap/Td Vaccines (3 - Td or Tdap) 06/06/2034 06/06/2024, 05/14/2014, 02/01/2000 Hepatitis B Vaccines Completed 10/09/2014, 04/22/2014, 02/11/2014, [...] Procedure Name Priority Date/Time Associated Diagnosis Comments VASC US LOWER EXTREMITY VENOUS INSUFFICIENCY BILATERAL Routine 06/06/2025 11:00 AM EST POCT MARIO-14 URINE DRUG SCREEN Routine 06/05/2025 9:47 AM EST Long-term current use of benzodiazepine XR RIBS 3 VIEWS LEFT W CHEST [...] Recently Relevant to Health Maintenance Results * VASC US Lower Extremity Venous Insufficiency Bilateral (06/06/2025 11:00 AM EST) 06/06/2025 11:0 0 AM EST Narrative [facility] IMAGING - 06/06/2025 12:28 PM EST [address] [address] Ultrasound Report Signed Patient: Cristobal Enriquez MR#: [id number] 54 : 1970 Acct:[id number] Age/Sex: 55 / M ADM Date: 06/06/25 Loc: . Attending Dr: Everton Lawton MD Ordering Physician: Everton Lawton MD Date of Service: 06/06/25 Procedure(s): US venous insuf bilat Accession Number(s): [id number] cc: Zahraa Roca DO; Everton Lawton MD Reason for Exam: I83.11 - Varicose veins of right lower extremity with inflammation EXAMINATION: US LOWER EXTREMITY VENOUS (REFLUX EXAM), BILATERAL CLINICAL INFORMATION: I83.11 - Varicose veins of right lower extremity with inflammation. Post Venaseal procedure left greater saphenous vein COMPARISON: Previous exam July 2024 TECHNIQUE: Color flow triplex imaging and compression [...] is no evidence of a Russo's cyst. Small right inguinal lymph node. 2. SUPERFICIAL ULTRASOUND WITH DOPPLER OF RIGHT LOWER EXTREMITY: GREAT SAPHENOUS VEIN: Saphenofemoral Junction: 0.8 cm; Reflux: Greater than 2400 ms Proximal Thigh: 0.5 cm; Reflux: 0 ms Mid Thigh: 0.5 cm; Reflux: Greater than 2650 ms Distal Thigh: 0.4 cm; Reflux: Greater than 3180 ms At Knee: 0.4 cm; Reflux: Greater than 3120 ms Proximal Calf: 0.4 cm; Reflux: Greater than 08/25/2007 ms Mid Calf: 0.2 cm; Reflux: 860 ms Distal Calf: 0.2 cm; Reflux: 1008 ms DUPLICATED MEDIAL GREAT SAPHENOUS VEIN: Diameter: None imaged Reflux: NA DUPLICATED LATERAL GREAT SAPHENOUS VEIN: Diameter: None imaged Reflux: NA SMALL SAPHENOUS VEIN: Saphenopopliteal Junction: 0.4 cm; Reflux: 0 ms Proximal: 0.2 cm; Reflux: 0 ms Distal: 0.2 cm; Reflux: 0 ms VEIN OF GIACOMINI: Size: 0.2 cm Reflux: NA PERFORATORS: Location: Mid and proximal calf Size: 0.2 to 0.3 cm Reflux: NA VARICOSITIES: Location: Mid calf Size: 0.3 cm Reflux: 1112 ms 3. DEEP VENOUS ULTRASOUND OF THE LEFT [...] is no evidence of a Russo's cyst. There is a small left inguinal lymph node. 4. SUPERFICIAL ULTRASOUND WITH DOPPLER OF LEFT LOWER EXTREMITY: GREAT SAPHENOUS VEIN: Saphenofemoral Junction: 1 cm; Reflux: 0 ms Proximal Thigh: 0.5 cm; Reflux: 0 ms. Post venous field changes Mid Thigh: 0.2 cm; Reflux: 0 ms Distal Thigh: 0.3 cm; Reflux: 0 ms post venous field changes At Knee: 0.4 cm; Reflux: Greater than 2884 ms Proximal Calf: 0.1 cm; Reflux: 0 ms Mid Calf: 0.1 cm; Reflux: 0 ms Distal Calf: 0.2 cm; Reflux: 1464 ms DUPLICATED MEDIAL GREAT SAPHENOUS VEIN: Diameter: None imaged Reflux: NA DUPLICATED LATERAL GREAT SAPHENOUS VEIN: Diameter: 0.2 centimeters Reflux: NA SMALL SAPHENOUS VEIN: Saphenopopliteal Junction: 0.5 cm; Reflux: 0 ms Proximal: 0.2 cm; Reflux: 0 ms Distal: 0.2 cm; Reflux: 0 ms VEIN OF GIACOMINI: Size: NA Reflux: NA PERFORATORS: Location: Near the distal lesser saphenous vein, at the knee and mid calf. Size: 0.2, 0.1 and 0.3 cm Reflux: NA VARICOSITIES: Location: Proximal calf Size: 0.3 cm Reflux: Greater than 3016 ms reflux US/US venous insuf bilat IMPRESSION: Right: No evidence of DVT or deep venous reflux. Right greater saphenous vein reflux measuring maximum greater than 3180 ms above the knee. Small perforators and varicosities without reflux. Left: No evidence of DVT or deep venous reflux. Post venous tilt changes in the left greater saphenous vein. Left greater saphenous vein appears patent at the knee with 2.9 second reflux and patent below the knee with 1.5 second reflux at the ankle. Small varicosity in the calf with greater than 3 second reflux. Electronically signed by: Nancie Neil MD 06/06/2025 12:26 PM EST Dictated By: Nancie Neil MD Signed By: <Electronically signed by Nancie Neil MD in OV> 06/06/25 1226 DD/ 1100 TD/TT: 06/06/25 1135 Project Manager Interior Design: BERNABE Procedure Note Donotuseinterpreter, Image - 06/06/2025 [place] [address] Ultrasound Report Signed Patient: Cristobal Enriquez JMR#: [id number] 54 : 1970Acct:[id number] Age/Sex: 55 / MADM Date: 06/06/25 Loc: HO. Attending Dr: Everton Lawton MD Ordering Physician: Everton Lawton MD Date of Service: 06/06/25 Procedure(s): US venous insuf bilat Accession Number(s): [id number] cc: Zahraa Roca DO; Everton Lawton MD Reason for Exam: I83.11 - Varicose veins of right lower extremity withinflammation EXAMINATION: US LOWER EXTREMITY VENOUS (REFLUX EXAM), BILATERAL CLINICAL INFORMATION: I83.11 - Varicose veins of right lower extremity with inflammation. Post Venaseal procedure left greater saphenous vein COMPARISON: Previous exam July 2024 TECHNIQUE: Color flow triplex imaging and compression [...] is no evidence of a Russo's cyst. Small right inguinal lymph node. 2. SUPERFICIAL ULTRASOUND WITH DOPPLER OF RIGHT LOWER EXTREMITY: GREAT SAPHENOUS VEIN: Saphenofemoral Junction: 0.8 cm; Reflux: Greater than 2400 ms Proximal Thigh: 0.5 cm; Reflux: 0 ms Mid Thigh: 0.5 cm; Reflux: Greater than 2650 ms Distal Thigh: 0.4 cm; Reflux: Greater than 3180 ms At Knee: 0.4 cm; Reflux: Greater than 3120 ms Proximal Calf: 0.4 cm; Reflux: Greater than 08/25/2007 ms Mid Calf: 0.2 cm; Reflux: 860 ms Distal Calf: 0.2 cm; Reflux: 1008 ms DUPLICATED MEDIAL GREAT SAPHENOUS VEIN: Diameter: None imaged Reflux: NA DUPLICATED LATERAL GREAT SAPHENOUS VEIN: Diameter: None imaged Reflux: NA SMALL SAPHENOUS VEIN: Saphenopopliteal Junction: 0.4 cm; Reflux: 0 ms Proximal: 0.2 cm; Reflux: 0 ms Distal: 0.2 cm; Reflux: 0 ms VEIN OF GIACOMINI: Size: 0.2 cm Reflux: NA PERFORATORS: Location: Mid and proximal calf Size: 0.2 to 0.3 cm Reflux: NA VARICOSITIES: Location: Mid calf Size: 0.3 cm Reflux: 1112 ms 3. DEEP VENOUS ULTRASOUND OF THE LEFT [...] is no evidence of a Russo's cyst. There is a small left inguinal lymph node. 4. SUPERFICIAL ULTRASOUND WITH DOPPLER OF LEFT LOWER EXTREMITY: GREAT SAPHENOUS VEIN: Saphenofemoral Junction: 1 cm; Reflux: 0 ms Proximal Thigh: 0.5 cm; Reflux: 0 ms. Post venous field changes Mid Thigh: 0.2 cm; Reflux: 0 ms Distal Thigh: 0.3 cm; Reflux: 0 ms post venous field changes At Knee: 0.4 cm; Reflux: Greater than 2884 ms Proximal Calf: 0.1 cm; Reflux: 0 ms Mid Calf: 0.1 cm; Reflux: 0 ms Distal Calf: 0.2 cm; Reflux: 1464 ms DUPLICATED MEDIAL GREAT SAPHENOUS VEIN: Diameter: None imaged Reflux: NA DUPLICATED LATERAL GREAT SAPHENOUS VEIN: Diameter: 0.2 centimeters Reflux: NA SMALL SAPHENOUS VEIN: Saphenopopliteal Junction: 0.5 cm; Reflux: 0 ms Proximal: 0.2 cm; Reflux: 0 ms Distal: 0.2 cm; Reflux: 0 ms VEIN OF GIACOMINI: Size: NA Reflux: NA PERFORATORS: Location: Near the distal lesser saphenous vein, at the knee and mid calf. Size: 0.2, 0.1 and 0.3 cm Reflux: NA VARICOSITIES: Location: Proximal calf Size: 0.3 cm Reflux: Greater than 3016 ms reflux US/US venous insuf bilat IMPRESSION: Right: No evidence of DVT or deep venous reflux. Right greater saphenous vein reflux measuring maximum greater than 3180 ms above the knee. Small perforators and varicosities without reflux. Left: No evidence of DVT or deep venous reflux. Post venous tilt changes in the left greater saphenous vein. Left greater saphenous vein appears patent at the knee with 2.9 second reflux and patent below the knee with 1.5 second reflux at the ankle. Small varicosity in the calf with greater than 3 second reflux. Electronically signed by: Nancie Neil MD 06/06/2025 12:26 PM [facility] [place] Dictated By: Nancie Neil MD Signed By: <Electronically signed by Nancie Neil MD in OV> 06/06/25 1226 DD/ 1100 TD/TT: 06/06/25 1135 Project Manager Interior Design: BERNABE [facility] External Provider CV VASC ULAR PROCEDURES Final Result [facility] IMAGING [address] [place] [phone] * (ABNORMAL) POCT MARIO-14 Urine Drug Screen (06/05/2025 9:47 AM EST) Only the most recent of3 resultswithin the [...] procedure / Unknown 06/05/2025 9:47 AM EST Narrative Mere Rios, RN - 06/05/2025 9:47 AM EST UTOX cup Lot#[id number] Exp. 04/30/26 Internal Pass Control Zahraa Roca DO POINT OF CARE TEST ENTER/JOANNA T ORDERABLES Final Result * XR Ribs 3 Views Left w/ Chest (05/29/2025 11:52 AM EST) Anatomical Region Laterality Modality Radiographic Nara ging 05/29/2025 11:5 2 AM EST Narrative 05/29/2025 11:58 AM EST [address] [address] XRay Report Signed Patient: Cristobal Enriquez MR#: [id number] 54 : 1970 Acct:[id number] Age/Sex: 55 / M ADM Date: 05/29/25 Loc: HO.ED Attending Dr: Ordering Physician: Lynnette Rosado DO Date of Service: 05/29/25 Procedure(s): XR ribs LT min 3V w CXR1V Accession Number(s): [id number] cc: Lynnette Rosado DO; Zahraa Roca DO [...] 05/29/25 1155 DD/ 1152 TD/TT: 05/29/25 1150 Project Manager Interior Design: Procedure Note Donotuseinterpreter, Image - 05/29/[address] [address] XRay Report Signed Patient: Cristobal Enriquez JMR#: [id number] 54 : 1970Acct:[id number] Age/Sex: 55 / MADM Date: 05/29/25 Loc: .ED Attending Dr: Ordering Physician: Lynnette Rosado DO Date of Service: 05/29/25 Procedure(s): XR ribs LT min 3V w CXR1V Accession Number(s): [id number] cc: Lynnette Rosado DO; Zahraa Roca DO [...] 05/29/25 1155 DD/ 1152 TD/TT: 05/29/25 1150 Project Manager Interior Design: [facility] External Provider IMG XR PROCEDURES Final Result * Drug Monitoring, Benzodiazepines, Quantitative, Urine (05/20/2025 12:30 PM EDT) Nordiazepam, GCMS Urine NEGATIVE [facility] Comment:CUTOFF 50 NG/ML Oxazepam, GCMS Urine NEGATIVE [facility] Comment:CUTOFF 50 NG/ML Lorazepam GCMS Urine NEGATIVE [facility] Comment:CUTOFF 50 NG/ML Alprazolam, GCMS Urine NEGATIVE [facility] Comment:CUTOFF 25 NG/ML Alphahydroxytriazolam, GCMS Ur NEGATIVE [facility] Comment:CUTOFF 50 NG/ML Temazepam, GCMS Urine NEGATIVE [facility] Comment:CUTOFF 50 NG/ML Alphahydroxymidazolam, GCMS Ur NEGATIVE [facility] Comment:CUTOFF 50 NG/ML Aminoclonazepam, GCMS Urine 140 [facility] Comment:CUTOFF 25 NG/ML Flurazepam Metabolite,GCMS Ur NEGATIVE [facility] Comment:CUTOFF 50 NG/ML Benzodiazepines Comments SEE NOTE [facility] Comment:This drug testing is for medical treatment only. Analysiswas performed as non-forensic testing and these resultsshould be used only by healthcare providers to renderdiagnosis or treatment, or to monitor progress of medicalconditions.Benzodiazepines Notes:Aminoclonazepam detected is consistent with the use of thedrug ClonazepamLDT Notes:Confirmation tests were developed and their analyticalperformance characteristics have been determined by [employer]. It has not been cleared or approved by the FDA.This assay has been validated pursuant to the CLIAregulations and is used for clinical purposes.Healthcare Providers needing Interpretation assistance,please contact us at [phone] ( ) M-F,8am to 10pm ESTPERFORMING SITE:FORMERLY [facility] [employer] [facility], [address] [place] [phone] Straw Hat Presser: SOCRATES MATHIAS MD, CLIA:[id number] Urine (Urine, Random) 05/20/2025 12:30 PM EDT 05/20/2025 4:29 PM EDT us Zahraa Roca DO LAB URINE ORDERABLES Final R esult [facility] [address] [place] [phone] * Drug Monitoring, Fentanyl, with Confirmation, Urine (05/20/2025 12:30 PM EDT) Fentanyl, Ur NEGATIVE [facility] Comment:CUTOFF 0.5 NG/ML Norfentanyl, Ur NEGATIVE [facility] Comment:CUTOFF 0.5 NG/ML Fentanyl Note SEE NOTE [facility] Comment: NOTES AND COMMENTSThis drug testing is for medical treatment only. Analysiswas performed as non-forensic testing and these resultsshould be used only by healthcare providers to renderdiagnosis or treatment, or to monitor progress of medicalconditions. LDT Notes: Confirmation tests were developed andtheir analytical performance characteristics have beendetermined by [employer]. It has not been cleared orapproved by the FDA. This assay has been validated pursuantto the CLIA regulations and is used for clinical purposes.Healthcare Providers needing Interpretation assistance,please contact us at [phone] ( ) M-F,8am to 10pm ESTThis drug testing is for medical treatment only. Analysiswas performed as non-forensic testing and these resultsshould be used only by healthcare providers to renderdiagnosis or treatment, or to monitor progress of medicalconditions.PERFORMING SITE:[facility] [place] [phone] LaboratoryDirector: FER ARREAGA MD, CLIA: [id number] Urine (Urine, Random) 05/20/2025 12:30 PM EDT 05/20/2025 4:29 PM EDT Zahraa Roca LAB URINE ORDERABLES Final R esult Performing Organization Address [facility]/ZIP Co de Phone Number [facility] [address] [place] [phone] * Drug Monitoring, Cocaine Metabolite, Quantitative, Urine (05/20/2025 12:30 PM EDT) Only the most recent of2 resultswithin the time period is included. Benzoylecgonine [id number] [facility] Comment:CUTOFF 100 NG/ML Cocaine Comments SEE NOTE [facility] Comment:This drug testing is for medical treatment only. Analysiswas performed as non-forensic testing and these resultsshould be used only by healthcare providers torender diagnosis or treatment, or to monitor progress ofmedical conditions.Cocaine Notes:Benzoylecgonine detected is consistent with the use of thedrug Cocaine.LDT Notes:Confirmation tests were developed and their analyticalperformance characteristics have been determined by [employer]. It has not been cleared or approved by the FDA.This assay has been validated pursuant to the CLIAregulations and is used for clinical purposes.Healthcare Providers needing Interpretation assistance,please contact us at [phone] ( ) M-F,8am to 10pm EST Urine (Urine, Random) 05/20/2025 12:30 PM EDT 05/20/2025 4:29 PM EDT Zahraa Londonjesus LAB URINE ORDERABLES Final R esult Performing Organization Address [facility]/ZIP Co de Phone Number [facility] [address] [place] [phone] * (ABNORMAL) Drug Monitoring, Methadone Metabolite, Screen, Urine (05/20/2025 12:30 PM EDT) Methadone Screen, Urine Positive( A) Not Detect ng/mL [facility] Comment:Methadone cut-off is 300 ng/mL.Positive results are unconfirmed and should not be used fornon-medical purposes. Urine (Urine, Random) 05/20/2025 12:30 PM EDT 05/20/2025 4:29 PM EDT us Zahraa Roca DO LAB URINE ORDERABLES Final R esult [facility] [address] [place] [phone] * Vitamin D, 25-Hydroxy, Total, Immunoassay (03/13/2025 10:55 AM EDT) Vitamin D 25-OH Total 37.0 >30 ng/mL [facility] Comment: Health Based Reference Values*< 20 ng/mL [id number] ng/mL Insufficient> 30 ng/mL Sufficient*Sissy JONAS. N [...] EDT 03/13/2025 12:29 PM EDT Zahraa Abelino LAB BLOOD ORDERABLES Final R esult Performing Organization Address City/[facility]/ZIP Co de Phone Number [facility] [address] [place] [phone] [phone] * Hepatitis C Viral RNA, Quantitative, Real-Time PCR (03/13/2025 10:55 AM EDT) [facility] Hepatitis C Viral Load <15 NOT DETECTED NOT DETECTED IU/mL [facility] HCV Log PCR <1.18 NOT DETECTED NOT DETECTED Log IU/mL [facility] Comment:For additional infor mation, please refer tohttp://education.Hortau/faq/AOT31e6(This link is being provided for informational/educational purposes only.)THIS TEST WAS PERFORMED AT:[facility] [place] [phone] MATHIAS MD Blood Venous blood specimen / Unknown 03/13/2025 10:55 AM EDT 03/13/2025 12:24 PM EDT us Zahraa Abelino [facility] LAB BLOOD ORDERABLES Final R esult Performing Organization Address [facility] Co de Phone Number [facility] [address] [place] [phone] * (ABNORMAL) CBC auto differential (03/13/2025 10:55 AM EDT) [facility] White Blood Count 5.2 4.8 - 10.8 X10*3/uL [facility] Red Blood Count 4.06(L) 4.60 - 5.80 X10*6/uL [facility] Hemoglobin 12.0(L) 14.0 - 18.0 g/dl [facility] Hematocrit 36.5(L) 42.0 - 52.0 % [facility] Mean Corpuscular Volume 89.9 80.0 - 98.0 fL [facility] Mean Corpuscular Hemoglobin 29.6 27.0 - 33.0 pg [facility] Mean Corpuscular HGB Conc 32.9 31.0 - 36.0 g/dl [facility] Red Cell Distribution Width 12.0 11.0 - 16.0 % [facility] Platelet Count 151(L) 160 - 400 X10*3/uL [facility] Mean Platelet Volume 11.1 9.4 - 12.4 fL [facility] Neutrophils Percent Auto 68.9 45 - 73 % [facility] Imm Gran Pct Auto 0.4 0.0 - 0.4 % [facility] Lymphocytes Percent Auto 20.9 20 - 40 % [facility] Monocytes Percent Auto 6.7 2 - 11 % [facility] Eosinophils Percent Auto 2.5 0 - 4 % [facility] Basophils Percent Auto 0.6 0 - 2 % [facility] NRBC Pct Auto 0.0 0.0 - 0.2 /100WBC [facility] Neutrophils Absolute Auto 3.6 2.0 - 8.3 x10*3/uL [facility] Imm Gran Abs Auto 0.02 0.00 - 0.03 X10*3/uL [facility] Lymphocytes Absolute Auto 1.1(L) 1.2 - 4.9 X10*3/uL [facility] Monocytes Absolute Auto 0.4 0.1 - 1.2 X10*3/uL [facility] Eosinophils Absolute Auto 0.1 0.0 - 0.4 X10*3/uL [facility] Basophils Absolute Auto 0.0 0.0 - 0.2 X10*3/uL [facility] NRBC Abs Auto 0.000 0.0 - 0.012 X10*3/uL [facility] Blood Venous blood specimen / Unknown 03/13/2025 10:55 AM EDT 03/13/2025 12:19 PM EDT us Zahraa Roca DO LAB BLOOD ORDERABLES Final R esult [facility] [address] [place] [phone] * Hepatitis B surface antigen, EIA (03/13/2025 10:55 AM EDT) Hepatitis B Surface Ag Negative Negative [facility] Blood Venous blood specimen / Unknown 03/13/2025 10:55 AM EDT 03/13/2025 12:24 PM EDT Zahraa Roca DO LAB BLOOD ORDERABLES Final R esult Performing Organization Address [facility] Co de Phone Number [facility] [address] [place] [phone] * RPR (Monitor) with Reflex to??Titer (03/13/2025 10:55 AM EDT) Pathologist [facility] RPR (Monitor) w/Refl Titer NON-REACTI VE NON-REACT OTONIEL [facility] Comment:THIS TEST WAS PERFOR MED AT:[employer] [address] [id number] MATHIAS MD Rapid Plasma Reagin Ab Titer TNP [facility] Blood Venous blood specimen / Unknown 03/13/2025 10:55 AM EDT 03/13/2025 12:24 PM EDT Zahraa Roca DO LAB BLOOD ORDERABLES Final R esult Performing Organization Address City/[facility]/ZIP Co de Phone Number [facility] [address] [place] [phone] * HIV-1/2 Antigen and Antibodies, Fourth Generation, with Reflexes (03/13/2025 10:55 AM EDT) Pathologist [facility] HIV AB/AG Nonreactive Nonreactive [facility] Comment:HIV-1 p24 Ag and/or HIV-1/HIV-2 Ab not detected.A test result that is nonreactive does not exclude thepossibility of exposure to or infection with HIV-1 and/orHIV-2. Nonreactive results in this assay for individualswith prior exposure to HIV-1 and/or HIV-2 may be due toantigen and antibody levels that are below the limit ofdetection of this assay.The [employer] HIV Ag/Ab Combo assay result andsupplemental assay results should be interpreted inconjunction with the patient's clinical presentation,history and other laboratory results. If the results areinconsistent with clinical evidence, additional testing issuggested to confirm the result. Blood Venous blood specimen / Unknown 03/13/2025 10:55 AM EDT 03/13/2025 12:24 PM EDT Zahraa Roca DO LAB BLOOD ORDERABLES Final R esult Performing Organization Address [facility]/ZIP Co de Phone Number [facility] [address] [place] [phone] * Hepatitis B Surface Antibody, Qualitative (03/13/2025 10:55 AM EDT) ~Hepatitis B Surface Antibody NONREACTIVE Nonreactive [facility] Comment:Nonreactive: < 8.00 mIU/mL Blood Venous blood specimen / Unknown 03/13/2025 10:55 AM EDT 03/13/2025 12:24 PM EDT Zahraa Roca DO LAB BLOOD ORDERABLES Final R esult Performing Organization Address City/[facility] Co de Phone Number [facility] [address] [place] [phone] * TSH (03/13/2025 10:55 AM EDT) Thyroid Stimulating Hormone 2.23 0.32 - 4.0 uIU/mL [facility] Comment:TSH 3rd Generation ( [facility]) Blood Venous blood specimen / Unknown 03/13/2025 10:55 AM EDT 03/13/2025 12:29 PM EDT Zahraa Roca LAB BLOOD ORDERABLES Final R esult Performing Organization Address City/[facility]/ZIP Co de Phone Number [facility] [address] [place] [phone] * T4, Free (03/13/2025 10:55 AM EDT) Free T4 (Free Thyroxine) 1.01 0.71 - 1.85 ng/dL [facility] Blood Venous blood specimen / Unknown 03/13/2025 10:55 AM EDT 03/13/2025 12:29 PM EDT Zahraa Roca LAB BLOOD ORDERABLES Final R esult Performing Organization Address [facility] Co de Phone Number [facility] [address] [place] [phone] * Hemoglobin A1c (03/13/2025 10:55 AM EDT) Hemoglobin A1c 5.5 <6.0 % [facility] Comment:Hemoglobin A1C Refer ence Range Adults: 4.8 - 6.0 % Non diabetic: < 6.0 % Goal: < 7.0 %Additional Action Suggested: > 8.0 %Note: Hemoglobin A1c results are invalid for patients with abnormal amounts of HbF. Blood transfusions may impact the HbA1c concentration in the patient sample. Estimated Average Glucose 111 mg/dL [facility] Comment:eAG = Estimated ave rage glucose which is %A1C expressed asaverage glucose, using the formula of the I3V-KfmsaioRjzzeyi Glucose study (ADAG), Diabetes Care, Vol.31,#8,2007 Blood Venous blood specimen / Unknown 03/13/2025 10:55 AM EDT 03/13/2025 12:19 PM EDT Zahraa Roca DO LAB BLOOD ORDERABLES Final R esult Performing Organization Address City/[facility] Co de Phone Number [facility] [address] [place] [phone] * Hepatic Function Panel (03/13/2025 10:55 AM EDT) Bilirubin, Total 0.3 0.0 - 1.0 mg/dL [facility] Bilirubin, Direct 0.1 0.0 - 0.5 mg/dL [facility] Aspartate Amino Transferase 25 5 - 37 U/L [facility] Alanine Aminotransferase 16 0 - 40 U/L [facility] Total Protein 6.5 6.5 - 8.0 g/dL [facility] Albumin Level 4.1 3.5 - 5.0 g/dL [facility] Alkaline Phosphatase 116 39 - 117 U/L [facility] Blood Venous blood specimen / Unknown 03/13/2025 10:55 AM EDT 03/13/2025 12:29 PM EDT us Zahraa Roca DO LAB BLOOD ORDERABLES Final R esult [facility] [address] [place] [phone] * Lipid Panel, Standard (03/13/2025 10:55 AM EDT) Triglycerides 68 <150 mg/dL [facility] Comment:Desirable Triglyceri de: less than 150 mg/dLBorderline High Triglyceride 150-199 mg/dLHigh Triglyceride: 200-499 mg/dLVery High Triglyceride: greater than or equal to 5OO mg/dL Cholesterol 150 <200 mg/dL [facility] Comment:Desirable Cholestero l: less than 200 mg/dLBorderline High Cholesterol: 200-239 mg/dLHigh Cholesterol: greater than 239 mg/dL LDL Cholesterol Calculated 89 <100 mg/dL [facility] Comment:Desirable LDL: less than 100 mg/dLNear Optimal/Above Optimal LDL: 110- 129 mg/dLBorderline High LDL: 130-159 mg/dLHigh LDL: 160-189 mg/dLVery High LDL: greater than or equal to 190 mg/dL HDL Cholesterol 48 >40 mg/dL [facility] Comment:Desirable HDL: great er than 40 mg/dL Note: This HDL assay may give artificially low results in patients with liver disease. Blood Venous blood specimen / Unknown 03/13/2025 10:55 AM EDT 03/13/2025 12:29 PM EDT us Zahraa Roca DO LAB BLOOD ORDERABLES Final R esult Performing Organization Address [facility] Co de Phone Number [facility] [address] [place] [phone] * (ABNORMAL) Basic Metabolic Panel (03/13/2025 10:55 AM EDT) Sodium 138 135 - 145 mmol/L [facility] Potassium 4.2 3.3 - 5.1 mmol/L [facility] Chloride 104 96 - 108 mmol/L [facility] Carbon Dioxide 27 22 - 29 mmol/L [facility] Anion Gap 11(L) 12 - 20 [facility] Urea Nitrogen (BUN) 17(H) 9 - 16 mg/dL [facility] Creatinine, Serum 0.72 0.5 - 1.4 mg/dL [facility] Estimated Glomerular Filt Rate >60 [facility] Comment:Chronic Kidney Disea se: Estimated GFR < 60 mL/min/1.03w3Robzth Kidney Disease: Estimated GFR < 15 mL/min/1.73m2 Glucose 92 60 - 115 mg/dL [facility] Calcium 8.7 8.4 - 10.2 mg/dL [facility] Blood Venous blood specimen / Unknown 03/13/2025 10:55 AM EDT 03/13/2025 12:29 PM EDT Zahraa Roca DO LAB BLOOD ORDERABLES Final R esult Performing Organization Address [facility] Co de Phone Number [facility] [address] [place] [phone] * XR Facial Bones 3+ Views (03/13/2025 10:46 AM EDT) Anatomical Region Laterality Modality Head, Neck, Facial bones Radiogr aphic Imaging 03/13/2025 10:4 6 AM EDT Narrative 03/13/2025 12:30 PM EDT [address] [address] XRay Report Signed Patient: Cristobal Enriquez MR#: [id number] 54 : 1970 Acct:[id number] Age/Sex: 54 / M ADM Date: 03/13/25 Loc: [facility] Attending Dr: Zahraa Roca DO Ordering Physician: Zahraa Roca DO Date of Service: 03/13/25 Procedure(s): XR facial bones min 3V Accession Number(s): [id number] cc: Zahraa Roca DO EXAMINATION: XR FACIAL [...] 03/13/25 1227 DD/ 1046 TD/TT: 03/13/25 1100 Project Manager Interior Design: Procedure Note Donotuseinterpreter, Image - 03/13/[address] [address] XRay Report Signed Patient: Cristobal Enriquez JMR#: [id number] 54 : 1970Acct:[id number] Age/Sex: 54 / MADM Date: 03/13/25 Loc: [facility] Attending Dr: Zahraa Roca DO Ordering Physician: Zahraa Roca DO Date of Service: 03/13/25 Procedure(s): XR facial bones min 3V Accession Number(s): [id number] cc: Zahraa Roca DO EXAMINATION: XR FACIAL [...] 03/13/25 1227 DD/ 1046 TD/TT: 03/13/25 1100 Project Manager Interior Design: Zahraa Roca DO IMG XR PROCEDURES Final Resu lt * XR Wrist 3+ Views Right (03/13/2025 10:42 AM EDT) Anatomical Region Laterality Modality Upper Extremities, Wrist Right Radiogr aphic Imaging 03/13/2025 10:4 2 AM EDT Narrative 03/13/2025 12:32 PM EDT [address] [address] XRay Report Signed Patient: Cristobal Enriquez MR#: [id number] 54 : 1970 Acct:[id number] Age/Sex: 54 / M ADM Date: 03/13/25 Loc: HO.[facility] Attending Dr: Zahraa Roca DO Ordering Physician: Zahraa Roca DO Date of Service: 03/13/25 Procedure(s): XR wrist RT min 3V Accession Number(s): [id number] cc: Zahraa Roca DO EXAMINATION: XR WRIST, RIGHT CLINICAL INFORMATION: R wrist swelling and pain COMPARISON: 10/05/2021. TECHNIQUE: PA, lateral, oblique, and scaphoid views of the right wrist. FINDINGS: No fracture, dislocation, or suspicious bone lesion. There is mild to moderate dorsal lunate tilt. Severe radiocarpal joint space narrowing with tmdp-vi-gkhy appearance. There is a subchondral cyst in [...] 03/13/25 1229 DD/ 1042 TD/TT: 03/13/25 1100 Project Manager Interior Design: Procedure Note Donotuseinterpreter, Image - 03/13/[address] [address] XRay Report Signed Patient: Cristobal Enriquez JMR#: [id number] 54 : 1970Acct:[id number] Age/Sex: 54 / MADM Date: 03/13/25 Loc: HO.[facility] Attending Dr: Zahraa Roca DO Ordering Physician: Zahraa Roca DO Date of Service: 03/13/25 Procedure(s): XR wrist RT min 3V Accession Number(s): [id number] cc: Zahraa Roca DO EXAMINATION: XR WRIST, RIGHT CLINICAL INFORMATION: R wrist swelling and pain COMPARISON: 10/05/2021. TECHNIQUE: PA, lateral, oblique, and scaphoid views of the right wrist. FINDINGS: No fracture, dislocation, or suspicious bone lesion. There is mild to moderate dorsal lunate tilt. Severe radiocarpal joint space narrowing with gppa-gx-npay appearance. There is a subchondral cyst in [...] 03/13/25 1229 DD/ 1042 TD/TT: 03/13/25 1100 Project Manager Interior Design: Zahraa Roca DO IMG XR PROCEDURES Final Resu lt * XR Hand 3+ Views Right (03/13/2025 10:40 AM EDT) Anatomical Region Laterality Modality Upper Extremities, Hand Right Radiogra phic Imaging 03/13/2025 10:4 0 AM EDT Narrative 03/13/2025 12:32 PM EDT [address] [address] XRay Report Signed Patient: Cristobal Enriquez MR#: [id number] 54 : 1970 Acct:[id number] Age/Sex: 54 / M ADM Date: 03/13/25 Loc: [facility] Attending Dr: Zahraa Roca DO Ordering Physician: Zahraa Roca DO Date of Service: 03/13/25 Procedure(s): XR hand RT min 3V Accession Number(s): [id number] cc: Zahraa Roca DO EXAMINATION: XR HAND, [...] 03/13/25 1229 DD/ 1040 TD/TT: 03/13/25 1100 Project Manager Interior Design: Procedure Note Donotuseinterpreter, Image - 03/13/[address] [address] XRay Report Signed Patient: Cristobal Enriquez JMR#: [id number] 54 : 1970Acct:[id number] Age/Sex: 54 / MADM Date: 03/13/25 Loc: HO.[facility] Attending Dr: Zahraa Roca DO Ordering Physician: Zahraa Roca DO Date of Service: 03/13/25 Procedure(s): XR hand RT min 3V Accession Number(s): [id number] cc: Zahraa Roca DO EXAMINATION: XR HAND, [...] 03/13/25 1229 DD/ 1040 TD/TT: 03/13/25 1100 Project Manager Interior Design: Zahraa Roca DO IMG XR PROCEDURES Final Resu lt * Hm Colonoscopy (03/16/2023 9:43 AM EDT) Historical Provider HEALTH MAINTENANCE Final Result * Fecal Globin by Immunochemistry (07/13/2022 12:00 AM EST) Fecal Globin By Immunochemistry SEE NOTE MEETiiN [facility] Comment: FECAL GLOBIN BY IMMUNOCHEMISTRY Micro Number: [id number] Test Status: Final Specimen Source: Insure (tm) fobt test card Specimen Quality: Adequate Fecal Globin: Not Detected 07/13/2022 07/28/2022 8:2 7 AM EST Zahraa Roca DO LAB BODY FLUIDS AND STOOLS O RDERABLES Final Result [facility] [address] [place] [phone] [employer] [address], ([address]) [place] [phone] from Last 3 Months or Most Recently Relevant to Health Maintenance Insurance [facility] STANDARD MEDICARE DENTAL-[facility] MEDICAID STAND ADULT Care Teams Tea Tree Farmer Relationship Specialty Start Date End Date Zahraa Roca DO [address] [place] [address] PCP - General Family Medicine 07/25/18 Christian Soria FNP [address] [place] [address] Nurse Practitioner Family Medicine 06/24/23
--- OUTSIDE RECORDS SUMMARY | 2025-06-06 12:38 | XMS_ITS | Encounter Summary ---
Author Organization [employer] Address [address] 7[address] [place] [address] Care Team Providers Care Cork Compounder Name Role Phone Zahraa Roca DO Primary Care Provider + [phone] Christian Soria Unavailable Unavailable Reason for Visit * Reason Comments Med Refill Encounter Details Date Type Department Care Team ([facility] st Contact Info) Description 05/09/2025 Refill [facility] [address] [place], [place] [phone] Zahraa Roca DO [address] [place], [place] [phone] Anxiety Social History Tobacco Use Types Packs/Day [...] Description 06/17/2025 8:30 AM EST Clinical Support [address] [address] Mere Rios, RN 07/01/2025 9:30 AM EST Clinical Support [address] [address] Mere Rios, RN 07/08/2025 10:30 AM EST Clinical Support [address] [address] Mere Rios, RN 07/15/2025 8:30 AM EST Clinical Support [address] [address] Mere Rios, RN 07/15/2025 9:30 AM EST Clinical Support [address] [address] Mere Rios, RN 07/22/2025 8:30 AM EST Clinical Support [address] [address] Mere Rios, RN 07/29/2025 8:30 AM EST Clinical Support [address] [address] Mere Rios, RN documented as of this encounter Visit Diagnoses Diagnosis Anxiety Anxiety state, unspecified documented in this encounter Additional Health Concerns Assessment Noted Time PHQ-9 Depression Total Score: 16 10/16/ 025 3:09 PM EDT documented as of this encounter Care Teams Cork Compounder Relationship Specialty Start Date End Date Zahraa Roca DO [address] [place] [address] PCP - General Family Medicine 07/25/18 Christian Soria FNP [address] [place] [address] Nurse Practitioner Family Medicine 06/24/23 documented as of this encounter
--- OUTSIDE RECORDS SUMMARY | 2025-06-06 12:38 | XMS_ITS | Encounter Summary ---
Author Organization [employer] Address [address] [place] [address] 7 [place] [address] Care Team Providers Care Second Vp Hr Assessment Name Role Phone Zahraa Roca DO Primary Care Provider [phone] Christian Soria Unavailable Unavailable Reason for Visit * Reason Onset Date Comments Med Refill 12/31/2022 Encounter Details Date Type Department Care Team (Late st Contact Info) Description 12/31/2022 Telephone [facility] MEDICINE [address] [place], [place] [phone] Zahraa Roca DO [address] [place], [place] [phone] Med Refill Social History Tobacco Use Types [...] 8:30 AM EST Clinical Support [facility] [place] [address] Mere Rios, HENRIK 07/01/2025 9:30 AM EST Clinical Support [facility] [place], JANICE [address] Mere Rios, HENRIK 07/08/2025 10:30 AM EST Clinical Support [facility] [place] [address] Mere Rios, HENRIK 07/15/2025 8:30 AM EST Clinical Support [facility] [place], J[place] [address] Mere Rios, HENRIK 07/15/2025 9:30 AM EST Clinical Support [facility] [place] [address] Mere Rios, HENRIK 07/22/2025 8:30 AM EST Clinical Support [facility] [place] [address] Mere Rios, HENRIK 07/29/2025 8:30 AM EST Clinical Support [facility] [place] [address] Mere Rios, RN documented as of this encounter Visit Diagnoses Not on filedocumented in this encounter Additional Health Concerns Assessment Noted Time PHQ-9 Depression Total Score: 0 08/24/19 23 2:33 PM EST documented as of this encounter Care Teams Second Vp Hr Assessment Relationship Specialty Start Date End Date [place] [address] PCP - General Family Medicine 07/25/18 [place] [address] Nurse Practitioner Family Medicine 06/24/23 documented as of this encounter
--- OUTSIDE RECORDS SUMMARY | 2025-06-06 12:38 | XMS_ITS | Encounter Summary ---
Author Organization [employer] Address [address] [facility] 7t [place] [address] Care Team Providers Care Diesel Dinkey Operator Name Role Phone Zahraa Roca DO Primary Care Provider + [phone] Christian Soria Unavailable Unavailable Reason for Visit * Reason Comments Med Refill Encounter Details Date Type Department Care Team ([facility] st Contact Info) Description 02/14/2025 Refill [facility] [address] [place], [place] [phone] Zahraa Roca DO [address] [place], [place] [phone] Anxiety Social History Tobacco Use Types Packs/Day [...] Description 06/17/2025 8:30 AM EST Clinical Support [address] [address] Mere Rios, RN 07/01/2025 9:30 AM EST Clinical Support [address] [address] Mere Rios, RN 07/08/2025 10:30 AM EST Clinical Support [address] [address] Mere Rios, RN 07/15/2025 8:30 AM EST Clinical Support [address] [address] Mere Rios, RN 07/15/2025 9:30 AM EST Clinical Support [address] [address] Mere Rios, RN 07/22/2025 8:30 AM EST Clinical Support [address] [address] Mere Rios, RN 07/29/2025 8:30 AM EST Clinical Support [address] [address] Mere Rios, RN documented as of this encounter Visit Diagnoses Diagnosis Anxiety Anxiety state, unspecified documented in this encounter Additional Health Concerns Assessment Noted Time PHQ-9 Depression Total Score: 16 10/16/ 025 3:09 PM EDT documented as of this encounter Care Teams Diesel Dinkey Operator Relationship Specialty Start Date End Date Zahraa Roca DO [address] [place] [address] PCP - General Family Medicine 07/25/18 Christian Soria FNP [address] [place] [address] Nurse Practitioner Family Medicine 06/24/23 documented as of this encounter
--- OUTSIDE RECORDS SUMMARY | 2025-06-06 12:38 | XMS_ITS | Encounter Summary ---
Author Organization [employer] Address [address] [facility] 7 [place] [address] Care Team Providers Care [place] Or [place] Auditor Name Role Phone Zahraa Roca DO Primary Care Provider [phone] Christian Soria Unavailable Unavailable Reason for Visit * Reason Onset Date Comments PT-1 10/02/2024 Encounter Details Date Type Department Care Team ([facility] st Contact Info) Description 10/02/2024 Telephone [facility] MEDICINE [address] [place], [place] [phone] Zahraa Roca DO [address] [place], [place] [phone] PT-1 Social History Tobacco Use Types Packs/Day [...] status of Pt 1 Contact pt at [phone] * Telephone Encounter - Go Vasquez - 10/02/2024 9:06 AM EDT Patient calling requesting PT1 Home Address verified: Y/N: Yes Provider name or facility name: [facility] Care Resource [address] [address] Escort needed: Y/N: No Do you have a wheelchair: Y/N: No If yes- Manual or electric: Visits: (7 Days x Weekly) documented in this encounter Plan of Treatment Upcoming Encounters Date Type Department Care Team ([facility] st Contact Info) Description 06/17/2025 8:30 AM EST Clinical Support [address] [address] Mere Rios, HENRIK 07/01/2025 9:30 AM EST Clinical Support [facility] JANICE [address] Mere Rios, HENRIK 07/08/2025 10:30 AM EST Clinical Support [facility] [address] Mere Rios, HENRIK 07/15/2025 8:30 AM EST Clinical Support [facility] [address] Mere Rios, HENRIK 07/15/2025 9:30 AM EST Clinical Support [facility] JANICE [address] Mere Rios, HENRIK 07/22/2025 8:30 AM EST Clinical Support [facility] [address] Mere Rios, HENRIK 07/29/2025 8:30 AM EST Clinical Support [facility] [address] Mere Rios, RN documented as of this encounter Visit Diagnoses Not on filedocumented in this encounter Additional Health Concerns Assessment Noted Time PHQ-9 Depression Total Score: 0 11/28/19 24 11:23 AM EDT documented as of this encounter Care Teams [place] Auditor Relationship Specialty Start Date End Date Zahraa Roca DO JANICE Rae PCP - General Family Medicine 07/25/18 [place] [address] Nurse Practitioner Family Medicine 06/24/23 documented as of this encounter
--- OUTSIDE RECORDS SUMMARY | 2025-06-06 12:38 | XMS_ITS | Encounter Summary ---
Author Organization [employer] Address [address] [facility] 7t [place] [address] Care Team Providers Care Barrel Rifler Button Name Role Phone Abelino Zahraa Primary Care Provider Christian Soria Unavailable Unavailable Encounter Details Date Type Department Care Team (Late st Contact Info) Description 09/20/2022 Orders Only [facility] [address] [place] [address] Zahraa Andino LPN Social History Tobacco Use [...] Description 06/17/2025 8:30 AM EST Clinical Support [address] [address] Mere Rios, HENRIK 07/01/2025 9:30 AM EST Clinical Support [address] [address] Mere Rios, RN 07/08/2025 10:30 AM EST Clinical Support [address] [address] Mere Rios, RN 07/15/2025 8:30 AM EST Clinical Support [address] [address] Mere Rios, RN 07/15/2025 9:30 AM EST Clinical Support [facility] [place] [facility] [place] [address] Mere Rios, RN 07/22/2025 8:30 AM EST Clinical Support [facility] [place] [place] [facility] [place] [address] Mere Rios, RN 07/29/2025 8:30 AM EST Clinical Support [facility] [place] [facility] [place] [address] Mere Rios, RN documented as of this encounter Visit Diagnoses Not on filedocumented in this encounter Additional Health Concerns Assessment Noted Time PHQ-9 Depression Total Score: 0 08/24/19 23 2:33 PM EST documented as of this encounter Care Teams Barrel Rifler Button Relationship Specialty Start Date End Date Zahraa Roca DO [place] [facility] [place] [place] [address] PCP - General Family Medicine 07/25/18 Christian [place] [address] Nurse Practitioner Family Medicine 06/24/23 documented as of this encounter
== END 2025-06-06 10:22 | disposition home or self-care (01) ==
LOC: HO.US 10:21
PROVIDERS: PCP Family Medicine; Visit Provider Surgery Vascular Surgery
DX: I83.11 Varicose veins of right lower extremity with inflammation (principal); I83.12 Varicose veins of left lower extremity with inflammation
CPT/HCPCS: 93970

== ENCOUNTER → 2025-06-06 10:23 | Outpatient (BNV) | payer MEDICARE, MEDICAID, SELFPAY | PROVIDERS: PCP Family Medicine; Visit Provider Radiology Diagnostic Radiology | DX: I83.11 Varicose veins of right lower extremity with inflammation (principal) | CPT/HCPCS: 93970 ==

== ENCOUNTER 2025-07-01 17:01 | Outpatient (REF) | payer MEDICARE, MEDICAID, SELFPAY ==
--- OUTSIDE RECORDS SUMMARY | 2025-07-01 09:30 | XMS_ITS | Encounter Summary ---
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 The patient last took Clonazepam (Klonopin) on: 07/01/2025 Medication effective: Yes Sleep habits: ok Therapist: Yes OBJECTIVE: FEED GRINDER checked: 07/01/2025 Pill count completed for Lorazepam (Ativan), count today is 0 , anticipated count should be 0, thisis as expected. Last PCP visit: 06/05/2025 SIDDHARTHA-7 Total Score: 11 (05/06/2025 10:13 AM) Controlled substance agreement signed: Controlled Substance Agreement 09/12/2024 QUALITY CONTROL ENGINEERING TECHNICIAN Tier: 1 Current Medications[1] Smoking status: Denies [...] prescribed and follow up at the next QUALITY CONTROL ENGINEERING TECHNICIAN visit orsooner if needed. Cristobal Enriquez has verbalized understanding of care plan. Future Appointments Date Time Provider Department Center 07/08/2025 10:30 AM Mere Rios RN [facility] 07/15/2025 8:30 AM Mere Rios RN [facility] 07/15/2025 9:30 AM Mere Rios RN [facility] 07/22/2025 8:30 AM Mere Rios RN [facility] 07/29/2025 8:30 AM Mere Rios RN [facility] 08/23/2025 9:30 AM Jill Boudreaux MD [facility] Mere Rios RN [1] Current Outpatient [...] Care Team (Late st Contact Info) Description 07/08/2025 10:30 AM EST Clinical Support [facility] [place] [address] Mere Rios, HENRIK 07/15/2025 8:30 AM EST Clinical Support [facility] [place] [address] Mere Rios, HENRIK 07/22/2025 8:30 AM EST Clinical Support [facility] [place] [address] Mere Rios, HENRIK 07/29/2025 8:30 AM EST Clinical Support [facility] [place] [address] Mere Rios, HENRIK 08/23/2025 9:30 AM EST Office Visit [facility] [place] [address] [place] [address] Scheduled Orders Name Type Priority Associated Diagnoses Orde r Schedule Drug Monitoring, Cocaine Metabolite, Quantitative, Urine Lab Routine Long-term current use of benzodiazepine Ordered: 07/01/2025 Drug Monitoring, Benzodiazepines, Quantitative, Urine Lab Routine Long-term current use of benzodiazepine Ordered: 07/01/2025 documented as of this encounter Procedures Procedure Name Priority Date/Time Associated Diagnosis Comments POCT MARIO-14 URINE DRUG SCREEN Routine 07/01/2025 9:31 AM EST Long-term current use of benzodiazepine documented in this encounter Results * (ABNORMAL) POCT MARIO-14 Urine Drug Screen (07/01/2025 9:31 AM EST) Pathologist [facility] THC Positive(A) Negative Cocaine Screen, Urine Positive(A) Negative Opiate Screen, Urine Negative Negative Methamphetamine Screen Urine Negative Negative Amphetamine Screen, Urine Negative Negative Benzodiazepines Screen, Urine Negative(A) Negative Comment:QUALITY CONTROL ENGINEERING TECHNICIAN pt on Clonazepam Barbiturate Screen, Urine Negative [...] - 07/01/2025 9:31 AM EST UTOX cup Lot#[id number] Exp. 06/24/26 Internal Pass Control Zahraa Roca DO POINT OF CARE TEST ENTER/JOANNA T ORDERABLES Final Result documented in this encounter Visit Diagnoses Diagnosis Long-term current use of benzodiazepine- Primary documented in this encounter Additional Health Concerns Assessment Noted Time PHQ-9 Depression Total Score: 16 10/16/ 025 3:09 PM EDT documented as of this encounter Care Teams Deputy Sheriff Court Services Relationship Specialty Start Date End Date Zahraa Roca DO [address] [place] [address] PCP - General Family Medicine 07/25/18 Christian Soria FNP [address] [place] [address] Nurse Practitioner Family Medicine 06/24/23 documented as of this encounter
--- OUTSIDE RECORDS SUMMARY | 2025-07-02 02:20 | XMS_ITS | Encounter Summary ---
Author Organization [employer] Address 75 [facility] 7 [place] [address] Care Team Providers Care Map And Chart Mounter Name Role Phone Zahraa Roca DO Primary Care Provider [phone] Christian Soria Unavailable Unavailable Reason for Visit * Reason Onset Date Comments Appointment Request 06/19/2024 Encounter Details Date Type Department Care Team ([facility] st Contact Info) Description 06/19/2024 Telephone [facility] MEDICINE [address] [place], [place] [phone] Zahraa Roca DO [address] [place], [place] [phone] Appointment Request Social History Tobacco Use Types [...] Description 07/08/2025 10:30 AM EST Clinical Support [address] [address] Mere Rios, HENRIK 07/15/2025 8:30 AM EST Clinical Support [address] [address] Mere Rios, RN 07/22/2025 8:30 AM EST Clinical Support [address] [address] Mere Rios, RN 07/29/2025 8:30 AM EST Clinical Support [address] [address] Mere Rios, RN 08/23/2025 9:30 AM EST Office Visit [address] [place] [address] Jill Boudreaux MD [address] [place] [address] documented as of this encounter Visit Diagnoses Not on filedocumented in this encounter Additional Health Concerns Assessment Noted Time PHQ-9 Depression Total Score: 0 11/28/19 24 11:23 AM EDT documented as of this encounter Care Teams Map And Chart Mounter Relationship Specialty Start Date End Date Zahraa Roca DO 230 [place] [address] PCP - General Family Medicine 07/25/18 Christian Soria FNP [address] [place] [address] Nurse Practitioner Family Medicine 06/24/23 documented as of this encounter
--- OUTSIDE RECORDS SUMMARY | 2025-07-02 02:20 | XMS_ITS | Encounter Summary ---
Author Organization [employer] Address 75 [facility] 7t [place] [address] Care Team Providers Care Practice Billing Associate Name Role Phone AbelinoZahraa Primary Care Provider [phone] Christian Soria Unavailable Unavailable Encounter Details Date Type Department Care Team (Late st Contact Info) Description 08/12/2022 Orders Only [facility] CHC MED & PEDS [address] [place], [place] [phone] Zahraa Andino LPN Social History Tobacco Use [...] Description 07/08/2025 10:30 AM EST Clinical Support [address] [address] Mere Rios, HENRIK 07/15/2025 8:30 AM EST Clinical Support [address] [address] Mere Rios, RN 07/22/2025 8:30 AM EST Clinical Support [address] [address] Mere Rios, HENRIK 07/29/2025 8:30 AM EST Clinical Support [address] [address] Mere Rios, HENRIK 08/23/2025 9:30 AM EST Office Visit [facility] MEDICINE 230 [place] [address] Jill Boudreaux MD [address] [place] [address] documented as of this encounter Visit Diagnoses Not on filedocumented in this encounter Care Teams Practice Billing Associate Relationship Specialty Start Date End Date Zahraa Roca DO [address] [place] [address] PCP - General Family Medicine 07/25/18 Christian Soria FNP [address] [place] [address] Nurse Practitioner Family Medicine 06/24/23 documented as of this encounter
--- OUTSIDE RECORDS SUMMARY | 2025-07-02 02:20 | XMS_ITS | Encounter Summary ---
Author Organization [employer] Address 75 [facility] 7t [place] [address] Care Team Providers Care Rag Room Supervisor Name Role Phone Abelino Zahraa Primary Care Provider Christian Soria Unavailable Unavailable Encounter Details Date Type Department Care Team (Late st Contact Info) Description 10/21/2022 Orders Only [facility] CHC MED & PEDS [address] [place] [address] Zahraa Andino LPN Social History Tobacco Use [...] Description 07/08/2025 10:30 AM EST Clinical Support [address] [address] Mere Rios, HENRIK 07/15/2025 8:30 AM EST Clinical Support [address] [address] Mere Rios, RN 07/22/2025 8:30 AM EST Clinical Support [address] [address] Mere Rios, RN 07/29/2025 8:30 AM EST Clinical Support [address] [address] Mere Rios RN 08/23/2025 9:30 AM EST Office Visit [facility] MEDICINE 230 [place] [address] Jill Boudreaux MD 230 [place] [address] documented as of this encounter Visit Diagnoses Not on filedocumented in this encounter Additional Health Concerns Assessment Noted Time PHQ-9 Depression Total Score: 0 08/24/19 23 2:33 PM EST documented as of this encounter Care Teams Rag Room Supervisor Relationship Specialty Start Date End Date Zahraa Roca DO [address] [place] [address] PCP - General Family Medicine 07/25/18 Christian Soria FNP [address] [place] [address] Nurse Practitioner Family Medicine 06/24/23 documented as of this encounter
--- OUTSIDE RECORDS SUMMARY | 2025-07-02 02:20 | XMS_ITS | Encounter Summary ---
Author Organization [employer] Address 75 [facility] 7 [place] [address] Care Team Providers Care Training Analyst Name Role Phone Zahraa Roca DO Primary Care Provider [phone] Christian Soria Unavailable Unavailable Reason for Visit * Reason Onset Date Comments PT-1 10/02/2024 Encounter Details Date Type Department Care Team ([facility] st Contact Info) Description 10/02/2024 Telephone [facility] MEDICINE 230 [place], [place] [phone] Zahraa Roca DO 230 [place], [place] [phone] PT-1 Social History Tobacco Use Types Packs/Day [...] status of Pt 1 Contact pt at [phone] * Telephone Encounter - Go Vasquez - 10/02/2024 9:06 AM EDT Patient calling requesting PT1 Home Address verified: Y/N: Yes Provider name or facility name: [facility] Care Resource [address] [address] Escort needed: Y/N: No Do you have a wheelchair: Y/N: No If yes- Manual or electric: Visits: (7 Days x Weekly) documented in this encounter Plan of Treatment Upcoming Encounters Date Type Department Care Team ([facility] st Contact Info) Description 07/08/2025 10:30 AM EST Clinical Support [address] [address] Mere Rios, HENRIK 07/15/2025 8:30 AM EST Clinical Support [address] [place] [address] Mere Rios, RN 07/22/2025 8:30 AM EST Clinical Support [address] [address] Mere Rios, RN 07/29/2025 8:30 AM EST Clinical Support [address] [address] Mere Rios, HENRIK 08/23/2025 9:30 AM EST Office Visit [address] [address] Jill Boudreaux MD [address] [place] [address] documented as of this encounter Visit Diagnoses Not on filedocumented in this encounter Additional Health Concerns Assessment Noted Time PHQ-9 Depression Total Score: 0 11/28/19 24 11:23 AM EDT documented as of this encounter Care Teams Training Analyst Relationship Specialty Start Date End Date Zah[place] [address] PCP - General Family Medicine 07/25/18 Christian Soria FNP [address] [place] [address] Nurse Practitioner Family Medicine 06/24/23 documented as of this encounter
--- OUTSIDE RECORDS SUMMARY | 2025-07-02 02:20 | XMS_ITS | Encounter Summary ---
Author Organization [employer] Address 75 [facility] 7 [place] [address] Care Team Providers Care Veterinary Inspector Name Role Phone Zahraa Roca DO Primary Care Provider [phone] Christian Soria Unavailable Unavailable Reason for Visit * Reason Onset Date Comments PT-1 10/01/2024 Encounter Details Date Type Department Care Team ([facility] st Contact Info) Description 10/01/2024 Telephone [facility] MEDICINE 230 [place], [place] [phone] Zahraa Roca DO 230 [place], [place] [phone] PT-1 (/) Social History Tobacco Use Types [...] EDT Tc from pt requesting for the Manager Tele[employer] locations for all his Pt 1 to be changed to [address] [place] [address]. If any questions contact pt at [phone] documented in this encounter Plan of Treatment Upcoming Encounters Date Type Department Care Team (Late st Contact Info) Description 07/08/2025 10:30 AM EST Clinical Support [address] [place] [address] Mere Rios, HENRIK 07/15/2025 8:30 AM EST Clinical Support [address] [address] Mere Rios, RN 07/22/2025 8:30 AM EST Clinical Support [address] [address] Mere Rios, RN 07/29/2025 8:30 AM EST Clinical Support [address] [address] Mere Rios, RN 08/23/2025 9:30 AM EST Office Visit [facility] MEDICINE 230 [place] [address] Jill Boudreaux MD 230 [place] [address] documented as of this encounter Visit Diagnoses Not on filedocumented in this encounter Additional Health Concerns Assessment Noted Time PHQ-9 Depression Total Score: 0 11/28/19 24 11:23 AM EDT documented as of this encounter Care Teams Veterinary Inspector Relationship Specialty Start Date End Date Zahraa Roca DO [address] [place] [address] [phone] PCP - General Family Medicine 07/25/18 Christian Soria FNP [address] [place] [address] Nurse Practitioner Family Medicine 06/24/23 documented as of this encounter
--- OUTSIDE RECORDS SUMMARY | 2025-07-02 02:20 | XMS_ITS | Encounter Summary ---
Author Organization [employer] Address 75 [facility] 7t [place] [address] Care Team Providers Care Steel Tester Name Role Phone Abelino Zahraa Primary Care Provider Christian Soria Unavailable Unavailable Encounter Details Date Type Department Care Team (Late st Contact Info) Description 09/20/2022 Orders Only [facility] CHC MED & PEDS [address] [place] [address] Zahraa Andino LPN Social History Tobacco Use [...] Description 07/08/2025 10:30 AM EST Clinical Support [address] [address] Mere Rios, HENRIK 07/15/2025 8:30 AM EST Clinical Support [address] [address] Mere Rios, RN 07/22/2025 8:30 AM EST Clinical Support [address] [address] Mere Rios, RN 07/29/2025 8:30 AM EST Clinical Support [address] [address] Mere Rios RN 08/23/2025 9:30 AM EST Office Visit [facility] MEDICINE 230 [place] [address] iJll Boudreaux MD 230 [place] [address] documented as of this encounter Visit Diagnoses Not on filedocumented in this encounter Additional Health Concerns Assessment Noted Time PHQ-9 Depression Total Score: 0 08/24/19 23 2:33 PM EST documented as of this encounter Care Teams Steel Tester Relationship Specialty Start Date End Date Zahraa Roca DO [address] [place] [address] PCP - General Family Medicine 07/25/18 Christian Soria FNP [address] [place] [address] Nurse Practitioner Family Medicine 06/24/23 documented as of this encounter
--- OUTSIDE RECORDS SUMMARY | 2025-07-02 02:20 | XMS_ITS | Encounter Summary ---
Author Organization [employer] Address [address] [facility] [address] 7t [place] [address] Care Team Providers Care Federal Court [employer] Appeals Law Clerk Name Role Phone Abelino Zahraa Primary Care Provider + [phone] Christian Soria Unavailable Unavailable Encounter Details Date Type Department Care Team (Late st Contact Info) Description 11/03/2023 Orders Only [facility] MEDICINE 230 [place] [address] Provider, MD Hiral Social History Tobacco Use [...] Description 07/08/2025 10:30 AM EST Clinical Support [address] [address] Mere Rios, HENRIK 07/15/2025 8:30 AM EST Clinical Support [address] [address] Mere Rios, HENRIK 07/22/2025 8:30 AM EST Clinical Support [address] [address] Mere Rios, HENRIK 07/29/2025 8:30 AM EST Clinical Support [address] [address] Mere Rios, HENRIK 08/23/2025 9:30 AM EST Office Visit [address] [address] Jill Boudreaux MD [address] [place] [address] documented as of this encounter Procedures Procedure [...] as of this encounter Care Teams [employer] Law Clerk Relationship Specialty Start Date End Date Zahraa Roca DO 230 [place] [address] PCP - General Family Medicine 07/25/18 Christian Soria FNP 230 [place] [address] Nurse Practitioner Family Medicine 06/24/23 documented as of this encounter
--- OUTSIDE RECORDS SUMMARY | 2025-07-02 02:20 | XMS_ITS | Encounter Summary ---
Author Organization [employer] Address [address] [facility] [address] 7t [place] [address] Care Team Providers Care Commercial Representative Name Role Phone Betzaida Rocafer Primary Care Provider + [phone] Christian Soria Unavailable Unavailable Encounter Details Date Type Department Care Team (Late st Contact Info) Description 04/17/2024 Telephone [facility] ADULT DENTAL 230 [place] [address] Lore Vargas DDS Social History Tobacco Use [...] Description 07/08/2025 10:30 AM EST Clinical Support [address] [address] Mere Rios, HENRIK 07/15/2025 8:30 AM EST Clinical Support [address] [address] Mere Rios, RN 07/22/2025 8:30 AM EST Clinical Support [address] [address] Mere Rios, RN 07/29/2025 8:30 AM EST Clinical Support [address] [address] Mere Rios, RN 08/23/2025 9:30 AM EST Office Visit [address] [address] Jill Boudreaux MD [address] [place] [address] documented as of this encounter Visit Diagnoses Not on filedocumented in this encounter Additional Health Concerns Assessment Noted Time PHQ-9 Depression Total Score: 0 11/28/19 24 11:23 AM EDT documented as of this encounter Care Teams Commercial Representative Relationship Specialty Start Date End Date Zahraa Roca DO 230 [place] [address] PCP - General Family Medicine 07/25/18 Christian Soria FNP 230 [place] [address] Nurse Practitioner Family Medicine 06/24/23 documented as of this encounter
--- OUTSIDE RECORDS SUMMARY | 2025-07-02 02:20 | XMS_ITS | Encounter Summary ---
Author Organization [employer] Address 75 [facility] 7t [place] [address] Care Team Providers Care Ends Down Checker Name Role Phone AbelinoZahraa Primary Care Provider [phone] Christian Soria Unavailable Unavailable Reason for Visit * Reason Onset Date Comments Med Refill 07/01/2025 UTOX Neg BZO, Pos JYOTI 07/01/2025 Encounter Details Date Type Department Care Team (Late st Contact Info) Description 07/01/2025 Refill [facility] MEDICINE 230 [place] [address] Mere Rios, HENRIK Anxiety Social History Tobacco [...] Telephone Encounter - Mere Rios RN - 07/01/2025 9:38 AM EST Pt had CAR ATTENDANT RV appointment today UTOX Neg BZO, Pos JYOTI. Sent out for confirmation. Stated he smoked marijuana with his friend 2 days ago documented in this encounter Plan of Treatment Upcoming Encounters Date Type Department Care Team (Late st Contact Info) Description 07/08/2025 10:30 AM EST Clinical Support [address] [address] Mere Rios, HENRIK 07/15/2025 8:30 AM EST Clinical Support [address] [address] Mere Rios, HENRIK 07/22/2025 8:30 AM EST Clinical Support [address] [address] Mere Rios, HENRIK 07/29/2025 8:30 AM EST Clinical Support [address] [address] Mere Rios, HENRIK 08/23/2025 9:30 AM EST Office Visit [address] [address] Jill Buodreaux MD [address] [place] [address] documented as of this encounter Visit Diagnoses Diagnosis Anxiety Anxiety state, unspecified documented in this encounter Additional Health Concerns Assessment Noted Time PHQ-9 Depression Total Score: 16 10/16/ 025 3:09 PM EDT documented as of this encounter Care Teams Ends Down Checker Relationship Specialty Start Date End Date Zahraa Roca DO 230 [place] [address] PCP - General Family Medicine 07/25/18 Christian Soria FNP 230 [place] [address] Nurse Practitioner Family Medicine 06/24/23 documented as of this encounter
--- OUTSIDE RECORDS SUMMARY | 2025-07-02 02:20 | XMS_ITS | Encounter Summary ---
Author Organization [employer] Address 75 [facility] 7t [place] [address] Care Team Providers Care Supervisor Plasma Name Role Phone Zahraa Roca DO Primary Care Provider [phone] Christian Soria Unavailable Unavailable Reason for Visit * Reason Onset Date Comments PT-1 07/13/2024 Encounter Details Date Type Department Care Team ([facility] st Contact Info) Description 07/13/2024 Telephone [facility] MEDICINE 230 [place], [place] [phone] Zahraa Roca DO 230 [place], [place] [phone] PT-1 Social History Tobacco Use Types Packs/Day [...] Provider name or facility name: [address] Escort needed: Y/N: No Do you have a wheelchair: Y/N: No If yes- Manual or electric: Visits: (3x Monthly) documented in this encounter Plan of Treatment Upcoming Encounters Date Type Department Care Team (Late st Contact Info) Description 07/08/2025 10:30 AM EST Clinical Support [address] [address] Mere Rios, RN 07/15/2025 8:30 AM EST Clinical Support [address] [address] Mere Rios, RN 07/22/2025 8:30 AM EST Clinical Support [address] [address] Mere Rios, HENRIK 07/29/2025 8:30 AM EST Clinical Support [address] [address] Mere Rios, HENRIK 08/23/2025 9:30 AM EST Office Visit [address] [address] Jill Boudreaux MD [address] [place] [address] documented as of this encounter Visit Diagnoses Not on filedocumented in this encounter Additional Health Concerns Assessment Noted Time PHQ-9 Depression Total Score: 0 11/28/19 24 11:23 AM EDT documented as of this encounter Care Teams Supervisor Plasma Relationship Specialty Start Date End Date Zahraa Roca DO [address] [place] [address] PCP - General Family Medicine 07/25/18 Christian Soria FNP [address] [place] [address] Nurse Practitioner Family Medicine 06/24/23 documented as of this encounter
--- OUTSIDE RECORDS SUMMARY | 2025-07-02 02:20 | XMS_ITS | Encounter Summary ---
Author Organization [employer] Address 75 [facility] 7 [place] [address] Care Team Providers Care Neurology Technologist Name Role Phone Zahraa Roca DO Primary Care Provider [phone] Christian Soria Unavailable Unavailable Reason for Visit * Reason Onset Date Comments PT1 10/24/2024 Encounter Details Date Type Department Care Team ([facility] st Contact Info) Description 10/24/[address] [facility] MEDICINE 230 [place], [place] [phone] Zahraa Roca DO 230 [place], [place] [phone] PT1 Social History Tobacco Use Types Packs/Day [...] facility name: Mayur harrington Facility Address: [address] [facility] Escort needed: Y/N: No Do you have a wheelchair: Y/N: No If yes- Manual or electric: no Visits:3x a month for 1 year 2.)Patient calling requesting PT1 Home Address verified: Y/N: Yes Provider name or facility name: Dr latonya Christine Facility Address: [address] [facility] [facility] [address] Escort needed: Y/N: No Visits: 3x a month for 1 year 3.) Patient calling requesting PT1 Home Address verified: Y/N: Yes Provider name or facility name: Everton Lawton MD Facility Address: [address], [place] [address] Escort needed: Y/N: No Visits: 3 x a month for 1 year 4.) Patient calling requesting PT1 Home Address verified: Y/N: Yes Provider name or facility name: PCP and dental appt Facility Address: [address] [facility] [address] Escort needed: Y/N: No Visits: 4x a month for 1 year documented in this encounter Plan of Treatment Upcoming Encounters Date Type Department Care Team (Late st Contact Info) Description 07/08/2025 10:30 AM EST Clinical Support [facility] [place] [address] Mere Rios, HENRIK 07/15/2025 8:30 AM EST Clinical Support [facility] [place] [address] Mere Rios, RN 07/22/2025 8:30 AM EST Clinical Support [facility] [place] [address] Mere Rios, HENRIK 07/29/2025 8:30 AM EST Clinical Support [facility] [place] [address] Mere Rios, HENRIK 08/23/2025 9:30 AM EST Office Visit [facility] [place] [address] Jill Boudreaux MD [facility] [place] [address] documented as of this encounter Visit Diagnoses Not on filedocumented in this encounter Additional Health Concerns Assessment Noted Time PHQ-9 Depression Total Score: 16 10/16/ 025 3:09 PM EDT documented as of this encounter Care Teams Neurology Technologist Relationship Specialty Start Date End Date Zahraa Roca DO [facility] [place] [address] PCP - General Family Medicine 07/25/18 Christian Soria FNP [address] [place] [address] Nurse Practitioner Family Medicine 06/24/23 documented as of this encounter
--- OUTSIDE RECORDS SUMMARY | 2025-07-02 02:20 | XMS_ITS | Encounter Summary ---
Author Organization [employer] Address 75 [facility] 7 [place] [address] Care Team Providers Care Electronic Technologist Name Role Phone Zahraa Roca DO Primary Care Provider [phone] Christian Soria Unavailable Unavailable Reason for Visit * Reason Onset Date Comments Nurse Triage 05/03/2025 Encounter Details Date Type Department Care Team ([facility] st Contact Info) Description 05/03/2025 Telephone [facility] MEDICINE 230 [place], [place] [phone] Zahraa Roca DO 230 [place], [place] [phone] Nurse Triage Social History Tobacco Use Types [...] 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 Pt states rescheduled to Tuesday but [...] caller accepted this outcome. Contact pt at [phone] documented in this encounter Plan of Treatment Upcoming Encounters Date Type Department Care Team (Late st Contact Info) Description 07/08/2025 10:30 AM EST Clinical Support [address] [address] Mere Rios, HENRIK 07/15/2025 8:30 AM EST Clinical Support [address] [address] Mere Rios, HENRIK 07/22/2025 8:30 AM EST Clinical Support [address] [address] Mere Rios, HENRIK 07/29/2025 8:30 AM EST Clinical Support [address] [address] Mere Rios, HENRIK 08/23/2025 9:30 AM EST Office Visit [address] [address] Jill Boudreaux MD [address] [place] [address] documented as of this encounter Visit Diagnoses Not on filedocumented in this encounter Additional Health Concerns Assessment Noted Time PHQ-9 Depression Total Score: 16 10/16/ 025 3:09 PM EDT documented as of this encounter Care Teams Electronic Technologist Relationship Specialty Start Date End Date Zahraa Roca DO 230 [place] [address] PCP - General Family Medicine 07/25/18 Christian Soria FNP [address] [place] [address] Nurse Practitioner Family Medicine 06/24/23 documented as of this encounter
--- OUTSIDE RECORDS SUMMARY | 2025-07-02 02:20 | XMS_ITS | Encounter Summary ---
Author Organization [employer] Address 75 [facility] 7t [place] [address] Care Team Providers Care Hosiery Looper Name Role Phone Zahraa Roca DO Primary Care Provider + [phone] Christian Soria Unavailable Unavailable Reason for Visit * Reason Comments Med Refill Encounter Details Date Type Department Care Team ([facility] st Contact Info) Description 07/01/2025 Refill [facility] MEDICINE [address] [place], [place] [phone] Zahraa Roca DO [address] [place], [place] [phone] Anxiety Social History Tobacco Use Types Packs/Day [...] Description 07/08/2025 10:30 AM EST Clinical Support [address] [address] Mere Rios, HENRIK 07/15/2025 8:30 AM EST Clinical Support [address] [address] Mere Rios, HENRIK 07/22/2025 8:30 AM EST Clinical Support [address] [address] Mere Rios, HENRIK 07/29/2025 8:30 AM EST Clinical Support [address] [address] Mere Rios, HENRIK 08/23/2025 9:30 AM EST Office Visit [address] [address] Jill Boudreaux MD [address] [place] [address] documented as of this encounter Visit Diagnoses Diagnosis Anxiety Anxiety state, unspecified documented in this encounter Additional Health Concerns Assessment Noted Time PHQ-9 Depression Total Score: 16 025 3:09 PM EDT documented as of this encounter Care Teams Hosiery Looper Relationship Specialty Start Date End Date Zahraa Roca DO [address] [place] [address] PCP - General Family Medicine 07/25/18 Christian Soria FNP [address] [place] [address] Nurse Practitioner Family Medicine 06/24/23 documented as of this encounter
--- OUTSIDE RECORDS SUMMARY | 2025-07-02 02:20 | XMS_ITS | Encounter Summary ---
Author Organization [employer] Address 75 [facility] 7t [place] [address] Care Team Providers Care Automatic Machine Attendant Name Role Phone Zahraa Roca DO Primary Care Provider [phone] Christian Soria Unavailable Unavailable Encounter Details Date Type Department Care Team (Late st Contact Info) Description 08/31/[address] [address] Zahraa Roca DO [address] [place] [phone] Social History Tobacco Use Types Packs/Day Years [...] Description 07/08/2025 10:30 AM EST Clinical Support [address] [address] Mere Rios, HENRIK 07/15/2025 8:30 AM EST Clinical Support [address] [address] Mere Rios, RN 07/22/2025 8:30 AM EST Clinical Support [address] [address] Mere Rios, RN 07/29/2025 8:30 AM EST Clinical Support [address] [address] Mere Rios RN 08/23/2025 9:30 AM EST Office Visit [address] [address] Jill Boudreaux MD [address] [place] [phone] documented as of this encounter Visit Diagnoses Not on filedocumented in this encounter Additional Health Concerns Assessment Noted Time PHQ-9 Depression Total Score: 0 08/24/19 23 2:33 PM EST documented as of this encounter Care Teams Automatic Machine Attendant Relationship Specialty Start Date End Date Zahraa Roca DO [address] [place] [address] PCP - General Family Medicine 07/25/18 Christian Soria FNP [address] [place] [address] Nurse Practitioner Family Medicine 06/24/23 documented as of this encounter
--- OUTSIDE RECORDS SUMMARY | 2025-07-02 02:20 | XMS_ITS | Encounter Summary ---
Author Organization [employer] Address 75 [facility] 7t [place] [address] Care Team Providers Care Hi Teacher Name Role Phone AbelinoZahraa Primary Care Provider [phone] Christian Soria Unavailable Unavailable Encounter Details Date Type Department Care Team (Late st Contact Info) Description 07/06/2022 Orders Only [facility] MED & PEDS [address] [place], [place] [phone] Zahraa Andino LPN Social History Tobacco Use [...] Description 07/08/2025 10:30 AM EST Clinical Support [address] [address] Mere Rios, HENRIK 07/15/2025 8:30 AM EST Clinical Support [address] [address] Mere Rios, RN 07/22/2025 8:30 AM EST Clinical Support [address] [address] Mere Rios, HENRIK 07/29/2025 8:30 AM EST Clinical Support [address] [address] Mere Rios, HENRIK 08/23/2025 9:30 AM EST Office Visit [facility] MEDICINE [address] [place] [address] Jill Boudreaux MD [address] [place] [address] documented as of this encounter Visit Diagnoses Not on filedocumented in this encounter Care Teams Hi Teacher Relationship Specialty Start Date End Date Zahraa Roca DO [address] [place] [address] PCP - General Family Medicine 07/25/18 Christian Soria FNP [address] [place] [address] Nurse Practitioner Family Medicine 06/24/23 documented as of this encounter
--- OUTSIDE RECORDS SUMMARY | 2025-07-02 02:20 | XMS_ITS | Encounter Summary ---
Author Organization [employer] Address 75 [facility] 7 [place] [address] Care Team Providers Care Cloth Carrier Name Role Phone Zahraa Roca DO Primary Care Provider [phone] Christian Soria Unavailable Unavailable Reason for Visit * Reason Onset Date Comments PT-1 04/17/2024 Encounter Details Date Type Department Care Team ([facility] st Contact Info) Description 04/17/2024 Telephone [facility] MEDICINE [address] [place], [place] [phone] Zahraa Roca DO [address] [place], [place] [phone] PT-1 Social History Tobacco Use Types Packs/Day [...] Y/N: Yes Provider name or facility name: [facility] Facility Address: [address] [place] [address] Escort needed: Y/N: No Do you have a wheelchair: Y/N: No If yes- Manual or electric: N/A Visits: Twice a month documented in this encounter Plan of Treatment Upcoming Encounters Date Type Department Care Team (Late st Contact Info) Description 07/08/2025 10:30 AM EST Clinical Support [address] [address] Mere Rios, RN 07/15/2025 8:30 AM EST Clinical Support [facility] MEDICINE [address] [place] [address] Mere Rios, RN 07/22/2025 8:30 AM EST Clinical Support [address] [address] Mere Rios, RN 07/29/2025 8:30 AM EST Clinical Support [address] [address] Mere Rios RN 08/23/2025 9:30 AM EST Office Visit [address] [address] Jill Boudreaux MD [address] [place] [address] documented as of this encounter Visit Diagnoses Not on filedocumented in this encounter Additional Health Concerns Assessment Noted Time PHQ-9 Depression Total Score: 0 11/28/19 24 11:23 AM EDT documented as of this encounter Care Teams Cloth Carrier Relationship Specialty Start Date End Date Zahraa Roca DO [address] [place] [address] PCP - General Family Medicine 07/25/18 Christian Soria FNP [address] [place] [address] Nurse Practitioner Family Medicine 06/24/23 documented as of this encounter
--- OUTSIDE RECORDS SUMMARY | 2025-07-02 02:20 | XMS_ITS | Encounter Summary ---
Author Organization [employer] Address 75 [facility] 7 [place] [address] Care Team Providers Care Shot Blaster Name Role Phone Zahraa Roca DO Primary Care Provider [phone] Christian Soria Unavailable Unavailable Reason for Visit * Reason Onset Date Comments PT-1 03/15/2024 Encounter Details Date Type Department Care Team ([facility] st Contact Info) Description 03/15/2024 Telephone [facility] MEDICINE [address] [place], [place] [phone] Zahraa Roca DO [address] [place], [place] [phone] PT-1 Social History Tobacco Use Types Packs/Day [...] Y/N: Yes Provider name or facility name: [facility] Facility Address: [address] [place] [address] Escort needed: Y/N: No Do you have a wheelchair: Y/N: No If yes- Manual or electric: no Visits: 3 documented in this encounter Plan of Treatment Upcoming Encounters Date Type Department Care Team (Late st Contact Info) Description 07/08/2025 10:30 AM EST Clinical Support [facility] MEDICINE [address] [place] [address] Mere Rios, HENRIK 07/15/2025 8:30 AM EST Clinical Support [facility] MEDICINE [address] [place] [address] Mere Rios, RN 07/22/2025 8:30 AM EST Clinical Support [facility] MEDICINE [address] [place] [address] Mere Rios, RN 07/29/2025 8:30 AM EST Clinical Support [address] [address] Mere RiosHENRIK 08/23/2025 9:30 AM EST Office Visit [facility] MEDICINE [address] [place] [address] Jill Boudreaux MD [address] [place] [address] documented as of this encounter Visit Diagnoses Not on filedocumented in this encounter Additional Health Concerns Assessment Noted Time PHQ-9 Depression Total Score: 0 11/28/19 24 11:23 AM EDT documented as of this encounter Care Teams Shot Blaster Relationship Specialty Start Date End Date Zahraa Roca DO [address] [place] [address] PCP - General Family Medicine 07/25/18 Christian Soria FNP [address] [place] [address] Nurse Practitioner Family Medicine 06/24/23 documented as of this encounter
--- OUTSIDE RECORDS SUMMARY | 2025-07-02 02:20 | XMS_ITS | Encounter Summary ---
Author Organization [employer] Address [address] [facility] [address] 7t [place] [address] Care Team Providers Care Biostatistics Professor Name Role Phone AbelinoZahraa Primary Care Provider [phone] Christian Soria Unavailable Unavailable Encounter Details Date Type Department Care Team (Latest Contact Info) Description 07/01/2025 Travel Social History Tobacco Use Types Packs/Day [...] Description 07/08/2025 10:30 AM EST Clinical Support [address] [address] Mere Rios, HENRIK 07/15/2025 8:30 AM EST Clinical Support [address] [address] Mere Rios, HENRIK 07/22/2025 8:30 AM EST Clinical Support [address] [address] Mere Rios, HENRIK 07/29/2025 8:30 AM EST Clinical Support [address] [address] Mere Rios, HENRIK 08/23/2025 9:30 AM EST Office Visit [address] [address] Jill Boudreaux MD [address] [place] [address] documented as of this encounter Visit Diagnoses Not on filedocumented in this encounter Additional Health Concerns Assessment Noted Time PHQ-9 Depression Total Score: 16 025 3:09 PM EDT documented as of this encounter Care Teams Biostatistics Professor Relationship Specialty Start Date End Date Zahraa Roca DO [address] [place] [address] PCP - General Family Medicine 07/25/18 Christian Soria FNP [address] [place] [address] Nurse Practitioner Family Medicine 06/24/23 documented as of this encounter
--- OUTSIDE RECORDS SUMMARY | 2025-07-02 02:20 | XMS_ITS | Clinical Summary ---
Author Organization [employer] Address [address] [facility] 7t [place] [address] Care Team Providers Care International Marketing Intern Name Role Phone AbelinoZahraa Primary Care Provider [phone] Christian Soria Unavailable Unavailable Allergies No known [...] irritation. 28 g 1 03/14/20 25 Active hydrOXYzine pamoate (Vistaril) 25 MG capsuleIndica tions:Anxiety Take 1 capsule (25 mg) by mouth every 6 (six) hours if needed for anxiety. 30 capsule 1 5 12:26 PM EST 06/05/20 25 026 Active lidocaine (Lidoderm) 5 % patchIndicati ons:Closed fracture of one rib of left side, initial encounter Apply 1 patch topically if needed each day for mild pain. Remove & discard patch within 12 hours or as directed by MD. 30 patch 1 06/05/20 25 Active clonazePAM (KlonoPIN) 1 MG tabletIndicat ions:Anxiety Take 1 tablet (1 mg) by mouth 2 times daily. 16 tablet 5 12:37 PM EST 07/01/20 25 025 Active clonazePAM (KlonoPIN) 1 MG [...] 28 tablet 5 12:26 PM EST 06/05/20 25 025 Discontinued(Re order (will not trigger notification to Pharmacy)) clonazePAM (KlonoPIN) 1 MG tabletIndicat ions:Anxiety Take 1 tablet (1 mg) by mouth 2 times daily. Do not start before June 19, 2025. 24 tablet 5 10:57 AM EST 06/19/20 25 025 Discontinued(Re order (will not trigger [...] any issues or concerns, he should contact [facility]. All his questions were answered. He agrees [...] Encounters Date Type Department Care Team Description 07/01/2025 9:30 AM EST Clinical Support [facility] [address] [place] [address] Mere Rios, HENRIK Long-term current use of benzodiazepine (Primary Dx) 07/01/2025 Refill [facility] [address] [place] [address] Zahraa Roca DO Anxiety 07/01/2025 Refill [facility] [address] [place] [address] Mere Rios, HENRIK Anxiety 07/01/2025 Travel 06/17/2025 8:30 AM EST Clinical Support [facility] [address] [place] [address] Mere Rios, HENRIK Long-term current use of benzodiazepine (Primary Dx) 06/17/2025 Refill [facility] [address] [place] [address] Mere Rios RN Anxiety 06/17/2025 Travel 06/17/2025 Refill [facility] [address] [facility] [place] [place] [address] Zahraa Roca DO Anxiety 06/14/2025 Telephone [facility] [place] [address] Zahraa Roca DO Prior Authorization (PA: Lidocaine 5% Patch) 06/05/2025 9:30 AM EST Office Visit [facility] [place] [address] Zahraa Roca DO Closed fracture of one rib of left side, initial encounter (Primary Dx); Anxiety 06/05/2025 9:30 AM EST Clinical Support [facility] [place] [address] Mere Rios, HENRIK Long-term current use of benzodiazepine (Primary Dx) 06/05/2025 Travel 06/03/2025 Telephone [facility] [place] [address] Meer Rios, HENRIK NCNS [employer]OL PROGRAM[employer] RV; 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; Pt cancelled [employer] RV same day 05/31/20[address] [place] [address] Zahraa Roca DO 05/29/2025 Orders Only [facility] External Provider, [facility] 05/22/2025 Telephone [facility] [place] [address] Zahraa Roca DO Med Refill 05/20/2025 11:00 AM EDT Clinical Support [facility] [place] [address] Mere Rios, RN Long-term current use of benzodiazepine (Primary Dx) 05/20/2025 Telephone [facility] [place] [address] Mere Rios, RN Clonazepam count 05/20/[address] [address] Mere Rios, HENRIK Random [employer] RV today; UTOX Pos JYOTI, FENT, Neg BZO; UTOX Confirmation 05/20/2025 Travel 05/20/2025 Telephone [facility] [place] [address] Zahraa Roca, Appointment Request 05/14/2025 Outside Procedure [facility] [address] [place] [address] Aniyah Malloy, OD Presbyopia (Primary Dx) 05/09/2025 Refill [facility] [address] [place] [address] Zahraa Roca, Anxiety 05/09/2025 Refill [facility] [address] [place] [address] Zahraa Roca, Anxiety 05/06/2025 1:00 PM EDT Office Visit [facility] [address] [place] [address] Aniyah Malloy, OD Hyperopia of both eyes (Primary Dx) 05/06/2025 9:30 AM EDT Clinical Support [facility] [address] [place] [address] Mere Rios RN Long-term current use of benzodiazepine (Primary Dx) 05/06/2025 Telephone [facility] [address] [place] [address] Mere Rios, HENRIK SIDDHARTHA scoring; UTOX Pos JYOTI 05/06/2025 Travel 05/03/2025 Telephone [facility] [address] [place] [address] Zahraa Roca, Nurse Triage 05/03/2025 Refill [facility] [address] [place] [address] Zahraa Roca, Anxiety 04/29/2025 Telephone [facility] [address] [place] [address] Mere Rios, HENRIK NCNS [employer]OL PROGRAM[employer] RV today 04/18/2025 Refill [facility] [address] [place] [address] Zahraa Roca, Anxiety 04/09/2025 Telephone [facility] [address] [place] [address] Zahraa Roca, Appointment Request 04/08/2025 Telephone [facility] [address] [place] [address] Zahraa Roca DO Referral from Last 3 Months Immunizations Immunization Administration [...] Description 07/08/2025 10:30 AM EST Clinical Support [address] [address] Mere Rios, RN 07/15/2025 8:30 AM EST Clinical Support [address] [address] Mere Rios, RN 07/22/2025 8:30 AM EST Clinical Support [address] [address] Mere Rios, RN 07/29/2025 8:30 AM EST Clinical Support [address] [address] Mere Rios, RN 08/23/2025 9:30 AM EST Office Visit [address] [address] Jill Boudreaux MD [address] [place] [address] Health Maintenance Due Date Last Done Comments CT Colonography 1968 Dental Prophylaxis 1968 FIT DNA/Cologuard 1968 Sigmoidoscopy 1968 Derm Melanoma Skin Check 1968 RSV Patients and Patients Aged 60 years or older (1 - Risk 50-74 years 1-dose series) 2018 FIT 07/13/2023 07/13/2022, 07/13/2022 FOBT 07/13/2023 07/13/2022 Dental Oral Exam 09/20/2024 03/19/2024 Dental X-Ray: Bitewings 03/20/2025 03/19/2024, 10/10 COVID-19 Vaccine ( season) 2025 Influenza Vaccine (#1) 2025 Depression Monitoring 04/18/2025 10/16/2024, 025 SDOH Screening 10/08/2025 10/08/2024 Alcohol/Substance Use Screening 10/16/2025 10/16/2024 Disability Screening 10/16/2025 10/16/2024 Colonoscopy 03/16/2026 03/16/2023, 03/16/2023 Colorectal Cancer Screening 03/16/2026 Tobacco Screening [...] AM EST Long-term current use of benzodiazepine POCT MARIO-14 URINE DRUG SCREEN Routine 06/17/2025 8:42 AM EST Long-term current use of benzodiazepine VASC US LOWER EXTREMITY VENOUS INSUFFICIENCY BILATERAL [...] AM EDT Long-term current use of benzodiazepine HIV 1/2 ANTIGEN/ANTIBODY, FOURTH GENERATION W/RFL Routine 03/13/2025 10:55 AM EDT Anxiety Chronic bilateral low back pain, unspecified whether sciatica present Chronic right hip pain Chronic daily headache Drug-induced constipation Varicose veins of lower extremity with pain, unspecified laterality Vitreous floaters of right eye Right wrist pain Pain of cheek Healthcare maintenance Other fatigue LIPID PANEL, STANDARD Routine 03/13/2025 10:55 AM EDT Anxiety Chronic bilateral low back pain, unspecified whether sciatica present Chronic right hip pain Chronic daily headache Drug-induced constipation Varicose veins of lower extremity with pain, unspecified laterality Vitreous floaters of right eye Right wrist pain Pain of cheek Healthcare maintenance Other specified diseases of liver INTRAORAL - COMPLETE SERIES OF RADIOGRAPHIC IMAGES [...] Urine Drug Screen (07/01/2025 9:31 AM EST) Only the most recent of5 resultswithin the time period is included. 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 06/24/26 Internal Pass Control Zahraa Roca DO POINT OF CARE TEST ENTER/JOANNA T ORDERABLES Final Result * VASC US Lower Extremity Venous Insufficiency Bilateral (06/06/2025 11:00 AM EST) 06/06/2025 11:0 0 AM EST [facility] IMAGING - 06/06/2025 12:28 PM EST [address] [address] Ultrasound Report Signed Patient: Cristobal Enriquez MR#: [id number] 54 : 1970 Acct:[id number] Age/Sex: 55 / M ADM Date: 06/06/25 Loc: HO.US Attending Dr: Everton Lawton MD Ordering Physician: Everton Lawton MD Date of Service: 06/06/25 Procedure(s): US venous insuf bilat Accession Number(s): [id number] cc: Zahraa Roca DO; Everton Lawton MD [...] by: Nancie Neil MD 06/06/2025 12:26 PM [facility] [place] Dictated By: Nancie Neil MD Signed By: <Electronically signed by Nancie Neil MD in OV> 06/06/25 1226 DD/ 1100 TD/TT: 06/06/25 1135 Lot[employer] Agent: BERNABE Procedure Note Donotuseinterpreter, Image - 06/06/[address] [address] Ultrasound Report Signed Patient: Cristobal Enriquez JMR#: [id number] 54 : 1970Acct:[id number] Age/Sex: 55 / MADM Date: 06/06/25 Loc: HO.US Attending Dr: Everton Lawton MD Ordering Physician: Everton Lawton MD Date of Service: 06/06/25 Procedure(s): US venous insuf bilat Accession Number(s): [id number] cc: Zahraa Roca DO; Everton Lawton MD [...] Nancie Neil MD 06/06/2025 12:26 PM EST RP Dictated By: Nancie Neil MD Signed By: <Electronically signed by Nancie Neil MD in OV> 06/06/25 1226 DD/ 1100 TD/TT: 06/06/25 1135 [employer] Agent: BERNABE us [facility] External Provider CV VASC ULAR PROCEDURES Final Result [facility] [address] [place], [place] [id number] * XR Ribs 3 Views Left w/ Chest (05/29/2025 11:52 AM EST) Anatomical Region Laterality Modality Radiographic Nara ging 05/29/2025 11:5 2 AM EST Narrative 05/29/2025 11:58 AM EST [address] [address] XRay Report Signed Patient: Cristobal Enriquez MR#: [id number] 54 : 1970 Acct:[id number] Age/Sex: 55 / M ADM Date: 05/29/25 Loc: .ED Attending Dr: Ordering Physician: Lynnette Rosado DO Date of Service: 05/29/25 Procedure(s): XR ribs LT min 3V w CXR1V Accession Number(s): [id number] cc: Lynnette Rosado DO; Zahraa Roca DO [...] 05/29/25 1155 DD/ 1152 TD/TT: 05/29/25 1150 Lotteries Agent: Procedure Note Donotuseinterpreter, Image - 05/29/2025 [place] [address] XRay Report Signed Patient: Cristobal Enriquez JMR#: [id number] 54 : 1970Acct:[id number] Age/Sex: 55 / MADM Date: 05/29/25 Loc: .ED Attending Dr: Ordering Physician: Lynnette Rosado DO Date of Service: 05/29/25 Procedure(s): XR ribs LT min 3V w CXR1V Accession Number(s): [id number] cc: Lynnette Rosado DO; Zahraa Roca DO [...] 05/29/25 1155 DD/ 1152 TD/TT: 05/29/25 1150 Lot[employer]ies Agent: [facility] External Provider IMG XR PROCEDURES Final Result * Drug Monitoring, Benzodiazepines, Quantitative, Urine (05/20/2025 12:30 PM EDT) Nordiazepam, GCMS Urine NEGATIVE [facility] Comment:CUTOFF 50 NG/ML Oxazepam, GCMS Urine NEGATIVE [facility] Comment:CUTOFF 50 NG/ML Lorazepam GCMS Urine NEGATIVE [facility] Comment:CUTOFF 50 NG/ML Alprazolam, GCMS Urine NEGATIVE [facility] Comment:CUTOFF 25 NG/ML Alphahydroxytriazolam, GCMS Ur NEGATIVE [facility] Comment:CUTOFF 50 NG/ML Temazepam, GCMS Urine NEGATIVE [facility] Comment:CUTOFF 50 NG/ML Alphahydroxymidazolam, GCMS Ur NEGATIVE [facility] Comment:CUTOFF 50 NG/ML Aminoclonazepam, GCMS Urine 140 [facility] Comment:CUTOFF 25 NG/ML Flurazepam Metabolite,GCMS Ur NEGATIVE [facility] Comment:CUTOFF 50 NG/ML Benzodiazepines Comments SEE NOTE [facility] Comment:This drug testing is for medical treatment only. Analysiswas performed as non-forensic testing and these resultsshould be used only by healthcare providers to renderdiagnosis or treatment, or to monitor progress of medicalconditions.Benzodiazepines Notes:Aminoclonazepam detected is consistent with the use of thedrug ClonazepamLDT Notes:Confirmation tests were developed and their analyticalperformance characteristics have been determined by [employer]. It has not been cleared or approved by the FDA.This assay has been validated pursuant to the CLIAregulations and is used for clinical purposes.Healthcare Providers needing Interpretation assistance,please contact us at [phone] ( ) M-F,8am to 10pm ESTPERFORMING SITE:[facility] [employer] [facility], [address] [place] [phone] [employer] Worker: SOCRATES MATHIAS MD, CLIA:[id number] Urine (Urine, Random) 05/20/2025 12:30 PM EDT 05/20/2025 4:29 PM EDT Zahraa Roca DO LAB URINE ORDERABLES Final R esult [facility] [address] [place] [address] [phone] * Drug Monitoring, Fentanyl, with Confirmation, Urine (05/20/2025 12:30 PM EDT) Fentanyl, Ur NEGATIVE [facility] Comment:CUTOFF 0.5 NG/ML Norfentanyl, Ur NEGATIVE [facility] Comment:CUTOFF 0.5 NG/ML Fentanyl Note SEE NOTE [facility] Comment: NOTES AND COMMENTSThis drug testing is for medical treatment only. Analysiswas performed as non-forensic testing and these resultsshould be used only by healthcare providers to renderdiagnosis or treatment, or to monitor progress of medicalconditions. LDT Notes: Confirmation tests were developed andtheir analytical performance characteristics have beendetermined by [employer]. It has not been cleared orapproved by the FDA. This assay has been validated pursuantto the CLIA regulations and is used for clinical purposes.Healthcare Providers needing Interpretation assistance,please contact us at [phone] ( ) M-F,8am to 10pm ESTThis drug testing is for medical treatment only. Analysiswas performed as non-forensic testing and these resultsshould be used only by healthcare providers to renderdiagnosis or treatment, or to monitor progress of medicalconditions.PERFORMING SITE:[facility] [employer] [phone] LaboratoryDirector: FER ARREAGA MD, CLIA: [id number] Urine (Urine, Random) 05/20/2025 12:30 PM EDT 05/20/2025 4:29 PM EDT Zahraa Roca LAB URINE ORDERABLES Final R esult Performing Organization Address [facility] Co de Phone Number [facility] [address] [place] [address] [phone] * Drug Monitoring, Cocaine Metabolite, Quantitative, Urine (05/20/2025 12:30 PM EDT) Only the most recent of2 resultswithin the time period is included. Benzoylecgonine [address] [facility] Comment:CUTOFF 100 NG/ML Cocaine Comments SEE NOTE [facility] Comment:This drug testing is for medical treatment only. Analysiswas performed as non-forensic testing and these resultsshould be used only by healthcare providers torender diagnosis or treatment, or to monitor progress ofmedical conditions.Cocaine Notes:Benzoylecgonine detected is consistent with the use of thedrug Cocaine.LDT Notes:Confirmation tests were developed and their analyticalperformance characteristics have been determined by [employer]. It has not been cleared or approved by the FDA.This assay has been validated pursuant to the CLIAregulations and is used for clinical purposes.Healthcare Providers needing Interpretation assistance,please contact us at [phone] ( ) M-F,8am to 10pm EST Urine (Urine, Random) 05/20/2025 12:30 PM EDT 05/20/2025 4:29 PM EDT Zahraa Roca LAB URINE ORDERABLES Final R esult Performing Organization Address City/[facility]/ZIP Co de Phone Number [facility] [address] [place] [address] [phone] * (ABNORMAL) Drug Monitoring, Methadone Metabolite, Screen, Urine (05/20/2025 12:30 PM EDT) Methadone Screen, Urine Positive( A) Not Detect ng/mL [facility] Comment:Methadone cut-off is 300 ng/mL.Positive results are unconfirmed and should not be used fornon-medical purposes. Urine (Urine, Random) 05/20/2025 12:30 PM EDT 05/20/2025 4:29 PM EDT Zahraa Abelino DO LAB URINE ORDERABLES Final R esult Performing Organization Address City/[facility]/ZIP Co de Phone Number [facility] [address] [place] [address] [phone] * HIV-1/2 Antigen and Antibodies, Fourth Generation, with Reflexes (03/13/2025 10:55 AM EDT) HIV AB/AG Nonreactive Nonreactive [facility] Comment:HIV-1 p24 Ag and/or HIV-1/HIV-2 Ab not detected.A test result that is nonreactive does not exclude thepossibility of exposure to or infection with HIV-1 and/orHIV-2. Nonreactive results in this assay for individualswith prior exposure to HIV-1 and/or HIV-2 may be due toantigen and antibody levels that are below the limit ofdetection of this assay.The [employer] HIV Ag/Ab Combo assay result andsupplemental assay results should be interpreted inconjunction with the patient's clinical presentation,history and other laboratory results. If the results areinconsistent with clinical evidence, additional testing issuggested to confirm the result. Blood Venous blood specimen / Unknown 03/13/2025 10:55 AM EDT 03/13/2025 12:24 PM EDT us Zahraa Roca DO LAB BLOOD ORDERABLES Final R esult Performing Organization Address City/[facility]/ZIP Co de Phone Number [facility] [address] [place] [address] [phone] * Lipid Panel, Standard (03/13/2025 10:55 AM EDT) Triglycerides 68 <150 mg/dL [facility] Comment:Desirable Triglyceri de: less than 150 mg/dLBorderline High Triglyceride 150-199 mg/dLHigh Triglyceride: 200-499 mg/dLVery High Triglyceride: greater than or equal to 5OO mg/dL Cholesterol 150 <200 mg/dL [facility] Comment:Desirable Cholestero l: less than 200 mg/dLBorderline High Cholesterol: 200-239 mg/dLHigh Cholesterol: greater than 239 mg/dL LDL Cholesterol Calculated 89 <100 mg/dL [facility] Comment:Desirable LDL: less than 100 mg/dLNear Optimal/Above Optimal LDL: 110- 129 mg/dLBorderline High LDL: 130-159 mg/dLHigh LDL: 160-189 mg/dLVery High LDL: greater than or equal to 190 mg/dL HDL Cholesterol 48 >40 mg/dL [facility] Comment:Desirable HDL: great er than 40 mg/dL Note: This HDL assay may give artificially low results in patients with liver disease. Blood Venous blood specimen / Unknown 03/13/2025 10:55 AM EDT 03/13/2025 12:29 PM EDT Zahraa Roca DO LAB BLOOD ORDERABLES Final R esult Performing Organization Address City/[facility]/ZIP Co de Phone Number [facility] [address] [place] [phone] * Colonoscopy (03/16/2023 9:43 AM EDT) Historical Provider HEALTH MAINTENANCE Final Result * Fecal Globin by Immunochemistry (07/13/2022 12:00 AM EST) Fecal Globin By Immunochemistry SEE NOTE [email or web address] [facility] [facility] Comment: FECAL GLOBIN BY IMMUNOCHEMISTRY Micro Number: [id number] Test Status: Final Specimen Source: Insure (tm) fobt test card Specimen Quality: Adequate Fecal Globin: Not Detected 07/13/2022 07/28/2022 8:2 7 AM EST Zahraa Roca DO LAB BODY FLUIDS AND STOOLS O RDERABLES Final Result Performing Organization Address City/[facility]/ZIP Co de Phone Number [address], [place] [address] [facility] [address] [facility], ([address]) [place] [address] from Last 3 Months or Most Recently Relevant to Health Maintenance Insurance [facility] STANDARD MEDICARE DENTAL-[facility] MEDICAID STAND ADULT Care Teams International Marketing Intern Relationship Specialty Start Date End Date Zahraa Roca DO [address] [place] [address] PCP - General Family Medicine 07/25/18 Christian Soria FNP [address] [place] [address] Nurse Practitioner Family Medicine 06/24/23
--- OUTSIDE RECORDS SUMMARY | 2025-07-02 02:20 | XMS_ITS | Encounter Summary ---
Author Organization [employer] Address [address] [facility] 7 [place] [address] Care Team Providers Care Crm Coordinator Name Role Phone Zahraa Roca DO Primary Care Provider [phone] Christian Soria Unavailable Unavailable Reason for Visit * Reason Onset Date Comments PT1 01/03/2024 Encounter Details Date Type Department Care Team ([facility] st Contact Info) Description 01/03/2024 Telephone [facility] [address] [place], [place] [phone] Zahraa Roca DO [address] [place], [place] [phone] PT1 Social History Tobacco Use Types Packs/Day [...] or facility name: methadone clinic Facility Address: [address] [place] [address] Escort needed: Y/N: No Do you have a wheelchair: Y/N: No If yes- Manual or electric: none Visits: 7 days a week documented in this encounter Plan of Treatment Upcoming Encounters Date Type Department Care Team ([facility] Contact Info) Description 07/08/2025 10:30 AM EST Clinical Support [address] [address] Mere Rios, HENRIK 07/15/2025 8:30 AM EST Clinical Support [address] [address] Mere Rios, RN 07/22/2025 8:30 AM EST Clinical Support [address] [address] Mere Rios, RN 07/29/2025 8:30 AM EST Clinical Support [address] [address] Mere Rios, RN 08/23/2025 9:30 AM EST Office Visit [address] [address] Jill Boudreaux MD [address] [place] [address] documented as of this encounter Visit Diagnoses Not on filedocumented in this encounter Additional Health Concerns Assessment Noted Time PHQ-9 Depression Total Score: 0 11/28/19 24 11:23 AM EDT documented as of this encounter Care Teams Crm Coordinator Relationship Specialty Start Date End Date Zahraa Roca DO [address] [place] [address] PCP - General Family Medicine 07/25/18 Christian Soria FNP [address] [place] [address] Nurse Practitioner Family Medicine 06/24/23 documented as of this encounter
--- OUTSIDE RECORDS SUMMARY | 2025-07-02 02:20 | XMS_ITS | Encounter Summary ---
Author Organization [employer] Address 75 [facility] 7 [place] [address] Care Team Providers Care Etiquette Teacher Name Role Phone Zahraa Roca DO Primary Care Provider [phone] Christian Soria Unavailable Unavailable Reason for Visit * Reason Onset Date Comments Referral 04/08/2025 Encounter Details Date Type Department Care Team ([facility] st Contact Info) Description 04/08/2025 Telephone [facility] 230 [place], [place] [phone] Zahraa Roca DO 230 [place], [place] [phone] Referral Social History Tobacco Use Types Packs/Day [...] the pt at home. Contact pt at [phone] Pt is requesting to speak with a nurse regarding referral. documented in this encounter Plan of Treatment Upcoming Encounters Date Type Department Care Team (Late st Contact Info) Description 07/08/2025 10:30 AM EST Clinical Support [facility] [address] [place] [address] Mere Rios, HENRIK 07/15/2025 8:30 AM EST Clinical Support [address] [address] Mere Rios, HENRIK 07/22/2025 8:30 AM EST Clinical Support [address] [address] Mere Rios, RN 07/29/2025 8:30 AM EST Clinical Support [address] [address] Mere Rios, RN 08/23/2025 9:30 AM EST Office Visit [address] [address] Jill Boudreaux MD 230 [place] [address] documented as of this encounter Visit Diagnoses Not on filedocumented in this encounter Additional Health Concerns Assessment Noted Time PHQ-9 Depression Total Score: 16 10/16/2 025 3:09 PM EDT documented as of this encounter Care Teams Etiquette Teacher Relationship Specialty Start Date End Date Zahraa Roca DO [address] [place] [address] PCP - General Family Medicine 07/25/18 Christian Soria FNP [address] [place] [address] Nurse Practitioner Family Medicine 06/24/23 documented as of this encounter
--- OUTSIDE RECORDS SUMMARY | 2025-07-02 02:21 | XMS_ITS | Encounter Summary ---
Author Organization [employer] Address 75 [facility] 7t [place] [address] Care Team Providers Care Director Of Grants Name Role Phone Zahraa Roca DO Primary Care Provider + [phone] Christian Soria Unavailable Unavailable Reason for Visit * Reason Comments Med Refill Encounter Details Date Type Department Care Team ([facility] st Contact Info) Description 02/14/2025 Refill [facility] [address] [place], [place] [phone] Zahraa Roca DO [address] [place], [place] [phone] Anxiety Social History Tobacco Use Types Packs/Day [...] Description 07/08/2025 10:30 AM EST Clinical Support [address] [address] Mere Rios, HENRIK 07/15/2025 8:30 AM EST Clinical Support [address] [address] Mere Rios, HENRIK 07/22/2025 8:30 AM EST Clinical Support [address] [address] Mere Rios, HENRIK 07/29/2025 8:30 AM EST Clinical Support [address] [address] Mere Rios, HENRIK 08/23/2025 9:30 AM EST Office Visit [address] [address] Jill Boudreaux MD [address] [place] [address] documented as of this encounter Visit Diagnoses Diagnosis Anxiety Anxiety state, unspecified documented in this encounter Additional Health Concerns Assessment Noted Time PHQ-9 Depression Total Score: 16 025 3:09 PM EDT documented as of this encounter Care Teams Director Of Grants Relationship Specialty Start Date End Date Zahraa Roca DO 230 [place] [address] PCP - General Family Medicine 07/25/18 Christian Soria FNP 230 [place] [address] Nurse Practitioner Family Medicine 06/24/23 documented as of this encounter
--- OUTSIDE RECORDS SUMMARY | 2025-07-02 02:21 | XMS_ITS | Encounter Summary ---
Author Organization [employer] Address 75 [facility] 7 [place] [address] Care Team Providers Care Home Staging Specialist Name Role Phone Zahraa Roca DO Primary Care Provider [phone] Christian Soria Unavailable Unavailable Reason for Visit * Reason Onset Date Comments Appointment Request 08/03/2024 Encounter Details Date Type Department Care Team ([facility] st Contact Info) Description 08/03/2024 Telephone [facility]INE 230 [place], [place] [phone] Zahraa Roca DO 230 [place], [place] [phone] Appointment Request Social History Tobacco Use Types [...] missed appointment with dermatology. Contact pt at [phone] documented in this encounter Plan of Treatment Upcoming Encounters Date Type Department Care Team (Late st Contact Info) Description 07/08/2025 10:30 AM EST Clinical Support [address] [address] Mere Rios, HENRIK 07/15/2025 8:30 AM EST Clinical Support [address] [address] Mere Rios, RN 07/22/2025 8:30 AM EST Clinical Support [address] [address] Mere Rios, RN 07/29/2025 8:30 AM EST Clinical Support [address] [address] Mere Rios, RN 08/23/2025 9:30 AM EST Office Visit [address] [place] [address] Jill Boudreaux MD [address] [place] [address] documented as of this encounter Visit Diagnoses Not on filedocumented in this encounter Additional Health Concerns Assessment Noted Time PHQ-9 Depression Total Score: 0 11/28/19 24 11:23 AM EDT documented as of this encounter Care Teams Home Staging Specialist Relationship Specialty Start Date End Date Zahraa Roca DO [address] [place] [address] PCP - General Family Medicine 07/25/18 Christian Soria FNP [address] [place] [address] Nurse Practitioner Family Medicine 06/24/23 documented as of this encounter
--- OUTSIDE RECORDS SUMMARY | 2025-07-02 02:21 | XMS_ITS | Encounter Summary ---
Author Organization [employer] Address [address] [place] [address] 7t [place] [address] Care Team Providers Care Lead Sales Consultant Name Role Phone YudiZahraa barahona Primary Care Provider + [phone] Christian Soria Unavailable Unavailable Reason for Visit * Reason Comments Med Refill Encounter Details Date Type Department Care Team (Late st Contact Info) Description 12/19/2022 Refill [facility] [address] [place] [address] Christian Soria FNP Anxiety Social History Tobacco [...] 10:30 AM EST Clinical Support [facility] [address] [place] [address] Mere Rios RN 07/15/2025 8:30 AM EST Clinical Support [facility] [address] [place] [address] Mere Rios, HENRIK 07/22/2025 8:30 AM EST Clinical Support [address] [address] Mere Rios, RN 07/29/2025 8:30 AM EST Clinical Support [address] [address] Mere Rios, RN 08/23/2025 9:30 AM EST Office Visit [address] [address] Jill Boudreaux MD [address] [place] [address] documented as of this encounter Visit Diagnoses Diagnosis Anxiety Anxiety state, unspecified documented in this encounter Additional Health Concerns Assessment Noted Time PHQ-9 Depression Total Score: 0 08/24/19 23 2:33 PM EST documented as of this encounter Care Teams Lead Sales Consultant Relationship Specialty Start Date End Date Zahraa Roca DO [address] [place] [address] PCP - General Family Medicine 07/25/18 Christian Soria FNP [address] [place] [address] Nurse Practitioner Family Medicine 06/24/23 documented as of this encounter
--- OUTSIDE RECORDS SUMMARY | 2025-07-02 02:21 | XMS_ITS | Encounter Summary ---
Author Organization [employer] Address 75 [facility] 7t [place] [address] Care Team Providers Care Collections Attorney Name Role Phone Zahraa Roca DO Primary Care Provider [phone] Christian Soria Unavailable Unavailable Reason for Visit * Reason Onset Date Comments Appt question 08/09/2024 Encounter Details Date Type Department Care Team ([facility] st Contact Info) Description 08/09/[address] [facility] MED[facility]INE 230 [place], [place] [phone] Zahraa Roca DO 230 [place], [place] [phone] Appt question Social History Tobacco Use Types [...] aug appt its for that. Any questions [phone] documented in this encounter Plan of Treatment Upcoming Encounters Date Type Department Care Team (Late st Contact Info) Description 07/08/2025 10:30 AM EST Clinical Support [facility] [address] [place] [address], [place] [address] Mere Rios, HENRIK 07/15/2025 8:30 AM EST Clinical Support [facility] [address] [place] [address], [place] [address] Mere Rios, HENRIK 07/22/2025 8:30 AM EST Clinical Support [address] [place] [address] Mere Rios, HENRIK 07/29/2025 8:30 AM EST Clinical Support [address] [place] [address] Mere Rios RN 08/23/2025 9:30 [address] EST Office [address] [facility] 230 [place] [address] Jill Boudreaux MD 230 [place] [address] documented as of this encounter Visit Diagnoses Not on filedocumented in this encounter Additional Health Concerns Assessment Noted Time PHQ-9 Depression Total Score: 0 11/28/19 24 11:23 AM EDT documented as of this encounter Care Teams Collections Attorney Relationship Specialty Start Date End Date Zahraa Roca DO 230 [place] [address] PCP - General Family Medicine 07/25/18 Christian Soria FNP [address] [place] [address] Nurse Practitioner Family Medicine 06/24/23 documented as of this encounter
--- OUTSIDE RECORDS SUMMARY | 2025-07-02 02:21 | XMS_ITS | Encounter Summary ---
Author Organization [employer] Address [address] [place] [address] 7t [place] [address] Care Team Providers Care Sales Representative Education Courses Name Role Phone YudiZahraa barahona Primary Care Provider [phone] Christian Soria Unavailable Unavailable Reason for Visit * Reason Comments Med Refill Encounter Details Date Type Department Care Team (Late st Contact Info) Description 12/31/2022 Refill [facility] MEDICINE [address] [place] [address] Christian Soria FNP Anxiety Social History Tobacco [...] Description 07/08/2025 10:30 AM EST Clinical Support [facility] [address] [place] [address] Mere Rios, HENRIK 07/15/2025 8:30 AM EST Clinical Support [facility] [address] [place] [address] Mere Rios, RN 07/22/2025 8:30 AM EST Clinical Support [facility] [address] [place] [address] Mere Rios, HENRIK 07/29/2025 8:30 AM EST Clinical Support [address] [address] Mere Rios RN 08/23/2025 9:30 AM EST Office Visit [address] [address] Jill Boudreaux MD [address] [place] [address] documented as of this encounter Visit Diagnoses Diagnosis Anxiety Anxiety state, unspecified documented in this encounter Additional Health Concerns Assessment Noted Time PHQ-9 Depression Total Score: 0 08/24/19 23 2:33 PM EST documented as of this encounter Care Teams Sales Representative Education Courses Relationship Specialty Start Date End Date Zahraa Roca DO [address] [place] [address] PCP - General Family Medicine 07/25/18 Christian Soria FNP [address] [place] [address] Nurse Practitioner Family Medicine 06/24/23 documented as of this encounter
--- OUTSIDE RECORDS SUMMARY | 2025-07-02 02:21 | XMS_ITS | Encounter Summary ---
Author Organization [employer] Address [address] [facility] [address] 7t [place] [address] Care Team Providers Care Vice President Commercial Bank Name Role Phone Zahraa Roca DO Primary Care Provider + [phone] Christian Soria Unavailable Unavailable Encounter Details Date Type Department Care Team (Late st Contact Info) Description 10/10/2024 Orders Only [facility] MED[facility]INE 230 [place], [place] [phone] Zahraa Roca DO 230 [place] [address] Social History Tobacco Use Types Packs/Day Years [...] Description 07/08/2025 10:30 AM EST Clinical Support [address] [address] Mere Rios, HENRIK 07/15/2025 8:30 AM EST Clinical Support [address] [address] Mere Rios, HENRIK 07/22/2025 8:30 AM EST Clinical Support [address] [address] Mere Rios, HENRIK 07/29/2025 8:30 AM EST Clinical Support [address] [address] Mere Rios, RN 08/23/2025 9:30 AM EST Office Visit [address] [address] Jill Boudreaux MD [address] [place] [address] documented as of this encounter Visit Diagnoses Not on filedocumented in this encounter Additional Health Concerns Assessment Noted Time PHQ-9 Depression Total Score: 0 11/28/19 24 11:23 AM EDT documented as of this encounter Care Teams Vice President Commercial Bank Relationship Specialty Start Date End Date Zahraa Roca DO 230 [place] [address] PCP - General Family Medicine 07/25/18 Christian Soria FNP 230 [place] [address] Nurse Practitioner Family Medicine 06/24/23 documented as of this encounter
--- OUTSIDE RECORDS SUMMARY | 2025-07-02 02:21 | XMS_ITS | Encounter Summary ---
Author Organization [employer] Address 75 [facility] 7t [place] [address] Care Team Providers Care Steel Grinder Name Role Phone Zahraa Roca DO Primary Care Provider + [phone] Christian Soria Unavailable Unavailable Reason for Visit * Reason Comments Med Refill Encounter Details Date Type Department Care Team ([facility] st Contact Info) Description 05/09/2025 Refill [facility] MED[facility]INE 230 [place], [place] [phone] Zahraa Roca DO 230 [place], [place] [phone] Anxiety Social History Tobacco Use Types Packs/Day [...] Description 07/08/2025 10:30 AM EST Clinical Support [address] [address] Mere Rios, HENRIK 07/15/2025 8:30 AM EST Clinical Support [address] [address] Mere Rios, HENRIK 07/22/2025 8:30 AM EST Clinical Support [address] [address] Mere Rios, HENRIK 07/29/2025 8:30 AM EST Clinical Support [address] [address] Mere Rios, HENRIK 08/23/2025 9:30 AM EST Office Visit [address] [address] Jill Boudreaux MD [address] [place] [address] documented as of this encounter Visit Diagnoses Diagnosis Anxiety Anxiety state, unspecified documented in this encounter Additional Health Concerns Assessment Noted Time PHQ-9 Depression Total Score: 16 025 3:09 PM EDT documented as of this encounter Care Teams Steel Grinder Relationship Specialty Start Date End Date Zahraa Roca DO 230 [place] [address] PCP - General Family Medicine 07/25/18 Christian Soria FNP 230 [place] [address] Nurse Practitioner Family Medicine 06/24/23 documented as of this encounter
--- OUTSIDE RECORDS SUMMARY | 2025-07-02 02:21 | XMS_ITS | Encounter Summary ---
Author Organization [employer] Address [address] [place] [address] 7 [place] [address] Care Team Providers Care Production Inspector Name Role Phone Zahraa Roca DO Primary Care Provider [phone] Christian Soria Unavailable Unavailable Reason for Visit * Reason Onset Date Comments Med Refill 12/31/2022 Encounter Details Date Type Department Care Team (Late st Contact Info) Description 12/31/2022 Telephone [facility] MEDICINE 230 [place], [place] [phone] Zahraa Roca DO 230 [place], [place] [phone] Med Refill Social History Tobacco Use Types [...] 10:30 AM EST Clinical Support [facility] [place] [address] Mere Rios, HENRIK 07/15/2025 8:30 AM EST Clinical Support [facility] [place] [address] Mere Rios, RN 07/22/2025 8:30 AM EST Clinical Support [facility] [place] [address] Mere Rios, HENRIK 07/29/2025 8:30 AM EST Clinical Support [facility] [place] [address] Mere Rios, HENRIK 08/23/2025 9:30 AM EST Office Visit [facility] [place] [address] Jill [place] [address] documented as of this encounter Visit Diagnoses Not on filedocumented in this encounter Additional Health Concerns Assessment Noted Time PHQ-9 Depression Total Score: 0 08/24/19 23 2:33 PM EST documented as of this encounter Care Teams Production Inspector Relationship Specialty Start Date End Date [place] [address] PCP - General Family Medicine 07/25/18 Christian Soria FNP [address] [place] [address] Nurse Practitioner Family Medicine 06/24/23 documented as of this encounter
== END 2025-07-01 17:02 | disposition home or self-care (01) ==
LOC: HO.HHCLNP 17:01
PROVIDERS: Visit Provider Family Medicine
DX: Z79.899 Other long term (current) drug therapy (principal)
CPT/HCPCS: 80346; 80353

== ENCOUNTER 2025-07-10 14:33 | Outpatient (REF) | payer MEDICARE, MEDICAID, SELFPAY ==
--- OUTSIDE RECORDS SUMMARY | 2025-07-01 09:30 | XMS_ITS | Encounter Summary ---
Author Organization [employer] Address [address] 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 The patient last took Clonazepam (Klonopin) on: 07/01/2025 Medication effective: Yes Sleep habits: ok Therapist: Yes OBJECTIVE: COMMUNITY RELATIONS ASSISTANT checked: 07/01/2025 Pill count completed for Clonazepam, count today is 0 , anticipated count should be 0, this is as expected. Last PCP visit: 06/05/2025 SIDDHARTHA-7 Total Score: 11 (05/06/2025 10:13 AM) Controlled substance agreement signed: Controlled Substance Agreement 09/12/2024 STRIP DEBURRER Tier: 1 Current Medications[1] Smoking status: Denies ETOH use: Denies Illicit substances: Denies Marijuana use: Yes, Marijuana card: No , Marijuana Acquired from: Street, dangers of obtaining marijuana from the streets was discussed Lab Results Component Value Date POCTHC Positive (A) 07/01/2025 POCCOCAINEUR Positive (A) 07/01/2025 POCOPIATEUR Negative 07/01/2025 DOAUR Negative 07/01/2025 POCAMPHETAMI Negative 07/01/2025 POCBENZODIUR Negative (A) 07/01/2025 POCBARBSCRN Negative 07/01/2025 POCMETHADOUR Negative 07/01/2025 POCBUPSCRN Negative 07/01/2025 POCTCAUR Positive (A) 07/01/2025 POCMDMAUR Negative 07/01/2025 POCOXYCODONE Negative 07/01/2025 POCPHENCYCUR Negative 07/01/2025 PROPOXUR Negative 07/01/2025 FENTANYLURIN Negative 07/01/2025 Reviewed UTOX pos JYOTI results, Neg BZO. Explained I would sen urine out for confirmation. Pt sharedthat he smoked marijuana with his friend 2 days ago. ASSESSMENT: Encounter Diagnosis Name Primary? Long-term current use of benzodiazepine Yes PLAN: Information on acupuncture given: Previously discussed Narcan education provided: Previously discussed Narcan prescription: patient refused prescription Will send request to PCP for Clonazepam refill and update on UTOX results. Cristobal Enriquez will continue taking medication as prescribed and follow up at the next STRIP DEBURRER visit orsooner if needed. Cristobal Enriquez has verbalized understanding of care plan. Future Appointments Date Time Provider Department Center 07/08/2025 10:30 AM Mere Rios RN [facility] 07/15/2025 8:30 AM Mere Rios RN [facility] 07/15/2025 9:30 AM Mere Rios RN [facility] 07/22/2025 8:30 AM Mere Rios RN [facility] 07/29/2025 8:30 AM Mere Rios RN [facility] 08/23/2025 9:30 AM Jill Boudreaux MD [facility] Mere Rios RN [1] Current Outpatient Medications: clonazePAM (KlonoPIN) 1 MG tablet, Take 1 tablet (1 mg) by mouth 2 times daily. Do not start beforeJune 19, 2025., Disp: 24 tablet, Rfl: 0 amitriptyline (Elavil) 10 MG [...] or irritation., Disp: 28 g, Rfl: 1 hydrOXYzine pamoate (Vistaril) 25 MG capsule, Take 1 capsule (25 mg) by mouth every 6 (six) hours if needed for anxiety., Disp: 30 capsule, Rfl: 1 lidocaine (Lidoderm) 5 % patch, Apply 1 patch topically if needed each day for mild pain. Remove & discard patch within 12 hours or as directed by MD., Disp: 30 patch, Rfl: 1 methadone (Dolophine) 10 MG/5ML solution, [...] Date Type Department Care Team (Late st [facility] Info) Description 07/22/2025 8:30 AM EST Clinical Support [facility] [place] [address] Mere Rios, HENRIK 07/29/2025 8:30 AM EST Clinical Support [facility] [place] [address] Mere Rios, HENRIK 08/05/2025 8:30 AM EST Clinical Support [facility] [address] Mere Rios, HENRIK 08/13/2025 9:00 AM EST Clinical Support [facility] [address] Mere Rios, HENRIK 08/19/2025 8:30 AM EST Clinical Support [facility] [place] [address] Mere Rios, HENRIK 08/23/2025 9:30 AM EST Office Visit [facility] [place] [address] Jill [place] [address] documented as of this encounter Procedures Procedure Name Priority Date/Time Associated Diagnosis Comments POCT MARIO-14 URINE DRUG SCREEN Routine 07/01/2025 9:31 AM EST Long-term current use of benzodiazepine DRUG MONITORING, BENZODIAZEPINES, QUANTITATIVE, URINE Routine 07/01/2025 9:30 AM EST Long-term current use of benzodiazepine DRUG MONITOR, COCAINE METAB, QN, URINE Routine 07/01/2025 9:30 AM EST Long-term current use of benzodiazepine documented in this encounter Results * (ABNORMAL) POCT MARIO-14 Urine Drug Screen (07/01/2025 9:31 AM EST) THC Positive(A) Negative Cocaine Screen, Urine Positive(A) Negative Opiate Screen, Urine Negative Negative Methamphetamine Screen Urine Negative Negative Amphetamine Screen, Urine Negative Negative Benzodiazepines Screen, Urine Negative(A) Negative Comment:STRIP DEBURRER pt on Clonazepam Barbiturate Screen, Urine Negative Negative Methadone Screen, Urine Negative Negative Buprenophine Screen, Urine Negative Negative TCA, Urine Positive(A) Negative MDMA Urine Negative Negative ng/mL Oxycodone Screen, Urine Negative Negative Phencyclidine (PCP), Urine Negative Negative Propoxyphene, Urine Negative Negative Fentanyl, Urine Negative Negative Urine Urine specimen obtained by clean catch procedure / Unknown 07/01/2025 9:31 AM EST Mere Smalls RN - 07/01/2025 9:31 AM EST UTOX cup Lot#[id number] Exp. 06/24/26 Internal Pass Control Zahraa Roca DO POINT OF CARE TEST ENTER/JOANNA T ORDERABLES Final Result * Drug Monitoring, Benzodiazepines, Quantitative, Urine (07/01/2025 9:30 AM EST) Nordiazepam, GCMS Urine NEGATIVE [facility] Comment:CUTOFF 50 NG/ML Oxazepam, GCMS Urine NEGATIVE [facility] Comment:CUTOFF 50 NG/ML Lorazepam GCMS Urine NEGATIVE [facility] Comment:CUTOFF 50 NG/ML Alprazolam, GCMS Urine NEGATIVE [facility] Comment:CUTOFF 25 NG/ML Alphahydroxytriazolam, GCMS Ur NEGATIVE [facility] Comment:CUTOFF 50 NG/ML Temazepam, GCMS Urine NEGATIVE [facility] Comment:CUTOFF 50 NG/ML Alphahydroxymidazolam,GC MS Ur NEGATIVE [facility] Comment:CUTOFF 50 NG/ML Aminoclonazepam, GCMS Urine NEGATIVE [facility] Comment:CUTOFF 25 NG/ML Flurazepam Metabolite,GCMS Ur NEGATIVE [facility] Comment:CUTOFF 50 NG/ML Benzodiazepines Comments SEE NOTE [facility] Comment:NOTES AND COMMENTSTh is drug testing is for medical treatment only. Analysiswas performed as non-forensic testing and these resultsshould be used only by healthcare providers to renderdiagnosis or treatment, or to monitor progress of medicalconditions.LDT Notes:Confirmation tests were developed and their analyticalperformance characteristics have been determined by [employer]. It has not been cleared or approved by the FDA.This assay has been validated pursuant to the CLIAregulations and is used for clinical purposes.Healthcare Providers needing Interpretation assistance,please contact us at [phone] ( ) M-F,8am to 10pm ESTPERFORMING SITE:[facility] [employer] [facility], [address] [place] [phone] Spanish Speaking Nanny: SOCRATES MATHIAS MD, CLIA:[id number] Urine (Urine, Random) 07/01/2025 9:30 AM EST 07/01/2025 5:01 PM EST us Zahraa Roca DO LAB URINE ORDERABLES Final R esult [facility] [address] [place] [phone] * Drug Monitoring, Cocaine Metabolite, Quantitative, Urine (07/01/2025 9:30 AM EST) Benzoylecgonine [address] [facility] Comment:CUTOFF 100 ng/mL Cocaine Comments SEE NOTE [facility] Comment:NOTES AND COMMENTSTh is drug testing is for medical treatment only. Analysiswas performed as non-forensic testing and these resultsshould be used only by healthcare providers to renderdiagnosis or treatment, or to monitor progress of medicalconditions.Cocaine Notes:Benzoylecgonine detected is consistent with the use of thedrug Cocaine.LDT Notes:Confirmation tests were developed and their analyticalperformance characteristics have been determined by [employer]. It has not been cleared or approved by the FDA.This assay has been validated pursuant to the CLIAregulations and is used for clinical purposes.Healthcare Providers needing Interpretation assistance,please contact us at [phone] ( ) M-F,8am to 10pm EST Urine (Urine, Random) 07/01/2025 9:30 AM EST 07/01/2025 5:01 PM EST Zahraa Roca DO LAB URINE ORDERABLES Final R esult [facility] [address] [place] [address] [phone] documented in this encounter Visit Diagnoses Diagnosis Long-term current use of benzodiazepine- Primary documented in this encounter Additional Health Concerns Assessment Noted Time PHQ-9 Depression Total Score: 16 10/16/ 025 3:09 PM EDT documented as of this encounter Care Teams Daycare Teacher Relationship Specialty Start Date End Date Zahara Roca DO [address] [place] [address] PCP - General Family Medicine 07/25/18 Christian Soria FNP [address] [place] [address] Nurse Practitioner Family Medicine 06/24/23 documented as of this encounter
--- OUTSIDE RECORDS SUMMARY | 2025-07-10 09:00 | XMS_ITS | Encounter Summary ---
Author Organization [employer] Address 75 [facility] 7t [place] [address] Care Team Providers Care Corporate Manager Name Role Phone AbelinoZahraa Primary Care Provider + [phone] Christian Soria Unavailable Unavailable Reason for Visit * Reason Comments ACCOUNTS RECEIVABLE EXECUTIVE RV Encounter Details Date Type Department Care Team (Latest Contact Info) Description 07/10/2025 9:00 AM EST Clinical Support [facility] MED[facility]INE 230 [place] [address] Mere Rios RN Long-term current use of [...] Progress Notes * Mere Rios RN - 07/10/2025 9:00 AM EST SUBJECTIVE: Cristobal Enriquez is a 55 y.o. year old male who presents for ACCOUNTS RECEIVABLE EXECUTIVE RV Preferred language for medical information: Welsh Cristobal Enriquez does not report adherence to Clonazepam (Klonopin) 1 mg, take 1 tablet every 12 hours PRN, last refilled 07/01/2025. Pt stated he uses 2.5 doses a day. Reviewed his Clonazepam order. Pt stated he usually runs out of his Clonazepam 3 days before its due for refill. The patient last took Clonazepam (Klonopin) on: 07/07/25 Medication effective: Yes Sleep habits: ok Therapist: Yes OBJECTIVE: ASSOCIATE PROFESSOR OF THEOLOGY checked: 07/10/2025 Pill count completed for Clonazepam (Klonopin), count today is 0 , anticipated count should be 0, this is as expected. Last PCP visit: 06/05/2025 SIDDHARTHA-7 Total Score: 11 (05/06/2025 10:13 AM) Controlled substance agreement signed: Controlled Substance Agreement 09/12/2024 ACCOUNTS RECEIVABLE EXECUTIVE Tier: 1, weekly visits Current Medications[1] Smoking status: Denies ETOH use: Denies Illicit substances: Denies Marijuana use: Yes, Marijuana card: No , Marijuana Acquired from: Street, dangers of obtaining marijuana from the streets was discussed. Pt smokes with his 'friend' 3 days ago. Lab Results Component Value Date POCTHC Positive (A) 07/10/2025 POCCOCAINEUR Positive (A) 07/10/2025 POCOPIATEUR Negative 07/10/2025 DOAUR Negative 07/10/2025 POCAMPHETAMI Negative 07/10/2025 POCBENZODIUR Negative 07/10/2025 POCBARBSCRN Negative 07/10/2025 POCMETHADOUR Positive (A) 07/10/2025 POCBUPSCRN Negative 07/10/2025 POCTCAUR Negative 07/10/2025 POCMDMAUR Negative 07/10/2025 POCOXYCODONE Negative 07/10/2025 POCPHENCYCUR Negative 07/10/2025 PROPOXUR Negative 07/10/2025 FENTANYLURIN Negative 07/10/2025 Reviewed his UTOX results. Advised I would send urine out for BZO confirmation and JYOTI. Pt stated he's going to start seeing his counselor in person now. ASSESSMENT: Encounter Diagnosis Name Primary? Long-term current use of benzodiazepine Yes PLAN: PCP spoke with patient briefly at ACCOUNTS RECEIVABLE EXECUTIVE patient. 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 Information on acupuncture given: Previously discussed Narcan education provided: Previously discussed Narcan prescription: active Will send request for Clonazepam refill to PCP and update on todays UTOX results. Cristobal Enriquez will continue taking medication as prescribed and follow up at the [facility] orsooner if needed. Cristobal Enriquez has verbalized understanding of care plan. Future Appointments Date Time Provider Department Center 07/22/2025 8:30 AM Mere Rios RN [facility] 07/29/2025 8:30 AM Mere Rios RN [facility] 08/05/2025 8:30 AM Mere Rios RN [facility] 08/13/2025 9:00 AM Mere Rios RN [facility] 08/19/2025 8:30 AM Mere Rios RN [facility] 08/23/2025 9:30 AM Jill Boudreaux MD [facility] Mere Rios RN [1] Current Outpatient Medications: clonazePAM (KlonoPIN) 1 MG tablet, Take 1 tablet (1 mg) by mouth 2 times daily., Disp: 16 tablet, Rfl: 0 amitriptyline (Elavil) 10 MG [...] Care Team (Late st Contact Info) Description 07/22/2025 8:30 AM EST Clinical Support [address] [address] Mere Rios, HENRIK 07/29/2025 8:30 AM EST Clinical Support [address] [address] Mere Rios, HENRIK 08/05/2025 8:30 AM EST Clinical Support [address] [address] Mere Rios, HENRIK 08/13/2025 9:00 AM EST Clinical Support [address] [address] Mere Rios, HENRIK 08/19/2025 8:30 AM EST Clinical Support [address] [address] Mere Rios, HENRIK 08/23/2025 9:30 AM EST Office Visit [address] [address] Jill Boudreaux MD [address] [place] [address] Scheduled Orders Name Type Priority Associated Diagnoses Orde r Schedule Drug Monitoring, Benzodiazepines, Quantitative, Urine Lab Routine Long-term current use of benzodiazepine Ordered: 07/10/2025 Drug Monitoring, Cocaine Metabolite, Quantitative, Urine Lab Routine Long-term current use of benzodiazepine Ordered: 07/10/2025 documented as of this encounter Procedures Procedure Name Priority Date/Time Associated Diagnosis Comments POCT MARIO-14 URINE DRUG SCREEN Routine 07/10/2025 9:42 AM EST Long-term current use of benzodiazepine documented in this encounter Results * (ABNORMAL) POCT MARIO-14 Urine Drug Screen (07/10/2025 9:42 AM EST) [facility] THC Positive(A) Negative Cocaine Screen, Urine Positive(A) Negative Opiate Screen, Urine Negative Negative Methamphetamine Screen Urine Negative Negative Amphetamine Screen, Urine Negative Negative Benzodiazepines Screen, Urine Negative Negative Comment:ACCOUNTS RECEIVABLE EXECUTIVE pt on Clonazepam Barbiturate Screen, Urine Negative Negative Methadone Screen, Urine Positive(A) Negative Buprenophine Screen, Urine Negative Negative TCA, Urine Negative Negative MDMA Urine Negative Negative ng/mL Oxycodone Screen, Urine Negative Negative Phencyclidine (PCP), Urine Negative Negative Propoxyphene, Urine Negative Negative Fentanyl, Urine Negative Negative Urine Urine specimen obtained by clean catch procedure / Unknown 07/10/2025 9:42 AM EST Mere Smalls RN - 07/10/2025 9:42 AM EST UTOX cup Lot#[id number] Exp. 06/24/26 Internal Pass Control Zahraa Roca DO POINT OF CARE TEST ENTER/JOANNA T ORDERABLES Final Result documented in this encounter Visit Diagnoses Diagnosis Long-term current use of benzodiazepine- Primary documented in this encounter Additional Health Concerns Assessment Noted Time PHQ-9 Depression Total Score: 16 10/16/ 025 3:09 PM EDT documented as of this encounter Care Teams Corporate Manager Relationship Specialty Start Date End Date Zahraa Roca DO 230 [place] [address] PCP - General Family Medicine 07/25/18 Christian Soria FNP [address] [place] [address] Nurse Practitioner Family Medicine 06/24/23 documented as of this encounter
--- OUTSIDE RECORDS SUMMARY | 2025-07-10 19:30 | XMS_ITS | Encounter Summary ---
Author Organization [employer] Address 75 [facility] 7 [place] [address] Care Team Providers Care Project Asst Name Role Phone Zahraa Roca DO Primary Care Provider [phone] Christian Soria Unavailable Unavailable Reason for Visit * Reason Onset Date Comments Referral 04/08/2025 Encounter Details Date Type Department Care Team ([facility] st Contact Info) Description 04/08/2025 Telephone [facility] [address] [place], [place] [phone] Zahraa Roca DO [address] [place], [place] [phone] Referral Social History Tobacco Use Types Packs/Day [...] the pt at home. Contact pt at [phone] Pt is requesting to speak with a nurse regarding referral. documented in this encounter Plan of Treatment Upcoming Encounters Date Type Department Care Team (Late st Contact Info) Description 07/22/2025 8:30 AM EST Clinical Support [facility] [address] [place] [address] Mere Rios, HENRIK 07/29/2025 8:30 AM EST Clinical Support [facility] [address] [place] [phone] Mere Rios, HENRIK 08/05/2025 8:30 AM EST Clinical Support [address] [address] Mere Rios, RN 08/13/2025 9:00 AM EST Clinical Support [address] [address] Mere Rios, RN 08/19/2025 8:30 AM EST Clinical Support [address] [address] Mere Rios RN 08/23/2025 9:30 AM EST Office Visit [facility] [address] [place] [address] Jill Boudreaux MD [address] [place] [address] documented as of this encounter Visit Diagnoses Not on filedocumented in this encounter Additional Health Concerns Assessment Noted Time PHQ-9 Depression Total Score: 16 10/16/ 025 3:09 PM EDT documented as of this encounter Care Teams Project Asst Relationship Specialty Start Date End Date Zahraa Roca DO [address] [place] [phone] PCP - General Family Medicine 07/25/18 Christian Soria FNP [address] [place] [address] Nurse Practitioner Family Medicine 06/24/23 documented as of this encounter
--- OUTSIDE RECORDS SUMMARY | 2025-07-10 19:30 | XMS_ITS | Clinical Summary ---
Author Organization [employer] Address 75 [facility] 7t [place] [address] Care Team Providers Care Hog Cutter Name Role Phone AbelinoZahraa Primary Care Provider [phone] Christian Soria Unavailable Unavailable Allergies No known [...] mouth 2 times daily. 28 tablet 5 4:11 PM EST 07/10/20 25 025 Active clonazePAM (KlonoPIN) 1 MG [...] 24 tablet 5 10:57 AM EST 06/19/20 025 Discontinued(Re order (will not trigger notification to Pharmacy)) clonazePAM (KlonoPIN) 1 MG tabletIndicat ions:Anxiety Take 1 tablet (1 mg) by mouth 2 times daily. 16 tablet 12:37 PM EST 07/01/20 025 Discontinued(Re order (will not trigger notification [...] issues or concerns, he should contact [facility]. All his questions were answered. [...] Encounters Date Type Department Care Team Description 07/10/2025 9:00 AM EST Clinical Support [facility] [place] [address] Mere Rios, HENRIK Long-term current use of benzodiazepine (Primary Dx) 07/10/2025 Refill [facility] [place] [address] Zahraa Roca DO Anxiety 07/10/2025 Refill [facility] [place] [address] Mere Rios RN Anxiety 07/10/2025 Travel 07/08/2025 Telephone [facility] [place] [address] Zahraa Roca, Appointment Request 07/01/2025 9:30 AM EST Clinical Support [facility] [place] [address] Mere Rios, RN Long-term current use of benzodiazepine (Primary Dx) 07/01/2025 Refill [facility] [place] [address] Zahraa Roca DO Anxiety 07/01/2025 Refill [facility] [place] [address] Mere Rios, HENRIK Anxiety 07/01/2025 Travel 06/17/2025 8:30 AM EST Clinical Support [facility] [place] [address] Mere Rios, HENRIK Long-term current use of benzodiazepine (Primary Dx) 06/17/2025 Refill [facility] [place] [address] Mere Rios, HENRIK Anxiety 06/17/2025 Travel 06/17/2025 Refill [facility] [place] [place] [address] Zahraa Roca DO Anxiety 06/14/2025 Telephone [facility] [place] [address] Zahraa Roca DO Prior Authorization (PA: Lidocaine 5% Patch) 06/05/2025 9:30 AM EST Office Visit [facility] [place] [address] Zahraa Roca DO Closed fracture of one rib of left side, initial encounter (Primary Dx); Anxiety 06/05/2025 9:30 AM EST Clinical Support [facility] [place] [place] [address] Mere Rios, HENRIK Long-term current use of benzodiazepine (Primary Dx) 06/05/2025 Travel 06/03/2025 Telephone [facility] [place] [address] Mere Rios RN 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; 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; Pt cancelled MACHINE [employer] OUT WORK[employer] RV same day 05/31/2025 Telephone [facility] [place] [address] Zahraa Roca DO 05/29/2025 Orders Only [facility] External Provider, [facility] 05/22/2025 Telephone [facility] [place] [address] Zahraa Roca DO Med Refill 05/20/2025 11:00 AM EDT Clinical Support [facility] [place] [address] Mere Rios, RN Long-term current use of benzodiazepine (Primary Dx) 05/20/2025 Telephone [facility] [place] [address] Mere Rios, RN Clonazepam count 05/20/2025 Telephone [facility] MEDICINE [address] [place] [address] Mere Rios, HENRIK Random MACHINE L[employer] OUT WORKER RV today; UTOX Pos JYOTI, FENT, Neg BZO; UTOX Confirmation 05/20/2025 Travel 05/20/2025 Telephone [facility] MEDICINE [address] [place] [address] Zahraa Roca DO Appointment Request 05/14/2025 Outside Procedure [facility] OPTOMETRY [address] [place] [address] Gama, Aniyah, OD Presbyopia (Primary Dx) 05/09/2025 Refill [facility] MEDICINE [address] [place] [address] Zahraa Roca DO Anxiety 05/09/[address] [address] Zahraa Roca DO Anxiety 05/06/2025 1:00 PM EDT Office Visit [facility] OPTOMETRY [address] [place] [address] Gama, Aniyah, OD Hyperopia of both eyes (Primary Dx) 05/06/2025 9:30 AM EDT Clinical Support [address] [address] Mere Rios, HENRIK Long-term current use of benzodiazepine (Primary Dx) 05/06/2025 Telephone [facility] MEDICINE [address] [place] [address] Mere Rios, RN SIDDHARTHA scoring; UTOX Pos JYOTI 05/06/2025 Travel 05/03/2025 Telephone [facility] MEDICINE [address] [place] [address] Zahraa Roca DO Nurse Triage 05/03/2025 Refill [facility] MEDICINE [address] [place] [address] Zahraa Roca DO Anxiety 04/29/2025 Telephone [facility] MEDICINE [address] [place] [address] Mere Rios, HENRIK 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 04/18/2025 Refill [facility] MEDICINE [address] [place] [address] Zahraa Roca, DO Anxiety from Last 3 Months Immunizations Immunization [...] Description 07/22/2025 8:30 AM EST Clinical Support [address] [address] Mere Rios, HENRIK 07/29/2025 8:30 AM EST Clinical Support [address] [address] Mere Rios, RN 08/05/2025 8:30 AM EST Clinical Support [address] [address] Mere Rios, RN 08/13/2025 9:00 AM EST Clinical Support [address] [address] Mere Rios, RN 08/19/2025 8:30 AM EST Clinical Support [address] [address] Mere Rios, RN 08/23/2025 9:30 AM EST Office Visit [address] [address] Jill Boudreaux MD [address] [place] [address] Health Maintenance Due Date Last Done Comments [...] benzodiazepine POCT MARIO-14 URINE DRUG SCREEN Routine 07/01/2025 [...] Urine Drug Screen (07/10/2025 9:42 AM EST) Only the most recent of6 resultswithin the time period is included. 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 06/24/26 Internal Pass Control Zahraa Roca DO POINT OF CARE TEST ENTER/JOANNA T ORDERABLES Final Result * Drug Monitoring, Benzodiazepines, Quantitative, Urine (07/01/2025 9:30 AM EST) Only the most recent of2 resultswithin the time period is included. Nordiazepam, GCMS Urine NEGATIVE [facility] Comment:CUTOFF 50 NG/ML Oxazepam, GCMS Urine NEGATIVE [facility] Comment:CUTOFF 50 NG/ML Lorazepam GCMS Urine NEGATIVE [facility] Comment:CUTOFF 50 NG/ML Alprazolam, GCMS Urine NEGATIVE [facility] Comment:CUTOFF 25 NG/ML Alphahydroxytriazolam, GCMS Ur NEGATIVE [facility] Comment:CUTOFF 50 NG/ML Temazepam, GCMS Urine NEGATIVE [facility] Comment:CUTOFF 50 NG/ML Alphahydroxymidazolam,GC MS Ur NEGATIVE [facility] Comment:CUTOFF 50 NG/ML Aminoclonazepam, GCMS Urine NEGATIVE [facility] Comment:CUTOFF 25 NG/ML Flurazepam Metabolite,GCMS Ur NEGATIVE [facility] Comment:CUTOFF 50 NG/ML Benzodiazepines Comments SEE NOTE [facility] Comment:NOTES AND COMMENTSTh is drug testing is for medical treatment only. Analysiswas performed as non-forensic testing and these resultsshould be used only by healthcare providers to renderdiagnosis or treatment, or to monitor progress of medicalconditions.LDT Notes:Confirmation tests were developed and their analyticalperformance characteristics have been determined by [employer]. It has not been cleared or approved by the FDA.This assay has been validated pursuant to the CLIAregulations and is used for clinical purposes.Healthcare Providers needing Interpretation assistance,please contact us at [phone] ( ) M-F,8am to 10pm ESTPERFORMING SITE:[facility] [employer] [facility], [address] [place] [phone] Water Pump Installer: SOCRATES MATHIAS MD, CLIA:[id number] Urine (Urine, Random) 07/01/2025 9:30 AM EST 07/01/2025 5:01 PM EST us Zahraa Roca DO LAB URINE ORDERABLES Final R esult [facility] [address] [place] [address] [phone] * Drug Monitoring, Cocaine Metabolite, Quantitative, Urine (07/01/2025 9:30 AM EST) Only the most recent of3 resultswithin the time period is included. Benzoylecgonine [address] [facility] Comment:CUTOFF 100 ng/mL Cocaine Comments SEE NOTE [facility] [...] their analyticalperformance characteristics have been determined by [employer]. It has not been cleared or approved by the FDA.This assay has been validated pursuant to the CLIAregulations and is used for clinical purposes.Healthcare Providers needing Interpretation assistance,please contact us at [phone] ( ) M-F,8am to 10pm EST Urine (Urine, Random) 07/01/2025 9:30 AM EST 07/01/2025 5:01 PM EST us Zahraa Roca DO LAB URINE ORDERABLES Final R esult Performing Organization Address City/State/[facility] Co de Phone Number [facility] [address] [place] [address] [phone] * VASC US Lower Extremity Venous Insufficiency Bilateral (06/06/2025 11:00 AM EST) 06/06/2025 11:0 0 AM EST Narrative [facility] - 06/06/2025 12:28 PM EST [place] [address] Ultrasound Report Signed Patient: Cristobal Enriquez MR#: [id number] [birth year] : 1970 Acct:[id number] Age/Sex: 55 / M ADM Date: 06/06/25 Loc: . Attending Dr: Everton Lawton MD Ordering Physician: Everton Lawton MD Date of Service: 06/06/25 Procedure(s): US venous insuf bilat Accession Number(s): [id number] cc: Zahraa Roca DO; Everton Lawton MD [...] by: Nancie Neil MD 06/06/2025 12:26 PM [facility] Dictated By: Nancie Neil MD Signed By: <Electronically signed by Nancie Neil MD in OV> 06/06/25 1226 DD/ 1100 TD/TT: 06/06/25 1135 Ribbon Inker: BERNABE Procedure Note Donotuseinterpreter, Image - 06/06/[address] [address] Ultrasound Report Signed Patient: Cristobal Enriquez JMR#: [id number] 54 : 1970Acct:[id number] Age/Sex: 55 / MADM Date: 06/06/25 Loc: HO.US Attending Dr: Everton Lawton MD Ordering Physician: Everton Lawton MD Date of Service: 06/06/25 Procedure(s): US venous insuf bilat Accession Number(s): [id number] cc: Zahraa Roca DO; Everton Lawton MD [...] 06/06/25 1226 DD/ 1100 TD/TT: 06/06/25 1135 Ribbon Inker: BERNABE [facility] External Provider CV VASC ULAR PROCEDURES Final Result Performing Organization Address City/State/[facility] Co de Phone Number [facility] [address] [place] [address] * XR Ribs 3 Views Left w/ Chest (05/29/2025 11:52 AM EST) Anatomical Region Laterality Modality Radiographic Nara ging 05/29/2025 11:5 2 AM EST Narrative 05/29/2025 11:58 AM EST [address] [address] XRay Report Signed Patient: Cristobal Enriquez MR#: [id number] 54 : 1970 Acct:[id number] Age/Sex: 55 / M ADM Date: 05/29/25 Loc: ABUNDIO.ED Attending Dr: Ordering Physician: Lynnette Rosado DO Date of Service: 05/29/25 Procedure(s): XR ribs LT min 3V w CXR1V Accession Number(s): [id number] cc: Lynnette Rosado DO; Zahraa Roca DO [...] 05/29/25 1155 DD/ 1152 TD/TT: 05/29/25 1150 Ribbon Inker: Procedure Note Donotuseinterpreter, Image - 05/29/[address] [address] XRay Report Signed Patient: Cristobal Enriquez JMR#: [id number] 54 : 1970Acct:[id number] Age/Sex: 55 / MADM Date: 05/29/25 Loc: .ED Attending Dr: Ordering Physician: Lynnette Rosado DO Date of Service: 05/29/25 Procedure(s): XR ribs LT min 3V w CXR1V Accession Number(s): [id number] cc: Lynnette Rosado DO; Zahraa Roca DO [...] 05/29/25 1155 DD/ 1152 TD/TT: 05/29/25 1150 Ribbon Inker: [facility] External Provider IMG XR PROCEDURES Final Result * Drug Monitoring, Fentanyl, with Confirmation, Urine (05/20/2025 12:30 PM EDT) Fentanyl, Ur NEGATIVE [facility] Comment:CUTOFF 0.5 NG/ML Norfentanyl, Ur NEGATIVE [facility] Comment:CUTOFF 0.5 NG/ML Fentanyl Note SEE NOTE [facility] Comment: NOTES AND COMMENTSThis drug testing is for medical treatment only. Analysiswas performed as non-forensic testing and these resultsshould be used only by healthcare providers to renderdiagnosis or treatment, or to monitor progress of medicalconditions. LDT Notes: Confirmation tests were developed andtheir analytical performance characteristics have beendetermined by [employer]. It has not been cleared orapproved by the FDA. This assay has been validated pursuantto the CLIA regulations and is used for clinical purposes.Healthcare Providers needing Interpretation assistance,please contact us at [phone] ( ) M-F,8am to 10pm ESTThis drug testing is for medical treatment only. Analysiswas performed as non-forensic testing and these resultsshould be used only by healthcare providers to renderdiagnosis or treatment, or to monitor progress of medicalconditions.PERFORMING SITE:[facility] [employer] [phone] LaboratoryDirector: FER ARREAGA MD, CLIA: [id number] Urine (Urine, Random) 05/20/2025 12:30 PM EDT 05/20/2025 4:29 PM EDT Zahraa Roca DO LAB URINE ORDERABLES Final R esult Performing Organization Address [facility] Co de Phone Number [facility] [address] [place] [phone] * (ABNORMAL) Drug Monitoring, Methadone Metabolite, Screen, Urine (05/20/2025 12:30 PM EDT) Methadone Screen, Urine Positive( A) Not Detect ng/mL [facility] Comment:Methadone cut-off is 300 ng/mL.Positive results are unconfirmed and should not be used fornon-medical purposes. Urine (Urine, Random) 05/20/2025 12:30 PM EDT 05/20/2025 4:29 PM EDT Zahraa Roca ISH LAB URINE ORDERABLES Final R [facility] Performing Organization Address [facility] de Phone Number [facility] [address] [place] [phone] * HIV-1/2 Antigen and Antibodies, Fourth Generation, with Reflexes (03/13/2025 10:55 AM EDT) Pathologist [facility] HIV AB/AG Nonreactive Nonreactive [facility] Comment:HIV-1 p24 Ag and/or HIV-1/HIV-2 Ab not detected.A test result that is nonreactive does not exclude thepossibility of exposure to or infection with HIV-1 and/orHIV-2. Nonreactive results in this assay for individualswith prior exposure to HIV-1 and/or HIV-2 may be due toantigen and antibody levels that are below the limit ofdetection of this assay.The [employer] HIV Ag/Ab Combo assay result andsupplemental assay results should be interpreted inconjunction with the patient's clinical presentation,history and other laboratory results. If the results areinconsistent with clinical evidence, additional testing issuggested to confirm the result. Blood Venous blood specimen / Unknown 03/13/2025 10:55 AM EDT 03/13/2025 12:24 PM EDT Zahraa Roca DO LAB BLOOD ORDERABLES Final R esult Performing Organization Address [facility] Co de Phone Number [facility] [address] [place] [phone] [phone] * Lipid Panel, Standard (03/13/2025 10:55 AM EDT) Triglycerides 68 <150 mg/dL [facility] Comment:Desirable Triglyceri de: less than 150 mg/dLBorderline High Triglyceride 150-199 mg/dLHigh Triglyceride: 200-499 mg/dLVery High Triglyceride: greater than or equal to 5OO mg/dL Cholesterol 150 <200 mg/dL [facility] Comment:Desirable Cholestero l: less than 200 mg/dLBorderline High Cholesterol: 200-239 mg/dLHigh Cholesterol: greater than 239 mg/dL LDL Cholesterol Calculated 89 <100 mg/dL [facility] Comment:Desirable LDL: less than 100 mg/dLNear Optimal/Above Optimal LDL: 110- 129 mg/dLBorderline High LDL: 130-159 mg/dLHigh LDL: 160-189 mg/dLVery High LDL: greater than or equal to 190 mg/dL HDL Cholesterol 48 >40 mg/dL [facility] Comment:Desirable HDL: great er than 40 mg/dL Note: This HDL assay may give artificially low results in patients with liver disease. Blood Venous blood specimen / Unknown 03/13/2025 10:55 AM EDT 03/13/2025 12:29 PM EDT Zahraa Roca DO LAB BLOOD ORDERABLES Final R esult Performing Organization Address City/[facility]/ZIP Co de Phone Number [facility] [address] [place] [address] [phone] * Hm Colonoscopy (03/16/2023 9:43 AM EDT) Historical Provider HEALTH MAINTENANCE Final Result * Fecal Globin by Immunochemistry (07/13/2022 12:00 AM EST) Fecal Globin By Immunochemistry SEE NOTE [facility] [place] [facility] Comment: FECAL GLOBIN BY IMMUNOCHEMISTRY Micro Number: [id number] Test Status: Final Specimen Source: Insure (tm) fobt test card Specimen Quality: Adequate Fecal Globin: Not Detected 07/13/2022 07/28/2022 8:2 7 AM EST Zahraa Roca DO LAB BODY FLUIDS AND STOOLS O RDERABLES Final Result [facility] [address], [place] [address] [employer] [place] [facility] [address] [facility], ([address]) [place] [address] from Last 3 Months or Most Recently Relevant to Health Maintenance Insurance [facility] MEDICARE DENTAL[facility] MED[facility] STAND ADULT Care Teams Hog Cutter Relationship Specialty Start Date End Date Zahraa Roca DO [address] [place] [address] PCP - General Family Medicine 07/25/18 Christian Soria FNP [address] [place], [place] Nurse Practitioner Family Medicine 06/24/23
--- OUTSIDE RECORDS SUMMARY | 2025-07-10 19:30 | XMS_ITS | Encounter Summary ---
Author Organization [employer] Address [address] [facility] 7 [place] [address] Care Team Providers Care Transfer Specialist Name Role Phone Zahraa Roca DO Primary Care Provider [phone] Christian Soria Unavailable Unavailable Reason for Visit * Reason Onset Date Comments PT-1 04/17/2024 Encounter Details Date Type Department Care Team ([facility] st Contact Info) Description 04/17/2024 Telephone [facility] MEDICINE [address] [place], [place] [phone] Zahraa Roca DO [address] [place], [place] [phone] PT-1 Social History Tobacco Use Types Packs/Day [...] facility name: [facility] Facility Address: [address] [place] [address] Escort needed: Y/N: No Do you have a wheelchair: Y/N: No If yes- Manual or electric: N/A Visits: Twice a month documented in this encounter Plan of Treatment Upcoming Encounters Date Type Department Care Team (Late st Contact Info) Description 07/22/2025 8:30 AM EST Clinical Support [address] [address] Mere Rios, RN 07/29/2025 8:30 AM EST Clinical Support [address] [address] Mere Rios, RN 08/05/2025 8:30 AM EST Clinical Support [address] [address] Mere Rios, RN 08/13/2025 9:00 AM EST Clinical Support [facility] [place] [address] Mere Rios, RN 08/19/2025 8:30 AM EST Clinical Support [facility] [place] [address] Mere Rios, RN 08/23/2025 9:30 AM EST Office Visit [address] [address] Jill [place] [address] documented as of this encounter Visit Diagnoses Not on filedocumented in this encounter Additional Health Concerns Assessment Noted Time PHQ-9 Depression Total Score: 0 11/28/19 24 11:23 AM EDT documented as of this encounter Care Teams Transfer Specialist Relationship Specialty Start Date End Date Z[place] [address] PCP - General Family Medicine 07/25/18 Christian Soria FNP [address] [place] [phone] Nurse Practitioner Family Medicine 06/24/23 documented as of this encounter
--- OUTSIDE RECORDS SUMMARY | 2025-07-10 19:30 | XMS_ITS | Encounter Summary ---
Author Organization [employer] Address 75 [facility] 7 [place] [address] Care Team Providers Care Separating Machine Operator Name Role Phone Zahraa Roca DO Primary Care Provider [phone] Christian Soria Unavailable Unavailable Reason for Visit * Reason Onset Date Comments PT1 01/03/2024 Encounter Details Date Type Department Care Team ([facility] st Contact Info) Description 01/03/2024 Telephone [facility] 230 [place], [place] [phone] Zahraa Roca DO 230 [place], [place] [phone] PT1 Social History Tobacco Use Types Packs/Day [...] or facility name: [facility] clinic Facility Address: [address] [place] [address] Escort needed: Y/N: No Do you have a wheelchair: Y/N: No If yes- Manual or electric: none Visits: 7 days a week documented in this encounter Plan of Treatment Upcoming Encounters Date Type Department Care Team ([facility] Contact Info) Description 07/22/2025 8:30 AM EST Clinical Support [address] [address] Mere Rios, RN 07/29/2025 8:30 AM EST Clinical Support [address] [address] Mere Rios, RN 08/05/2025 8:30 AM EST Clinical Support [address] [address] Mere Rios, RN 08/13/2025 9:00 AM EST Clinical Support [address] [address] Mere Rios, RN 08/19/2025 8:30 AM EST Clinical Support [address] [address] Mere Rios RN 08/23/2025 9:30 AM EST Office Visit [facility] 230 [place] [address] Jill Boudreaux MD 230 [place] [address] documented as of this encounter Visit Diagnoses Not on filedocumented in this encounter Additional Health Concerns Assessment Noted Time PHQ-9 Depression Total Score: 0 11/28/19 24 11:23 AM EDT documented as of this encounter Care Teams Separating Machine Operator Relationship Specialty Start Date End Date Zahraa Roca DO [address] [place] [address] PCP - General Family Medicine 07/25/18 Christian Soria FNP [address] [place] [address] Nurse Practitioner Family Medicine 06/24/23 documented as of this encounter
--- OUTSIDE RECORDS SUMMARY | 2025-07-10 19:30 | XMS_ITS | Encounter Summary ---
Author Organization [employer] Address 75 [facility] 7 [place] [address] Care Team Providers Care Printing Engineer Name Role Phone Zahraa Roca DO Primary Care Provider [phone] Christian Soria Unavailable Unavailable Reason for Visit * Reason Onset Date Comments PT-1 03/15/2024 Encounter Details Date Type Department Care Team ([facility] st Contact Info) Description 03/15/2024 Telephone [facility] MED[facility] 230 [place], [place] [phone] Zahraa Roca DO 230 [place], [place] [phone] PT-1 Social History Tobacco Use Types Packs/Day [...] Y/N: Yes Provider name or facility name: [facility] Facility Address: [address] [place] [address] Escort needed: Y/N: No Do you have a wheelchair: Y/N: No If yes- Manual or electric: no Visits: 3 documented in this encounter Plan of Treatment Upcoming Encounters Date Type Department Care Team (Late st Contact Info) Description 07/22/2025 8:30 AM EST Clinical Support [facility] [address] [place] [address] Mere Rios, HENRIK 07/29/2025 8:30 AM EST Clinical Support [facility] [address] [place] [address] Mere Rios, RN 08/05/2025 8:30 AM EST Clinical Support [facility] [address] [place] [address] Mere Rios, RN 08/13/2025 9:00 AM EST Clinical Support [facility] [address] [place] [address] Mere Rios, RN 08/19/2025 8:30 AM EST Clinical Support [address] [address] Mere Rios RN 08/23/2025 9:30 AM EST Office Visit [address] [address] Jill Boudreaux MD [address] [place] [address] documented as of this encounter Visit Diagnoses Not on filedocumented in this encounter Additional Health Concerns Assessment Noted Time PHQ-9 Depression Total Score: 0 11/28/19 24 11:23 AM EDT documented as of this encounter Care Teams Printing Engineer Relationship Specialty Start Date End Date Zahraa Roca DO [address] [place] [address] PCP - General Family Medicine 07/25/18 Christian Soria FNP [address] [place] [address] Nurse Practitioner Family Medicine 06/24/23 documented as of this encounter
--- OUTSIDE RECORDS SUMMARY | 2025-07-10 19:30 | XMS_ITS | Encounter Summary ---
Author Organization [employer] Address 75 [facility] 7 [place] [address] Care Team Providers Care Divine Healer Name Role Phone Zahraa Roca DO Primary Care Provider [phone] Christian Soria Unavailable Unavailable Reason for Visit * Reason Onset Date Comments Appointment Request 06/19/2024 Encounter Details Date Type Department Care Team ([facility] st Contact Info) Description 06/19/2024 Telephone [facility] MEDICINE 230 [place], [place] [phone] Zahraa Roca DO 230 [place], [place] [phone] Appointment Request Social History Tobacco Use Types [...] Description 07/22/2025 8:30 AM EST Clinical Support [facility] MEDICINE [address] [place] [address], [place] [address] Mere Rios, RN 07/29/2025 8:30 AM EST Clinical Support [facility] MED[facility]INE [address] [place] [address], [place] [address] Mere Rios, RN 08/05/2025 8:30 AM EST Clinical Support [facility]INE [address] [place] [address], [place] [address] Mere Rios, RN 08/13/2025 9:00 AM EST Clinical Support [address] [place] [address] Mere Rios, RN 08/19/2025 8:30 AM EST Clinical Support [address] [place] [address] Mere Rios RN 08/23/2025 9:30 AM EST Office Visit [facility] MED[facility]INE 230 [place] [address] Jill Boudreaux MD 230 [place] [address] documented as of this encounter Visit Diagnoses Not on filedocumented in this encounter Additional Health Concerns Assessment Noted Time PHQ-9 Depression Total Score: 0 11/28/19 24 11:23 AM EDT documented as of this encounter Care Teams Divine Healer Relationship Specialty Start Date End Date Zahraa Roca DO [address] [place] [address] PCP - General Family Medicine 07/25/18 Christian Soria FNP [address] [place] [address] Nurse Practitioner Family Medicine 06/24/23 documented as of this encounter
--- OUTSIDE RECORDS SUMMARY | 2025-07-10 19:30 | XMS_ITS | Encounter Summary ---
Author Organization [employer] Address [address] [facility] [address] 7t [place] [address] Care Team Providers Care Etch Operator Semiconductor Wafers Name Role Phone Abelino Zahraa Primary Care Provider + [phone] Christian Soria Unavailable Unavailable Encounter Details Date Type Department Care Team (Late st Contact Info) Description 04/17/2024 Telephone [facility] 230 [place] [address] Lore Vargas DDS Social History Tobacco Use [...] Description 07/22/2025 8:30 AM EST Clinical Support [address] [address] Mere Rios, RN 07/29/2025 8:30 AM EST Clinical Support [address] [address] Mere Rios, RN 08/05/2025 8:30 AM EST Clinical Support [facility] MEDICINE [address] [place] [address] Mere Rios, RN 08/13/2025 9:00 AM EST Clinical Support [address] [address] Mere Rios, RN 08/19/2025 8:30 AM EST Clinical Support [address] [address] Mere Rios, RN 08/23/2025 9:30 AM EST Office Visit [address] [address] Jill Boudreaux MD 230 [place] [address] documented as of this encounter Visit Diagnoses Not on filedocumented in this encounter Additional Health Concerns Assessment Noted Time PHQ-9 Depression Total Score: 0 11/28/19 24 11:23 AM EDT documented as of this encounter Care Teams Etch Operator Semiconductor Wafers Relationship Specialty Start Date End Date Zahraa Roca DO 230 [place] [address] PCP - General Family Medicine 07/25/18 Christian Soria FNP [address] [place] [address] Nurse Practitioner Family Medicine 06/24/23 documented as of this encounter
--- OUTSIDE RECORDS SUMMARY | 2025-07-10 19:30 | XMS_ITS | Encounter Summary ---
Author Organization [employer] Address 75 [facility] 7 [place] [address] Care Team Providers Care Ophthalmic Technician Name Role Phone Zahraa Roca DO Primary Care Provider [phone] Christian Soria Unavailable Unavailable Reason for Visit * Reason Onset Date Comments Nurse Triage 05/03/2025 Encounter Details Date Type Department Care Team ([facility] st Contact Info) Description 05/03/2025 Telephone [facility] MEDICINE 230 [place], [place] [phone] Zahraa Roca DO 230 [place], [place] [phone] Nurse Triage Social History Tobacco Use Types [...] this time as he had 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 Pt states rescheduled to Tuesday but [...] caller accepted this outcome. Contact pt at [phone] documented in this encounter Plan of Treatment Upcoming Encounters Date Type Department Care Team (Late st Contact Info) Description 07/22/2025 8:30 AM EST Clinical Support [address] [place] [address] Mere Rios, HENRIK 07/29/2025 8:30 AM EST Clinical Support [address] [address] Mere Rios, HENRIK 08/05/2025 8:30 AM EST Clinical Support [address] [address] Mere Rios, HENRIK 08/13/2025 9:00 AM EST Clinical Support [facility] [place] [address] Mere Rios, HENRIK 08/19/2025 8:30 AM EST Clinical Support [address] [place] [address] Mere Rios, RN 08/23/2025 9:30 AM EST Office Visit [address] [place] [address] Jill oBudreaux MD 230 [place] [address] documented as of this encounter Visit Diagnoses Not on filedocumented in this encounter Additional Health Concerns Assessment Noted Time PHQ-9 Depression Total Score: 16 10/16/ 025 3:09 PM EDT documented as of this encounter Care Teams Ophthalmic Technician Relationship Specialty Start Date End Date Zahraa Roca DO 230 [place] [address] PCP - General Family Medicine 07/25/18 Christian Soria FNP [address] [place] [address] Nurse Practitioner Family Medicine 06/24/23 documented as of this encounter
--- OUTSIDE RECORDS SUMMARY | 2025-07-10 19:30 | XMS_ITS | Encounter Summary ---
Author Organization [employer] Address 75 [facility] 7t [place] [address] Care Team Providers Care Forest Firefighter Name Role Phone Zahraa Roca DO Primary Care Provider [phone] Christian Soria Unavailable Unavailable Reason for Visit * Reason Onset Date Comments PT-1 07/13/2024 Encounter Details Date Type Department Care Team ([facility] st Contact Info) Description 07/13/2024 Telephone [facility] MEDICINE 230 [place], [place] [phone] Zahraa Roca DO 230 [place], [place] [phone] PT-1 Social History Tobacco Use Types Packs/Day [...] Y/N: Yes Provider name or facility name: [address] [place] [address] Escort needed: Y/N: No Do you have a wheelchair: Y/N: No If yes- Manual or electric: Visits: (3x Monthly) documented in this encounter Plan of Treatment Upcoming Encounters Date Type Department Care Team (Late st Contact Info) Description 07/22/2025 8:30 AM EST Clinical Support [address] [address] Mere Rios, RN 07/29/2025 8:30 AM EST Clinical Support [address] [address] Mere Rios, RN 08/05/2025 8:30 AM EST Clinical Support [address] [address] Mere Rios, HENRIK 08/13/2025 9:00 AM EST Clinical Support [address] [address] Mere Rios, HENRIK 08/19/2025 8:30 AM EST Clinical Support [address] [address] Mere Rios, RN 08/23/2025 9:30 AM EST Office Visit [address] [address] Jill Boudreaux MD [address] [place] [address] documented as of this encounter Visit Diagnoses Not on filedocumented in this encounter Additional Health Concerns Assessment Noted Time PHQ-9 Depression Total Score: 0 11/28/19 24 11:23 AM EDT documented as of this encounter Care Teams Forest Firefighter Relationship Specialty Start Date End Date Zahraa Roca DO [address] [place] [address] PCP - General Family Medicine 07/25/18 Christian Soria FNP [address] [place] [address] Nurse Practitioner Family Medicine 06/24/23 documented as of this encounter
--- OUTSIDE RECORDS SUMMARY | 2025-07-10 19:31 | XMS_ITS | Encounter Summary ---
Author Organization [employer] Address 75 [facility] 7t [place] [address] Care Team Providers Care Triage Registered Nurse Name Role Phone Zahraa Roca DO Primary Care Provider [phone] Christian Soria Unavailable Unavailable Reason for Visit * Reason Onset Date Comments Appt question 08/09/2024 Encounter Details Date Type Department Care Team ([facility] st Contact Info) Description 08/09/2024 Telephone [facility] MEDICINE 230 [place], [place] [phone] Zahraa Roca DO 230 [place], [place] [phone] Appt question Social History Tobacco Use Types [...] aug appt its for that. Any questions [phone] documented in this encounter Plan of Treatment Upcoming Encounters Date Type Department Care Team (Late st Contact Info) Description 07/22/2025 8:30 AM EST Clinical Support [facility] MEDICINE [address] [place] [address], [place] [address] Mere Rios, HENRIK 07/29/2025 8:30 AM EST Clinical Support [facility] MEDICINE [address] [place] [address], [place] [address] Mere Rios, HENRIK 08/05/2025 8:30 AM EST Clinical Support [facility] MEDIC[facility] [place] [address] Mere Rios, HENRIK 08/13/2025 9:00 AM EST Clinical Support [address] [place] [address] Mere Rios RN 08/19/2025 8:30 AM EST Clinical Support [address] [address] Mere Rios RN 08/23/2025 9:30 AM EST Office Visit [address] [address] Jill Boudreaux MD [address] [place] [address] documented as of this encounter Visit Diagnoses Not on filedocumented in this encounter Additional Health Concerns Assessment Noted Time PHQ-9 Depression Total Score: 0 11/28/19 24 11:23 AM EDT documented as of this encounter Care Teams Triage Registered Nurse Relationship Specialty Start Date End Date Zahraa Roca DO [address] [place] [address] PCP - General Family Medicine 07/25/18 Christian Soria FNP [address] [place] [address] Nurse Practitioner Family Medicine 06/24/23 documented as of this encounter
--- OUTSIDE RECORDS SUMMARY | 2025-07-10 19:31 | XMS_ITS | Encounter Summary ---
Author Organization [employer] Address 75 [facility] 7t [place] [address] Care Team Providers Care Oracle Database Administrator Name Role Phone Zahraa Roca DO Primary Care Provider [phone] Christian Soria Unavailable Unavailable Encounter Details Date Type Department Care Team (Late st Contact Info) Description 08/31/[address] [address] Zahraa Roca DO [address] [place] [address] Social History Tobacco Use Types Packs/Day Years [...] Description 07/22/2025 8:30 AM EST Clinical Support [address] [address] Mere Rios, HENRIK 07/29/2025 8:30 AM EST Clinical Support [address] [address] Mere Rios, RN 08/05/2025 8:30 AM EST Clinical Support [address] [address] Mere Rios, RN 08/13/2025 9:00 AM EST Clinical Support [address] [address] Mere Rios, HENRIK 08/19/2025 8:30 AM EST Clinical Support [address] [address] Mere Rios RN 08/23/2025 9:30 AM EST Office Visit [address] [address] Jill Boudreaux MD [address] [place] [address] documented as of this encounter Visit Diagnoses Not on filedocumented in this encounter Additional Health Concerns Assessment Noted Time PHQ-9 Depression Total Score: 0 08/24/19 23 2:33 PM EST documented as of this encounter Care Teams Oracle Database Administrator Relationship Specialty Start Date End Date Zahraa Roca DO [address] [place] [address] PCP - General Family Medicine 07/25/18 Christian Soria FNP [address] [place] [address] Nurse Practitioner Family Medicine 06/24/23 documented as of this encounter
--- OUTSIDE RECORDS SUMMARY | 2025-07-10 19:31 | XMS_ITS | Encounter Summary ---
Author Organization [employer] Address 75 [facility] 7t [place] [address] Care Team Providers Care Supervisor Concrete Stone Fabricating Name Role Phone Zahraa Roca DO Primary Care Provider + [phone] Christian Soria Unavailable Unavailable Reason for Visit * Reason Comments Med Refill Encounter Details Date Type Department Care Team ([facility] st Contact Info) Description 07/10/2025 Refill [facility] MEDICINE 230 [place], [place] [phone] Zahraa Roca DO 230 [place], [place] [phone] Anxiety Social History Tobacco Use Types Packs/Day [...] Description 07/22/2025 8:30 AM EST Clinical Support [address] [address] Mere Rios, HENRIK 07/29/2025 8:30 AM EST Clinical Support [address] [address] Mere Rios, HENRIK 08/05/2025 8:30 AM EST Clinical Support [address] [address] Mere Rios, HENRIK 08/13/2025 9:00 AM EST Clinical Support [address] [address] Mere Rios, RN 08/19/2025 8:30 AM EST Clinical Support [address] [address] Mere Rios, RN 08/23/2025 9:30 AM EST Office Visit [address] [address] Jill Boudreaux MD [address] [place] [address] documented as of this encounter Visit Diagnoses Diagnosis Anxiety Anxiety state, unspecified documented in this encounter Additional Health Concerns Assessment Noted Time PHQ-9 Depression Total Score: 16 10/16/ 025 3:09 PM EDT documented as of this encounter Care Teams Supervisor Concrete Stone Fabricating Relationship Specialty Start Date End Date Zahraa Roca DO 230 [place] [address] PCP - General Family Medicine 07/25/18 Christian Soria FNP 230 [place] [address] Nurse Practitioner Family Medicine 06/24/23 documented as of this encounter
--- OUTSIDE RECORDS SUMMARY | 2025-07-10 19:31 | XMS_ITS | Encounter Summary ---
Author Organization [employer] Address 75 [facility] 7t [place] [address] Care Team Providers Care Senior Data Warehouse Architect Name Role Phone Zahraa Roca DO Primary Care Provider + [phone] Christian Soria Unavailable Unavailable Reason for Visit * Reason Comments Med Refill Encounter Details Date Type Department Care Team ([facility] st Contact Info) Description 05/09/[address] [facility] MEDICINE 230 [place], [place] [phone] Zahraa Roca DO 230 [place], [place] [phone] Anxiety Social History Tobacco Use Types Packs/Day [...] Description 07/22/2025 8:30 AM EST Clinical Support [address] [address] Mere Rios, HENRIK 07/29/2025 8:30 AM EST Clinical Support [address] [address] Mere Rios, HENRIK 08/05/2025 8:30 AM EST Clinical Support [address] [address] Mere Rios, HENRIK 08/13/2025 9:00 AM EST Clinical Support [address] [address] Mere Rios, RN 08/19/2025 8:30 AM EST Clinical Support [address] [address] Mere Rios, RN 08/23/2025 9:30 AM EST Office Visit [address] [address] Jill Boudreaux MD [address] [place] [address] documented as of this encounter Visit Diagnoses Diagnosis Anxiety Anxiety state, unspecified documented in this encounter Additional Health Concerns Assessment Noted Time PHQ-9 Depression Total Score: 16 10/16/ 025 3:09 PM EDT documented as of this encounter Care Teams Senior Data Warehouse Architect Relationship Specialty Start Date End Date Zahraa Roca DO 230 [place] [address] PCP - General Family Medicine 07/25/18 Christian Soria FNP 230 [place] [address] Nurse Practitioner Family Medicine 06/24/23 documented as of this encounter
--- OUTSIDE RECORDS SUMMARY | 2025-07-10 19:31 | XMS_ITS | Encounter Summary ---
Author Organization [employer] Address 75 [facility] 7 [place] [address] Care Team Providers Care Volunteer Services Manager Name Role Phone Zahraa Roca DO Primary Care Provider [phone] Christian Soria Unavailable Unavailable Reason for Visit * Reason Onset Date Comments PT-1 10/01/2024 Encounter Details Date Type Department Care Team ([facility] st Contact Info) Description 10/01/2024 Telephone [facility] MEDICINE 230 [place], [place] [phone] Zahraa Roca DO 230 [place], [place] [phone] PT-1 (/) Social History Tobacco Use Types [...] EDT Tc from pt requesting for the Personal Financial Planner locations for all his Pt 1 to be changed to [address] [place] [address]. If any questions contact pt at [phone] documented in this encounter Plan of Treatment Upcoming Encounters Date Type Department Care Team (Late st Contact Info) Description 07/22/2025 8:30 AM EST Clinical Support [address] [place] [address] Mere Rios, HENRIK 07/29/2025 8:30 AM EST Clinical Support [address] [address] Mere Rios, RN 08/05/2025 8:30 AM EST Clinical Support [address] [address] Mere Rios, RN 08/13/2025 9:00 AM EST Clinical Support [address] [address] Mere Rios, RN 08/19/2025 8:30 AM EST Clinical Support [address] [address] Mere Rios RN 08/23/2025 9:30 AM EST Office Visit [address] [address] Jill Boudreaux MD [address] [place] [address] documented as of this encounter Visit Diagnoses Not on filedocumented in this encounter Additional Health Concerns Assessment Noted Time PHQ-9 Depression Total Score: 0 11/28/19 24 11:23 AM EDT documented as of this encounter Care Teams Volunteer Services Manager Relationship Specialty Start Date End Date Zahraa Roca DO [address] [place] [address] PCP - General Family Medicine 07/25/18 Christian Soria FNP [address] [place] [address] Nurse Practitioner Family Medicine 06/24/23 documented as of this encounter
--- OUTSIDE RECORDS SUMMARY | 2025-07-10 19:31 | XMS_ITS | Encounter Summary ---
Author Organization [employer] Address 75 [facility] [address] 7t [place] [address] Care Team Providers Care Gift Shop Assistant Name Role Phone Abelino Zahraa Primary Care Provider + [phone] Christian Soria Unavailable Unavailable Encounter Details Date Type Department Care Team (Late st Contact Info) Description 11/03/2023 Orders Only [facility] MED[facility]INE 230 [place] [address] Provider, MD Hiral Social History Tobacco Use [...] Description 07/22/2025 8:30 AM EST Clinical Support [address] [address] Mere Rios, HENRIK 07/29/2025 8:30 AM EST Clinical Support [address] [address] Mere Rios, HENRIK 08/05/2025 8:30 AM EST Clinical Support [address] [address] Mere Rios, HENRIK 08/13/2025 9:00 AM EST Clinical Support [address] [address] Mere Rios, RN 08/19/2025 8:30 AM EST Clinical Support [address] [address] Mere Rios, RN 08/23/2025 9:30 AM EST Office Visit [address] [address] Jill Boudreaux MD [address] [place] [address] documented as of this encounter Procedures Procedure [...] documented as of this encounter Care Teams Gift Shop Assistant Relationship Specialty Start Date End Date Zahraa Roca DO 230 [place] [address] PCP - General Family Medicine 07/25/18 Christian Soria FNP 230 [place] [address] Nurse Practitioner Family Medicine 06/24/23 documented as of this encounter
--- OUTSIDE RECORDS SUMMARY | 2025-07-10 19:31 | XMS_ITS | Encounter Summary ---
Author Organization [employer] Address 75 [facility] 7t [place] [address] Care Team Providers Care Supervisor Lead Refinery Name Role Phone AbelinoZahraa Primary Care Provider [phone] Christian Soria Unavailable Unavailable Encounter Details Date Type Department Care Team (Late st Contact Info) Description 07/06/[address] [facility] CHC MED & PEDS [address] [place], [place] [phone] Zahraa Andino LPN Social History Tobacco Use [...] Description 07/22/2025 8:30 AM EST Clinical Support [address] [address] Mere Rios, HENRIK 07/29/2025 8:30 AM EST Clinical Support [address] [address] Mere Rios, RN 08/05/2025 8:30 AM EST Clinical Support [address] [address] Mere Rios, RN 08/13/2025 9:00 AM EST Clinical Support [address] [address] Mere Rios, RN 08/19/2025 8:30 AM EST Clinical Support [address] [address] Mere Rios RN 08/23/2025 9:30 AM EST Office Visit [address] [address] Jill Boudreaux MD [address] [place] [address] documented as of this encounter Visit Diagnoses Not on filedocumented in this encounter Care Teams Supervisor Lead Refinery Relationship Specialty Start Date End Date Zahraa Roca DO [address] [place] [address] PCP - General Family Medicine 07/25/18 Christian Soria FNP [address] [place] [address] Nurse Practitioner Family Medicine 06/24/23 documented as of this encounter
--- OUTSIDE RECORDS SUMMARY | 2025-07-10 19:31 | XMS_ITS | Encounter Summary ---
Author Organization [employer] Address 75 [facility] 7 [place] [address] Care Team Providers Care Medical Records Coordinator Name Role Phone Zahraa Roca DO Primary Care Provider [phone] Christian Soria Unavailable Unavailable Reason for Visit * Reason Onset Date Comments PT1 10/24/2024 Encounter Details Date Type Department Care Team ([facility] st Contact Info) Description 10/24/2024 Telephone [facility] MEDICINE [address] [place], [place] [phone] Zahraa Roca DO 230 [place], [place] [phone] PT1 Social History Tobacco Use Types Packs/Day [...] encounter Miscellaneous Notes * Telephone Encounter - iLsa Pressley - 10/24/2024 9:06 AM EDT 1.)Patient [...] Address: [address] [facility] [address] Escort needed: Y/N: No Visits: 3x a month for 1 year 3.) Patient calling requesting PT1 Home Address verified: Y/N: Yes Provider name or facility name: Everton Lawton MD Facility Address: [address], [place] [address] Escort needed: Y/N: No Visits: 3 x a month for 1 year 4.) Patient calling requesting PT1 Home Address verified: Y/N: Yes Provider name or facility name: PCP and dental appt Facility Address: [address] [facility] [address] Escort needed: Y/N: No Visits: 4x a month for 1 year documented in this encounter Plan of Treatment Upcoming Encounters Date Type Department Care Team (Late st Contact Info) Description 07/22/2025 8:30 AM EST Clinical Support [facility] [place] [address] Mere Rios, RN 07/29/2025 8:30 AM EST Clinical Support [facility] [place] [address] Mere Rios, RN 08/05/2025 8:30 AM EST Clinical Support [facility] [place] [address] Mere Rios, RN 08/13/2025 9:00 AM EST Clinical Support [facility] [place] [address] Mere Rios, HENRIK 08/19/2025 8:30 AM EST Clinical Support [facility] [place] [address] Mere Rios, HENRIK 08/23/2025 9:30 AM EST Office Visit [facility] [place] [address] Jill Boudreaux MD [facility] [place] [address] documented as of this encounter Visit Diagnoses Not on filedocumented in this encounter Additional Health Concerns Assessment Noted Time PHQ-9 Depression Total Score: 16 10/16/2 025 3:09 PM EDT documented as of this encounter Care Teams Medical Records Coordinator Relationship Specialty Start Date End Date [place] [address] PCP - General Family Medicine 07/25/18 Christian Soria FNP [facility] [place] [address] Nurse Practitioner Family Medicine 06/24/23 documented as of this encounter
--- OUTSIDE RECORDS SUMMARY | 2025-07-10 19:31 | XMS_ITS | Encounter Summary ---
Author Organization [employer] Address 75 [facility] 7t [place] [address] Care Team Providers Care Project Engineer Chemicals Name Role Phone Abelino Zahraa Primary Care Provider [phone] Christian Soria Unavailable Unavailable Encounter Details Date Type Department Care Team (Late st Contact Info) Description 10/21/2022 Orders Only [facility] CHC MED & PEDS [address] [place] [address] Zahraa Andino LPN Social History Tobacco Use [...] Description 07/22/2025 8:30 AM EST Clinical Support [address] [address] Mere Rios, RN 07/29/2025 8:30 AM EST Clinical Support [address] [address] Mere Rios, RN 08/05/2025 8:30 AM EST Clinical Support [address] [address] Mere Rios, RN 08/13/2025 9:00 AM EST Clinical Support [address] [address] Mere Rios, HENRIK 08/19/2025 8:30 AM EST Clinical Support [address] [address] Mere Rios, HENRIK 08/23/2025 9:30 AM EST Office Visit [address] [address] Jill Boudreaux MD [address] [place] [address] documented as of this encounter Visit Diagnoses Not on filedocumented in this encounter Additional Health Concerns Assessment Noted Time PHQ-9 Depression Total Score: 0 08/24/19 23 2:33 PM EST documented as of this encounter Care Teams Project Engineer Chemicals Relationship Specialty Start Date End Date Zahraa Roca DO [address] [place] [address] PCP - General Family Medicine 07/25/18 Christian Soria FNP [address] [place] [address] Nurse Practitioner Family Medicine 06/24/23 documented as of this encounter
--- OUTSIDE RECORDS SUMMARY | 2025-07-10 19:31 | XMS_ITS | Encounter Summary ---
Author Organization [employer] Address [address] [facility] [address] 7t [place] [address] Care Team Providers Care Molder Closed Molds Name Role Phone AbelinoZahraa Primary Care Provider [phone] Christian Soria Unavailable Unavailable Encounter Details Date Type Department Care Team (Latest Contact Info) Description 07/10/2025 Travel Social History Tobacco Use Types Packs/Day [...] Description 07/22/2025 8:30 AM EST Clinical Support [address] [address] Mere Rios, HENRIK 07/29/2025 8:30 AM EST Clinical Support [address] [address] Mere Rios, HENRIK 08/05/2025 8:30 AM EST Clinical Support [address] [address] Mere Rios, HENRIK 08/13/2025 9:00 AM EST Clinical Support [address] [address] Mere Rios, HENRIK 08/19/2025 8:30 AM EST Clinical Support [address] [address] Mere Rios, RN 08/23/2025 9:30 AM EST Office Visit [address] [address] Jill Boudreaux MD 230 [place] [address] documented as of this encounter Visit Diagnoses Not on filedocumented in this encounter Additional Health Concerns Assessment Noted Time PHQ-9 Depression Total Score: 16 025 3:09 PM EDT documented as of this encounter Care Teams Molder Closed Molds Relationship Specialty Start Date End Date Zahraa Roca DO [address] [place] [address] PCP - General Family Medicine 07/25/18 Christian Soria FNP [address] [place] [address] Nurse Practitioner Family Medicine 06/24/23 documented as of this encounter
--- OUTSIDE RECORDS SUMMARY | 2025-07-10 19:31 | XMS_ITS | Encounter Summary ---
Author Organization [employer] Address 75 [facility] 7 [place] [address] Care Team Providers Care Radio Tester Name Role Phone Zahraa Roca DO Primary Care Provider [phone] Christian Soria Unavailable Unavailable Reason for Visit * Reason Onset Date Comments PT-1 10/02/2024 Encounter Details Date Type Department Care Team ([facility] st Contact Info) Description 10/02/2024 Telephone [facility] MEDICINE 230 [place], [place] [phone] Zahraa Roca DO [address] [place], [place] [phone] PT-1 Social History Tobacco Use Types Packs/Day [...] status of Pt 1 Contact pt at [phone] * Telephone Encounter - Go Vasquez - 10/02/2024 9:06 AM EDT Patient calling requesting PT1 Home Address verified: Y/N: Yes Provider name or facility name: [facility] [address] [address] Escort needed: Y/N: No Do you have a wheelchair: Y/N: No If yes- Manual or electric: Visits: (7 Days x Weekly) documented in this encounter Plan of Treatment Upcoming Encounters Date Type Department Care Team ([facility] st Contact Info) Description 07/22/2025 8:30 AM EST Clinical Support [address] [address] Mere Rios, HENRIK 07/29/2025 8:30 AM EST Clinical Support [facility] [address] Mere Rios, RN 08/05/2025 8:30 AM EST Clinical Support [facility] [address] Mere Rios, HENRIK 08/13/2025 9:00 AM EST Clinical Support [facility] [address] Mere Riso, HENRIK 08/19/2025 8:30 AM EST Clinical Support [facility] [address] Mere Rios, HENRKI 08/23/2025 9:30 AM EST Office Visit [place] [address] Jill Boudreaux MD [facility] [place] [address] documented as of this encounter Visit Diagnoses Not on filedocumented in this encounter Additional Health Concerns Assessment Noted Time PHQ-9 Depression Total Score: 0 11/28/19 24 11:23 AM EDT documented as of this encounter Care Teams Radio Tester Relationship Specialty Start Date End Date Zahraa Roca DO [facility] [place] [address] PCP - General Family Medicine 07/25/18 Christian Soria F[place] [address] Nurse Practitioner Family Medicine 06/24/23 documented as of this encounter
--- OUTSIDE RECORDS SUMMARY | 2025-07-10 19:31 | XMS_ITS | Encounter Summary ---
Author Organization [employer] Address 75 [facility] 7t [place] [address] Care Team Providers Care Mop Man Name Role Phone Abelino Zahraa Primary Care Provider [phone] Christian Soria Unavailable Unavailable Encounter Details Date Type Department Care Team (Late st Contact Info) Description 09/20/2022 Orders Only [facility] CHC MED & PEDS [address] [place] [address] Zahraa Andino LPN Social History Tobacco Use [...] Description 07/22/2025 8:30 AM EST Clinical Support [address] [address] Mere Rios, RN 07/29/2025 8:30 AM EST Clinical Support [address] [address] Mere Rios, RN 08/05/2025 8:30 AM EST Clinical Support [address] [address] Mere Rios, RN 08/13/2025 9:00 AM EST Clinical Support [address] [address] Mere Rios, HENRIK 08/19/2025 8:30 AM EST Clinical Support [address] [address] Mere Rios, HENRIK 08/23/2025 9:30 AM EST Office Visit [address] [address] Jill Boudreaux MD [address] [place] [address] documented as of this encounter Visit Diagnoses Not on filedocumented in this encounter Additional Health Concerns Assessment Noted Time PHQ-9 Depression Total Score: 0 08/24/19 23 2:33 PM EST documented as of this encounter Care Teams Mop Man Relationship Specialty Start Date End Date Zahraa Roca DO [address] [place] [address] PCP - General Family Medicine 07/25/18 Christian Soria FNP [address] [place] [address] Nurse Practitioner Family Medicine 06/24/23 documented as of this encounter
--- OUTSIDE RECORDS SUMMARY | 2025-07-10 19:31 | XMS_ITS | Encounter Summary ---
Author Organization [employer] Address 75 [facility] 7 [place] [address] Care Team Providers Care Senior Oracle Soa Developer Name Role Phone Zahraa Roca DO Primary Care Provider [phone] Christian Soria Unavailable Unavailable Reason for Visit * Reason Onset Date Comments Appointment Request 08/03/2024 Encounter Details Date Type Department Care Team ([facility] st Contact Info) Description 08/03/2024 Telephone [facility] MEDICINE 230 [place], [place] [phone] Zahraa Roca DO 230 [place], [place] [phone] Appointment Request Social History Tobacco Use Types [...] missed appointment with dermatology. Contact pt at [phone] documented in this encounter Plan of Treatment Upcoming Encounters Date Type Department Care Team (Late st Contact Info) Description 07/22/2025 8:30 AM EST Clinical Support [address] [address] Mere Rios, HENRIK 07/29/2025 8:30 AM EST Clinical Support [address] [address] Mere Rios, RN 08/05/2025 8:30 AM EST Clinical Support [address] [address] Mere Rios, RN 08/13/2025 9:00 AM EST Clinical Support [address] [address] Mere Rios, RN 08/19/2025 8:30 AM EST Clinical [place] [address] [place] [address] Mere Rios RN 08/23/2025 9:30 AM EST Office Visit [facility] [address] [place] [address] Jill Boudreaux MD [address] [place] [address] documented as of this encounter Visit Diagnoses Not on filedocumented in this encounter Additional Health Concerns Assessment Noted Time PHQ-9 Depression Total Score: 0 11/28/19 24 11:23 AM EDT documented as of this encounter Care Teams Senior Oracle Soa Developer Relationship Specialty Start Date End Date Zahraa Roca DO [address] [place] [address] PCP - General Family Medicine 07/25/18 Christian Soria FNP [address] [place] [address] Nurse Practitioner Family Medicine 06/24/23 documented as of this encounter
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
--- OUTSIDE RECORDS SUMMARY | 2025-07-10 19:31 | XMS_ITS | Encounter Summary ---
Author Organization [employer] Address [address] [facility] [address] 7t [place] [address] Care Team Providers Care Plug Making Operator Name Role Phone Zahraa Roca DO Primary Care Provider [phone] Christian Soria Unavailable Unavailable Encounter Details Date Type Department Care Team (Late st Contact Info) Description 10/10/2024 Orders Only [facility] MEDICINE 230 [place], [place] [phone] Zahraa Roca DO 230 [place] [address] Social History Tobacco Use Types Packs/Day Years [...] Description 07/22/2025 8:30 AM EST Clinical Support [address] [address] Mere Rios, HENRIK 07/29/2025 8:30 AM EST Clinical Support [address] [address] Mere Rios, RN 08/05/2025 8:30 AM EST Clinical Support [address] [address] Mere Rios, HENRIK 08/13/2025 9:00 AM EST Clinical Support [address] [address] Mere Rios, HENRIK 08/19/2025 8:30 AM EST Clinical Support [address] [address] Mere Rios, RN 08/23/2025 9:30 AM EST Office Visit [address] [address] Jill Boudreaux MD [address] [place] [address] documented as of this encounter Visit Diagnoses Not on filedocumented in this encounter Additional Health Concerns Assessment Noted Time PHQ-9 Depression Total Score: 0 11/28/19 24 11:23 AM EDT documented as of this encounter Care Teams Plug Making Operator Relationship Specialty Start Date End Date Zahraa Roca DO 230 [place] [address] PCP - General Family Medicine 07/25/18 Christian Soria FNP 230 [place] [address] Nurse Practitioner Family Medicine 06/24/23 documented as of this encounter
--- OUTSIDE RECORDS SUMMARY | 2025-07-10 19:31 | XMS_ITS | Encounter Summary ---
Author Organization [employer] Address [address] [place] [address] 7t [place] [address] Care Team Providers Care Asp Net Mvc Developer Name Role Phone YudiZahraa barahona Primary Care Provider + [phone] Christian Soria Unavailable Unavailable Reason for Visit * Reason Comments Med Refill Encounter Details Date Type Department Care Team (Late st Contact Info) Description 12/19/2022 Refill [facility] MEDICINE [address] [place] [address] Christian Soria FNP Anxiety Social History Tobacco [...] Description 07/22/2025 8:30 AM EST Clinical Support [facility] [address] [place] [address] Mere Rios RN 07/29/2025 8:30 AM EST Clinical Support [facility]INE [address] [place] [address] Mere Rios, HENRIK 08/05/2025 8:30 AM EST Clinical Support [facility] [place] [address] Mere Rios, RN 08/13/2025 9:00 AM EST Clinical Support [facility] [place] [address] Mere Rios, RN 08/19/2025 8:30 AM EST Clinical Support [facility] [place] [address] Mere Rios, HENRIK 08/23/2025 9:30 AM EST Office Visit [address] [address] [place] [address] documented as of this encounter Visit Diagnoses Diagnosis Anxiety Anxiety state, unspecified documented in this encounter Additional Health Concerns Assessment Noted Time PHQ-9 Depression Total Score: 0 08/24/19 23 2:33 PM EST documented as of this encounter Care Teams Asp Net Mvc Developer Relationship Specialty Start Date End Date [place] [address] PCP - General Family Medicine 07/25/18 Christian Soria FNP [address] [place] [address] Nurse Practitioner Family Medicine 06/24/23 documented as of this encounter
--- OUTSIDE RECORDS SUMMARY | 2025-07-10 19:31 | XMS_ITS | Encounter Summary ---
Author Organization [employer] Address [address] [place] [address] 7 [place] [address] Care Team Providers Care Sales Receptionist Name Role Phone Zahraa Roca DO Primary Care Provider [phone] Christian Soria Unavailable Unavailable Reason for Visit * Reason Onset Date Comments Med Refill 12/31/2022 Encounter Details Date Type Department Care Team (Late st Contact Info) Description 12/31/2022 Telephone [facility] MEDICINE 230 [place], [place] [phone] Zahraa Roca DO 230 [place], [place] [phone] Med Refill Social History Tobacco Use Types [...] Description 07/22/2025 8:30 AM EST Clinical Support [facility] [place] [address] Mere Rios, RN 07/29/2025 8:30 AM EST Clinical Support [facility] [place] [address] Mere Rios, RN 08/05/2025 8:30 AM EST Clinical Support [facility] [place] [address] Mere Rios, RN 08/13/2025 9:00 AM EST Clinical Support [facility] [place] [address] Mere Rios, RN 08/19/2025 8:30 AM EST Clinical Support [facility] [place] [address] Mere Rios, HENRIK 08/23/2025 9:30 AM EST Office Visit [facility] [place] [address] Jill Boudreaux MD [place] [address] documented as of this encounter Visit Diagnoses Not on filedocumented in this encounter Additional Health Concerns Assessment Noted Time PHQ-9 Depression Total Score: 0 08/24/19 23 2:33 PM EST documented as of this encounter Care Teams Sales Receptionist Relationship Specialty Start Date End Date [place] [address] PCP - General Family Medicine 07/25/18 Christian Soria FNP [place] [address] Nurse Practitioner Family Medicine 06/24/23 documented as of this encounter
--- OUTSIDE RECORDS SUMMARY | 2025-07-10 19:31 | XMS_ITS | Encounter Summary ---
Author Organization [employer] Address [address] [place] [address] 7t [place] [address] Care Team Providers Care Shuttle Preparation Supervisor Name Role Phone YudiZahraa barahona Primary Care Provider +[phone] Christian Soria Unavailable Unavailable Reason for Visit * Reason Comments Med Refill Encounter Details Date Type Department Care Team (Late st Contact Info) Description 12/31/2022 Refill [facility] MEDICINE [address] [place] [address] Christian Soria FNP Anxiety Social History Tobacco [...] Description 07/22/2025 8:30 AM EST Clinical Support [facility] [address] [place] [address] Mere Rios, HENRIK 07/29/2025 8:30 AM EST Clinical Support [facility] [address] [place] [address] Mere Rios, RN 08/05/2025 8:30 AM EST Clinical Support [facility] [address] [place] [address] Mere Rios, HENRIK 08/13/2025 9:00 AM EST Clinical Support [facility] [place] [address] Mere Rios, HENRIK 08/19/2025 8:30 AM EST Clinical Support [facility] [place] [address] Mere Rios, HENRIK 08/23/2025 9:30 AM EST Office Visit [address] [address] Jill Boudreaux MD [address] [place] [address] documented as of this encounter Visit Diagnoses Diagnosis Anxiety Anxiety state, unspecified documented in this encounter Additional Health Concerns Assessment Noted Time PHQ-9 Depression Total Score: 0 08/24/19 23 2:33 PM EST documented as of this encounter Care Teams Shuttle Preparation Supervisor Relationship Specialty Start Date End Date Zahraa Roca DO [address] [place] [address] PCP - General Family Medicine 07/25/18 Christian Soria FNP [address] [place] [address] Nurse Practitioner Family Medicine 06/24/23 documented as of this encounter
--- OUTSIDE RECORDS SUMMARY | 2025-07-10 19:31 | XMS_ITS | Encounter Summary ---
Author Organization [employer] Address 75 [facility] 7t [place] [address] Care Team Providers Care Mat Maker Name Role Phone Zahraa Rcoa DO Primary Care Provider + [phone] Christian Soria Unavailable Unavailable Reason for Visit * Reason Comments Med Refill Encounter Details Date Type Department Care Team ([facility] st Contact Info) Description 07/01/2025 Refill [facility] MEDICINE 230 [place], [place] [phone] Zahraa Roca DO 230 [place], [place] [phone] Anxiety Social History Tobacco Use Types Packs/Day [...] Description 07/22/2025 8:30 AM EST Clinical Support [address] [address] Mere Rios, HENRIK 07/29/2025 8:30 AM EST Clinical Support [address] [address] Mere Rios, HENRIK 08/05/2025 8:30 AM EST Clinical Support [address] [address] Mere Rios, HENRIK 08/13/2025 9:00 AM EST Clinical Support [address] [address] Mere Rios, RN 08/19/2025 8:30 AM EST Clinical Support [address] [address] Mere Rios, RN 08/23/2025 9:30 AM EST Office Visit [address] [address] Jill Boudreaux MD [address] [place] [address] documented as of this encounter Visit Diagnoses Diagnosis Anxiety Anxiety state, unspecified documented in this encounter Additional Health Concerns Assessment Noted Time PHQ-9 Depression Total Score: 16 10/16/ 025 3:09 PM EDT documented as of this encounter Care Teams Mat Maker Relationship Specialty Start Date End Date Zahraa Roca DO 230 [place] [address] PCP - General Family Medicine 07/25/18 Christian Soria FNP [address] [place] [address] Nurse Practitioner Family Medicine 06/24/23 documented as of this encounter
--- OUTSIDE RECORDS SUMMARY | 2025-07-10 19:31 | XMS_ITS | Encounter Summary ---
Author Organization [employer] Address 75 [facility] 7t [place] [address] Care Team Providers Care Real Estate Agency Licensee Name Role Phone Zahraa Roca DO Primary Care Provider + [phone] Christian Soria Unavailable Unavailable Reason for Visit * Reason Comments Med Refill Encounter Details Date Type Department Care Team ([facility] st Contact Info) Description 02/14/2025 Refill [facility] MED[facility]INE 230 [place], [place] [phone] Zahraa Roca DO 230 [place], [place] [phone] Anxiety Social History Tobacco Use Types Packs/Day [...] Description 07/22/2025 8:30 AM EST Clinical Support [address] [address] Mere Rios, HENRIK 07/29/2025 8:30 AM EST Clinical Support [address] [address] Mere Rios, HENRIK 08/05/2025 8:30 AM EST Clinical Support [address] [address] Mere Rios, HENRIK 08/13/2025 9:00 AM EST Clinical Support [address] [address] Mere Rios, RN 08/19/2025 8:30 AM EST Clinical Support [address] [address] Mere Rios, RN 08/23/2025 9:30 AM EST Office Visit [address] [address] Jill Boudreaux MD [address] [place] [address] documented as of this encounter Visit Diagnoses Diagnosis Anxiety Anxiety state, unspecified documented in this encounter Additional Health Concerns Assessment Noted Time PHQ-9 Depression Total Score: 16 10/16/ 025 3:09 PM EDT documented as of this encounter Care Teams Real Estate Agency Licensee Relationship Specialty Start Date End Date Zahraa Roca DO 230 [place] [address] PCP - General Family Medicine 07/25/18 Christian Soria FNP 230 [place] [address] Nurse Practitioner Family Medicine 06/24/23 documented as of this encounter
--- OUTSIDE RECORDS SUMMARY | 2025-07-10 19:31 | XMS_ITS | Encounter Summary ---
Author Organization [employer] Address 75 [facility] 7t [place] [address] Care Team Providers Care Instrument And Control Technician Name Role Phone AbelinoZahraa Primary Care Provider +[phone] Christian Soria Unavailable Unavailable Encounter Details Date Type Department Care Team (Late st Contact Info) Description 08/12/2022 Orders Only [facility]S [address] [place], [place] [phone] Zahraa Andino LPN Social History Tobacco Use [...] Description 07/22/2025 8:30 AM EST Clinical Support [address] [address] Mere Rios, HENRIK 07/29/2025 8:30 AM EST Clinical Support [address] [address] Mere Rios, RN 08/05/2025 8:30 AM EST Clinical Support [address] [address] Mere Rios, RN 08/13/2025 9:00 AM EST Clinical Support [address] [address] Mere Rios, RN 08/19/2025 8:30 AM EST Clinical Support [address] [address] Mere Rios RN 08/23/2025 9:30 AM EST Office Visit [address] [address] Jill Boudreaux MD [address] [place] [address] documented as of this encounter Visit Diagnoses Not on filedocumented in this encounter Care Teams Instrument And Control Technician Relationship Specialty Start Date End Date Zahraa Roca DO [address] [place] [address] PCP - General Family Medicine 07/25/18 Christian Soria FNP [address] [place] [address] Nurse Practitioner Family Medicine 06/24/23 documented as of this encounter
--- OUTSIDE RECORDS SUMMARY | 2025-07-10 19:31 | XMS_ITS | Encounter Summary ---
Author Organization [employer] Address 75 [facility] 7t [place] [address] Care Team Providers Care Mounter Hand Name Role Phone AbelinoZahraa Primary Care Provider +[phone] Christian Soria Unavailable Unavailable Reason for Visit * Reason Onset Date Comments Med Refill 07/10/2025 Abnormal UTOX 07/10/2025 Encounter Details Date Type Department Care Team (Late st Contact Info) Description 07/10/2025 Refill [facility] 230 [place] [address] Mere Rios RN Anxiety Social History Tobacco [...] Telephone Encounter - Mere Rios RN - 07/10/2025 9:46 AM EST Pt had [employer]ODUCT DES[employer] RV appointment today UTOX was Pos JYOTI, Neg BZO, sent out for confirmation. Pt stated he's taking 2.5 doses a day and usually runs out of Clonazepam 3 days before his refill is due. Next [employer]ODUCT DES[employer] appointment scheduled for 07/22/25 d/t holidays. documented in this encounter Plan of Treatment Upcoming Encounters Date Type Department Care Team (Late st Contact Info) Description 07/22/2025 8:30 AM EST Clinical Support [address] [address] Mere Rios, HENRIK 07/29/2025 8:30 AM EST Clinical Support [address] [address] Mere Rios, HENRIK 08/05/2025 8:30 AM EST Clinical Support [address] [address] Mere Rios, HENRIK 08/13/2025 9:00 AM EST Clinical Support [address] [address] Mere Rios, HENRIK 08/19/2025 8:30 AM EST Clinical Support [address] [place] [address] Mere Rios RN 08/23/2025 9:30 AM EST Office Visit [facility] [address] [place] [address] Jill Boudreaux MD [address] [place] [address] documented as of this encounter Visit Diagnoses Diagnosis Anxiety Anxiety state, unspecified documented in this encounter Additional Health Concerns Assessment Noted Time PHQ-9 Depression Total Score: 16 10/16/ 025 3:09 PM EDT documented as of this encounter Care Teams Mounter Hand Relationship Specialty Start Date End Date Zahraa Roca DO [address] [place] [address] PCP - General Family Medicine 07/25/18 Christian Soria FNP [address] [place] [address] Nurse Practitioner Family Medicine 06/24/23 documented as of this encounter
== END 2025-07-10 14:34 | disposition home or self-care (01) ==
LOC: HO.HHCLNP 14:33
PROVIDERS: Visit Provider Family Medicine
DX: Z51.81 Encounter for therapeutic drug level monitoring (principal); Z79.899 Other long term (current) drug therapy
CPT/HCPCS: 80346; 80353

== ENCOUNTER 2025-07-15 11:29 | Outpatient (REF) | payer MEDICARE, MEDICAID, SELFPAY ==
--- OUTSIDE RECORDS SUMMARY | 2025-07-15 10:00 | XMS_ITS | Encounter Summary ---
Author Organization [employer] Address 75 [facility] 7t [place] [address] Care Team Providers Care Chip Tester Name Role Phone AbelinoZahraa Primary Care Provider + [phone] Christian Soria Unavailable Unavailable Reason for Visit * Reason Comments PARKING [employer]ER RV Encounter Details Date Type Department Care Team (Latest Contact Info) Description 07/15/2025 10:00 AM EST Clinical Support [facility] MEDICINE 230 [place] [address] Mere Rios RN Long-term current use of [...] Progress Notes * Mere Rios RN - 07/15/2025 10:00 AM EST SUBJECTIVE: Cristobal Enriquez is a 55 y.o. year old male who presents for [employer]ARKING [employer]ER RV Preferred language for medical information: Luxembour[place] Cristobal Enriquez does report adherence to Clonazepam (Klonopin) 1 mg, take 1 tablet every 12 hours PRN, last refilled 07/10/2025. 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 Reviewed PARKING LOT LABORER process to patient, explained he will need to come back in today with his prescription for his count. Anticipated count should be 17. Last PCP visit: 06/05/25 Controlled substance agreement signed: Controlled Substance Agreement 09/12/2024 PARKING LOT LABORER Tier: 1, weekly visits Current Medications[1] Smoking status: Denies ETOH use: Denies Illicit substances: Denies Marijuana use: Yes, Marijuana card: No , Marijuana Acquired from: Street, dangers of obtaining marijuana from the streets was discussed. Pt stated he smoked with someone different this time and was sure that the marijuana was 'clean.' Lab Results Component Value Date POCTHC Positive (A) 07/15/2025 POCCOCAINEUR Positive (A) 07/15/2025 POCOPIATEUR Negative 07/15/2025 DOAUR Negative 07/15/2025 POCAMPHETAMI Negative 07/15/2025 POCBENZODIUR Negative 07/15/2025 POCBARBSCRN Negative 07/15/2025 POCMETHADOUR Positive (A) 07/15/2025 POCBUPSCRN Negative 07/15/2025 POCTCAUR Negative 07/15/2025 POCMDMAUR Negative 07/15/2025 POCOXYCODONE Negative 07/15/2025 POCPHENCYCUR Negative 07/15/2025 PROPOXUR Negative 07/15/2025 FENTANYLURIN Negative 07/15/2025 ASSESSMENT: Encounter Diagnosis Name Primary? Long-term current use of benzodiazepine Yes PLAN: Information on acupuncture given: Previously discussed Narcan education provided: Previously discussed Narcan prescription: active Will update PCP with UTOX results and forgotten Clonazepam medication. Cristobal Enriquez will continue taking medication as prescribed and follow up at the next PARKING [employer]ORER visit orsooner if needed. Cristobal Enriquez has verbalized understanding of care plan. Future Appointments Date Time Provider Department Center 07/22/2025 8:30 AM Mere Rios RN [facility] 07/29/2025 8:30 AM Mere Rios RN [facility] 08/05/2025 8:30 AM Mere Rios RN [facility] 08/13/2025 9:00 AM Mere Rios RN [facility] 08/19/2025 8:30 AM Mere Rios RN [facility] 08/23/2025 9:30 AM Jill Boudreaux MD [facility] Mere Rios RN 2:30pm: Pt was to return today at 1pm for his Clonazepam count. Patient did not come. Attempted to call, no answer, voicemail full, unable to leave a message. Messaged PCP to notify. [1] Current Outpatient Medications: clonazePAM (KlonoPIN) 1 MG tablet, Take 1 tablet (1 mg) by mouth 2 times daily., Disp: 28 tablet, Rfl: 0 amitriptyline (Elavil) 10 MG [...] 07/22/2025 8:30 AM EST Clinical Support [address] [address] Mere Rios, HENRIK 07/29/2025 8:30 AM EST Clinical Support [address] [address] Mere Rios, HENRIK 08/05/2025 8:30 AM EST Clinical Support [address] [address] Mere Rios, HENRIK 08/13/2025 9:00 AM EST Clinical Support [address] [address] Mere Rios, HENRIK 08/19/2025 8:30 AM EST Clinical Support [address] [address] Mere Rios, HENRIK 08/23/2025 9:30 AM EST Office Visit [address] [address] Jill Boudreaux MD [address] [place] [address] Scheduled Orders Name Type Priority Associated Diagnoses Orde r Schedule Drug Monitoring, Benzodiazepines, Quantitative, Urine Lab Routine Long-term current use of benzodiazepine Ordered: 07/15/2025 Drug Monitoring, Cocaine Metabolite, Quantitative, Urine Lab Routine Long-term current use of benzodiazepine Ordered: 07/15/2025 documented as of this encounter Procedures Procedure Name Priority Date/Time Associated Diagnosis Comments POCT MARIO-14 URINE DRUG SCREEN Routine 07/15/2025 9:54 AM EST Long-term current use of benzodiazepine documented in this encounter Results * (ABNORMAL) POCT MARIO-14 Urine Drug Screen (07/15/2025 9:54 AM EST) [facility] THC Positive(A) Negative Cocaine Screen, Urine Positive(A) Negative Opiate Screen, Urine Negative Negative Methamphetamine Screen Urine Negative Negative Amphetamine Screen, Urine Negative Negative Benzodiazepines Screen, Urine Negative Negative Comment:PARKING LOT LABORER pt on CLonazepam Barbiturate Screen, Urine Negative Negative Methadone Screen, Urine Positive(A) Negative Buprenophine Screen, Urine Negative Negative TCA, Urine Negative Negative MDMA Urine Negative Negative ng/mL Oxycodone Screen, Urine Negative Negative Phencyclidine (PCP), Urine Negative Negative Propoxyphene, Urine Negative Negative Fentanyl, Urine Negative Negative Urine Urine specimen obtained by clean catch procedure / Unknown 07/15/2025 9:54 AM EST Mere Smalls RN - 07/15/2025 9:54 AM EST UTOX cup Lot#[id number] Exp. 06/24/26 Internal Pass Control Zahraa Roca DO POINT OF CARE TEST ENTER/JOANNA T ORDERABLES Final Result documented in this encounter Visit Diagnoses Diagnosis Long-term current use of benzodiazepine- Primary documented in this encounter Additional Health Concerns Assessment Noted Time PHQ-9 Depression Total Score: 16 025 3:09 PM EDT documented as of this encounter Care Teams Chip Tester Relationship Specialty Start Date End Date Zahraa Roca DO 230 [place] [address] PCP - General Family Medicine 07/25/18 Christian Soria FNP [address] [place] [address] Nurse Practitioner Family Medicine 06/24/23 documented as of this encounter
--- OUTSIDE RECORDS SUMMARY | 2025-07-16 12:53 | XMS_ITS | Encounter Summary ---
Author Organization [employer] Address 75 [facility] 7t [place] [address] Care Team Providers Care Finance Business Partner Name Role Phone Zahraa Roca DO Primary Care Provider [phone] Christian Soria Unavailable Unavailable Reason for Visit * Reason Onset Date Comments PT-1 07/13/2024 Encounter Details Date Type Department Care Team ([facility] st Contact Info) Description 07/13/2024 Telephone [facility] MEDICINE 230 [place], [place] [phone] Zahraa Roca DO 230 [place], [place] [phone] PT-1 Social History Tobacco Use Types Packs/Day [...] Y/N: Yes Provider name or facility name: [address] [place] [address] Escort needed: Y/N: No Do you have a wheelchair: Y/N: No If yes- Manual or electric: Visits: (3x Monthly) documented in this encounter Plan of Treatment Upcoming Encounters Date Type Department Care Team (Late st Contact Info) Description 07/22/2025 8:30 AM EST Clinical Support [address] [address] Mere Rios, RN 07/29/2025 8:30 AM EST Clinical Support [address] [address] Mere Rios, RN 08/05/2025 8:30 AM EST Clinical Support [address] [address] Mere Rios, HENRIK 08/13/2025 9:00 AM EST Clinical Support [address] [address] Mere Rios, HENRIK 08/19/2025 8:30 AM EST Clinical Support [address] [address] Mere Rios, RN 08/23/2025 9:30 AM EST Office Visit [address] [address] Jill Boudreaux MD [address] [place] [address] documented as of this encounter Visit Diagnoses Not on filedocumented in this encounter Additional Health Concerns Assessment Noted Time PHQ-9 Depression Total Score: 0 11/28/19 24 11:23 AM EDT documented as of this encounter Care Teams Finance Business Partner Relationship Specialty Start Date End Date Zahraa Roca DO [address] [place] [address] PCP - General Family Medicine 07/25/18 Christian Soria FNP [address] [place] [address] Nurse Practitioner Family Medicine 06/24/23 documented as of this encounter
--- OUTSIDE RECORDS SUMMARY | 2025-07-16 12:53 | XMS_ITS | Encounter Summary ---
Author Organization [employer] Address [address] [facility] [address] 7t [place] [address] Care Team Providers Care Mail Handler Name Role Phone Abelino Zahraa Primary Care Provider + [phone] Christian Soria Unavailable Unavailable Encounter Details Date Type Department Care Team (Late st Contact Info) Description 04/17/2024 Telephone [facility] 230 [place] [address] Lore Vargas DDS Social History Tobacco Use [...] 07/22/2025 8:30 AM EST Clinical Support [address] [address] Mere Rios, RN 07/29/2025 8:30 AM EST Clinical Support [address] [address] Mere Rios, RN 08/05/2025 8:30 AM EST Clinical Support [facility] [address] [place] [address] Mere Rios, RN 08/13/2025 9:00 AM EST Clinical Support [address] [address] Mere Rios, RN 08/19/2025 8:30 AM EST Clinical Support [address] [address] Mere Rios, RN 08/23/2025 9:30 AM EST Office Visit [address] [address] Jill Boudreaux MD 230 [place] [address] documented as of this encounter Visit Diagnoses Not on filedocumented in this encounter Additional Health Concerns Assessment Noted Time PHQ-9 Depression Total Score: 0 11/28/19 24 11:23 AM EDT documented as of this encounter Care Teams Mail Handler Relationship Specialty Start Date End Date Zahraa Roca DO 230 [place] [address] PCP - General Family Medicine 07/25/18 Christian Soria FNP [address] [place] [address] Nurse Practitioner Family Medicine 06/24/23 documented as of this encounter
--- OUTSIDE RECORDS SUMMARY | 2025-07-16 12:53 | XMS_ITS | Encounter Summary ---
Author Organization [email or web address] Address [address] [facility] [address] 7t [place] [address] Care Team Providers Care Quality Control Technician Name Role Phone AbelinoZahraa Primary Care Provider +[phone] Christian Soria Unavailable Unavailable Encounter Details Date Type Department Care Team (Latest Contact Info) Description 07/15/2025 Travel Social History Tobacco Use Types Packs/Day [...] Description 07/22/2025 8:30 AM EST Clinical Support [address] [address] Mere Rios, HENRIK 07/29/2025 8:30 AM EST Clinical Support [address] [address] Mere Rios, HENRIK 08/05/2025 8:30 AM EST Clinical Support [address] [address] Mere Rios, HENRIK 08/13/2025 9:00 AM EST Clinical Support [address] [address] Mere Rios, HENRIK 08/19/2025 8:30 AM EST Clinical Support [address] [address] Mere Rios, RN 08/23/2025 9:30 AM EST Office Visit [address] [address] Jill Boudreaux MD 230 [place] [address] documented as of this encounter Visit Diagnoses Not on filedocumented in this encounter Additional Health Concerns Assessment Noted Time PHQ-9 Depression Total Score: 16 025 3:09 PM EDT documented as of this encounter Care Teams Quality Control Technician Relationship Specialty Start Date End Date Zahraa Roca DO [address] [place] [address] PCP - General Family Medicine 07/25/18 Christian Soria FNP [address] [place] [address] Nurse Practitioner Family Medicine 06/24/23 documented as of this encounter
--- OUTSIDE RECORDS SUMMARY | 2025-07-16 12:53 | XMS_ITS | Encounter Summary ---
Author Organization [employer] Address 75 [facility] 7 [place] [address] Care Team Providers Care Funeral Sales Manager Name Role Phone Zahraa Roca DO Primary Care Provider [phone] Christian Soria Unavailable Unavailable Reason for Visit * Reason Onset Date Comments Nurse Triage 05/03/2025 Encounter Details Date Type Department Care Team ([facility] st Contact Info) Description 05/03/2025 Telephone [facility] MEDICINE 230 [place], [place] [phone] Zahraa Roca DO 230 [place], [place] [phone] Nurse Triage Social History Tobacco Use Types [...] this time as 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 Pt states rescheduled to Tuesday but [...] caller accepted this outcome. Contact pt at [phone] documented in this encounter Plan of Treatment Upcoming Encounters Date Type Department Care Team (Late st Contact Info) Description 07/22/2025 8:30 AM EST Clinical Support [facility] [place] [address] Mere Rios, RN 07/29/2025 8:30 AM EST Clinical Support [facility] [address] Mere Rios, RN 08/05/2025 8:30 AM EST Clinical Support [facility] [place], [place] [address] Mere Rios, RN 08/13/2025 9:00 AM EST Clinical Support [facility] [place] [address] Mere Rios, RN 08/19/2025 8:30 AM EST Clinical Support [facility] [place] [address] Mere Rios, RN 08/23/2025 9:30 AM EST Office Visit [facility] [place] [address] Jill Boudreaux MD [facility] [place] [address] documented as of this encounter Visit Diagnoses Not on filedocumented in this encounter Additional Health Concerns Assessment Noted Time PHQ-9 Depression Total Score: 16 10/16/ 025 3:09 PM EDT documented as of this encounter Care Teams Funeral Sales Manager Relationship Specialty Start Date End Date Zahraa Roca DO [facility] [place] [address] PCP - General Family Medicine 07/25/18 Christian Soria FNP [address] [place] [address] Nurse Practitioner Family Medicine 06/24/23 documented as of this encounter
--- OUTSIDE RECORDS SUMMARY | 2025-07-16 12:53 | XMS_ITS | Encounter Summary ---
Author Organization [employer] Address 75 [facility] 7t [place] [address] Care Team Providers Care Aluminum Boats Assembler Name Role Phone AbelinoZahraa Primary Care Provider [phone] Christian Soria Unavailable Unavailable Encounter Details Date Type Department Care Team (Late st Contact Info) Description 07/06/2022 Orders Only [facility] CHC MED & PEDS [address] [place], [place] [phone] Zahraa Andino LPN Social History Tobacco Use [...] Description 07/22/2025 8:30 AM EST Clinical Support [address] [address] Mere Rios, HENRIK 07/29/2025 8:30 AM EST Clinical Support [address] [address] Mere Rios, RN 08/05/2025 8:30 AM EST Clinical Support [address] [address] Mere Rios, RN 08/13/2025 9:00 AM EST Clinical Support [address] [address] Meer Rios, RN 08/19/2025 8:30 AM EST Clinical Support [address] [address] Mere Rios RN 08/23/2025 9:30 AM EST Office Visit [address] [address] Jill Boudreaux MD [address] [place] [address] documented as of this encounter Visit Diagnoses Not on filedocumented in this encounter Care Teams Aluminum Boats Assembler Relationship Specialty Start Date End Date Zahraa Roca DO [address] [place] [address] PCP - General Family Medicine 07/25/18 Christian Soria FNP [address] [place] [address] Nurse Practitioner Family Medicine 06/24/23 documented as of this encounter
--- OUTSIDE RECORDS SUMMARY | 2025-07-16 12:53 | XMS_ITS | Encounter Summary ---
Author Organization [employer] Address 75 [facility] 7 [place] [address] Care Team Providers Care Catcher Plug Name Role Phone Zahraa Roca DO Primary Care Provider [phone] Christian Soria Unavailable Unavailable Reason for Visit * Reason Onset Date Comments PT-1 04/17/2024 Encounter Details Date Type Department Care Team ([facility] st Contact Info) Description 04/17/2024 Telephone [facility] MEDICINE [address] [place], [place] [phone] Zahraa Roca DO 230 [place], [place] [phone] PT-1 Social History Tobacco Use Types Packs/Day [...] Y/N: Yes Provider name or facility name: [facility] Facility Address: [address] [place] [address] Escort needed: Y/N: No Do you have a wheelchair: Y/N: No If yes- Manual or electric: N/A Visits: Twice a month documented in this encounter Plan of Treatment Upcoming Encounters Date Type Department Care Team (Late st Contact Info) Description 07/22/2025 8:30 AM EST Clinical Support [address] [address] Mere Rios, RN 07/29/2025 8:30 AM EST Clinical Support [address] [address] Mere Rios, RN 08/05/2025 8:30 AM EST Clinical Support [address] [address] Mere Rios, RN 08/13/2025 9:00 AM EST Clinical Support [facility] [place] [address] Mere Rios, RN 08/19/2025 8:30 AM EST Clinical Support [facility] [place] [address] Mere Rios, RN 08/23/2025 9:30 AM EST Office Visit [address] [address] Jill [place] [address] documented as of this encounter Visit Diagnoses Not on filedocumented in this encounter Additional Health Concerns Assessment Noted Time PHQ-9 Depression Total Score: 0 11/28/19 24 11:23 AM EDT documented as of this encounter Care Teams Catcher Plug Relationship Specialty Start Date End Date [place] [address] PCP - General Family Medicine 07/25/18 Christian Soria FNP [address] [place] [address] Nurse Practitioner Family Medicine 06/24/23 documented as of this encounter
--- OUTSIDE RECORDS SUMMARY | 2025-07-16 12:53 | XMS_ITS | Encounter Summary ---
Author Organization [employer] Address 75 [facility] 7 [place] [address] Care Team Providers Care Sponge Clipper Name Role Phone Zahraa Roca DO Primary Care Provider [phone] Christian Soria Unavailable Unavailable Reason for Visit * Reason Onset Date Comments PT1 01/03/2024 Encounter Details Date Type Department Care Team ([facility] st Contact Info) Description 01/03/2024 Telephone [facility] MEDICINE 230 [place], [place] [phone] Zahraa Roca DO 230 [place], [place] [phone] PT1 Social History Tobacco Use Types Packs/Day [...] or facility name[facility] Facility Address: [address] [place] [address] Escort needed: Y/N: No Do you have a wheelchair: Y/N: No If yes- Manual or electric: none Visits: 7 days a week documented in this encounter Plan of Treatment Upcoming Encounters Date Type Department Care Team ([facility] Contact Info) Description 07/22/2025 8:30 AM EST Clinical Support [address] [address] Mere Rios, RN 07/29/2025 8:30 AM EST Clinical Support [address] [address] Mere Rios, RN 08/05/2025 8:30 AM EST Clinical Support [address] [address] Mere Rios, RN 08/13/2025 9:00 AM EST Clinical Support [address] [address] Mere Rios, RN 08/19/2025 8:30 AM EST Clinical Support [address] [address] Mere Rios RN 08/23/2025 9:30 AM EST Office Visit [facility] MEDICINE [address] [place] [address] Jill Boudreaux MD [address] [place] [address] documented as of this encounter Visit Diagnoses Not on filedocumented in this encounter Additional Health Concerns Assessment Noted Time PHQ-9 Depression Total Score: 0 11/28/19 24 11:23 AM EDT documented as of this encounter Care Teams Sponge Clipper Relationship Specialty Start Date End Date Zahraa Roca DO [address] [place] [address] PCP - General Family Medicine 07/25/18 Christian Soria FNP [address] [place] [address] Nurse Practitioner Family Medicine 06/24/23 documented as of this encounter
--- OUTSIDE RECORDS SUMMARY | 2025-07-16 12:53 | XMS_ITS | Encounter Summary ---
Author Organization [employer] Address 75 [facility] 7t [place] [address] Care Team Providers Care Costing Analyst Name Role Phone AbelinoZahraa Primary Care Provider [phone] Christian Soria Unavailable Unavailable Encounter Details Date Type Department Care Team (Late st Contact Info) Description 08/12/2022 Orders Only [facility] CHC MED & PEDS [address] [place] [address] Zahraa Andino LPN Social History Tobacco Use [...] Description 07/22/2025 8:30 AM EST Clinical Support [address] [address] Mere Rios, HENRIK 07/29/2025 8:30 AM EST Clinical Support [address] [address] Mere Rios, RN 08/05/2025 8:30 AM EST Clinical Support [address] [address] Mere Rios, RN 08/13/2025 9:00 AM EST Clinical Support [address] [address] Mere Rios, RN 08/19/2025 8:30 AM EST Clinical Support [address] [address] Mere Rios RN 08/23/2025 9:30 AM EST Office Visit [address] [address] Jill Boudreaux MD [address] [place] [address] documented as of this encounter Visit Diagnoses Not on filedocumented in this encounter Care Teams Costing Analyst Relationship Specialty Start Date End Date Zahraa Roca DO [address] [place] [address] PCP - General Family Medicine 07/25/18 Christian Soria FNP [address] [place] [address] Nurse Practitioner Family Medicine 06/24/23 documented as of this encounter
--- OUTSIDE RECORDS SUMMARY | 2025-07-16 12:53 | XMS_ITS | Encounter Summary ---
Author Organization [employer] Address 75 [facility] 7 [place] [address] Care Team Providers Care Community Leader Name Role Phone Zahraa Roca DO Primary Care Provider [phone] Christian Soria Unavailable Unavailable Reason for Visit * Reason Onset Date Comments Appointment Request 06/19/2024 Encounter Details Date Type Department Care Team ([facility] st Contact Info) Description 06/19/2024 Telephone [facility] MEDICINE 230 [place], [place] [phone] Zahraa Roca DO 230 [place], [place] [phone] Appointment Request Social History Tobacco Use Types [...] 8:30 AM EST Clinical Support [facility] [address] [place] [address], [place] [address] Mere Rios, RN 07/29/2025 8:30 AM EST Clinical Support [facility] [address] [place] [address], [place] [address] Mere Rios, RN 08/05/2025 8:30 AM EST Clinical Support [facility] [address] [place] [address], [place] [address] Mere Rios, RN 08/13/2025 9:00 AM EST Clinical Support [address] [place] [address] Mere Rios, RN 08/19/2025 8:30 AM EST Clinical Support [address] [place] [address] Mere Rios RN 08/23/2025 9:30 AM EST Office Visit [facility] MEDICINE [address] [place] [address] Jill Boudreaux MD [address] [place] [address] documented as of this encounter Visit Diagnoses Not on filedocumented in this encounter Additional Health Concerns Assessment Noted Time PHQ-9 Depression Total Score: 0 11/28/19 24 11:23 AM EDT documented as of this encounter Care Teams Community Leader Relationship Specialty Start Date End Date Zahraa Roca DO [address] [place] [address] PCP - General Family Medicine 07/25/18 Christian Soria FNP [address] [place] [address] Nurse Practitioner Family Medicine 06/24/23 documented as of this encounter
--- OUTSIDE RECORDS SUMMARY | 2025-07-16 12:53 | XMS_ITS | Encounter Summary ---
Author Organization [employer] Address [address] [facility] [address] 7t [place] [address] Care Team Providers Care Assistant Sales Director Name Role Phone Abelino Zahraa Primary Care Provider [phone] Christian Soria Unavailable Unavailable Reason for Visit * Reason Onset Date Comments UTOX Pos JYOTI, Neg BZO 07/15/2025 Forgot Clonazepam 07/15/2025 Encounter Details Date Type Department Care Team ([facility] st Contact Info) Description 07/15/2025 Telephone [facility] MEDICINE 230 [place] [address] Mere Rios, HENRIK UTOX Pos JYOTI, Neg BZO; Forgot Clonazepam Social History Tobacco Use Types Packs/Day Years [...] Telephone Encounter - Mere Rios RN - 07/15/2025 2:33 PM EST Pt forgot to bring his Clonazepam to [facility] appointment this morning. Pt agreed to come at 1pm today for his for his pill count. Pt did not come back in. TC to patient, no answer. Unable to leave message as mailbox was full. * Telephone Encounter - Mere Rios RN - 07/15/2025 10:13 AM EST Pt had [facility] RV appointment UTOX was Pos JYOTI, Neg BZO Stated he smoked marijuana with someone different this time and was sure the marijuana was 'clean.' UTOX sent out for confirmation. Forgot his Clonazepam, coming back this afternoon for his count. 07/10/25 - UTOX Pos JYOTI, Neg BZO / Conf. Pos BZO & JYOTI 07/01/25 - UTOX Pos JYOTI, Neg BZO / Conf. Pos JYOTI, Neg BZO 06/05/25 - UTOX Pos JYOTI, Neg BZO, not sent per PCP, admitted crack 2 days ago, last BZO over 5 days 05/20/25 - Random, UTOX Pos JYOTI, FENT Neg BZO / Conf. Pos JYOTI, Pos BZO, Neg FENT , No pills with him for count 05/06/25 - UTOX Pos. JYOTI / Conf. Pos JYOTI 11/19/24 - UTOX Neg BZO / Conf Pos BZO, Patient reports his recent urine tested positive for cocaine(on 11/14/24). 09/12/24 - UTOX Neg BZO/ Conf Neg BZO documented in this encounter Plan of Treatment Upcoming Encounters Date Type Department Care Team (Late st Contact Info) Description 07/22/2025 8:30 AM EST Clinical Support [address] [address] Mere Rios, RN 07/29/2025 8:30 AM EST Clinical Support [address] [address] Mere Rios, HENRIK 08/05/2025 8:30 AM EST Clinical Support [address] [address] Mere Rios, RN 08/13/2025 9:00 AM EST Clinical Support [address] [address] Mere Rios, HENRIK 08/19/2025 8:30 AM EST Clinical Support [address] [address] Mere Rios, RN 08/23/2025 9:30 AM EST Office Visit [address] [address] Jill Boudreaux MD [address] [place] [address] documented as of this encounter Visit Diagnoses Not on filedocumented in this encounter Additional Health Concerns Assessment Noted Time PHQ-9 Depression Total Score: 16 10/16/2 025 3:09 PM EDT documented as of this encounter Care Teams Assistant Sales Director Relationship Specialty Start Date End Date Zahraa Roca DO [address] [place] [address] PCP - General Family Medicine 07/25/18 Christian Soria FNP [address] [place] [address] Nurse Practitioner Family Medicine 06/24/23 documented as of this encounter
--- OUTSIDE RECORDS SUMMARY | 2025-07-16 12:53 | XMS_ITS | Encounter Summary ---
Author Organization [employer] Address 75 [facility] 7 [place] [address] Care Team Providers Care Complaint Manager Name Role Phone Zahraa Roca DO Primary Care Provider [phone] Christian Soria Unavailable Unavailable Reason for Visit * Reason Onset Date Comments PT-1 03/15/2024 Encounter Details Date Type Department Care Team ([facility] st Contact Info) Description 03/15/2024 Telephone [facility] MEDICINE 230 [place], [place] [phone] Zahraa Roca DO 230 [place], [place] [phone] PT-1 Social History Tobacco Use Types Packs/Day [...] Y/N: Yes Provider name or facility name: [facility] Facility Address: [address] [place] [address] Escort needed: Y/N: No Do you have a wheelchair: Y/N: No If yes- Manual or electric: no Visits: 3 documented in this encounter Plan of Treatment Upcoming Encounters Date Type Department Care Team (Late st Contact Info) Description 07/22/2025 8:30 AM EST Clinical Support [facility] [address] [place] [address] Mere Rios, HENRIK 07/29/2025 8:30 AM EST Clinical Support [facility] [address] [place] [address] Mere Rios, RN 08/05/2025 8:30 AM EST Clinical Support [facility] [address] [place] [address] Mere Rios, RN 08/13/2025 9:00 AM EST Clinical Support [facility] [address] [place] [address] Mere Rios, RN 08/19/2025 8:30 AM EST Clinical Support [address] [address] Mere Rios RN 08/23/2025 9:30 AM EST Office Visit [address] [address] Jill Boudreaux MD [address] [place] [address] documented as of this encounter Visit Diagnoses Not on filedocumented in this encounter Additional Health Concerns Assessment Noted Time PHQ-9 Depression Total Score: 0 11/28/19 24 11:23 AM EDT documented as of this encounter Care Teams Complaint Manager Relationship Specialty Start Date End Date Zahraa Roca DO [address] [place] [address] PCP - General Family Medicine 07/25/18 Christian Soria FNP [address] [place] [address] Nurse Practitioner Family Medicine 06/24/23 documented as of this encounter
--- OUTSIDE RECORDS SUMMARY | 2025-07-16 12:53 | XMS_ITS | Encounter Summary ---
Author Organization [employer] Address 75 [facility] 7 [place] [address] Care Team Providers Care Student Worker Name Role Phone Zahraa Roca DO Primary Care Provider [phone] Christian Soria Unavailable Unavailable Reason for Visit * Reason Onset Date Comments Referral 04/08/2025 Encounter Details Date Type Department Care Team ([facility] st Contact Info) Description 04/08/2025 Telephone [facility] [address] [place], [place] [phone] Zahraa Roca DO [address] [place], [place] [phone] Referral Social History Tobacco Use Types Packs/Day [...] the pt at home. Contact pt at [phone] Pt is requesting to speak with a nurse regarding referral. documented in this encounter Plan of Treatment Upcoming Encounters Date Type Department Care Team (Late st Contact Info) Description 07/22/2025 8:30 AM EST Clinical Support [facility] [address] [place] [address] Mere Rios, HENRIK 07/29/2025 8:30 AM EST Clinical Support [facility] [address] [place] [address] Mere Rios, HENRIK 08/05/2025 8:30 AM EST Clinical Support [address] [address] Mere Rios, RN 08/13/2025 9:00 AM EST Clinical Support [address] [address] Mere Rios, RN 08/19/2025 8:30 AM EST Clinical Support [address] [address] Mere Rios RN 08/23/2025 9:30 AM EST Office Visit [facility] [address] [place] [address] Jill Boudreaux MD [address] [place] [address] documented as of this encounter Visit Diagnoses Not on filedocumented in this encounter Additional Health Concerns Assessment Noted Time PHQ-9 Depression Total Score: 16 10/16/ 025 3:09 PM EDT documented as of this encounter Care Teams Student Worker Relationship Specialty Start Date End Date Zahraa Roca DO [address] [place] [address] PCP - General Family Medicine 07/25/18 Christian Soria FNP [address] [place] [address] Nurse Practitioner Family Medicine 06/24/23 documented as of this encounter
--- OUTSIDE RECORDS SUMMARY | 2025-07-16 12:53 | XMS_ITS | Clinical Summary ---
Author Organization [employer] Address [address] [facility] [address] [place] [address] Care Team Providers Care Pediatric Nurse Practitioner Name Role Phone AbelinoZahraa Primary Care Provider [phone] Christian Soria Unavailable Unavailable Allergies No known [...] at bedtime. 30 tablet 3 03/13/20 25 Active gabapentin (Neurontin) 300 MG capsule Take [...] 2025. 24 tablet 5 10:57 AM EST 11/ 025 Discontinued(Re order (will not trigger notification [...] any issues or concerns, he should contact [facility]. All his questions were answered. He agrees [...] Encounters Date Type Department Care Team Description 07/15/2025 10:00 AM EST Clinical Support [facility] [place] [address] Mere Rios, HENRIK Long-term current use of benzodiazepine (Primary Dx) 07/15/2025 Telephone [facility] [place] [address] Mere Rios RN UTOX Pos JYOTI, Neg BZO; Forgot Clonazepam 07/15/2025 Travel 07/10/2025 9:00 AM EST Clinical Support [facility] [place] [address] Mere Rios, HENRIK Long-term current use of benzodiazepine (Primary Dx) 07/10/2025 Refill [facility] [place] [address] Zahraa Roca DO Anxiety 07/10/2025 Refill [facility] [place] [address] Mere Rios RN Anxiety 07/10/2025 Travel 07/08/2025 Telephone [facility] [place] [address] Zahraa Roca DO Appointment Request 07/01/2025 9:30 AM EST Clinical Support [facility] [place] [address] Mere Rios, HENRIK Long-term current use of benzodiazepine (Primary Dx) 07/01/2025 Refill [facility] [place] [address] Zahraa Roca DO Anxiety 07/01/2025 Refill [facility] [place] [address] Mere Rios RN Anxiety 07/01/2025 Travel 06/17/2025 8:30 AM EST Clinical Support [facility] JANICE [place] Mere Rios RN Long-term current use of benzodiazepine (Primary Dx) 06/17/2025 Refill [facility] [place] [address] Mere Rios RN Anxiety 06/17/2025 Travel 06/17/2025 Refill [facility] [place] [address] Zahraa Roca DO Anxiety 06/14/2025 Telephone [facility] Zahraa Roca DO Prior Authorization (PA: Lidocaine 5% Patch) 06/05/2025 9:30 AM EST Office Visit [facility] [place] [address] Zahraa Roca DO Closed fracture of one rib of left side, initial encounter (Primary Dx); Anxiety 06/05/2025 9:30 AM EST Clinical Support [facility] [place] [address] Mere Rios RN Long-term current use of benzodiazepine (Primary Dx) 06/05/2025 Travel 06/03/2025 Telephone [facility] [place] [address] Mere Rios RN NCNS ENTRY REP RV; 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; Pt cancelled ENTRY REP RV same day 05/31/2025 Telephone [facility] [place] [address] Zahraa Roca DO 05/29/2025 Orders Only [facility] External Provider, [facility] 05/22/[address] [place] [address] Zahraa Roca, Med Refill 05/20/2025 11:00 AM EDT Clinical Support [address] [address] Mere Rios, HENRIK Long-term current use of benzodiazepine (Primary Dx) 05/20/[address] [address] Mere Rios RN Clonazepam count 05/20/[address] [address] Mere Rios, HENRIK Random ENTRY REP RV today; UTOX Pos JYOIT, FENT, Neg BZO; UTOX Confirmation 05/20/2025 Travel 05/20/[address] [address] Zahraa Roca, Appointment Request 05/14/2025 Outside Procedure [facility] [address] [place] [address] Gama, Aniyah, OD Presbyopia (Primary Dx) 05/09/[address] [address] Zahraa Roca, Anxiety 05/09/[address] [address] Zahraa Roca, DO Anxiety 05/06/2025 1:00 PM EDT Office Visit [facility] [address] [place] [address] GamaGaron, OD Hyperopia of both eyes (Primary Dx) 05/06/2025 9:30 AM EDT Clinical Support [address] [address] Mere Rios, HENRIK Long-term current use of benzodiazepine (Primary Dx) 05/06/[address] [address] Mere Rios, HENRIK SIDDHARTHA scoring; UTOX Pos JYOTI 05/06/2025 Travel 05/03/[address] [address] Zahraa Roca, DO Nurse Triage 05/03/2025 Refill [facility] [address] [place], [place] [phone] Zahraa Roca, DO Anxiety 04/29/2025 Telephone [facility] [address] [place], [place] [phone] Mere Rios, RN NCNS ENTRY REP RV today 04/18/2025 Refill [facility] [address] [place], [place] [phone] Zahraa Roca, DO Anxiety from Last 3 [...] Description 07/22/2025 8:30 AM EST Clinical Support [address] [place] [address] Mere Rios, HENRIK 07/29/2025 8:30 AM EST Clinical Support [address] [place] [address] Mere Rios, RN 08/05/2025 8:30 AM EST Clinical Support [facility] [place] [address] Mere Rios, RN 08/13/2025 9:00 AM EST Clinical Support [address] [facility] [place] [address] Mere Rios RN 08/19/2025 8:30 AM EST Clinical Support [address] [address] Mere Rios RN 08/23/2025 9:30 AM EST Office Visit [address] [address] Jill Boudreaux MD [address] [place] [address] Health Maintenance Due Date Last Done Comments [...] Completed 03/29/2023, 06/08/2022 HIV Screening Completed 03/13/2025, 04/07/2023, 06/15/2022, Additional history exists Pneumococcal Vaccine: 50+ [...] benzodiazepine POCT MARIO-14 URINE DRUG SCREEN Routine 07/10/2025 9:42 AM EST Long-term current use of benzodiazepine DRUG MONITOR, COCAINE METAB, QN, URINE Routine 07/10/2025 9:15 AM EST Long-term current use of benzodiazepine DRUG MONITORING, BENZODIAZEPINES, QUANTITATIVE, URINE Routine 07/10/2025 9:15 AM EST Long-term current use of benzodiazepine [...] Urine Drug Screen (07/15/2025 9:54 AM EST) Only the most recent of7 resultswithin the time period is included. THC Positive(A) Negative Cocaine Screen, Urine Positive(A) Negative Opiate Screen, Urine Negative Negative Methamphetamine Screen Urine Negative Negative Amphetamine Screen, Urine Negative Negative Benzodiazepines Screen, Urine Negative Negative Comment:ENTRY REP pt on CLonazepam Barbiturate Screen, Urine Negative [...] - 07/15/2025 9:54 AM EST UTOX cup Lot#[id number] Exp. 06/24/26 Internal Pass Control Zahraa Jurcsak DO POINT OF CARE TEST ENTER/JOANNA T ORDERABLES Final Result * Drug Monitoring, Benzodiazepines, Quantitative, Urine (07/10/2025 9:15 AM EST) Only the most recent of3 resultswithin the time period is included. Nordiazepam, GCMS Urine Negative [facility] Comment:Test Ordered Result CutoffLabDRUG MONITOR, BENZO, QN, [id number] NEGATIVE 50 ng/mLPERFORMING SITE:[facility] [employer], [address] [place] [address] Site Engineer: SOCRATES MATHIAS MD, CLIA:[id number] Oxazepam, GCMS Urine Negative [facility] Comment:Test Ordered Result CutoffLabDRUG MONITOR, BENZO, QN, [id number] NEGATIVE 50 ng/mLPERFORMING SITE:[facility] [employer] [facility], [address] [place] [address] Site Engineer: SOCRATES MATHIAS MD, CLIA:[id number] Lorazepam GCMS Urine Negative [facility] Comment:Test Ordered Result CutoffLabDRUG MONITOR, BENZO, QN, [id number] NEGATIVE 50 ng/mLPERFORMING SITE:[employer], [address] [place] [address] Site Engineer: SOCRATES MATHIAS MD, CLIA:[id number] Alprazolam, GCLA Urine Negative [facility] Comment:Test Ordered Result CutoffLabDRUG MONITOR, BENZO, QN, [id number] NEGATIVE 25 ng/mLPERFORMING SITE:[employer], [address] [place] [address] Site Engineer: SOCRATES MATHIAS MD, CLIA:[id number] Alphahydroxytriazolam, GCMS Ur Negative [facility] Comment:Test Ordered Result CutoffLabDRUG MONITOR, BENZO, QN, [id number] NEGATIVE 50 ng/mLPERFORMING SITE:[employer], [address] [place] [address] Site Engineer: SOCRATES MATHIAS MD, CLIA:[id number] Temazepam, GCMS Urine Negative [facility] Comment:Test Ordered Result CutoffLabDRUG MONITOR, BENZO, QN, [id number] NEGATIVE 50 ng/mLPERFORMING SITE:[facility] [employer] [facility], [address] [place] [address] Site Engineer: SOCRATES MATHIAS MD, CLIA:[id number] Alphahydroxymidazolam,GC MS Ur Negative [facility] Comment:Test Ordered Result CutoffLabDRUG MONITOR, BENZO, QN, [id number] NEGATIVE 50 ng/mLPERFORMING SITE:[facility] [employer] [facility], [address] [place] [address] Site Engineer: SOCRATES MATHIAS MD, CLIA:[id number] Aminoclonazepam, GCMS Urine 85 [facility] Comment:Test Ordered Result CutoffLabDRUG MONITOR, BENZO, QN, [id number] 85 25 ng/mLPERFORMING SITE:[facility] [employer] [facility], [address] [place] [address] Site Engineer: SOCRATES MATHIAS MD, CLIA:[id number] Flurazepam Metabolite,GCMS Ur Negative [facility] Comment:Test Ordered Result CutoffLabDRUG MONITOR, BENZO, QN, [id number] NEGATIVE 50 ng/mLPERFORMING SITE:[facility] [employer] [facility], [address] [place] [address] Site Engineer: SOCRATES MATHIAS MD, CLIA:[id number] Benzodiazepines Comments SEE NOTE [facility] Comment:NOTES AND COMMENTSTh is drug testing is for medical treatment only. Analysiswas performed as non-forensic testing and these resultsshould be used only by healthcare providers torender diagnosis or treatment, or to monitor progress ofmedical conditions.Benzodiazepines Notes:Aminoclonazepam detected is consistent with the use of thedrug Clonazepam.LDT Notes:Confirmation tests were developed and their analyticalperformance characteristics have been determined by [employer]. It has not been cleared orapproved by the FDA. This assay has been validated pursuantto the CLIA regulations and is used for clinical purposes.Healthcare Providers needing Interpretation assistance,please contact us at [phone] ( ) M-F,8am to 10pm EST Urine (Urine, Random) 07/10/2025 9:15 AM EST 07/10/2025 2:35 PM EST us Zahraa Roca DO LAB URINE ORDERABLES Final R esult [facility] [address] [place] [address] [phone] * Drug Monitoring, Cocaine Metabolite, Quantitative, Urine (07/10/2025 9:15 AM EST) Only the most recent of4 resultswithin the time period is included. Benzoylecgonine [address] [facility] Comment:Test Ordered Result CutoffLabDRUG MONITOR, COCAINE METAB, QN, [id number] [id number] 100 ng/mLPERFORMING SITE:[facility] [employer] [facility], [address] [place] [phone] Site Engineer: SOCRATES MATHIAS MD, CLIA:[id number] Cocaine Comments SEE NOTE [facility] Comment:NOTES AND COMMENTSTh is drug testing is for medical treatment only. Analysiswas performed as non-forensic testing and these resultsshould be used only by healthcare providers torender diagnosis or treatment, or to monitor progress ofmedical conditions.Cocaine Notes:Benzoylecgonine detected is consistent with the use of thedrug Cocaine.LDT Notes:Confirmation tests were developed and their analyticalperformance characteristics have been determined by [employer]. It has not been cleared orapproved by the FDA. This assay has been validated pursuantto the CLIA regulations and is used for clinical purposes.Healthcare Providers needing Interpretation assistance,please contact us at [phone] ( ) M-F,8am to 10pm EST Urine (Urine, Random) 07/10/2025 9:15 AM EST 07/10/2025 2:35 PM EST us Zahraa Roca DO LAB URINE ORDERABLES Final R esult [facility] [address] [place] [phone] * VASC US Lower Extremity Venous Insufficiency Bilateral (06/06/2025 11:00 AM EST) 06/06/2025 11:0 0 AM EST Narrative [facility] - 06/06/2025 12:28 PM EST [address] [address] Ultrasound Report Signed Patient: Cristobal Enriquez MR#: [id number] 54 : 1970 Acct:[id number] Age/Sex: 55 / M ADM Date: 06/06/25 Loc: .US Attending Dr: Everton Lawton MD Ordering Physician: Everton Lawton MD Date of Service: 06/06/25 Procedure(s): US venous insuf bilat Accession Number(s): [id number] cc: Zahraa Roca DO; Everton Lawton MD [...] by: Nancie Neil MD 06/06/2025 12:26 PM [facility] Dictated By: Nancie Neil MD Signed By: <Electronically signed by Nancie Neil MD in OV> 06/06/25 1226 DD/ 1100 TD/TT: 06/06/25 1135 Sand Miller: BERNABE Procedure Note Donotuseinterpreter, Image - 06/06/[address] [address] Ultrasound Report Signed Patient: Cristobal Enriquez JMR#: [id number] 54 : 1970Acct:[id number] Age/Sex: 55 / MADM Date: 06/06/25 Loc: HO.US Attending Dr: Everton Lawton MD Ordering Physician: Everton Lawton MD Date of Service: 06/06/25 Procedure(s): US venous insuf bilat Accession Number(s): [id number] cc: Zarhaa Roca DO; Everton Lawton MD Reason for [...] 06/06/25 1226 DD/ 1100 TD/TT: 06/06/25 1135 Sand Miller: BERNABE us [facility] External Provider CV VASC ULAR PROCEDURES Final Result Performing Organization Address City/State/[facility] Co de Phone Number [facility] [address] [place] [phone] * XR Ribs 3 Views Left w/ Chest (05/29/2025 11:52 AM EST) Anatomical Region Laterality Modality Radiographic Nara ging 05/29/2025 11:5 2 AM EST Narrative 05/29/2025 11:58 AM EST [address] [address] XRay Report Signed Patient: Cristobal Enriquez MR#: [id number] 54 : 1970 Acct:[id number] Age/Sex: 55 / M ADM Date: 05/29/25 Loc: .ED Attending Dr: Ordering Physician: Lynnette Rosado DO Date of Service: 05/29/25 Procedure(s): XR ribs LT min 3V w CXR1V Accession Number(s): [id number] cc: Lynnette Rosado DO; Zahraa Roca DO [...] Han MD in OV> 05/29/25 1155 DD/ 51 TD/TT: 05/29/25 1150 Sand Miller: Procedure Note Donotuseinterpreter, Image - 05/29/[address] [address] XRay Report Signed Patient: Cristobal Enriquez JMR#: [id number] 54 : 1970Acct:[id number] Age/Sex: 55 / MADM Date: 05/29/25 Loc: .ED Attending Dr: Ordering Physician: Lynnette Rosado DO Date of Service: 05/29/25 Procedure(s): XR ribs LT min 3V w CXR1V Accession Number(s): [id number] cc: Lynnette Rosado DO; Zahraa Roca DO [...] 05/29/25 1155 DD/ 1152 TD/TT: 05/29/25 1150 Sand Miller: us [facility] External Provider IMG XR PROCEDURES Final Result * Drug Monitoring, Fentanyl, with Confirmation, Urine (05/20/2025 12:30 PM EDT) Fentanyl, Ur NEGATIVE [facility] Comment:CUTOFF 0.5 NG/ML Norfentanyl, Ur NEGATIVE [facility] Comment:CUTOFF 0.5 NG/ML Fentanyl Note SEE NOTE [facility] Comment: NOTES AND COMMENTSThis drug testing is for medical treatment only. Analysiswas performed as non-forensic testing and these resultsshould be used only by healthcare providers to renderdiagnosis or treatment, or to monitor progress of medicalconditions. LDT Notes: Confirmation tests were developed andtheir analytical performance characteristics have beendetermined by [employer]. It has not been cleared orapproved by the FDA. This assay has been validated pursuantto the CLIA regulations and is used for clinical purposes.Healthcare Providers needing Interpretation assistance,please contact us at [phone] ( ) M-F,8am to 10pm ESTThis drug testing is for medical treatment only. Analysiswas performed as non-forensic testing and these resultsshould be used only by healthcare providers to renderdiagnosis or treatment, or to monitor progress of medicalconditions.PERFORMING SITE:[facility] [employer] [phone] LaboratoryDirector: FER ARREAGA MD, CLIA: [id number] Urine (Urine, Random) 05/20/2025 12:30 PM EDT 05/20/2025 4:29 PM EDT Zahraa Roca DO LAB URINE ORDERABLES Final R esult [facility] [address] [place] [phone] * (ABNORMAL) Drug Monitoring, Methadone Metabolite, Screen, Urine (05/20/2025 12:30 PM EDT) Methadone Screen, Urine Positive( A) Not Detect ng/mL [facility] Comment:Methadone cut-off is 300 ng/mL.Positive results are unconfirmed and should not be used fornon-medical purposes. Urine (Urine, Random) 05/20/2025 12:30 PM EDT 05/20/2025 4:29 PM EDT Zahraa Roca LAB URINE ORDERABLES Final R esult Performing Organization Address City/[facility]/ZIP Co de Phone Number [facility] [address] [place] [phone] * HIV-1/2 Antigen and Antibodies, Fourth Generation, with Reflexes (03/13/2025 10:55 AM EDT) [facility] HIV AB/AG Nonreactive Nonreactive [facility] Comment:HIV-1 p24 Ag and/or HIV-1/HIV-2 Ab not detected.A test result that is nonreactive does not exclude thepossibility of exposure to or infection with HIV-1 and/orHIV-2. Nonreactive results in this assay for individualswith prior exposure to HIV-1 and/or HIV-2 may be due toantigen and antibody levels that are below the limit ofdetection of this assay.The [employer] HIV Ag/Ab Combo assay result andsupplemental assay results should be interpreted inconjunction with the patient's clinical presentation,history and other laboratory results. If the results areinconsistent with clinical evidence, additional testing issuggested to confirm the result. Blood Venous blood specimen / Unknown 03/13/2025 10:55 AM EDT 03/13/2025 12:24 PM EDT Zahraa Roca [employer] LAB BLOOD ORDERABLES Final R esult Performing Organization Address City/[facility]/ZIP Co de Phone Number [facility] [address] [place] [phone] * Lipid Panel, Standard (03/13/2025 10:55 AM EDT) Triglycerides 68 <150 mg/dL [facility] Comment:Desirable Triglyceri de: less than 150 mg/dLBorderline High Triglyceride 150-199 mg/dLHigh Triglyceride: 200-499 mg/dLVery High Triglyceride: greater than or equal to 5OO mg/dL Cholesterol 150 <200 mg/dL [facility] Comment:Desirable Cholestero l: less than 200 mg/dLBorderline High Cholesterol: 200-239 mg/dLHigh Cholesterol: greater than 239 mg/dL LDL Cholesterol Calculated 89 <100 mg/dL [facility] Comment:Desirable LDL: less than 100 mg/dLNear Optimal/Above Optimal LDL: 110- 129 mg/dLBorderline High LDL: 130-159 mg/dLHigh LDL: 160-189 mg/dLVery High LDL: greater than or equal to 190 mg/dL HDL Cholesterol 48 >40 mg/dL [facility] Comment:Desirable HDL: great er than 40 mg/dL Note: This HDL assay may give artificially low results in patients with liver disease. Blood Venous blood specimen / Unknown 03/13/2025 10:55 AM EDT 03/13/2025 12:29 PM EDT Zahraa Roca DO LAB BLOOD ORDERABLES Final R esult [facility] [address] [place] [phone] * Colonoscopy (03/16/2023 9:43 AM EDT) Historical Provider HEALTH MAINTENANCE Final Result * Fecal Globin by Immunochemistry (07/13/2022 12:00 AM EST) Fecal Globin By Immunochemistry SEE NOTE [employer] [facility] Comment: FECAL GLOBIN BY IMMUNOCHEMISTRY Micro Number: [id number] Test Status: Final Specimen Source: Insure (tm) fobt test card Specimen Quality: Adequate Fecal Globin: Not Detected 07/13/2022 07/28/2022 8:2 7 AM EST us Zahraa Abelino DO LAB BODY FLUIDS AND STOOLS O RDERABLES Final Result [facility] [address] [facility] [place] [address] [facility] [address] , ([address]) [place] [address] from Last 3 Months or Most Recently Relevant to Health Maintenance Insurance [facility] STANDARD MEDICARE DENTAL-[facility] MEDICAID STAND ADULT Care Teams Pediatric Nurse Practitioner Relationship Specialty Start Date End Date Zahraa Roca DO [address] [place] [address] PCP - General Family Medicine 07/25/18 Christian Soria FNP [address] [place] [address] Nurse Practitioner Family Medicine 06/24/23
--- OUTSIDE RECORDS SUMMARY | 2025-07-16 12:54 | XMS_ITS | Encounter Summary ---
Author Organization [employer] Address [address] [facility] 7[address] [place] [address] Care Team Providers Care Embroidery Machine Operator Name Role Phone Abelino Zahraa Primary Care Provider [phone] Christian Soria Unavailable Unavailable Encounter Details Date Type Department Care Team (Late st Contact Info) Description 09/20/2022 Orders Only [facility] [address] [place] [address] Zahraa Andino LPN Social History Tobacco Use [...] Description 07/22/2025 8:30 AM EST Clinical Support [address] [address] Mere Rios, RN 07/29/2025 8:30 AM EST Clinical Support [address] [address] Mere Rios, RN 08/05/2025 8:30 AM EST Clinical Support [address] [address] Mere Rios, RN 08/13/2025 9:00 AM EST Clinical Support [address] [address] Mere Rios, HENRIK 08/19/2025 8:30 AM EST Clinical Support [address] [address] Mere Rios, HENRIK 08/23/2025 9:30 AM EST Office Visit [address] [address] Jill Boudreaux MD [address] [place] [phone] documented as of this encounter Visit Diagnoses Not on filedocumented in this encounter Additional Health Concerns Assessment Noted Time PHQ-9 Depression Total Score: 0 08/24/19 23 2:33 PM EST documented as of this encounter Care Teams Embroidery Machine Operator Relationship Specialty Start Date End Date Zahraa Roca DO [address] [place] [address] PCP - General Family Medicine 07/25/18 Christian Soria FNP [address] [place] [phone] Nurse Practitioner Family Medicine 06/24/23 documented as of this encounter
--- OUTSIDE RECORDS SUMMARY | 2025-07-16 12:54 | XMS_ITS | Encounter Summary ---
Author Organization [employer] Address [address] [place] [address] 7 [place] [address] Care Team Providers Care Soap Tender Name Role Phone Zahraa Roca DO Primary Care Provider [phone] Christian Soria Unavailable Unavailable Reason for Visit * Reason Onset Date Comments Med Refill 12/31/2022 Encounter Details Date Type Department Care Team (Late st Contact Info) Description 12/31/2022 Telephone [facility] MEDICINE 230 [place], [place] [phone] Zahraa Roca DO 230 [place], [place] [phone] Med Refill Social History Tobacco Use Types [...] Description 07/22/2025 8:30 [address] [place] [place] [address] Mere Rios, RN 07/29/2025 8:30 AM EST [address] [place] [address] Mere Rios, RN 08/05/2025 8:30 AM EST [address] [place] [address] Mere Rios, RN 08/13/2025 9:00 [address] [place] [address] Mere Rios, RN 08/19/2025 8:30 AM EST [address] [place] [address] Mere Rios, HENRIK 08/23/2025 9:[address] [place] [address] Jill Boudreaux MD [facility] [place] [address] documented as of this encounter Visit Diagnoses Not on filedocumented in this encounter Additional Health Concerns Assessment Noted Time PHQ-9 Depression Total Score: 0 08/24/19 23 2:33 PM EST documented as of this encounter Care Teams Soap Tender Relationship Specialty Start Date End Date [place] [address] PCP - General Family Medicine 07/25/18 Christian Soria FNP [facility] [place] [address] Nurse Practitioner Family Medicine 06/24/23 documented as of this encounter
--- OUTSIDE RECORDS SUMMARY | 2025-07-16 12:54 | XMS_ITS | Encounter Summary ---
Author Organization [employer] Address [address] [facility] [address] 7t [place] [address] Care Team Providers Care Entry Level Management Name Role Phone Abelino Zahraa Primary Care Provider + [phone] Christian Soria Unavailable Unavailable Encounter Details Date Type Department Care Team (Late st Contact Info) Description 11/03/2023 Orders Only [facility] MEDICINE 230 [place] [address] Provider, MD Hiral Social History Tobacco Use [...] Description 07/22/2025 8:30 AM EST Clinical Support [address] [address] Mere Rios, HENRIK 07/29/2025 8:30 AM EST Clinical Support [address] [address] Mere Rios, HENRIK 08/05/2025 8:30 AM EST Clinical Support [address] [address] Mere Rios, HENRIK 08/13/2025 9:00 AM EST Clinical Support [address] [address] Mere Rios, RN 08/19/2025 8:30 AM EST Clinical Support [address] [address] Mere Rios, RN 08/23/2025 9:30 AM EST Office Visit [address] [address] Jill Boudreaux MD [address] [place] [address] documented as of this encounter Procedures Procedure [...] as of this encounter Care Teams Entry Level Management Relationship Specialty Start Date End Date Zahraa Roca DO 230 [place] [address] PCP - General Family Medicine 07/25/18 Christian Soria FNP [address] [place] [address] Nurse Practitioner Family Medicine 06/24/23 documented as of this encounter
--- OUTSIDE RECORDS SUMMARY | 2025-07-16 12:54 | XMS_ITS | Encounter Summary ---
Author Organization [employer] Address 75 [facility] 7t [place] [address] Care Team Providers Care Pencil Sorter Name Role Phone Abelino Zahraa Primary Care Provider [phone] Christian Soria Unavailable Unavailable Encounter Details Date Type Department Care Team (Late st Contact Info) Description 10/21/2022 Orders Only [facility] MED & PEDS [address] [place] [address] Zahraa Andino LPN Social History Tobacco Use [...] 07/22/2025 8:30 AM EST Clinical Support [address] [address] Mere Rios, RN 07/29/2025 8:30 AM EST Clinical Support [address] [address] Mere Rios, RN 08/05/2025 8:30 AM EST Clinical Support [address] [address] Mere Rios, RN 08/13/2025 9:00 AM EST Clinical Support [address] [address] Mere Rios, HENRIK 08/19/2025 8:30 AM EST Clinical Support [address] [address] Mere Rios, HENRIK 08/23/2025 9:30 AM EST Office Visit [address] [address] Jill Boudreaux MD [address] [place] [address] documented as of this encounter Visit Diagnoses Not on filedocumented in this encounter Additional Health Concerns Assessment Noted Time PHQ-9 Depression Total Score: 0 08/24/19 23 2:33 PM EST documented as of this encounter Care Teams Pencil Sorter Relationship Specialty Start Date End Date Zahraa Roca DO [address] [place] [address] PCP - General Family Medicine 07/25/18 Christian Soria FNP [address] [place] [address] Nurse Practitioner Family Medicine 06/24/23 documented as of this encounter
--- OUTSIDE RECORDS SUMMARY | 2025-07-16 12:54 | XMS_ITS | Encounter Summary ---
Author Organization [employer] Address 75 [facility] 7t [place] [address] Care Team Providers Care Loss Control Manager Name Role Phone Zahraa Roca DO Primary Care Provider + [phone] Christian Soria Unavailable Unavailable Reason for Visit * Reason Comments Med Refill Encounter Details Date Type Department Care Team ([facility] st Contact Info) Description 05/09/2025 Refill [facility] MEDICINE 230 [place], [place] [phone] Zahraa Roca DO 230 [place], [place] [phone] Anxiety Social History Tobacco Use Types Packs/Day [...] 07/22/2025 8:30 AM EST Clinical Support [address] [address] Mere Rios, HENRIK 07/29/2025 8:30 AM EST Clinical Support [address] [address] Mere Rios, HENRIK 08/05/2025 8:30 AM EST Clinical Support [address] [address] Mere Rios, HENRIK 08/13/2025 9:00 AM EST Clinical Support [address] [address] Mere Rios, RN 08/19/2025 8:30 AM EST Clinical Support [address] [address] Mere Rios, RN 08/23/2025 9:30 AM EST Office Visit [address] [address] Jill Boudreaux MD [address] [place] [address] documented as of this encounter Visit Diagnoses Diagnosis Anxiety Anxiety state, unspecified documented in this encounter Additional Health Concerns Assessment Noted Time PHQ-9 Depression Total Score: 16 10/16/ 025 3:09 PM EDT documented as of this encounter Care Teams Loss Control Manager Relationship Specialty Start Date End Date Zahraa Roca DO 230 [place] [address] PCP - General Family Medicine 07/25/18 Christian Soria FNP 230 [place] [address] Nurse Practitioner Family Medicine 06/24/23 documented as of this encounter
--- OUTSIDE RECORDS SUMMARY | 2025-07-16 12:54 | XMS_ITS | Encounter Summary ---
Author Organization [employer] Address 75 [facility] 7t [place] [address] Care Team Providers Care Betting Agency Counter Clerk Name Role Phone Zahraa Roca DO Primary Care Provider + [phone] Christian Soria Unavailable Unavailable Reason for Visit * Reason Comments Med Refill Encounter Details Date Type Department Care Team ([facility] st Contact Info) Description 02/14/2025 Refill [facility] MEDICINE 230 [place], [place] [phone] Zahraa Roca DO 230 [place], [place] [phone] Anxiety Social History Tobacco Use Types Packs/Day [...] Description 07/22/2025 8:30 AM EST Clinical Support [address] [address] Mere Rios, HENRIK 07/29/2025 8:30 AM EST Clinical Support [address] [address] Mere Rios, HENRIK 08/05/2025 8:30 AM EST Clinical Support [address] [address] Mere Rios, HENRIK 08/13/2025 9:00 AM EST Clinical Support [address] [address] Mere Rios, RN 08/19/2025 8:30 AM EST Clinical Support [address] [address] Mere Rios, RN 08/23/2025 9:30 AM EST Office Visit [address] [address] Jill Boudreaux MD [address] [place] [address] documented as of this encounter Visit Diagnoses Diagnosis Anxiety Anxiety state, unspecified documented in this encounter Additional Health Concerns Assessment Noted Time PHQ-9 Depression Total Score: 16 10/16/ 025 3:09 PM EDT documented as of this encounter Care Teams Betting Agency Counter Clerk Relationship Specialty Start Date End Date Zahraa Roca DO 230 [place] [address] PCP - General Family Medicine 07/25/18 Christian Soria FNP 230 [place] [address] Nurse Practitioner Family Medicine 06/24/23 documented as of this encounter
--- OUTSIDE RECORDS SUMMARY | 2025-07-16 12:54 | XMS_ITS | Encounter Summary ---
Author Organization [employer] Address 75 [facility] 7 [place] [address] Care Team Providers Care Service Assistant Name Role Phone Zahraa Roca DO Primary Care Provider [phone] Christian Soria Unavailable Unavailable Reason for Visit * Reason Onset Date Comments Appointment Request 08/03/2024 Encounter Details Date Type Department Care Team ([facility] st Contact Info) Description 08/03/2024 Telephone [facility] MEDICINE 230 [place], [place] [phone] Zahraa Roca DO 230 [place], [place] [phone] Appointment Request Social History Tobacco Use Types [...] missed appointment with dermatology. Contact pt at [phone] documented in this encounter Plan of Treatment Upcoming Encounters Date Type Department Care Team (Late st Contact Info) Description 07/22/2025 8:30 AM EST Clinical Support [address] [address] Mere Rios, HENRIK 07/29/2025 8:30 AM EST Clinical Support [address] [address] Mere Rios, RN 08/05/2025 8:30 AM EST Clinical Support [address] [address] Mere Rios, RN 08/13/2025 9:00 AM EST Clinical Support [address] [address] Mere Rios, RN 08/19/2025 8:30 AM EST Clinical [place] [address] [place] [address] Mere Rios RN 08/23/2025 9:30 AM EST Office Visit [facility] MEDICINE [address] [place] [address] Jill Boudreaux MD [address] [place] [address] documented as of this encounter Visit Diagnoses Not on filedocumented in this encounter Additional Health Concerns Assessment Noted Time PHQ-9 Depression Total Score: 0 11/28/19 24 11:23 AM EDT documented as of this encounter Care Teams Service Assistant Relationship Specialty Start Date End Date Zahraa Roca DO [address] [place] [address] PCP - General Family Medicine 07/25/18 Christian Soria FNP [address] [place] [address] Nurse Practitioner Family Medicine 06/24/23 documented as of this encounter
--- OUTSIDE RECORDS SUMMARY | 2025-07-16 12:54 | XMS_ITS | Encounter Summary ---
Author Organization [employer] Address 75 [facility] 7 [place] [address] Care Team Providers Care Opto Mechanical Engineer Name Role Phone Zahraa Roca DO Primary Care Provider [phone] Christian Soria Unavailable Unavailable Reason for Visit * Reason Onset Date Comments PT-1 10/01/2024 Encounter Details Date Type Department Care Team ([facility] st Contact Info) Description 10/01/2024 Telephone [facility] MEDICINE 230 [place], [place] [phone] Zahraa Roca DO 230 [place], [place] [phone] PT-1 (/) Social History Tobacco Use Types [...] Tc from pt requesting for the Senior Sas Developer locations for all his Pt 1 to be changed to [address] [place] [address]. If any questions contact pt at [phone] documented in this encounter Plan of Treatment Upcoming Encounters Date Type Department Care Team (Late st Contact Info) Description 07/22/2025 8:30 AM EST Clinical Support [address] [place] [address] Mere iRos, HENRIK 07/29/2025 8:30 AM EST Clinical Support [address] [address] Mere Rios, RN 08/05/2025 8:30 AM EST Clinical Support [address] [address] Mere Rios, RN 08/13/2025 9:00 AM EST Clinical Support [address] [address] Mere Rios, RN 08/19/2025 8:30 AM EST Clinical Support [address] [address] Mere Rios RN 08/23/2025 9:30 AM EST Office Visit [address] [address] Jill Boudreaux MD [address] [place] [address] documented as of this encounter Visit Diagnoses Not on filedocumented in this encounter Additional Health Concerns Assessment Noted Time PHQ-9 Depression Total Score: 0 11/28/19 24 11:23 AM EDT documented as of this encounter Care Teams Opto Mechanical Engineer Relationship Specialty Start Date End Date Zahraa Roca DO [address] [place] [address] PCP - General Family Medicine 07/25/18 Christian Soria FNP [address] [place] [address] Nurse Practitioner Family Medicine 06/24/23 documented as of this encounter
--- OUTSIDE RECORDS SUMMARY | 2025-07-16 12:54 | XMS_ITS | Encounter Summary ---
Author Organization [employer] Address 75 [facility] 7t [place] [address] Care Team Providers Care Fur Drummer Name Role Phone Zahraa Roca DO Primary Care Provider [phone] Christian Soria Unavailable Unavailable Encounter Details Date Type Department Care Team (Late st Contact Info) Description 08/31/[address] [address] Zahraa Roca DO [address] [place] [address] Social History Tobacco Use Types Packs/Day Years [...] Description 07/22/2025 8:30 AM EST Clinical Support [address] [address] Mere Rios, HENRIK 07/29/2025 8:30 AM EST Clinical Support [address] [address] Mere Rios, RN 08/05/2025 8:30 AM EST Clinical Support [address] [address] Mere Rios, RN 08/13/2025 9:00 AM EST Clinical Support [address] [address] Mere Rios, HENRIK 08/19/2025 8:30 AM EST Clinical Support [address] [address] Mere Rios RN 08/23/2025 9:30 AM EST Office Visit [address] [address] Jill Boudreaux MD [address] [place] [address] documented as of this encounter Visit Diagnoses Not on filedocumented in this encounter Additional Health Concerns Assessment Noted Time PHQ-9 Depression Total Score: 0 08/24/19 23 2:33 PM EST documented as of this encounter Care Teams Fur Drummer Relationship Specialty Start Date End Date Zahraa Roca DO [address] [place] [address] PCP - General Family Medicine 07/25/18 Christian Soria FNP [address] [place] [address] Nurse Practitioner Family Medicine 06/24/23 documented as of this encounter
--- OUTSIDE RECORDS SUMMARY | 2025-07-16 12:54 | XMS_ITS | Encounter Summary ---
Author Organization [employer] Address [address] [place] [address] 7t [place] [address] Care Team Providers Care Maintenance Person Name Role Phone YudiZahraa barahona Primary Care Provider [phone] Christian Soria Unavailable Unavailable Reason for Visit * Reason Comments Med Refill Encounter Details Date Type Department Care Team (Late st Contact Info) Description 12/31/2022 Refill [facility] MEDICINE [address] [place] [address] Christian Soria FNP Anxiety Social History Tobacco [...] Description 07/22/2025 8:30 AM EST Clinical Support [facility] MEDICINE [address] [place] [address] Mere Rios, HENRIK 07/29/2025 8:30 AM EST Clinical Support [facility] MEDICINE [address] [place] [address] Mere Rios, RN 08/05/2025 8:30 AM EST Clinical Support [facility] MEDICINE [address] [place] [address] Mere Rios, HENRIK 08/13/2025 9:00 AM EST Clinical Support [facility] [place] [address] Mere Rios, HENRIK 08/19/2025 8:30 AM EST Clinical Support [facility] [place] [address] Mere Rios, HENRIK 08/23/2025 9:30 AM EST Office Visit [address] [address] Jill Boudreaux MD [address] [place] [address] documented as of this encounter Visit Diagnoses Diagnosis Anxiety Anxiety state, unspecified documented in this encounter Additional Health Concerns Assessment Noted Time PHQ-9 Depression Total Score: 0 08/24/19 23 2:33 PM EST documented as of this encounter Care Teams Maintenance Person Relationship Specialty Start Date End Date Zahraa Roca DO [address] [place] [address] PCP - General Family Medicine 07/25/18 Christian Soria FNP [address] [place] [address] Nurse Practitioner Family Medicine 06/24/23 documented as of this encounter
--- OUTSIDE RECORDS SUMMARY | 2025-07-16 12:54 | XMS_ITS | Encounter Summary ---
Author Organization [employer] Address 75 [facility] 7 [place] [address] Care Team Providers Care Office Technician Name Role Phone Zahraa Roca DO Primary Care Provider [phone] Christian Soria Unavailable Unavailable Reason for Visit * Reason Onset Date Comments PT-1 10/02/2024 Encounter Details Date Type Department Care Team ([facility] st Contact Info) Description 10/02/2024 Telephone [facility] MEDICINE 230 [place], [place] [phone] Zahraa Roca DO 230 [place], [place] [phone] PT-1 Social History Tobacco Use Types Packs/Day [...] status of Pt 1 Contact pt at [phone] * Telephone Encounter - Go Vasquez - 10/02/2024 9:06 AM EDT Patient calling requesting PT1 Home Address verified: Y/N: Yes Provider name or facility name: [facility] Care Resource [address] [address] Escort needed: Y/N: No Do you have a wheelchair: Y/N: No If yes- Manual or electric: Visits: (7 Days x Weekly) documented in this encounter Plan of Treatment Upcoming Encounters Date Type Department Care Team ([facility] st Contact Info) Description 07/22/2025 8:30 AM EST Clinical Support [address] [address] Mere Rios, HENRIK 07/29/2025 8:30 AM EST Clinical Support [place] [address] Mere Rios, RN 08/05/2025 8:30 AM EST Clinical Support [place] [address] Mere Rios, HENRIK 08/13/2025 9:00 AM EST Clinical Support [place] [address] Mere Rios, HENRIK 08/19/2025 8:30 AM EST Clinical Support [place] [address] Mere Rios, HENRIK 08/23/2025 9:30 AM EST Office [place] [address] Jill Boudreaux MD [facility] [place] [address] documented as of this encounter Visit Diagnoses Not on filedocumented in this encounter Additional Health Concerns Assessment Noted Time PHQ-9 Depression Total Score: 0 11/28/19 24 11:23 AM EDT documented as of this encounter Care Teams Office Technician Relationship Specialty Start Date End Date Zahraa Roca DO [facility] [place] [address] PCP - General Family Medicine 07/25/18 [place] [address] Nurse Practitioner Family Medicine 06/24/23 documented as of this encounter
--- OUTSIDE RECORDS SUMMARY | 2025-07-16 12:54 | XMS_ITS | Encounter Summary ---
Author Organization [employer] Address [address] [place] [address] 7t [place] [address] Care Team Providers Care Returned Case Inspector Name Role Phone YudiZahraa barahona Primary Care Provider + [phone] Christian Soria Unavailable Unavailable Reason for Visit * Reason Comments Med Refill Encounter Details Date Type Department Care Team (Late st Contact Info) Description 12/19/2022 Refill [facility] MEDICINE [address] [place] [address] Christian Soria FNP Anxiety Social History Tobacco [...] Description 07/22/2025 8:30 AM EST Clinical Support [facility] MEDICINE [address] [place] [address] Mere Rios RN 07/29/2025 8:30 AM EST Clinical Support [facility] MEDICINE [address] [place] [address] Mere Rios, HENRIK 08/05/2025 8:30 AM EST Clinical Support [facility] [place] [address] Mere Rios, RN 08/13/2025 9:00 AM EST Clinical Support [facility] [place] [address] Mere Rios, RN 08/19/2025 8:30 AM EST Clinical Support [facility] [place] [address] Mere Rios, HENRIK 08/23/2025 9:30 AM EST Office Visit [address] [address] Jill [place] [address] documented as of this encounter Visit Diagnoses Diagnosis Anxiety Anxiety state, unspecified documented in this encounter Additional Health Concerns Assessment Noted Time PHQ-9 Depression Total Score: 0 08/24/19 23 2:33 PM EST documented as of this encounter Care Teams Returned Case Inspector Relationship Specialty Start Date End Date [place] [address] PCP - General Family Medicine 07/25/18 Christian Soria FNP [address] [place] [address] Nurse Practitioner Family Medicine 06/24/23 documented as of this encounter
--- OUTSIDE RECORDS SUMMARY | 2025-07-16 12:54 | XMS_ITS | Encounter Summary ---
Author Organization [employer] Address 75 [facility] 7t [place] [address] Care Team Providers Care Reheater Helper Name Role Phone Zahraa Roca DO Primary Care Provider + [phone] Christian Soria Unavailable Unavailable Reason for Visit * Reason Comments Med Refill Encounter Details Date Type Department Care Team ([facility] st Contact Info) Description 07/01/2025 Refill [facility] MEDICINE 230 [place], [place] [phone] Zahraa Roca DO 230 [place], [place] [phone] Anxiety Social History Tobacco Use Types Packs/Day [...] Description 07/22/2025 8:30 AM EST Clinical Support [address] [address] Mere Rios, HENRIK 07/29/2025 8:30 AM EST Clinical Support [address] [address] Mere Rios, HENRIK 08/05/2025 8:30 AM EST Clinical Support [address] [address] Mere Rios, HENRIK 08/13/2025 9:00 AM EST Clinical Support [address] [address] Mere Rios, RN 08/19/2025 8:30 AM EST Clinical Support [address] [address] Mere Rios, RN 08/23/2025 9:30 AM EST Office Visit [address] [address] Jill Boudreaux MD [address] [place] [address] documented as of this encounter Visit Diagnoses Diagnosis Anxiety Anxiety state, unspecified documented in this encounter Additional Health Concerns Assessment Noted Time PHQ-9 Depression Total Score: 16 10/16/ 025 3:09 PM EDT documented as of this encounter Care Teams Reheater Helper Relationship Specialty Start Date End Date Zahraa Roca DO 230 [place] [address] PCP - General Family Medicine 07/25/18 Christian Soria FNP 230 [place] [address] Nurse Practitioner Family Medicine 06/24/23 documented as of this encounter
--- OUTSIDE RECORDS SUMMARY | 2025-07-16 12:54 | XMS_ITS | Encounter Summary ---
Author Organization [employer] Address 75 [facility] 7t [place] [address] Care Team Providers Care Herd Tester Name Role Phone Zahraa Roca DO Primary Care Provider [phone] Christian Soria Unavailable Unavailable Reason for Visit * Reason Onset Date Comments Appt question 08/09/2024 Encounter Details Date Type Department Care Team ([facility] st Contact Info) Description 08/09/2024 Telephone [facility] MEDICINE [address] [place], [place] [phone] Zahraa Roca DO 230 [place], [place] [phone] Appt question Social History Tobacco Use Types [...] aug appt its for that. Any questions [phone] documented in this encounter Plan of Treatment Upcoming Encounters Date Type Department Care Team (Late st Contact Info) Description 07/22/2025 8:30 AM EST Clinical Support [facility] MEDICINE [address] [place] [address], [place] [address] Mere Rios, HENRIK 07/29/2025 8:30 AM EST Clinical Support [facility]INE [address] [place] [address], [place] [address] Mere Rios, HENRIK 08/05/2025 8:30 AM EST Clinical Support [facility] [place] [address] Mere Rios, HENRIK 08/13/2025 9:00 AM EST Clinical Support [address] [place] [address] Mere Rios RN 08/19/2025 8:30 AM EST Clinical Support [address] [address] Mere Rios RN 08/23/2025 9:30 AM EST Office Visit [address] [address] Jill Boudreaux MD [address] [place] [address] documented as of this encounter Visit Diagnoses Not on filedocumented in this encounter Additional Health Concerns Assessment Noted Time PHQ-9 Depression Total Score: 0 11/28/19 24 11:23 AM EDT documented as of this encounter Care Teams Herd Tester Relationship Specialty Start Date End Date Zahraa Roca DO [address] [place] [address] PCP - General Family Medicine 07/25/18 Christian Soria FNP [address] [place] [address] Nurse Practitioner Family Medicine 06/24/23 documented as of this encounter
--- OUTSIDE RECORDS SUMMARY | 2025-07-16 12:54 | XMS_ITS | Encounter Summary ---
Author Organization [employer] Address [address] [facility] [address] 7t [place] [address] Care Team Providers Care Shipping Associate Name Role Phone Zahraa Roca DO Primary Care Provider + [phone] Christian Soria Unavailable Unavailable Encounter Details Date Type Department Care Team (Late st Contact Info) Description 10/10/2024 Orders Only [facility] MEDICINE 230 [place], [place] [phone] Zahraa Roca DO 230 [place] [address] Social History Tobacco Use Types Packs/Day Years [...] Description 07/22/2025 8:30 AM EST Clinical Support [address] [address] Mere Rios, HENRIK 07/29/2025 8:30 AM EST Clinical Support [address] [address] Mere Rios, RN 08/05/2025 8:30 AM EST Clinical Support [address] [address] Mere Rios, HENRIK 08/13/2025 9:00 AM EST Clinical Support [address] [address] Mere Rios, HENRIK 08/19/2025 8:30 AM EST Clinical Support [address] [address] Mere Rios, RN 08/23/2025 9:30 AM EST Office Visit [address] [address] Jill Boudreaux MD [address] [place] [address] documented as of this encounter Visit Diagnoses Not on filedocumented in this encounter Additional Health Concerns Assessment Noted Time PHQ-9 Depression Total Score: 0 11/28/19 24 11:23 AM EDT documented as of this encounter Care Teams Shipping Associate Relationship Specialty Start Date End Date Zahraa Roca DO 230 [place] [address] PCP - General Family Medicine 07/25/18 Christian Soria FNP 230 [place] [address] Nurse Practitioner Family Medicine 06/24/23 documented as of this encounter
--- OUTSIDE RECORDS SUMMARY | 2025-07-16 12:54 | XMS_ITS | Encounter Summary ---
Author Organization [employer] Address 75 [facility] 7 [place] [address] Care Team Providers Care Business Control Manager Name Role Phone Zahraa Roca DO Primary Care Provider [phone] Christian Soria Unavailable Unavailable Reason for Visit * Reason Onset Date Comments PT1 10/24/2024 Encounter Details Date Type Department Care Team ([facility] st Contact Info) Description 10/24/2024 Telephone [facility] MED[facility]INE 230 [place], [place] [phone] Zahraa Roca DO 230 [place], [place] [phone] PT1 Social History Tobacco Use Types Packs/Day [...] [facility] [address] Escort needed: Y/N: No Visits: 3x a month for 1 year 3.) Patient calling requesting PT1 Home Address verified: Y/N: Yes Provider name or facility name: Everton Lawton MD Facility Address: [address], [place] [address] Escort needed: Y/N: No Visits: 3 x a month for 1 year 4.) Patient calling requesting PT1 Home Address verified: Y/N: Yes Provider name or facility name: PCP and dental appt Facility Address: [address] [facility] [address] Escort needed: Y/N: No Visits: 4x a month for 1 year documented in this encounter Plan of Treatment Upcoming Encounters Date Type Department Care Team (Late st Contact Info) Description 07/22/2025 8:30 AM EST Clinical Support [facility] [place] [address] Mere Rios, RN 07/29/2025 8:30 AM EST Clinical Support [facility] [place] [address] Mere Rios, RN 08/05/2025 8:30 AM EST Clinical Support [facility] [place] [address] Mere Rios, RN 08/13/2025 9:00 AM EST Clinical Support [facility] [place] [address] Mere Rios, HENRIK 08/19/2025 8:30 AM EST Clinical Support [facility] [place] [address] Mere Rios, HENRIK 08/23/2025 9:30 AM EST Office Visit [facility] [place] [address] Jill Boudreaux MD [facility] [place] [address] documented as of this encounter Visit Diagnoses Not on filedocumented in this encounter Additional Health Concerns Assessment Noted Time PHQ-9 Depression Total Score: 16 10/16/2 025 3:09 PM EDT documented as of this encounter Care Teams Business Control Manager Relationship Specialty Start Date End Date [place] [address] PCP - General Family Medicine 07/25/18 Christian Soria FNP [facility] [place] [address] Nurse Practitioner Family Medicine 06/24/23 documented as of this encounter
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
--- OUTSIDE RECORDS SUMMARY | 2025-07-16 12:54 | XMS_ITS | Encounter Summary ---
Author Organization [employer] Address 75 [facility] 7t [place] [address] Care Team Providers Care Painting Department Supervisor Name Role Phone Zahraa Roca DO Primary Care Provider + [phone] Christian Soria Unavailable Unavailable Reason for Visit * Reason Comments Med Refill Encounter Details Date Type Department Care Team ([facility] st Contact Info) Description 07/10/2025 Refill [facility] MEDICINE 230 [place], [place] [phone] Zahraa Roca DO 230 [place], [place] [phone] Anxiety Social History Tobacco Use Types Packs/Day [...] Description 07/22/2025 8:30 AM EST Clinical Support [address] [address] Mere Rios, HENRIK 07/29/2025 8:30 AM EST Clinical Support [address] [address] Mere Rios, HENRIK 08/05/2025 8:30 AM EST Clinical Support [address] [address] Mere Rios, HENRIK 08/13/2025 9:00 AM EST Clinical Support [address] [address] Mere Rios, RN 08/19/2025 8:30 AM EST Clinical Support [address] [address] Mere Rios, RN 08/23/2025 9:30 AM EST Office Visit [address] [address] Jill Boudreaux MD [address] [place] [address] documented as of this encounter Visit Diagnoses Diagnosis Anxiety Anxiety state, unspecified documented in this encounter Additional Health Concerns Assessment Noted Time PHQ-9 Depression Total Score: 16 10/16/ 025 3:09 PM EDT documented as of this encounter Care Teams Painting Department Supervisor Relationship Specialty Start Date End Date Zahraa Roca DO 230 [place] [address] PCP - General Family Medicine 07/25/18 Christian Soria FNP 230 [place] [address] Nurse Practitioner Family Medicine 06/24/23 documented as of this encounter
== END 2025-07-15 11:30 | disposition home or self-care (01) ==
LOC: HO.LNP 11:29
PROVIDERS: Visit Provider Family Medicine
DX: Z79.899 Other long term (current) drug therapy (principal)
CPT/HCPCS: 80346; 80353

== ENCOUNTER 2025-07-22 17:35 | Outpatient (REF) | payer MEDICARE, MEDICAID, SELFPAY ==
--- OUTSIDE RECORDS SUMMARY | 2025-07-22 08:30 | XMS_ITS | Encounter Summary ---
Author Organization [employer] Address 75 [facility] 7t [place] [address] Care Team Providers Care Child Care Provider Name Role Phone AbelinoZahraa Primary Care Provider + [phone] Christian Soria Unavailable Unavailable Reason for Visit * Reason Comments PATIENT REGISTRATION REP RV Encounter Details Date Type Department Care Team (Latest Contact Info) Description 07/22/2025 8:30 AM EST Clinical Support [facility] MEDICINE 230 [place] [address] Mere Rios RN Long-term current use of [...] Progress Notes * Mere Rios RN - 07/22/2025 8:30 AM EST SUBJECTIVE: Cristobal Enriquez is a 55 y.o. year old male who presents for PATIENT REGISTRATION REP RV Preferred language for medical information: Welsh Cristobal Enriquez does not report adherence to Clonazepam (Klonopin) 1 mg, take 1 tablet every 12 hours PRN, last refilled 07/10/2025. States he takes between 2-2.5 doses a day The patient last took Clonazepam (Klonopin) on: 07/22/25 Medication effective: Yes Sleep habits: no issues Therapist: Yes Pt forgot to bring his Clonazepam to 07/15/25. Arrainged for him to come back later that day with his Clonazepam for his count. Patient did not come back in. PCP updated. Pt stated he met with his counselor at the Methadone clinic, where his urine also tested positive for cocaine, so he wasn't ableto come back for his count. Pt stated he's going to meet with his methadone counselor weekly for now as well. 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 Reviewed his Clonazepam order. Reminded him he is not able to get early refills. Advised pt to takeas ordered. Last PCP visit: 06/05/2025 SIDDHARTHA-7 Total Score: 11 (05/06/2025 10:13 AM) Controlled substance agreement signed: Controlled Substance Agreement 09/12/2024 PATIENT REGISTRATION REP Tier: 1, weekly PATIENT REGISTRATION REP visits before refill Clonazepam Current Medications[1] Smoking status: Denies ETOH use: Denies Illicit substances: Denies Marijuana use: Yes, Marijuana card: No , Marijuana Acquired from: Dispensary Lab Results Component Value Date POCTHC Positive (A) 07/22/2025 POCCOCAINEUR Negative 07/22/2025 POCOPIATEUR Negative 07/22/2025 DOAUR Negative 07/22/2025 POCAMPHETAMI Negative 07/22/2025 POCBENZODIUR Negative 07/22/2025 POCBARBSCRN Negative 07/22/2025 POCMETHADOUR Positive (A) 07/22/2025 POCBUPSCRN Negative 07/22/2025 POCTCAUR Negative 07/22/2025 POCMDMAUR Negative 07/22/2025 POCOXYCODONE Negative 07/22/2025 POCPHENCYCUR Negative 07/22/2025 PROPOXUR Negative 07/15/2025 FENTANYLURIN Negative 07/22/2025 Pt very happy. Stated he's finally clean again. Stated he's gotten his marijuana from a dispensary and feels so much better. Reviewed UTOX results, explained I would send out for BZO confirmation. ASSESSMENT: Encounter Diagnosis Name Primary? Long-term current use of benzodiazepine Yes PLAN: Information on acupuncture given: Previously discussed Narcan education provided: Previously discussed Narcan prescription: active Will send request to PCP for Clonazepam refill, update on clonazepam count and UTOX results. Cristobal Enriquez will continue taking medication as prescribed and follow up at the next PATIENT REGISTRATION REP visit orsooner if needed. Cristobal Enriquez has verbalized understanding of care plan. Future Appointments Date Time Provider Department Center 07/29/2025 8:30 AM Mere Rios RN [facility] 08/05/2025 8:30 AM Mere Rios RN [facility] 08/13/2025 9:00 AM Mere Rios RN [facility] 08/19/2025 8:30 AM Mere Rios RN [facility] 08/23/2025 9:30 AM Jill Boudreaux MD [facility] Mere Rios RN [1] Current Outpatient Medications: [...] Care Team (Late st Contact Info) Description 07/29/2025 8:30 AM EST Clinical Support [address] [address] Mere Riso, HENRIK 08/05/2025 8:30 AM EST Clinical Support [address] [address] Mere Rios, HENRIK 08/13/2025 9:00 AM EST Clinical Support [address] [address] Mere Rios, HENRIK 08/19/2025 8:30 AM EST Clinical Support [address] [address] Mere Rios RN 08/23/2025 9:30 AM EST Office Visit [address] [address] Jill Boudreaux MD [address] [place] [address] Scheduled Orders Name Type Priority Associated Diagnoses Orde r Schedule Drug Monitoring, Benzodiazepines, Quantitative, Urine Lab Routine Long-term current use of benzodiazepine Ordered: 07/22/2025 documented as of this encounter Procedures Procedure Name Priority Date/Time Associated Diagnosis Comments POCT MARIO-14 URINE DRUG SCREEN Routine 07/22/2025 8:41 AM EST Long-term current use of benzodiazepine documented in this encounter Results * (ABNORMAL) POCT MARIO-14 Urine Drug Screen (07/22/2025 8:41 AM EST) [facility] Amphetamine Screen, Urine Negative Negative Barbiturate Screen, Urine Negative Negative Buprenophine Screen, Urine Negative Negative Benzodiazepines Screen, Urine Negative Negative Comment:PATIENT REGISTRATION REP pt on Clonazepam Cocaine Screen, Urine Negative Negative Fentanyl, Urine Negative Negative MDMA Urine Negative Negative ng/mL Methamphetamine Screen Urine Negative Negative Opiate Screen, Urine Negative Negative Methadone Screen, Urine Positive(A) Negative Oxycodone Screen, Urine Negative Negative Phencyclidine (PCP), Urine Negative Negative TCA, Urine Negative Negative THC Positive(A) Negative Urine Urine specimen obtained by clean catch procedure / Unknown 07/22/2025 8:41 AM EST Mere Smalls RN - 07/22/2025 8:41 AM EST UTOX cup Lot#[id number] Exp. 06/24/26 Internal Pass Control Zahraa Roca DO POINT OF CARE TEST ENTER/JOANNA T ORDERABLES Final Result documented in this encounter Visit Diagnoses Diagnosis Long-term current use of benzodiazepine- Primary documented in this encounter Additional Health Concerns Assessment Noted Time PHQ-9 Depression Total Score: 16 10/16/ 025 3:09 PM EDT documented as of this encounter Care Teams Child Care Provider Relationship Specialty Start Date End Date Zahraa Roca DO 230 [place] [address] PCP - General Family Medicine 07/25/18 Christian Soria FNP [address] [place] [address] Nurse Practitioner Family Medicine 06/24/23 documented as of this encounter
--- OUTSIDE RECORDS SUMMARY | 2025-07-22 18:09 | XMS_ITS | Encounter Summary ---
Author Organization [employer] Address 75 [facility] 7 [place] [address] Care Team Providers Care Electrical Integrator Name Role Phone Zahraa Roca DO Primary Care Provider [phone] Christian Soria Unavailable Unavailable Reason for Visit * Reason Onset Date Comments PT-1 04/17/2024 Encounter Details Date Type Department Care Team ([facility] st Contact Info) Description 04/17/2024 Telephone [facility] MEDICINE 230 [place], [place] [phone] Zahraa Roca DO 230 [place], [place] [phone] PT-1 Social History Tobacco Use Types Packs/Day [...] Y/N: Yes Provider name or facility name: [facility] Facility Address: [address] [place] [address] Escort needed: Y/N: No Do you have a wheelchair: Y/N: No If yes- Manual or electric: N/A Visits: Twice a month documented in this encounter Plan of Treatment Upcoming Encounters Date Type Department Care Team (Late st Contact Info) Description 07/29/2025 8:30 AM EST Clinical Support [address] [address] Mere Rios, RN 08/05/2025 8:30 AM EST Clinical Support [facility] MEDICINE [address] [place] [address] Mere Rios, RN 08/13/2025 9:00 AM EST Clinical Support [address] [address] Mere Rios, RN 08/19/2025 8:30 AM EST Clinical Support [address] [address] Mere Rios RN 08/23/2025 9:30 AM EST Office Visit [address] [address] Jill Boudreaux MD [address] [place] [address] documented as of this encounter Visit Diagnoses Not on filedocumented in this encounter Additional Health Concerns Assessment Noted Time PHQ-9 Depression Total Score: 0 11/28/19 24 11:23 AM EDT documented as of this encounter Care Teams Electrical Integrator Relationship Specialty Start Date End Date Zahraa Roca DO [address] [place] [address] PCP - General Family Medicine 07/25/18 Christian Soria FNP [address] [place] [address] Nurse Practitioner Family Medicine 06/24/23 documented as of this encounter
--- OUTSIDE RECORDS SUMMARY | 2025-07-22 18:09 | XMS_ITS | Encounter Summary ---
Author Organization [employer] Address 75 [facility] 7 [place] [address] Care Team Providers Care Kettle Skimmer Name Role Phone Zahraa Roca DO Primary Care Provider [phone] Christian Soria Unavailable Unavailable Reason for Visit * Reason Onset Date Comments Referral 04/08/2025 Encounter Details Date Type Department Care Team ([facility] st Contact Info) Description 04/08/2025 Telephone [facility] MEDICINE 230 [place], [place] [phone] Zahraa Roca DO 230 [place], [place] [phone] Referral Social History Tobacco Use Types Packs/Day [...] the pt at home. Contact pt at [phone] Pt is requesting to speak with a nurse regarding referral. documented in this encounter Plan of Treatment Upcoming Encounters Date Type Department Care Team (Late st Contact Info) Description 07/29/2025 8:30 AM EST Clinical Support [facility] MEDICINE [address] [place] [address] Mere Rios, HENRIK 08/05/2025 8:30 AM EST Clinical Support [address] [address] Mere Rios, HENRIK 08/13/2025 9:00 AM EST Clinical Support [address] [address] Mere Rios, RN 08/19/2025 8:30 AM EST Clinical Support [address] [address] Mere Rios, RN 08/23/2025 9:30 AM EST Office Visit [address] [address] Jill Boudreaux MD 230 [place] [address] documented as of this encounter Visit Diagnoses Not on filedocumented in this encounter Additional Health Concerns Assessment Noted Time PHQ-9 Depression Total Score: 16 10/16/2 025 3:09 PM EDT documented as of this encounter Care Teams Kettle Skimmer Relationship Specialty Start Date End Date Zahraa Roca DO [address] [place] [address] PCP - General Family Medicine 07/25/18 Christian Soria FNP [address] [place] [address] Nurse Practitioner Family Medicine 06/24/23 documented as of this encounter
--- OUTSIDE RECORDS SUMMARY | 2025-07-22 18:09 | XMS_ITS | Encounter Summary ---
Author Organization [employer] Address 75 [facility] [address] 7t [place] [address] Care Team Providers Care Industrial Organizational Psychologist Name Role Phone Abelino Zahraa Primary Care Provider + [phone] Christian Soria Unavailable Unavailable Encounter Details Date Type Department Care Team (Late st Contact Info) Description 04/17/2024 Telephone [facility] 230 [place] [address] Lore Vargas DDS Social History Tobacco Use [...] Description 07/29/2025 8:30 AM EST Clinical Support [address] [address] Mere Rios, RN 08/05/2025 8:30 AM EST Clinical Support [address] [address] Mere Rios, RN 08/13/2025 9:00 AM EST Clinical Support [facility] MEDICINE [address] [place] [address] Mere Rios, RN 08/19/2025 8:30 AM EST Clinical Support [address] [address] Mere Rios, RN 08/23/2025 9:30 AM EST Office Visit [address] [address] Jill Boudreaux MD [address] [place] [address] documented as of this encounter Visit Diagnoses Not on filedocumented in this encounter Additional Health Concerns Assessment Noted Time PHQ-9 Depression Total Score: 0 11/28/19 24 11:23 AM EDT documented as of this encounter Care Teams Industrial Organizational Psychologist Relationship Specialty Start Date End Date Zahraa Roca DO 230 [place] [address] PCP - General Family Medicine 07/25/18 Christian Soria FNP 230 [place] [address] Nurse Practitioner Family Medicine 06/24/23 documented as of this encounter
--- OUTSIDE RECORDS SUMMARY | 2025-07-22 18:09 | XMS_ITS | Encounter Summary ---
Author Organization [employer] Address [address] [facility] 7 [place] [address] Care Team Providers Care Supervisor Type Disk Quality Control Name Role Phone Zahraa Roca DO Primary Care Provider [phone] Christian Soria Unavailable Unavailable Reason for Visit * Reason Onset Date Comments PT-1 03/15/2024 Encounter Details Date Type Department Care Team ([facility] st Contact Info) Description 03/15/2024 Telephone [facility] MEDICINE [address] [place], [place] [phone] Zahraa Roca DO [address] [place], [place] [phone] PT-1 Social History Tobacco Use Types Packs/Day [...] Y/N: Yes Provider name or facility name: [facility] Facility Address: [address] [place] [address] Escort needed: Y/N: No Do you have a wheelchair: Y/N: No If yes- Manual or electric: no Visits: 3 documented in this encounter Plan of Treatment Upcoming Encounters Date Type Department Care Team (Late st Contact Info) Description 07/29/2025 8:30 AM EST Clinical Support [facility] [address] [place] [phone] Mere Rios, RN 08/05/2025 8:30 AM EST Clinical Support [facility] [address] [place] [id number] Mere Rios, RN 08/13/2025 9:00 AM EST Clinical Support [facility] [address] [place] [id number] Mere Rios, RN 08/19/2025 8:30 AM EST Clinical Support [facility] [address] [place] [id number] Mere RiosHENRIK 08/23/2025 9:30 AM EST Office Visit [facility] [address] [place] [address] Jill Boudreaux MD [address] [place] [address] documented as of this encounter Visit Diagnoses Not on filedocumented in this encounter Additional Health Concerns Assessment Noted Time PHQ-9 Depression Total Score: 0 11/28/19 24 11:23 AM EDT documented as of this encounter Care Teams Supervisor Type Disk Quality Control Relationship Specialty Start Date End Date Zahraa Roca DO [address] [place] [phone] PCP - General Family Medicine 07/25/18 Christian Soria FNP [address] [place] [phone] Nurse Practitioner Family Medicine 06/24/23 documented as of this encounter
--- OUTSIDE RECORDS SUMMARY | 2025-07-22 18:09 | XMS_ITS | Encounter Summary ---
Author Organization [employer] Address 75 [facility] 7 [place] [address] Care Team Providers Care Manager Law Name Role Phone Zahraa Roca DO Primary Care Provider [phone] Christian Soria Unavailable Unavailable Reason for Visit * Reason Onset Date Comments PT1 01/03/2024 Encounter Details Date Type Department Care Team ([facility] st Contact Info) Description 01/03/2024 Telephone [facility] MEDICINE [address] [place], [place] [phone] Zahraa Roca DO [address] [place], [place] [phone] PT1 Social History Tobacco Use Types Packs/Day [...] facility name[facility] Facility Address: [address] [place] [address] Escort needed: Y/N: No Do you have a wheelchair: Y/N: No If yes- Manual or electric: none Visits: 7 days a week documented in this encounter Plan of Treatment Upcoming Encounters Date Type Department Care Team ([facility] Contact Info) Description 07/29/2025 8:30 AM EST Clinical Support [address] [address] Mere Rios, RN 08/05/2025 8:30 AM EST Clinical Support [address] [address] Mere Rios, RN 08/13/2025 9:00 AM EST Clinical Support [address] [address] Mere Rios, RN 08/19/2025 8:30 AM EST Clinical Support [address] [address] Mere Rios, RN 08/23/2025 9:30 AM EST Office Visit [address] [address] Jill Boudreaux MD [address] [place] [address] documented as of this encounter Visit Diagnoses Not on filedocumented in this encounter Additional Health Concerns Assessment Noted Time PHQ-9 Depression Total Score: 0 11/28/19 24 11:23 AM EDT documented as of this encounter Care Teams Manager Law Relationship Specialty Start Date End Date Zahraa Roca DO [address] [place] [phone] PCP - General Family Medicine 07/25/18 Christian Soria FNP [address] [place] [phone] Nurse Practitioner Family Medicine 06/24/23 documented as of this encounter
--- OUTSIDE RECORDS SUMMARY | 2025-07-22 18:09 | XMS_ITS | Encounter Summary ---
Author Organization [employer] Address 75 [facility] 7 [place] [address] Care Team Providers Care [employer] Research Associate Name Role Phone Zarhaa Roca DO Primary Care Provider [phone] Christian Soria Unavailable Unavailable Reason for Visit * Reason Onset Date Comments Nurse Triage 05/03/2025 Encounter Details Date Type Department Care Team ([facility] st Contact Info) Description 05/03/[address] [facility] MEDICINE [address] [place], [place] [phone] Zahraa Roca DO [address] [place], [place] [phone] Nurse Triage Social History Tobacco Use Types [...] this time as he had missedhis last [facility] 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 Pt states rescheduled to Tuesday but [...] caller accepted this outcome. Contact pt at [phone] documented in this encounter Plan of Treatment Upcoming Encounters Date Type Department Care Team (Late st Contact Info) Description 07/29/2025 8:30 AM EST Clinical Support [facility] [place] [address] Mere Rios, HENRIK 08/05/2025 8:30 AM EST Clinical Support [facility] [place] [address] Mere Rios, RN 08/13/2025 9:00 AM EST Clinical Support [facility] [place] [address] Mere Rios, RN 08/19/2025 8:30 AM EST Clinical Support [facility] [place] [address] Mere Rios, HENRIK 08/23/2025 9:30 AM EST Office Visit [facility] [place] [address] Jill [place] [address] documented as of this encounter Visit Diagnoses Not on filedocumented in this encounter Additional Health Concerns Assessment Noted Time PHQ-9 Depression Total Score: 16 10/16/ 025 3:09 PM EDT documented as of this encounter Care Teams [employer] Research Associate Relationship Specialty Start Date End Date Zahraa Roca DO [facility] [place] [address] PCP - General Family Medicine 07/25/18 Christian Soria FNP [address] [place] [phone] Nurse Practitioner Family Medicine 06/24/23 documented as of this encounter
--- OUTSIDE RECORDS SUMMARY | 2025-07-22 18:10 | XMS_ITS | Clinical Summary ---
Author Organization [employer] Address [address] [facility] 7[address] [place] [address] Care Team Providers Care Family Therapist Name Role Phone AbelinoZahraa Primary Care Provider [phone] Christian Soria Unavailable Unavailable Allergies No known [...] 2 times daily. Do not start before July 24, 2025. 14 tablet 07/24/20 25 026 Active clonazePAM (KlonoPIN) 1 MG [...] daily. 16 tablet 5 12:37 PM EST 12/08 025 Discontinued(Re order (will not trigger notification to Pharmacy)) clonazePAM (KlonoPIN) 1 MG tabletIndicat ions:Anxiety Take 1 tablet (1 mg) by mouth 2 times daily. 28 tablet 4:11 PM EST 07/10/20 025 Discontinued(Re order (will not trigger notification [...] or concerns, he should contact [facility]. All his questions were answered. He [...] Encounters Date Type Department Care Team Description 07/22/2025 8:30 AM EST Clinical Support [facility] [place] [address] Mere Rios RN Long-term current use of benzodiazepine (Primary Dx) 07/22/2025 Refill [facility] MEDICINE [address] [place] [address] Mere Rios RN Anxiety 07/22/2025 Travel 07/15/2025 10:00 AM EST Clinical Support [facility] MEDICINE [facility] [place] [address] Mere Rios RN Long-term current use of benzodiazepine (Primary Dx) 07/15/2025 Telephone [facility] MEDICINE [address] [place] [address] Mere Rois RN UTOX Pos JYOTI, Neg BZO; Forgot Clonazepam 07/15/2025 Travel 07/10/2025 9:00 AM EST Clinical Support [facility] [place] [address] Mere Rios RN Long-term current use of benzodiazepine (Primary Dx) 07/10/2025 Refill [facility] [place] [address] Zahraa Roca DO Anxiety 07/10/2025 Refill [facility] MEDICINE [address] [place] [address] Mree Rios RN Anxiety 07/10/2025 Travel 07/08/2025 [place] [address] Zahraa Roca, Appointment Request 07/01/2025 9:30 AM EST Clinical [place] [address] Mere Rios RN Long-term current use of benzodiazepine (Primary Dx) 07/01/2025 [place] [address] Zahraa Roca, Anxiety 07/01/2025 [place] [address] Mere Rios RN Anxiety 07/01/2025 Travel 06/17/2025 8:30 AM EST Clinical [place] [address] Mere Rios RN Long-term current use of benzodiazepine (Primary Dx) 06/17/2025 [place] [address] Mere Rios RN Anxiety 06/17/2025 Travel 06/17/2025 [place] [address] Zahraa Roca, Anxiety 06/14/2025 Telephone [facility] [place] [address] Zahraa Roca DO Prior Authorization (PA: Lidocaine 5% Patch) 06/05/2025 9:30 AM EST Office [place] [address] Zahraa Roca DO Closed fracture of one rib of left side, initial encounter (Primary Dx); Anxiety 06/05/2025 9:30 AM EST Clinical [place] [address] Mere Rios RN Long-term current use of benzodiazepine (Primary Dx) 06/05/2025 Travel 06/03/2025 [place] [address] Mere Rios, HENRIK CARDONANS VEGETABLE BUNCHER RV; 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; Pt cancelled VEGETABLE BUNCHER RV same day 05/31/[address] [address] Zahraa Roca DO 05/29/2025 Orders Only [facility] External Provider, [facility] 05/22/[address] [address] Zahraa Roca DO Med Refill 05/20/2025 11:00 AM EDT Clinical Support [address] [address] Mere Rios, HENRIK Long-term current use of benzodiazepine (Primary Dx) 05/20/[address] [address] Mere Rios RN Clonazepam count 05/20/[address] [address] Mere Rios RN Random VEGETABLE BUNCHER RV today; UTOX Pos JYOTI, FENT, Neg BZO; UTOX Confirmation 05/20/2025 Travel 05/20/[address] [address] Zahraa Roca DO Appointment Request 05/14/2025 Outside Procedure [facility] OPTOMETRY [address] [place] [address] Garo Malloyn, OD Presbyopia (Primary Dx) 05/09/[address] [address] Zahraa Roca DO Anxiety 05/09/[address] [address] Zahraa Roca DO Anxiety 05/06/2025 1:00 PM EDT Office Visit [facility] OPTOMETRY [address] [place] [phone] GamaGaron, OD Hyperopia of both eyes (Primary Dx) 05/06/2025 9:30 AM EDT Clinical Support [address] [address] Mere Rios, RN Long-term current use of benzodiazepine (Primary Dx) 05/06/2025 Telephone [facility] [address] [place] [address] Mere Rios, RN SIDDHARTHA scoring; UTOX Pos JYOTI 05/06/2025 Travel 05/03/2025 Telephone [facility] [address] [place] [address] Zahraa Roca DO Nurse Triage 05/03/2025 Refill [facility] [address] [place] [address] Zahraa Roca, Anxiety 04/29/2025 Telephone [facility] [address] [place] [address] Mere Rios, RN NCNS VEGETABLE BUNCHER RV today from Last 3 Months Immunizations [...] 8:30 AM EST Clinical Support [facility] MEDICINE [address] [place] [address] Mere Rios, RN 08/05/2025 8:30 AM EST Clinical Support [address] [address] Mere Rios, RN 08/13/2025 9:00 AM EST Clinical Support [address] [address] Mere Rios, HENRIK 08/19/2025 8:30 AM EST Clinical Support [place] [address] Mere Rios, RN 08/23/2025 9:30 AM EST Office Visit [address] [address] Jill Boudreaux MD [address] [place] [address] Health Maintenance Due Date Last Done Comments [...] DRUG MONITOR, COCAINE METAB, QN, URINE Routine 07/15/2025 10:00 AM EST Long-term current use of benzodiazepine DRUG MONITORING, BENZODIAZEPINES, QUANTITATIVE, URINE Routine 07/15/2025 10:00 AM EST Long-term current use of benzodiazepine POCT MARIO-14 URINE DRUG SCREEN Routine 07/15/2025 [...] Urine Drug Screen (07/22/2025 8:41 AM EST) Only the most recent of8 resultswithin the time period is included. Amphetamine Screen, Urine Negative Negative Barbiturate Screen, Urine Negative Negative Buprenophine Screen, Urine Negative Negative Benzodiazepines Screen, Urine Negative Negative Comment:VEGETABLE BUNCHER pt on Clonazepam Cocaine Screen, Urine Negative [...] - 07/22/2025 8:41 AM EST UTOX cup Lot#[id number] Exp. 06/24/26 Internal Pass Control Zahraa Roca DO POINT OF CARE TEST ENTER/JOANNA T ORDERABLES Final Result * Drug Monitoring, Benzodiazepines, Quantitative, Urine (07/15/2025 10:00 AM EST) Only the most recent of4 resultswithin the time period is included. Nordiazepam, GCMS Urine NEGATIVE [facility] Comment:CUTOFF 50 ng/mL Oxazepam, GCMS Urine NEGATIVE [facility] Comment:CUTOFF 50 ng/mL Lorazepam GCMS Urine NEGATIVE [facility] Comment:CUTOFF 50 ng/mL Alprazolam, GCMS Urine NEGATIVE [facility] Comment:CUTOFF 25 ng/mL Alphahydroxytriazolam , GCMS Ur NEGATIVE [facility] Comment:CUTOFF 50 ng/mL Temazepam, GCMS Urine NEGATIVE [facility] Comment:CUTOFF 50 ng/mL Alphahydroxymidazolam ,GCMS Ur NEGATIVE [facility] Comment:CUTOFF 50 ng/mL Aminoclonazepam, GCMS Urine 62 [facility] Comment:CUTOFF 25 ng/mL Flurazepam Metabolite,GCMS Ur NEGATIVE [facility] Comment:CUTOFF 50 ng/mL Benzodiazepines Comments SEE NOTE [facility] Comment:This drug testing is for medical treatment only. Analysiswas performed as non-forensic testing and these resultsshould be used only by healthcare providers to renderdiagnosis or treatment, or to monitor progress of medicalconditions.Benzodiazepines Notes:Aminoclonazepam detected is consistent with the use of thedrug Clonazepam.LDT Notes:Confirmation tests were developed and their analyticalperformance characteristics have been determined by [employer]. It has not been cleared or approved by the FDA.This assay has been validated pursuant to the CLIAregulations and is used for clinical purposes.Healthcare Providers needing Interpretation assistance,please contact us at [phone] ( ) M-F,8am to 10pm EST Urine (Urine, Random) 07/15/2025 10:00 AM EST 07/16/2025 11:30 AM EST Zahraa Abelino LAB URINE ORDERABLES Final R esult Performing Organization Address City/[facility]/ZIP Co de Phone Number [facility] [address] [place] [phone] * Drug Monitoring, Cocaine Metabolite, Quantitative, Urine (07/15/2025 10:00 AM EST) Only the most recent of5 resultswithin the time period is included. Benzoylecgonine [address] [facility] Comment:CUTOFF 100 ng/mL Cocaine Comments SEE NOTE [facility] Comment:This drug testing is for medical treatment only. Analysiswas performed as non-forensic testing and these resultsshould be used only by healthcare providers to renderdiagnosis or treatment, or to monitor progress of medicalconditionsCocaine Notes:Benzoylecgonine detected is consistent with the use of thedrug Cocaine.LDT Notes:Confirmation tests were developed and their analyticalperformance characteristics have been determined by [employer]. It has not been cleared or approved by the FDA.This assay has been validated pursuant to the CLIAregulations and is used for clinical purposes.Healthcare Providers needing Interpretation assistance,please contact us at [phone] ( ) M-F,8am to 10pm EST Urine (Urine, Random) 07/15/2025 10:00 AM EST 07/16/2025 11:30 AM EST Zahraa Abelino DO LAB URINE ORDERABLES Final R esult Performing Organization Address City/[facility]/ZIP Co de Phone Number [facility] [address] [place] [phone] * VASC US Lower Extremity Venous Insufficiency Bilateral (06/06/2025 11:00 AM EST) 06/06/2025 11:0 0 AM EST Narrative [facility] - 06/06/2025 12:28 PM EST [address] [address] Ultrasound Report Signed Patient: Cristobal Enriquez MR#: [id number] 54 : 1970 Acct:[id number] Age/Sex: 55 / M ADM Date: 06/06/25 Loc: .US Attending Dr: Everton Lawton MD Ordering Physician: Everton Lawton MD Date of Service: 06/06/25 Procedure(s): US venous insuf bilat Accession Number(s): [id number] cc: Zahraa Roca DO; Everton Lawton MD [...] by: Nancie Neil MD 06/06/2025 12:26 PM [facility] [place] [place] Dictated By: Nancie Neil MD Signed By: <Electronically signed by Nancie Neil MD in OV> 06/06/25 1226 DD/ 1100 TD/TT: 06/06/25 1135 Tv Host: BERNABE Procedure Note Donotuseinterpreter, Image - 06/06/2025 [place] [address] Ultrasound Report Signed Patient: Cristobal Enriquez R#: [id number] 54 : 1970Acct:[id number] Age/Sex: 55 / MADM Date: 06/06/25 Loc: HO.US Attending Dr: Everton Lawton MD Ordering Physician: Everton Lawton MD Date of Service: 06/06/25 Procedure(s): US venous insuf bilat Accession Number(s): [id number] cc: Zahraa Roca DO; Everton Lawton MD [...] by: Nancie Neil MD 06/06/2025 12:26 PM [facility] [place] [place] Dictated By: Nancie Neil MD Signed By: <Electronically signed by Nancie Neil MD in OV> 06/06/25 1226 DD/ 1100 TD/TT: 06/06/25 1135 Tv Host: BERNABE us [facility] External Provider CV VASC ULAR PROCEDURES Final Result [facility] [address] [place] [phone] * XR Ribs 3 Views Left w/ Chest (05/29/2025 11:52 AM EST) Anatomical Region Laterality Modality Radiographic Nara ging 05/29/2025 11:5 2 AM EST Narrative 05/29/2025 11:58 AM EST [address] [address] XRay Report Signed Patient: Cristobal Enriquez MR#: [id number] 54 : 1970 Acct:[id number] Age/Sex: 55 / M ADM Date: 05/29/25 Loc: .ED Attending Dr: Ordering Physician: Lynnette Rosado DO Date of Service: 05/29/25 Procedure(s): XR ribs LT min 3V w CXR1V Accession Number(s): [id number] cc: Lynnette Rosado DO; Zahraa Roca DO [...] OV> 05/29/25 1155 DD/ 51 TD/TT: 05/29/25 115 Tv Host: Procedure Note Donotuseinterpreter, Image - 05/29/[address] [address] XRay Report Signed Patient: Cristobal Enriquez JMR#: [id number] 54 : 1970Acct:[id number] Age/Sex: 55 / MADM Date: 05/29/25 Loc: HO.ED Attending Dr: Ordering Physician: Lynnette Rosado DO Date of Service: 05/29/25 Procedure(s): XR ribs LT min 3V w CXR1V Accession Number(s): [id number] cc: Lynnette Rosado DO; Zahraa Roca DO [...] OV> 05/29/25 1155 DD/ 1152 TD/TT: 05/29/25 115 Tv Host: [facility] External Provider IMG XR PROCEDURES Final Result * Drug Monitoring, Fentanyl, with Confirmation, Urine (05/20/2025 12:30 PM EDT) Fentanyl, Ur NEGATIVE [facility] Comment:CUTOFF 0.5 NG/ML Norfentanyl, Ur NEGATIVE [facility] Comment:CUTOFF 0.5 NG/ML Fentanyl Note SEE NOTE [facility] Comment: NOTES AND COMMENTSThis drug testing is for medical treatment only. Analysiswas performed as non-forensic testing and these resultsshould be used only by healthcare providers to renderdiagnosis or treatment, or to monitor progress of medicalconditions. LDT Notes: Confirmation tests were developed andtheir analytical performance characteristics have beendetermined by [employer]. It has not been cleared orapproved by the FDA. This assay has been validated pursuantto the CLIA regulations and is used for clinical purposes.Healthcare Providers needing Interpretation assistance,please contact us at [phone] ( ) M-F,8am to 10pm ESTThis drug testing is for medical treatment only. Analysiswas performed as non-forensic testing and these resultsshould be used only by healthcare providers to renderdiagnosis or treatment, or to monitor progress of medicalconditions.PERFORMING SITE:[facility] [employer] [phone] LaboratoryDirector: FER ARREAGA MD, CLIA: [id number] Urine (Urine, Random) 05/20/2025 12:30 PM EDT 05/20/2025 4:29 PM EDT us Zahraa Roca DO LAB URINE ORDERABLES Final R esult [facility] [address] [place] [phone] * (ABNORMAL) Drug Monitoring, Methadone Metabolite, Screen, Urine (05/20/2025 12:30 PM EDT) Methadone Screen, Urine Positive( A) Not Detect ng/mL [facility] Comment:Methadone cut-off is 300 ng/mL.Positive results are unconfirmed and should not be used fornon-medical purposes. Urine (Urine, Random) 05/20/2025 12:30 PM EDT 05/20/2025 4:29 PM EDT Zahraa Abelino LAB URINE ORDERABLES Final R esult Performing Organization Address City/[facility]/ZIP Co de Phone Number [facility] [address] [place] [phone] * HIV-1/2 Antigen and Antibodies, Fourth Generation, with Reflexes (03/13/2025 10:55 AM EDT) HIV AB/AG Nonreactive Nonreactive [facility] Comment:HIV-1 p24 Ag and/or HIV-1/HIV-2 Ab not detected.A test result that is nonreactive does not exclude thepossibility of exposure to or infection with HIV-1 and/orHIV-2. Nonreactive results in this assay for individualswith prior exposure to HIV-1 and/or HIV-2 may be due toantigen and antibody levels that are below the limit ofdetection of this assay.The [employer] HIV Ag/Ab Combo assay result andsupplemental assay results should be interpreted inconjunction with the patient's clinical presentation,history and other laboratory results. If the results areinconsistent with clinical evidence, additional testing issuggested to confirm the result. Blood Venous blood specimen / Unknown 03/13/2025 10:55 AM EDT 03/13/2025 12:24 PM EDT Zahraa Roca DO LAB BLOOD ORDERABLES Final R esult Performing Organization Address City/[facility]/ZIP Co de Phone Number [facility] [address] [place] [phone] * Lipid Panel, Standard (03/13/2025 10:55 AM EDT) Triglycerides 68 <150 mg/dL [facility] Comment:Desirable Triglyceri de: less than 150 mg/dLBorderline High Triglyceride 150-199 mg/dLHigh Triglyceride: 200-499 mg/dLVery High Triglyceride: greater than or equal to 5OO mg/dL Cholesterol 150 <200 mg/dL [facility] Comment:Desirable Cholestero l: less than 200 mg/dLBorderline High Cholesterol: 200-239 mg/dLHigh Cholesterol: greater than 239 mg/dL LDL Cholesterol Calculated 89 <100 mg/dL [facility] Comment:Desirable LDL: less than 100 mg/dLNear Optimal/Above Optimal LDL: 110- 129 mg/dLBorderline High LDL: 130-159 mg/dLHigh LDL: 160-189 mg/dLVery High LDL: greater than or equal to 190 mg/dL HDL Cholesterol 48 >40 mg/dL [facility] Comment:Desirable HDL: great er than 40 mg/dL Note: This HDL assay may give artificially low results in patients with liver disease. Blood Venous blood specimen / Unknown 03/13/2025 10:55 AM EDT 03/13/2025 12:29 PM EDT Zahraa Roca DO LAB BLOOD ORDERABLES Final R esult Performing Organization Address City/[facility] Co de Phone Number [facility] [address] [place] [phone] * Colonoscopy (03/16/2023 9:43 AM EDT) Historical Provider HEALTH MAINTENANCE Final Result * Fecal Globin by Immunochemistry (07/13/2022 12:00 AM EST) Fecal Globin By Immunochemistry SEE NOTE [facility] [place] [facility] Comment: FECAL GLOBIN BY IMMUNOCHEMISTRY Micro Number: [id number] Test Status: Final Specimen Source: Insure (tm) fobt test card Specimen Quality: Adequate Fecal Globin: Not Detected 07/13/2022 07/28/2022 8:2 7 AM EST Zahraa Roca DO LAB BODY FLUIDS AND STOOLS O RDERABLES Final Result Performing Organization Address City/[facility]/ZIP Co de Phone Number [address], [place] [phone] [facility] [address], ([address]) [place] [phone] from Last 3 Months or Most Recently Relevant to Health Maintenance Insurance [facility] STANDARD MEDICARE DENTAL-[facility] MEDICAID STAND ADULT Care Teams Family Therapist Relationship Specialty Start Date End Date Zahraa Roca DO [address] [place] [address] PCP - General Family Medicine 07/25/18 Christian Soria FNP [address] [place] [address] Nurse Practitioner Family Medicine 06/24/23
--- OUTSIDE RECORDS SUMMARY | 2025-07-22 18:10 | XMS_ITS | Encounter Summary ---
Author Organization [employer] Address [address] [facility] 7t [place] [address] Care Team Providers Care Operations Professional Name Role Phone Abelino Zahraa Primary Care Provider [phone] Christian Soria Unavailable Unavailable Encounter Details Date Type Department Care Team (Late st Contact Info) Description 09/20/2022 Orders Only [facility] [address] [place] [address] Zahraa Andino LPN Social History Tobacco Use [...] Description 07/29/2025 8:30 AM EST Clinical Support [address] [address] Mere Rios, RN 08/05/2025 8:30 AM EST Clinical Support [address] [address] Mere Rios, RN 08/13/2025 9:00 AM EST Clinical Support [address] [address] Mere Rios, RN 08/19/2025 8:30 AM EST Clinical Support [address] [address] Mere Rios RN 08/23/2025 9:30 AM EST Office Visit [facility] [address] [place] [address] Jill Boudreaux MD [address] [place] [address] documented as of this encounter Visit Diagnoses Not on filedocumented in this encounter Additional Health Concerns Assessment Noted Time PHQ-9 Depression Total Score: 0 08/24/19 23 2:33 PM EST documented as of this encounter Care Teams Operations Professional Relationship Specialty Start Date End Date Zahraa Roca DO [address] [place] [address] PCP - General Family Medicine 07/25/18 Christian Soria FNP [address] [place] [address] Nurse Practitioner Family Medicine 06/24/23 documented as of this encounter
--- OUTSIDE RECORDS SUMMARY | 2025-07-22 18:10 | XMS_ITS | Encounter Summary ---
Author Organization [employer] Address [address] [place] [address] Care Team Providers Care Mold Chipper Name Role Phone AbelinoZahraa Primary Care Provider [phone] Christian Soria Unavailable Unavailable Encounter Details Date Type Department Care Team (Latest Contact Info) Description 07/22/2025 Travel Social History Tobacco Use Types Packs/Day [...] Description 07/29/2025 8:30 AM EST Clinical Support [address] [address] Mere Rios, HENRIK 08/05/2025 8:30 AM EST Clinical Support [address] [address] Mere Rios, HENRIK 08/13/2025 9:00 AM EST Clinical Support [address] [address] Mere Rios, HENRIK 08/19/2025 8:30 AM EST Clinical Support [address] [address] Mere Rios, HENRIK 08/23/2025 9:30 AM EST Office Visit [address] [address] Jill Boudreaux MD [address] [place] [address] documented as of this encounter Visit Diagnoses Not on filedocumented in this encounter Additional Health Concerns Assessment Noted Time PHQ-9 Depression Total Score: 16 025 3:09 PM EDT documented as of this encounter Care Teams Mold Chipper Relationship Specialty Start Date End Date Zahraa Roca DO [address] [place] [address] PCP - General Family Medicine 07/25/18 Christian Soria FNP [address] [place] [address] Nurse Practitioner Family Medicine 06/24/23 documented as of this encounter
--- OUTSIDE RECORDS SUMMARY | 2025-07-22 18:10 | XMS_ITS | Encounter Summary ---
Author Organization [employer] Address [address] [facility] 7t [place] [address] Care Team Providers Care Police Communications Dispatcher Name Role Phone Zahraa Roca DO Primary Care Provider [phone] Christian Soria Unavailable Unavailable Reason for Visit * Reason Comments Med Refill Encounter Details Date Type Department Care Team ([facility] st Contact Info) Description 05/09/2025 Refill [facility] [address] [place], [place] [phone] Zahraa Roca DO [address] [place], [place] [phone] Anxiety Social History Tobacco Use Types Packs/Day [...] Description 07/29/2025 8:30 AM EST Clinical Support [address] [address] Mere Rios, HENRIK 08/05/2025 8:30 AM EST Clinical Support [address] [address] Mere Rios, HENRIK 08/13/2025 9:00 AM EST Clinical Support [address] [address] Mere Rios, HENRIK 08/19/2025 8:30 AM EST Clinical Support [address] [address] Mere Rios, HENRIK 08/23/2025 9:30 AM EST Office Visit [address] [address] Jill Boudreaux MD [address] [place] [address] documented as of this encounter Visit Diagnoses Diagnosis Anxiety Anxiety state, unspecified documented in this encounter Additional Health Concerns Assessment Noted Time PHQ-9 Depression Total Score: 16 025 3:09 PM EDT documented as of this encounter Care Teams Police Communications Dispatcher Relationship Specialty Start Date End Date Zahraa Roca DO [address] [place] [address] PCP - General Family Medicine 07/25/18 Christian Soria FNP [address] [place] [address] Nurse Practitioner Family Medicine 06/24/23 documented as of this encounter
--- OUTSIDE RECORDS SUMMARY | 2025-07-22 18:10 | XMS_ITS | Encounter Summary ---
Author Organization [employer] Address 75 [facility] 7t [place] [address] Care Team Providers Care Bull Gang Supervisor Name Role Phone Abelino Zahraa Primary Care Provider +[phone] Christian Soria Unavailable Unavailable Encounter Details Date Type Department Care Team (Late st Contact Info) Description 07/06/2022 Orders Only [facility] MED & PEDS [address] [place], [place] [phone] Zahraa Andino LPN Social History Tobacco Use [...] Description 07/29/2025 8:30 AM EST Clinical Support [address] [address] Mere Rios, RN 08/05/2025 8:30 AM EST Clinical Support [address] [address] Mere Rios, RN 08/13/2025 9:00 AM EST Clinical Support [address] [address] Mere Rios, RN 08/19/2025 8:30 AM EST Clinical Support [address] [address] Mere Rios, RN 08/23/2025 9:30 AM EST Office Visit [facility] MEDICINE 230 [place] [address] Jill Boudreaux MD 230 [place] [address] documented as of this encounter Visit Diagnoses Not on filedocumented in this encounter Care Teams Bull Gang Supervisor Relationship Specialty Start Date End Date Zahraa Roca DO [address] [place] [address] PCP - General Family Medicine 07/25/18 Christian Soria FNP [address] [place] [address] Nurse Practitioner Family Medicine 06/24/23 documented as of this encounter
--- OUTSIDE RECORDS SUMMARY | 2025-07-22 18:10 | XMS_ITS | Encounter Summary ---
Author Organization [employer] Address 75 [facility] 7t [place] [address] Care Team Providers Care Core Oven Tender Name Role Phone Zahraa Roca DO Primary Care Provider + [phone] Christian Soria Unavailable Unavailable Reason for Visit * Reason Comments Med Refill Encounter Details Date Type Department Care Team ([facility] st Contact Info) Description 02/14/2025 Refill [facility] MEDICINE 230 [place], [place] [phone] Zahraa Roca DO 230 [place], [place] [phone] Anxiety Social History Tobacco Use Types Packs/Day [...] 07/29/2025 8:30 AM EST Clinical Support [address] [address] Mere Rios, HENRIK 08/05/2025 8:30 AM EST Clinical Support [address] [address] Mere Rios, HENRIK 08/13/2025 9:00 AM EST Clinical Support [address] [address] Mere Rios, HENRIK 08/19/2025 8:30 AM EST Clinical Support [address] [address] Mere Rios, HENRIK 08/23/2025 9:30 AM EST Office Visit [address] [address] Jill Boudreaux MD [address] [place] [address] documented as of this encounter Visit Diagnoses Diagnosis Anxiety Anxiety state, unspecified documented in this encounter Additional Health Concerns Assessment Noted Time PHQ-9 Depression Total Score: 16 025 3:09 PM EDT documented as of this encounter Care Teams Core Oven Tender Relationship Specialty Start Date End Date Zahraa Roca DO 230 [place] [address] PCP - General Family Medicine 07/25/18 Christian Soria FNP 230 [place] [address] Nurse Practitioner Family Medicine 06/24/23 documented as of this encounter
--- OUTSIDE RECORDS SUMMARY | 2025-07-22 18:10 | XMS_ITS | Encounter Summary ---
Author Organization [employer] Address 75 [facility] 7t [place] [address] Care Team Providers Care Certification Officer Name Role Phone AbelinoZahraa Primary Care Provider [phone] Christian Soria Unavailable Unavailable Encounter Details Date Type Department Care Team (Late st Contact Info) Description 08/12/2022 Orders Only [facility] CHC MED & PEDS [address] [place], [place] [phone] Zahraa Andino LPN Social History Tobacco Use [...] Description 07/29/2025 8:30 AM EST Clinical Support [address] [address] Mere Rios, RN 08/05/2025 8:30 AM EST Clinical Support [address] [address] Mere Rios, RN 08/13/2025 9:00 AM EST Clinical Support [address] [address] Mere Rios, RN 08/19/2025 8:30 AM EST Clinical Support [address] [address] Mere Rios, RN 08/23/2025 9:30 AM EST Office Visit [facility] MEDICINE 230 [place] [address] Jill Boudreaux MD 230 [place] [address] documented as of this encounter Visit Diagnoses Not on filedocumented in this encounter Care Teams Certification Officer Relationship Specialty Start Date End Date Zahraa Roca DO [address] [place] [address] PCP - General Family Medicine 07/25/18 Christian Soria FNP [address] [place] [address] Nurse Practitioner Family Medicine 06/24/23 documented as of this encounter
--- OUTSIDE RECORDS SUMMARY | 2025-07-22 18:10 | XMS_ITS | Encounter Summary ---
Author Organization [employer] Address 75 [facility] 7t [place] [address] Care Team Providers Care Newborn Photographer Name Role Phone Zahraa Roca DO Primary Care Provider [phone] Christian Soria Unavailable Unavailable Reason for Visit * Reason Onset Date Comments Appt question 08/09/2024 Encounter Details Date Type Department Care Team ([facility] st Contact Info) Description 08/09/2024 Telephone [facility] MEDICINE 230 [place], [place] [phone] Zahraa Roca DO 230 [place], [place] [phone] Appt question Social History Tobacco Use Types [...] aug appt its for that. Any questions [phone] documented in this encounter Plan of Treatment Upcoming Encounters Date Type Department Care Team (Late st Contact Info) Description 07/29/2025 8:30 AM EST Clinical Support [facility] MEDICINE [address] [place] [address], [place] [address] Mere Rios, HENRIK 08/05/2025 8:30 AM EST Clinical Support [facility] MEDICINE [address] [place] [address], [place] [address] Mere Rios, HENRIK 08/13/2025 9:00 AM EST Clinical Support [facility] MEDICINE [facility] [place] [address] Mere Rios, HENRIK 08/19/2025 8:30 AM EST Clinical Support [address] [place] [address] Mere Rios RN 08/23/2025 9:30 AM EST Office Visit [facility] MEDICINE 230 [place] [address] Jill Boudreaux MD 230 [place] [address] documented as of this encounter Visit Diagnoses Not on filedocumented in this encounter Additional Health Concerns Assessment Noted Time PHQ-9 Depression Total Score: 0 11/28/19 24 11:23 AM EDT documented as of this encounter Care Teams Newborn Photographer Relationship Specialty Start Date End Date Zahraa Roca DO 230 [place] [address] PCP - General Family Medicine 07/25/18 Christian Soria FNP [address] [place] [address] Nurse Practitioner Family Medicine 06/24/23 documented as of this encounter
--- OUTSIDE RECORDS SUMMARY | 2025-07-22 18:10 | XMS_ITS | Encounter Summary ---
Author Organization [employer] Address [address] [facility] [address] 7t [place] [address] Care Team Providers Care Copra Sampler Name Role Phone Zahraa Roca DO Primary Care Provider + [phone] Christian Soria Unavailable Unavailable Encounter Details Date Type Department Care Team (Late st Contact Info) Description 10/10/2024 Orders Only [facility] MEDICINE 230 [place], [place] [phone] Zahraa Roca DO 230 [place] [address] Social History Tobacco Use Types Packs/Day Years [...] Description 07/29/2025 8:30 AM EST Clinical Support [address] [address] Mere Rios, HENRIK 08/05/2025 8:30 AM EST Clinical Support [address] [address] Mere Rios, HENRIK 08/13/2025 9:00 AM EST Clinical Support [address] [address] Mere Rios, HENRIK 08/19/2025 8:30 AM EST Clinical Support [address] [address] Mere Rios, RN 08/23/2025 9:30 AM EST Office Visit [address] [address] Jill Boudreaux MD [address] [place] [address] documented as of this encounter Visit Diagnoses Not on filedocumented in this encounter Additional Health Concerns Assessment Noted Time PHQ-9 Depression Total Score: 0 11/28/19 11:23 AM EDT documented as of this encounter Care Teams Copra Sampler Relationship Specialty Start Date End Date Zahraa Roca DO 230 [place] [address] PCP - General Family Medicine 07/25/18 Christian Soria FNP 230 [place] [address] Nurse Practitioner Family Medicine 06/24/23 documented as of this encounter
--- OUTSIDE RECORDS SUMMARY | 2025-07-22 18:10 | XMS_ITS | Encounter Summary ---
Author Organization [employer] Address [address] [facility] [address] 7t [place] [address] Care Team Providers Care Gridcap Machine Operator Name Role Phone AbelinoZahraa Primary Care Provider Christian Soria Unavailable Unavailable Reason for Visit * Reason Onset Date Comments Med Refill 07/22/2025 Abnormal UTOX 07/22/2025 Clonazepam count discrepancy 07/22/2025 Encounter Details Date Type Department Care Team (Late st Contact Info) Description 07/22/2025 Refill [facility] MEDICINE 230 [place] [address] Mere Rios, HENRIK Anxiety Social History Tobacco [...] Telephone Encounter - Mere Rios RN - 07/22/2025 9:09 AM EST 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 Stated he last took a dose this morning. documented in this encounter Plan of Treatment Upcoming Encounters Date Type Department Care Team (Late st Contact Info) Description 07/29/2025 8:30 AM EST Clinical Support [address] [address] Mere Rios, RN 08/05/2025 8:30 AM EST Clinical Support [address] [address] Mere Rios, HENRIK 08/13/2025 9:00 AM EST Clinical Support [address] [address] Mere Rios, HENRIK 08/19/2025 8:30 AM EST Clinical Support [address] [address] Mere Rios, HENRIK 08/23/2025 9:30 AM EST Office Visit [address] [address] Jill Boudreaux MD 230 [place] [address] documented as of this encounter Visit Diagnoses Diagnosis Anxiety Anxiety state, unspecified documented in this encounter Additional Health Concerns Assessment Noted Time PHQ-9 Depression Total Score: 16 10/16/ 025 3:09 PM EDT documented as of this encounter Care Teams Gridcap Machine Operator Relationship Specialty Start Date End Date Zahraa Roca DO 230 [place] [address] PCP - General Family Medicine 07/25/18 Christian Soria FNP [address] [place] [address] Nurse Practitioner Family Medicine 06/24/23 documented as of this encounter
--- OUTSIDE RECORDS SUMMARY | 2025-07-22 18:10 | XMS_ITS | Encounter Summary ---
Author Organization [employer] Address 75 [facility] 7t [place] [address] Care Team Providers Care Charge Rn Name Role Phone Zahraa Rcoa DO Primary Care Provider + [phone] Christian Soria Unavailable Unavailable Reason for Visit * Reason Comments Med Refill Encounter Details Date Type Department Care Team ([facility] st Contact Info) Description 07/01/2025 Refill [facility] MEDICINE 230 [place], [place] [phone] Zahraa Roca DO 230 [place], [place] [phone] Anxiety Social History Tobacco Use Types Packs/Day [...] Description 07/29/2025 8:30 AM EST Clinical Support [address] [address] Mere Rios, HENRIK 08/05/2025 8:30 AM EST Clinical Support [address] [address] Mere Rios, HENRIK 08/13/2025 9:00 AM EST Clinical Support [address] [address] Mere Rios, HENRIK 08/19/2025 8:30 AM EST Clinical Support [address] [address] Mere Rios, HENRIK 08/23/2025 9:30 AM EST Office Visit [address] [address] Jill Boudreaux MD [address] [place] [address] documented as of this encounter Visit Diagnoses Diagnosis Anxiety Anxiety state, unspecified documented in this encounter Additional Health Concerns Assessment Noted Time PHQ-9 Depression Total Score: 16 025 3:09 PM EDT documented as of this encounter Care Teams Charge Rn Relationship Specialty Start Date End Date Zahraa Roca DO 230 [place] [address] PCP - General Family Medicine 07/25/18 Christian Soria FNP 230 [place] [address] Nurse Practitioner Family Medicine 06/24/23 documented as of this encounter
--- OUTSIDE RECORDS SUMMARY | 2025-07-22 18:10 | XMS_ITS | Encounter Summary ---
Author Organization [employer] Address [address] [place] [address] 7 [place] [address] Care Team Providers Care Trimmer Climber Name Role Phone Zahraa Roca DO Primary Care Provider [phone] Christian Soria Unavailable Unavailable Reason for Visit * Reason Onset Date Comments Med Refill 12/31/2022 Encounter Details Date Type Department Care Team (Late st Contact Info) Description 12/31/2022 Telephone [facility] [address], [place] [phone] Zahraa Roca DO 230 [place], [place] [phone] Med Refill Social History Tobacco Use Types [...] Description 07/29/2025 8:30 AM EST Clinical Support [facility] [address] Mere Rios, HENRIK 08/05/2025 8:30 AM EST Clinical Support [facility] [place] [address] Mere Rios, RN 08/13/2025 9:00 AM EST Clinical Support [facility] [place] [address] Mere Rios, HENRIK 08/19/2025 8:30 AM EST Clinical Support [facility] [place] [address] Mere Rios, HENRIK 08/23/2025 9:30 AM EST Office Visit [facility] [place] [address] Jill Boudreaux [place] [address] documented as of this encounter Visit Diagnoses Not on filedocumented in this encounter Additional Health Concerns Assessment Noted Time PHQ-9 Depression Total Score: 0 08/24/19 23 2:33 PM EST documented as of this encounter Care Teams Trimmer Climber Relationship Specialty Start Date End Date Zahra[place] [address] PCP - General Family Medicine 07/25/18 Christian Soria FNP [address] [place] [address] Nurse Practitioner Family Medicine 06/24/23 documented as of this encounter
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
--- OUTSIDE RECORDS SUMMARY | 2025-07-22 18:10 | XMS_ITS | Encounter Summary ---
Author Organization [employer] Address 75 [facility] 7 [place] [address] Care Team Providers Care Taxonomist Name Role Phone Zahraa Roca DO Primary Care Provider [phone] Christian Soria Unavailable Unavailable Reason for Visit * Reason Onset Date Comments PT-1 10/02/2024 Encounter Details Date Type Department Care Team ([facility] st Contact Info) Description 10/02/2024 Telephone [facility] MEDICINE 230 [place], [place] [phone] Zahraa Roca DO 230 [place], [place] [phone] PT-1 Social History Tobacco Use Types Packs/Day [...] status of Pt 1 Contact pt at [phone] * Telephone Encounter - Go Vasquez - 10/02/2024 9:06 AM EDT Patient calling requesting PT1 Home Address verified: Y/N: Yes Provider name or facility name: [facility] Care Resource [address] [address] Escort needed: Y/N: No Do you have a wheelchair: Y/N: No If yes- Manual or electric: Visits: (7 Days x Weekly) documented in this encounter Plan of Treatment Upcoming Encounters Date Type Department Care Team ([facility] st Contact Info) Description 07/29/2025 8:30 AM EST Clinical Support [address] [address] Mere Rios, HENRIK 08/05/2025 8:30 AM EST Clinical Support [address] [place] [address] Mere Rios, RN 08/13/2025 9:00 AM EST Clinical Support [facility] [place] [address] Mere Rios, RN 08/19/2025 8:30 AM EST Clinical Support [address] [address] Mere Rios, HENRIK 08/23/2025 9:30 AM EST Office Visit [address] [address] Jill Boudreaux MD [address] [place] [address] documented as of this encounter Visit Diagnoses Not on filedocumented in this encounter Additional Health Concerns Assessment Noted Time PHQ-9 Depression Total Score: 0 11/28/19 24 11:23 AM EDT documented as of this encounter Care Teams Taxonomist Relationship Specialty Start Date End Date [place] [address] PCP - General Family Medicine 07/25/18 Christian Soria FNP [address] [place] [address] Nurse Practitioner Family Medicine 06/24/23 documented as of this encounter
--- OUTSIDE RECORDS SUMMARY | 2025-07-22 18:10 | XMS_ITS | Encounter Summary ---
Author Organization [employer] Address 75 [facility] 7 [place] [address] Care Team Providers Care Bulldozer Operator Name Role Phone Zahraa Roca DO Primary Care Provider [phone] Christian Soria Unavailable Unavailable Reason for Visit * Reason Onset Date Comments Appointment Request 06/19/2024 Encounter Details Date Type Department Care Team ([facility] st Contact Info) Description 06/19/2024 Telephone [facility] MEDICINE 230 [place], [place] [phone] Zahraa Roca DO 230 [place], [place] [phone] Appointment Request Social History Tobacco Use Types [...] Description 07/29/2025 8:30 AM EST Clinical Support [address] [address] Mere Rios, RN 08/05/2025 8:30 AM EST Clinical Support [address] [address] Mere Rios, RN 08/13/2025 9:00 AM EST Clinical Support [address] [place] [address] Mere Rios, RN 08/19/2025 8:30 AM EST Clinical Support [address] [address] Mere Rios, RN 08/23/2025 9:30 AM EST Office Visit [address] [place] [address] Jill Boudreaux MD 230 [place] [address] documented as of this encounter Visit Diagnoses Not on filedocumented in this encounter Additional Health Concerns Assessment Noted Time PHQ-9 Depression Total Score: 0 11/28/19 24 11:23 AM EDT documented as of this encounter Care Teams Bulldozer Operator Relationship Specialty Start Date End Date Zahraa Roca DO 230 [place] [address] PCP - General Family Medicine 07/25/18 Christian Soria FNP [address] [place] [address] Nurse Practitioner Family Medicine 06/24/23 documented as of this encounter
--- OUTSIDE RECORDS SUMMARY | 2025-07-22 18:10 | XMS_ITS | Encounter Summary ---
Author Organization [employer] Address 75 [facility] 7 [place] [address] Care Team Providers Care Slice Plug Cutter Operator Name Role Phone Zahraa Roca DO Primary Care Provider [phone] Christian Soria Unavailable Unavailable Reason for Visit * Reason Onset Date Comments PT-1 10/01/2024 Encounter Details Date Type Department Care Team ([facility] st Contact Info) Description 10/01/2024 Telephone [facility] MEDICINE 230 [place], [place] [phone] Zahraa Roca DO 230 [place], [place] [phone] PT-1 (/) Social History Tobacco Use Types [...] EDT Tc from pt requesting for the Spud Grader locations for all his Pt 1 to be changed to [address] [place] [address]. If any questions contact pt at [phone] documented in this encounter Plan of Treatment Upcoming Encounters Date Type Department Care Team (Late st Contact Info) Description 07/29/2025 8:30 AM EST Clinical Support [address] [place] [address] Mere Rios, HENRIK 08/05/2025 8:30 AM EST Clinical Support [address] [address] Mere Rios, RN 08/13/2025 9:00 AM EST Clinical Support [address] [address] Mere Rios, RN 08/19/2025 8:30 AM EST Clinical Support [address] [address] Mere Rios, RN 08/23/2025 9:30 AM EST Office Visit [facility] MEDICINE 230 [place] [address] Jill Boudreaux MD 230 [place] [address] documented as of this encounter Visit Diagnoses Not on filedocumented in this encounter Additional Health Concerns Assessment Noted Time PHQ-9 Depression Total Score: 0 11/28/19 24 11:23 AM EDT documented as of this encounter Care Teams Slice Plug Cutter Operator Relationship Specialty Start Date End Date Zahraa Roca DO [address] [place] [phone] PCP - General Family Medicine 07/25/18 Christian Soria FNP [address] [place] [address] Nurse Practitioner Family Medicine 06/24/23 documented as of this encounter
--- OUTSIDE RECORDS SUMMARY | 2025-07-22 18:10 | XMS_ITS | Encounter Summary ---
Author Organization [employer] Address [address] [facility] 7 [place] [address] Care Team Providers Care Abatement Worker Name Role Phone Zahraa Roca DO Primary Care Provider [phone] Christian Soria Unavailable Unavailable Reason for Visit * Reason Onset Date Comments PT1 10/24/2024 Encounter Details Date Type Department Care Team ([facility] st Contact Info) Description 10/24/2024 Telephone [facility] MEDICINE [address] [place], [place] [phone] Zahraa Roca DO 230 [place], [place] [phone] PT1 Social History Tobacco Use Types Packs/Day [...] facility name: Mayur harrington Facility Address: [address] [facility] Escort needed: Y/N: No Do you have a wheelchair: Y/N: No If yes- Manual or electric: no Visits:3x a month for 1 year 2.)Patient calling requesting PT1 Home Address verified: Y/N: Yes Provider name or facility name: Dr latonya Christine Facility Address: [address] [facility] [address] Escort needed: Y/N: No Visits: 3x a month for 1 year 3.) Patient calling requesting PT1 Home Address verified: Y/N: Yes Provider name or facility name: Everton Lawton MD Facility Address: [address], [place] [address] Escort needed: Y/N: No Visits: 3 x a month for 1 year 4.) Patient calling requesting PT1 Home Address verified: Y/N: Yes Provider name or facility name: PCP and dental appt Facility Address: [address] [facility] [address] Escort needed: Y/N: No Visits: 4x a month for 1 year documented in this encounter Plan of Treatment Upcoming Encounters Date Type Department Care Team (Late st Contact Info) Description 07/29/2025 8:30 AM EST Clinical Support [facility] [place] [address] Mere Rios, HENRIK 08/05/2025 8:30 AM EST Clinical Support [facility] [address] Mere Rios, RN 08/13/2025 9:00 AM EST Clinical Support [facility] [address] Mere Rios, RN 08/19/2025 8:30 AM EST Clinical Support [facility] [place] [address] Mere Rios, HENRIK 08/23/2025 9:30 AM EST Office Visit [facility] [place] [address] Jill Boudreaux MD [facility] [place] [address] documented as of this encounter Visit Diagnoses Not on filedocumented in this encounter Additional Health Concerns Assessment Noted Time PHQ-9 Depression Total Score: 16 10/16/ 025 3:09 PM EDT documented as of this encounter Care Teams Abatement Worker Relationship Specialty Start Date End Date Zahraa Roca DO [facility] [place] [address] PCP - General Family Medicine 07/25/18 Christian [place] [address] Nurse Practitioner Family Medicine 06/24/23 documented as of this encounter
--- OUTSIDE RECORDS SUMMARY | 2025-07-22 18:10 | XMS_ITS | Encounter Summary ---
Author Organization [employer] Address [address] [facility] 7 [place] [address] Care Team Providers Care Sales Engagement Executive Name Role Phone Zahraa Roca DO Primary Care Provider [phone] Christian Soria Unavailable Unavailable Reason for Visit * Reason Onset Date Comments Appointment Request 08/03/2024 Encounter Details Date Type Department Care Team ([facility] st Contact Info) Description 08/03/2024 Telephone [facility] MEDICINE 230 [place], [place] [phone] Zahraa Roca DO [address] [place], [place] [phone] Appointment Request Social History Tobacco Use Types [...] missed appointment with dermatology. Contact pt at [phone] documented in this encounter Plan of Treatment Upcoming Encounters Date Type Department Care Team (Late st Contact Info) Description 07/29/2025 8:30 AM EST Clinical Support [address] [address] Mere Rios, HENRIK 08/05/2025 8:30 AM EST Clinical Support [address] [address] Mere Rios, RN 08/13/2025 9:00 AM EST Clinical Support [address] [address] Mere Rios, RN 08/19/2025 8:30 AM EST Clinical Support [address] [address] Mere Rios, RN 08/23/2025 9:30 AM EST Office Visit [address] [place] [address] Jill Boudreaux MD [address] [place] [address] documented as of this encounter Visit Diagnoses Not on filedocumented in this encounter Additional Health Concerns Assessment Noted Time PHQ-9 Depression Total Score: 0 11/28/19 24 11:23 AM EDT documented as of this encounter Care Teams Sales Engagement Executive Relationship Specialty Start Date End Date Zahraa Roca DO [address] [place] [address] PCP - General Family Medicine 07/25/18 Christian Soria FNP [address] [place] [address] Nurse Practitioner Family Medicine 06/24/23 documented as of this encounter
--- OUTSIDE RECORDS SUMMARY | 2025-07-22 18:10 | XMS_ITS | Encounter Summary ---
Author Organization [employer] Address [address] [place] [address] 7t [place] [address] Care Team Providers Care Library Science Professor Name Role Phone Zahraa Roca DO Primary Care Provider [phone] Christian Soria Unavailable Unavailable Encounter Details Date Type Department Care Team (Late st Contact Info) Description 08/31/[address] [address] Zahraa Roca DO [address] [place] [phone] Social History Tobacco Use Types Packs/Day Years [...] Description 07/29/2025 8:30 AM EST Clinical Support [address] [address] Mere Rios, RN 08/05/2025 8:30 AM EST Clinical Support [address] [address] Mere Rios, RN 08/13/2025 9:00 AM EST Clinical Support [address] [address] Mere Rios, RN 08/19/2025 8:30 AM EST Clinical Support [address] [address] Mere Rios RN 08/23/2025 9:30 AM EST Office Visit [address] [address] Jill Boudreaux MD [address] [place] [address] documented as of this encounter Visit Diagnoses Not on filedocumented in this encounter Additional Health Concerns Assessment Noted Time PHQ-9 Depression Total Score: 0 08/24/19 23 2:33 PM EST documented as of this encounter Care Teams Library Science Professor Relationship Specialty Start Date End Date Zahraa Roca DO [address] [place] [address] PCP - General Family Medicine 07/25/18 Christian Soria FNP [address] [place] [address] Nurse Practitioner Family Medicine 06/24/23 documented as of this encounter
--- OUTSIDE RECORDS SUMMARY | 2025-07-22 18:10 | XMS_ITS | Encounter Summary ---
Author Organization [employer] Address 75 [facility] 7t [place] [address] Care Team Providers Care Quality Control Expert Name Role Phone Zahraa Roca DO Primary Care Provider + [phone] Christian Soria Unavailable Unavailable Reason for Visit * Reason Comments Med Refill Encounter Details Date Type Department Care Team ([facility] st Contact Info) Description 07/10/2025 Refill [facility] MEDICINE 230 [place], [place] [phone] Zahraa Roca DO 230 [place], [place] [phone] Anxiety Social History Tobacco Use Types Packs/Day [...] Description 07/29/2025 8:30 AM EST Clinical Support [address] [address] Mere Rios, HENRIK 08/05/2025 8:30 AM EST Clinical Support [address] [address] Mere Rios, HENRIK 08/13/2025 9:00 AM EST Clinical Support [address] [address] Mere Rios, HENRIK 08/19/2025 8:30 AM EST Clinical Support [address] [address] Mere Rios, HENRIK 08/23/2025 9:30 AM EST Office Visit [address] [address] Jill Boudreaux MD [address] [place] [address] documented as of this encounter Visit Diagnoses Diagnosis Anxiety Anxiety state, unspecified documented in this encounter Additional Health Concerns Assessment Noted Time PHQ-9 Depression Total Score: 16 025 3:09 PM EDT documented as of this encounter Care Teams Quality Control Expert Relationship Specialty Start Date End Date Zahraa Roca DO 230 [place] [address] PCP - General Family Medicine 07/25/18 Christian Soria FNP 230 [place] [address] Nurse Practitioner Family Medicine 06/24/23 documented as of this encounter
--- OUTSIDE RECORDS SUMMARY | 2025-07-22 18:10 | XMS_ITS | Encounter Summary ---
Author Organization [email or web address] Address [address] [facility] 7t [place] [address] Care Team Providers Care Probation And Patrol Agent Name Role Phone Abelino Zahraa Primary Care Provider [phone] Christian Soria Unavailable Unavailable Encounter Details Date Type Department Care Team (Late st Contact Info) Description 10/21/2022 Orders Only [facility] & PEDS [address] [place] [address] Zahraa Andino LPN Social History Tobacco Use [...] Description 07/29/2025 8:30 AM EST Clinical Support [address] [address] Mere Rios, RN 08/05/2025 8:30 AM EST Clinical Support [address] [address] Mere Rios, RN 08/13/2025 9:00 AM EST Clinical Support [address] [address] Mere Rios, RN 08/19/2025 8:30 AM EST Clinical Support [address] [address] Mere Rios RN 08/23/2025 9:30 AM EST Office Visit [facility] MEDICINE 230 [place] [address] Jill Boudreaux MD 230 [place] [address] documented as of this encounter Visit Diagnoses Not on filedocumented in this encounter Additional Health Concerns Assessment Noted Time PHQ-9 Depression Total Score: 0 08/24/19 23 2:33 PM EST documented as of this encounter Care Teams Probation And Patrol Agent Relationship Specialty Start Date End Date Zahraa Roca DO [address] [place] [address] PCP - General Family Medicine 07/25/18 Christian Soria FNP [address] [place] [address] Nurse Practitioner Family Medicine 06/24/23 documented as of this encounter
--- OUTSIDE RECORDS SUMMARY | 2025-07-22 18:10 | XMS_ITS | Encounter Summary ---
Author Organization [employer] Address [address] [place] [address] 7t [place] [address] Care Team Providers Care Assistant Plant Manager Name Role Phone YudiZahraa barahona Primary Care Provider [phone] Christian Soria Unavailable Unavailable Reason for Visit * Reason Comments Med Refill Encounter Details Date Type Department Care Team (Late st Contact Info) Description 12/31/2022 Refill [facility] MEDICINE [address] [place] [address] Christian Soria FNP Anxiety Social History Tobacco [...] Description 07/29/2025 8:30 AM EST Clinical Support [facility] MEDICINE [address] [place] [address] Mere Rios, HENRIK 08/05/2025 8:30 AM EST Clinical Support [facility] MEDICINE [address] [place] [address] Mere Rios, RN 08/13/2025 9:00 AM EST Clinical Support [facility] MEDICINE [address] [place] [address] Mere Rios, HENRIK 08/19/2025 8:30 AM EST Clinical Support [address] [address] Mere Rios RN 08/23/2025 9:30 AM EST Office Visit [address] [address] Jill Boudreaux MD [address] [place] [address] documented as of this encounter Visit Diagnoses Diagnosis Anxiety Anxiety state, unspecified documented in this encounter Additional Health Concerns Assessment Noted Time PHQ-9 Depression Total Score: 0 08/24/19 23 2:33 PM EST documented as of this encounter Care Teams Assistant Plant Manager Relationship Specialty Start Date End Date Zahraa Roca DO [address] [place] [address] PCP - General Family Medicine 07/25/18 Christian Soria FNP [address] [place] [address] Nurse Practitioner Family Medicine 06/24/23 documented as of this encounter
--- OUTSIDE RECORDS SUMMARY | 2025-07-22 18:10 | XMS_ITS | Encounter Summary ---
Author Organization [employer] Address [address] [facility] [address] 7t [place] [address] Care Team Providers Care Breaker Machine Operator Name Role Phone Abelino Zahraa Primary Care Provider + [phone] Christian Soria Unavailable Unavailable Encounter Details Date Type Department Care Team (Late st Contact Info) Description 11/03/2023 Orders Only [facility] MEDICINE 230 [place] [address] Provider, MD Hiral Social History Tobacco Use [...] Description 07/29/2025 8:30 AM EST Clinical Support [address] [address] Mere Rios, HENRIK 08/05/2025 8:30 AM EST Clinical Support [address] [address] Mere Rios, HENRIK 08/13/2025 9:00 AM EST Clinical Support [address] [address] Mere Rios, HENRIK 08/19/2025 8:30 AM EST Clinical Support [address] [address] Mere Rios, HENRIK 08/23/2025 9:30 AM EST Office Visit [address] [address] Jill Boudreaux MD [address] [place] [address] documented as of this encounter Procedures Procedure [...] documented as of this encounter Care Teams Breaker Machine Operator Relationship Specialty Start Date End Date Zahraa Roca DO [address] [place] [address] PCP - General Family Medicine 07/25/18 Christian Soria FNP [address] [place] [address] Nurse Practitioner Family Medicine 06/24/23 documented as of this encounter
--- OUTSIDE RECORDS SUMMARY | 2025-07-22 18:10 | XMS_ITS | Encounter Summary ---
Author Organization [employer] Address 75 [facility] 7t [place] [address] Care Team Providers Care Horse Stud Manager Name Role Phone Zahraa Roca DO Primary Care Provider [phone] Christian Soria Unavailable Unavailable Reason for Visit * Reason Onset Date Comments PT-1 07/13/2024 Encounter Details Date Type Department Care Team ([facility] st Contact Info) Description 07/13/2024 Telephone [facility] MEDICINE 230 [place], [place] [phone] Zahraa Roca DO 230 [place], [place] [phone] PT-1 Social History Tobacco Use Types Packs/Day [...] 07/29/2025 8:30 AM EST Clinical Support [address] [address] Mere Rios, HENRIK 08/05/2025 8:30 AM EST Clinical Support [address] [address] Mere Rios, RN 08/13/2025 9:00 AM EST Clinical Support [address] [address] Mere Rios, HENRIK 08/19/2025 8:30 AM EST Clinical Support [address] [address] Mere Rios, HENRIK 08/23/2025 9:30 AM EST Office Visit [address] [address] Jill Boudreaux MD [address] [place] [address] documented as of this encounter Visit Diagnoses Not on filedocumented in this encounter Additional Health Concerns Assessment Noted Time PHQ-9 Depression Total Score: 0 11/28/19 24 11:23 AM EDT documented as of this encounter Care Teams Horse Stud Manager Relationship Specialty Start Date End Date Zahraa Roca DO [address] [place] [address] PCP - General Family Medicine 07/25/18 Christian Soria FNP [address] [place] [address] Nurse Practitioner Family Medicine 06/24/23 documented as of this encounter
--- OUTSIDE RECORDS SUMMARY | 2025-07-22 18:10 | XMS_ITS | Encounter Summary ---
Author Organization [employer] Address [address] [place] [address] 7t [place] [address] Care Team Providers Care Filler Feeder Name Role Phone YudiZahraa barahona Primary Care Provider + [phone] Christian Soria Unavailable Unavailable Reason for Visit * Reason Comments Med Refill Encounter Details Date Type Department Care Team (Late st Contact Info) Description 12/19/2022 Refill [facility] MEDICINE [address] [place] [address] Christian Soria FNP Anxiety Social History Tobacco [...] Description 07/29/2025 8:30 AM EST Clinical Support [facility] MEDICINE [address] [place] [address] Mere Rios RN 08/05/2025 8:30 AM EST Clinical Support [facility] MEDICINE [address] [place] [address] Mere Rios, HENRIK 08/13/2025 9:00 AM EST Clinical Support [address] [address] Mere Rios, HENRIK 08/19/2025 8:30 AM EST Clinical Support [address] [address] Mere Rios, HENRIK 08/23/2025 9:30 AM EST Office Visit [address] [address] Jill Boudreaux MD [address] [place] [address] documented as of this encounter Visit Diagnoses Diagnosis Anxiety Anxiety state, unspecified documented in this encounter Additional Health Concerns Assessment Noted Time PHQ-9 Depression Total Score: 0 08/24/19 23 2:33 PM EST documented as of this encounter Care Teams Filler Feeder Relationship Specialty Start Date End Date Zahraa Roca DO [address] [place] [address] PCP - General Family Medicine 07/25/18 Christian Soria FNP [address] [place] [address] Nurse Practitioner Family Medicine 06/24/23 documented as of this encounter"
[2025-07-24 13:30] LABS: Alphahydroxymidazolam,GCMS Ur NEGATIVE; Alphahydroxytriazolam, GCMS Ur NEGATIVE; Alprazolam, GCMS Urine NEGATIVE; Aminoclonazepam, GCMS Urine NEGATIVE; Flurazepam Metabolite,GCMS Ur NEGATIVE; Lorazepam GCMS Urine NEGATIVE; Nordiazepam, GCMS Urine NEGATIVE; Oxazepam, GCMS Urine NEGATIVE; Temazepam, GCMS Urine NEGATIVE
== END 2025-07-22 17:36 | disposition home or self-care (01) ==
LOC: HO.LNP 17:35
PROVIDERS: Visit Provider Family Medicine
DX: Z79.899 Other long term (current) drug therapy (principal)
CPT/HCPCS: 80346